=== PATIENT | female | born 1990 | race Caucasian/White ===

== ENCOUNTER 2024-09-16 15:07 | Outpatient (REF) | payer BC, SELFPAY | END 2024-09-16 15:08 | disposition home or self-care (01) | LOC: LAB 15:07 | PROVIDERS: PCP Obstetrics & Gynecology; Visit Provider Obstetrics & Gynecology | DX: Z01.419 Encounter for gynecological examination (general) (routine) without abnormal findings (principal) | CPT/HCPCS: 88175 ==

== ENCOUNTER 2024-11-08 09:55 | Outpatient (OUT) | payer BC, SELFPAY ==
--- OUTSIDE RECORDS SUMMARY | 2024-11-08 10:05 | XMS_ITS | CCD ---
Author Organization [facility] Care Team Providers Care Inpatient Pharmacist Name Role Phone Helene HAMILTON Primary Care Physician DO William Yoder Admitting Unavailable Raman Russell Attending Unavailabl e [place], DONA Nuñez Attending Unavailable SIDELL, DONA Nuñez Attending Unavailable FELIPE, Kuldeep Jordan Attending Unavailable SPETTEL, Helene Granados Attending Unavailable SPETTEL, Helene Granados Attending Unavailable SPETTEL, Helene Granados Attending Unavailable SPETTEL, Helene Granados Attending Unavailable SPETTEL, Helene Granados Admitting Unavailable SPETTEL, Helene Granados Consulting Unavailable SPETTEL, Helene Granados Attending Unavailable REFERRAL, SELF Referring Unavailable SPETTEL, LAND RECLAMATION SPECIALIST Helene Granados Consulting Unavaila ble SPETTEL, Helene Granados Consulting Unavailable SPETTEL, Helene Granados Consulting Unavailable SPETTEL, Helene Granados Consulting Unavailable SPETTEL, Helene Granados Consulting Unavailable SPETTEL, Helene Granados Consulting Unavailable SPETTEL, Helene Grnaados Consulting Unavailable SPETTEL, Helene Granados Consulting Unavailable Unavailable Primary Care Provider UnavailMIK Geller Attending Unavailable MIK BORREGO Attending Unavailable Allergies Allergy Classification Reported Allergen(s) Allergy Type Date of Onset Reaction(s) Facility (12 sources) metFORMIN; Translations: [metformin] Drug Allergy 05-06-20 24 Rhabdomyolysis (disorder) [facility] (11 sources) Phentermine; Translations: [phentermine] Drug Allergy 09-16-20 24 Dyspnea (finding), Weal (disorder), Shortness of breath [facility] (1 source) No Known Medication Allergies; Translations: [No Known Medication Allergies] Propensity to adverse reactions (disorder) [facility] Repository (5 sources) dulaglutide Drug Allergy 05-06-20 Hives [facility] (5 sources) Sulfites Propensity to adverse reactions 05-06-20 [facility] (4 sources) metFORMIN Drug Allergy 09-16-20 [facility] Medications Current Medications Medication Drug Class(es) Dates Sig (Normalized) Sig (Original) [id number] 200 actuat albuterol 0.09 mg/actuat metered dose inhaler (8 sources) beta2-Adrenergic Agonist Start: 04-04-2024 albuterol HFA 90 mcg/act inhaler 04/04/2024 Active Start: 10-19-2021 take 1 dose by inhal ation every four hours ProAir HFA 90 mcg/inh inhalation aerosol 2 puff(s), Inhalation, q4hr for wheezing, 1 EA, Refill(s) 11, [facility] #[id number], 170, cm, 07/13/21 9:30:00 EDT, Height/Length Dosing, 88.5, kg, 07/13/21 9:30:00 EDT, Weight Dosing Start Date: 10/19/21 Status: Ordered albuterol HFA 90 mcg/inh MDI (2 sources) Start: 10-03-2022 take 2 puff(s) by inhalation every six hours for wheezing albuterol HFA 90 mcg/inh MDI 2 puff(s), Inhalation, q6hr for wheezing, 18 gram, Refill(s) 0, [facility] #[id number], 170, cm, 05/17/22 11:42:00 EDT, Height/Length Dosing, 95.1, kg, 05/17/22 11:42:00 EDT, Weight Dosing Start Date: 10/03/22 Status: Ordered Susy 24 Hour (6 sources) Start: 03-16-2021 Susy 24 Jennifer r See Instructions, 1 tab daily, Refills(s) 0 Start Date: 03/16/21 Status: Ordered 24 hr buPROPion hydrochloride 150 mg extended release oral tablet (6 sources) Aminoketone Start: 06-20-2022 take 1 tablet by mouth every twenty-four hours Wellbutrin XL 150 mg/24 hours Tab-ER 150 mg = 1 tab(s), Oral, q24hr, # 90 tab(s), Refills(s) 1, Pharmacy: [facility] #[id number], 170, cm, 05/17/22 11:42:00 EDT, Height/Length Dosing, 95.1, kg, 05/17/22 11:42:00 EDT, Weight Dosing Start Date: 06/20/22 Status: Ordered Start: 03-08-2022 take 1 tablet by volodymyr th every twenty-four hours Wellbutrin XL 150 mg/24 hours Tab-ER 150 mg = 1 tab(s), Oral, q24hr, # 30 tab(s), Refills(s) 2, Pharmacy: [facility] #[id number], 170, cm, 03/08/22 10:25:00 EDT, Height/Length Dosing, 98.4, kg, 03/08/22 10:25:00 EDT, Weight Dosing Start Date: 03/08/22 Status: Ordered Start: 03-08-2022 take 1 tablet by volodymyr th every twenty-four hours Wellbutrin XL 150 mg/24 hours Tab-ER 150 mg = 1 tab(s), Oral, q24hr, # 30 tab(s), Refills(s) 2, Pharmacy: [facility] #[id number], 170, cm, 03/08/22 10:25:00 EDT, Height/Length Dosing, 98.4, kg, 03/08/22 10:25:00 EDT, Weight Dosing Start Date: 03/08/22 Status: Ordered cetirizine hydrochloride 10 mg oral tablet (5 sources) Histamine-1 Receptor Antagonist cetirizine (ZyrTEC) 10 MG tablet Take by mouth Active melatonin 1 mg oral tablet (9 sources) Start: 0 take 1 tablet by mouth once daily at bedtime as needed melatonin 1 mg oral tablet 1 mg = 1 tab(s), Oral, Once a day (at bedtime), PRN for insomnia, # 90 tab(s), Refills(s) 0 Start Date: 10/20/20 Status: Ordered End: 09-16-2024 melatonin 5 MG tablet Take b y mouth 09/16/2024 Discontinued (Other) montelukast 10 mg oral tablet (6 sources) Leukotriene Receptor Antagonist Start: 10-03-2022 take 1 tablet by mouth once daily in the evening Singulair 10 mg Tab 10 mg = 1 tab(s), Oral, qPM, # 90 tab(s), Refills(s) 3, Pharmacy: [facility] #[id number], 170, cm, 05/17/22 11:42:00 EDT, Height/Length Dosing, 95.1, kg, 05/17/22 11:42:00 EDT, Weight Dosing Start Date: 10/03/22 Status: Ordered Start: 06-22-2021 take 1 tablet by volodymyr th once daily in the evening Singulair 10 mg Tab 10 mg = 1 tab(s), Oral, qPM, # 90 tab(s), Refills(s) 3, Pharmacy: [facility], 170, cm, 04/06/21 9:19:00 EDT, Height/Length Dosing, 90, kg, 04/06/21 9:19:00 EDT, Weight Dosing Start Date: 06/22/21 Status: Ordered naltrexone hydrochloride 50 mg oral tablet (5 sources) Opioid Antagonist Start: 04-12-2022 take 1 tablet by mouth once daily naltrexone 50 mg oral tablet See Instructions, 1 tablet daily, # 90 tab(s), Refills(s) 0, [id number], 170, cm, 04/12/22 11:02:00 EDT, Height/Length Dosing, 96.7, kg, 04/12/22 11:02:00 EDT, Weight Dosing Start Date: 04/12/22 Status: Ordered Non-Formulary Medication (6 sources) Start: 10-20-2020 Non-Formulary Medication Vitamin D 800 IU daily Start Date: 10/20/20 Status: Ordered Ovasitol (6 sources) Start: 10-20-2020 Ovasitol = 1 packet(s), Oral, BID, Refills(s) 0 Start Date: 10/20/20 Status: Ordered oxyCODONE hydrochloride 5 mg oral tablet (5 sources) Opioid Agonist Start: 05-12-2022 take 1 tablet by mouth every six hours as needed for pain oxyCODONE 5 mg Tab 5 mg = 1 tab(s), Oral, q6hr, PRN for pain, # 10 tab(s), Refills(s) 0, Pharmacy: [facility] #[id number], 170, cm, 05/11/22 22:56:00 EDT, Height/Length Dosing, 89, kg, 05/11/22 22:56:00 EDT, Weight Dosing Start Date: 05/12/22 Status: Ordered phentermine hydrochloride 37.5 mg oral tablet (1 source) Sympathomimetic Amine Anorectic Start: 03-08-2022 take 1 tablet by mouth once daily Adipex-P 37.5 mg Tab 37.5 mg = 1 tab(s), Oral, Daily, Adipex #1; OARRS reviewed; 30 days supply; DX E66.9, # 30 tab(s), Refills(s) 0, Pharmacy: [facility] #[id number], 170, cm, 03/08/22 10:25:00 EDT, Height/Length Dosing, 98.4, kg, 03/08/22 10:25:00 EDT, Weight Dosing Start Date: 03/08/22 Status: Ordered propranolol hydrochloride 40 mg oral tablet (2 sources) beta-Adrenergic Berto Start: 10-03-2022 propranolol 40 mg Tab Refills(s) 0 Start Date: 10/03/22 Status: Ordered 0.25 mg, 0.5 mg dose 1.5 ml semaglutide 1.34 mg/ml pen injector (5 sources) Start: 05-12-2022 inject 0.5 mg by subcutaneous injection every week Ozempic 2 mg/1.5 mL (0.25 mg or 0.5 mg dose) subcutaneous solution 0.5 mg, SubCutaneous, qWeek, 1 EA, Refill(s) 5, [id number], 170, cm, 05/11/22 22:56:00 EDT, Height/Length Dosing, 89, kg, 05/11/22 22:56:00 EDT, Weight Dosing Start Date: 05/12/22 Status: Ordered spironolactone 25 mg oral tablet (6 sources) Aldosterone Antagonist Start: 06-22-2021 take 1 tablet by mouth twice daily spironolactone 25 mg Tab 25 mg = 1 tab(s), Oral, BID, # 180 tab(s), Refills(s) 3, Pharmacy: [facility], 170, cm, 04/06/21 9:19:00 EDT, Height/Length Dosing, 90, kg, 04/06/21 9:19:00 EDT, Weight Dosing Start Date: 06/22/21 Status: Ordered valACYclovir 1000 mg oral tablet (6 sources) Herpesvirus Nucleoside Analog DNA Polymerase Inhibitor, Herpes Simplex Virus Nucleoside Analog DNA Polymerase Inhibitor, Herpes Zoster Virus Nucleoside Analog DNA Polymerase Inhibitor Start: 11-03-2020 take 1 tablet by mouth twice daily, then take 1 tablet by mouth every twelve hours Valtrex 1 g Tab 1 gm = 1 tab(s), Oral, BID, Take one at the start of cold sore and repeat in 12 hours, # 4 tab(s), Refills(s) 1, Pharmacy: [facility], 170, cm, 11/03/20 13:01:00 EST, Height/Length Dosing, 94.7, kg, 11/03/20 13:01:00 EST, Brandon... Start Date: 11/03/20 Status: Ordered Start: 11-03-2020 take 1 tablet by volodymyr th twice daily, then take 1 tablet by mouth every twelve hours Valtrex 1 g Tab 1 gm = 1 tab(s), Oral, BID, Take one at the start of cold sore and repeat in 12 hours, # 4 tab(s), Refills(s) 1, Pharmacy: [facility], 170, cm, 11/03/20 13:01:00 EST, Height/Length Dosing, 94.7, kg, 11/03/20 13:01:00 EST, Brandon... Start Date: 11/03/20 Status: Ordered Ventolin HFA 90 mcg/inh Aerosol (4 sources) Start: 10-18-2021 take 1 puff(s) by inhalation once for wheezing Ventolin HFA 90 mcg/inh Aerosol 1 puff(s), Inhalation, Once for wheezing, 6.7 gm, Refill(s) 2, [facility] #[id number], 170, cm, 07/13/21 9:30:00 EDT, Height/Length Dosing, 88.5, kg, 07/13/21 9:30:00 EDT, Weight Dosing Start Date: 10/18/21 Status: Ordered Vitamin B Complex oral tablet (6 sources) Start: 10-20-2020 take 1 tablet by mouth once daily Vitamin B Complex oral tablet 1 tab(s), Oral, Daily, Refill(s) 0 Start Date: 10/20/20 Status: Ordered Zofran ODT 4 mg Tab-Dis (6 sources) Start: 05-12-2022 take 1 tablet by mouth every eight hours as needed for nausea Zofran ODT 4 mg Tab-Dis 4 mg = 1 tab(s), Oral, q8hr, PRN Nausea/Vomiting, # 30 tab(s), Refills(s) 1, Pharmacy: [facility] #[id number], 170, cm, 05/11/22 22:56:00 EDT, Height/Length Dosing, 89, kg, 05/11/22 22:56:00 EDT, Weight Dosing Start Date: 05/12/22 Status: Ordered Start: 12-22-2021 take 1 tablet by volodymyr th every eight hours as needed for nausea Zofran ODT 4 mg Tab-Dis 4 mg = 1 tab(s), Oral, q8hr, PRN Nausea/Vomiting, # 12 tab(s), Refills(s) 0, Pharmacy: [facility] #[id number], 170, cm, 12/22/21 7:22:00 EST, Height/Length Dosing, 93.3, kg, 12/22/21 7:22:00 EST, Weight Dosing Start Date: 12/22/21 Status: Ordered Completed/Discontinued Medications Medication Drug Class(es) Dates Sig (Normalized) Sig (Original) ALPRAZolam 0.5 mg oral tablet (3 sources) Benzodiazepine Start: 04-30-2024 End: 09-16-2024 ALPRAZolam (Xanax) 0.5 MG tablet every 12 (twelve) hours 04/30/2024 09/16/2024 Discontinued (Other) fluconazole 150 mg oral tablet (4 sources) Azole Antifungal Start: 07-03-2022 Diflucan 150 mg Tab 150 mg = 1 tab(s), Oral, Once, Take 1 tab PO x 1 dose, may repeat in 72 hours for persistent symptoms, # 2 tab(s), Refills(s) 0, Prophylaxis, Pharmacy: [facility] #[id number], 170, cm, 05/17/22 11:42:00 EDT, Height/Length Dosing, 95.1, kg, ... Start Date: 07/03/22 Status: Ordered Inositol-D Chiro-Inositol (OVASITOL PO) (3 sources) End: 09-16-2024 Inositol-D Chiro-Inositol (OVASITOL PO) Take by mouth 09/16/2024 Discontinued (Other) Inositol-D Chiro -Inositol (OVASITOL PO) Take by mouth Active lisdexamfetamine dimesylate 50 mg oral capsule (5 sources) Central Nervous System Stimulant Start: 04-22-2024 End: 09-16-2024 take 1 capsule by mouth once daily Vyvanse 50 MG capsule Take 50 mg by mouth 1 (one) time each day at the same time 04/22/2024 09/16/2024 Discontinued (Other) Start: 10-03-2022 take 1 capsule by mo ut once daily in the morning Vyvanse 50 mg oral capsule 50 mg, 1 cap(s), Oral, qAM, Refill(s) 0 Start Date: 10/03/22 Status: Ordered ProAir HFA 90 mcg/inh inhalation aerosol (1 source) Start: 10-19-2021 take 1 dose by inhalation every four hours ProAir HFA 90 mcg/inh inhalation aerosol 2 puff(s), Inhalation, q4hr for wheezing, 1 EA, Refill(s) [address] [place] [address] [facility] #[id number], 170, cm, 07/13/21 9:30:00 EDT, Height/Length Dosing, 88.5, kg, 07/13/21 9:30:00 EDT, Weight Dosing Start Date: 10/19/21 Status: Ordered Problems Active Problems Problem Classification Problem Date Documented Date Episodic/Chronic Abdominal pain (4 sources) Abdominal pain; Translations: [Unspecified abdominal pain] Onset: 05-12-2022 Episodic Administrative/social admission (1 source) Patient encounter status; Translations: [Persons encountering health services in other specified circumstances] Onset: 03-08-2022 Episodic Allergic reactions (20 sources) Allergic condition; Translations: [Hypersensitivity disposition] 04-06-2021 Episodic Anxiety disorders (6 sources) Anxiety 10-20-2020 Chronic Diabetes mellitus without complication (6 sources) Prediabetes 11-03-2020 Episodic Diseases of white blood cells (1 source) Leukocytosis; Translations: [Elevated white blood cell count, unspecified] Onset: 05-12-2022 Chronic Disorders of lipid metabolism (6 sources) Hyperlipidemia 11-03-2020 Chronic Menstrual disorders (4 sources) Secondary dysmenorrhea; 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] Onset: 10-03-2022 10-03-2022 Chronic Mood disorders (6 sources) Depressive disorder 10-20-2020 Chronic Nausea and vomiting (3 sources) Nausea and vomiting; Translations: [Nausea with vomiting, unspecified] Onset: 10-03-2022 10-03-2022 Episodic Nutritional deficiencies (6 sources) Vitamin D deficiency 01-28-2021 Chronic Other aftercare (1 source) Long-term current use of drug therapy; Translations: [Other mcfp (current) drug therapy] Onset: 03-08-2022 Episodic Other aftercare (4 sources) Postoperative visit 05-17-2022 Episodic Other endocrine disorders (8 sources) Polycystic ovary syndrome; Translations: [Polycystic ovarian syndrome] Onset: 03-08-2022 Chronic Other endocrine disorders (6 sources) Polycystic ovaries 06-19-2019 Chronic Other nutritional; endocrine; and metabolic disorders (1 source) Obese class I; Translations: [Body mass index (BMI) 34.0-34.9, adult] Onset: 03-08-2022 Chronic Other nutritional; endocrine; and metabolic disorders (20 sources) Obesity; Translations: [Obesity, unspecified] Onset: 03-08-2022 Chronic Other nutritional; endocrine; and metabolic disorders (20 sources) Body mass index 30+ - obesity 11-03-2020 Chronic Other and delivery including normal (2 sources) ; Translations: [Encounter for supervision of normal , unspecified, unspecified trimester] 10-24-2024 Episodic Residual codes; unclassified (1 source) Gestation period, 7 weeks; Translations: [Less than 8 weeks gestation of ] 10-24-2024 Episodic Unclassified (6 sources) Drug therapy finding 11-03-2020 Unclassified (6 sources) Patient encounter status 11-03-2020 Viral infection (6 sources) 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 Episodic Past or Other Problems Problem Classification Problem Date Documented Da te Episodic/Chronic Viral infection (1 source) Disease caused by 2019-nCoV; Translations: [COVID-19] Results Test Name Value Interpretation Reference Range Facility HCG ( test) Ql (U)o n 10-24-2024 Interpretation and review of laboratory results Abnormal [facility] Preg Test, Ur Positive Negative formerly [facility] OB TRANSVAGINALon 025 US OB TRANSVAGINAL TITLE OF EXAM: US OB TRANSVAGINAL REASON FOR EXAM: Dating TECHNIQUE: Grayscale, color, and M-mode spectral Doppler evaluation of the pelvis/fetus. COMPARISON: None. PATIENT : 1990 PREGNANCIES: : 1, Para: 0, Aborta: 0 LMP: 08/23/2024 VIJAYA by LMP: 05/30/2025 GA by LMP: 8 weeks, 6 days FINDINGS: AUA: 7 weeks, 0 days (+/-4 days) VIJAYA by US: 06/12/2025 Uterus: There is a gestational sac and 0.3 cm yolk sac within the uterine body/fundus. Live embryo within the gestational sac without evident abnormality. Gestational sac measures 2.4 x 1.7 x 2.5 cm (6 weeks, 5 days). Cuevitas rump length is 0.9 cm (7 weeks, 0 days). heart rate is 166 bpm. No appreciable subchorionic hemorrhage or other abnormality. Cervical length 4.7 cm. No evidence of cervical funneling. Right ovary: 3.3 x 2.2 x 3.1 cm (volume 12.2 mL). Present color flow. No appreciable nodule/mass. Left ovary: 4.3 x 3.6 x 4.3 cm (volume of 34.4 mL). Present color flow. Anechoic, avascular, thin-walled cyst measures 3.2 x 2.6 x 2.7 cm. IMPRESSION: 1. Single live intrauterine gestation sonographically measuring 7 weeks, 0 days. No appreciable abnormality. 2. Benign-appearing left ovarian cyst, 3.2 cm. DICTATED ON: 10/24/2024 2:36 PM This report has been electronically signed and approved by the interpreting radiologist. Normal Not Available Urinalysis macro (dipstick) panel (U)on 10-24-2024 Bilirubin, UA Negative Negative - 4(70) +++ mg/dL [facility] Blood, UA Negative Negative - 50 Albin/mcL [facility] Clarity, UA Clear [facility] Color, UA Yellow [facility] Glucose, UA Negative Negative - 1999(110) ++++ mg/dL [facility] Interpretation and review of laboratory results Normal [facility] Ketones, UA Negative Negative - 160(16) ++++ mg/dL [facility] Leukocytes, UA Negative Negative - 500+++ Jack/mcL [facility] Nitrite, UA Negative Negative - Positive [facility] pH, UA 6 5 - 9 [facility] Protein, UA Negative Negative - 1999(20) ++++ mg/dL [facility] Spec Grav, UA 1.015 1 - 1.03 [facility] Urobilinogen, UA 0.2 0.2 - 12 mg/dL [facility] IGP,APTIMA HPV,AGE GDLNon AGE GDLN ACOG TESTING Note . [facility] Comment on above: TESTS RESULT FLAG UN ITS REF RANGE LAB Clinician Provided Cytology Information Source.............Cervix No. of containers..01 ThinPrep Vial Age Algo ACOG Yumiko... 30-65 01 FLAG LEGEND: L-Low Normal,H-High Normal,LL-Alert Low,HH-Alert High <-Panic Low,>-Panic High,A-Abnormal,AA-Critical Abnormal Performed at: 01 =[address] [address] Nina Julien MD, HPV APTIMA Negative Negative [facility] Comment on above: This nucleic acid am plification test detects fourteen high- risk HPV types (16,18,31,33,35,39,45,51,52,56,58,59,66,68) without differentiation. Performed at: = - [facility] [id number] Automation Machine Builder: Nina Julien MD, Phone: [phone] Performed at: - [facility] [id number] Automation Machine Builder: Nina Julien MD, Phone: [phone] IGP, APTIMA HPV, RFX 16/18,45 Note . [facility] Comment on above: TESTS RESULT FLAG UN ITS REF RANGE LAB DIAGNOSIS: 02 NEGATIVE FOR INTRAEPITHELIAL LESION OR MALIGNANCY. THIS SPECIMEN WAS RESCREENED PART OF OUR SPIN INSTRUCTOR PROGRAM. Specimen adequacy: 02 Satisfactory for evaluation. Endocervical and/or squamous metaplastic cells (endocervical component) are present. Performed by: Fazal Collins, Waste Reduction Coordinator (ASCP) QC reviewed by: Fazal Coyne, Waste Reduction Coordinator (ASCP) . 02 Note: Note 02 The Pap smear is a screening test designed to aid in the detection of premalignant and malignant conditions of the uterine cervix. It is not a diagnostic procedure and should not be used as the sole means of detecting cervical cancer. Both false-positive and false-negative reports do occur. Test Methodology: Note 02 This liquid based ThinPrep(R) pap test was screened with the use of an image guided system. HPV Genotype Reflex Note 02 Criteria not met, HPV Genotype not performed. FLAG LEGEND: L-Low Normal,H-High Normal,LL-Alert Low,HH-Alert High <-Panic Low,>-Panic High,A-Abnormal,AA-Critical Abnormal Performed at: [address] [address] Nina Julien MD, SWAB-SPATULA CERVIX [facility] Pre-Certification Formon Pre-Certification Form [id number] #1.00CD:127 [facility] Pre-Certification Formon Pre-Certification Form [id number] #1.00CD:127 [facility] Pre-Certification Formon Pre-Certification Form [id number] #1.00CD:127 [facility] Pre-Certification Formon Pre-Certification Form [id number] #1.00CD:127 [facility] Medicine Video Visit - Telehealth 10-20-2022 Family Medicine Video Visit - Telehealth [facility] Staff Julissa is a 31 year old female who presents for History of Present Illness Julissa Weems presents today via telehealth video visit to discuss FMLA paperwork as patient does have chronic history of PCOS, has been having intermittent issues with severe dysmenorrhea and pelvic pain that occurs intermittently with her cycle. Patient has been to the ER on multiple occasions for symptoms and has been treated for her pain and is also had imaging that demonstrated ovarian cyst. She also does experience nausea and vomiting and at times abdominal pain with her symptoms. During these times of exacerbation with severe pain, patient has been required to miss multiple days of work which will require her to have FMLA paperwork filled out. Patient denies any symptoms or concerns today. Her last episode/flareup with pelvic pain/dysmenorrhea with PCOS was 09/27/2022 through 09/28/2022. Patient was able to return to work after using over the counter NSAIDs and resting for pain control on 09/29/2022. Patient denies any other symptoms or concerns during video visit today. I have reviewed and verified the staff HPI to be accurate for this encounter. Review of Systems Constitutional: No fever, no chills, no sweats, no weakness Skin: No rash, no lesions, no petechiae Respiratory: No chest discomfort, no shortness of breath, no cough, no orthopnea, no wheezing Cardiovascular: No chest pain no, no palpitations, no edema Gastrointestinal: Positive for dysmenorrhea/abdomin al pain/cramping, nausea and vomiting with flareups of exacerbations of PCOS . Genitourinary: No dysuria, no hematuria, no discharge, no urinary frequency, no urinary urgency Musculoskeletal: No back pain, no trauma Neurologic: No headache, no dizziness, no numbness/tingling, no weakness Physical Exam General: Well developed, well nourished, in no acute distress Lungs: No respiratory distress. No conversational dyspnea. Normal respiratory rate and effort with no accessory muscle usage. Mental Status: Alert and oriented x3. Normal mood and affect Assessment/Plan 1. PCOS Continue on all medications as prescribed. We will fill out patient's FMLA paperwork for acute flareups of PCOS with symptoms of secondary dysmenorrhea/pelvic pain and persistent nausea and vomiting during these times. Not currently having the symptoms. Return to work on 09/29/2022. We will continue to monitor and notify provider when and if symptoms return. Patient verbalized understanding of treatment plan. Denies any further questions or concerns. 2. Dysmenorrhea See treatment plan above. 3. Pelvic pain in female See treatment plan above. 4. Nausea and vomiting in adult See treatment plan above. ATTESTATION Documentation services were performed after patient or guardian consented to allow Keren Ángel Causey to record this visit. MEERA diagnostic sales specialist and provider reviewed before signing. MEERA: Rocío Garza Follow-up No qualifying data available Problem List/Past Medical History Ongoing Adult BMI 32.0-32.9 kg/sq m Allergies Anxiety Body mass index 32.0-32.9, adult Cold sore Depression Encounter for weight management High risk medication use History of appendectomy Hives Hyperlipidemia Hypersensitivity Nausea and vomiting in adult Obesity PCOS (polycystic ovarian syndrome) Pelvic pain in female Postoperative visit Prediabetes Secondary dysmenorrhea Urticaria multiforme Vitamin D deficiency Historical Adult BMI 30.0-30.9 kg/sq m Adult BMI 31.0-31.9 kg/sq m Adult BMI 33.0-33.9 kg/sq m Adult BMI 34.0-34.9 kg/sq m Body mass index 34.0-34.9, adult Class 1 obesity with body mass index (BMI) of 30.0 to 30.9 in adult Class 1 obesity with body mass index (BMI) of 31.0 to 31.9 in adult Class 1 obesity with body mass index (BMI) of 32.0 to 32.9 in adult Class 1 obesity with body mass index (BMI) of 33.0 to 33.9 in adult PCOS - Polycystic ovarian syndrome Procedure/Surgical History Laparoscopic appendectomy (05/12/2022), None. Medications albuterol HFA 90 mcg/inh MDI, 2 puff(s), Inhalation, q6hr, PRN Susy 24 Hour, See Instructions Diflucan 150 mg Tab, 150 mg= 1 tab(s), Oral, Once, Not taking melatonin 1 mg oral tablet, 1 mg= 1 tab(s), Oral, Once a day (at bedtime), PRN naltrexone 50 mg oral tablet, See Instructions, Not taking Non-Formulary Medication Ovasitol, 1 packet(s), Oral, BID, Not taking oxyCODONE 5 mg Tab, 5 mg= 1 tab(s), Oral, q6hr, PRN, Not taking Ozempic 2 mg/1.5 mL (0.25 mg or 0.5 mg dose) subcutaneous solution, 0.5 mg, SubCutaneous, qWeek, 5 refills, Not taking propranolol 40 mg Tab Singulair 10 mg Tab, 10 mg= 1 tab(s), Oral, qPM, 3 refills spironolactone 25 mg Tab, 25 mg= 1 tab(s), Oral, BID, 3 refills Valtrex 1 g Tab, 1 gm= 1 tab(s), Oral, BID, 1 refills Vitamin B Complex oral tablet, 1 tab(s), Oral, Daily Vyvanse 50 mg oral capsule, 50 mg= 1 cap(s), Oral, qAM Wellbutrin XL 150 mg/24 hours Tab-ER, 150 mg= 1 t (more content not included)... Normal [facility] Comment on above: Result Comment: Elec tronically Signed By: WASHINGTON CONNER, DONA Nuñez\.br\Date and Time Signed: 10/19/22 22:08 EST [employer] 10-10-2022 Forms [id number] #[id number] Normal [facility] Ambulatory Visit Summaryon 1 12-04-2021 Ambulatory Visit Summary JULISSA WEEMS :1990 Visit Date:10/03/2022 Ambulatory Visit Instructions Your Diagnosis PCOS (polycystic ovarian syndrome) Your Care Team Attending Physician - DONA DELAROSA CNP Primary Care Physician - Helene HAMILTON CNP This Is Your Medications List albuterol (albuterol HFA 90 mcg/inh MDI) Contact prescribing physician if questions or concerns Non-Formulary Medication buPROPion (Wellbutrin XL 150 mg/24 hours Tab-ER) fexofenadine (Susy 24 Hour) fluconazole (Diflucan 150 mg Tab) inositol (Ovasitol) lisdexamfetamine (Vyvanse 50 mg oral capsule) melatonin (melatonin 1 mg oral tablet) montelukast (Singulair 10 mg Tab) multivitamin (Vitamin B Complex oral tablet) naltrexone (naltrexone 50 mg oral tablet) ondansetron (Zofran ODT 4 mg Tab-Dis) oxycodone (oxyCODONE 5 mg Tab) propranolol (propranolol 40 mg Tab) semaglutide (Ozempic 2 mg/1.5 mL (0.25 mg or 0.5 mg dose) subcutaneous solution) spironolactone (spironolactone 25 mg Tab) valacyclovir (Valtrex 1 g Tab) Procedures Performed Laparoscopic appendectomy (05/12/2022), None. Medications What How Much When Instructions Changed albuterol (albuterol HFA 90 mcg/ inh MDI) 2 Puffs Inhalation Every 6 hours as needed for for wheezing Pickup at [id number] Unchanged buPROPion (Wellbutrin XL 150 mg/ 24 hours Tab-ER) 1 Tablets By Mouth Every 24 hours Contact prescribing physician if questions or concerns Unchanged fexofenadine (Susy 24 Hour) See instructions 1 tab daily Contact prescribing physician if questions or concerns Unchanged fluconazole (Diflucan 150 mg Tab) 1 Tablets By Mouth Once Take 1 tab PO x 1 dose, may repeat in 72 hours for persistent symptoms Contact prescribing physician if questions or concerns Unchanged inositol (Ovasitol) 1 Packets By Mouth 2 times a day Contact prescribing physician if questions or concerns Unchanged lisdexamfetamine (Vyvanse 50 mg oral capsule) 1 Capsules By Mouth Once a day (in the morning) Contact prescribing physician if questions or concerns Unchanged melatonin (melatonin 1 mg oral tablet) 1 Tablets By Mouth Once a day (at bedtime) as needed for for insomnia Contact prescribing physician if questions or concerns Unchanged montelukast (Singulair 10 mg Tab) 1 Tablets By Mouth Once a day (in the evening) Contact prescribing physician if questions or concerns Unchanged multivitamin (Vitamin B Complex oral tablet) 1 Tablets By Mouth Every day Contact prescribing physician if questions or concerns Unchanged naltrexone (naltrexone 50 mg oral tablet) See instructions 1 tablet daily Contact prescribing physician if questions or concerns Unchanged Non-Formulary Medication Vitamin D 800 IU daily Contact prescribing physician if questions or concerns Unchanged ondansetron (Zofran ODT 4 mg Tab-Dis) 1 Tablets By Mouth Every 8 hours as needed for Nausea/Vomiting Contact prescribing physician if questions or concerns Unchanged oxycodone (oxyCODONE 5 mg Tab) 1 Tablets By Mouth Every 6 hours as needed for for pain Contact prescribing physician if questions or concerns Unchanged propranolol (propranolol 40 mg Tab) Contact prescribing physician if questions or concerns Unchanged semaglutide (Ozempic 2 mg/ 1.5 mL (0.25 mg or 0.5 mg dose) subcutaneous solution) 0.5 Milligram Subcutaneous Every week Contact prescribing physician if questions or concerns Unchanged spironolactone (spironolactone 25 mg Tab) 1 Tablets By Mouth 2 times a day Contact prescribing physician if questions or concerns Unchanged valacyclovir (Valtrex 1 g Tab) 1 Tablets By Mouth 2 times a day Take one at the start of cold sore and repeat in 12 hours Contact prescribing physician if questions or concerns Pharmacy Information [facility] #[id number]: [address] [place], [place] [id number] [phone] Allergies metFORMIN (Rhabdomyolysis) Adipex-P (Shortness of breath, Hives) Problems Ongoing - Any problem that you are currently receiving treatment for. Adult BMI 32.0-32.9 kg/sq m Allergies Anxiety Body mass index 32.0-32.9, adult Cold sore Depression Encounter for weight management High risk medication use History of appendectomy Hives Hyperlipidemia Hypersensitivity Obesity PCOS (polycystic ovarian syndrome) Postoperative visit Prediabetes Urticaria multiforme Vitamin D deficiency Historical - Any problem that you are no longer receiving treatment for. Adult BMI 30.0-30.9 kg/sq m Adult BMI 31.0-31.9 kg/sq m Adult BMI 33.0-33.9 kg/sq m Adult BMI 34.0-34.9 kg/sq m Body mass index 34.0-34.9, adult Class 1 obesity with body mass index (BMI) of 30.0 to 30.9 in adult Class 1 obesity with body mass index (BMI) of 31.0 to 31.9 in adult Class 1 obesity with body mass index (BMI) of 32.0 to 32.9 in adult Class 1 obesity with body mass index (BMI) of 33.0 to 33.9 in adult PCOS - Polycystic ovarian syndrome [facility] Patient Educationon 10-03-20 Patient Education Gastroenterology Nausea and Vomiting, Adult Nausea is the feeling that you have an upset stomach or that you are about to vomit. Vomiting is when stomach contents are thrown up and out of the mouth as a result of nausea. Vomiting can make you feel weak and cause you to become dehydrated. Dehydration can make you feel tired and thirsty, cause you to have a dry mouth, and decrease how often you urinate. Older adults and people with other diseases or a weak disease-fighting system (immune system) are at higher risk for dehydration. It is important to treat your nausea and vomiting as told by your health care provider. Follow these instructions at home: Watch your symptoms for any changes. Tell your health care provider about them. Follow these instructions to care for yourself at home. Eating and drinking ? Take an oral rehydration solution (ORS). This is a drink that is sold at pharmacies and retail stores. ? Drink clear fluids slowly and in small amounts as you are able. Clear fluids include water, ice chips, low-calorie sports drinks, and fruit juice that has water added (diluted fruit juice). ? Eat bland, jklg-ce-laccqd foods in small amounts as you are able. These foods include bananas, applesauce, rice, lean meats, toast, and crackers. ? Avoid fluids that contain a lot of sugar or caffeine, such as energy drinks, sports drinks, and soda. ? Avoid alcohol. ? Avoid spicy or fatty foods. General instructions ? Take iinb-vdf-gpwkhob and prescription medicines only as told by your health care provider. ? Drink enough fluid to keep your urine pale yellow. ? Wash your hands often using soap and water. If soap and water are not available, use hand gericare aide teacher. ? Make sure that all people in your household wash their hands well and often. ? Rest at home while you recover. ? Watch your condition for any changes. ? Breathe slowly and deeply when you feel nauseated. ? Keep all follow-up visits as told by your health care provider. This is important. Contact a health care provider if: ? Your symptoms get worse. ? You have new symptoms. ? You have a fever. ? You cannot drink fluids without vomiting. ? Your nausea does not go away after 2 days. ? You feel light-headed or dizzy. ? You have a headache. ? You have muscle cramps. ? You have a rash. ? You have pain while urinating. Get help right away if: ? You have pain in your chest, neck, arm, or jaw. ? You feel extremely weak or you faint. ? You have persistent vomiting. ? You have vomit that is bright red or looks like black coffee grounds. ? You have bloody or black stools or stools that look like tar. ? You have a severe headache, a stiff neck, or both. ? You have severe pain, cramping, or bloating in your abdomen. ? You have difficulty breathing, or you are breathing very quickly. ? Your heart is beating very quickly. ? Your skin feels cold and clammy. ? You feel confused. ? You have signs of dehydration, such as: ? Dark urine, very little urine, or no urine. ? Cracked lips. ? Dry mouth. ? Sunken eyes. ? Sleepiness. ? Weakness. These symptoms may represent a serious problem that is an emergency. Do not wait to see if the symptoms will go away. Get medical help right away. Call your local emergency services (911 in the [place] Do not drive yourself to the hospital. Summary ? Nausea is the feeling that you have an upset stomach or that you are about to vomit. As nausea gets worse, it can lead to vomiting. Vomiting can make you feel weak and cause you to become dehydrated. ? Follow instructions from your health care provider about eating and drinking to prevent dehydration. ? Take qkhb-lpa-hetzzvi and prescription medicines only as told by your health care provider. ? Contact your health care provider if your symptoms get worse, or you have new symptoms. ? Keep all follow-up visits as told by your health care provider. This is important. This information is not intended to replace advice given to you by your health care provider. Make sure you discuss any questions you have with your health care provider. Document Released: 10/09/2006 Document Revised: 01/31/2020 Document Reviewed: 03/19/2019 [employer] Patient Education ? 2019 [employer]. Obstetrics and Gynecology Dysmenorrhea Dysmenorrhea refers to cramps caused by the muscles of the uterus tightening (giuliana) during a menstrual period. Dysmenorrhea may be mild, or it may be severe enough to interfere with everyday activities for a few days each month. Primary dysmenorrhea is menstrual cramps that last a couple of days when you start having menstrual periods or soon after. This often begins after a teenager starts having her period. As a woman gets older or has a baby, the cramps will usually lessen or disappear. Secondary dysmenorrhea begins later in life and is caused by a dis (more content not included)... Normal [facility] Progress Note-Physicianon Progress Note-Physician Patient: JULISSA WEEMS Age: 31 years Sex: Female : 1990 Associated Diagnoses: None Author: Wiliam Diaz Jr., DO Postoperative Information Post Operative Note: Post Anesthesia Care Unit. Anesthetic utilized: General. Health Status Allergies: Allergic Reactions (Selected) Severity Not Documented Adipex-P- Hives and shortness of breath. Nonallergic Reactions (Selected) Severe MetFORMIN- Rhabdomyolysis. Problem list: All Problems Adult BMI 32.0-32.9 kg/sq m / SNOMED CT 994299672 / Confirmed Allergies / SNOMED CT 6110273950 / Confirmed Anxiety / SNOMED CT 62938724 / Confirmed Body mass index 32.0-32.9, adult / SNOMED CT 541861337 / Confirmed Cold sore / SNOMED CT 2873032 / Confirmed Depression / SNOMED CT 49459742 / Confirmed Encounter for weight management / SNOMED CT 922157489 / Confirmed High risk medication use / SNOMED CT 196309501 / Confirmed History of appendectomy / SNOMED CT 6402916934 / Confirmed Hives / SNOMED CT 42966470 / Confirmed Hyperlipidemia / SNOMED CT 25708070 / Confirmed Hypersensitivity / SNOMED CT 0049020354 / Confirmed Obesity / SNOMED CT 5729875432 / Confirmed PCOS (polycystic ovarian syndrome) / SNOMED CT 341844973 / Confirmed Postoperative visit / SNOMED CT 084150512 / Confirmed Prediabetes / SNOMED CT 1559552823 / Confirmed Urticaria multiforme / SNOMED CT 67646176 / Confirmed Vitamin D deficiency / SNOMED CT 73706612 / Confirmed Resolved: Adult BMI 30.0-30.9 kg/sq m / SNOMED CT 747176540 Resolved: Adult BMI 31.0-31.9 kg/sq m / SNOMED CT 172652059 Resolved: Adult BMI 33.0-33.9 kg/sq m / SNOMED CT 518214145 Resolved: Adult BMI 34.0-34.9 kg/sq m / SNOMED CT 798981657 Resolved: Body mass index 34.0-34.9, adult / SNOMED CT 866536206 Resolved: Class 1 obesity with body mass index (BMI) of 30.0 to 30.9 in adult / SNOMED CT 8361681745 Resolved: Class 1 obesity with body mass index (BMI) of 31.0 to 31.9 in adult / SNOMED CT 5046055035 Resolved: Class 1 obesity with body mass index (BMI) of 32.0 to 32.9 in adult / SNOMED CT 5640880341 Resolved: Class 1 obesity with body mass index (BMI) of 33.0 to 33.9 in adult / SNOMED CT 7319917534 Resolved: PCOS - Polycystic ovarian syndrome / SNOMED CT 250481619 Canceled: Adult BMI 37.0-37.9 kg/sq m / SNOMED CT 874306741 Physical Examination Vital Signs 05/12/2022 12:45 EDT Heart Rate Monitored 86 bpm Respiratory Rate Monitored 17 br/min Systolic Blood Pressure 123 mmHg Diastolic Blood Pressure 81 mmHg Mean Arterial Pressure, Cuff 95 mmHg SpO2 96 % 05/12/2022 12:30 EDT Heart Rate Monitored 104 bpm HI Respiratory Rate Monitored 16 br/min Systolic Blood Pressure 135 mmHg Diastolic Blood Pressure 82 mmHg Mean Arterial Pressure, Cuff 100 mmHg SpO2 99 % 05/12/2022 12:20 EDT Heart Rate Monitored 93 bpm Respiratory Rate Monitored 14 br/min Systolic Blood Pressure 134 mmHg Diastolic Blood Pressure 82 mmHg Mean Arterial Pressure, Cuff 99 mmHg SpO2 93 % 05/12/2022 12:10 EDT Heart Rate Monitored 101 bpm HI Respiratory Rate Monitored 27 br/min Systolic Blood Pressure 132 mmHg Diastolic Blood Pressure 75 mmHg Mean Arterial Pressure, Cuff 94 mmHg SpO2 87 % LOW 05/12/2022 12:05 EDT Heart Rate Monitored 116 bpm HI Respiratory Rate Monitored 19 br/min Systolic Blood Pressure 134 mmHg Diastolic Blood Pressure 72 mmHg Mean Arterial Pressure, Cuff 93 mmHg SpO2 94 % 05/12/2022 12:00 EDT Heart Rate Monitored 111 bpm HI Respiratory Rate Monitored 15 br/min Systolic Blood Pressure 129 mmHg Diastolic Blood Pressure 86 mmHg Mean Arterial Pressure, Cuff 100 mmHg SpO2 99 % 05/12/2022 11:56 EDT Temperature Axillary 36.7 DegC Heart Rate Monitored 113 bpm HI Respiratory Rate Monitored 29 br/min Systolic Blood Pressure 129 mmHg Diastolic Blood Pressure 86 mmHg Mean Arterial Pressure, Cuff 100 mmHg SpO2 98 % Pain assessment: Pain Assessment 05/12/2022 12:45 EDT Primary Pain Location Abdomen Patient Preferred Pain Tool Numeric rating Numeric Pain Scale 3 Numeric Pain Score 3 05/12/2022 12:44 EDT Primary Pain Location Abdomen Patient Preferred Pain Tool Numeric rating Numeric Pain Scale 3 Numeric Pain Score 3 05/12/2022 12:40 EDT Primary Pain Location Abdomen Patient Preferred Pain Tool Numeric rating Numeric Pain Scale 4 Numeric Pain Score 4 05/12/2022 12:36 EDT Primary Pain Location Abdomen Patient Preferred Pain Tool Numeric rating Numeric Pain Scale 7 Numeric Pain Score 7 05/12/2022 11:56 EDT Primary Pain Location Abdomen Patient Preferred Pain Tool Numeric rating Numeric Pain Scale 7 Numeric Pain Score 7 . General: Alert and oriented, No acute distress, No nausea. Adequate hydration.. Respiratory: Adequate air exchange.. Cardiovascular: stable. Neurologic: Normal sensory. Review / Management Condition: Stable. Assessment Anesthetic outcome No anesthetic complications noted. Plan Transfer/ Discharge: Cond (more content not included)... Normal [facility] Comment on above: Result Comment: Elec tronically Signed By: Wiliam Diaz Jr., DO\.aditya\Date and Time Signed: 06/06/22 16:49 EDT COVID-19 ([facility])on 06-02-2022 SARS-CoV-2 (COVID-19) RNA DANA+probe Ql (Resp) Detected Abnormal Not Detected [facility] Comment on above: Result Comment: This test result should be correlated with clinical presentations and medical history by a healthcare provider to determine its clinical significance. This assay was performed by a reverse transcriptase real-time polymerase chain reaction (rt PCR) method on the [employer] system. This test has been authorized only for the detection of nucleic acid from SARS-CoV-2, not for any other viruses or pathogens. This test has not been FDA cleared or approved. This test has been authorized by FDA under an Emergency Use Authorization (EUA). This test is only authorized for the duration of time the declaration on that circumstances exist justifying the authorization emergency use of in vitro diagnostic tests for detection and/or diagnosis of COVID-19 infection under section 564 (b) (1) of the Act, 21 U.S.C. 360 bbb-3 (b) (1), unless authorization is terminated or revoked sooner. Performed By: #### 2 [id number] ####[facility] [id number] [place] [address] SARS-CoV-2 (COVID-19) RNA DANA+probe Ql (Unsp spec) Pass Normal Pass [facility] Comment on above: Performed By: #### 2 [id number] ####[facility] [address] [place] [address] Specimen source Nom (Unsp spec) Nasal Normal [facility] Comment on above: Performed By: #### 2 [id number] ####[facility] [address] [place] [address] Coding Summary.on 06-02-2022 Coding Summary. [id number] Gh0bWw+PGhlYWQ+PE1FV OOqK80znUKyfU3KO2gPK A2IGPQKWZAJFV8GPU4my IV7XMdrO2TplfAx VifyzEJbJF81KHn9YYB0 kZyvJDdvmG8ktZNmT1e5 NfWiJX91iX84LUkqZSLb MqL7DhEuildrgBSx H4gbBoMjzZIgOby+PHRh YmxlIHdpZHRoPScxMDAl SiUmwVaiSG4kWr4yEGYj LWNvbGxhcHNlOiBj i8xfBANeMSgwZX4vtSmo W9KcsPP1CGHsa1b7Jb06 dHI+OQBwZLQ1hEjuRUek c610PdHjf5dmPFB7 aDDgULjeNKT6Y89cc3E4 PTChEAMtNEE4bQG4wI4n jBlzacuiT7UkvHMmBtL2 AOG2vQShbH7kzGvz rdbzrF2aEed+A56QJH1M ISUDCB9AFzv5E9RaKsmk dHI+HR18SFNmUM97mSEg xWExc1nsnXd6ZbNn OOXoCJD7lJjuXTrdw9Ql ZKLeY63lkGExg8M8GKGh uBsqlJHsKoLxxFT9qE7c USyjkkhah2xepnxy Wodxc7kjsg42yG35S73g PPnyCXTfCXL1RWQtVGUe bIrzuw4qxV2oOg7+IDxj m1lma4rflGn7ScTs PLNqsmBidVgrKQO9b5Mn Js17W5XorWalx9GuGti3 me72eWOca0L9oME2YYkg ZKCfcS3hHRllPlZ5 APHeAnWqmV75uAUtBOqk Zf4mbLeghLeuGA1xAZGi twjqXRShxJ0qAHTsxOOa pIfmYF6lZNIlhqer l367LmGsSDA8XXTuaLTl J3AajB4eXpEyDUWhGNEy E8WakAAoEMfpI587LQpv WvX6WDYjgtMhH2Nb IRBndEdgWsT7v2R3Ly9D k7AxtvzaONH4QNmxFPH5 QqUsTrFlYmM6R8TaWxh8 FIHmuHshKU2iK8Lp KBZmayxgyjveiGG6VYRn JCFhtC15iQVlWDnqXf1f q8M1x159NXRtZFPhhF36 Cr8vfZzkOGNatOHX cH0hrtmhf1upxkrgXtSc YLWnUNt5SLq2SVLpgNsr WiUnQWA8FdA7NZF7vCHj cJ0gjMkfdrmexV5m Oyc+F73vcU3vUJP7WJO8 osuaYMTcvbSvSS43HG43 W1WzUkhrjYFdqSL+PGRp vdKtbCqdYM2xArOo i4kto3ObYAtxC3AnTJSz CXwnFsv7DMVzPJP8oFF0 xB3oKOPjVEblf6D5dSC2 R0GnfrQgza0de2pi JNWmMFebU18cnXHzm2T3 GHCsjYP6LZAamEwzSxVv hB07Evd+YEZzcCnyk2Yw Vcyxq0hws2spmAi1 IjMwJSIgdmFsaWduPSJ0 n6ZdEn88Z58eLCwzQPOd FIMxZHNgXAGouNnhoz6x qZ2xQx5+PGNvbCB3 dYS1qS8xQQNsMmO3UOch Q432JyUpuDUoVjymr0ux l3uohBd2SvEzSGTqblZf rArpTNM6b0CbCc77 Y35fENjzHIDxQDLbDJPn BWWhuGdoja3jaM5hHc9+ BF4cc9iqmi61mT17pJQ+ YTAdHWB0oDmxPAum LUJtyG2tTYyjEmH1RAGg OoNjxO65nYBxMAhaLx6k cUbneVjpLT0eVUEoqooo v555XyZlx0gvXDGe uYFuYBkiROC2V10rp2O3 MICvAWFdTHQ7xJI7gS8w bGlnbjogbGVmdDsgdmVy fUwfUVkrNFokC690 IHRvcDsnPlBhdGllbnQg CrNcGOo1N1AyQbx3JYDt qLbcVZ0jvHGrGRueYi0m aTtzpYjdNC5vPCPm bplqv100NoJws3fpAZVk qQLeRWggQLY0R52bo6U3 VGVeROXuORH1pJA0bF7o bGlnbjogbGVmdDsg siYuhPihGLdaAYpcW966 IHRvcDsnPkJpcnRoIERh vZM5MQ20CQ70mREno8W3 cVE2M5IpXVSdifgn agldhCR7NXDmPZNidD51 Ey9jnSmvBd1pEFNsFVX0 KDDkfFKaS4VmfT4eMvQy RCHnDSUyB8HzfTXt RRglS859RXnlIoL4BZVr ejVcT6AgGLBdkPaaAeU0 n2A5Kp5TH1M9PA50PN23 hRGuf2K1yAP1R3Mp VLSiqjpjmihnwJH0HVAf QATtgA69Aa4tiBlyOv1u UFVvOKQ5SSSsbPBkH8Zt qQ4nDpUdDWUrQZIt O5JkiZBsYAftB150XVkq KaX3NMDsqcZwZ0WdULNl nTguEkJ2c6G9Lt8MTFn5 TW66VS13kCGsl7X2 dZF9Z7IcFNFrfgbhuvss vTT2NWKvCHKuhD25Oo4g jQysEy9zUBTwHLK3GJLd jWVwL4MajT8jFpZc DTVpNDPzP3WluEYcKQtl Z930PKnqSxU9ORPvbyCi H1LgYBHvuOaeNhX2i1I5 Tl6QWJPeNQ59MYM5 bTL8YB04VW43M7CbFzed dGFibGU+PHRhYmxlIHdp ZHRoPScxMDAlJyBzdHls NJ2iIs7dEORuHTWw mRednQRdOgMas1mhUFGq WNalAN6axLvlE6JxxSC4 HSZcp1e7Zx83W25uP7Ws dXA+DAYqmZX9fWP0 jA3mXkCiOtB2ADtiF890 UsRhtLEfIkfyh9vhv6yc eRr0EmU8HVEvydJopPyi PVI9x0FvQn82P96n IHdpZHRoPSIxNSUiIHZh lAjdny9yrK2eMg9+PGNv vOD9uJO2xY6cHlKjZuD5 KQwqL301UnMimNFn Fcwmv5uap8khyZq6CzNh ETGnvsQwlAysHNK9m9Qp Ra03B0VzvNiyl9ZzMzm1 ol42bUWcl2T5xSW9 D8YoOXQxxgculRUppAmu KB1pBTJxqbjcCYPgnZ3n DCPgV0d3JuSzIvL7CQhy U7QrhcE9SMCygTZj GHpfPWF5R29qs7O7RKSa FBCoJXX7xDP9hO0zsKmx bjogbGVmdDsgdmVydGlj SVduOKxeT056GECi wPduHPAlcG0xBSMmqMMr lAbhRE4jBXNjjkggZdzU P49BLRARW5mQXJtnFncb dGQ+DUFpEPC8rNbp BIdfVUPlnW6vXVTdF0u4 OfAiUnL1LNbrE9WzLOQw ywuuEd47jD1yViRcVrA0 WSyuA4ZyuyR7WVMt oWAeYTdmSUK0C22du3V4 VCFcTSOjGMI2dUF0wE0m bGlnbjogbGVmdDsgdmVy qPycURhwMGpyV392 IHRvcDsnPjAxLzIzLzE5 JXp1J9IgKhl8PRVofPjs KV4qiARbSLopOp2avOzv gCudNK7hSYFxfkny EEGedQ4iOWJxhMCaxPio FG4fIJKpplyiy886LwRv UQL8BODchAAhU1JhbT5b LkGdTZSrSJXrW7Fg mBSdUOuhX106LBkqYaK2 QBFumtGjV1CpPOIqgUgj KrN5l5B1Wf6fPqBPBWWb czwvdGQ+PHRkIHN0 zGxiWPodGPRjbV4yCKVs V7i0XoFkRwD6VPesZ6Yp CKGmqmdzYw46jT3bQjYt JiR8SEekS8ZwiuF2 LJQllOSaSMweGUL4O18h j7D7AVXuFNKhAIP3rEZ2 yN4wpNlafsijqVDizRor dmVydGljYWwtYWxp P705SOTeyPnjYtPjuJPd ZTwvdGQ+JFRfGQN9dTek XEkjONDznN5iTRZaR3d3 LgVfJxR3VEguS3Hl WRKakohxWf85bH7dDyDu JaU8TTlhT6DjvrL7ASVd hECpGNxlLJA2H98zo2S6 XYZeJAUpXTF8cVJ5 dU3wrNyibhpmaGTodQdq jnJidHbbSZckPJhcO519 IPTnkSesKnRyE7Jkprss ZzwvdGQ+HF89wb72 X3YxRmboHxx2TGOxREX4 qOU3lJ8sMACaJAedf6V7 jEG6N9RzbgIukj9vj6gz GFIiMDymS02kkGVn j9J6GZObpZD7CFKowYkz OxFzpK47Yls+PGNvbGdy i3UrXrwyt5fuh6mizJj4 IjMwJSIgdmFsaWdu ZEH2q3WvWw75M49hZLtg ZHRoPSIzMCUiIHZhbGln mw5ivE0fBt1+PGNvbCB3 rJN5fV9bBqXxBfQ1 MOyrU761ZnHpkFCaOxlx l5mes7ewpAb6CoSvLOHs wlNfuNwtGLF6n7XrLk51 U8TyuXyxw0LtQxj4 qz00kXGke2W8nVR6T1Hq YAIskyigrPHapMhbWZ3m KYLplfrtGCVwuU5fQXFv Y9a0ZyRfSmP6HEin I9VzviV1VBBtgLMuJFHy bYFZhS5ycnagg9zizfpv RdBeGWVkLZt1OBj3PXAi jObzQfUxXOK9SbR2 VYW7iXMfdR2sdEokzhig aS8uFbk+BYo2a5cpaNJt IP0qsTR4JB69JT72hFMx v5N3pMH2H9SaZDRy ellbmatzxXB7LKIvQMVq rW47Nz7pzHdmZr2iNSXx XAX6OOTjdOGkF6AcdH5e AyYtHDGyHUAqK7Nr dYOfWMahR891WBmhYoS2 TFFwzxCsY5DkTQNdbZop FiE9e1R2Pp0CTA06BW82 NF91yIDqv0K5hSI2 V1FrGBQfsdokwixftQA0 NFIrQPExbG22Eo2duCqe Pn8pRZAgJNZ0OCRogZXo P8PinF6hOfQaFGFy GMDjE3OvbQHdLGllX058 GAprNlY3OJIrfxVpO7Xf VHEifThpRoK5s8D7Hh9V Oy23RG52EI52gSHt r1F3pTE0S5BzCRGpedbz rwiusVG1IULeHHSgiY72 Hk4opDonZp1xXTPfVWR6 VVKunGZfX4CrfX5a ZhWgOTNlEDIwD5XivIYy NPudG098DNfgPsE8HOCf kgZiB0VkYHJorVxxSqV0 i4Z2Lv0VRTfyjyg7 N2LkOssqaMN+BD52SHVx KN59jYWkoEVae3kkoMv6 NtIcLLXxBLD8xVjqKFoi g0QnFGOsD04saHFm c2U6 (more content not included)... Normal [facility] COVID-19 ([facility])on 06-01-2022 ADMITTED TO INTENSIVE CARE UNIT FOR CONDITION OF INTEREST:FIND:PT: Unknown Normal [facility] Comment on above: Performed By: #### 2 [id number] ####[place] [address] EMPLOYED IN A HEALTHCARE SETTING:FIND:PT: Unknown Normal [facility] Comment on above: Performed By: #### 2 [id number] ####[place] [address] FIRST TEST FOR CONDITION OF INTEREST:FIND:PT: Unknown Normal [facility] Comment on above: Performed By: #### 2 [id number] ####[place] [address] HAS SYMPTOMS RELATED TO CONDITION OF INTEREST:FIND:PT: Unknown Normal [facility] Comment on above: Performed By: #### 2 [id number] ####[place] [address] HOSPITALIZED FOR CONDITION OF INTEREST:FIND:PT: Unknown Normal [facility] Comment on above: Performed By: #### 2 [id number] ####[place] [address] STATUS:FIND:PT: Unknown Normal [facility] Comment on above: Performed By: #### 2 [id number] ####[id number] [address] [address] RESIDES IN A CONGREGATE CARE SETTING:FIND:PT: Unknown [facility] Comment on above: Performed By: #### 2 [id number] ####[facility] [address] [place] [id number] Consent for Treatmenton 05-23 Consent for Treatment [id number]# 1.00CD:127 Normal [facility] Formson 06-01-2022 Forms [id number] #1.00CD:127 Normal [facility] IntraOperative Documentson 0 05-19-2022 IntraOperative Documents [id number] 1#1.00CD:127 Normal [facility] Family Medicine Office/Clini c Noteon 05-17-2022 Family Medicine Office/Clinic Note Chief Complaint Patient presents for [facility] paperwork for emergency Appendectomy, last . History of Present Illness Presents today for follow up of emergency appendectomy. Was taking ozempic and states that is what caused the appendicitis Surgery 05-12-22 Leave started 05-12-22 Needs to renew her [facility] paperwork Doing well - still a bit fatigued, incisions are healing well, taking pain medication and constipation meds as needed Review of Systems Constitutional: no fever, no chills Skin: two of the three incisions are healing nicely, incision below the umbilicus is red and there is some yellow tissue as well, but no drainage Respiratory: no shortness of breath at this time - did have some restricted breathing after she was extubated initially Cardiovascular: no chest pain Psychiatric: see depression screen. Physical Exam Vitals & Measurements T: 36.9 ?C(Oral) HR: 89(Peripheral) BP: 118/76 SpO2: 99% HT: 170.0 cm HT: 170 cm WT: 95.1 kg WT: 95.1 kg BMI: 32.91 General: Well developed, well nourished, in no acute distress Eyes: Conjunctivae and sclera are clear Ears: Hearing grossly normal to conversational speech Lungs: Normal respiratory effort and clear to auscultation Cardio: HRR, no murmur Musculoskeletal: Ambulates unassisted; gait steady Neurologic: Grossly normal Skin: incision below the umbilicus is a bit redder than the other two incisions which are healing well. Will send a script for prophylactic ATB she can take as needed Mental Status: Alert and oriented x3. Normal mood and affect Assessment/Plan 1. History of appendectomy (Z90.49: Acquired absence of other specified parts of digestive tract) healing nicely will obtain [facility] paperwork and get it to our office for completion She is not sure when she will RTW and will let me know what date she wants for that when she sends over the paperwork 2. Postoperative visit (Z48.89: Encounter for other specified surgical aftercare) advance diet as able enc. deep breathing 3. Adult BMI 32.0-32.9 kg/sq m (Z68.32: Body mass index [BMI] 32.0-32.9, adult) The standard range for ages 18 and older is >=18.5 and < 25 kg/m2. Your BMI today was above this range, this falls in the overweight to obese category and there are medical benefits to weight loss. We can offer counselling, referral, and/or medical support in addressing this problem. Your BMI and weight management will be followed at subsequent visits. 4. Obesity (E66.9: Obesity, unspecified) Orders: cephalexin, 500 mg = 1 cap(s), Oral, q12hr, # 20 cap(s), Refills(s) 0, Pharmacy: [id number], 170, cm, 05/17/22 11:42:00 EDT, Height/Length Dosing, 95.1, kg, 05/17/22 11:42:00 EDT, Weight Dosing Follow-up With When Contact Information Helene HAMILTON CNP Only if needed [email or web address] [address]- Additional Instructions: Patient Education BMI for Adults Incision Care, Adult Problem List/Past Medical History Ongoing Adult BMI 32.0-32.9 kg/sq m Allergies Anxiety Body mass index 32.0-32.9, adult Cold sore Depression Encounter for weight management High risk medication use History of appendectomy Hives Hyperlipidemia Hypersensitivity Obesity PCOS (polycystic ovarian syndrome) Postoperative visit Prediabetes Urticaria multiforme Vitamin D deficiency Historical Adult BMI 30.0-30.9 kg/sq m Adult BMI 31.0-31.9 kg/sq m Adult BMI 33.0-33.9 kg/sq m Adult BMI 34.0-34.9 kg/sq m Body mass index 34.0-34.9, adult Class 1 obesity with body mass index (BMI) of 30.0 to 30.9 in adult Class 1 obesity with body mass index (BMI) of 31.0 to 31.9 in adult Class 1 obesity with body mass index (BMI) of 32.0 to 32.9 in adult Class 1 obesity with body mass index (BMI) of 33.0 to 33.9 in adult PCOS - Polycystic ovarian syndrome Procedure/Surgical History Laparoscopic appendectomy (05/12/2022), None. Medications Susy 24 Hour, See Instructions Keflex 500 mg Cap, 500 mg= 1 cap(s), Oral, q12hr melatonin 1 mg oral tablet, 1 mg= 1 tab(s), Oral, Once a day (at bedtime), PRN naltrexone 50 mg oral tablet, See Instructions Non-Formulary Medication Ovasitol, 1 packet(s), Oral, BID oxyCODONE 5 mg Tab, 5 mg= 1 tab(s), Oral, q6hr, PRN Ozempic 2 mg/1.5 mL (0.25 mg or 0.5 mg dose) subcutaneous solution, 0.5 mg, SubCutaneous, qWeek, 5 refills ProAir HFA 90 mcg/inh inhalation aerosol, 2 puff(s), Inhalation, q4hr, PRN, 11 refills Singulair 10 mg Tab, 10 mg= 1 tab(s), Oral, qPM, 3 refills spironolactone 25 mg Tab, 25 mg= 1 tab(s), Oral, BID, 3 refills Valtrex 1 g Tab, 1 gm= 1 tab(s), Oral, BID, 1 refills Ventolin HFA 90 mcg/inh Aerosol, 1 puff(s), Inhalation, Once, PRN, 2 refills Vitamin B Complex oral tablet, 1 tab(s), Oral, Daily Wellbutrin XL 150 mg/24 hours Tab-ER, 150 mg= 1 tab(s), Oral, q24hr, 2 refills Zofran ODT 4 mg Tab-Dis, 4 mg= 1 tab(s), Oral, q8hr, PRN, 1 refills Allergies metFORMIN (Rhabdomyolysi (more content not included)... Normal [facility] Comment on above: Result Comment: Elec tronically Signed By: Helene HAMILTON CNP.br\Date and Time Signed: 05/17/22 12:10 EDT Main OR Intraoperative Recor don 05-17-2022 Main OR Intraoperative Record IntraOp Document Type FT Summary Primary Physician: Raman Russell DO Finalized Date/Time: 05/17/22 13:18:41 Pt. Name: JULISSA WEEMS D.O.B./Sex: 1990 Female Med Rec #: [id number] Physician: William Yoder DO Financial #: [id number] Pt. Type: E Room/Bed: [place] [address] Admit/Disch: 05/11/22 22:40:20 - 05/12/22 15:40:00 Institution: Case Times FT Entry 1 Patient Times In Room 05/12/22 10:31:00 Out Room 05/12/22 11:56:00 Procedure Times Start 05/12/22 10:51:00 Stop 05/12/22 11:52:00 Anesthesia Times Start 05/12/22 10:31:00 Stop 05/12/22 11:56:00 Last Modified By: Caitlin Harris RN 05/12/22 11:56:46 General Comments: 05/17/22 Chart opened to review and send charges LRoth CSFA Case Attendance FT Entry 1 Entry 2 Entry 3 Case Attendee Wiliam Diaz Jr., DO, DO, William Taylor Willson CST, Benjamin T Role Performed Anesthesiologist of Surgeon - Primary YOUTH SERVICES SPECIALIST/SA Record Time In 05/12/22 10:31:00 05/12/22 10:31:00 05/12/22 10:31:00 Time Out 05/12/22 11:56:00 05/12/22 11:44:00 05/12/22 11:56:00 Procedure APPENDECTOMY APPENDECTOMY APPENDECTOMY LAPAROSCOPIC(.) LAPAROSCOPIC(.) LAPAROSCOPIC(.) Comments Last Modified By: Caitlin Harris RNnd RN, Caitlin Em CST, Suha Latesha 05/12/22 11:56:57 05/12/22 11:56:57 05/17/22 13:15:43 Entry 4 Entry 5 Case Attendee Kimberly LOPEZ, Cecilia Barr Role Performed Water Inspector - Primary Scrub - Primary Time In 05/12/22 10:31:00 05/12/22 10:31:00 Time Out 05/12/22 11:56:00 05/12/22 11:56:00 Procedure APPENDECTOMY APPENDECTOMY LAPAROSCOPIC(.) LAPAROSCOPIC(.) Comments Last Modified By: Kimberly LOPEZ, Caitlin Ordonez RN 05/12/22 11:56:57 05/12/22 11:56:57 Perioperative Protocols FT Pre-Care Text: Implements protective measures prior to operative or invasive procedure, confirms identity before the operative or invasive procedure, verifies operative procedure, surgical site, and laterality Entry 1 Procedure(s) APPENDECTOMY Patient Identity Birthday, ID Band LAPAROSCOPIC(.) Verified (select at Check, Patient least 2): Participation Consents / H and P Anesthesia Consent, Operative Site N/A Verified HandP, Surgery/Procedure Marking Verified Consent, Transfusion Consent Surgical Site Yes Laterality Verified Yes Verified Procedure Verified Yes Correct Patient Yes Position Verified Availability Equipment, Medication Prep Dry Yes Verified (If Applicable) PreOp Antibiotic Yes Time Out Wiliam Diaz Jr., DO Given Participants G, Raman Russell DO, Willson CST, Juan Antonio Mario, Kimberly LOPEZ, Natalie Saucedo Heather M Time Out Complete 05/12/22 10:50:00 Outcomes Met? Yes Last Modified By: Caitlin Harris RN 05/12/22 11:04:57 Post-Care Text: The patient is free from signs and symptoms of injury caused by extraneous objects Allergy Information FT Pre-Care Text: Verifies allergies Entry 1 Allergies Reviewed? Yes Allergies Reviewed Self/Patient With Outcomes Met? Yes Last Modified By: Caitlin Harris RN 05/12/22 09:23:08 Post-Care Text: The patient received appropriate medication(s) safely administered during the perioperative period Surgical Procedures FT Entry 1 Procedure Description Procedure APPENDECTOMY Modifiers . LAPAROSCOPIC Surgeon Description LAPAROSCOPIC APPENDECTOMY Primary Procedure Yes Primary Surgeon Raman Russell DO Start 05/12/22 10:51:00 Stop 05/12/22 11:52:00 Anesthesia Type General Surgical Service General Wound Class 3 - Contaminated Last Modified By: Caitlin Harris RN 05/12/22 11:57:00 General Case Data FT Pre-Care Text: Classifies surgical wound, implements aseptic technique, initiates traffic control Entry 1 Case Information OR OR 4 FT Case Level Level 3 Wound Class 3 - Contaminated Specialty General ASA Class 2E Preop Diagnosis ACUTE APPENDICITIS Postop Same As Preop Yes Postop Diagnosis ACUTE APPENDICITIS Outcomes Met? Yes Last Modified By: Caitlin Harris RN 05/12/22 11:57:09 Post-Care Text: The patient is free from signs and symptoms of infection Skin Assessment (Pre Procedure) FT Pre-Care Text: Implements protective measures to prevent skin/ tissue injury due to thermal or mechanical sources Evaluates for signs and symptoms of physical injury to skin and tissue Entry 1 Skin Integrity Intact, [place], Warm, and Skin Abnormality No Dry Outcomes Met? Yes Last Modified By: Caitlin Harris RN 05/12/22 09:23:55 Post-Care Text: The patient is free from signs and symptoms of injury caused by extraneous objects Patient Positioning FT Pre-Care Text: Identifies physical alterations that require additional precautions for procedure-specific positioning, verifies presence of prosthetics or corrective devices, positions the patient, evaluates the patient for signs and symptoms of injury as a result of positioning Entry 1 Procedure APPENDECTOMY Body (more content not included)... Normal [facility] Patient Educationon 05-17-20 Patient Education Dermatology Incision Care, Adult An incision is a surgical cut that is made through your skin. Most incisions are closed after surgery. Your incision may be closed with stitches (sutures), alison, skin glue, or adhesive strips. You may need to return to your health care provider to have sutures or alison removed. This may occur several days to several weeks after your surgery. The incision needs to be cared for properly to prevent infection. How to care for your incision Incision care ? Follow instructions from your health care provider about how to take care of your incision. Make sure you: ? Wash your hands with soap and water before you change the bandage (dressing). If soap and water are not available, use hand gericare aide teacher. ? Change your dressing as told by your health care provider. ? Leave sutures, skin glue, or adhesive strips in place. These skin closures may need to stay in place for 2 weeks or longer. If adhesive strip edges start to loosen and curl up, you may trim the loose edges. Do not remove adhesive strips completely unless your health care provider tells you to do that. ? Check your incision area every day for signs of infection. Check for: ? More redness, swelling, or pain. ? More fluid or blood. ? Warmth. ? Pus or a bad smell. ? Ask your health care provider how to clean the incision. This may include: ? Using mild soap and water. ? Using a clean towel to pat the incision dry after cleaning it. ? Applying a cream or ointment. Do this only as told by your health care provider. ? Covering the incision with a clean dressing. ? Ask your health care provider when you can leave the incision uncovered. ? Do not take baths, swim, or use a hot tub until your health care provider approves. Ask your health care provider if you can take showers. You may only be allowed to take sponge baths for bathing. Medicines ? If you were prescribed an antibiotic medicine, cream, or ointment, take or apply the antibiotic as told by your health care provider. Do not stop taking or applying the antibiotic even if your condition improves. ? Take npsj-eka-acoxuzv and prescription medicines only as told by your health care provider. General instructions ? Limit movement around your incision to improve healing. ? Avoid straining, lifting, or exercise for the first month, or for as long as told by your health care provider. ? Follow instructions from your health care provider about returning to your normal activities. ? Ask your health care provider what activities are safe. ? Protect your incision from the sun when you are outside for the first 6 months, or for as long as told by your health care provider. Apply sunscreen around the scar or cover it up. ? Keep all follow-up visits as told by your health care provider. This is important. Contact a health care provider if: ? Your have more redness, swelling, or pain around the incision. ? You have more fluid or blood coming from the incision. ? Your incision feels warm to the touch. ? You have pus or a bad smell coming from the incision. ? You have a fever or shaking chills. ? You are nauseous or you vomit. ? You are dizzy. ? Your sutures or alison come undone. Get help right away if: ? You have a red streak coming from your incision. ? Your incision bleeds through the dressing and the bleeding does not stop with gentle pressure. ? The edges of your incision open up and separate. ? You have severe pain. ? You have a rash. ? You are confused. ? You faint. ? You have trouble breathing and a fast heartbeat. This information is not intended to replace advice given to you by your health care provider. Make sure you discuss any questions you have with your health care provider. Document Released: 04/28/2006 Document Revised: 10/11/2019 Document Reviewed: 04/26/2017 [employer] Patient Education ? 2020 Badge. Nutrition BMI for Adults Body mass index (BMI) is a number that is calculated from a person's weight and height. BMI may help to estimate how much of a person's weight is composed of fat. BMI can help identify those who may be at higher risk for certain medical problems. How is BMI used with adults? BMI is used as a screening tool to identify possible weight problems. It is used to check whether a person is obese, overweight, healthy weight, or underweight. How is BMI calculated? BMI measures your weight and compares it to your height. This can be done either in [place] or metric measurements. Note that charts are available to help you find your BMI quickly and easily without having to do these calculations yourself. To calculate your BMI in [place] measurements, your health care provider will: 1. Measure your weight in pounds (lb). 2. Multiply the number of pounds by 703. ? For example, for a person who weighs 180 lb, multiply that number by 703, which equals (more content not included)... Normal [facility] Coding Summary.on 05-14-2022 Coding Summary. CD:[id number] Gh0bWw+PGhlYWQ+PE1FV ZEiF63gzPJqsZ2IT5gAH C0OLYXXYRXQRB6LPG7dg OZ0NDuoL8KtkaFm MlgxdHNsAJ08XVc9HUH8 yQpvELeohO8epCUlN6j6 GsLmZG77fW77EFnqCOKe XbG6JwQxgkhbnMBz S6lcFwNztNRaCrf+PHRh YmxlIHdpZHRoPScxMDAl GgRtiIdzEB9bXz4vOXGg LWNvbGxhcHNlOiBj j6utHFYuUHdsOG3fbXyl C6DloXY6KHIxy3w4Ae06 dHI+VVEoEOK8kQtwPLmk y777WwMah1khABV9 zMPpODmoCCD1U81pf7N3 CQMpSOPtTIQ3sZK9kF8l hJaopkltT8LuwJRaUlL6 UFS6kSUvpP1ntYpe kqfcaV7dNtb+H46TRU9B DYJCEI8KBzs5W2HcDbqk dHI+NL40QTJsGW04hARf kMTnt8obsKb4ZeMw CCUcIMO2nNgaFJofo5Ex ZVMyA25cuSKkb6S7HIXh yRtcvJHiZtCqoNC1hO2g MXuenllix0ffiuoi Hemkb8zynq53bQ16N42x MRnzMJHnPBP6SFQiGEZm lJfeec3gcI6dIe2+IDxj h6tcg4fefXo8RmHk IOPmqmQabXkjAQL6t0Qw Wf07E2CrhTgch6HaSsl3 ry98uTWqs0L2lXQ5ITyp WMXgoD6gDUujCtW4 DUIaObWxjX03oGHwFDvz Qv2efOmegYtwHX5bGPKu vgktJWWwdP1tPNYarEAr aFkpET0aSCIrbuzl u845IuYvNTB4PPTruRBb H4EciY3eClJvWUHxRTAa V8VwmGFbSOrrB992NRhk BeN0PFSgtpCgL2Wb ZEXrrCunCyW3u4E5Fz7R m3VqyodeAHD7JXmwUZA3 YjFnUjAzIiR6O8XnFsj4 OZCsmUeuBS3eH0Pl YGDxerjkappgwCH3UBUn NBHpeB44pQYbRYtwRp5j u4A6s149HQRaZIIgaG59 Pp1htLokOBBvcOLY jI0oxsepx7dkyhkeXmIo JXEvWMq2YPt8XKWebWrr ZjNdLYG8BqH7BIJ0uPHw sX5qjOfpjndavL9z Oyc+X33uiR5bYWG4QVS9 ccxzZMDidrCrYV09YV57 K8TlOsaepELfbDN+PGRp reUuaNhdMD5sDaFg f8bgw9JsBYyrH6AkFLOp JUcsVrg3ZPRaUQC8fVE8 rY6mNQQmEZtfn7O1uHT6 S6MxksPmmu0iu0hd KZOrDKccD57aaVWsl6L6 MULozIQ2RDVhvLbnOiXa lK18Drz+ISCwsIdsk7Ln Lonyw4kes1mcqKl4 IjMwJSIgdmFsaWduPSJ0 w4GfSi16G62fXWupENKl JJGzENElOEUlnHitcz2h yS8hIc0+PGNvbCB3 dSD9bA9eKYQlBwI3MQpd N391UzWgiFPtJflub3ht n3jbaTm7WwJuFLJafnOj hJdlXDM0z7RbMn38 O37gXUjgZCUyTCUeVWUp UERfvOvkvs8moZ8uVq2+ NB1zk9hucc80qB80uYL+ EUEvFCY5lVniEHyg YKPeiB4fMVbqXtL2XKGu JpGvpE66hEYgGJykWt5t nIhntUslWE7oBEZjdmbe c245YgNfv9izJHXp gVEmDNlkIVW9W36up7K7 EFWvZNObFQP3oVW0mK3i bGlnbjogbGVmdDsgdmVy uIjwADazMTupD811 IHRvcDsnPlBhdGllbnQg IaPhVSm4W4AbTsr1NIMz mQbuNQ8eaMRvPUvgMu9e vIskrXyoSH2iYZSh zpqrc140AqJts6yiYJTk vCNdXHzlYOB3D34ym8Q7 CUOyKUJtICK3rTL2mC5s bGlnbjogbGVmdDsg vgUuwKzoXJzaHNslC107 IHRvcDsnPkJpcnRoIERh gYD8VB30QT07mZGbe2M1 iMV0I3PaYDQqemif isfodCL6CXNaZSDsmM73 Oc8wsKcxVi5vZIHnQGM4 YSOgzWFmC2QuoD7cCzCh NTNsQJCfO0HtkHGt SLcmA317IDdoPzW2SVTh xrVsD3KpSAUrgJlwZbG9 u4W7Kq2KA8J1OP42FV25 aQSjj3J6hPP9H8Ds SWMskplsmkxcaZP2FRQf GOYluR24Cr2maPvnRb9h WNVjRUD7WZZuoWVjL6Ch vG3mWgHfDIDjZQTq V8TddZVnNOifU819VYpg PzT3BNJesjYkU0ArPFQv uRdeXbK0l6E5Hn8GCQk4 IH15TA13iUZhj5K3 kNB7J1XlVAMpbixyonhf cZE6CCWcWTVcdF36Pw7h xYsyNm1zVAOhPSC9CFFc xFPzF2TefT2yYhBt PXDoPDKyD1MxqCTfWXcn O362XItoQmP1SJMaaxBl Q3JeDMCnuIkuOuW1z8N2 Qu1RENQdLY63CDS6 ePI9XJ08QT22N1ZfWakg dGFibGU+PHRhYmxlIHdp ZHRoPScxMDAlJyBzdHls TY1mZm8mHLZeBZIx lOzuyOUeYvUok0ggQBDk JYosZA7djTgkO6FilTN3 TRYip5b3Pp46H02zF5Ul dXA+ARSaoMC2nHB6 wC4yNrWdEcE0ZModO867 QzPlkIYpFhoui9ipg8uc sBi7OyT1RMIyvsNfnEid UVG6t5ZlTn68O94f IHdpZHRoPSIxNSUiIHZh tJswvg1uaH2dFg0+PGNv pJJ7zSV3fQ2yErQsDlF4 IRklC575NiNgiSDw Zhrui7jns6ejoPt3ZuYf AKZceiDzwUwrMXH0d4Lz Mn59Y2OiuRwsv6RzOxk4 cf60xOEft8Z1mMO8 U5ZiTPDplndkhXGonFfu WP9yAKHhntfbZFYsbB3x EQSpC7r2GfJiYbW2BAfm M4UinjV0UJHjdCGc XJtgBHG3Q57hx6S2LQTk KXHoRMX7qGU7pK6hcPvh bjogbGVmdDsgdmVydGlj USchANbqS408IPSy sZtnSGJtbL2mVLArsZZc sRlqBV6tZWSdppniYweX S91VDPZDN0qMLCrqFynn dGQ+NPKnMFS8hQcj KCrqZZWecA5nGHAuW4b5 NuKxNuX9HNwqO6BpBHLs tzruTa15sD0qYoErFkH1 SRujW1GoboM3PGRl jDZeYCojCXL6K21pw7I6 SFNeOBVkLHQ0mUG7kW1k bGlnbjogbGVmdDsgdmVy xXlvANznPKylP673 IHRvcDsnPjAxLzIzLzE5 KYt0R6NxBnf1BMXnwThs IB7pbKHzNZooQe3paChu fAllAX0eCPYwggkx LFCfoX6vRAQmgICznFoa FR6xEEQrhhkks987SxGo MAZ2YTJhsAFjI3RlrG3v UyTpXTYxMKZeK3Xu cKMsTNmwT316CYklRvH7 HCKjgdGmE2BsOFZwcMfs RnL7k6J1Pg4hUoPDHYJq czwvdGQ+PHRkIHN0 kVbkRXlfEKHlnE2hJNZx U4q3YaJrQbJ3LIkkI5Mc TZSwrvotLs90mW8yBsFb MsB2CXndH0OcpwO9 PGKojRAuUXquJWO0O20r e6J5TIAeZFIrDFO5yTC8 sZ6poRahbmdoxMVdwDgu dmVydGljYWwtYWxp T504APOlpDsnMsZzoRSi ZTwvdGQ+JLXqPNJ2tAka CKiiVERqiV4gOQRoZ5l5 HxXlFqE2RAjmK0Ps AROrshpbKt50qB8jWrXs AkA2VYroL3XljkJ0UKHk iDCiOLlzXWX8C16pe6W9 KDCnJFKiSWE6bDG6 dC8tcMobnxaddRQajJir bdBoqYbzBGqdDElxV392 GFEyxWwhFhLjQDFiUC6o eTwvdGQ+XH67pm08 N7FcIttgKnq9ZZHmRQQ7 kXP0iB7iRJOwEJdee6Z6 cGL7U0TnqdFpbq6jj6jh WLDwQMhbD69zcRKp c3V6WBPcnVY4HRNzsYjm VyKpuV32Ygp+PGNvbGdy x5MpTrrfo9nba4imhGz5 IjMwJSIgdmFsaWdu IKC1w2PtYt01H00vMVmu ZHRoPSIzMCUiIHZhbGln sn6csV5xJu6+PGNvbCB3 oXV7wP1aYpDrLrR1 SPrnM718AgMksSGqQahy i7fef8fyjVx1HwVjAUZu whJboPcqLGC4j6JfVs11 W8GwgMqvp4DwVce9 ph59sDVfj5P2iBE3I6Ww IJIousklpCYecToxIX7d DKIkndpbULBlbK7qOGBf S3w8ZkRvOvY7WJmp W7ZgdoX4GTFtzMVwZDId mNOEjQ3lmqhxj0fsljzm UtFzQORwDWk1UXu6BLLt oEwpLcVhEQC6UjW0 QYU2vWFevZ5taFfshuyy cP2kOra+QTq1x7zxrGEs XT2zvRR2QS38PM31wPEj f0R6sDT1A7JhVCIx aooqfkdceGO1REQsICNm aT68Cn9klUmcPt4fRKZc FFE4INEgqVNdC5FeeL1y HlZtKMNeVGZrB8Pa fBUnQMqlI322MFenNhC4 DISclrZiC9KjJRByfHfo IbV2y3S8Wc7VUG68NJ92 JV49yKQxd5D4uOQ4 B4FrQMHmuhvoaulxkMS5 FRQxRRNtvE83Ja4jgRdw Ju3dETVyMJJ9IUSdfCMd S1BoeZ8xSjYzOAVq OYBdR2NvaDLnRWbtX752 MJnzFvO8GBHchaBrK6Jh KJYdmKcdXvL8m3I1Op1V Mj92MG61TC22vRKb t7X7uSY4A1AbPZFipphe wpfhzFG5SJRiFQWirV90 Lk3yxDhvFr6jHIQrWAM8 YRJwiZYnF2KsaD0k RfAkFZMfPKItA9BuzQHm PVjbI379PZzjYnW2SXSh tyLpS7EiFVYcwBlvZzC2 o4D3Bh2JFYfemll5 O9VdYpglyKD+JJ45OFEd KH98gLKkjQWqy8llyIg1 YqFpBLUtJLP5zUwsFYcj w7GiUVQiM34kxTUg c2U6 (more content not included)... Normal [facility] Consent for Anesthesiaon Consent for Anesthesia [id number] 2#1.00CD:127 Normal [facility] Discharge Instructionson Discharge Instructions [id number] 6#1.00CD:127 Normal [facility] IntraOperative Documentson 0 05-13-2022 IntraOperative Documents [id number] 5#1.00CD:127 Normal [facility] ABO/Rhon 05-12-2022 ABO/Rh Positive Invalid Interpretation Code [facility] Comment on above: Performed By: #### 2 [id number], [id number], [id number], [id number] ####[facility] [address] [place] [address] ABO/Rh History Checkon 05-12 ABO/Rh History Check Type verified by second s Normal [facility] Comment on above: Performed By: #### 2 [id number], [id number] ####[facility] [address] [place] [address] ABO/Rh Retypeon 05-12-2022 ABO/Rh Retype Interp Positive Invalid Interpretation Code [facility] Comment on above: Performed By: #### 2 [id number], [id number], [id number], [id number] ####[facility] [address] [place] [address] ABSCon 05-12-2022 ABSC Gel Interp Negative Normal [facility] Comment on above: Performed By: #### 2 [id number], [id number], [id number] ####[facility] [address] [place] [address] Auto Diffon 05-12-2022 Basophils/100 WBC (Bld) 0.4 % Normal 0.0-2.0 [facility] Comment on above: Order Comment: Order Added by Discern Expert. Performed By: #### 2 [id number], [id number], 2157917, 83769446, 2446845, 5654581, 9463411 ####[address] [address] Basophils/Leukocytes Auto (Bld) [Pure # fraction] 0.1 E9/L Normal 0.0-0.2 [facility] Comment on above: Order Comment: Order Added by Discern Expert. Performed By: #### 2 770831, [id number], 5609118, 18442850, 3551428, 9917492, 3416156 ####[address] [address] Eosinophils/100 WBC (Bld) 1.2 % Normal 0.0-8.0 [facility] Comment on above: Order Comment: Order Added by Discern Expert. Performed By: #### 2 352439, [id number], 4701201, 81911137, 5699887, 3788133, 8212445 ####[address] [address] Eosinophils/Leukocyte s Auto (Bld) [Pure # fraction] 0.2 E9/L Normal 0.0-0.5 [facility] Comment on above: Order Comment: Order Added by Discern Expert. Performed By: #### 2 470803, 30538249, 0328945, 32500151, 6354711, 3825523, 2163274 ####[address] [address] Lymphocytes/100 WBC (Bld) 16.5 % Normal 14.0-50.0 [facility] Comment on above: Order Comment: Order Added by Discern Expert. Performed By: #### 2 230499, [id number], 7011381, 86084496, 2215051, 4017009, 7382869 ####[address] [address] Lymphocytes/Leukocyte s Auto (Bld) [Pure # fraction] 3.2 E9/L Normal 1.0-4.0 [facility] Comment on above: Order Comment: Order Added by Discern Expert. Performed By: #### 2 651785, 39483162, 9212913, 44406677, 3068654, 7312533, 7936815 ####[address] [place] [address] Monocytes/100 WBC (Bld) 4.7 % Normal 4.0-14.0 [facility] Comment on above: Order Comment: Order Added by Discern Expert. Performed By: #### 2 300591, [id number], 6164422, 00764733, 2978168, 4864548, 9000527 ####[address] [address] Monocytes/Leukocytes Auto (Bld) [Pure # fraction] 0.9 E9/L Normal 0.2-1.0 [facility] [facility] Comment on above: Order Comment: Order Added by Discern Expert. Performed By: #### 2 [id number], 42087119, 1304369, 21979996, 1012830, 7495317, 2857286 ####[address] [address] Neutrophils/100 WBC (Bld) 77.2 % High 36.0-75.0 [facility] Comment on above: Order Comment: Order Added by Discern Expert. Performed By: #### 2 186225, 41525295, 0635444, 23883934, 7256303, 0550866, 9445073 ####[address] [place] [address] Neutrophils/Leukocyte s Auto (Bld) [Pure # fraction] 14.9 E9/L High 2.0-7.5 [facility] Comment on above: Order Comment: Order Added by Discern Expert. Performed By: #### 2 966667, 44181551, 6113410, 59418944, 4587938, 8188609, 6485686 ####[address] [place] [address] BLOOD BANKOrdered By: Jacob guzman on 05-12-2022 ABO/Rh Interp Positive Invalid Interpretation Code [facility] BB Subsection ABSC Gel Interp Negative (05/12/22 5:12 AM) Normal [facility] BB Subsection BMPon 05-12-2022 Creatinine [Mass/Vol] 1.0 mg/dL Normal 0.5-1.3 [facility] Comment on above: Performed By: #### 2 418741, 41974699, 3158364, 94520626, 6849784, 9545084, 7989576 ####[facility] [address] [place] [address] Urea nitrogen [Mass/Vol] 15 mg/dL Normal 5-21 [facility] Comment on above: Performed By: #### 2 105815, 87219129, 0157899, 73988556, 2012649, 9183932, 9357945 ####[facility] [address] [place] [address]157 Urea nitrogen/Creatinine [Mass ratio] 15 No Units Normal 10-20 [facility] Comment on above: Performed By: #### 2 541428, 10124712, 1267660, 99035899, 4084869, 3863120, 6875088 ####[facility] [address] [place] [address] Anion gap [Moles/Vol] 16 mmol/L Normal 6-16 [facility] Comment on above: Performed By: #### 2 591325, 93312138, 7705744, 87922582, 7892702, 2557656, 5037930 ####[facility] [address] [place] [address] Calcium [Mass/Vol] 9.5 mg/dL Normal 8.9-11.1 [facility] Comment on above: Performed By: #### 2 359610, 82354585, 5509028, 10833014, 0608122, 5151206, 9955638 ####[facility] [address] [place] [address] Chloride [Moles/Vol] 102 mmol/L Normal 101-111 [facility] Comment on above: Performed By: #### 2 027155, 32753791, 7545213, 80707269, 8463811, 0055053, 1943984 ####[facility] [address] [place] [address] CO2 [Moles/Vol] 23 mmol/L Normal 21-31 [facility] Comment on above: Performed By: #### 2 091212, 14965431, 9599239, 63248080, 7827077, 6300255, 9830189 ####[facility] [address] [place] [address] Glucose [Mass/Vol] 125 mg/dL Normal 55-199 [facility] Comment on above: Result Comment: If t his glucose result represents a fasting glucose, interpretation should refer to the following reference range: 55-99 mg/dL Performed By: #### 2 965397, 92846394, 6223037, 79691415, 0650366, 7348762, 6164527 ####[facility] [address] [place] [address] Potassium [Moles/Vol] 3.8 mmol/L Normal 3.5-5.3 [facility] Comment on above: Performed By: #### 2 661317, 97604967, 4995918, 68018584, 4899047, 3147579, 7845561 ####[facility] [address] [place] [address] Sodium [Moles/Vol] 137 mmol/L Normal 135-145 [facility] Comment on above: Performed By: #### 2 332400, 16383928, 7975507, 36704198, 1271662, 6880615, 2520667 ####[facility] [address] [place] [address] Blood Bank ID#on 05-12-2022 BBID# [id number] Invalid Interpretation Code [facility] Comment on above: Performed By: #### 2 181192, 73452460, 94460706, 34787743 ####[address] [place] [address] CBC w/ Auto Diffon 2 Erythrocyte distribution width (RBC) [Ratio] 13.2 % Normal 10.9-14.2 [facility] Comment on above: Performed By: #### 2 022348, 15029790, 0428527, 93158969, 5572809, 4587220, 0074751 ####[address] [place] [address] Hematocrit (Bld) [Volume fraction] 45.3 % Normal 34.0-46.0 [facility] Comment on above: Performed By: #### 2 054349, 12814734, 8310682, 37819790, 5641858, 2317476, 8187168 ####[address] [place] [address] Hemoglobin (Bld) [Mass/Vol] 15.6 g/dL Normal 12.0-16.0 [facility] Comment on above: Performed By: #### 2 081705, 68360617, 4939811, 35963825, 9961667, 0392277, 0430653 ####[address] [address] MCH (RBC) [Entitic mass] 30.0 pg Normal 27.0-34.0 [facility] Comment on above: Performed By: #### 2 736256, 17188063, 0924594, 28095918, 2650245, 9643200, 9848098 ####[address] [place] [address] MCHC (RBC) [Mass/Vol] 34.4 g/dL Normal 31.4-36.0 [facility] Comment on above: Performed By: #### 2 330561, 28585906, 7084858, 33708503, 5632035, 3260161, 3114375 ####[address] [address] MCV (RBC) [Entitic vol] 87.2 fL Normal 80.0-100.0 [facility] Comment on above: Performed By: #### 2 770437, 32769219, 3321958, 92049695, 8731120, 4959361, 7939368 ####[facility] [address] [place] [address] Platelet mean volume (Bld) [Entitic vol] 8.9 fL Normal 6.4-10.8 [facility] Comment on above: Performed By: #### 2 128072, 44896176, 8429759, 95089297, 1628590, 0279990, 0238791 ####[address] [place] [address]157 Platelets (Bld) [#/Vol] 325.0 E9/L Normal 150.0-500.0 [facility] Comment on above: Performed By: #### 2 576805, 41518569, 0059089, 97663321, 2331051, 8447264, 8836073 ####[address] [address] RBC (Bld) [#/Vol] 5.2 E12/L Normal 4.3-5.9 [facility] Comment on above: Performed By: #### 2 082894, 17526650, 4681233, 74201467, 1007744, 1168989, 1417909 ####[address] [place] [address] WBC corrected for nucl RBC Auto (Bld) [#/Vol] 19.3 E9/L High 4.0-11.0 [facility] Comment on above: Result Comment: Slid e reviewed by MM. Performed By: #### 2 368010, 62130521, 2931629, 45969128, 0562536, 3010446, 6525012 ####[address] [place] [address] CT Abdomen/Pelvis w/ Contras ton 05-12-2022 CT Abdomen/Pelvis w/ Contrast Exam Date/Time: 05/12/2022 01:02 EDT Reason for Exam: Abdominal pain, acute, nonlocalized;Other (please specify) Report IMPRESSION: Findings concerning for early appendicitis, with small volume free fluid, without loculated collection or evidence for perforation. Case discussed with trauma surgeon on 05/12/2022 at 0830 EXAMINATION: CT Abdomen/Pelvis w/ Contrast HISTORY: Abdominal pain, acute, nonlocalized. Right upper quadrant abdominal pain. Nausea and vomiting. Elevated white count. TECHNIQUE: CT of the abdomen and pelvis was performed using standard technique with intravenous contrast, scanning from just above the dome of the diaphragm to the symphysis pubis. Including delayed images through the kidneys. Including sagittal and coronal reconstructions on both phases. All CT scans at this facility use dose modulation, iterative reconstruction, and/or weight based dosing when appropriate to reduce radiation dose to as low as reasonably achievable. COMPARISON: CT 12/22/2021 RESULT: Liver: No mass or lesion. Biliary: Gallbladder unremarkable. No biliary ductal dilation. Pancreas: No mass or duct dilation. Spleen: No mass or splenomegaly. Adrenals: No mass. Kidneys: No mass, calculus or hydronephrosis. Delayed phase imaging with normal excreted contrast in the renal collecting system, ureters, and bladder. GI tract/mesentery/jacqueline toneum/retroperitone um: Appendix appears fluid-filled and dilated measuring around 11 mm, with apparent mucosal hyperenhancement. Small volume periappendiceal free fluid within the right lower quadrant. Findings are concerning for early appendicitis. No associated loculated abscess or evidence for perforation. Normal caliber loops of fluid-filled small bowel. Diverticulosis without evidence for acute diverticulitis. Report Lymph nodes: No abdominal or pelvic lymphadenopathy. Vasculature: The celiac axis and SMA are patent. The portal vein and branches, splenic vein, SMV, and hepatic veins are patent. No abdominal aortic or iliac artery aneurysm. Pelvis: No significant free pelvic fluid. Uterus grossly unremarkable. Low-attenuation adnexal cysts/follicles. Bones: No acute osseous findings. Soft tissues: Unremarkable. Lower thorax: Unremarkable. FINAL REPORT Dictated: 05/12/2022 8:34 am Bronson Parry MD Signed (Electronic Signature): 05/12/2022 8:34 am Signed by: Bronson Parry MD Transcribed by: RACIEL Technologist: CAT Technical Comments GFR (mL/min/1/73m2) n/a Contrast: Isovue 300 Contrast amount in ml's: 100 Rectal Contrast Given? No Normal [facility] Consent for Procedure/Surger yon 05-12-2022 Consent for Procedure/Surgery [id number]#1.00CD:127 Normal [facility] Consent for Procedure/Surgery [id number] #1.00CD:127 Normal [facility] Consent for Treatmenton 04-23 Consent for Treatment [id number] #1.00CD:127 Normal [facility] ED Clinical Summaryon 2021 ED Clinical Summary [id number] ED Clinical Summary Person Information Name: JULISSA WEEMS [facility] Age: 31 Years : 1990 Sex: Female Language: [place] PCP: Helene HAMILTON CNP Marital Status: Visit Id: Visit Reason: Vomiting; Nausea; Abdominal pain; ABDOMINAL PAIN AND VOMITING Speciality: Acuity: 3 Enc Type: Emergency Med Service: Emergency Arrival: 05/11/2022 22:40:20 Discharge: LOS: 000 10:43 Checkin: 05/11/2022 22:40:20 Checkout: Dispo Type: EVENTS: Event Name Event Status Request Date/Time Start Date/Time Complete Date/Time Arrive Complete 05/11/2022 22:40:20 05/11/2022 22:40:20 05/11/2022 22:40:20 Document Home Meds Request 05/11/2022 22:40:20 Triage Complete 05/11/2022 22:40:20 05/11/2022 22:56:07 05/11/2022 22:56:07 Patient Care Request 05/11/2022 22:56:08 Patient Isolation Request 05/11/2022 22:56:08 Pending Labs Request 05/11/2022 22:57:17 Lab Request 05/11/2022 22:57:17 Urine Collect Request 05/11/2022 22:57:18 US Complete 05/11/2022 23:08:04 05/11/2022 23:10:14 05/11/2022 23:24:22 Pending Labs Complete 05/11/2022 23:21:44 05/11/2022 23:21:44 05/11/2022 23:44:18 Lab Complete 05/11/2022 23:21:44 05/11/2022 23:21:44 05/11/2022 23:44:18 Bed Assign Complete 05/11/2022 23:27:49 05/11/2022 23:27:49 05/11/2022 23:27:49 Dr Exam Complete 05/11/2022 23:27:49 05/11/2022 23:39:11 05/11/2022 23:39:11 RN Exam Complete 05/11/2022 23:27:49 05/12/2022 00:56:33 05/12/2022 00:56:33 Registration Complete 05/11/2022 23:39:11 05/12/2022 03:06:02 05/12/2022 03:06:02 CT Complete 05/12/2022 00:25:29 05/12/2022 00:58:06 05/12/2022 01:02:48 Meds Admin Request 05/12/2022 00:25:29 Pending Labs Complete 05/12/2022 00:48:20 05/12/2022 00:48:20 05/12/2022 00:48:28 Lab Complete 05/12/2022 00:48:20 05/12/2022 00:48:20 05/12/2022 00:48:28 Bed Request Request 05/12/2022 02:52:19 Reg Bed Request Complete 05/12/2022 02:52:19 05/12/2022 03:06:02 05/12/2022 03:06:02 Admit Request 05/12/2022 02:52:19 NPO Request 05/12/2022 02:52:51 Meds Admin Request 05/12/2022 02:52:51 Pending Labs Request 05/12/2022 02:52:51 Lab Request 05/12/2022 02:52:51 Patient Care Request 05/12/2022 02:52:51 Bed Request Request 05/12/2022 02:52:51 Reg Bed Request Complete 05/12/2022 02:52:51 05/12/2022 03:06:02 05/12/2022 03:06:02 Admit Request 05/12/2022 02:52:51 Blood Collect Request 05/12/2022 02:52:51 Meds Admin Request 05/12/2022 02:59:10 Reg Complete Request 05/12/2022 03:06:02 Meds Admin Request 05/12/2022 08:53:33 Patient Care Request 05/12/2022 08:53:33 Transfer Request 05/12/2022 08:53:33 RT Request 05/12/2022 08:53:33 Meds Admin Request 05/12/2022 08:58:03 Pending Labs Request 05/12/2022 08:58:03 Lab Request 05/12/2022 08:58:03 Urine Collect Request 05/12/2022 08:58:03 Patient Care Request 05/12/2022 08:58:03 Patient Care Request 05/12/2022 09:11:33 ADDRESS: [address] [place] [phone] PHYS DOC NOTES: MEDICAL INFORMATION: Prescriptions Given: Medications to Continue with No Changes Other Medications albuterol (ProAir HFA 90 mcg/inh inhalation aerosol) 2 Puffs Inhalation every 4 hours as needed for wheezing. Refills: 11. albuterol (Ventolin HFA 90 mcg/inh Aerosol) 1 Puffs Inhalation Once as needed for wheezing. Refills: 2. buPROPion (Wellbutrin XL 150 mg/24 hours Tab-ER) 1 Tablets By Mouth every 24 hours. Refills: 2. fexofenadine (Susy 24 Hour) 1 tab daily. inositol (Ovasitol) 1 Packets By Mouth 2 times a day. melatonin (melatonin 1 mg oral tablet) 1 Tablets By Mouth once a day (at bedtime) as needed for insomnia. montelukast (Singulair 10 mg Tab) 1 Tablets By Mouth once a day (in the evening). Refills: 3. multivitamin (Vitamin B Complex oral tablet) 1 Tablets By Mouth every day. naltrexone (naltrexone 50 mg oral tablet) 1 tablet daily. Refills: 0. Non-Formulary Medication Vitamin D 800 IU daily. ondansetron (Zofran ODT 4 mg Tab-Dis) 1 Tablets By Mouth every 8 hours as needed Nausea/Vomiting. Refills: 1. semaglutide (Ozempic 2 mg/1.5 mL (0.25 mg or 0.5 mg dose) subcutaneous solution) 0.5 Milligram Subcutaneous every week. Refills: 5. spironolactone (spironolactone 25 mg Tab) 1 Tablets By Mouth 2 times a day. Refills: 3. valacyclovir (Valtrex 1 g Tab) 1 Tablets By Mouth 2 times a day. Take one at the start of cold sore and repeat in 12 hours. Refills: 1. PATIENT EDUCATION INFORMATION: Instructions: Follow up: DIAGNOSIS: Abdominal pain, acute; Leukocytosis Normal [facility] ED Note-Nursingon 05-12-2022 ED Note-Nursing pt arrived to ed from home via private car with her c/o epigastric and RUQ pain that is sharp and intermittent for 2 weeks. pt states she has been nauseated and vomiting with diarrhea as well. on assessment pt is having 8/10 pain. iv access obtained. labs sent in waiting room. pt medicated as ordered Normal [facility] ED Note-Physicianon 05-12-20 ED Note-Physician Basic Information Time Seen: William Yoder DO 05/11/2022 23:39 Chief Complaint pt. presents to the ed with c/o right upper quadrant pain that started this morning. Pt. also complaining of nausea and vomiting. pt still has her appendix and gall bladder. History of Present Illness Patient is a 31-year-old female with past medical history of insulin resistance presenting to the ED for evaluation of abdominal pain, vomiting. Patient was recently started on Ozempic for her insulin resistance. Today started having epigastric and right upper quadrant pain. Patient took a Pepcid at home with no improvement of her symptoms. She states she got home started having vomiting. Took Zofran. Patient states she is had progressively worsening pain described as intermittent, crampy, stabbing. Denies any fevers, chills, chest pain or shortness of breath. Review of Systems General: Denied fever, chills, weight loss HEENT: Denied Congestion, rhinorrhea, sore throat Cardiac: Denied Chest pain, palpitations, dizziness/lightheade dness Respiratory: Denied Dyspnea, cough Abdominal: + abdominal pain, nausea, vomiting, diarrhea : Denied dysuria, hematuria Extremities: Denied leg swelling, leg pain, calf tenderness Neuro: Denied Focal neurologic deficits, vision changes, difficulty with speech Integumentary: Denied rashes or lesions Physical Exam Vitals & Measurements T: 36.4 ?C(Oral) HR: 112(Peripheral) RR: 18 BP: 133/92 SpO2: 98% HT: 170.0 cm HT: 170 cm WT: 89.0 kg WT: 89 kg BMI: 30.8 General: Well developed, non toxic appearing, no acute distress HEENT: Head atraumatic, Mucosa moist, hearing grossly normal Neck: No JVD, tracheal deviation Cardiac: Regular rate, rhythm, no murmurs, or gallops, 2+ radial pulses Respiratory: Lungs clear to auscultation B/L, normal respiratory effort Abdomen: Soft, tenderness palpation in the epigastrium, right upper quadrant, no rebound or guarding, no peritoneal signs Extremities: No edema noted in the LE B/L, no tenderness to palpation Neurologic: Alert and oriented, speech clear Skin: No rashes or lesions Psych: Appropriate mood and behavior Medical Decision Making Patient is a 31-year-old female presenting to the ED for evaluation of abdominal pain, vomiting. Patient is tachycardic on arrival otherwise in no acute distress. Laboratory evaluation is obtained, right upper quadrant ultrasound is ordered from triage and is negative per report from the appliance service technician. Patient's laboratory evaluation reveals a leukocytosis of 19.3 but is otherwise unremarkable. CT abdomen pelvis is ordered. Patient is given morphine, Zofran, IV fluids. CT imaging reveals mildly distended and fluid-filled appendix at 8 mm but no surrounding inflammatory changes, dilated prominently fluid-filled loops of small bowel consistent with likely enteritis. On reevaluation patient does have mild lower quadrant pain. I spoke with Dr. Choudhary she reviewed the imaging does appear to be consistent with possibly an early appendicitis. Patient started on Zosyn and admitted to his service for further evaluation and management. Assessment/Plan Abdominal pain, acute (R10.9: Unspecified abdominal pain) Leukocytosis (D72.829: Elevated white blood cell count, unspecified) Orders: morphine, 4 mg = 2 mL, Injection, IV Push, Once, Stop date 05/12/22 0:25:00 EDT, STAT, Start date 05/12/22 0:25:00 EDT, 05/12/22 0:25:00 EDT ondansetron, 4 mg = 2 mL, Injection, IV Push, Once, Stop date 05/12/22 0:25:00 EDT, STAT, Start date 05/12/22 0:25:00 EDT, 05/12/22 0:25:00 EDT piperacillin-tazobac gonzales + Sodium Chloride 0.9% intravenous solution 50 mL, 3.375 gm = 1 EA, IV Piggyback, q6hrFT, STAT, Start date 05/12/22 2:58:00 EDT, 100 mL/hr, Infuse over 30 minute(s), 05/12/22 2:58:00 EDT Sodium Chloride 0.9% intravenous solution 1,000 mL, 1,000 mL, IV, 983.61 mL/hr, for 30 day(s), Stop date 06/11/22 0:24:00 EDT, STAT, Start date 05/12/22 0:25:00 EDT, 61 minute(s), Total volume (mL): 1,000, 89 kg, 2.05, m2 Automated Diff Basic Metabolic Panel CBC w/ Auto Diff CT Abdomen/Pelvis w/ Contrast eGFR Hepatic Function Panel Lipase Level Place in Status UA With Cult Reflex Medications Administered Given Sodium Chloride 0.9% IV Stephani 1000 mL 1,000 mL, 1000 mL, IV morphine 2 mg/mL Inj, 4 mg, IV Push Zofran 4 mg/2 mL Injection, 4 mg, IV Push Disposition Plan Patient Discharge Condition Fair Discharge Disposition Admitted Discharge Prescription List Prescriptions No active prescription medications Follow-up No qualifying data available Problem List/Past Medical History Ongoing Allergies Anxiety Cold sore Depression Encounter for weight management High risk medication use Hives Hyperlipidemia Hypersensitivity Obesity PCOS (polycystic ovarian syndrome) Prediabetes Urticaria multiforme Vitamin D deficiency Historical Adult BMI 30.0-30.9 kg/sq m Adult BMI 31.0-31.9 kg/sq m Adult BMI 32.0-32.9 kg/sq m Adult BMI 33. (more content not included)... Normal [facility] Comment on above: Result Comment: Elec tronically Signed By: William Yoder DO\.br\Date and Time Signed: 05/12/22 03:03 EDT ED Patient Education Noteon 05-12-2022 ED Patient Education Note Normal [facility] ED Patient Summaryon 022 ED Patient Summary [place] [id number] Patient Discharge Instructions Person Information Name: JULISSA WEEMS Age: 31 Years Arrival Date: 05/11/2022 22:40:20 Discharge Diagnosis: Abdominal pain, acute; Leukocytosis Primary Care Physician: Helene HAMILTON CNP Provider Information Primary Provider: William Yoder DO Advanced Garage Laborer:None The exam and treatment you received in the Emergency Department were for an urgent problem and are not intended as complete care. It is important that you follow up with a doctor, nurse practitioner, or physician?s assistant boys track coach for ongoing care. If your symptoms become worse or you do not improve as expected and you are unable to reach your usual health care provider, you should return to the Emergency Department. We are available 24 hours a day. JULISSA WEEMS has been given the following list of patient education materials, prescriptions and follow-up instructions: Follow-up Instructions: In the event that this physician does not participate in your insurance network, please consult with your insurance company to find a nearby participating provider. Patient Education Materials: A MESSAGE TO ALL PATIENTS REGARDING OPIOIDS PRESCRIPTION OPIOIDS: WHAT YOU NEED TO KNOW Prescription opioids can be used to help relieve uqkkhbml-ko-rxmgbc pain and are often prescribed following a surgery or injury, or for certain health conditions. These medications can be an important part of the treatment but also come with serious risks. It is important to work with your healthcare provider to make sure you are getting the safest, most effective care. WHAT ARE THE RISKS AND SIDE EFFECTS OF OPIOID USE? Prescription opioids carry serious risks of addiction and overdose, especially with prolonged use. An opioid overdose, often marked by slowed breathing, can cause sudden . The use of prescription opioids can have a number of side effects as well, even when taken as directed: ? Tolerance?meaning you might need to take more of the medication for the same pain relief ? Physical dependence?meaning you have symptoms of withdrawal when a medication is stopped ? Increased sensitivity to pain ? Constipation ? Nausea, vomiting, and dry mouth ? Sleepiness and dizziness ? Confusion ? Depression ? Low levels of testosterone that can result in lower sex drive, energy, and strength ? Itching and sweating RISKS ARE GREATER WITH: ? History of drug misuse, substance use disorder, or overdose ? Mental health conditions (such as depression or anxiety) ? Sleep apnea ? Older age (65 years and older) ? Avoid alcohol while taking prescription opioids. Also, unless specifically advised by your health care provider, medications to avoid include: ? Benzodiazepines (such as Xanax or Valium) ? Muscle relaxants (such as Soma or Flexeril) ? Hypnotics (such as Ambien or Lunesta) ? Other prescription opioids KNOW YOUR OPTIONS Talk to your health care provider about ways to manage your pain that don?t involve prescription opioids. Some of these options may actually work better and have fewer risks and side effects. Options may include: ? Pain relievers such as acetaminophen, ibuprofen, and naproxen ? Some medication that are also used for depression or seizures ? Physical therapy and exercise ? Cognitive behavioral therapy, a psychological, goal-directed approach, in which patients learn how to modify physical, behavioral, and emotional triggers of pain and stress. IF YOU ARE PRESCRIBED OPIOIDS FOR PAIN: ? Never take opioids in greater amounts or more often than prescribed. ? Follow up with your primary health care provider. o Work together to create a plan on how to manage your pain. o Talk about ways to help manage your pain that don?t involve prescription opioids. o Talk about any and all concerns and side effects. ? Help prevent misuse and abuse o Never sell or share prescription opioids. o Never use another person?s prescription opioids. ? Store prescription opioids in a secure place and out of reach of others (this may include visitors, children, friends, and family). ? Safely dispose of unused prescription opioids: Find your community drug take-back program or your pharmacy mail-back program, or flush them down the toilet, following guidance from the Food and Drug Administration (www.fda.gov/Drugs/R esourcesForYou). ? Visit www.cdc.gov/drugover dose to learn about the risks of opioids abuse and overdose. ? If you believe you may be struggling with addiction, tell your health grounds caretaker and ask for guidance or call [facility]?S National Helpline at 5-771-557-DLOF. w Source: [place] Department of Health and Human Services/Center for Disease Control & Prevention [facility] Medications Given: Medication Dose (more content not included)... Normal [facility] [facility] 05-12-2022 Albumin [Mass/Vol] 4.6 g/dL Normal 3.3-5.0 [facility] Comment on above: Performed By: #### 2 [id number], [id number], [id number], [id number], 3435318, 0129542, 6016924 ####[facility] [address] [place] [address] Albumin/Globulin (S) [Mass conc ratio] 1.6 Normal 1.1-2.2 [facility] Comment on above: Performed By: #### 2 689549, [id number], 8226685, 09272757, 7149810, 6303396, 2202918 ####[facility] [address] [place] [address] ALP [Catalytic activity/Vol] 44 Int._Unit/L Normal 21-98 [facility] Comment on above: Performed By: #### 2 656926, 26011199, 3984664, 17871267, 7817316, 8716424, 0921749 ####[facility] [address] [facility] [place] [address] ALT No additional P-5'-P [Catalytic activity/Vol] 34 Int._Unit/L Normal 6-46 [facility] Comment on above: Performed By: #### 2 419880, 34046375, 5579207, 56673199, 9636591, 1247062, 5351191 ####[facility] [address] [place] [address] AST [Catalytic activity/Vol] 29 Int._Unit/L Normal 5-43 [facility] Comment on above: Performed By: #### 2 779870, 56222845, 7435313, 49403202, 0382907, 0000485, 4330224 ####[facility] [address] [place] [address] Bilirubin [Mass/Vol] 0.9 mg/dL Normal 0.0-1.1 [facility] Comment on above: Performed By: #### 2 464981, 98550540, 5001944, 23706109, 9750757, 1906273, 0356104 ####[facility] [address] [place] [address] Bilirubin.direct [Mass/Vol] 0.1 mg/dL Normal 0.1-0.4 [facility] Comment on above: Performed By: #### 2 779225, 16805868, 4640010, 96913647, 7125182, 3393449, 9756207 ####[facility] [address] [place] [address] Bilirubin.indirect [Mass or moles/Vol] 0.8 mg/dL Normal 0.1-0.9 [facility] Comment on above: Performed By: #### 2 493986, 59522663, 4101307, 28835539, 7576467, 6572386, 6762889 ####[facility] [address] [place] [address] Globulin (S) [Mass/Vol] 2.8 g/dL Normal 1.4-4.0 [facility] Comment on above: Performed By: #### 2 286908, 63566181, 9967232, 66288156, 5965247, 1766338, 7627438 ####[facility] [address] [place] [address] Protein [Mass/Vol] 7.4 g/dL Normal 6.0-7.8 [facility] Comment on above: Performed By: #### 2 560904, 74914151, 8363404, 36044788, 7520060, 7057793, 6464227 ####[place] [address] [place] [address] Inpatient Patient Summaryon 05-12-2022 Inpatient Patient Summary [address] [address] [facility] Clinical Discharge Instructions PERSON INFORMATION Name: JULISSA WEEMS PHYSICIANS Admitting Physician: William Yoder DO Attending Physician: William Yoder DO PCP: Helene HAMILTON CNP Discharge Diagnosis: Abdominal pain, acute; Leukocytosis Comment: PATIENT EDUCATION INFORMATION Instructions: Post Op Patient Instructions - FT (Custom); Laparoscopic Appendectomy, Adult, Care After; Laparoscopic Appendectomy, Adult; Appendicitis, Adult Medication Leaflets: Follow up: With: Address: When: Raman Russell DO [address] [place] [phone] Comments: Call for followup appointment Type Location Start [facility] 06/14/2022 10:40 AM 06/14/2022 11:00 AM Confirmed MEDICATION LIST Medications to Continue with No Changes Other Medications albuterol (ProAir HFA 90 mcg/inh inhalation aerosol) 2 Puffs Inhalation every 4 hours as needed for wheezing. Refills: 11. albuterol (Ventolin HFA 90 mcg/inh Aerosol) 1 Puffs Inhalation Once as needed for wheezing. Refills: 2. buPROPion (Wellbutrin XL 150 mg/24 hours Tab-ER) 1 Tablets By Mouth every 24 hours. Refills: 2. fexofenadine (Susy 24 Hour) 1 tab daily. inositol (Ovasitol) 1 Packets By Mouth 2 times a day. melatonin (melatonin 1 mg oral tablet) 1 Tablets By Mouth once a day (at bedtime) as needed for insomnia. montelukast (Singulair 10 mg Tab) 1 Tablets By Mouth once a day (in the evening). Refills: 3. multivitamin (Vitamin B Complex oral tablet) 1 Tablets By Mouth every day. naltrexone (naltrexone 50 mg oral tablet) 1 tablet daily. Refills: 0. Non-Formulary Medication Vitamin D 800 IU daily. ondansetron (Zofran ODT 4 mg Tab-Dis) 1 Tablets By Mouth every 8 hours as needed Nausea/Vomiting. Refills: 1. semaglutide (Ozempic 2 mg/1.5 mL (0.25 mg or 0.5 mg dose) subcutaneous solution) 0.5 Milligram Subcutaneous every week. Refills: 5. spironolactone (spironolactone 25 mg Tab) 1 Tablets By Mouth 2 times a day. Refills: 3. valacyclovir (Valtrex 1 g Tab) 1 Tablets By Mouth 2 times a day. Take one at the start of cold sore and repeat in 12 hours. Refills: 1. Comment: Normal [facility] Lipase Levelon 05-12-2022 Lipase [Catalytic activity/Vol] 39 U/L Normal 13-58 [facility] Comment on above: Performed By: #### 2 423172, 03604051, 0836143, [id number], 4018212, 7987847, 8572292 #### [facility] [address] [place] [address] Main OR PACU I Recordon 04-23 Main OR PACU I Record PACU Phase I Document Type FT Summary Primary Physician: Raman Russell DO Finalized Date/Time: 05/12/22 14:05:54 Pt. Name: JULISSA WEEMS/Sex: 1990 Female Med Rec #: [id number] Physician: William Yoder DO Financial #: [id number] Pt. Type: E Room/Bed: [facility]03/23 Admit/Disch: 05/11/22 22:40:20 - Institution: Case Times PACU I FT Pre-Care Text: Identifies barriers to communication and implements measures to provide psychological support Develops individualized plan of care, and ensures continuity of care Maintains patient's dignity and privacy, and maintains patient confidentiality Identifies and reports philosophical, cultural, and spiritual beliefs and values Identifies individual values and wishes concerning care Implements aseptic technique, and administers prescribed antibiotic therapy and immunizing agents as ordered Evaluates postoperative tissue perfusion Implements thermoregulation measures, and monitors body temperature Evaluates postoperative respiratory status Evaluates postoperative cardiac status Evaluates postoperative neurological status Assesses pain control, collaborated in initiating patient-controlled analgesia and implements alternative methods of pain control Verifies allergies, administers prescribed medications and solutions, evaluates response to medications Entry 1 In PACU I 05/12/22 11:56:00 Discharge from PACU 05/12/22 13:10:00 I Outcomes Met? Yes Last Modified By: TERRY CROUCH RN 05/12/22 14:05:40 Post-Care Text: The patient demonstrates knowledge of the expected response to the operative or invasive procedure The patient's care is consistent with the individualized perioperative plan of care The patient's right to privacy is maintained The patient's value system, lifestyle, ethnicity, and culture are considered, respected, and incorporated into the perioperative plan of care The patient participates in decisions affecting his or her perioperative plan of care The patient is free from signs and symptoms of infection The patient has wound/tissue perfusion consistent with or improved from baseline levels established preoperatively The patient is at or returning to normothermia at the conclusion of the immediate postoperative period The patient's respiratory function is consistent with or improved from baseline levels established preoperatively The patient's cardiovascular status is consistent with or improved from baseline levels established preoperatively The patient's cardiovascular status is consistent with or improved from baseline levels established preoperatively The patient demonstrates and/or reports adequate pain control throughout the perioperative period The patient received appropriate medication(s), safely administered during the perioperative period Acuity Level PACU I FT Entry 1 Start Time 05/12/22 11:56:00 Stop Time 05/12/22 13:10:00 Acuity Level Acuity Level I Last Modified By: TERRY CROUCH RN 05/12/22 14:05:50 Finalized By: TERRY CROUCH RN Document Signatures Signed By: TERRY CROUCH RN 05/12/22 14:05 Normal [facility] Main OR PACU II Recordon Main OR PACU II Record PACU Phase II Document Type FT Summary Primary Physician: Raman Russell DO Finalized Date/Time: 05/12/22 15:37:18 Pt. Name: JULISSA WEEMS/Sex: 1990 Female Med Rec #: [id number] Physician: William Yoder DO Financial #: [id number] Pt. Type: E Room/Bed: [place] [address] Admit/Disch: 05/11/22 22:40:20 - Institution: Case Times PACU II FT Pre-Care Text: Identifies barriers to communication and implements measures to provide psychological support and determines knowledge level Develops individualized plan of care, and ensures continuity of care Maintains patient's dignity and privacy, and maintains patient confidentiality Identifies and reports philosophical, cultural, and spiritual beliefs and values Identifies individual values and wishes concerning care administers prescribed antibiotic therapy and immunizing agents as ordered, Evaluates postoperative tissue perfusion Implements thermoregulation measures, and monitors body temperature Evaluates postoperative respiratory status Evaluates postoperative cardiac status Evaluates postoperative neurological status Assesses pain control, collaborated in initiating patient-controlled analgesia and implements alternative methods of pain control Verifies allergies, administers prescribed medications and solutions, evaluates response to medications Entry 1 In PACU II 05/12/22 13:10:00 Discharge from PACU 05/12/22 15:40:00 II Outcomes Met? Yes Last Modified By: Jose G Coppola RN 05/12/22 15:37:16 Post-Care Text: The patient demonstrates knowledge of the expected response to the operative or invasive procedure The patient's care is consistent with the individualized perioperative plan of care The patient's right to privacy is maintained The patient's value system, lifestyle, ethnicity, and culture are considered, respected, and incorporated into the perioperative plan of care The patient participates in decisions affecting his or her perioperative plan of care. The patient is free from signs and symptoms of infection The patient has wound/tissue perfusion consistent with or improved from baseline levels established preoperatively The patient is at or returning to normothermia at the conclusion of the immediate postoperative period The patient's respiratory function is consistent with or improved from baseline levels established preoperatively The patient's cardiovascular status is consistent with or improved from baseline levels established preoperatively The patient's neurological status is consistent with or improved from baseline levels established preoperatively The patient demonstrates and/or reports adequate pain control throughout the perioperative period The patient received appropriate medication(s), safely administered during the perioperative period Finalized By: Jose G Coppola RN Document Signatures Signed By: Jose G Coppola RN 05/12/22 15:37 [facility] Main OR Preoperative Recordo n 07-21-2022 Main OR Preoperative Record PreOp Document Type FT Summary Primary Physician: Raman Russell DO Finalized Date/Time: 05/12/22 11:07:55 Pt. Name: JULISSA WEEMS Spike Lawton./Sex: 1990 Female Med Rec #: [id number] Physician: Financial #: [id number] Pt. Type: E Room/Bed: / Admit/Disch: 05/11/22 22:40:20 - Institution: Case Times PreOp FT Pre-Care Text: Verifies consent for planned procedure, identifies individual values and wishes concerning care, includes family members in perioperative teaching Entry 1 Patient Times. In Pre Surgery 05/12/22 09:20:00 Out Pre Surgery 05/12/22 10:29:00 Outcomes Met? Yes Last Modified By: Caitlin Harris RN 05/12/22 11:07:53 Post-Care Text: The patient participates in decisions affecting his or her perioperative plan of care Finalized By: Caitlin Harris RN Document Signatures Signed By: Caitlin Harris RN 05/12/22 11:07 Normal [facility] Monitor Recordon 05-12-2022 Monitor Record [id number] 5#[id number]:127 Normal [facility] Monitor Record [id number]#[id number]:127 Normal [facility] Operative Reporton 2 Operative Report Indication for Surgery Is a 31-year-old female that presents with abdominal pain. CT findings as well as physical exam findings and labs were consistent with potentially early appendicitis. Risk benefits and potential complications related surgical intervention were explained to the patient she wished to proceed Preoperative Diagnosis ACUTE APPENDICITIS Postoperative Diagnosis ACUTE APPENDICITIS Operation APPENDECTOMY LAPAROSCOPIC, LAPAROSCOPIC APPENDECTOMY, . Surgeon(s) Raman Russell DO (Surgeon - Primary) Pool Table Mechanic None Anesthesia General Wiliam Diaz Jr., DO (Body Masker) Estimated Blood Loss 10 cc Urine Output See anesthesia Findings Early appearing appendicitis with dilated appendix. Free fluid Specimen(s) Pathology Tissue Exam (Appendix,AP Specimen) Complications None Technique Patient was brought to the operating placed in supine position. After induction of general anesthesia the abdomen prepped and draped in usual sterile fashion. An infraumbilical incision was made and dissection was taken down to the intra-abdominal fascia. Fascia was incised and the abdomen entered under direct visualization. 2-0 Vicryl stay sutures were placed and Ansari trocar entered into the abdomen. The abdomen was insufflated and tolerated well by the patient. 2 additional 5 mm trochars were then placed within the abdomen 1 in the suprapubic region as well as the left lower quadrant. Attention was then taken to the right lower quadrant. There is a moderate mount of free fluid which is aspirated. There is no signs of any infection in this fluid. The appendix was identified noted be significantly long in length. There was mild dilation of it with inflammation of the mesoappendix. There were mild attachments to the retroperitoneum which were taken down with a combination of blunt and sharp dissection. Once freely identify the base was skeletonized using a [place]. The base of the appendix was divided from the cecum using a laparoscopic IVÁN purple load stapler. Next the mesoappendix was transected using a laparoscopic IVÁN felix load stapler. The appendix was placed in Endo Catch bag and removed from the abdomen. The abdomen is further inspected both was reviewed. Healthy but enlarged. There is no signs of any pelvic masses. The gallbladder appeared healthy and without inflammation. 2 5 mm trochars were then removed under direct visualization. Ansari trocar was removed. The umbilical fascial defect was then closed using interrupted 0 Vicryl zyidys-mw-uvjkv suture as well as the additional 2-0 Vicryl stay sutures. Skin incision was closed with subcuticular 4-0 Monocryl suture. Patient was extubated taken to PACU in stable condition. Normal [facility] Comment on above: Result Comment: Elec tronically Signed By: Raman Russell DO\.aditya\Date and Time Signed: 05/12/22 18:56 EDT Outpatient Surgery Discharge Instructionon 05-12-2022 Outpatient Surgery Discharge Instruction [place] [id number] Patient Discharge Instructions PERSON INFORMATION Name: JULISSA WEEMS Date of : 1990 Current Date: 05/12/2022 14:17:55 PHYSICIANS Admitting Physician: William Yoder DO Discharge Diagnosis: Abdominal pain, acute; Leukocytosis JULISSA WEEMS has been given the following list of follow-up instructions, prescriptions, and patient education materials: IF UNABLE TO CONTACT YOUR PHYSICIAN AND YOU FEEL IT IS AN EMERGENCY, GO TO THE NEAREST EMERGENCY ROOM OR CALL 911 SEDA Young ASHLEY R, have received the attached patient education materials/instructio ns and have verbalized understanding: May we do a follow up call? Yes No I was present when discharge instructions were given Patient Signature Date Clinican/Nurse Signature Date Follow up: With: Address: When: Drew IRVIN, Raman [place] [address]ie [address] [phone] Comments: Call for followup appointment Type Location Start [facility] 06/14/2022 10:40 AM 06/14/2022 11:00 AM Confirmed Pharmacy Information: You may receive a survey from [employer] asking you to rate your care experience. Your feedback is important and will help us understand what we do well and how we can improve the quality of care we provide to you, your loved ones and our community. It?s an honor to serve you. Thank you for choosing [facility] HERE ARE THE MEDICATION CHANGES THAT OCCURRED DURING YOUR HOSPITAL STAY Medications to Continue with No Changes Other Medications albuterol (ProAir HFA 90 mcg/inh inhalation aerosol) 2 Puffs Inhalation every 4 hours as needed for wheezing. Refills: 11. albuterol (Ventolin HFA 90 mcg/inh Aerosol) 1 Puffs Inhalation Once as needed for wheezing. Refills: 2. buPROPion (Wellbutrin XL 150 mg/24 hours Tab-ER) 1 Tablets By Mouth every 24 hours. Refills: 2. fexofenadine (Susy 24 Hour) 1 tab daily. inositol (Ovasitol) 1 Packets By Mouth 2 times a day. melatonin (melatonin 1 mg oral tablet) 1 Tablets By Mouth once a day (at bedtime) as needed for insomnia. montelukast (Singulair 10 mg Tab) 1 Tablets By Mouth once a day (in the evening). Refills: 3. multivitamin (Vitamin B Complex oral tablet) 1 Tablets By Mouth every day. naltrexone (naltrexone 50 mg oral tablet) 1 tablet daily. Refills: 0. Non-Formulary Medication Vitamin D 800 IU daily. ondansetron (Zofran ODT 4 mg Tab-Dis) 1 Tablets By Mouth every 8 hours as needed Nausea/Vomiting. Refills: 1. semaglutide (Ozempic 2 mg/1.5 mL (0.25 mg or 0.5 mg dose) subcutaneous solution) 0.5 Milligram Subcutaneous every week. Refills: 5. spironolactone (spironolactone 25 mg Tab) 1 Tablets By Mouth 2 times a day. Refills: 3. valacyclovir (Valtrex 1 g Tab) 1 Tablets By Mouth 2 times a day. Take one at the start of cold sore and repeat in 12 hours. Refills: 1. PATIENT EDUCATION INFORMATION Instructions: Laparoscopic Appendectomy, Adult, Care After This sheet gives you information about how to care for yourself after your procedure. Your health care provider may also give you more specific instructions. If you have problems or questions, contact your health care provider. What can I expect after the procedure? After the procedure, it is common to have: ? Little energy for normal activities. ? Mild pain in the area where the incisions were made. ? Difficulty passing stool (constipation). This can be caused by: ? Pain medicine. ? A decrease in your activity. Follow these instructions at home: Medicines ? Take jtdd-akr-gatjiew and prescription medicines only as told by your health care provider. ? If you were prescribed an antibiotic medicine, take it as told by your health care provider. Do not stop taking the antibiotic even if you start to feel better. ? Do not drive or use heavy machinery while taking prescription pain medicine. ? Ask your health care provider if the medicine prescribed to you can cause constipation. You may need to take steps to prevent or treat constipation, such as: ? Drink enough fluid to keep your urine pale yellow. ? Take szhc-ptq-ivgpfrr or prescription medicines. ? Eat foods that are high in fiber, such as beans, whole grains, and fresh fruits and vegetables. ? Limit foods that are high in fat and processed sugars, such as fried or sweet foods. Incision care ? Follow instructions from your health care provider about how to take care of your incisio (more content not included)... Normal [facility] Patient Education - Texton 0 05-12-2022 Patient Education - Text Gastroenterology Laparoscopic Appendectomy, Adult, Care After This sheet gives you information about how to care for yourself after your procedure. Your health care provider may also give you more specific instructions. If you have problems or questions, contact your health care provider. What can I expect after the procedure? After the procedure, it is common to have: ? Little energy for normal activities. ? Mild pain in the area where the incisions were made. ? Difficulty passing stool (constipation). This can be caused by: ? Pain medicine. ? A decrease in your activity. Follow these instructions at home: Medicines ? Take kweq-dle-kfqjmow and prescription medicines only as told by your health care provider. ? If you were prescribed an antibiotic medicine, take it as told by your health care provider. Do not stop taking the antibiotic even if you start to feel better. ? Do not drive or use heavy machinery while taking prescription pain medicine. ? Ask your health care provider if the medicine prescribed to you can cause constipation. You may need to take steps to prevent or treat constipation, such as: ? Drink enough fluid to keep your urine pale yellow. ? Take wtga-nau-nzxnkgc or prescription medicines. ? Eat foods that are high in fiber, such as beans, whole grains, and fresh fruits and vegetables. ? Limit foods that are high in fat and processed sugars, such as fried or sweet foods. Incision care ? Follow instructions from your health care provider about how to take care of your incisions. Make sure you: ? Wash your hands with soap and water before and after you change your bandage (dressing). If soap and water are not available, use hand gericare aide teacher. ? Change your dressing as told by your health care provider. ? Leave stitches (sutures), skin glue, or adhesive strips in place. These skin closures may need to stay in place for 2 weeks or longer. If adhesive strip edges start to loosen and curl up, you may trim the loose edges. Do not remove adhesive strips completely unless your health care provider tells you to do that. ? Check your incision areas every day for signs of infection. Check for: ? Redness, swelling, or pain. ? Fluid or blood. ? Warmth. ? Pus or a bad smell. Bathing ? Keep your incisions clean and dry. Clean them as often as told by your health care provider. To do this: 1. Gently wash the incisions with soap and water. 2. Rinse the incisions with water to remove all soap. 3. Pat the incisions dry with a clean towel. Do not rub the incisions. ? Do not take baths, swim, or use a hot tub for 2 weeks, or until your health care provider approves. You may take showers after 48 hours. Activity ? Do not drive for 24 hours if you were given a sedative during your procedure. ? Rest after the procedure. Return to your normal activities as told by your health care provider. Ask your health care provider what activities are safe for you. ? For 3 weeks, or for as long as told by your health care provider: ? Do not lift anything that is heavier than 10 lb (4.5 kg), or the limit that you are told. ? Do not play contact sports. General instructions ? If you were sent home with a drain, follow instructions from your health care provider about how to care for it. ? Take deep breaths. This helps to prevent your lungs from developing an infection (pneumonia). ? Keep all follow-up visits as told by your health care provider. This is important. Contact a health care provider if: ? You have redness, swelling, or pain around an incision. ? You have fluid or blood coming from an incision. ? Your incision feels warm to the touch. ? You have pus or a bad smell coming from an incision or dressing. ? Your incision edges break open after your sutures have been removed. ? You have increasing pain in your shoulders. ? You feel dizzy or you faint. ? You develop shortness of breath. ? You keep feeling nauseous or you are vomiting. ? You have diarrhea or you cannot control your bowel functions. ? You lose your appetite. ? You develop swelling or pain in your legs. ? You develop a rash. Get help right away if you have: ? A fever. ? Difficulty breathing. ? Sharp pains in your chest. Summary ? After a laparoscopic appendectomy, it is common to have little energy for normal activities, mild pain in the area of the incisions, and constipation. ? Infection is the most common complication after this procedure. Follow your health care provider's instructions about caring for yourself after the procedure. ? Rest after the procedure. Return to your normal activities as told by your health care provider. ? Contact your health care provider if you notice signs of infection around your incisions or you develop shortness of breath. Get help right away if you (more content not included)... Normal [facility] Progress Note-Physicianon Progress Note-Physician Patient: JULISSA WEEMS Age: 31 years Sex: Female : 1990 Associated Diagnoses: None Author: Wiliam Diaz Jr., DO Preoperative Information Time patient last ate or drank:=== (NPO since midnight) Anesthesia history: Patient History: No prior problems with anesthesia.. Re-eval prior to induction: Inital eval reviewed: No significant interval change, Surgical H&P documented and on chart. Surgical consent signed and on chart.. Anesthesia results Review of Systems Cardiovascular: Negative except as documented in history of present illness. Respiratory: Negative. Neurologic: Negative. Health Status Allergies: Allergic Reactions (Selected) Severity Not Documented Adipex-P- Hives and shortness of breath. Nonallergic Reactions (Selected) Severe MetFORMIN- Rhabdomyolysis., Allergies (2) Active Reaction metFORMIN Rhabdomyolysis Adipex-P Hives Current medications: (Selected) Inpatient Medications Ordered HYDROmorphone 1 mg/mL injectable solution: 0.4 mg = 0.4 mL, Injection, IV Push, q4min PRN Pain for 5 dose(s), Stop date Limited # of times, Routine, Start date 05/12/22 8:53:00 EDT, 05/12/22 8:53:00 EDT Lactated Ringers IV Stephani 1000 mL 1,000 mL: 1,000 mL, IV, 100 mL/hr, Routine, Start date 05/12/22 8:53:00 EDT, 10 hour(s), Total volume (mL): 1,000, 89 kg, 2.05, m2 Lactated Ringers IV Stephani 1000 mL 1,000 mL: 1,000 mL, IV, 150 mL/hr, Routine, Start date 05/12/22 2:51:00 EDT, 6.7 hour(s), Total volume (mL): 1,000, 89 kg, 2.05, m2 Phenergan 25 mg/mL Injection: 12.5 mg = 0.5 mL, Injection, IV Push, q2min PRN Other (see comment) for 2 dose(s), Stop date Limited # of times, Routine, Start date 05/12/22 8:53:00 EDT, 05/12/22 8:53:00 EDT Sodium Chloride 0.9% IV Stephani 1000 mL 1,000 mL: 1,000 mL, IV, 983.61 mL/hr, for 30 day(s), Stop date 06/11/22 0:24:00 EDT, STAT, Start date 05/12/22 0:25:00 EDT, 61 minute(s), Total volume (mL): 1,000, 89 kg, 2.05, m2 heparin 5000 units/mL Inj: 5,000 unit(s) = 1 mL, Injection, SubCutaneous, q8hrFT, Routine, Start date 05/12/22 0:00:00 EDT, 05/12/22 2:51:00 EDT morphine 2 mg/mL Inj: 2 mg = 1 mL, Injection, IV Push, q4hr PRN Pain 1-3 for 2 day(s), Stop date 05/14/22 2:50:00 EDT, Routine, Start date 05/12/22 2:51:00 EDT, Pain score 1-3., 05/12/22 2:51:00 EDT morphine 2 mg/mL Inj: 4 mg = 2 mL, Injection, IV Push, q4hr PRN Pain 4-7 for 2 day(s), Stop date 05/14/22 2:50:00 EDT, Routine, Start date 05/12/22 2:51:00 EDT, Pain score 4-7., 05/12/22 2:51:00 EDT piperacillin-tazobac gonzales additive + Sodium Chloride 0.9% intravenous solution 50 mL: 3.375 gm = 1 EA, IV Piggyback, q6hrFT, STAT, Start date 05/12/22 2:58:00 EDT, 100 mL/hr, Infuse over 30 minute(s), 05/12/22 2:58:00 EDT Prescriptions Prescribed Ozempic 2 mg/1.5 mL (0.25 mg or 0.5 mg dose) subcutaneous solution: 0.5 mg, SubCutaneous, qWeek, 1 EA, Refill(s) 5, [facility] #[id number], 170, cm, 04/12/22 11:02:00 EDT, Height/Length Dosing, 96.7, kg, 04/12/22 11:02:00 EDT, Weight Dosing ProAir HFA 90 mcg/inh inhalation aerosol: 2 puff(s), Inhalation, q4hr for wheezing, 1 EA, Refill(s) 11, [facility] #[id number], 170, cm, 07/13/21 9:30:00 EDT, Height/Length Dosing, 88.5, kg, 07/13/21 9:30:00 EDT, Weight Dosing Singulair 10 mg Tab: 10 mg = 1 tab(s), Oral, qPM, # 90 tab(s), Refills(s) 3, Pharmacy: [facility], 170, cm, 04/06/21 9:19:00 EDT, Height/Length Dosing, 90, kg, 04/06/21 9:19:00 EDT, Weight Dosing Valtrex 1 g Tab: 1 gm = 1 tab(s), Oral, BID, Take one at the start of cold sore and repeat in 12 hours, # 4 tab(s), Refills(s) 1, Pharmacy: [facility], 170, cm, 11/03/20 13:01:00 EST, Height/Length Dosing, 94.7, kg, 11/03/20 13:01:00 EST, Brandon... Ventolin HFA 90 mcg/inh Aerosol: 1 puff(s), Inhalation, Once for wheezing, 6.7 gm, Refill(s) 2, [id number], 170, cm, 07/13/21 9:30:00 EDT, Height/Length Dosing, 88.5, kg, 07/13/21 9:30:00 EDT, Weight Dosing Wellbutrin XL 150 mg/24 hours Tab-ER: 150 mg = 1 tab(s), Oral, q24hr, # 30 tab(s), Refills(s) 2, Pharmacy: [facility] #[id number], 170, cm, 03/08/22 10:25:00 EDT, Height/Length Dosing, 98.4, kg, 03/08/22 10:25:00 EDT, Weight Dosing Zofran ODT 4 mg Tab-Dis: 4 mg = 1 tab(s), Oral, q8hr, PRN Nausea/Vomiting, # 30 tab(s), Refills(s) 1, Pharmacy: [facility] #[id number], 170, cm, 04/12/22 11:02:00 EDT, Height/Length Dosing, 96.7, kg, 04/12/22 11:02:00 EDT, Weight Dosing naltrexone 50 mg oral tablet: See Instructions, 1 tablet daily, # 90 tab(s), Refills(s) 0, Pharmacy: [facility] #[id number], 170, cm, 04/12/22 11:02:00 EDT, Height/Length Dosing, 96.7, kg, 04/12/22 11:02:00 EDT, Weight Dosing spironolactone 25 mg Tab: 25 mg = 1 tab(s), Oral, BID, # 180 tab(s), Refills(s) 3, Pharmacy: [facility], 170, cm, 04/06/21 9:19:00 EDT, Height/Length Dosing, 90, kg, 04/06/21 9:19:00 EDT, Weight Dosing Documented Medications Documented Susy 24 Hour: See Instructions, 1 tab cynthia (more content not included)... Normal [facility] Comment on above: Result Comment: Elec tronically Signed By: Joe Parr DO, Wiliam Jimenez\.br\Date and Time Signed: 05/12/22 08:55 EDT RAD - Preliminary Cat Scan R eporton 05-12-2022 RAD - Preliminary Cat Scan Report [id number] [id number]:[id number] Normal [facility] SEROLOGYOrdered By: Riya kenney on 05-12-2022 HCG.beta subunit (U) [Moles/Vol] Negative Normal [facility] Man Sero U BetaHcg Qualon 05-12-2022 HCG.beta subunit (U) [Moles/Vol] Negative Normal [facility] Comment on above: Performed By: #### 2 [id number] #### [facility] [address] [place] [address] UA With Cult Reflexon 2021 Epithelial cells.squamous LM.HPF (Urine sed) [#/Area] 0-2 Normal 0-2 [facility] Comment on above: Performed By: #### 1 [id number] #### [facility] [address] [place] [address] Mantee.plasma/Lithiu m.RBC (Bld) [Mass ratio] 0-3 Normal 0-3 [facility] Comment on above: Performed By: #### 1 [id number] #### [facility] [address] [place] [address] WBC LM.HPF (Urine sed) [#/Area] 0-5 Normal 0-5 [facility] Comment on above: Performed By: #### 1 [id number] #### [facility] [address] [place] [address] Bilirubin Ql (U) Negative Normal Negative [facility] Comment on above: Performed By: #### 1 [id number] #### [facility] [address] [place] [address] Clarity (U) CLEAR Normal Clear [facility] Comment on above: Performed By: #### 1 [id number] #### [facility] [address] [place] [address] Color (U) YELLOW Normal Yellow [facility] Comment on above: Performed By: #### 1 [id number] #### [facility] [address] [place] [address] Glucose Test strip (U) [Mass/Vol] Negative Normal Negative [facility] Comment on above: Performed By: #### 1 [id number] #### [facility] [address] [place] [address] Hemoglobin Ql (U) Negative Normal Negative [facility] Comment on above: Performed By: #### 1 [id number] #### [facility] [address] [place] [address] Ketones (U) [Mass/Vol] Negative Normal Negative [facility] Comment on above: Performed By: #### 1 [id number] #### [facility] [address] [place] [address] Nitrite Ql (U) Negative Normal Negative [facility] Comment on above: Performed By: #### 1 [id number] #### [facility] [address] [place] [address] pH (U) 6.0 [pH] Invalid Interpretation Code 5.0-9.0 [facility] Comment on above: Performed By: #### 1 [id number] #### [facility] [address] [place] [address] Protein (U) [Mass/Vol] Negative Normal Negative [facility] Comment on above: Performed By: #### 1 [id number] #### [facility] [address] [place] [address] Specific gravity (U) [Rel density] 1.015 Invalid Interpretation Code 1.005-1.030 [facility] Comment on above: Performed By: #### 1 [id number] #### [facility] [address] [place] [address] Type of Urine collection method Diaz Normal [facility] Comment on above: Performed By: #### 1 [id number] #### [facility] [address] [place] [address] Urobilinogen Qn (U) 0.2 {Lazaro'U}/dL Normal 0.0-1.0 [facility] Comment on above: Performed By: #### 1 [id number] #### [facility] [address] [place] [address] WBC Auto Ql (U) Negative Normal Negative [facility] Comment on above: Performed By: #### 1 [id number] #### [facility] [address] [place] [address] Bacteria LM Ql (Urine sed) TRACE Normal Trace [facility] Comment on above: Performed By: #### 1 [id number] #### [facility] [address] [place] [address] Bilirubin Ql (U) Negative Normal Negative [facility] Comment on above: Performed By: #### 1 [id number] #### [facility] [address] [place] [address] Clarity (U) CLEAR Normal Clear [facility] Comment on above: Performed By: #### 1 [id number] #### [facility] [address] [place] [address] Color (U) YELLOW Normal Yellow [facility] Comment on above: Performed By: #### 1 [id number] #### [facility] [address] [place] [address] Epithelial cells.squamous LM.HPF (Urine sed) [#/Area] 0-2 Normal 0-2 [facility] Comment on above: Performed By: #### 1 [id number] #### [facility] [address] [place] [address] Glucose Test strip (U) [Mass/Vol] Negative Normal Negative [facility] Comment on above: Performed By: #### 1 [id number] #### [facility] [address] [place] [address] Hemoglobin Ql (U) Negative Normal Negative [facility] Comment on above: Performed By: #### 1 [id number] #### [facility] [address] [place] [address] Ketones (U) [Mass/Vol] Negative Normal Negative [facility] Comment on above: Performed By: #### 1 [id number] #### [facility] [address] [place] [address] Mantee.plasma/Lithiu m.RBC (Bld) [Mass ratio] 0-3 Normal 0-3 [facility] Comment on above: Performed By: #### 1 [id number] #### [facility] [address] [place] [address] Nitrite Ql (U) Negative Normal Negative [facility] Comment on above: Performed By: #### 1 [id number] #### [facility] [address] [place] [address] pH (U) 6.0 [pH] Invalid Interpretation Code 5.0-9.0 [facility] Comment on above: Performed By: #### 1 [id number] #### [facility] [address] [place] [address] Protein (U) [Mass/Vol] Negative Normal Negative [facility] Comment on above: Performed By: #### 1 [id number] #### [facility] [address] [place] [address] Specific gravity (U) [Rel density] 1.020 Invalid Interpretation Code 1.005-1.030 [facility] Comment on above: Performed By: #### 1 [id number] #### [facility] [address] [place] [address] Type of Urine collection method Clean Catch Normal [facility] Comment on above: Performed By: #### 1 [id number] #### [facility] [address] [place] [address] Urobilinogen Qn (U) 0.2 {Lazaro'U}/dL Normal 0.0-1.0 [facility] Comment on above: Performed By: #### 1 [id number] #### [facility] [address] [place] [address] WBC Auto Ql (U) Negative Normal Negative [facility] Comment on above: Performed By: #### 1 [id number] #### [facility] [address] [place] [address] WBC LM.HPF (Urine sed) [#/Area] 0-5 Normal 0-5 [facility] Comment on above: Performed By: #### 1 [id number] #### [facility] [address] [place] [address] URINALYSISOrdered By: Riya Quarles on 05-12-2022 Bilirubin Ql (U) Negative (05/12/22 10:38 AM) Normal Negative [facility] UA Auto SS Clarity (U) Clear (05/12/22 10:38 AM) Normal Clear [facility] UA Auto SS Color (U) Yellow (05/12/22 10:38 AM) Normal Yellow [facility] UA Auto SS Epithelial cells.squamous LM.HPF (Urine sed) [#/Area] 0-2 /HPF Normal 0-2/HPF [facility] UA Aut o SS Glucose Test strip (U) [Mass/Vol] Negative (05/12/22 10:38 AM) Normal Negative [facility] UA Auto SS Hemoglobin Ql (U) Negative (05/12/22 10:38 AM) Normal Negative [facility] UA Auto SS Ketones (U) [Mass/Vol] Negative (05/12/22 10:38 AM) Normal Negative [facility] UA Auto SS Mantee.plasma/Lithiu m.RBC (Bld) [Mass ratio] 0-3 /HPF Normal 0-3/HPF [facility] UA Auto SS Nitrite Ql (U) Negative (05/12/22 10:38 AM) Normal Negative [facility] UA Auto SS pH (U) 6.0 *NA* (05/12/22 10:38 AM) Invalid Interpretation Code 5.0 - 9.0 [facility] UA Auto SS Protein (U) [Mass/Vol] Negative (05/12/22 10:38 AM) Normal Negative [facility] UA Auto SS Specific gravity (U) [Rel density] 1.015 *NA* (05/12/22 10:38 AM) Invalid Interpretation Code 1.005 - 1.030 [facility] UA Auto SS UA Spec Desc Diaz (05/12/22 10:38 AM) Normal [facility] UA Auto SS Urobilinogen Qn (U) 0.9361379 {Lazaro'U}/dL Normal 0.0 - 1.0 EU/dL [facility] UA Auto SS WBC Auto Ql (U) Negative (05/12/22 10:38 AM) Normal Negative [facility] UA Auto SS WBC LM.HPF (Urine sed) [#/Area] 0-5 /HPF Normal 0-5/HPF [facility] UA Auto SS Bacteria LM Ql (Urine sed) Trace /HPF Normal Trace/HPF [facility] UA Auto SS Bilirubin Ql (U) Negative (05/12/22 9:58 AM) Normal Negative [facility] UA Auto SS Clarity (U) Clear (05/12/22 9:58 AM) Normal Clear [facility] UA Auto SS Color (U) Yellow (05/12/22 9:58 AM) Normal Yellow [facility] UA Auto SS Epithelial cells.squamous LM.HPF (Urine sed) [#/Area] 0-2 /HPF Normal 0-2/HPF [facility] UA Aut o SS Glucose Test strip (U) [Mass/Vol] Negative (05/12/22 9:58 AM) Normal Negative [facility] UA Auto SS Hemoglobin Ql (U) Negative (05/12/22 9:58 AM) Normal Negative [facility] UA Auto SS Ketones (U) [Mass/Vol] Negative (05/12/22 9:58 AM) Normal Negative [facility] UA Auto SS Mantee.plasma/Lithiu m.RBC (Bld) [Mass ratio] 0-3 /HPF Normal 0-3/HPF [facility] UA Auto SS Nitrite Ql (U) Negative (05/12/22 9:58 AM) Normal Negative [facility] UA Auto SS pH (U) 6.0 *NA* (05/12/22 9:58 AM) Invalid Interpretation Code 5.0 - 9.0 [facility] UA Auto SS Protein (U) [Mass/Vol] Negative (05/12/22 9:58 AM) Normal Negative [facility] UA Auto SS Specific gravity (U) [Rel density] 1.020 *NA* (05/12/22 9:58 AM) Invalid Interpretation Code 1.005 - 1.030 [facility] UA Auto SS UA Spec Desc Clean Catch (05/12/22 9:58 AM) Normal [facility] UA Auto SS Urobilinogen Qn (U) 0.2696912 {Lazaro'U}/dL Normal 0.0 - 1.0 EU/dL [facility] UA Auto SS WBC Auto Ql (U) Negative (05/12/22 9:58 AM) Normal Negative [facility] UA Auto SS WBC LM.HPF (Urine sed) [#/Area] 0-5 /HPF Normal 0-5/HPF [facility] UA Auto SS US Gallbladderon 05-12-2022 US Gallbladder Exam Date/Time: 05/11/2022 23:24 EDT Reason for Exam: Abdominal pain Report IMPRESSION: Normal sonographic appearance of the right upper quadrant. EXAMINATION: US Gallbladder HISTORY: Abdominal pain. TECHNIQUE: Sonography of the right upper quadrant was performed. Images were obtained and stored in a permanent archive.\[id number]\ COMPARISON: None. RESULT: Pancreas: Normal sonographic appearance of the visualized portions. Liver: Normal echotexture, echogenicity, surface contour. No focal lesion. Gallbladder: Normal caliber without cholelithiasis, sludge, wall thickening, pericholecystic fluid. Biliary Ducts: No intrahepatic or extrahepatic bile duct dilation. CBD measures 0.3 cm. Right Kidney: Imaged portions unremarkable. Ascites: None. FINAL REPORT Dictated: 05/12/2022 8:54 am Bronson Parry MD Signed (Electronic Signature): 05/12/2022 8:54 am Signed by: Bronson Parry MD Transcribed by: RACIEL Technologist: ASHISH Normal [facility] eGFRon 05-12-2022 GFR/1.73 sq M.predicted among blacks MDRD (S/P/Bld) [Vol rate/Area] mL/min/{1.73_m2} Normal >=59 [facility] Comment on above: Order Comment: Order added by Discern Expert. Result Comment: eGFR is race adjusted. AA=. Performed By: #### 2 [id number], [id number], [id number], [id number], [id number] ####[facility] [id number] [place] [address] GFR/1.73 sq M.predicted among non-blacks MDRD (S/P/Bld) [Vol rate/Area] mL/min/{1.73_m2} Normal >=59 [facility] Comment on above: Order Comment: Order added by Discern Expert. Result Comment: Exhibit Display Representative carl kidney disease could be indicated at eGFR's of less than 60 mL/min/1.73m2. Kidney failure is indicated at less than 15 mL/min/1.73m2. Performed By: #### 2 [id number], [id number], [id number], [id number], [id number], [id number] ####[facility] [id number] [place] [address] BLOOD BANKOrdered By: Hillary Coppola on 05-11-2022 ABO/Rh Retype Interp Positive Invalid Interpretation Code [facility] BB Subsection CHEMISTRYOrdered By: SYSTEM SYSTEM on 05-11-2022 Albumin [Mass/Vol] 4.6 g/dL Normal 3.3 - 5.0 gm/dL [facility] Albumin/Globulin [Mass ratio] 1.6 {ratio} Normal 1.1 - 2.2 [facility] ALP [Catalytic activity/Vol] 44 [iU]/d Normal 21 - 98 Int._Unit/L [facility] Remisol ALT No additional P-5'-P [Catalytic activity/Vol] 34 [iU]/d Normal 6 - 46 Int._Unit/L [facility] Remisol Anion gap [Moles/Vol] 16 mmol/L Normal 6 - 16 mEq/L [facility] Rem[facility] AST [Catalytic activity/Vol] 29 [iU]/d Normal 5 - 43 Int._Unit/L [facility] Bilirubin [Mass/Vol] 0.9 mg/dL Normal 0.0 - 1 .1 mg/dL [facility]isol Bilirubin.direct [Mass/Vol] 0.1 mg/dL Normal 0.1 - 0.4 mg/dL [facility] Remisol Bilirubin.indirect [Mass or moles/Vol] 0.8 mg/dL Normal 0.1 - 0.9 mg/dL [facility] Calcium [Mass/Vol] 9.5 mg/dL Normal 8.9 - 11. 1 mg/dL [facility] Chloride [Moles/Vol] 102 mmol/L Normal 101 - 1 11 mmol/L [facility] CO2 [Moles/Vol] 23 mmol/L Normal 21 - 31 mmol/L [facility] Creatinine [Mass/Vol] 1.0 mg/dL Normal 0.5 - 1.3 mg/dL [facility] GFR/1.73 sq M.predicted among blacks MDRD (S/P/Bld) [Vol rate/Area] mL/min/1.73 m2 Normal >=59mL/min/1. 73 m2 [facility] Chem S GFR/1.73 sq M.predicted among non-blacks MDRD (S/P/Bld) [Vol rate/Area] mL/min/1.73 m2 Normal >=59mL/min/1. 73 m2 [facility] Chem S Globulin (S) [Mass/Vol] 2.8 g/dL Normal 1.4 - 4.0 gm/dL [facility] Glucose [Mass/Vol] 125 mg/dL Normal 55 - 199 mg/dL [facility] Lipase [Catalytic activity/Vol] 39 U/L Normal 13 - 58 unit/L [facility] Potassium [Moles/Vol] 3.8 mmol/L Normal 3.5 - 5.3 mmol/L [facility] Protein [Mass/Vol] 7.4 g/dL Normal 6.0 - 7.8 gm/dL [facility] Sodium [Moles/Vol] 137 mmol/L Normal 135 - 145 mmol/L [facility] Urea nitrogen [Mass/Vol] 15 mg/dL Normal 5 - 21 mg/dL [facility] Urea nitrogen/Creatinine [Mass ratio] 15 mg/mg Normal 10 - 20 [facility] HEMATOLOGYOrdered By: SYSTEM SYSTEM on 05-11-2022 Basophils/100 WBC (Bld) 0.4 % Normal 0.0 - 2.0 % [facility] HemeAutoSS Basophils/Leukocytes Auto (Bld) [Pure # fraction] 0.1 E9/L Normal 0.0 - 0.2 E9/L [facility] HemeAutoSS Eosinophils/100 WBC (Bld) 1.2 % Normal 0.0 - 8.0 % [facility] HemeAutoSS Eosinophils/Leukocyte s Auto (Bld) [Pure # fraction] 0.2 E9/L Normal 0.0 - 0.5 E9/L [facility] HemeAutoSS Lymphocytes/100 WBC (Bld) 16.5 % Normal 14.0 - 50.0 % [facility] HemeAutoSS Lymphocytes/Leukocyte s Auto (Bld) [Pure # fraction] 3.2 E9/L Normal 1.0 - 4.0 E9/L [facility] HemeAutoSS Monocytes/100 WBC (Bld) 4.7 % Normal 4.0 - 14.0 % [facility] HemeAutoSS Monocytes/Leukocytes Auto (Bld) [Pure # fraction] 0.9 E9/L Normal 0.2 - 1.0 E9/L [facility] HemeAutoSS Neutrophils/100 WBC (Bld) 77.2 % High 36.0 - 75.0 % [facility] HemeAutoSS Neutrophils/Leukocyte s Auto (Bld) [Pure # fraction] 14.9 E9/L High 2.0 - 7.5 E9/L [facility] HemeAutoSS HEMATOLOGYOrdered By: Stefani Saleh on 05-11-2022 Erythrocyte distribution width (RBC) [Ratio] 13.2 % Normal 10.9 - 14.2 % [facility] HemeAutoSS Hematocrit (Bld) [Volume fraction] 45.3 % Normal 34.0 - 46.0 % [facility] HemeAutoSS Hemoglobin (Bld) [Mass/Vol] 15.6 g/dL Normal 12.0 - 16.0 gm/dL [facility] HemeAutoSS MCH (RBC) [Entitic mass] 30.0 pg Normal 27.0 - 34.0 pg [facility] HemeAutoSS MCHC (RBC) [Mass/Vol] 34.4 g/dL Normal 31.4 - 36.0 gm/dL [facility] HemeAutoSS MCV (RBC) [Entitic vol] 87.2 fL Normal 80.0 - 100.0 fL [facility] HemeAutoSS Platelet mean volume (Bld) [Entitic vol] 8.9 fL Normal 6.4 - 10.8 fL [facility] HemeAutoSS Platelets (Bld) [#/Vol] 325.0 E9/L Normal 150.0 - 500.0 E9/L [facility] HemeAutoSS RBC (Bld) [#/Vol] 5.2 E12/L Normal 4.3 - 5.9 E12/L [facility] HemeAutoSS WBC corrected for nucl RBC Auto (Bld) [#/Vol] 19.3 E9/L High 4.0 - 11.0 E9/L [facility]eAuto[facility] Comment on above: Result Comment: Slid e reviewed by MM. Provider Letteron 05-09-2022 Provider Letter May 09, 2022 JULISSA WEEMS [address] [place] [phone] JULISAS WEEMS 1990 Dear Julissa , We have been trying to reach you with no success. It is important that you return our call upon receiving this letter. Also, at the time of your call, please provide us with your current information. Thank you for your prompt attention to this matter. Sincerely, [facility] [address] [place] [address], [address] [place] [id number] [facility] Ambulatory Visit Summaryon 0 04-12-2022 Ambulatory Visit Summary JULISSA WEEMS :1990 Visit Date:04/12/2022 Ambulatory Visit Instructions Your Diagnosis Adult BMI 37.0-37.9 kg/sq m, Body mass index 37.0-37.9, adult Encounter for weight management PCOS (polycystic ovarian syndrome) Your Care Team Attending Physician - Helene HAMILTON CNP Primary Care Physician - Helene HAMILTON CNP This Is Your Medications List naltrexone (naltrexone 50 mg oral tablet) semaglutide (Ozempic 2 mg/1.5 mL (0.25 mg or 0.5 mg dose) subcutaneous solution) Contact prescribing physician if questions or concerns Non-Formulary Medication albuterol (ProAir HFA 90 mcg/inh inhalation aerosol) albuterol (Ventolin HFA 90 mcg/inh Aerosol) buPROPion (Wellbutrin XL 150 mg/24 hours Tab-ER) fexofenadine (Susy 24 Hour) inositol (Ovasitol) melatonin (melatonin 1 mg oral tablet) montelukast (Singulair 10 mg Tab) multivitamin (Vitamin B Complex oral tablet) ondansetron (Zofran ODT 4 mg Tab-Dis) spironolactone (spironolactone 25 mg Tab) valacyclovir (Valtrex 1 g Tab) Procedures Performed None. Discharge Vitals Temperature (Oral) 37.1 ?C Heart Rate (Peripheral) 83 Blood Pressure 118/80 Height 170.0 cm Height 170 cm Weight 96.7 kg Weight 96.7 kg BMI 33.46 What to do next Scheduled Follow-Up Appointments Monday 10:40 AM EDT With: Helene HAMILTON CNP Where: [facility] Primary Care Normal [facility] Family Medicine Office/Clini c Noteon 04-12-2022 Family Medicine Office/Clinic Note Chief Complaint Patient presents for 1 month f/u for weight loss. Patient is down 3 lbs since last visit. History of Present Illness Pt presents today for weight management visit She was tried on Adipex last month but again was not able to take that, so we did send in a script for naltrexone, she is currently taking wellbutrin for depression. We are attempting to dose as per ky. She has lost 3 pounds in the past month. States she will be starting her period soon however and she usually bounces up with the weight a little before that Diet - no longer drinking alcohol at all. Exercise - riding her exercise bike she is also taking ozempic due to her insulin resistance States her appetite has been decreased but states it's subtle Review of Systems Constitutional: no fever, no chills Skin: no rashes after not taking the Adipex after the first dose. Raymond hives on the backs of her legs right after taking but stopped after that first dose Respiratory: no shortness of breath Cardiovascular: no chest pain Gastrointestinal: admits some nausea after starting the naltrexone but that is better, no vomiting, she did have a little diarrhea after starting the natrexone, but that is better Psychiatric: see depression screen. Physical Exam Vitals & Measurements T: 37.1 ?C(Oral) HR: 83(Peripheral) BP: 118/80 SpO2: 98% HT: 170.0 cm HT: 170 cm WT: 96.7 kg WT: 96.7 kg BMI: 33.46 General: Well developed, well nourished, in no acute distress Eyes: Conjunctivae and sclera are clear Ears: Hearing grossly normal to conversational speech Lungs: Normal respiratory effort and clear to auscultation Cardio: HRR, no murmur Pulses: Posterior tibial pulses X 2 Abdomen: Soft, non-distended, non-tender Musculoskeletal: Ambulates unassisted; gait steady Extremity: No edema of bilateral lower extremities Neurologic: Grossly normal Skin: No rashes, ulcerations, or suspicious lesions, no excessive bruising visible with clothes on Mental Status: Alert and oriented x3. Normal mood and affect Assessment/Plan 1. Adult BMI 37.0-37.9 kg/sq m, (Z68.37: Body mass index [BMI] 37.0-37.9, adult)Body mass index 37.0-37.9, adult The standard range for ages 18 and older is >=18.5 and < 25 kg/m2. Your BMI today was above this range, this falls in the overweight to obese category and there are medical benefits to weight loss. We can offer counselling, referral, and/or medical support in addressing this problem. Your BMI and weight management will be followed at subsequent visits. Ordered: Body Mass Index (BMI) documented 3008F Current tobacco non-user 1036F Depression Screening Negative 3352F Influenza immunization status assessed 1030F 3. Encounter for weight management (Z76.89: Persons encountering health services in other specified circumstances) continue naltrexone - can increase dose if desired 4. PCOS (polycystic ovarian syndrome) (E28.2: Polycystic ovarian syndrome) continue ozempic, can increase dose to 0.5. May need to go up past that as well 5. Obesity (E66.9: Obesity, unspecified) Orders: naltrexone, See Instructions, 1 tablet daily, # 90 tab(s), Refills(s) 0, Pharmacy: [id number], 170, cm, 04/12/22 11:02:00 EDT, Height/Length Dosing, 96.7, kg, 04/12/22 11:02:00 EDT, Weight Dosing semaglutide, 0.5 mg, SubCutaneous, qWeek, 1 EA, Refill(s) 5, [facility] #[id number], 170, cm, 04/12/22 11:02:00 EDT, Height/Length Dosing, 96.7, kg, 04/12/22 11:02:00 EDT, Weight Dosing Follow-up With When Contact Information Helene HAMILTON CNP In [address] [facility] [place] [id number]- Additional Instructions: Patient Education BMI for Adults Diet for Polycystic Ovary Syndrome Problem List/Past Medical History Ongoing Allergies Anxiety Cold sore Depression Encounter for weight management High risk medication use Hives Hyperlipidemia Hypersensitivity Obesity PCOS (polycystic ovarian syndrome) Prediabetes Urticaria multiforme Vitamin D deficiency Historical Adult BMI 30.0-30.9 kg/sq m Adult BMI 31.0-31.9 kg/sq m Adult BMI 32.0-32.9 kg/sq m Adult BMI 33.0-33.9 kg/sq m Adult BMI 34.0-34.9 kg/sq m Body mass index 32.0-32.9, adult Body mass index 34.0-34.9, adult Class 1 obesity with body mass index (BMI) of 30.0 to 30.9 in adult Class 1 obesity with body mass index (BMI) of 31.0 to 31.9 in adult Class 1 obesity with body mass index (BMI) of 32.0 to 32.9 in adult Class 1 obesity with body mass index (BMI) of 33.0 to 33.9 in adult PCOS - Polycystic ovarian syndrome Procedure/Surgical History None. Medications Susy 24 Hour, See Instructions melatonin 1 mg oral tablet, 1 mg= 1 tab(s), Oral, Once a day (at bedtime), PRN naltrexone 50 mg oral tablet, See Instructions Non-Formulary Medication Ovasitol, 1 packet(s), Oral, BID Ozempic 2 mg/1.5 mL (0.25 mg or 0.5 mg dose) subcutaneous solution, 0.5 mg, SubCutaneous, qWeek, 5 r (more content not included)... Normal [facility] Comment on above: Result Comment: Elec tronically Signed By: Helene HAMILTON CNP\.br\Date and Time Signed: 04/12/22 11:21 EDT Patient Educationon 04-12-20 22 Patient Education Nutrition BMI for Adults Body mass index (BMI) is a number that is calculated from a person's weight and height. BMI may help to estimate how much of a person's weight is composed of fat. BMI can help identify those who may be at higher risk for certain medical problems. How is BMI used with adults? BMI is used as a screening tool to identify possible weight problems. It is used to check whether a person is obese, overweight, healthy weight, or underweight. How is BMI calculated? BMI measures your weight and compares it to your height. This can be done either in [place] or metric measurements. Note that charts are available to help you find your BMI quickly and easily without having to do these calculations yourself. To calculate your BMI in [place] measurements, your health care provider will: 1. Measure your weight in pounds (lb). 2. Multiply the number of pounds by 703. ? For example, for a person who weighs 180 lb, multiply that number by 703, which equals 126,540. 3. Measure your height in inches (in). Then multiply that number by itself to get a measurement called inches squared. ? For example, for a person who is 70 in tall, the inches squared measurement is 70 in x 70 in, which equals 4900 inches squared. 4. Divide the total from Step 2 (number of lb x 703) by the total from Step 3 (inches squared): 126,540 ? 4900 = 25.8. This is your BMI. To calculate your BMI in metric measurements, your health care provider will: 1. Measure your weight in kilograms (kg). 2. Measure your height in meters (m). Then multiply that number by itself to get a measurement called meters squared. ? For example, for a person who is 1.75 m tall, the meters squared measurement is 1.75 m x 1.75 m, which is equal to 3.1 meters squared. 3. Divide the number of kilograms (your weight) by the meters squared number. In this example: 70 ? 3.1 = 22.6. This is your BMI. How is BMI interpreted? To interpret your results, your health care provider will use BMI charts to identify whether you are underweight, normal weight, overweight, or obese. The following guidelines will be used: ? Underweight: BMI less than 18.5. ? Normal weight: BMI between 18.5 and 24.9. ? Overweight: BMI between 25 and 29.9. ? Obese: BMI of 30 and above. Please note: ? Weight includes both fat and muscle, so someone with a muscular build, such as an athlete, may have a BMI that is higher than 24.9. In cases like these, BMI is not an accurate measure of body fat. ? To determine if excess body fat is the cause of a BMI of 25 or higher, further assessments may need to be done by a health care provider. ? BMI is usually interpreted in the same way for men and women. Why is BMI a useful tool? BMI is useful in two ways: ? Identifying a weight problem that may be related to a medical condition, or that may increase the risk for medical problems. ? Promoting lifestyle and diet changes in order to reach a healthy weight. Summary ? Body mass index (BMI) is a number that is calculated from a person's weight and height. ? BMI may help to estimate how much of a person's weight is composed of fat. BMI can help identify those who may be at higher risk for certain medical problems. ? BMI can be measured using [place] measurements or metric measurements. ? To interpret your results, your health care provider will use BMI charts to identify whether you are underweight, normal weight, overweight, or obese. This information is not intended to replace advice given to you by your health care provider. Make sure you discuss any questions you have with your health care provider. Document Released: 06/20/2005 Document Revised: 09/21/2018 Document Reviewed: 08/22/2018 [employer] Patient Education ? 2020 Badge. Obstetrics and Gynecology Diet for Polycystic Ovary Syndrome Polycystic ovary syndrome (PCOS) is a disorder of the chemicals (hormones) that regulate a woman's reproductive system, including monthly periods (menstruation). The condition causes important hormones to be out of balance. PCOS can: ? Stop your periods or make them irregular. ? Cause cysts to develop on your ovaries. ? Make it difficult to get . ? Stop your body from responding to the effects of insulin (insulin resistance). Insulin resistance can lead to obesity and diabetes. Changing what you eat can help you manage PCOS and improve your health. Following a balanced diet can help you lose weight and improve the way that your body uses insulin. What are tips for following this plan? ? Follow a balanced diet for meals and snacks. Eat breakfast, lunch, dinner, and one or two snacks every day. ? Include protein in each meal and snack. ? Choose whole grains instead of products that are made with refined flour. ? Eat a variety of foods. ? Exercise regularly as told by your health care provider. Aim to do 30 or more minutes of exercise on most days of (more content not included)... [facility] Ambulatory Visit Summaryon 0 03-08-2022 Ambulatory Visit Summary JULISSA WEEMS :1990 Visit Date:03/08/2022 Ambulatory Visit Instructions Your Care Team Attending Physician - Helene HAMILTON CNP Primary Care Physician - Helene HAMILTON CNP This Is Your Medications List buPROPion (Wellbutrin XL 150 mg/24 hours Tab-ER) phentermine (Adipex-P 37.5 mg Tab) Contact prescribing physician if questions or concerns Non-Formulary Medication albuterol (ProAir HFA 90 mcg/inh inhalation aerosol) albuterol (Ventolin HFA 90 mcg/inh Aerosol) fexofenadine (Susy 24 Hour) inositol (Ovasitol) melatonin (melatonin 1 mg oral tablet) montelukast (Singulair 10 mg Tab) multivitamin (Vitamin B Complex oral tablet) ondansetron (Zofran ODT 4 mg Tab-Dis) spironolactone (spironolactone 25 mg Tab) valacyclovir (Valtrex 1 g Tab) Procedures Performed None. Discharge Vitals Temperature (Oral) 37.5 ?C Heart Rate (Peripheral) 84 Blood Pressure 118/84 Height 170 cm Height 170.0 cm Weight 98.4 kg Weight 98.4 kg BMI 34.05 What to do next Scheduled Follow-Up Appointments Monday 11:20 AM EDT With: Helene HAMILTON CNP Where: [facility] Primary Care [facility] Family Medicine Office/Clini c Noteon 03-08-2022 Family Medicine Office/Clinic Note Chief Complaint Patient presents to discuss weight loss. History of Present Illness Presents today to discuss weight loss. Would like to try Adipex again. did have some issues with hives but she was taking ozempic at the same time Has an exercise bike and will be using that for exercise generally tries to follow a low carb diet She does have PCOS and this does make it more difficult for her to lose weight Review of Systems Constitutional: no fever, no chills Ears: no ear pain, pressure or drainage Eyes: no eye pain, changes in vision, spots before the eyes Nose: no bloody noses Mouth/Throat: no sore throat, no difficulty chewing and swallowing. Respiratory: no shortness of breath Cardiovascular: no chest pain, no palpitations, no edema. Gastrointestinal: no nausea, no vomiting, no diarrhea Neurologic: no headache, no dizziness Psychiatric: see depression screen. Physical Exam Vitals & Measurements T: 37.5 ?C(Oral) HR: 84(Peripheral) BP: 118/84 SpO2: 97% HT: 170 cm HT: 170.0 cm WT: 98.4 kg WT: 98.4 kg BMI: 34.05 General: Well developed, well nourished, in no acute distress Eyes: PERRL, conjunctivae and sclera are clear Ears: No deformity or lesion of external ear. Canals and TM appear normal bilaterally. TM?s intact, not inflamed, with normal light reflex. Hearing grossly normal to conversational speech Mouth: Mucous membranes moist. Normal oropharynx, and posterior pharynx without lesions or exudates. Tongue normal Lungs: Normal respiratory effort and clear to auscultation Cardio: HRR, no murmur Pulses: Posterior tibial pulses X 2 Abdomen: Soft, non-distended, non-tender Musculoskeletal: Ambulates unassisted; gait steady Extremity: No edema of bilateral lower extremities Neurologic: Grossly normal Skin: No rashes, ulcerations, or suspicious lesions, no excessive bruising visible with clothes on Mental Status: Alert and oriented x3. Normal mood and affect Assessment/Plan 1. Adult BMI 34.0-34.9 kg/sq m (Z68.34: Body mass index [BMI] 34.0-34.9, adult) The standard range for ages 18 and older is >=18.5 and < 25 kg/m2. Your BMI today was above this range, this falls in the overweight to obese category and there are medical benefits to weight loss. We can offer counselling, referral, and/or medical support in addressing this problem. Your BMI and weight management will be followed at subsequent visits. 2. Encounter for weight management (Z76.89: Persons encountering health services in other specified circumstances) Adipex #1 Discussed importance of diet and exercise to be used in conjunction with medication management. Keep food and exercise log and bring to all appointments OARRS reviewed and no suspicious activity is noted. Discussed potential side effects of Adipex: Must STOP adipex for chest pain, shortness of breath, palpitations Other side effects which may occur include dry mouth and constipation (increase water/liquids) and insomnia (take in AM) RTC 1 month - call for problems sooner 3. High risk medication use (Z79.899: Other terminal supervisor (current) drug therapy) OARRS reviewed and no suspicious activity is noted 4. PCOS (polycystic ovarian syndrome) (E28.2: Polycystic ovarian syndrome) 5. Obesity (E66.9: Obesity, unspecified) Orders: benzonatate, 100 mg = 1 cap(s), Oral, TID, # 45 cap(s), Refills(s) 0, Pharmacy: [facility] #[id number], 170, cm, 11/17/21 13:11:00 EST, Height/Length Dosing, 93.3, kg, 11/17/21 13:11:00 EST, Weight Dosing brompheniramine/dext romethorphan/PSE, 5 mL, Oral, QID for cold symptoms, 200 mL, Refill(s) 0, [facility] #[id number], 170, cm, 11/17/21 13:11:00 EST, Height/Length Dosing, 93.3, kg, 11/17/21 13:11:00 EST, Weight Dosing buPROPion, 150 mg = 1 tab(s), Oral, q24hr, # 30 tab(s), Refills(s) 2, Pharmacy: [facility] #[id number], 170, cm, 03/08/22 10:25:00 EDT, Height/Length Dosing, 98.4, kg, 03/08/22 10:25:00 EDT, Weight Dosing phentermine, 37.5 mg = 1 tab(s), Oral, Daily, Adipex #1; OARRS reviewed; 30 days supply; DX E66.9, # 30 tab(s), Refills(s) 0, Pharmacy: [facility] #[id number], 170, cm, 03/08/22 10:25:00 EDT, Height/Length Dosing, 98.4, kg, 03/08/22 10:25:00 EDT, Weight Dosing Follow-up With When Contact Information [facility]ILTON CNP [facility] [address] [facility] [employer] [place] [phone]- Additional Instructions: Patient Education BMI for Adults Health Maintenance, Female Problem List/Past Medical History Ongoing Adult BMI 34.0-34.9 kg/sq m Allergies Anxiety Body mass index 34.0-34.9, adult Cold sore Depression Encounter for weight management High risk medication use Hives Hyperlipidemia Hypersensitivity Obesity PCOS (polycystic ovarian syndrome) Prediabetes Urticaria multiforme Vitamin D deficiency Historical Adult BMI 30.0-30.9 kg/sq m Adult BMI 31.0-31.9 kg/sq m Adult BMI 32.0-32.9 kg/sq m Adult BMI 33.0-33.9 kg/sq m Body mass index 32.0-32.9, adult Class (more content not included)... Normal [facility] Comment on above: Result Comment: Elec tronically Signed By: Helene HAMILTON CNP\.br\Date and Time Signed: 03/08/22 12:47 EDT Patient Educationon 03-08-20 Patient Education Nutrition BMI for Adults Body mass index (BMI) is a number that is calculated from a person's weight and height. BMI may help to estimate how much of a person's weight is composed of fat. BMI can help identify those who may be at higher risk for certain medical problems. How is BMI used with adults? BMI is used as a screening tool to identify possible weight problems. It is used to check whether a person is obese, overweight, healthy weight, or underweight. How is BMI calculated? BMI measures your weight and compares it to your height. This can be done either in [place] or metric measurements. Note that charts are available to help you find your BMI quickly and easily without having to do these calculations yourself. To calculate your BMI in [place] measurements, your health care provider will: 1. Measure your weight in pounds (lb). 2. Multiply the number of pounds by 703. ? For example, for a person who weighs 180 lb, multiply that number by 703, which equals 126,540. 3. Measure your height in inches (in). Then multiply that number by itself to get a measurement called inches squared. ? For example, for a person who is 70 in tall, the inches squared measurement is 70 in x 70 in, which equals 4900 inches squared. 4. Divide the total from Step 2 (number of lb x 703) by the total from Step 3 (inches squared): 126,540 ? 4900 = 25.8. This is your BMI. To calculate your BMI in metric measurements, your health care provider will: 1. Measure your weight in kilograms (kg). 2. Measure your height in meters (m). Then multiply that number by itself to get a measurement called meters squared. ? For example, for a person who is 1.75 m tall, the meters squared measurement is 1.75 m x 1.75 m, which is equal to 3.1 meters squared. 3. Divide the number of kilograms (your weight) by the meters squared number. In this example: 70 ? 3.1 = 22.6. This is your BMI. How is BMI interpreted? To interpret your results, your health care provider will use BMI charts to identify whether you are underweight, normal weight, overweight, or obese. The following guidelines will be used: ? Underweight: BMI less than 18.5. ? Normal weight: BMI between 18.5 and 24.9. ? Overweight: BMI between 25 and 29.9. ? Obese: BMI of 30 and above. Please note: ? Weight includes both fat and muscle, so someone with a muscular build, such as an athlete, may have a BMI that is higher than 24.9. In cases like these, BMI is not an accurate measure of body fat. ? To determine if excess body fat is the cause of a BMI of 25 or higher, further assessments may need to be done by a health care provider. ? BMI is usually interpreted in the same way for men and women. Why is BMI a useful tool? BMI is useful in two ways: ? Identifying a weight problem that may be related to a medical condition, or that may increase the risk for medical problems. ? Promoting lifestyle and diet changes in order to reach a healthy weight. Summary ? Body mass index (BMI) is a number that is calculated from a person's weight and height. ? BMI may help to estimate how much of a person's weight is composed of fat. BMI can help identify those who may be at higher risk for certain medical problems. ? BMI can be measured using [place] measurements or metric measurements. ? To interpret your results, your health care provider will use BMI charts to identify whether you are underweight, normal weight, overweight, or obese. This information is not intended to replace advice given to you by your health care provider. Make sure you discuss any questions you have with your health care provider. Document Released: 06/20/2005 Document Revised: 09/21/2018 Document Reviewed: 08/22/2018 [employer] Patient Education ? 2019 Badge. Obstetrics and Gynecology Health Maintenance, Female Adopting a healthy lifestyle and getting preventive care are important in promoting health and wellness. Ask your health care provider about: ? The right schedule for you to have regular tests and exams. ? Things you can do on your own to prevent diseases and keep yourself healthy. What should I know about diet, weight, and exercise? Eat a healthy diet ? Eat a diet that includes plenty of vegetables, fruits, low-fat dairy products, and lean protein. ? Do not eat a lot of foods that are high in solid fats, added sugars, or sodium. Maintain a healthy weight Body mass index (BMI) is used to identify weight problems. It estimates body fat based on height and weight. Your health care provider can help determine your BMI and help you achieve or maintain a healthy weight. Get regular exercise Get regular exercise. This is one of the most important things you can do for your health. Most adults should: ? Exercise for at least 150 minutes each week. The exercise should increase your heart rate and make you sweat (moderate-intensity exe (more content not included)... Normal [facility] Coding Summaryon 05-26-2020 Coding Summary CODING DATE: 05/26/2020 [facility] STATUS: Home PAYOR: Commercial Insurance ADMIT DX: REASON FOR VISIT DX: R05 Cough R09.81 Nasal congestion R52 Pain, unspecified FINAL DX: PRINCIPAL: J06.9 Acute upper respiratory infection, unspecified SECONDARY: Z20.828 Contact with and (suspected) exposure to other viral communicable diseases R05 Cough B34.8 Other viral infections of unspecified site PYMT PROC APC STAT DESCRIPTION DOCTOR NAME DATE NOTE: The code number assigned matches the documented diagnosis and / or procedure in the patient's chart. However, the narrative phrase printed from the coding software may appear abbreviated, or result in slightly different terminology. Coded By: Essie Beyer Date Saved: 05/26/2020 10:[address] [facility] ED Note-Nursingon 05-26-2020 ED Note-Nursing Pt calls and gives verbal permission to copy lab result and mail to her home. [address] [facility] Consent Formson 05-25-2020 Consent Forms [id number] [facility] .QC Respiratory Panel 2.1 (B ioFire)on 05-23-2020 Internal Control-Resp Panel 2.1(BioFire) Pass [facility] Comment on above: Order Comment: Order ed by [employer]cern. [[id number]] Performed By: #### [id number] #### [facility] (DEFAULT) [address] [place] [address] ED Clinical Summaryon 2019 ED Clinical Summary [facility] ? Urgent Care [address] [place], [place] [id number] Clinical Summary PERSON INFORMATION Name: JULISSA WEEMS Age: 29 Years Sex: FEMALE : 1990 MRN: Acct#: Visit Reason: FEVER, SOB, COUGH Arrival: 05/23/2020 13:31:24 Discharge: 05/23/2020 14:23:00 LOS: 000 00:52 Check In: 05/23/2020 13:31:24 Checkout: 05/23/2020 14:23:00 Address: [address] [place] [id number] PCP: Provider, None PROVIDER INFORMATION Provider Role Assigned Unassigned Heath Argueta PA-C ED PA 05/23/2020 13:46:58 Jorge LOPEZ, Janis ED Nurse 05/23/2020 13:48:03 VITALS INFORMATION Vital Sign Triage Latest Temperature Tympanic Temperature Temporal Artery Pulse Rate O2 Sat 98 % 98 % Respiratory Rate Blood Pressure /86 mmHg /86 mmHg MEDICAL INFORMATION Medications Given: Allergy Information: No Known Medication Allergies PHYSICIAN DOCUMENTATION DISCHARGE INFORMATION: Discharge Disposition: Home Discharge Location: Home PATIENT EDUCATION INFORMATION Instructions: Upper Respiratory Infection, Adult, [id number] Follow-Up: With: Address: When: [facility], [address] [place] [address] [phone] Business (1) Comments: Please follow-up with your primary care doctor or Dr. Esquivel medical doctor heating and ventilation engineer, their office schedule an appointment to be seen in 3 to 5 days for continued care, take only Tylenol for headaches or fevers, drink plenty of water for hydration, notified with your COVID-19 results, and return back to the urgent care center for any worsening symptoms, concerns, or complications. DIAGNOSIS: 1:Upper respiratory tract infection; 2:Suspected COVID-19 virus infection; 3:Cough Patient Understands: Yes - Patient/family/careg iver verbalizes understanding of instructions given Comment: Normal [facility] ED Patient Summaryon 020 ED Patient Summary [facility] ? Urgent Care [address] [place], [place] [id number] PATIENT DISCHARGE INSTRUCTIONS Patient Information Name: JULISSA WEEMS Age: 29 Years Date of : 1990 Reason For Visit: FEVER, SOB, COUGH Arrival Time: 05/23/2020 13:31:24 Primary Care Physician: Provider, None Attending Physician: Heath Argueta PA-C Comment: Patient Education With: Address: When: [facility], [address] [place] [id number] Business (1) Comments: Please follow-up with your primary care doctor or Dr. Esquivel medical doctor heating and ventilation engineer, their office schedule an appointment to be seen in 3 to 5 days for continued care, take only Tylenol for headaches or fevers, drink plenty of water for hydration, notified with your COVID-19 results, and return back to the urgent care center for any worsening symptoms, concerns, or complications. Upper Respiratory Infection, Adult An upper respiratory infection (URI) affects the nose, throat, and upper air passages. URIs are caused by germs (viruses). The most common type of URI is often called the common cold. Medicines cannot cure URIs, but you can do things at home to relieve your symptoms. URIs usually get better within 7?10 days. Follow these instructions at home: Activity ? Rest as needed. ? If you have a fever, stay home from work or school until your fever is gone, or until your doctor says you may return to work or school. ? You should stay home until you cannot spread the infection anymore (you are not contagious). ? Your doctor may have you wear a face mask so you have less risk of spreading the infection. Relieving symptoms ? Gargle with a salt-water mixture 3?4 times a day or as needed. To make a salt-water mixture, completely dissolve ??1 tsp of salt in 1 cup of warm water. ? Use a cool-mist humidifier to add moisture to the air. This can help you breathe more easily. Eating and drinking ? Drink enough fluid to keep your pee (urine) pale yellow. ? Eat soups and other clear broths. General instructions ? Take blxo-chf-jxflyls and prescription medicines only as told by your doctor. These include cold medicines, fever reducers, and cough suppressants. ? Do not use any products that contain nicotine or tobacco. These include cigarettes and e-cigarettes. If you need help quitting, ask your doctor. ? Avoid being where people are smoking (avoid secondhand smoke). ? Make sure you get regular shots and get the flu shot every year. ? Keep all follow-up visits as told by your doctor. This is important. How to avoid spreading infection to others ? Wash your hands often with soap and water. If you do not have soap and water, use hand gericare aide teacher. ? Avoid touching your mouth, face, eyes, or nose. ? Cough or sneeze into a tissue or your sleeve or elbow. Do not cough or sneeze into your hand or into the air. Contact a doctor if: ? You are getting worse, not better. ? You have any of these: ? A fever. ? Chills. ? Brown or red mucus in your nose. ? Yellow or brown fluid (discharge)coming from your nose. ? Pain in your face, especially when you bend forward. ? Swollen neck glands. ? Pain with swallowing. ? White areas in the back of your throat. Get help right away if: ? You have shortness of breath that gets worse. ? You have very bad or constant: ? Headache. ? Ear pain. ? Pain in your forehead, behind your eyes, and over your cheekbones (sinus pain). ? Chest pain. ? You have long-lasting (chronic) lung disease along with any of these: ? Wheezing. ? Long-lasting cough. ? Coughing up blood. ? A change in your usual mucus. ? You have a stiff neck. ? You have changes in your: ? Vision. ? Hearing. ? Thinking. ? Mood. Summary ? An upper respiratory infection (URI) is caused by a germ called a virus. The most common type of URI is often called the common cold. ? URIs usually get better within 7?10 days. ? Take hzdv-tfe-syqfipf and prescription medicines only as told by your doctor. This information is not intended to replace advice given to you by your health care provider. Make sure you discuss any questions you have with your health care provider. Document Released: 03/27/2009 Document Revised: 06/01/2018 Document Reviewed: 06/01/2018 [employer] Interactive Patient Education ? 2019 [employer] Medication Information: The exam and treatment you received today in the [facility] Emergency Department were for an urgent problem and are not intended as complete care. It is important for you to follow up with a doctor, nurse practitioner, or physician?s assistant boys track coach for ongoing care. If your symptoms become worse or you do not improve as expected and you are unable to reach your usual health care provider, you should return to the Emergency Department, we are available 24 hours a day. For those patients who have received Radiology results, the interpretation of your X-ray as given to you by our Emergency Department physician is only a preliminary report. The Radiologist will review your films and if there is a change in the diagnosis you will be notified by phone. Please make sure you have provided a working phone number so we can reach you if necessary. In the event that you had a lab culture while you were a patient in the Emergency Department, you will be notified by phone if there is a need to change your antibiotic. Please make sure you have provided a working phone number so we can reach you if necessary. [facility] Emergency Department has provided you with a complete list of medications post discharge. Please inform your piecer/provider of your visit and for further instruction on these medications. Any specific questions regarding your chronic medications and dosages should be discussed with your primary care physician(s) and/or pharmacist. New Medications [id number], [address] [place], [place] [id number], [phone] homatropine-HYDROcod one (homatropine-hydroco done 1.5 mg-5 mg/5 mL oral syrup) 5 Milliliter Oral Every 4 hours as needed for cough for 7 Days. Refills: 0. Medications to Continue That Have Not Changed Other Medications acetaminophen (Tylenol) 500 Milligram Oral. cholecalciferol (Vitamin D3) every day. dextromethorphan-gua ifenesin (Robitussin DM) Oral every 4 hours. multivitamin (Multivitamin, generic) every day. pseudoephedrine (Sudafed) Oral every 6 hours. zinc sulfate (Zinc) 140 Milligram Oral every day. Visit Information Visit Diagnosis: Diagnoses This Visit Cough (R05) Suspected COVID-19 virus infection (Z20.828) Upper respiratory tract infection (J06.9) If you received any narcotics, sedation, or any other medication that causes drowsiness for the next 24 hours, unless otherwise directed: ? Do not drive a car. ? Do not operate machinery such as power tools, lawn mowers, drills, sewing machines, or stoves ? Avoid alcoholic beverages and drugs for allergies, nerves, or sleep ? Do not make important personal or business decisions or sign any legal documents Reason for Visit: starting night, dry cough, sore throat, congestion, shortness of breath with walking up stairs, loss of taste and smell, chills, achiness, fatigue, diarrhea Allergies: Substance Reaction Symptoms Type Comments No Known Medication Allergies Drug Vital Signs: Vitals and Measurements this Visit (last charted value for your 05/23/2020 visit) Vital Signs This Visit Temperature Oral: 37 DegC Peripheral Pulse Rate: 98 bpm Respiratory Rate: 18 br/min Systolic Blood Pressure: 131 mmHg Diastolic Blood Pressure: 86 mmHg SpO2: 98 % Oxygen Therapy: Room air Measurements This Visit Height: 171.45 cm Weight: 87.09 kg Body Mass Index: 29.63 kg/m2 Problems List: Problem Onset Comments PCOS (polycystic ovarian syndrome) Major Tests and Procedures: The following procedures and tests were performed during your ED visit. Laboratory .QC Respiratory Panel 2.1 (BioFire) Nasopharyngeal Swab, Collected, 05/23/20 14:00:00 EDT, Stat collect, Stop date 05/23/20 14:00:00 EDT, Nurse collect Respiratory Panel 2.1 w COVID-19 (BioFire) Nasopharyngeal Swab, 05/23/20 13:51:00 EDT, Stat collect, Stop date 05/23/20 13:51:00 EDT, Nurse collect Radiology Cardiology Viruses or Bacteria What?s got you sick? Antibiotics only treat bacterial infections. Viral illnesses cannot be treated with antibiotics. When an antibiotic is not prescribed, ask your healthcare professional for tips on how to relieve symptoms and feel better. Usual Cause Illness Viruses Bacteria Antibiotic Needed Cold/Runny Nose NO Bronchitis/Chest Cold (in otherwise healthy children and adults) NO Whooping Cough Yes Flu NO Strep Throat Yes Sore Throat (except strep) NO Fluid in the middle ear (otitis media with effusion) NO Urinary Tract Infection Yes Antibiotics Aren?t Always the Answer www.cdc.gov/getsmart GET SMART Know When Antibiotics Work [place] Department of Health and Human Services Centers for Disease Control and Prevention June [address] [facility] Patient Handouton 05-23-2020 Patient Handout Patient Education Materials Follows:Disease Upper Respiratory Infection, Adult An upper respiratory infection (URI) affects the nose, throat, and upper air passages. URIs are caused by germs (viruses). The most common type of URI is often called the common cold. Medicines cannot cure URIs, but you can do things at home to relieve your symptoms. URIs usually get better within 7?10 days. Follow these instructions at home: Activity ? Rest as needed. ? If you have a fever, stay home from work or school until your fever is gone, or until your doctor says you may return to work or school. ? You should stay home until you cannot spread the infection anymore (you are not contagious). ? Your doctor may have you wear a face mask so you have less risk of spreading the infection. Relieving symptoms ? Gargle with a salt-water mixture 3?4 times a day or as needed. To make a salt-water mixture, completely dissolve ??1 tsp of salt in 1 cup of warm water. ? Use a cool-mist humidifier to add moisture to the air. This can help you breathe more easily. Eating and drinking ? Drink enough fluid to keep your pee (urine) pale yellow. ? Eat soups and other clear broths. General instructions ? Take bkai-ywm-bkrifxh and prescription medicines only as told by your doctor. These include cold medicines, fever reducers, and cough suppressants. ? Do not use any products that contain nicotine or tobacco. These include cigarettes and e-cigarettes. If you need help quitting, ask your doctor. ? Avoid being where people are smoking (avoid secondhand smoke). ? Make sure you get regular shots and get the flu shot every year. ? Keep all follow-up visits as told by your doctor. This is important. How to avoid spreading infection to others ? Wash your hands often with soap and water. If you do not have soap and water, use hand gericare aide teacher. ? Avoid touching your mouth, face, eyes, or nose. ? Cough or sneeze into a tissue or your sleeve or elbow. Do not cough or sneeze into your hand or into the air. Contact a doctor if: ? You are getting worse, not better. ? You have any of these: ? A fever. ? Chills. ? Brown or red mucus in your nose. ? Yellow or brown fluid (discharge)coming from your nose. ? Pain in your face, especially when you bend forward. ? Swollen neck glands. ? Pain with swallowing. ? White areas in the back of your throat. Get help right away if: ? You have shortness of breath that gets worse. ? You have very bad or constant: ? Headache. ? Ear pain. ? Pain in your forehead, behind your eyes, and over your cheekbones (sinus pain). ? Chest pain. ? You have long-lasting (chronic) lung disease along with any of these: ? Wheezing. ? Long-lasting cough. ? Coughing up blood. ? A change in your usual mucus. ? You have a stiff neck. ? You have changes in your: ? Vision. ? Hearing. ? Thinking. ? Mood. Summary ? An upper respiratory infection (URI) is caused by a germ called a virus. The most common type of URI is often called the common cold. ? URIs usually get better within 7?10 days. ? Take uhai-qbo-kmxixuu and prescription medicines only as told by your doctor. This information is not intended to replace advice given to you by your health care provider. Make sure you discuss any questions you have with your health care provider. Document Released: 03/27/2009 Document Revised: 06/01/2018 Document Reviewed: 06/01/2018 [employer] Interactive Patient Education ? 2019 [employer] Normal [facility] Respiratory Panel 2.1 (BioFi re)on 05-23-2020 Adenovirus -BioFire Not Detected Normal Not Detected [facility] Comment on above: Performed By: #### 6 [id number], [id number] #### [facility] (DEFAULT) [address] [place] [address] Bordetella parapertussis -BioFire Not Detected Normal Not Detected [facility] Comment on above: Performed By: #### 6 [id number], [id number] #### [facility] (DEFAULT) [address] [place] [address] Bordetella pertussis -BioFire Not Detected Normal Not Detected [facility] Comment on above: Performed By: #### 6 [id number], [id number] #### [facility] (DEFAULT) [address] [place] [address] Chlamydia pneumoniae -BioFire Not Detected Normal Not Detected [facility] Comment on above: Performed By: #### 6 [id number], [id number] #### [facility] (DEFAULT) [address] [place] [address] Coronavirus 229E (Not COVID-19) -BioFire Not Detected Normal Not Detected [facility] Comment on above: Performed By: #### 6 [id number], [id number] #### [facility] (DEFAULT) [address] [place] [address]176 Coronavirus HKU1 (Not COVID-19) -BioFire Not Detected Normal Not Detected [facility] Comment on above: Performed By: #### 6 [id number], [id number] #### [facility] (DEFAULT) [address] [place] [address]69 Coronavirus NL63 (Not COVID-19) -BioFire Not Detected Normal Not Detected [facility] Comment on above: Performed By: #### 6 [id number], [id number] #### [facility] (DEFAULT) [address] [place] [address] Coronavirus OC43 (Not COVID-19) -BioFire Not Detected Normal Not Detected [facility] Comment on above: Performed By: #### 6 [id number], [id number] #### [facility] (DEFAULT) [address] [place] [address] Human Metapneumovirus -BioFire Not Detected Normal Not Detected [facility] Comment on above: Performed By: #### 6 [id number], [id number] #### [facility] (DEFAULT) [address] [place] [address] Human Rhinovirus/Enteroviru s -BioFire Detected Abnormal Not Detected [facility] Comment on above: Performed By: #### 6 [id number], [id number] #### [facility] (DEFAULT) [address] [place] [address] 08784 Influenza A (no subtype) -BioFire Not Detected Normal Not Detected [facility] Comment on above: Performed By: #### 6 [id number], [id number] #### [facility] (DEFAULT) [address] [place] [address]990 Influenza A -BioFire Not Detected Normal Not Detected [facility] Comment on above: Performed By: #### 6 [id number], [id number] #### [facility] (DEFAULT) [address] [place] [address]92 Influenza A H1 -BioFire Not Detected Normal Not Detected [facility] Comment on above: Performed By: #### 6 [id number], [id number] #### [facility] (DEFAULT) [address] [place] [address]218 Influenza A H1-2009 -BioFire Not Detected Normal Not Detected [facility] Comment on above: Performed By: #### 6 [id number], [id number] #### [facility] (DEFAULT) [address] [place] [address] Influenza A H3 -BioFire Not Detected Normal Not Detected [facility] Comment on above: Performed By: #### 6 [id number], [id number] #### [facility] (DEFAULT) [address] [place] [address] Influenza B -BioFire Not Detected Normal Not Detected [facility] Comment on above: Performed By: #### 6 [id number], [id number] #### [facility] (DEFAULT) [address] [place] [address] Mycoplasma pneumoniae -BioFire Not Detected Normal Not Detected [facility] Comment on above: Performed By: #### 6 [id number], [id number] #### [facility] (DEFAULT) [address] [place] [address] Parainfluenza Virus 1 -BioFire Not Detected Normal Not Detected [facility] Comment on above: Performed By: #### 6 [id number], [id number] #### [facility] (DEFAULT) [address] [place] [address] Parainfluenza Virus 2 -BioFire Not Detected Normal Not Detected [facility] Comment on above: Performed By: #### 6 [id number], [id number] #### [facility] (DEFAULT) [address] [place] [address] Parainfluenza Virus 3 -BioFire Not Detected Normal Not Detected [facility] Comment on above: Performed By: #### 6 [id number], [id number] #### [facility] (DEFAULT) [address] [place] [address] Parainfluenza Virus 4 -BioFire Not Detected Normal Not Detected [facility] Comment on above: Performed By: #### 6 [id number], [id number] #### [facility] (DEFAULT) [address] [place] [address] Respiratory Syncytial Virus -BioFire Not Detected Normal Not Detected [facility] Comment on above: Performed By: #### 6 [id number], [id number] #### [facility] (DEFAULT) [address] [place] [address] SARS-CoV-2 (COVID-19) -BioFire Not Detected Normal Not Detected [facility] Comment on above: Performed By: #### 6 [id number], [id number] #### [facility] (DEFAULT) [address] [place] [address] Urgent Care [facility]20 Urgent Care Record [facility] ? Urgent Care [address] [place] [address] PATIENT DISCHARGE INSTRUCTIONS Patient Information Name: JULISSA WEEMS Age: 29 Years Date of : 1990 Reason For Visit: FEVER, SOB, COUGH Arrival Time: 05/23/2020 13:31:24 Primary Care Physician: Provider, None Attending Physician: Heath Argueta PA-C Comment: Visit Diagnosis: Diagnoses This Visit Cough (R05) Suspected COVID-19 virus infection (Z20.828) Upper respiratory tract infection (J06.9) If you received any narcotics, sedation, or any other medication that causes drowsiness for the next 24 hours, unless otherwise directed: ? Do not drive a car. ? Do not operate machinery such as power tools, lawn mowers, drills, sewing machines, or stoves ? Avoid alcoholic beverages and drugs for allergies, nerves, or sleep ? Do not make important personal or business decisions or sign any legal documents With: Address: When: [facility], [address] [place], [place] [id number] Business (1) Comments: Please follow-up with your primary care doctor or Dr. Esquivel, medical doctor heating and ventilation engineer, their office schedule an appointment to be seen in 3 to 5 days for continued care, take only Tylenol for headaches or fevers, drink plenty of water for hydration, notified with your COVID-19 results, and return back to the urgent care center for any worsening symptoms, concerns, or complications. Medication Information: The exam and treatment you received today in the [facility] were for an urgent problem and are not intended as complete care. It is important for you to follow up with a doctor, nurse practitioner, or physician?s assistant boys track coach for ongoing care. If your symptoms become worse or you do not improve as expected and you are unable to reach your usual health care provider, you should return to the Emergency Department, we are available 24 hours a day. For those patients who have received Radiology results, the interpretation of your X-ray as given to you by our Urgent Care physician is only a preliminary report. The Radiologist will review your films and if there is a change in the diagnosis you will be notified by phone. Please make sure you have provided a working phone number so we can reach you if necessary. In the event that you had a lab culture while you were a patient in the Urgent Care, you will be notified by phone if there is a need to change your antibiotic. Please make sure you have provided a working phone number so we can reach you if necessary. [facility] has provided you with a complete list of medications post discharge. Please inform your piecer/provider of your visit and for further instruction on these medications. Any specific questions regarding your chronic medications and dosages should be discussed with your primary care physician(s) and/or pharmacist. New Medications [id number], [address] [place], [place] [id number], [phone] homatropine-HYDROcod one (homatropine-hydroco done 1.5 mg-5 mg/5 mL oral syrup) 5 Milliliter Oral Every 4 hours as needed for cough for 7 Days. Refills: 0. Visit Information Allergies: Substance Reaction Symptoms Type Comments No Allergies found Vital Signs: Vitals and Measurements this Visit (last charted value for your 05/23/2020 visit) No vitals and measurements documented Problems List: Problem Onset Comments No Problems found Patient Education Upper Respiratory Infection, Adult An upper respiratory infection (URI) affects the nose, throat, and upper air passages. URIs are caused by germs (viruses). The most common type of URI is often called the common cold. Medicines cannot cure URIs, but you can do things at home to relieve your symptoms. URIs usually get better within 7?10 days. Follow these instructions at home: Activity ? Rest as needed. ? If you have a fever, stay home from work or school until your fever is gone, or until your doctor says you may return to work or school. ? You should stay home until you cannot spread the infection anymore (you are not contagious). ? Your doctor may have you wear a face mask so you have less risk of spreading the infection. Relieving symptoms ? Gargle with a salt-water mixture 3?4 times a day or as needed. To make a salt-water mixture, completely dissolve ??1 tsp of salt in 1 cup of warm water. ? Use a cool-mist humidifier to add moisture to the air. This can help you breathe more easily. Eating and drinking ? Drink enough fluid to keep your pee (urine) pale yellow. ? Eat soups and other clear broths. General instructions ? Take jqvu-hfh-bededcf and prescription medicines only as told by your doctor. These include cold medicines, fever reducers, and cough suppressants. ? Do not use any products that contain nicotine or tobacco. These include cigarettes and e-cigarettes. If you need help quitting, ask your doctor. ? Avoid being where people are smoking (avoid secondhand smoke). ? Make sure you get regular shots and get the flu shot every year. ? Keep all follow-up visits as told by your doctor. This is important. How to avoid spreading infection to others ? Wash your hands often with soap and water. If you do not have soap and water, use hand gericare aide teacher. ? Avoid touching your mouth, face, eyes, or nose. ? Cough or sneeze into a tissue or your sleeve or elbow. Do not cough or sneeze into your hand or into the air. Contact a doctor if: ? You are getting worse, not better. ? You have any of these: ? A fever. ? Chills. ? Brown or red mucus in your nose. ? Yellow or brown fluid (discharge)coming from your nose. ? Pain in your face, especially when you bend forward. ? Swollen neck glands. ? Pain with swallowing. ? White areas in the back of your throat. Get help right away if: ? You have shortness of breath that gets worse. ? You have very bad or constant: ? Headache. ? Ear pain. ? Pain in your forehead, behind your eyes, and over your cheekbones (sinus pain). ? Chest pain. ? You have long-lasting (chronic) lung disease along with any of these: ? Wheezing. ? Long-lasting cough. ? Coughing up blood. ? A change in your usual mucus. ? You have a stiff neck. ? You have changes in your: ? Vision. ? Hearing. ? Thinking. ? Mood. Summary ? An upper respiratory infection (URI) is caused by a germ called a virus. The most common type of URI is often called the common cold. ? URIs usually get better within 7?10 days. ? Take ljvy-eqo-mvqebaq and prescription medicines only as told by your doctor. This information is not intended to replace advice given to you by your health care provider. Make sure you discuss any questions you have with your health care provider. Document Released: 03/27/2009 Document Revised: 06/01/2018 Document Reviewed: 06/01/2018 [employer] Patient Education ? 2019 [employer] Viruses or Bacteria What?s got you sick? Antibiotics only treat bacterial infections. Viral illnesses cannot be treated with antibiotics. When an antibiotic is not prescribed, ask your healthcare professional for tips on how to relieve symptoms and feel better. Usual Cause Illness Viruses Bacteria Antibiotic Needed Cold/Runny Nose NO Bronchitis/Chest Cold (in otherwise healthy children and adults) NO Whooping Cough Yes Flu NO Strep Throat Yes Sore Throat (except strep) NO Fluid in the middle ear (otitis media with effusion) NO Urinary Tract Infection Yes Antibiotics Aren?t Always the Answer www.cdc.gov/getsmart GET SMART Know When Antibiotics Work [place] Department of Health and Human Services Centers for Disease Control and Prevention June 2014 Normal [facility] Vital Signs Date Time Vital Sign Value Performing Clinician Facility 10-24-2024 14:22-0500 Body mass index (BMI) [Ratio] 31.64 kg/m2 [facility] Nurse [facility] 10-24-2024 14:22-0500 Body weight 91.63 kg [facility] Nurse [facility] 10-24-2024 14:22-0500 Diastolic blood pressure 74 mm[Hg] [facility] Nurse [facility] 10-24-2024 14:22-0500 Systolic blood pressure 120 mm[Hg] [facility] Nurse [facility] 09-16-2024 15:18-0500 Body mass index (BMI) [Ratio] 32.08 kg/m2 Mik Elmo DO Work Phone: [facility] 09-16-2024 15:18-0500 Body weight 92.9 kg Mik Elmo DO Work Phone: [facility] 09-16-2024 15:18-0500 Diastolic blood pressure 68 mm[Hg] Mik Elmo DO Work Phone: [facility] 09-16-2024 15:18-0500 Systolic blood pressure 114 mm[Hg] Mik Elmo DO Work Phone: [facility] 05-12-2022 15:32-0400 Blood Pressure Location Kaylinn Dokken [facility] 05-12-2022 15:32-0400 Diastolic blood pressure 70 mm[Hg] Kaylinn Dokken [facility] 05-12-2022 15:32-0400 Heart rate 101 /min Kaylinn Dokken [facility] 05-12-2022 15:32-0400 Mean blood pressure 84 mm[Hg] Kaylinn Dokken [facility] 05-12-2022 15:32-0400 Respiratory rate 24 /min Kaylinn Dokken [facility] 05-12-2022 15:32-0400 SaO2% (BldA) [Mass fraction] 96 % Kaylinn Dokken [facility] 05-12-2022 15:32-0400 Systolic blood pressure 114 mm[Hg] Kaylinn Dokken [facility] 05-12-2022 14:20-0400 Body temperature 98.06 [degF] Kaylinn Dokken [facility] 05-12-2022 14:20-0400 Diastolic blood pressure 69 mm[Hg] Kaylinn Dokken [facility] 05-12-2022 14:20-0400 Heart rate 73 /min Kaylinn Dokken [facility] 05-12-2022 14:20-0400 Respiratory rate 16 /min Kaylinn Dokken [facility] 05-12-2022 14:20-0400 SaO2% (BldA) [Mass fraction] 97 % Kaylinn Dokken [facility] 05-12-2022 14:20-0400 Systolic blood pressure 108 mm[Hg] Kaylinn Dokken [facility] 05-12-2022 13:14-0400 Body temperature 98.24 [degF] Kaylinn Dokken [facility] 05-12-2022 13:14-0400 Diastolic blood pressure 82 mm[Hg] Kaylinn Dokken [facility] 05-12-2022 13:14-0400 Heart rate 87 /min Kaylinn Dokken [facility] 05-12-2022 13:14-0400 Mean blood pressure 98 mm[Hg] Kaylinn Dokken [facility] 05-12-2022 13:14-0400 SaO2% (BldA) [Mass fraction] 95 % Kaylinn Dokken [facility] 05-12-2022 13:14-0400 Systolic blood pressure 129 mm[Hg] Kaylinn Dokken [facility] 05-12-2022 13:05-0400 Body temperature 97.88 [degF] Kaylinn Dokken [facility] 05-12-2022 13:05-0400 Mean blood pressure 96 mm[Hg] Kaylinn Dokken [facility] 05-12-2022 13:05-0400 Respiratory rate 14 /min Kaylinn Dokken [facility] 05-12-2022 13:00-0400 Respiratory rate 13 /min Kaylinn Dokken [facility] 05-12-2022 12:45-0400 Mean blood pressure 95 mm[Hg] Kaylinn Dokken [facility] 05-12-2022 11:56-0400 Body temperature 98.06 [degF] Kaylinn Dokken [facility] 05-12-2022 11:50-0400 Respiratory rate 16 /min Kaylinn Dokken [facility] 05-12-2022 11:45-0400 Respiratory rate 16 /min Kaylinn Dokken [facility] 05-12-2022 09:30-0400 Blood Pressure Location Kaylinn Dokken [facility] 05-12-2022 09:30-0400 Mean blood pressure 93 mm[Hg] Kaylinn Dokken [facility] 05-12-2022 09:28-0400 Blood Pressure Location Kaylinn Dokken [facility] 05-12-2022 09:28-0400 Body temperature 97.7 [degF] Kaylinn Dokken [facility] 05-12-2022 09:00-0400 Hourly Rounding Kaylinn Dokken [facility] 05-12-2022 09:00-0400 Promise to Return Kaylinn Dokken [facility] 05-12-2022 08:00-0400 Hourly Rounding Kaylinn Dokken [facility] 05-12-2022 08:00-0400 Promise to Return Kaylinn Dokken [facility] 05-11-2022 22:41-0400 Heart rate 112 /min Arunylinn Dokken [facility] 03-08-2022 10:17-0400 Blood Pressure Location Helene HAMILTON [facility] 03-08-2022 10:17-0400 Body temperature 99.5 [degF] Helene YOUNGBLOODTTEL [facility] 03-08-2022 10:17-0400 Diastolic blood pressure 84 mm[Hg] Helene SPETTEL [facility] 03-08-2022 10:17-0400 Heart rate 84 /min Helene SPETTEL [facility] 03-08-2022 10:17-0400 SaO2% (BldA) [Mass fraction] 97 % Helene SPETTEL [facility] 03-08-2022 10:0400 Systolic blood pressure 118 mm[Hg] Helene HAMILTON [facility] Encounters Encounter Date Encounter Type Care Provider Facility Start: 10-24-2024 End: 10-24-2024 [facility]ulatory [facility] Nurse [facility] Comment on above: GA: 7w0d Start: 09-16-2024 End: 09-16-2024 Patient encounter procedure Mik Elmo DO Work Phone: [facility] Work Phone: Start: 09-16-2024 End: 09-16-2024 Periodic preventive med est patient 18-39 yrs Mik Elmo DO Work Phone: [facility] Comment on above: Well woman exam with routine gynecological exam Start: 09-16-2024 End: 09-16-2024 ambulatory MIK ELMO Not Available Start: 09-16-2024 End: 09-16-2024 Bamboo flowsheet Mik Elmo DO Work Phone: [facility] Start: 09-16-2024 End: 09-27-2024 Bamboo flowsheet Mik Elmo DO Work Phone: [facility] Start: 09-16-2024 End: 09-27-2024 Clinisync Result Encounter Mik Elmo DO Work Phone: [facility] Unsolicited Start: 05-06-2024 End: 05-06-2024 ambulatory MIK ELMO Not Available Start: 10-03-2022 End: 10-04-2022 ambulatory DONA DELAROSA Facility:[facility] Start: 10-03-2022 End: 10-03-2022 Patient encounter procedure DONA DELAROSA [facility] [place] Start: 10-03-2022 End: 10-03-2022 Manual pelvic examination DONA DELAROSA [facility] [place] Start: 09-12-2022 ambulatory Kuldeep Julian FELIPE Facilit y:[facility] [place] Start: 07-12-2022 End: 07-13-2022 ambulatory Helene A SPETTEL Facility:[facility] Start: 07-12-2022 End: 07-12-2022 Patient encounter procedure Helene A SPETTEL [facility] Start: 06-01-2022 End: 08-31-2022 ambulatory Helene A SPETTEL Facility:[facility] Start: 06-01-2022 End: 08-30-2022 Patient encounter procedure Helene A SPETTEL [facility] Start: 05-17-2022 End: 05-18-2022 ambulatory Helene A SPETTEL Facility:[facility] Start: 05-13-2022 ambulatory DO Kaylinn Dokken Facil ity:[facility] [place] Start: 05-12-2022 End: 05-12-2022 Emergency department patient visit DO Kaylinn A Dokken Facility:[facility] Start: 05-11-2022 End: 05-12-2022 Emergency department patient visit Kaylinn A Dokken [facility] Start: 04-12-2022 End: 04-13-2022 ambulatory Helene A SPETTEL Facility:[facility] Start: 04-08-2022 ambulatory DO Kaylinn Dokken Facil ity:[facility] [place] Start: 04-04-2022 ambulatory DO Kaylinn Dokken Facil ity:[facility] [place] Start: 03-08-2022 End: 03-09-2022 ambulatory Helene A SPETTEL Facility:[facility] Start: 03-08-2022 End: 03-08-2022 Patient encounter procedure Helene A SPETTEL [facility] Procedures Date Procedure Procedure Detail Performing Clinician Start: 10-24-2024 End: 10-24-2024 Urnls dip stick/tablet rgnt non-auto w/o micrscp Mik Elmo DO Work Phone: Start: 09-16-2024 IGP,APTIMA HPV,AGE GDLN Mik Elmo DO Work Phone: Start: 09-16-2024 Microscopic observat ion [Identifier] in Cervix by Cyto stain [facility] Nurse Start: 05-12-2022 Laparoscopic appendectomy William Yoder History of appendectomy History of appendectomy( Confirmed ) Helene HAMILTON None (qualifier value) Rachna HAMILTON Plan of Treatment Date Care Activity Detail Author Start: 09-16-2029 Screening for malign ant neoplasm of cervix [facility] Start: 08-05-2025 Screening for malign ant neoplasm of cervix [facility] Start: 11-25-2024 End: 11-25-2024 Patient encounter procedure 11/25/2024 9:50 AM EST Routine [facility] [address] [place] [address] Mik Borrego, DO [address] [place] [address] [facility] Start: 10-24-2024 End: 10-24-2025 ABO/Rh ABO/Rh Lab Routine Missed menses , unspecified gestational age Expected: 10/24/2024 (Approximate), Expires: 10/24/2025 [facility] Comment on above: Expected: 10/24/2024 (Approximate), Expires: 10/24/2025 Start: 10-24-2024 End: 10-24-2025 Blood type and Indirect antibody screen panel - Blood Type and screen Lab Routine Missed menses , unspecified gestational age Expected: 10/24/2024 (Approximate), Expires: 10/24/2025 [facility] Comment on above: Expected: 10/24/2024 (Approximate), Expires: 10/24/2025 Start: 10-24-2024 End: 10-24-2025 Drugs of abuse panel - Urine by Screen method Rapid drug screen, urine Lab Routine , unspecified gestational age Encounter for supervision of normal first in first trimester Expected: 10/24/2024 (Approximate), Expires: 10/24/2025 [facility] Comment on above: Expected: 10/24/2024 (Approximate), Expires: 10/24/2025 Start: 10-24-2024 End: 10-24-2025 US Pelvis transvaginal [facility] Work Phone: Comment on above: Expected: 10/24/2024 , Expires: 10/24/2025 Start: 09-16-2024 End: 09-16-2024 Patient encounter procedure 09/16/2024 3:00 PM EST Office Visit [facility] [address] [place] [address] Mik Borrego, DO [address] [place] [address] Arrived [facility] Comment on above: Arrived Start: 06-23-2024 Influenza vaccination Influenza Vacc ine (#1) [facility] Start: 2009 Screening for malign ant neoplasm of cervix Pap Smear [facility] Bacteria identified in Urine by Culture Urine culture Microbiology Routine Missed menses Ordered: 10/24/2024 [facility] Comment on above: Ordered: 10/24/2024 CBC W Auto Different ial panel - Blood CBC and differential Lab Routine Missed menses , unspecified gestational age Ordered: 10/24/2024 [facility] Comment on above: Ordered: 10/24/2024 Cytology Cervical or vaginal smear or scraping study Pap Smear Pathology and Cytology Routine Well woman exam with routine gynecological exam Ordered: 09/16/2024 [facility] Work Phone: Comment on above: Ordered: 09/16/2024 Hemoglobin A1c/Hemoglobin.total in Blood Hemoglobin A1c Lab Routine Missed menses , unspecified gestational age Ordered: 10/24/2024 [facility] Comment on above: Ordered: 10/24/2024 Hepatitis B virus surface Ag [Presence] in Serum or Plasma by Immunoassay Hepatitis B surface antigen Lab Routine Missed menses , unspecified gestational age Ordered: 10/24/2024 [facility] Comment on above: Ordered: 10/24/2024 Hepatitis C virus Ab [Presence] in Serum or Plasma by Immunoassay Hepatitis C antibody Lab Routine Missed menses , unspecified gestational age Ordered: 10/24/2024 [facility] Comment on above: Ordered: 10/24/2024 HIV-1/HIV-2 antigen/antibody combination immunoassay HIV-1 and HIV-2 antibodies Lab Routine Missed menses , unspecified gestational age Ordered: 10/24/2024 [facility] Comment on above: Ordered: 10/24/2024 Human papilloma viru s DNA [Presence] in Unspecified specimen by Probe with amplification HPV DNA probe, amplified Microbiology Routine Well woman exam with routine gynecological exam Ordered: 09/16/2024 [facility] Comment on above: Ordered: 09/16/2024 Reagin Ab [Presence] in Serum by RPR RPR Lab Routine Missed menses , unspecified gestational age Ordered: 10/24/2024 [facility] Comment on above: Ordered: 10/24/2024 Rubella antibody, IgG Rubella an tibody, IgG Lab Routine Missed menses , unspecified gestational age Ordered: 10/24/2024 [facility] Comment on above: Ordered: 10/24/2024 Immunizations Immunization Date Immunization Notes Care Provider Rad[facility] 08-05-2021 COVID-19, mRNA, LNP- S, PF, 30 mcg/0.3 mL dose Helene HAMILTON [facility] 06-25-2021 COVID-19, mRNA, LNP- S, PF, 30 mcg/0.3 mL dose Helene HAMILTON [facility] 02-08-2019 meningococcal ACWY vaccine, unspecified formulation Helene HAMILTON [facility] 12-14-2009 hepatitis B vaccine, adult dosage Helene HAMILTON [facility] 07-03-2009 hepatitis B vaccine, adult dosage Helene HAMILTON [facility] 06-01-2009 hepatitis B vaccine, adult dosage Helene HAMILTON [facility] 06-01-2009 tetanus toxoid, redu [place] diphtheria toxoid, and acellular pertussis vaccine, adsorbed Helene HAMILTON [facility] 05-16-2001 measles, mumps and rubella virus vaccine Helene HAMILTON [facility] NEGATED: Highlighted row has not occurred!03-08-2022 influenza virus vaccine, unspecified formulation Helene HAMILTON [facility] NEGATED: Highlighted row has not occurred!03-16-2021 SARS-CoV-2 (COVID-19) mRNA-7653 vaccine Helene HAMILTON [facility] NEGATED: Highlighted row has not occurred!10-20-2020 influenza virus vaccine, unspecified formulation Helene HAMILTON [facility] Payers Date Payer Category [facility] [id number] 2022 Unknown [id number] 2021 Unknown [id number] 1988 Unknown [id number] [id number]. 1988 Unknown [id number] 2.16.840.1.892743.3.579.2. 1988 Unknown [id number] 2.16.840.1.413629.3.579.2. 1988 Unknown [id number] 2.16.840.1.812603.3.579.2. 1988 Unknown [id number] 2.16.840.1.567525.3.579.2. 1988 Unknown [id number] 2.16.840.1.086844.3.579.2. 7 1988 Unknown [id number] 2.16.840.1.190439.3.579.2. 1988 Unknown [id number] 2.16.840.1.719735.3.579.2. 1988 Unknown [id number] 2.16.840.1.718673.3.579.2. 1988 Unknown [id number] 2.16.840.1.745250.3.579.2. 1988 Unknown [id number] 2.16.840.1.789465.3.579.2. 1988 Unknown [id number] 2.16.840.1.551228.3.579.2. 727 1988 Unknown [id number] 2.16.840.1.953820.3.579.2. 1259 1988 Unknown [id number] 2.16.840.1.387275.3.579.2. 1259 1988 Unknown [id number] 2.16.840.1.842198.3.579.2. 1259 1988 Unknown [id number] 2.16.840.1.292979.3.579.2. 1259 Social History Date Type Detail Facility Start: 03-08-2022 End: 05-17-2022 Tobacco smoking status Never smoked tobacco (finding) [facility] Sex Assigned At Female [facility] Tobacco smoking status NHIS Tobacco smoking consumption unknown [facility] Start: 1990 Sex assigned at Not on file [facility] Start: 09-19-2024 [facility] Functional Status Date Assessment Result Facility 05-11-2022 Functional Status N/A [facility] Clinical Notes 03-08-2022 to 10-24-2024 Larisa Chowdary MA - 10/24/2024 2:00 PM Simona Buckner LPN - 09/16/2024 3:00 PM EST Note Date & Type Note Facility 10-24-2024 History of Present illness Narrative Reason for Appointment: Patient ID: Julissa Weems is a 33 y.o. female who presents for Amenorrhea Patient presents today for a Nurse OB Intake appointment. Patient is 7w0d with a Estimated Date of Delivery: 06/12/25 OB History Para Term AB Living 1 SAB IAB Ectopic Multiple Live Births # Outcome Date GA Lbr Junior/2nd Weight Sex Type Anes PTL Lv 1 Current Current Medications: has a current medication list which includes the following prescription(s): albuterol hfa and cetirizine. Medical History: Active Ambulatory Problems Diagnosis Date Noted No Active Ambulatory Problems Resolved Ambulatory Problems Diagnosis Date Noted No Resolved Ambulatory Problems Past Medical History: Diagnosis Date ADHD (attention deficit hyperactivity disorder) ([facility]) Anxiety Insulin resistance PCOS (polycystic ovarian syndrome) Family History Problem Relation Name Age of Onset Other (renal cell carcinoma) Father Breast cancer Father's Sister Colon cancer Father's Brother Diabetes Paternal Grandfather Polycystic ovary syndrome Other Hypothyroidism Other Social History Tobacco Use Smoking status: Not on file Smokeless tobacco: Not on file Substance Use Topics Alcohol use: Not on file Drug use: Not on file Past Surgical History: Procedure Laterality Date APPENDECTOMY 2022 Allergies Allergen Reactions Metformin Other Reaction(s): Rhabdomyolysis Phentermine Shortness of breath Other Reaction(s): Hives Metformin Hcl Er Other Reaction(s): Rhabdomyolsis Sulfites Trulicity [Dulaglutide] Hives Vitals: Estimated body mass index is 31.64 kg/m as calculated from the following: Height as of 05/06/24: 5' 7 . Weight as of this encounter: 202 lb. BP: 120/74 Patient's last menstrual period was 08/23/2024. Assessment/Plan Diagnoses and all orders for this visit: Missed menses - US OB transvaginal; Future - Type and screen; Future - ABO/Rh; Future - CBC and differential - Hemoglobin A1c - RPR - Rubella antibody, IgG - Hepatitis B surface antigen - Hepatitis C antibody - HIV-1 and HIV-2 antibodies - Urine culture - POCT , urine manually resulted - POCT urinalysis dipstick manually resulted 7 weeks gestation of , unspecified gestational age - Type and screen; Future - ABO/Rh; Future - CBC and differential - Hemoglobin A1c - RPR - Rubella antibody, IgG - Hepatitis B surface antigen - Hepatitis C antibody - HIV-1 and HIV-2 antibodies - Rapid drug screen, urine; Future Encounter for supervision of normal first in first trimester - Rapid drug screen, urine; Future Nurse Note: OB Intake: Patient presents today for first OB visit. Patients history has been reviewed in great detail including any potential risks. Patient signed consent forms and patient desires testing in both trimesters. Patient currently has no complaints and has been advised to drink 6-8 glasses of water a day, eat no raw or undercooked meat, and stay away from [facility]. Patient has also been advised to not change litter boxes and eat 6 small meals a day. Patient has been consulted regarding the do's and don'ts of . Patient was given labs and all questions and concerns were answered. Follow Up: Patient is to return in 4 weeks for routine OB appointment. Follow Up: Patient is to have labs drawn at directed and return to office for initial OB appointment with provider. Patient may call office as needed with any concerns or questions. Nurse Visit Completed by: Larisa Chowdary MA documented in this encounter [facility] 09-16-2024 History of Present illness Narrative Reason for Appointment: Patient ID: Julissa Weems is a 33 y.o. female who presents for Well Women Visit Patient presents today for Annual Exam. MEDICATIONS Current Outpatient Medications Medication Instructions albuterol HFA 90 mcg/act inhaler cetirizine (ZyrTEC) 10 MG tablet Oral ALLERGIES Allergies Allergen Reactions Metformin Other Reaction(s): Rhabdomyolysis Phentermine Shortness of breath Other Reaction(s): Hives Metformin Hcl Er Other Reaction(s): Rhabdomyolsis Sulfites Trulicity [Dulaglutide] Hives PROBLEMS Active Ambulatory Problems Diagnosis Date Noted No Active Ambulatory Problems Resolved Ambulatory Problems Diagnosis Date Noted No Resolved Ambulatory Problems Past Medical History: Diagnosis Date ADHD (attention deficit hyperactivity disorder) (CMS/HCC) Anxiety Insulin resistance PCOS (polycystic ovarian syndrome) HISTORY PAST MEDICAL HISTORY SOCIAL HISTORY Past Medical History: Diagnosis Date ADHD (attention deficit hyperactivity disorder) (CMS/HCC) Anxiety Insulin resistance PCOS (polycystic ovarian syndrome) Social History Tobacco Use Smoking status: Not on file Smokeless tobacco: Not on file Substance Use Topics Alcohol use: Not on file Drug use: Not on file FAMILY HISTORY Family History Problem Relation Name Age of Onset Other (renal cell carcinoma) Father Breast cancer Father's Sister Colon cancer Father's Brother Diabetes Paternal Grandfather Polycystic ovary syndrome Other Hypothyroidism Other SURGICAL HISTORY Past Surgical History: Procedure Laterality Date APPENDECTOMY 2022 REVIEW OF SYSTEMS Review of Systems: Review of Systems Constitutional: Negative. HENT: Negative. Eyes: Negative. Respiratory: Negative. Cardiovascular: Negative. Gastrointestinal: Negative. Genitourinary: Negative. Musculoskeletal: Negative. Skin: Negative. Neurological: Negative. All other systems reviewed and are negative. Hematological: Negative. Endocrine: Negative. Allergic/Immunologic: Negative. OBJECTIVE Objective: Physical Exam Constitutional: Appearance: Normal appearance. She is well-developed. Genitourinary: Vulva normal. Breasts: Breasts are soft. Right: Normal. Left: Normal. Cardiovascular: Rate and Rhythm: Normal rate and regular rhythm. Pulmonary: Effort: Pulmonary effort is normal. Breath sounds: Normal breath sounds. Abdominal: General: Bowel sounds are normal. There is no distension. Palpations: Abdomen is soft. Tenderness: There is no abdominal tenderness. There is no guarding or rebound. Musculoskeletal: General: No swelling. Normal range of motion. Right lower leg: No edema. Left lower leg: No edema. Neurological: Mental Status: She is alert and oriented to person, place, and time. Skin: General: Skin is warm and dry. Psychiatric: Mood and Affect: Mood normal. Behavior: Behavior normal. Vitals and nursing note reviewed. Exam conducted with a final inspector movement assembly present. Vitals: Estimated body mass index is 32.08 kg/m as calculated from the following: Height as of 05/06/24: 5' 7 . Weight as of this encounter: 204 lb 12.8 oz. BP: 114/68 No LMP recorded. ASSESSMENT & PLAN ICD-10-CM 1. Well woman exam with routine gynecological exam Z01.419 Pap Smear HPV DNA probe, amplified Annual Exam: Patient presents today for an annual exam. Patient states she is doing well and has no complaints. Pap was obtained without difficulty. Orders Placed This Encounter Procedures HPV DNA probe, amplified Follow Up: Patient is to return in one year for annual unless needed otherwise. Documented by Kimi Buckner LPN on behalf of: Mik Borrego DO documented in this encounter [facility] 10-03-2022 Hospital Discharge instructions Patient Education 10/03/2022 13:10:38 Nausea and Vomiting, Adult Nausea and Vomiting, Adult Nausea is the feeling that you have an upset stomach or that you are about to vomit. Vomiting is when stomach contents are thrown up and out of the mouth as a result of nausea. Vomiting can make you feel weak and cause you to become dehydrated. Dehydration can make you feel tired and thirsty, cause you to have a dry mouth, and decrease how often you urinate. Older adults and people with other diseases or a weak disease-fighting system (immune system) are at higher risk for dehydration. It is important to treat your nausea and vomiting as told by your health care provider. Follow these instructions at home: Watch your symptoms for any changes. Tell your health care provider about them. Follow these instructions to care for yourself at home. Eating and drinking Take an oral rehydration solution (ORS). This is a drink that is sold at pharmacies and retail stores. Drink clear fluids slowly and in small amounts as you are able. Clear fluids include water, ice chips, low-calorie sports drinks, and fruit juice that has water added (diluted fruit juice). Eat bland, gftm-qh-xatztr foods in small amounts as you are able. These foods include bananas, applesauce, rice, lean meats, toast, and crackers. Avoid fluids that contain a lot of sugar or caffeine, such as energy drinks, sports drinks, and soda. Avoid alcohol. Avoid spicy or fatty foods. General instructions Take lidq-ehh-ueijixc and prescription medicines only as told by your health care provider. Drink enough fluid to keep your urine pale yellow. Wash your hands often using soap and water. If soap and water are not available, use hand gericare aide teacher. Make sure that all people in your household wash their hands well and often. Rest at home while you recover. Watch your condition for any changes. Breathe slowly and deeply when you feel nauseated. Keep all follow-up visits as told by your health care provider. This is important. Contact a health care provider if: Your symptoms get worse. You have new symptoms. You have a fever. You cannot drink fluids without vomiting. Your nausea does not go away after 2 days. You feel light-headed or dizzy. You have a headache. You have muscle cramps. You have a rash. You have pain while urinating. Get help right away if: You have pain in your chest, neck, arm, or jaw. You feel extremely weak or you faint. You have persistent vomiting. You have vomit that is bright red or looks like black coffee grounds. You have bloody or black stools or stools that look like tar. You have a severe headache, a stiff neck, or both. You have severe pain, cramping, or bloating in your abdomen. You have difficulty breathing, or you are breathing very quickly. Your heart is beating very quickly. Your skin feels cold and clammy. You feel confused. You have signs of dehydration, such as: ?Dark urine, very little urine, or no urine. ?Cracked lips. ?Dry mouth. ?Sunken eyes. ?Sleepiness. ?Weakness. These symptoms may represent a serious problem that is an emergency. Do not wait to see if the symptoms will go away. Get medical help right away. Call your local emergency services (911 in the [place] Do not drive yourself to the hospital. Summary Nausea is the feeling that you have an upset stomach or that you are about to vomit. As nausea gets worse, it can lead to vomiting. Vomiting can make you feel weak and cause you to become dehydrated. Follow instructions from your health care provider about eating and drinking to prevent dehydration. Take jryk-vwd-ywljyoy and prescription medicines only as told by your health care provider. Contact your health care provider if your symptoms get worse, or you have new symptoms. Keep all follow-up visits as told by your health care provider. This is important. This information is not intended to replace advice given to you by your health care provider. Make sure you discuss any questions you have with your health care provider. Document Released: 10/09/2006 Document Revised: 01/31/2020 Document Reviewed: 03/19/2019 [employer] Patient Education 2020 [employer]. 10/03/2022 13:10:32 Acute Pain, Adult Acute Pain, Adult Acute pain is a type of sudden pain that may last for just a few days or for as long as six months. It is often related to an illness, injury, or medical procedure. Acute pain may be mild, moderate, or severe. Pain can make it hard for you to do your normal, daily activities. It can cause anxiety and lead to other problems if it is left untreated. Treatment depends on the cause and severity of your pain. Acute pain usually goes away once your injury has healed or you are no longer ill. Follow these instructions at home: Medicines Take iygz-kkd-mzhcxhk and prescription medicines only as told by your health care provider. Take the lowest dose of medicine for the shortest amount of time needed to relieve the pain. If you are taking prescription pain medicine: ?Do not stop taking the medicine suddenly. Talk to your health care provider about how and when to discontinue prescription medicine. ?Do not take more pills than told by your health care provider even if your pain is severe. ?Do not take other xwaz-emt-vljwbwp pain medicines in addition to prescription pain medicine unless told by your health care provider. ?Ask your health care provider if the medicine requires you to avoid driving or using heavy machinery. ?Ask your health care provider if the medicine can cause constipation. You may need to take these actions to prevent or treat constipation: ?Drink enough fluid to keep your urine pale yellow. ?Eat foods that are high in fiber, such as beans, whole grains, and fresh fruits and vegetables. ?Take vtoi-atk-lctdsxg or prescription medicines. ?Limit foods that are high in fat and processed sugars, such as fried or sweet foods. Managing pain, stiffness, and swelling If directed, put ice on the affected area. To do this: Put ice in a plastic bag. Place a towel between your skin and the bag. Leave the ice on for 20 minutes, 2 3 times a day. If directed, apply heat to the affected area as often as told by your health care provider. Use the heat source that your health care provider recommends, such as a moist heat pack or a heating pad. Place a towel between your skin and the heat source. Leave the heat on for 20 30 minutes. Remove the heat if your skin turns bright red. This is especially important if you are unable to feel pain, heat, or cold. You may have a greater risk of getting burned. Activity Rest as told by your health care provider. Return to your normal activities as told by your health care provider. Ask your health care provider what activities are safe for you. General instructions Check your pain level as told by your health care provider. Ask your health care provider if other strategies such as distraction, relaxation, or physical therapies can help your pain. Keep all follow-up visits as told by your health care provider. This is important. Contact a health care provider if: Your pain is not controlled by medicine. Your pain does not improve or gets worse. You have side effects from pain medicines, such as vomiting or confusion. Get help right away if you: Have severe pain. Have trouble breathing. Lose consciousness. Have chest pain or pressure that lasts for more than a few minutes, or if you have other symptoms along with chest pain, including if you: ?Have pain or discomfort in one or both arms, your back, neck, jaw, or stomach. ?Have shortness of breath. ?Break out in a cold sweat. ?Feel nauseous. ?Become light-headed. These symptoms may represent a serious problem that is an emergency. Do not wait to see if the symptoms will go away. Get medical help right away. Call your local emergency services (911 in the [place] Do not drive yourself to the hospital. Summary Acute pain may be mild, moderate, or severe. It usually goes away once your injury has healed or you are no longer ill. Take bawc-ojv-pfpuzba and prescription medicines only as told by your health care provider. Ask your health care provider if the medicine prescribed to you can cause constipation. Contact a health care provider if your pain is not controlled by medicine. This information is not intended to replace advice given to you by your health care provider. Make sure you discuss any questions you have with your health care provider. Document Released: 10/23/2016 Document Revised: 02/24/2020 Document Reviewed: 02/24/2020 [employer] Patient Education 2019 [employer]. 10/03/2022 13:10:29 Dysmenorrhea Dysmenorrhea Dysmenorrhea refers to cramps caused by the muscles of the uterus tightening (giuliana) during a menstrual period. Dysmenorrhea may be mild, or it may be severe enough to interfere with everyday activities for a few days each month. Primary dysmenorrhea is menstrual cramps that last a couple of days when you start having menstrual periods or soon after. This often begins after a teenager starts having her period. As a woman gets older or has a baby, the cramps will usually lessen or disappear. Secondary dysmenorrhea begins later in life and is caused by a disorder in the reproductive system. It lasts longer, and it may cause more pain than primary dysmenorrhea. The pain may start before the period and last a few days after the period. What are the causes? Dysmenorrhea is usually caused by an underlying problem, such as: The tissue that lines the uterus (endometrium) growing outside of the uterus in other areas of the body (endometriosis). Endometrial tissue growing into the muscular martinez of the uterus (adenomyosis). Blood vessels in the pelvis becoming filled with blood just before the menstrual period (pelvic congestive syndrome). Overgrowth of cells (polyps) in the endometrium or the lower part of the uterus (cervix). The uterus dropping down into the vagina (prolapse) due to stretched or weak muscles. Bladder problems, such as infection or inflammation. Intestinal problems, such as a tumor or irritable bowel syndrome. Cancer of the reproductive organs or bladder. A severely tipped uterus. A cervix that is closed or has a very small opening. Noncancerous (benign) tumors of the uterus (fibroids). Pelvic inflammatory disease (PID). Pelvic scarring (adhesions) from a previous surgery. An ovarian cyst. An IUD (intrauterine device). What increases the risk? You are more likely to develop this condition if: You are younger than age 30. You started puberty early. You have irregular or heavy bleeding. You have never given . You have a family history of dysmenorrhea. You smoke. What are the signs or symptoms? Symptoms of this condition include: Cramping, throbbing pain, or a feeling of fullness in the lower abdomen. Lower back pain. Periods lasting for longer than 7 days. Headaches. Bloating. Fatigue. Nausea or vomiting. Diarrhea. Sweating or dizziness. Loose stools. How is this diagnosed? This condition may be diagnosed based on: Your symptoms. Your medical history. A physical exam. Blood tests. A Pap test. This is a test in which cells from the cervix are tested for signs of cancer or infection. A test. Imaging tests, such as: ?Ultrasound. ?A procedure to remove and examine a sample of endometrial tissue (dilation and curettage, D&C). ?A procedure to visually examine the inside of: ?The uterus (hysteroscopy). ?The abdomen or pelvis (laparoscopy). ?The bladder (cystoscopy). ?The intestine (colonoscopy). ?The stomach (gastroscopy). ?X-rays. ?CT scan. ?MRI. How is this treated? Treatment depends on the cause of the dysmenorrhea. Treatment may include: Pain medicine prescribed by your health care provider. control pills that contain the hormone progesterone. An IUD that contains the hormone progesterone. Medicines to control bleeding. Hormone replacement therapy. NSAIDs. These may help to stop the production of hormones that cause cramps. Antidepressant medicines. Surgery to remove adhesions, endometriosis, ovarian cysts, fibroids, or the entire uterus (hysterectomy). Injections of progesterone to stop the menstrual period. A procedure to destroy the endometrium (endometrial ablation). A procedure to cut the nerves in the bottom of the spine (sacrum) that go to the reproductive organs (presacral neurectomy). A procedure to apply an electric current to nerves in the sacrum (sacral nerve stimulation). Exercise and physical therapy. Meditation and yoga therapy. Acupuncture. Work with your health care provider to determine what treatment or combination of treatments is best for you. Follow these instructions at home: Relieving pain and cramping Apply heat to your lower back or abdomen when you experience pain or cramps. Use the heat source that your health care provider recommends, such as a moist heat pack or a heating pad. ?Place a towel between your skin and the heat source. ?Leave the heat on for 20 30 minutes. ?Remove the heat if your skin turns bright red. This is especially important if you are unable to feel pain, heat, or cold. You may have a greater risk of getting burned. ?Do not sleep with a heating pad on. Do aerobic exercises, such as walking, swimming, or biking. This can help to relieve cramps. Massage your lower back or abdomen to help relieve pain. General instructions Take hqfe-cjh-qgsgsmi and prescription medicines only as told by your health care provider. Do not drive or use heavy machinery while taking prescription pain medicine. Avoid alcohol and caffeine during and right before your menstrual period. These can make cramps worse. Do not use any products that contain nicotine or tobacco, such as cigarettes and e-cigarettes. If you need help quitting, ask your health care provider. Keep all follow-up visits as told by your health care provider. This is important. Contact a health care provider if: You have pain that gets worse or does not get better with medicine. You have pain with sex. You develop nausea or vomiting with your period that is not controlled with medicine. Get help right away if: You faint. Summary Dysmenorrhea refers to cramps caused by the muscles of the uterus tightening (giuliana) during a menstrual period. Dysmenorrhea may be mild, or it may be severe enough to interfere with everyday activities for a few days each month. Treatment depends on the cause of the dysmenorrhea. Work with your health care provider to determine what treatment or combination of treatments is best for you. This information is not intended to replace advice given to you by your health care provider. Make sure you discuss any questions you have with your health care provider. Document Released: 10/09/2006 Document Revised: 09/21/2018 Document Reviewed: 11/11/2017 [employer] Patient Education 2020 [employer]. 10/03/2022 13:10:26 Polycystic Ovarian Syndrome Polycystic Ovarian Syndrome Polycystic ovarian syndrome (PCOS) is a common hormonal disorder among women of reproductive age. In most women with PCOS, many small fluid-filled sacs (cysts) grow on the ovaries, and the cysts are not part of a normal menstrual cycle. PCOS can cause problems with your menstrual periods and make it difficult to get . It can also cause an increased risk of miscarriage with . If it is not treated, PCOS can lead to serious health problems, such as diabetes and heart disease. What are the causes? The cause of PCOS is not known, but it may be the result of a combination of certain factors, such as: Irregular menstrual cycle. High levels of certain hormones (androgens). Problems with the hormone that helps to control blood sugar (insulin resistance). Certain genes. What increases the risk? This condition is more likely to develop in women who have a family history of PCOS. What are the signs or symptoms? Symptoms of PCOS may include: Multiple ovarian cysts. Infrequent periods or no periods. Periods that are too frequent or too heavy. Unpredictable periods. Inability to get (infertility) because of not ovulating. Increased growth of hair on the face, chest, stomach, back, thumbs, thighs, or toes. Acne or oily skin. Acne may develop during adulthood, and it may not respond to treatment. Pelvic pain. Weight gain or obesity. Patches of thickened and dark brown or black skin on the neck, arms, breasts, or thighs (acanthosis nigricans). Excess hair growth on the face, chest, abdomen, or upper thighs (hirsutism). How is this diagnosed? This condition is diagnosed based on: Your medical history. A physical exam, including a pelvic exam. Your health care provider may look for areas of increased hair growth on your skin. Tests, such as: ?Ultrasound. This may be used to examine the ovaries and the lining of the uterus (endometrium) for cysts. ?Blood tests. These may be used to check levels of sugar (glucose), male hormone (testosterone), and female hormones (estrogen and progesterone) in your blood. How is this treated? There is no cure for PCOS, but treatment can help to manage symptoms and prevent more health problems from developing. Treatment varies depending on: Your symptoms. Whether you want to have a baby or whether you need control (contraception). Treatment may include nutrition and lifestyle changes along with: Progesterone hormone to start a menstrual period. control pills to help you have regular menstrual periods. Medicines to make you ovulate, if you want to get . Medicine to reduce excessive hair growth. Surgery, in severe cases. This may involve making small holes in one or both of your ovaries. This decreases the amount of testosterone that your body produces. Follow these instructions at home: Take pljz-loi-afschbc and prescription medicines only as told by your health care provider. Follow a healthy meal plan. This can help you reduce the effects of PCOS. ?Eat a healthy diet that includes lean proteins, complex carbohydrates, fresh fruits and vegetables, low-fat dairy products, and healthy fats. Make sure to eat enough fiber. If you are overweight, lose weight as told by your health care provider. ?Losing 10% of your body weight may improve symptoms. ?Your health care provider can determine how much weight loss is best for you and can help you lose weight safely. Keep all follow-up visits as told by your health care provider. This is important. Contact a health care provider if: Your symptoms do not get better with medicine. You develop new symptoms. This information is not intended to replace advice given to you by your health care provider. Make sure you discuss any questions you have with your health care provider. Document Released: 02/02/2006 Document Revised: 09/21/2018 Document Reviewed: 03/26/2017 [employer] Patient Education 2020 [employer] 10/03/2022 13:10:25 Ovarian Cyst Ovarian Cyst An ovarian cyst is a fluid-filled sac that forms on an ovary. The ovaries are small organs that produce eggs in women. Various types of cysts can form on the ovaries. Some may cause symptoms and require treatment. Most ovarian cysts go away on their own, are not cancerous (are benign), and do not cause problems. Common types of ovarian cysts include: Functional (follicle) cysts. ?Occur during the menstrual cycle, and usually go away with the next menstrual cycle if you do not get . ?Usually cause no symptoms. Endometriomas. ?Are cysts that form from the tissue that lines the uterus (endometrium). ?Are sometimes called chocolate cysts because they become filled with blood that turns brown. ?Can cause pain in the lower abdomen during intercourse and during your period. Cystadenoma cysts. ?Develop from cells on the outside surface of the ovary. ?Can get very large and cause lower abdomen pain and pain with intercourse. ?Can cause severe pain if they twist or break open (rupture). Dermoid cysts. ?Are sometimes found in both ovaries. ?May contain different kinds of body tissue, such as skin, teeth, hair, or cartilage. ?Usually do not cause symptoms unless they get very big. Theca lutein cysts. ?Occur when too much of a certain hormone (human chorionic gonadotropin) is produced and overstimulates the ovaries to produce an egg. ?Are most common after having procedures used to assist with the conception of a baby (in vitro fertilization). What are the causes? Ovarian cysts may be caused by: Ovarian hyperstimulation syndrome. This is a condition that can develop from taking fertility medicines. It causes multiple large ovarian cysts to form. Polycystic ovarian syndrome (PCOS). This is a common hormonal disorder that can cause ovarian cysts, as well as problems with your period or fertility. What increases the risk? The following factors may make you more likely to develop ovarian cysts: Being overweight or obese. Taking fertility medicines. Taking certain forms of hormonal control. Smoking. What are the signs or symptoms? Many ovarian cysts do not cause symptoms. If symptoms are present, they may include: Pelvic pain or pressure. Pain in the lower abdomen. Pain during sex. Abdominal swelling. Abnormal menstrual periods. Increasing pain with menstrual periods. How is this diagnosed? These cysts are commonly found during a routine pelvic exam. You may have tests to find out more about the cyst, such as: Ultrasound. X-ray of the pelvis. CT scan. MRI. Blood tests. How is this treated? Many ovarian cysts go away on their own without treatment. Your health care provider may want to check your cyst regularly for 2 3 months to see if it changes. If you are in menopause, it is especially important to have your cyst monitored closely because menopausal women have a higher rate of ovarian cancer. When treatment is needed, it may include: Medicines to help relieve pain. A procedure to drain the cyst (aspiration). Surgery to remove the whole cyst. Hormone treatment or control pills. These methods are sometimes used to help dissolve a cyst. Follow these instructions at home: Take brnq-pam-zqkfnsw and prescription medicines only as told by your health care provider. Do not drive or use heavy machinery while taking prescription pain medicine. Get regular pelvic exams and Pap tests as often as told by your health care provider. Return to your normal activities as told by your health care provider. Ask your health care provider what activities are safe for you. Do not use any products that contain nicotine or tobacco, such as cigarettes and e-cigarettes. If you need help quitting, ask your health care provider. Keep all follow-up visits as told by your health care provider. This is important. Contact a health care provider if: Your periods are late, irregular, or painful, or they stop. You have pelvic pain that does not go away. You have pressure on your bladder or trouble emptying your bladder completely. You have pain during sex. You have any of the following in your abdomen: ?A feeling of fullness. ?Pressure. ?Discomfort. ?Pain that does not go away. ?Swelling. You feel generally ill. You become constipated. You lose your appetite. You develop severe acne. You start to have more body hair and facial hair. You are gaining weight or losing weight without changing your exercise and eating habits. You think you may be . Get help right away if: You have abdominal pain that is severe or gets worse. You cannot eat or drink without vomiting. You suddenly develop a fever. Your menstrual period is much heavier than usual. This information is not intended to replace advice given to you by your health care provider. Make sure you discuss any questions you have with your health care provider. Document Released: 10/09/2006 Document Revised: 01/07/2019 Document Reviewed: 03/12/2017 [employer] Patient Education 2020 Badge. Follow Up Care 10/03/2022 08:07:39 With:DONA DELAROSA CNP Address: [address] [place] [address] When: Unknown [facility] [place] 05-12-2022 Hospital Discharge instructions Patient Education 05/12/2022 14:17:53 Post Op Patient Instructions - FT (Custom) 05/12/2022 14:04:01 Laparoscopic Appendectomy, Adult, Care After Laparoscopic Appendectomy, Adult, Care After This sheet gives you information about how to care for yourself after your procedure. Your health care provider may also give you more specific instructions. If you have problems or questions, contact your health care provider. What can I expect after the procedure? After the procedure, it is common to have: Little energy for normal activities. Mild pain in the area where the incisions were made. Difficulty passing stool (constipation). This can be caused by: ?Pain medicine. ?A decrease in your activity. Follow these instructions at home: Medicines Take mvtz-xgv-qahhiwz and prescription medicines only as told by your health care provider. If you were prescribed an antibiotic medicine, take it as told by your health care provider. Do not stop taking the antibiotic even if you start to feel better. Do not drive or use heavy machinery while taking prescription pain medicine. Ask your health care provider if the medicine prescribed to you can cause constipation. You may need to take steps to prevent or treat constipation, such as: ?Drink enough fluid to keep your urine pale yellow. ?Take bjjd-yel-wgkrbrs or prescription medicines. ?Eat foods that are high in fiber, such as beans, whole grains, and fresh fruits and vegetables. ?Limit foods that are high in fat and processed sugars, such as fried or sweet foods. Incision care Follow instructions from your health care provider about how to take care of your incisions. Make sure you: ?Wash your hands with soap and water before and after you change your bandage (dressing). If soap and water are not available, use hand gericare aide teacher. ?Change your dressing as told by your health care provider. ?Leave stitches (sutures), skin glue, or adhesive strips in place. These skin closures may need to stay in place for 2 weeks or longer. If adhesive strip edges start to loosen and curl up, you may trim the loose edges. Do not remove adhesive strips completely unless your health care provider tells you to do that. Check your incision areas every day for signs of infection. Check for: ?Redness, swelling, or pain. ?Fluid or blood. ?Warmth. ?Pus or a bad smell. Bathing Keep your incisions clean and dry. Clean them as often as told by your health care provider. To do this: 1.Gently wash the incisions with soap and water. 2.Rinse the incisions with water to remove all soap. 3.Pat the incisions dry with a clean towel. Do not rub the incisions. Do not take baths, swim, or use a hot tub for 2 weeks, or until your health care provider approves. You may take showers after [address] not drive for 24 hours if you were given a sedative during your procedure. Rest after the procedure. Return to your normal activities as told by your health care provider. Ask your health care provider what activities are safe for you. For 3 weeks, or for as long as told by your health care provider: ?Do not lift anything that is heavier than 10 lb (4.5 kg), or the limit that you are told. ?Do not play contact sports. General instructions If you were sent home with a drain, follow instructions from your health care provider about how to care for it. Take deep breaths. This helps to prevent your lungs from developing an infection (pneumonia). Keep all follow-up visits as told by your health care provider. This is important. Contact a health care provider if: You have redness, swelling, or pain around an incision. You have fluid or blood coming from an incision. Your incision feels warm to the touch. You have pus or a bad smell coming from an incision or dressing. Your incision edges break open after your sutures have been removed. You have increasing pain in your shoulders. You feel dizzy or you faint. You develop shortness of breath. You keep feeling nauseous or you are vomiting. You have diarrhea or you cannot control your bowel functions. You lose your appetite. You develop swelling or pain in your legs. You develop a rash. Get help right away if you have: A fever. Difficulty breathing. Sharp pains in your chest. Summary After a laparoscopic appendectomy, it is common to have little energy for normal activities, mild pain in the area of the incisions, and constipation. Infection is the most common complication after this procedure. Follow your health care provider's instructions about caring for yourself after the procedure. Rest after the procedure. Return to your normal activities as told by your health care provider. Contact your health care provider if you notice signs of infection around your incisions or you develop shortness of breath. Get help right away if you have a fever, chest pain, or difficulty breathing. This information is not intended to replace advice given to you by your health care provider. Make sure you discuss any questions you have with your health care provider. Document Released: 10/09/2006 Document Revised: 04/11/2019 Document Reviewed: 04/11/2019 [employer] Patient Education 2020 Badge. 05/12/2022 14:04:00 Laparoscopic Appendectomy, Adult Laparoscopic Appendectomy, Adult A laparoscopic appendectomy is a surgery to take out the appendix. The appendix is a finger-like structure that is attached to the large intestine. In this surgery, the appendix is removed through three small incisions with the help of a thin, lighted tube that has a camera (laparoscope). This procedure may be done to prevent an inflamed appendix from bursting (rupturing). It may also be done to treat the infection from an appendix that has already ruptured. It is usually done right after inflammation of the appendix (appendicitis) is diagnosed. This is a minimally invasive surgery. It usually results in less pain, fewer problems, and a quicker recovery than surgery done through a large incision. Tell a health care provider about: Any allergies you have. All medicines you are taking, including vitamins, herbs, eye drops, creams, and qouh-rhi-vtsiaje medicines. Use of steroids (by mouth or creams). Any problems you or family members have had with anesthetic medicines. Any blood disorders you have. Any surgeries you have had. Any medical conditions you have. Whether you are or may be . What are the risks? Generally, this is a safe procedure. However, problems may occur, including: Infection. Bleeding. Allergic reactions to medicines. Damage to other structures or organs. The formation of pus (abscesses). Long-lasting pain or scarring at the incision sites or inside the abdomen. Blood clots in the legs. What happens before the procedure? Eating and drinking restrictions Follow instructions from your health care provider about eating and drinking restrictions. You may be asked not to eat or drink as soon as the diagnosis of appendicitis is made. Medicines Ask your health care provider about: Changing or stopping your regular medicines. This is especially important if you are taking diabetes medicines or blood thinners. Taking medicines such as aspirin and ibuprofen. These medicines can thin your blood. Do not take these medicines unless your health care provider tells you to take them. Taking ltjd-xnv-voxaenm medicines, vitamins, herbs, and supplements. General instructions Plan to have someone take you home from the hospital. If you will be going home right after the procedure, plan to have someone with you for 24 hours. You may be given antibiotic medicine to help prevent infection or to treat existing inflammation or infection. Ask your health care provider how your surgical site will be marked or identified. Ask your health care provider what steps will be taken to help prevent infection. These may include: ?Removing hair at the surgery site. ?Washing skin with a germ-killing soap. ?Taking antibiotic medicine. What happens during the procedure? An IV will be inserted into one of your veins. You will be given one or more of the following: ?A medicine to help you relax (sedative). ?A medicine to numb the area (local anesthetic). ?A medicine to make you fall asleep (general anesthetic). A thin, flexible tube (catheter) may be put into your bladder to drain urine. A tube may be passed through your nose and into your stomach (NG tube, or nasogastric tube) to drain any stomach contents. Your surgeon will make three small incisions near your belly button (navel). Air-like gas will be used to fill your abdomen. The gas will make your abdomen expand. This helps the surgeon see clearly and gives him or her more room to work. A laparoscope will be passed through one of the incisions. Other long, thin surgical instruments will be passed through the other incisions. The appendix will be located and removed through one of the incisions. The abdomen may be washed out to remove bacteria. The incisions will be closed with stitches (sutures), alison, or adhesive strips. A bandage (dressing) may be used to cover the incisions. If a tube was inserted into your bladder or stomach, it will be removed. The procedure may vary among health care providers and hospitals. What happens after the procedure? Your blood pressure, heart rate, breathing rate, and blood oxygen level will be monitored until you leave the hospital. You will be given medicines as needed to control pain. Do not drive for 24 hours if you were given a sedative during your procedure. If your appendix did not rupture, you may be able to go home the same day after your surgery. If your appendix ruptured: ?You will get antibiotic medicine through an IV line. ?You may be sent home with a temporary drain. Summary A laparoscopic appendectomy is a surgery to take out the appendix. The appendix is removed through three small incisions with the help of a thin, lighted tube that has a camera. This is a safe procedure, but there are some risks, including bleeding, infection, allergic reaction to medicines, or damage to other organs. You may be asked not to eat or drink as soon as a diagnosis of appendicitis is made. After the procedure, your blood pressure, heart rate, breathing rate, and blood oxygen level will be monitored until you leave the hospital. This information is not intended to replace advice given to you by your health care provider. Make sure you discuss any questions you have with your health care provider. Document Released: 05/23/2005 Document Revised: 04/11/2019 Document Reviewed: 04/11/2019 [employer] Patient Education 2020 Badge. 05/12/2022 14:03:59 Appendicitis, Adult Appendicitis, Adult Appendicitis is inflammation of the appendix. The appendix is a finger-shaped tube that is attached to the large intestine. If appendicitis is not treated, it can cause the appendix to tear (rupture). A ruptured appendix can lead to a life-threatening infection. It can also cause a painful collection of pus (abscess) to form in the appendix. What are the causes? This condition may be caused by a blockage in the appendix that leads to infection. The blockage can be caused by: A ball of stool (feces). Enlarged lymph glands. In some cases, the cause may not be known. What increases the risk? Age is a risk factor. You are more likely to develop this condition if you are between 10 and 30 years of age. What are the signs or symptoms? Symptoms of this condition include: Pain that starts around the belly button and moves toward the lower right part of the abdomen. The pain can become more severe as time passes. It gets worse with coughing or sudden movements. Tenderness in the lower right abdomen. Nausea. Vomiting. Loss of appetite. Fever. Difficulty passing stool (constipation). Passing very loose stools (diarrhea). Generally feeling unwell. How is this diagnosed? This condition may be diagnosed with: A physical exam. Blood tests. Urine test. To confirm the diagnosis, an ultrasound, MRI, or CT scan may be done. How is this treated? This condition is usually treated with surgery to remove the appendix (appendectomy). There are two methods for doing an appendectomy: Open appendectomy. In this surgery, the appendix is removed through a large incision that is made in the lower right abdomen. This procedure may be recommended if: ?You have major scarring from a previous surgery. ?You have a bleeding disorder. ?You are and are about to give . ?You have a condition that makes it hard to do surgery through small incisions (laparoscopic procedure). This includes severe infection or a ruptured appendix. Laparoscopic appendectomy. In this surgery, the appendix is removed through small incisions. This procedure usually causes less pain and fewer problems than an open appendectomy. It also has a shorter recovery time. If the appendix has ruptured and an abscess has formed: A drain may be placed into the abscess to remove fluid. Antibiotic medicines may be given through an IV. The appendix may or may not need to be removed. Follow these instructions at home: If you had surgery, follow instructions from your health care provider about how to care for yourself at home and how to care for your incision. Medicines Take dghm-hkz-jfbdkoq and prescription medicines only as told by your health care provider. If you were prescribed an antibiotic medicine, take it as told by your health care provider. Do not stop taking the antibiotic even if you start to feel better. Eating and drinking Follow instructions from your health care provider about eating restrictions. You may slowly resume a regular diet once your nausea or vomiting stops. General instructions Do not use any products that contain nicotine or tobacco, such as cigarettes, e-cigarettes, and chewing tobacco. If you need help quitting, ask your health care provider. Do not drive or use heavy machinery while taking prescription pain medicine. Ask your health care provider if the medicine prescribed to you can cause constipation. You may need to take steps to prevent or treat constipation, such as: ?Drink enough fluid to keep your urine pale yellow. ?Take jxdo-uoh-suuozhb or prescription medicines. ?Eat foods that are high in fiber, such as beans, whole grains, and fresh fruits and vegetables. ?Limit foods that are high in fat and processed sugars, such as fried or sweet foods. Keep all follow-up visits as told by your health care provider. This is important. Contact a health care provider if: There is pus, blood, or excessive drainage coming from your incision. You have nausea or vomiting. Get help right away if you have: Worsening abdominal pain. A fever. Chills. Fatigue. Muscle aches. Shortness of breath. Summary Appendicitis is inflammation of the appendix. This condition may be caused by a blockage in the appendix that leads to infection. This condition is usually treated with surgery to remove the appendix. This information is not intended to replace advice given to you by your health care provider. Make sure you discuss any questions you have with your health care provider. Document Released: 10/09/2006 Document Revised: 03/27/2019 Document Reviewed: 03/27/2019 [employer] Patient Education [employer] Follow Up Care 05/11/2022 22:41:15 With:Raman Russell DO Address: [address] [place] [id number] [phone] When: Unknown Comments:Call for followup appointment [facility] 05-12-2022 Evaluation + Plan note Extrac aria from: Title:Admission H & P Author:Raman Russell DO Date:05/12/22 Acute appendicitis On further review of both the right upper quadrant ultrasound and CT scan there is little concern for any gallbladder disease. Based upon her leukocytosis as well as right lower quadrant exam pain with CT findings concerning for early appendicitis I think the patient should be treated with a laparoscopic appendectomy. Risk benefits and potential complications related to surgical intervention were explained to the patient. Explained that the findings on CAT were nonspecific but considering her physical exam findings and lab values correlating to her CT findings I feel as if appendicitis is the most likely diagnosis. Patient is agreeable to the treatment plan. We will start IV fluids at 150 cc an hour. Heparin 5000 every 8 hours. Zosyn 3.375 every 6hours. Extracted from: Title:Pre-anesthesia - Adult Author:Wiliam Diaz Jr., DO Date:05/12/22 Plan [place] [employer]est[employer] (ASA) physical status classification: Class III. Anesthetic Preoperative Plan Anesthesia: General. . Anesthetic plan, risks, benefits, and alternatives discussed with the patient and/or family. Patient verbalized understanding. Adverse reactions, complications, and alternatives discujssed. Consent signed and on chart.. Extracted from: Title:ED Note Author:William Yoder DO Date :05/12/22 Abdominal pain, acute (R10.9 : Unspecified abdominal pain) Leukocytosis (D72.829: Elevated white blood cell count, unspecified) Orders: morphine, 4 mg = 2 mL, Injection, IV Push, Once, Stop date 05/12/22 0:25:00 EDT, STAT, Start date 05/12/22 0:25:00 EDT, 05/12/22 0:25:00 EDT ondansetron, 4 mg = 2 mL, Injection, IV Push, Once, Stop date 05/12/22 0:25:00 EDT, STAT, Start date 05/12/22 0:25:00 EDT, 05/12/22 0:25:00 EDT piperacillin-tazobactam + Sodium Chloride 0.9% intravenous solution 50 mL, 3.375 gm = 1 EA, IV Piggyback, q6hrFT, STAT, Start date 05/12/22 2:58:00 EDT, 100 mL/hr, Infuse over 30 minute(s), 05/12/22 2:58:00 EDT Sodium Chloride 0.9% intravenous solution 1,000 mL, 1,000 mL, IV, 983.61 mL/hr, for 30 day(s), Stop date 06/11/22 0:24:00 EDT, STAT, Start date 05/12/22 0:25:00 EDT, 61 minute(s), Total volume (mL): 1,000, 89 kg, 2.05, m2 Automated Diff Basic Metabolic Panel CBC w/ Auto Diff CT Abdomen/Pelvis w/ Contrast eGFR Hepatic Function Panel Lipase Level Place in Status UA With Cult Reflex Future Appointments Appointment Date:06/14/2022 10:40:00 AM Scheduled Provider:Helene HAMILTON CNP Location:[facility] Appointment Type: Open Diagnostic Tests Pending * Basic Metabolic Panel 05/13/22 * CBC w/ Auto Diff 05/13/22 * PT & PTT 05/13/22 [facility]07-21-2022 NoteChief Complaint pt. presents to the ed with c/o right upper quadrant pain that started this morning. Pt. also complaining of nausea and vomiting. pt still has her appendix and gall bladder. History of Present Illness that has been negative for work-up.This is a 31-year-old female that presents with abdominal pain. She states the pain started just above her umbilicus and may be the right upper quadrant and now is located in the lower abdomen. Is associated with nausea and vomiting. She had chills at home but no fevers recorded. She is never anything like this before. She does note some intermittent abdominal pain in the past. Pain does not radiate. Nothing seems to make the pain better other than medicationswhich were given to her in the emergency department Review of Systems Constitutional: no fever, no chills, no sweats, no weakness Skin: no Jaundice, no rash, no lesions, nopetechiae ENMT: no ear pain, no sore throat, no congestion, no hoarseness Respiratory: no shortness of breath, no cough, no orthopnea, no wheezing Cardiovascular: no chest pain, no palpitations, no edema Gastrointestinal: no nausea, no vomiting, no diarrhea, no GI bleeding Genitourinary: no dysuria, no hematuria, no discharge, no pain Musculoskeletal: no back pain, no trauma Neurologic: no headache, no dizziness, no numbness, no weakness Psychiatric: no sleeping problems, no irritability, no mood swings/depression. Heme/Lymph: no bleeding tendency, no bruising tendency, no petechiae, no swollen nodes Allergy/Immunologic: no seasonal allergies, no food allergies, no recurrent infections, no impairedimmunity Additional ROS info: Except as noted in the above Review of Systems and in the History of Present Illness all other systems have been reviewed and are negative or noncontributory. Physical Exam Vitals & Measurements T: 36.9 ?C(Oral) TMIN: 36.4 ?C(Oral) TMAX: 37 ?C(Oral) HR: 77(Monitored) RR: 16 BP: 138/92 SpO2: 97% WT: 89 kg General: alert, no acute distress, laying in bed comfortably Skin: warm, dry Head: no trauma, normocephalic Neck: Trachea midline, no adenopathy, no tenderness Eye: normal conjunctiva, sclera clear ENMT: TM's clear, oral mucosa moist, no pharyngeal erythema or exudate Cardiovascular: Regular rate and rhythm on the monitor Respiratory: Lungs CTA, respirations non no audible wheezes or rhonchi. No respiratory distress Chest wall: no deformity. Gastrointestinal: Soft, nondistended, tender to palpation in the mid abdominal region as well as the right lower quadrant. No diffuse peritonitis noted Back: No tenderness, Normal ROM, Normal alignment. Extremities: no deformity, no trauma Neurological: oriented x 4, LOC appropriate for age, CN II-XII intact, motor strength equal & normal bilaterally, sensation equal & normal bilaterally, speech normal Psychiatric: cooperative, affect appropriate for age, normal judgement, normal psychiatric thoughts. Lab Results WBC: 19.3 E9/L High (05/11/22:09:) RBC: 5.2 E12/L (05/11/22::) HGB: 15.6 gm/dL (05/11/22::) Hct: 45.3 % (05/11/22::) MCV: 87.2 fL (05/11/22::) MCH: 30 pg (05/11/22:) MCHC: 34.4 gm/dL (05/11/22::) RDW: 13.2 % (05/11/22) Platelet: 325 E9/L (05/11/22) MPV: 8.9 fL (05/11/22::) Neutro Auto: 77.2 % High (05/11/22::) Lymph Auto: 16.5 % (05/11/22::) [place] Auto: 4.7 % (05/11/22::) Eos Auto: 1.2 % (05/11/22::) Basophil Auto: 0.4 % (05/11/22::) Neutro Absolute: 14.9 E9/L High (05/11/22::) Lymph Absolute: 3.2 E9/L (05/11/22::) [place] Absolute: 0.9 E9/L (05/11/22::) Eos Absolute: 0.2 E9/L (05/11/22::) Basophil Absolute: 0.1 E9/L (05/11/22::) Glucose Lvl: 125 mg/dL (05/11/22::) BUN: 15 mg/dL (05/11/22::) Creatinine: 1 mg/dL (05/11/22::) eGFR: >60 (05/11/22::) eGFR AA: >60 (05/11/22:09:00) BUN/Creat Ratio: 15 (05/11/22:09:00) Sodium Lvl: 137 mmol/L (05/11/22:09:00) Potassium Lvl: 3.8 mmol/L (05/11/22:09:00) Chloride: 102 mmol/L (05/11/22:09:00) CO2: 23 mmol/L (05/11/22:09:00) AGAP: 16 mEq/L (05/11/22:09:00) Calcium Lvl: 9.5 mg/dL (05/11/22:09:00) Alk Phos: 44 Int._Unit/L (05/11/22::) ALT: 34 Int._Unit/L (05/11/22::) AST: 29 Int._Unit/L (05/11/22::) Total Protein: 7.4 gm/dL (05/11/22::) Albumin Lvl: 4.6 gm/dL (05/11/22::00) Globulin: 2.8 gm/dL (05/11/22:09:00) A/G Ratio: 1.6 (05/11/22::) Bili Total: 0.9 mg/dL (05/11/22:09:00) Bili Direct: 0.1 mg/dL (05/11/22:09:00) Bili Indirect: 0.8 mg/dL (05/11/22:09:00) Lipase Lvl: 39 unit/L (05/11/22:09:00) ABO/Rh: B POS (05/12/22 05:12:00) ABSC Gel Interp: Negative (05/12/22 05:12:00) Images CT abdomen and pelvis reviewed with radiology. She does have some free fluid along the right side near her appendix. Her appendix is hyperenhancing wit (more content not included)...[facility]:Result Comment: Electronically Signed By: Raman Russell DO\.br\Date and Time Signed: 05/12/22 09:31 [id number] Hospital Discharge instructions Patient Education 03/08/2022 12:47:01 BMI for Adults BMI for Adults Body mass index (BMI) is a number that is calculated from a person's weight and height. BMI may help to estimate how much of a person's weight is composed of fat. BMI can help identify those who may be at higher risk for certain medical problems. How is BMI used with adults? BMI is used as a screening tool to identify possible weight problems. It is used to check whether aperson is obese, overweight, healthy weight, or underweight. How is BMI calculated? BMI measures your weight and compares it to your height. This can be done either in [place] or metric measurements. Note that charts are available to help you find your BMI quickly and easily without having to do these calculations yourself. To calculate your BMI in [place] measurements, your health care provider will: 1.Measure your weight in pounds (lb). 2.Multiply the number of pounds by 703. For example, for a person who weighs 180 lb, multiply that number by 703, which equals 126,540. 3.Measure your height in inches (in). Then multiply that number by itself to get a measurement called inches squared. For example, for a person who is 70 in tall, the inches squared measurement is 70 in x 70 in, which equals 4900 inches squared. 4.Divide the total from Step 2 (number of lb x 703) by the total from Step 3 (inches squared): 126,540 4900 = 25.8. This is your BMI. To calculate your BMI in metric measurements, your health care provider will: 1.Measure your weight in kilograms (kg). 2.Measure your height in meters (m). Then multiply that number by itself to get a measurement called meters squared. For example, for a person who is 1.75 m tall, the meters squared measurement is 1.75 m x 1.75 m, which is equal to 3.1 meters squared. 3.Divide the number of kilograms (your weight) by the meters squared number. In this example: 70 3.1 = 22.6. This is your BMI. How is BMI interpreted? To interpret your results, your health care provider will use BMI charts to identify whether you are underweight, normal weight, overweight, or obese. The following guidelines will be used: Underweight: BMI less than 18.5. Normal weight: BMI between 18.5 and 24.9. Overweight: BMI between 25 and 29.9. Obese: BMI of 30 and above. Please note: Weight includes both fat and muscle, so someone with a muscular build, such as an athlete, may havea BMI that is higher than 24.9. In cases like these, BMI is not an accurate measure of body fat. To determine if excess body fat is the cause of a BMI of 25 or higher, further assessments may needto be done by a health care provider. BMI is usually interpreted in the same way for men and women. Why is BMI a useful tool? BMI is useful in two ways: Identifying a weight problem that may be related to a medical condition, or that may increase the risk for medical problems. Promoting lifestyle and diet changes in order to reach a healthy weight. Summary Body mass index (BMI) is a number that is calculated from a person's weight and height. BMI may help to estimate how much of a person's weight is composed of fat. BMI can help identify those who may be at higher risk for certain medical problems. BMI can be measured using [place] measurements or metric measurements. To interpret your results, your health care provider will use BMI charts to identify whether you are underweight, normal weight, overweight, or obese. This information is not intended to replace advice given to you by your health care provider. Make sure you discuss any questions you have with your health care provider. Document Released: 06/20/2005 Document Revised: 09/21/2018 Document Reviewed: 08/22/2018 [employer] Patient Education 2020 Badge. 03/08/2022 12:46:57 Health Maintenance, Female Health Maintenance, Female Adopting a healthy lifestyle and getting preventive care are important in promoting health and wellness. Ask your health care provider about: The right schedule for you to have regular tests and exams. Things you can do on your own to prevent diseases and keep yourself healthy. What should I know about diet, weight, and exercise? Eat a healthy diet Eat a diet that includes plenty of vegetables, fruits, low-fat dairy products, and lean protein. Do not eat a lot of foods that are high in solid fats, added sugars, or sodium. Maintain a healthy weight Body mass index (BMI) is used to identify weight problems. It estimates body fat based on height and weight. Your health care provider can help determine your BMI and help you achieve or maintain a healthy weight. Get regular exercise Get regular exercise. This is one of the most important things you can do for your health. Most adults should: Exercise for at least 150 minutes each week. The exercise should increase your heart rate and make you sweat (moderate-intensity exercise). Do strengthening exercises at least twice a week. This is in addition to the moderate-intensity exercise. Spend less time sitting. Even light physical activity can be beneficial. Watch cholesterol and blood lipids Have your blood tested for lipids and cholesterol at 20 years of age, then have this test every 5 years. Have your cholesterol levels checked more often if: Your lipid or cholesterol levels are high. You are older than 40 years of age. You are at high risk for heart disease. What should I know about cancer screening? Depending on your health history and family history, you may need to have cancer screening at various ages. This may include screening for: Breast cancer. Cervical cancer. Colorectal cancer. Skin cancer. Lung cancer. What should I know about heart disease, diabetes, and high blood pressure? Blood pressure and heart disease High blood pressure causes heart disease and increases the risk of stroke. This is more likely to develop in people who have high blood pressure readings, are of descent, or are overweight. Have your blood pressure checked: ?Every 3 5 years if you are 18 39 years of age. ?Every year if you are 40 years old or older. Diabetes Have regular diabetes screenings. This checks your fasting blood sugar level. Have the screening done: Once every three years after age 40 if you are at a normal weight and have a low risk for diabetes. More often and at a younger age if you are overweight or have a high risk for diabetes. What should I know about preventing infection? Hepatitis B If you have a higher risk for hepatitis B, you should be screened for this virus. Talk with your health care provider to find out if you are at risk for hepatitis B infection. Hepatitis C Testing is recommended for: Everyone born from 1945 through 1965. Anyone with known risk factors for hepatitis C. Sexually transmitted infections (STIs) Get screened for STIs, including gonorrhea and chlamydia, if: ?You are sexually active and are younger than 24 years of age. ?You are older than 24 years of age and your health care provider tells you that you are at risk for this type of infection. ?Your sexual activity has changed since you were last screened, and you are at increased risk for chlamydia or gonorrhea. Ask your health care provider if you are at risk. Ask your health care provider about whether you are at high risk for HIV. Your health care providermay recommend a prescription medicine to help prevent HIV infection. If you choose to take medicineto prevent HIV, you should first get tested for HIV. You should then be tested every 3 months for as long as you are taking the medicine. If you are about to stop having your period (premenopausal) and you may become , seek counseling before you get . Take 400 to 800 micrograms (mcg) of folic acid every day if you become . Ask for control (contraception) if you want to prevent . Osteoporosis and menopause Osteoporosis is a disease in which the bones lose minerals and strength with aging. This can resultin bone fractures. If you are 65 years old or older, or if you are at risk for osteoporosis and fractures, ask your health care provider if you should: Be screened for bone loss. Take a calcium or vitamin D supplement to lower your risk of fractures. Be given hormone replacement therapy (HRT) to treat symptoms of menopause. Follow these instructions at home: Lifestyle Do not use any products that contain nicotine or tobacco, such as cigarettes, e- cigarettes, and chewing tobacco. If you need help quitting, ask your health care provider. Do not use street drugs. Do not share needles. Ask your health care provider for help if you need support or information about quitting drugs. Alcohol use Do not drink alcohol if: ?Your health care provider tells you not to drink. ?You are , may be , or are planning to become . If you drink alcohol: ?Limit how much you use to 0 1 drink a day. ?Limit intake if you are . Be aware of how much alcohol is in your drink. In the [place] one drink equals one 12 oz bottle of beer (355 mL), one 5 oz glass of wine (148 mL), or one 1 oz glass of hard liquor (44 mL). General instructions Schedule regular health, dental, and eye exams. Stay current with your vaccines. Tell your health care provider if: ?You often feel depressed. ?You have ever been abused or do not feel safe at home. Summary Adopting a healthy lifestyle and getting preventive care are important in promoting health and wellness. Follow your health care provider's instructions about healthy diet, exercising, and getting tested or screened for diseases. Follow your health care provider's instructions on monitoring your cholesterol and blood pressure. This information is not intended to replace advice given to you by your health care provider. Make sure you discuss any questions you have with your health care provider. Document Released: 04/23/2012 Document Revised: 10/02/2019 Document Reviewed: 10/02/2019 [employer] Patient Education 2020 Badge. Follow Up Care 02/21/2022 15:20:41 With:Helene HAMILTON CNP Address: [address] [place], [place] [id number] When:Within 1 Month(s) [facility] Primary Care Evaluation + Plan note Future Appointments Appointment Date:04/05/2022 11:20:00 AM Scheduled Provider:Helene HAMILTON CNP Location:[facility] Appointment Type: Open [facility] Primary Care Evaluation note* Diagnosis Well woman exam with routine gynecological exam Routine gynecological examination documented [facility]* Diagnosis Missed menses 7 weeks gestation of , unspecified gestational age Encounter for supervision of normal first in first trimester documented [facility] Narrative No data available for this section [facility] Primary Care Hospital Discharge instructions No data available for this section [facility] Primary Care Progress note No data available for this section [facility] Summary Purpose Family History No Family History Records FoundNo Family History Records FoundNo Family History Records Found Advance Directives No Advanced Directives Records FoundNo Advanced Directives Records FoundNo Advanced Directives Records Found Additional Source Comments INFORMATION SOURCE (unrecogn ized section and content) DATE CREATED AUTHOR 05/26/2020 [facility] DATE CREATED AUTHOR AUTHOR'S ORGANIZ ATION 03/02/2023 [facility] DATE CREATED AUTHOR AUTHOR'S ORGANIZ ATION 10/31/[address] [facility] EPIC Care Team (unrecognized sect ion and content) Personnel Name: Helene HAMILTON CNP Address: [address] Personnel Name: Helene HAMILTON CNP Address: [address] Personnel Name: Rachna HAMILTON CNPine Darwin Address: Address: [facility] [address] Taylor [address] Personnel Name: Rachna HAMILTON CNPdhara Granados Address: Address: [facility] [address] Taylor [address] Personnel Name: Helene HAMILTON CNP Address: Address: [facility] [address]ta [address] Reason for Visit (unrecogniz ed section and content) Reason Comments Well Women Visit Reason Comments Amenorrhea FOR RECORDS PERTAINING TO PATIENTS WHO ARE OR HAVE BEEN ENROLLED IN A CHEMICAL DEPENDENCY/SUBSTANCEABUSE PROGRAM, SOME INFORMATION MAY BE OMITTED. This clinical summary was aggregated from multiple sources. Caution should be exercised in using it in the provision of clinical care. This summary normalizes information from multiple sources, and as a consequence, information in this document may materially change the coding, format and clinical context of patient data. In addition, data may be omitted in some cases. CLINICAL DECISIONS SHOULD BE BASED ON THE PRIMARY CLINICAL RECORDS. [facility]. provides no warranty or guarantee of the accuracy or completeness of information in this document.
--- NOTE | 2024-11-08 10:17 | US_ITS ---
The [address] [address] Patient Name: LE STACK MRN: [id number] date: 1990 Sex: F Assigned Patient Location: [place] Current Patient Location: [place] Accession/Order Number: [id number] Exam Date: 11/08/2024 10:18 Report Date: 11/08/2024 11:32 At the request of: NEHA CAMPBELL Procedure: US OB transvaginal EXAMINATION: US OB transvaginal HISTORY: Vaginal Bleeding In Early COMPARISON: No relevant comparison available. FINDINGS: GESTATIONAL SAC: Present and normal appearing. YOLK SAC: Present and normal appearing. POLE: Present and normal appearing. CARDIAC: Present. UTERUS: Normal size and appearance. OVARIES: Right: Not seen. Left: Cyst; possible corpus lutein cyst. CERVIX: 4.4 cm in length and closed. CUL-DE-SAC: Normal. OTHER: None. AGE BY LMP: 9 weeks 1 day VIJAYA BY LMP: 06/12/2025 AGE BY US CRL: 10 weeks 0 days VIJAYA BY US CRL: 06/06/2025 US/US OB transvaginal IMPRESSION: 1. Single live intrauterine . Electronically authenticated by: EKATERINA SHERIDAN Date: 11/08/2024 11:32
[2024-11-08 10:22] LABS: Basophils Absolute Auto 0.1 10^3/uL (0.0-0.1); Basophils Percent Auto 0.5 % (0.2-2.0); Eosinophils Absolute Auto 0.1 10^3/uL (0.0-0.7); Hematocrit 41.8 % (36.0-48.0); Immature Granulocytes Abs Auto 0.06 10^3/uL (0.00-0.03); Immature Granulocytes Pct Auto 0.5 % (0.0-0.5); Lymphocytes Percent Auto 24.2 % (20.5-60.0); Mean Corpuscular HGB Conc 33.5 g/dL (29.9-35.2); Mean Corpuscular Hemoglobin 29.2 pg (26.7-34.0); Mean Corpuscular Volume 87.1 fL (81.0-99.0); Mean Platelet Volume 10.1 fL (9.5-13.5); Monocytes Absolute Auto 0.8 10^3/uL (0.3-0.8); Monocytes Percent Auto 6.4 % (1.7-12.0); Neutrophils Absolute Auto 8.5 10^3/uL (1.4-6.5); Neutrophils Percent Auto 67.4 % (43.0-75.0); Platelet Count 357 10^3/uL (150-450); Red Cell Distribution Width 12.4 % (11.0-15.0); White Blood Count 12.6 10^3/uL (4.0-11.0)
[2024-11-08 10:44] LABS: Estimated Average Glucose 120 mg/dL; Glycohemoglobin A1C 5.8 % (4.5-6.2)
[2024-11-08 10:49] LABS: Amphetamine Screen Urine NEGATIVE (NEGATIVE); Barbiturates Screen Urine NEGATIVE (NEGATIVE); Benzodiazepines Screen Urine NEGATIVE (NEGATIVE); Buprenorphine Screen Urine NEGATIVE (NEGATIVE); Cannabinoid Screen Urine NEGATIVE (NEGATIVE); Cocaine Screen Urine NEGATIVE (NEGATIVE); Methadone Screen Urine NEGATIVE (NEGATIVE); Methamphetamines Screen Urine NEGATIVE (NEGATIVE); Opiate Screen Urine NEGATIVE (NEGATIVE); Oxycodone Screen Urine NEGATIVE (NEGATIVE); Phencyclidine Screen Urine NEGATIVE (NEGATIVE); Tricyclic Antidepressant Urine NEGATIVE (NEGATIVE)
[2024-11-09 05:07] LABS: HCV Ab Non Reactive (Non Reactive); HIV Ab/p24 Ag Screen Non Reactive (Non Reactive); Rubella Antibodies, IgG 1.78 index (Immune >0.99)
[2024-11-09 06:08] LABS: HBsAg Screen Negative (Negative)
[2024-11-09 12:09] LABS: Rapid Plasma Reagin, Quant Non Reactive titer (NonRea<1:1)
== END 2024-11-08 09:56 | disposition home or self-care (01) ==
LOC: US 09:58
PROVIDERS: Visit Provider Obstetrics & Gynecology
DX: O20.9 Hemorrhage in early pregnancy, unspecified (principal); Z3A.10 10 weeks gestation of pregnancy; N92.6 Irregular menstruation, unspecified
CPT/HCPCS: 36415; 76817; 80307; 83036; 85025; 86592; 86762; 86803; 86850; 86900; 86901; 87086; 87340; 87389

== ENCOUNTER 2024-12-30 09:50 | Outpatient (OUT) | payer BC, SELFPAY ==
--- OUTSIDE RECORDS SUMMARY | 2024-12-30 10:13 | XMS_ITS | CCD ---
Author Organization [facility] Care Team Providers Care Tonguer Name Role Phone Helene HAMILTON Primary Care Physician DO William Yoder Admitting Unavailable Raman Russell Attending Unavailabl e WASHINGTON, DONA Nuñez Attending Unavailable SIDEDONA MILLS Attending Unavailable FELIPE, Kuldeep Jordan Attending Unavailable SPETTEL, Helene Granados Attending Unavailable SPETTEL, Helene Granados Attending Unavailable SPETTEL, Helene Granados Attending Unavailable SPETTEL, Helene Granados Attending Unavailable SPETTEL, Helene Granados Admitting Unavailable SPETTEL, Helene Granados Consulting Unavailable SPETTEL, Helene Granados Attending Unavailable REFERRAL, SELF Referring Unavailable SPETTEL, SUPERVISOR [employer] Helene Granados Consulting Unavaila ble SPETTEL, Helene Granados Consulting Unavailable SPETTEL, Helene Granados Consulting Unavailable SPETTEL, Helene Granados Consulting Unavailable SPETTEL, Helene Granados Consulting Unavailable SPETTEL, Helene Granados Consulting Unavailable SPETTEL, Helene Granados Consulting Unavailable SPETTEL, Helene Granados Consulting Unavailable Unavailable Primary Care Provider Unavailabl e Unavailable Primary Care Provider UnavailMIK Geller Attending Unavailable LINDSEY COBB Attending Unavailable MIK BORREGO Attending Unavailable ELMO, MIK Attending Unavailable Allergies Allergy Classification Reported Allergen(s) Allergy Type Date of Onset Reaction(s) Facility (20 sources) metFORMIN; Translations: [metformin] Drug Allergy 05-06-20 Rhabdomyolysis (disorder), Other (See Comments) [facility] (20 sources) Phentermine; Translations: [phentermine] Drug Allergy 09-16-20 Dyspnea (finding), Weal (disorder), Shortness of breath [facility] (1 source) No Known Medication Allergies; Translations: [No Known Medication Allergies] Propensity to adverse reactions (disorder) [facility] (13 sources) dulaglutide Drug Allergy 05-06-20 [facility] (13 sources) Sulfites Propensity to adverse reactions 05-06-20 [facility] (12 sources) metFORMIN Drug Allergy 09-16-20 [facility] (6 sources) Other Propensity to adverse reactions 11-25-19 [facility] (1 source) dulaglutide Drug Allergy 12-06-19 [facility] (1 source) Gelatin Drug Allergy 12-06-19 [facility] Medications Current Medications Medication Drug Class(es) Dates Sig (Normalized) Sig (Original) [id number] 200 actuat albuterol 0.09 mg/actuat metered dose inhaler (17 sources) beta2-Adrenergic Agonist Start: 04-04-2024 albuterol HFA 90 mcg/act inhaler 04/04/2024 Active Start: 10-19-2021 take 1 dose by inhal ation every four hours ProAir HFA 90 mcg/inh inhalation aerosol 2 puff(s), Inhalation, q4hr for wheezing, 1 EA, Refill(s) 11, [facility] #[id number], 170, cm, 07/13/21 9:30:00 EDT, Height/Length Dosing, 88.5, kg, 07/13/21 9:30:00 EDT, Weight Dosing Start Date: 10/19/21 Status: Ordered take 2 puff(s) by in halation every six hours as needed for wheezing albuterol (PROVENTIL HFA;VENTOLIN HFA) 90 mcg/actuation inhaler Inhale 2 puffs every 6 (six) hours as needed for wheezing. Active albuterol HFA 90 mcg/inh MDI (2 sources) Start: 10-03-2022 take 2 puff(s) by inhalation every six hours for wheezing albuterol HFA 90 mcg/inh MDI 2 puff(s), Inhalation, q6hr for wheezing, 18 gram, Refill(s) 0, [facility] #[id number], 170, cm, 05/17/22 11:42:00 EDT, Height/Length Dosing, [...] q24hr, # 90 tab(s), Refills(s) 1, Pharmacy: [facility] #[id number], 170, cm, 05/17/22 11:42:00 EDT, Height/Length Dosing, 95.1, kg, 05/17/22 11:42:00 EDT, Weight Dosing Start Date: 06/20/22 Status: Ordered Start: 03-08-2022 take 1 tablet by volodymyr th every twenty-four hours Wellbutrin XL 150 mg/24 hours Tab-ER 150 mg = 1 tab(s), Oral, q24hr, # 30 tab(s), Refills(s) 2, Pharmacy: [facility] #[id number], 170, cm, 03/08/22 10:25:00 EDT, Height/Length Dosing, 98.4, kg, 03/08/22 10:25:00 EDT, Weight Dosing Start Date: 03/08/22 Status: Ordered Start: 03-08-2022 take 1 tablet by volodymyr th every twenty-four hours Wellbutrin XL 150 mg/24 hours Tab-ER 150 mg = 1 tab(s), Oral, q24hr, # 30 tab(s), Refills(s) 2, Pharmacy: [facility] #[id number], 170, cm, 03/08/22 10:25:00 EDT, Height/Length Dosing, 98.4, kg, 03/08/22 10:25:00 EDT, Weight Dosing Start Date: 03/08/22 Status: Ordered cetirizine hydrochloride 10 mg oral tablet (14 sources) Histamine-1 Receptor Antagonist cetirizine (ZyrTEC) 10 [...] qPM, # 90 tab(s), Refills(s) 3, [id number], 170, cm, 05/17/22 11:42:00 EDT, Height/Length Dosing, 95.1, kg, 05/17/22 11:42:00 EDT, Weight Dosing Start Date: 10/03/22 Status: Ordered Start: 06-22-2021 take 1 tablet by volodymyr th once daily in the evening Singulair 10 mg Tab 10 mg = 1 tab(s), Oral, qPM, # 90 tab(s), Refills(s) 3, Pharmacy: [facility], 170, cm, 04/06/21 9:19:00 EDT, Height/Length Dosing, 90, kg, 04/06/21 9:19:00 EDT, Weight Dosing Start Date: 06/22/21 Status: Ordered naltrexone hydrochloride 50 mg oral tablet (5 sources) Opioid Antagonist Start: 04-12-2022 take 1 tablet by mouth once daily naltrexone 50 mg oral tablet See Instructions, 1 tablet daily, # 90 tab(s), Refills(s) 0, Pharmacy: [facility] #[id number], 170, cm, 04/12/22 11:02:00 EDT, Height/Length Dosing, [...] pain, # 10 tab(s), Refills(s) 0, Pharmacy: [facility] #[id number], 170, cm, 05/11/22 22:56:00 EDT, Height/Length Dosing, [...] E66.9, # 30 tab(s), Refills(s) 0, Pharmacy: [facility] #[id number], 170, cm, 03/08/22 10:25:00 EDT, Height/Length Dosing, [...] mg, SubCutaneous, qWeek, 1 EA, Refill(s) 5, [facility] #[id number], 170, cm, 05/11/22 22:56:00 EDT, Height/Length Dosing, 89, kg, 05/11/22 22:56:00 EDT, Weight Dosing Start Date: 05/12/22 Status: Ordered spironolactone 25 mg oral tablet (6 sources) Aldosterone Antagonist Start: 06-22-2021 take 1 tablet by mouth twice daily spironolactone 25 mg Tab 25 mg = 1 tab(s), Oral, BID, # 180 tab(s), Refills(s) 3, Pharmacy: [facility], 170, cm, 04/06/21 9:19:00 EDT, [...] hours, # 4 tab(s), Refills(s) 1, Pharmacy: [facility], 170, cm, 11/03/20 13:01:00 EST, [...] hours, # 4 tab(s), Refills(s) 1, Pharmacy: [facility], 170, cm, 11/03/20 13:01:00 EST, Height/Length Dosing, 94.7, kg, 11/03/20 13:01:00 EST, Brandon... Start Date: 11/03/20 Status: Ordered Ventolin HFA 90 mcg/inh Aerosol (4 sources) Start: 10-18-2021 take 1 puff(s) by inhalation once for wheezing Ventolin HFA 90 mcg/inh Aerosol 1 puff(s), Inhalation, Once for wheezing, 6.7 gm, Refill(s) 2, [facility] #[id number], 170, cm, 07/13/21 9:30:00 EDT, Height/Length Dosing, [...] Nausea/Vomiting, # 30 tab(s), Refills(s) 1, Pharmacy: [facility] #[id number], 170, cm, 05/11/22 22:56:00 EDT, Height/Length Dosing, 89, kg, 05/11/22 22:56:00 EDT, Weight Dosing Start Date: 05/12/22 Status: Ordered Start: 12-22-2021 take 1 tablet by volodymyr th every eight hours as needed for nausea Zofran ODT 4 mg Tab-Dis 4 mg = 1 tab(s), Oral, q8hr, PRN Nausea/Vomiting, # 12 tab(s), Refills(s) 0, Pharmacy: [facility] #[id number], 170, cm, 12/22/21 7:22:00 EST, Height/Length Dosing, [...] # 2 tab(s), Refills(s) 0, Prophylaxis, Pharmacy: [facility] #[id number], 170, cm, 05/17/22 11:42:00 EDT, Height/Length Dosing, [...] (Other) Start: 10-03-2022 take 1 capsule by [facility] once daily in the morning Vyvanse 50 mg oral capsule 50 mg, 1 cap(s), Oral, qAM, Refill(s) 0 Start Date: 10/03/22 Status: Ordered ProAir HFA 90 mcg/inh inhalation aerosol (1 source) Start: 10-19-2021 take 1 dose by inhalation every four hours ProAir HFA 90 mcg/inh inhalation aerosol 2 puff(s), Inhalation, q4hr for wheezing, 1 EA, Refill(s) 11, [facility] #[id number], 170, cm, 07/13/21 9:30:00 EDT, Height/Length Dosing, 88.5, kg, 07/13/21 9:30:00 EDT, Weight Dosing Start Date: 10/19/21 Status: Ordered Problems Active Problems Problem Classification Problem Date Documented Date Episodic/Chronic Abdominal pain (4 sources) Abdominal pain; Translations: [Unspecified abdominal pain] Onset: 05-12-2022 Episodic Administrative/social admission (3 sources) Patient encounter status; Translations: [Persons encountering health [...] lipid metabolism (6 sources) Hyperlipidemia 11-03-2020 Chronic Hemorrhage during ; abruptio placenta; placenta previa (8 sources) Vaginal bleeding complicating early ; Translations: [Hemorrhage in early , unspecified] Onset: 11-06-2024 11-06-2024 Episodic Immunizations and screening for infectious disease (2 sources) Exposure to sexually transmissible disorder; Translations: [Contact with and (suspected) exposure to infections with a predominantly sexual mode of transmission] 12-23-2024 Episodic Menstrual disorders (4 sources) Secondary dysmenorrhea; 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] Onset: 10-03-2022 10-03-2022 Chronic Mood disorders (6 sources) Depressive disorder 10-20-2020 Chronic Nausea and vomiting (3 sources) Nausea and vomiting; Translations: [Nausea with vomiting, unspecified] Onset: 10-03-2022 10-03-2022 Episodic Nutritional deficiencies (6 sources) Vitamin D deficiency 01-28-2021 Chronic Other aftercare (1 source) Long-term current use of drug therapy; Translations: [Other intermediate (current) drug therapy] Onset: 03-08-2022 Episodic Other aftercare (4 sources) Postoperative visit 05-17-2022 Episodic Other complications of (1 source) Headache; Translations: [Other specified related conditions, unspecified trimester] Onset: 12-25-2024 12-25-2024 Episodic Other endocrine disorders (8 sources) Polycystic ovary syndrome; Translations: [Polycystic ovarian syndrome] Onset: 03-08-2022 Chronic Other endocrine disorders (6 sources) Polycystic ovaries 06-19-2019 Chronic Other female genital disorders (2 sources) Vaginal discharge; Translations: [Other specified noninflammatory disorders of vagina] 12-23-2024 Episodic Other nutritional; endocrine; and metabolic disorders (1 source) Obese class I; Translations: [Body mass index (BMI) 34.0-34.9, adult] Onset: 03-08-2022 Chronic Other nutritional; endocrine; and metabolic disorders (20 sources) Obesity; Translations: [Obesity, unspecified] Onset: 03-08-2022 Chronic Other nutritional; endocrine; and metabolic disorders (20 sources) Body mass index 30+ - obesity 11-03-2020 Chronic Other and delivery including normal (6 sources) ; Translations: [Encounter for supervision of normal , unspecified, unspecified trimester] 10-24-2024 Episodic Residual codes; unclassified (1 source) Gestation period, 7 weeks; Translations: [Less than 8 weeks gestation of ] 10-24-2024 Episodic Residual codes; unclassified (2 sources) Gestation period, 11 weeks; Translations: [11 weeks gestation of ] 11-25-2024 Episodic Residual codes; unclassified (2 sources) Gestation period, 15 weeks; Translations: [15 weeks gestation of ] 12-23-2024 Episodic Unclassified (6 sources) Drug therapy finding 11-03-2020 Unclassified (6 sources) Patient encounter status 11-03-2020 Viral infection (6 sources) 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 Episodic Past or Other Problems Problem Classification Problem Date Documented Da te Episodic/Chronic Viral infection (1 source) Disease caused by 2019-nCoV; Translations: [COVID-19] Results Test Name Value Interpretation Reference Range Facility RECURRENT VAGINITIS (HTRX)on 12-25-2024 ATOPOBIUM VAGINAE 0 [facility] ATOPOBIUM VAGINAE Not detected [facility] BVAB 2,3 (BACTERIAL VAGINOSIS ASSOCIATED BACTERIA 2, 3); MOBILUNCUS SPP 0 [facility] BVAB 2,3 (BACTERIAL VAGINOSIS ASSOCIATED BACTERIA 2, 3); MOBILUNCUS SPP Not detected [facility] KACEY ALBICANS, PARAPSILOSIS, TROPICALIS 0 [facility] KACEY ALBICANS, PARAPSILOSIS, TROPICALIS Not detected [facility] KACEY GLABRATA 0 [facility] KACEY GLABRATA [facility] KRUSEI 0 [facility] KACEY KRUSEI Not [facility] CHLAMYDIA TRACHOMATIS 0 [facility] CHLAMYDIA TRACHOMATIS Not detected N [facility] GARDNERELLA VAGINALIS 0 [facility] GARDNERELLA VAGINALIS Not detected N [facility] MEGASPHAERA (TYPES 1, 2) 0 [facility] MEGASPHAERA (TYPES 1, 2) Not detected [facility] MYCOPLASMA GENITALIUM 0 NOM [facility] MYCOPLASMA GENITALIUM Not detected N [facility] NEISSERIA GONORRHOEAE 0 [facility] NEISSERIA GONORRHOEAE Not detected N [facility] TRICHOMONAS VAGINALIS 0 [facility] TRICHOMONAS VAGINALIS Not detected N [facility] Urinalysis macro (dipstick) panel (U)on 12-23-2024 Bilirubin, UA Negative Negative - 4(70) +++ mg/dL [facility] Blood, UA Negative Negative - 50 Albin/mcL [facility] Clarity, UA Clear [facility] Color, UA Yellow [facility] Glucose, UA Negative Negative - 1999(110) ++++ mg/dL [facility] Interpretation and review of laboratory results Abnormal [facility] Ketones, UA Positive Negative - 160(16) ++++ mg/dL [facility] Comment on above: 40mg/dL Leukocytes, UA Negative Negative - 500+++ Jack/mcL [facility] Nitrite, UA Negative Negative - Positive [facility] pH, UA 5.5 5 - 9 [facility] Protein, UA Negative Negative - 1999(20) ++++ mg/dL [facility] Spec Grav, UA 1.025 1 - 1.03 [facility] Urobilinogen, UA 0.2 0.2 - 12 mg/dL [facility] Urinalysis macro (dipstick) panel (U)on 11-25-2024 Bilirubin, UA Positive Negative - 4(70) +++ mg/dL [facility] Blood, UA Negative Negative - 50 Albin/mcL [facility] Clarity, UA Clear [facility] Color, UA Yellow [facility] Glucose, UA Negative Negative - 2000(110) ++++ mg/dL [facility] Interpretation and review of laboratory results Abnormal [facility] Ketones, UA Positive Negative - 160(16) ++++ mg/dL [facility] Leukocytes, UA Negative Negative - 500+++ Jack/mcL [facility] Nitrite, UA Negative Negative - Positive [facility] pH, UA 6 5 - 9 [facility] Protein, UA Positive Negative - 2000(20) ++++ mg/dL [facility] Spec Grav, UA 1.025 1 - 1.03 [facility] Urobilinogen, UA 0.2 0.2 - 12 mg/dL [facility] ALL CBC WITH AUTO DIFFon BASOPHILS ABSOLUTE AUTO 0.1 [facility] Basophils/100 WBC (Bld) 0.5 % 0.2 - 2.0 % [facility] Eosinophils/100 WBC (Bld) 1 % 0.9 - 7.0 % [facility] Erythrocyte distribution width (RBC) [Ratio] 12.4 % 11.0 - 15.0 % [facility] Hematocrit (Bld) [Volume fraction] 41.8 % 36.0 - 48.0 % [facility] Hemoglobin (Bld) [Mass/Vol] 14 g/dL 12.0 - 16.0 g/dL [facility] IMMATURE GRANULOCYTES ABS AUTO 0.06 High [facility] Immature granulocytes/100 WBC (Bld) 0.5 % 0.0 - 0.5 % [facility] Interpretation and review of laboratory results Abnormal [facility] LYMPHOCYTES ABSOLUTE AUTO 3 [facility] Lymphocytes/100 WBC (Bld) 24.2 % 20.5 - 60.0 % [facility] MCH (RBC) [Entitic mass] 29.2 pg 26.7 - 34.0 pg [facility] MCHC (RBC) [Mass/Vol] 33.5 g/dL 29.9 - 35.2 g/dL [facility] MCV (RBC) [Entitic vol] 87.1 fL 81.0 - 99.0 fL [facility] MONOCYTES ABSOLUTE AUTO 0.8 [facility] Monocytes/100 WBC (Bld) 6.4 % 1.7 - 12.0 % [facility] NEUTROPHILS ABSOLUTE AUTO 8.5 High [facility] Neutrophils/100 WBC (Bld) 67.4 % 43.0 - 75.0 % [facility] Platelet mean volume (Bld) [Entitic vol] 10.1 fL 9.5 - 13.5 fL [facility] TBH EO # 0.1 [facility] PLT 357 [facility] RBC 4.8 [facility] WBC 12.6 High [facility] HCG ( test) Ql (U)o n 10-24-2024 Interpretation and review of laboratory results Abnormal [facility] Preg Test, Ur Positive Negative [facility] US OB TRANSVAGINALon 025 US OB TRANSVAGINAL TITLE [...] x 2.5 cm (6 weeks, 5 days). Omao rump length is 0.9 cm (7 weeks, [...] UA Negative Negative - 4(70) +++ mg/dL [facility] Blood, UA Negative Negative - 50 Albin/mcL [facility] Clarity, UA Clear [facility] Color, UA Yellow [facility] Glucose, UA Negative Negative - 1999(110) ++++ mg/dL [facility] Interpretation and review of laboratory results Normal [facility] Ketones, UA Negative Negative - 160(16) ++++ mg/dL [facility] Leukocytes, UA Negative Negative - 500+++ Jack/mcL [facility] Nitrite, UA Negative Negative - Positive [facility] pH, UA 6 5 - 9 [facility] Protein, UA Negative Negative - 1999(20) ++++ mg/dL [facility] Spec Grav, UA 1.015 1 - 1.03 [facility] Urobilinogen, UA 0.2 0.2 - 12 mg/dL [facility] IGP,APTIMA HPV,AGE GDLNon AGE GDLN ACOG TESTING Note . [facility] Comment on above: TESTS RESULT FLAG UN ITS REF RANGE LAB Clinician Provided Cytology Information Source.............Cervix No. of containers..01 ThinPrep Vial Age Algo ACOG Yumiko... 30-65 01 FLAG LEGEND: L-Low Normal,H-High Normal,LL-Alert Low,HH-Alert High <-Panic Low,>-Panic High,A-Abnormal,AA-Critical Abnormal Performed at: 01 =G [facility] [address] Nina Julien MD, HPV APTIMA Negative Negative [facility] Comment on above: This nucleic acid am plification test detects fourteen high- risk HPV types (16,18,31,33,35,39,45,51,52,56,58,59,66,68) without differentiation. Performed at: =G - [facility] [id number] Pen Tester: Nina Julien MD, Phone: [phone] Performed at: - [facility], [place] [id number] Pen Tester: Nina Julien MD, Phone: [phone] IGP, APTIMA HPV, RFX 16/18,45 Note . [facility] Comment on above: TESTS RESULT FLAG UN ITS REF RANGE LAB DIAGNOSIS: 02 NEGATIVE FOR INTRAEPITHELIAL LESION OR MALIGNANCY. THIS SPECIMEN WAS RESCREENED PART OF OUR PERSONAL LINES ADVISOR PROGRAM. Specimen adequacy: 02 Satisfactory for evaluation. Endocervical and/or squamous metaplastic cells (endocervical component) are present. Performed by: Fazal Collins, Wrap Yarn Sorter (ASC) QC reviewed by: Fazal Coyne, Wrap Yarn Sorter (ASC) . 02 Note: Note 02 The Pap [...] <-Panic Low,>-Panic High,A-Abnormal,AA-Critical Abnormal Performed at: [address] [id number] Nina Julien MD, SWAB-SPATULA CERVIX [facility] Pre-Certification Formon Pre-Certification Form [id number] #1.00CD:127 [facility] Pre-Certification Formon Pre-Certification Form [id number] #1.00CD:127 [facility] Pre-Certification Formon Pre-Certification Form [id number] #1.00CD:127 [facility] Pre-Certification Formon Pre-Certification Form [id number] #1.00CD:127 [facility] Medicine Video Visit - Telehealthon 10-20-2022 Family Medicine Video Visit - Telehealth HPI Staff Julissa is a 31 year old [...] Ángel Causey to record this visit. MEERA presidential support specialist and provider reviewed before signing. MEERA: [...] 1 t (more content not included)... Normal [facility] Comment on above: Result Comment: Elec tronically Signed By: WASHINGTON CONNER, DONA Nuñez\.br\Date and Time Signed: 10/19/22 22:08 EST [facility] 10-10-2022 Forms [id number] #1.00CD:127 Normal [facility] Ambulatory Visit Summaryon 1 12-04-2021 Ambulatory [...] as needed for for wheezing Pickup at [facility][id number] Unchanged buPROPion (Wellbutrin XL 150 mg/ 24 [...] physician if questions or concerns [id number] [address] [place], [place] [phone] Allergies metFORMIN (Rhabdomyolysis) Adipex-P (Shortness of breath, [...] in adult PCOS - Polycystic ovarian syndrome [facility] Patient Educationon 10-03-20 Patient Education Gastroenterology Nausea [...] added (diluted fruit juice). ? Eat bland, jdhd-rb-euulic foods in small amounts as you are able. These foods include bananas, applesauce, rice, lean meats, toast, and crackers. ? Avoid fluids that contain a lot of sugar or caffeine, such as energy drinks, sports drinks, and soda. ? Avoid alcohol. ? Avoid spicy or fatty foods. General instructions ? Take nxoo-knk-ramqwbg and prescription medicines only as told by your health care provider. ? Drink enough fluid to keep your urine pale yellow. ? Wash your hands often using soap and water. If soap and water are not available, use hand hardener helper. ? Make sure that all people in [...] and drinking to prevent dehydration. ? Take zbms-ves-pfmwcqp and prescription medicines only as told by [...] 10/09/2006 Document Revised: 01/31/2020 Document Reviewed: 03/19/2019 [employer] Patient Education ? 2020 [employer]. Obstetrics and Gynecology Dysmenorrhea Dysmenorrhea refers to [...] a dis (more content not included)... Normal [facility] Progress Note-Physicianon Progress Note-Physician Patient: JULISSA [...] BMI 32.0-32.9 kg/sq m / SNOMED CT 988748575 / Confirmed Allergies / SNOMED CT 4022361966 / Confirmed Anxiety / SNOMED CT 05713184 / Confirmed Body mass index 32.0-32.9, adult / SNOMED CT 816854620 / Confirmed Cold sore / SNOMED CT 2700787 / Confirmed Depression / SNOMED CT 12515395 / Confirmed Encounter for weight management / SNOMED CT 179901218 / Confirmed High risk medication use / SNOMED CT 933178287 / Confirmed History of appendectomy / SNOMED CT 0245051670 / Confirmed Hives / SNOMED CT 16907804 / Confirmed Hyperlipidemia / SNOMED CT 29683141 / Confirmed Hypersensitivity / SNOMED CT 3928894594 / Confirmed Obesity / SNOMED CT 6741110365 / Confirmed PCOS (polycystic ovarian syndrome) / SNOMED CT 592037048 / Confirmed Postoperative visit / SNOMED CT 361406993 / Confirmed Prediabetes / SNOMED CT 7371582309 / Confirmed 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 Vitamin D deficiency / SNOMED CT 91249168 / Confirmed Resolved: Adult BMI 30.0-30.9 kg/sq m / SNOMED CT 912097059 Resolved: Adult BMI 31.0-31.9 kg/sq m / SNOMED CT 149248490 Resolved: Adult BMI 33.0-33.9 kg/sq m / SNOMED CT 473178052 Resolved: Adult BMI 34.0-34.9 kg/sq m / SNOMED CT 949513194 Resolved: Body mass index 34.0-34.9, adult / SNOMED CT 230220060 Resolved: Class 1 obesity with body mass index (BMI) of 30.0 to 30.9 in adult / SNOMED CT 6384425965 Resolved: Class 1 obesity with body mass index (BMI) of 31.0 to 31.9 in adult / SNOMED CT 4268238540 Resolved: Class 1 obesity with body mass index (BMI) of 32.0 to 32.9 in adult / SNOMED CT 3788029410 Resolved: Class 1 obesity with body mass index (BMI) of 33.0 to 33.9 in adult / SNOMED CT 2863399780 Resolved: PCOS - Polycystic ovarian syndrome / SNOMED CT 775926772 Canceled: Adult BMI 37.0-37.9 kg/sq m / SNOMED CT 751871496 Physical Examination Vital Signs 05/12/2022 12:45 EDT [...] Discharge: Cond (more content not included)... Normal [facility] Comment on above: Result Comment: Elec tronically Signed By: Wiliam Diaz Jr., DO\.aditya\Date and Time Signed: 06/06/22 16:49 EDT COVID-19 ([facility]on 06-02-2022 SARS-CoV-2 (COVID-19) RNA DANA+probe Ql (Resp) Detected Abnormal Not Detected [facility] Comment on above: Result Comment: This test result should be correlated with clinical presentations and medical history by a healthcare provider to determine its clinical significance. This assay was performed by a reverse transcriptase real-time polymerase chain reaction (rt PCR) method on the [employer] system. This test has been authorized only [...] or revoked sooner. Performed By: #### 2 [id number] ####[facility] [address] [place] [address] SARS-CoV-2 (COVID-19) RNA DANA+probe Ql (Unsp spec) Pass Normal Pass [facility] Comment on above: Performed By: #### 2 [id number] ####[facility] [address] [place] [address] Specimen source Nom (Unsp spec) Nasal Normal [facility] Comment on above: Performed By: #### 2 [id number] ####[facility] [address] [place] [address] Coding Summary.on 06-02-2022 Coding Summary. CD:[id number] Gh0bWw+PGhlYWQ+PE1FV LFiI55vtOFnwZ2PY2bTD J2XWBCJXQSCSC6LIC4ma YV0NEwsJ4HipzXe IjfqiIGgKN39SFw8HGK0 uVtrXMlgeM8piANnB9c0 KiWwSN18jW35KNdzGQSx PlZ2YoVvqdwzcAEl M1rcYlTmtHJkSrj+PHRh YmxlIHdpZHRoPScxMDAl LkDreRvtVH9qQh6gAQSq LWNvbGxhcHNlOiBj j8gvPFBhWImhBY5bsNvh Z9PocSA9AUMxh8z5Ox54 dHI+ENNkYOO4nZyuOQfz t343TvUmf8czRTQ7 kZDvGGrtPDP4Y59gh8I0 LXQfOJOkVNJ4oXT4cC2y gYqenowbI0XxlAIeWnD2 NBN4oOCywV4gmTlv ocvjhD6nYjk+A85FAF4V RQVIYV5FWgl6Y7MhJnpw dHI+QD40IVViXZ57mVRt mWCiq3pvfMy3HkOc KEMhSRE0hAnmTLdpb7Aq TTBaC45fsAVrp9T2GALd rFnsbLFhHrHjnHD4oL0e XPvkamumr5rtpqox Liwcc9hvpg93uJ21R40y NLclCTHmKIT5EGZyVLEx uDfwyy2hhJ8kFf3+IDxj p7ber0edfPz5SbJx BKWhofPsnKsaQRO4u2Wl Fs29C0UzyIlsu2DdYuq2 jq06tJTpf4K1xZT4JIog LLWsxA0bWFboJhS9 PMNvKzHypR06aSCcSWds Dp0lrZpufVwaWH3vKEKf ihonEGBshY6kHLYwyPYh jCcbVU7yFIEqokfn g501PqWiZWP3MHBiuZZc R3PqpS9vJrYmSBPvYXYa E0NpnOScUTvkE299CGev MuZ7ZXQmrvYjE1Nv CKLwvXalVpB5h1U1Gm9P w4XrnmxdXCA8RFvnWVE6 RaWyXlSjZfL0S7TsKyi9 DPPvuJdvNF7mC4Ae LTDlmzqrhuohfJK6KQDe MDNkqU60sWUdCJmvWx4e o6O1g247KDPnYWNzkC47 Ll5mhAbeGVWpgNEU cU3oybnbh2sgkfdeRcIq DSQqBWs0NBz4SHUpwUrk EwUlEQP8FyT6BRK5mFHh fZ9ziTzeecvmiS3l Oyc+S18gqK9tMEB8CIE2 ouzuNDXdsqXqIK98CK15 P2NgLenavITtpVT+PGRp uiHlwWujWV5mFgQi s9tvc5KrFFbqA5GyFTDk BGonBcc7GDApTHA1kZS2 dR5iATYmOSitz4V1zFH9 A9FayoTsgs8ad4xv CEPnTJyeF24ewPEqw1H0 VLFmhHJ4FCLbvGfuVoAk fW26Fmu+BHLknKjie1Ts Udcrt5khu6whyOo4 IjMwJSIgdmFsaWduPSJ0 x0ZuOw24U23rDHpoVVXf ICGoGQWlXOZlhDihqp8n hY2cZm0+PGNvbCB3 qHW3gR2tZQSpYyV4JEfv J045BjCmvVDuCuegv7jt j3ydkYq8FsNsAWKmuhUe jAwyWCP8r5RqGz45 I54xENtnEYQfNSRgNFPd PYUppVfofq0bwJ5wXp1+ DL5dc4ejcw93oR97yRP+ RDMcVIF4fHokQUsj LXLbmA5zBYycCvT2VJHb KdScrN32fHUcFMfdYz4l dAqarGsjTB7rZTFjusyr g921DeHbp5gaRRIe zIYjGEghUHA2K30vu5O1 XOLmWUNbFVL7cIE9cV8c bGlnbjogbGVmdDsgdmVy xIxlZNnsOZlmA872 IHRvcDsnPlBhdGllbnQg DuOgMGy6P2DcMyv7FVWb sKxgWP0ncFYkRKlpLt6j pAqzbItyXN0qHWYz vhtyc803LvVtl9ewTMFf dHCyHNixSRC3G35rk1M2 ZZTkUVTgRVZ0gJC2nS9e bGlnbjogbGVmdDsg leHopHdyOHzkDLakD163 IHRvcDsnPkJpcnRoIERh hIV8AB45ZN97rZPvb8N9 uMH0L0WqQUIsiwck dooujJS2ONBnNJXhxQ83 Ms1lzRstVw1iROBvYMO5 SOLraEOuD4EtkV2vGmCb EJTvCPKmC5RvgNWo IXteZ014XXatBuF0GNLy edArC3QnOZWgyThqCcP7 e5R3Sq3CI9M9CE68MG49 pNEwg5M8tGL7E6Ep IXYoiaqngdbahWM6MXLs AYDntZ96Wk8mnEinTc4k HROoEZC3PJBlyRZcS0Zc cF7pDqBsWJLxOUYb J2MmoKUqQElhD914YUvu EaW0QDNtykNiR2XvYTCi jFmvJpN3v2Q0Nr9POXt3 AE55DL22cSCny8W1 rBU5Z8IaNTCjiatmnhnf bOA1RFNxAGVtwV24Zz0v jJyhOe2eHBPtSID8SUXy aELwJ0IeoR4tZaFp IJFoYBPhZ9XtiTOiMFph F496JDlzQtQ4MFRkzgPm L1SxOEHlyRmdSzJ2s3M0 Ro0WVTGxUO80RTM6 cUL7LS30XN17N6IiGawa dGFibGU+PHRhYmxlIHdp ZHRoPScxMDAlJyBzdHls SN3sJw3zSZTlIPNv xPpvsCJeQeAnf1ppWBNb MWjiSP5fxAjjW7GpsET5 THXmi7p2Sm63T12qC6Qv dXA+RQPvcLM8gJN2 zK3vDhZiZqL4OTvbM104 WoDnuYPiKhcjn8scu5rc nPa7CcO0CPVwocOtrIbh QKO1t2RxKp20U09e IHdpZHRoPSIxNSUiIHZh eYynue2aiT1oYr2+PGNv mZV9tRZ5yG3yGsWyXyJ4 QFpgV389UbJnwJRj Odvkh0pwr0igaNm2VeHc PHIozmKknInpWZB0e2Os Rq59O9NdnFbyn0LfIfk3 fw29wFDmr6P5qEJ2 W1CqBIKoirxjgSUbaJwp KA0iRLZyepwvUKSctC8q RQTdG0r9ArSaMwE0NWnh T6CyfcD1VQNkeLAc AHzuOWH9J84hp5E1CWCn XTLwECW7sXP9dL0xcBhq bjogbGVmdDsgdmVydGlj NOprMHymA170WINs bTrcTACkqB6kQIPcbIJi zVlaYF1aDCRiwxnqScjC A13DYDKWD8oWTEjdEkjd dGQ+TVThXEK6yBqz JTgkWKJmxC8bDIVrL8c5 IsCsNoI6YBavD0HnQPGd crcpFh76xX5yUjQaWrL7 JAwaD7KcvtP0MSJm nVLjLCtmLIT3I25yx6K6 LLWwOZKxCTF4aWQ1oX8o bGlnbjogbGVmdDsgdmVy oCquDSasCYxeR396 IHRvcDsnPjAxLzIzLzE5 OOy2H4IdHcc8NXImkDmp TZ6hqXZwAQzeIa0fjFku rUzmLD2fMRCjuoql HYAtaL4rKKTbiNSstRyf QU4lJXPiqxtdp571BbMo UEP9VHZwuRPfN9RgjR3x SuKyTYLpOHObG7Xt yYSfJRsvL217LTbgUzM8 GBWjcdUgO3CyXAKxnQef YwU1a4D9Yf3pBjEEKEQg czwvdGQ+PHRkIHN0 gCqlBLvoYRGbyR9sRAEw W5k4WqObBxW1MChnA1Dt EFGaceqmCh96iF8tXrUt ZgK5PDshE2GozqQ4 VMMjeHGaHDzgTLS8T68t k5Q8BNRiQWUjGKV4xIO9 wD4yhXhyzoifcSDviSgj dmVydGljYWwtYWxp H442CSMjsZmuExCiaJCb ZTwvdGQ+YXWxOEZ5vAsg OIpvEBTolM3aVABvH9m4 PvKmAtQ8CFobL5Ys ADSympltMs57eS5bBpGo HqX1JSyzH8UtkcN6SLMh iYCzRIntYIO6M81eu7K6 SZFlDYYbQIJ5sBQ0 nH1gwPwxqntplENpvCyp hpNznMqkMAatNPnrK220 BLInnYsrDcXxE4Kdbszk ZzwvdGQ+OF87qc76 G3YiArdySdx4FYNpXEU2 cYF9kN4tHSInBJrnf0Z1 dAF1P3QwqxXyyh1vr8ug XPNyZHltK07uvFFz i4R6JXRbjKP1MVFrxZrc FxYkuG40Xsm+PGNvbGdy t5NuOqdzd6xxc0vbpTt6 IjMwJSIgdmFsaWdu XBO8z6AxXt23G95mKVbv ZHRoPSIzMCUiIHZhbGln nj2vzY0pBo6+PGNvbCB3 sFH7xE8vHxNmXgK9 EEbdO060PhGgjRXjJnzn w3fxh2llxGo1NgTtFJAc vuEsfJshELH4k4CkZp25 S6PfkDfwf6YsEtn5 qz74mJBem8R8sDJ1X6Ug KZEnsxxrdNLsuRpbYC5z PJWkrrhwRLOymD1vBBDl U1g4OzSqZoI5BLgc E2OmsnY0HXOmnTHfCZNh bNFQbE6xfmivn8ijznhb JrFkYFKbGRo4RTw1LRQv vVmxLiIrCIE5AuG2 ZZW9fCUhpR7iePogvsif sN6jMti+ISn4p4uoaKGq EW6juQN5BO99LB31lIZv k7X8lIE8C4FmWUBk gywvlrdquGR9VRQoQMUk uN78Yn9tcRqbHb3jJPNe XJA5BZLeyKKuS0OvsC7f ZjNuGHGoSXWdA3Ox dKWcLRafL674UWtiMhY6 DECykuGpL5EcIGSgfXgd MjX2o2V6Ym6XAO34ZR20 EP01mTDvt9P6mMS2 J9DoEHHbgwtgwglglOO4 YMHdMNUpmH76Ac6jqOwh Vd7jMMNwGJX2VSYwyEEr M7ZqjB0lYbIjAQUf ZNAeS7VpbYKxBRucB057 COayCwU5ICTfaoFiX0Qh ZIBbbVgeIhZ9b2P9Jh9I Ef26DV59SV79mVOo h9X8mPT9B4LsRMRibqdq ftybaDZ5QNXbWQMecJ80 Iw9joPlcQy0tKWJzFLT4 EMNxaUJfX9MdjJ8u WdXiMGMnFCMjE5YzhCBe AFmxB751HXacZbN3GPEl nsXsK1VkIQKjgTpxGwD5 e4W3Qm8WKFjnoal6 R3JfJuvetYP+UI54NZYc WJ99nGHipFQby5vmyAd1 BeZpWTKoZVG7qTvaFMxi x1HxPMHgJ80tpYPk c2U6 (more content not included)... Normal [facility] COVID-19 [place] 06-01-2022 ADMITTED TO INTENSIVE CARE UNIT FOR CONDITION OF INTEREST:FIND:PT: Unknown Normal [facility] Comment on above: Performed By: #### 2 [id number] ####[place] [address] EMPLOYED IN A HEALTHCARE SETTING:FIND:PT: Unknown Normal [facility] Comment on above: Performed By: #### 2 [id number] ####[place] [address] FIRST TEST FOR CONDITION OF INTEREST:FIND:PT: Unknown Normal [facility] Comment on above: Performed By: #### 2 [id number] ####[place] [address] HAS SYMPTOMS RELATED TO CONDITION OF INTEREST:FIND:PT: Unknown Normal [facility] Comment on above: Performed By: #### 2 [id number] ####[place] [address] HOSPITALIZED FOR CONDITION OF INTEREST:FIND:PT: Unknown Normal [facility] Comment on above: Performed By: #### 2 [id number] ####[place] [address] STATUS:FIND:PT: Unknown Normal [facility] Comment on above: Performed By: #### 2 [id number] ####[place] [address] RESIDES IN A CONGREGATE CARE SETTING:FIND:PT: Unknown Normal [facility] Comment on above: Performed By: #### 2 [id number] ####[facility] [address] [facility] Consent for Treatmenton 05-23 Consent for Treatment [id number]# 1.00CD:127 Normal [facility] Formson 06-01-2022 Forms [id number] #1.00CD:127 Normal [facility] IntraOperative Documentson 0 05-19-2022 IntraOperative Documents [id number] 1#1.00CD:127 Normal [facility] Family Medicine Office/Clini c Noteon 05-17-2022 Family Medicine Office/Clinic Note Chief Complaint Patient presents for [facility] paperwork for emergency Appendectomy, last . History of Present Illness Presents today for follow up of emergency appendectomy. Was taking ozempic and states that is what caused the appendicitis Surgery 05-12-22 Leave started 05-12-22 Needs to renew her [facility] paperwork Doing well - still a [...] of digestive tract) healing nicely will obtain [facility] paperwork and get it to our [...] q12hr, # 20 cap(s), Refills(s) 0, Pharmacy: [id number], 170, cm, 05/17/22 11:42:00 EDT, Height/Length Dosing, 95.1, kg, 05/17/22 11:42:00 EDT, Weight Dosing Follow-up With When Contact Information Helene HAMILTON CNP Only if needed [address] [address]- Additional Instructions: Patient Education BMI [...] metFORMIN (Rhabdomyolysi (more content not included)... Normal [facility] Comment on above: Result Comment: Elec tronically Signed By: Helene HAMILTON CNP\Date and Time Signed: 05/17/22 12:10 EDT Main OR Intraoperative Recor don 05-17-2022 Main OR Intraoperative Record IntraOp Document Type FT Summary Primary Physician: Raman Russell DO Finalized Date/Time: 05/17/22 13:18:41 Pt. Name: SEDAJULISSAO.B./Sex: 1990 Female Med Rec #: [id number] Physician: William Yoder DO Financial #: [id number] Pt. Type: E Room/Bed: [place] [address] Admit/Disch: 05/11/22 22:40:20 - 05/12/22 15:40:00 Institution: [...] Role Performed Anesthesiologist of Surgeon - Primary MOLDING MANAGER/SA Record Time In 05/12/22 10:31:00 05/12/22 10:31:00 05/12/22 10:31:00 Time Out 05/12/22 11:56:00 05/12/22 11:44:00 05/12/22 11:56:00 Procedure APPENDECTOMY APPENDECTOMY APPENDECTOMY LAPAROSCOPIC(.) LAPAROSCOPIC(.) LAPAROSCOPIC(.) Comments Last Modified By: Caitlin Harris RN, RN, Caitlin Em CST, Suha Charlton 05/12/22 11:56:57 05/12/22 11:56:57 05/17/22 13:15:43 Entry 4 Entry 5 Case Attendee Kimberly LOPEZ, Cecilia Barr Role Performed Protection Consultant - Primary Scrub - Primary Time In [...] Out Wiliam Diaz Jr., DO Given Participants GDrew DO, William Taylor, Willson CST, Juan Antonio Mario, Kimberly LOPEZ, [...] and tissue Entry 1 Skin Integrity Intact, [place], Warm, and Skin Abnormality No Dry Outcomes [...] APPENDECTOMY Body (more content not included)... Normal [facility] Patient Educationon 05-17-20 Patient Education Dermatology [...] and water are not available, use hand hardener helper. ? Change your dressing as told by [...] even if your condition improves. ? Take mzjx-civ-sfwispo and prescription medicines only as told by [...] 04/28/2006 Document Revised: 10/11/2019 Document Reviewed: 04/26/2017 [employer] Patient Education ? 2020 [employer]. Nutrition BMI for Adults Body mass index [...] height. This can be done either in [place] ([place] or metric measurements. Note that charts are available to help you find your BMI quickly and easily without having to do these calculations yourself. To calculate your BMI in [place] ([place] measurements, your health care provider will: 1. Measure your weight in pounds (lb). 2. Multiply the number of pounds by 703. ? For example, for a person who weighs 180 lb, multiply that number by 703, which equals (more content not included)... Normal [facility] Coding Summary.on 05-14-2022 Coding Summary. CD:[id number] Gh0bWw+PGhlYWQ+PE1FV VUpD00iqOXxeR7HV4kQU S3MMIGUEGRWQY0ERZ2uw XF2VIvuZ5DghcJm IcdwxSGhLO08FPo2KJO3 xZudOAzlhG5hvCShI4v2 YuFwPI00oH38DDxdOCTt QeR0KrGuwlwoyYYx X0boYfUvbRIaHyp+PHRh YmxlIHdpZHRoPScxMDAl UeGviVjzYO5dAz7tNJPt LWNvbGxhcHNlOiBj n5ukWTAoRYojTR5mnOit L2IayGT5ISNel5i2Ht01 dHI+TZKcVIX2nAouVJnq f772TwDuc2dbWKD9 dPFhTZgfHAJ5G95lq9F4 DBKsEYWhWLV8xGS4uW0k xXmbptnlW9WvzEQlXrY7 SOH9dDKkzH8ksFch pzchyS8gZxk+Z17DFT8J ASEPNL1XKzu8U0XzUtux dHI+WO89UNTrRV06mRVe nCEkf7fckPd1TzPl NSQbGGC5pXlePWkti3Nc EZHlP32nsPDdw7E8IGVi lJcxuSEbFiKhzRG5yJ7y WCnjcugzp9vgnrgv Euwym0byby28yP46T96v KUgmQNAgGYA8YWTtKAKs xCyvjo6xdS6jNd9+IDxj f9wrv6hczYp9EdWk MGHxypMgcFnxPHC6f5Aa Ed18G6ZqpUwss8IgMbd7 qq87iWVhv7G3rVN7IDow BEFjmV0yCYfkVaT1 UMTwVwUirY57nXJeOTur Pt5yvAcklKmaFZ1dMKQh ivtkTBVawD9wKLWlaTXu cBhfTX0yBIMitfdm w706WrOsTLU2OTOnrRQe P3XrxR7jUqSfIMNxHUAn O2GvvXYvBLscP949VApa HwZ2JINashIzW7Ly HXEicXqyQjR2g7K0Qz2A e2PcaxwfGEP0FOhxDVY4 UbGqBhIfJsC4P5FbHlx1 ROZxtZsfXC8gO7Nx FEXfjdfcdamuxPS6EAAt GKGclE96pLZcFWziXj2d a7X8u614UHKtSTUmqA98 Th4cmDlbKGYhsEOS oC9pzcliz2jpkmweAuLa QTTcPWf1BZs0ZCCehHcy LiDoQQS7OdP9AKB8iVWk xP1cwZepndwlbE9y Oyc+N70ekX0xVTR1YGD2 aeqsSITgcqHiZI54WI38 F9SxOftgwCIgrHK+PGRp njNxkFlwZN5yDsBy d7dxp1JmTOusF7KrNNBr BNeuIwj5NQYyMMZ1hJY9 mW9eUOJbLJsee1J2qXM6 P4BudnJzyd2gu4ab NZFsODltE15gtFGje2P2 XWXlvFZ2VQUjkAttKdDs tT69Njk+ISWgvChzr0Rx Aylfs9cpw4tfeEf5 IjMwJSIgdmFsaWduPSJ0 s8KoWm05L98zDXddQIGc LWLzDFIhXBLalVmwjy0b wS1tXe5+PGNvbCB3 qXS5rJ3gOZBkPtE2EDjd T343EfYggYUmTmyqw7xp q0fimFp5TwTgRWYuhqGv eSzgJAI2k3AjGa04 X00xGCopJVJlLSQvCMOc VGPopMlbsq5yfL8kYz9+ PY4we3iufq11eC53bBI+ BXRqRBC7sOvwXTth LJBclG8aIQluZrC6VNEg VtGioC67zRLuWZiaCy7y qHbahLjpZT6sINCtxubf z004ApFfl6tdWZGn zTRpQIevWKA2E88hk9Q2 DRWyLKLqZVI7cSD3yR1a bGlnbjogbGVmdDsgdmVy kMgcXHeoFZtyT449 IHRvcDsnPlBhdGllbnQg KrZzSGd1L8LcIes8SZBg eXjnRN6ksGRcYGlxKy6v uDmcsPhjXB9aYSNj swexv178ElSlv3vwJJFn bEQeDEzcFAV0L74sm0F7 YRGeYWLyPRB5dVG1hK1t bGlnbjogbGVmdDsg wsSzlWrsQOgiUTqgZ864 IHRvcDsnPkJpcnRoIERh tUB1TA09RQ13yMJpg5B2 jYA0W5AgJWGwoixi eczzmCC9ALHcYSBymV58 Kp9vdCezWo5nXFJySKS7 MPQnwHIvZ5LsxS0xHpQe QKRyGPTmG5EarAKu RWqcK728IMaxTuH0RVRm ufVsA2GqOEBjqFljUyN4 n1H5Ik3RC2O6LQ22TQ79 mTYuh2P6fRL3Q8Uv EDIhfjlednmckII9TAPw JGXslY36Pp6yiFtvQk3h UTBsPDP8OGXvlIPmU5Ud xR1aSlJiDEOaXYBt C7QldXOsNJtwN001KEhx ObI2RWKvdyVfD5ZhTZPd xRfaAvU7q8P5Yw2XNIb3 VG95UU75tHLbn0V7 mOQ5O4WgLGLkjsemehtl dBH2VPCjLCQyyO53Xa1j eGanJo6tCTHvVBC0NIRx jHUfS8YwqD6fViZu MGKzUMAeA7GojXHwLZtn J329UVyzUkB4DNBugaSt Y4RtVCCseEoaQuS8v0V3 Zp2CJUUwQQ11YLG9 zRL3WG54ER09W7IsEkdd dGFibGU+PHRhYmxlIHdp ZHRoPScxMDAlJyBzdHls RO2cDu3wNZGoHFTq wJezwKPfGtGym9sbKMAf QDspDW8agLmgH1SjjSW1 ZSVlk2v2Wp10C63fD2Gq dXA+DOXisMB1jQY0 aO5vLyOzIjY5JImbQ636 HpKdjPDqCsffw9uam1is mYp4VvP4CGVcstEltOaq FAO1b6TgAz52Y14s IHdpZHRoPSIxNSUiIHZh aOvfnr6vfD1vKo8+PGNv pGU9mUO9bC8qWjKiYuY4 YWpiH495NtZkrMRs Ndxqo2bfa8iepDt5YfSg MWAjccBliEphVVU5c7Ea Du96S4GwnSmls7EfWxi7 up37qLVpd2E4jVX3 J4XrTCYywhfhrUJgcWld EA4kSVNkzybaMBGeiC3r UWCkD6z6XrHpDgD4RCjy M4VkonC7QGUeaKKy GJexTFQ0M74dw2Z1MQCa XJBdLFH6lBM8oK6cgWmv bjogbGVmdDsgdmVydGlj ZQslCVmgY231MINx cVvwLRGosS6kBUYnwPIv zWfvDP7gCBSlmbhhSuwK M10QACXQP4sLBPapMzqb dGQ+LUTcAYT3uShe BNnfGHXqyI4cJAQzW4g7 RyObYjQ3TRfeM0DgNIEu mhemQt12zP2fPsKpTbR6 XPnsV2KrjfP3USRh rUCbODtwTZM7W81hu6C3 LYBkQWByGIH3dSM1jM4k bGlnbjogbGVmdDsgdmVy yLgdKXmfMUiaB965 IHRvcDsnPjAxLzIzLzE5 PIo5D2JeFcj5JQHztNbt AD8joLHnKCpsFq1qvRnz zDvxXW1jURAlqlac FIPfkK8dXJPrpOMjyKfh XM9bPQOooxaep846KcSz IMC2MKMviJRnD4HejT7l PrKfEMCpTQGgT5Sv qFNmFJjqQ413EBisBrF4 ODYlppKnJ2HdWHRvrDbu CpE7b0R8Rn3mNqCCZHWt czwvdGQ+PHRkIHN0 oPowGFmmVMEguO2aQPVy W4e7WoUkJrB3CCqdS6Zu HSWxoumhFq04pM5gCuMw SnY4ITkoP1HpjiJ7 LBHmyDGjDRrlXKW3U59v i1C9XCYbWSCgBEA1qDF3 vK5sqDouoswmaBRmcNrd dmVydGljYWwtYWxp Q150GIYprStvYgZloSMm ZTwvdGQ+FMPcNTX4pYgb XUhcMYDwxN8aQJMkE5s7 UhYhVhX7SOtuG0Ke MIVgostdNk69oR8gSfYb DdR3UYobW4NxqwM1WLXw iIVnBFliZLU2N98da6V9 VRIgWUJnLLC5yWZ2 hL3abLhdfxggdQNknDub yqBmwButPJgcZPceV593 LSEofVokVmRtGVCyTT0o eTwvdGQ+AN62ss19 K9WkDarmBtj8KHHsOXZ6 mVJ6aY4cEWWnZNfas8B1 eFD7S9XufxTcds9up9bk PSKrDNkpV03pcNCu m6G6YOVhfQF2YJKjuIjo KdRskZ91Thm+PGNvbGdy o6JfZjxym0utg1mguRa7 IjMwJSIgdmFsaWdu WBL5l8UwBl94N13tCSna ZHRoPSIzMCUiIHZhbGln nx4unG3qIx2+PGNvbCB3 zJR8mZ6mYdAaZwO7 PDjmV311LjQqvUFeBrrz z8ikj3iyyGe6SnRrKMPg xrMboJwiVEL0m4UzLf04 M3IozFcnh5KrUnd4 gp42cIWjh5O5wKA6W6Ic NJZcureqpAZbhIezWC2k KRIudqewFHXtwH6sLRUv L2r2ViJpMjC9WXez A4TvtmA5AQXstGLsCXUi zZSIpR6iyhjmx9bjruai AqHsFUSrTTt6FLg7OXFc mSkuVtHwKMB1LjS4 YSP1aEZucU1mfWladpla tU0tJpy+ZMk4x3ctrDCg PU7skWA5SC10SZ82uYBz t0N1jDG6Z0AlHXGb gfgphzhpiTX1LCTiRZLm kB29Dt9lvRdoYa2lMFOn YPY0DDMkaLJiX3LhyS8p JsPoNLIxFAGzD9If sSMfJCrbN576DZmsOiQ8 APEbaqHoN8XjLYJexUqx VjR1v3F8Be2TGP07CF51 MG95uDNet6Q6jIZ7 P3BnGFDtwhsbfvamcJK4 ADQyWSIeiT87Fu8ziUyc Dc8eILHcQMM8ANZpbSNe H7HspY6jIeDuVLIj AHIgA9AckOXoNSotS134 BXmrIpH6BFMydoVjL1Ui ENSgdKqsRiO0n5T2Pc8O Bf29AR10LZ03iACl r8T5pTZ4Q5QqQAOmadio ruzzsLC5SKKqWUZybL29 Ml5enMbcMo2eFQLwJVD6 BQRigZPpU7IipX5d UnWhSTTqUMVhT1JumSOs AXllV319DDwkNiI5AXFt bdKbA2PsPNCirGiaQsO6 n0J9Fk5EDNbrhhf3 P6MvAbqhuHC+OG05ALQj IX17aBRqfOYjm5zsqIq9 SoNpMLCsPVP2rHhgLTxc o0LhOTMvT16ooQYv c2U6 (more content not included)... Normal [facility] Consent for Anesthesiaon Consent for Anesthesia [id number] 2#1.00CD:127 Normal [facility] Discharge Instructionson Discharge Instructions [id number] 6#1.00CD:127 Normal [facility] IntraOperative Documentson 0 05-13-2022 IntraOperative Documents [id number] 5#1.00CD:127 Normal [facility] ABO/Rhon 05-12-2022 ABO/Rh Positive Invalid Interpretation Code [facility] Comment on above: Performed By: #### 2 516757, [id number], 27003206, 55394138 ####[facility] [address] [place] [address] ABO/Rh History Checkon 05-12 ABO/Rh History Check Type verified by second s Normal [facility] Comment on above: Performed By: #### 2 705513, 01433433, 24742141, 97411311 ####[facility] [address] [place] [address] ABO/Rh Retypeon 05-12-2022 ABO/Rh Retype Interp Positive Invalid Interpretation Code [facility] Comment on above: Performed By: #### 2 124544, 55581710, 0514311, 08279448, 5764976, 4029698, 5113115 ####[facility] [address] [place] [address] ABSCon 05-12-2022 ABSC Gel Interp Negative Normal [facility] Comment on above: Performed By: #### 2 430977, 90407915, 97256084, 26853474 ####[facility] [address] [place] [address] Auto Diffon 05-12-2022 Basophils/100 WBC (Bld) 0.4 % Normal 0.0-2.0 [facility] Comment on above: Order Comment: Order Added by Discern Expert. Performed By: #### 2 787767, 55319447, 2139696, 52763112, 6764642, 6733075, 7809221 ####[address] [place] [address] Basophils/Leukocytes Auto (Bld) [Pure # fraction] 0.1 E9/L Normal 0.0-0.2 [facility] Comment on above: Order Comment: Order Added by Discern Expert. Performed By: #### 2 421608, 20097084, 6650949, 01294381, 8248621, 6011470, 1145390 ####[address] [place] [address] Eosinophils/100 WBC (Bld) 1.2 % Normal 0.0-8.0 [facility] Comment on above: Order Comment: Order Added by Discern Expert. Performed By: #### 2 750696, 20309118, 1753171, 25323830, 2502740, 8084424, 8936414 ####[address] [address] Eosinophils/Leukocyte s Auto (Bld) [Pure # fraction] 0.2 E9/L Normal 0.0-0.5 [facility] Comment on above: Order Comment: Order Added by Discern Expert. Performed By: #### 2 866115, 65742212, 7110382, 55650814, 1079326, 1110950, 6797383 ####[address] [place] [address] Lymphocytes/100 WBC (Bld) 16.5 % Normal 14.0-50.0 [facility] Comment on above: Order Comment: Order Added by Discern Expert. Performed By: #### 2 331927, 42865467, 3133510, 17626108, 4415719, 1634220, 6213221 ####[address] [place] [address] Lymphocytes/Leukocyte s Auto (Bld) [Pure # fraction] 3.2 E9/L Normal 1.0-4.0 [facility] Comment on above: Order Comment: Order Added by Discern Expert. Performed By: #### 2 317617, 58521972, 6164534, 16527602, 0691027, 3988720, 9588712 ####[address] [place] [address] Monocytes/100 WBC (Bld) 4.7 % Normal 4.0-14.0 [facility] Comment on above: Order Comment: Order Added by Discern Expert. Performed By: #### 2 430841, 15615853, 1367812, 73019999, 4747479, 6763631, 0202233 ####[address] [address] Monocytes/Leukocytes Auto (Bld) [Pure # fraction] 0.9 E9/L Normal 0.2-1.0 [facility] Comment on above: Order Comment: Order Added by Timoteo Expert. Performed By: #### 2 505910, 09711164, 2150894, 13012813, 3529402, 4169827, 6296069 ####[address] [address] Neutrophils/100 WBC (Bld) 77.2 % High 36.0-75.0 [facility] Comment on above: Order Comment: Order Added by Timoteo Expert. Performed By: #### 2 790361, 70451373, 7059629, 72217770, 9743148, 9471649, 7490398 ####[address] [place] [address] Neutrophils/Leukocyte s Auto (Bld) [Pure # fraction] 14.9 E9/L High 2.0-7.5 [facility] Comment on above: Order Comment: Order Added by Timoteo Expert. Performed By: #### 2 197428, 96055179, 2749166, 82213708, 8562015, 4277941, 6171933 ####[address] [place] [address] BLOOD BANKOrdered By: Jacob guzman on 05-12-2022 ABO/Rh Interp Positive Invalid Interpretation Code [facility] Subsection ABSC Gel Interp Negative (05/12/22 5:12 AM) Normal [facility] BB Subsection BMPon 05-12-2022 Creatinine [Mass/Vol] 1.0 mg/dL Normal 0.5-1.3 [facility] Comment on above: Performed By: #### 2 784442, 42236026, 7181297, 54918536, 0649667, 8359874, 4996346 ####[facility] [address] [place] [address] Urea nitrogen [Mass/Vol] 15 mg/dL Normal 5-21 [facility] Comment on above: Performed By: #### 2 716825, 66109627, 4199695, 01995520, 5725322, 6226677, 4371498 ####[facility] [address] [place] [address] Urea nitrogen/Creatinine [Mass ratio] 15 No Units Normal 10-20 [facility] Comment on above: Performed By: #### 2 458503, 39580921, 9186703, 72032667, 2030213, 8990465, 7721965 ####[facility] [address] [place] [address] Anion gap [Moles/Vol] 16 mmol/L Normal 6-16 [facility] Comment on above: Performed By: #### 2 247834, 10685725, 4391104, 29336289, 2781215, 8714101, 5420609 ####[facility] [address] [place] [address] Calcium [Mass/Vol] 9.5 mg/dL Normal 8.9-11.1 [facility] Comment on above: Performed By: #### 2 773683, 64715922, 0223541, 83724202, 6811304, 3542311, 4448508 ####[facility] [address] [place] [address] Chloride [Moles/Vol] 102 mmol/L Normal 101-111 [facility] Comment on above: Performed By: #### 2 752890, 01049283, 6658827, 21368607, 3987959, 5277449, 0882770 ####[facility] [address] [place] [address] CO2 [Moles/Vol] 23 mmol/L Normal 21-31 [facility] Comment on above: Performed By: #### 2 751830, 25609664, 3610065, 87567777, 1056888, 6363979, 0654312 ####[facility] [address] [place] [address] Glucose [Mass/Vol] 125 mg/dL Normal 55-199 [facility] Comment on above: Result Comment: If t his glucose result represents a fasting glucose, interpretation should refer to the following reference range: 55-99 mg/dL Performed By: #### 2 212933, 24626184, 8343822, 42770383, 0366954, 9408964, 0910154 ####[facility] [address] [place] [address] Potassium [Moles/Vol] 3.8 mmol/L Normal 3.5-5.3 [facility] Comment on above: Performed By: #### 2 305652, 18293564, 8961168, 55589560, 8411242, 7359012, 2491968 ####[facility] [address] [place] [address] Sodium [Moles/Vol] 137 mmol/L Normal 135-145 [facility] Comment on above: Performed By: #### 2 996226, 75515117, 6455304, 13638835, 6960559, 3005529, 0444328 ####[facility] [address] [place] [address] Blood Bank ID#on 05-12-2022 BBID# [id number] Invalid Interpretation Code [facility] Comment on above: Performed By: #### 2 051577, 42407140, 08178523, 35561074 ####[facility] [address] [place] [address] CBC w/ Auto Diffon Erythrocyte distribution width (RBC) [Ratio] 13.2 % Normal 10.9-14.2 [facility] Comment on above: Performed By: #### 2 783506, 53868257, 0980002, 90199933, 4386295, 0587705, 7432925 ####[address] [place] [address] Hematocrit (Bld) [Volume fraction] 45.3 % Normal 34.0-46.0 [facility] Comment on above: Performed By: #### 2 061020, 47241099, 4747375, 67065599, 2315051, 0358424, 3487091 ####[address] [place] [address] Hemoglobin (Bld) [Mass/Vol] 15.6 g/dL Normal 12.0-16.0 [facility] Comment on above: Performed By: #### 2 805419, 49526183, 5626376, 83594154, 3112762, 1170007, [id number] ####[address] [address] MCH (RBC) [Entitic mass] 30.0 pg Normal 27.0-34.0 [facility] Comment on above: Performed By: #### 2 797794, 17236679, 9668507, 55501390, 0616184, 7386216, 5910199 ####[address] [place] [address] MCHC (RBC) [Mass/Vol] 34.4 g/dL Normal 31.4-36.0 [facility] Comment on above: Performed By: #### 2 561573, 36743257, 7235304, 45075197, 4697539, 5466980, 7675854 ####[address] [address] MCV (RBC) [Entitic vol] 87.2 fL Normal 80.0-100.0 [facility] Comment on above: Performed By: #### 2 231258, 85448047, 6000706, 50389262, 8430239, 3693822, 3027070 ####[facility] [address] [place] [address] Platelet mean volume (Bld) [Entitic vol] 8.9 fL Normal 6.4-10.8 [facility] Comment on above: Performed By: #### 2 572040, 17869445, 8906255, 01599614, 7963634, 1998356, 0246672 ####[address] [place] [address] Platelets (Bld) [#/Vol] 325.0 E9/L Normal 150.0-500.0 [facility] Comment on above: Performed By: #### 2 340208, 38810902, 1853556, 90061525, 6298573, 9576085, 2737865 ####[address] [place] [address] RBC (Bld) [#/Vol] 5.2 E12/L Normal 4.3-5.9 [facility] Comment on above: Performed By: #### 2 116940, 67295195, 3810079, 11791991, 0959764, 3693652, 8034170 ####[address] [place] [address] WBC corrected for nucl RBC Auto (Bld) [#/Vol] 19.3 E9/L High 4.0-11.0 [facility] Comment on above: Result Comment: Slid e reviewed by MM. Performed By: #### 2 478135, 65936242, 1492831, 53867998, 7806108, 7680597, 2584103 ####[address] [place] [address] CT Abdomen/Pelvis w/ Contras ton 05-12-2022 CT [...] ml's: 100 Rectal Contrast Given? No Normal [facility] Consent for Procedure/Surger yon 05-12-2022 Consent for Procedure/Surgery [id number] 40#1.00CD:127 Normal [facility] Consent for Procedure/Surgery [id number] #1.00CD:127 Normal [facility] Consent for Treatmenton 04-23 Consent for Treatment [id number] #1.00CD:127 Normal [facility] ED Clinical Summaryon 2021 ED Clinical Summary [place] [id number] ED Clinical Summary Person Information Name: JULISSA WEEMS [facility] Age: 31 Years : 1990 Sex: Female Language: Malian PCP: Helene HAMILTON CNP Marital Status: Visit [...] 08:58:03 Patient Care Request 05/12/2022 09:11:33 ADDRESS: [address] [place] [phone] PHYS DOC NOTES: MEDICAL INFORMATION: Prescriptions Given: [...] up: DIAGNOSIS: Abdominal pain, acute; Leukocytosis Normal [facility] ED Note-Nursingon 05-12-2022 ED Note-Nursing pt arrived to ed from home via private car with her c/o epigastric and RUQ pain that is sharp and intermittent for 2 weeks. pt states she has been nauseated and vomiting with diarrhea as well. on assessment pt is having 8/10 pain. iv access obtained. labs sent in waiting room. pt medicated as ordered Normal [facility] ED Note-Physicianon 05-12-20 ED Note-Physician Basic [...] and is negative per report from the tree and shrub technician. Patient's laboratory evaluation reveals a leukocytosis [...] BMI 33. (more content not included)... Normal [facility] Comment on above: Result Comment: Elec tronically Signed By: William Yoder DO\.br\Date and Time Signed: 05/12/22 03:03 EDT ED Patient Education Noteon 05-12-2022 ED Patient Education Note Normal [facility] ED Patient Summaryon 022 ED Patient Summary [place] [id number] Patient Discharge Instructions Person Information Name: JULISSA WEEMS Age: 31 Years Arrival Date: 05/11/2022 22:40:20 Discharge Diagnosis: Abdominal pain, acute; Leukocytosis Primary Care Physician: Helene HAMILTON CNP Provider Information Primary Provider: William Yoder DO Advanced Tag Marker:None The exam and treatment you received in the Emergency Department were for an urgent problem and are not intended as complete care. It is important that you follow up with a doctor, nurse practitioner, or physician?s assistant signal maintainer for ongoing care. If your symptoms become [...] opioids can be used to help relieve yxjeqlai-lw-fqjsdj pain and are often prescribed following a [...] be struggling with addiction, tell your health care partner and ask for guidance or call [facility]?S National Helpline at 6-781-984-RTAF. v Source: [place] Department of Health and Human Services/Center for Disease Control & Prevention [facility] Medications Given: Medication Dose (more content not included)... Normal [facility] Hep Func Panelon 05-12-2022 Albumin [Mass/Vol] 4.6 g/dL Normal 3.3-5.0 [facility] Comment on above: Performed By: #### 2 835372, 24376325, 1820850, 50438059, 1722256, 6974808, 3117543 ####[facility] [address] [place] [address] Albumin/Globulin (S) [Mass conc ratio] 1.6 Normal 1.1-2.2 [facility] Comment on above: Performed By: #### 2 398296, 97168492, 6886717, 39332611, 0998668, 2871758, 8228472 ####[facility] [address] [place] [address] ALP [Catalytic activity/Vol] 44 Int._Unit/L Normal 21-98 [facility] Comment on above: Performed By: #### 2 387181, 22169475, 7774206, 41472477, 6213322, 5252457, 4988460 ####[facility] [address] [place] [address] ALT No additional P-5'-P [Catalytic activity/Vol] 34 Int._Unit/L Normal 6-46 [facility] Comment on above: Performed By: #### 2 659945, 64205136, 5462225, 20792476, 5932230, 3508466, 6837441 ####[facility] [address] [place] [address] AST [Catalytic activity/Vol] 29 Int._Unit/L Normal 5-43 [facility] Comment on above: Performed By: #### 2 361645, 86100195, 9764568, 51587601, 1904801, 1954225, 6882079 ####[facility] [address] [place] [address] Bilirubin [Mass/Vol] 0.9 mg/dL Normal 0.0-1.1 [facility] Comment on above: Performed By: #### 2 495650, 47354294, 2085282, 07503792, 9907064, 2005251, 5342007 ####[facility] [address] [place] [address] Bilirubin.direct [Mass/Vol] 0.1 mg/dL Normal 0.1-0.4 [facility] Comment on above: Performed By: #### 2 126512, 80571861, 0248710, 90043750, 3635118, 7969868, 8254383 ####[address] [place] [address] Bilirubin.indirect [Mass or moles/Vol] 0.8 mg/dL Normal 0.1-0.9 [facility] Comment on above: Performed By: #### 2 596113, 08266792, 0176057, 43855409, 0116337, 7426555, 6817825 ####[address] [place] [address] Globulin (S) [Mass/Vol] 2.8 g/dL Normal 1.4-4.0 [facility] Comment on above: Performed By: #### 2 253382, 76926839, 8564704, 80201056, 4429834, 3168949, 4382675 ####[address] [place] [address] Protein [Mass/Vol] 7.4 g/dL Normal 6.0-7.8 [facility] Comment on above: Performed By: #### 2 684058, 08226765, 0646762, 61368917, 2316838, 7238847, 4633582 ####[facility] [address] [place] [address] Inpatient Patient Summaryon 05-12-2022 Inpatient Patient Summary [address] [address] [facility] Clinical Discharge Instructions PERSON INFORMATION Name: JULISSA WEEMS [facility]#:[id number] PHYSICIANS Admitting Physician: William Yoder DO Attending Physician: William Yoder DO PCP: Helene HAMILTON CNP Discharge Diagnosis: Abdominal pain, acute; Leukocytosis Comment: PATIENT EDUCATION INFORMATION Instructions: Post Op Patient Instructions - FT (Custom); Laparoscopic Appendectomy, Adult, Care After; Laparoscopic Appendectomy, Adult; Appendicitis, Adult Medication Leaflets: Follow up: With: Address: When: Raman Russell DO [address] [place] [phone] Comments: Call for followup appointment Type Location [...] in 12 hours. Refills: 1. Comment: Normal [facility] Lipase Levelon 05-12-2022 Lipase [Catalytic activity/Vol] 39 U/L Normal 13-58 [facility] Comment on above: Performed By: #### 2 569879, 75170275, 6335627, 79596858, 1761540, 4357533, 0296594 #### [facility] [address] [place] [address] Main OR PACU I Recordon 04-23 Main OR PACU I Record PACU Phase I Document Type FT Summary Primary Physician: Raman Russell DO Finalized Date/Time: 05/12/22 14:05:54 Pt. Name: JULISSA WEEMS/Sex: 1990 Female Med Rec #: [id number] Physician: William Yoder DO Financial #: [id number] Pt. Type: E Room/Bed: [facility]03/23 Admit/Disch: 05/11/22 22:40:20 - Institution: Case Times [...] By: TERRY CROUCH RN 05/12/22 14:05 Normal [facility] Main OR PACU II Recordon Main OR PACU II Record PACU Phase II Document Type FT Summary Primary Physician: Raman Russell DO Finalized Date/Time: 05/12/22 15:37:18 Pt. Name: JULISSA WEEMS/Sex: 1990 Female Med Rec #: [id number] Physician: William Yoder DO Financial #: [id number] Pt. Type: E Room/Bed: [place] [address] Admit/Disch: 05/11/22 22:40:20 - Institution: Case Times [...] Met? Yes Last Modified By: Jose G Cpopola RN 05/12/22 15:37:16 Post-Care Text: The patient [...] By: Jose G Coppola RN 05/12/22 15:37 [facility] Main OR Preoperative Recordo n 05-12-2022 Main OR Preoperative Record PreOp Document Type FT Summary Primary Physician: Raman Russell DO Finalized Date/Time: 05/12/22 11:07:55 Pt. Name: JULISSA WEEMS Spike Vera/Sex: 1990 Female Med Rec #: [id number] Physician: Financial #: [id number] Pt. Type: E Room/Bed: [facility] Admit/Disch: 05/11/22 22:40:20 - Institution: Case Times [...] By: Caitlin Harris RN 05/12/22 11:07 Normal [facility] Monitor Recordon 05-12-2022 Monitor Record [id number] 5#1.00CD:127 Normal [facility] Monitor Record [id number] 3#1.00CD:127 Normal [facility] Operative Reporton 2 Operative Report Indication [...] Surgeon(s) Raman Russell DO (Surgeon - Primary) Wafer Polisher None Anesthesia General Wiliam Diaz Jr., DO (Director Of Development) Estimated Blood Loss 10 cc Urine Output [...] was then closed using interrupted 0 Vicryl nyvhvu-qt-aptst suture as well as the additional 2-0 Vicryl stay sutures. Skin incision was closed with subcuticular 4-0 Monocryl suture. Patient was extubated taken to PACU in stable condition. Normal [facility] Comment on above: Result Comment: Elec tronically Signed By: Raman Russell DO\.aditya\Date and Time Signed: 05/12/22 18:56 EDT Outpatient Surgery Discharge Instructionon 05-12-2022 Outpatient Surgery Discharge Instruction [place] [id number] Patient Discharge Instructions PERSON INFORMATION Name: JULISSA [...] With: Address: When: Drew IRVIN, Raman [facility] Audie [address] [phone] Comments: Call for followup appointment Type Location Start [facility] 06/14/2022 10:40 AM 06/14/2022 11:00 AM Confirmed Pharmacy Information: You may receive a survey from Sid Caldwell asking you to rate your care experience. Your feedback is important and will help us understand what we do well and how we can improve the quality of care we provide to you, your loved ones and our community. It?s an honor to serve you. Thank you for choosing [facility] HERE ARE THE MEDICATION CHANGES THAT OCCURRED [...] these instructions at home: Medicines ? Take opkg-uru-tyuwbou and prescription medicines only as told by [...] keep your urine pale yellow. ? Take whgi-xgw-ycfahjc or prescription medicines. ? Eat foods that are high in fiber, such as beans, whole grains, and fresh fruits and vegetables. ? Limit foods that are high in fat and processed sugars, such as fried or sweet foods. Incision care ? Follow instructions from your health care provider about how to take care of your incisio (more content not included)... Normal [facility] Patient Education - Texton 0 05-12-2022 [...] these instructions at home: Medicines ? Take kpqt-pqf-jbkkrik and prescription medicines only as told by [...] keep your urine pale yellow. ? Take zfjm-fnt-lgbfayx or prescription medicines. ? Eat foods that [...] and water are not available, use hand hardener helper. ? Change your dressing as told by [...] if you (more content not included)... Normal [facility] Progress Note-Physicianon Progress Note-Physician Patient: JULISSA [...] mg, SubCutaneous, qWeek, 1 EA, Refill(s) 5, [facility] #[id number], 170, cm, 04/12/22 11:02:00 EDT, Height/Length Dosing, 96.7, kg, 04/12/22 11:02:00 EDT, Weight Dosing ProAir HFA 90 mcg/inh inhalation aerosol: 2 puff(s), Inhalation, q4hr for wheezing, 1 EA, Refill(s) 11, [facility] #[id number], 170, cm, 07/13/21 9:30:00 EDT, Height/Length Dosing, 88.5, kg, 07/13/21 9:30:00 EDT, Weight Dosing Singulair 10 mg Tab: 10 mg = 1 tab(s), Oral, qPM, # 90 tab(s), Refills(s) 3, Pharmacy: [facility], 170, cm, 04/06/21 9:19:00 EDT, Height/Length Dosing, 90, kg, 04/06/21 9:19:00 EDT, Weight Dosing Valtrex 1 g Tab: 1 gm = 1 tab(s), Oral, BID, Take one at the start of cold sore and repeat in 12 hours, # 4 tab(s), Refills(s) 1, Pharmacy: [facility], 170, cm, 11/03/20 13:01:00 EST, Height/Length Dosing, 94.7, kg, 11/03/20 13:01:00 EST, Brandon... Ventolin HFA 90 mcg/inh Aerosol: 1 puff(s), Inhalation, Once for wheezing, 6.7 gm, Refill(s) 2, [facility] #[id number], 170, cm, 07/13/21 9:30:00 EDT, Height/Length Dosing, 88.5, kg, 07/13/21 9:30:00 EDT, Weight Dosing Wellbutrin XL 150 mg/24 hours Tab-ER: 150 mg = 1 tab(s), Oral, q24hr, # 30 tab(s), Refills(s) 2, Pharmacy: [facility] #[id number], 170, cm, 03/08/22 10:25:00 EDT, Height/Length Dosing, 98.4, kg, 03/08/22 10:25:00 EDT, Weight Dosing Zofran ODT 4 mg Tab-Dis: 4 mg = 1 tab(s), Oral, q8hr, PRN Nausea/Vomiting, # 30 tab(s), Refills(s) 1, Pharmacy: [facility] #[id number], 170, cm, 04/12/22 11:02:00 EDT, Height/Length Dosing, 96.7, kg, 04/12/22 11:02:00 EDT, Weight Dosing naltrexone 50 mg oral tablet: See Instructions, 1 tablet daily, # 90 tab(s), Refills(s) 0, Pharmacy: [facility] #[id number], 170, cm, 04/12/22 11:02:00 EDT, Height/Length Dosing, 96.7, kg, 04/12/22 11:02:00 EDT, Weight Dosing spironolactone 25 mg Tab: 25 mg = 1 tab(s), Oral, BID, # 180 tab(s), Refills(s) 3, Pharmacy: [facility], 170, cm, 04/06/21 9:19:00 EDT, Height/Length Dosing, 90, kg, 04/06/21 9:19:00 EDT, Weight Dosing Documented Medications Documented Susy 24 Hour: See Instructions, 1 tab cynthia (more content not included)... Normal [facility] Comment on above: Result Comment: Elec tronically Signed By: Wiliam Diaz Jr., DO\.br\Date and Time Signed: 05/12/22 08:55 EDT RAD - Preliminary Cat Scan R eporton 05-12-2022 RAD - Preliminary Cat Scan Report [id number] 5#1.00CD:127 Normal [facility] SEROLOGYOrdered By: Riya kenney on 05-12-2022 HCG.beta subunit (U) [Moles/Vol] Negative Normal [facility] Man Sero U BetaHcg Qualon 05-12-2022 HCG.beta subunit (U) [Moles/Vol] Negative Normal [facility] Comment on above: Performed By: #### 2 3593448 #### [facility] [address] [place] [address] UA With Cult Reflexon 2021 Epithelial cells.squamous LM.HPF (Urine sed) [#/Area] 0-2 Normal 0-2 [facility] Comment on above: Performed By: #### 1 6419564 #### [facility] [address] [place] [address] [place].plasma/Lithiu m.RBC (Bld) [Mass ratio] 0-3 Normal 0-3 [facility] Comment on above: Performed By: #### 1 4300615 #### [facility] [address] [place] [address] WBC LM.HPF (Urine sed) [#/Area] 0-5 Normal 0-5 [facility] Comment on above: Performed By: #### 1 6845191 #### [facility] [address] [place] [address] Bilirubin Ql (U) Negative Normal Negative [facility] Comment on above: Performed By: #### 1 9989888 #### [facility] [address] [place] [address] Clarity (U) CLEAR Normal Clear [facility] Comment on above: Performed By: #### 1 0494826 #### [facility] [address] [place] [address] Color (U) YELLOW Normal Yellow [facility] Comment on above: Performed By: #### 1 2399568 #### [facility] [address] [place] [address] Glucose Test strip (U) [Mass/Vol] Negative Normal Negative [facility] Comment on above: Performed By: #### 1 7533379 #### [facility] [address] [place] [address] Hemoglobin Ql (U) Negative Normal Negative [facility] Comment on above: Performed By: #### 1 6060691 #### [facility] [address] [place] [address] Ketones (U) [Mass/Vol] Negative Normal Negative [facility] Comment on above: Performed By: #### 1 6761672 #### [facility] [address] [place] [address] Nitrite Ql (U) Negative Normal Negative [facility] Comment on above: Performed By: #### 1 1496809 #### [facility] [address] [place] [address] pH (U) 6.0 [pH] Invalid Interpretation Code 5.0-9.0 [facility] Comment on above: Performed By: #### 1 7064142 #### [facility] [address] [place] [address] Protein (U) [Mass/Vol] Negative Normal Negative [facility] Comment on above: Performed By: #### 1 5545926 #### [facility] [address] [place] [address] Specific gravity (U) [Rel density] 1.015 Invalid Interpretation Code 1.005-1.030 [facility] Comment on above: Performed By: #### 1 9514340 #### [facility] [address] [place] [address] Type of Urine collection method Diaz Normal [facility] Comment on above: Performed By: #### 1 1328427 #### [facility] [address] [place] [address] Urobilinogen Qn (U) 0.2 {Lazaro'U}/dL Normal 0.0-1.0 [facility] Comment on above: Performed By: #### 1 9026140 #### [facility] [address] [place] [address] WBC Auto Ql (U) Negative Normal Negative [facility] Comment on above: Performed By: #### 1 6040754 #### [facility] [address] [place] [address] Bacteria LM Ql (Urine sed) TRACE Normal Trace [facility] Comment on above: Performed By: #### 1 6651686 #### [facility] [address] [place] [address] Bilirubin Ql (U) Negative Normal Negative [facility] Comment on above: Performed By: #### 1 2487734 #### [facility] [address] [place] [address] Clarity (U) CLEAR Normal Clear [facility] Comment on above: Performed By: #### 1 8082402 #### [facility] [address] [place] [address] Color (U) YELLOW Normal Yellow [facility] Comment on above: Performed By: #### 1 3611891 #### [facility] [address] [place] [address] Epithelial cells.squamous LM.HPF (Urine sed) [#/Area] 0-2 Normal 0-2 [facility] Comment on above: Performed By: #### 1 9921794 #### [facility] [address] [place] [address] Glucose Test strip (U) [Mass/Vol] Negative Normal Negative [facility] Comment on above: Performed By: #### 1 4147551 #### [facility] [address] [place] [address] Hemoglobin Ql (U) Negative Normal Negative [facility] Comment on above: Performed By: #### 1 3539873 #### [facility] [address] [place] [address] Ketones (U) [Mass/Vol] Negative Normal Negative [facility] Comment on above: Performed By: #### 1 6987454 #### [facility] [address] [place] [address] [place].plasma/Lithiu m.RBC (Bld) [Mass ratio] 0-3 Normal 0-3 [facility] Comment on above: Performed By: #### 1 6850225 #### [facility] [address] [place] [address] Nitrite Ql (U) Negative Normal Negative [facility] Comment on above: Performed By: #### 1 1959172 #### [facility] [address] [place] [address] pH (U) 6.0 [pH] Invalid Interpretation Code 5.0-9.0 [facility] Comment on above: Performed By: #### 1 6699498 #### [facility] [address] [place] [address] Protein (U) [Mass/Vol] Negative Normal Negative [facility] Comment on above: Performed By: #### 1 9876690 #### [facility] [address] [place] [address] Specific gravity (U) [Rel density] 1.020 Invalid Interpretation Code 1.005-1.030 [facility] Comment on above: Performed By: #### 1 1854973 #### [facility] [address] [place] [address] Type of Urine collection method Clean Catch Normal [facility] Comment on above: Performed By: #### 1 4919992 #### [facility] [address] [place] [address] Urobilinogen Qn (U) 0.2 {Lazaro'U}/dL Normal 0.0-1.0 [facility] Comment on above: Performed By: #### 1 0243942 #### [facility] [address] [place] [address]50[address] WBC Auto Ql (U) Negative Normal Negative [facility] Comment on above: Performed By: #### 1 4726131 #### [facility] [address] [place] [address] WBC LM.HPF (Urine sed) [#/Area] 0-5 Normal 0-5 [facility] Comment on above: Performed By: #### 1 8643752 #### [facility] [address] [place] [address]5057 URINALYSISOrdered By: Riya Quarles on 05-12-2022 Bilirubin Ql (U) Negative (05/12/22 10:38 AM) Normal Negative [facility] UA Auto SS Clarity (U) Clear (05/12/22 10:38 AM) Normal Clear [facility] UA Auto SS Color (U) Yellow (05/12/22 10:38 AM) Normal Yellow [facility] UA Auto SS Epithelial cells.squamous LM.HPF (Urine sed) [#/Area] 0-2 /HPF Normal 0-2/HPF [facility] UA Aut o SS Glucose Test strip (U) [Mass/Vol] Negative (05/12/22 10:38 AM) Normal Negative [facility] UA Auto SS Hemoglobin Ql (U) Negative (05/12/22 10:38 AM) Normal Negative [facility] UA Auto SS Ketones (U) [Mass/Vol] Negative (05/12/22 10:38 AM) Normal Negative [facility] UA Auto SS [place].plasma/Lithiu m.RBC (Bld) [Mass ratio] 0-3 /HPF Normal [...] [facility] UA Auto SS Urobilinogen Qn (U) 0.8505141 {Lazaro'U}/dL Normal 0.0 - 1.0 EU/dL [facility] [...] AM) Normal Negative [facility] UA Auto SS [place].plasma/Lithiu m.RBC (Bld) [Mass ratio] 0-3 /HPF Normal 0-3/HPF [facility] UA Auto SS Nitrite Ql (U) Negative (05/12/22 9:58 AM) Normal Negative [facility] UA Auto SS pH (U) 6.0 *NA* (05/12/22 9:58 AM) Invalid Interpretation Code 5.0 - 9.0 [facility] UA Auto SS Protein (U) [Mass/Vol] Negative (05/12/22 9:58 AM) Normal Negative [facility] UA Auto SS Specific gravity (U) [Rel density] 1.020 *NA* (05/12/22 9:58 AM) Invalid Interpretation Code 1.005 - 1.030 [facility] UA Auto SS UA Spec Desc Clean Catch (05/12/22 9:58 AM) Normal [facility] UA Auto SS Urobilinogen Qn (U) 0.8425814 {Lazaro'U}/dL Normal 0.0 - 1.0 EU/dL [facility] UA Auto SS WBC Auto Ql (U) Negative (05/12/22 9:58 AM) Normal Negative [facility] UA Auto SS WBC LM.HPF (Urine sed) [#/Area] 0-5 /HPF Normal 0-5/HPF [facility] UA Auto SS US Gallbladderon 05-12-2022 US [...] Parry MD Transcribed by: RACIEL Technologist: ASHISH Phelan [facility] eGFRon 05-12-2022 GFR/1.73 sq M.predicted among blacks MDRD (S/P/Bld) [Vol rate/Area] mL/min/{1.73_m2} Normal >=59 [facility] Comment on above: Order Comment: Order added by Discern Expert. Result Comment: eGFR is race adjusted. AA=. Performed By: #### 2 260551, [id number], 7874118, 00875712, 2420363, 7467111, 7928941 ####[facility] [address] [place] [address] GFR/1.73 sq M.predicted among non-blacks MDRD (S/P/Bld) [Vol rate/Area] mL/min/{1.73_m2} Normal >=59 [facility] Comment on above: Order Comment: Order added by Discern Expert. Result Comment: Sorority Mother carl kidney disease could be indicated at eGFR's of less than 60 mL/min/1.73m2. Kidney failure is indicated at less than 15 mL/min/1.73m2. Performed By: #### 2 [id number] ####[facility] [address] [place] [address] BLOOD BANKOrdered By: Hillary Coppola on 05-11-2022 ABO/Rh Retype Interp Positive Invalid Interpretation Code [facility] BB Subsection CHEMISTRYOrdered By: SYSTEM SYSTEM on [...] 29 [iU]/d Normal 5 - 43 Int._Unit/L [facility] Bilirubin [Mass/Vol] 0.9 mg/dL Normal 0.0 - 1 .1 mg/dL [facility] Bilirubin.direct [Mass/Vol] 0.1 mg/dL Normal 0.1 - 0.4 mg/dL [facility] Bilirubin.indirect [Mass or moles/Vol] 0.8 mg/dL Normal 0.1 - 0.9 mg/dL [facility] Calcium [Mass/Vol] 9.5 mg/dL Normal 8.9 - 11. 1 mg/dL [facility] Chloride [Moles/Vol] 102 mmol/L Normal 101 - 1 11 mmol/L [facility] CO2 [Moles/Vol] 23 mmol/L Normal 21 - 31 mmol/L [facility] Creatinine [Mass/Vol] 1.0 mg/dL Normal 0.5 - 1.3 mg/dL [facility] GFR/1.73 sq M.predicted among blacks MDRD (S/P/Bld) [Vol rate/Area] mL/min/1.73 m2 Normal >=59mL/min/1. 73 m2 [facility] Chem S GFR/1.73 sq M.predicted among non-blacks MDRD (S/P/Bld) [Vol rate/Area] mL/min/1.73 m2 Normal >=59mL/min/1. 73 m2 [facility] Chem S Globulin (S) [Mass/Vol] 2.8 g/dL Normal 1.4 - 4.0 gm/dL [facility] Glucose [Mass/Vol] 125 mg/dL Normal 55 - 199 mg/dL [facility] Lipase [Catalytic activity/Vol] 39 U/L Normal 13 - 58 unit/L [facility] Potassium [Moles/Vol] 3.8 mmol/L Normal 3.5 - 5.3 mmol/L [facility] Protein [Mass/Vol] 7.4 g/dL Normal 6.0 - 7.8 gm/dL [facility] Sodium [Moles/Vol] 137 mmol/L Normal 135 - 145 mmol/L [facility] Urea nitrogen [Mass/Vol] 15 mg/dL Normal 5 - 21 mg/dL [facility] Urea nitrogen/Creatinine [Mass ratio] 15 mg/mg Normal 10 - 20 [facility] HEMATOLOGYOrdered By: SYSTEM SYSTEM on 05-11-2022 [...] 8.9 fL Normal 6.4 - 10.8 fL [facility] HemeAutoSS Platelets (Bld) [#/Vol] 325.0 E9/L Normal 150.0 - 500.0 E9/L [facility] HemeAutoSS RBC (Bld) [#/Vol] 5.2 E12/L Normal 4.3 - 5.9 E12/L [facility] HemeAutoSS WBC corrected for nucl RBC Auto (Bld) [#/Vol] 19.3 E9/L High 4.0 - 11.0 E9/L [facility] HemeAutoSS Comment on above: Result Comment: Slid e reviewed by MM. Provider Letteron 05-09-2022 Provider Letter May 09, 2022 [place] [address] JULISSA WEEMS 1990 Dear Julissa , We have been trying to reach you with no success. It is important that you return our call upon receiving this letter. Also, at the time of your call, please provide us with your current information. Thank you for your prompt attention to this matter. Sincerely, [facility] [address] [place] [address], [address] [place] [id number] [facility] Ambulatory Visit Summaryon 0 04-12-2022 Ambulatory Visit [...] (Wellbutrin XL 150 mg/24 hours Tab-ER) fexofenadine (Suys 24 Hour) inositol (Ovasitol) melatonin (melatonin 1 [...] AM EDT With: Helene HAMILTON CNP Where: [facility] Normal [facility] Family Medicine Office/Clini c Noteon 04-12-2022 [...] taking the Adipex after the first dose. Index hives on the backs of her legs [...] daily, # 90 tab(s), Refills(s) 0, Pharmacy: [facility] #[id number], 170, cm, 04/12/22 11:02:00 EDT, Height/Length Dosing, 96.7, kg, 04/12/22 11:02:00 EDT, Weight Dosing semaglutide, 0.5 mg, SubCutaneous, qWeek, 1 EA, Refill(s) 5, [facility] #[id number], 170, cm, 04/12/22 11:02:00 EDT, Height/Length Dosing, 96.7, kg, 04/12/22 11:02:00 EDT, Weight Dosing Follow-up With When Contact Information Helene HAMILTON CNP In 2 months [address] [place] [id number]- Additional Instructions: Patient Education BMI for Adults [...] 5 r (more content not included)... Normal [facility] Comment on above: Result Comment: Elec tronically Signed By: Helene HAMILTON CNP\.br\Date and Time Signed: 04/12/22 11:21 EDT Patient Educationon 04-12-20 Patient Education Nutrition BMI for Adults Body [...] height. This can be done either in Malian (U.S.) or metric measurements. Note that charts are available to help you find your BMI quickly and easily without having to do these calculations yourself. To calculate your BMI in Malian (U.S.) measurements, your health care provider will: [...] problems. ? BMI can be measured using Malian measurements or metric measurements. ? To interpret [...] 06/20/2005 Document Revised: 09/21/2018 Document Reviewed: 08/22/2018 [employer] Patient Education ? 2020 Spry. Obstetrics and Gynecology Diet for Polycystic Ovary [...] most days of (more content not included)... [facility] Ambulatory Visit Summaryon 0 03-08-2022 Ambulatory Visit [...] AM EDT With: Helene HAMILTON CNP Where: [facility] Family Medicine Office/Clini c Noteon 03-08-2022 Family [...] 3. High risk medication use (Z79.899: Other intermediate (current) drug therapy) OARRS reviewed and no suspicious activity is noted 4. PCOS (polycystic ovarian syndrome) (E28.2: Polycystic ovarian syndrome) 5. Obesity (E66.9: Obesity, unspecified) Orders: benzonatate, 100 mg = 1 cap(s), Oral, TID, # 45 cap(s), Refills(s) 0, Pharmacy: [facility] #[id number], 170, cm, 11/17/21 13:11:00 EST, Height/Length Dosing, 93.3, kg, 11/17/21 13:11:00 EST, Weight Dosing brompheniramine/dext romethorphan/PSE, 5 mL, Oral, QID for cold symptoms, 200 mL, Refill(s) 0, [facility] #[id number], 170, cm, 11/17/21 13:11:00 EST, Height/Length Dosing, 93.3, kg, 11/17/21 13:11:00 EST, Weight Dosing buPROPion, 150 mg = 1 tab(s), Oral, q24hr, # 30 tab(s), Refills(s) 2, Pharmacy: [facility] #[id number], 170, cm, 03/08/22 10:25:00 EDT, Height/Length Dosing, 98.4, kg, 03/08/22 10:25:00 EDT, Weight Dosing phentermine, 37.5 mg = 1 tab(s), Oral, Daily, Adipex #1; OARRS reviewed; 30 days supply; DX E66.9, # 30 tab(s), Refills(s) 0, Pharmacy: [facility] #[id number], 170, cm, 03/08/22 10:25:00 EDT, Height/Length Dosing, 98.4, kg, 03/08/22 10:25:00 EDT, Weight Dosing Follow-up With When Contact Information Helene HAMILTON CNP In 1 [facility] [address] [facility] [facility] [place] [phone]- Additional Instructions: Patient Education BMI for Adults [...] adult Class (more content not included)... Normal [facility] Comment on above: Result Comment: Elec [...] height. This can be done either in Malian (U.S.) or metric measurements. Note that charts are available to help you find your BMI quickly and easily without having to do these calculations yourself. To calculate your BMI in Malian (U.S.) measurements, your health care provider will: [...] problems. ? BMI can be measured using Malian measurements or metric measurements. ? To interpret [...] 06/20/2005 Document Revised: 09/21/2018 Document Reviewed: 08/22/2018 [employer] Patient Education ? 2019 Spry. Obstetrics and Gynecology Health Maintenance, Female Adopting [...] (moderate-intensity exe (more content not included)... Normal [facility] Coding Summaryon 05-26-2020 Coding Summary CODING DATE: 05/26/2020 [facility] STATUS: Home PAYOR: Commercial Insurance ADMIT DX: [...] Essie Beyer Date Saved: 05/26/2020 10:38 am [facility] ED Note-Nursingon 05-26-2020 ED Note-Nursing Pt calls and gives verbal permission to copy lab result and mail to her home. 2 identifiers given. [facility] Consent Formson 05-25-2020 Consent Forms [id number] [facility] .QC Respiratory Panel 2.1 (B ioFire)on 05-23-2020 Internal Control-Resp Panel 2.1(BioFire) Pass [facility] Comment on above: Order Comment: Order ed by Discern. [[id number]] Performed By: #### 6 [id number], [id number] #### [facility] (DEFAULT) [address] [place] [address] ED Clinical Summaryon 2019 ED Clinical Summary [facility] ? Urgent Care [address] [place] [address] Clinical Summary PERSON INFORMATION Name: JULISSA WEEMS Age: 29 Years Sex: FEMALE : 1990 MRN: Acct#: Visit Reason: FEVER, SOB, COUGH Arrival: 05/23/2020 13:31:24 Discharge: 05/23/2020 14:23:00 LOS: 000 00:52 Check In: 05/23/2020 13:31:24 Checkout: 05/23/2020 14:23:00 Address: [address] [place] [id number] PCP: Provider, None PROVIDER INFORMATION Provider Role [...] EDUCATION INFORMATION Instructions: Upper Respiratory Infection, Adult, Ajvu-br-Isxj Follow-Up: With: Address: When: [facility], [address] [place] [address] [phone] Business (1) Comments: Please follow-up with your primary care doctor or Dr. 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 Urgent Care [address] [place] [id number] PATIENT DISCHARGE INSTRUCTIONS Patient Information Name: JULISSA WEEMS Age: 29 Years Date of : 1990 Reason For Visit: FEVER, SOB, COUGH Arrival Time: 05/23/2020 13:31:24 Primary Care Physician: Provider, None Attending Physician: Heath Argueta PA-C Comment: Patient Education With: Address: When: [facility], [address] [place] [phone] Business (1) Comments: Please follow-up with your primary care doctor or Dr. Esquivel medical doctor fleet operations manager, their office schedule an appointment to be [...] other clear broths. General instructions ? Take dhlk-afb-lmvwwzb and prescription medicines only as told by [...] not have soap and water, use hand hardener helper. ? Avoid touching your mouth, face, eyes, [...] get better within 7?10 days. ? Take bopc-xag-oinhmwq and prescription medicines only as told by your doctor. This information is not intended to replace advice given to you by your health care provider. Make sure you discuss any questions you have with your health care provider. Document Released: 03/27/2009 Document Revised: 06/01/2018 Document Reviewed: 06/01/2018 [employer] Interactive Patient Education ? 2019 [employer] Medication Information: The exam and treatment you received today in the [facility] Emergency Department were for an urgent problem and are not intended as complete care. It is important for you to follow up with a doctor, nurse practitioner, or physician?s assistant signal maintainer for ongoing care. If your symptoms become [...] so we can reach you if necessary. [facility] Emergency Department has provided you with a complete list of medications post discharge. Please inform your engineer third assistant/provider of your visit and for further instruction on these medications. Any specific questions regarding your chronic medications and dosages should be discussed with your primary care physician(s) and/or pharmacist. New Medications [facility] #[id number], [address], [place] [id number], [phone] homatropine-HYDROcod one (homatropine-hydroco done 1.5 mg-5 mg/5 [...] for Disease Control and Prevention June 2014 [facility] Patient Handouton 05-23-2020 Patient Handout Patient Education [...] other clear broths. General instructions ? Take xbse-svz-gxbhory and prescription medicines only as told by [...] not have soap and water, use hand hardener helper. ? Avoid touching your mouth, face, eyes, [...] get better within 7?10 days. ? Take nldc-yge-iplnheo and prescription medicines only as told by your doctor. This information is not intended to replace advice given to you by your health care provider. Make sure you discuss any questions you have with your health care provider. Document Released: 03/27/2009 Document Revised: 06/01/2018 Document Reviewed: 06/01/2018 [employer] Interactive Patient Education ? 2019 [employer] Normal [facility] Respiratory Panel 2.1 (BioFi re)on 05-23-2020 Adenovirus -BioFire Not Detected Normal Not Detected [facility] Comment on above: Performed By: #### 6 [id number], [id number] #### [facility] (DEFAULT) [address] [place] [address] Bordetella parapertussis -BioFire Not Detected Normal Not Detected [facility] Comment on above: Performed By: #### 6 [id number], [id number] #### [facility] (DEFAULT) [address] [place] [address] Bordetella pertussis -BioFire Not Detected Normal Not Detected [facility] Comment on above: Performed By: #### 6 [id number], [id number] #### [facility] (DEFAULT) [address] [place] [address] Chlamydia pneumoniae -BioFire Not Detected Normal Not Detected [facility] Comment on above: Performed By: #### 6 [id number], [id number] #### [facility] (DEFAULT) [address] [place] [address] 19555 Coronavirus 229E (Not COVID-19) -BioFire Not Detected Normal Not Detected [facility] Comment on above: Performed By: #### 6 [id number], [id number] #### [facility] (DEFAULT) [address] [place] [address]252 Coronavirus HKU1 (Not COVID-19) -BioFire Not Detected Normal Not Detected [facility] Comment on above: Performed By: #### 6 [id number], [id number] #### [facility] (DEFAULT) [address] [place] [address] 08724 Coronavirus NL63 (Not COVID-19) -BioFire Not Detected Normal Not Detected [facility] Comment on above: Performed By: #### 6 [id number], [id number] #### [facility] (DEFAULT) [address] [place] [address] 52890 Coronavirus OC43 (Not COVID-19) -BioFire Not Detected Normal Not Detected [facility] Comment on above: Performed By: #### 6 [id number], [id number] #### [facility] (DEFAULT) [address] [place] [address]6053 Human Metapneumovirus -BioFire Not Detected Normal Not Detected [facility] Comment on above: Performed By: #### 6 [id number], [id number] #### [facility] (DEFAULT) [address] [place] [address] 35438 Human Rhinovirus/Enteroviru s -BioFire Detected Abnormal Not Detected [facility] Comment on above: Performed By: #### 6 [id number], [id number] #### [facility] (DEFAULT) [address] [place] [address] 38367 Influenza A (no subtype) -BioFire Not Detected Normal Not Detected [facility] Comment on above: Performed By: #### 6 [id number], [id number] #### [facility] (DEFAULT) [address] [place] [address] 54703 Influenza A -BioFire Not Detected Normal Not Detected [facility] Comment on above: Performed By: #### 6 [id number], [id number] #### [facility] (DEFAULT) [address] [place] [address] 52675 Influenza A H1 -BioFire Not Detected Normal Not Detected [facility] Comment on above: Performed By: #### 6 [id number], [id number] #### [facility] (DEFAULT) [address] [place] [address] 24736 Influenza A H1-2009 -BioFire Not Detected Normal Not Detected [facility] Comment on above: Performed By: #### 6 [id number], [id number] #### [facility] (DEFAULT) [address] [place] [address] 53752 Influenza A H3 -BioFire Not Detected Normal Not Detected [facility] Comment on above: Performed By: #### 6 [id number], [id number] #### [facility] (DEFAULT) [address] [place] [address]8559 Influenza B -BioFire Not Detected Normal Not Detected [facility] Comment on above: Performed By: #### 6 [id number], [id number] #### [facility] (DEFAULT) [address] [place] [address] 43100 Mycoplasma pneumoniae -BioFire Not Detected Normal Not Detected [facility] Comment on above: Performed By: #### 6 [id number], [id number] #### [facility] (DEFAULT) [address] [place] [address] 22823 Parainfluenza Virus 1 -BioFire Not Detected Normal Not Detected [facility] Comment on above: Performed By: #### 6 [id number], [id number] #### [facility] (DEFAULT) [address] [place] [address]676 Parainfluenza Virus 2 -BioFire Not Detected Normal Not Detected [facility] Comment on above: Performed By: #### 6 [id number], [id number] #### [facility] (DEFAULT) [address] [place] [address]3826 Parainfluenza Virus 3 -BioFire Not Detected Normal Not Detected [facility] Comment on above: Performed By: #### 6 [id number], [id number] #### [facility] (DEFAULT) [address] [place] [address] Parainfluenza Virus 4 -BioFire Not Detected Normal Not Detected [facility] Comment on above: Performed By: #### 6 [id number], [id number] #### [facility] (DEFAULT) [address] [place] [address] Respiratory Syncytial Virus -BioFire Not Detected Normal Not Detected [facility] Comment on above: Performed By: #### 6 [id number], [id number] #### [facility] (DEFAULT) [address] [place] [address] SARS-CoV-2 (COVID-19) -BioFire Not Detected Normal Not Detected [facility] Comment on above: Performed By: #### 6 [id number], [id number] #### [facility] (DEFAULT) [address] [place] [address] Urgent Care [place] 020 Urgent Care Record [facility] ? Urgent Care [address] [place] [address] PATIENT DISCHARGE INSTRUCTIONS Patient Information Name: JULISSA [...] documents With: Address: When: Jaime [facility], [address], [place] [phone] Business (1) Comments: Please follow-up with your primary care doctor or Dr. Esquivel, medical doctor fleet operations manager, their office schedule an appointment to be seen in 3 to 5 days for continued care, take only Tylenol for headaches or fevers, drink plenty of water for hydration, notified with your COVID-19 results, and return back to the urgent care center for any worsening symptoms, concerns, or complications. Medication Information: The exam and treatment you received today in the [facility] Urgent [facility] were for an urgent problem and are not intended as complete care. It is important for you to follow up with a doctor, nurse practitioner, or physician?s assistant signal maintainer for ongoing care. If your symptoms become [...] so we can reach you if necessary. [facility] has provided you with a complete list of medications post discharge. Please inform your engineer third assistant/provider of your visit and for further instruction on these medications. Any specific questions regarding your chronic medications and dosages should be discussed with your primary care physician(s) and/or pharmacist. New Medications [id number], [address], [place] [id number], [phone] homatropine-HYDROcod one (homatropine-hydroco done 1.5 mg-5 mg/5 [...] other clear broths. General instructions ? Take vwxn-dts-uuoexgb and prescription medicines only as told by [...] not have soap and water, use hand hardener helper. ? Avoid touching your mouth, face, eyes, [...] get better within 7?10 days. ? Take nwgq-frw-twkmhjx and prescription medicines only as told by your doctor. This information is not intended to replace advice given to you by your health care provider. Make sure you discuss any questions you have with your health care provider. Document Released: 03/27/2009 Document Revised: 06/01/2018 Document Reviewed: 06/01/2018 [employer] Interactive Patient Education ? 2019 Spry. Viruses or Bacteria What?s got you sick? [...] Disease Control and Prevention June 2014 Normal [facility] Vital Signs Date Time Vital Sign Value Performing Clinician Facility 12-23-2024 10:42-0500 Body mass index (BMI) [Ratio] 33.17 kg/m2 Lindsey GONZALEZ Work Phone: [facility] 12-23-2024 10:42-0500 Body weight 96.07 kg Lindsey GONZALEZ Work Phone: [facility] 12-23-2024 10:42-0500 Diastolic blood pressure 84 mm[Hg] Lindsey GONZALEZ Work Phone: [facility] 12-23-2024 10:42-0500 Systolic blood pressure 142 mm[Hg] Lindsey GONZALEZ Work Phone: [facility] 11-25-2024 09:59-0500 Body mass index (BMI) [Ratio] 32.28 kg/m2 Mik Elmo DO Work Phone: [facility] 11-25-2024 09:59-0500 Body weight 93.5 kg Mik Elmo DO Work Phone: [facility] 11-25-2024 09:59-0500 Diastolic blood pressure 84 mm[Hg] Mik Elmo DO Work Phone: [facility] 11-25-2024 09:59-0500 Systolic blood pressure 120 mm[Hg] Mik Elmo DO Work Phone: [facility] 10-24-2024 14:22-0500 Body mass index (BMI) [Ratio] 31.64 kg/m2 Nom Nurse [facility] 10-24-2024 14:22-0500 Body weight 91.63 kg [facility] Nurse [facility] 10-24-2024 14:22-0500 Diastolic blood pressure 74 mm[Hg] [facility] Nurse [facility] 10-24-2024 14:22-0500 Systolic blood pressure 120 mm[Hg] [facility] Nurse [facility] 09-16-2024 15:18-0500 Body mass index (BMI) [Ratio] 32.08 kg/m2 Mik Elmo DO Work Phone: [facility] 09-16-2024 15:18-0500 Body weight 92.9 kg Mik Elmo DO Work Phone: [facility] 09-16-2024 15:18-0500 Diastolic blood pressure 68 mm[Hg] Mik Elmo DO Work Phone: [facility] 09-16-2024 15:18-0500 Systolic blood pressure 114 mm[Hg] Mik Elmo DO Work Phone: [facility] 05-12-2022 15:32-0400 Blood Pressure Location Kaylinn Dokken [facility] 05-12-2022 15:32-0400 Diastolic blood pressure 70 mm[Hg] Kaylinn Dokken [facility] 05-12-2022 15:32-0400 Heart rate 101 /min Kayl[facility] Dok[facility] 05-12-2022 15:32-0400 Mean blood pressure 84 mm[Hg] Kaylinn Dokken [facility] 05-12-2022 15:32-0400 Respiratory rate 24 /min Kaylinn Dokken [facility] 05-12-2022 15:32-0400 SaO2% (BldA) [Mass fraction] 96 % Kaylinn Dokken [facility] 05-12-2022 15:32-0400 Systolic blood pressure 114 mm[Hg] Kaylinn Dokken [facility] 05-12-2022 14:20-0400 Body temperature 98.06 [degF] Kaylinn Dokken [facility] 05-12-2022 14:20-0400 Diastolic blood pressure 69 mm[Hg] Kaylinn Dokken [facility] 05-12-2022 14:20-0400 Heart rate 73 /min Kaylinn Dokken [facility] 05-12-2022 14:20-0400 Respiratory rate 16 /min Kaylinn Dokken [facility] 05-12-2022 14:20-0400 SaO2% (BldA) [Mass fraction] 97 % Kaylinn Dokken [facility] 05-12-2022 14:20-0400 Systolic blood pressure 108 mm[Hg] Kaylinn Dok[facility] 05-12-2022 13:14-0400 Body temperature 98.24 [degF] [facility] Dok[facility] 05-12-2022 13:14-0400 Diastolic blood pressure 82 mm[Hg] [facility] Dok[facility] 05-12-2022 13:14-0400 Heart rate 87 /min Kayl[facility] Dok[facility] 05-12-2022 13:14-0400 Mean blood pressure 98 mm[Hg] [facility] Dok[facility] 05-12-2022 13:14-0400 SaO2% (BldA) [Mass fraction] 95 % Kaylinn Dokken [facility] 05-12-2022 13:14-0400 Systolic blood pressure 129 mm[Hg] Kaylinn Dokken [facility] 05-12-2022 13:05-0400 Body temperature 97.88 [degF] [facility] Dok[facility] 05-12-2022 13:05-0400 Mean blood pressure 96 mm[Hg] [facility] Dok[facility] 05-12-2022 13:05-0400 Respiratory rate 14 /min Kayl[facility] Dok[facility] 05-12-2022 13:00-0400 Respiratory rate 13 /min [facility] [facility] 05-12-[facility]22 12:45-0400 Mean blood pressure 95 mm[Hg] Kaylinn Dokken [facility] 05-12-2022 11:56-0400 Body temperature 98.06 [degF] Kaylinn Dokken [facility] 05-12-2022 11:50-0400 Respiratory rate 16 /min Kaylinn Dokken [facility] 05-12-2022 11:45-0400 Respiratory rate 16 /min Kaylinn Dokken [facility] 05-12-2022 09:30-0400 Blood Pressure Location Kaylinn Dokken [facility] 05-12-2022 09:30-0400 Mean blood pressure 93 mm[Hg] Kaylinn Dokken [facility] 05-12-2022 09:28-0400 Blood Pressure Location Kaylinn Dokken [facility] 05-12-2022 09:28-0400 Body temperature 97.7 [degF] Kaylinn Dokken [facility] 05-12-2022 09:00-0400 Hourly Rounding Kaylinn Dokken [facility] 05-12-2022 09:00-0400 Promise to Return Kaylinn Dokken [facility] 05-12-2022 08:00-0400 Hourly Rounding Kaylinn Dokken [facility] 05-12-2022 08:00-0400 Promise to Return Kaylinn Dokken [facility] 05-11-2022 22:41-0400 Heart rate 112 /min William Yoder [facility] 03-08-2022 10:17-0400 Blood Pressure Location Helene HAMILTON [facility] 03-08-2022 10:17-0400 Body temperature 99.5 [degF] Helene HAMILTON [facility] 03-08-2022 10:17-0400 Diastolic blood pressure 84 mm[Hg] Helene HAMILTON [facility] 03-08-2022 10:17-0400 Heart rate 84 /min Helene HAMILTON [facility] 03-08-2022 10:17-0400 SaO2% (BldA) [Mass fraction] 97 % Helene HAMILTON [facility] 03-08-2022 10:17-0400 Systolic blood pressure 118 mm[Hg] Helene HAMILTON [facility] Encounters Encounter Date Encounter Type Care Provider Facility Start: 12-23-2024 End: 12-23-2024 Bamboo flowsheet Lindsey GONZALEZ Work Phone: [facility] Start: 12-23-2024 End: 12-25-2024 Bamboo flowsheet Lindsey GONZALEZ Work Phone: [facility] Start: 12-23-2024 End: 12-25-2024 External Result Encounter Lindsey GONZALEZ Work Phone: [facility] Unsolicited Start: 12-23-2024 End: 12-23-2024 flow sheet Lindsey GONZALEZ Work Phone: [facility] Comment on above: Screening, , for anatomic survey; Second trimester ; 15 weeks gestation of ; STD exposure; Vaginal discharge Start: 12-23-2024 End: 12-23-2024 ambulatory LINDSEY COBB Not Available Start: 12-06-2024 End: 12-06-2024 Chart abstracting Love Perez MD Work Phone: [facility] Start: 11-25-2024 End: 11-25-2024 Bamboo flowsheet Mik Elmo DO Work Phone: [facility] Start: 11-25-2024 End: 11-25-2024 Bamboo flowsheet Mik Elmo DO Work Phone: [facility] Start: 11-25-2024 End: 11-25-2024 flow sheet Mik Elmo DO Work Phone: [facility] Comment on above: First trimester preg lillian; 11 weeks gestation of Start: 11-25-2024 End: 11-25-2024 ambulatory MIK ELMO Not Available Start: 11-08-2024 End: 11-08-2024 Clinisync Result Encounter Mik Elmo DO Work Phone: [facility] Unsolicited Start: 11-08-2024 End: 11-08-2024 Clinisync Result Encounter Mik Elmo DO Work Phone: [facility] Unsolicited Start: 10-24-2024 End: 10-24-2024 ambulatory [facility] [...] Available Start: 10-03-2022 End: 10-04-2022 ambulatory DONA W ESEQUIELLL Facility:[facility] Start: 10-03-2022 End: 10-03-2022 Patient encounter procedure DONA W SIDELL [facility] Start: 10-03-2022 End: 10-03-2022 Manual pelvic examination DONA W SIDEGENE [facility] Start: 09-12-2022 ambulatory Kuldeep Johns y:[facility] Start: 07-12-2022 End: 07-13-2022 ambulatory Helene HAMILTON Facility:[facility] Start: 07-12-2022 End: 07-12-2022 Patient encounter procedure Helene HAMILTON [facility] Start: 06-01-2022 End: 08-31-2022 ambulatory Helene HAMILTON [facility] Start: 06-01-2022 End: 08-30-2022 Patient encounter procedure Helene HAMILTON [facility] Start: 05-17-2022 End: 05-18-2022 ambulatory Helene HAMILTON Facility:[facility] Start: 05-13-2022 ambulatory DO Kaylinn Dokken Facil ity:[facility] Start: 05-12-2022 End: 05-12-2022 Emergency department patient visit DO Kaylinn A Dokken Facility:[facility] Start: 05-11-2022 End: 05-12-2022 Emergency department patient visit Kaylinn A Dokken [facility] Start: 04-12-2022 End: 04-13-2022 ambulatory Helene HAMILTON Facility:[facility] Start: 04-08-2022 ambulatory DO Kaylinn Dokken Facil ity:[facility] Start: 04-04-2022 ambulatory DO Kaylinn Dokken Facil ity:[facility] Start: 03-08-2022 End: 03-09-2022 ambulatory Helene A RYLIETTBERNARDINO Facility:[facility] Start: 03-08-2022 End: 03-08-2022 Patient encounter procedure Helene HAMILTON [facility] Procedures Date Procedure Procedure Detail Performing Clinician Start: 12-23-2024 RECURRENT VAGINITIS (HTRX) Lindsey GONZALEZ Work Phone: Start: 12-23-2024 Urnls dip stick/tabl et rgnt non-auto w/o micrscp Lindsey GONZALEZ Work Phone: Start: 11-25-2024 Urnls dip stick/tabl et rgnt non-auto w/o micrscp Mik Elmo DO Work Phone: Start: 11-08-2024 ALL CBC WITH AUTO DIFF Mik Elmo DO Work Phone: Start: 10-24-2024 End: 10-24-2024 Urnls dip stick/tablet rgnt non-auto w/o micrscp Mik Elmo DO Work Phone: Start: 09-16-2024 IGP,APTIMA HPV,AGE GDLN Mik Jaino DO Work Phone: Start: 09-16-2024 Microscopic observat ion [Identifier] in Cervix by Cyto stain [facility] Nurse Start: 05-12-2022 Laparoscopic appendectomy William Yoder History of appendectomy History of appendectomy( Confirmed ) Helene HAMILTON None (qualifier value) Rachna HAMILTON Plan of Treatment Date Care Activity Detail Author Start: 09-16-2029 Screening for malign ant neoplasm of cervix [facility] Start: 09-16-2027 Screening for malign ant neoplasm of cervix Pap Smear [facility] Start: 08-05-2025 Screening for malign ant neoplasm of cervix [facility] Start: 01-21-2025 End: 01-21-2025 Patient encounter procedure 01/21/2025 10:30 AM EDT Office Visit [facility] [address] [place] [phone] Love Perez MD [address] [place] [address] [facility] Start: 01-21-2025 End: 01-21-2025 Patient encounter procedure 01/21/2025 9:15 AM EDT Appointment [facility] [address] [place] [phone] [facility] Start: 01-20-2025 End: 01-20-2025 Patient encounter procedure 01/20/2025 9:20 AM EDT Routine [facility] [address] [place] [address] Mik Borrego, DO [address] [place] [address] [facility] Start: 12-30-2024 End: 12-30-2024 Clinical Support 12/30/2024 9:10 AM EDT Clinical Support [facility] [address] [place] [address] [facility] Start: 12-23-2024 End: 02-22-2025 Alpha fetoprotein, maternal Alpha fetoprotein, maternal Lab Routine Screening, , for anatomic survey Expected: 12/23/2024 (Approximate), Expires: 02/22/2025 [facility] Comment on above: Expected: 12/23/2024 (Approximate), Expires: 02/22/2025 Start: 12-23-2024 End: 12-23-2024 Patient encounter procedure [facility] Comment on above: Arrived Start: 11-25-2024 End: 11-25-2024 Patient encounter procedure [facility] Comment on above: Arrived Start: 10-24-2024 End: 10-24-2025 ABO/Rh ABO/Rh Lab Routine Missed menses , unspecified gestational age Expected: 10/24/2024 (Approximate), Expires: 10/24/2025 [facility] Comment on above: Expected: 10/24/2024 (Approximate), Expires: 10/24/2025 Start: 10-24-2024 End: 10-24-2025 Blood type and Indirect antibody screen panel - Blood Type and screen Lab Routine Missed menses , unspecified gestational age Expected: 10/24/2024 (Approximate), Expires: 10/24/2025 [facility] Comment on above: Expected: 10/24/2024 (Approximate), Expires: 10/24/2025 Start: 10-24-2024 End: 10-24-2025 Drugs of abuse panel - Urine by Screen method Rapid drug screen, urine Lab Routine , unspecified gestational age Encounter for supervision of normal first in first trimester Expected: 10/24/2024 (Approximate), Expires: 10/24/2025 [facility] Comment on above: Expected: 10/24/2024 (Approximate), Expires: 10/24/2025 Start: 10-24-2024 End: 10-24-2025 US Pelvis transvaginal [facility] Work Phone: Comment on above: Expected: 10/24/2024 , Expires: 10/24/2025 Start: 09-16-2024 End: 09-16-2024 Patient encounter procedure 09/16/2024 3:00 PM EST Office Visit [facility] [address] [place] [phone] Mik Borrego, DO [address] [place], [place] [id number] Arrived [facility] Comment on above: Arrived Start: 06-23-2024 Influenza vaccination [facility] Start: 2009 Screening for malign ant neoplasm of cervix Pap Smear [facility] Start: 2007 DTaP,Tdap and Td Vaccines (1 - Tdap) DTaP,Tdap and Td Vaccines (1 - Tdap) [facility] Start: 2006 Adult BMI Screening Adult BMI Screen ing [facility] Start: 2000 Depression Screening Depression Scre ening [facility] Start: 2000 Tobacco Screening Tobacco Screening [facility] Bacteria identified in Urine by Culture Urine culture Microbiology Routine Missed menses Ordered: 10/24/2024 [facility] Comment on above: Ordered: 10/24/2024 CBC W Auto Different ial panel - Blood CBC and differential Lab Routine Missed menses , unspecified gestational age Ordered: 10/24/2024 [facility] Comment on above: Ordered: 10/24/2024 CHLAMYDIA TRACHOMATI S (GENITO/STI) CHLAMYDIA TRACHOMATIS (GENITO/STI) Lab Routine STD exposure Vaginal discharge Ordered: 12/23/2024 [facility] Comment on above: Ordered: 12/23/2024 Cytology Cervical or vaginal smear or scraping study Pap Smear Pathology and Cytology Routine Well woman exam with routine gynecological exam Ordered: 09/16/2024 [facility] Work Phone: Comment on above: Ordered: 09/16/2024 Hemoglobin A1c/Hemoglobin.total in Blood Hemoglobin A1c Lab Routine Missed menses , unspecified gestational age Ordered: 10/24/2024 [facility] Comment on above: Ordered: 10/24/2024 Hepatitis B virus surface Ag [Presence] in Serum or Plasma by Immunoassay Hepatitis B surface antigen Lab Routine Missed menses , unspecified gestational age Ordered: 10/24/2024 [facility] Comment on above: Ordered: 10/24/2024 Hepatitis C virus Ab [Presence] in Serum or Plasma by Immunoassay Hepatitis C antibody Lab Routine Missed menses , unspecified gestational age Ordered: 10/24/2024 [facility] Comment on above: Ordered: 10/24/2024 HIV-1/HIV-2 antigen/antibody combination immunoassay HIV-1 and HIV-2 antibodies Lab Routine Missed menses , unspecified gestational age Ordered: 10/24/2024 [facility] Comment on above: Ordered: 10/24/2024 Human papilloma viru s DNA [Presence] in Unspecified specimen by Probe with amplification HPV DNA probe, amplified Microbiology Routine Well woman exam with routine gynecological exam Ordered: 09/16/2024 [facility] Comment on above: Ordered: 09/16/2024 Neisseria gonorrhoea e DNA [Presence] in Unspecified specimen by DANA with probe detection Neisseria gonorrhea DNA probe, direct Lab Routine STD exposure Vaginal discharge Ordered: 12/23/2024 [facility] Comment on above: Ordered: 12/23/2024 Reagin Ab [Presence] in Serum by RPR RPR Lab Routine Missed menses , unspecified gestational age Ordered: 10/24/2024 [facility] Comment on above: Ordered: 10/24/2024 Rubella antibody, IgG Rubella an tibody, IgG Lab Routine Missed menses , unspecified gestational age Ordered: 10/24/2024 [facility] Comment on above: Ordered: 10/24/2024 SURESWAB(R) ADVANCED VAGINITIS PLUS, TMA SURESWAB(R) ADVANCED VAGINITIS PLUS, TMA Pathology and Cytology Routine STD exposure Vaginal discharge Ordered: 12/23/2024 [facility] Work Phone: Comment on above: Ordered: 12/23/2024 Immunizations Immunization Date Immunization Notes Care Provider Fa cility 08-05-2021 COVID-19, mRNA, LNP- S, PF, 30 mcg/0.3 mL dose Helene SPETTEL [facility] 06-25-2021 COVID-19, mRNA, LNP- S, PF, 30 mcg/0.3 mL dose Helene SPETTEL [facility] 02-08-2019 meningococcal ACWY vaccine, unspecified formulation Helene SPETTEL [facility] 12-14-2009 hepatitis B vaccine, adult dosage Helene SPETTEL [facility] 07-03-2009 hepatitis B vaccine, adult dosage Helene SPETTEL [facility] 06-01-2009 hepatitis B vaccine, adult dosage Helene SPETTEL [facility] 06-01-2009 tetanus toxoid, redu [place] diphtheria toxoid, and acellular pertussis vaccine, adsorbed Helenedhara HAMILTON [facility] 05-16-2001 measles, mumps and rubella virus vaccine Helene SPETTEL [facility] NEGATED: Highlighted row has not occurred!03-08-2022 influenza virus vaccine, unspecified formulation Helene SPETTEL [facility] NEGATED: Highlighted row has not occurred!03-16-2021 SARS-CoV-2 (COVID-19) mRNA-1273 vaccine Helene SPETTEL [facility] NEGATED: Highlighted row has not occurred!10-20-2020 influenza virus vaccine, unspecified formulation Helene HAMILTON [facility] Payers Date Payer Category Payer [place] [employer] [facility] BCBS [id number] 2022 Unknown [id number] 2021 Unknown [id number] 1988 Unknown [id number] 2.16.840.1.183368.3.579.2. 7 1988 Unknown [id number] 2.16.840.1.198001.3.579.2. 1988 Unknown [id number] 2.16.840.1.515692.3.579.2. 7 1988 Unknown [id number] 2.16.840.1.738629.3.579.2. 1988 Unknown [id number] 2.16.840.1.022025.3.579.2. 7 1988 Unknown [id number] 2.16.840.1.222004.3.579.2. 1988 Unknown [id number] 2.16.840.1.420418.3.579.2. 727 1988 Unknown [id number] 2.16.840.1.785524.3.579.2. 727 1988 Unknown [id number] 2.16.840.1.153148.3.579.2. 727 1988 Unknown [id number] 2.16.840.1.852328.3.579.2. 727 1988 Unknown [id number] 2.16.840.1.792994.3.579.2. 727 1988 Unknown [id number] 2.16.840.1.889074.3.579.2. 727 1988 Unknown [id number] 2.16.840.1.119175.3.579.2. 1259 1988 Unknown [id number] 2.16.840.1.318208.3.579.2. 9 1988 Unknown [id number] 2.16.840.1.482303.3.579.2. 1259 1988 Unknown [id number] 2.16.840.1.238064.3.579.2. 9 1988 Unknown [id number] 2.16.840.1.993820.3.579.2. 1259 1988 Unknown [id number] 2.16.840.1.606139.3.579.2. 1259 Social History Date Type Detail Facility Start: 03-08-2022 End: 05-17-2022 Tobacco smoking status Never smoked tobacco (finding) [facility] Sex Assigned At Female [facility] Start: 12-06-2024 Tobacco smoking status NHIS Tobacco smoking consumption unknown [facility] Start: 1990 Sex assigned at Not on file [facility] Start: 09-19-2024 [facility] Start: 12-05-2024 Sex Female (finding) [facility] Functional Status Date Assessment Result Facility 05-11-2022 Functional Status N/A [facility] Clinical Notes 03-08-2022 to 12-23-2024 LISA Lomeli - 12/23/2024 10:30 AM Sara Esparza, ALYSHA - 11/25/2024 9:50 AM Vince Chowdary MA - 10/24/2024 2:00 PM BROOKLYNNpegmark RosaSUSAN aquino - 09/16/2024 3:00 PM EST Note Date & Type Note Facility 12-23-2024 History of Present illness Narrative Reason for Appointment: Patient ID: Julissa Weems is a 34 y.o. female who presents for Routine Visit Patient presents today for Return OB appointment. MEDICATIONS Current Outpatient Medications Medication Instructions albuterol HFA 90 mcg/act inhaler cetirizine (ZyrTEC) 10 MG tablet Oral ALLERGIES Allergies Allergen Reactions Metformin Other Reaction(s): Rhabdomyolysis Phentermine Shortness of breath Other Reaction(s): Hives Metformin Hcl Er Other Reaction(s): Rhabdomyolsis Other Gelatin Sulfites Trulicity [Dulaglutide] Hives PROBLEMS Active Ambulatory Problems Diagnosis Date Noted Vaginal bleeding affecting early 11/06/2024 Resolved Ambulatory Problems Diagnosis Date Noted No Resolved Ambulatory Problems Past Medical History: Diagnosis Date ADHD (attention deficit hyperactivity disorder) ([facility]) Anxiety Insulin resistance PCOS (polycystic ovarian syndrome) HISTORY PAST MEDICAL HISTORY SOCIAL HISTORY Past Medical History: Diagnosis Date ADHD (attention deficit hyperactivity disorder) ([facility]/HCC) Anxiety Insulin resistance PCOS (polycystic ovarian syndrome) [...] Exam Constitutional: Appearance: Normal appearance. She is normal weight. HENT: Head: Normocephalic. Cardiovascular: Rate and Rhythm: Normal rate. Pulses: Normal pulses. Pulmonary: Effort: Pulmonary effort is normal. Breath sounds: Normal breath sounds. Abdominal: Palpations: Abdomen is soft. Musculoskeletal: General: Normal range of motion. Neurological: General: No focal deficit present. Mental Status: She is alert and oriented to person, place, and time. Psychiatric: Mood and Affect: Mood normal. Behavior: Behavior normal. Thought Content: Thought content normal. Judgment: Judgment normal. Vitals and nursing note reviewed. Vitals: Estimated body mass index is 33.17 kg/m as calculated from the following: Height as of 05/06/24: 5' 7 . Weight as of this encounter: 211 lb 12.8 oz. BP: 142/84 Patient's last menstrual period was 08/23/2024. ASSESSMENT & PLAN ICD-10-CM 1. Screening, , for anatomic survey Z36.89 Alpha fetoprotein, maternal Alpha fetoprotein, maternal CANCELED: US OB 14+ weeks anatomy scan 2. Second trimester Z34.92 POCT urinalysis dipstick manually resulted 3. 15 weeks gestation of Z3A.15 4. STD exposure Z20.2 SURESWAB(R) ADVANCED VAGINITIS PLUS, TMA CHLAMYDIA TRACHOMATIS (GENITO/STI) Neisseria gonorrhea DNA probe, direct 5. Vaginal discharge N89.8 SURESWAB(R) ADVANCED VAGINITIS PLUS, TMA CHLAMYDIA TRACHOMATIS (GENITO/STI) Neisseria gonorrhea DNA probe, direct Return OB: Patient presents today for a routine obstetrics appointment. Patient is currently 15w4d . Patient states she is doing well but has complaints of being tired due to current . Patient has verbalizes frequent movement. Orders Placed This Encounter Procedures CHLAMYDIA TRACHOMATIS (GENITO/STI) Neisseria gonorrhea DNA probe, direct Alpha fetoprotein, maternal POCT urinalysis dipstick manually resulted Follow Up: Patient is to return to office in 4 week for routine OB appointment. Documented by LISA Lomeli on behalf of: LISA Lomeli documented in this encounter [facility] 11-25-2024 History of Present illness Narrative Reason for Appointment: Patient ID: Julissa Weems is a 34 y.o. female who presents for Routine Visit Patient presents today for Return OB appointment. MEDICATIONS Current Outpatient Medications Medication Instructions albuterol HFA 90 mcg/act inhaler cetirizine (ZyrTEC) 10 MG tablet Oral ALLERGIES Allergies Allergen Reactions Metformin Other Reaction(s): Rhabdomyolysis Phentermine Shortness of breath Other Reaction(s): Hives Metformin Hcl Er Other Reaction(s): Rhabdomyolsis Sulfites Trulicity [Dulaglutide] Hives PROBLEMS Active Ambulatory Problems Diagnosis Date Noted Vaginal bleeding affecting early 11/06/2024 Resolved Ambulatory Problems Diagnosis Date Noted No [...] Exam Constitutional: Appearance: Normal appearance. She is normal weight. HENT: Head: Normocephalic. Cardiovascular: Rate and Rhythm: Normal rate. Pulses: Normal pulses. Pulmonary: Effort: Pulmonary effort is normal. Breath sounds: Normal breath sounds. Abdominal: Palpations: Abdomen is soft. Musculoskeletal: General: Normal range of motion. Neurological: General: No focal deficit present. Mental Status: She is alert and oriented to person, place, and time. Psychiatric: Mood and Affect: Mood normal. Behavior: Behavior normal. Thought Content: Thought content normal. Judgment: Judgment normal. Vitals and nursing note reviewed. Vitals: Estimated body mass index is 31.64 kg/m as calculated from the following: Height as of 05/06/24: 5' 7 . Weight as of 10/24/24: 202 lb. BP: Patient's last menstrual period was 08/23/2024. ASSESSMENT & PLAN ICD-10-CM 1. First trimester Z34.91 2. 11 weeks gestation of Z3A.11 New OB: Patient presents today for 1st time obstetrics appointment with provider. Patient is currently 11w4d . Patients history has been reviewed in great detail including any potential risks. Patient stated she currently has no complaints. Expectations throughout regarding labs, ultrasounds, and appointments have been discussed with the patient in detail. It was reiterated that the patient is to drink 6-8 glasses of water a day, eat 6 small meals a day, do not consume raw or undercooked meat, and stay away from [facility]. Patient has been consulted regarding any further do's and don'ts of . Patient voiced understanding and all questions and concerns were answered. Patient will be sent to [facility] for advanced maternal age and has decided to have US with [facility] rather than [facility] No orders of the defined types were placed in this encounter. Follow Up: Patient is to return in 4 weeks for routine OB appointment. Documented by Juanis Esparza MA on behalf of: Mik Borrego DO documented in this encounter [facility] 10-24-2024 History of Present illness Narrative Reason [...] or undercooked meat, and stay away from [facility]. Patient has also been advised to [...] Larisa Chowdary MA documented in this encounter [facility] 09-16-2024 History of Present illness Narrative Reason [...] Diagnosis Date ADHD (attention deficit hyperactivity disorder) ([facility]/HCC) Anxiety Insulin resistance PCOS (polycystic ovarian syndrome) HISTORY PAST MEDICAL HISTORY SOCIAL HISTORY Past Medical History: Diagnosis Date ADHD (attention deficit hyperactivity disorder) ([facility]) Anxiety Insulin resistance PCOS (polycystic ovarian syndrome) [...] nursing note reviewed. Exam conducted with a forge press operator present. Vitals: Estimated body mass index is [...] Mik Borrego DO documented in this encounter [facility] 10-03-2022 Hospital Discharge instructions Patient Education 10/03/2022 [...] water added (diluted fruit juice). Eat bland, eqxb-oc-snulmw foods in small amounts as you are able. These foods include bananas, applesauce, rice, lean meats, toast, and crackers. Avoid fluids that contain a lot of sugar or caffeine, such as energy drinks, sports drinks, and soda. Avoid alcohol. Avoid spicy or fatty foods. General instructions Take sydz-vyh-dovrwet and prescription medicines only as told by your health care provider. Drink enough fluid to keep your urine pale yellow. Wash your hands often using soap and water. If soap and water are not available, use hand hardener helper. Make sure that all people in your [...] eating and drinking to prevent dehydration. Take yydc-yqf-ykvkdqi and prescription medicines only as told by [...] 10/09/2006 Document Revised: 01/31/2020 Document Reviewed: 03/19/2019 [employer] Patient Education 2020 [employer]. 10/03/2022 13:10:32 Acute Pain, Adult Acute Pain, [...] Follow these instructions at home: Medicines Take lnie-ehg-yrlmdro and prescription medicines only as told by [...] pain is severe. ?Do not take other tcwv-xyl-kkginui pain medicines in addition to prescription pain [...] grains, and fresh fruits and vegetables. ?Take arjl-axo-efrcnlj or prescription medicines. ?Limit foods that are [...] or you are no longer ill. Take lwli-bvg-fzavcwu and prescription medicines only as told by [...] 10/23/2016 Document Revised: 02/24/2020 Document Reviewed: 02/24/2020 [employer] Patient Education 2020 [employer]. 10/03/2022 13:10:29 Dysmenorrhea Dysmenorrhea Dysmenorrhea refers to [...] to help relieve pain. General instructions Take pjen-gco-jsgtmmw and prescription medicines only as told by [...] 10/09/2006 Document Revised: 09/21/2018 Document Reviewed: 11/11/2017 [employer] Patient Education 2020 [employer]. 10/03/2022 13:10:26 Polycystic Ovarian Syndrome Polycystic Ovarian [...] produces. Follow these instructions at home: Take jscm-oeh-vhmzemk and prescription medicines only as told by [...] 02/02/2006 Document Revised: 09/21/2018 Document Reviewed: 03/26/2017 [employer] Patient Education 2020 [employer] 10/03/2022 13:10:25 Ovarian Cyst Ovarian Cyst [...] cyst. Follow these instructions at home: Take ciuf-dgo-hdocfxl and prescription medicines only as told by [...] 10/09/2006 Document Revised: 01/07/2019 Document Reviewed: 03/12/2017 [employer] Patient Education 2019 [employer]. Follow Up Care 10/03/2022 08:07:39 With:DONA DELAROSA CNP Address: [address] [place] [address] When: Unknown [facility] 05-12-2022 Hospital Discharge instructions Patient Education 05/12/2022 [...] Follow these instructions at home: Medicines Take fpbs-hyp-bvadseo and prescription medicines only as told by [...] to keep your urine pale yellow. ?Take nnfv-qld-bdsaazs or prescription medicines. ?Eat foods that are [...] and water are not available, use hand hardener helper. ?Change your dressing as told by your [...] 10/09/2006 Document Revised: 04/11/2019 Document Reviewed: 04/11/2019 [employer] Patient Education 2020 [employer]. 05/12/2022 14:04:00 Laparoscopic Appendectomy, Adult Laparoscopic Appendectomy, [...] including vitamins, herbs, eye drops, creams, and iodf-gth-zryoajj medicines. Use of steroids (by mouth or [...] provider tells you to take them. Taking wjfi-cxt-embftwo medicines, vitamins, herbs, and supplements. General instructions [...] 05/23/2005 Document Revised: 04/11/2019 Document Reviewed: 04/11/2019 [employer] Patient Education 2020 [employer]. 05/12/2022 14:03:59 Appendicitis, Adult Appendicitis, Adult Appendicitis [...] to care for your incision. Medicines Take fbfc-qqr-fbbxavv and prescription medicines only as told by [...] to keep your urine pale yellow. ?Take zcda-rsa-vscetsq or prescription medicines. ?Eat foods that are [...] 10/09/2006 Document Revised: 03/27/2019 Document Reviewed: 03/27/2019 [employer] Patient Education 2020 [employer]ry. Follow Up Care 05/11/2022 22:41:15 With:Raman Russell DO Address: [address] [place] [phone] When: Unknown Comments:Call for followup appointment [facility] 05-12-2022 Evaluation + Plan note Extrac [...] Adult Author:Wiliam Diaz Jr., DO Date:05/12/22 Plan [place] [employer]esthesiologists (ASA) physical status classification: [...] Date:06/14/2022 10:40:00 AM Scheduled Provider:Helene HAMILTON CNP Location:[facility] Appointment Type: Open Diagnostic Tests Pending * Basic Metabolic Panel 05/13/22 * CBC w/ Auto Diff 05/13/22 * PT & PTT 05/13/22 [facility]07-21-2022 NoteChief Complaint pt. presents to the [...] thoughts. Lab Results WBC: 19.3 E9/L High (05/11/22:09:00) RBC: 5.2 E12/L (05/11/22:09:00) HGB: 15.6 gm/dL (05/11/22::) Hct: 45.3 % (05/11/22::) MCV: 87.2 fL (05/11/22::) MCH: 30 pg (05/11/22::) MCHC: 34.4 gm/dL (05/11/22::) RDW: 13.2 % (05/11/22::) Platelet: 325 E9/L (05/11/22::) MPV: 8.9 fL (05/11/22::) Neutro Auto: 77.2 % High (05/11/22::) Lymph Auto: 16.5 % (05/11/22::00) [place] Auto: 4.7 % (05/11/22::) Eos Auto: 1.2 % (05/11/22::) Basophil Auto: 0.4 % (05/11/22::) Neutro Absolute: 14.9 E9/L High (05/11/22::) Lymph Absolute: 3.2 E9/L (05/11/22::) [place] Absolute: 0.9 E9/L (05/11/22::) Eos Absolute: 0.2 E9/L (05/11/22::) Basophil Absolute: 0.1 E9/L (05/11/22::) Glucose Lvl: 125 mg/dL (05/11/22:09:00) BUN: 15 mg/dL (05/11/22:09:00) Creatinine: 1 mg/dL (05/11/22:09:00) eGFR: >60 (05/11/22:09:00) eGFR AA: >60 (05/11/22:09:00) BUN/Creat Ratio: 15 (05/11/22:09:) Sodium Lvl: 137 mmol/L (05/11/22:09:00) Potassium Lvl: 3.8 mmol/L (05/11/22:09:00) Chloride: 102 mmol/L (05/11/22:09:00) CO2: 23 mmol/L (05/11/22:09:00) AGAP: 16 mEq/L (05/11/22:09:) Calcium Lvl: 9.5 mg/dL (05/11/22:09:) Alk Phos: 44 Int._Unit/L (05/11/22:09:) ALT: 34 Int._Unit/L (05/11/22:09:) AST: 29 Int._Unit/L (05/11/22::) Total Protein: 7.4 gm/dL (05/11/22:09:00) Albumin Lvl: 4.6 gm/dL (05/11/22:09:00) Globulin: 2.8 gm/dL (05/11/22:09:00) A/G Ratio: 1.6 (05/11/22:09:) Bili Total: 0.9 mg/dL (05/11/22:09:00) Bili Direct: 0.1 mg/dL (05/11/22:09:00) Bili Indirect: 0.8 mg/dL (05/11/22:09:00) Lipase Lvl: 39 unit/L (05/11/22:09:00) ABO/Rh: B POS (05/12/22 05:12:00) ABSC Gel Interp: Negative (05/12/22 05:12:00) Images CT abdomen and pelvis reviewed with radiology. She does have some free fluid along the right side near her appendix. Her appendix is hyperenhancing wit (more content not included)...[facility]Result Comment: Electronically Signed By: Raman Russell DO\.br\Date and Time Signed: 05/12/22 09:31 [id number] Hospital Discharge instructions Patient Education 03/08/2022 12:47:01 [...] height. This can be done either in [place] ([place] or metric measurements. Note that charts are available to help you find your BMI quickly and easily without having to do these calculations yourself. To calculate your BMI in [place] ([place] measurements, your health care provider will: [...] medical problems. BMI can be measured using Malian measurements or metric measurements. To interpret your [...] 06/20/2005 Document Revised: 09/21/2018 Document Reviewed: 08/22/2018 [employer] Patient Education 2020 Spry. 03/08/2022 12:46:57 Health Maintenance, Female Health Maintenance, [...] 04/23/2012 Document Revised: 10/02/2019 Document Reviewed: 10/02/2019 [employer] Patient Education 2020 [employer]. Follow Up Care 02/21/2022 15:20:41 With:Helene HAMILTON CNP Address: [address] [place] [phone] When:Within 1 Month(s) [facility] Evaluation + Plan note Future Appointments Appointment Date:04/05/2022 11:20:00 AM Scheduled Provider:Helene HAMILTON CNP Location:[facility] Appointment Type: Open [facility] Evaluation note* Diagnosis Well woman exam with routine gynecological exam Routine gynecological examination [facility] Diagnosis Missed menses 7 weeks gestation of , unspecified gestational age Encounter for supervision of normal first in first trimester documented [facility]* Diagnosis First trimester state, incidental 11 weeks gestation of documented [facility]* Diagnosis Screening, , for anatomic survey Encounter for anatomic survey Second trimester state, incidental 15 weeks gestation of STD exposure Vaginal discharge Leukorrhea, not specified as infective [facility] Narrative No data available for this section [facility] Hospital Discharge instructions No data available for this section [facility] InstructionsNot on filedocumented in this encounter [facility] [employer] SystemProgress note No data available for this section [facility] Summary Purpose Family History No Family History Records FoundNo Family History Records FoundNo Family History Records Found Advance Directives No Advanced Directives Records FoundNo Advanced Directives Records FoundNo Advanced Directives Records Found Additional Source Comments INFORMATION SOURCE (unrecogn ized section and content) DATE CREATED AUTHOR 05/26/2020 [facility] DATE CREATED AUTHOR AUTHOR'S ORGANIZ ATION 03/02/2023 [facility] DATE CREATED AUTHOR AUTHOR'S ORGANIZ ATION 12/24/2024 [facility] EPIC Care Team (unrecognized sect ion and content) Personnel Name: Helene HAMILTON CNP Address: [facility] [place] [address] Personnel Name: Helene HAMILTON CNP Address: [facility] [place] [address] Personnel Name: Helene HAMILTON CNP Address: Address: [facility] [place] [address] Personnel Name: Helene HAMILTON CNP Address: Address: [facility] Audie Taylor [address] Personnel Name: Helene HAMILTON CNP Address: Address: [address] [place] [address] Reason for Visit (unrecogniz ed section and content) Reason Comments Well Women Visit Reason Comments Amenorrhea Reason Comments Routine Visit FOR RECORDS PERTAINING TO PATIENTS WHO ARE [...] BE BASED ON THE PRIMARY CLINICAL RECORDS. [employer] provides no warranty or guarantee of the accuracy or completeness of information in this document.
[2024-12-30 11:32] LABS: Glucose 1 Hour 163 mg/dL (<130)
== END 2024-12-30 09:51 | disposition home or self-care (01) ==
LOC: LAB 09:52
PROVIDERS: Visit Provider Obstetrics & Gynecology
DX: Z13.1 Encounter for screening for diabetes mellitus (principal)
CPT/HCPCS: 36415; 82950

== ENCOUNTER 2025-01-20 09:42 | Outpatient (OUT) | payer BC, SELFPAY ==
[2025-01-20 10:23] LABS: Glucose Fasting 92 mg/dL (<95)
[2025-01-20 11:24] LABS: Glucose 1 Hour 205 mg/dL (<180)
[2025-01-20 12:13] LABS: Glucose 2 Hour 220 mg/dL (<155)
[2025-01-20 13:16] LABS: Glucose 3 Hour 107 mg/dL (<140)
== END 2025-01-20 09:43 | disposition home or self-care (01) ==
LOC: LAB 09:42
PROVIDERS: Visit Provider Obstetrics & Gynecology
DX: R73.09 Other abnormal glucose (principal)
CPT/HCPCS: 36415; 82951; 82952

== ENCOUNTER 2025-01-28 13:55 | Outpatient (OUT) | payer BC, SELFPAY | END 2025-01-28 13:56 | disposition home or self-care (01) | LOC: MN 13:55 | DX: O24.419 Gestational diabetes mellitus in pregnancy, unspecified control (principal); Z3A.00 Weeks of gestation of pregnancy not specified ==

== ENCOUNTER 2025-04-22 20:06 | Outpatient (OUT) | payer BC, SELFPAY ==
--- OUTSIDE RECORDS SUMMARY | 2025-04-22 20:12 | XMS_ITS | CCD ---
Author Organization [facility] Care Team Providers Care Emergency Room Clinician Name Role Phone Helene HAMILTON Darwin Primary Care Physician Unavailable Primary Care Provider Unavailabl e Unavailable Primary Care Provider Unavailabl e Unavailable Primary Care Provider Unavailabl e NONE, XXXX Primary Care Physician Unavailab le ELMO, Mik R Attending Unavailable ELMO, Mik R Admitting Unavailable ELMO, Mik R Attending Unavailable ELMO, Mik R Admitting Unavailable ELMO, Mik R Admitting Unavailable ELMO, Mik R Attending Unavailable ELMO, Mik R Admitting Unavailable ELMO, Mik R Attending Unavailable ELMO, Mik R Referring Unavailable Shahram Tao Consulting Unavailable Kirnus, Shahram Hopper Consulting Unavailable Kirnus, Shahram Hopper Consulting Unavailable ELMO, Mik R Admitting Unavailable ELMO, Mik R Attending Unavailable ELMO, MIK R Referring Unavailable BRUCE PEREZ Attending Unavailable ELMO, MIK R Referring Unavailable ELMO, MIK R Referring Unavailable ELMO, MIK R Referring Unavailable ELMO, MIK Attending Unavailable LINDSEY COBB Attending Unavailable ELMO, MIK Attending Unavailable ELMO, MIK Attending Unavailable ELMO, MIK Attending Unavailable ELMO, MIK Attending Unavailable ELMO, MIK Attending Unavailable ELMO, MIK Attending Unavailable ELMO, MIK Attending Unavailable Allergies Allergy Classification Reported Allergen(s) Allergy Type Date of Onset Reaction(s) Facility (20 sources) metFORMIN; Translations: [metformin] Drug Allergy 05-06-20 Rhabdomyolysis (disorder), Other (See Comments) [facility] (20 sources) Phentermine; Translations: [phentermine] Drug Allergy 11-25-20 24 Dyspnea (finding), Weal (disorder), Shortness of breath [facility] (20 sources) dulaglutide; Translations: [DULAGLUTIDE] Drug Allergy 05-06-20 [facility] (20 sources) Sulfites; Translations: [SULFITES] Propensity to adverse reactions 05-06-20 [facility] (20 sources) metFORMIN Drug Allergy 09-16-20 [facility] (20 sources) Other Propensity to adverse reactions 11-25-19 [facility] (9 sources) dulaglutide Drug Allergy 12-06-19 [facility] (20 sources) Gelatin; Translations: [GELATIN] Drug Allergy 12-06-19 [facility] (19 sources) metFORMIN Drug Allergy 12-31-19 [facility] (19 sources) Pollen Propensity to adverse reactions 12-31-19 Unknown [facility] (19 sources) Prednisone Allergy to substance 12-31-19 Rash [facility] (19 sources) Propranolol Drug Allergy 12-31-19 [facility] (3 sources) No Known Medication Allergies; Translations: [No Known Medication Allergies] Propensity to adverse reactions (disorder) [facility] Repository Medications Current Medications Medication Drug Class(es) Dates Sig (Normalized) Sig (Original) [id number] 200 actuat albuterol 0.09 mg/actuat metered dose inhaler (20 sources) beta2-Adrenergic Agonist Start: 04-04-2024 albuterol HFA 90 mcg/act inhaler 04/04/2024 Active Start: 10-19-2021 take 1 dose by inhal ation every four hours ProAir HFA 90 mcg/inh inhalation aerosol 2 puff(s), Inhalation, q4hr for wheezing, 1 EA, Refill(s) 11, [id number], 170, cm, 07/13/21 9:30:00 EDT, Height/Length Dosing, [...] q6hr for wheezing, 18 gram, Refill(s) 0, [facility] #[id number], 170, cm, 05/17/22 11:42:00 EDT, Height/Length Dosing, 95.1, kg, 05/17/22 11:42:00 EDT, Weight Dosing Start Date: 10/03/22 Status: Ordered Susy 24 Hour (9 sources) Start: 03-16-2021 Susy 24 Jennifer r See Instructions, 1 tab daily, Refills(s) 0 Start Date: 03/16/21 Status: Ordered Repeat number: 1 Start: 03-16-2021 Susy 24 Jennifer r See Instructions, 1 tab daily, Refills(s) 0 Start Date: 03/16/21 Status: Ordered aspirin 81 mg chewable tablet (6 sources) Platelet Aggregation Inhibitor, Nonsteroidal Anti-inflammatory Drug Start: 01-21-2025 aspirin 81 mg chewable tablet Chew 1 tablet (81 mg total) and swallow in the morning. 30 tablet 6 01/21/2025 Active Blood Glucose Monitoring Suppl (D-Care Glucometer) w/Device kit (17 sources) Start: 01-27-2025 End: 01-27-2026 Blood Glucose Monitoring Suppl (D-Care Glucometer) w/Device kit Indications: Gestational diabetes mellitus (GDM), antepartum, gestational diabetes method of control unspecified ([facility]) , Elevated glucose tolerance test 1 kit Daily Use four times daily to check FSBS. In the morning prior to breakfast & 1 hour after each meal for a total of 4times daily. 1 kit 01/27/2025 01/27/2026 Active Start: 01-27-2025 End: 01-27-[address] (D-Care Glucometer) w/Device kit Indications: Gestational diabetes mellitus (GDM), antepartum, gestational diabetes method of control unspecified , Elevated glucose tolerance test 1 kit Daily Use four times daily to check FSBS. In the morning prior to breakfast & 1 hour after each meal for a total of 4times daily. 1 kit 01/27/2025 01/27/2026 Active Blood Glucose Monitoring Sup pl (ReliOn True Met Air Gluc Meter) w/Device kit (15 sources) Start: 01-29-2025 End: 04-29-2025 Blood Glucose Monitoring Sup pl (ReliOn True Met Air Gluc Meter) w/Device kit Indications: Gestational diabetes mellitus (GDM), antepartum, gestational diabetes method of control unspecified ([facility]) , Elevated glucose tolerance test 1 kit in the morning and 1 kit at noon and 1 kit in the evening and 1 kit before bedtime. 1 kit 01/29/2025 04/29/2025 Active Start: 01-29-2025 End: 04-29-20[address] (ReliOn True Met Air Gluc Meter) w/Device kit Indications: Gestational diabetes mellitus (GDM), antepartum, gestational diabetes method of control unspecified , Elevated glucose tolerance test 1 kit in the morning and 1 kit at noon and 1 kit in the evening and 1 kit before bedtime. 1 kit 01/29/2025 04/29/2025 Active 24 hr buPROPion hydrochloride 150 mg extended release oral tablet (9 sources) Aminoketone Start: 06-20-2022 take 1 tablet by mouth every twenty-four hours Wellbutrin XL 150 mg/24 hours Tab-ER 150 mg = 1 tab(s), Oral, q24hr, # 90 tab(s), Refills(s) 1, Pharmacy: [facility] #[id number], 170, cm, 05/17/22 11:42:00 EDT, Height/Length Dosing, 95.1, kg, 05/17/22 11:42:00 EDT, Weight Dosing Start Date: 06/20/22 Status: Ordered Quantity: 90.0 Unit: tab(s) Repeat number: 2 Start: 03-08-2022 take 1 tablet by volodymyr th every twenty-four hours Wellbutrin XL 150 mg/24 hours Tab-ER 150 mg = 1 tab(s), Oral, q24hr, # 30 tab(s), Refills(s) 2, Pharmacy: [facility] #[id number], 170, cm, 03/08/22 10:25:00 EDT, Height/Length Dosing, 98.4, kg, 03/08/22 10:25:00 EDT, Weight Dosing Start Date: 03/08/22 Status: Ordered Start: 03-08-2022 take 1 tablet by volodymyr th every twenty-four hours Wellbutrin XL 150 mg/24 hours Tab-ER 150 mg = 1 tab(s), Oral, q24hr, # 30 tab(s), Refills(s) 2, Pharmacy: [facility] #[id number], 170, cm, 03/08/22 10:25:00 EDT, Height/Length Dosing, 98.4, kg, 03/08/22 10:25:00 EDT, Weight Dosing Start Date: 03/08/22 Status: Ordered cetirizine hydrochloride 10 mg oral tablet (20 sources) Histamine-1 Receptor Antagonist cetirizine (ZyrTEC) 10 MG tablet Take by mouth Active insulin isophane, human 100 unt/ml injectable suspension (8 sources) Start: End: inject 5 [IU] by subcutaneous injection in the morning insulin NPH, Isophane, (HumuLIN N,NovoLIN N) 100 UNIT/ML injection Indications: Gestational Diabetes Inject 5 Units under the skin in the morning and 5 Units in the evening. Inject before meals. 3 mL 04/08/2025 05/08/2025 Active insulin, regular, human 100 unt/ml injectable solution (8 sources) Insulin Start: End: inject 5 [IU] by subcutaneous injection once in the morning, then inject 5 [IU] by subcutaneous injection once in the evening insulin regular (HumuLIN R,NovoLIN R) 100 UNIT/ML injection Indications: Gestational diabetes mellitus (GDM), antepartum, gestational diabetes method of control unspecified ([facility]) 5 units sub q in the am and 5 units sub q in the evening 3 mL 3 04/08/2025 04/08/2026 Active isopropyl alcohol 0.7 ml/ml medicated pad (20 sources) Start: Alcohol Swabs (Alcohol Prep Pad) 70 % pads Indications: Gestational diabetes mellitus (GDM), antepartum, gestational diabetes method of control unspecified ([facility]) , Elevated glucose tolerance test Apply 1 Pad topically Daily Use four times daily to check FSBS. 150 each 3 01/29/2025 Active lisdexamfetamine dimesylate 50 mg oral capsule (12 sources) Central Nervous System Stimulant Start: 022 End: 025 take 1 capsule by mouth once daily in the morning Vyvanse 50 mg oral capsule 50 mg, 1 cap(s), Oral, qAM, Refill(s) 0 Start Date: 10/03/22 Status: Ordered Repeat number: 1 magnesium oxide 400 mg oral tablet (19 sources) Start: 025 take 1 tablet by mouth once daily MAGnesium-Oxide 400 (240 Mg) MG tablet Indications: headache, antepartum ([facility]) Take 1 tablet by mouth once daily 30 tablet 03/21/2025 Active Start: 12-25-2024 End: 01-24-2025 take 1 tablet by mouth once daily magnesium oxide (Mag-Ox) 400 MG tablet Indications: headache, antepartum Take 1 tablet (400 mg) by mouth Daily 30 tablet 3 12/25/2024 01/24/2025 Active melatonin 1 mg oral tablet (12 sources) Start: 10-20-2020 take 1 tablet by mouth once daily at bedtime as needed melatonin 1 mg oral tablet 1 mg = 1 tab(s), Oral, Once a day (at bedtime), PRN for insomnia, # 90 tab(s), Refills(s) 0 Start Date: 10/20/20 Status: Ordered Quantity: 90.0 Unit: tab(s) Repeat number: 1 End: 09-16-2024 melatonin 5 MG tablet Take b y mouth 09/16/2024 Discontinued (Other) montelukast 10 mg oral tablet (13 sources) Leukotriene Receptor Antagonist Start: 06-22-2021 End: 01-27-2025 take 1 tablet by mouth once daily in the evening Singulair 10 mg Tab 10 mg = 1 tab(s), Oral, qPM, # 90 tab(s), Refills(s) 3, Pharmacy: [facility] #[id number], 170, cm, 05/17/22 11:42:00 EDT, Height/Length Dosing, 95.1, kg, 05/17/22 11:42:00 EDT, Weight Dosing Start Date: 10/03/22 Status: Ordered Quantity: 90.0 Unit: tab(s) Repeat number: 4 naltrexone hydrochloride 50 mg oral tablet (8 sources) Opioid Antagonist Start: 04-12-2022 take 1 tablet by mouth once daily naltrexone 50 mg oral tablet See Instructions, 1 tablet daily, # 90 tab(s), Refills(s) 0, Pharmacy: [facility] #[id number], 170, cm, 04/12/22 11:02:00 EDT, Height/Length Dosing, 96.7, kg, 04/12/22 11:02:00 EDT, Weight Dosing Start Date: 04/12/22 Status: Ordered Quantity: 90.0 Unit: tab(s) Repeat number: 1 NIFEdipine 60 mg osmotic 24 hr extended release oral tablet (20 sources) Dihydropyridine Calcium Channel Berto Start: 02-03-2025 End: 06-03-2025 take 1 tablet by mouth once daily NIFEdipine XL (Procardia XL) 60 MG 24 hr tablet Indications: Blood pressure check Take 1 tablet (60 mg) by mouth Daily Do not crush, chew, or split. 30 tablet 3 02/03/2025 06/03/2025 Active Start: 01-17-2025 End: 01-17-2026 take 1 tablet by mouth once daily NIFEdipine XL (Procardia XL) 30 MG 24 hr tablet Indications: Elevated blood pressure affecting , antepartum Take 1 tablet (30 mg) by mouth Daily Do not crush, chew, or split. 30 tablet 11 01/17/2025 01/27/2025 Discontinued take 1 tablet by volodymyr th every twenty-four hours at bedtime NIFEdipine XL (PROCARDIA XL) 30 mg 24 hr tablet Take 1 tablet (30 mg total) by mouth in the morning and at bedtime. Active Non-Formulary Medication (9 sources) Start: 10-20-2020 Non-Formulary Medication Vitamin D 800 IU daily Start Date: 10/20/20 Status: Ordered Repeat number: 1 Start: 10-20-2020 Non-Formulary Medication Vitamin D 800 IU daily Start Date: 10/20/20 Status: Ordered Ovasitol (9 sources) Start: 10-20-2020 Ovasitol = 1 p acket(s), Oral, BID, Refills(s) 0 Start Date: 10/20/20 Status: Ordered Repeat number: 1 Start: 10-20-2020 Ovasitol = 1 p acket(s), Oral, BID, Refills(s) 0 Start Date: 10/20/20 Status: Ordered oxyCODONE hydrochloride 5 mg oral tablet (8 sources) Opioid Agonist Start: 05-12-2022 take 1 tablet by mouth every six hours as needed for pain oxyCODONE 5 mg Tab 5 mg = 1 tab(s), Oral, q6hr, PRN for pain, # 10 tab(s), Refills(s) 0, Pharmacy: [facility] #[id number], 170, cm, 05/11/22 22:56:00 EDT, Height/Length Dosing, 89, kg, 05/11/22 22:56:00 EDT, Weight Dosing Start Date: 05/12/22 Status: Ordered Quantity: 10.0 Unit: tab(s) Repeat number: 1 phentermine hydrochloride 37.5 mg oral tablet (1 source) Sympathomimetic Amine Anorectic Start: 03-08-2022 take 1 tablet by mouth once daily Adipex-P 37.5 mg Tab 37.5 mg = 1 tab(s), Oral, Daily, Adipex #1; OARRS reviewed; 30 days supply; DX E66.9, # 30 tab(s), Refills(s) 0, Pharmacy: [facility] #[id number], 170, cm, 03/08/22 10:25:00 EDT, Height/Length Dosing, 98.4, kg, 03/08/22 10:25:00 EDT, Weight Dosing Start Date: 03/08/22 Status: Ordered no115/iron/folic acid ( 19 ORAL) (6 sources) take 1 tablet by mouth once daily no115/iron/folic acid ( 19 ORAL) Take 1 tablet by mouth once daily. Active propranolol hydrochloride 40 mg oral tablet (5 sources) beta-Adrenergic Berto Start: 10-03-2022 propranolol 40 mg Tab Refills(s) 0 Start Date: 10/03/22 Status: Ordered Repeat number: 1 0.25 mg, 0.5 mg dose 1.5 ml semaglutide 1.34 mg/ml pen injector (8 sources) Start: 05-12-2022 inject 0.5 mg by subcutaneous injection every week Ozempic 2 mg/1.5 mL (0.25 mg or 0.5 mg dose) subcutaneous solution 0.5 mg, SubCutaneous, qWeek, 1 EA, Refill(s) 5, [facility] #[id number], 170, cm, 05/11/22 22:56:00 EDT, Height/Length Dosing, 89, kg, 05/11/22 22:56:00 EDT, Weight Dosing Start Date: 05/12/22 Status: Ordered Quantity: 1.0 Unit: EA Repeat number: 6 spironolactone 25 mg oral tablet (9 sources) Aldosterone Antagonist Start: 06-22-2021 take 1 tablet by mouth twice daily spironolactone 25 mg Tab 25 mg = 1 tab(s), Oral, BID, # 180 tab(s), Refills(s) 3, Pharmacy: [facility], 170, cm, 04/06/21 9:19:00 EDT, Height/Length Dosing, 90, kg, 04/06/21 9:19:00 EDT, Weight Dosing Start Date: 06/22/21 Status: Ordered Quantity: 180.0 Unit: tab(s) Repeat number: 4 tretinoin 0.0004 mg/mg topical gel (6 sources) Retinoid Start: 02-17-2023 apply 1 [IU] topically once daily at bedtime tretinoin Top 0.04% Gel 1 sonya, Topical, Once a day (at bedtime), 45 gram, Refill(s) 0, [facility] #[id number], 170, cm, 05/17/22 11:42:00 EDT, Height/Length Dosing, 95.1, kg, 05/17/22 11:42:00 EDT, Weight Dosing Start Date: 02/17/23 Status: Ordered Quantity: 45.0 Unit: g Repeat number: 1 Start: 12-02-2022 apply 1 [IU] topical ly once daily at bedtime tretinoin Top 0.1% Crm 1 sonya, Topical, Once a day (at bedtime), 20 gram, Refill(s) 6, [facility] #[id number], 170, cm, 05/17/22 11:42:00 EDT, Height/Length Dosing, 95.1, kg, 05/17/22 11:42:00 EDT, Weight Dosing Start Date: 12/02/22 Status: Ordered Quantity: 20.0 Unit: g Repeat number: 7 valACYclovir 1000 mg oral tablet (9 sources) Herpesvirus Nucleoside Analog DNA Polymerase Inhibitor, [...] hours, # 4 tab(s), Refills(s) 1, Pharmacy: [facility], 170, cm, 11/03/20 13:01:00 EST, Height/Length Dosing, 94.7, kg, 11/03/20 13:01:00 EST, Weight Dosing Start Date: 11/03/20 Status: Ordered Quantity: 4.0 Unit: tab(s) Repeat number: 2 Start: 11-03-2020 take 1 tablet by volodymyr th twice daily, then take 1 tablet by mouth every twelve hours Valtrex 1 g Tab 1 gm = 1 tab(s), Oral, BID, Take one at the start of cold sore and repeat in 12 hours, # 4 tab(s), Refills(s) 1, Pharmacy: [facility], 170, cm, 11/03/20 13:01:00 EST, Height/Length Dosing, 94.7, kg, 11/03/20 13:01:00 EST, Brandon... Start Date: 11/03/20 Status: Ordered Ventolin HFA 90 mcg/inh Aerosol (4 sources) Start: 10-18-2021 take 1 puff(s) by inhalation once for wheezing Ventolin HFA 90 mcg/inh Aerosol 1 puff(s), Inhalation, Once for wheezing, 6.7 gm, Refill(s) 2, [facility] #[id number], 170, cm, 07/13/21 9:30:00 EDT, Height/Length Dosing, 88.5, kg, 07/13/21 9:30:00 EDT, Weight Dosing Start Date: 10/18/21 Status: Ordered Ventolin HFA 90 mcg/inh Aerosol-Adpt (3 sources) Start: 10-28-2022 take 2 puff(s) by inhalation every six hours for wheezing Ventolin HFA 90 mcg/inh Aerosol-Adpt 2 puff(s), Inhalation, q6hr for wheezing, 18 gram, Refill(s) 5, [facility] #[id number], 170, cm, 05/17/22 11:42:00 EDT, Height/Length Dosing, 95.1, kg, 05/17/22 11:42:00 EDT, Weight Dosing Start Date: 10/28/22 Status: Ordered Quantity: 18.0 Unit: g Repeat number: 6 Vitamin B Complex oral tablet (9 sources) Start: 10-20-2020 take 1 tablet by mouth once daily Vitamin B Complex oral tablet 1 tab(s), Oral, Daily, Refill(s) 0 Start Date: 10/20/20 Status: Ordered Repeat number: 1 Start: 10-20-2020 take 1 tablet by volodymyr th once daily Vitamin B Complex oral tablet 1 tab(s), Oral, Daily, Refill(s) 0 Start Date: 10/20/20 Status: Ordered Zofran ODT 4 mg Tab-Dis (12 sources) Start: 10-12-2022 take 1 tablet by mouth every eight hours as needed for nausea Zofran ODT 4 mg Tab-Dis 4 mg = 1 tab(s), Oral, q8hr, PRN Nausea/Vomiting, # 12 tab(s), Refills(s) 0, Pharmacy: [facility] #[id number], 170, cm, 05/17/22 11:42:00 EDT, Height/Length Dosing, 95.1, kg, 05/17/22 11:42:00 EDT, Weight Dosing Start Date: 10/12/22 Status: Ordered Quantity: 12.0 Unit: tab(s) Repeat number: 1 Indication: Noninfective gastroenteritis and colitis, unspecified Start: 05-12-2022 take 1 tablet by volodymyr th every eight hours as needed for nausea Zofran ODT 4 mg Tab-Dis 4 mg = 1 tab(s), Oral, q8hr, PRN Nausea/Vomiting, # 30 tab(s), Refills(s) 1, Pharmacy: [facility] #[id number], 170, cm, 05/11/22 22:56:00 EDT, Height/Length Dosing, 89, kg, 05/11/22 22:56:00 EDT, Weight Dosing Start Date: 05/12/22 Status: Ordered Quantity: 30.0 Unit: tab(s) Repeat number: 2 Start: 05-12-2022 take 1 tablet by volodymyr th every eight hours as needed for nausea Zofran ODT 4 mg Tab-Dis 4 mg = 1 tab(s), Oral, q8hr, PRN Nausea/Vomiting, # 30 tab(s), Refills(s) 1, Pharmacy: [facility] #[id number], 170, cm, 05/11/22 22:56:00 EDT, Height/Length Dosing, 89, kg, 05/11/22 22:56:00 EDT, Weight Dosing Start Date: 05/12/22 Status: Ordered Start: 12-22-2021 take 1 tablet by volodymyr th every eight hours as needed for nausea Zofran ODT 4 mg Tab-Dis 4 mg = 1 tab(s), Oral, q8hr, PRN Nausea/Vomiting, # 12 tab(s), Refills(s) 0, Pharmacy: [facility] #[id number], 170, cm, 12/22/21 7:22:00 EST, Height/Length Dosing, 93.3, kg, 12/22/21 7:22:00 EST, Weight Dosing Start Date: 12/22/21 Status: Ordered Completed/Discontinued Medications Medication Drug Class(es) Dates Sig (Normalized) Sig (Original) ALPRAZolam 0.5 mg oral tablet (3 sources) Benzodiazepine Start: 04-30-2024 End: 09-16-2024 ALPRAZolam (Xanax) 0.5 MG tablet every 12 (twelve) hours 04/30/2024 09/16/2024 Discontinued (Other) fluconazole 150 mg oral tablet (7 sources) Azole Antifungal Start: 07-03-2022 Diflucan 150 mg Tab 150 mg = 1 tab(s), Oral, Once, Take 1 tab PO x 1 dose, may repeat in 72 hours for persistent symptoms, # 2 tab(s), Refills(s) 0, Prophylaxis, Pharmacy: [facility] #[id number], 170, cm, 05/17/22 11:42:00 EDT, Height/Length Dosing, 95.1, kg, 05/17/22 11:42:00 EDT, Weight Dosing Start Date: 07/03/22 Status: Ordered Quantity: 2.0 Unit: tab(s) Repeat number: 1 Inositol-D Chiro-Inositol (OVASITOL PO) (3 sources) End: 09-16-2024 Inositol-D Chiro-Inositol (OVASITOL PO) Take by mouth 09/16/2024 Discontinued (Other) Inositol-D Chiro -Inositol (OVASITOL PO) Take by mouth Active ProAir HFA 90 mcg/inh inhalation aerosol (1 source) Start: 10-19-2021 take 1 dose by inhalation every four hours ProAir HFA 90 mcg/inh inhalation aerosol 2 puff(s), Inhalation, q4hr for wheezing, 1 EA, Refill(s) [facility] #[id number], 170, cm, 07/13/21 9:30:00 EDT, Height/Length Dosing, 88.5, kg, 07/13/21 9:30:00 EDT, Weight Dosing Start Date: 10/19/21 Status: Ordered Problems Active Problems Problem Classification Problem Date Documented Date Episodic/Chronic Abdominal pain (7 sources) Abdominal pain; Translations: [Unspecified abdominal pain] Onset: 05-12-2022 Episodic Administrative/social admission (5 sources) Patient encounter status; Translations: [Persons encountering health services in other specified circumstances] Onset: 03-08-2022 Episodic Allergic reactions (20 sources) Allergic condition; Translations: [Hypersensitivity disposition] 04-06-2021 Episodic Anxiety disorders (9 sources) Anxiety 10-20-2020 Chronic Diabetes mellitus without complication (15 sources) Prediabetes; Translations: [Abnormal glucose tolerance test] 11-03-2020 Episodic Diabetes or abnormal glucose tolerance complicating ; childbirth; or the puerperium (20 sources) Abnormal glucose complicating ; Translations: [Abnormal glucose tolerance of mother, unspecified as to episode of care or not applicable] Onset: 01-21-2025 01-21-2025 Episodic Diseases of white blood cells (1 source) Leukocytosis; Translations: [Elevated white blood cell count, unspecified] Onset: 05-12-2022 Chronic Disorders of lipid metabolism (9 sources) Hyperlipidemia 11-03-2020 Chronic Essential hypertension (4 sources) Hypertensive disorder; Translations: [Essential (primary) hypertension] Onset: 04-21-2025 04-21-2025 Chronic Hypertension complicating ; childbirth and the puerperium (20 sources) Hypertension complicating ; Translations: [Unspecified maternal hypertension, unspecified trimester] Onset: 01-16-2025 01-16-2025 Chronic Hypertension complicating ; childbirth and the puerperium (4 sources) -induced hypertension; Translations: [Gestational [-induced] hypertension without significant proteinuria, unspecified trimester] 01-27-2025 Episodic Immunizations and screening for infectious disease (2 sources) Exposure to sexually transmissible disorder; Translations: [Contact with and (suspected) exposure to infections with a predominantly sexual mode of transmission] 12-23-2024 Episodic Menstrual disorders (7 sources) Secondary dysmenorrhea; 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] Onset: 10-03-2022 10-03-2022 Chronic Mood disorders (9 sources) Depressive disorder 10-20-2020 Chronic Nausea and vomiting (6 sources) Nausea and vomiting; Translations: [Nausea with vomiting, unspecified] Onset: 10-03-2022 10-03-2022 Episodic Nutritional deficiencies (9 sources) Vitamin D deficiency 01-28-2021 Chronic Other aftercare (1 source) Long-term current use of drug therapy; Translations: [Other [place] [facility] (current[facility] drug therapy] Onset: 03-08-2022 Episodic Other aftercare (7 sources) Postoperative visit 05-17-2022 Episodic Other complications of (16 sources) Multigravida of advanced maternal age; Translations: [Supervision of elderly multigravida, second trimester] Onset: 04-21-2025 01-21-2025 Episodic Other complications of (1 source) Supervision of elderly multigravida, second trimester; Translations: [Supervision of elderly multigravida, second trimester] Onset: 01-21-2025 Episodic Other endocrine disorders (11 sources) Polycystic ovary syndrome; Translations: [Polycystic ovarian syndrome] Onset: 03-08-2022 Chronic Other endocrine disorders (9 sources) Polycystic ovaries 06-19-2019 Chronic Other female [...] 11-03-2020 Chronic Other and delivery including normal (20 sources) ; Translations: [Encounter for supervision of normal , unspecified, unspecified trimester] Onset: 04-21-2025 10-24-2024 Episodic Other screening for suspected conditions (not mental disorders or infectious disease) (1 source) Encounter for other specified screening; Translations: [Encounter for other specified screening] Onset: 01-21-2025 Episodic Residual codes; unclassified (1 source) Gestation period, 7 weeks; Translations: [Less than 8 weeks gestation of ] 10-24-2024 Episodic Residual codes; unclassified (2 sources) Gestation period, 11 weeks; Translations: [11 weeks gestation of ] 11-25-2024 Episodic Residual codes; unclassified (2 sources) Gestation period, 15 weeks; Translations: [15 weeks gestation of ] 12-23-2024 Episodic Residual codes; unclassified (1 source) Gestation period, 19 weeks; Translations: [19 weeks gestation of ] 01-21-2025 Episodic Residual codes; unclassified (2 sources) Gestation period, 20 weeks; Translations: [20 weeks gestation of ] 01-27-2025 Episodic Residual codes; unclassified (2 sources) Gestation period, 24 weeks; Translations: [24 weeks gestation of ] 02-24-2025 Episodic Residual codes; unclassified (2 sources) Gestation period, 28 weeks; Translations: [28 weeks gestation of ] 03-24-2025 Episodic Residual codes; unclassified (1 source) 19 weeks gestation of ; Translations: [19 weeks gestation of ] Onset: 01-21-2025 Episodic Residual codes; unclassified (2 sources) Gestation period, 30 weeks; Translations: [30 weeks gestation of ] 04-08-2025 Episodic Residual codes; unclassified (2 sources) Gestation period, 31 weeks; Translations: [31 weeks gestation of ] 04-14-2025 Episodic Residual codes; unclassified (2 sources) Gestation period, 32 weeks; Translations: [32 weeks gestation of ] 04-21-2025 Episodic Unclassified (9 sources) Drug therapy finding 11-03-2020 Unclassified (9 sources) Patient encounter status 11-03-2020 Unclassified (1 source) AMA Onset: 01-21-2025 Viral infection (9 sources) 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 Episodic Past or Other Problems Problem Classification Problem Date Documented Da te Episodic/Chronic Hemorrhage during ; abruptio placenta; placenta previa (20 sources) Vaginal bleeding complicating early ; Translations: [Hemorrhage in early , unspecified] Onset: 11-06-2024 11-06-2024 Episodic Other complications of (20 sources) Headache; Translations: [Other specified related conditions, unspecified trimester] Onset: 12-25-2024 12-25-2024 Episodic Unclassified (2 sources) Prediabetes in mother during 01-21-2025 Viral infection (1 source) Disease caused by 2019-nCoV; Translations: [COVID-19] Results Test Name Value Interpretation Reference Range Facility Urinalysis macro (dipstick) panel (U)on 04-21-2025 Bilirubin, UA Negative Negative - 4(70) +++ mg/dL [facility] Blood, UA Negative Negative - 50 Albin/mcL [facility] Clarity, UA Clear [facility] Color, UA Yellow [facility] Glucose, UA Negative Negative - 1999(110) ++++ mg/dL [facility] Interpretation and review of laboratory results Normal [facility] Ketones, UA Positive Negative - 160(16) ++++ mg/dL [facility] Leukocytes, UA Negative Negative - 500+++ Jack/mcL [facility] Nitrite, UA Negative Negative - Positive [facility] pH, UA 7 5 - 9 [facility] Protein, UA Negative Negative - 2000(20) ++++ mg/dL [facility] Spec Grav, UA 1.015 1 - 1.03 [facility] Urobilinogen, UA 0.2 0.2 - 12 mg/dL [facility] Urinalysis macro (dipstick) panel (U)on 04-14-2025 Bilirubin, UA Negative Negative - 4(70) +++ mg/dL [facility] Blood, UA Negative Negative - 50 Albin/mcL [facility] Clarity, UA Clear [facility] Color, UA Yellow [facility] Glucose, UA Negative Negative - 1999(110) ++++ mg/dL [facility] Interpretation and review of laboratory results Abnormal [facility] Ketones, UA Negative Negative - 160(16) ++++ mg/dL [facility] Leukocytes, UA Negative Negative - 500+++ Jack/mcL [facility] Nitrite, UA Negative Negative - Positive [facility] pH, UA 6.5 5 - 9 [facility] Protein, UA Negative Negative - 1999(20) ++++ mg/dL [facility] Spec Grav, UA 1.005 1 - 1.03 [facility] Urobilinogen, UA 1.0 0.2 - 12 mg/dL [facility] Urinalysis macro (dipstick) panel (U)on 04-08-2025 Bilirubin, UA Negative Negative - 4(70) +++ mg/dL [facility] Blood, UA Negative Negative - 50 Albin/mcL [facility] Clarity, UA Clear [facility] Color, UA Yellow [facility] Glucose, UA Negative Negative - 1999(110) ++++ mg/dL [facility] Interpretation and review of laboratory results Abnormal [facility] Ketones, UA Positive Negative - 160(16) ++++ mg/dL [facility] Comment on above: 40 Leukocytes, UA Trace Negative - 500+++ Jack/mcL [facility] Nitrite, UA Negative Negative - Positive [facility] pH, UA 7 5 - 9 [facility] Protein, UA Positive Negative - 1999(20) ++++ mg/dL [facility] Comment on above: 30 Spec Grav, UA 1.015 1 - 1.03 [facility] Urobilinogen, UA 0.2 0.2 - 12 mg/dL [facility] Urinalysis macro (dipstick) panel (U)on 03-24-2025 Bilirubin, UA Negative Negative - 4(70) +++ mg/dL [facility] Blood, UA Negative Negative - 50 Albin/mcL [facility] Clarity, UA Clear [facility] Color, UA Yellow [facility] Glucose, UA Negative Negative - 1999(110) ++++ mg/dL [facility] Interpretation and review of laboratory results Normal [facility] Ketones, UA Negative Negative - 160(16) ++++ mg/dL [facility] Leukocytes, UA Negative Negative - 500+++ Jack/mcL [facility] Nitrite, UA Negative Negative - Positive [facility] pH, UA 7 5 - 9 [facility] Protein, UA Negative Negative - 1999(20) ++++ mg/dL [facility] Spec Grav, UA 1.01 1 - 1.03 [facility] Urobilinogen, UA 0.2 0.2 - 12 mg/dL [facility] Urinalysis macro (dipstick) panel (U)on 02-24-2025 Bilirubin, UA Negative Negative - 4(70) +++ mg/dL [facility] Blood, UA Negative Negative - 50 Albin/mcL [facility] Clarity, UA Clear [facility] Color, UA Yellow [facility] Glucose, UA Negative Negative - 1999(110) ++++ mg/dL [facility] Interpretation and review of laboratory results Normal [facility] Ketones, UA Negative Negative - 160(16) ++++ mg/dL [facility] Leukocytes, UA Negative Negative - 500+++ Jack/mcL [facility] Nitrite, UA Negative Negative - Positive [facility] pH, UA 6.5 5 - 9 [facility] Protein, UA Negative Negative - 1999(20) ++++ mg/dL [facility] Spec Grav, UA 1.025 1 - 1.03 [facility] Urobilinogen, UA 1.0 0.2 - 12 mg/dL [facility] CHEMISTRYOrdered By: Hien Khan on 02-04-2025 Hrs Francisco 24 1 Invalid Interpretation Code [facility] Chem S U24 ProteinOrdered By: VerastemE [employer] SYSTEM on 02-04-2025 U24 Total Protein 224 mg/24hr High 28-141 [facility] Comment on above: Performed By: #### 1 [id number] #### [facility]rez [facility] [address] [place] [address] Ur Total Protein 8.8 mg/dL Invalid Interpretation Code [facility] Comment on above: Performed By: #### 1 [id number] #### [facility]rell [facility] [address] [place] [address] U24 Total Volon 02-04-2025 Hrs Francisco 24 Invalid Interpretation Code [facility] Comment on above: Order Comment: Order added by Discern Expert Performed By: #### 2 [id number] #### [facility] [address] [place] [address] U24 Total VolOrdered By: Col loyda Khan on 02-04-2025 Total Volume 2550 mL Invalid Interpretation Code [facility] Chem S Comment on above: Order Comment: Order added by Discern Expert Performed By: #### 2 [id number] #### [facility] [address] [place] [address] BNPon 01-27-2025 Int Ctr BNP Pass Normal [facility] Comment on above: Performed By: #### 1 [id number] #### [facility] [address] [place] [address] Natriuretic peptide B (Bld) [Mass/Vol] pg/mL Low 5-80 [facility] Comment on above: Performed By: #### 1 [id number] #### [facility] [address] [place] [address] CBC w/ Auto Diffon 5 Basophils/100 WBC (Bld) 0.3 % Normal 0.0-2.0 [facility] Comment on above: Performed By: #### 2 [id number] #### [facility] [address] [place] [address] Basophils/Leukocytes Auto (Bld) [Pure # fraction] 0.0 E9/L Normal 0.0-0.2 [facility] Comment on above: Performed By: #### 2 [id number] #### [facility] [address] [place] [address] Eosinophils (Bld) [#/Vol] 0.1 E9/L Normal 0.0-0.5 [facility] Comment on above: Performed By: #### 2 [id number] #### [facility] [address] [place] [address] Eosinophils/100 WBC (Bld) 0.9 % Normal 0.0-8.0 [facility] Comment on above: Performed By: #### 2 [id number] #### [facility] [address] [place] [address] Erythrocyte distribution width (RBC) [Ratio] 13.5 % Normal 10.9-14.2 [facility] Comment on above: Performed By: #### 2 [id number] #### [facility] [address] [place] [address] Hematocrit (Bld) [Volume fraction] 39.2 % Normal 34.0-46.0 [facility] Comment on above: Performed By: #### 2 [id number] #### [facility] [address] [place] [address] Hemoglobin (Bld) [Mass/Vol] 13.2 g/dL Normal 12.0-16.0 [facility] Comment on above: Performed By: #### 2 [id number] #### [facility] [address] [place] [address] Lymphocytes (Bld) [#/Vol] 2.1 E9/L Normal 1.0-4.0 [facility] Comment on above: Performed By: #### 2 [id number] #### [facility] [address] [place] [address] Lymphocytes/100 WBC (Bld) 14.3 % Normal 14.0-50.0 [facility] Comment on above: Performed By: #### 2 [id number] #### [facility] [address] [place] [address] MCH (RBC) [Entitic mass] 29.0 pg Normal 27.0-34.0 [facility] Comment on above: Performed By: #### 2 [id number] #### [facility] [address] [place] [address] MCHC (RBC) [Mass/Vol] 33.7 g/dL Normal 31.4-36.0 [facility] Comment on above: Performed By: #### 2 [id number] #### [facility] [address] [place] [address] MCV (RBC) [Entitic vol] 86.2 fL Normal 80.0-100.0 [facility] Comment on above: Performed By: #### 2 [id number] #### [facility] [address] [place] [address] Monocytes (Bld) [#/Vol] 0.6 E9/L Normal 0.2-1.0 [facility] Comment on above: Performed By: #### 2 [id number] #### [facility] [address] [place] [address] Neutrophils (Bld) [#/Vol] 11.8 E9/L High 2.0-7.5 [facility] Comment on above: Performed By: #### 2 [id number] #### [facility] [address] [place] [address] Neutrophils/100 WBC (Bld) 80.6 % High 36.0-75.0 [facility] Comment on above: Performed By: #### 2 [id number] #### [facility] [address] [place] [address] Platelet 302.0 E9/L Normal 150.0-500.0 [facility] Comment on above: Performed By: #### 2 [id number] #### [facility] [address] [place] [address] Platelet mean volume (Bld) [Entitic vol] 9.4 fL Normal 6.4-10.8 [facility] Comment on above: Performed By: #### 2 [id number] #### [facility] [address] [place] [address] RBC (Bld) [#/Vol] 4.6 E12/L Normal 4.3-5.9 [facility] Comment on above: Performed By: #### 2 [id number] #### [facility] [address] [place] [address] WBC corrected for nucl RBC Auto (Bld) [#/Vol] 14.6 E9/L High 4.0-11.0 [facility] Comment on above: Performed By: #### 2 [id number] #### [facility] [address] [place] [address] CHEMISTRYOrdered By: SYSTEM SYSTEM on 01-27-2025 Albumin [Mass/Vol] 3.9 g/dL Normal 3.3 - 5.0 gm/dL [facility] Albumin/Globulin [Mass ratio] 1.2 {ratio} Normal 1.1 - 2.2 [facility] ALP [Catalytic activity/Vol] 46 [iU]/d Normal 21 - 98 Int._Unit/L [facility] ALT No additional P-5'-P [Catalytic activity/Vol] 18 [iU]/d Normal 6 - 46 Int._Unit/L [facility] Anion gap [Moles/Vol] 12 mmol/L Normal 6 - 16 mEq/L R [facility] AST [Catalytic activity/Vol] 19 [iU]/d Normal 5 - 43 Int._Unit/L [facility] Bilirubin [Mass/Vol] 0.4 mg/dL Normal 0.0 - 1 .1 mg/dL [facility] Calcium [Mass/Vol] 9.5 mg/dL Normal 8.9 - 11. 1 mg/dL [facility] Chloride [Moles/Vol] 104 mmol/L Normal 101 - 1 11 mmol/L [facility] CO2 [Moles/Vol] 22 mmol/L Normal 21 - 31 mmol/L [facility] Creatinine [Mass/Vol] 0.5 mg/dL Normal 0.5 - 1.3 mg/dL [facility] eGFR 124 mL/min/1.73 m2 Normal >=59mL/mi n/1. 73 m2 [facility] Globulin (S) [Mass/Vol] 3.2 g/dL Normal 1.4 - 4.0 gm/dL [facility] Glucose [Mass/Vol] 131 mg/dL Normal 55 - 199 mg/dL [facility] LDH 158 [iU]/d Normal 93 - 218 Int._Unit/L [facility] Potassium [Moles/Vol] 3.4 mmol/L Low 3.5 - 5.3 mmol/L [facility] Protein [Mass/Vol] 7.1 g/dL Normal 6.0 - 7.8 gm/dL [facility] Sodium [Moles/Vol] 135 mmol/L Normal 135 - 145 mmol/L [facility] Urate [Mass/Vol] 4.6 mg/dL Normal 2.2 - 7.4 mg/dL [facility] Urea nitrogen [Mass/Vol] 9 mg/dL Normal 5 - 21 mg/dL [facility] Urea nitrogen/Creatinine [Mass ratio] 18 mg/mg Normal 10 - 20 [facility] CHEMISTRYOrdered By: Aldair Bhandari on 01-27-2025 Natriuretic peptide B (Bld) [Mass/Vol] pg/mL Low 5 - 80 pg/mL [facility] HemeManSS CMPon 01-27-2025 Albumin [Mass/Vol] 3.9 g/dL Normal 3.3-5.0 [facility] Comment on above: Performed By: #### 2 [id number] #### [facility] [address] [place] [address] Albumin/Globulin (S) [Mass conc ratio] 1.2 Normal 1.1-2.2 [facility] Comment on above: Performed By: #### 2 [id number] #### [facility] [address] [place] [address] ALP [Catalytic activity/Vol] 46 Int._Unit/L Normal 21-98 [facility] Comment on above: Performed By: #### 2 [id number] #### [facility] [address] [place] [address] ALT No additional P-5'-P [Catalytic activity/Vol] 18 Int._Unit/L Normal 6-46 [facility] Comment on above: Performed By: #### 2 [id number] #### [facility] [address] [place] [address] Anion gap [Moles/Vol] 12 mmol/L Normal 6-16 [facility] Comment on above: Performed By: #### 2 [id number] #### [facility] [address] [place] [address] AST [Catalytic activity/Vol] 19 Int._Unit/L Normal 5-43 [facility] Comment on above: Performed By: #### 2 [id number] #### [facility] [address] [place] [address] Bilirubin [Mass/Vol] 0.4 mg/dL Normal 0.0-1.1 [facility] Comment on above: Performed By: #### 2 [id number] #### [facility] [address] [place] [address] Calcium [Mass/Vol] 9.5 mg/dL Normal 8.9-11.1 [facility] Comment on above: Performed By: #### 2 [id number] #### [facility] [address] [place] [address] Chloride [Moles/Vol] 104 mmol/L Normal 101-111 [facility] Comment on above: Performed By: #### 2 [id number] #### [facility] [address] [place] [address] CO2 [Moles/Vol] 22 mmol/L Normal 21-31 [facility] Comment on above: Performed By: #### 2 [id number] #### [facility] [address] [place] [address] Creatinine [Mass/Vol] 0.5 mg/dL Normal 0.5-1.3 [facility] Comment on above: Performed By: #### 2 [id number] #### [facility] [address] [place] [address] Globulin (S) [Mass/Vol] 3.2 g/dL Normal 1.4-4.0 [facility] Comment on above: Performed By: #### 2 [id number] #### [facility] [address] [place] [address] Glucose [Mass/Vol] 131 mg/dL Normal 55-199 [facility] Comment on above: Performed By: #### 2 [id number] #### [facility] [address] [place] [address] Potassium [Moles/Vol] 3.4 mmol/L Low 3.5-5.3 [facility] Comment on above: Performed By: #### 2 [id number] #### [facility] [address] [place] [address] Protein [Mass/Vol] 7.1 g/dL Normal 6.0-7.8 [facility] Comment on above: Performed By: #### 2 [id number] #### [facility] [address] [place] [address] Sodium [Moles/Vol] 135 mmol/L Normal 135-145 [facility] Comment on above: Performed By: #### 2 [id number] #### [facility] [address] [place] [address] Urea nitrogen [Mass/Vol] 9 mg/dL Normal 5-21 [facility] Comment on above: Performed By: #### 2 [id number] #### [facility] [address] [place] [address] Urea nitrogen/Creatinine [Mass ratio] 18 No Units Normal 10-20 [facility] Comment on above: Performed By: #### 2 [id number] #### [facility] [address] [place] [address] HEMATOLOGYOrdered By: SYSTEM SYSTEM on 01-27-2025 Basophils/100 WBC (Bld) 0.3 % Normal 0.0 - 2.0 % [facility] Basophils/Leukocytes Auto (Bld) [Pure # fraction] 0.0 E9/L Normal 0.0 - 0.2 E9/L [facility] Eosinophils (Bld) [#/Vol] 0.1 E9/L Normal 0.0 - 0.5 E9/L [facility] Eosinophils/100 WBC (Bld) 0.9 % Normal 0.0 - 8.0 % [facility] Erythrocyte distribution width (RBC) [Ratio] 13.5 % Normal 10.9 - 14.2 % [facility] Hematocrit (Bld) [Volume fraction] 39.2 % Normal 34.0 - 46.0 % [facility] Hemoglobin (Bld) [Mass/Vol] 13.2 g/dL Normal 12.0 - 16.0 gm/dL [facility] Lymphocytes (Bld) [#/Vol] 2.1 E9/L Normal 1.0 - 4.0 E9/L [facility] Lymphocytes/100 WBC (Bld) 14.3 % Normal 14.0 - 50.0 % [facility] MCH (RBC) [Entitic mass] 29.0 pg Normal 27.0 - 34.0 pg [facility] MCHC (RBC) [Mass/Vol] 33.7 g/dL Normal 31.4 - 36.0 gm/dL [facility] MCV (RBC) [Entitic vol] 86.2 fL Normal 80.0 - 100.0 fL [facility] Monocytes (Bld) [#/Vol] 0.6 E9/L Normal 0.2 - 1.0 E9/L [facility] Monocytes/100 WBC (Bld) 3.9 % Low 4.0 - 14.0 % [facility] Neutrophils (Bld) [#/Vol] 11.8 E9/L High 2.0 - 7.5 E9/L [facility] Neutrophils/100 WBC (Bld) 80.6 % High 36.0 - 75.0 % [facility] Platelet 302.0 E9/L Normal 150.0 - 500.0 E9/L [facility] Platelet mean volume (Bld) [Entitic vol] 9.4 fL Normal 6.4 - 10.8 fL [facility] RBC (Bld) [#/Vol] 4.6 E12/L Normal 4.3 - 5.9 E12/L [facility] WBC corrected for nucl RBC Auto (Bld) [#/Vol] 14.6 E9/L High 4.0 - 11.0 E9/L [facility] LDHon 01-27-2025 LDH 158 Int._Unit/L Normal 93-218 [facility] Comment on above: Performed By: #### 2 [id number] #### [facility] [address] [place] [address] Uric Acidon 01-27-2025 Urate [Mass/Vol] 4.6 mg/dL Normal 2.2-7.4 [facility] Comment on above: Performed By: #### 2 [id number] #### [facility] [address] [place] [address] Urinalysis macro (dipstick) panel (U)on 01-27-2025 Bilirubin, UA Negative Negative - 4(70) +++ mg/dL [facility] Blood, UA Negative Negative - 50 Albin/mcL [facility] Clarity, UA Clear [facility] Color, UA Yellow [facility] Glucose, UA Negative Negative - 1999(110) ++++ mg/dL [facility] Interpretation and review of laboratory results Normal [facility] Ketones, UA Negative Negative - 160(16) ++++ mg/dL [facility] Leukocytes, UA Negative Negative - 500+++ Jack/mcL [facility] Nitrite, UA Negative Negative - Positive [facility] pH, UA 6 5 - 9 [facility] Protein, UA Negative Negative - 2000(20) ++++ mg/dL [facility] Spec Grav, UA 1.005 1 - 1.03 [facility] Urobilinogen, UA 0.2 0.2 - 12 mg/dL [facility] eGFRon 01-27-2025 eGFR 124 mL/min/1.73 m2 Normal >=59 [facility] Comment on above: Performed By: #### 1 [id number] #### [facility] [address] [place] [address] GLUCOSE TOLERANCE 3 HOURon 0 01-20-2025 GLUCOSE TOLERANCE 3 HOUR High mg/dL [facility] Comment on above: GLU FAST 92 (<95) Co l: 01/20/25 0948 GLU 1HR 205H (<180) Col: 01/20/25 1050 GLU 2HR 220H (<155) Col: 01/20/25 1150 GLU 3HR 107 (<140) Col: 01/20/25 1250 Interpretation and review of laboratory results Abnormal [facility] Glucose 1h post 50g loadon 0 12-30-2024 Glucose, 1Hr PP 163 [facility] RECURRENT VAGINITIS (HTRX)on 12-25-2024 ATOPOBIUM VAGINAE 0 [facility] ATOPOBIUM VAGINAE Not detected [facility] BVAB 2,3 (BACTERIAL VAGINOSIS ASSOCIATED BACTERIA 2, 3); MOBILUNCUS SPP 0 [facility] BVAB 2,3 (BACTERIAL VAGINOSIS ASSOCIATED BACTERIA 2, 3); MOBILUNCUS SPP Not detected [facility] KACEY ALBICANS, PARAPSILOSIS, TROPICALIS 0 [facility] KACEY ALBICANS, PARAPSILOSIS, TROPICALIS Not detected [facility] KACEY GLABRATA 0 [facility] KACEY GLABRATA Not detected [facility] KACEY KRUSEI 0 [facility] KACEY KRUSEI Not detected [facility] CHLAMYDIA TRACHOMATIS [facility] CHLAMY[facility]IA TRACHOMATIS Not detected N [facility] GARDNERELLA VAGINALIS 0 NOM [facility] GARDNERELLA VAGINALIS Not detected N [facility] MEGASPHAERA (TYPES 1, 2) 0 [facility] MEGASPHAERA (TYPES 1, 2) Not [facility] MYCOPLASMA GENITALIUM 0 [facility] MYCOPLASMA GENITALIUM Not detected N [facility] NEISSERIA GONORRHOEAE 0 [facility] NEISSERIA GONORRHOEAE Not detected N [facility] TRICHOMONAS VAGINALIS 0 NOM [facility] TRICHOMONAS VAGINALIS Not detected N [facility] Urinalysis macro (dipstick) panel (U)on 12-23-2024 Bilirubin, UA Negative Negative - 4(70) +++ mg/dL [facility] Blood, UA Negative Negative - 50 Albin/mcL [facility] Clarity, UA Clear [facility] Color, UA Yellow [facility] Glucose, UA Negative Negative - 1999(110) ++++ mg/dL [facility] Interpretation and review of laboratory results Abnormal [facility] Ketones, UA Positive Negative - 160(16) ++++ mg/dL [facility] Comment on above: 40mg/dL Leukocytes, UA Negative Negative - 500+++ Jack/mcL [facility] Nitrite, UA Negative Negative - Positive [facility] pH, UA 5.5 5 - 9 [facility] Protein, UA Negative Negative - 1999(20) ++++ mg/dL [facility] Spec Grav, UA 1.025 1 - 1.03 [facility] Urobilinogen, UA 0.2 0.2 - 12 mg/dL [facility] Urinalysis macro (dipstick) panel (U)on 11-25-2024 Bilirubin, UA Positive Negative - 4(70) +++ mg/dL [facility] Blood, UA Negative Negative - 50 Albin/mcL [facility] Clarity, UA Clear [facility] Color, UA Yellow [facility] Glucose, UA Negative Negative - 1999(110) ++++ mg/dL [facility] Interpretation and review of laboratory results Abnormal [facility] Ketones, UA Positive Negative - 160(16) ++++ mg/dL [facility] Leukocytes, UA Negative Negative - 500+++ Jack/mcL [facility] Nitrite, UA Negative Negative - Positive [facility] pH, UA 6 5 - 9 [facility] Protein, UA Positive Negative - 1999(20) ++++ mg/dL [facility] Spec Grav, UA 1.025 1 - 1.03 [facility] Urobilinogen, UA 0.2 0.2 - 12 mg/dL [facility] HIV 1&2 AB/AG Screen (P24 AG )on 11-11-2024 HIV 1&2 AB/AG Non-Reactive [facility] Hepatitis C(HCV) Ab w/ Refle x to PCRon 11-11-2024 HCV Ab Ql (S) Non-Reactive [facility] No Panel Informationon 11-11 [facility] Rubella IGG immune statuson 11-11-2024 Rubella immune IgG 1.78 [facility] ALL CBC WITH AUTO DIFFon BASOPHILS ABSOLUTE AUTO 0.1 [facility] Basophils/100 WBC (Bld) 0.5 % 0.2 - 2.0 % [facility] Eosinophils/100 WBC (Bld) 1 % 0.9 - 7.0 % [facility] Erythrocyte distribution width (RBC) [Ratio] 12.4 % 11.0 - 15.0 % [facility] IMMATURE GRANULOCYTES ABS AUTO 0.06 High [facility] Immature granulocytes/100 WBC (Bld) 0.5 % 0.0 - 0.5 % [facility] Interpretation and review of laboratory results Abnormal [facility] LYMPHOCYTES ABSOLUTE AUTO 3 [facility] Lymphocytes/100 WBC (Bld) 24.2 % 20.5 - 60.0 % [facility] MCH (RBC) [Entitic mass] 29.2 pg 26.7 - 34.0 pg [facility] MCHC (RBC) [Mass/Vol] 33.5 g/dL 29.9 - 35.2 g/dL [facility] MCV (RBC) [Entitic vol] 87.1 fL 81.0 - 99.0 fL [facility] MONOCYTES ABSOLUTE AUTO 0.8 [facility] Monocytes/100 WBC (Bld) 6.4 % 1.7 - 12.0 % [facility] NEUTROPHILS ABSOLUTE AUTO 8.5 High [facility] Neutrophils/100 WBC (Bld) 67.4 % 43.0 - 75.0 % [facility] Platelet mean volume (Bld) [Entitic vol] 10.1 fL 9.5 - 13.5 fL [facility] TB EO # 0.1 [facility] TB PLT 357 [facility] RBC 4.8 [facility] WBC 12.6 High [facility] CBC without diffOrdered By: Lindsey Dorseyup on 11-08-2024 Platelets (Bld) [#/Vol] 357 10*3/uL [facility] Rbc Mcv (Fl) By Automated Count 87.1 [facility] Drug Screen, Urineon 025 Amphetamine/Methamphe tamine Negative [facility] Barbiturates Negative [facility] Benzodiazepines Negative [facility] Cocaine Metabolite Negative [facility] Opiates Negative [facility] Oxycodone Negative [facility] Phencyclidine Negative [facility] Thc Marijuana, Urine Negative [facility] Hemoglobin A1con 11-08-2024 HbA1c (Bld) [Mass fraction] 5.8 % 4.0 - 6.0 % [facility] Hepatitis B surface antigeno n 11-08-2024 Hepatitis B Surface Antigen Negative [facility] Laboratory - Hematology and Cell countson 11-08-2024 Hematocrit (Bld) [Volume fraction] 41.8 % [facility] Hemoglobin (Bld) [Mass/Vol] 14 g/dL [facility] No Panel Informationon 11-08 [facility] Type and screenon 11-08-2024 Abo/Rh(D) Positive [facility] Rh_Intep Negative [facility] HCG ( test) Ql (U)o n 10-24-2024 Interpretation and review of laboratory results Abnormal [facility] Preg Test, Ur Positive Negative [facility] US OB TRANSVAGINALon 025 OB TRANSVAGINAL TITLE OF EXAM: US OB [...] x 2.5 cm (6 weeks, 5 days). [place] rump length is 0.9 cm (7 weeks, [...] UA Negative Negative - 4(70) +++ mg/dL [facility] Blood, UA Negative Negative - 50 Albin/mcL [facility] Clarity, UA Clear [facility] Color, UA Yellow [facility] Glucose, UA Negative Negative - 1999(110) ++++ mg/dL [facility] Interpretation and review of laboratory results Normal [facility] Ketones, UA Negative Negative - 160(16) ++++ mg/dL [facility] Leukocytes, UA Negative Negative - 500+++ Jack/mcL [facility] Nitrite, UA Negative Negative - Positive [facility] pH, UA 6 5 - 9 [facility] Protein, UA Negative Negative - 1999(20) ++++ mg/dL [facility] Spec Grav, UA 1.015 1 - 1.03 [facility] Urobilinogen, UA 0.2 0.2 - 12 mg/dL [facility] IGP,APTIMA HPV,AGE GDLNon AGE GDLN ACOG TESTING Note . [facility] Comment on above: TESTS RESULT FLAG UN ITS REF RANGE LAB Clinician Provided Cytology Information Source.............Cervix No. of containers..01 ThinPrep Vial Age Algo ACOG Yumiko... FLAG LEGEND: L-Low Normal,H-High Normal,LL-Alert Low,HH-Alert High <-Panic Low,>-Panic High,A-Abnormal,AA-Critical Abnormal Performed at: 01 =G [address] [place] [address] Nina Julien MD, HPV APTIMA Negative Negative [facility] Comment on above: This nucleic acid am plification test detects fourteen high- risk HPV types (16,18,31,33,35,39,45,51,52,56,58,59,66,68) without differentiation. Performed at: =[address] [id number] Truck Supervisor: Nina Julien MD, Phone: [phone] Performed at: [address] [id number] Truck Supervisor: Nina Julien MD, Phone: [phone] IGP, APTIMA HPV, RFX 16/18,45 Note . [facility] Comment on above: TESTS RESULT FLAG UN ITS REF RANGE LAB DIAGNOSIS: 02 NEGATIVE FOR INTRAEPITHELIAL LESION OR MALIGNANCY. THIS SPECIMEN WAS RESCREENED PART OF OUR DIAM[employer] PICKER PROGRAM. Specimen adequacy: 02 Satisfactory for evaluation. Endocervical and/or squamous metaplastic cells (endocervical component) are present. Performed by: 02 Jasmine Collins, Manager Construction ([facility]) QC reviewed by: 02 Binta Coyne, Manager Construction ([facility]) . 02 Note: Note 02 The Pap [...] <-Panic Low,>-Panic High,A-Abnormal,AA-Critical Abnormal Performed at: [address] [phone] Nina Julien MD, SWAB-SPATULA CERVIX [facility] BLOOD BANKOrdered By: Jacob guzman on 05-12-2022 ABO/Rh Interp Positive Invalid Interpretation Code [facility] Subsection ABSC Gel Interp Negative (05/12/22 5:12 AM) Normal [facility] Subsection SEROLOGYOrdered By: Riya kenney on 05-12-2022 HCG.beta subunit (U) [Moles/Vol] Negative Normal [facility] Man Sero URINALYSISOrdered By: Riya Quarles on 05-12-2022 Bilirubin [...] AM) Normal Negative [facility] UA Auto SS [place].plasma/Lithiu m.RBC (Bld) [Mass ratio] 0-3 /HPF Normal [...] [facility] UA Auto SS Urobilinogen Qn (U) 0.5294719 {Lazaro'U}/dL Normal 0.0 - 1.0 EU/dL [facility] [...] AM) Normal Negative [facility] UA Auto SS [place].plasma/Lithiu m.RBC (Bld) [Mass ratio] 0-3 /HPF Normal [...] [facility] UA Auto SS UA Spec Desc Clean Catch (05/12/22 9:58 AM) Normal [facility] UA Auto SS Urobilinogen Qn (U) 0.3750349 {Lazaro'U}/dL Normal 0.0 - 1.0 EU/dL [facility] UA Auto SS WBC Auto Ql (U) Negative (05/12/22 9:58 AM) Normal Negative [facility] UA Auto SS WBC LM.HPF (Urine sed) [#/Area] 0-5 /HPF Normal 0-5/HPF [facility] UA Auto SS BLOOD BANKOrdered By: Hillary Coppola on 05-11-2022 ABO/Rh Retype Interp Positive Invalid Interpretation Code [facility] BB Subsection CHEMISTRYOrdered By: SYSTEM SYSTEM on [...] rate/Area] mL/min/1.73 m2 Normal >=59mL/min/1. 73 m2 [facility] S GFR/1.73 sq M.predicted among non-blacks MDRD (S/P/Bld) [Vol rate/Area] mL/min/1.73 m2 Normal >=59mL/min/1. 73 m2 [facility] Chem S Globulin (S) [Mass/Vol] 2.8 g/dL [...] 8.9 fL Normal 6.4 - 10.8 fL [facility] HemeAutoSS Platelets (Bld) [#/Vol] 325.0 E9/L Normal 150.0 - 500.0 E9/L [facility] HemeAutoSS RBC (Bld) [#/Vol] 5.2 E12/L Normal 4.3 - 5.9 E12/L [facility] HemeAutoSS WBC corrected for nucl RBC Auto (Bld) [#/Vol] 19.3 E9/L High 4.0 - 11.0 E9/L [facility] HemeAutoSS Comment on above: Result Comment: Celeste e reviewed by MM. Coding Summaryon 05-26-2020 Coding Summary CODING DATE: 05/26/2020 [facility] STATUS: Home PAYOR: Commercial Insurance ADMIT [...] Essie Beyer Date Saved: 05/26/2020 10:[address] [facility] ED Note-Nursingon 05-26-2020 ED Note-Nursing Pt calls and gives verbal permission to copy lab result and mail to her home. [address] [facility] Consent Formson 05-25-2020 Consent Forms [id number] #[id number] [facility] .QC Respiratory Panel 2.1 (B ioFire)on 05-23-2020 Internal Control-Resp Panel 2.1(BioFire) Pass [facility] Comment on above: Order Comment: Order ed by Timoteo. [[id number]] Performed By: #### 6 [id number] #### [facility] (DEFAULT) [address] [place] [address] ED Clinical Summaryon 2019 ED Clinical Summary [facility] ? Urgent Care [address] [place] [address] Clinical Summary PERSON INFORMATION Name: JULISSA WEEMS Age: 29 Years Sex: FEMALE : 1990 MRN: Acct#: Visit Reason: FEVER, SOB, COUGH Arrival: 05/23/2020 13:31:24 Discharge: 05/23/2020 14:23:00 LOS: 000 00:52 Check In: 05/23/2020 13:31:24 Checkout: 05/23/2020 14:23:00 Address: [address] [place] [address] PCP: Provider, None PROVIDER INFORMATION Provider Role Assigned Unassigned Heath Argueta PA-C ED PA 05/23/2020 13:46:58 Jorge RN, Janis ED Nurse 05/23/2020 13:48:03 VITALS INFORMATION Vital Sign Triage Latest Temperature Tympanic Temperature Temporal Artery Pulse Rate O2 Sat 98 % 98 % Respiratory Rate Blood Pressure /86 mmHg /86 mmHg MEDICAL INFORMATION Medications Given: Allergy Information: No Known Medication Allergies PHYSICIAN DOCUMENTATION DISCHARGE INFORMATION: Discharge Disposition: Home Discharge Location: Home PATIENT EDUCATION INFORMATION Instructions: Upper Respiratory Infection, Adult, Wjkz-bd-Zwnc Follow-Up: With: Address: When: [facility], [address] [place] [phone] Business (1) Comments: Please follow-up with your primary care doctor or 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 General instructions ? Take reuq-sqs-hbosghj and prescription medicines only as told by [...] not have soap and water, use hand audit specialist. ? Avoid touching your mouth, face, eyes, [...] get better within 7?10 days. ? Take pvcv-ice-lkzwkmv and prescription medicines only as told by your doctor. This information is not intended to replace advice given to you by your health care provider. Make sure you discuss any questions you have with your health care provider. Document Released: 03/27/2009 Document Revised: 06/01/2018 Document Reviewed: 06/01/2018 [employer] Patient Education ? 2019 [employer] Medication Information: The exam and treatment you received today in the [facility] Emergency Department were for an urgent problem and are not intended as complete care. It is important for you to follow up with a doctor, nurse practitioner, or physician?s laboratory assistant for ongoing care. If your symptoms become [...] so we can reach you if necessary. [facility] Emergency Department has provided you with a complete list of medications post discharge. Please inform your data librarian/provider of your visit and for further instruction on these medications. Any specific questions regarding your chronic medications and dosages should be discussed with your primary care physician(s) and/or pharmacist. [id number], [address], [place] [id number], [phone] homatropine-HYDROcod one (homatropine-hydroco done 1.5 mg-5 mg/5 [...] for Disease Control and Prevention June 2014 [facility] Patient Handouton 05-23-2020 Patient Handout Patient [...] other clear broths. General instructions ? Take tizh-wqs-ecdnlej and prescription medicines only as told by [...] not have soap and water, use hand audit specialist. ? Avoid touching your mouth, face, eyes, [...] get better within 7?10 days. ? Take jdey-urc-tpxlzow and prescription medicines only as told by your doctor. This information is not intended to replace advice given to you by your health care provider. Make sure you discuss any questions you have with your health care provider. Document Released: 03/27/2009 Document Revised: 06/01/2018 Document Reviewed: 06/01/2018 [employer] Patient Education ? 2019 [employer] Normal [facility] Respiratory Panel 2.1 (BioFi re)on 05-23-2020 Adenovirus -BioFire Not Detected Normal Not Detected [facility] Comment on above: Performed By: #### 6 [id number], [id number] #### [facility] (DEFAULT) [address] [place] [address] Bordetella parapertussis -BioFire Not Detected Normal Not Detected [facility] Comment on above: Performed By: #### 6 [id number], [id number] #### [facility] (DEFAULT) [address] [place] [address] Bordetella pertussis -BioFire Not Detected Normal Not Detected [facility] Comment on above: Performed By: #### 6 [id number], [id number] #### [facility] (DEFAULT) [address] [place] [address] Chlamydia pneumoniae -BioFire Not Detected Normal Not Detected [facility] Comment on above: Performed By: #### 6 [id number], [id number] #### [facility] (DEFAULT) [address] [place] [address] Coronavirus 229E (Not COVID-19) -BioFire Not Detected Normal Not Detected [facility] Comment on above: Performed By: #### 6 [id number], [id number] #### [facility] (DEFAULT) [address] [place] [address] Coronavirus HKU1 (Not COVID-19) -BioFire Not Detected Normal Not Detected [facility] Comment on above: Performed By: #### 6 [id number], [id number] #### [facility] (DEFAULT) [address] [place] [address] Coronavirus NL63 (Not COVID-19) -BioFire Not Detected Normal Not Detected [facility] Comment on above: Performed By: #### 6 [id number], [id number] #### [facility] (DEFAULT) [address] [place] [address] Coronavirus OC43 (Not COVID-19) -BioFire Not Detected Normal Not Detected [facility] Comment on above: Performed By: #### 6 [id number], [id number] #### [facility] (DEFAULT) [address] [place] [address] Human Metapneumovirus -BioFire Not Detected Normal Not Detected [facility] Comment on above: Performed By: #### 6 [id number], [id number] #### [facility] (DEFAULT) [address] [place] [address] Human Rhinovirus/Enteroviru s -BioFire Detected Abnormal Not Detected [facility] Comment on above: Performed By: #### 6 [id number], [id number] #### [facility] (DEFAULT) [address] [place] [address] Influenza A (no subtype) -BioFire Not Detected Normal Not Detected [facility] Comment on above: Performed By: #### 6 [id number], [id number] #### [facility] (DEFAULT) [address] [place] [address] Influenza A -BioFire Not Detected Normal Not Detected [facility] Comment on above: Performed By: #### 6 [id number], [id number] #### [facility] (DEFAULT) [address] [place] [address] Influenza A H1 -BioFire Not Detected Normal Not Detected [facility] Comment on above: Performed By: #### 6 [id number], [id number] #### [facility] (DEFAULT) [address] [place] [address] Influenza A H1-2009 -BioFire Not Detected Normal Not Detected [facility] Comment on above: Performed By: #### 6 [id number], [id number] #### [facility] (DEFAULT) [address] [place] [address] Influenza A H3 -BioFire Not Detected Normal Not Detected [facility] Comment on above: Performed By: #### 6 [id number], [id number] #### [facility] (DEFAULT) [address] [place] [address] Influenza B -BioFire Not Detected Normal Not Detected [facility] Comment on above: Performed By: #### 6 [id number], [id number] #### [facility] (DEFAULT) [address] [place] [address] Mycoplasma pneumoniae -BioFire Not Detected Normal Not Detected [facility] Comment on above: Performed By: #### 6 [id number], [id number] #### [facility] (DEFAULT) [address] [place] [address] Parainfluenza Virus 1 -BioFire Not Detected Normal Not Detected [facility] Comment on above: Performed By: #### 6 [id number], [id number] #### [facility] (DEFAULT) [address] [place] [address] Parainfluenza Virus 2 -BioFire Not Detected Normal Not Detected [facility] Comment on above: Performed By: #### 6 [id number], [id number] #### [facility] (DEFAULT) [address] [place] [address] Parainfluenza Virus 3 -BioFire Not Detected Normal Not Detected [facility] Comment on above: Performed By: #### 6 [id number], [id number] #### [facility] (DEFAULT) [address] [place] [address] Parainfluenza Virus 4 -BioFire Not Detected Normal Not Detected [facility] Comment on above: Performed By: #### 6 [id number], [id number] #### [facility] (DEFAULT) [address] [place] [address] Respiratory Syncytial Virus -BioFire Not Detected Normal Not Detected [facility] Comment on above: Performed By: #### 6 [id number], [id number] #### [facility] (DEFAULT) [address] [place] [address] SARS-CoV-2 (COVID-19) -BioFire Not Detected Normal Not Detected [facility] Comment on above: Performed By: #### 6 [id number], [id number] #### [facility] (DEFAULT) [address] [place] [address] Urgent Care [place] 020 Urgent Care Record [facility] ? 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 Medication Information: The exam and treatment you received today in the [facility] Urgent Care were for an urgent problem and are not intended as complete care. It is important for you to follow up with a doctor, nurse practitioner, or physician?s laboratory assistant for ongoing care. If your symptoms become [...] so we can reach you if necessary. [facility] has provided you with a complete list of medications post discharge. Please inform your data librarian/provider of your visit and for further instruction on these medications. Any specific questions regarding your chronic medications and dosages should be discussed with your primary care physician(s) and/or pharmacist. [id number], [address], [place] [id number], [phone] homatropine-HYDROcod one (homatropine-hydroco done 1.5 mg-5 mg/5 [...] other clear broths. General instructions ? Take ring-ygt-lgnwvtg and prescription medicines only as told by [...] not have soap and water, use hand audit specialist. ? Avoid touching your mouth, face, eyes, [...] get better within 7?10 days. ? Take vctc-cpt-rnqygbp and prescription medicines only as told by your doctor. This information is not intended to replace advice given to you by your health care provider. Make sure you discuss any questions you have with your health care provider. Document Released: 03/27/2009 Document Revised: 06/01/2018 Document Reviewed: 06/01/2018 [employer] Patient Education ? 2019 [employer] Viruses or Bacteria What?s got you sick? [...] for Disease Control and Prevention June 2014 [facility] Vital Signs Date Time Vital Sign Value Performing Clinician Facility 04-21-2025 15:39-0400 Body mass index (BMI) [Ratio] 33.83 kg/m2 Mik Borrego DO Work Phone: [facility] 04-21-2025 15:39-0400 Body weight 97.98 kg Mik Borrego DO Work Phone: [facility] 04-21-2025 15:39-0400 Diastolic blood pressure 80 mm[Hg] Mik Elmo DO Work Phone: [facility] 04-21-2025 15:39-0400 Systolic blood pressure 124 mm[Hg] Mik Elmo DO Work Phone: [facility] 04-14-2025 09:03-0400 Body mass index (BMI) [Ratio] 33.8 kg/m2 Mik Elmo DO Work Phone: [facility] 04-14-2025 09:03-0400 Body weight 97.89 kg Mik Elmo DO Work Phone: [facility] 04-14-2025 09:03-0400 Diastolic blood pressure 82 mm[Hg] Mik Elmo DO Work Phone: [facility] 04-14-2025 09:03-0400 Systolic blood pressure 126 mm[Hg] Mik Elmo DO Work Phone: [facility] 04-08-2025 11:38-0400 Body mass index (BMI) [Ratio] 33.36 kg/m2 Mik Elmo DO Work Phone: [facility] 04-08-2025 11:38-0400 Body weight 96.62 kg Mik Elmo DO Work Phone: [facility] 04-08-2025 11:38-0400 Diastolic blood pressure 78 mm[Hg] Mik Elmo DO Work Phone: [facility] 04-08-2025 11:38-0400 Systolic blood pressure 122 mm[Hg] Mik Elmo DO Work Phone: [facility] 03-24-2025 11:35-0400 Body mass index (BMI) [Ratio] 33.52 kg/m2 Mik Elmo DO Work Phone: [facility] 03-24-2025 11:35-0400 Body weight 97.07 kg Mik Elmo DO Work Phone: [facility] 03-24-2025 11:35-0400 Diastolic blood pressure 80 mm[Hg] Mik Elmo DO Work Phone: [facility] 03-24-2025 11:35-0400 Systolic blood pressure 130 mm[Hg] Mik Elmo DO Work Phone: [facility] 02-24-2025 10:50-0400 Body mass index (BMI) [Ratio] 33.05 kg/m2 Mik Elmo DO Work Phone: [facility] 02-24-2025 10:50-0400 Body weight 95.71 kg Mik Elmo DO Work Phone: [facility] 02-24-2025 10:50-0400 Diastolic blood pressure 74 mm[Hg] Mik Elmo DO Work Phone: [facility] 02-24-2025 10:50-0400 Systolic blood pressure 122 mm[Hg] Mik Elmo DO Work Phone: [facility] 01-27-2025 08:51-0400 Body mass index (BMI) [Ratio] 33.11 kg/m2 Mik Elmo DO Work Phone: [facility] 01-27-2025 08:51-0400 Body weight 95.89 kg Mik Elmo DO Work Phone: [facility] 01-27-2025 08:51-0400 Diastolic blood pressure 80 mm[Hg] Mik Elmo DO Work Phone: [facility] 01-27-2025 08:51-0400 Systolic blood pressure 136 mm[Hg] Mik Elmo DO Work Phone: [facility] 01-21-2025 09:05-0400 Body height 171.5 cm Bruce Perez MD Work Phone: [facility] 01-21-2025 09:05-0400 Body mass index (BMI) [Ratio] 33.08 kg/m2 Bruce Perez MD Work Phone: [facility] 01-21-2025 09:05-0400 Body weight 97.25 kg Bruce Perez MD Work Phone: [facility] 01-21-2025 09:05-0400 Diastolic blood pressure 74 mm[Hg] Bruce Perez MD Work Phone: [facility] 01-21-2025 09:05-0400 Heart rate 94 /min Bruce Perez MD Work Phone: [facility] 01-21-2025 09:05-0400 Systolic blood pressure 151 mm[Hg] Bruce Perez MD Work Phone: [facility] 12-23-2024 10:42-0500 Body mass index (BMI) [Ratio] 33.17 kg/m2 Lindsey Cobb PA Work Phone: [facility] 12-23-2024 10:42-0500 Body weight 96.07 kg Lindsey Bennett PA Work Phone: [facility] 12-23-2024 10:42-0500 Diastolic blood pressure 84 mm[Hg] Lindsey Cobb PA Work Phone: [facility] 12-23-2024 10:42-0500 Systolic blood pressure 142 mm[Hg] Lindsey Bennett PA Work Phone: [facility] 11-25-2024 09:59-0500 Body mass index (BMI) [Ratio] 32.28 kg/m2 Mik Elmo DO Work Phone: [facility] 11-25-2024 09:59-0500 Body weight 93.5 kg Mik Elmo DO Work Phone: [facility] 11-25-2024 09:59-0500 Diastolic blood pressure 84 mm[Hg] Mik Elmo DO Work Phone: [facility] 11-25-2024 09:59-0500 Systolic blood pressure 120 mm[Hg] Mik Elmo DO Work Phone: [facility] 10-24-2024 14:22-0500 Body mass index (BMI) [Ratio] 31.64 kg/m2 [facility] 10-24-2024 14:22-0500 [facility] 10-24-2024 14:22-0500 Diastolic blood pressure 74 mm[Hg] [facility] 10-24-2024 14:22-0500 Systolic blood pressure 120 mm[Hg] [facility] 09-16-2024 15:18-0500 Body mass index (BMI) [Ratio] 32.08 kg/m2 Mik Elmo DO Work Phone: [facility] 09-16-2024 15:18-0500 Body weight 92.9 kg Mik Elmo DO Work Phone: [facility] 09-16-2024 15:18-0500 Diastolic blood pressure 68 mm[Hg] Mik Elmo DO Work Phone: [facility] 09-16-2024 15:18-0500 Systolic blood pressure 114 mm[Hg] Mik Elmo DO Work Phone: [facility] 05-12-2022 15:32-0400 Blood Pressure Location Kaylinn Dokken [facility] 05-12-2022 15:32-0400 Diastolic blood pressure 70 mm[Hg] Kaylinn Dokken [facility] 05-12-2022 15:32-0400 Heart rate 101 /min Kaylinn Dokken [facility] 05-12-2022 15:32-0400 Mean blood pressure 84 mm[Hg] Kaylinn Dokken [facility] 05-12-2022 15:32-0400 Respiratory rate 24 /min Kaylinn Dokken [facility] 05-12-2022 15:32-0400 SaO2% (BldA) [Mass fraction] 96 % Kaylinn Dokken [facility] 05-12-2022 15:32-0400 Systolic blood pressure 114 mm[Hg] Kaylinn Dokken [facility] 05-12-2022 14:20-0400 Body temperature 98.06 [degF] Kaylinn Dokken [facility] 05-12-2022 14:20-0400 Diastolic blood pressure 69 mm[Hg] Kaylinn Dokken [facility] 05-12-2022 14:20-0400 Heart rate 73 /min Kaylinn Dokken [facility] 05-12-2022 14:20-0400 Respiratory rate 16 /min Kaylinn Dokken [facility] 05-12-2022 14:20-0400 SaO2% (BldA) [Mass fraction] 97 % Kaylinn Dokken [facility] 05-12-2022 14:20-0400 Systolic blood pressure 108 mm[Hg] Kaylinn Dokken [facility] 05-12-2022 13:14-0400 Body temperature 98.24 [degF] Kaylinn Dokken [facility] 05-12-2022 13:14-0400 Diastolic blood pressure 82 mm[Hg] Kaylinn Dokken [facility] 05-12-2022 13:14-0400 Heart rate 87 /min Arunylinn Dokken [facility] 05-12-2022 13:14-0400 Mean blood pressure 98 mm[Hg] Kaylinn Dokken [facility] 05-12-2022 13:14-0400 SaO2% (BldA) [Mass fraction] 95 % Arunylinn Dokken [facility] 05-12-2022 13:14-0400 Systolic blood pressure 129 mm[Hg] Kaylinn Dokken [facility] 05-12-2022 13:05-0400 Body temperature 97.88 [degF] Kaylinn Dokken [facility] 05-12-2022 13:05-0400 Mean blood pressure 96 mm[Hg] Kaylinn Dokken [facility] 05-12-2022 13:05-0400 Respiratory rate 14 /min Kaylinn Dokken [facility] 05-12-2022 13:00-0400 Respiratory rate 13 /min Kaylinn Dokken [facility] 05-12-2022 12:45-0400 Mean blood pressure 95 mm[Hg] Kaylinn Dokken [facility] 05-12-2022 11:56-0400 Body temperature 98.06 [degF] Kaylinn Dokken [facility] 05-12-2022 11:50-0400 Respiratory rate 16 /min Kaylinn Dokken [facility] 05-12-2022 11:45-0400 Respiratory rate 16 /min Kaylinn Dokken [facility] 05-12-2022 09:30-0400 Blood Pressure Location Kaylinn Dokken [facility] 05-12-2022 09:30-0400 Mean blood pressure 93 mm[Hg] Kaylinn Dokken [facility] 05-12-2022 09:28-0400 Blood Pressure Location Kaylinn Dokken [facility] 05-12-2022 09:28-0400 Body temperature 97.7 [degF] Kaylinn Dokken [facility] 05-12-2022 09:00-0400 Hourly Rounding Kaylinn Dokken [facility] 05-12-2022 09:00-0400 Promise to Return Kaylinn Dokken [facility] 05-12-2022 08:00-0400 Hourly Rounding Kaylinn Dokken [facility] 05-12-2022 08:00-0400 Promise to Return Kaylinn Dokken [facility] 05-11-2022 22:41-0400 Heart rate 112 /min Arunylinn Dokken [facility] 03-08-2022 10:17-0400 Blood Pressure Location Helene SPEGERAEL [facility] 03-08-2022 10:17-0400 Body temperature 99.5 [degF] Helene SPETTEL [facility] 03-08-2022 10:17-0400 Diastolic blood pressure 84 mm[Hg] Helene SPETTEL [facility] 03-08-2022 10:17-0400 Heart rate 84 /min Helene SPETTEL [facility] 03-08-2022 10:17-0400 SaO2% (BldA) [Mass fraction] 97 % Helene SPETTEL [facility] 03-08-2022 10:-0400 Systolic blood pressure 118 mm[Hg] Helene HAMILTON [facility] Encounters Encounter Date Encounter Type Care Provider Facility Start: 04-21-2025 End: 04-21-2025 flow sheet Mik Elmo DO Work Phone: [facility] Comment on above: Third trimester preg lillian ([facility]); 32 weeks gestation of ([facility]); Insulin controlled gestational diabetes mellitus (GDM) in third trimester ([facility]); Multigravida of advanced maternal age in third trimester ([facility]); Hypertension, unspecified type Start: 04-21-2025 End: 04-21-2025 Bamboo flowsheet Mik Emlo DO Work Phone: [facility] Start: 04-21-2025 End: 04-21-2025 Bamboo flowsheet Mik Elmo DO Work Phone: [facility] Start: 04-14-2025 End: 04-14-2025 Bamboo flowsheet Mik Elmo DO Work Phone: [facility] Start: 04-14-2025 End: 04-14-2025 Bamboo flowsheet Mik Elmo DO Work Phone: [facility] Start: 04-14-2025 End: 04-14-2025 flow sheet Mik Elmo DO Work Phone: [facility] Comment on above: Third trimester preg lillian ([facility]); 31 weeks gestation of ([facility]) Start: 04-14-2025 End: 04-14-2025 ambulatory MIK ELMO Not Available Start: 04-08-2025 End: 04-08-2025 Bamboo flowsheet Mik Elmo DO Work Phone: [facility] Start: 04-08-2025 End: 04-08-2025 Bamboo flowsheet Mik Elmo DO Work Phone: [facility] Start: 04-08-2025 End: 04-08-2025 flow sheet Mik Elmo DO Work Phone: [facility] Comment on above: Third trimester preg lillian ([facility]); 30 weeks gestation of ([facility]); Gestational diabetes mellitus (GDM), antepartum, gestational diabetes method of control unspecified ([facility]) Start: 04-08-2025 End: 04-08-2025 ambulatory MIK ELMO Not Available Start: 04-01-2025 End: 04-01-2025 Orders Only Michelle Ashraf RN [facility] at [facility] Comment on above: Chronic hypertension affecting (Primary Dx); Gestational diabetes mellitus (GDM), antepartum, gestational diabetes method of control unspecified Start: 03-31-2025 End: 03-31[facility]2025 [facility] Start: 03-24-2025 End: 03-24-2025 Bamboo flowsheet Mik Elmo DO Work Phone: [facility] Start: 03-24-2025 End: 03-24-2025 Bamboo flowsheet Mik Elmo DO Work Phone: [facility] Start: 03-24-2025 End: 03-24-2025 flow sheet Mik Elmo DO Work Phone: [facility] Comment on above: Gestational diabetes mellitus (GDM), antepartum, gestational diabetes method of control unspecified; Multigravida of advanced maternal age in third trimester; Third trimester ; 28 weeks gestation of Start: 03-24-2025 End: 03-24-2025 ambulatory MIK ELMO Not Available Start: 03-04-2025 End: 03-04-2025 Orders Only Oralia Elliott CMA [facility]- Medicine at [facility] Comment on above: Chronic hypertension affecting (Primary Dx); Advanced maternal age in multigravida, second trimester; Gestational diabetes mellitus (GDM), antepartum, gestational diabetes method of control unspecified Start: 03-03-2025 End: 03-03-2025 ambulatory MIK R ELMO [facility] Start: 02-24-2025 End: 02-24-2025 Bamboo flowsheet Mik Elmo DO Work Phone: [facility] Start: 02-24-2025 End: 02-24-2025 Bamboo flowsheet Mik Elmo DO Work Phone: [facility] Start: 02-24-2025 End: 02-24-2025 flow sheet Mik Elmo DO Work Phone: [facility] Comment on above: Second trimester pre gnancy; 24 weeks gestation of Start: 02-24-2025 End: 02-24-2025 ambulatory MIK ELMO Not Available Start: 02-17-2025 End: 02-17-2025 ambulatory Mik R ELMO Facility:[facility] Start: 02-17-2025 End: 02-17-2025 Patient encounter procedure Mik R ELMO [facility] Start: 02-04-2025 End: 02-04-2025 Telephone encounter Yamila Rayo LPN [facility] at [facility] Start: 02-04-2025 End: 02-04-2025 ambulatory Mik R ELMO Facility:[facility] Start: 02-04-2025 End: 02-04-2025 Lab Drop off Mik R ELMO [facility] Start: 01-27-2025 End: 01-27-2025 Bamboo flowsheet Mik Elmo DO Work Phone: [facility] Start: 01-27-2025 End: 01-27-2025 Bamboo flowsheet Mik Elmo DO Work Phone: [facility] Start: 01-27-2025 End: 01-27-2025 ambulatory Mik R ELMO Facility:[facility] Start: 01-27-2025 End: 01-27-2025 Patient encounter procedure Mik BORREGO [facility] Start: 01-27-2025 End: 01-27-2025 flow sheet Mik Borrego DO Work Phone: [facility] Comment on above: 20 weeks gestation o f ; Second trimester ; Diabetes mellitus screening; Elevated blood pressure affecting , antepartum; Gestational diabetes mellitus (GDM), antepartum, gestational diabetes method of control unspecified; Elevated glucose tolerance test; induced hypertension, antepartum; Antepartum multigravida of advanced maternal age Start: 01-27-2025 End: 01-27-2025 ambulatory MIK BORREGO Not Available Start: 01-21-2025 End: 01-21-2025 Telephone encounter Jessy Neil [facility] at [facility] Comment on above: Chronic hypertension affecting (Primary Dx); Advanced maternal age in multigravida, second trimester; Prediabetes in mother during ; Gestational diabetes mellitus (GDM), antepartum, gestational diabetes method of control unspecified Start: 01-21-2025 End: 01-21-2025 Office consultation new/estab patient 80 min Bruce Perez MD Work Phone: [facility] at [facility] Comment on above: Advanced maternal ag e in multigravida, second trimester (Primary Dx); Chronic hypertension affecting ; Prediabetes in mother during ; Gestational diabetes mellitus (GDM), antepartum, gestational diabetes method of control unspecified; 19 weeks gestation of Start: 01-21-2025 End: 01-21-2025 ambulatory MIK VELEZO [facility] Start: 01-20-2025 End: 01-20-2025 Clinisync Result Encounter Mik Velezo DO Work Phone: [facility] Unsolicited Start: 01-20-2025 End: 01-20-2025 Clinisync Result Encounter Mik Velezo DO Work Phone: [facility] Unsolicited Start: 01-17-2025 End: 01-17-2025 Chart abstracting Bruce Perez MD Work Phone: [facility] Start: 01-17-2025 End: 01-17-2025 Telephone encounter Lindsey Rachel DAVIS [facility] Start: 12-30-2024 End: 12-30-2024 ambulatory MIK ELMO Not Available Start: 12-23-2024 End: 12-23-2024 Bamboo flowsheet Lindsey [...] Available Start: 12-06-2024 End: 12-06-2024 Chart abstracting Bruce Perez MD Work Phone: [facility] Start: 11-25-2024 End: 11-25-2024 Bamboo flowsheet Mik [...] MIK ELMO Not Available Start: 10-03-2022 End: 10-03-2022 Patient encounter procedure DONA DELAROSA [facility] Start: 10-03-2022 End: 10-03-2022 Manual pelvic examination DONA DELAROSA [facility] Start: 07-12-2022 End: 07-12-2022 Patient encounter procedure Helene Darwin JOY [facility] Start: 06-01-2022 End: 08-30-2022 Patient encounter procedure Helene HAMILTON [facility] Start: 05-11-2022 End: 05-12-2022 Emergency department patient visit William Darwin Paresh [facility] Start: 03-08-2022 End: 03-08-2022 Patient encounter procedure Helene HAMILTON [facility] Procedures Date Procedure Procedure Detail Performing Clinician Start: 04-21-2025 Urnls dip stick/tabl et rgnt non-auto w/o micrscp Mik Elmo DO Work Phone: Start: 04-14-2025 Urnls dip stick/tabl et rgnt non-auto w/o micrscp Mik Elmo DO Work Phone: Start: 04-08-2025 Urnls dip stick/tabl et rgnt non-auto w/o micrscp Mik Elmo DO Work Phone: Start: 03-24-2025 Urnls dip stick/tabl et rgnt non-auto w/o micrscp Mik Elmo DO Work Phone: Start: 02-24-2025 Urnls dip stick/tabl et rgnt non-auto w/o micrscp Mik Elmo DO Work Phone: Start: 01-27-2025 Urnls dip stick/tabl et rgnt non-auto w/o micrscp Mik Elmo DO Work Phone: Start: 01-20-2025 GLUCOSE TOLERANCE 3 HOUR Mik Elmo DO Work Phone: Start: 12-30-2024 GLU 1H POST 50G LOAD No t In System Ref Prov Start: 12-23-2024 RECURRENT VAGINITIS (HTRX) Lindsey GONZALEZ Work Phone: Start: 12-23-2024 Urnls dip stick/tabl et rgnt non-auto w/o micrscp Lindsey GONZALEZ Work Phone: Start: 11-25-2024 Urnls dip stick/tabl et rgnt non-auto w/o micrscp Mik Elmo DO Work Phone: Start: 11-11-2024 Hepatitis c antibody No t In System Ref Prov Start: 11-11-2024 HIV 1&2 AB/AG SCREEN (P24 AG) Not In System Ref Prov Start: 11-08-2024 Antibody screen Bruce smith MD Work Phone: Start: 11-08-2024 Drug scrn 1+ class nonchromo Not In System Ref Prov Start: 11-08-2024 Hemoglobin glycosyla aria a1c Bruce Perez MD Work Phone: Start: 11-08-2024 Iaad ia hepatitis b surface antigen Not In System Ref Prov Start: 11-08-2024 TYPE AND SCREEN Not In System Ref Prov Start: 11-08-2024 ALL CBC WITH AUTO DIFF Mik Elmo DO Work Phone: Start: 10-24-2024 End: 10-24-2024 Urnls dip stick/tablet rgnt non-auto w/o micrscp Mik Elmo DO Work Phone: Start: 09-16-2024 IGP,APTIMA HPV,AGE GDLN Mik Elmo DO Work Phone: Start: 09-16-2024 Microscopic observat ion [Identifier] in Cervix by Cyto stain [facility] Start: 05-12-2022 Laparoscopic appendectomy William Yoder History of appendectomy History of appendectomy( Confirmed ) Helene HAMILTON None (qualifier value) Rachna HAMILTON Plan of Treatment Date Care Activity Detail Author Start: 09-16-2029 Screening for malign ant neoplasm of cervix [facility] Start: 09-16-2027 Screening for malign ant neoplasm of cervix Pap Smear [facility] Start: 04-01-2026 End: 04-01-2026 US MFM with or without consult US MFM with or without consult Imaging Routine Chronic hypertension affecting Gestational diabetes mellitus (GDM), antepartum, gestational diabetes method of control unspecified Expected: 04/01/2026 (Approximate), Expires: 04/01/2026 [employer] Work Phone: Comment on above: Expected: 04/01/2026 (Approximate), Expires: 04/01/2026 Start: 03-04-2026 End: 03-04-2026 US MFM with or without consult US MFM with or without consult Imaging Routine Chronic hypertension affecting Advanced maternal age in multigravida, second trimester Gestational diabetes mellitus (GDM), antepartum, gestational diabetes method of control unspecified Expected: 03/04/2026 (Approximate), Expires: 03/04/2026 [employer] Phone: Comment on above: Expected: 03/04/2026 (Approximate), Expires: 03/04/2026 Start: 01-21-2026 Adult BMI Screening Adult BMI Screen ing [facility] Start: 01-21-2026 Tobacco Screening Tobacco Screening [facility] Start: 08-05-2025 Screening for malign ant neoplasm of cervix [facility] Start: 06-23-2025 Influenza vaccination [facility] Start: 05-19-2025 End: 05-19-2025 Patient encounter procedure 05/19/2025 9:40 AM EDT Routine [facility] [address] [place] [address] [place] [address] Mik Borrego, DO [address] [place] [address] [facility] Start: 05-12-2025 End: 05-12-2025 Patient encounter procedure 05/12/2025 9:10 AM EDT Routine [facility] [address] [place] [id number] Mik Borrego, DO [address] [place] [address] [facility] Start: 05-05-2025 End: 05-05-2025 Patient encounter procedure 05/05/2025 9:10 AM EDT Routine [facility] [address] [place] [phone] Mik Borrego, DO [address] [place] [address] [facility] Start: 04-29-2025 End: 04-29-2025 Patient encounter procedure 04/29/2025 3:15 PM EDT Appointment [facility] [address] [place] [address] [facility] Start: 04-28-2025 End: 04-28-2025 Patient encounter procedure 04/28/2025 2:50 PM EDT Routine [facility] [address] [place] [id number] Mki Borrego, DO [address] [place] [address] [facility] Start: 04-21-2025 End: 04-21-2025 Patient encounter procedure 04/21/2025 3:20 PM EDT Routine [facility] [address] [place] [address] Mik Borrego, [address] [place] [address] [facility] Start: 04-21-2025 End: 08-21-2025 US for US OB follow up transabdominal approach Imaging Routine Insulin controlled gestational diabetes mellitus (GDM) in third trimester ([facility]) Expected: 04/21/2025, Expires: 08/21/2025 [facility] Work Phone: Comment on above: Expected: 04/21/2025 , Expires: 08/21/2025 Start: 04-14-2025 End: 04-14-2025 Patient encounter procedure [facility] Comment on above: Arrived Start: 04-08-2025 End: 04-08-2025 Patient encounter procedure [facility] Comment on above: Arrived Start: 03-31-2025 End: 03-31-2025 Patient encounter procedure 03/31/2025 11:00 AM EDT Appointment [facility] [address] [place] [phone] [facility] Start: 03-24-2025 End: 09-23-2025 US biophysical profile w non stress test US biophysical profile w non stress test Imaging Routine Gestational diabetes mellitus (GDM), antepartum, gestational diabetes method of control unspecified Multigravida of advanced maternal age in third trimester Expected: 03/24/2025 (Approximate), Expires: 09/23/2025 [facility] Comment on above: Expected: 03/24/2025 (Approximate), Expires: 09/23/2025 Start: 03-24-2025 End: 07-24-2025 US for US OB follow up transabdominal approach Imaging Routine Gestational diabetes mellitus (GDM), antepartum, gestational diabetes method of control unspecified Multigravida of advanced maternal age in third trimester Expected: 03/24/2025, Expires: 07/24/2025 [facility] Work Phone: Comment on above: Expected: 03/24/2025 , Expires: 07/24/2025 Start: 03-24-2025 End: 03-24-2025 Patient encounter procedure [facility] Comment on above: Arrived Start: 03-03-2025 End: 03-03-2025 Patient encounter procedure 03/03/2025 11:00 AM EDT Appointment [facility] [address] [place] [address] [facility] Start: 02-24-2025 End: 02-24-2025 Patient encounter procedure [facility] Comment on above: Arrived Start: 02-10-2025 End: 02-10-2025 ambulatory 02/10/2025 1:30 PM EDT Support Visit Maternal- Medicine at [facility] [address] [place] [address] Elham Garcia RN [address], [address] [place] [address], [place] [address] Mansi Boyer, BRYANT [address], [address] [place] [address] [facility] at [facility] Start: 02-10-2025 End: 02-10-2025 Telemedicine consultation with patient 02/10/2025 10:30 AM EDT Telemedicine [facility]- Medicine at [facility] [address] [place] [address] Hien Ribera PA-C [address] [place] [address], [place] [address] [facility] at [facility] Start: 01-27-2025 End: 01-27-2026 CBC panel - Blood by Automated count CBC Lab Routine Diabetes mellitus screening Expected: 01/27/2025 (Approximate), Expires: 01/27/2026 [facility] Work Phone: Comment on above: Expected: 01/27/2025 (Approximate), Expires: 01/27/2026 Start: 01-27-2025 End: 01-27-2026 Comprehensive metabolic 2000 panel - Serum or Plasma Comprehensive metabolic panel Lab Routine Second trimester Elevated blood pressure affecting , antepartum induced hypertension, antepartum Antepartum multigravida of advanced maternal age Expected: 01/27/2025 (Approximate), Expires: 01/27/2026 [facility] Comment on above: Expected: 01/27/2025 (Approximate), Expires: 01/27/2026 Start: 01-27-2025 End: 01-27-2026 ECG 12 lead ECG 12 lead ECG Routine Second trimester Elevated blood pressure affecting , antepartum induced hypertension, antepartum Antepartum multigravida of advanced maternal age Expected: 01/27/2025 (Approximate), Expires: 01/27/2026 [facility] Comment on above: Expected: 01/27/2025 (Approximate), Expires: 01/27/2026 Start: 01-27-2025 End: 01-27-2027 Echocardiogram 2D complete Echocardiogram 2D complete Echocardiography Routine Second trimester Elevated blood pressure affecting , antepartum induced hypertension, antepartum Antepartum multigravida of advanced maternal age Expected: 01/27/2025 (Approximate), Expires: 01/27/2027 [facility] Comment on above: Expected: 01/27/2025 (Approximate), Expires: 01/27/2027 Start: 01-27-2025 End: 01-27-2026 Lactate dehydrogenase [Enzymatic activity/volume] in Serum or Plasma by Lactate to pyruvate reaction Lactate dehydrogenase Lab Routine Second trimester Elevated blood pressure affecting , antepartum induced hypertension, antepartum Antepartum multigravida of advanced maternal age Expected: 01/27/2025, Expires: 01/27/2026 [facility] Comment on above: Expected: 01/27/2025 , Expires: 01/27/2026 Start: 01-27-2025 End: 01-27-2026 Measurement of glucose 1 hour after glucose challenge for glucose tolerance test Glucose tolerance, 1 hour Lab Routine Diabetes mellitus screening Expected: 01/27/2025 (Approximate), Expires: 01/27/2026 [facility] Comment on above: Expected: 01/27/2025 (Approximate), Expires: 01/27/2026 Start: 01-27-2025 End: 01-27-2026 Natriuretic peptide B [Mass/volume] in Blood B-type natriuretic peptide Lab Routine Second trimester Elevated blood pressure affecting , antepartum induced hypertension, antepartum Antepartum multigravida of advanced maternal age Expected: 01/27/2025 (Approximate), Expires: 01/27/2026 [facility] Comment on above: Expected: 01/27/2025 (Approximate), Expires: 01/27/2026 Start: 01-27-2025 End: 01-27-2026 Urate [Mass/volume] in Serum or Plasma Uric acid Lab Routine Second trimester Elevated blood pressure affecting , antepartum induced hypertension, antepartum Antepartum multigravida of advanced maternal age Expected: 01/27/2025 (Approximate), Expires: 01/27/2026 [facility] Comment on above: Expected: 01/27/2025 (Approximate), Expires: 01/27/2026 Start: 01-27-2025 End: 01-27-2025 Patient encounter procedure [facility] Comment on above: Arrived Start: 01-21-2025 End: 01-21-2026 US MFM with or without consult US MFM with or without consult Imaging Routine Chronic hypertension affecting Advanced maternal age in multigravida, second trimester Prediabetes in mother during Gestational diabetes mellitus (GDM), antepartum, gestational diabetes method of control unspecified Expected: 01/21/2025, Expires: 01/21/2026 [facility] Work Phone: Comment on above: Expected: 01/21/2025 , Expires: 01/21/2026 Start: 01-21-2025 End: 01-21-2025 Patient encounter procedure 01/21/2025 10:30 AM EDT Office Visit Maternal- Medicine at [facility] [address] [place] [phone] Bruce Perez MD [address] [address] Maternal- Medicine at [facility] Start: 01-21-2025 End: 01-21-2025 Patient encounter procedure 01/21/2025 9:15 AM EDT Appointment [facility] [address] [place] [address] [facility] Start: 01-20-2025 End: 01-20-2025 Patient encounter procedure 01/20/2025 9:20 AM EDT Routine [facility] [address] [place] [phone] Mik Borrego, DO [address] [place] [address] [facility] Start: 12-30-2024 End: 12-30-2024 Clinical Support 12/30/2024 9:10 AM EDT Clinical Support [facility] [address] [place] [phone] [facility] Start: 12-23-2024 End: 02-22-2025 Alpha [...] gestational age Expected: 10/24/2024 (Approximate), Expires: 10/24/2025 [facility] Comment on above: Expected: 10/24/2024 (Approximate), Expires: 10/24/2025 Start: 10-24-2024 End: 10-24-2025 Drugs of abuse panel - Urine by Screen method Rapid drug screen, urine Lab Routine , unspecified gestational age Encounter for supervision of normal first in first trimester Expected: 10/24/2024 (Approximate), Expires: 10/24/2025 [facility] Comment on above: Expected: 10/24/2024 (Approximate), Expires: 10/24/2025 Start: 10-24-2024 End: 10-24-2025 US Pelvis transvaginal [facility] Work Phone: Comment on above: Expected: 10/24/2024 , Expires: 10/24/2025 Start: 09-16-2024 End: 09-16-2024 Patient encounter procedure 09/16/2024 3:00 PM EST Office Visit [facility] [address] [place] [phone] Mik Borrego DO [address] [facility] [place] [address] Arrived [facility] Comment on above: Arrived Start: 06-23-2024 COVID-19 Vaccine ( season) COVID-19 Vaccine ( season) [facility] Start: 06-23-2024 Influenza vaccination N [facility] Start: 06-01-2019 DTaP,Tdap and Td Vaccines (2 - Td or Tdap) DTaP,Tdap and Td Vaccines (2 - Td or Tdap) [facility] Start: 2009 Screening for malign ant neoplasm of cervix Pap Smear [facility] Start: 2007 DTaP,Tdap and Td Vaccines (1 - Tdap) DTaP,Tdap and Td Vaccines (1 - Tdap) [facility] Start: 2006 Adult BMI Follow Up Plan Adult BMI F ollow Up Plan [facility] Start: 2006 Adult BMI Screening Adult BMI Screen ing [facility] Start: 2000 Depression Screening Depression Scre ening [facility] Start: 2000 Tobacco Screening Tobacco Screening [facility] Bacteria identified in Urine by Culture Urine culture Microbiology Routine Missed menses Ordered: 10/24/2024 [facility] Comment on above: Ordered: 10/24/2024 End: 01-21-2026 CBC panel - Blood by Automated count CBC without diff Lab Routine Chronic hypertension affecting 1 Occurrences starting 01/21/2025 until 01/21/2026 [facility] Comment on above: 1 Occurrences starti ng 01/21/2025 until 01/21/2026 CBC W Auto Different ial panel - Blood CBC and differential Lab Routine Missed menses , unspecified gestational age Ordered: 10/24/2024 [facility] Comment on above: Ordered: 10/24/2024 CBC W Auto Different ial panel - Blood CBC and differential Lab Routine Second trimester Elevated blood pressure affecting , antepartum induced hypertension, antepartum Antepartum multigravida of advanced maternal age Ordered: 01/27/2025 [facility] Comment on above: Ordered: 01/27/2025 CHLAMYDIA TRACHOMATI S (GENITO/STI) CHLAMYDIA TRACHOMATIS (GENITO/STI) Lab Routine STD exposure Vaginal discharge Ordered: 12/23/2024 [facility] Comment on above: Ordered: 12/23/2024 End: 01-21-2026 Comprehensive metabolic 2000 panel - Serum or Plasma Comprehensive metabolic panel Lab Routine Chronic hypertension affecting 1 Occurrences starting 01/21/2025 until 01/21/2026 [facility] Comment on above: 1 Occurrences starti ng 01/21/2025 until 01/21/2026 Cytology Cervical or vaginal smear or scraping study Pap Smear Pathology and Cytology Routine Well woman exam with routine gynecological exam Ordered: 09/16/2024 [facility] Work Phone: Comment on above: Ordered: 09/16/2024 End: 01-21-2026 ECG 12 lead ECG 12 lead ECG Routine Chronic hypertension affecting 1 Occurrences starting 01/21/2025 until 01/21/2026 [facility] Comment on above: 1 Occurrences starti ng 01/21/2025 until 01/21/2026 Hemoglobin A1c/Hemoglobin.total in Blood Hemoglobin A1c Lab Routine Missed menses , unspecified gestational age Ordered: 10/24/2024 [facility] Comment on above: Ordered: 10/24/2024 Hepatitis B virus surface Ag [Presence] in Serum or Plasma by Immunoassay Hepatitis B surface antigen Lab Routine Missed menses , unspecified gestational age Ordered: 10/24/2024 [facility] Comment on above: Ordered: 10/24/2024 Hepatitis C virus Ab [Presence] in Serum or Plasma by Immunoassay Hepatitis C antibody Lab Routine Missed menses , unspecified gestational age Ordered: 10/24/2024 [facility] Comment on above: Ordered: 10/24/2024 HIV-1/HIV-2 antigen/antibody combination immunoassay HIV-1 and HIV-2 antibodies Lab Routine Missed menses , unspecified gestational age Ordered: 10/24/2024 [facility] Comment on above: Ordered: 10/24/2024 Human papilloma viru s DNA [Presence] in Unspecified specimen by Probe with amplification HPV DNA probe, amplified Microbiology Routine Well woman exam with routine gynecological exam Ordered: 09/16/2024 [facility] Comment on above: Ordered: 09/16/2024 End: 01-21-2026 Natriuretic peptide B [Mass/volume] in Blood B-type natriuretic peptide Lab Routine Chronic hypertension affecting 1 Occurrences starting 01/21/2025 until 01/21/2026 [employer] Work Phone: Comment on above: 1 Occurrences starti ng 01/21/2025 until 01/21/2026 Neisseria gonorrhoea e DNA [Presence] in Unspecified specimen by DANA with probe detection Neisseria gonorrhea DNA probe, direct Lab Routine STD exposure Vaginal discharge Ordered: 12/23/2024 [facility] Comment on above: Ordered: 12/23/2024 End: 01-21-2026 Protein creat ratio Protein creat ratio Lab Routine Chronic hypertension affecting 1 Occurrences starting 01/21/2025 until 01/21/2026 [facility] Comment on above: 1 Occurrences starti ng 01/21/2025 until 01/21/2026 Protein, urine, 24 hour Protein, urine, 24 hour Lab Routine Second trimester Elevated blood pressure affecting , antepartum induced hypertension, antepartum Antepartum multigravida of advanced maternal age Ordered: 01/27/2025 [facility] Comment on above: Ordered: 01/27/2025 Reagin Ab [Presence] in Serum by RPR RPR Lab Routine Missed menses , unspecified gestational age Ordered: 10/24/2024 [facility] Comment on above: Ordered: 10/24/2024 Rubella antibody, IgG Rubella an tibody, IgG Lab Routine Missed menses , unspecified gestational age Ordered: 10/24/2024 [facility] Comment on above: Ordered: 10/24/2024 SURESWAB(R) ADVANCED VAGINITIS PLUS, TMA SURESWAB(R) ADVANCED VAGINITIS PLUS, TMA Pathology and Cytology Routine STD exposure Vaginal discharge Ordered: 12/23/2024 [facility] Work Phone: Comment on above: Ordered: 12/23/2024 Immunizations Immunization Date Immunization Notes Care Provider Radha maxwell 08-05-2021 COVID-19, mRNA, LNP- S, PF, 30 mcg/0.3 mL dose Helene SPETTEL [facility] 06-25-2021 COVID-19, mRNA, LNP- S, PF, 30 mcg/0.3 mL dose Helene SPETTEL [facility] 02-08-2019 meningococcal ACWY vaccine, unspecified formulation Heleen HAMILTON [facility] 12-14-2009 hepatitis B vaccine, adult dosage Helene SPETTEL [facility] 07-03-2009 hepatitis B vaccine, adult dosage Helene SPETTEL [facility] 06-01-2009 hepatitis B vaccine, adult dosage Helene SPETTEL [facility] 06-01-2009 tetanus toxoid, redu [place] diphtheria toxoid, and acellular pertussis vaccine, adsorbed Helene HAMILTON [facility] 05-16-2001 measles, mumps and rubella virus vaccine Helene HAMILTON [facility] NEGATED: Highlighted row has not occurred!03-08-2022 influenza virus vaccine, unspecified formulation Helene HAMILTON [facility] NEGATED: Highlighted row has not occurred!03-16-2021 SARS-CoV-2 (COVID-19) mRNA-9603 vaccine Helene HAMILTON [facility] NEGATED: Highlighted row has not occurred!10-20-2020 influenza virus vaccine, unspecified formulation Helene HAMILTON [facility] Payers Date Payer Category Payer Unknown [id number] 2022 [facility] [id number] 2022 [employer] - PPO ANTHEM [id number] 2022 Unknown [id number] 1988 Unknown [id number] 2.16840.1.864815.3.579. 2.727 1988 Unknown [id number] 2.16840.1.924465.3.579. 2.727 1988 Unknown [id number] 2.16840.1.477911.3.579. 2.727 1988 Unknown [id number] 2.16840.1.137882.3.579. 2.1286 1988 Unknown [id number] 2.16840.1.059521.3.579. 2.1286 1988 Unknown [id number] 2.16840.1.584761.3.579. 2.1286 1988 Unknown [id number] 2.16840.1.745527.3.579. 2.1286 1988 Unknown [id number] 2.16840.1.828838.3.579. 2.1259 1988 Unknown [id number] 2.16.840.1.659699.3.579. 2.9 1988 Unknown [id number] 2.16.840.1.302131.3.579. 2.9 1988 Unknown [id number] 2.16.840.1.726033.3.579. 2.1258 1988 Unknown [id number] 2.16.840.1.017477.3.579. 2.1258 1988 Unknown [id number] 2.16.840.1.766419.3.579. 2.1258 1988 Unknown [id number] 2.16.840.1.995550.3.579. 2.9 1988 Unknown [id number] 2.16.840.1.431175.3.579. 2.9 1988 Unknown [id number] 2.16.840.1.777736.3.579. 2.1258 1988 Unknown [id number] 2.16.840.1.442516.3.579. 2.9 1988 Unknown [id number] 2.16.840.1.168786.3.579. 2.9 1988 Unknown [id number] 2.16.840.1.940825.3.579. 2.1259 Social History Date Type Detail Facility Start: 03-08-2022 End: 02-16-2025 Tobacco smoking status Never smoked tobacco (finding) [facility] Start: 01-21-2025 Sex Assigned At Female F [facility] Start: 12-06-2024 [facility] consumption unknown [facility] Start: 1990 Sex assigned at Not on file [facility] Start: 09-19-2024 [facility] Start: 01-10-2019 End: 12-05-2024 Sex Female (finding) [facility] Start: 01-21-2025 Tobacco smoking stat us SDIS Ex-smoker [facility] History of tobacco use Current smoker [facility] History of tobacco use Cigarette Smoker P [facility] Start: 01-21-2025 Tobacco use and exposure Smokeless tobacco non-user [facility] Start: 01-21-2025 Alcoholic beverage intake Ex-drinker (finding) [facility] Start: 01-21-2025 History of Social function [facility] Within the past 12 months we worried whether our food would run out before we got money to buy more. Never True [facility] Sexual Orientation [facility] Medical Equipment Procedure Code Equipment Code Equipment Origin al Text Equipment Identifier Dates 1 strip by other route in the morning and 1 strip at noon and 1 strip in the evening and 1 strip before bedtime. [id number] Start: 01-21-2025 Fasting and 1hr postprandial [id number] Start: 01-21-2025 1 strip by In Vi tro route Daily Use in the morning prior to breakfast, 1 hour after each meal for a total of 4times daily. [id number] Start: 01-27-2025 End: 02-26-2025 1 each by In Vit ro route Daily Use to check FSBS four times daily [id number] Start: 01-27-2025 End: 02-26-2025 Use four times d aily to check FSBS as directed. [id number] Start: 01-29-2025 End: 01-29-2026 1 each by In Vit ro route Daily Use to check FSBS four times daily [id number] Start: 01-29-2025 End: 02-28-2025 Use as instructed [id number] Start: 04-08-2025 Functional Status Date Assessment Result Facility 05-11-2022 Functional Status N/A [facility] Clinical Notes 03-08-2022 to 04-21-2025 Larisa Chowdary MA - 04/21/2025 3:20 PM Tatiana Cortes NP - 04/14/2025 9:00 AM Mamta Arizmendi LPN - 04/08/2025 11:10 AM Kobe Chowdary MA - 03/24/2025 11:10 AM EDT Note Date & Type Note Facility 04-21-2025 History of Presen t illness Narrative Reason for Appointment: Patient ID: [...] Meter) w/Device kit 1 kit, Does not apply, 4 times daily cetirizine (ZyrTEC) 10 MG tablet Take by mouth glucose blood (RELION GLUCOSE TEST STRIPS) test strip Use four times daily to check FSBS as directed. insulin NPH (Isophane) (HUMULIN N,NOVOLIN N) 5 Units, Subcutaneous, 2 times daily before meals insulin regular (HumuLIN R,NovoLIN R) 100 UNIT/ML injection 5 units sub q in the am and 5 units sub q in the evening insulin syringe 29G X [...] Diagnosis Date Noted Vaginal bleeding affecting early ([facility]) 11/06/2024 headache, antepartum ([facility]) 12/25/2024 Elevated blood pressure affecting , antepartum ([facility]) 01/16/2025 Resolved Ambulatory Problems Diagnosis Date Noted No Resolved Ambulatory Problems Past Medical History: Diagnosis Date ADHD (attention deficit hyperactivity disorder) Anxiety Gestational diabetes ([facility]) Hypertension Insulin resistance PCOS (polycystic ovarian syndrome) HISTORY PAST MEDICAL HISTORY SOCIAL HISTORY Past Medical History: Diagnosis Date ADHD (attention deficit hyperactivity disorder) Anxiety Gestational diabetes ([facility]) Hypertension Insulin resistance PCOS (polycystic [...] Vitals: Estimated body mass index is 33.8 kg/m as calculated from the following: Height as of 05/06/24: 5' 7 . Weight as of 04/14/25: 215 lb 12.8 oz. BP: Patient's last menstrual period was 08/23/2024. ASSESSMENT & PLAN ICD-10-CM 1. Third trimester ([facility]) Z34.93 2. 32 weeks gestation of ([facility]) Z3A.32 Return OB: Patient presents today for a routine obstetrics appointment. Patient is currently 32w4d . Patient states she is doing well but has complaints of being tired due to current . Patient has verbalizes frequent movement. labor precautions was discussed/given and patient was instructed to perform kick counts three times a day. Increase NPH 5 units at night and am to a total of 10 units in am and pm; increase regular by 4 units for a total of 9 units. No orders of the defined types were placed in this encounter. Follow Up: Patient is to return to office in 1 week for routine OB appointment. Documented by Larisa Chowdary MA on behalf of: Mik Borrego DO documented in this encounter [facility] 04-14-2025 History of Presen t illness Narrative Reason for Appointment: Patient ID: [...] Meter) w/Device kit 1 kit, Does not apply, 4 times daily cetirizine (ZyrTEC) 10 MG tablet Take by mouth glucose blood (RELION GLUCOSE TEST STRIPS) test strip Use four times daily to check FSBS as directed. insulin NPH (Isophane) (HUMULIN N,NOVOLIN N) 5 Units, Subcutaneous, 2 times daily before meals insulin regular (HumuLIN R,NovoLIN R) 100 UNIT/ML injection 5 units sub q in the am and 5 units sub q in the evening insulin syringe 29G X [...] Diagnosis Date Noted Vaginal bleeding affecting early ([facility]) 11/06/2024 headache, antepartum ([facility]) 12/25/2024 Elevated blood pressure affecting , antepartum ([facility]) 01/16/2025 Resolved Ambulatory Problems Diagnosis Date Noted No Resolved Ambulatory Problems Past Medical History: Diagnosis Date ADHD (attention deficit hyperactivity disorder) Anxiety Gestational diabetes ([facility]) Hypertension Insulin resistance PCOS (polycystic ovarian syndrome) HISTORY PAST MEDICAL HISTORY SOCIAL HISTORY Past Medical History: Diagnosis Date ADHD (attention deficit hyperactivity disorder) Anxiety Gestational diabetes ([facility]) Hypertension Insulin resistance PCOS (polycystic ovarian syndrome) [...] Constitutional: Appearance: Normal appearance. She is well-developed. Cardiovascular: Rate and Rhythm: Normal rate and [...] nursing note reviewed. Exam conducted with a receiving clerk present. Vitals: Estimated body mass index is 33.8 kg/m as calculated from the following: Height as of 05/06/24: 5' 7 . Weight as of this encounter: 215 lb 12.8 oz. BP: 126/82 Patient's last menstrual period was 08/23/2024. ASSESSMENT & PLAN ICD-10-CM 1. Third trimester ([facility]) Z34.93 POCT urinalysis dipstick manually resulted 2. 31 weeks gestation of ([facility]) Z3A.31 POCT urinalysis dipstick manually resulted Return OB: Patient presents today for a routine obstetrics appointment. Patient is currently 31w4d . Patient states she is doing well but has complaints of being tired due to current . Patient has verbalizes frequent movement. labor precautions was discussed/given and patient was instructed to perform kick counts three times a day. Orders Placed This Encounter Procedures POCT urinalysis dipstick manually resulted Follow Up: Patient is to return to office in 1 week for routine OB appointment. Will increase NPH and Novolin by 5 units. Documented by Pricilla Cortes NP on behalf of: Mik Borrego DO documented in this encounter [facility] 04-08-2025 History of Presen t illness Narrative Reason for Appointment: Patient ID: [...] Meter) w/Device kit 1 kit, Does not apply, 4 times daily cetirizine (ZyrTEC) 10 MG tablet Take by mouth glucose blood (RELION GLUCOSE TEST STRIPS) test strip Use four times daily to check FSBS as directed. insulin NPH (Isophane) (HUMULIN N,NOVOLIN N) 5 Units, Subcutaneous, 2 times daily before meals insulin regular (HumuLIN R,NovoLIN R) 100 UNIT/ML injection 5 units sub q in the am and 5 units sub q in the evening insulin syringe 29G X [...] Diagnosis Date Noted Vaginal bleeding affecting early ([facility]) 11/06/2024 headache, antepartum ([facility]) 12/25/2024 Elevated blood pressure affecting , antepartum ([facility]) 01/16/2025 Resolved Ambulatory Problems Diagnosis Date Noted No Resolved Ambulatory Problems Past Medical History: Diagnosis Date ADHD (attention deficit hyperactivity disorder) Anxiety Gestational diabetes ([facility]) Hypertension Insulin resistance PCOS (polycystic ovarian syndrome) HISTORY PAST MEDICAL HISTORY SOCIAL HISTORY Past Medical History: Diagnosis Date ADHD (attention deficit hyperactivity disorder) Anxiety Gestational diabetes ([facility]) Hypertension Insulin resistance PCOS (polycystic ovarian syndrome) [...] Constitutional: Appearance: Normal appearance. She is well-developed. Cardiovascular: Rate and Rhythm: Normal rate and [...] nursing note reviewed. Exam conducted with a receiving clerk present. Vitals: Estimated body mass index is 33.36 kg/m as calculated from the following: Height as of 05/06/24: 5' 7 . Weight as of this encounter: 213 lb. BP: 122/78 Patient's last menstrual period was 08/23/2024. ASSESSMENT & PLAN ICD-10-CM 1. Third trimester ([facility]) Z34.93 POCT urinalysis dipstick manually resulted 2. 30 weeks gestation of ([facility]) Z3A.30 3. Gestational diabetes mellitus (GDM), antepartum, gestational diabetes method of control unspecified ([facility]) O24.419 insulin NPH, Isophane, (HumuLIN N,NovoLIN N) 100 UNIT/ML injection insulin syringe 29G X 1/2 0.5 mL misc insulin regular (HumuLIN R,NovoLIN R) 100 UNIT/ML injection Return OB: Patient presents today for a routine obstetrics appointment. Patient is currently 30w5d . Patient states she is doing well but has complaints of being tired due to current . Patient has verbalizes frequent movement. labor precautions was discussed/given and patient was instructed to perform kick counts three times a day. Pt to start 5units of regular and nph in the morning and in the evening. Pt voiced understanding- pt to email sugars to Kimi weekly. Orders Placed This Encounter Procedures POCT urinalysis dipstick manually resulted Follow Up: Patient is to return to office in 1 week for routine OB appointment. Documented by Mariam Arizmendi LPN on behalf of: Mik Borrego DO documented in this encounter [facility] 03-24-2025 History of Presen t illness Narrative Reason for Appointment: Patient ID: [...] Meter) w/Device kit 1 kit, Does not apply, 4 times daily cetirizine (ZyrTEC) 10 MG tablet Take by mouth glucose blood (RELION GLUCOSE TEST STRIPS) test strip Use four times daily to check FSBS as directed. MAGnesium-Oxide 400 mg, Oral, Daily NIFEdipine XL [...] Date Noted Vaginal bleeding affecting early 11/06/2024 headache, antepartum 12/25/2024 Elevated blood pressure affecting , antepartum 01/16/2025 Resolved Ambulatory Problems Diagnosis Date Noted No Resolved Ambulatory Problems Past Medical History: Diagnosis Date ADHD (attention deficit hyperactivity disorder) (CMS/HCC) Anxiety Gestational diabetes Hypertension (CMS/HCC) Insulin resistance PCOS (polycystic ovarian syndrome) HISTORY PAST MEDICAL HISTORY SOCIAL HISTORY Past Medical History: Diagnosis Date ADHD (attention deficit hyperactivity disorder) (CMS/HCC) Anxiety Gestational diabetes Hypertension (CMS/HCC) Insulin resistance PCOS (polycystic ovarian syndrome) Social [...] SYSTEMS Review of Systems: Review of Systems OBJECTIVE Objective: OBGyn Exam Vitals: Estimated body mass index is 33.05 kg/m as calculated from the following: Height as of 05/06/24: 5' 7 . Weight as of 02/24/25: 211 lb. BP: Patient's last menstrual period was 08/23/2024. ASSESSMENT & PLAN ICD-10-CM 1. Gestational diabetes mellitus (GDM), antepartum, gestational diabetes method of control unspecified O24.419 US OB follow up transabdominal approach US biophysical profile w non stress test 2. Multigravida of advanced maternal age in third trimester O09.523 US OB follow up transabdominal approach US biophysical profile w non stress test 3. Third trimester Z34.93 4. 28 weeks gestation of Z3A.28 Return OB: Patient presents today for a routine obstetrics appointment. Patient is currently 28w4d . Patient states she is doing well but has complaints of being tired due to current . Patient has verbalizes frequent movement. labor precautions was discussed/given and patient was instructed to perform kick counts three times a day. Orders Placed This Encounter Procedures US OB follow up transabdominal approach US biophysical profile w non stress test Follow Up: Patient is to return to office in 2 week for routine OB appointment. Documented by Larisa Chowdary MA on behalf of: Mik Borrego DO documented in this encounter [facility] 02-24-2025 History of Presen t illness Narrative Reason for Appointment: Patient ID: [...] Meter) w/Device kit 1 kit, Does not apply, 4 times daily cetirizine (ZyrTEC) 10 MG tablet Take by mouth Glucose Blood (Blood Glucose Test) strip 1 strip, In Vitro, Daily, Use in the morning prior to breakfast, 1 hour after each meal for a total of 4times daily. glucose blood (RELION GLUCOSE TEST STRIPS) test strip Use four times daily to check FSBS as directed. Lancets Ultra Thin misc 1 each, In Vitro, Daily, Use to check FSBS four times daily Lancets Ultra Thin misc 1 each, In Vitro, Daily, Use to check FSBS four times daily NIFEdipine XL (PROCARDIA XL) 60 mg, Oral, Daily, Do not crush, chew, or split. ALLERGIES Allergies Allergen Reactions Metformin Other Reaction(s): Rhabdomyolysis Other Reaction(s): Other (See Comments) Intolerance, rhabdomylosis Phentermine Shortness of breath Other Reaction(s): Hives Gelatin Metformin Hcl Other Reaction(s): diarrhea Metformin Hcl Er Other Reaction(s): Rhabdomyolsis Other Gelatin Pollen Extract Other Reaction(s): Unknown Propranolol Other Reaction(s): asthma flare up Sulfites Trulicity [Dulaglutide] Hives Prednisone Rash PROBLEMS Active Ambulatory Problems Diagnosis Date Noted Vaginal bleeding affecting early 11/06/2024 headache, antepartum 12/25/2024 Elevated blood pressure affecting , antepartum 01/16/2025 Resolved Ambulatory Problems Diagnosis Date Noted No Resolved Ambulatory Problems Past Medical History: Diagnosis Date ADHD (attention deficit hyperactivity disorder) (CMS/HCC) Anxiety Gestational diabetes Hypertension (CMS/HCC) Insulin resistance PCOS (polycystic ovarian syndrome) HISTORY PAST MEDICAL HISTORY SOCIAL HISTORY Past Medical History: Diagnosis Date ADHD (attention deficit hyperactivity disorder) (CMS/HCC) Anxiety Gestational diabetes Hypertension (CMS/HCC) Insulin resistance PCOS (polycystic ovarian syndrome) Social [...] reviewed. Vitals: Estimated body mass index is 33.05 kg/m as calculated from the following: Height as of 05/06/24: 5' 7 . Weight as of this encounter: 211 lb. BP: 122/74 Patient's last menstrual period was 08/23/2024. ASSESSMENT & PLAN ICD-10-CM 1. Second trimester Z34.92 POCT urinalysis dipstick manually resulted 2. 24 weeks gestation of Z3A.24 POCT urinalysis dipstick manually resulted Return OB: Patient presents today for a routine obstetrics appointment. Patient is currently 24w4d . Patient states she is doing well but has complaints of being tired due to current . Patient has verbalizes frequent movement. Orders Placed This Encounter Procedures POCT urinalysis dipstick manually resulted Follow Up: Patient is to return to office in 4 week for routine OB appointment. Documented by LISA Lomeli documented in this encounter [facility] 02-17-2025 Note Echocardiology Procedure Exam Date/Time Accession # Ordering Echo Transthoracic 02/17/2025 13:32 EDT [id number] Mik BORREGO DO Complete CPT code 69519 [id number] Reason for Exam (Echo Transthoracic Complete) Z34.92, O16.9, O13.9, O09.[address] [address] Adult Echocardiogram Report Name: JULISSA WEEMS Study Date: 02/17/2025 12:56 PM BP: 131/88 mmHg Patient Location: [facility] Ambulatory(s) [facility] [place] HR: 84 : 1990 Gender: Female Height: 67 in Age: 34 yrs Ethnicity: [facility] Weight: 211 lb Reason For Study: Z34.92, O16.9, O13.9, O09.529 BSA: 2.1 m2 History: No cardiac history per patient Ordering Physician: ELMO^Mik^R Referring Physician: Mik BORREGO Performed By: Christina Dubois, NEEMA Interpretation Summary Left ventricular systolic function is normal. Ejection Fraction = 60-65%. No significant valvular disease. Normal TTE. Procedure A complete two-dimensional transthoracic echocardiogram was performed (2D, M-mode, spectral and color flow Doppler). Left Ventricle [...] Doppler Measurements & Calculations MV E max martha: 80.6 cm/sec MV dec time: 0.18 sec Ao V2 max: 177.0 cm/sec LV V1 max P.5 mmHg MV A max martha: 71.6 cm/sec Ao max P.5 mmHg LV V1 max: 117.4 cm/sec MV E/A: 1.1 Lat Peak E' Martha: 12.4 cm/sec AMARJIT(V,D): 1.7 cm2 E/E' Lat: 6.5 Med Peak E' Martha: 12.3 cm/sec E/E' Med: 6.6 Echocardiology Report RAP systole: 3.0 mmHg AV VR: 0.66 Measurements from [facility] ED Mass (HM): 135.0 grams LAEF (HM): 79.0 % BSA (HM): 2.1 m2 FANY (HM): 23.0 ml/m2 LAVmax (HM): 47.0 ml LAVmin (HM): 10.0 ml Pat Height (HM): 170.0 cm Pat Weight (HM): 95.7 kg FINAL REPORT Dictated: 02/17/2025 12:56 pm Shahram Tao MD Signed (Electronic Signature): 02/17/2025 2:11 pm Signed by: Shahram Tao MD Transcribed by: MEGAN Technologist: [facility] 02-04-2025 Miscellaneous Notes Spoke with patient to reschedule DBE, she took @ [facility] so we will not follow her blood sugars. documented in this encounter [facility] 02-04-2025 Telephone encounter Note Spoke with patient to reschedule DBE, she took @ [facility] so we will not follow her blood sugars. [facility] 01-27-2025 History of Presen t illness Narrative Reason for Appointment: Patient ID: Julissa Weems is a 34 y.o. female who presents for Routine Visit Patient presents today for Return OB appointment. MEDICATIONS Current Outpatient Medications Medication Instructions albuterol HFA 90 mcg/act inhaler Alcohol Swabs (Alcohol Prep Pad) 70 % pads 1 Pad, Topical, Daily, Use four times daily to check FSBS. Blood Glucose Monitoring Suppl ([employer]-Stored[employer] Glucometer) w/Device kit 1 kit, Does not apply, Daily, Use four times daily to check FSBS. In the morning prior to breakfast & 1 hour after each meal for a total of 4times daily. cetirizine (ZyrTEC) 10 MG tablet Take by mouth Glucose Blood (Blood Glucose Test) strip 1 strip, In Vitro, Daily, Use in the morning prior to breakfast, 1 hour after each meal for a total of 4times daily. Lancets Ultra Thin misc 1 each, In Vitro, Daily, Use to check FSBS four times daily NIFEdipine XL (PROCARDIA XL) 30 mg, Twice a day (mid-day and evening) ALLERGIES Allergies Allergen Reactions Metformin Other Reaction(s): Rhabdomyolysis Other Reaction(s): Other (See Comments) Intolerance, rhabdomylosis Phentermine Shortness of breath Other Reaction(s): Hives Gelatin Metformin Hcl Other Reaction(s): diarrhea Metformin Hcl Er Other Reaction(s): Rhabdomyolsis Other Gelatin Pollen Extract Other Reaction(s): Unknown Propranolol Other Reaction(s): asthma flare up Sulfites Trulicity [Dulaglutide] Hives Prednisone Rash PROBLEMS Active Ambulatory Problems Diagnosis Date Noted Vaginal bleeding affecting early 11/06/2024 headache, antepartum 12/25/2024 Elevated blood pressure affecting , antepartum 01/16/2025 Resolved Ambulatory Problems Diagnosis Date Noted No Resolved Ambulatory Problems Past Medical History: Diagnosis Date ADHD (attention deficit hyperactivity disorder) ([facility]) Anxiety Gestational diabetes Hypertension ([facility]) Insulin resistance PCOS (polycystic ovarian syndrome) HISTORY PAST MEDICAL HISTORY SOCIAL HISTORY Past Medical History: Diagnosis Date ADHD (attention deficit hyperactivity disorder) (CMS/HCC) Anxiety Gestational diabetes Hypertension (CMS/HCC) Insulin resistance PCOS (polycystic ovarian syndrome) Social [...] Constitutional: Appearance: Normal appearance. She is well-developed. Cardiovascular: Rate and Rhythm: Normal rate and [...] nursing note reviewed. Exam conducted with a receiving clerk present. Vitals: Estimated body mass index is 33.11 kg/m as calculated from the following: Height as of 05/06/24: 5' 7 . Weight as of this encounter: 211 lb 6.4 oz. BP: 136/80 Patient's last menstrual period was 08/23/2024. ASSESSMENT & PLAN ICD-10-CM 1. 20 weeks gestation of Z3A.20 POCT urinalysis dipstick manually resulted 2. Second trimester Z34.92 POCT urinalysis dipstick manually resulted 3. Diabetes mellitus screening Z13.1 CBC Glucose tolerance, 1 hour CBC Glucose tolerance, 1 hour 4. Elevated blood pressure affecting , antepartum O16.9 5. Gestational diabetes mellitus (GDM), antepartum, gestational diabetes method of control unspecified O24.419 Lancets Ultra Thin misc Alcohol Swabs (Alcohol Prep Pad) 70 % pads Glucose Blood (Blood Glucose Test) strip Blood Glucose Monitoring Suppl ([employer] Glucometer) w/Device kit 6. Elevated glucose tolerance test R73.09 Lancets Ultra Thin misc Alcohol Swabs (Alcohol Prep Pad) 70 % pads Glucose Blood (Blood Glucose Test) strip Blood Glucose Monitoring Suppl (D-Care Glucometer) w/Device kit Return OB: Patient presents today for a routine obstetrics appointment. Patient is currently 20w4d . Patient states she is doing well but has complaints of being tired due to current . Patient has verbalizes frequent movement. labor precautions was discussed/given and patient was instructed to perform kick counts three times a day. Orders Placed This Encounter Procedures CBC Glucose tolerance, 1 hour POCT urinalysis dipstick manually resulted Follow Up: Patient is to return to office in 4 week for routine OB appointment. Patient continues to monitor blood pressure at home and prescribed procardia 60 mg XL last week with increase from 30 mg per MFM. She reports elevation in B/P at home and feeling of tachycardia. B/P here today 136/80. She will continue to monitor B/P at home and send to us. She reports not measuring her glucose at home and a glucose monitor and test strips are sent in to the pharmacy today. No lower extremity edema today and no protien in urine today. M recommend baseline EKG and BNP, CBC, CMP, uric acid and lactate. 24 hour urine protein and cardiac echo orders will be given today. Documented by Pricilla Cortes NP on behalf of: Mik Borrego DO documented in this encounter [facility] 01-21-2025 Miscellaneous Notes I tried to schedule pt sooner for DE,but pt refused all the days till 02-10, documented in this encounter [facility] 01-21-2025 Telephone encounter Note I tried to schedule pt sooner for DE,but pt refused all the days till 02-10, [facility] 01-21-2025 History of Presen t illness Narrative REASON FOR CONSULTATION: AMA HISTORY OF PRESENT ILLNESS: Julissa Weems is a pleasant 34 y.o. at 18w6d due on Estimated Date of Delivery: 06/12/25. complicated by: Advanced maternal age, 34 years old Obesity affecting . GDMA vs prepregnancy pregestational diabetes. Elevated early GDM at 163 at 16wk GA, follow up 3hr GTTT (92/ 205 / 220/ 107). A1c 5.8% at 9wk GA. ?CHTN. Initial elevated BP 142/84 at 15wk GA and then sBP 140s-160s at 16wks. Initiated on procardia 30mg daily at 18wk GA. Family h/o HTN in maternal GM and GF, and maternal half sister. Today, the patient is doing well. She denies headaches, vision changes, nausea, vomiting, right upper quadrant or epigastric pain, SOB or chest pain. She denies contractions, vaginal bleeding, leaking of fluid. She reports good movement. 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 I have reviewed the pertinent available patient records including but not limited to notes, labs and images. PAST OBSTETRICAL HISTORY: OB History Para Term AB Living 1 SAB IAB Ectopic Multiple Live Births # Outcome Date GA Lbr Junior/2nd Weight Sex Type Anes PTL Lv 1 Current MEDICAL HISTORY: Past Medical History: Diagnosis Date ADHD Anxiety Asthma allergic asthma Insulin resistance PCOS (polycystic ovarian syndrome) SURGICAL HISTORY: Past Surgical History: Procedure Laterality Date APPENDECTOMY 2022 FAMILY/GENETIC HISTORY: Family History Problem Relation Age of Onset Diabetes Paternal Grandfather Hypertension Maternal Grandmother Hypertension Maternal Grandfather Other Problem (renal cell carcinoma) Father Hypertension Father Breast cancer Paternal Aunt Colon cancer Paternal Uncle Autism Neg Hx Developmental delay Neg Hx Blood Clots Neg Hx Clotting disorder Neg Hx Down syndrome Neg Hx Heart defect Neg Hx SOCIAL HISTORY: Social History Tobacco Use Smoking status: Former Types: Cigarettes Smokeless tobacco: Never Vaping Use Vaping status: Never Used Substance Use Topics Alcohol use: Not Currently Drug use: Never ALLERGIES: Allergies Allergen Reactions Phentermine Shortness Of Breath Gelatin Metformin Other (See Comments) Intolerance, rhabdomylosis Sulfites Trulicity [Dulaglutide] Hives CURRENT MEDICATIONS: Current Outpatient Medications: albuterol (PROVENTIL HFA;VENTOLIN HFA) 90 mcg/actuation inhaler, Inhale 2 puffs every 6 (six) hours as needed for wheezing., Disp: , Rfl: cetirizine (ZyrTEC) 10 mg tablet, Take 1 tablet (10 mg total) by mouth in the morning., Disp: , Rfl: magnesium oxide (MAGOX) 400 mg tablet, Take 1 tablet (400 mg total) by mouth in the morning., Disp: , Rfl: NIFEdipine XL (PROCARDIA XL) 30 mg 24 hr tablet, Take 1 tablet (30 mg total) by mouth in the morning and at bedtime., Disp: , Rfl: no115/iron/folic acid ( 19 ORAL), Take 1 tablet by mouth once daily., Disp: , Rfl: aspirin 81 mg chewable tablet, Chew 1 tablet (81 mg total) and swallow in the morning., Disp: 30 tablet, Rfl: 6 blood sugar diagnostic strip, 1 strip by other route in the morning and 1 strip at noon and 1 strip in the evening and 1 strip before bedtime., Disp: 120 strip, Rfl: 6 lancets 30 gauge misc, Fasting and 1hr postprandial, Disp: 100 each, Rfl: 1 RECENT HOSPITALIZATION: none HABITS: Patient activity no restrictions, diet no restrictions REVIEW OF SYSTEMS: Head and Neck: Negative for any dizziness and headaches. Cardiovascular and Respiratory System: Denies any chest pain, shortness of breath, and coughing. Abdominal and System: Denies any abdominal pain, nausea, vomiting, vaginal bleeding, and vaginal discharge REVIEW OF TESTS AND ULTRASOUND REPORTS: Referral records and epic chart were reviewed Pertinent Ultrasound findings are see formal ultrasound report. PHYSICAL EXAMINATION: BP 151/74 (BP Site: Right Arm, BP Postition: Sitting) Pulse 94 Ht 171.5 cm (5' 7.5 ) Wt 97.3 kg (214 lb 6.4 oz) LMP 08/23/2024 BMI 33.08 kg/m Well-appearing in no distress. Respirations not labored, speaking comfortably in full sentences Gravid abdomen IMAGING No image results found. OVERALL ASSESSMENT -Julissa Weems is a pleasant 34 y.o. at 18w6d -advanced maternal age -chronic hypertension -early GDMA versus pre gestational prediabetes COUNSELING Advanced maternal age I discussed with the patient the risks of advanced maternal age as it relates to chromosomal abnormalities. Specifically, maternal age of 34 (at time of delivery) is associated with 1 in 236 risk of trisomy 21, and 1 in 104 risk of any chromosomal abnormalities. She had sonographic evaluation today and her ultrasound showed no anomalies or soft markers for aneuploidy. I explained that ultrasound is not diagnostic of chromosomal abnormalities and that 50% of babies with Trisomy 21 will have normal ultrasounds. Options for further testing were discussed in detail during today's visit. The patient was offered cell free DNA screening. Although cell-free DNA is not a diagnostic test , it has high sensitivity and specificity for the most common aneuploidies. A negative cell free DNA does not ensure an unaffected . A patient with a positive screen should be referred for genetic counseling and offered invasive diagnosis for confirmation of screen results. Limitations of cell free DNA screening were reviewed with the patient. Cell free DNA does not replace the accuracy and diagnostic precision of amniocentesis which remains an option for all women. We discussed the option of amniocentesis for definitive genetic testing. I discussed complications of invasive testing, including a 1 in 900 risk for labor, rupture of membranes, infection or bleeding that may lead to pre-viable or delivery. The patient declined cell free DNA and amniocentesis. In addition to an increased risk for chromosomal abnormalities, women with advanced maternal age are also at higher risk for spontaneous abortions, gestational diabetes, hypertensive disorders in including preeclampsia, indicated delivery, as well as growth abnormalities, and stillbirth. Chronic Hypertension We discussed the risks of chronic hypertension including growth restriction, increased risk of preeclampsia, delivery, and/ or placental abruption. With mild hypertension, no underlying cardiac disease, and normal renal function, most women do well in . We recommend baseline preeclampsia labs, urine protein evaluation, EKG and BNP. I explained that acceptable blood pressures in pregnancies with chronic hypertension < 140 systolic and <90 diastolic. Antihypertensive medication treatment with aim to maintain BPs <140/90 have demonstrated improvements in outcomes including development of severe preeclampsia, indicated delivery < 35 weeks, abruption, or , without increased risk of growth restriction or other serious maternal or adverse outcomes. Based on this data, ACOG recommends utilizing 140/90 as the threshold for initiation or titration of medical therapy for chronic hypertension in , rather than the previously recommended threshold of 160/110. Reference: PMID: [id number], 2021. Blood pressures do increase as progresses and it is possible that she may require an increase in her medication dosing. However, any significant exacerbation in baseline BPs in after 20 weeks in a patient with CHTN should be worked up closely for possible superimposed preeclampsia. Given persistently elevated blood pressures despite patient compliance with Procardia 30 mg daily, Procardia was increased to 30 mg twice daily today. We discussed the safety profile of nifedipine and betal blockers when used to treat chronic hypertension in . I recommended serial growth ultrasounds every 4 weeks after 20 weeks to ensure appropriate growth. In addition, testing recommended should be initiated at 32 weeks with once weekly NST and weekly SARA assesent, increase to twice weekly NSTs with weekly SARA at 36 weeks gestational age. With uncomplicated hypertension, reassuring testing, and no evidence of preeclampsia it is reasonable to deliver at 39 weeks. If complications arise, it may be necessary to deliver earlier. I also recommend baby aspirin once daily to reduce the risk of preeclampsia. There have been several dosing strategies for low dose aspirin for preeclampsia prevention, 81 mg (endorsed by ACOG) and 150 mg daily. Our practice continues to endorse the 81 mg dosing regimen for preeclampsia prevention as is recommended by the [employer] Committee Opinion No. 743. Higher doses (150mg) have been studied, but utilized a screening strategy that is not widely performed in the [place] (serum analytes and uterine artery Doppler), limiting the generalizability of the findings. GDMA Gestational diabetes is a is a state of carbohydrate intolerance with subsequently insulin resistance and hyperglycemia. This is a malfunction or dysfunction of glucose sensors in the liver with inappropriate release of glucose followed by hyperinsulinemia followed by normal insulin secretion and then relatively deficiency in insulin secretion resulting in both hyperglycemia and associated hypertriglyceridemia. This along with placental hormones such as human placental lactogen and TNF alpha cause hyperglycemia. The patient eventually develops insulin resistance and hyperglycemia, thus the patient's insulin is not sufficient to achieve a normal glycemic state. I informed the patient that maternal hyperglycemia results in hyperglycemia leading to adverse outcomes in the growth and development. We reviewed the implications and risks of diabetes in . Diabetes in is associated with poorer outcomes if blood glucose levels are not well controlled. Potential effects of uncontrolled diabetes , or hyperglycemia, include: maternal risks (abnormal labors, prolonged labors, delivery, hemorrhage), risks (LGA profile, shoulder dystocia, stillbirth, delayed lung maturation) and subsequent risks. In addition, women with diabetes in are at increased risk of developing hypertension diseases in ,such as gestational hypertension, or preeclampsia. Patient was explained that the high risk of shoulder dystocia in fetuses with EFW 4500 gm or higher. Long-term risk to offspring from poor maternal glycemic control include: obesity, cardiovascular disease, impaired glucose tolerance and Type 2 diabetes. Treatment for diabetes in : Lifestyle modification with a healthy diet and increasing physical activity can help manage hyperglycemia, and is therefore always encouraged. We briefly discussed diet modifications and physical activity. Glucose goals in : Fasting 60 - 95: Mean fasting glucose values are important in managing diabetes in women because they provide overall glycemic estimate, and are predictive of increased fat mass in the women s offspring. Increased fat mass has been shown to be associated with the development of childhood obesity, and diabetes. One hour postprandial 90 - 140: Postprandial measurements are important in management of diabetes in because they are associated with incidence of large for gestational age infants, and lower rates of delivery for cephalopelvic disproportion when well controlled. SUMMARY/RECOMMENDATION: Declined aneuploidy screening and diagnostic genetic testing Recommend patient monitor fingersticks 4 times daily, fasting and 1 hour postprandials [facility] and diabetes counseling recommend obtaining baseline EKG and BNP in the setting of chronic hypertension and maternal age recommend baseline 24 hour urine protein in addition to CBC CMP uric acid and lactate dehydrogenase Re-initiate daily aspirin for attempted prevention of preeclampsia Increased Procardia to 30 mg twice daily monitor BP daily at home, BP cuff prescribed, BP logs to be reviewed with primary OB uptitrate antihypertensives, either with labetalol or nifedipine, to maintain blood pressure goal of less than 140/90 if she develops severe range BPs in this , I recommend she be admitted to the hospital for evaluation of suspected superimposed preeclampsia. Incomplete level 2 anatomy ultrasound echocardiogram, attempt completion in 4-6 weeks through [facility] serial growth ultrasounds every 4 weeks following completion of level 2 anatomy US, through [facility] Recommend twice weekly testing starting at 32 weeks gestational, through primary OB Delivery from 38 0/7 weeks to 39 6/7 weeks of gestation for women with chronic hypertension who are not prescribed medication or from 37 0/7 weeks to 39 6/7 weeks of gestation for women whose chronic hypertension is well-controlled with medication. Timing of delivery can change pending clinical course Obtain a 2-hour GTT 6-8 weeks . Also recommend yearly evaluation of blood glucose as patient is at an increased risk of developing diabetes later on. Follow up in [facility] in 2 weeks DISPOSITION: At this point the patient is in complete care of her meat clerk. Patient does have ultrasound and office visit scheduled with us. Thank you for allowing me to participate in the care of Julissa Weems. If there any questions please do not hesitate to contact us. Total time spent was 65 minutes: Preparing to see the patient (e.g., review of tests) Obtaining and/or reviewing separately obtained history Performing a medically appropriate examination and/or evaluation Counseling and educating the patient/family/caregiver Ordering medications, tests, or procedures Referring and communicating with other health home care associate (not separately reported) Documenting clinical information in the electronic or other health record Independently interpreting results (not separately reported) and communicating results to the patient/family/caregiver Bruce Perez MD [place] [address] [facility], the CDC, and other organizations representing maternal and public health professionals recommend that , , and lactating people and those considering receive the COVID-19 vaccination. Vaccination is the best method to reduce maternal and complications of SARS-CoV-2 infection. This document was created with [employer] technology. Though I make every effort to review the dictation as it is transcribed, on occasion the spoken word can be misinterpreted by the technology leading to inappropriate words, phrases, or sentences. This note is addressed to the requesting provider as a consultation for clinical guidance. Specific medical abbreviations are occasionally used and those are generally approved by the [place]?Board of?Obstetrics and?Gynecology?as well as?[place] luis abbreviations. The above plan of care was based solely on the diagnoses for which a consultation was requested. ?More frequent testing may be indicated based on her other medical/obstetrical conditions. The management of other or medical conditions is beyond the scope of requested consultation and will continue to be followed by the primary meat clerk or primary care provider. Note to patient: The Century Cures Act makes medical notes like these available to patients in the interest of transparency. However, be advised this is a medical document. It is intended as peer to peer communication. It is written in medical language and may contain abbreviations or verbiage that are unfamiliar. It may appear blunt or direct. Medical documents are intended to carry relevant information, facts as evident, and the clinical opinion of the practitioner. Headache/epigastric pain/blurry vision/swelling? Headaches that have gotten better with blood pressure medication, slight swelling in hands, swelling in general Cramping/contractions? No Abnormal vaginal discharge? No Spotting/vaginal bleeding? No Loss or gush of fluid like your water may have broken? No Do you have cats at home? No Do you change the litter box (reason: risk of toxoplasmosis)? N/A Genetic testing done this here or other office? No Have you been seen here at [facility] in a previous ? No Recent ER visits or hospitalizations? No Bring blood sugar log or meter with you today? (Please bring them with you for every visit at [facility]) N/A Flu vaccine (Aug-December)? Any concerns that you would like me to mention to the provider today? No documented in this encounter [facility] 01-17-2025 Miscellaneous Notes Voicemail left on nurse line requesting labs and any genetic testing results be faxed to our office. documented in this encounter [facility] 01-17-2025 Telephone encounter Note Voicemail left on nurse line requesting labs and any genetic testing results be faxed to our office. [facility] 12-23-2024 History of Presen t illness Narrative Reason for Appointment: Patient ID: [...] of: LISA Lomeli documented in this encounter [facility] 11-25-2024 History of Presen t illness Narrative Reason for Appointment: Patient ID: [...] were answered. Patient will be sent to [facility] for advanced maternal age and has decided to have US with [facility] rather than [facility] No orders of the defined types were placed in this encounter. Follow Up: Patient is to return in 4 weeks for routine OB appointment. Documented by Juanis Esparza MA on behalf of: Mik Borrego DO documented in this encounter [facility] 10-24-2024 History of Presen t illness Narrative Reason for Appointment: Patient ID: [...] Larisa Chowdary MA documented in this encounter [facility] 09-16-2024 History of Presen t illness Narrative Reason for Appointment: Patient ID: [...] nursing note reviewed. Exam conducted with a receiving clerk present. Vitals: Estimated body mass index is [...] Mik Borrego DO documented in this encounter [facility] 10-03-2022 Hospital Discharg e instructions Patient Education 10/03/2022 13:10:38 Nausea and [...] water added (diluted fruit juice). Eat bland, evbx-az-cenwxi foods in small amounts as you are able. These foods include bananas, applesauce, rice, lean meats, toast, and crackers. Avoid fluids that contain a lot of sugar or caffeine, such as energy drinks, sports drinks, and soda. Avoid alcohol. Avoid spicy or fatty foods. General instructions Take sooj-jyn-sqjpjcs and prescription medicines only as told by your health care provider. Drink enough fluid to keep your urine pale yellow. Wash your hands often using soap and water. If soap and water are not available, use hand audit specialist. Make sure that all people in your [...] eating and drinking to prevent dehydration. Take vmpl-ouu-uxlubrf and prescription medicines only as told by [...] 10/09/2006 Document Revised: 01/31/2020 Document Reviewed: 03/19/2019 [employer] Patient Education 2020 [employer]. 10/03/2022 13:10:32 Acute Pain, Adult Acute Pain, [...] Follow these instructions at home: Medicines Take lofd-wsx-olhmxkm and prescription medicines only as told by [...] pain is severe. ?Do not take other qiet-vrt-sbxdmqh pain medicines in addition to prescription pain [...] grains, and fresh fruits and vegetables. ?Take jsdp-toa-tgipvks or prescription medicines. ?Limit foods that are [...] or you are no longer ill. Take bdii-aec-kpbtntb and prescription medicines only as told by [...] 10/23/2016 Document Revised: 02/24/2020 Document Reviewed: 02/24/2020 [employer] Patient Education 2019 [employer]. 10/03/2022 13:10:29 Dysmenorrhea Dysmenorrhea Dysmenorrhea refers to [...] to help relieve pain. General instructions Take aomb-ely-mobfwnl and prescription medicines only as told by [...] 10/09/2006 Document Revised: 09/21/2018 Document Reviewed: 11/11/2017 [employer] Patient Education 2020 [employer]. 10/03/2022 13:10:26 Polycystic Ovarian Syndrome Polycystic Ovarian [...] produces. Follow these instructions at home: Take imra-fuy-dhsdyrg and prescription medicines only as told by [...] 02/02/2006 Document Revised: 09/21/2018 Document Reviewed: 03/26/2017 [employer] Patient Education 2020 [employer]. 10/03/2022 13:10:25 Ovarian Cyst Ovarian Cyst An [...] cyst. Follow these instructions at home: Take qmwo-jse-prmeitu and prescription medicines only as told by [...] 10/09/2006 Document Revised: 01/07/2019 Document Reviewed: 03/12/2017 [employer] Patient Education 2020 [employer]. Follow Up Care 10/03/2022 08:07:39 With:DONA DELAROSA CNP Address: [address] [place] [address] [place] [phone] When: Unknown [facility] 05-12-2022 Hospital Discharg e instructions Patient Education 05/12/2022 14:17:53 Post Op [...] Follow these instructions at home: Medicines Take jsue-nyl-syqbocs and prescription medicines only as told by [...] to keep your urine pale yellow. ?Take mzer-fww-ypqlcse or prescription medicines. ?Eat foods that are [...] and water are not available, use hand audit specialist. ?Change your dressing as told by your [...] 10/09/2006 Document Revised: 04/11/2019 Document Reviewed: 04/11/2019 [employer] Patient Education 2020 [employer]. 05/12/2022 14:04:00 Laparoscopic Appendectomy, Adult Laparoscopic Appendectomy, [...] including vitamins, herbs, eye drops, creams, and atsy-ecs-rnguqmn medicines. Use of steroids (by mouth or [...] provider tells you to take them. Taking amiz-lpa-ooxotrp medicines, vitamins, herbs, and supplements. General instructions [...] 05/23/2005 Document Revised: 04/11/2019 Document Reviewed: 04/11/2019 [employer] Patient Education 2020 [employer]. 05/12/2022 14:03:59 Appendicitis, Adult Appendicitis, Adult Appendicitis [...] to care for your incision. Medicines Take gsha-eqj-tknxslz and prescription medicines only as told by [...] to keep your urine pale yellow. ?Take xgmq-tqz-hesxtck or prescription medicines. ?Eat foods that are [...] 10/09/2006 Document Revised: 03/27/2019 Document Reviewed: 03/27/2019 [employer] Patient Education 2020 [employer]. Follow Up Care 05/11/2022 22:41:15 With:Raman Russell DO Address: [facility] [address], [address] [phone] When: Unknown Comments:Call for followup appointment [facility] 05-12-2022 Evaluation + Plan note Extrac [...] Adult Author:Wiliam Diaz Jr., DO Date:05/12/22 Plan [place] [employer] of Anesthesiologists (ASA) physical status classification: [...] Date:06/14/2022 10:40:00 AM Scheduled Provider:Helene HAMILTON CNP Location:[facility] Appointment Type:FM Open Diagnostic Tests Pending * Basic Metabolic Panel 05/13/22 * CBC w/ Auto Diff 05/13/22 * PT & PTT 05/13/[address] [facility]05-17-2022 Hospital Discharge instructions Patient Education 03/08/2022 12:47:01 [...] height. This can be done either in [place] ([place] or metric measurements. Note that charts are available to help you find your BMI quickly and easily without having to do these calculations yourself. To calculate your BMI in [place] measurements, your health care provider will: [...] medical problems. BMI can be measured using Mauritian measurements or metric measurements. To interpret your [...] 06/20/2005 Document Revised: 09/21/2018 Document Reviewed: 08/22/2018 [employer] Patient Education 2020 [employer]. 03/08/2022 12:46:57 Health Maintenance, Female Health Maintenance, [...] 04/23/2012 Document Revised: 10/02/2019 Document Reviewed: 10/02/2019 [employer] Patient Education 2020 [employer]. Follow Up Care 02/21/2022 15:20:41 With:Helene HAMILTON CNP Address: [address] [address]- When:Within 1 Month(s) [facility] Primary Care Evaluation + Plan note Future Appointments Appointment Date:04/05/2022 11:20:00 AM Scheduled Provider:Helene HAMILTON CNP Location:[facility] [employer] Appointment Type:FM Open [facility] Primary Care Evaluation + Plan note Future Appointments Appointment Date:02/17/2025 01:00:00 PM Scheduled Provider: Location:.[facility] Appointment Type:CV Echo () Future Scheduled Tests Radiology* Echo Transthoracic Complete 02/17/[address] [facility] Evaluation note* Diagnosis Well woman exam with [...] as infective [facility] Diagnosis Advanced maternal age in multigravida, second trimester- Primary Chronic hypertension affecting Prediabetes in mother during Gestational diabetes mellitus (GDM), antepartum, gestational diabetes method of control unspecified 19 weeks gestation of [facility] Chronic hypertension affecting - Primary Advanced maternal age in multigravida, second trimester Prediabetes in mother during Gestational diabetes mellitus (GDM), antepartum, gestational diabetes method of control unspecified [facility] Diagnosis 20 weeks gestation of Second trimester state, incidental Diabetes mellitus screening Screening for diabetes mellitus Elevated blood pressure affecting , antepartum Gestational diabetes mellitus (GDM), antepartum, gestational diabetes method of control unspecified Elevated glucose tolerance test Impaired glucose tolerance test induced hypertension, antepartum Transient hypertension of , antepartum Antepartum multigravida of advanced maternal age [facility] Diagnosis Second trimester state, incidental 24 weeks gestation of [facility] Diagnosis Chronic hypertension affecting - Primary Advanced maternal age in multigravida, second trimester Gestational diabetes mellitus (GDM), antepartum, gestational diabetes method of control unspecified [facility] Diagnosis Gestational diabetes mellitus (GDM), antepartum, gestational diabetes method of control unspecified Multigravida of advanced maternal age in third trimester Third trimester state, incidental 28 weeks gestation of [facility] Diagnosis Chronic hypertension affecting - Primary Gestational diabetes mellitus (GDM), antepartum, gestational diabetes method of control unspecified [facility] Diagnosis Third trimester (HHS-HCC) state, incidental 30 weeks gestation of (HHS-HCC) Gestational diabetes mellitus (GDM), antepartum, gestational diabetes method of control unspecified (HHS-HCC) [facility] Diagnosis Third trimester (HHS-HCC) state, incidental 31 weeks gestation of (HHS-HCC) [facility] Diagnosis Third trimester (HHS-HCC) state, incidental 32 weeks gestation of (HHS-HCC) Insulin controlled gestational diabetes mellitus (GDM) in third trimester (HHS-HCC) Multigravida of advanced maternal age in third trimester (HHS-HCC) Hypertension, unspecified type [facility] Narrative No data available for this section [facility] Primary [facility] Hospital Discharge instructions No data available for this section [facility] Primary Care InstructionsNot on filedocumented in this encounter [facility] filedocumented in this encounter [facility] on filedocumented in this encounter [facility] filedocumented in this [facility] filedocumented in this [facility] filedocumented in this [facility] No data available for this section [facility] Summary Purpose Family History No Family History Records Found No data available for this section No Family History Records FoundNo Family History Records FoundNo Family History Records FoundNo Family History Records FoundNo Family History Records FoundNo Family History Records Found No data available for this section No Family History Records FoundNo Family History Records Found No data available for this section No Family History Records FoundNo Family History [...] section and content) DATE CREATED AUTHOR 05/26/2020 [facility] DATE CREATED AUTHOR AUTHOR'S ORGANIZ ATION 01/28/2025 [facility] DATE CREATED AUTHOR AUTHOR'S ORGANIZ ATION 02/06/2025 [facility] DATE CREATED AUTHOR AUTHOR'S ORGANIZ ATION 02/26/2025 [facility] DATE CREATED AUTHOR AUTHOR'S ORGANIZ ATION 04/01/2025 [facility] DATE CREATED AUTHOR AUTHOR'S ORGANIZ ATION 04/15/2025 [facility] EPIC Care Team (unrecognized sect ion and content) Personnel Name: Helene HAMILTON CNP Address: [address] [place] [address] Personnel Name: Helene HAMILTON CNP Address: [address] [place] [address] Personnel Name: Helene HAMILTON CNP Address: Address: [address] [place] [address] Personnel Name: Helene HAMILTON CNP Address: Address: [address] [place] [address] Personnel Name: Helene HAMILTON CNP Address: Address: [address] [place] [address] Personnel Name: NONE, XXXX Address: [place] Personnel Name: NONE, XXXX Address: [place] Personnel Name: NONE, XXXX Address: [facility] Reason for Visit (unrecogniz ed section and content) Reason Comments Well Women Visit Reason Comments Amenorrhea Reason Comments Routine Visit Reason Comments AMA Reason Comments Routine Visit FOR RECORDS PERTAINING [...] BE BASED ON THE PRIMARY CLINICAL RECORDS. [facility] [employer] [facility]. provides no warranty or guarantee of the accuracy or completeness of information in this document.
--- NOTE | 2025-04-22 20:13 | US_ITS ---
The [address] [address] Patient Name: LE STACK MRN: [id number] date: 1990 Sex: F Assigned Patient Location: Current Patient Location: Accession/Order Number: [id number] Exam Date: 04/23/2025 08:01 Report Date: 04/23/2025 08:03 At the request of: NEHA CAMPBELL DO Procedure: US OB BPP w non-stress BIOPHYSICAL PROFILE: CLINICAL INFORMATION: GESTATIONAL DIABETES MELLITUS O24.419 COMPARISON: 11/08/2024 There is a single live intrauterine gestation in cephalic presentation. The reported gestational age is 32 weeks 5 days. The heart rate measures 129 beats per minute. A nuchal cord is suggested. FINDINGS: TONE: 1 or more episodes of activity extension and flexion of extremity or opening and closing of the hand [Y] 2/2 GROSS BODY MOVEMENTS: 3 or more discrete body or limb movements [Y] 2/2 BREATHING MOVEMENTS: 1 or more episodes of breathing lasting at least 30 seconds [Y] 2/2 SARA: A single deepest vertical pocket of amniotic fluid greater than 2 cm [Y] 2/2 SARA: 13.5 cm. This is in normal range. Total score: 8/8 US/US OB BPP w non-stress IMPRESSION: NORMAL BIOPHYSICAL PROFILE POTENTIAL NUCHAL CORD. Impression dictated by: Mariam Olivares M.D. 04/23/2025 8:03 AM Dictation Location: [place] [address] Electronically authenticated by: [id number] Y Date: 04/23/2025 08:03
[2025-04-22 20:39] VITALS: BP 133/85; PULSE 78
== END 2025-04-22 21:10 | disposition home or self-care (01) ==
LOC: US 20:07 → FBC 20:38
PROVIDERS: Visit Provider Obstetrics & Gynecology
DX: O24.419 Gestational diabetes mellitus in pregnancy, unspecified control (principal); O09.523 Supervision of elderly multigravida, third trimester
CPT/HCPCS: 76818

== ENCOUNTER 2025-04-25 14:01 | Outpatient (OUT) | payer BC, SELFPAY ==
--- OUTSIDE RECORDS SUMMARY | 2025-04-25 14:03 | XMS_ITS | CCD ---
Author Organization [facility] Care Team Providers Care District Or District Office Director Name Role Phone Helene HAMILTON Darwin Primary [...] Allergy 05-06-20 Rhabdomyolysis (disorder), Other (See Comments) [facility] (20 sources) Phentermine; Translations: [phentermine] Drug Allergy 09-16-20 Dyspnea (finding), Weal (disorder), Shortness of breath [facility] (20 sources) dulaglutide; Translations: [DULAGLUTIDE] Drug Allergy 05-06-20 [facility] (20 sources) Sulfites; Translations: [SULFITES] Propensity to adverse reactions 05-06-20 [facility] (20 sources) metFORMIN Drug Allergy 09-16-20 [facility] (20 sources) Other Propensity to adverse reactions 11-25-19 [facility] (9 sources) dulaglutide Drug Allergy 12-06-19 [facility] (20 sources) Gelatin; Translations: [GELATIN] Drug Allergy 12-06-19 [facility] (20 sources) metFORMIN Drug Allergy 12-31-19 [facility] (20 sources) Pollen Propensity to adverse reactions 12-31-19 Unknown [facility] (20 sources) Prednisone Allergy to substance 12-31-19 Rash [facility] (20 sources) Propranolol Drug Allergy 12-31-19 [facility] (3 sources) No Known Medication Allergies; Translations: [No Known Medication Allergies] Propensity to adverse reactions (disorder) [facility] Repository Medications Current Medications Medication Drug Class(es) Dates Sig (Normalized) Sig (Original) [id number] 200 actuat albuterol 0.09 mg/actuat metered dose inhaler (20 sources) beta2-Adrenergic Agonist Start: 04-04-2024 albuterol HFA 90 mcg/act inhaler 04/04/2024 Active Start: 10-19-2021 take 1 dose by inhal ation every four hours ProAir HFA 90 mcg/inh inhalation aerosol 2 puff(s), Inhalation, q4hr for wheezing, 1 EA, Refill(s) 11, [facility] #[id number], 170, cm, 07/13/21 9:30:00 EDT, Height/Length Dosing, [...] q6hr for wheezing, 18 gram, Refill(s) 0, [facility] #[id number], 170, cm, 05/17/22 11:42:00 EDT, Height/Length Dosing, [...] Glucose Monitoring Suppl (D-Care Glucometer) w/Device kit (18 sources) Start: 01-27-2025 End: 01-27-2026 Blood Glucose Monitoring Suppl (D-Care Glucometer) w/Device kit Indications: Gestational diabetes mellitus (GDM), antepartum, gestational diabetes method of control unspecified ([facility]) , Elevated glucose tolerance test [...] True Met Air Gluc Meter) w/Device kit (16 sources) Start: 01-29-2025 End: 04-29-2025 Blood Glucose Monitoring Sup pl (ReliOn True Met Air Gluc Meter) w/Device kit Indications: Gestational diabetes mellitus (GDM), antepartum, gestational diabetes method of control unspecified ([facility]) , Elevated glucose tolerance test 1 [...] q24hr, # 90 tab(s), Refills(s) 1, Pharmacy: [facility] #[id number], 170, cm, 05/17/22 11:42:00 EDT, Height/Length Dosing, 95.1, kg, 05/17/22 11:42:00 EDT, Weight Dosing Start Date: 06/20/22 Status: Ordered Quantity: 90.0 Unit: tab(s) Repeat number: 2 Start: 03-08-2022 take 1 tablet by volodymyr th every twenty-four hours Wellbutrin XL 150 mg/24 hours Tab-ER 150 mg = 1 tab(s), Oral, q24hr, # 30 tab(s), Refills(s) 2, Pharmacy: [facility] #[id number], 170, cm, 03/08/22 10:25:00 EDT, Height/Length Dosing, 98.4, kg, 03/08/22 10:25:00 EDT, Weight Dosing Start Date: 03/08/22 Status: Ordered Start: 03-08-2022 take 1 tablet by volodymyr th every twenty-four hours Wellbutrin XL 150 mg/24 hours Tab-ER 150 mg = 1 tab(s), Oral, q24hr, # 30 tab(s), Refills(s) 2, Pharmacy: [facility] #[id number], 170, cm, 03/08/22 10:25:00 EDT, Height/Length Dosing, 98.4, kg, 03/08/22 10:25:00 EDT, Weight Dosing Start Date: 03/08/22 Status: Ordered cetirizine hydrochloride 10 mg oral tablet (20 sources) Histamine-1 Receptor Antagonist cetirizine (ZyrTEC) 10 MG tablet Take by mouth Active insulin isophane, human 100 unt/ml injectable suspension (9 sources) Start: End: inject 5 [IU] by subcutaneous injection in the morning insulin NPH, Isophane, (HumuLIN N,NovoLIN N) 100 UNIT/ML injection Indications: Gestational Diabetes Inject 5 Units under the skin in the morning and 5 Units in the evening. Inject before meals. 3 mL 04/08/2025 05/08/2025 Active insulin, regular, human 100 unt/ml injectable solution (9 sources) Insulin Start: End: inject 5 [IU] by subcutaneous injection once in the morning, then inject 5 [IU] by subcutaneous injection once in the evening insulin regular (HumuLIN R,NovoLIN R) 100 UNIT/ML injection Indications: Gestational diabetes mellitus (GDM), antepartum, gestational diabetes method of control unspecified ([facility]) 5 units sub q in the am and 5 units sub q in the evening 3 mL 3 04/08/2025 04/08/2026 Active isopropyl alcohol 0.7 ml/ml medicated pad (20 sources) Start: Alcohol Swabs (Alcohol Prep Pad) 70 % pads Indications: Gestational diabetes mellitus (GDM), antepartum, gestational diabetes method of control unspecified ([facility]) , Elevated glucose tolerance test Apply 1 [...] 1 magnesium oxide 400 mg oral tablet (20 sources) Start: 025 take 1 tablet by mouth once daily MAGnesium-Oxide 400 (240 Mg) MG tablet Indications: headache, antepartum ([facility]) Take 1 tablet by mouth once daily [...] qPM, # 90 tab(s), Refills(s) 3, Pharmacy: [facility] #[id number], 170, cm, 05/17/22 11:42:00 EDT, Height/Length Dosing, 95.1, kg, 05/17/22 11:42:00 EDT, Weight Dosing Start Date: 10/03/22 Status: Ordered Quantity: 90.0 Unit: tab(s) Repeat number: 4 naltrexone hydrochloride 50 mg oral tablet (8 sources) Opioid Antagonist Start: 04-12-2022 take 1 tablet by mouth once daily naltrexone 50 mg oral tablet See Instructions, 1 tablet daily, # 90 tab(s), Refills(s) 0, Pharmacy: [facility] #[id number], 170, cm, 04/12/22 11:02:00 EDT, Height/Length Dosing, [...] pain, # 10 tab(s), Refills(s) 0, Pharmacy: [facility] #[id number], 170, cm, 05/11/22 22:56:00 EDT, Height/Length Dosing, [...] E66.9, # 30 tab(s), Refills(s) 0, Pharmacy: [facility] #[id number], 170, cm, 03/08/22 10:25:00 EDT, Height/Length Dosing, [...] mg, SubCutaneous, qWeek, 1 EA, Refill(s) 5, [facility] #[id number], 170, cm, 05/11/22 22:56:00 EDT, Height/Length Dosing, 89, kg, 05/11/22 22:56:00 EDT, Weight Dosing Start Date: 05/12/22 Status: Ordered Quantity: 1.0 Unit: EA Repeat number: 6 spironolactone 25 mg oral tablet (9 sources) Aldosterone Antagonist Start: 06-22-2021 take 1 tablet by mouth twice daily spironolactone 25 mg Tab 25 mg = 1 tab(s), Oral, BID, # 180 tab(s), Refills(s) 3, Pharmacy: [facility], 170, cm, 04/06/21 9:19:00 EDT, Height/Length Dosing, 90, kg, 04/06/21 9:19:00 EDT, Weight Dosing Start Date: 06/22/21 Status: Ordered Quantity: 180.0 Unit: tab(s) Repeat number: 4 tretinoin 0.0004 mg/mg topical gel (6 sources) Retinoid Start: 02-17-2023 apply 1 [IU] topically once daily at bedtime tretinoin Top 0.04% Gel 1 sonya, Topical, Once a day (at bedtime), 45 gram, Refill(s) 0, [facility] #[id number], 170, cm, 05/17/22 11:42:00 EDT, Height/Length Dosing, 95.1, kg, 05/17/22 11:42:00 EDT, Weight Dosing Start Date: 02/17/23 Status: Ordered Quantity: 45.0 Unit: g Repeat number: 1 Start: 12-02-2022 apply 1 [IU] topical ly once daily at bedtime tretinoin Top 0.1% Crm 1 sonya, Topical, Once a day (at bedtime), 20 gram, Refill(s) 6, [facility] #[id number], 170, cm, 05/17/22 11:42:00 EDT, Height/Length Dosing, [...] hours, # 4 tab(s), Refills(s) 1, Pharmacy: [facility], 170, cm, 11/03/20 13:01:00 EST, Height/Length [...] hours, # 4 tab(s), Refills(s) 1, Pharmacy: [facility], 170, cm, 11/03/20 13:01:00 EST, Height/Length Dosing, 94.7, kg, 11/03/20 13:01:00 EST, Brandon... Start Date: 11/03/20 Status: Ordered Ventolin HFA 90 mcg/inh Aerosol (4 sources) Start: 10-18-2021 take 1 puff(s) by inhalation once for wheezing Ventolin HFA 90 mcg/inh Aerosol 1 puff(s), Inhalation, Once for wheezing, 6.7 gm, Refill(s) 2, [facility] #[id number], 170, cm, 07/13/21 9:30:00 EDT, Height/Length Dosing, 88.5, kg, 07/13/21 9:30:00 EDT, Weight Dosing Start Date: 10/18/21 Status: Ordered Ventolin HFA 90 mcg/inh Aerosol-Adpt (3 sources) Start: 10-28-2022 take 2 puff(s) by inhalation every six hours for wheezing Ventolin HFA 90 mcg/inh Aerosol-Adpt 2 puff(s), Inhalation, q6hr for wheezing, 18 gram, Refill(s) 5, [facility] #[id number], 170, cm, 05/17/22 11:42:00 EDT, Height/Length Dosing, [...] Nausea/Vomiting, # 12 tab(s), Refills(s) 0, Pharmacy: [facility] #[id number], 170, cm, 05/17/22 11:42:00 EDT, Height/Length Dosing, [...] Nausea/Vomiting, # 30 tab(s), Refills(s) 1, Pharmacy: [facility] #[id number], 170, cm, 05/11/22 22:56:00 EDT, Height/Length Dosing, 89, kg, 05/11/22 22:56:00 EDT, Weight Dosing Start Date: 05/12/22 Status: Ordered Quantity: 30.0 Unit: tab(s) Repeat number: 2 Start: 05-12-2022 take 1 tablet by volodymyr th every eight hours as needed for nausea Zofran ODT 4 mg Tab-Dis 4 mg = 1 tab(s), Oral, q8hr, PRN Nausea/Vomiting, # 30 tab(s), Refills(s) 1, Pharmacy: [facility] #[id number], 170, cm, 05/11/22 22:56:00 EDT, Height/Length Dosing, 89, kg, 05/11/22 22:56:00 EDT, Weight Dosing Start Date: 05/12/22 Status: Ordered Start: 12-22-2021 take 1 tablet by volodymyr th every eight hours as needed for nausea Zofran ODT 4 mg Tab-Dis 4 mg = 1 tab(s), Oral, q8hr, PRN Nausea/Vomiting, # 12 tab(s), Refills(s) 0, [id number], 170, cm, 12/22/21 7:22:00 EST, Height/Length Dosing, [...] # 2 tab(s), Refills(s) 0, Prophylaxis, Pharmacy: [facility] #[id number], 170, cm, 05/17/22 11:42:00 EDT, Height/Length Dosing, [...] q4hr for wheezing, 1 EA, Refill(s) 11, [facility] #[id number], 170, cm, 07/13/21 9:30:00 EDT, Height/Length Dosing, [...] (9 sources) Hyperlipidemia 11-03-2020 Chronic Essential hypertension (5 sources) Hypertensive disorder; Translations: [Essential (primary) hypertension] [...] Postoperative visit 05-17-2022 Episodic Other complications of (17 sources) Multigravida of advanced maternal age; Translations: [...] Test Name Value Interpretation Reference Range Facility OB BPP W NON-STRESS on 04-23-2025 [place] [address] Ultrasound Report Signed Patient: JULISSA WEEMS MR#: [id number] : 1990 Acct:[id number] Age/Sex: 34 / F ADM Date: 04/22/25 Loc: US Attending Dr: Mik Borrego D.O. Ordering Physician: Mik Borrego D.O. Date of Service: 04/22/25 Procedure(s): US OB BPP w non-stress Accession Number(s): [id number] cc: Mik Borrego D.O.; Physician,Non-Staff M.DNikos The [address] [address] Patient Name: JULISSA WEEMS MRN: [facility]:[id number] date: 1990 Sex: F Assigned Patient Location: Current Patient Location: Accession/Order Number: [id number] Exam Date: 04/23/2025 08:01 Report Date: 04/23/2025 08:03 At the request of: MIK BORREGO DO Procedure: US OB BPP w non-stress BIOPHYSICAL PROFILE: CLINICAL INFORMATION: GESTATIONAL DIABETES MELLITUS O24.419 COMPARISON: 11/08/2024 There is a single live intrauterine gestation in cephalic presentation. The reported gestational age is 32 weeks 5 days. The heart rate measures 129 beats per minute. A nuchal cord is suggested. FINDINGS: TONE: 1 or more episodes of activity extension and flexion of extremity or opening and closing of the hand [Y] 2/2 GROSS BODY MOVEMENTS: 3 or more discrete body or limb movements [Y] 2/2 BREATHING MOVEMENTS: 1 or more episodes of breathing lasting at least 30 seconds [Y] 2/2 SARA: A single deepest vertical pocket of amniotic fluid greater than 2 cm [Y] 2/2 SARA: 13.5 cm. This is in normal range. Total score: 8/8 US/US OB BPP w non-stress IMPRESSION: NORMAL BIOPHYSICAL PROFILE POTENTIAL NUCHAL CORD. Impression dictated by: Mariam Olivares M.D. 04/23/2025 8:03 AM Dictation Location: [place] [address] Electronically authenticated by: [id number] Y Date: 04/23/2025 08:03 Dictated By: Mariam Olivares M.D. Signed By: 04/23/25 0946 DD/ 0803 TD/TT: Finishing Range Supervisor: [facility] Radiology, Radiologist, - 04/23/2025 [place] [address] Ultrasound Report Signed Patient: JULISSA WEEMS MR#: [id number] : 1990 Acct:[id number] Age/Sex: 34 / F ADM Date: 04/22/25 Loc: US Attending Dr: Mik Borrego D.O. Ordering Physician: Mik Borrego D.O. Date of Service: 04/22/25 Procedure(s): US OB BPP w non-stress Accession Number(s): [id number] cc: Mik Borrego D.O.; Physician,Non-Staff [facility] [address] [address] Patient Name: JULISSA WEEMS MRN: [facility]:[id number] date: 1990 Sex: F Assigned Patient Location: US Current Patient Location: Accession/Order Number: [id number] Exam Date: 04/23/2025 08:01 Report Date: 04/23/2025 08:03 At the request of: MIK BORREGO DO Procedure: US OB BPP w non-stress BIOPHYSICAL PROFILE: CLINICAL INFORMATION: GESTATIONAL DIABETES MELLITUS O24.419 COMPARISON: 11/08/2024 There is a single live intrauterine gestation in cephalic presentation. The reported gestational age is 32 weeks 5 days. The heart rate measures 129 beats per minute. A nuchal cord is suggested. FINDINGS: TONE: 1 or more episodes of activity extension and flexion of extremity or opening and closing of the hand [Y] 2/2 GROSS BODY MOVEMENTS: 3 or more discrete body or limb movements [Y] 2/2 BREATHING MOVEMENTS: 1 or more episodes of breathing lasting at least 30 seconds [Y] 2/2 SARA: A single deepest vertical pocket of amniotic fluid greater than 2 cm [Y] 2/2 SARA: 13.5 cm. This is in normal range. Total score: 8/8 US/US OB BPP w non-stress IMPRESSION: NORMAL BIOPHYSICAL PROFILE POTENTIAL NUCHAL CORD. Impression dictated by: Mariam Olivares M.D. 04/23/2025 8:03 AM Dictation Location: [place] [address] Electronically authenticated by: [id number] Y Date: 04/23/2025 08:03 Dictated By: Maraim Olivares M.D. Signed By: 04/23/25 0946 DD/ 2 TD/TT: Finishing Range Supervisor: [facility] Radiology Study observation (narrative) [facility] OB BPP W NON-STRESS Ordered By: Radiologist Radiology on 04-23-2025 [facility] Work Phone: Urinalysis macro (dipstick) panel (U)on 04-21-2025 Bilirubin, UA Negative Negative - 4(70) +++ mg/dL [facility] Blood, UA Negative Negative - 50 Albin/mcL [facility] Clarity, UA Clear [facility] Color, UA Yellow [facility] Glucose, UA Negative Negative - 1999(110) ++++ mg/dL [facility] Interpretation and review of laboratory results Normal [facility] Ketones, UA Positive Negative - 160(16) ++++ mg/dL [facility] Leukocytes, UA Negative Negative - 500+++ Jack/mcL [facility] Nitrite, UA Negative Negative - Positive [facility] pH, UA 7 5 - 9 [facility] Protein, UA Negative Negative - 1999(20) ++++ mg/dL [facility] Spec Grav, UA 1.015 1 - 1.03 [facility] Urobilinogen, UA 0.2 0.2 - 12 mg/dL [facility] Urinalysis macro (dipstick) panel (U)on 04-14-2025 Bilirubin, UA Negative Negative - 4(70) +++ mg/dL [facility] Blood, UA Negative Negative - 50 Albin/mcL [facility] Clarity, UA Clear [facility] Color, UA Yellow [facility] Glucose, UA Negative Negative - 1999(110) ++++ mg/dL [facility] Interpretation and review of laboratory results Abnormal [facility] Ketones, UA Negative Negative - 160(16) ++++ mg/dL [facility] Leukocytes, UA Negative Negative - 500+++ Jack/mcL [facility] Nitrite, UA Negative Negative - Positive [facility] pH, UA 6.5 5 - 9 [facility] Protein, UA Negative Negative - 1999(20) ++++ mg/dL [facility] Spec Grav, UA 1.005 1 - 1.03 [facility] Urobilinogen, UA 1.0 0.2 - 12 mg/dL [facility] Urinalysis macro (dipstick) panel (U)on 04-08-2025 Bilirubin, UA Negative Negative - 4(70) +++ mg/dL [facility] Blood, UA Negative Negative - 50 Albin/mcL [facility] Clarity, UA Clear [facility] Color, UA Yellow [facility] Glucose, UA Negative Negative - 1999(110) ++++ mg/dL [facility] Interpretation and review of laboratory results Abnormal [facility] Ketones, UA Positive Negative - 160(16) ++++ mg/dL [facility] Comment on above: 40 Leukocytes, UA Trace Negative - 500+++ Jack/mcL [facility] Nitrite, UA Negative Negative - Positive [facility] pH, UA 7 5 - 9 [facility] Protein, UA Positive Negative - 1999(20) ++++ mg/dL [facility] Comment on above: 30 Spec Grav, UA 1.015 1 - 1.03 [facility] Urobilinogen, UA 0.2 0.2 - 12 mg/dL [facility] Urinalysis macro (dipstick) panel (U)on 03-24-2025 Bilirubin, UA Negative Negative - 4(70) +++ mg/dL [facility] Blood, UA Negative Negative - 50 Albin/mcL [facility] Clarity, UA Clear [facility] Color, UA Yellow [facility] Glucose, UA Negative Negative - 1999(110) ++++ mg/dL [facility] Interpretation and review of laboratory results Normal [facility] Ketones, UA Negative Negative - 160(16) ++++ mg/dL [facility] Leukocytes, UA Negative Negative - 500+++ Jack/mcL [facility] Nitrite, UA Negative Negative - Positive [facility] pH, UA 7 5 - 9 [facility] Protein, UA Negative Negative - 1999(20) ++++ mg/dL [facility] Spec Grav, UA 1.01 1 - 1.03 [facility] Urobilinogen, UA 0.2 0.2 - 12 mg/dL [facility] Urinalysis macro (dipstick) panel (U)on 02-24-2025 Bilirubin, UA Negative Negative - 4(70) +++ mg/dL [facility] Blood, UA Negative Negative - 50 Albin/mcL [facility] Clarity, UA Clear [facility] Color, UA Yellow [facility] Glucose, UA Negative Negative - 1999(110) ++++ mg/dL [facility] Interpretation and review of laboratory results Normal [facility] Ketones, UA Negative Negative - 160(16) ++++ mg/dL [facility] Leukocytes, UA Negative Negative - 500+++ Jack/mcL [facility] Nitrite, UA Negative Negative - Positive [facility] pH, UA 6.5 5 - 9 [facility] Protein, UA Negative Negative - 2000(20) ++++ mg/dL [facility] Spec Grav, UA 1.025 1 - 1.03 [facility] Urobilinogen, UA 1.0 0.2 - 12 mg/dL [facility] CHEMISTRYOrdered By: Hien Khan on 02-04-2025 Hrs Francisco 24 1 Invalid Interpretation Code [facility] Chem S U24 ProteinOrdered By: [employer] on 02-04-2025 U24 Total Protein 224 mg/24hr High 28-141 Remiso l Chem Comment on above: Performed By: #### 1 [id number] #### [facility] [address] [place] [address] Ur Total Protein 8.8 mg/dL Invalid Interpretation Code Remisol Chem Comment on above: Performed By: #### 1 [id number] #### [facility] [address] [place] [address] U24 Total Volon 02-04-2025 Hrs Francisco 24 Invalid Interpretation Code [facility] Comment on above: Order Comment: Order added by Discern Expert Performed By: #### 2 [id number] #### [facility] [address] [place] [address] U24 Total VolOrdered By: Col loyda Khan on 02-04-2025 Total Volume 2550 mL Invalid Interpretation Code [facility] Chem S Comment on above: Order Comment: Order added by Discern Expert Performed By: #### 2 [id number] #### [facility] [address] [place] [address] BNPon 01-27-2025 Int Ctr BNP Pass Normal [facility] Comment on above: Performed By: #### 1 [id number] #### [facility] [address] [place] [address] Natriuretic peptide B (Bld) [Mass/Vol] pg/mL Low 5-80 [facility] Comment on above: Performed By: #### 1 [id number] #### [facility] [address] [place] [address] CBC w/ Auto Diffon 5 Basophils/100 WBC (Bld) 0.3 % Normal 0.0-2.0 [facility] Comment on above: Performed By: #### 2 [id number] #### [facility] [address] [place] [address] Basophils/Leukocytes Auto (Bld) [Pure # fraction] 0.0 E9/L Normal 0.0-0.2 [facility] Comment on above: Performed By: #### 2 [id number] #### [facility] [address] [place] [address] Eosinophils (Bld) [#/Vol] 0.1 E9/L Normal 0.0-0.5 [facility] Comment on above: Performed By: #### 2 [id number] #### [facility] [address] [place] [address] Eosinophils/100 WBC (Bld) 0.9 % Normal 0.0-8.0 [facility] Comment on above: Performed By: #### 2 [id number] #### [facility] [address] [place] [address] Erythrocyte distribution width (RBC) [Ratio] 13.5 % Normal 10.9-14.2 [facility] Comment on above: Performed By: #### 2 [id number] #### [facility] [address] [place] [address] Hematocrit (Bld) [Volume fraction] 39.2 % Normal 34.0-46.0 [facility] Comment on above: Performed By: #### 2 [id number] #### [facility] [address] [place] [address] Hemoglobin (Bld) [Mass/Vol] 13.2 g/dL Normal 12.0-16.0 [facility] Comment on above: Performed By: #### 2 [id number] #### [facility] [address] [place] [address] Lymphocytes (Bld) [#/Vol] 2.1 E9/L Normal 1.0-4.0 [facility] Comment on above: Performed By: #### 2 [id number] #### [facility] [address] [place] [address] Lymphocytes/100 WBC (Bld) 14.3 % Normal 14.0-50.0 [facility] Comment on above: Performed By: #### 2 [id number] #### [facility] [address] [place] [address] MCH (RBC) [Entitic mass] 29.0 pg Normal 27.0-34.0 [facility] Comment on above: Performed By: #### 2 [id number] #### [facility] [address] [place] [address] MCHC (RBC) [Mass/Vol] 33.7 g/dL Normal 31.4-36.0 [facility] Comment on above: Performed By: #### 2 [id number] #### [facility] [address] [place] [address] MCV (RBC) [Entitic vol] 86.2 fL Normal 80.0-100.0 [facility] Comment on above: Performed By: #### 2 [id number] #### [facility] [address] [place] [address] Monocytes (Bld) [#/Vol] 0.6 E9/L Normal 0.2-1.0 [facility] Comment on above: Performed By: #### 2 [id number] #### [facility] [address] [place] [address] Neutrophils (Bld) [#/Vol] 11.8 E9/L High 2.0-7.5 [facility] Comment on above: Performed By: #### 2 [id number] #### [facility] [address] [place] [address] Neutrophils/100 WBC (Bld) 80.6 % High 36.0-75.0 [facility] Comment on above: Performed By: #### 2 [id number] #### [facility] [address] [place] [address] Platelet 302.0 E9/L Normal 150.0-500.0 [facility] Comment on above: Performed By: #### 2 [id number] #### [facility] [address] [place] [address] Platelet mean volume (Bld) [Entitic vol] 9.4 fL Normal 6.4-10.8 [facility] Comment on above: Performed By: #### 2 [id number] #### [facility] [address] [place] [address] RBC (Bld) [#/Vol] 4.6 E12/L Normal 4.3-5.9 [facility] Comment on above: Performed By: #### 2 [id number] #### [facility] [address] [place] [address] WBC corrected for nucl RBC Auto (Bld) [#/Vol] 14.6 E9/L High 4.0-11.0 [facility] Comment on above: Performed By: #### 2 [id number] #### [facility] [address] [place] [address] CHEMISTRYOrdered By: SYSTEM SYSTEM on 01-27-2025 Albumin [...] [Mass/Vol] pg/mL Low 5 - 80 pg/[facility] Albumin [Mass/Vol] 3.9 g/dL Normal 3.3-5.0 [facility] Comment on above: Performed By: #### 2 [id number] #### [facility] [address] [place] [address] Albumin/Globulin (S) [Mass conc ratio] 1.2 Normal 1.1-2.2 [facility] Comment on above: Performed By: #### 2 [id number] #### [facility] [address] [place] [address] ALP [Catalytic activity/Vol] 46 Int._Unit/L Normal 21-98 [facility] Comment on above: Performed By: #### 2 [id number] #### [facility] [address] [place] [address] ALT No additional P-5'-P [Catalytic activity/Vol] 18 Int._Unit/L Normal 6-46 [facility] Comment on above: Performed By: #### 2 [id number] #### [facility] [address] [place] [address] Anion gap [Moles/Vol] 12 mmol/L Normal 6-16 [facility] Comment on above: Performed By: #### 2 [id number] #### [facility] [address] [place] [address] AST [Catalytic activity/Vol] 19 Int._Unit/L Normal 5-43 [facility] Comment on above: Performed By: #### 2 [id number] #### [facility] [address] [place] [address] Bilirubin [Mass/Vol] 0.4 mg/dL Normal 0.0-1.1 [facility] Comment on above: Performed By: #### 2 [id number] #### [facility] [address] [place] [address] Calcium [Mass/Vol] 9.5 mg/dL Normal 8.9-11.1 [facility] Comment on above: Performed By: #### 2 [id number] #### [facility] [address] [place] [address] Chloride [Moles/Vol] 104 mmol/L Normal 101-111 [facility] Comment on above: Performed By: #### 2 [id number] #### [facility] [address] [place] [address] CO2 [Moles/Vol] 22 mmol/L Normal 21-31 [facility] Comment on above: Performed By: #### 2 [id number] #### [facility] [address] [place] [address] Creatinine [Mass/Vol] 0.5 mg/dL Normal 0.5-1.3 [facility] Comment on above: Performed By: #### 2 [id number] #### [facility] [address] [place] [address] Globulin (S) [Mass/Vol] 3.2 g/dL Normal 1.4-4.0 [facility] Comment on above: Performed By: #### 2 [id number] #### [facility] [address] [place] [address] Glucose [Mass/Vol] 131 mg/dL Normal 55-199 [facility] Comment on above: Performed By: #### 2 [id number] #### [facility] [address] [place] [address] Potassium [Moles/Vol] 3.4 mmol/L Low 3.5-5.3 [facility] Comment on above: Performed By: #### 2 [id number] #### [facility] [address] [place] [address] Protein [Mass/Vol] 7.1 g/dL Normal 6.0-7.8 [facility] Comment on above: Performed By: #### 2 [id number] #### [facility] [address] [place] [address] Sodium [Moles/Vol] 135 mmol/L Normal 135-145 [facility] Comment on above: Performed By: #### 2 [id number] #### [facility] [address] [place] [address] Urea nitrogen [Mass/Vol] 9 mg/dL Normal 5-21 [facility] Comment on above: Performed By: #### 2 [id number] #### [facility] [address] [place] [address] Urea nitrogen/Creatinine [Mass ratio] 18 No Units Normal 10-20 [facility] Comment on above: Performed By: #### 2 [id number] #### [facility] [address] [place] [address] HEMATOLOGYOrdered By: SYSTEM SYSTEM on 01-27-2025 Basophils/100 [...] LDHon 01-27-2025 LDH 158 Int._Unit/L Normal 93-218 [facility] Comment on above: Performed By: #### 2 [id number] #### [facility] [address] [place] [address] Uric Acidon 01-27-2025 Urate [Mass/Vol] 4.6 mg/dL Normal 2.2-7.4 [facility] Comment on above: Performed By: #### 2 [id number] #### [facility] [address] [place] [address] Urinalysis macro (dipstick) panel (U)on 01-27-2025 Bilirubin, UA Negative Negative - 4(70) +++ mg/dL [facility] Blood, UA Negative Negative - 50 Alibn/mcL [facility] Clarity, UA Clear [facility] Color, UA Yellow [facility] Glucose, UA Negative Negative - 2000(110) ++++ mg/dL [facility] Interpretation and review of laboratory results Normal [facility] Ketones, UA Negative Negative - 160(16) ++++ mg/dL [facility] Leukocytes, UA Negative Negative - 500+++ Jack/mcL [facility] Nitrite, UA Negative Negative - Positive [facility] pH, UA 6 5 - 9 [facility] Protein, UA Negative Negative - 2000(20) ++++ mg/dL [facility] Spec Grav, UA 1.005 1 - 1.03 [facility] Urobilinogen, UA 0.2 0.2 - 12 mg/dL [facility] eGFRon 01-27-2025 eGFR 124 mL/min/1.73 m2 Normal >=59 [facility] Comment on above: Performed By: #### 1 [id number] #### [facility] [address] [place] [address] GLUCOSE TOLERANCE 3 HOURon 0 01-20-2025 GLUCOSE TOLERANCE 3 HOUR High mg/dL [facility] Comment on above: GLU FAST 92 (<95) Co l: 01/20/25 0948 GLU 1HR 205H (<180) Col: 01/20/25 1050 GLU 2HR 220H (<155) Col: 01/20/25 1150 GLU 3HR 107 (<140) Col: 01/20/25 1250 Interpretation and review of laboratory results Abnormal [facility] Glucose 1h post 50g loadon 0 12-30-2024 Glucose, 1Hr PP 163 [facility] RECURRENT VAGINITIS (HTRX)on 12-25-2024 ATOPOBIUM VAGINAE 0 [facility] ATOPOBIUM VAGINAE Not detected [facility] BVAB 2,3 (BACTERIAL VAGINOSIS ASSOCIATED BACTERIA 2, 3); MOBILUNCUS SPP 0 [facility] BVAB 2,3 (BACTERIAL VAGINOSIS ASSOCIATED BACTERIA 2, 3); MOBILUNCUS SPP Not detected [facility] KACEY ALBICANS, PARAPSILOSIS, TROPICALIS 0 [facility] KACEY ALBICANS, PARAPSILOSIS, TROPICALIS Not detected [facility] KACEY GLABRATA 0 [facility] KACEY GLABRATA Not detected [facility] KACEY KRUSEI 0 [facility] KACEY KRUSEI Not detected [facility] CHLAMYDIA TRACHOMATIS 0 [facility] CHLAMYDIA TRACHOMATIS Not detected N [facility] GARDNERELLA VAGINALIS 0 [facility] GARDNERELLA VAGINALIS Not detected [facility] MEGASPHAERA (TYPES 1, 2) 0 [facility] MEGASPHAERA (TYPES 1, 2) Not detected [facility] MYCOPLASMA GENITALIUM 0 [facility] MYCOPLASMA GENITALIUM Not detected N [facility] NEISSERIA GONORRHOEAE 0 [facility] NEISSERIA GONORRHOEAE Not detected N [facility] TRICHOMONAS VAGINALIS 0 [facility] TRICHOMONAS VAGINALIS Not detected N [facility] Urinalysis macro (dipstick) panel (U)on 12-23-2024 Bilirubin, UA Negative Negative - 4(70) +++ mg/dL [facility] Blood, UA Negative Negative - 50 Albin/mcL [facility] Clarity, UA Clear [facility] Color, UA Yellow [facility] Glucose, UA Negative Negative - 2000(110) ++++ mg/dL [facility] Interpretation and review of laboratory results Abnormal [facility] Ketones, UA Positive Negative - 160(16) ++++ mg/dL [facility] Comment on above: 40mg/dL Leukocytes, UA Negative Negative - 500+++ Jack/mcL [facility] Nitrite, UA Negative Negative - Positive [facility] pH, UA 5.5 5 - 9 [facility] Protein, UA Negative Negative - 1999(20) ++++ mg/dL [facility] Spec Grav, UA 1.025 1 - 1.03 [facility] Urobilinogen, UA 0.2 0.2 - 12 mg/dL [facility] Urinalysis macro (dipstick) panel (U)on 11-25-2024 Bilirubin, UA Positive Negative - 4(70) +++ mg/dL [facility] Blood, UA Negative Negative - 50 Albin/mcL [facility] Clarity, UA Clear [facility] Color, UA Yellow [facility] Glucose, UA Negative Negative - 1999(110) ++++ mg/dL [facility] Interpretation and review of laboratory results Abnormal [facility] Ketones, UA Positive Negative - 160(16) ++++ mg/dL [facility] Leukocytes, UA Negative Negative - 500+++ Jack/mcL [facility] Nitrite, UA Negative Negative - Positive [facility] pH, UA 6 5 - 9 [facility] Protein, UA Positive Negative - 1999(20) ++++ mg/dL [facility] Spec Grav, UA 1.025 1 - 1.03 [facility] Urobilinogen, UA 0.2 0.2 - 12 mg/dL [facility] HIV 1&2 AB/AG Screen (P24 AG )on 11-11-2024 HIV 1&2 AB/AG Non-Reactive [facility] Hepatitis C(HCV) Ab w/ Refle x to PCRon 11-11-2024 HCV Ab Ql (S) Non-Reactive [facility] No Panel Informationon 11-11 [facility] Rubella IGG immune statuson 11-11-2024 Rubella immune IgG 1.78 [facility] ALL CBC WITH AUTO DIFFon BASOPHILS ABSOLUTE AUTO 0.1 [facility] Basophils/100 WBC (Bld) 0.5 % 0.2 - 2.0 % [facility] Eosinophils/100 WBC (Bld) 1 % 0.9 - 7.0 % [facility] Erythrocyte distribution width (RBC) [Ratio] 12.4 % 11.0 - 15.0 % [facility] IMMATURE GRANULOCYTES ABS AUTO 0.06 High [facility] Immature granulocytes/100 WBC (Bld) 0.5 % 0.0 - 0.5 % [facility] Interpretation and review of laboratory results Abnormal [facility] LYMPHOCYTES ABSOLUTE AUTO 3 [facility] Lymphocytes/100 WBC (Bld) 24.2 % 20.5 - 60.0 % [facility] MCH (RBC) [Entitic mass] 29.2 pg 26.7 - 34.0 pg [facility] MCHC (RBC) [Mass/Vol] 33.5 g/dL 29.9 - 35.2 g/dL [facility] MCV (RBC) [Entitic vol] 87.1 fL 81.0 - 99.0 fL [facility] MONOCYTES ABSOLUTE AUTO 0.8 [facility] Monocytes/100 WBC (Bld) 6.4 % 1.7 - 12.0 % [facility] NEUTROPHILS ABSOLUTE AUTO 8.5 High [facility] Neutrophils/100 WBC (Bld) 67.4 % 43.0 - 75.0 % [facility] Platelet mean volume (Bld) [Entitic vol] 10.1 fL 9.5 - 13.5 fL [facility] TBH EO # 0.1 [facility] TBH PLT 357 [facility] RBC 4.8 [facility] WBC 12.6 High [facility] CBC without diffOrdered By: Lindsey Ramos on 11-08-2024 Platelets (Bld) [#/Vol] 357 10*3/uL [facility] Rbc Mcv (Fl) By Automated Count 87.1 [facility] Drug Screen, Urineon 025 Amphetamine/Methamphe tamine Negative [facility] Barbiturates Negative [facility] Benzodiazepines Negative [facility] Cocaine Metabolite Negative [facility] Opiates Negative [facility] Oxycodone Negative [facility] Phencyclidine Negative [facility] Thc Marijuana, Urine Negative [facility] Hemoglobin A1con 11-08-2024 HbA1c (Bld) [Mass fraction] 5.8 % 4.0 - 6.0 % [facility] Hepatitis B surface antigeno n 11-08-2024 Hepatitis B Surface Antigen Negative [facility] Laboratory - Hematology and Cell countson 11-08-2024 Hematocrit (Bld) [Volume fraction] 41.8 % [facility] Hemoglobin (Bld) [Mass/Vol] 14 g/dL [facility] No Panel Informationon 11-08 [facility] Type and screenon 11-08-2024 Abo/Rh(D) Positive [facility] Rh_Intep Negative [facility] HCG ( test) Ql (U)o n 10-24-2024 Interpretation and review of laboratory results Abnormal [facility] Preg Test, Ur Positive Negative [facility] US OB TRANSVAGINALon 025 US OB TRANSVAGINAL [...] x 2.5 cm (6 weeks, 5 days). [place] rump length is 0.9 cm (7 weeks, [...] Negative Negative - 4(70) +++ mg/dL [facility] Blood, UA Negative Negative - 50 Albin/mcL [facility] Clarity, UA Clear [facility] Color, UA Yellow [facility] Glucose, UA Negative Negative - 1999(110) ++++ mg/dL [facility] Interpretation and review of laboratory results Normal [facility] Ketones, UA Negative Negative - 160(16) ++++ mg/dL [facility] Leukocytes, UA Negative Negative - 500+++ Jack/mcL [facility] Nitrite, UA Negative Negative - Positive [facility] pH, UA 6 5 - 9 [facility] Protein, UA Negative Negative - 1999(20) ++++ mg/dL [facility] Spec Grav, UA 1.015 1 - 1.03 [facility] Urobilinogen, UA 0.2 0.2 - 12 mg/dL [facility] IGP,APTIMA HPV,AGE GDLNon AGE GDLN ACOG TESTING Note . [facility] Comment on above: TESTS RESULT FLAG UN ITS REF RANGE LAB Clinician Provided Cytology Information Source.............Cervix No. of containers..01 ThinPrep Vial Age Algo ACOG Yumiko... FLAG LEGEND: L-Low Normal,H-High Normal,LL-Alert Low,HH-Alert High <-Panic Low,>-Panic High,A-Abnormal,AA-Critical Abnormal Performed at: 01 =[address] [id number] Nina Julien MD, HPV APTIMA Negative Negative [facility] Comment on above: This nucleic acid am plification test detects fourteen high- risk HPV types (16,18,31,33,35,39,45,51,52,56,58,59,66,68) without differentiation. Performed at: =[address] [id number] Bid Writer: Nina Julien MD, Phone: [phone] Performed at: [address] [id number] Bid Writer: Nina Julien MD, Phone: [phone] IGP, APTIMA HPV, RFX 16/18,45 Note . [facility] Comment on above: TESTS RESULT FLAG UN ITS REF RANGE LAB DIAGNOSIS: 02 NEGATIVE FOR INTRAEPITHELIAL LESION OR MALIGNANCY. THIS SPECIMEN WAS RESCREENED PART OF OUR TERRA COTTA SETTER PROGRAM. Specimen adequacy: 02 Satisfactory for evaluation. Endocervical and/or squamous metaplastic cells (endocervical component) are present. Performed by: 02 Jasmine Collins Statue Carver (ASCP) QC reviewed by: 02 Binta Coyne Statue [employer]ver (ASCP) . 02 Note: Note 02 The [...] Low,>-Panic High,A-Abnormal,AA-Critical Abnormal Performed at: 02 [address] [facility] [address] [address] Nina Julien MD, SWAB-SPATULA CERVIX [facility] BLOOD BANKOrdered By: Jacob guzman on 05-12-2022 ABO/Rh Interp Positive Invalid Interpretation Code [facility] BB Subsection ABSC Gel Interp Negative (05/12/22 5:12 AM) Normal [facility] BB Subsection SEROLOGYOrdered By: Riya kenney on 05-12-2022 HCG.beta subunit (U) [Moles/Vol] Negative Normal [facility] Man Sero URINALYSISOrdered By: Riya Quarles on 05-12-2022 Bilirubin Ql (U) Negative (05/12/22 10:38 AM) Normal Negative [facility] UA Auto SS Clarity (U) Clear (05/12/22 [...] AM) Normal Negative [facility] UA Auto SS Statham.plasma/Lithiu m.RBC (Bld) [Mass ratio] 0-3 /HPF Normal [...] [facility] UA Auto SS Urobilinogen Qn (U) 0.7540480 {Lazaro'U}/dL Normal 0.0 - 1.0 EU/dL [facility] [...] AM) Normal Negative [facility] UA Auto SS Statham.plasma/Lithiu m.RBC (Bld) [Mass ratio] 0-3 /HPF Normal 0-3/HPF [facility] UA Auto SS Nitrite Ql (U) Negative (05/12/22 9:58 AM) Normal Negative [facility] UA Auto SS pH (U) 6.0 *NA* (05/12/22 9:58 AM) Invalid Interpretation Code 5.0 - 9.0 [facility] UA Auto SS Protein (U) [Mass/Vol] Negative (05/12/22 9:58 AM) Normal Negative [facility] UA Auto SS Specific gravity (U) [Rel density] 1.020 *NA* (05/12/22 9:58 AM) Invalid Interpretation Code 1.005 - 1.030 [facility] UA Auto SS UA Spec Desc Clean Catch (05/12/22 9:58 AM) Normal [facility] UA Auto SS Urobilinogen Qn (U) 0.9137529 {Lazaro'U}/dL Normal 0.0 - 1.0 EU/dL [facility] UA Auto SS WBC Auto Ql (U) Negative (05/12/22 9:58 AM) Normal Negative [facility] UA Auto SS WBC LM.HPF (Urine sed) [#/Area] 0-5 /HPF Normal 0-5/HPF [facility] UA Auto SS BLOOD BANKOrdered By: Hillary Coppola on 05-11-2022 ABO/Rh Retype Interp Positive Invalid Interpretation Code [facility] BB Subsection CHEMISTRYOrdered By: SYSTEM SYSTEM on 05-11-2022 Albumin [Mass/Vol] 4.6 g/dL Normal 3.3 - 5.0 gm/dL [facility] Remisol Albumin/Globulin [Mass ratio] 1.6 {ratio} Normal 1.1 - 2.2 [facility] Remisol ALP [Catalytic activity/Vol] 44 [iU]/d Normal [...] rate/Area] mL/min/1.73 m2 Normal >=59mL/min/1. 73 m2 [facility] Chem S GFR/1.73 sq M.predicted among non-blacks MDRD (S/P/Bld) [Vol rate/Area] mL/min/1.73 m2 Normal >=59mL/min/1. 73 m2 [facility] Chem S Globulin (S) [Mass/Vol] 2.8 g/dL [...] 8.9 fL Normal 6.4 - 10.8 fL [facility] HemeAutoSS Platelets (Bld) [#/Vol] 325.0 E9/L Normal 150.0 - 500.0 E9/L [facility] HemeAutoSS RBC (Bld) [#/Vol] 5.2 E12/L Normal 4.3 - 5.9 E12/L [facility] HemeAutoSS WBC corrected for nucl RBC Auto (Bld) [#/Vol] 19.3 E9/L High 4.0 - 11.0 E9/L [facility] HemeAutoSS Comment on above: Result Comment: Celeste gupta reviewed by MM. Coding Summaryon 05-26-2020 Coding Summary CODING DATE: 05/26/2020 [facility] STATUS: Home PAYOR: Commercial Insurance ADMIT DX: [...] Essie Beyer Date Saved: 05/26/2020 10:38 am [place] ED Note-Nursingon 05-26-2020 ED Note-Nursing Pt calls and gives verbal permission to copy lab result and mail to her home. 2 identifiers given. [place] Consent Formson 05-25-2020 Consent Forms [id number] #[id number] [place] .QC Respiratory Panel 2.1 (B ioFire)on 05-23-2020 Internal Control-Resp Panel 2.1(BioFire) Pass [place] Comment on above: Order Comment: Order ed by Timoteo. [[id number]] Performed By: #### 6 [id number], [id number] #### [facility] (DEFAULT) [address] [id number] ED Clinical Summaryon 2019 ED Clinical Summary [facility] ? Urgent Care [address] [place] [id number] Clinical Summary PERSON INFORMATION Name: JULISSA WEEMS Age: 29 Years Sex: FEMALE : 1990 MRN: Acct#: Visit Reason: FEVER, SOB, COUGH Arrival: 05/23/2020 13:31:24 Discharge: 05/23/2020 14:23:00 LOS: 000 00:52 Check In: 05/23/2020 13:31:24 Checkout: 05/23/2020 14:23:00 Address: [address] [place] [id number] PCP: Provider, None PROVIDER INFORMATION Provider Role [...] EDUCATION INFORMATION Instructions: Upper Respiratory Infection, Adult, [id number] Follow-Up: With: Address: When: Jaime Esquivel [facility], [address] [place], [place] [id number] Business (1) Comments: Please follow-up with your primary care doctor or Dr. Esquivel, medical doctor cash reconciliation specialist, their office schedule an appointment to be [...] verbalizes understanding of instructions given Comment: Normal [facility] ED Patient Summaryon 020 ED Patient Summary [facility] ? Urgent Care [address] [place] [id number] PATIENT DISCHARGE INSTRUCTIONS Patient Information Name: JULISSA WEEMS Age: 29 Years Date of : 1990 [facility]: [id number] Reason For Visit: FEVER, SOB, COUGH Arrival Time: 05/23/2020 13:31:24 Primary Care Physician: Provider, None Attending Physician: Heath Argueta PA-C Comment: Patient Education With: Address: When: Jaime [facility], [address] [place] [address] Business (1) Comments: Please follow-up with your primary care doctor or Dr. Esquivel, medical doctor cash reconciliation specialist, their office schedule an appointment to be [...] other clear broths. General instructions ? Take utps-akr-ebbdoco and prescription medicines only as told by [...] not have soap and water, use hand fitness management director. ? Avoid touching your mouth, face, eyes, [...] get better within 7?10 days. ? Take qnez-tef-aoxyvey and prescription medicines only as told by your doctor. This information is not intended to replace advice given to you by your health care provider. Make sure you discuss any questions you have with your health care provider. Document Released: 03/27/2009 Document Revised: 06/01/2018 Document Reviewed: 06/01/2018 [employer] Interactive Patient Education ? 2019 [employer]. Medication Information: The exam and treatment you received today in the [facility] Emergency Department were for an urgent problem and are not intended as complete care. It is important for you to follow up with a doctor, nurse practitioner, or physician?s promotions assistant sales marketing for ongoing care. If your symptoms become [...] so we can reach you if necessary. [facility] Emergency Department has provided you with a complete list of medications post discharge. Please inform your plate cleaner/provider of your visit and for further instruction on these medications. Any specific questions regarding your chronic medications and dosages should be discussed with your primary care physician(s) and/or pharmacist. New Medications [id number], [address], [place] [id number], [phone] homatropine-HYDROcod one (homatropine-hydroco done 1.5 mg-5 mg/5 [...] for Disease Control and Prevention June 2014 [place] Patient Handouton 05-23-2020 Patient Handout Patient Education [...] other clear broths. General instructions ? Take pwtx-bcf-kaaymms and prescription medicines only as told by [...] not have soap and water, use hand fitness management director. ? Avoid touching your mouth, face, eyes, [...] get better within 7?10 days. ? Take qmvn-cbt-uxdhsjq and prescription medicines only as told by your doctor. This information is not intended to replace advice given to you by your health care provider. Make sure you discuss any questions you have with your health care provider. Document Released: 03/27/2009 Document Revised: 06/01/2018 Document Reviewed: 06/01/2018 [employer] Interactive Patient Education ? 2019 [employer] Normal [facility] Respiratory Panel 2.1 (BioFi re)on 05-23-2020 Adenovirus -BioFire Not Detected Normal Not Detected [facility] Comment on above: Performed By: #### 6 [id number], [id number] #### [facility] (DEFAULT) [address] [place] [address] Bordetella parapertussis -BioFire Not Detected Normal Not Detected [facility] Comment on above: Performed By: #### 6 [id number], [id number] #### [facility] (DEFAULT) [address] [place] [address] [id number] Bordetella pertussis -BioFire Not Detected Normal Not Detected [facility] Comment on above: Performed By: #### 6 [id number], [id number] #### [facility] (DEFAULT) [address] [place] [address] 93211 Chlamydia pneumoniae -BioFire Not Detected Normal Not Detected [facility] Comment on above: Performed By: #### 6 [id number], [id number] #### [facility] (DEFAULT) [address] [place] [address] 89724 Coronavirus 229E (Not COVID-19) -BioFire Not Detected Normal Not Detected [facility] Comment on above: Performed By: #### 6 [id number], [id number] #### [facility] (DEFAULT) [address] [place] [address] 07984 Coronavirus HKU1 (Not COVID-19) -BioFire Not Detected Normal Not Detected [facility] Comment on above: Performed By: #### 6 [id number], [id number] #### [facility] (DEFAULT) [address] [place] [address] 55424 Coronavirus NL63 (Not COVID-19) -BioFire Not Detected Normal Not Detected [facility] Comment on above: Performed By: #### 6 [id number], [id number] #### [facility] (DEFAULT) [address] [place] [address] 26516 Coronavirus OC43 (Not COVID-19) -BioFire Not Detected Normal Not Detected [facility] Comment on above: Performed By: #### 6 [id number], [id number] #### [facility] (DEFAULT) [address] [place] [address] 15240 Human Metapneumovirus -BioFire Not Detected Normal Not Detected [facility] Comment on above: Performed By: #### 6 [id number], [id number] #### [facility] (DEFAULT) [address] [place] [address] 13862 Human Rhinovirus/Enteroviru s -BioFire Detected Abnormal Not Detected [facility] Comment on above: Performed By: #### 6 [id number], [id number] #### [facility] (DEFAULT) [address] [place] [address] 14901 Influenza A (no subtype) -BioFire Not Detected Normal Not Detected [facility] Comment on above: Performed By: #### 6 [id number], [id number] #### [facility] (DEFAULT) [address] [place] [address] 74017 Influenza A -BioFire Not Detected Normal Not Detected [facility] Comment on above: Performed By: #### 6 [id number], [id number] #### [facility] (DEFAULT) [address] [place] [address] 74486 Influenza A H1 -BioFire Not Detected Normal Not Detected [facility] Comment on above: Performed By: #### 6 [id number], [id number] #### [facility] (DEFAULT) [address] [place] [address] 72631 Influenza A H1-2009 -BioFire Not Detected Normal Not Detected [facility] Comment on above: Performed By: #### 6 [id number], [id number] #### [facility] (DEFAULT) [address] [place] [address] 12350 Influenza A H3 -BioFire Not Detected Normal Not Detected [facility] Comment on above: Performed By: #### 6 [id number], [id number] #### [facility] (DEFAULT) [address] [place] [address] 80459 Influenza B -BioFire Not Detected Normal Not Detected [facility] Comment on above: Performed By: #### 6 [id number], [id number] #### [facility] (DEFAULT) [address] [place] [address] 40845 Mycoplasma pneumoniae -BioFire Not Detected Normal Not Detected [facility] Comment on above: Performed By: #### 6 [id number], [id number] #### [facility] (DEFAULT) [address] [place] [address] 87327 Parainfluenza Virus 1 -BioFire Not Detected Normal Not Detected [facility] Comment on above: Performed By: #### 6 [id number], [id number] #### [facility] (DEFAULT) [address] [place] [address] 41325 Parainfluenza Virus 2 -BioFire Not Detected Normal Not Detected [facility] Comment on above: Performed By: #### 6 [id number], [id number] #### [facility] (DEFAULT) [address] [place] [address] 35801 Parainfluenza Virus 3 -BioFire Not Detected Normal Not Detected [facility] Comment on above: Performed By: #### 6 [id number], [id number] #### [facility] (DEFAULT) [address] [place] [address] 60768 Parainfluenza Virus 4 -BioFire Not Detected Normal Not Detected [facility] Comment on above: Performed By: #### 6 [id number], [id number] #### [facility] (DEFAULT) [address] [place] [address] 27932 Respiratory Syncytial Virus -BioFire Not Detected Normal Not Detected [facility] Comment on above: Performed By: #### 6 [id number], [id number] #### [facility] (DEFAULT) [address] [place] [address] 44019 SARS-CoV-2 (COVID-19) -BioFire Not Detected Normal Not Detected [facility] Comment on above: Performed By: #### 6 [id number], [id number] #### [facility] (DEFAULT) [address] [place] [address] 41944 Urgent Care [facility] 020 Urgent Care Record [facility] ? Urgent Care [address] [place] [address] PATIENT DISCHARGE INSTRUCTIONS Patient Information Name: JULISSA [...] legal documents With: Address: When: Jaime Esquivel [facility], [address] [place], [place] [id number] Business (1) Comments: Please follow-up with your primary care doctor or Dr. Esquivel, medical doctor cash reconciliation specialist, their office schedule an appointment to be seen in 3 to 5 days for continued care, take only Tylenol for headaches or fevers, drink plenty of water for hydration, notified with your COVID-19 results, and return back to the urgent care center for any worsening symptoms, concerns, or complications. Medication Information: The exam and treatment you received today in the [facility] were for an urgent problem and are not intended as complete care. It is important for you to follow up with a doctor, nurse practitioner, or physician?s promotions assistant sales marketing for ongoing care. If your symptoms become [...] so we can reach you if necessary. [facility] has provided you with a complete list of medications post discharge. Please inform your plate cleaner/provider of your visit and for further instruction on these medications. Any specific questions regarding your chronic medications and dosages should be discussed with your primary care physician(s) and/or pharmacist. New Medications [id number], [address], [place] [id number], [phone] homatropine-HYDROcod one (homatropine-hydroco done 1.5 mg-5 mg/5 [...] other clear broths. General instructions ? Take fvzn-pun-vjpxqux and prescription medicines only as told by [...] not have soap and water, use hand fitness management director. ? Avoid touching your mouth, face, eyes, [...] get better within 7?10 days. ? Take jmgh-ryr-zpgutoe and prescription medicines only as told by your doctor. This information is not intended to replace advice given to you by your health care provider. Make sure you discuss any questions you have with your health care provider. Document Released: 03/27/2009 Document Revised: 06/01/2018 Document Reviewed: 06/01/2018 [employer] Patient Education ? 2019 [employer] Viruses or Bacteria What?s got you [...] for Disease Control and Prevention June 2014 [place] Vital Signs Date Time Vital Sign Value Performing Clinician Facility 04-21-2025 15:39-0400 Body mass index (BMI) [Ratio] 33.83 kg/m2 Mik Elmo DO Work Phone: [facility] 04-21-2025 15:39-0400 Body weight 97.98 kg Mik Elmo DO Work Phone: [facility] 04-21-2025 15:39-0400 Diastolic blood pressure 80 mm[Hg] Mik Elmo DO Work Phone: [facility] 04-21-2025 15:39-0400 Systolic blood pressure 124 mm[Hg] Mik Elmo DO Work Phone: [facility] 04-14-2025 09:03-0400 Body mass index (BMI) [Ratio] 33.8 kg/m2 Mik Elmo DO Work Phone: [facility] 04-14-2025 09:03-0400 Body weight 97.89 kg Mik Elmo DO Work Phone: [facility] 04-14-2025 09:03-0400 Diastolic blood pressure 82 mm[Hg] Mik Elmo DO Work Phone: [facility] 04-14-2025 09:03-0400 Systolic blood pressure 126 mm[Hg] Mik Elmo DO Work Phone: [facility] 04-08-2025 11:38-0400 Body mass index (BMI) [Ratio] 33.36 kg/m2 Mik Elmo DO Work Phone: [facility] 04-08-2025 11:38-0400 Body weight 96.62 kg Mik Elmo DO Work Phone: [facility] 04-08-2025 11:38-0400 Diastolic blood pressure 78 mm[Hg] Mik Elmo DO Work Phone: [facility] 04-08-2025 11:38-0400 Systolic blood pressure 122 mm[Hg] Mik Elmo DO Work Phone: [facility] 03-24-2025 11:35-0400 Body mass index (BMI) [Ratio] 33.52 kg/m2 Mik Elmo DO Work Phone: [facility] 03-24-2025 11:35-0400 Body weight 97.07 kg Mik Elmo DO Work Phone: [facility] 03-24-2025 11:35-0400 Diastolic blood pressure 80 mm[Hg] Mik Elmo DO Work Phone: [facility] 03-24-2025 11:35-0400 Systolic blood pressure 130 mm[Hg] Mik Elmo DO Work Phone: [facility] 02-24-2025 10:50-0400 Body mass index (BMI) [Ratio] 33.05 kg/m2 Mik Elmo DO Work Phone: [facility] 02-24-2025 10:50-0400 Body weight 95.71 kg Mik Elmo DO Work Phone: [facility] 02-24-2025 10:50-0400 Diastolic blood pressure 74 mm[Hg] Mik Elmo DO Work Phone: [facility] 02-24-2025 10:50-0400 Systolic blood pressure 122 mm[Hg] Mik Elmo DO Work Phone: [facility] 01-27-2025 08:51-0400 Body mass index (BMI) [Ratio] 33.11 kg/m2 Mik Elmo DO Work Phone: [facility] 01-27-2025 08:51-0400 Body weight 95.89 kg Mik Elmo DO Work Phone: [facility] 01-27-2025 08:51-0400 Diastolic blood pressure 80 mm[Hg] Mik Elmo DO Work Phone: [facility] 01-27-2025 08:51-0400 Systolic blood pressure 136 mm[Hg] Mik Elmo DO Work Phone: [facility] 01-21-2025 09:05-0400 Body height 171.5 cm Bruce Perez MD Work Phone: [facility] 01-21-2025 09:05-0400 Body mass index (BMI) [Ratio] 33.08 kg/m2 Bruce Perez MD Work Phone: [facility] 01-21-2025 09:05-0400 Body weight 97.25 kg Bruce Perez MD Work Phone: [facility] 01-21-2025 09:05-0400 Diastolic blood pressure 74 mm[Hg] Bruce Perez MD Work Phone: [facility] 01-21-2025 09:05-0400 Heart rate 94 /min Bruce Perez MD Work Phone: [facility] 01-21-2025 09:05-0400 Systolic blood pressure 151 mm[Hg] Bruce Perez MD Work Phone: [facility] 12-23-2024 10:42-0500 Body mass index (BMI) [Ratio] 33.17 kg/m2 Lindsey GONZALEZ Work Phone: [facility] 12-23-2024 10:42-0500 Body weight 96.07 kg Lindsey GONZALEZ Work Phone: [facility] 12-23-2024 10:42-0500 Diastolic blood pressure 84 mm[Hg] Lindsey GONZALEZ Work Phone: [facility] 12-23-2024 10:42-0500 Systolic blood pressure 142 mm[Hg] Lindsey GONZALEZ Work Phone: [facility] 11-25-2024 09:59-0500 Body mass index (BMI) [Ratio] 32.28 kg/m2 Mik Elmo DO Work Phone: [facility] 11-25-2024 09:59-0500 Body weight 93.5 kg Mik Elmo DO Work Phone: [facility] 11-25-2024 09:59-0500 Diastolic blood pressure 84 mm[Hg] Mik Elmo DO Work Phone: [facility] 11-25-2024 09:59-0500 Systolic blood pressure 120 mm[Hg] Mik Elmo DO Work Phone: [facility] 10-24-2024 14:22-0500 Body mass index (BMI) [Ratio] 31.64 kg/m2 Nom Nurse [facility] 10-24-2024 14:22-0500 Body weight 91.63 kg Nom Nurse [facility] 10-24-2024 14:22-0500 Diastolic blood pressure 74 mm[Hg] [facility] Nurse [facility] 10-24-2024 14:22-0500 Systolic blood pressure 120 mm[Hg] [facility] Nurse [facility] 09-16-2024 15:18-0500 Body mass index (BMI) [Ratio] 32.08 kg/m2 Mik Elmo DO Work Phone: [facility] 09-16-2024 15:18-0500 Body weight 92.9 kg Mik Elmo DO Work Phone: [facility] 09-16-2024 15:18-0500 Diastolic blood pressure 68 mm[Hg] Mik Elmo DO Work Phone: [facility] 09-16-2024 15:18-0500 Systolic blood pressure 114 mm[Hg] Mik Elmo DO Work Phone: [facility] 05-12-2022 15:32-0400 [facility] 05-12-2022 15:32-0400 Diastolic blood pressure 70 mm[Hg] Kaylinn Dokken [facility] 05-12-2022 15:32-0400 Heart rate 101 /min Kaylinn Dokken [facility] 05-12-2022 15:32-0400 Mean blood pressure 84 mm[Hg] Kaylinn Dokken [facility] 05-12-2022 15:32-0400 Respiratory rate 24 /min Kaylinn Dokken [facility] 05-12-2022 15:32-0400 SaO2% (BldA) [Mass fraction] 96 % Kaylinn Dokken [facility] 05-12-2022 15:32-0400 Systolic blood pressure 114 mm[Hg] Kaylinn Dokken [facility] 05-12-2022 14:20-0400 Body temperature 98.06 [degF] Kaylinn Dokken [facility] 05-12-2022 14:20-0400 Diastolic blood pressure 69 mm[Hg] Kaylinn Dokken [facility] 05-12-2022 14:20-0400 Heart rate 73 /min Kaylinn Dokken [facility] 05-12-2022 14:20-0400 Respiratory rate 16 /min Kaylinn Dokken [facility] 05-12-2022 14:20-0400 SaO2% (BldA) [Mass fraction] 97 % Kaylinn Dokken [facility] 05-12-2022 14:20-0400 Systolic blood pressure 108 mm[Hg] Kaylinn Dokken [facility] 05-12-2022 13:14-0400 Body temperature 98.24 [degF] Kaylinn Dokken [facility] 05-12-2022 13:14-0400 Diastolic blood pressure 82 mm[Hg] Kaylinn Dokken [facility] 05-12-2022 13:14-0400 Heart rate 87 /min Kaylinn Dokken [facility] 05-12-2022 13:14-0400 Mean blood pressure 98 mm[Hg] Kaylinn Dokken [facility] 05-12-2022 13:14-0400 SaO2% (BldA) [Mass fraction] 95 % Kaylinn Dokken [facility] 05-12-2022 13:14-0400 Systolic blood pressure 129 mm[Hg] Kaylinn Dokken [facility] 05-12-2022 13:05-0400 Body temperature 97.88 [degF] Kaylinn Dokken [facility] 05-12-2022 13:05-0400 Mean blood pressure 96 mm[Hg] Kaylinn Dokken [facility] 05-12-2022 13:05-0400 Respiratory rate 14 /min Kaylinn Dokken [facility] 05-12-2022 13:00-0400 Respiratory rate 13 /min Kaylinn Dokken [facility] 05-12-2022 12:45-0400 Mean blood pressure 95 mm[Hg] Kaylinn Dokken [facility] 05-12-2022 11:56-0400 Body temperature 98.06 [degF] Kaylinn Dokken [facility] 05-12-2022 11:50-0400 Respiratory rate 16 /min Kaylinn Dokken [facility] 05-12-2022 11:45-0400 Respiratory rate 16 /min Kaylinn Dokken [facility] 05-12-2022 09:30-0400 Blood Pressure Location Kaylinn Dokken [facility] 05-12-2022 09:30-0400 Mean blood pressure 93 mm[Hg] Kaylinn Dokken [facility] 05-12-2022 09:28-0400 Blood Pressure Location Kaylinn Dokken [facility] 05-12-2022 09:28-0400 Body temperature 97.7 [degF] Kaylinn Dokken [facility] 05-12-2022 09:00-0400 Hourly Rounding Kaylinn Dokken [facility] 05-12-2022 09:00-0400 Promise to Return Kaylinn Dokken [facility] 05-12-2022 08:00-0400 Hourly Rounding Kaylinn Dokken [facility] 05-12-2022 08:00-0400 Promise to Return Kaylinn Dokken [facility] 05-11-2022 22:41-0400 Heart rate 112 /min Kaylinn Dokken [facility] 03-08-2022 10:17-0400 Blood Pressure Location Helene HAMILTON [facility] 03-08-2022 10:17-0400 Body temperature 99.5 [degF] Helene HAMILTON [facility] 03-08-2022 10:17-0400 Diastolic blood pressure 84 mm[Hg] Helene HAMILTON [facility] 03-08-2022 10:17-0400 Heart rate 84 /min Helene HAMILTON [facility] 03-08-2022 10:17-0400 SaO2% (BldA) [Mass fraction] 97 % Helene HAMILTON [facility] 03-08-2022 10:17-0400 Systolic blood pressure 118 mm[Hg] Helene HAMILTON [facility] Encounters Encounter Date Encounter Type Care Provider Facility Start: 04-23-2025 End: 04-23-2025 Clinisync Result Encounter Mik Elmo DO Work Phone: [facility] Unsolicited Start: 04-23-2025 End: 04-23-2025 Clinisync Result Encounter Mik Elmo DO Work Phone: [facility] Unsolicited Start: 04-21-2025 End: 04-21-2025 ambulatory MIK ELMO Not Available Start: 04-21-2025 End: 04-21-2025 flow sheet Mik Elmo DO Work Phone: [facility] Comment on above: Third trimester preg lillian ([facility]); 32 weeks gestation of ([facility]); Insulin controlled gestational diabetes mellitus (GDM) in third trimester ([facility]); Multigravida of advanced maternal age in third trimester ([facility]); Hypertension, unspecified type Start: 04-21-2025 End: 04-21-2025 [...] Comment on above: Third trimester preg lillian ([facility]); 31 weeks gestation of ([facility]) Start: 04-14-2025 End: 04-14-2025 ambulatory MIK ELMO Not Available Start: 04-08-2025 End: 04-08-2025 Bamboo flowsheet Mik Elmo DO Work Phone: [facility] Start: 04-08-2025 End: 04-08-2025 Bamboo flowsheet Mik Elmo DO Work Phone: [facility] Start: 04-08-2025 End: 04-08-2025 flow sheet Mik Elmo DO Work Phone: [facility] Comment on above: Third trimester preg lillian ([facility]); 30 weeks gestation of ([facility]); Gestational diabetes mellitus (GDM), antepartum, gestational diabetes method of control unspecified ([facility]) Start: 04-08-2025 End: 04-08-2025 ambulatory MIK ELMO Not Available Start: 04-01-2025 End: 04-01-2025 Orders Only Michelle Ashraf RN [facility] Comment on above: Chronic hypertension affecting (Primary Dx); Gestational diabetes mellitus (GDM), antepartum, gestational diabetes method of control unspecified Start: 03-31-2025 End: [facility] Start: 03-24-2025 End: 03-24-2025 Bamboo flowsheet Mik Elmo DO Work Phone: [facility] Start: 03-24-2025 End: 03-24-2025 Bamboo flowsheet Mik Elmo DO Work Phone: [facility] Start: 03-24-2025 End: 03-24-2025 flow sheet Mik Elmo DO Work Phone: [facility] Comment on above: Gestational diabetes mellitus (GDM), antepartum, gestational diabetes method of control unspecified; Multigravida of advanced maternal age in third trimester; Third trimester ; 28 weeks gestation of Start: 03-24-2025 End: 03-24-2025 ambulatory MIK ELMO Not Available Start: 03-04-2025 End: 03-04-2025 Orders Only Oralia Elliott CMA [facility] Comment on above: Chronic hypertension affecting (Primary Dx); Advanced maternal age in multigravida, second trimester; Gestational diabetes mellitus (GDM), antepartum, gestational diabetes method of control unspecified Start: 03-03-2025 End: 03-03-20[facility] Start: 02-24-2025 End: 02-24-2025 Bamboo flowsheet Mik [...] 02-17-2025 End: 02-17-2025 ambulatory Mik R ELMO Facility:[facility] Start: 02-17-2025 End: 02-17-2025 Patient encounter procedure Mik R ELMO [facility] Start: 02-04-2025 End: 02-04-2025 Telephone encounter Yamila Rayo LPN [facility] Start: 02-04-2025 End: 02-04-2025 ambulatory Mik R ELMO Facility:[facility] Start: 02-04-2025 End: 02-04-2025 Lab Drop off Mik R ELMO [facility] Start: 01-27-2025 End: 01-27-2025 Bamboo flowsheet Mik Elmo DO Work Phone: [facility] Start: 01-27-2025 End: 01-27-2025 Bamboo flowsheet Mik Elmo DO Work Phone: [facility] Start: 01-27-2025 End: 01-27-2025 ambulatory Mik R ELMO Facility:[facility] Start: 01-27-2025 End: 01-27-2025 Patient encounter procedure Mik R ELMO [facility] Start: 01-27-2025 End: 01-27-2025 flow sheet Mik Elmo DO Work Phone: [facility] Comment on above: 20 weeks gestation o f ; Second trimester ; Diabetes mellitus screening; Elevated blood pressure affecting , antepartum; Gestational diabetes mellitus (GDM), antepartum, gestational diabetes method of control unspecified; Elevated glucose tolerance test; induced hypertension, antepartum; Antepartum multigravida of advanced maternal age Start: 01-27-2025 End: 01-27-2025 ambulatory MIK ELMO Not Available Start: 01-21-2025 End: 01-21-2025 Telephone encounter Jessy Neil [facility] Comment on above: Chronic hypertension affecting (Primary Dx); Advanced maternal age in multigravida, second trimester; Prediabetes in mother during ; Gestational diabetes mellitus (GDM), antepartum, gestational diabetes method of control unspecified Start: 01-21-2025 End: 01-21-2025 Office consultation new/estab patient 80 min Bruce Perez MD Work Phone: [facility] Comment on above: Advanced maternal ag e in multigravida, second trimester (Primary Dx); Chronic hypertension affecting ; Prediabetes in mother during ; Gestational diabetes mellitus (GDM), antepartum, gestational diabetes method of control unspecified; 19 weeks gestation of Start: 01-21-2025 End: 01-21[facility] Start: 01-20-2025 End: 01-20-2025 Clinisync Result Encounter Mik Elmo DO Work Phone: [facility] External [facility] Unsolicited Start: 01-20-2025 End: 01-20-2025 Clinisync Result Encounter Mik Elmo DO Work Phone: [facility] Unsolicited Start: 01-17-2025 End: 01-17-2025 Chart abstracting Bruce Perez MD Work Phone: [facility] Start: 01-17-2025 End: 01-17-2025 Telephone encounter Lindsey Ramos LPN [facility] Start: 12-30-2024 End: 12-30-2024 ambulatory MIK ELMO [...] Perez MD Work Phone: [facility] Start: 11-25-2024 End: 11-25-2024 Bamboo flowsheet Mik [...] 10-03-2022 End: 10-03-2022 Patient encounter procedure DONA Nuñez [place] [facility] Start: 10-03-2022 End: 10-03-2022 Manual pelvic examination DONA Nuñez ESEQUIELGENE [facility] Start: 07-12-2022 End: 07-12-2022 Patient encounter procedure Helene HAMILTON [facility] Start: 06-01-2022 End: 08-30-2022 Patient encounter procedure Helene HAMILTON [facility] Start: 05-11-2022 End: 05-12-2022 Emergency department patient visit William Yoder [facility] Start: 03-08-2022 End: 03-08-2022 Patient encounter procedure Helene Granados LEONELABERNARDINO [facility] Procedures Date Procedure Procedure Detail Performing Clinician Start: 04-23-2025 US OB BPP W NON-STRESS Mik Elmo DO Work Phone: Start: 04-21-2025 Urnls dip stick/tabl et rgnt [...] ion [Identifier] in Cervix by Cyto stain [facility] Nurse Start: 05-12-2022 Laparoscopic appendectomy William Yoder History of appendectomy History of appendectomy( Confirmed ) Helene HAMILTON None (qualifier value) Rachna HAMILTON Plan of Treatment Date Care Activity Detail Author Start: 09-16-2029 Screening for malign ant neoplasm of cervix [facility] Start: 09-16-2027 Screening for malign ant neoplasm of cervix Pap Smear [facility] Start: 04-01-2026 End: 04-01-2026 US MFM with or without consult US MFM with or without consult Imaging Routine Chronic hypertension affecting Gestational diabetes mellitus (GDM), antepartum, gestational diabetes method of control unspecified Expected: 04/01/2026 (Approximate), Expires: 04/01/2026 [employer] Work Phone: Comment on above: Expected: 04/01/2026 (Approximate), Expires: 04/01/2026 Start: 03-04-2026 End: 03-04-2026 US MFM with or without consult US MFM with or without consult Imaging Routine Chronic hypertension affecting Advanced maternal age in multigravida, second trimester Gestational diabetes mellitus (GDM), antepartum, gestational diabetes method of control unspecified Expected: 03/04/2026 (Approximate), Expires: 03/04/2026 [employer] Work Phone: Comment on above: Expected: 03/04/2026 (Approximate), Expires: 03/04/2026 Start: 01-21-2026 Adult BMI Screening Adult BMI Screen ing [facility] Start: 01-21-2026 Tobacco Screening Tobacco Screening [facility] Start: 08-05-2025 Screening for malign ant neoplasm of cervix [facility] Start: 06-23-[address] [facility] Start: 05-19-2025 End: 05-19-2025 Patient encounter procedure 05/19/2025 9:40 AM EDT Routine [facility] [address] [place] [phone] Mik Borrego, DO [address], [place] [address] [facility] Start: 05-12-2025 End: 05-12-2025 Patient encounter procedure 05/12/2025 9:10 AM EDT Routine [facility] [address] [place] [address] Mik Borrego, DO [address] [place] [address] [facility] Start: 05-05-2025 End: 05-05-2025 Patient encounter procedure 05/05/2025 9:10 AM EDT Routine [facility] [address] [place] [phone] Mik Borrego, DO [address] [place] [address] [facility] Start: 04-29-2025 End: 04-29-2025 Patient encounter procedure 04/29/2025 3:15 PM EDT Appointment [facility] - Ultrasound [address] [place] [address] [facility] - Ultrasound Start: 04-28-2025 End: 04-28-2025 Patient encounter procedure 04/28/2025 2:50 PM EDT Routine [facility] [address] [place] [phone] Mik Borrego, DO [address] [place] [address] [facility] Start: 04-21-2025 End: 04-21-2025 Patient encounter procedure 04/21/2025 3:20 PM EDT Routine [facility] [address] [place] [phone] Mik Borrego, DO [address] [place] [address] [facility] Start: 04-21-2025 End: 08-21-2025 US for US OB follow up transabdominal approach Imaging Routine Insulin controlled gestational diabetes mellitus (GDM) in third trimester ([facility]) Expected: 04/21/2025, Expires: 08/21/2025 [facility] Work Phone: Comment on above: Expected: 04/21/2025 , Expires: 08/21/2025 Start: 04-14-2025 End: 04-14-2025 Patient encounter procedure [facility] Comment on above: Arrived Start: 04-08-2025 End: 04-08-2025 Patient encounter procedure [facility] Comment on above: Arrived Start: 03-31-2025 End: 03-31-2025 Patient encounter procedure 03/31/2025 11:00 AM EDT Appointment [facility] US Imaging [address] [place] [phone] [facility] Start: 03-24-2025 End: 09-23-2025 US biophysical profile w non stress test US biophysical profile w non stress test Imaging Routine Gestational diabetes mellitus (GDM), antepartum, gestational diabetes method of control unspecified Multigravida of advanced maternal age in third trimester Expected: 03/24/2025 (Approximate), Expires: 09/23/2025 [facility] Comment on above: Expected: 03/24/2025 (Approximate), [...] encounter procedure 03/03/2025 11:00 AM EDT Appointment [facility] US Imaging [address] [place] [phone] [facility] Start: 02-24-2025 End: 02-24-2025 Patient encounter procedure [facility] Comment on above: Arrived Start: 02-10-2025 End: 02-10-2025 ambulatory 02/10/2025 1:30 PM EDT Support Visit Maternal- Medicine at [facility] [address] [place] [address] Elham Garcia RN [address] [facility] [address], [address] [place] [address] Mansi Boyer, RD [address], [address] [place] [address] [facility] Start: 02-10-2025 End: 02-10-2025 Telemedicine consultation with patient 02/10/2025 10:30 AM EDT Telemedicine [facility] at [facility] [address] [place] [phone] Hien Ribera PA-C [address] [place] [address] [facility] Start: 01-27-2025 End: 01-27-2026 CBC panel - Blood by Automated count CBC Lab Routine Diabetes mellitus screening Expected: 01/27/2025 (Approximate), Expires: 01/27/2026 [facility] Work Phone: Comment on above: Expected: 01/27/2025 (Approximate), Expires: 01/27/2026 Start: 01-27-2025 End: 01-27-2026 Comprehensive metabolic 2000 panel - Serum or Plasma Comprehensive metabolic panel Lab Routine Second trimester Elevated blood pressure affecting , antepartum induced hypertension, antepartum Antepartum multigravida of advanced maternal age Expected: 01/27/2025 (Approximate), Expires: 01/27/2026 [facility] Healthcare Comment on above: Expected: 01/27/2025 (Approximate), Expires: 01/27/2026 Start: 01-27-2025 End: 01-27-2026 ECG 12 lead ECG 12 lead ECG Routine Second trimester Elevated blood pressure affecting , antepartum induced hypertension, antepartum Antepartum multigravida of advanced maternal age Expected: 01/27/2025 (Approximate), Expires: 01/27/2026 [facility] Comment on above: Expected: 01/27/2025 (Approximate), Expires: 01/27/2026 Start: 01-27-2025 End: 01-27-2027 Echocardiogram 2D complete Echocardiogram 2D complete Echocardiography Routine Second trimester Elevated blood pressure affecting , antepartum induced hypertension, antepartum Antepartum multigravida of advanced maternal age Expected: 01/27/2025 (Approximate), Expires: 01/27/2027 [facility] Comment on above: Expected: 01/27/2025 (Approximate), Expires: 01/27/2027 Start: 01-27-2025 End: 01-27-2026 Lactate dehydrogenase [Enzymatic activity/volume] in Serum or Plasma by Lactate to pyruvate reaction Lactate dehydrogenase Lab Routine Second trimester Elevated blood pressure affecting , antepartum induced hypertension, antepartum Antepartum multigravida of advanced maternal age Expected: 01/27/2025, Expires: 01/27/2026 [facility] Comment on above: Expected: 01/27/2025 , Expires: 01/27/2026 Start: 01-27-2025 End: 01-27-2026 Measurement of glucose 1 hour after glucose challenge for glucose tolerance test Glucose tolerance, 1 hour Lab Routine Diabetes mellitus screening Expected: 01/27/2025 (Approximate), Expires: 01/27/2026 [facility] Comment on above: Expected: 01/27/2025 (Approximate), Expires: 01/27/2026 Start: 01-27-2025 End: 01-27-2026 Natriuretic peptide B [Mass/volume] in Blood B-type natriuretic peptide Lab Routine Second trimester Elevated blood pressure affecting , antepartum induced hypertension, antepartum Antepartum multigravida of advanced maternal age Expected: 01/27/2025 (Approximate), Expires: 01/27/2026 [facility] Comment on above: Expected: 01/27/2025 (Approximate), Expires: 01/27/2026 Start: 01-27-2025 End: 01-27-2026 Urate [Mass/volume] in Serum or Plasma Uric acid Lab Routine Second trimester Elevated blood pressure affecting , antepartum induced hypertension, antepartum Antepartum multigravida of advanced maternal age Expected: 01/27/2025 (Approximate), Expires: 01/27/2026 [facility] Comment on above: Expected: 01/27/2025 (Approximate), [...] of control unspecified Expected: 01/21/2025, Expires: 01/21/2026 [facility] Work Phone: Comment on above: Expected: 01/21/2025 , Expires: 01/21/2026 Start: 01-21-2025 End: 01-21-2025 Patient encounter procedure 01/21/2025 10:30 AM EDT Office Visit Maternal- Medicine at [facility] [address] [place] [phone] Bruce Perez MD [address] [address] [facility] Start: 01-21-2025 End: 01-21-2025 Patient encounter procedure 01/21/2025 9:15 AM EDT Appointment [facility] US Imaging [address] [facility] [place] [phone] [facility] US Imaging Start: 01-20-2025 End: 01-20-2025 Patient encounter procedure 01/20/2025 9:20 AM EDT Routine [facility] [address] [facility] [place] [phone] Mik Borrego, DO [address] [place] [address] [facility] Start: 12-30-2024 End: 12-30-2024 Clinical Support 12/30/2024 9:10 AM EDT Clinical Support [facility] [address] [facility] [address] [place] [address] [facility] Start: 12-23-2024 End: 02-22-2025 [...] Start: 10-24-2024 End: 10-24-2025 US Pelvis transvaginal [facility] Work Phone: Comment on above: Expected: 10/24/2024 , Expires: 10/24/2025 Start: 09-16-2024 End: 09-16-2024 Patient encounter procedure 09/16/2024 3:00 PM EST Office Visit [facility] [address] [place] [address] Mik Borrego DO [address] [place] [address] Arrived [facility] Comment on above: Arrived Start: 06-23-2024 COVID-19 Vaccine ( season) COVID-19 Vaccine ( season) [facility] Start: 06-23-2024 Influenza vaccination [facility] Start: 06-01-2019 DTaP,Tdap and Td Vaccines (2 - Td or Tdap) DTaP,Tdap and Td Vaccines (2 - Td or Tdap) [facility] Start: 2009 Screening for malign ant neoplasm of cervix Pap Smear [facility] Start: 2007 DTaP,Tdap and Td Vaccines (1 - Tdap) DTaP,Tdap and Td Vaccines (1 - Tdap) [facility] Start: 2006 Adult BMI Follow Up Plan Adult BMI F ollow Up Plan [facility] Start: 2006 Adult BMI Screening Adult BMI Screen ing [facility] Start: 2000 Depression Screening Depression Scre ening [facility] Start: 2000 Tobacco Screening Tobacco Screening [facility] Bacteria identified in Urine by Culture Urine culture Microbiology Routine Missed menses Ordered: 10/24/2024 [facility] Comment on above: Ordered: 10/24/2024 End: 01-21-2026 CBC panel - Blood by Automated count CBC without diff Lab Routine Chronic hypertension affecting 1 Occurrences starting 01/21/2025 until 01/21/2026 [facility] Comment on above: 1 Occurrences starti ng 01/21/2025 until 01/21/2026 CBC W Auto Different ial panel - Blood CBC and differential Lab Routine Missed menses , unspecified gestational age Ordered: 10/24/2024 [facility] Comment on above: Ordered: 10/24/2024 CBC W Auto Different ial panel - Blood CBC and differential Lab Routine Second trimester Elevated blood pressure affecting , antepartum induced hypertension, antepartum Antepartum multigravida of advanced maternal age Ordered: 01/27/2025 [facility] Comment on above: Ordered: 01/27/2025 CHLAMYDIA TRACHOMATI S (GENITO/STI) CHLAMYDIA TRACHOMATIS (GENITO/STI) Lab Routine STD exposure Vaginal discharge Ordered: 12/23/2024 [facility] Comment on above: Ordered: 12/23/2024 End: 01-21-2026 Comprehensive metabolic 2000 panel - Serum or Plasma Comprehensive metabolic panel Lab Routine Chronic hypertension affecting 1 Occurrences starting 01/21/2025 until 01/21/2026 [facility] Comment on above: 1 Occurrences starti ng 01/21/2025 until 01/21/2026 Cytology Cervical or vaginal smear or scraping study Pap Smear Pathology and Cytology Routine Well woman exam with routine gynecological exam Ordered: 09/16/2024 [facility] Work Phone: Comment on above: Ordered: 09/16/2024 End: 01-21-2026 ECG 12 lead ECG 12 lead ECG Routine Chronic hypertension affecting 1 Occurrences starting 01/21/2025 until 01/21/2026 [facility] Comment on above: 1 Occurrences starti ng 01/21/2025 until 01/21/2026 Hemoglobin A1c/Hemoglobin.total in Blood Hemoglobin A1c Lab Routine Missed menses , unspecified gestational age Ordered: 10/24/2024 [facility] Comment on above: Ordered: 10/24/2024 Hepatitis B virus surface Ag [Presence] in Serum or Plasma by Immunoassay Hepatitis B surface antigen Lab Routine Missed menses , unspecified gestational age Ordered: 10/24/2024 [facility] Comment on above: Ordered: 10/24/2024 Hepatitis C virus Ab [Presence] in Serum or Plasma by Immunoassay Hepatitis C antibody Lab Routine Missed menses , unspecified gestational age Ordered: 10/24/2024 [facility] Comment on above: Ordered: 10/24/2024 HIV-1/HIV-2 antigen/antibody combination immunoassay HIV-1 and HIV-2 antibodies Lab Routine Missed menses , unspecified gestational age Ordered: 10/24/2024 [facility] Comment on above: Ordered: 10/24/2024 Human papilloma viru s DNA [Presence] in Unspecified specimen by Probe with amplification HPV DNA probe, amplified Microbiology Routine Well woman exam with routine gynecological exam Ordered: 09/16/2024 [facility] Comment on above: Ordered: 09/16/2024 End: 01-21-2026 Natriuretic peptide B [Mass/volume] in Blood B-type natriuretic peptide Lab Routine Chronic hypertension affecting 1 Occurrences starting 01/21/2025 until 01/21/2026 [employer] Phone: Comment on above: 1 Occurrences starti ng 01/21/2025 until 01/21/2026 Neisseria gonorrhoea e DNA [Presence] in Unspecified specimen by DANA with probe detection Neisseria gonorrhea DNA probe, direct Lab Routine STD exposure Vaginal discharge Ordered: 12/23/2024 [facility] Comment on above: Ordered: 12/23/2024 End: 01-21-2026 Protein creat ratio Protein creat ratio Lab Routine Chronic hypertension affecting 1 Occurrences starting 01/21/2025 until 01/21/2026 [facility] Comment on above: 1 Occurrences starti ng 01/21/2025 until 01/21/2026 Protein, urine, 24 hour Protein, urine, 24 hour Lab Routine Second trimester Elevated blood pressure affecting , antepartum induced hypertension, antepartum Antepartum multigravida of advanced maternal age Ordered: 01/27/2025 [facility] Comment on above: Ordered: 01/27/2025 Reagin Ab [Presence] in Serum by RPR RPR Lab Routine Missed menses , unspecified gestational age Ordered: 10/24/2024 [facility] Comment on above: Ordered: 10/24/2024 Rubella antibody, IgG Rubella an tibody, IgG Lab Routine Missed menses , unspecified gestational age Ordered: 10/24/2024 [facility] Comment on above: Ordered: 10/24/2024 SURESWAB(R) ADVANCED VAGINITIS PLUS, TMA SURESWAB(R) ADVANCED VAGINITIS PLUS, TMA Pathology and Cytology Routine STD exposure Vaginal discharge Ordered: 12/23/2024 [facility] Work Phone: Comment on above: Ordered: 12/23/2024 Immunizations Immunization Date Immunization Notes Care Provider Radha neves 08-05-2021 COVID-19, mRNA, LNP- S, PF, 30 mcg/0.3 mL dose Helene SPETTEL [facility] 06-25-2021 COVID-19, mRNA, LNP- S, PF, 30 mcg/0.3 mL dose Helene SPETTEL [facility] 02-08-2019 meningococcal ACWY vaccine, unspecified formulation Helene HAMILTON [facility] 12-14-2009 hepatitis B vaccine, adult dosage Helene GIPSONEL [facility] 07-03-2009 hepatitis B vaccine, adult dosage Helene YOUNGBLOODTTEL [facility] 06-01-2009 hepatitis B vaccine, adult dosage Helene YOUNGBLOODTTEL [facility] 06-01-2009 tetanus toxoid, redu carolina diphtheria toxoid, and acellular pertussis vaccine, adsorbed Helene YOUNGBLOODGERABERNARDINO [facility] 05-16-2001 measles, mumps and rubella virus vaccine Helene SPEGIANNI [facility] NEGATED: Highlighted row has not occurred!03-08-2022 influenza virus vaccine, unspecified formulation Helene HAMILTON [facility] NEGATED: Highlighted row has not occurred!03-16-2021 SARS-CoV-2 (COVID-19) mRNA-1273 vaccine Helene HAMILTON [facility] NEGATED: Highlighted row has not occurred!10-20-2020 influenza virus vaccine, unspecified formulation Helene HAMILTON [facility] Payers Date Payer Category Payer Unknown [id number] 2022 [facility] [id number] 2022 [facility] Managed Care - O ANTHEM [id number] 2022 Unknown [id number] 1988 Unknown [id number] 2.16.840.1.335301.3.579. 2.727 1988 Unknown [id number] 2.16.840.1.628019.3.579. 2.727 1988 Unknown [id number] 2.16.840.1.669293.3.579. 2.727 1988 Unknown [id number] 2.16.840.1.798453.3.579. 2.1286 1988 Unknown [id number] 2.16.840.1.239983.3.579. 2.1286 1988 Unknown [id number] 2.16.840.1.605729.3.579. 2.1286 1988 Unknown [id number] 2.16.840.1.947493.3.579. 2.1286 1988 Unknown [id number] 2.16.840.1.169067.3.579. 2.9 1988 Unknown [id number] 2.16.840.1.507228.3.579. 2.1259 1988 Unknown [id number] 2.16.840.1.812212.3.579. 2.9 1988 Unknown [id number] 2.16.840.1.789878.3.579. 2.1259 1988 Unknown [id number] 2.16.840.1.623004.3.579. 2.1259 1988 Unknown [id number] 2.16.840.1.345605.3.579. 2.9 1988 Unknown [id number] 2.16.840.1.184833.3.579. 2.9 1988 Unknown [id number] 2.16.840.1.941681.3.579. 2.9 1988 Unknown [id number] 2.16.840.1.003994.3.579. 2.9 1988 Unknown [id number] 2.16.840.1.767785.3.579. 2.9 1988 Unknown [id number] 2.16.840.1.384496.3.579. 2.9 1988 Unknown [id number] 2.16.840.1.525651.3.579. 2.9 1988 Unknown [id number] 2.16.840.1.082826.3.579. 2.1259 Social History Date Type Detail Facility Start: 03-08-2022 End: 02-16-2025 Tobacco smoking status Never smoked tobacco (finding) [facility] Start: 01-21-2025 Sex Assigned At Female F [facility] Start: 12-06-2024 Tobacco smoking stat [facility] Tobacco smoking consumption unknown [facility] Start: 1990 Sex assigned at Not on file [facility] Start: 09-19-2024 [facility] Start: 01-10-2019 End: 12-05-2024 Sex Female (finding) [facility] Start: 01-21-2025 Tobacco smoking stat [facility] Ex-smoker [facility] History of tobacco use Current smoker [facility] History of tobacco use Cigarette Smoker [facility] Start: 01-21-2025 Tobacco use and exposure Smokeless tobacco non-user [facility] Start: 01-21-2025 Alcoholic beverage intake Ex-drinker (finding) [facility] Start: 01-21-2025 History of Social function [facility] Within the past 12 months we worried whether our food would run out before we got money to buy more. Never True [facility] Sexual Orientation [facility] Medical Equipment Procedure Code Equipment Code Equipment Origin al Text Equipment Identifier Dates 1 strip by other route in the morning and 1 strip at noon and 1 strip in the evening and 1 strip before bedtime. [id number] Start: 01-21-2025 Fasting and 1hr postprandial [id number] Start: 01-21-2025 1 strip by In Vi tro route Daily Use in the morning prior to breakfast, 1 hour after each meal for a total of 4times daily. [id number] Start: 01-27-2025 End: 02-26-2025 1 each by In Vit ro route Daily Use to check FSBS four times daily [id number] Start: 01-27-2025 End: 02-26-2025 Use four times d aily to check FSBS as directed. [id number] Start: 01-29-2025 End: 01-29-2026 1 each by In Vit ro route Daily Use to check FSBS four times daily [id number] Start: 01-29-2025 End: 02-28-2025 Use as instructed [id number] Start: 04-08-2025 Functional Status Date Assessment Result Facility 05-11-2022 Functional Status N/A [facility] Clinical Notes 03-08-2022 to 04-21-2025 Larisa Chowdary [...] Diagnosis Date Noted Vaginal bleeding affecting early ([facility]) 11/06/2024 headache, antepartum ([facility]) 12/25/2024 Elevated blood pressure affecting , antepartum ([facility]) 01/16/2025 Resolved Ambulatory Problems Diagnosis Date Noted No Resolved Ambulatory Problems Past Medical History: Diagnosis Date ADHD (attention deficit hyperactivity disorder) Anxiety Gestational diabetes ([facility]) Hypertension Insulin resistance PCOS (polycystic ovarian syndrome) HISTORY PAST MEDICAL HISTORY SOCIAL HISTORY Past Medical History: Diagnosis Date ADHD (attention deficit hyperactivity disorder) Anxiety Gestational diabetes ([facility]) Hypertension Insulin resistance PCOS (polycystic [...] ASSESSMENT & PLAN ICD-10-CM 1. Third trimester ([facility]) Z34.93 2. 32 weeks gestation of ([facility]) Z3A.32 Return OB: Patient presents [...] Borrego DO documented in this encounter [facility] 04-14-2025 History of Presen t illness Narrative [...] Diagnosis Date Noted Vaginal bleeding affecting early ([facility]) 11/06/2024 headache, antepartum ([facility]) 12/25/2024 Elevated blood pressure affecting , antepartum ([facility]) 01/16/2025 Resolved Ambulatory Problems Diagnosis Date Noted No Resolved Ambulatory Problems Past Medical History: Diagnosis Date ADHD (attention deficit hyperactivity disorder) Anxiety Gestational diabetes ([facility]) Hypertension Insulin resistance PCOS (polycystic ovarian syndrome) HISTORY PAST MEDICAL HISTORY SOCIAL HISTORY Past Medical History: Diagnosis Date ADHD (attention deficit hyperactivity disorder) Anxiety Gestational diabetes ([facility]) Hypertension Insulin resistance PCOS (polycystic [...] nursing note reviewed. Exam conducted with a automotive refinish technician present. Vitals: Estimated body mass index is 33.8 kg/m as calculated from the following: Height as of 05/06/24: 5' 7 . Weight as of this encounter: 215 lb 12.8 oz. BP: 126/82 Patient's last menstrual period was 08/23/2024. ASSESSMENT & PLAN ICD-10-CM 1. Third trimester ([facility]) Z34.93 POCT urinalysis dipstick manually resulted 2. 31 weeks gestation of ([facility]) Z3A.31 POCT urinalysis dipstick manually resulted Return [...] Borrego DO documented in this encounter [facility] 04-08-2025 History of Presen t illness Narrative [...] Diagnosis Date Noted Vaginal bleeding affecting early ([facility]) 11/06/2024 headache, antepartum ([facility]) 12/25/2024 Elevated blood pressure affecting , antepartum ([facility]) 01/16/2025 Resolved Ambulatory Problems Diagnosis Date Noted No Resolved Ambulatory Problems Past Medical History: Diagnosis Date ADHD (attention deficit hyperactivity disorder) Anxiety Gestational diabetes ([facility]) Hypertension Insulin resistance PCOS (polycystic ovarian syndrome) HISTORY PAST MEDICAL HISTORY SOCIAL HISTORY Past Medical History: Diagnosis Date ADHD (attention deficit hyperactivity disorder) Anxiety Gestational diabetes ([facility]) Hypertension Insulin resistance PCOS (polycystic [...] nursing note reviewed. Exam conducted with a automotive refinish technician present. Vitals: Estimated body mass index is 33.36 kg/m as calculated from the following: Height as of 24: 5' 7 . Weight as of this encounter: 213 lb. BP: 122/78 Patient's last menstrual period was 08/23/2024. ASSESSMENT & PLAN ICD-10-CM 1. Third trimester ([facility]) Z34.93 POCT urinalysis dipstick manually resulted 2. 30 weeks gestation of ([facility]) Z3A.30 3. Gestational diabetes mellitus (GDM), antepartum, gestational diabetes method of control unspecified ([facility]) O24.419 insulin NPH, Isophane, (HumuLIN N,NovoLIN N) [...] Borrego DO documented in this encounter [facility] 03-24-2025 History of Presen t illness Narrative [...] Borrego DO documented in this encounter [facility] 02-24-2025 History of Presen t illness Narrative [...] by LISA Lomeli documented in this encounter [facility] 02-17-2025 Note Echocardiology Procedure Exam Date/Time Accession # Ordering Echo Transthoracic 02/17/2025 13:32 EDT [id number] Mik BORREGO DO Complete CPT code 57012 65597 Reason for Exam (Echo Transthoracic Complete) Z34.92, O16.9, O13.9, O09.[address] [address] Adult Echocardiogram Report Name: JULISSA WEEMS Study Date: 02/17/2025 12:56 PM BP: 131/88 mmHg Patient Location: [facility] Ambulatory(s) [facility] HR: 84 : 1990 Gender: Female Height: 67 in Age: 34 yrs Ethnicity: [facility] Weight: 211 lb Reason For Study: Z34.92, O16.9, O13.9, O09.529 BSA: 2.1 m2 History: No cardiac history per patient Ordering Physician: ELMO^Mik^R Referring Physician: Mik BORREGO Performed By: Christina Dubois MANINDER Interpretation Summary Left ventricular systolic function is [...] QLAB ED Mass (HM): 135.0 grams LAEF (): 79.0 % BSA (HM): 2.1 m2 FANY (): 23.0 ml/m2 LAVmax (HM): 47.0 ml LAVmin (HM): 10.0 ml Pat Height (HM): 170.0 cm Pat Weight (HM): 95.7 kg FINAL REPORT Dictated: 02/17/2025 12:56 pm Shahram Tao MD Signed (Electronic Signature): 02/17/2025 2:11 pm Signed by: Shahram Tao MD Transcribed by: MEGAN Technologist: [facility] 02-04-2025 Miscellaneous Notes Spoke with patient to reschedule DBE, she took @ [place] so we will not follow her blood sugars. documented in this encounter [facility] 02-04-2025 Telephone encounter Note Spoke with patient to reschedule DBE, she took @ [place] so we will not follow her blood sugars. [facility] 01-27-2025 History of Presen t illness Narrative [...] nursing note reviewed. Exam conducted with a automotive refinish technician present. Vitals: Estimated body mass index is [...] Glucose Test) strip Blood Glucose Monitoring Suppl (D-Monitor My Meds Glucometer) w/Device kit 6. Elevated glucose tolerance test R73.09 Lancets Ultra Thin misc Alcohol Swabs (Alcohol Prep Pad) 70 % pads Glucose Blood (Blood Glucose Test) strip Blood Glucose Monitoring Suppl (D-Monitor My Meds Glucometer) w/Device kit Return OB: Patient presents [...] week with increase from 30 mg per [facility]. She reports elevation in B/P at home and feeling of tachycardia. B/P here today 136/80. She will continue to monitor B/P at home and send to us. She reports not measuring her glucose at home and a glucose monitor and test strips are sent in to the pharmacy today. No lower extremity edema today and no protien in urine today. [facility] recommend baseline EKG and BNP, CBC, CMP, uric acid and lactate. 24 hour urine protein and cardiac echo orders will be given today. 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 I have reviewed the pertinent available patient [...] previously recommended threshold of 160/110. Reference: PMID: [id number]. Blood pressures do increase as progresses and [...] preeclampsia prevention as is recommended by the [place] [employer]ne[employer] Committee Opinion No. 743. [...] times daily, fasting and 1 hour postprandials [facility] nutrition and diabetes counseling recommend obtaining baseline [...] echocardiogram, attempt completion in 4-6 weeks through [facility] serial growth ultrasounds every 4 weeks following completion of level 2 anatomy US, through [facility] Recommend twice weekly testing starting at 32 [...] developing diabetes later on. Follow up in [facility] in 2 weeks DISPOSITION: At this point the patient is in complete care of her parts identifier. Patient does have ultrasound and office visit [...] procedures Referring and communicating with other health care management associate (not separately reported) Documenting clinical information in the electronic or other health record Independently interpreting results (not separately reported) and communicating results to the patient/family/caregiver Bruce Perez MD Maternal- Medicine [facility] [address] 1st [place] [address] [facility], the CDC, and other organizations representing maternal and public health professionals recommend that , , and lactating people and those considering receive the COVID-19 vaccination. Vaccination is the best method to reduce maternal and complications of SARS-CoV-2 infection. This document was created with [employer] technology. Though I make every effort to review the dictation as it is transcribed, on occasion the spoken word can be misinterpreted by the technology leading to inappropriate words, phrases, or sentences. This note is addressed to the requesting provider as a consultation for clinical guidance. Specific medical abbreviations are occasionally used and those are generally approved by the [place]?Board of?Obstetrics and?Gynecology?as well as?[place] s abbreviations. The above plan of care was based solely on the diagnoses for which a consultation was requested. ?More frequent testing may be indicated based on her other medical/obstetrical conditions. The management of other or medical conditions is beyond the scope of requested consultation and will continue to be followed by the primary parts identifier or primary care provider. Note to patient: The 21st Century Cures Act makes medical notes like [...] No Have you been seen here at [facility] in a previous ? No Recent ER visits or hospitalizations? No Bring blood sugar log or meter with you today? (Please bring them with you for every visit at [facility]) N/A Flu vaccine (Aug-December)? Any concerns that you would like me to mention to the provider today? No documented in this encounter [facility] 01-17-2025 Miscellaneous Notes Voicemail left on nurse line requesting labs and any genetic testing results be faxed to our office. documented in this encounter [facility] 01-17-2025 Telephone encounter Note Voicemail left on nurse line requesting labs and any genetic testing results be faxed to our office. [facility] 12-23-2024 History of Presen t illness [...] of: LISA Lomeli documented in this encounter [facility] 11-25-2024 History of Presen t illness Narrative [...] or undercooked meat, and stay away [facility]. Patient has been consulted regarding any further do's and don'ts of . Patient voiced understanding and all questions and concerns were answered. Patient will be sent to [facility] for advanced maternal age and has decided to have US with mfm rather than unity testing No orders of the defined types were placed in this encounter. Follow Up: Patient is to return in 4 weeks for routine OB appointment. Documented by Juanis Esparza MA on behalf of: Mik Borrego DO documented in this encounter [facility] 10-24-2024 History of Presen t illness Narrative [...] Diagnosis Date ADHD (attention deficit hyperactivity disorder) ([facility]) Anxiety Insulin resistance PCOS (polycystic ovarian [...] calculated from the following: Height as of 24: 5' 7 . Weight as of this [...] or undercooked meat, and stay away from [facility]. Patient has also been advised to not [...] Chowdary MA documented in this encounter [facility] 09-16-2024 History of Presen t illness Narrative [...] nursing note reviewed. Exam conducted with a automotive refinish technician present. Vitals: Estimated body mass index is [...] Borrego DO documented in this encounter [facility] 10-03-2022 Hospital Discharg e instructions Patient Education [...] water added (diluted fruit juice). Eat bland, jdjn-zj-daboxi foods in small amounts as you are able. These foods include bananas, applesauce, rice, lean meats, toast, and crackers. Avoid fluids that contain a lot of sugar or caffeine, such as energy drinks, sports drinks, and soda. Avoid alcohol. Avoid spicy or fatty foods. General instructions Take srrg-eib-gpmwjrp and prescription medicines only as told by your health care provider. Drink enough fluid to keep your urine pale yellow. Wash your hands often using soap and water. If soap and water are not available, use hand fitness management director. Make sure that all people in your [...] eating and drinking to prevent dehydration. Take zygr-lya-jddekek and prescription medicines only as told by [...] 10/09/2006 Document Revised: 01/31/2020 Document Reviewed: 03/19/2019 [employer] Patient Education 2020 [employer]. 10/03/2022 13:10:32 Acute Pain, Adult Acute Pain, [...] Follow these instructions at home: Medicines Take sykl-ise-htfxtkp and prescription medicines only as told by [...] pain is severe. ?Do not take other zpfa-wao-xudgpxu pain medicines in addition to prescription pain [...] grains, and fresh fruits and vegetables. ?Take nujp-rps-ihykjru or prescription medicines. ?Limit foods that are [...] or you are no longer ill. Take gfhz-dfa-qmgjjrw and prescription medicines only as told by [...] 10/23/2016 Document Revised: 02/24/2020 Document Reviewed: 02/24/2020 [employer] Patient Education 2019 [employer]. 10/03/2022 13:10:29 Dysmenorrhea Dysmenorrhea Dysmenorrhea refers to [...] to help relieve pain. General instructions Take jqtt-xzt-eihuofs and prescription medicines only as told by [...] 10/09/2006 Document Revised: 09/21/2018 Document Reviewed: 11/11/2017 [employer] Patient Education 2020 [employer]. 10/03/2022 13:10:26 Polycystic Ovarian Syndrome Polycystic Ovarian [...] produces. Follow these instructions at home: Take ifxz-rtj-advubga and prescription medicines only as told by [...] 02/02/2006 Document Revised: 09/21/2018 Document Reviewed: 03/26/2017 [employer] Patient Education 2020 [employer]. 10/03/2022 13:10:25 Ovarian Cyst Ovarian Cyst An [...] cyst. Follow these instructions at home: Take iqgc-hll-xxommfp and prescription medicines only as told by [...] 10/09/2006 Document Revised: 01/07/2019 Document Reviewed: 03/12/2017 [employer] Patient Education 2020 [employer]. Follow Up Care 10/03/2022 08:07:39 With:DONA DELAROSA CNP Address: [facility] [address] [place] [address] When: Unknown [facility] 05-12-2022 Hospital Discharg e instructions Patient Education [...] Follow these instructions at home: Medicines Take giar-zce-tmnovcz and prescription medicines only as told by [...] to keep your urine pale yellow. ?Take fsfb-eoy-ydflarc or prescription medicines. ?Eat foods that are [...] and water are not available, use hand fitness management director. ?Change your dressing as told by your [...] 10/09/2006 Document Revised: 04/11/2019 Document Reviewed: 04/11/2019 [employer] Patient Education 2020 [employer]. 05/12/2022 14:04:00 Laparoscopic Appendectomy, Adult Laparoscopic Appendectomy, [...] including vitamins, herbs, eye drops, creams, and xjtq-scc-eeqtvwf medicines. Use of steroids (by mouth or [...] provider tells you to take them. Taking yidx-ijh-gvuyztw medicines, vitamins, herbs, and supplements. General instructions [...] 05/23/2005 Document Revised: 04/11/2019 Document Reviewed: 04/11/2019 [employer] Patient Education 2020 [employer]. 05/12/2022 14:03:59 Appendicitis, Adult Appendicitis, Adult Appendicitis [...] to care for your incision. Medicines Take vnrq-lfi-cridutu and prescription medicines only as told by [...] to keep your urine pale yellow. ?Take ymqy-wgo-fyeqlcq or prescription medicines. ?Eat foods that are [...] 10/09/2006 Document Revised: 03/27/2019 Document Reviewed: 03/27/2019 [employer] Patient Education 2020 [employer]. Follow Up Care 05/11/2022 22:41:15 With:Raman Russell DO Address: [address] [place] [phone] When: Unknown Comments:Call for followup appointment [facility] 05-12-2022 Evaluation + Plan note Extrac [...] Adult Author:Wiliam Diaz Jr., DO Date:05/12/22 Plan [place] [employer] Anesthesiologists (ASA) physical status classification: [...] Date:06/14/2022 10:40:00 AM Scheduled Provider:Helene HAMILTON CNP Location:[facility] [place] Appointment Type:FM Open Diagnostic Tests Pending * Basic Metabolic Panel 05/13/22 * CBC w/ Auto Diff 05/13/22 * PT & PTT 05/13/22 [facility]05-17-2022 Hospital Discharge instructions Patient Education 03/08/2022 [...] height. This can be done either in [place] ([place] or metric measurements. Note that charts are available to help you find your BMI quickly and easily without having to do these calculations yourself. To calculate your BMI in [place] ([place] measurements, your health care provider will: [...] medical problems. BMI can be measured using [place] measurements or metric measurements. To interpret your [...] 06/20/2005 Document Revised: 09/21/2018 Document Reviewed: 08/22/2018 [employer] Patient Education 2020 [employer]. 03/08/2022 12:46:57 Health Maintenance, Female Health Maintenance, [...] 04/23/2012 Document Revised: 10/02/2019 Document Reviewed: 10/02/2019 [employer] Patient Education 2020 [employer]. Follow Up Care 02/21/2022 15:20:41 With:Helene HAMILTON CNP Address: [address] [place], [place] [id number] When:Within 1 Month(s) [facility] Evaluation + Plan note Future Appointments Appointment Date:04/05/2022 11:20:00 AM Scheduled Provider:Helene HAMILTON CNP Location:[facility] Appointment Type: Open [facility] Evaluation + Plan note Future Appointments Appointment Date:02/17/2025 01:00:00 PM Scheduled Provider: Location:[facility] Appointment Type:CV Echo (FT) Future Scheduled Tests Radiology* Echo Transthoracic Complete 02/17/25 [facility] Evaluation note* Diagnosis Well woman exam [...] weeks gestation of [facility] Chronic hypertension affecting - Primary Advanced maternal age in multigravida, second trimester Prediabetes in mother during Gestational diabetes mellitus (GDM), antepartum, gestational diabetes method of control unspecified [facility] Diagnosis 20 weeks gestation [...] Narrative No data available for this section [facility] Hospital Discharge instructions No data available for this section [facility] InstructionsNot on filedocumented in [...] note No data available for this section [facility] Summary Purpose Family History No Family [...] section and content) DATE CREATED AUTHOR 05/26/2020 [facility] DATE CREATED AUTHOR AUTHOR'S ORGANIZ ATION 01/28/2025 [facility] DATE CREATED AUTHOR AUTHOR'S ORGANIZ ATION 02/06/2025 [facility] DATE CREATED AUTHOR AUTHOR'S ORGANIZ ATION 02/26/2025 [facility] DATE CREATED AUTHOR AUTHOR'S ORGANIZ ATION 04/01/2025 [facility] DATE CREATED AUTHOR AUTHOR'S ORGANIZ ATION 04/22/2025 [facility] Care Team (unrecognized sect ion and content) Personnel Name: Helene HAMILTON CNP Address: [address] [place] [address] Personnel Name: Helene HAMILTON CNP Address: [facility] [place] [address] Personnel Name: Helene HAMILTON CNP Address: Address: [address] [place] [address] [address] Personnel Name: Helene HAMILTON CNP Address: Address: [address] [place] [address] Personnel Name: Helene HAMILTON CNP Address: Address: [address] [place] [address] Personnel Name: NONE, XXXX Address: [facility] Personnel Name: NONE, XXXX Address: [facility] Personnel Name: NONE, XXXX Address: [facility] Reason for Visit (unrecogniz ed section and [...] BE BASED ON THE PRIMARY CLINICAL RECORDS. [employer] [facility]. provides no warranty or guarantee of the accuracy or completeness of information in this document.
[2025-04-25 14:06] VITALS: BP 142/78; PULSE 94
[2025-04-25 14:26] VITALS: BP 135/82; PULSE 86
== END 2025-04-25 14:28 | disposition home or self-care (01) ==
LOC: FBCO 14:01 → FBC 14:02
PROVIDERS: Visit Provider Obstetrics & Gynecology
DX: O24.419 Gestational diabetes mellitus in pregnancy, unspecified control (principal)
CPT/HCPCS: 59025

== ENCOUNTER 2025-04-29 14:52 | Outpatient (OUT) | payer BC, SELFPAY ==
--- OUTSIDE RECORDS SUMMARY | 2013-09-18 06:00 | XMS_ITS | Continuity of Care Document ---
Author Organization [facility] Address [address] [place] [address], [address] [place] [address] Phone Care Team Providers Care Cleaning Team Member Name Role Phone Eva Arias MD Unavailable Unavailable Allergies, Adverse Reactions, Alerts Substance Reaction Status Criticality No Known allergies Medications Medication Instructions Dosage Effective Dates (start - stop) Status Comments NuvaRing 0.12 mg -0.015 mg/24 hr vaginal insert 1 vaginal ring by vaginal route every month leave in place for 3 weeks, remove for 1 week 1.00 vaginal ring - Active Procedures Procedure Date Office Visit - MOBILE WEB APPLICATION DEVELOPER Extended Advance Directives Directive Yes / No Effective Date File Name No Information Encounters Encounter Description Practice Location Reason(s) For Visit Diagnoses Date Provider Providers Copied on Encounter Office Visit - MOBILE WEB APPLICATION DEVELOPER Extended [facility], [address] [place] [address], [address], [place], [place], [id number], tel:[phone] [facility] head of loss prevention consult (chief complaint) Family planningAcne 3 Hugo Velasquez. [address] [place] [address], [address], [place], [id number]. tel:[phone] Referring Provider: Eva Arias MD, [address] [place] [address] [address], [place], [address]. tel:[phone] Family History Family Member Type Diagnosis Age At Onset No Information Payers Payer name Insurance type Covered libertarian ID Authoriza tidon(s) Prime / Durga CI [id number] Social History Type Description Quantity Date Captured Comments Alcohol Use Details Unknown Caffeine Use Details Unknown Tobacco Use Status No Information Smoking Status No Information Sex Female Vital Signs Date / Time: Height Weight BMI Pulse Rate Blood Pressure Temperature Respiratory Rate Body Surface Area Head Circumference Head Circ. Percentile Wt./Junior. Percentile BMI percentile Pulse Ox Inhaled Ox 10:56 AM 67.00 in 73.028 kg (161.00 lbs) 25.2 2 kg/m eter (2) 60 /min 130/88 mm[Hg] 12 /min 1.86 meter(2) Chief Complaint And Reason For Visit From encounter dated '09/18/2013 10:00'. head of loss prevention consult (chief complaint). Description: The symptoms are reported as being mild. The symptoms occur constantly. Here for consultation on nuvaring. Has taken OCPs in the past without any problems but has trouble remembering to take it daily. Denies smoking or hx of clots. Denies possibility of . Reason For Referral Reason For Referral No Information History Of Present Illness Encounter Date Complaint History Of Prese nt Illness head of loss prevention consult The symptoms are reported as being mild. The symptoms occur constantly. Here for consultation on nuvaring. Has taken OCPs in the past without any problems but has trouble remembering to take it daily. Denies smoking or hx of clots. Denies possibility of . Functional Status Date Functional Assessmen t No Information Instructions Date Instruction Additional Infor mation No Information Assessments Type Assessment Date No Information Mental Status Date Cognitive Assessment Orientation - [place] ed to time, place, person, situation. Patient Care Teams Name Effective Dates (start - stop) Status Members No Information
--- OUTSIDE RECORDS SUMMARY | 2024-05-20 04:15 | XMS_ITS ---
Author Organization [facility] Address [address] [facility] [place] [address] Care Team Providers Care Mold Presser Name Role Phone Olimpia Renee Primary Care Provider Steven Shane Unavailable [phone] REASON FOR VISIT MED RECHECK-AC Encounters Encounter Location Date Provider Diagnosis [facility] [address] [place] [address] 2023 Steven Shane Plan Of Treatment No Information Progress Notes * SEDALEDOB:1990 (34 yo F)Acc No.[id number]:05/20/2024 Behavioral Health Patient: LE ALCALA Provider: LARRY Sanders :1990 A ge:33 Y S ex:Female Date:05/20/2024 Address:[address] [place], [place] [phone] Pcp:Olimpia Renee Subjective: * Chief Complaints: * 1 . MED RECHECK-AC. * Medical History: Objective: * Vitals: Assessment: Plan: * Treatment: * Images: * Electronic signature of LARRY Linder on 04/29/2025 at 02:53 PM EDT Sign off status: Pending * Provider: LARRY Sanders Date: 0 05/20/2024 Generated for Printi ng/Faxing/eTransmitting on: 04/29/2025 02:53 PM EDT
--- OUTSIDE RECORDS SUMMARY | 2024-06-04 10:45 | XMS_ITS ---
Author Organization [facility] es Address [address] [place] [address] Care Team Providers Care Aemt Name Role Phone Olimpia Renee Primary Care Provider Diane Perdomo [phone] REASON FOR VISIT DISCUSS ASTHMA FLARE-AC Encounters Encounter Location Date Provider Diagnosis [address] [place] [address] 06/04/2024 Diane Perdomo Plan Of Treatment No Information Progress Notes * LE STACKDOB:1990 (34 yo F)Acc No.[id number]:06/04/2024 Progress Notes Patient: LE ALCALA Appointment Provider: Jose Perdomo NP :1990 A ge:33 Y S ex:Female Date:06/04/2024 Address:[address] [place], [place] [phone] Pcp:Olimpia Renee Subjective: * Chief Complaints: * 1 . DISCUSS ASTHMA FLARE-AC. * Medical History: Objective: * Vitals: Assessment: Plan: * Treatment: * Images: * Electronic signature of Ryan Perdomo CNP on 04/29/2025 at 09:27 AM EDT Sign off status: Pending * Appointment Provider: Jose Perdomo NP Date: 06/04/2024 Generated for Printi ng/Fachristinag/eTransmitting on: 04/29/2025 09:27 AM EDT
--- OUTSIDE RECORDS SUMMARY | 2025-04-21 15:20 | XMS_ITS | Encounter Summary ---
Author Organization [facility] Address [address] [place] [address] Care Team Providers Care Leasing Manager Name Role Phone Unavailable Primary Care Provider Unavailabl e Reason for Visit * Reason Comments Routine Visit Encounter Details Date Type Department Care Team ([facility] Contact Info) Description 04/21/2025 3:20 PM EDT [facility]ine [facility] [address] [place] [phone] Mik Borrego [address] [place] [address] Third trimester ([facility]); 32 weeks gestation of ([facility]); Insulin controlled gestational diabetes mellitus (GDM) in third trimester ([facility]); Multigravida of advanced maternal age in third trimester ([facility]); Hypertension, unspecified type Social History Tobacco Use Types Packs/Day Years Used Date Smoking Tobacco: Never Assessed Estimated Date of Delivery Comme nts Yes 06/12/2025 Based on Ultraso und Sex and Gender Information Value Date Recorded Sex Assigned at Not on file Legal Sex Female 6:40 PM EDT Gender Identity Not on file Sexual Orientation Not on file documented as of this encounter Last Filed Vital Signs Vital Sign Reading Time Taken Comments Blood Pressure 124/80 04/21/2025 3:39 PM EDT Pulse - - Temperature - - Respiratory Rate - - Oxygen Saturation - - Inhaled Oxygen Concentration - - Weight 98 kg (216 lb) 04/21/2025 3:39 PM EDT Height - - Body Mass Index 33.83 05/06/2024 3:23 PM EDT documented in this encounter Progress Notes * Larisa Chowdary MA - 04/21/2025 3:20 PM EDT Reason for Appointment: Patient ID: Julissa Weems is a 34 y.o. female who presents for Routine Visit Patient presents today for Return OB appointment. MEDICATIONS Current Outpatient Medications Medication Instructions albuterol HFA 90 mcg/act inhaler Alcohol Swabs (Alcohol Prep Pad) 70 % pads 1 Pad, Topical, Daily, Use four times daily to check FSBS. Alcohol Swabs (Alcohol Prep Pad) 70 % pads 1 Pad, Topical, Daily, Use four times daily to check FSBS. Blood Glucose Monitoring Suppl (D-Care Glucometer) w/Device kit 1 kit, Does not apply, Daily, Use four times daily to check FSBS. In the morning prior to breakfast & 1 hour after each meal for a total of 4times daily. Blood Glucose Monitoring Suppl (ReliOn True Met Air Gluc Meter) w/Device kit 1 kit, Does not apply,4 times daily cetirizine (ZyrTEC) 10 MG tablet Take by mouth glucose blood (RELION GLUCOSE TEST STRIPS) test strip Use four times daily to check FSBS as directed. insulin NPH (Isophane) (HUMULIN N,NOVOLIN N) 5 Units, Subcutaneous, 2 times daily before meals insulin regular (HumuLIN R,NovoLIN R) 100 UNIT/ML injection 5 units sub q in the am and 5 units subq in the evening insulin syringe 29G X 1/2 0.5 mL misc Use as instructed MAGnesium-Oxide 400 mg, Oral, Daily NIFEdipine XL (PROCARDIA XL) 60 mg, Oral, Daily, Do not crush, chew, or split. ALLERGIES Allergies Allergen Reactions Metformin Other Reaction(s): Rhabdomyolysis Other Reaction(s): Other (See Comments) Intolerance, rhabdomylosis Phentermine Shortness of breath Other Reaction(s): Hives Gelatin Metformin Hcl Other Reaction(s): diarrhea Metformin Hcl Er Other Reaction(s): Rhabdomyolsis Other Gelatin Pollen Extract Unknown Other Reaction(s): Unknown Propranolol Other Reaction(s): asthma flare up Sulfites Trulicity [Dulaglutide] Hives Prednisone Rash PROBLEMS Active Ambulatory Problems Diagnosis Date Noted Vaginal bleeding affecting early ([facility]) 11/06/2024 headache, antepartum ([facility]) 12/25/2024 Elevated blood pressure affecting , antepartum ([facility]) 01/16/2025 Resolved Ambulatory Problems Diagnosis Date Noted No Resolved Ambulatory Problems Past Medical History: Diagnosis Date ADHD (attention deficit hyperactivity disorder) Anxiety Gestational diabetes ([facility]) Hypertension Insulin resistance PCOS (polycystic ovarian syndrome) HISTORY PAST MEDICAL HISTORY SOCIAL HISTORY Past Medical History: Diagnosis Date ADHD (attention deficit hyperactivity disorder) Anxiety Gestational diabetes ([facility]) Hypertension Insulin resistance PCOS (polycystic ovarian syndrome) Social [...] reviewed. Vitals: Estimated body mass index is 33.8 kg/m?? as calculated from the following: Height as of 05/06/24: 5' 7 . Weight as of 04/14/25: 215 lb 12.8 oz. BP: Patient's last menstrual period was 08/23/2024. ASSESSMENT & PLAN ICD-10-CM 1. Third trimester ([facility]) Z34.93 2. 32 weeks gestation of ([facility]) Z3A.32 Return OB: Patient presents today for a routine obstetrics appointment. Patient is currently 32w4d . Patient states she is doing well but has complaints of being tired due to current . Patient has verbalizes frequent movement. labor precautions was discussed/given and patient was instructed to perform kick counts three times a day. Increase NPH 5 units at night and am toa total of 10 units in am and pm; increase regular by 4 units for a total of 9 units. No orders of the defined types were placed in this encounter. Follow Up: Patient is to return to office in 1 week for routine OB appointment. Documented by Larisa Chowdary MA on behalf of: Mik Borrego DO documented in this encounter Plan of Treatment Upcoming Encounters Date Type Department Care Team (Late st Contact Info) Description 05/05/2025 9:10 AM EDT Routine [facility] [address] [place] [phone] Mik Borrego DO [facility] [place] [address] 05/12/2025 9:10 AM EDT [place] [address] Mik Borrego DO [facility] [place] [address] 05/19/2025 9:40 AM EDT [place] [address] Mik Borrego DO [address] [place] [address] Scheduled Orders Name Type Priority Associated Diagnoses Orde r Schedule US OB follow up transabdominal approach Imaging Routine Insulin controlled gestational diabetes mellitus (GDM) in third trimester ([facility]) Expected: 04/21/2025, Expires: 08/21/2025 documented as of this encounter Procedures Procedure Name Priority Date/Time Associated Diagnosis Comments POCT URINALYSIS DIPSTICK Routine 04/21/2025 3:40 PM EDT Third trimester ([facility]) documented in this encounter Results * POCT urinalysis dipstick manually resulted (04/21/2025 3:40 PM EDT) Color, UA Yellow Clarity, UA Clear Glucose, UA Negative Negative - 2000(110) ++++ mg/dL Bilirubin, UA Negative Negative - 4(70) +++ mg/dL Ketones, UA Positive Negative - 160(16) ++++ mg/dL Spec Grav, UA 1.015 1 - 1.03 Blood, UA Negative Negative - 50 Albin/mcL pH, UA 7.0 5 - 9 Protein, UA Negative Negative - 2000(20) ++++ mg/dL Urobilinogen, UA 0.2 0.2 - 12 mg/dL Leukocytes, UA Negative Negative - 500+++ Jack/mcL Nitrite, UA Negative Negative - Positive Urine 04/21/2025 3:40 PM EDT Mik Borrego DO POINT OF CARE TEST ENTER/EDIT OR DERABLES Final Result documented in this encounter Visit Diagnoses Diagnosis Third trimester ([facility]) state, incidental 32 weeks gestation of ([facility]) Insulin controlled gestational diabetes mellitus (GDM) in third trimester ([facility]) Multigravida of advanced maternal age in third trimester ([facility]) Hypertension, unspecified type documented in this encounter
--- OUTSIDE RECORDS SUMMARY | 2025-04-21 15:21 | XMS_ITS ---
Author Name Auto Generated Organization OHIP Care Team Providers Care Extension Service Specialist In Charge Name Role Phone NEHA CAMPBELL Attending Unavailable BUFFY COBB Attending Unavailable ADRIAN, NEHA Attending Unavailable ADRIAN, NEHA Attending Unavailable ADRIAN, NEHA Attending Unavailable ADRIAN, NEHA Attending Unavailable ADRIAN, NEHA Attending Unavailable ADRIAN, NEHA Attending Unavailable ADRIAN, NEHA Attending Unavailable ADRIAN, NEHA Attending Unavailable ADRIAN, Neha R Admitting Unavailable ADRIAN, Neha R Attending Unavailable ADRIAN, Neha R Attending Unavailable ADRIAN, Neha R Admitting Unavailable ADRIAN, Neha R Admitting Unavailable ADRIAN, Neha R Attending Unavailable ADRIAN, Neha R Referring Unavailable ADRIAN, Neha R Admitting Unavailable Kirnus, Shahram D Consulting Unavailable ADRIAN, Neha R Attending Unavailable Kirnus, Shahram D Consulting Unavailable Kirnus, Shahram D Consulting Unavailable ADRIAN, Neha R Attending Unavailable ADRIAN, Neha R Admitting Unavailable ADRIAN, NEHA R Referring Unavailable [facility] Attending Unavailable ADRIAN, NEHA R Referring Unavailable ADRIAN, NEHA R Referring Unavailable ADRIAN, NEHA R Referring Unavailable PROBLEMS DATE TYPE CONDITION / CODE ATTENDING STATUS [facility] 01/21/2025 Unknown Unspecified pre- existing hypertension complicating , unspecified trimester / O10.919(ICD-10) [facility] 01/21/2025 Unknown Abnormal glucose complicating / O99.810(ICD-10) [facility] 01/21/2025 Unknown Gestational diab etes mellitus in , unspecified control / O24.419(ICD-10) [facility] 01/21/2025 Unknown 19 weeks gestati on of / Z3A.19(ICD-10) [facility] 01/21/2025 Unknown AMA / UNK(Unknown) [facility] 01/21/2025 Unknown Supervision of e barbaraerly multigravida, second trimester / O09.522(ICD-10) [facility] 01/21/2025 Unknown Encounter for ot her specified screening / Z36.89(ICD-10) [facility] PROCEDURES No Procedure Records Found RESULTS ECHO TRANSTHORACIC COMPLETE Observed: 12:49 PM Status: F Source: [facility] Echocardiology Procedure Exam Date/Time Accession # Ordering Echo Transthoracic 02/17/2025 13:32 EDT [id number] ADRIAN DO, Neha R Complete CPT code 96624 03681 Reason for Exam (Echo Transthoracic Complete) Z34.92, O16.9, O13.9, O09.529 Report [facility] [address] [place] [address] Adult Echocardiogram Report Name: LE STACK Study Date: 02/17/2025 12:56 PM BP: 131/88 mmHg Patient Location: [facility] Ambulatory(s) [facility] [place] HR: 84 : 1990 Gender: Female Height: 67 in Age: 34 yrs Ethnicity: [employer] Weight: 211 lb Reason For Study: Z34.92, O16.9, O13.9, O09.529 BSA: 2.1 m2 History: No cardiac history per patient Ordering Physician: ADRIAN^Neha^R Referring Physician: Neha CAMPBELL Performed By: Christina Dubois RDCS Interpretation Summary Left ventricular systolic function is normal. Ejection Fraction = 60-65%. No significant valvular disease. Normal TTE. Procedure A complete two-dimensional transthoracic echocardiogram was performed (2D, M- mode, spectral and color flow Doppler). Left Ventricle The left ventricle is normal in size. There is normal left ventricular wall thickness. Left ventricular systolic function is normal. Ejection Fraction = 60-65%. The left ventricular wall motion is normal. Normal diastolic function. Left Atrium The left atrial size is normal. There is no atrial septal defect. Echocardiology Report Right Atrium Right atrial size is normal. Right Ventricle The right ventricular systolic function is normal. The right ventricle is normal size. Aortic Valve The trileaflet aortic valve opening is normal. No aortic regurgitation. There is no aortic stenosis. Tricuspid Valve The tricuspid valve is grossly normal. No evidence of tricuspid regurgitation. There was insufficient TR detected to calculate RV systolic pressure. No evidence of tricuspid stenosis. Pulmonic Valve The pulmonic valve is normal. There is no pulmonic valve regurgitation. No evidence of stenosis. Arteries The aortic root is normal in size. Normal ascending aorta. Venous The inferior vena cava is normal in size, and collapses normally with respiration. Effusion There is no pericardial effusion. MMode/2D Measurements & Calculations RVDd: 2.8 cm LVIDd: 5.3 cm FS: 34.7 % Ao root diam: 2.9 cm IVSd: 0.79 cm LVIDs: 3.5 cm EDV(Teich): 135.9 ml Ao root area: 6.6 cm2 LVPWd: 0.86 cm ESV(Teich): 49.7 ml LA dimension: 3.8 cm EF(Teich): 63.4 % asc Aorta Diam: 3.2 cm LVOT diam: 1.8 cm LVLd ap4: 8.7 cm EDV(MOD-sp2): 97.0 ml LVOT area: 2.5 cm2 EDV(MOD-sp4): 84.0 ml ESV(MOD-sp2): 40.1 ml LVLs ap4: 7.1 cm EF(MOD-sp2): 58.7 % ESV(MOD-sp4): 29.1 ml EF(MOD-sp4): 65.4 % SV(MOD-sp4): 54.9 ml TAPSE: 2.9 cm IVC Diam: 0.98 cm RVIDd/LVIDd: 0.53 EF (MOD-bp): 60.6 % LA Vol Index: 16.1 ml/m2 Doppler Measurements & Calculations MV E max ramu: 80.6 cm/sec MV dec time: 0.18 sec Ao V2 max: 177.0 cm/sec LV V1 max P.5 mmHg MV A max ramu: 71.6 cm/sec Ao max P.5 mmHg LV V1 max: 117.4 cm/sec MV E/A: 1.1 Lat Peak E' Ramu: 12.4 cm/sec AMARJIT(V,D): 1.7 cm2 E/E' Lat: 6.5 Med Peak E' Ramu: 12.3 cm/sec E/E' Med: 6.6 Echocardiology Report RAP systole: 3.0 mmHg AV VR: 0.66 Measurements from QLAB ED Mass (): 135.0 grams LAEF (): 79.0 % BSA (): 2.1 m2 FANY (): 23.0 ml/m2 LAVmax (): 47.0 ml LAVmin (): 10.0 ml Pat Height (): 170.0 cm Pat Weight (): 95.7 kg FINAL REPORT Dictated: 02/17/2025 12:56 pm Shahram Tao MD Signed (Electronic Signature): 02/17/2025 2:11 pm Signed by: Shahram Tao MD Transcribed by: MEGAN Technologist: GENE U2Tresa PROTEIN Collected: 8:00 AM Status: F Source: [facility] TYPE CODE TESTS RESULT OUT OF RANGE REFERENCE UNITS LAB 64096527(INC) Ur Total Protein 8.8 Unknown mg/dL LAB 87922622(INC) U24 Total Protein 224 High 28-141 mg/24hr Performed By: #### [id number] #### [facility] [address] [place] [address] U24 TOTAL VOL Collected: 02/04/2025 8:00 AM Status: F Source: [facility] Order Comment: Order added b y Discern Expert TYPE CODE TESTS RESULT OUT OF RANGE REFERENCE UNITS LAB 73510544(INC) Total Volume 2550 Unknown mL LAB 77035259(INC) Hrs Francisco 24 Unknown Performed By: #### [id number] # ### [facility] [address] [place] [address] CMP Collected: 10:43 AM Status: F Source: [facility] TYPE CODE TESTS RESULT OUT OF RANGE REFERENCE UNITS LAB 2345-7(INC) GLUCOSE:MCNC:P T:SER/PLAS:QN: 131 Normal 55-199 mg/dL LAB 3094-0(LOINC) UREA NITROGEN:MCNC: PT:SER/PLAS:QN : 9 Normal 5-21 mg/dL LAB 2160-0(LOINC) CREATININE:MCN C:PT:SER/PLAS: QN: 0.5 Normal 0.5-1.3 mg/dL LAB 64659-8(LOINC) CALCIUM:MCNC:P T:SER/PLAS:QN: 9.5 Normal 8.9-11.1 mg/dL LAB 2951-2(LOINC) SODIUM:SCNC:PT :SER/PLAS:QN: 135 Normal 135-145 mmol/L LAB 2823-3([facility]) POTASSIUM:SCNC :PT:SER/PLAS:Q N: 3.4 Low 3.5-5.3 mmol/L LAB 2075-0([facility]) CHLORIDE:SCNC: PT:SER/PLAS:QN : 104 Normal 101-111 mmol/L LAB 2028-9([facility]) CARBON DIOXIDE:SCNC:P T:SER/PLAS:QN: 22 Normal 21-31 mmol/L LAB 6768-6([facility]) ALKALINE PHOSPHATASE:CC NC:PT:SER/PLAS :QN: 46 Normal 21-98 Int._Unit /L LAB 1975-2([facility]) BILIRUBIN:MCNC :PT:SER/PLAS:Q N: 0.4 Normal 0.0-1.1 mg/dL LAB 1751-7([facility]) ALBUMIN:MCNC:P T:SER/PLAS:QN: 3.9 Normal 3.3-5.0 gm/dL LAB 2885-2([facility]) PROTEIN:MCNC:P T:SER/PLAS:QN: 7.1 Normal 6.0-7.8 gm/dL LAB 1744-2([facility]) ALANINE AMINOTRANSFERA SE:CCNC:PT:SER /PLAS:QN:NO ADDITION OF P-5'-P 18 Normal 6-46 Int._Unit /L LAB 1920-8([facility]) ASPARTATE AMINOTRANSFERA SE:CCNC:PT:SER /PLAS:QN: 19 Normal 5-43 Int._Unit /L LAB 3097-3([facility]) UREA NITROGEN/CREAT ININE:MRTO:PT: SER/PLAS:QN: 18 Normal 10-20 No Units LAB 65531-6([facility]) ANION GAP:SCNC:PT:SE R/PLAS:QN:CALC ULATED 12 Normal 6-16 mEq/L LAB 27806-7([facility]) GLOBULIN:MCNC: PT:SER:QN:CALC ULATED 3.2 Normal 1.4-4.0 gm/dL LAB 79141-5([facility]) ALBUMIN/GLOBUL IN:MCRTO:PT:SE R:QN: 1.2 Normal 1.1-2.2 Performed By: #### [id number] # ### [facility] [address] [place] [address] CBC W/ AUTO DIFF Collected: 5 10:43 AM Status: F Source: [facility] TYPE CODE TESTS RESULT OUT OF RANGE REFERENCE UNITS LAB 76749-8([facility]) LEUKOCYTES^^CO RRECTED FOR NUCLEATED ERYTHROCYTES:N CNC:PT:BLD:QN: AUTOMATED COUNT 14.6 High 4.0-11.0 E9/L LAB 789-8([facility]) ERYTHROCYTES:N CNC:PT:BLD:QN: AUTOMATED COUNT 4.6 Normal 4.3-5.9 E12/L LAB 718-7([facility]) HEMOGLOBIN:MCN C:PT:BLD:QN: 13.2 Normal 12.0-16.0 gm/dL LAB 4544-3([facility]) ERYTHROCYTE/BL OOD:VFR:PT:BLD :QN:AUTOMATED COUNT 39.2 Normal 34.0-46.0 % LAB 788-0([facility]) OBSERVATION:DI STWIDTH:PT:RBC :QN:AUTOMATED COUNT 13.5 Normal 10.9-14.2 % LAB 785-6([facility]) HEMOGLOBIN:ENT MASS:PT:RBC:QN :AUTOMATED COUNT 29.0 Normal 27.0-34.0 pg LAB 786-4([facility]) HEMOGLOBIN:ENT MCNC:PT:RBC:QN :AUTOMATED COUNT 33.7 Normal 31.4-36.0 gm/dL LAB 787-2([facility]) OBSERVATION:EN TMEANVOL:PT:RB C:QN:AUTOMATED COUNT 86.2 Normal 80.0-100.0 fL LAB 00236-1([facility]) PLATELET:ENTME ANVOL:PT:BLD:Q N:AUTOMATED COUNT 9.4 Normal 6.4-10.8 fL LAB 92822031([facility]) Platelet 302.0 Normal 150.0-500.0 E9/ L LAB 79754-4([facility]) NEUTROPHILS/LE UKOCYTES:NFR:P T:BLD:QN: 80.6 High 36.0-75.0 % LAB 731-0([facility]) LYMPHOCYTES:NC NC:PT:BLD:QN:A UTOMATED COUNT 14.3 Normal 14.0-50.0 % LAB 742-7([facility]) MONOCYTES:NCNC :PT:BLD:QN:AUT OMATED COUNT 0.6 Normal 0.2-1.0 E9/L LAB 713-8([facility]) EOSINOPHILS/LE UKOCYTES:NFR:P T:BLD:QN:AUTOM ATED COUNT 0.9 Normal 0.0-8.0 % LAB 704-7([facility]) BASOPHILS:NCNC :PT:BLD:QN:AUT OMATED COUNT 0.3 Normal 0.0-2.0 % LAB 751-8([facility]) NEUTROPHILS:NC NC:PT:BLD:QN:A UTOMATED COUNT 11.8 High 2.0-7.5 E9/L LAB 21217-2([facility]) LYMPHOCYTES:NC NC:PT:BLD:QN: 2.1 Normal 1.0-4.0 E9/L LAB 22705-7([facility]) EOSINOPHILS:NC NC:PT:BLD:QN: 0.1 Normal 0.0-0.5 E9/L LAB 73684-6([facility]) BASOPHILS/LEUK OCYTES:NFR.DF: PT:BLD:QN:AUTO MATED COUNT 0.0 Normal 0.0-0.2 E9/L Performed By: #### [id number] # ### [facility] [address] [place] [address] EGFR Collected: 5 10:43 AM Status: F Source: [facility] TYPE CODE TESTS RESULT OUT OF RANGE REFERENCE UNITS LAB 66285502([facility]) eGFR 124 Normal >=59 mL/min/1 .7 3 m2 Performed By: #### [id number] #### [facility] [address] [place] [address] URIC ACID Collected: 5 10:43 AM Status: F Source: [facility] TYPE CODE TESTS RESULT OUT OF RANGE REFERENCE UNITS LAB 3084-1([facility]) URATE:MCNC:PT :SER/PLAS:QN: 4.6 Normal 2.2-7.4 mg/dL Performed By: #### [id number] # ### [facility] [address] [place] [address] BNP Collected: 01/27/2025 10:43 AM Status: F Source: [facility] TYPE CODE TESTS RESULT OUT OF RANGE REFERENCE UNITS LAB 18135-0(LOINC) NATRIURETIC PEPTIDE.B:MCNC:P T:SER/PLAS:QN: <5 Low 5-80 pg/mL LAB CD:56861410(KIM NC) Int Ctr BNP Pass Normal Performed By: #### [id number] #### [facility] [address] [place] [address] LDH Collected: 10:43 AM Status: F Source: [facility] TYPE CODE TESTS RESULT OUT OF RANGE REFERENCE UNITS LAB 13985590(LOINC) LDH 158 Normal 93-218 Int._Uni t/ L Performed By: #### [id number] # ### [facility] [address] [place] [address] US OB TRANSVAGINAL Observed: 10/24/2024 1:21 PM Status: F Source: [facility] TITLE OF EXAM: US OB TRANSVA GINAL REASON FOR EXAM: Dating TECHNIQUE: Grayscale, color, [...] x 2.5 cm (6 weeks, 5 days). Magna rump length is 0.9 cm (7 weeks, [...] signed and approved by the interpreting radiologist. ALLERGIES DATE TYPE / CODE NAME / CODE REACTION SEVERITY SOURCE 01/21/2025 Drug Class/65224 1003(SNOMED CT) SULFITES [facility] 12/06/2024 DRUG INGREDI/419 210823(SNOM ED CT) PHENTERMINE Shortness Of Breath High [facility] 12/06/2024 DRUG INGREDI/419 444657(SNOM ED CT) GELATIN [facility] 12/06/2024 DRUG INGREDI/419 014164(SNOM ED CT) METFORMIN Other ( See Comments) [facility] 12/06/2024 DRUG INGREDI/419 936098(SNOM ED CT) DULAGLUTIDE Hives [facility] /14553320 6(SNOMED CT) No Known Allergies [facility] /65840262 6(SNOMED CT) Adipex-P 537074647~469517 011 [facility] FILIPE 6(SNOMED CT) metFORMIN 682325450 Severe (Severity Modifier) (Qualifier Value) [facility] YOBANY37338196 6(SNOMED CT) No Known Medication Allergies [facility] ENCOUNTERS ADMIT/DISCHARGE ACCOUNT NUMBER ADMITTING ENCOUNTER CLASS LOCATION SOURCE 04/21/2025/04/21/20 [id number] Ambulatory Building:NO MS BCP OB [facility] EPIC 04/14/2025/04/14/20 [id number] Ambulatory Building:NO MS BCP OB [facility] EPIC 04/08/2025/04/08/20 [id number] Ambulatory Building:NO MS BCP OB [facility] EPIC 03/31/2025/03/31/20 [id number] Ambulatory Building:PT [facility] 03/24/2025/03/24/20 25 [id number] Ambulatory Building:NO MS BCP OB [facility] 03/03/2025/03/03/20 25 [id number] Ambulatory Building:PT [facility] 02/24/2025/02/25/20 25 [id number] Ambulatory Building:NO MS BCP OB [facility] EPIC 02/17/2025/02/18/20 25 [id number] Neha CAMPBELL R Ambulatory [facility] g:FT CAR [facility] 02/04/2025 [id number] Neha CAMPBELL Ambulatory [facility] g:FT LAB [facility] 02/04/2025/02/05/20 [id number] Neha CAMPBELL Ambulatory [facility] g:FT LAB [facility] 01/27/2025/01/28/20 25 [id number] Neha CAMPBELL Ambulatory [facility]:FT LAB [facility] 01/27/2025 [id number] Neha CAMPBELL Ambulatory [facility] g:FT LAB [facility] 01/27/2025/01/28/20 [id number] Ambulatory Building:NO MS BCP OB [facility] 01/21/2025/01/22/20 25 [id number] Ambulatory Buildin 94 [facility] 01/21/2025/01/22/20 25 [id number] Ambulatory Building:PT [facility] 12/30/2024/12/31/19 25 [id number] Ambulatory Building:NO MS BCP OB [facility] EPIC 12/23/2024/12/24/19 25 [id number] Ambulatory Building:NO MS BCP OB [facility] EPIC 11/25/2024/11/25/19 25 [id number] Ambulatory Building:NO MS BCP OB [facility] EPIC 10/24/2024/10/24/19 25 [id number] Ambulatory Building:NO MS BCP OB [facility] EPIC 10/24/2024/10/24/19 [id number] Ambulatory Building:NO MS BCP OB [facility] EPIC 09/16/2024/09/16/20 [id number] Ambulatory Building:NO MS BCP OB [facility] EPIC 05/06/2024/05/06/20 [id number] Ambulatory Building:NO MS BCP OB [facility] EPIC PAYERS ENCOUNTER GUARANTOR PAYER SUBSCRIBER SOURCE 04/21/2025 LE HERNANDEZOB: [address] [place] [address]Jcs: (HP) Primary Insurance:PearlChain.netPol icy Number: [id number] tive Date:2022-05-25 LINDA FUERB: [id number] [place] [facility] [address] [facility] EPIC 04/14/2025 EL HERNANDEZOB: [place] [address]Syv: (HP) Primary Insurance:BCSmartSky NetworksPol icy Number: [id number] tive Date:2022-05-25 LINDA MÉNDEZB: [id number] [address] [facility] [place] [address] [facility] EPIC 04/08/2025 LE HERNANDEZOB: [address] [facility] [address]Hst: (HP) Primary Insurance:Pear[employer]Chain[employer] icy Number: [id number] tive Date:2022-05-25 LINDA FUERB: [id number] [facility] [facility] [place] [address] [facility] EPIC 03/31/2025 LE HERNANDEZOB: [address] [facility] [place] [address]Qix: (HP) Primary Insurance:BLUE ACCESS (PPO)Policy Number: [id number] tive Date:2022-05-25 LINDA Garcia OBERMEYERB: [id number] [place], [place] [address]Jtc: (HP) [facility] 03/24/2025 LE HERNANDEZOB: [place] [address]Sts: (HP) Primary Insurance:BCSmartSky NetworksPol icy Number: [id number] tive Date:2022-05-25 LINDA Garcia OBERMJARETHERB: [id number] [place] [address] [facility] EPIC 03/03/2025 LE HERNANDEZOB: [address] [place], [place] [address]Pil: (HP) Primary Insurance:BLUE ACCESS (PPO)Policy Number: tive Date:2022-05-25 LINDA Garcia TANKERB: [id number] [place], [place] [address]Zfx: (HP) [facility] 02/24/2025 LE HERNANDEZOB: [place] [address]Fua: (HP) Primary Insurance:BCSmartSky NetworksPol icy Number: [id number] tive Date:2022-05-25 LINDA Jose FUERB: [id number] [place] [address] [facility] EPIC 02/17/2025 LE HERNANDEZOB: [address] STTel: ~~(41 (HP) Primary Insurance:AnthemP kenya Number: Effective Date:6036-00-21GI [id number] [address]YO: LINDA CHERY [facility] 02/04/2025 LE KWOKKDOB: [address] STTel: ~~(41 (HP) Primary Insurance:Perlita hernadezy Number: Effective Date:8181-90-79[id number] [place] [address]GJ: LINDA Garcia TATEJARETHHUSSEIN [facility] 01/27/2025 LE KWOKKDOB: [address] STTel: ~~(41 (HP) Primary Insurance:KarisemP kenya Number: Effective Date:2223-51-81[id number] [place] [address]YY: LINDA Jose YBARRAJARETHHUSSEIN [facility] 01/27/2025 LETAB HERNANDEZOB: [place] [address]Cma: (HP) Primary Insurance:BCBSPol icy Number: [id number] tive Date:2022-05-25 LINDA Jose OBERMEYERDOB: [id number] [place] [address] [facility] 01/21/2025 LE KLIRAMJEWELLOB: E [address] [facility] [place] [address]Esl: (HP) Primary Insurance:BLUE ACCESS (PPO)Policy Number: [id number] tive Date:2022-05-25 LINDA Jose OBERMEYERDOB: [id number] [facility] [place] [address]Zyj: (HP) [facility] 01/21/2025 LE KWOKKDOB: [address] [facility] [place] [address]Woe: (HP) Primary Insurance:BLUE ACCESS (PPO)Policy Number: [id number] tive Date:2022-05-25 LINDA Garcia OBERMEYERDOB: [id number] [address] [place] [place], [place] [address]Vqc: () [facility] 12/30/2024 LE KWOKKDOB: [place] [address]Lcj: (HP) Primary Insurance:BCBSPol icy Number: [id number] tive Date:2022-05-25 LINDA Jose OBERMEYERDOB: [id number] [place] [address] [facility] EPIC 12/23/2024 LE KWOKKDOB: [place] [address]Bed: () Primary Insurance:BCBSPol icy Number: [id number] tive Date:2022-05-25 LINDA Jose OBERMEYERDOB: [id number] [place] [address] [facility] EPIC 11/25/2024 LE HERNANDEZOB: [place] [address]Umu: () Primary Insurance:BCBSPol icy Number: [id number] tive Date:2022-05-25 LINDA Jose OBERMEYERDOB: [id number] [place] [address] [facility] EPIC 10/24/2024 LE KWOKKDOB: [place] [address]Csr: () Primary Insurance:BCBSPol icy Number: [id number] tive Date:2022-05-25 LINDA Garcia OBERMEYERDOB: [id number] [place] [address] [facility] EPIC 10/24/2024 LE HERNANDEZOB: [facility] [place] [address]Kle: () Primary Insurance:BCBSPol icy Number: [id number] tive Date:2022-05-25 LINDA MÉNDEZB: [id number] [address] [place] [address] [facility] EPIC 09/16/2024 LE KWOKKDOB: [address] [place] [address]Fyl: () Primary Insurance:BCBSPol icy Number: [id number] tive Date:2022-05-25 LINDA MÉNDEZB: [id number] [place] [address] [facility] EPIC 05/06/2024 LE KWOKKDOB: [place] [address]Vcf: () Primary Insurance:BCBSPol icy Number: [id number] tive Date:2022-05-25 LINDA MÉNDEZB: [id number] [address] [place] [address] [facility] EPIC
--- OUTSIDE RECORDS SUMMARY | 2025-04-29 14:54 | XMS_ITS | Encounter Summary ---
Author Organization [facility] Address [address] [place] [address] Care Team Providers Care Crm Coordinator Name Role Phone Unavailable Primary Care Provider Unavailabl e Encounter Details Date Type Department Care Team (Late st Contact Info) Description 04/21/2025 Bamboo flowsheet [facility] [address] [place] [address] Mik Borrego, DO [address] [place], [place] [address] Social History Tobacco Use Types Packs/Day Years Used Date Smoking Tobacco: Never Assessed Estimated Date of Delivery Comme nts Yes 06/12/2025 Based on Ultraso und Sex and Gender Information Value Date Recorded Sex Assigned at Not on file Legal Sex Female 6:40 PM EDT Gender Identity Not on file Sexual Orientation Not on file documented as of this encounter Plan of Treatment Upcoming Encounters Date Type Department Care Team (Late st Contact Info) Description 05/05/2025 9:10 AM EDT Routine [facility] [address] [place] [address] Mik Borrego, DO [address], [place] [address] 05/12/2025 9:10 AM EDT Routine [facility] [address] [place] [address] Mik Borrego, DO [address], [facility] 05/19/2025 9:40 AM EDT Routine [facility] [address] [facility] [address] Mik Borrego, [address] [place], [place] [id number] documented as of this encounter Visit Diagnoses Not on filedocumented in this encounter
--- OUTSIDE RECORDS SUMMARY | 2025-04-29 14:54 | XMS_ITS | Encounter Summary ---
Author Organization [facility] Address [address] [place] [address] Care Team Providers Care Private Branch Exchange Installer Name Role Phone Unavailable Primary Care Provider Unavailabl e Encounter Details Date Type Department Care Team (Late st Contact Info) Description 01/22/2025 Abstract [facility] [address] [place] [address] Mik Borrego DO [facility] [address] [place], [facility] Social History Tobacco Use Types Packs/Day Years [...] Routine [facility] [address] [place] [address] Mik Borrego, DO [address] [place], [place] [id number] 05/12/2025 9:10 AM EDT Routine [facility] [address] [place] [address] Mik Borrego, DO [facility] [place], [facility] 05/19/2025 9:40 AM EDT Routine [facility] [address] [place] [place] [address] Mik Borrego, [address] [place] [address] documented as of this encounter Visit Diagnoses Not on filedocumented in this encounter
--- OUTSIDE RECORDS SUMMARY | 2025-04-29 14:54 | XMS_ITS | Encounter Summary ---
Author Organization [facility] Address [address] [place] [address] Care Team Providers Care Auto Former Machine Operator Name Role Phone Unavailable Primary Care Provider Unavailabl e Encounter Details Date Type Department Care Team (Late st Contact Info) Description 04/23/2025 Clinisync Result Encounter NOMS External Department Unsolicited Neha Borrego, DO [address] [place], [facility]11 Social History Tobacco Use Types Packs/Day Years [...] Routine NOMS BCP OB [address] [place] [phone] Neha Borrego, DO [address] [place], [facility]11 05/12/2025 9:10 AM EDT Routine N[facility]S BCP OB [address] [place] [address] Neha Borrego, DO [address] [place], [place] [address] 05/19/2025 9:40 AM EDT Routine [facility] BCP OB [address] [facility] [place] [address] Neha Borrego DO [address] [facility] [place] [address] documented as of this encounter Procedures Procedure Name Priority Date/Time Associated Diagnosis Comments US OB BPP W NON-STRESS 04/23/2025 8:03 AM EDT documented in this encounter Results * US OB BPP W NON-STRESS (04/23/2025 8:03 AM EDT) Anatomical Region Laterality Modality Other 04/23/2025 8:03 AM EDT Narrative 04/23/2025 9:46 AM EDT The [address] [address] Ultrasound Report Signed Patient: LE WEEMS MR#: [id number] : 1990 Acct:[id number] Age/Sex: 34 / F ADM Date: 04/22/25 Loc: US Attending Dr: Neha Borrego D.O. Ordering Physician: Neha Borrego D.O. Date of Service: 04/22/25 Procedure(s): US OB BPP w non-stress Accession Number(s): [id number] cc: Neha Borrego D.O.; Physician,Non-Staff M.D. The [address] [address] Patient Name: LE WEEMS MRN: [id number] date: 1990 Sex: F Assigned Patient Location: US Current Patient Location: Accession/Order Number: [id number] Exam Date: 04/23/2025 08:01 Report Date: 04/23/2025 08:03 At the request of: NEHA BORREGO DO Procedure: US OB BPP w [...] This is in normal range. Total score: 05/30 US/US OB BPP w non-stress IMPRESSION: NORMAL BIOPHYSICAL PROFILE POTENTIAL NUCHAL CORD. Impression dictated by: Mariam Olivares M.D. 04/23/2025 8:03 AM Dictation Location: [place] [address] Electronically authenticated by: [id number] Y Date: 04/23/2025 08:03 Dictated By: Mariam Olivares M.D. Signed By: 04/23/25 0946 DD/ 0803 TD/TT: Building Supervisor: Procedure Note Radiology, Radiologist, - 04/23/2025 [place] [address] Ultrasound Report Signed Patient: LE WEEMSMR#: [id number] : 1990Acct:[id number] Age/Sex: 34 / FADM Date: 04/22/25 Loc: US Attending Dr: Neha Borrego D.O. Ordering Physician: Neha Borrego D.O. Date of Service: 04/22/25 Procedure(s): US OB BPP w non-stress Accession Number(s): [id number] cc: Neha Borrego D.O.; Physician,Non-Staff Dileep The [place] [id number] Patient Name: LE WEEMS MRN: [facility]:[id number] date: 1990 Sex: F Assigned Patient Location: Current Patient Location: Accession/Order Number: [id number] Exam Date: 04/23/2025 08:01 Report Date: 04/23/2025 08:03 At the request of: NEHA BORREGO DO Procedure: US OB BPP w non-stress BIOPHYSICAL PROFILE: CLINICAL INFORMATION: GESTATIONAL DIABETES MELLITUS O24.419 COMPARISON: 11/08/2024 There is a single live intrauterine gestation in cephalic presentation.The reported gestational age is 32 weeks 5 days. The heart ratemeasures 129 beats per minute. A nuchal cord is suggested. FINDINGS: TONE: 1 or more episodes of activity extension and flexion of extremity or opening and closing of the hand [Y] 2/2 GROSS BODY MOVEMENTS: 3 or more discrete body or limb movements [Y] 2/2 BREATHING MOVEMENTS: 1 or more episodes of breathing lastingat least 30 seconds [Y] 2/2 SARA: A single deepest vertical pocket of amniotic fluid greater than 2 cm [Y] 2/2 SARA: 13.5 cm. This is in normal range. Total score: 8/8 US/US OB BPP w non-stress IMPRESSION: NORMAL BIOPHYSICAL PROFILE POTENTIAL NUCHAL CORD. Impression dictated by: Mariam Olivares M.D. 04/23/2025 8:03 AM Dictation Location: [place] [address] Electronically authenticated by: [id number] Y Date: 508:03 Dictated By: Mariam Olivares M.D. Signed By:04/23/25 0946 DD/ 0803 TD/TT: Building Supervisor: Neha Borrego DO [facility] Final Result documented in this encounter Visit Diagnoses Not on filedocumented in this encounter
--- OUTSIDE RECORDS SUMMARY | 2025-04-29 14:54 | XMS_ITS | Encounter Summary ---
Author Organization [facility] Address [address] [place] [address] Care Team Providers Care Artillery Or Naval Gunfire Observer Name Role Phone Unavailable Primary Care Provider Unavailabl e Encounter Details Date Type Department Care Team (Late st Contact Info) Description 04/22/2025 Abstract [facility] BCP OB [address] [place] [address] Mik Borrego DO [facility] [place], [facility]11 Social History Tobacco Use Types Packs/Day Years [...] Routine NOMS BCP OB [address] [place] [address] Mik Borrego, DO [address] [place], [place] [id number] 05/12/2025 9:10 AM EDT Routine [facility] BCP OB [address] [place] [address] Mik Borrego DO [facility] [place], [facility] 05/19/2025 9:40 AM EDT Routine [facility] BCP OB [address] [facility] [place] [address] Mik Borrego, [address] [place] [address] documented as of this encounter Visit Diagnoses Not on filedocumented in this encounter
--- OUTSIDE RECORDS SUMMARY | 2025-04-29 14:54 | XMS_ITS | Encounter Summary ---
Author Organization [facility] Address [address] [place] [address] Care Team Providers Care Gas Main And Line Fitter Name Role Phone Unavailable Primary Care Provider Unavailabl e Encounter Details Date Type Department Care Team (Late st Contact Info) Description 11/11/2024 Abstract [facility] BCP OB [address] [place] [address] Mik Borrego DO [facility] [place], [facility]11 Social History Tobacco Use Types Packs/Day [...] Routine NOMS BCP OB [address] [place] [address] Mik Borrego, DO [address] [place], [place] [address] 05/12/2025 9:10 AM EDT Routine [facility]S BCP OB [address] [place] [address] Mik Borrego, DO [facility] [place], [facility]11 05/19/2025 9:40 AM EDT Routine [facility]OMS BCP OB [address] [place] [address] Mik Borrego, [address] [place] [address] documented as of this encounter Visit Diagnoses Not on filedocumented in this encounter
--- OUTSIDE RECORDS SUMMARY | 2025-04-29 14:54 | XMS_ITS | Encounter Summary ---
Author Organization [facility] Address [address] [place] [address] Care Team Providers Care Flour Worker Name Role Phone Unavailable Primary Care Provider Unavailabl e Encounter Details Date Type Department Care Team (Late st Contact Info) Description 02/04/2025 Abstract [facility] BCP OB [address] [place] [address] Mik Borrego DO [facility] [place], [facility]11 Social History Tobacco Use Types Packs/Day Years [...] Routine NOMS BCP OB [address] [place] [address] Mik Borrego, DO [address] [place], [place] [id number] 05/12/2025 9:10 AM EDT Routine [facility]S BCP OB [address] [place] [address] Mik Borrego, DO [facility] [place], [facility]11 05/19/2025 9:40 AM EDT Routine [facility] BCP OB [address] [place] [address] Mik Borrego, [address] [place] [address] documented as of this encounter Visit Diagnoses Not on filedocumented in this encounter
--- OUTSIDE RECORDS SUMMARY | 2025-04-29 14:54 | XMS_ITS | Encounter Summary ---
Author Organization [facility] Address [address] [place] [address] Care Team Providers Care Manager Sourcing Name Role Phone Unavailable Primary Care Provider Unavailabl e Encounter Details Date Type Department Care Team (Late st Contact Info) Description 10/08/2024 Orders Only [facility] BCP OB [address] [place] [phone] Larisa Chowdary MA [address] [place] [address] [place] [address] Social History Tobacco Use Types Packs/Day Years Used Date Smoking Tobacco: Never Assessed Comments No Sex and Gender Information Value Date Recorded Sex Assigned at Not on file Legal Sex Female 6:40 PM EDT Gender Identity Not on file Sexual Orientation Not on file documented as of this encounter Plan of Treatment Upcoming Encounters Date Type Department Care Team (Late st Contact Info) Description 05/05/2025 9:10 AM EDT Routine NOMS BCP OB [facility] [place] [phone] Mik Borrego [address] [place] [address] 05/12/2025 9:10 AM EDT Routine NOMS BCP OB [facility] [place] [address] Mik Borrego DO [facility] [place] [address] 05/19/2025 9:40 AM EDT Routine NOMS BCP OB [facility] [place] [address] Mik Borrego, DO [address] [facility] [place] [address] documented as of this encounter Procedures Procedure Name Priority Date/Time Associated Diagnosis Comments PAP SMEAR Routine 09/16/2024 12:00 AM EST documented in this encounter Results * Pap Smear (09/16/2024 12:00 AM EST) Swab Cervical swab / Unknown us Mik Borrego DO LAB CYTOLOGY ORDERABLES Final Re sult EXTERNAL LAB documented in this encounter Visit Diagnoses Not on filedocumented in this encounter
--- OUTSIDE RECORDS SUMMARY | 2025-04-29 14:54 | XMS_ITS | Encounter Summary ---
Author Organization [facility] Address [address] [place] [address] Care Team Providers Care Business Services Analyst Name Role Phone Unavailable Primary Care Provider Unavailabl e Encounter Details Date Type Department Care Team (Late st Contact Info) Description 04/01/2025 Abstract [facility] BCP OB [address] [place] [address] Juanis Esparza MA Social History Tobacco Use Types Packs/Day Years [...] AM EDT Routine [facility]OMS BCP OB [address] [place] [address] Mik Borrego [address] [place] [address] 05/12/2025 9:10 AM EDT [place] [address] Mik Borrego DO [address] [place] [address] [place] [address] 05/19/2025 9:40 AM EDT Routine NOMS BCP OB [address] [place] [address] Mik Borrego, DO [address] [facility] [address] [place], [place] [address] documented as of this encounter Visit Diagnoses Not on filedocumented in this encounter
--- OUTSIDE RECORDS SUMMARY | 2025-04-29 14:54 | XMS_ITS | Encounter Summary ---
Author Organization [facility] Address [address] [place] [address] Care Team Providers Care Asphalt Paving Machine Operator Name Role Phone Unavailable Primary Care Provider Unavailabl e Encounter Details Date Type Department Care Team (Late st Contact Info) Description 11/08/2024 Clinisync Result Encounter NOMS External Department Unsolicited Neha Borrego, DO [address] [place], [facility]11 Social History Tobacco Use Types Packs/Day Years [...] Routine [facility]OMS BCP OB [address] [place] [address] Neha Borrego, DO [address] [place], [place] [address] 05/12/2025 9:10 AM EDT Routine [facility]OMS BCP OB [address] [place] [address] Neha Borrego, DO [address] [place], [place] [address] 05/19/2025 9:40 AM EDT Routine [facility] BCP OB [address] [facility] [place] [address] Neha Borrego, [address] [facility] [place] [address] documented as of this encounter Procedures Procedure Name Priority Date/Time Associated Diagnosis Comments US OB TRANSVAGINAL 11/08/2024 11 :32 AM EST HBSAG SCREEN Routine 11/08/2024 10:14 AM EST RAPID PLASMA REAGIN, QUANT Routine 11/08/2024 10:14 AM EST HIV AB/P24 AG WITH REFLEX Routine 11/08/2024 10:14 AM EST HCV ANTIBODY RFX TO QUANT PCR Routine 11/08/2024 10:14 AM EST ALL TYPE AND SCREEN Routine 11/08/2024 1 0:14 AM EST ALL RUBELLA IGG AB Routine 11/08/2024 10 :14 AM EST documented in this encounter Results * US OB TRANSVAGINAL (11/08/2024 11:32 AM EST) Anatomical Region Laterality Modality Other 11/08/2024 11:3 2 AM EST Narrative 11/08/2024 11:35 AM EST [address] [address] Ultrasound Report Signed Patient: LE WEEMS MR#: [id number] : 1990 Acct:[id number] Age/Sex: 33 / F ADM Date: 11/08/24 Loc: US Attending Dr: Neha Borrego D.O. Ordering Physician: Neha Borrego D.O. Date of Service: 11/08/24 Procedure(s): US OB transvaginal Accession Number(s): [id number] cc: Neha Borrego D.O.; Physician,Non-Staff Dileep The [place] [id number] Patient Name: LE WEEMS MRN: [id number] date: 1990 Sex: F Assigned Patient Location: US Current Patient Location: US Accession/Order Number: [id number] Exam Date: 11/08/2024 10:18 Report Date: 11/08/2024 11:32 At the request of: NEHA BORREGO Procedure: US OB transvaginal EXAMINATION: US OB transvaginal HISTORY: Vaginal Bleeding In Early COMPARISON: No relevant comparison available. FINDINGS: GESTATIONAL SAC: Present and normal appearing. YOLK SAC: Present and normal appearing. POLE: Present and normal appearing. CARDIAC: Present. UTERUS: Normal size and appearance. OVARIES: Right: Not seen. Left: Cyst; possible corpus lutein cyst. CERVIX: 4.4 cm in length and closed. CUL-DE-SAC: Normal. OTHER: None. AGE BY LMP: 9 weeks 1 day VIJAYA BY LMP: 06/12/2025 AGE BY US CRL: 10 weeks 0 days VIJAYA BY US CRL: 06/06/2025 US/US OB transvaginal IMPRESSION: 1. Single live intrauterine . Electronically authenticated by: JAIME ARDON Date: 11/08/2024 11:32 Dictated By: Jaime Ardon M.D. Signed By: 11/08/24 1135 DD/ 1132 TD/TT: Rivet Machine Operator: Procedure Note Radiology, Radiologist, MD - 11/08/2024 [place] [address] Ultrasound Report Signed Patient: LE WEEMSMR#: [id number] : 1990Acct:[id number] Age/Sex: 33 / FADM Date: 11/08/24 Loc: US Attending Dr: Neha Borrego D.O. Ordering Physician: Neha Borrego D.O. Date of Service: 11/08/24 Procedure(s): US OB transvaginal Accession Number(s): [id number] cc: Neha Borrego D.O.; Physician,Non-Staff Dileep The [place] [address] Patient Name: LE WEEMS MRN: [id number] date: 1990 Sex: F Assigned Patient Location: US Current Patient Location: US Accession/Order Number: [id number] Exam Date: 11/08/2024 10:18 Report Date: 11/08/2024 11:32 At the request of: NEHA BORREGO Procedure: US OB transvaginal EXAMINATION: US OB transvaginal HISTORY: Vaginal Bleeding In Early COMPARISON: No relevant comparison available. FINDINGS: GESTATIONAL SAC: Present and normal appearing. YOLK SAC: Present and normal appearing. POLE: Present and normal appearing. CARDIAC: Present. UTERUS: Normal size and appearance. OVARIES: Right: Not seen. Left: Cyst; possible corpus lutein cyst. CERVIX: 4.4 cm in length and closed. CUL-DE-SAC: Normal. OTHER: None. AGE BY LMP: 9 weeks 1 day VIJAYA BY LMP: 06/12/2025 AGE BY US CRL: 10 weeks 0 days VIJAYA BY US CRL: 06/06/2025 US/US OB transvaginal IMPRESSION: 1. Single live intrauterine . Electronically authenticated by: JAIME ARDON Date: 11/08/2024 11:32 Dictated By: Jaime Ardon M.D. Signed By:11/08/24 1135 DD/ 1132 TD/TT: Rivet Machine Operator: us Neha Borrego DO [facility] Final Result * HBSAG SCREEN (11/08/2024 10:14 AM EST) HBSAG SCREEN Negative Negative [facility] Comment: Performed at: - Lab[address] [id number] Banking And Finance Instructor: Toni Espinal PhD, Phone: [phone] 11/08/2024 10:1 4 AM EST 11/08/2024 10:16 AM EST Narrative [facility] - 11/09/2024 12:09 PM EST [facility] BLOOD ORDERABLES Final Resul t Performing Organization Address [facility] de Phone Number [facility] * RAPID PLASMA REAGIN, QUANT (11/08/2024 10:14 AM EST) RAPID PLASMA REAGIN, QUANT Non Reactive NonRea<1: 1 titer [facility] Comment: Please Note: This test does not meet current guidelines for screening and diagnosis of syphilis. This test is intended for following treatment response in patients being treated for syphilis infection. To screen for syphilis infection, a reflex cascade that includes both RPR and a treponema-specific assay should be utilized, such as Treponema pallidum (Syphilis) Screening Reynolds (060565) or Rapid Plasma Reagin (RPR) Test With Reflex to Quantitative RPR and Confirmatory Treponema pallidum Antibodies (188526). Performed at: [address] [id number] Banking And Finance Instructor: Toni Espinal PhD, Phone: [phone] 11/08/2024 10:1 4 AM EST 11/08/2024 10:16 AM EST Narrative [facility] - 11/09/2024 12:09 PM EST [employer] LAB BLOOD ORDERABLES Final Resul t Performing Organization Address [facility] de Phone Number [facility] * HCV ANTIBODY RFX TO QUANT PCR (11/08/2024 10:14 AM EST) HCV AB Non Reactive Non Reactive [facility] INTERPRETATION: Comment . [facility] Comment: Not infected with HCV unless early or acute infection is suspected (which may be delayed in an immunocompromised individual), or other evidence exists to indicate HCV infection. 11/08/2024 10:1 4 AM EST 11/08/2024 10:16 AM EST Narrative [facility] - 11/09/2024 5:07 AM EST Neha Elmo DO LAB BLOOD ORDERABLES Final Resul t Performing Organization Address City/[facility]/ZIP Co de Phone Number [facility] * HIV AB/P24 AG WITH REFLEX (11/08/2024 10:14 AM EST) HIV AB/P24 AG SCREEN Non Reactive Non Reactive [facility] Comment: HIV-1/HIV-2 antibodies and HIV-1 p24 antigen were NOT detected. There is no laboratory evidence of HIV infection. HIV Negative Performed at: [facility] Lab[address] [id number] Banking And Finance Instructor: Toni Espinal PhD, Phone: [phone] 11/08/2024 10:1 4 AM EST 11/08/2024 10:16 AM EST Narrative [facility]IN[facility] - 11/09/2024 5:07 AM EST Neha Elmo DO LAB BLOOD ORDERABLES Final Resul t Performing Organization Address [facility] Co de Phone Number [facility] * ALL RUBELLA IGG AB (11/08/2024 10:14 AM EST) RUBELLA ANTIBODIES, IGG 1.78 Immune >0.99 index [facility] Comment: Non-immune <0.90 Equivocal 0.90 - 0.99 Immune >0.99 11/08/2024 10:1 4 AM EST 11/08/2024 10:16 AM EST Narrative [facility] - 11/09/2024 5:07 AM EST Neha Elmo DO CLIN[facility] Final Result Performing Organization Address City/[facility]/ZIP Co de Phone Number [facility] * ALL TYPE AND SCREEN (11/08/2024 10:14 AM EST) BLOOD TYPE B Positive [facility] ANTIBODY SCREEN NEGATIVE [facility] 11/08/2024 10:1 4 AM EST 11/08/2024 10:16 AM EST Narrative [facility] - 11/08/2024 12:24 PM EST [facility] [place] , [place] Neha Jaino DO CLINIS[facility] Final Result [facility] documented in this encounter Visit Diagnoses Not on filedocumented in this encounter
--- OUTSIDE RECORDS SUMMARY | 2025-04-29 14:54 | XMS_ITS | Encounter Summary ---
Author Organization [facility] Address [address] [place] [address] Care Team Providers Care Engineer Specialist Name Role Phone Unavailable Primary Care Provider Unavailabl e Encounter Details Date Type Department Care Team (Late st Contact Info) Description 02/04/2025 Abstract [facility] BCP OB [address] [place] [address] Mik Borrego DO [facility] [place], [facility]11 Social History Tobacco Use Types Packs/Day [...] NOMS BCP OB [address] [place] [address] Mik Borrego, DO [address] [place], [place] [id number] 05/12/2025 9:10 AM EDT Routine NOMS BCP OB [address] [place] [address] Mik Borrego, DO [facility] [place], [facility]11 05/19/2025 9:40 AM EDT Routine NOMS BCP OB [address] [place] [address] Mik Borrego, [address] [place] [address] documented as of this encounter Visit Diagnoses Not on filedocumented in this encounter
--- OUTSIDE RECORDS SUMMARY | 2025-04-29 14:54 | XMS_ITS | Encounter Summary ---
Author Organization [facility] Address [address] [place] [address] Care Team Providers Care Milk Processing Worker Name Role Phone Unavailable Primary Care Provider Unavailabl e Encounter Details Date Type Department Care Team (Late st Contact Info) Description 02/05/2025 Abstract [facility]OM[facility] BCP OB [address] [place] [address] Mik Borrego DO [facility] [place], [facility]11 Social History Tobacco Use Types Packs/Day [...] AM EDT Routine NOMS BCP OB [address] [place] [address] Mik Borrego, DO [address] [place], [place] [id number] 05/12/2025 9:10 AM EDT Routine NOMS BCP OB [address] [place] [address] Mik Borrego, DO [facility] [place], [facility]11 05/19/2025 9:40 AM EDT Routine NOMS BCP OB [address] [facility] [place] [address] Mik Borrego, [address] [place] [address] documented as of this encounter Visit Diagnoses Not on filedocumented in this encounter
--- OUTSIDE RECORDS SUMMARY | 2025-04-29 14:54 | XMS_ITS | Encounter Summary ---
Author Organization [facility] Address [address] [place] [address] Care Team Providers Care Cnmt Name Role Phone Unavailable Primary Care Provider Unavailabl e Encounter Details Date Type Department Care Team (Late st Contact Info) Description 02/03/2025 Abstract NOMS BCP OB [address] [place] [address] Mik Borrego DO [facility] [place], [facility]11 Social History Tobacco Use Types Packs/Day [...] Routine NOMS BCP OB [address] [place] [address] Mik Borrego, DO [address] [place], [facility]11 05/12/2025 9:10 AM EDT Routine NOMS BCP OB [address] [place] [address] Mik Borrego DO [facility] [place], [facility]11 05/19/2025 9:40 AM EDT Routine NOMS BCP OB [address] [facility] [place] [address] Mik Borrego, [address] [place] [address] documented as of this encounter Visit Diagnoses Not on filedocumented in this encounter
--- OUTSIDE RECORDS SUMMARY | 2025-04-29 14:54 | XMS_ITS | Encounter Summary ---
Author Organization [facility] Address [address] [place] [address] Care Team Providers Care Biomedical Engineering Supervisor Name Role Phone Unavailable Primary Care Provider Unavailabl e Encounter Details Date Type Department Care Team (Late st Contact Info) Description 01/22/2025 Abstract NOMS BCP OB [address] [place] [address] Mik Borrego DO [facility] [place], [facility]11 Social History Tobacco Use Types Packs/Day Years [...] Routine NOMS BCP OB [address] [place] [address] Mik Borrego, DO [address] [place], [place] [id number] 05/12/2025 9:10 AM EDT Routine NOMS BCP OB [address] [place] [address] Mik Borrego, DO [facility] [place], [facility]11 05/19/2025 9:40 AM EDT Routine NOMS BCP OB [address] [facility] [address] Mik Borrego, [address] [place] [address] documented as of this encounter Visit Diagnoses Not on filedocumented in this encounter
--- OUTSIDE RECORDS SUMMARY | 2025-04-29 14:54 | XMS_ITS | Encounter Summary ---
Author Organization [facility] Address [address] [place] [address] Care Team Providers Care Data Warehousing Specialist Name Role Phone Unavailable Primary Care Provider Unavailabl e Encounter Details Date Type Department Care Team (Late st Contact Info) Description 03/04/2025 Abstract [facility] [address] [facility] [place] [address] Juanis Esparza MA Social History Tobacco [...] Routine [facility] [address] [place] [address] Mik Borrego [address] [place] [address] 05/12/2025 9:10 AM EDT [place] [address] Mik Borrego DO [address] [place] [address] [place] [address] 05/19/2025 9:40 AM EDT Routine [facility] [address] [place] [phone] Mik Borrego, DO [address] [facility] [address] Maria [place]ores [place], [place] [id number] documented as of this encounter Visit Diagnoses Not on filedocumented in this encounter
--- OUTSIDE RECORDS SUMMARY | 2025-04-29 14:54 | XMS_ITS | Encounter Summary ---
Author Organization [facility] Address [address] [place] [address] Care Team Providers Care Import/Export Specialist Name Role Phone Unavailable Primary Care Provider Unavailabl e Encounter Details Date Type Department Care Team (Late st Contact Info) Description 01/21/2025 Abstract [facility] OB [address] [place] [address] Mik Borrego DO [facility] [place], [facility]11 Social History Tobacco Use Types Packs/Day [...] Mik Borrego, DO [address] [place], [place] [id number] 05/12/2025 9:10 AM EDT Routine [facility] OB [address] [place] [address] Mik Borrego, DO [facility] [place], [facility]11 05/19/2025 9:40 AM EDT Routine [facility] OB [address] [facility] [place] [address] Mik Borrego, [address] [place] [address] documented as of this encounter Visit Diagnoses Not on filedocumented in this encounter
--- OUTSIDE RECORDS SUMMARY | 2025-04-29 14:54 | XMS_ITS | Clinical Summary ---
Author Organization [facility] Healthcare Address [address] [place] [address] Care Team Providers Care Whittling Room Operator Name Role Phone Unavailable Primary Care Provider Unavailabl e Allergies Active Allergy Reactions Criticality Noted Date Comments Gelatin 12/06/2024 Metformin High 05/06/2024 Other Reaction(s): Rhabdomyolysis Other Reaction(s): Other (See Comments) Intolerance, rhabdomylosis Metformin Hcl 12/30/2024 Other Reaction(s): diarrhea Metformin Hcl Er 09/16/2024 Other Reaction(s): Rhabdomyolsis Other 11/25/2024 Gelatin Phentermine Shortness of breath High 09/16/2024 Other Reaction(s): Hives Pollen Extract Unknown 12/30/2024 Other Reaction(s): Unknown Prednisone Rash Low 12/30/2024 Propranolol 12/30/2024 Other Reaction(s): asthma flare up Sulfites 05/06/2024 Dulaglutide Hives 05/06/2024 Medications albuterol HFA 90 mcg/act inhaler 4 Active cetirizine (ZyrTEC) 10 MG tablet Take by mouth Active Alcohol Swabs (Alcohol Prep Pad) 70 % padsIndications: Gestational diabetes mellitus (GDM), antepartum, gestational diabetes method of control unspecified (HHS-HCC),Elevat ed glucose tolerance test Apply 1 Pad topically Daily Use four times daily to check FSBS. 150 each 3 5 Active Blood Glucose Monitoring Suppl (D-Care Glucometer) w/Device kitIndications:G estational diabetes mellitus (GDM), antepartum, gestational diabetes method of control unspecified (HHS-HCC),Elevat ed glucose tolerance test 1 kit Daily Use four times daily to check FSBS. In the morning prior to breakfast & 1 hour after each meal for a total of 4times daily. 1 kit 5 01/28/20 26 Active Alcohol Swabs (Alcohol Prep Pad) 70 % padsIndications: Gestational diabetes mellitus (GDM), antepartum, gestational diabetes method of control unspecified (HHS-HCC),Elevat ed glucose tolerance test Apply 1 Pad topically Daily Use four times daily to check FSBS. 150 each 3 5 Active Blood Glucose Monitoring Suppl (ReliOn True Met Air Gluc Meter) w/Device kitIndications:G estational diabetes mellitus (GDM), antepartum, gestational diabetes method of control unspecified (HHS-HCC),Elevat ed glucose tolerance test 1 kit in the morning and 1 kit at noon and 1 kit in the evening and 1 kit before bedtime. 1 kit 5 04/29/20 25 Active glucose blood (RELION GLUCOSE TEST STRIPS) test stripIndications :Gestational diabetes mellitus (GDM), antepartum, gestational diabetes method of control unspecified (HHS-HCC),Elevat ed glucose tolerance test Use four times daily to check FSBS as directed. 150 each 12 5 01/30/20 26 Active NIFEdipine XL (Procardia XL) 60 MG 24 hr tabletIndication s:Blood pressure check Take 1 tablet (60 mg) by mouth Daily Do not crush, chew, or split. 30 tablet 3 5 06/03/20 25 Active MAGnesium-Oxide 400 (240 Mg) MG tabletIndication s: headache, antepartum (HHS-HCC) Take 1 tablet by mouth once daily 30 tablet 5 Active insulin NPH, Isophane, (HumuLIN N,NovoLIN N) 100 UNIT/ML injectionIndicat ions:Gestational Diabetes Inject 5 Units under the skin in the morning and 5 Units in the evening. Inject before meals. 3 mL 5 05/08/20 25 Active insulin syringe 29G X 1/2 0.5 mL miscIndications: Gestational diabetes mellitus (GDM), antepartum, gestational diabetes method of control unspecified (HHS-HCC) Use as instructed 100 each 4 5 Active insulin regular (HumuLIN R,NovoLIN R) 100 UNIT/ML injectionIndicat ions:Gestational diabetes mellitus (GDM), antepartum, gestational diabetes method of control unspecified ([facility]) 5 units sub q in the am and 5 units sub q in the evening 3 mL 3 5 04/08/20 26 Active Active Problems Problem Noted Date Diagnosed Date Insulin controlled gestation al diabetes mellitus (GDM) in third trimester ([facility]) 04/21/2025 Multigravida of advanced mat ernal age in third trimester ([facility]) 04/21/2025 Hypertension 04/21/2025 Third trimester ([facility]) 04/21/2025 Elevated blood pressure affe cting , antepartum ([facility]) 01/16/2025 headache, antepartum ([facility]) 025 Vaginal bleeding affecting early ([facility]) 11/06/2024 Estimated Date of Delivery Comme nts Yes 06/12/2025 Based on Ultraso und Encounters Date Type Department Care Team Description 04/23/2025 Clinisync Result Encounter [facility] External Department Unsolicited Neha Borrego DO 04/22/2025 Abstract [facility]OM[facility] [address] [place] [address] Neha Borrego DO 04/21/2025 3:20 PM EDT Routine [facility] [place] [address] [place] [address] Neha Borrego, Third trimester ([facility]); 32 weeks gestation of ([facility]); Insulin controlled gestational diabetes mellitus (GDM) in third trimester ([facility]); Multigravida of advanced maternal age in third trimester ([facility]); Hypertension, unspecified type 04/21/2025 Bamboo flowsheet [facility] [place] [address] [place] [address] Neha Borrego DO 04/14/2025 9:00 AM EDT Routine [facility] [place] [address] [place] [address] Neha Borrego, Third trimester ([facility]); 31 weeks gestation of ([facility]) 04/14/2025 Bamboo flowsheet [facility] OB [address] [place] [address] Neha Borrego, 04/09/2025 Telephone [facility] OB [address] [place] [address] Mima Owusu ADDICTION COUNSELOR 04/08/2025 11:10 AM EDT Routine [facility] OB [address] [place] [address] [place] [address] Neha Borrego, Third trimester ([facility]); 30 weeks gestation of ([facility]); Gestational diabetes mellitus (GDM), antepartum, gestational diabetes method of control unspecified ([facility]) 04/08/2025 Bamboo flowsheet [facility] OB [address] [place] [address] Neha Borrego, 04/01/20[address] [address] [place] [address] [place] 03/24/2025 11:10 AM EDT Routine [facility] OB [address] [place] [address] [place] [address] Neha Borrego, Gestational diabetes mellitus (GDM), antepartum, gestational diabetes method of control unspecified ([facility]); Multigravida of advanced maternal age in third trimester ([facility]); Third trimester ([facility]); 28 weeks gestation of ([facility]) 03/24/2025 Bamboo flowsheet [facility] OB [address] [place] [address] [place] [address] Neha Borrego, 03/21/2025 Refill [facility] OB [address] [place] [address] Neha Borrego DO headache, antepartum ([facility]) 03/04/2025 Abstract [facility] OB [address] [place] [address] [place] [address] Juanis Esparza MA 02/24/2025 10:20 AM EDT Routine [facility] OB [address] [place] [address] Neha Borrego, DO Second trimester ([facility]); 24 weeks gestation of ([facility]) 02/24/2025 Bamboo flowsheet [facility] [address] [place] [address] Neha Borrego, DO 02/18/2025 Telephone [facility] OB [address] [place] [address] Larisa Chowdary, ALYSHA 02/05/2025 Abstract [facility] OB [address] [place] [address] Neha Borrego, DO 02/04/2025 Abstract [facility] OB [address] [place] [address] Neha Borrego, DO 02/04/2025 Abstract [facility] OB [address] [place] [address] Neha Borrego, DO 02/04/2025 Telephone [facility] OB [address] [place] [address] Neha Borrego, DO 02/03/2025 Abstract [facility] OB [address] [place] [address] Neha Borrego, DO 02/03/2025 Telephone [facility] OB [address] [place] [address] Neha Borrego, DO 01/29/2025 Telephone [facility] OB [address] [place] [address] Larisa Chowdary MA 01/29/2025 Refill [facility] OB [address] [place] [address] Larisa Chowdary MA from Last 3 Months Family History Medical History Relation Name Comments renal cell carcinoma Father Colon cancer Father's Brother Breast cancer Father's Sister Hypothyroidism Other Polycystic ovary syndrome Other Diabetes Paternal Grandfather Relation Name Status Comments Father Father's Brother Father's Sister Other Paternal Grandfather Social History Tobacco Use Types Packs/Day Years Used Date Smoking Tobacco: Never Assessed Estimated Date of Delivery Comme nts Yes 06/12/2025 Based on Ultraso und Sex and Gender Information Value Date Recorded Sex Assigned at Not on file Legal Sex Female 6:40 PM EDT Gender Identity Not on file Sexual Orientation Not on file Last Filed Vital Signs Vital Sign Reading Time Taken Comments Blood Pressure 124/80 04/21/2025 3:39 PM EDT Pulse - - Temperature - - Respiratory Rate - - Oxygen Saturation - - Inhaled Oxygen Concentration - - Weight 98 kg (216 lb) 04/21/2025 3:39 PM EDT Height 170.2 cm (5' 7 ) 05/06/2024 3:23 PM EDT Body Mass Index 33.83 05/06/2024 3:23 PM EDT Plan of Treatment Upcoming Encounters Date Type Department Care Team (Late st Contact Info) Description 05/05/2025 9:10 AM EDT Routine [facility] OB [address] [place] [address] Neha Borrego, DO [address] [place] [address] Dr Maria Dolores [place], [facility]11 05/12/2025 9:10 AM EDT Routine [facility] OB [address] [place] [address] Neha Borrego, DO [address] [place] [address] 05/19/2025 9:40 AM EDT Routine [facility] OB [address] [facility] [place] [address] Neha Borrego, DO [address] [place] [address] [place] [address] Health Maintenance Due Date Last Done Comments Influenza Vaccine (#1) 2025 Cervical Cancer Screening 09/16/2029 HPV/Cotest 09/16/2029 08/05/2020 Pap Smear 09/16/2029 09/16/2024 Procedures Procedure Name Priority Date/Time Associated Diagnosis Comments US OB BPP W NON-STRESS 04/23/2025 8:03 AM EDT POCT URINALYSIS DIPSTICK Routine 04/21/2025 3:40 PM EDT Third trimester ([facility]) POCT URINALYSIS DIPSTICK Routine 04/14/2025 9:09 AM EDT Third trimester ([facility]) 31 weeks gestation of ([facility]) POCT URINALYSIS DIPSTICK Routine 04/08/2025 11:35 AM EDT Third trimester ([facility]) POCT URINALYSIS DIPSTICK Routine 03/24/2025 11:50 AM EDT Gestational diabetes mellitus (GDM), antepartum, gestational diabetes method of control unspecified ([facility]) POCT URINALYSIS DIPSTICK Routine 02/24/2025 10:57 AM EDT Second trimester ([facility]) 24 weeks gestation of ([facility]) PAP SMEAR Routine 09/16/2024 12:00 AM EST THINPREP TIS PAP REFLEX HPV MRNA E6/E7 (29636) Routine 08/05/2020 from Last 3 Months or Most Recently Relevant to Health Maintenance Results * US OB BPP W NON-STRESS (04/23/2025 8:03 AM EDT) Anatomical Region Laterality Modality Other 04/23/2025 8:03 AM EDT Narrative 04/23/2025 9:46 AM EDT [address] [address] Ultrasound Report Signed Patient: LE WEEMS MR#: [id number] : 1990 Acct:[id number] Age/Sex: 34 / F ADM Date: 04/22/25 Loc: US Attending Dr: Neha Borrego D.O. Ordering Physician: Neha Borrego D.O. Date of Service: 04/22/25 Procedure(s): US OB BPP w non-stress Accession Number(s): [id number] cc: Neha Borrego D.O.; Physician,Non-Staff [place] [id number] Patient Name: LE EWEMS MRN: [id number] date: 1990 Sex: F Assigned Patient Location: US Current Patient Location: Accession/Order Number: [id number] Exam Date: 04/23/2025 08:01 Report Date: 04/23/2025 [...] Olivares M.D. 04/23/2025 8:03 AM Dictation Location: [place] [address] Electronically authenticated by: [id number] Y Date: 04/23/2025 08:03 Dictated By: Mariam Olivares M.D. Signed By: 04/23/25 0946 DD/ 2 TD/TT: Helpdesk Administrator: Procedure Note Radiology, Radiologist, - 04/23/2025 [place] [address] Ultrasound Report Signed Patient: LE WEEMSMR#: [id number] : 1990Acct:[id number] Age/Sex: 34 / FADM Date: 04/22/25 Loc: US Attending Dr: Neha Borrego D.O. Ordering Physician: Neha Borrego D.O. Date of Service: 04/22/25 Procedure(s): US OB BPP w non-stress Accession Number(s): [id number] cc: Neha Borrego D.O.; Physician,Non-Staff [place] [address] Patient Name: LE WEEMS MRN: [facility]:[id number] date: 1990 Sex: F Assigned Patient Location: US Current Patient Location: Accession/Order Number: [id number] Exam Date: 04/23/2025 08:01 Report Date: 04/23/2025 [...] amniotic fluid greater than 2 cm [Y] 2/ SARA: 13.5 cm. This is in normal range. Total score: 05/30 US/US OB BPP w non-stress IMPRESSION: NORMAL BIOPHYSICAL PROFILE POTENTIAL NUCHAL CORD. Impression dictated by: Mariam Olivares M.D. 04/23/2025 8:03 AM Dictation Location: [place] [address] Electronically authenticated by: [id number] Y Date: 508:03 Dictated By: Mariam Olivares M.D. Signed By:04/23/25 0946 DD/ 0803 TD/TT: Helpdesk Administrator: Neha Elmo DO [facility] Final Result * POCT urinalysis dipstick manually resulted (04/21/2025 3:40 PM EDT) Only the most recent of5 resultswithin the time period is included. Color, UA Yellow Clarity, UA Clear Glucose, [...] - Positive Urine 04/21/2025 3:40 PM EDT us Neha Elmo DO POINT OF CARE TEST ENTER/EDIT OR DERABLES Final Result * Pap Smear (09/16/2024 12:00 AM EST) Swab Cervical swab / Unknown Neha Elmo DO LAB CYTOLOGY ORDERABLES Final Re sult EXTERNAL LAB * THINPREP TIS PAP REFLEX HPV MRNA E6/E7 (37585) (08/05/2020) CLINICAL INFORMATION: None given [facility] LMP: None given [facility] PREV. PAP: None given [facility] PREV. BX: None given [facility] SOURCE: None given [facility] STATEMENT OF ADEQUACY: SEE COMMENT [facility] Comment: Satisfactory for evaluation. Endocervical/transformation zone component present. INTERPRETATION /RESULT: Negative for intraepithelial lesion or malignancy. [facility] COMMENT: This Pap test has been evaluated with computer assisted technology. [facility] CYTOTECHNOLOGI ST: SEE COMMENT [facility] Comment: [facility], CT(ASCP) CT screening location: [place] [address]. COMMENT SEE COMMENT [facility] Comment: EXPLANATORY NOTE: The Pap is a screening test for cervical cancer. It is not a diagnostic test and is subject to false negative and false positive results. It is most reliable when a satisfactory sample, regularly obtained, is submitted with relevant clinical findings and history, and when the Pap result is evaluated along with historic and current clinical information. 08/05/2020 Ty Pulido MD [facility] Final Result [facility] from Last 3 Months or Most Recently Relevant to Health Maintenance Insurance [facility]
--- OUTSIDE RECORDS SUMMARY | 2025-04-29 14:54 | XMS_ITS | Encounter Summary ---
Author Organization [facility] Address [address] [place] [address] Care Team Providers Care Party Plan Sales Unit Advisor Name Role Phone Unavailable Primary Care Provider Unavailabl e Encounter Details Date Type Department Care Team (Late st Contact Info) Description 01/17/2025 Abstract [facility] BCP OB [address] [place] [address] Mik Borrego DO [facility] [place], [facility]11 Social History Tobacco Use Types Packs/Day Years [...] Routine [facility] B[facility] OB [address] [place] [address] Mik Borrego, DO [address] [place], [place] [id number] 05/12/2025 9:10 AM EDT Routine [facility] OB [address] [place] [address] Mik Borrego, DO [facility] [place], [facility]11 05/19/2025 9:40 AM EDT Routine [facility] OB [address] [facility] [place] [address] Mik Borrego, [address] [place] [address] documented as of this encounter Visit Diagnoses Not on filedocumented in this encounter
--- OUTSIDE RECORDS SUMMARY | 2025-04-29 14:56 | XMS_ITS | Encounter Summary ---
Author Organization [facility] Address [address] [place] [address] Care Team Providers Care Dermatopathologist Name Role Phone Unavailable Primary Care Provider Unavailabl e Encounter Details Date Type Department Care Team (Late st Contact Info) Description 09/16/2024 Abstract [facility] OB [address] [place] [address] Mik Borrego DO [facility] [place], [facility]11 Social History Tobacco Use Types Packs/Day [...] 9:10 AM EDT Routine [facility] BCP OB [facility] [place] [address] Mik Borrego DO [facility] [place], [place] [id number] 05/12/2025 9:10 AM EDT [place] [address] Mik Borrego [facility] [place], [place] [id number] 05/19/2025 9:40 AM EDT Routine [facility] OB [address] [facility] [place] [address] Mik Borrego DO [address] [place] [address] [place] [address] documented as of this encounter Visit Diagnoses Not on filedocumented in this encounter
--- NOTE | 2025-04-29 15:06 | US_ITS ---
The [address] [address] Patient Name: LE STACK MRN: [facility]:[id number] date: 1990 Sex: F Assigned Patient Location: [facility] Current Patient Location: Accession/Order Number: [id number] Exam Date: 04/30/2025 07:02 Report Date: 04/30/2025 07:10 At the request of: NEHA CAMPBELL DO Procedure: US OB BPP w non-stress CLINICAL INFORMATION: GDM ULTRASOUND OB GROWTH COMPARISON: 11/08/2024 There is a single live intrauterine gestation in cephalic presentation. cardiac and somatic activity are noted. The heart rate measures 139 bpm. The amniotic fluid volume measures 14.2 cm which is normal. A nuchal cord is possible. The following measurements were obtained: Biparietal diameter 8.8 cm 35 weeks 2 days 88% Head circumference 33.0 cm 37 weeks 4 days 95% Abdominal circumference 34.3 cm 38 weeks 1 day >97% Femur length 6.9 cm 35 weeks 2 days 80% The composite ultrasound age based these measurements is 36 weeks 0 days +/- 1 week 0 days. The estimated date of delivery is 05/27/2025. The date of delivery based on the comparison ultrasound is 06/06/2025 and by menstrual period, 06/12/2025. Today's estimated weight is 6 lbs. 14 oz. +/- 1 lb. 0 oz. (>97%). US/US OB BPP w non-stress IMPRESSION: SINGLE LIVE INTRAUTERINE GESTATION WITH TODAY'S ULTRASOUND AGE OF 36 WEEKS 0 DAYS. GREATER THAN EXPECTED INTERVAL GROWTH. : COMPARISON: 04/22/2025 FINDINGS: TONE: 1 or more episodes of activity extension and flexion of extremity or opening and closing of the hand [Y] 2/2 GROSS BODY MOVEMENTS: 3 or more discrete body or limb movements [Y] 2/2 BREATHING MOVEMENTS: 1 or more episodes of breathing lasting at least 30 seconds [Y] 2/2 SARA: A single deepest vertical pocket of amniotic fluid greater than 2 cm [Y] 2/2 SARA: 14.2 cm Total score: 05/30 IMPRESSION: NORMAL BIOPHYSICAL PROFILE Impression dictated by: Mariam Olivares M.D. 04/30/2025 7:10 AM Dictation Location: [place] [address] Electronically authenticated by: [id number] Y Date: 04/30/2025 07:10
--- NOTE | 2025-04-29 15:10 | US_ITS ---
The [address] [address] Patient Name: LE STACK MRN: [facility]:[id number] date: 1990 Sex: F Assigned Patient Location: Current Patient Location: Accession/Order Number: [id number] Exam Date: 04/30/2025 07:02 Report Date: 04/30/2025 07:10 At the request of: NEHA CAMPBELL DO Procedure: US OB BPP w non-stress CLINICAL INFORMATION: GDM ULTRASOUND OB GROWTH COMPARISON: 11/08/2024 There is a single live intrauterine gestation in cephalic presentation. cardiac and somatic activity are noted. The heart rate measures 139 bpm. The amniotic fluid volume measures 14.2 cm which is normal. A nuchal cord is possible. The following measurements were obtained: Biparietal diameter 8.8 cm 35 weeks 2 days 88% Head circumference 33.0 cm 37 weeks 4 days 95% Abdominal circumference 34.3 cm 38 weeks 1 day >97% Femur length 6.9 cm 35 weeks 2 days 80% The composite ultrasound age based these measurements is 36 weeks 0 days +/- 1 week 0 days. The estimated date of delivery is 05/27/2025. The date of delivery based on the comparison ultrasound is 06/06/2025 and by menstrual period, 06/12/2025. Today's estimated weight is 6 lbs. 14 oz. +/- 1 lb. 0 oz. (>97%). US/US OB growth IMPRESSION: SINGLE LIVE INTRAUTERINE GESTATION WITH TODAY'S ULTRASOUND AGE OF 36 WEEKS 0 DAYS. GREATER THAN EXPECTED INTERVAL GROWTH. : COMPARISON: 04/22/2025 FINDINGS: TONE: 1 or more episodes of activity extension and flexion of extremity or opening and closing of the hand [Y] 2/2 GROSS BODY MOVEMENTS: 3 or more discrete body or limb movements [Y] 2/2 BREATHING MOVEMENTS: 1 or more episodes of breathing lasting at least 30 seconds [Y] 2/2 SARA: A single deepest vertical pocket of amniotic fluid greater than 2 cm [Y] 2/2 SARA: 14.2 cm Total score: 8 IMPRESSION: NORMAL BIOPHYSICAL PROFILE Impression dictated by: Mariam Olivares M.D. 04/30/2025 7:10 AM Dictation Location: [place] [address] Electronically authenticated by: [id number] Y Date: 04/30/2025 07:10
[2025-04-29 15:51] VITALS: BP 158/97; PULSE 93
[2025-04-29 16:03] VITALS: BP 142/88; PULSE 96
== END 2025-04-29 16:16 | disposition home or self-care (01) ==
LOC: US 14:52 → FBC 15:01
PROVIDERS: Visit Provider Obstetrics & Gynecology
DX: O24.414 Gestational diabetes mellitus in pregnancy, insulin controlled (principal); Z3A.36 36 weeks gestation of pregnancy
CPT/HCPCS: 76816; 76818

== ENCOUNTER 2025-04-30 14:43 | Observation (INO) | payer BC, SELFPAY ==
--- OUTSIDE RECORDS SUMMARY | 2024-05-20 04:15 | XMS_ITS ---
Author Organization [facility] Address [address] [facility] [place] [address] Care Team Providers Care Shoe Cleaner Name Role Phone Olimpia Renee Primary Care Provider Steven Shane Unavailable [phone] REASON FOR VISIT MED RECHECK-AC Encounters Encounter Location Date Provider Diagnosis [facility] [address] [place] [address] 2023 Steven Shane Plan Of Treatment No Information Progress Notes * SEDALEDOB:1990 (34 yo F)Acc No.[id number]:05/20/2024 Behavioral Health Patient: LE ALCALA Provider: LARRY Sanders :1990 A ge:33 Y S ex:Female Date:05/20/2024 Address:[address] [place], [place] [id number] Pcp:Olimpia Renee Subjective: * Chief Complaints: * 1 . MED RECHECK-AC. * Medical History: Objective: * Vitals: Assessment: Plan: * Treatment: * Images: * Electronic signature of LARRY Linder on 04/30/2025 at 10:43 AM EDT Sign off status: Pending * Provider: LARRY Sanders Date: 0 05/20/2024 Generated for Printi ng/Fachristinag/eTransmitting on: 0 04/30/2025 10:43 AM EDT
--- OUTSIDE RECORDS SUMMARY | 2025-04-21 15:20 | XMS_ITS | Encounter Summary ---
Author Organization [facility] Address [address] [place] [address] Care Team Providers Care Corner Block Cutter Name Role Phone Unavailable Primary Care Provider Unavailabl e Reason for Visit * Reason Comments Routine Visit Encounter Details Date Type Department Care Team ([facility] Contact Info) Description 04/21/2025 3:20 PM EDT Routine [facility] [address] [place] [phone] Mik Borrego [address] [place] [address] Third trimester ([facility]); 32 weeks gestation of ([facility]); Insulin controlled gestational diabetes mellitus (GDM) in third trimester ([facility]); Multigravida of advanced maternal age in third trimester ([facility]); Hypertension, unspecified type Social History Tobacco Use [...] Diagnosis Date Noted Vaginal bleeding affecting early ([facility]) 11/06/2024 headache, antepartum ([facility]) 12/25/2024 Elevated blood pressure affecting , antepartum ([facility]) 01/16/2025 Resolved Ambulatory Problems Diagnosis Date Noted No Resolved Ambulatory Problems Past Medical History: Diagnosis Date ADHD (attention deficit hyperactivity disorder) Anxiety Gestational diabetes ([facility]) Hypertension Insulin resistance PCOS (polycystic ovarian syndrome) HISTORY PAST MEDICAL HISTORY SOCIAL HISTORY Past Medical History: Diagnosis Date ADHD (attention deficit hyperactivity disorder) Anxiety Gestational diabetes ([facility]) Hypertension Insulin resistance PCOS (polycystic ovarian syndrome) [...] ASSESSMENT & PLAN ICD-10-CM 1. Third trimester ([facility]) Z34.93 2. 32 weeks gestation of ([facility]) Z3A.32 Return OB: Patient presents today [...] AM EDT Routine [facility] [address] [phone] Mik Borrego DO [facility] [place] [address] 05/12/2025 9:10 AM EDT [place] [address] Mik Borrego DO [facility] [place] [address] 05/19/2025 9:40 AM EDT [place] [address] Mik Borrego DO [address] [place] [address] Scheduled Orders Name Type Priority Associated Diagnoses Orde r Schedule US OB follow up transabdominal approach Imaging Routine Insulin controlled gestational diabetes mellitus (GDM) in third trimester ([facility]) Expected: 04/21/2025, Expires: 08/21/2025 documented as of this encounter Procedures Procedure Name Priority Date/Time Associated Diagnosis Comments POCT URINALYSIS DIPSTICK Routine 04/21/2025 3:40 PM EDT Third trimester ([facility]) documented in this encounter Results * POCT [...] this encounter Visit Diagnoses Diagnosis Third trimester ([facility]) state, incidental 32 weeks gestation of ([facility]) Insulin controlled gestational diabetes mellitus (GDM) in third trimester ([facility]) Multigravida of advanced maternal age in third trimester ([facility]) Hypertension, unspecified type documented in this encounter
[2025-04-30] VITALS (7 sets, daily range): BP systolic 118–131; BP diastolic 70–87; PULSE 83–92; TEMP 36.6
--- OUTSIDE RECORDS SUMMARY | 2025-04-30 14:00 | XMS_ITS | Encounter Summary ---
Author Organization [facility] Address [address] [place] [address] Care Team Providers Care Senior Staff Accountant Name Role Phone Unavailable Primary Care Provider Unavailabl e Reason for Visit * Reason Comments Routine Visit Blood Pressure Check Encounter Details Date Type Department Care Team (Late st Contact Info) Description 04/30/2025 2:00 PM EDT Routine [facility] BCP OB [address] [facility] [place] [phone] Lindsey Guajardo PA [address] [facility] [place] [address] 33 weeks gestation of (HHS-HCC); Third trimester [...] to check FSBS. Blood Glucose Monitoring Suppl ([employer] Glucometer) w/Device kit 1 kit, Does not [...] bleeding affecting early ([facility]) 11/06/2024 headache, antepartum ([facility]) 12/25/2024 Elevated blood pressure affecting , antepartum ([facility]) 01/16/2025 Insulin controlled gestational diabetes mellitus (GDM) in third trimester ([facility]) 04/21/2025 Multigravida of advanced maternal age in third trimester ([facility]) 04/21/2025 Hypertension 04/21/2025 Third trimester ([facility]) 04/21/2025 Resolved Ambulatory Problems Diagnosis Date Noted No Resolved Ambulatory Problems Past Medical History: Diagnosis Date ADHD (attention deficit hyperactivity disorder) Anxiety Gestational diabetes ([facility]) Insulin resistance PCOS (polycystic ovarian syndrome) HISTORY PAST MEDICAL HISTORY SOCIAL HISTORY Past Medical History: Diagnosis Date ADHD (attention deficit hyperactivity disorder) Anxiety Gestational diabetes ([facility]) Hypertension Insulin resistance PCOS (polycystic ovarian syndrome) [...] weeks gestation of ([facility]) Z3A.33 POCT urinalysis dipstick manually resulted 2. Third trimester ([facility]) Z34.93 POCT urinalysis dipstick manually resulted 3. High blood pressure affecting in third trimester, antepartum ([facility]) O16.3 Patient presents today for headaches, [...] [address] [facility] [place] [phone] Mik Borrego, [address] [place] [address] 05/12/2025 9:10 AM EDT Routine [facility] BCP OB [address] [place], [place] [address] [phone] Mik Borrego, [address] [place] [address] 05/19/2025 9:40 AM EDT Routine [facility] BCP OB [address] [place] [address] [place] [phone] Mik Borrego, [address] [place], [place] [phone] Scheduled Orders Name Type Priority Associated Diagnoses Orde r Schedule Creatinine Lab Routine induced hypertension, antepartum ([facility]) Expected: 04/30/2025 (Approximate), Expires: 04/30/2026 Protein, urine, 24 hour Lab Routine induced hypertension, antepartum ([facility]) Expected: 04/30/2025 (Approximate), Expires: 04/30/2026 Pt and ptt Lab Routine induced hypertension, antepartum ([facility]) Expected: 04/30/2025, Expires: 04/30/2026 CBC and differential Lab Routine induced hypertension, antepartum ([facility]) Expected: 04/30/2025 (Approximate), Expires: 04/30/2026 Uric acid Lab Routine induced hypertension, antepartum ([facility]) Expected: 04/30/2025 (Approximate), Expires: 04/30/2026 Lactate dehydrogenase Lab Routine induced hypertension, antepartum ([facility]) Expected: 04/30/2025, Expires: 04/30/2026 ALT Lab Routine induced hypertension, antepartum ([facility]) Expected: 04/30/2025 (Approximate), Expires: 04/30/2026 AST Lab Routine induced hypertension, antepartum ([facility]) Expected: 04/30/2025 (Approximate), Expires: 04/30/2026 BUN Lab Routine induced hypertension, antepartum ([facility]) Expected: 04/30/2025, Expires: 04/30/2026 documented as of this encounter Procedures Procedure Name Priority Date/Time Associated Diagnosis Comments POCT URINALYSIS DIPSTICK Routine 04/30/2025 2:19 PM EDT 33 weeks gestation of ([facility]) Third trimester ([facility]) documented in this encounter Results * (ABNORMAL) [...]
--- OUTSIDE RECORDS SUMMARY | 2025-04-30 14:48 | XMS_ITS | Encounter Summary ---
Author Organization [facility] Address [address] [place] [address] Care Team Providers Care Livestock Exhibitor Name Role Phone Unavailable Primary Care Provider Unavailabl e Encounter Details Date Type Department Care Team (Late st Contact Info) Description 04/30/2025 Clinisync Result Encounter NOM[facility] External Department Unsolicited Neha Borrego, DO [address] [place], [facility]11 Social History Tobacco Use Types Packs/Day [...] Routine [facility] BCP OB [address] [place] [phone] Neha Borrego, DO [address] [place], [facility] 05/12/2025 9:10 AM EDT Routine [facility] BCP OB [address] [place] [phone] Neha Borrego, DO [address] [place], [facility] 05/19/2025 9:40 AM EDT Routine [facility] BCP OB [address] [facility] [address] Neha Borrego DO [address] [facility] [place] [address] documented as of this encounter Procedures Procedure Name Priority Date/Time Associated Diagnosis Comments US OB GROWTH 04/30/2025 7:10 AM EDT documented in this encounter Results * US OB GROWTH (04/30/2025 7:10 AM EDT) Anatomical Region Laterality Modality Other 04/30/2025 7:10 AM EDT Narrative 04/30/2025 7:13 AM EDT [address] [address] Ultrasound Report Signed Patient: LE WEEMS MR#: [id number] : 1990 Acct:[id number] Age/Sex: 34 / F ADM Date: 04/29/25 Loc: US Attending Dr: Neha Borrego D.O. Ordering Physician: Neha Borrego D.O. Date of Service: 04/29/25 Procedure(s): US OB growth Accession Number(s): [id number] cc: Neha Borrego D.O.; Physician,Non-Staff M.DNikos The [address] [address] Patient Name: LE WEEMS MRN: [id number] date: 1990 Sex: F Assigned Patient Location: Current Patient Location: Accession/Order Number: [id number] Exam Date: 04/30/2025 07:02 Report Date: 04/30/2025 07:10 At the request of: NEHA BORREGO DO Procedure: US OB BPP w non-stress CLINICAL INFORMATION: GDM ULTRASOUND OB GROWTH COMPARISON: 11/08/2024 There is a single live intrauterine gestation in cephalic presentation. cardiac and somatic activity are noted. The heart rate measures 139 bpm. The amniotic fluid volume measures 14.2 cm which is normal. A nuchal cord is possible. The following measurements were obtained: Biparietal diameter 8.8 cm 35 weeks 2 days 88% Head circumference 33.0 cm 37 weeks 4 days 95% Abdominal circumference 34.3 cm 38 weeks 1 day >97% Femur length 6.9 cm 35 weeks 2 days 80% The composite ultrasound age based these measurements is 36 weeks 0 days +/- 1 week 0 days. The estimated date of delivery is 05/27/2025. The date of delivery based on the comparison ultrasound is 06/06/2025 and by menstrual period, 06/12/2025. Today's estimated weight is 6 lbs. 14 oz. +/- 1 lb. 0 oz. (>97%). US/US OB growth IMPRESSION: SINGLE LIVE INTRAUTERINE GESTATION WITH TODAY'S ULTRASOUND AGE OF 36 WEEKS 0 DAYS. GREATER THAN EXPECTED INTERVAL GROWTH. : COMPARISON: 04/22/2025 FINDINGS: TONE: 1 or more episodes of [...] greater than 2 cm [Y] 2/2 SARA: 14.2 cm Total score: 05/30 IMPRESSION: NORMAL BIOPHYSICAL PROFILE Impression dictated by: Mariam Olivares M.D. 04/30/2025 7:10 AM Dictation Location: [place] [address] Electronically authenticated by: [id number] Y Date: 04/30/2025 07:10 Dictated By: Mariam Olivares M.D. Signed By: 04/30/25 0713 DD/ 0710 TD/TT: Plant Pathologist: Procedure Note Radiology, Radiologist, - 04/30/[address] [address] Ultrasound Report Signed Patient: LE WEEMSMR#: [id number] : 1990Acct:[id number] Age/Sex: 34 / FADM Date: 04/29/25 Loc: US Attending Dr: Neha Borrego D.O. Ordering Physician: Neha Borrego D.O. Date of Service: 04/29/25 Procedure(s): US OB growth Accession Number(s): [id number] cc: Neha Borrego D.O.; Physician,Non-Staff M.David [place] [address] Patient Name: LE WEEMS MRN: [facility]:[id number] date: 1990 Sex: F Assigned Patient Location: US Current Patient Location: Accession/Order Number: [id number] Exam Date: 04/30/2025 07:02 Report Date: 04/30/2025 07:10 At the request of: NEHA BORREGO DO Procedure: US OB BPP w non-stress CLINICAL INFORMATION: GDM ULTRASOUND OB GROWTH COMPARISON: 11/08/2024 There is a single live intrauterine gestation in cephalic presentation. cardiac and somatic activity are noted. The heart rate measures 139 bpm.The amniotic fluid volume measures 14.2 cm which is normal. A nuchal cord is possible. The following measurements were obtained: Biparietal diameter 8.8 cm 35 weeks 2 days 88% Head circumference 33.0 cm 37 weeks 4 days 95% Abdominal circumference 34.3 cm 38 weeks 1 day >97% Femur length 6.9 cm 35 weeks 2 days80% The composite ultrasound age based these measurements is 36 weeks 0 days+/- 1 week 0 days. The estimated date of delivery is 05/27/2025. The date of delivery based on the comparison ultrasound is 06/06/2025 and by menstrual period, 06/12/2025. Today's estimated weight is 6 lbs. 14 oz. +/- 1lb. 0 oz. (>97%). US/US OB growth IMPRESSION: SINGLE LIVE INTRAUTERINE GESTATION WITH TODAY'S ULTRASOUND AGE OF 36 WEEKS0 DAYS. GREATER THAN EXPECTED INTERVAL GROWTH. : COMPARISON: 04/22/2025 FINDINGS: TONE: 1 or more episodes of [...] greater than 2 cm [Y] 2/2 SARA: 14.2 cm Total score: 05/30 IMPRESSION: NORMAL BIOPHYSICAL PROFILE Impression dictated by: Mariam Olivares M.D. 04/30/2025 7:10 AM Dictation Location: [place] [address] Electronically authenticated by: [id number] Y Date: 7:10 Dictated By: Mariam Olivares M.D. Signed By:04/30/25 0713 DD/ 0710 TD/TT: Plant Pathologist: Neha Borrego DO [facility] Final Result documented in this encounter Visit Diagnoses Not on filedocumented in this encounter
--- OUTSIDE RECORDS SUMMARY | 2025-04-30 14:48 | XMS_ITS | Encounter Summary ---
Author Organization [facility] Address [address] [place] [address] Care Team Providers Care Factory Engineer Name Role Phone Unavailable Primary Care Provider Unavailabl e Encounter Details Date Type Department Care Team (Late st Contact Info) Description 04/30/2025 Clinisync Result Encounter NOMS External Department Unsolicited Neha Borrego, DO [address] [place], [facility]11 Social History Tobacco Use Types Packs/Day [...] Routine [facility] BCP OB [address] [place] [phone] Neha Borrego, DO [address] [place], [facility] 05/12/2025 9:10 AM EDT Routine [facility] BCP OB [address] [place] [phone] Neha Borrego, DO [address] [place], [facility] 05/19/2025 9:40 AM EDT Routine [facility] BCP OB [address] [facility] [place] [phone] Neha Borrego DO [address] [facility] [place] [address] documented as of this encounter Procedures Procedure Name Priority Date/Time Associated Diagnosis Comments US OB BPP W NON-STRESS 04/30/2025 7:10 AM EDT documented in this encounter Results * US OB BPP W NON-STRESS (04/30/2025 7:10 AM EDT) Anatomical Region Laterality Modality Other 04/30/2025 7:10 AM EDT Narrative 04/30/2025 7:13 AM EDT [address] [address] Ultrasound Report Signed Patient: LE WEEMS MR#: [id number] : 1990 Acct:[id number] Age/Sex: 34 / F ADM Date: 04/29/25 Loc: US Attending Dr: Neha Borrego D.O. Ordering Physician: Neha Borrego D.O. Date of Service: 04/29/25 Procedure(s): US OB BPP w non-stress Accession Number(s): [id number] cc: Neha Borrego D.O.; Physician,Non-Staff M.D. The [address] [address] Patient Name: LE WEEMS MRN: [id number] date: 1990 Sex: F Assigned Patient Location: [facility] Current Patient Location: Accession/Order Number: [id number] Exam Date: 04/30/2025 07:02 Report Date: 04/30/2025 [...] 1 lb. 0 oz. (>97%). US/US OB BPP w non-stress IMPRESSION: SINGLE LIVE INTRAUTERINE GESTATION WITH TODAY'S [...] Olivares M.D. 04/30/2025 7:10 AM Dictation Location: [place] [address] Electronically authenticated by: [id number] Y Date: 04/30/2025 07:10 Dictated By: Mariam Olivares M.D. Signed By: 04/30/25 0713 DD/ 9 TD/TT: Hospital Cleaner: Procedure Note Radiology, Radiologist, - 04/30/2025 [place] [address] Ultrasound Report Signed Patient: LE WEEMSMR#: [id number] : 1990Acct:[id number] Age/Sex: 34 / FADM Date: 04/29/25 Loc: US Attending Dr: Neha Borrego D.O. Ordering Physician: Neha Borrego D.O. Date of Service: 04/29/25 Procedure(s): US OB BPP w non-stress Accession Number(s): [id number] cc: Neha Borrego D.O.; Physician,Non-Staff MHermelindo [place] [address] Patient Name: LE WEEMS MRN: [facility]:[id number] date: 1990 Sex: F Assigned Patient Location: [facility] Current Patient Location: Accession/Order Number: [id number] Exam Date: 04/30/2025 07:02 Report Date: 04/30/2025 [...] +/- 1lb. 0 oz. (>97%). US/US OB BPP w non-stress IMPRESSION: SINGLE LIVE INTRAUTERINE GESTATION WITH TODAY'S [...] [Y] 2/2 SARA: 14.2 cm Total score: 8/8 IMPRESSION: NORMAL BIOPHYSICAL PROFILE Impression dictated by: Mariam Olivares M.D. 04/30/2025 7:10 AM Dictation Location: [place] [address] Electronically authenticated by: [id number] Y Date: 7:10 Dictated By: Mariam Olivares M.D. Signed By:04/30/25 0713 DD/ 0710 TD/TT: Hospital Cleaner: Neha Borrego DO [facility] Final Result documented in this encounter Visit Diagnoses Not on filedocumented in this encounter
--- OUTSIDE RECORDS SUMMARY | 2025-04-30 14:48 | XMS_ITS | Encounter Summary ---
Author Organization [facility] Address [address] [place] [address] Care Team Providers Care Chamber Walker Name Role Phone Unavailable Primary Care Provider Unavailabl e Encounter Details Date Type Department Care Team (Late st Contact Info) Description 01/22/2025 Abstract [facility] BCP OB [address] [place] [address] Mik Borrego DO [facility] [place], [facility]11 Social History Tobacco Use Types Packs/Day [...] Routine NOMS BCP OB [address] [place] [address] Mik Borrego, DO [address] [place], [place] [phone] 05/12/2025 9:10 AM EDT Routine [facility] BCP OB [address] [place] [address] Mik Borrego, DO [facility] [place], [facility]11 05/19/2025 9:40 AM EDT Routine [facility] BCP OB [address] [facility] [place] [address] Mik Borrego, [address] [place] [address] documented as of this encounter Visit Diagnoses Not on filedocumented in this encounter
--- OUTSIDE RECORDS SUMMARY | 2025-04-30 14:48 | XMS_ITS | Encounter Summary ---
Author Organization [facility] Address [address] [place] [address] Care Team Providers Care Pediatric Medical Assistant Name Role Phone Unavailable Primary Care Provider Unavailabl e Encounter Details Date Type Department Care Team (Late st Contact Info) Description 02/04/2025 Abstract [facility] BCP OB [address] [place] [address] Mik Borrego DO [facility] [place], [facility]11 Social History Tobacco Use Types Packs/Day [...] Routine NOMS BCP OB [address] [place] [address] Mik Borrego, DO [address] [place], [place] [phone] 05/12/2025 9:10 AM EDT Routine [facility] BCP OB [address] [place] [address] Mik Borrego, DO [facility] [place], [facility] 05/19/2025 9:40 AM EDT Routine [facility] BCP OB [address] [place] [address] Mik Borrego, [address] [place] [address] documented as of this encounter Visit Diagnoses Not on filedocumented in this encounter
--- OUTSIDE RECORDS SUMMARY | 2025-04-30 14:48 | XMS_ITS | Encounter Summary ---
Author Organization [facility] Address [address] [place] [address] Care Team Providers Care Typing Office Worker Name Role Phone Unavailable Primary Care Provider Unavailabl e Encounter Details Date Type Department Care Team (Late st Contact Info) Description 02/03/2025 Abstract [facility] BCP OB [address] [place] [address] Mik Borrego DO [facility] [place], [facility] Social History Tobacco Use Types Packs/Day Years [...] [address] Mik Borrego, DO [address] [place], [facility] 05/12/2025 9:10 AM EDT Routine NOMS BCP OB [address] [place] [address] Mik Borrego DO [facility] [place], [facility] 05/19/2025 9:40 AM EDT Routine NOMS BCP OB [address] [facility] [place] [address] Mik Borrego, [address] [place] [address] documented as of this encounter Visit Diagnoses Not on filedocumented in this encounter
--- OUTSIDE RECORDS SUMMARY | 2025-04-30 14:48 | XMS_ITS | Encounter Summary ---
Author Organization [facility] Address [address] [place] [address] Care Team Providers Care Compound Finisher Name Role Phone Unavailable Primary Care Provider Unavailabl e Encounter Details Date Type Department Care Team (Late st Contact Info) Description 01/21/2025 Abstract [facility] BCP OB [address] [place] [address] Mik Borrego DO [facility] [place], [facility]11 Social History [...] Routine NOMS BCP OB [address] [place] [address] Mik Borrego, DO [address] [place], [place] [id number] 05/12/2025 9:10 AM EDT Routine NOMS BCP OB [address] [place] [address] Mik Borrego, DO [facility] [place], [facility] 05/19/2025 9:40 AM EDT Routine NOMS BCP OB [address] [facility] [place] [address] Mik Borrego, [address] [place] [address] documented as of this encounter Visit Diagnoses Not on filedocumented in this encounter
--- OUTSIDE RECORDS SUMMARY | 2025-04-30 14:48 | XMS_ITS | Clinical Summary ---
Author Organization [facility] Address [id number] [address] [place] [address] Care Team Providers Care Answering Service Telephone Operator Name Role Phone Unavailable Primary Care Provider Unavailabl e Allergies Active Allergy Reactions Criticality Noted Date Comments Gelatin 12/06/2024 Metformin Other (See Comments) 12/06/2024 Intolerance, rhabdomylosis Phentermine Shortness Of Breath High 12/06/2024 Sulfites 01/21/2025 Dulaglutide Hives 12/06/2024 Medications albuterol (PROVENTIL HFA;VENTOLIN HFA) 90 mcg/actuation inhaler Inhale 2 puffs every 6 (six) hours as needed for wheezing. Active cetirizine (ZyrTEC) 10 mg tablet Take 1 tablet (10 mg total) by mouth in the morning. Active NIFEdipine XL (PROCARDIA XL) 30 mg 24 hr tablet Take 1 tablet (30 mg total) by mouth in the morning and at bedtime. Active no115/iron/foli c acid ( 19 ORAL) Take 1 tablet by mouth once daily. Active magnesium oxide (MAGOX) 400 mg tablet Take 1 tablet (400 mg total) by mouth in the morning. Active aspirin 81 mg chewable tablet Chew 1 tablet (81 mg total) and swallow in the morning. 30 tablet 6 5 Active blood sugar diagnostic stripIndication s:Prediabetes in mother during ,Gesta tional diabetes mellitus (GDM), antepartum, gestational diabetes method of control unspecified,19 weeks gestation of 1 strip by other route in the morning and 1 strip at noon and 1 strip in the evening and 1 strip before bedtime. 120 strip 6 5 Active lancets 30 gauge miscIndications :Prediabetes in mother during ,Gesta tional diabetes mellitus (GDM), antepartum, gestational diabetes method of control unspecified,19 weeks gestation of Fasting and 1hr postprandial 100 each 1 Active Encounters Date Type Department Care Team Description 04/01/2025 Orders Only Maternal- Medicine at [facility] [address] [place] [address] Michelle Ashraf RN Chronic hypertension affecting (Primary Dx); Gestational diabetes mellitus (GDM), antepartum, gestational diabetes method of control unspecified 03/31/2025 10:39 AM EDT - 03/31/2025 11:59 PM EDT Hospital Encounter [facility] Imaging [address] [place] [address] Chronic hypertension affecting ; Advanced maternal age in multigravida, second trimester; Gestational diabetes mellitus (GDM), antepartum, gestational diabetes method of control unspecified Discharge Disposition: Home 03/31/2025 Travel 03/04/2025 Orders Only Maternal- Medicine at [facility] [address] [place] [address] Oralia Elliott CMA Chronic hypertension affecting (Primary Dx); Advanced maternal age in multigravida, second trimester; Gestational diabetes mellitus (GDM), antepartum, gestational diabetes method of control unspecified 03/03/2025 10:32 AM EDT - 03/03/2025 11:59 PM EDT Hospital Encounter [facility] US Imaging [address] [place] [address] Chronic hypertension affecting ; Advanced maternal age in multigravida, second trimester; Prediabetes in mother during ; Gestational diabetes mellitus (GDM), antepartum, gestational diabetes method of control unspecified Discharge Disposition: Home 03/03/2025 Travel 02/04/2025 Telephone Maternal- Medicine at [facility] [address] [place] [address] Yamila Rayo LPN from Last 3 Months Family History Medical History Relation Name Comments Hypertension Father renal cell carcinoma Father Hypertension Maternal Grandfather Hypertension Maternal Grandmother Breast cancer Paternal Aunt Diabetes Paternal Grandfather Colon cancer Paternal Uncle Autism Neg Hx Blood Clots Neg Hx Clotting disorder Neg Hx Developmental delay Neg Hx Down syndrome Neg Hx Heart defect Neg Hx Relation Name Status Comments Father Maternal Grandfather Maternal Grandmother Paternal Aunt Paternal Grandfather Paternal Uncle Social History Tobacco Use Types Packs/Day Years Used Date Smoking Tobacco: Former Cigarettes Smokeless Tobacco: Never Tobacco Cessation:Counseling Given: Not Answered Alcohol Use Standard Drinks/Week Comments Not Currently 0 (1 standard drink = 0.6 oz pur e alcohol) Hunger Screening Answer Date Recorded Within the past 12 months we worried whether our food would run out before we got money to buy more. Never True 01/21/2025 Within the past 12 months th e food we bought just didn't last and we didn't have money to get more. Never True 01/21/2025 Estimated Date of Delivery Comme nts Yes 06/12/2025 Based on Ultraso und Sex and Gender Information Value Date Recorded Sex Assigned at Not on file Legal Sex Female 12:30 PM EST Gender Identity Not on file Sexual Orientation Not on file Last Filed Vital Signs Vital Sign Reading Time Taken Comments Blood Pressure 151/74 01/21/2025 9:05 AM EDT Pulse 94 01/21/2025 9:05 AM EDT Temperature - - Respiratory Rate - - Oxygen Saturation - - Inhaled Oxygen Concentration - - Weight 97.3 kg (214 lb 6.4 oz) 01/21/2025 9:05 A M EDT Height 171.5 cm (5' 7.5 ) 01/21/2025 9:05 AM EDT Body Mass Index 33.08 01/21/2025 9:05 AM EDT Plan of Treatment Health Maintenance Due Date Last Done Comments Depression Screening 2000 Adult BMI Follow Up Plan 2006 DTaP,Tdap and Td Vaccines (2 - Td or Tdap) 06/01/2019 06/01/2009 COVID-19 Vaccine (3 - season) 2024, 06/25/2021 Influenza Vaccine 06/23/2025 Adult BMI Screening 01/21/2026 01/21/2025 Tobacco Screening 01/21/2026 01/21/2025 Pap Smear 09/16/2027 09/16/2024 Medical Devices Not on file Procedures Procedure Name Priority Date/Time Associated Diagnosis Comments US MFM OB FOLLOW-UP, 1 FETUS Routine 03/31/2025 11:47 AM EDT Chronic hypertension affecting Advanced maternal age in multigravida, second trimester Gestational diabetes mellitus (GDM), antepartum, gestational diabetes method of control unspecified US MFM OB FOLLOW-UP, 1 FETUS Routine 03/03/2025 12:05 PM EDT Chronic hypertension affecting Advanced maternal age in multigravida, second trimester Prediabetes in mother during Gestational diabetes mellitus (GDM), antepartum, gestational diabetes method of control unspecified from Last 3 Months Results * US MFM OB FOLLOW-UP, 1 FETUS (03/31/2025 11:47 AM EDT) Only the most recent of2 resultswithin the time period is included. 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 Para 0 [id number] Maternal Assessment ----- --------- Physical Exam Height 170 cm, 5 ft 7 in. Initial weight 97 kg, 214 lb. Initial BMI 33.52 kg/m Method ----- --------- Transabdominal ultrasound examination ----- --------- Horne . Number of fetuses: 1 Dating ----- --------- LMP on: 08/23/2024 GA by LMP 31 w + 3 d VIJAYA by LMP: 05/30/2025 Previous Ultrasound on: 10/24/2024 Type of prior assessment: GA GA at prior assessment date 7 w + 0 d GA by previous U/S 29 w + 4 d VIJAYA by previous Ultrasound: 06/12/2025 Ultrasound examination on: 03/31/2025 GA by U/S based upon: AC, BPD, Femur, HC GA by U/S 31 w + 4 d VIJAYA by U/S: 05/29/2025 Assigned: based on ultrasound (GA), selected on 01/21/2025 Assigned GA 29 w + 4 d Assigned VIJAYA: 06/12/2025 General Evaluation ----- --------- Cardiac activity Present. FHR 145 bpm. Presentation: cephalic Placenta: Placental site: posterior, away from cervical os Umbilical cord: Cord vessels: 3 vessel cord. Insertion site: documented previously Amniotic fluid: Amount of AF: normal amount. MVP 6.7 cm Biometry ----- --------- Standard BPD 81.2 mm 32w 4d 99% Hadlock OFD 104.4 mm 34w 1d >99% Santhosh HC 291.9 mm 32w 1d 87% Hadlock Cerebellum tr 38.7 mm 31w 3d 93% Hill AC 273.7 mm 31w 3d 91% Hadlock Femur 57.2 mm 30w 0d 47% Hadlock Humerus 51.6 mm 30w 1d 64% Santhosh HC / AC 1.07 EFW 1,712 g 88% Hadlock EFW (lb) 3 lb EFW (oz) 12 oz EFW by: Hadlock ([id number]) Extended Tibia 50.8 mm 30w 2d 75% Santhosh Central Office Maintainer 4.3 mm CM 4.6 mm 3% Nicolaides Head / Face / Neck Cephalic index 0.78 35% Nicolaides Extremities / Bony Struc FL / BPD 0.70 FL / HC 0.20 FL / AC 0.21 Other Structures FHR 145 bpm Anatomy ----- --------- The following structures appear normal: Head/Neck: Cranium. Lateral ventricles. Cavum septi pellucidi. Cerebellum. Cisterna magna. Heart/Thorax: 4-chamber view. Diaphragm. Abdomen: Stomach. Kidneys. Bladder. Maternal Structures ----- --------- Uterus Visualized Cervix Visualized Right Ovary Visualized Size 52 mm x 33 mm x 28 mm. Vol 24.9 cm Left Ovary Visualized Size 48 mm x 26 mm x 32 mm. Vol 21.0 cm Cul de Sac Suboptimal Impression ----- --------- Single viable intrauterine with appropriate interval growth. EFW measures at the 88%, AC measures at the 91%. Amniotic fluid MVP measures 6.7 cm. Recommendations ----- --------- The patient is scheduled in four weeks for follow up growth ultrasound. Subsequent follow up or other follow up as clinically determined by primary OB provider unless otherwise specified by M. Results forwarded to ordering provider so they can follow up with the patient as necessary. Procedure Note Ravindra Dowling MD - 03/31/2025 NAME: SEDA LUJAN : 1990 SEX: F Accession Number: [id number] ORDERING PHYSICIAN: LORENZA IRVIN REFERRING PHYSICIAN: NEHA CAMPBELL Coding ----- --------- Procedures 40567: Follow-up Ultrasound, per fetus Indication ----- --------- Gestational diabetes, Chronic hypertension affecting , Obesityin , AMA- Supervision of elderly History ----- --------- OB History 1. Para 0 [id number] Maternal Assessment ----- --------- Physical Exam Height 170 cm, 5 ft 7 in. Initial weight 97 kg, 214 lb.Initial BMI 33.52 kg/m Method ----- --------- Transabdominal ultrasound examination ----- --------- Horne . Number of fetuses: 1 Dating ----- --------- LMP on: 08/23/2024 GA by LMP 31 w + 3 d VIJAYA by LMP: 05/30/2025 Previous Ultrasound on: 10/24/2024 Type of prior assessment: GA GA at prior assessment date 7 w + 0 d GA by previous U/S 29 w + 4 d VIJAYA by previous Ultrasound: 06/12/2025 Ultrasound examination on: 03/31/2025 GA by U/S based upon: AC, BPD, Femur, HC GA by U/S 31 w + 4 d VIJAYA by U/S: 05/29/2025 Assigned: based on ultrasound (GA), selected on 01/21/2025 Assigned GA 29 w + 4 d Assigned VIJAYA: 06/12/2025 General Evaluation ----- --------- Cardiac activity Present. FHR 145 bpm. Presentation: cephalic Placenta: Placental site: posterior, away from cervical os Umbilical cord: Cord vessels: 3 vessel cord. Insertion site: documentedpreviously Amniotic fluid: Amount of AF: normal amount. MVP 6.7 cm Biometry ----- --------- Standard BPD 81.2 mm 32w 4d 99% Hadlock OFD 104.4 mm 34w 1d >99% Santhosh HC 291.9 mm 32w 1d 87% Hadlock Cerebellum tr 38.7 mm 31w 3d 93% Hill AC 273.7 mm 31w 3d 91% Hadlock Femur 57.2 mm 30w 0d 47% Hadlock Humerus 51.6 mm 30w 1d 64% Santhosh HC / AC 1.07 EFW 1,712 g 88% Hadlock EFW (lb) 3 lb EFW (oz) 12 oz EFW by: Hadlock ([id number]) Extended Tibia 50.8 mm 30w 2d 75% Santhosh Central Office Maintainer 4.3 mm CM 4.6 mm 3% Nicolaides Head / Face / Neck Cephalic index 0.78 35% Nicolaides Extremities / Bony Struc FL / BPD 0.70 FL / HC 0.20 FL / AC 0.21 Other Structures FHR 145 bpm Anatomy ----- --------- The following structures appear normal: Head/Neck: Cranium. Lateral ventricles. Cavum septi pellucidi. Cerebellum.Cisterna magna. Heart/Thorax: 4-chamber view. Diaphragm. Abdomen: Stomach. Kidneys. Bladder. Maternal Structures ----- --------- Uterus Visualized Cervix Visualized Right Ovary Visualized Size 52 mm x 33 mm x 28 mm. Vol 24.9 cm Left Ovary Visualized Size 48 mm x 26 mm x 32 mm. Vol 21.0 cm Cul de Sac Suboptimal Impression ----- --------- Single viable intrauterine with appropriate interval growth. EFWmeasures at the 88%, AC measures at the 91%. Amniotic fluid MVP measures 6.7 cm. Recommendations ----- --------- The patient is scheduled in four weeks for follow up growth ultrasound. Subsequent follow up or other follow up as clinically determined byprimary OB provider unless otherwise specified by [facility]. Results forwarded to ordering provider so they can follow up with thepatient as necessary. us Lorenza Irvin MD [facility] ORDERABLES Final Re sult from Last 3 Months Insurance ANTHEM
--- OUTSIDE RECORDS SUMMARY | 2025-04-30 14:48 | XMS_ITS | Encounter Summary ---
Author Organization [facility] Address [address] [place] [address] Care Team Providers Care Unit Technician Name Role Phone Unavailable Primary Care Provider Unavailabl e Encounter Details Date Type Department Care Team (Late st Contact Info) Description 01/22/2025 Abstract [facility] [address] [place] [address] Mik Borrego DO [facility] [place], [id number] Social History Tobacco Use Types Packs/Day Years [...] Routine [facility] [address] [place] [address] Mik Borrego, DO [address] [place], [place] [id number] 05/12/2025 9:10 AM EDT Routine [facility] [address] [place] [address] Mik Borrego, DO [facility] [place], [id number] 05/19/2025 9:40 AM EDT Routine [facility] [address] [facility] [place] [address] Mik Borrego, [address] [place] [address] documented as of this encounter Visit Diagnoses Not on filedocumented in this encounter
--- OUTSIDE RECORDS SUMMARY | 2025-04-30 14:48 | XMS_ITS | Encounter Summary ---
Author Organization [facility] Address [address] [address] Care Team Providers Care Pest Control Supervisor Name Role Phone Unavailable Primary Care Provider Unavailabl e Encounter Details Date Type Department Care Team (Late st Contact Info) Description 02/04/2025 Abstract [facility] [address] [place] [address] Mik Borrego DO [facility] [place], [id number] Social History Tobacco Use Types Packs/Day [...] Routine [facility] OB [address] [place] [address] Mik Borrego, DO [address] [place], [place] [id number] 05/12/2025 9:10 AM EDT Routine [facility] OB [address] [place] [address] Mik Borrego, DO [facility] [place], [facility]11 05/19/2025 9:40 AM EDT Routine [facility] [address] [facility] [place] [address] Mik Borrego, [address] [place] [address] documented as of this encounter Visit Diagnoses Not on filedocumented in this encounter
--- OUTSIDE RECORDS SUMMARY | 2025-04-30 14:49 | XMS_ITS | Encounter Summary ---
Author Organization [facility] Address [address] [place] [address] Care Team Providers Care Insulation Extruder Operator Name Role Phone Unavailable Primary Care Provider Unavailabl e Encounter Details Date Type Department Care Team (Late st Contact Info) Description 10/08/2024 Orders Only [facility] [address] [place] [id number] Larisa Chowdary MA [address] [place] [address] [place] [address] Social History Tobacco Use Types Packs/Day Years [...] 9:10 AM EDT Routine [facility] OB [facility] [place] [id number] Mik Borrego [address] [place] [address] 05/12/2025 9:10 AM EDT Routine [facility] OB [facility] [place] [phone] Mik Borrego DO [facility] [place] [address] 05/19/2025 9:40 AM EDT Routine [facility] OB [facility] [place] [address] Mik Borrego, DO [address] [facility] [place] [address] documented as of this encounter Procedures Procedure [...]
--- OUTSIDE RECORDS SUMMARY | 2025-04-30 14:49 | XMS_ITS | Clinical Summary ---
Author Organization [facility] Healthcare Address [address] [place] [address] Care Team Providers Care Engine Head Repairer Name Role Phone Unavailable Primary Care Provider [...] check FSBS. 150 each 3 5 Active glucose blood (RELION GLUCOSE TEST STRIPS) [...] 3 mL 3 5 04/08/20 26 Active Blood Glucose Monitoring Suppl (ReliOn True Met Air Gluc Meter) w/Device kitIndications:G estational diabetes mellitus (GDM), antepartum, gestational diabetes method of control unspecified ([facility]),Elevat ed glucose tolerance test 1 kit in the morning and 1 kit at noon and 1 kit in the evening and 1 kit before bedtime. 1 kit 04/29/20 Active Problems Problem Noted Date Diagnosed Date Insulin controlled gestation al diabetes mellitus (GDM) in third trimester ([facility]) 04/21/2025 Multigravida of advanced mat ernal age in third trimester ([facility]) 04/21/2025 Hypertension 04/21/2025 Third trimester ([facility]) 04/21/2025 Elevated blood pressure affe cting , antepartum ([facility]) 01/16/2025 headache, antepartum ([facility]) 025 Vaginal bleeding affecting early ([facility]) 11/06/2024 Estimated Date of Delivery Comme nts Yes 06/12/2025 Based on Ultraso und Encounters Date Type Department Care Team Description 04/30/2025 2:00 PM EDT Routine [facility] [address] [place] [address] Lindsey Guajardo PA 33 weeks gestation of ([facility]); Third trimester ([facility]); High blood pressure affecting in third trimester, antepartum ([facility]); induced hypertension, antepartum ([facility]) 04/30/2025 Telephone [facility] [place] [address] [place] [address] Juanis Esparza MA 04/30/2025 Clinisync Result Encounter NOM[facility] External Department Unsolicited Neha Borrego, 04/30/2025 Clinisync Result Encounter NOMS External Department Unsolicited Neha Borrego, DO 04/23/2025 Clinisync Result Encounter NOMS External Department Unsolicited Neha Borrego, DO 04/22/2025 Abstract [facility] [place] [address] [place] [address] Neha Borrego, DO 04/21/2025 3:20 PM EDT Routine [facility] [place] [address] [place] [address] Neha Borrego, Third trimester ([facility]); 32 weeks gestation of ([facility]); Insulin controlled gestational diabetes mellitus (GDM) in third trimester ([facility]); Multigravida of advanced maternal age in third trimester ([facility]); Hypertension, unspecified type 04/21/2025 Bamboo flowsheet [facility] [address] [facility] [place] [address] Neha Borrego, 04/14/2025 9:00 AM EDT Routine [facility] [address] [facility] [place] [address] Neha Borrego, Third trimester ([facility]); 31 weeks gestation of ([facility]) 04/14/2025 Bamboo flowsheet [facility] [address] [facility] [place] [address] Neha Borrego, 04/09/2025 Telephone [facility] [address] [facility] [place] [address] Mima Owusu LPN 04/08/2025 11:10 AM EDT Routine [facility] OB [address] [facility] [place] [address] Neha Borrego, Third trimester ([facility]); 30 weeks gestation of ([facility]); Gestational diabetes mellitus (GDM), antepartum, gestational diabetes method of control unspecified ([facility]) 04/08/2025 Bamboo flowsheet [facility] [address] [facility] [place] [address] Neha Borrego, 04/01/2025 Abstract [facility] [address] [facility] [place] [address] Juanis Esparza MA 03/24/2025 11:10 AM EDT Routine [facility] OB [address] [facility] [place] [address] Neha Borrego, Gestational diabetes mellitus (GDM), antepartum, gestational diabetes method of control unspecified ([facility]); Multigravida of advanced maternal age in third trimester ([facility]); Third trimester ([facility]); 28 weeks gestation of ([facility]) 03/24/2025 Bamboo flowsheet [facility] [address] [facility] [place] [address] Neha Borrego, 03/21/2025 Refill [facility] [address] [facility] [place] [address] Neha Borrego, headache, antepartum ([facility]) 03/04/2025 Abstract [facility] [address] [facility] [place] [address] Juanis Esparza MA 02/24/2025 10:20 AM EDT Routine [facility] [address] [facility] [place] [address] Neha Borrego, Second trimester ([facility]); 24 weeks gestation of ([facility]) 02/24/2025 Bamboo flowsheet [facility] OB [address] [facility] [place] [address] Neha Borrego, 02/18/2025 Telephone [facility] [address] [facility] [place] [address] Larisa Chowdary MA 02/05/2025 Abstract [facility] [address] [facility] [place] [address] Neha Borrego, 02/04/2025 Abstract [facility] [address] [place] [address] Neha Borrego, 02/04/2025 Abstract [facility] [address] [facility] [place] [address] Neha Borrego, 02/04/2025 Telephone [facility] [address] [place] [address] [place] [address] Neha Borrego, DO 02/03/2025 Abstract [facility] [address] [place] [address] [place] [address] Neha Borrego, DO 02/03/2025 Telephone [facility] [address] [place] [address] [place] [address] Neha Borrego, DO 01/29/2025 Telephone [facility] [address] [place] [address] [place] [address] Larisa Chowdary MA 01/29/2025 Refill [facility] [address] [place] [address] Larisa Chowdary MA from Last 3 [...] 12.8 oz) 04/30/2025 2:13 PM EDT Height 170.2 cm (5' 7 ) 05/06/2024 3:23 PM EDT Body Mass Index 34.27 05/06/2024 3:23 PM EDT Plan of Treatment Upcoming Encounters Date Type Department Care Team (Late st Contact Info) Description 05/05/2025 9:10 AM EDT Routine [facility] [address] [place] [address] Neha Borrego, DO [address] [facility] [place] [address] 05/12/2025 9:10 AM EDT Routine [facility] OB [address] [place] [address] [place] [address] Neha Borrego, DO [address] [facility] [place] [address] 05/19/2025 9:40 AM EDT Routine [facility] [address] [place] [address] [place] [address] Neha Borrego, DO [address] [facility] [place] [address] Health Maintenance Due Date Last Done Comments Influenza Vaccine (#1) 2025 Cervical Cancer Screening 09/16/2029 HPV/Cotest 09/16/2029 08/05/2020 Pap Smear 09/16/2029 09/16/2024 Procedures Procedure Name Priority Date/Time Associated Diagnosis Comments POCT URINALYSIS DIPSTICK Routine 04/30/2025 2:19 PM EDT 33 weeks gestation of ([facility]) Third trimester ([facility]) US OB BPP W NON-STRESS 04/30/2025 7:10 AM EDT US OB GROWTH 04/30/2025 7:10 AM EDT US OB BPP W NON-STRESS 04/23/2025 8:03 AM EDT POCT URINALYSIS DIPSTICK Routine 04/21/2025 3:40 PM EDT Third trimester ([facility]) POCT URINALYSIS DIPSTICK Routine 04/14/2025 9:09 AM EDT Third trimester ([facility]) 31 weeks gestation of ([facility]) POCT URINALYSIS DIPSTICK Routine 04/08/2025 11:35 AM EDT Third trimester ([facility]) POCT URINALYSIS DIPSTICK Routine 03/24/2025 11:50 AM EDT Gestational diabetes mellitus (GDM), antepartum, gestational diabetes method of control unspecified ([facility]) POCT URINALYSIS DIPSTICK Routine 02/24/2025 10:57 AM EDT Second trimester ([facility]) 24 weeks gestation of ([facility]) PAP SMEAR Routine 09/16/2024 12:00 AM EST THINPREP TIS PAP REFLEX HPV MRNA E6/E7 (96795) Routine 08/05/2020 from Last 3 Months or Most Recently Relevant to Health Maintenance Results * (ABNORMAL) POCT urinalysis dipstick manually resulted (04/30/2025 2:19 PM EDT) Only the most recent of6 resultswithin the time period is included. Color, [...] TEST ENTER/EDIT OR DERABLES Final Result * US OB GROWTH (04/30/2025 7:10 AM EDT) Anatomical Region Laterality Modality Other 04/30/2025 7:10 AM EDT Narrative 04/30/2025 7:13 AM EDT [address] [address] Ultrasound Report Signed Patient: LE WEEMS MR#: [id number] : 1990 Acct:[id number] Age/Sex: 34 / F ADM Date: 04/29/25 Loc: US Attending Dr: Neha Borrego D.O. Ordering Physician: Neha Borrego D.O. Date of Service: 04/29/25 Procedure(s): US OB growth Accession Number(s): [id number] cc: Neha Borrego D.O.; Physician,Non-Staff Dileep The [address] [address] Patient Name: LE WEEMS MRN: [id number] date: 1990 Sex: F Assigned Patient Location: Current Patient Location: Accession/Order Number: [id number] Exam Date: 04/30/2025 07:02 Report Date: 04/30/2025 [...] Olivares M.D. 04/30/2025 7:10 AM Dictation Location: [place] [address] Electronically authenticated by: [id number] Y Date: 04/30/2025 07:10 Dictated By: Mariam Olivares M.D. Signed By: 04/30/2513 DD/ 0710 TD/TT: Cotton Stripper: Procedure Note Radiology, Radiologist, MD - 04/30/2025 [place] [address] Ultrasound Report Signed Patient: LE WEEMSMR#: [id number] : 1990Acct:[id number] Age/Sex: 34 / FADM Date: 04/29/25 Loc: US Attending Dr: Neha Borrego D.O. Ordering Physician: Neha Borrego D.O. Date of Service: 04/29/25 Procedure(s): US OB growth Accession Number(s): [id number] cc: Neha Borrego D.O.; Physician,Non-Staff Dileep The [place] [id number] Patient Name: LE WEEMS MRN: [facility]:[id number] date: 1990 Sex: F Assigned Patient Location: Current Patient Location: Accession/Order Number: [id number] Exam Date: 04/30/2025 07:02 Report Date: 04/30/2025 [...] Olivares M.D. 04/30/2025 7:10 AM Dictation Location: [place] [address] Electronically authenticated by: [id number] Y Date: 507:10 Dictated By: Mariam Olivares M.D. Signed By:04/30/25 0713 DD/ TD/TT: Cotton Stripper: us Neha Borrego DO [facility] Final Result * US OB BPP W NON-STRESS (04/30/2025 7:10 AM EDT) Only the most recent of2 resultswithin the time period is included. Anatomical Region Laterality Modality Other 04/30/2025 7:10 AM EDT Narrative 04/30/2025 7:13 [place] [address] Ultrasound Report Signed Patient: LE WEEMS MR#: [id number] : 1990 Acct:[id number] Age/Sex: 34 / F ADM Date: 04/29/25 Loc: US Attending Dr: Neha Borrego D.O. Ordering Physician: Neha Borrego D.O. Date of Service: 04/29/25 Procedure(s): US OB BPP w non-stress Accession Number(s): [id number] cc: Neha Borrego D.O.; Physician,Non-Staff Dileep [address] [address] Patient Name: LE WEEMS MRN: [facility]:[id number] date: 1990 Sex: F Assigned Patient Location: [facility] Current Patient Location: Accession/Order Number: [id number] Exam Date: 04/30/2025 07:02 Report Date: 04/30/2025 [...] Olivares M.D. 04/30/2025 7:10 AM Dictation Location: [place] [address] Electronically authenticated by: [id number] Y Date: 04/30/2025 07:10 Dictated By: Mariam Olivares M.D. Signed By: 04/30/25 0713 DD/ 0710 TD/TT: Cotton Stripper: Procedure Note Radiology, Radiologist, MD - 04/30/2025 [place] [address] Ultrasound Report Signed Patient: LE WEEMS#: [id number] : 1990Acct:[id number] Age/Sex: 34 / FADM Date: 04/29/25 Loc: US Attending Dr: Neha Borrego D.O. Ordering Physician: Elmo,Neha D.O. Date of Service: 04/29/25 Procedure(s): US OB BPP w non-stress Accession Number(s): [id number] cc: Neha Borrego D.O.; Physician,Non-Staff Dileep [place] [address] Patient Name: LE WEEMS MRN: [facility]:[id number] date: 1990 Sex: F Assigned Patient Location: [facility] Current Patient Location: Accession/Order Number: [id number] Exam Date: 04/30/2025 07:02 Report Date: 04/30/2025 [...] Olivares M.D. 04/30/2025 7:10 AM Dictation Location: [place] [address] Electronically authenticated by: [id number] Y Date: 7:10 Dictated By: Mariam Olivares M.D. Signed By:04/30/2513 DD/ 9 TD/TT: Cotton Stripper: us Neha Elmo DO [facility] Final Result * Pap Smear (09/16/2024 12:00 AM EST) Swab Cervical swab / Unknown us Neha Elmo DO LAB CYTOLOGY ORDERABLES Final Re sult EXTERNAL LAB * THINPREP TIS PAP REFLEX HPV MRNA E6/E7 (96709) (08/05/2020) CLINICAL INFORMATION: None given [facility] [...] SEE COMMENT [facility] Comment: [facility], CT(ASCP) CT screening location: [facility], [address] [place] [address]. COMMENT SEE COMMENT [facility] EXTERNAL [...] with historic and current clinical information. 08/05/2020 us Ty Pulido MD [facility] Final Result [facility] from Last 3 Months or Most Recently Relevant to Health Maintenance Insurance [facility]
--- OUTSIDE RECORDS SUMMARY | 2025-04-30 14:49 | XMS_ITS | Encounter Summary ---
Author Organization [facility] Address [address] [place] [address] Care Team Providers Care Sports Clerk Name Role Phone Unavailable Primary Care Provider [...] Routine [facility] OB [address] [place] [address] Neha Borrego, DO [address] [place], [facility]11 05/12/2025 9:10 AM EDT Routine [facility] OB [address] [place] [address] Neha Borreog, DO [address] [place], [place] [address] 05/19/2025 9:40 AM EDT Routine [facility] OB [address] [facility] [address] Neha Borrego DO [address] [facility] [place] [address] documented as of this encounter Procedures Procedure Name Priority Date/Time Associated Diagnosis Comments US OB BPP W NON-STRESS 04/23/2025 8:03 AM EDT documented in this encounter Results * US OB BPP W NON-STRESS (04/23/2025 8:03 AM EDT) Anatomical Region Laterality Modality Other 04/23/2025 8:03 AM EDT Narrative 04/23/2025 9:46 AM EDT The [address] [address] Ultrasound Report Signed Patient: LE WEEMS MR#: [id number] : 1990 Acct:[id number] Age/Sex: 34 / F ADM Date: 04/22/25 Loc: US Attending Dr: Neha Borrego D.O. Ordering Physician: Neha Borrego D.O. Date of Service: 04/22/25 Procedure(s): US OB BPP w non-stress Accession Number(s): [id number] cc: Neha Borrego D.O.; Physician,Non-Staff M.D. The [address] [address] Patient Name: LE WEEMS MRN: [id number] date: 1990 Sex: F Assigned Patient Location: US Current Patient Location: Accession/Order Number: [id number] Exam Date: 04/23/2025 08:01 Report Date: 04/23/2025 [...] Olivares M.D. 04/23/2025 8:03 AM Dictation Location: [place] [address] Electronically authenticated by: [id number] Y Date: 04/23/2025 08:03 Dictated By: Mariam Olivares M.D. Signed By: 04/23/25 0946 DD/ 0803 TD/TT: Senior Clinical Data Coordinator: Procedure Note Radiology, Radiologist, - 04/23/2025 [place] [address] Ultrasound Report Signed Patient: LE WEEMSMR#: [id number] : 1990Acct:[id number] Age/Sex: 34 / FADM Date: 04/22/25 Loc: US Attending Dr: Neha Borrego D.O. Ordering Physician: Neha Borrego D.O. Date of Service: 04/22/25 Procedure(s): US OB BPP w non-stress Accession Number(s): [id number] cc: Neha Borrego D.O.; Physician,Non-Staff Dileep The [place] [address] Patient Name: LE WEEMS MRN: [facility]:[id number] date: 1990 Sex: F Assigned Patient Location: Current Patient Location: Accession/Order Number: [id number] Exam Date: 04/23/2025 08:01 Report Date: 04/23/2025 [...] Olivares M.D. 04/23/2025 8:03 AM Dictation Location: [place] [address] Electronically authenticated by: [id number] Y Date: 508:03 Dictated By: Mariam Olivares M.D. Signed By:04/23/25 0946 DD/ 0803 TD/TT: Senior Clinical Data Coordinator: Neha Borrego DO [facility] Final Result documented in this encounter Visit Diagnoses Not on filedocumented in this encounter
--- OUTSIDE RECORDS SUMMARY | 2025-04-30 14:49 | XMS_ITS | Encounter Summary ---
Author Organization [facility] Address [address] [place] [address] Care Team Providers Care Car Repossessor Name Role Phone Unavailable Primary Care Provider Unavailabl e Encounter Details Date Type Department Care Team (Late st Contact Info) Description 04/30/2025 Telephone [facility] [address] [facility] [place] [address] Juanis Esparza MA Social History Tobacco Use Types Packs/Day Years Used Date Smoking Tobacco: Never Assessed Estimated Date of Delivery Comme nts Yes 06/12/2025 Based on Ultraso und Sex and Gender Information Value Date Recorded Sex Assigned at Not on file Legal Sex Female 6:40 PM EDT Gender Identity Not on file Sexual Orientation Not on file documented as of this encounter Miscellaneous Notes * Telephone Encounter - Juanis Esparza MA - 04/30/2025 10:06 AM EDT Hi, this is Julissa Weems. So my sugars have been fine. But last night during my NST and my BPP, I noticed my blood pressure was running high, even on my meds. It was 158 over 88 or 90 last night, andthen today I have had like a tiny little bit of coffee, but I have had my meds earlier, like 3 h ago. 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 I am like 162 over 80 s with a headache. Just was wondering what he wanted me to do. I am going to have her recheck me after I sit here for a minute. But if you can call me back Per ailyn, Have pt come in for appt today to discuss, PVU documented in this encounter Plan of Treatment Upcoming Encounters Date Type Department Care Team (Late st Contact Info) Description 05/05/2025 9:10 AM EDT Routine [facility] [address] [facility] [place] [address] Mik Borrego, DO [address] [place] [address] 05/12/2025 9:10 AM EDT Routine [facility] OB [address] [place] [address] Mik Borrego, DO [address] [facility] [place] [address] 05/19/2025 9:40 AM EDT Routine [facility] OB [address] [place] [address] Mik Borrego, DO [address] [place], [place] [address] [place] [address] documented as of this encounter Visit Diagnoses Not on filedocumented in this encounter
--- OUTSIDE RECORDS SUMMARY | 2025-04-30 14:49 | XMS_ITS | Encounter Summary ---
Author Organization [facility] Address [address] [place] [address] Care Team Providers Care Sales Associate Fishing Name Role Phone Unavailable Primary Care Provider Unavailabl e Encounter Details Date Type Department Care Team (Late st Contact Info) Description 11/11/2024 Abstract [facility] OB [address] [place] [address] Mik Borrego DO [facility] [place], [facility]11 Social History Tobacco Use Types Packs/Day Years [...] [address] Mik Borrego, DO [address] [place], [place] [address] 05/12/2025 9:10 AM EDT Routine [facility] OB [address] [place] [address] Mik Borrego, DO [facility] [place], [facility] 05/19/2025 9:40 AM EDT Routine [facility] OB [address] [facility] [place] [address] Mik Borrego, [address] [place] [address] documented as of this encounter Visit Diagnoses Not on filedocumented in this encounter
--- OUTSIDE RECORDS SUMMARY | 2025-04-30 14:49 | XMS_ITS | Encounter Summary ---
Author Organization [facility] Address [address] [place] [address] Care Team Providers Care District Home Economics Agent Name Role Phone Unavailable Primary Care Provider Unavailabl e Encounter Details Date Type Department Care Team (Late st Contact Info) Description 04/01/2025 Abstract [facility] OB [address] [facility] [place] [address] Juanis Esparza MA Social History Tobacco [...] Routine [facility] OB [address] [place] [address] Mik Borrego [address] [place] [address] 05/12/2025 9:10 AM EDT [place] [address] Mik Borrego DO [address] [place] [address] [place] [address] 05/19/2025 9:40 AM EDT Routine [facility] OB [address] [place] [address] Mik Borrego, DO [address] [facility] [address] [place], [place] [address] documented as of this encounter Visit Diagnoses Not on filedocumented in this encounter
--- OUTSIDE RECORDS SUMMARY | 2025-04-30 14:49 | XMS_ITS | Encounter Summary ---
Author Organization [facility] Address [address] [place] [address] Care Team Providers Care Electrical Engineering Technologist Name Role Phone Unavailable Primary Care Provider Unavailabl e Encounter Details Date Type Department Care Team (Late st Contact Info) Description 04/22/2025 Abstract [facility] OB [address] [place] [address] Mik Borrego DO [facility] [place], [facility]11 Social History Tobacco Use Types [...] Mik Borrego, DO [address] [place], [place] [address] 05/12/2025 9:10 AM EDT Routine [facility] OB [address] [place] [address] Mik Borrego DO [facility] [place], [facility]11 05/19/2025 9:40 AM EDT Routine [facility] OB [address] [facility] [place] [address] Mik Borrego, [address] [place] [address] documented as of this encounter Visit Diagnoses Not on filedocumented in this encounter
--- OUTSIDE RECORDS SUMMARY | 2025-04-30 14:49 | XMS_ITS | Encounter Summary ---
Author Organization [facility] Address [address] [place] [address] Care Team Providers Care Hotel Administrative Assistant Name Role Phone Unavailable Primary Care Provider Unavailabl e Encounter Details Date Type Department Care Team (Late st Contact Info) Description 04/21/2025 Bamboo flowsheet [facility] B[facility] OB [address] [place] [address] Mik Borrego, DO [address] [place], [place] [address] Social History Tobacco Use Types Packs/Day Years [...] Routine [facility] OB [address] [place] [address] Mik Borrego, DO [address] [place], [place] [address] 05/12/2025 9:10 AM EDT Routine [facility] OB [address] [place] [address] Mik Borrego, DO [address] [place], [facility]11 05/19/2025 9:40 AM EDT Routine [facility] OB [address] [facility] [place] [address] Mik Borrego, [address] [place], [place] [address] documented as of this encounter Visit Diagnoses Not on filedocumented in this encounter
--- OUTSIDE RECORDS SUMMARY | 2025-04-30 14:49 | XMS_ITS | Encounter Summary ---
Author Organization [facility] [facility] Address [facility]-[id number] [address] [place] [address] Care Team Providers Care Route Salesman And Driver Name Role Phone Unavailable Primary Care Provider Unavailabl e Encounter Details Date Type Department Care Team (Late st Contact Info) Description 12/06/2024 Orders Only Maternal- Medicine at [facility] [address] [place] [address] Ref Prov, [place] [address] Social History Tobacco Use Types Packs/Day Years Used Date Smoking Tobacco: Unknown Estimated Date of Delivery Comme nts Yes 06/12/2025 Based on Ultraso und Sex and Gender Information Value Date Recorded Sex Assigned at Not on file Legal Sex Female 12:30 PM EST Gender Identity Not on file Sexual Orientation Not on file documented as of this encounter Plan of Treatment Not on file documented as of this encounter Procedures Procedure Name Priority Date/Time Associated Diagnosis Comments ULTRASOUND OFFICE Routine 11/08/2024 12:05 PM EST ULTRASOUND OFFICE Routine 10/24/2024 12:04 PM EST documented in this encounter Results * Ultrasound - Office (11/08/2024 12:05 PM EST) Anatomical Region Laterality Modality AMB Ultrasound us Not In System Ref Prov IMG US ORDERABLES Final R esult * Ultrasound - Office (10/24/2024 12:04 PM EST) Anatomical Region Laterality Modality AMB Ultrasound us Not In System Ref Prov IMG US ORDERABLES Final R esult documented in this encounter Visit Diagnoses Not on filedocumented in this encounter
--- OUTSIDE RECORDS SUMMARY | 2025-04-30 14:49 | XMS_ITS | Encounter Summary ---
Author Organization [facility] Address [address] [place] [address] Care Team Providers Care Highway Patrol Officer Name Role Phone Unavailable Primary Care Provider Unavailabl e Encounter Details Date Type Department Care Team (Late st Contact Info) Description 11/08/2024 Clinisync Result Encounter NOMS External Department Unsolicited Nhea Borrego, DO [address] [place], [facility]11 Social History Tobacco Use Types Packs/Day [...] Routine [facility]OMS BCP OB [address] [place] [phone] Neha Borrego, DO [address] [place], [place] [id number] 05/12/2025 9:10 AM EDT Routine [facility] BCP OB [address] [place] [phone] Neha Borrego, DO [address] [place], [place] [id number] 05/19/2025 9:40 AM EDT Routine [facility] BCP OB [address] [facility] [place] [address] Neha Borrego, [address] [facility] [place] [address] documented as of this encounter Procedures Procedure [...] AM EST Narrative 11/08/2024 11:35 AM EST [address] [address] Ultrasound Report Signed Patient: LE WEEMS MR#: [id number] : 1990 Acct:[id number] Age/Sex: 33 / F ADM Date: 11/08/24 Loc: US Attending Dr: Neha Borrego D.O. Ordering Physician: Neha Borrego D.O. Date of Service: 11/08/24 Procedure(s): US OB transvaginal Accession Number(s): [id number] cc: Neha Borrego D.O.; Physician,Non-Staff [place] [id number] Patient Name: LE WEEMS MRN: [id number] date: 1990 Sex: F Assigned Patient Location: US Current Patient Location: US Accession/Order Number: [id number] Exam Date: 11/08/2024 10:18 Report Date: 11/08/2024 [...] Signed By: 11/08/24 1135 DD/ 1132 TD/TT: Behavioral Sciences Instructor: Procedure Note Radiology, Radiologist, MD - 11/08/2024 [place] [address] Ultrasound Report Signed Patient: LE WEEMSMR#: [id number] : 1990Acct:[id number] Age/Sex: 33 / FADM Date: 11/08/24 Loc: US Attending Dr: Neha Borrego D.O. Ordering Physician: Neha Borrego D.O. Date of Service: 11/08/24 Procedure(s): US OB transvaginal Accession Number(s): [id number] cc: Neha Borrego D.O.; Physician,Non-Staff [place] [address] Patient Name: LE WEEMS MRN: [id number] date: 1990 Sex: F Assigned Patient Location: US Current Patient Location: US Accession/Order Number: [id number] Exam Date: 11/08/2024 10:18 Report Date: 11/08/2024 [...] M.D. Signed By:11/08/24 1135 DD/ 1132 TD/TT: Behavioral Sciences Instructor: us Neha Borrego DO [facility] IMAGING Final Result * HBSAG SCREEN (11/08/2024 10:14 AM EST) HBSAG SCREEN Negative Negative [facility] Comment: Performed at: - [address] [id number] Contract Agent: Toni Espinal PhD, Phone: [phone] 11/08/2024 10:1 4 AM EST 11/08/2024 10:16 AM EST Narrative CLIN[facility] - 11/09/2024 12:[address] [facility] LAB BLOOD ORDERABLES Final Resul t Performing Organization Address [facility] de Phone Number [facility] * RAPID PLASMA REAGIN, QUANT (11/08/2024 10:14 AM EST) RAPID PLASMA REAGIN, QUANT Non Reactive NonRea<1: 1 titer [facility] Comment: Please Note: This test does not meet current guidelines for screening and diagnosis of syphilis. This test is intended for following treatment response in patients being treated for syphilis infection. To screen for syphilis infection, a reflex cascade that includes both RPR and a treponema-specific assay should be utilized, such as Treponema pallidum (Syphilis) Screening [place] (380763) or Rapid Plasma Reagin (RPR) Test With Reflex to Quantitative RPR and Confirmatory Treponema pallidum Antibodies (577909). Performed at: [address] [id number] Contract Agent: Toni Espinal PhD, Phone: [phone] 11/08/2024 10:1 4 AM EST 11/08/2024 10:16 AM EST Narrative CLIN[facility] - 11/09/2024 12:09 PM EST [employer] LAB BLOOD ORDERABLES Final Resul t Performing Organization Address [facility] de Phone Number [facility] * HCV ANTIBODY RFX TO QUANT PCR (11/08/2024 10:14 AM EST) HCV AB Non Reactive Non Reactive [facility] INTERPRETATION: Comment . [facility] Comment: Not infected with HCV unless early or acute infection is suspected (which may be delayed in an immunocompromised individual), or other evidence exists to indicate HCV infection. 11/08/2024 10:1 4 AM EST 11/08/2024 10:16 AM EST Narrative CL[facility] - 11/09/2024 5:07 AM EST Neha Elmo DO LAB BLOOD ORDERABLES Final Resul t Performing Organization Address City/[facility]/ZIP Co de Phone Number [facility] * HIV AB/P24 AG WITH REFLEX (11/08/2024 10:14 AM EST) HIV AB/P24 AG SCREEN Non Reactive Non Reactive [facility] Comment: HIV-1/HIV-2 antibodies and HIV-1 p24 antigen were NOT detected. There is no laboratory evidence of HIV infection. HIV Negative Performed at: [facility] [address] [id number] Contract Agent: Toni Espinal PhD, Phone: [phone] 11/08/2024 10:1 4 AM EST 11/08/2024 10:16 AM EST Narrative CLINISYNC - 11/09/2024 5:07 AM EST Neha Elmo DO LAB BLOOD ORDERABLES Final Resul t Performing Organization Address [facility] Co de Phone Number [facility] * ALL RUBELLA IGG AB (11/08/2024 10:14 AM EST) RUBELLA ANTIBODIES, IGG 1.78 Immune >0.99 index [facility] Comment: Non-immune <0.90 Equivocal 0.90 - 0.99 Immune >0.99 11/08/2024 10:1 4 AM EST 11/08/2024 10:16 AM EST Narrative CL[facility] - 11/09/2024 5:07 AM EST Neha Elmo DO CL[facility] Final Result Performing Organization Address City/[facility]/ZIP Co de Phone Number [facility] * ALL TYPE AND SCREEN (11/08/2024 10:14 AM EST) BLOOD TYPE B Positive [facility] ANTIBODY SCREEN NEGATIVE [facility] 11/08/2024 10:1 4 AM EST 11/08/2024 10:16 AM EST Narrative [facility] - 11/08/2024 12:24 PM EST [place] , [place] Neha Jaino DO [facility] Final Result [facility] documented in this encounter Visit Diagnoses Not on filedocumented in this encounter
--- OUTSIDE RECORDS SUMMARY | 2025-04-30 14:49 | XMS_ITS | Encounter Summary ---
Author Organization [facility] Address [address] [place] [address] Care Team Providers Care Drafting Layout Man Name Role Phone Unavailable Primary Care Provider Unavailabl e Encounter Details Date Type Department Care Team (Late st Contact Info) Description 03/04/2025 Abstract [facility] BCP OB [address] [place] [address] Juanis Esparza MA Social History Tobacco [...] Routine [facility] BCP OB [address] [place] [address] Mik Borrego [address] [place] [address] 05/12/2025 9:10 AM EDT [place] [address] Mik Borrego DO [address] [place] [address] [place] [address] 05/19/2025 9:40 AM EDT Routine [facility] BCP OB [address] [place] [phone] Mik Borrego, DO [address] [facility] [address] [place], [place] [id number] documented as of this encounter Visit Diagnoses Not on filedocumented in this encounter
--- OUTSIDE RECORDS SUMMARY | 2025-04-30 14:49 | XMS_ITS | Encounter Summary ---
Author Organization [facility] Address [address] [place] [address] Care Team Providers Care Elevator Builder Name Role Phone Unavailable Primary Care Provider Unavailabl e Encounter Details Date Type Department Care Team (Late st Contact Info) Description 02/05/2025 Abstract [facility] BCP OB [address] [place] [address] Mik Borrego, DO [facility] [place], [facility]11 Social History Tobacco Use Types Packs/Day Years [...] [facility] BCP OB [address] [place] [address] Mik Borrego, DO [address] [place], [place] [phone] 05/12/2025 9:10 AM EDT Routine [facility] BCP OB [address] [place] [address] Mik Borrego, DO [facility] [place], [facility]11 05/19/2025 9:40 AM EDT Routine NOMS BCP OB [address] [facility] [place] [address] Mik oBrrego, [address] [place] [address] documented as of this encounter Visit Diagnoses Not on filedocumented in this encounter
--- OUTSIDE RECORDS SUMMARY | 2025-04-30 14:49 | XMS_ITS | Encounter Summary ---
Author Organization [facility] Address [address] [place] [address] Care Team Providers Care Accounting Software Specialist Name Role Phone Unavailable Primary Care Provider Unavailabl e Encounter Details Date Type Department Care Team (Late st Contact Info) Description 01/17/2025 Abstract [facility] BCP OB [address] [place] [address] Mik Borrego DO [facility] [place], [facility]11 Social History Tobacco Use Types [...] Mik Borrego, DO [address] [place], [place] [id number] 05/12/2025 9:10 AM EDT Routine [facility] BCP OB [address] [place] [address] Mik Borrego, DO [facility] [place], [facility]11 05/19/2025 9:40 AM EDT Routine [facility] BCP OB [address] [facility] [place] [address] Mik Borrego, [address] [place] [address] documented as of this encounter Visit Diagnoses Not on filedocumented in this encounter
--- OUTSIDE RECORDS SUMMARY | 2025-04-30 14:49 | XMS_ITS | Encounter Summary ---
Author Organization [facility] Address [address] [place] [address] Care Team Providers Care Building Cleaning Supervisor Name Role Phone Unavailable Primary Care Provider Unavailabl e Encounter Details Date Type Department Care Team (Late st Contact Info) Description 09/16/2024 Abstract N[facility]S [facility] OB [address] [place] [address] Mik Borrego DO [facility] [place], [facility]11 Social History Tobacco Use Types Packs/Day Years [...] 9:10 AM EDT Routine NOMS BCP OB [facility] [place] [address] Mik Borrego DO [facility] [place], [place] [phone] 05/12/2025 9:10 AM EDT [place] [address] Mik Borrego [facility] [place], [place] [address] 05/19/2025 9:40 AM EDT Routine NOM[facility] BCP OB [address] [facility] [place] [address] Mik Borrego DO [address] [place] [address] [place] [address] documented as of this encounter Visit Diagnoses Not on filedocumented in this encounter
[2025-04-30 15:15] LABS: Hematocrit 37.8 % (36.0-48.0); Hemoglobin 12.5 g/dL (12.0-16.0); Immature Granulocytes Abs Auto 0.10 10^3/uL (0.00-0.03); Immature Granulocytes Pct Auto 0.9 % (0.0-0.5); Lymphocytes Absolute Auto 2.1 10^3/uL (1.2-3.8); Mean Corpuscular HGB Conc 33.1 g/dL (29.9-35.2); Mean Corpuscular Hemoglobin 28.6 pg (26.7-34.0); Mean Corpuscular Volume 86.5 fL (81.0-99.0); Platelet Count 231 10^3/uL (150-450); Red Blood Count 4.37 10^6/uL (4.20-5.40); White Blood Count 11.6 10^3/uL (4.0-11.0)
[2025-04-30 15:33] LABS: Alanine Aminotransferase 20 U/L (14-59); Albumin Globulin Ratio 0.6; Albumin Level 2.5 g/dL (3.4-5.0); Alkaline Phosphatase 136 U/L (46-116); Anion Gap 17.8; Aspartate Amino Transferase 19 U/L (15-37); Blood Urea Nitrogen 9.0 mg/dL (7.0-18.0); Calcium 9.3 mg/dL (8.5-10.1); Carbon Dioxide 22.6 mmol/L (21.0-32.0); Chloride 106 mmol/L (98-107); Estimated GFR (African America >60 (>=60 mL/min/1.73m^2); Estimated GFR (Non-African Ame >60 (>=60 mL/min/1.73m^2); Globulin 4.2 g/dL; Glucose 108 mg/dL (74-106); Potassium 3.4 mmol/L (3.5-5.1); Sodium 143 mmol/L (136-145); Total Protein 6.7 g/dL (6.4-8.2)
[2025-04-30 15:45] LABS: Uric Acid 5.7 mg/dL (2.6-6.0)
[2025-04-30 16:58] LABS: Protein Creatinine Ratio Urine 0.28; Total Protein Urine Random 17.5 mg/dL (<=11.9)
== END 2025-04-30 16:50 | disposition home or self-care (01) ==
PROVIDERS: Admitting Provider Obstetrics & Gynecology; Visit Provider Obstetrics & Gynecology
DX: O16.9 Unspecified maternal hypertension, unspecified trimester (principal); Z3A.00 Weeks of gestation of pregnancy not specified
CPT/HCPCS: 36415; 59025; 80053; 82570; 83615; 84156; 84550; 85025; G0378; G0379

== ENCOUNTER 2025-05-02 14:56 | Outpatient (OUT) | payer BC, SELFPAY ==
--- OUTSIDE RECORDS SUMMARY | 2013-09-18 06:00 | XMS_ITS | Continuity of Care Document ---
Author Organization [facility] Address [address] [place] [address], [address] [place] [address] Phone Care Team Providers Care Breakfast Host Name Role Phone Eva Arias MD Unavailable [...] Active Procedures Procedure Date Office Visit - SENIOR ORACLE SOA DEVELOPER Extended Advance Directives Directive Yes / No Effective Date File Name No Information Encounters Encounter Description Practice Location Reason(s) For Visit Diagnoses Date Provider Providers Copied on Encounter Office Visit - SENIOR ORACLE SOA DEVELOPER Extended [facility], [address] [place] [address], [address], [place], [place], [id number], tel:[phone] [facility] tooth grinder consult (chief complaint) Family planningAcne 3 Hugo Velasquez. [address] [place] [address], [address], [place], [id number]. tel:[phone] Referring Provider: Eva Arias MD, [address] [place] [address] [address], [place], [address]. tel:[phone] Family History Family Member Type Diagnosis Age At Onset No Information Payers Payer name Insurance type Covered alliance party ID Authoriza tidon(s) Prime / Durga CI [id number] Social History Type Description Quantity Date Captured [...] For Visit From encounter dated '09/18/2013 10:00'. tooth grinder consult (chief complaint). Description: The symptoms are [...] Date Complaint History Of Prese nt Illness tooth grinder consult The symptoms are reported as being [...] Mental Status Date Cognitive Assessment Orientation - [place] ed to time, place, person, situation. Patient Care Teams Name Effective Dates (start - stop) Status Members No Information
--- OUTSIDE RECORDS SUMMARY | 2024-05-20 04:15 | XMS_ITS ---
Author Organization [facility] Address [address] [facility] [place] [address] Care Team Providers Care Tour Production Supervisor Name Role Phone Olimpia Renee Primary Care Provider [phone] Steven Shane Unavailable [phone] REASON FOR VISIT MED RECHECK-AC Encounters Encounter Location Date Provider Diagnosis [facility] [address] [place] [address] 2023 Steven Shane Plan Of Treatment No Information Progress Notes * SEDAMARGIETABDOB:1990 (34 yo F)Acc No.[id number]:05/20/2024 Behavioral Health Patient: LE ALCALA Provider: LARRY aSnders :1990 A ge:33 Y S ex:Female Date:05/20/2024 Address:[address] [place], [place] [id number] Pcp:Olimpia Renee Subjective: * Chief Complaints: * 1 . MED RECHECK-AC. * Medical History: Objective: * Vitals: Assessment: Plan: * Treatment: * Images: * Electronic signature of LARRY Linder on 05/02/2025 at 02:58 PM EDT Sign off status: Pending * Provider: LARRY Sanders Date: 0 05/20/2024 Generated for Printi ng/Faxing/eTransmitting on: 05/02/2025 02:58 PM EDT
--- OUTSIDE RECORDS SUMMARY | 2024-06-04 10:45 | XMS_ITS ---
Author Organization [facility] es Address [address] [place] [address] Care Team Providers Care Solar Photovoltaic Systems Engineer Name Role Phone Olimpia Renee Primary Care Provider [phone] Diane Perdomo [phone] REASON FOR VISIT DISCUSS ASTHMA FLARE-AC Encounters Encounter Location Date Provider Diagnosis [address] [place] [address] 06/04/2024 Diane Perdomo Plan Of Treatment No Information Progress Notes * LE STACKDOB:1990 (34 yo F)Acc No.[id number]:06/04/2024 Progress Notes Patient: LE ALCALA Appointment Provider: Jose Perdomo NP :1990 A ge:33 Y S ex:Female Date:06/04/2024 Address:[address] [place], [place] [phone] Pcp:Olimpia Renee Subjective: * Chief Complaints: * 1 . DISCUSS ASTHMA FLARE-AC. * Medical History: Objective: * Vitals: Assessment: Plan: * Treatment: * Images: * Electronic signature of Ryan Perdomo CNP on 05/02/2025 at 02:58 PM EDT Sign off status: Pending * Appointment Provider: Jose Perdomo NP Date: 06/04/2024 Generated for Printi ng/Fachristinag/eTransmitting on: 05/02/2025 02:58 PM EDT
--- OUTSIDE RECORDS SUMMARY | 2025-04-21 15:20 | XMS_ITS | Encounter Summary ---
Author Organization [facility] Address [address] [place] [address] Care Team Providers Care Child Nutrition Director Name Role Phone Unavailable Primary Care Provider Unavailabl e Reason for Visit * Reason Comments Routine Visit Encounter Details Date Type Department Care Team ([facility] Contact Info) Description 04/21/2025 3:20 PM EDT Routine [facility] [address] [place] [id number] Mik Borrego [address] [place] [address] Third trimester ([facility]); 32 weeks gestation of ([facility]); Insulin controlled gestational diabetes mellitus (GDM) in third trimester ([facility]); Multigravida of advanced maternal age in third trimester ([facility]); Hypertension, unspecified type Social History Tobacco [...] Diagnosis Date Noted Vaginal bleeding affecting early ([facility]) 11/06/2024 headache, antepartum ([facility]) 12/25/2024 Elevated blood pressure affecting , antepartum ([facility]) 01/16/2025 Resolved Ambulatory Problems Diagnosis Date Noted No Resolved Ambulatory Problems Past Medical History: Diagnosis Date ADHD (attention deficit hyperactivity disorder) Anxiety Gestational diabetes ([facility]) Hypertension Insulin resistance PCOS (polycystic ovarian syndrome) HISTORY PAST MEDICAL HISTORY SOCIAL HISTORY Past Medical History: Diagnosis Date ADHD (attention deficit hyperactivity disorder) Anxiety Gestational diabetes ([facility]) Hypertension Insulin resistance PCOS (polycystic ovarian [...] ASSESSMENT & PLAN ICD-10-CM 1. Third trimester ([facility]) Z34.93 2. 32 weeks gestation of ([facility]) Z3A.32 Return OB: Patient presents today for [...] AM EDT Routine [facility] [address] [place] [id number] Mik Borrego DO [facility] [place] [address] 05/12/2025 9:10 AM EDT [place] [address] Mik Borrego DO [facility] [place] [address] 05/19/2025 9:40 AM EDT [place] [address] Mik Borrego DO [address] [place] [address] Scheduled Orders Name Type Priority Associated Diagnoses Orde r Schedule US OB follow up transabdominal approach Imaging Routine Insulin controlled gestational diabetes mellitus (GDM) in third trimester ([facility]) Expected: 04/21/2025, Expires: 08/21/2025 documented as of this encounter Procedures Procedure Name Priority Date/Time Associated Diagnosis Comments POCT URINALYSIS DIPSTICK Routine 04/21/2025 3:40 PM EDT Third trimester ([facility]) documented in this encounter Results * [...] this encounter Visit Diagnoses Diagnosis Third trimester ([facility]) state, incidental 32 weeks gestation of ([facility]) Insulin controlled gestational diabetes mellitus (GDM) in third trimester ([facility]) Multigravida of advanced maternal age in third trimester ([facility]) Hypertension, unspecified type documented in this encounter
--- OUTSIDE RECORDS SUMMARY | 2025-04-30 14:00 | XMS_ITS | Encounter Summary ---
Author Organization [facility] Address [address] [place] [address] Care Team Providers Care Apparatus Operator Name Role Phone Unavailable Primary Care Provider Unavailabl e Reason for Visit * Reason Comments Routine Visit Blood Pressure Check Encounter Details Date Type Department Care Team (Late st Contact Info) Description 04/30/2025 2:00 PM EDT Routine [facility] [address] [facility] [place] [phone] Lindsey Guajardo PA [address] [facility] [place] [address] 33 weeks gestation of ([facility]HS-HCC); Third trimester (HHS-HCC); High blood pressure affecting in third trimester, antepartum (HHS-HCC); induced hypertension, antepartum (HHS-HCC) Social History Tobacco Use Types Packs/Day Years [...] Sign Reading Time Taken Comments Blood Pressure 146/90 04/30/2025 2:13 PM EDT Pulse - - Temperature - - Respiratory Rate - - Oxygen Saturation - - Inhaled Oxygen Concentration - - Weight 99.2 kg (218 lb 12.8 oz) 04/30/2025 2:13 PM EDT Height - - Body Mass Index 34.27 05/06/2024 3:23 PM EDT documented in this encounter Progress Notes * LISA Lomeli - 04/30/2025 2:00 PM EDT Reason for Appointment: Patient ID: Julissa Weems is a 34 y.o. female who presents for Routine Visit and Blood Pressure Check Patient presents today for Return OB appointment. MEDICATIONS Current Outpatient Medications Medication Instructions albuterol HFA 90 mcg/act inhaler Alcohol Swabs (Alcohol Prep Pad) 70 % pads 1 Pad, Topical, Daily, Use four times daily to check FSBS. Alcohol Swabs (Alcohol Prep Pad) 70 % pads 1 Pad, Topical, Daily, Use four times daily to check FSBS. Blood Glucose Monitoring Suppl ([employer] Glucometer) w/Device kit 1 kit, Does not [...] Diagnosis Date Noted Vaginal bleeding affecting early ([facility]) 11/06/2024 headache, antepartum ([facility]) 12/25/2024 Elevated blood pressure affecting , antepartum ([facility]) 01/16/2025 Insulin controlled gestational diabetes mellitus (GDM) in third trimester ([facility]) 04/21/2025 Multigravida of advanced maternal age in third trimester ([facility]) 04/21/2025 Hypertension 04/21/2025 Third trimester ([facility]) 04/21/2025 Resolved Ambulatory Problems Diagnosis Date Noted No Resolved Ambulatory Problems Past Medical History: Diagnosis Date ADHD (attention deficit hyperactivity disorder) Anxiety Gestational diabetes ([facility]) Insulin resistance PCOS (polycystic ovarian syndrome) HISTORY PAST MEDICAL HISTORY SOCIAL HISTORY Past Medical History: Diagnosis Date ADHD (attention deficit hyperactivity disorder) Anxiety Gestational diabetes ([facility]) Hypertension Insulin resistance PCOS (polycystic ovarian syndrome) [...] Review of Systems: Review of Systems Constitutional: Positive for fatigue. HENT: Negative. Eyes: Positive for visual disturbance. Respiratory: Negative. Cardiovascular: Negative. Gastrointestinal: Negative. Genitourinary: Negative. Musculoskeletal: Negative. Bilateral lower extremity edema Skin: Negative. Neurological: Positive for headaches. All other systems reviewed and are negative. Hematological: Negative. Endocrine: Negative. Allergic/Immunologic: Negative. OBJECTIVE Objective: Physical Exam Constitutional: Appearance: Normal appearance. She is normal weight. HENT: Head: Normocephalic. Cardiovascular: Rate and Rhythm: Normal rate. Pulses: Normal pulses. Pulmonary: Effort: Pulmonary effort is normal. Breath sounds: Normal breath sounds. Abdominal: Palpations: Abdomen is soft. Musculoskeletal: General: Swelling present. Normal range of motion. Right lower leg: Edema present. Left lower leg: Edema present. Neurological: General: No focal deficit present. Mental Status: She is alert and oriented to person, place, and time. Skin: General: Skin is warm and dry. Psychiatric: Mood and Affect: Mood normal. Behavior: Behavior normal. Thought Content: Thought content normal. Judgment: Judgment normal. Vitals and nursing note reviewed. Vitals: Estimated body mass index is 34.27 kg/m?? as calculated from the following: Height as of 7/15/24: 5' 7 . Weight as of this encounter: 218 lb 12.8 oz. BP: 146/90 Patient's last menstrual period was 08/23/2024. ASSESSMENT & PLAN ICD-10-CM 1. 33 weeks gestation of ([facility]) Z3A.33 POCT urinalysis dipstick manually resulted 2. Third trimester ([facility]) Z34.93 POCT urinalysis dipstick manually resulted 3. High blood pressure affecting in third trimester, antepartum ([facility]) O16.3 Patient presents today for headaches, elevated BP and increased urinary symptoms with decreased output. Patient taking procardia XL at 60mg. Took BP at work today 160/90 with headaches and floaters, called office and came in. BP 146/90. Patient will be sent to OB unit and evaluated for preeclampsiaand possible transfer. Patient and agree with plan of care Documented by LISA Lomeli on behalf of: LISA Lomeli documented in this encounter Plan of Treatment Upcoming Encounters Date Type Department Care Team (Late st Contact Info) Description 05/05/2025 9:10 AM EDT Routine [facility] [address] [facility] [place] [phone] Mik Borrego, [address] [place] [address] 05/12/2025 9:10 AM EDT Routine [facility] OB [address] [place], [place] [address] [phone] Mik Borrego, [address] [place] [address] 05/19/2025 9:40 AM EDT Routine [facility] OB [address] [place] [address] [place] [phone] Mik Borrego, [address] [place], [place] [id number] Scheduled Orders Name Type Priority Associated Diagnoses Orde r Schedule Creatinine Lab Routine induced hypertension, antepartum ([facility]) Expected: 04/30/2025 (Approximate), Expires: 04/30/2026 Protein, urine, 24 hour Lab Routine induced hypertension, antepartum ([facility]) Expected: 04/30/2025 (Approximate), Expires: 04/30/2026 Pt and ptt Lab Routine induced hypertension, antepartum ([facility]) Expected: 04/30/2025, Expires: 04/30/2026 CBC and differential Lab Routine induced hypertension, antepartum ([facility]) Expected: 04/30/2025 (Approximate), Expires: 04/30/2026 Uric acid Lab Routine induced hypertension, antepartum ([facility]) Expected: 04/30/2025 (Approximate), Expires: 04/30/2026 Lactate dehydrogenase Lab Routine induced hypertension, antepartum ([facility]) Expected: 04/30/2025, Expires: 04/30/2026 ALT Lab Routine induced hypertension, antepartum ([facility]) Expected: 04/30/2025 (Approximate), Expires: 04/30/2026 AST Lab Routine induced hypertension, antepartum ([facility]) Expected: 04/30/2025 (Approximate), Expires: 04/30/2026 BUN Lab Routine induced hypertension, antepartum ([facility]) Expected: 04/30/2025, Expires: 04/30/2026 documented as of this encounter Procedures Procedure Name Priority Date/Time Associated Diagnosis Comments POCT URINALYSIS DIPSTICK Routine 04/30/2025 2:19 PM EDT 33 weeks gestation of ([facility]) Third trimester ([facility]) documented in this encounter Results * (ABNORMAL) POCT urinalysis dipstick manually resulted (04/30/2025 2:19 PM EDT) Color, UA Yellow Clarity, UA Clear Glucose, UA Negative Negative - 2000(110) ++++ mg/dL Bilirubin, UA Negative Negative - 4(70) +++ mg/dL Ketones, UA Negative Negative - 160(16) ++++ mg/dL Spec Grav, UA 1.010 1 - 1.03 Blood, UA Negative Negative - 50 Albin/mcL pH, UA 6.0 5 - 9 Protein, UA Trace Negative - 2000(20) ++++ mg/dL Urobilinogen, UA 1.0 0.2 - 12 mg/dL Leukocytes, UA Negative Negative - 500+++ Jack/mcL Nitrite, UA Negative Negative - Positive Urine 04/30/2025 2:19 PM EDT Lindsey GONZALEZ POINT OF CARE TEST ENTER/EDIT OR DERABLES Final Result documented in this encounter Visit Diagnoses Diagnosis 33 weeks gestation of (HHS-HCC) Third trimester (HHS-HCC) state, incidental High blood pressure affecting in third trimester, antepartum ([facility]HS-HCC) induced hypertension, antepartum ([facility]HS-HCC) Transient hypertension of , antepartum documented in this encounter
--- OUTSIDE RECORDS SUMMARY | 2025-05-02 14:58 | XMS_ITS | Encounter Summary ---
Author Organization [facility] Address [address] [place] [address] Care Team Providers Care Agricultural Extension Educator Name Role Phone Unavailable Primary Care Provider Unavailabl e Encounter Details Date Type Department Care Team (Late st Contact Info) Description 02/04/2025 Abstract [facility] BCP OB [address] [place] [address] Mik Borrego DO [facility] [place], [id number] Social History Tobacco Use Types Packs/Day [...] Routine [facility]OMS BCP OB [address] [place] [address] Mik Borrego, DO [address] [place], [id number] 05/12/2025 9:10 AM EDT Routine [facility] BCP OB [address] [place] [address] Mik Borrego, DO [facility] [place], [id number] 05/19/2025 9:40 AM EDT Routine [facility] BCP OB [address] [facility] [place] [address] Mik Borrego, [address] [place] [address] documented as of this encounter Visit Diagnoses Not on filedocumented in this encounter
--- OUTSIDE RECORDS SUMMARY | 2025-05-02 14:58 | XMS_ITS | Encounter Summary ---
Author Organization [facility] Address [address] [place] [address] Care Team Providers Care Horse Race Timer Name Role Phone Unavailable Primary Care Provider Unavailabl e Encounter Details Date Type Department Care Team (Late st Contact Info) Description 02/03/2025 Abstract [facility] BCP OB [address] [place] [address] Mik Borrego DO [facility] [place], [facility]11 Social History Tobacco Use [...] Mik Borrego, DO [address] [place], [facility] 05/12/2025 9:10 AM EDT Routine [facility] BCP OB [address] [place] [address] Mik Borrego DO [facility] [place], [facility] 05/19/2025 9:40 AM EDT Routine [facility] BCP OB [address] [facility] [place] [address] Mik Borrego, [address] [place] [address] documented as of this encounter Visit Diagnoses Not on filedocumented in this encounter
--- OUTSIDE RECORDS SUMMARY | 2025-05-02 14:58 | XMS_ITS | Encounter Summary ---
Author Organization [facility] Address [address] [place] [address] Care Team Providers Care Renal Dialysis Technician Name Role Phone Unavailable Primary Care Provider Unavailabl e Encounter Details Date Type Department Care Team (Late st Contact Info) Description 01/22/2025 Abstract [facility] BCP OB [address] [place] [address] Mik Borrego DO [facility] [place], [facility] [...] Routine [facility]S BCP OB [address] [place] [address] Mik Borrego, DO [address] [place], [place] [id number] 05/12/2025 9:10 AM EDT Routine [facility] BCP OB [address] [place] [address] Mik Borrego, DO [facility] [place], [facility]11 05/19/2025 9:40 AM EDT Routine [facility] BCP OB [address] [facility] [place] [address] Mik Borrego, [address] [place] [address] documented as of this encounter Visit Diagnoses Not on filedocumented in this encounter
--- OUTSIDE RECORDS SUMMARY | 2025-05-02 14:58 | XMS_ITS | Encounter Summary ---
Author Organization [facility] Address [address] [place] [address] Care Team Providers Care Regional Planner Name Role Phone Unavailable Primary Care Provider Unavailabl e Encounter Details Date Type Department Care Team (Late st Contact Info) Description 02/04/2025 Abstract [facility] BCP OB [address] [place] [address] Mik Borrego DO [facility] [place], [facility]11 Social History Tobacco Use [...] Routine [facility] BCP OB [address] [place] [address] Mik Borrego, DO [address] [place], [facility]11 05/12/2025 9:10 AM EDT Routine [facility] BCP OB [address] [place] [address] Mik Borrego, DO [facility] [place], [facility]11 05/19/2025 9:40 AM EDT Routine [facility] BCP OB [address] [facility] [place] [address] Mik Borrego, [address] [place] [address] documented as of this encounter Visit Diagnoses Not on filedocumented in this encounter
--- OUTSIDE RECORDS SUMMARY | 2025-05-02 14:58 | XMS_ITS | Clinical Summary ---
Author Organization [facility] Address [id number] [address] [place] [address] Care Team Providers Care Operations Supervisor 2Nd Shift Name Role Phone Unavailable Primary Care Provider [...] Description 04/01/2025 Orders Only Maternal- Medicine at [facility] [address] [place] [address] Michelle Ashraf RN Chronic hypertension affecting (Primary Dx); Gestational diabetes mellitus (GDM), antepartum, gestational diabetes method of control unspecified 03/31/2025 10:39 AM EDT - 03/31/2025 11:59 PM EDT Hospital Encounter [facility] Imaging [address] [place] [address] Chronic hypertension affecting ; Advanced maternal age in multigravida, second trimester; Gestational diabetes mellitus (GDM), antepartum, gestational diabetes method of control unspecified Discharge Disposition: Home 03/31/2025 Travel 03/04/2025 Orders Only Maternal- Medicine at [facility] [address] [facility] [place] [address] Oralia Elliott CMA Chronic hypertension affecting (Primary Dx); Advanced maternal age in multigravida, second trimester; Gestational diabetes mellitus (GDM), antepartum, gestational diabetes method of control unspecified 03/03/2025 10:32 AM EDT - 03/03/2025 11:59 PM EDT Hospital Encounter [facility] [address] [place] [address] Chronic hypertension affecting ; Advanced maternal age in multigravida, second trimester; Prediabetes in mother during ; Gestational diabetes mellitus (GDM), antepartum, gestational diabetes method of control unspecified Discharge Disposition: Home 03/03/2025 Travel 02/04/2025 Telephone Maternal- Medicine at [facility] [address] [place] [address] Yamila Rayo LPN from Last 3 Months [...] period is included. Anatomical Region Laterality Modality OB-PILE DRIVING SUPERINTENDENT Ultrasound 03/31/2025 11:2 5 AM EDT Narrative 03/31/2025 1:02 PM EDT NAME: SEDA LUJAN : 1990 SEX: F Accession Number: [id number] ORDERING PHYSICIAN: LORENZA IRVIN REFERRING PHYSICIAN: NEHA CAMPBELL Coding ----- --------- Procedures 47094: Follow-up Ultrasound, per fetus Indication ----- --------- Gestational diabetes, Chronic hypertension affecting , Obesity in , AMA- Supervision of elderly History ----- --------- OB History 1. Para 0 [id number] Maternal Assessment ----- --------- Physical Exam Height [...] EFW (oz) 12 oz EFW by: Hadlock (NWO-[id number]-FL) Extended Tibia 50.8 mm 30w 2d 75% Santhosh [employer] Construction Equipment Mechanic 4.3 mm CM 4.6 mm 3% Nicolaides [...] LUJAN : 1990 SEX: F Accession Number: [id number] ORDERING PHYSICIAN: LORENZA IRVIN REFERRING PHYSICIAN: NEHA CAMPBELL Coding ----- --------- Procedures 56974: Follow-up Ultrasound, per fetus Indication ----- --------- Gestational diabetes, Chronic hypertension affecting , Obesityin , AMA- Supervision of elderly History ----- --------- OB History 1. Para 0 [id number] Maternal Assessment ----- --------- Physical Exam Height [...] EFW (oz) 12 oz EFW by: Hadlock (MDW-XS-FX-FL) Extended Tibia 50.8 mm 30w 2d 75% Santhosh [employer] Equipment Mechanic 4.3 mm CM 4.6 mm 3% Nicolaides [...] byprimary OB provider unless otherwise specified by [facility]. Results forwarded to ordering provider so they can follow up with thepatient as necessary. us Lorenza Irvin MD [facility] ORDERABLES Final Re sult from Last 3 Months Insurance ANTHEM
--- OUTSIDE RECORDS SUMMARY | 2025-05-02 14:58 | XMS_ITS | Encounter Summary ---
Author Organization [facility] Address [address] [place] [address] Care Team Providers Care Federal Java Developer Name Role Phone Unavailable Primary Care Provider Unavailabl e Encounter Details Date Type Department Care Team (Late st Contact Info) Description 01/22/2025 Abstract [facility] BCP OB [address] [place] [address] Mik Borrego DO [facility] [place], [facility]11 Social History Tobacco Use Types Packs/Day [...] Routine [facility] BCP OB [address] [place] [address] Mik Borrego, DO [address] [place], [place] [id number] 05/12/2025 9:10 AM EDT Routine [facility] BCP OB [address] [place] [address] Mik Borrego, DO [facility] [place], [facility]11 05/19/2025 9:40 AM EDT Routine [facility] BCP OB [address] [facility] [place] [address] Mik Borrego, [address] [place] [address] documented as of this encounter Visit Diagnoses Not on filedocumented in this encounter
--- OUTSIDE RECORDS SUMMARY | 2025-05-02 14:59 | XMS_ITS | Encounter Summary ---
Author Organization [facility] Address [address] [place] [address] Care Team Providers Care Coroner Forensic Technician Name Role Phone Unavailable Primary Care Provider Unavailabl e Encounter Details Date Type Department Care Team (Late st Contact Info) Description 04/23/2025 Clinisync Result Encounter [facility] External Department Unsolicited Neha Borrego, DO [address] [place], [facility]11 Social History [...] [facility] BCP [place] [address] [place] [phone] Neha Borrego, DO [address] [place], [facility]11 05/12/2025 9:10 AM EDT Routine [facility] BCP OB [address] [place] [phone] Neha Borrego, DO [address] [place], [place] [phone] 05/19/2025 9:40 AM EDT Routine [facility] BCP OB [address] [facility] [place] [phone] Neha Borrego DO [address] [facility] [place] [address] documented as of this encounter Procedures Procedure Name Priority Date/Time Associated Diagnosis Comments US OB BPP W NON-STRESS 04/23/2025 8:03 AM EDT documented in this encounter Results * US OB BPP W NON-STRESS (04/23/2025 8:03 AM EDT) Anatomical Region Laterality Modality Other 04/23/2025 8:03 AM EDT Narrative 04/23/2025 9:46 AM EDT The [address] [address] Ultrasound Report Signed Patient: LE WEEMS MR#: [id number] : 1990 Acct:[id number] Age/Sex: 34 / F ADM Date: 04/22/25 Loc: US Attending Dr: Neha Borrego D.O. Ordering Physician: Neha Borrego D.O. Date of Service: 04/22/25 Procedure(s): US OB BPP w non-stress Accession Number(s): [id number] cc: Neha Borrego D.O.; Physician,Non-Staff M.D. The [address] [address] Patient Name: LE WEEMS MRN: [id number] date: 1990 Sex: F Assigned Patient Location: US Current Patient Location: Accession/Order Number: [id number] Exam Date: 04/23/2025 08:01 Report Date: 04/23/2025 [...] Olivares M.D. 04/23/2025 8:03 AM Dictation Location: [place] [address] Electronically authenticated by: [id number] Y Date: 04/23/2025 08:03 Dictated By: Mariam Olivares M.D. Signed By: 04/23/25 0946 DD/ 0803 TD/TT: Fuse Cup Expander: Procedure Note Radiology, Radiologist, - 04/23/2025 [place] [address] Ultrasound Report Signed Patient: LE WEEMSMR#: [id number] : 1990Acct:[id number] Age/Sex: 34 / FADM Date: 04/22/25 Loc: US Attending Dr: Neha Borrego D.O. Ordering Physician: Neha Borrego D.O. Date of Service: 04/22/25 Procedure(s): US OB BPP w non-stress Accession Number(s): [id number] cc: Neha Borrego D.O.; Physician,Non-Staff Dileep The [place] [id number] Patient Name: LE WEEMS MRN: [facility]:[id number] date: 1990 Sex: F Assigned Patient Location: Current Patient Location: Accession/Order Number: [id number] Exam Date: 04/23/2025 08:01 Report Date: 04/23/2025 [...] Olivares M.D. 04/23/2025 8:03 AM Dictation Location: [place] [address] Electronically authenticated by: [id number] Y Date: 508:03 Dictated By: Mariam Olivares M.D. Signed By:04/23/25 0946 DD/ 0803 TD/TT: Fuse Cup Expander: Neha Borrego DO [facility] Final Result documented in this encounter Visit Diagnoses Not on filedocumented in this encounter
--- OUTSIDE RECORDS SUMMARY | 2025-05-02 14:59 | XMS_ITS | Encounter Summary ---
Author Organization [facility] Address [address] [place] [address] Care Team Providers Care Burring Machine Operator Name Role Phone Unavailable Primary Care Provider Unavailabl e Encounter Details Date Type Department Care Team (Late st Contact Info) Description 10/08/2024 Orders Only [facility] BCP OB [address] [place] [phone] Larisa Chowdary MA [address] [place] [address] [place] [address] Social History Tobacco Use Types Packs/Day Years [...] 9:10 AM EDT Routine NOM[facility] BCP OB [facility] [place] [phone] Mik Borrego [address] [place] [address] 05/12/2025 9:10 AM EDT Routine [facility]OM[facility] BCP OB [facility] [place] [place] [phone] Mik Borrego DO [facility] [place] [address] 05/19/2025 9:40 AM EDT Routine [facility]OM[facility] BCP OB [facility] [place] [address] Mik Borrego, DO [address] [facility] [place] [address] documented as of this encounter Procedures Procedure [...]
--- OUTSIDE RECORDS SUMMARY | 2025-05-02 14:59 | XMS_ITS | Encounter Summary ---
Author Organization [facility] Address [address] [place] [address] Care Team Providers Care Plush Cutter Name Role Phone Unavailable Primary Care Provider Unavailabl e Encounter Details Date Type Department Care Team (Late st Contact Info) Description 04/21/2025 Bamboo flowsheet [facility] BCP OB [address] [place] [address] Mik Borrego, DO [address] [place], [place] [address] Social History Tobacco Use Types Packs/Day Years [...] [address] Mik Borrego, DO [address] [place], [place] [address] 05/12/2025 9:10 AM EDT Routine [facility] BCP OB [address] [place] [address] Mik Borrego, DO [address] [place], [facility]11 05/19/2025 9:40 AM EDT Routine [facility] BCP OB [address] [facility] [place] [address] Mik Borrego, [address] [place], [place] [phone] documented as of this encounter Visit Diagnoses Not on filedocumented in this encounter
--- OUTSIDE RECORDS SUMMARY | 2025-05-02 14:59 | XMS_ITS | Encounter Summary ---
Author Organization [facility] Address [address] [place] [address] Care Team Providers Care Wholesale Manager Name Role Phone Unavailable Primary Care Provider Unavailabl e Encounter Details Date Type Department Care Team (Late st Contact Info) Description 11/08/2024 Clinisync Result Encounter NOMS External Department Unsolicited Neha Borrego, DO [address] [place], [facility]11 Social History Tobacco Use Types Packs/Day [...] [facility] BCP OB [address] [place] [phone] Neha Borrego, DO [address] [place], [facility]11 05/12/2025 9:10 AM EDT Routine [facility] BCP OB [address] [place] [phone] Neha Borrego, DO [address] [place], [place] [phone] 05/19/2025 9:40 AM EDT Routine [facility]OM[facility] BCP OB [address] [place] [place] [phone] Neha Borrego, [address] [facility] [place] [address] documented as of this encounter Procedures Procedure [...] AM EST Narrative 11/08/2024 11:35 AM EST [address] [address] Ultrasound Report Signed Patient: LE WEEMS MR#: [id number] : 1990 Acct:[id number] Age/Sex: 33 / F ADM Date: 11/08/24 Loc: US Attending Dr: Neha Borrego D.O. Ordering Physician: Neha Borrego D.O. Date of Service: 11/08/24 Procedure(s): US OB transvaginal Accession Number(s): [id number] cc: Neha Borrego D.O.; Physician,Non-Staff Dileep The [place] [id number] Patient Name: LE WEEMS MRN: [id number] date: 1990 Sex: F Assigned Patient Location: US Current Patient Location: US Accession/Order Number: [id number] Exam Date: 11/08/2024 10:18 Report Date: 11/08/2024 [...] Signed By: 11/08/24 1135 DD/ 1132 TD/TT: Regulatory Affairs Director: Procedure Note Radiology, Radiologist, MD - 11/08/2024 [place] [address] Ultrasound Report Signed Patient: LE WEEMSMR#: [id number] : 1990Acct:[id number] Age/Sex: 33 / FADM Date: 11/08/24 Loc: US Attending Dr: Neha Borrego D.O. Ordering Physician: Neha Borrego D.O. Date of Service: 11/08/24 Procedure(s): US OB transvaginal Accession Number(s): [id number] cc: Neha Borrego D.O.; Physician,Non-Staff Dileep The [place] [address] Patient Name: LE WEEMS MRN: [id number] date: 1990 Sex: F Assigned Patient Location: US Current Patient Location: US Accession/Order Number: [id number] Exam Date: 11/08/2024 10:18 Report Date: 11/08/2024 [...] M.D. Signed By:11/08/24 1135 DD/ 1132 TD/TT: Regulatory Affairs Director: us Neha Borrego DO [facility] Final Result * HBSAG SCREEN (11/08/2024 10:14 AM EST) HBSAG SCREEN Negative Negative [facility] Comment: Performed at: - Lab[address] [id number] Community Health Advocate: Toni Espinal PhD, Phone: [phone] 11/08/2024 10:1 4 AM EST 11/08/2024 10:16 AM EST Narrative [facility] - 11/09/2024 12:09 PM EST [facility] [place] BLOOD ORDERABLES Final Resul t Performing Organization Address [facility] de Phone Number [facility] * RAPID PLASMA REAGIN, QUANT (11/08/2024 10:14 AM EST) RAPID PLASMA REAGIN, QUANT Non Reactive NonRea<1: 1 titer [facility] Comment: Please Note: This test does not meet current guidelines for screening and diagnosis of syphilis. This test is intended for following treatment response in patients being treated for syphilis infection. To screen for syphilis infection, a reflex cascade that includes both RPR and a treponema-specific assay should be utilized, such as Treponema pallidum (Syphilis) Screening [place] (959840) or Rapid Plasma Reagin (RPR) Test With Reflex to Quantitative RPR and Confirmatory Treponema pallidum Antibodies (975183). Performed at: [address] [id number] Community Health Advocate: Toni Espinal PhD, Phone: [phone] 11/08/2024 10:1 4 AM EST 11/08/2024 10:16 AM EST Narrative [facility] - 11/09/2024 12:09 PM EST [facility] LAB BLOOD ORDERABLES Final Resul t Performing Organization Address [facility] de Phone Number [facility] * HCV ANTIBODY RFX TO QUANT PCR (11/08/2024 10:14 AM EST) HCV AB Non Reactive Non Reactive [facility] INTERPRETATION: Comment . [facility] Comment: Not infected with HCV unless early or acute infection is suspected (which may be delayed in an immunocompromised individual), or other evidence exists to indicate HCV infection. 11/08/2024 10:1 4 AM EST 11/08/2024 10:16 AM EST Narrative [facility] - 11/09/2024 5:07 AM EST Neha Elmo DO LAB BLOOD ORDERABLES Final Resul t Performing Organization Address City/[facility]/ZIP Co de Phone Number [facility] * HIV AB/P24 AG WITH REFLEX (11/08/2024 10:14 AM EST) HIV AB/P24 AG SCREEN Non Reactive Non Reactive [facility] Comment: HIV-1/HIV-2 antibodies and HIV-1 p24 antigen were NOT detected. There is no laboratory evidence of HIV infection. HIV Negative Performed at: [facility] Lab[address] [id number] Community Health Advocate: Toni Espinal PhD, Phone: [phone] 11/08/2024 10:1 4 AM EST 11/08/2024 10:16 AM EST Narrative [facility] - 11/09/2024 5:07 AM EST Neha Elmo DO LAB BLOOD ORDERABLES Final Resul t Performing Organization Address [facility] Co de Phone Number [facility] * ALL RUBELLA IGG AB (11/08/2024 10:14 AM EST) RUBELLA ANTIBODIES, IGG 1.78 Immune >0.99 index [facility] Comment: Non-immune <0.90 Equivocal 0.90 - 0.99 Immune >0.99 11/08/2024 10:1 4 AM EST 11/08/2024 10:16 AM EST Narrative [facility] - 11/09/2024 5:07 AM EST Neha Elmo DO [facility] Final Result Performing Organization Address City/[facility]/ZIP Co de Phone Number [facility] * ALL TYPE AND SCREEN (11/08/2024 10:14 AM EST) BLOOD TYPE B Positive [facility] ANTIBODY SCREEN NEGATIVE [facility] 11/08/2024 10:1 4 AM EST 11/08/2024 10:16 AM EST Narrative [facility] - 11/08/2024 12:24 PM EST [facility] , [place] Neha Jaino DO [facility] Final Result [facility] documented in this encounter Visit Diagnoses Not on filedocumented in this encounter
--- OUTSIDE RECORDS SUMMARY | 2025-05-02 14:59 | XMS_ITS | Encounter Summary ---
Author Organization [facility] Address [address] [place] [address] Care Team Providers Care Cab Worker Name Role Phone Unavailable Primary Care Provider Unavailabl e Encounter Details Date Type Department Care Team (Late st Contact Info) Description 03/04/2025 Abstract [facility] BCP OB [address] [facility] [place] [address] Juanis Esparza MA Social History Tobacco [...] Routine [facility] BCP OB [address] [place] [address] Mik Borrego [address] [place] [address] 05/12/2025 9:10 AM EDT [place] [address] Mik Borrego DO [address] [place] [address] [place] [address] 05/19/2025 9:40 AM EDT Routine [facility]OM[facility] BCP OB [address] [place] [phone] Mik Borrego, DO [address] [facility] [address] [place] [place], [place] [address] documented as of this encounter Visit Diagnoses Not on filedocumented in this encounter
--- OUTSIDE RECORDS SUMMARY | 2025-05-02 14:59 | XMS_ITS | Encounter Summary ---
Author Organization [facility] Address [address] [place] [address] Care Team Providers Care President + Publisher Name Role Phone Unavailable Primary Care Provider Unavailabl e Encounter Details Date Type Department Care Team (Late st Contact Info) Description 02/05/2025 Abstract [facility] BCP OB [address] [place] [address] Mik Borrego DO [facility] [place], [facility]11 Social History Tobacco Use Types Packs/Day [...] Routine NOMS BCP OB [address] [place] [address] Mik Borrego, DO [address] [place], [place] [phone] 05/12/2025 9:10 AM EDT Routine [facility] BCP OB [address] [place] [address] Mik Borrego, DO [facility] [place], [facility]11 05/19/2025 9:40 AM EDT Routine NOMS BCP OB [address] [facility] [address] Mik Borrego, [address] [place] [address] documented as of this encounter Visit Diagnoses Not on filedocumented in this encounter
--- OUTSIDE RECORDS SUMMARY | 2025-05-02 14:59 | XMS_ITS | Encounter Summary ---
Author Organization [facility] Address [address] [place] [address] Care Team Providers Care Director Of Global Talent Name Role Phone Unavailable Primary Care Provider Unavailabl e Encounter Details Date Type Department Care Team (Late st Contact Info) Description 04/30/2025 Clinisync Result Encounter NOMS External Department Unsolicited Neha Borrego, DO [address] [place], [facility]11 Social History Tobacco Use Types Packs/Day [...] Routine NOMS BCP OB [address] [place] [phone] Neha Borrego, DO [address] [place], [facility]11 05/12/2025 9:10 AM EDT Routine NOMS BCP OB [address] [place] [phone] Neha Borrego, DO [address] [place], [facility]11 05/19/2025 9:40 AM EDT Routine [facility] BCP OB [address] [facility] [place] [address] Neha Borrego DO [address] [facility] [place] [address] documented as of this encounter Procedures Procedure Name Priority Date/Time Associated Diagnosis Comments US OB GROWTH 04/30/2025 7:10 AM EDT documented in this encounter Results * US OB GROWTH (04/30/2025 7:10 AM EDT) Anatomical Region Laterality Modality Other 04/30/2025 7:10 AM EDT Narrative 04/30/2025 7:13 AM EDT [address] [address] Ultrasound Report Signed Patient: LE WEEMS MR#: [id number] : 1990 Acct:[id number] Age/Sex: 34 / F ADM Date: 04/29/25 Loc: US Attending Dr: Neha Borrego D.O. Ordering Physician: Neha Borrego D.O. Date of Service: 04/29/25 Procedure(s): US OB growth Accession Number(s): [id number] cc: Neha Borrego D.O.; Physician,Non-Staff M.DNikos The [address] [address] Patient Name: LE WEEMS MRN: [facility]:[id number] date: 1990 Sex: F Assigned Patient Location: Current Patient Location: Accession/Order Number: [id number] Exam Date: 04/30/2025 07:02 Report Date: 04/30/2025 [...] Olivares M.D. 04/30/2025 7:10 AM Dictation Location: [place] [address] Electronically authenticated by: [id number] Y Date: 04/30/2025 07:10 Dictated By: Mariam Olivares M.D. Signed By: 04/30/25 0713 DD/ 0710 TD/TT: Rail Car Welder: Procedure Note Radiology, Radiologist, - 04/30/[address] [address] Ultrasound Report Signed Patient: LE WEEMSMR#: [id number] : 1990Acct:[id number] Age/Sex: 34 / FADM Date: 04/29/25 Loc: US Attending Dr: Neha Borrego D.O. Ordering Physician: Neha Borrego D.O. Date of Service: 04/29/25 Procedure(s): US OB growth Accession Number(s): [id number] cc: Neha Borrego D.O.; Physician,Non-Staff M.David [place] [address] Patient Name: LE WEEMS MRN: [facility]:[id number] date: 1990 Sex: F Assigned Patient Location: US Current Patient Location: Accession/Order Number: [id number] Exam Date: 04/30/2025 07:02 Report Date: 04/30/2025 [...] Olivares M.D. 04/30/2025 7:10 AM Dictation Location: [place] [address] Electronically authenticated by: [id number] Y Date: 7:10 Dictated By: Mariam Olivares M.D. Signed By:04/30/25 0713 DD/ 0710 TD/TT: Rail Car Welder: Neha Borrego DO [facility] Final Result documented in this encounter Visit Diagnoses Not on filedocumented in this encounter
--- OUTSIDE RECORDS SUMMARY | 2025-05-02 14:59 | XMS_ITS | Clinical Summary ---
Author Organization [facility] Address [address] [place] [address] Care Team Providers Care Flatwork Supervisor Name Role Phone Unavailable Primary Care [...] antepartum, gestational diabetes method of control unspecified ([facility]),Elevat ed glucose tolerance test 1 kit in the morning and 1 kit at noon and 1 kit in the evening and 1 kit before bedtime. 1 kit 04/29/20 Active Problems Problem Noted Date Diagnosed Date Insulin controlled gestation al diabetes mellitus (GDM) in third trimester ([facility]) 04/21/2025 Multigravida of advanced mat ernal age in third trimester ([facility]) 04/21/2025 Hypertension 04/21/2025 Third trimester ([facility]) 04/21/2025 Elevated blood pressure affe cting , antepartum ([facility]) 01/16/2025 headache, antepartum ([facility]) 025 Vaginal bleeding affecting early ([facility]) 11/06/2024 Estimated Date of Delivery Comme nts Yes 06/12/2025 Based on Ultraso und Encounters Date Type Department Care Team Description 04/30/2025 2:00 PM EDT Routine [facility] [address] [place] [address] Lindsey Guajardo PA 33 weeks gestation of ([facility]); Third trimester ([facility]); High blood pressure affecting in third trimester, antepartum ([facility]); induced hypertension, antepartum ([facility]) 04/30/2025 Telephone [facility] [place] [address] [place] [address] Juanis Esparza MA 04/30/2025 Clinisync Result Encounter NOMS External Department Unsolicited Neha Borrego, 04/30/2025 Clinisync Result Encounter [facility]OM[facility] External Department Unsolicited Neha Borrego, DO 04/23/2025 Clinisync Result Encounter [facility] External Department Unsolicited Neha Borrego, DO 04/22/2025 Abstract [facility] [place] [address] [place] [address] Neha Borrego, DO 04/21/2025 3:20 PM EDT Routine [facility] [place] [address] [place] [address] Neha Borrego, Third trimester ([facility]); 32 weeks gestation of ([facility]); Insulin controlled gestational diabetes mellitus (GDM) in third trimester ([facility]); Multigravida of advanced maternal age in third trimester ([facility]); Hypertension, unspecified type 04/21/2025 Bamboo flowsheet [facility] OB [address] [place] [address] Neha Borrego, 04/14/2025 9:00 AM EDT Routine [facility] B[facility] OB [address] [place] [address] Neha Borrego, Third trimester ([facility]); 31 weeks gestation of ([facility]) 04/14/2025 Bamboo flowsheet [facility] OB [address] [place] [address] Neha Borrego, 04/09/2025 Telephone [facility] OB [address] [place] [address] Mima Owusu LPN 04/08/2025 11:10 AM EDT Routine [facility] BCP OB [address] [place] [address] Neha Borrego, Third trimester ([facility]); 30 weeks gestation of ([facility]); Gestational diabetes mellitus (GDM), antepartum, gestational diabetes method of control unspecified ([facility]) 04/08/2025 Bamboo flowsheet [facility] OB [address] [place] [address] Neha Borrego, 04/01/2025 Abstract [facility] OB [address] [place] [address] Juanis Esparza MA 03/24/2025 11:10 AM EDT Routine [facility] B[facility] OB [address] [place] [address] Neha Borrego, Gestational diabetes mellitus (GDM), antepartum, gestational diabetes method of control unspecified ([facility]); Multigravida of advanced maternal age in third trimester ([facility]); Third trimester ([facility]); 28 weeks gestation of ([facility]) 03/24/2025 Bamboo flowsheet [facility] OB [address] [place] [address] Neha Borrego, 03/21/2025 Refill [facility] BCP OB [address] [place] [address] Neha Borrego, headache, antepartum ([facility]) 03/04/2025 Abstract [facility] OB [address] [place] [address] Juanis Esparza MA 02/24/2025 10:20 AM EDT Routine [facility] BCP OB [address] [place] [address] Neha Borrego, Second trimester ([facility]); 24 weeks gestation of ([facility]) 02/24/2025 Bamboo flowsheet [facility] BCP OB [address] [place] [address] Neha Borrego, 02/18/2025 Telephone [facility] OB [address] [place] [address] Larisa Chowdary MA 02/05/2025 Abstract [facility] BCP OB [address] [place] [address] Neha Borrego, 02/04/2025 Abstract [facility] BCP OB [address] [place] [address] Neha Borrego, 02/04/2025 Abstract [facility] BCP OB [address] [place] [address] Neha Borrego, 02/04/2025 Telephone [facility] BCP OB [facility] [place] [address] Neha Borrego DO 02/03/2025 Abstract [facility] [place] [address] [place] [address] Neha Borrego DO 02/03/20[address] Telephone [facility] [address] [place] [address] Neha Borrego, from Last 3 Months Family History Medical [...] Description 05/05/2025 9:10 AM EDT Routine [facility] [place] [address] [place] [address] Neha Borrego DO [address] [place] [address] [place] [address] 05/12/2025 9:10 AM EDT Routine [facility] [place] [address] [place] [address] Neha Borrego, DO [address] [place] [address] 05/19/2025 9:40 AM EDT Routine [facility] BCP OB [address] [place] [address] Neha Borrego, DO [address] [place] [address] Health Maintenance Due Date Last Done Comments Influenza Vaccine (#1) 2025 Cervical Cancer Screening 09/16/2029 HPV/Cotest 09/16/2029 08/05/2020 Pap Smear 09/16/2029 09/16/2024 Procedures Procedure Name Priority Date/Time Associated Diagnosis Comments TBH URINE T PROTEIN CREAT RATIO Routine 04/30/2025 4:30 PM EDT ALL URIC ACID Routine 04/30/2025 3:08 PM EDT ALL LDH Routine 04/30/2025 3:08 PM EDT CCF CMP (CMP) (FOR REMOTE [facility] USE) Routine 04/30/2025 3:08 PM EDT ALL CBC WITH AUTO DIFF Routine 04/30/2025 3:08 PM EDT POCT URINALYSIS DIPSTICK Routine 04/30/2025 2:19 PM EDT 33 weeks gestation of ([facility]) Third trimester ([facility]) US OB BPP W NON-STRESS 04/30/2025 7:10 AM EDT US OB GROWTH 04/30/2025 7:10 AM EDT US OB BPP W NON-STRESS 04/23/2025 8:03 AM EDT POCT URINALYSIS DIPSTICK Routine 04/21/2025 3:40 PM EDT Third trimester ([facility]) POCT URINALYSIS DIPSTICK Routine 04/14/2025 9:09 AM EDT Third trimester ([facility]) 31 weeks gestation of ([facility]) POCT URINALYSIS DIPSTICK Routine 04/08/2025 11:35 AM EDT Third trimester ([facility]) POCT URINALYSIS DIPSTICK Routine 03/24/2025 11:50 AM EDT Gestational diabetes mellitus (GDM), antepartum, gestational diabetes method of control unspecified ([facility]) POCT URINALYSIS DIPSTICK Routine 02/24/2025 10:57 AM EDT Second trimester ([facility]) 24 weeks gestation of ([facility]) PAP SMEAR Routine 09/16/2024 12:00 AM EST THINPREP TIS PAP REFLEX HPV MRNA E6/E7 (60184) Routine 08/05/2020 from Last 3 Months or Most Recently Relevant to Health Maintenance Results * (ABNORMAL) TBH URINE T PROTEIN CREAT RATIO (04/30/2025 4:30 PM EDT) TOTAL PROTEIN URINE RANDOM 17.5(H) <=11.9 mg/dL TBH CREATININE URINE RANDOM 62.30 20.00 - 300.00 mg/dL TBH PROTEIN CREATININE RATIO URINE 0.28 TBH 04/30/2025 4:30 PM EDT 04/30/2025 4:51 PM EDT Narrative CLINISYNC - 04/30/2025 5:00 PM EDT us Neha Borrego DO [facility] Final Result [facility] * (ABNORMAL) CCF CMP (CMP) (FOR REMOTE [facility] USE) (04/30/2025 3:08 PM EDT) SODIUM 143 136 - 145 mmol/L TBH POTASSIUM 3.4(L) 3.5 - 5.1 mmol/L TBH CHLORIDE 106 98 - 107 mmol/L TBH CARBON DIOXIDE 22.6 21.0 - 32.0 mmol/L TBH ANION GAP 17.8 TBH GLUCOSE 108(H) 74 - 106 mg/dL TBH BLOOD UREA NITROGEN 9.0 7.0 - 18.0 mg/dL TBH CREATININE 0.60 0.55 - 1.02 mg/dL TBH TBH EGFR-AF [place] >60 >=60 mL/min/1. 73m 2 TBH TBH EGFR-NON AF [place] >60 >=60 mL/min/1. 73m 2 TBH BUN CREATININE RATIO 15.0 TBH CALCIUM 9.3 8.5 - 10.1 mg/dL TBH BILIRUBIN TOTAL 0.5 0.2 - 1.0 mg/dL TBH ASPARTATE AMINO TRANSFERASE 19 15 - 37 U/L TBH ALANINE AMINOTRANSFERASE 20 14 - 59 U/L TBH ALKALINE PHOSPHATASE 136(H) 46 - 116 U/L TBH TOTAL PROTEIN 6.7 6.4 - 8.2 g/dL TBH ALBUMIN LEVEL 2.5(L) 3.4 - 5.0 g/dL TBH GLOBULIN 4.2 g/dL TBH ALBUMIN GLOBULIN RATIO 0.6 TBH 04/30/2025 3:08 PM EDT 04/30/2025 3:12 PM EDT Narrative CLINISYNC - 04/30/2025 3:43 PM EDT Neha Elmo DO CLINISYNC Final Result CLINISYNC TB * ALL URIC ACID (04/30/2025 3:08 PM EDT) URIC ACID 5.7 2.6 - 6.0 mg/dL TBH 04/30/2025 3:08 PM EDT 04/30/2025 3:12 PM EDT Narrative CLINISYNC - 04/30/2025 3:45 PM EDT Neha Elmo DO CLINISYNC Final Result CLINISYNC TB * ALL LDH (04/30/2025 3:08 PM EDT) LACTATE DEHYDROGENASE 147 81 - 234 U/L TB 04/30/2025 3:08 PM EDT 04/30/2025 3:12 PM EDT Narrative CLINISYNC - 04/30/2025 3:44 PM EDT Neha Elmo DO CLINISYNC Final Result [facility]NC [facility] * (ABNORMAL) ALL CBC WITH AUTO DIFF (04/30/2025 3:08 PM EDT) Pathologist [facility] TB WBC 11.6(H) 4.0 - 11.0 10 3/uL TBH TB RBC 4.37 4.20 - 5.40 10 6/uL TBH TBH HGB 12.5 12.0 - 16.0 g/dL TB TB HCT 37.8 36.0 - 48.0 % TBH TB MCV 86.5 81.0 - 99.0 fL TB TB MCH 28.6 26.7 - 34.0 pg TBH TB MCHC 33.1 29.9 - 35.2 g/dL TB TB RDW 14.1 11.0 - 15.0 % TBH TBH PLT 231 150 - 450 10 3/uL TBH TB MPV 12.5 9.5 - 13.5 fL TBH NEUTROPHILS PERCENT AUTO 73.5 43.0 - 75.0 % TBH LYMPHOCYTES PERCENT AUTO 17.6(L) 20.5 - 60.0 % TBH MONOCYTES PERCENT AUTO 7.1 1.7 - 12.0 % TBH TBH EO % 0.6(L) 0.9 - 7.0 % TBH BASOPHILS PERCENT AUTO 0.3 0.2 - 2.0 % TBH IMMATURE GRANULOCYTES PCT AUTO 0.9(H) 0.0 - 0.5 % TBH NEUTROPHILS ABSOLUTE AUTO 8.5(H) 1.4 - 6.5 10 3/uL TBH LYMPHOCYTES ABSOLUTE AUTO 2.1 1.2 - 3.8 10 3/uL TBH MONOCYTES ABSOLUTE AUTO 0.8 0.3 - 0.8 10 3/uL TBH TBH EO # 0.1 0.0 - 0.7 10 3/uL TBH BASOPHILS ABSOLUTE AUTO 0.0 0.0 - 0.1 10 3/uL TBH IMMATURE GRANULOCYTES ABS AUTO 0.10(H) 0.00 - 0.03 10 3/uL TBH 04/30/2025 3:08 PM EDT 04/30/2025 3:12 PM EDT Narrative CLINISYNC - 04/30/2025 3:17 PM EDT Neha Borrego DO CLINISYNC Final Result [facility] * (ABNORMAL) POCT urinalysis dipstick manually resulted [...] AM EDT Narrative 04/30/2025 7:13 [place] [address] Ultrasound Report Signed Patient: LE WEEMS MR#: [id number] : 1990 Acct:[id number] Age/Sex: 34 / F ADM Date: 04/29/25 Loc: US Attending Dr: Neha Borrego D.O. Ordering Physician: Neha Borrego D.O. Date of Service: 04/29/25 Procedure(s): US OB growth Accession Number(s): [id number] cc: Neha Borrego D.O.; Physician,Non-Staff D[facility] [place] [id number] Patient Name: LE WEEMS MRN: [id number] date: 1990 Sex: F Assigned Patient Location: US Current Patient Location: Accession/Order Number: [id number] Exam Date: 04/30/2025 07:02 Report Date: 04/30/2025 [...] Olivares M.D. 04/30/2025 7:10 AM Dictation Location: [place] [address] Electronically authenticated by: [id number] Y Date: 04/30/2025 07:10 Dictated By: Mariam Olivares M.D. Signed By: 04/30/2513 DD/ TD/TT: Bending Roll Hand: Procedure Note Radiology, Radiologist, MD - 04/30/2025 [place] [address] Ultrasound Report Signed Patient: LE WEEMSMR#: [id number] : 1990Acct:[id number] Age/Sex: 34 / FADM Date: 04/29/25 Loc: US Attending Dr: Neha Borrego D.O. Ordering Physician: Neha Borrego D.O. Date of Service: 04/29/25 Procedure(s): US OB growth Accession Number(s): [id number] cc: Neha Borrego D.O.; Physician,Non-Staff Dileep The [address] [address] Patient Name: LE WEEMS MRN: [id number] date: 1990 Sex: F Assigned Patient Location: US Current Patient Location: Accession/Order Number: [id number] Exam Date: 04/30/2025 07:02 Report Date: 04/30/2025 [...] Olivares M.D. 04/30/2025 7:10 AM Dictation Location: [place] [address] Electronically authenticated by: [id number] Y Date: 507:10 Dictated By: Mariam Olivares M.D. Signed By:04/30/25 0713 DD/ 0710 TD/TT: Bending Roll Hand: us Neha Borrego DO CLINISYNC IMAGING Final Result * US OB BPP W NON-STRESS (04/30/2025 7:10 AM EDT) Only the most recent of2 resultswithin the time period is included. Anatomical Region Laterality Modality Other 04/30/2025 7:10 AM EDT Narrative 04/30/2025 7:13 [place] [address] Ultrasound Report Signed Patient: LE WEEMS MR#: [id number] : 1990 Acct:[id number] Age/Sex: 34 / F ADM Date: 04/29/25 Loc: US Attending Dr: Neha Borrego D.O. Ordering Physician: Neha Borrego D.O. Date of Service: 04/29/25 Procedure(s): US OB BPP w non-stress Accession Number(s): [id number] cc: Neha Borrego D.O.; Physician,Non-Staff MHermelindo [address] [address] Patient Name: LE WEEMS MRN: [id number] date: 1990 Sex: F Assigned Patient Location: [facility] Current Patient Location: Accession/Order Number: [id number] Exam Date: 04/30/2025 07:02 Report Date: 04/30/2025 [...] Olivares M.D. 04/30/2025 7:10 AM Dictation Location: [place] [address] Electronically authenticated by: [id number] Y Date: 04/30/2025 07:10 Dictated By: Mariam Olivares M.D. Signed By: 04/30/25 0713 DD/ 0710 TD/TT: Bending Roll Hand: Procedure Note Radiology, Radiologist, MD - 04/30/2025 [place] [address] Ultrasound Report Signed Patient: LE WEEMSMR#: [id number] : 1990Acct:[id number] Age/Sex: 34 / FADM Date: 04/29/25 Loc: US Attending Dr: Neha Borrego D.O. Ordering Physician: Neha Borrego D.O. Date of Service: 04/29/25 Procedure(s): US OB BPP w non-stress Accession Number(s): [id number] cc: Neha Borrego D.O.; Physician,Non-Staff Dileep The [place] [id number] Patient Name: LE WEEMS MRN: [id number] date: 1990 Sex: F Assigned Patient Location: [facility] Current Patient Location: Accession/Order Number: [id number] Exam Date: 04/30/2025 07:02 Report Date: 04/30/2025 [...] Olivares M.D. 04/30/2025 7:10 AM Dictation Location: [place] [address] Electronically authenticated by: [id number] Y Date: 7:10 Dictated By: Mariam Olivares M.D. Signed By:04/30/25 0713 DD/ 9 TD/TT: Bending Roll Hand: us Neha Elmo DO CLINISYNC IMAGING Final Result * Pap Smear (09/16/2024 12:00 AM EST) Swab Cervical swab / Unknown us Neha Elmo DO LAB CYTOLOGY ORDERABLES Final Re sult EXTERNAL LAB * THINPREP TIS PAP REFLEX HPV MRNA E6/E7 (12707) (08/05/2020) CLINICAL INFORMATION: None given [facility] LE[facility]Y [...] SEE COMMENT [facility] EXTERNAL LAB Comment: ML, CT(ASCP) CT screening location: [employer] [facility], [address] [place] [address], [place] [address]. COMMENT SEE COMMENT [facility] LEG ACY EXTERNAL [...] Most Recently Relevant to Health Maintenance Insurance [facility]
--- OUTSIDE RECORDS SUMMARY | 2025-05-02 14:59 | XMS_ITS | Encounter Summary ---
Author Organization [facility] Jarvam [facility] Address [facility][id number] [address] [place] [address] Care Team Providers Care Operating Room Technician Name Role Phone Unavailable Primary Care Provider Unavailabl e Encounter Details Date Type Department Care Team (Late st Contact Info) Description 12/06/2024 Orders Only Maternal- Medicine at [facility] [address] [place] [address] Ref Prov, [place] [address] Social History Tobacco Use Types Packs/Day Years [...]
--- OUTSIDE RECORDS SUMMARY | 2025-05-02 14:59 | XMS_ITS | Encounter Summary ---
Author Organization [facility] Address [address] [place] [address] Care Team Providers Care Shank Sorter Name Role Phone Unavailable Primary Care Provider Unavailabl e Encounter Details Date Type Department Care Team (Late st Contact Info) Description 01/17/2025 Abstract [facility] BCP OB [address] [place] [address] Mik Borrego DO [facility] [place], [facility]11 Social History Tobacco Use Types Packs/Day [...] Routine [facility] BCP OB [address] [place] [address] Mik Borrego, DO [address] [place], [place] [id number] 05/12/2025 9:10 AM EDT Routine [facility] BCP OB [address] [place] [address] Mik Borrego, DO [facility] [place], [facility]11 05/19/2025 9:40 AM EDT Routine [facility] BCP OB [address] [facility] [place] [address] Mik Borrego, [address] [place] [address] documented as of this encounter Visit Diagnoses Not on filedocumented in this encounter
--- OUTSIDE RECORDS SUMMARY | 2025-05-02 14:59 | XMS_ITS | Encounter Summary ---
Author Organization [facility] Address [address] [place] [address] Care Team Providers Care Vice President Education Name Role Phone Unavailable Primary Care Provider Unavailabl e Encounter Details Date Type Department Care Team (Late st Contact Info) Description 04/30/2025 Clinisync Result Encounter [facility] External Department Unsolicited Neha Borrego, DO [address] [place], [facility]11 Social History [...] [facility] BCP OB [address] [place] [address] Neha Borrego, DO [address] [place], [facility]11 05/12/2025 9:10 AM EDT Routine [facility] BCP OB [address] [place] [address] Neha Borrego, DO [address] [place], [facility] 05/19/2025 9:40 AM EDT Routine [facility] BCP OB [address] [place] [address] Neha Borrego, DO [address] [place] [address] [place] [address] documented as of this encounter Procedures Procedure Name Priority Date/Time Associated Diagnosis Comments TBH URINE T PROTEIN CREAT RATIO Routine 04/30/2025 4:30 PM EDT [facility] CMP (CMP) ([facility]) Routine 04/30/2025 3:08 PM EDT ALL URIC ACID Routine 04/30/2025 3:08 PM EDT ALL LDH Routine 04/30/2025 3:08 PM EDT ALL CBC WITH AUTO DIFF Routine 04/30/2025 3:08 PM EDT US OB BPP W NON-STRESS 04/30/2025 7:10 AM EDT documented in this encounter Results * (ABNORMAL) TBH URINE T PROTEIN CREAT RATIO (04/30/2025 4:30 PM EDT) TOTAL PROTEIN URINE RANDOM 17.5(H) <=11.9 mg/dL TBH CREATININE URINE RANDOM 62.30 20.00 - 300.00 mg/dL TBH PROTEIN CREATININE RATIO URINE 0.28 TBH 04/30/2025 4:30 PM EDT 04/30/2025 4:51 PM EDT Narrative CLINISYNC - 04/30/2025 5:00 PM EDT us Neha Borrego DO CLINISYNC Final Result [facility] * ALL URIC ACID (04/30/2025 3:08 PM EDT) URIC ACID 5.7 2.6 - 6.0 mg/dL TB 04/30/2025 3:08 PM EDT 04/30/2025 3:12 PM EDT Narrative CLINISYNC - 04/30/2025 3:45 PM EDT Neha Elmo DO CLINISYNC Final Result CLINISYNC TB * ALL LDH (04/30/2025 3:08 PM EDT) LACTATE DEHYDROGENASE 147 81 - 234 U/L TB 04/30/2025 3:08 PM EDT 04/30/2025 3:12 PM EDT Narrative CLINISYNC - 04/30/2025 3:44 PM EDT Neha Elmo DO CLINISYNC Final Result Performing Organization Address City/[facility]/ZIP Co de Phone Number CLINISYNC TB * (ABNORMAL) [facility]CF CMP (CMP) (FOR [facility] USE) (04/30/2025 3:08 PM EDT) SODIUM 143 136 - 145 mmol/L TBH POTASSIUM 3.4(L) 3.5 - 5.1 mmol/L TBH CHLORIDE 106 98 - 107 mmol/L TBH CARBON DIOXIDE 22.6 21.0 - 32.0 mmol/L TBH ANION GAP 17.8 TBH GLUCOSE 108(H) 74 - 106 mg/dL TB BLOOD UREA NITROGEN 9.0 7.0 - 18.0 mg/dL TBH CREATININE 0.60 0.55 - 1.02 mg/dL TBH TBH EGFR-AF [place] >60 >=60 mL/min/1. 73m 2 TBH TBH EGFR-NON AF [place] >60 >=60 mL/min/1. 73m 2 TB BUN CREATININE RATIO 15.0 TBH CALCIUM 9.3 [...] Narrative CLINISYNC - 04/30/2025 3:43 PM EDT us Neha Elmo DO CLINIS[facility]NC Final Result [facility] * (ABNORMAL) ALL CBC WITH AUTO DIFF (04/30/2025 3:08 PM EDT) TB WBC 11.6(H) 4.0 - 11.0 10 3/uL TBH TBH RBC 4.37 4.20 - 5.40 10 6/uL TBH TBH HGB 12.5 12.0 - 16.0 g/dL TBH TBH HCT 37.8 36.0 - 48.0 % TBH TBH MCV 86.5 81.0 - 99.0 fL TBH TBH MCH 28.6 26.7 - 34.0 pg TBH TBH MCHC 33.1 29.9 - 35.2 g/dL TBH TBH RDW 14.1 11.0 - 15.0 % TBH TBH PLT 231 150 - 450 10 3/uL TBH TBH MPV 12.5 9.5 - 13.5 fL TBH [...] EDT Neha Borrego DO CLINISYNC Final Result Performing Organization Address City/State/[facility] Co de Phone Number [facility] * US OB BPP W NON-STRESS (04/30/2025 7:10 AM EDT) Anatomical Region Laterality Modality Other 04/30/2025 7:10 AM EDT Narrative 04/30/2025 7:13 AM EDT [address] [address] Ultrasound Report Signed Patient: LE WEEMS MR#: [id number] : 1990 Acct:[id number] Age/Sex: 34 / F ADM Date: 04/29/25 Loc: US Attending Dr: Neha Borrego D.O. Ordering Physician: Neha Borrego D.O. Date of Service: 04/29/25 Procedure(s): US OB BPP w non-stress Accession Number(s): [id number] cc: Neha Borrego D.O.; Physician,Non-Staff MHermelindo The [address] [address] Patient Name: LE WEEMS MRN: [id number] date: 1990 Sex: F Assigned Patient Location: [facility] Current Patient Location: Accession/Order Number: [id number] Exam Date: 04/30/2025 07:02 Report Date: 04/30/2025 [...] Olivares M.D. 04/30/2025 7:10 AM Dictation Location: [place] [address] Electronically authenticated by: [id number] Y Date: 04/30/2025 07:10 Dictated By: Mariam Olivares M.D. Signed By: 04/30/25 0713 DD/ 07 TD/TT: Cook Dessert: Procedure Note Radiology, Radiologist, - 04/30/2025 [place] [address] Ultrasound Report Signed Patient: LE WEEMSMR#: [id number] : 1990Acct:[id number] Age/Sex: 34 / FADM Date: 04/29/25 Loc: US Attending Dr: Neha Borrego D.O. Ordering Physician: Neha Borrego D.O. Date of Service: 04/29/25 Procedure(s): US OB BPP w non-stress Accession Number(s): [id number] cc: Neha Borrego D.O.; Physician,Non-Staff [facility] The [address] [address] Patient Name: LE WEEMS MRN: [facility]:[id number] date: 1990 Sex: F Assigned Patient Location: [facility] Current Patient Location: Accession/Order Number: [id number] Exam Date: 04/30/2025 07:02 Report Date: 04/30/2025 [...] Olivares M.D. 04/30/2025 7:10 AM Dictation Location: [place] [address] Electronically authenticated by: [id number] Y Date: 7:10 Dictated By: Mariam Olivares M.D. Signed By:04/30/25 0713 DD/ 0710 TD/TT: Cook Dessert: us Neha Jaino DO [facility] Final Result documented in this encounter Visit Diagnoses Not on filedocumented in this encounter
--- OUTSIDE RECORDS SUMMARY | 2025-05-02 14:59 | XMS_ITS | Encounter Summary ---
Author Organization [facility] Address [address] [place] [address] Care Team Providers Care Applied Biology Professor Name Role Phone Unavailable Primary Care Provider Unavailabl e Encounter Details Date Type Department Care Team (Late st Contact Info) Description 09/16/2024 Abstract [facility] OB [address] [place] [phone] Mik Borrego DO [facility] [place], [id number] Social History Tobacco Use Types Packs/Day [...] 9:10 AM EDT Routine [facility] OB [facility] [place] [phone] Mik Borrego DO [facility] [place], [place] [id number] 05/12/2025 9:10 AM EDT [place] [phone] Mik Borrego [facility] [place], [place] [id number] 05/19/2025 9:40 AM EDT Routine [facility] OB [address] [facility] [place] [address] Mik Borrego DO [address] [place] [address] [place] [address] documented as of this encounter Visit Diagnoses Not on filedocumented in this encounter
--- OUTSIDE RECORDS SUMMARY | 2025-05-02 14:59 | XMS_ITS | Encounter Summary ---
Author Organization [facility] Address [address] [place] [address] Care Team Providers Care Tilt Tray Driver Name Role Phone Unavailable Primary Care Provider Unavailabl e Encounter Details Date Type Department Care Team (Late st Contact Info) Description 01/21/2025 Abstract [facility] OB [address] [place] [address] Mik Borrego DO [facility] [place], [id number] Social History Tobacco Use Types Packs/Day Years [...] Mik Borrego, DO [address] [place], [place] [id number] 05/12/2025 9:10 AM EDT Routine [facility] OB [address] [place] [address] Mik Borrego, DO [facility] [place], [id number] 05/19/2025 9:40 AM EDT Routine [facility] OB [address] [facility] [place] [address] Mik Borrego, [address] [place] [address] documented as of this encounter Visit Diagnoses Not on filedocumented in this encounter
--- OUTSIDE RECORDS SUMMARY | 2025-05-02 14:59 | XMS_ITS | Encounter Summary ---
Author Organization [facility] Address [address] [place] [address] Care Team Providers Care Computer Publisher Name Role Phone Unavailable Primary Care Provider Unavailabl e Encounter Details Date Type Department Care Team (Late st Contact Info) Description 11/11/2024 Abstract [facility] OB [address] [place] [address] Mik Borrego DO [facility] [place], [id number] Social History Tobacco Use Types Packs/Day Years [...] Routine [facility] OB [address] [place] [address] Mik Borrego, DO [address] [place], [place] [id number] 05/12/2025 9:10 AM EDT Routine [facility] OB [address] [place] [address] Mik Borrego, DO [facility] [place], [id number] 05/19/2025 9:40 AM EDT Routine [facility] OB [address] [facility] [place] [address] Mik Borrego, [address] [place] [address] documented as of this encounter Visit Diagnoses Not on filedocumented in this encounter
--- OUTSIDE RECORDS SUMMARY | 2025-05-02 14:59 | XMS_ITS | Encounter Summary ---
Author Organization [facility] Address [address] [place] [address] Care Team Providers Care Cilnical Scientist Name Role Phone Unavailable Primary Care Provider Unavailabl e Encounter Details Date Type Department Care Team (Late st Contact Info) Description 04/22/2025 Abstract [facility] OB [address] [place] [address] Mik Borrego DO [facility] [place], [id number] Social History Tobacco Use Types Packs/Day Years [...] Mik Borrego, DO [address] [place], [place] [id number] 05/12/2025 9:10 AM EDT Routine [facility] OB [address] [place] [address] Mik Borrego DO [facility] [place], [id number] 05/19/2025 9:40 AM EDT Routine [facility] OB [address] [facility] [place] [address] Mik Borrego, [address] [place] [address] documented as of this encounter Visit Diagnoses Not on filedocumented in this encounter
--- OUTSIDE RECORDS SUMMARY | 2025-05-02 14:59 | XMS_ITS | Encounter Summary ---
Author Organization [facility] Address [address] [place] [address] Care Team Providers Care Ice Crusher Name Role Phone Unavailable Primary Care Provider Unavailabl e Encounter Details Date Type Department Care Team (Late st Contact Info) Description 04/01/2025 Abstract [facility] OB [address] [facility] [place] [address] Juanis Esparza [place] Social History Tobacco [...] Routine [facility] OB [address] [place] [address] Mik Borrego [address] [place] [address] 05/12/2025 9:10 AM EDT [place] [address] Mik Borrego DO [address] [place] [address] [place] [address] 05/19/2025 9:40 AM EDT Routine [facility] OB [address] [place] [phone] Mik Borrego, DO [address] [facility] [address] [place] [place], [place] [id number] documented as of this encounter Visit Diagnoses Not on filedocumented in this encounter
--- OUTSIDE RECORDS SUMMARY | 2025-05-02 14:59 | XMS_ITS | Encounter Summary ---
Author Organization [facility] Address [address] [place] [address] Care Team Providers Care Revenue Cycle Specialist Name Role Phone Unavailable Primary Care Provider Unavailabl e Encounter Details Date Type Department Care Team (Late st Contact Info) Description 04/30/2025 Telephone [facility] OB [address] [facility] [place] [phone] Juanis Esparza MA Social History Tobacco Use [...] AM EDT Routine [facility] OB [address] [facility] [place] [phone] Mik Borrego, DO [address] [place] [address] 05/12/2025 9:10 AM EDT Routine [facility] OB [address] [place] [address] Mik Borrego, DO [address] [facility] [place] [address] 05/19/2025 9:40 AM EDT Routine [facility] OB [address] [place] [address] Mik Borrego, DO [address] [place], [place] [address] [place] [address] documented as of this encounter Visit Diagnoses Not on filedocumented in this encounter
[2025-05-02 15:07] VITALS: BP 143/90; PULSE 95
[2025-05-02 15:25] VITALS: BP 134/87; PULSE 83
== END 2025-05-02 15:23 | disposition home or self-care (01) ==
LOC: FBCO 14:57 → FBC 15:03
PROVIDERS: Visit Provider Obstetrics & Gynecology
DX: O16.3 Unspecified maternal hypertension, third trimester (principal); Z3A.34 34 weeks gestation of pregnancy
CPT/HCPCS: 59025

== ENCOUNTER 2025-05-06 07:57 | Outpatient (OUT) | payer BC, SELFPAY ==
--- OUTSIDE RECORDS SUMMARY | 2013-09-18 06:00 | XMS_ITS | Continuity of Care Document ---
Author Organization [facility] Address [address] [place] [address], [address] [place] [address] Phone Care Team Providers Care Newspaper Editor Managing Name Role Phone Eva Arias MD Unavailable [...] Active Procedures Procedure Date Office Visit - SUPERINTENDENT CEMETERY Extended Advance Directives Directive Yes / No Effective Date File Name No Information Encounters Encounter Description Practice Location Reason(s) For Visit Diagnoses Date Provider Providers Copied on Encounter Office Visit - SUPERINTENDENT CEMETERY Extended [facility], [address] [place] [address], [address], [place], [place], [id number], tel:[phone] [facility] chemistry intern consult (chief complaint) Family planningAcne 3 Hugo Velasquez. [address] [place] [address], [address], [place], [id number]. tel:[phone] Referring Provider: Eva Arias MD, [address] [place] [address] [address], [place], [address]. tel:[phone] Family History Family Member Type Diagnosis Age At Onset No Information Payers Payer name Insurance type Covered alliance party ID Authoriza tidon(s) Prime / Durga CI [id number] Social History Type Description Quantity Date Captured [...] For Visit From encounter dated '09/18/2013 10:00'. chemistry intern consult (chief complaint). Description: The symptoms are [...] Date Complaint History Of Prese nt Illness chemistry intern consult The symptoms are reported as being [...] Mental Status Date Cognitive Assessment Orientation - [place] ed to time, place, person, situation. Patient Care Teams Name Effective Dates (start - stop) Status Members No Information
--- OUTSIDE RECORDS SUMMARY | 2024-05-20 04:15 | XMS_ITS ---
Author Organization [facility] Address [address] [facility] [place] [address] Care Team Providers Care Museum Tour Guide Name Role Phone Olimpia Renee Primary Care Provider [phone] Steven Shane Unavailable [phone] REASON FOR VISIT MED RECHECK-AC Encounters Encounter Location Date Provider Diagnosis [facility] [address] [place] [address] 2023 Steven Shane Plan Of Treatment No Information Progress Notes * SEDALEDOB:1990 (34 yo F)Acc No.[id number]:05/20/2024 Behavioral Health Patient: LE ALCALA Provider: LARRY Sanders :1990 A ge:33 Y S ex:Female Date:05/20/2024 Address:[address] [place], [place] [id number] Pcp:Olimpia Renee Subjective: * Chief Complaints: * 1 . MED RECHECK-AC. * Medical History: Objective: * Vitals: Assessment: Plan: * Treatment: * Images: * Electronic signature of LARRY Linder on 05/06/2025 at 07:59 AM EDT Sign off status: Pending * Provider: LARRY Sanders Date: 0 05/20/2024 Generated for Printi ng/Faxing/eTransmitting on: 05/06/2025 07:59 AM EDT
--- OUTSIDE RECORDS SUMMARY | 2024-06-04 10:45 | XMS_ITS ---
Author Organization [facility] es Address [address] [place] [address] Care Team Providers Care Clinical Operations Leader Name Role Phone Olimpia Renee Primary Care Provider Diane Perdomo [phone] REASON FOR VISIT DISCUSS ASTHMA FLARE-AC Encounters Encounter Location Date Provider Diagnosis [address] [place] [address] 06/04/2024 Diane Perdomo Plan Of Treatment No Information Progress Notes * LE STACKDOB:1990 (34 yo F)Acc No.[id number]:06/04/2024 Progress Notes Patient: LE ALCALA Appointment Provider: Jose Perdomo NP :1990 A ge:33 Y S ex:Female Date:06/04/2024 Address:[address] [place], [place] [id number] Pcp:Olimpia Renee Subjective: * Chief Complaints: * 1 . DISCUSS ASTHMA FLARE-AC. * Medical History: Objective: * Vitals: Assessment: Plan: * Treatment: * Images: * Electronic signature of Ryan Perdomo CNP on 05/06/2025 at 07:58 AM EDT Sign off status: Pending * Appointment Provider: Jose Perdomo NP Date: 06/04/2024 Generated for Printi ng/Faxing/eTransmitting on: 05/06/2025 07:58 AM EDT
--- OUTSIDE RECORDS SUMMARY | 2025-04-30 14:00 | XMS_ITS | Encounter Summary ---
Author Organization [facility] Address [address] [place] [address] Care Team Providers Care Estate Planning Director Name Role Phone Unavailable Primary Care Provider Unavailabl e Reason for Visit * Reason Comments Routine Visit Blood Pressure Check Encounter Details Date Type Department Care Team (Late st Contact Info) Description 04/30/2025 2:00 PM EDT Routine [facility] OB [address] [facility] [phone] Lindsey Guajardo PA [address] [place] [address] 33 weeks gestation of (HHS-HCC); Third trimester [...] to check FSBS. Blood Glucose Monitoring Suppl (D-[employer] Glucometer) w/Device kit 1 kit, Does not [...] Diagnosis Date Noted Vaginal bleeding affecting early ([facility]) 11/06/2024 headache, antepartum ([facility]) 12/25/2024 Elevated blood pressure affecting , antepartum ([facility]) 01/16/2025 Insulin controlled gestational diabetes mellitus (GDM) in third trimester ([facility]) 04/21/2025 Multigravida of advanced maternal age in third trimester ([facility]) 04/21/2025 Hypertension 04/21/2025 Third trimester ([facility]) 04/21/2025 Resolved Ambulatory Problems Diagnosis Date Noted No Resolved Ambulatory Problems Past Medical History: Diagnosis Date ADHD (attention deficit hyperactivity disorder) Anxiety Gestational diabetes ([facility]) Insulin resistance PCOS (polycystic ovarian syndrome) HISTORY PAST MEDICAL HISTORY SOCIAL HISTORY Past Medical History: Diagnosis Date ADHD (attention deficit hyperactivity disorder) Anxiety Gestational diabetes ([facility]) Hypertension Insulin resistance PCOS (polycystic ovarian [...] PLAN ICD-10-CM 1. 33 weeks gestation of ([facility]) Z3A.33 POCT urinalysis dipstick manually resulted 2. Third trimester ([facility]) Z34.93 POCT urinalysis dipstick manually resulted 3. High blood pressure affecting in third trimester, antepartum ([facility]) O16.3 Patient presents today for headaches, elevated [...] Care Team (Late st Contact Info) Description 05/12/2025 9:10 AM EDT Routine [facility] OB [address] [place] [address] [place] [address] Mik Borrego [address] [place] [address] 05/19/2025 9:40 AM EDT Routine [facility] OB [address] [place] [address] [place] [address] Mik Borrego [facility] [place] [address] Scheduled Orders Name Type Priority Associated Diagnoses Orde r Schedule Creatinine Lab Routine induced hypertension, antepartum ([facility]) Expected: 04/30/2025 (Approximate), Expires: 04/30/2026 Protein, urine, 24 hour Lab Routine induced hypertension, antepartum ([facility]) Expected: 04/30/2025 (Approximate), Expires: 04/30/2026 Pt and ptt Lab Routine induced hypertension, antepartum ([facility]) Expected: 04/30/2025, Expires: 04/30/2026 CBC and differential Lab Routine induced hypertension, antepartum ([facility]) Expected: 04/30/2025 (Approximate), Expires: 04/30/2026 Uric acid Lab Routine induced hypertension, antepartum ([facility]) Expected: 04/30/2025 (Approximate), Expires: 04/30/2026 Lactate dehydrogenase Lab Routine induced hypertension, antepartum ([facility]) Expected: 04/30/2025, Expires: 04/30/2026 ALT Lab Routine induced hypertension, antepartum ([facility]) Expected: 04/30/2025 (Approximate), Expires: 04/30/2026 AST Lab Routine induced hypertension, antepartum ([facility]) Expected: 04/30/2025 (Approximate), Expires: 04/30/2026 BUN Lab Routine induced hypertension, antepartum ([facility]) Expected: 04/30/2025, Expires: 04/30/2026 documented as of this encounter Procedures Procedure Name Priority Date/Time Associated Diagnosis Comments POCT URINALYSIS DIPSTICK Routine 04/30/2025 2:19 PM EDT 33 weeks gestation of ([facility]) Third trimester ([facility]) documented in this encounter Results * [...] - 9 Protein, UA Trace Negative - 1999(20) ++++ mg/dL Urobilinogen, UA 1.0 0.2 - [...]
--- OUTSIDE RECORDS SUMMARY | 2025-05-05 09:10 | XMS_ITS | Encounter Summary ---
Author Organization [facility] Address [address] [place] [address] Care Team Providers Care Pharm Spec Name Role Phone Unavailable Primary Care Provider Unavailabl e Reason for Visit * Reason Comments Routine Visit Encounter Details Date Type Department Care Team ([facility] Contact Info) Description 05/05/2025 9:10 AM EDT Routine [facility] OB [address] [facility] [place] [phone] Mik Borrego, DO [address] [facility] [place] [address] 34 weeks gestation of ([facility]); Third trimester ([facility]); High blood pressure affecting in third trimester, antepartum ([facility]); induced hypertension, antepartum ([facility]); Insulin controlled gestational diabetes mellitus (GDM) in third trimester ([facility]); Multigravida of advanced maternal age in third trimester ([facility]); Gestational diabetes mellitus (GDM), antepartum, gestational diabetes method of control unspecified ([facility]) Social History Tobacco Use Types Packs/Day Years [...] 3:23 PM EDT documented in this encounter Plan of Treatment Upcoming Encounters Date Type Department Care Team (Late st Contact Info) Description 05/12/2025 9:10 AM EDT Routine [facility] [address] [facility] [address] Mik Borrego, DO [address] [place] [address] 05/19/2025 9:40 AM EDT Routine [facility] OB [address] [place] [address] Mik Borrego, DO [address] [place] [address] documented as of this encounter Procedures Procedure Name Priority Date/Time Associated Diagnosis Comments POCT URINALYSIS DIPSTICK Routine 05/05/2025 10:56 AM EDT 34 weeks gestation of ([facility]) Third trimester ([facility]) documented in this encounter Results * (ABNORMAL) POCT urinalysis dipstick manually resulted (05/05/2025 10:56 AM EDT) Color, UA Yellow Clarity, UA Clear Glucose, UA Negative Negative - 1999(110) ++++ mg/dL Bilirubin, UA Negative Negative - 4(70) +++ mg/dL Ketones, UA Positive Negative - 160(16) ++++ mg/dL Comment:15 Spec Grav, UA 1.010 1 - 1.03 Blood, UA Negative Negative - 50 Albin/mcL pH, UA 7.0 5 - 9 Protein, UA Negative Negative - 1999(20) ++++ mg/dL Urobilinogen, UA 0.2 0.2 - 12 mg/dL Leukocytes, UA Negative Negative - 500+++ Jack/mcL Nitrite, UA Negative Negative - Positive Urine 05/05/2025 10:5 6 AM EDT Mik Borrego DO POINT OF CARE TEST ENTER/EDIT OR DERABLES Final Result documented in this encounter Visit Diagnoses Diagnosis 34 weeks gestation of ([facility]) Third trimester ([facility]) state, incidental High blood pressure affecting in third trimester, antepartum ([facility]) induced hypertension, antepartum ([facility]) Transient hypertension of , antepartum Gestational diabetes mellitus (GDM), antepartum, gestational diabetes method of control unspecified ([facility]) Multigravida of advanced maternal age in third trimester ([facility]) documented in this encounter
--- NOTE | 2025-05-06 | US_ITS ---
The [address] [address] Patient Name: LE STACK MRN: [id number] date: 1990 Sex: F Assigned Patient Location: [facility] Current Patient Location: [facility] Accession/Order Number: [id number] Exam Date: 05/06/2025 09:07 Report Date: 05/06/2025 09:29 At the request of: NEHA CAMPBELL DO Procedure: US OB BPP w non-stress BIOPHYSICAL PROFILE: CLINICAL INFORMATION: Gestational diabetes mellitus O 24.419 COMPARISON: 04/29/2025 There is a single live intrauterine gestation in cephalic presentation. The reported gestational age is 34 weeks 5 days. The heart rate measures 161 beats per minute. FINDINGS: TONE: 1 or more episodes of activity extension and flexion of extremity or opening and closing of the hand [Y] 2/2 GROSS BODY MOVEMENTS: 3 or more discrete body or limb movements [Y] 2/2 BREATHING MOVEMENTS: 1 or more episodes of breathing lasting at least 30 seconds [Y] 0/2 SARA: A single deepest vertical pocket of amniotic fluid greater than 2 cm [Y] 2/2 SARA: 14.3 cm Total score: 6/8 US/US OB BPP w non-stress IMPRESSION: FAILED BIOPHYSICAL PROFILE WITH NO BREATHING OBSERVED Impression dictated by: Mariam Olivares M.D. 05/06/2025 9:29 AM Dictation Location: [place] [address] Electronically authenticated by: [id number] Y Date: 05/06/2025 09:29
--- OUTSIDE RECORDS SUMMARY | 2025-05-06 07:59 | XMS_ITS | Encounter Summary ---
Author Organization [facility] Address [address] [place] [address] Care Team Providers Care Transmission Superintendent Name Role Phone Unavailable Primary Care Provider Unavailabl e Encounter Details Date Type Department Care Team (Late st Contact Info) Description 02/04/2025 Abstract [facility] OB [address] [place] [address] Mik Borrego DO [facility] [place], [facility] Social History Tobacco Use Types Packs/Day [...] [facility] OB [address] [place] [address] Mik Borrego, DO [address] [place], [facility] 05/19/2025 9:40 AM EDT Routine [facility] OB [address] [place] [address] Mik Borrego DO [facility] [place], [facility]11 documented as of this encounter Visit Diagnoses Not on filedocumented in this encounter
--- OUTSIDE RECORDS SUMMARY | 2025-05-06 07:59 | XMS_ITS | Encounter Summary ---
Author Organization [facility] Address [address] [place] [address] Care Team Providers Care Rig Site Engineer Name Role Phone Unavailable Primary Care Provider Unavailabl e Encounter Details Date Type Department Care Team (Late st Contact Info) Description 03/04/2025 Abstract [facility] OB [address] [facility] [address] Juanis Esparza MA Social History Tobacco [...] Routine [facility] OB [address] [place] [address] Mik Borrego DO [address] [place] [address] [place] [address] 05/19/2025 9:40 AM EDT Routine [facility] OB [address] [place] [address] Mik Borrego DO [address] [place] [address] [place] [address] documented as of this encounter Visit Diagnoses Not on filedocumented in this encounter
--- OUTSIDE RECORDS SUMMARY | 2025-05-06 07:59 | XMS_ITS | Encounter Summary ---
Author Organization [facility] Address [address] [place] [address] Care Team Providers Care Brush Head Maker Name Role Phone Unavailable Primary Care Provider Unavailabl e Encounter Details Date Type Department Care Team (Late st Contact Info) Description 02/04/2025 Abstract [facility] OB [address] [place] [address] Mik Borrego DO [facility] [place], [facility]11 Social History [...] Routine [facility] OB [address] [place] [address] Mik Borrego, DO [address] [place], [facility]11 05/19/2025 9:40 AM EDT Routine [facility] OB [address] [place] [address] Mik Borrego DO [facility] [place], [facility]11 documented as of this encounter Visit Diagnoses Not on filedocumented in this encounter
--- OUTSIDE RECORDS SUMMARY | 2025-05-06 07:59 | XMS_ITS | Encounter Summary ---
Author Organization [facility] Address [address] [place] [address] Care Team Providers Care Customer Counter Associate Name Role Phone Unavailable Primary Care Provider Unavailabl e Encounter Details Date Type Department Care Team (Late st Contact Info) Description 04/22/2025 Abstract [facility] OB [address] [place] [address] Mik Borrego DO [facility] [place], [facility]11 Social History Tobacco Use Types Packs/Day [...] Routine [facility] OB [address] [place] [address] Mik Borrego, DO [address] [place], [facility] 05/19/2025 9:40 AM EDT Routine [facility] OB [address] [place] [address] Mik Borrego DO [facility] [place], [facility]11 documented as of this encounter Visit Diagnoses Not on filedocumented in this encounter
--- OUTSIDE RECORDS SUMMARY | 2025-05-06 07:59 | XMS_ITS | Encounter Summary ---
Author Organization [facility] Address [address] [place] [address] Care Team Providers Care Editorial Cartoonist Name Role Phone Unavailable Primary Care Provider Unavailabl e Encounter Details Date Type Department Care Team (Late st Contact Info) Description 10/08/2024 Orders Only [facility] [address] [place] [phone] Larisa Chowdary MA [facility] [place] [address] Social History Tobacco Use Types Packs/Day Years [...] 9:10 AM EDT Routine [facility] [place] [phone] Mik Borrego [facility] [place] [address] 05/19/2025 9:40 AM EDT Routine [facility] [place] [phone] Mik Borrego DO [facility] [place] [address] documented as of this encounter Procedures Procedure Name Priority Date/Time Associated Diagnosis Comments PAP SMEAR Routine 09/16/2024 12:00 AM EST documented in this encounter Results * Pap Smear (09/16/2024 12:00 AM EST) Swab Cervical swab / Unknown us Mik Borergo DO LAB CYTOLOGY ORDERABLES Final Re sult EXTERNAL LAB documented in this encounter Visit Diagnoses Not on filedocumented in this encounter
--- OUTSIDE RECORDS SUMMARY | 2025-05-06 07:59 | XMS_ITS | Encounter Summary ---
Author Organization [facility] Address [address] [place] [address] Care Team Providers Care Medical Laboratory Technician Name Role Phone Unavailable Primary Care Provider Unavailabl e Encounter Details Date Type Department Care Team (Late st Contact Info) Description 09/16/2024 Abstract [facility] OB [address] [place] [phone] Mik Borrego DO [facility] [place], [place] [address] Social History Tobacco Use Types Packs/Day Years [...] 9:10 AM EDT Routine [facility] OB [facility] [place] [phone] Mik Borrego DO [facility] [place], [place] [id number] 05/19/2025 9:40 AM EDT Routine [facility] OB [facility] [place] [phone] Mik Borrego DO [facility] [place], [facility] documented as of this encounter Visit Diagnoses Not on filedocumented in this encounter
--- OUTSIDE RECORDS SUMMARY | 2025-05-06 07:59 | XMS_ITS | Clinical Summary ---
Author Organization [facility] Healthcare Address [address] [place] [address] Care Team Providers Care Cultural Historian Name Role Phone Unavailable Primary Care Provider [...] and 1 kit before bedtime. 1 kit 05/05/20 25 Active Problems Problem Noted Date Diagnosed Date Insulin controlled gestation al diabetes mellitus (GDM) in third trimester ([facility]) 04/21/2025 Multigravida of advanced mat ernal age in third trimester ([facility]) 04/21/2025 Hypertension 04/21/2025 Third trimester ([facility]) 04/21/2025 Elevated blood pressure affe cting , antepartum ([facility]) 01/16/2025 headache, antepartum ([facility]) 025 Vaginal bleeding affecting early ([facility]) 11/06/2024 Estimated Date of Delivery Comme nts Yes 06/12/2025 Based on Ultraso und Encounters Date Type Department Care Team Description 05/05/2025 9:10 AM EDT Routine [facility] [address] [place] [address] Neha Borrego, DO 34 weeks gestation of ([facility]); Third trimester ([facility]); High blood pressure affecting in third trimester, antepartum ([facility]); induced hypertension, antepartum ([facility]); Insulin controlled gestational diabetes mellitus (GDM) in third trimester ([facility]); Multigravida of advanced maternal age in third trimester ([facility]); Gestational diabetes mellitus (GDM), antepartum, gestational diabetes method of control unspecified ([facility]) 05/05/2025 Abstract [facility] [address] [place] [address] Neha Borrego, 05/05/2025 Bamboo flowsheet [facility] [address] [place] [address] Neha Borrego, 04/30/2025 2:00 PM EDT [address]ine [facility] [address] [place] [address] Lindsey Guajardo PA 33 weeks gestation of ([facility]); Third trimester ([facility]); High blood pressure affecting in third trimester, antepartum ([facility]); induced hypertension, antepartum ([facility]) 04/30/2025 Telephone [facility] [address] [place] [address] Juanis Esparza MA 04/30/2025 Clinisync Result Encounter NOMS External Department Unsolicited Neha Borrego, 04/30/2025 Clinisync Result Encounter NOMS External Department Unsolicited ElmoNeha parikh, DO 04/23/2025 Clinisync Result Encounter NOMS External Department Unsolicited Neha Borrego, DO 04/22/2025 Abstract [facility] [address] [place] [address] Neha Borrego, DO 04/21/2025 3:20 PM EDT Routine [facility] OB [address] [place] [address] Neha Borrego, DO Third trimester ([facility]); 32 weeks gestation of ([facility]); Insulin controlled gestational diabetes mellitus (GDM) in third trimester ([facility]); Multigravida of advanced maternal age in third trimester ([facility]); Hypertension, unspecified type 04/21/2025 Bamboo flowsheet [facility] [address] [place] [address] Neha Borrego, 04/14/2025 9:00 AM EDT Routine [facility] OB [address] [place] [address] Neha Borrego, DO Third trimester ([facility]); 31 weeks gestation of ([facility]) 04/14/2025 Bamboo flowsheet [facility] OB [address] [place] [address] Neha Borrego, DO 04/09/2025 Telephone [facility] OB [address] [place] [address] [place] [address] Mima Owusu DIVISION CONTROLLER 04/08/2025 11:10 AM EDT Routine [facility] OB [address] [place] [address] Neha Borrego, Third trimester ([facility]); 30 weeks gestation of ([facility]); Gestational diabetes mellitus (GDM), antepartum, gestational diabetes method of control unspecified ([facility]) 04/08/2025 Bamboo flowsheet [facility] [address] [place] [address] Neha Borrego, 04/01/2025 Abstract [facility] [address] [place] [address] Juanis EsparzaLEBANON, MA 03/24/2025 11:10 AM EDT Routine [facility] [address] [place] [address] Neha Borrego, Gestational diabetes mellitus (GDM), antepartum, gestational diabetes method of control unspecified ([facility]); Multigravida of advanced maternal age in third trimester ([facility]); Third trimester ([facility]); 28 weeks gestation of ([facility]) 03/24/2025 Bamboo flowsheet [facility] [address] [place] [address] Neha Borrego DO 03/21/2025 Refill [facility] [address] [place] [address] Neha Borrego, headache, antepartum ([facility]) 03/04/2025 Abstract [facility] [address] [place] [address] Juanis Esparza MA 02/24/2025 10:20 AM EDT Routine [facility] OB [address] [place] [address] Neha Borrego, Second trimester ([facility]); 24 weeks gestation of ([facility]) 02/24/2025 Bamboo flowsheet [facility] [address] [place] [address] Neha Borrego, 02/18/[address] [facility] [address] [place] [address] Larisa Chowdary MA 02/05/2025 Abstract [facility] [address] [place] [address] Neha Borrego, DO 02/04/2025 Abstract [facility] [address] [place] [address] Neha Borrego, 02/04/2025 Abstract [facility] [address] [place] [address] Neha Borrego, DO 02/04/[address] [facility] [address] [place] [address] Neha Borrego, from Last 3 Months [...] 1.9 oz) 05/05/2025 9:20 AM EDT Height 170.2 cm (5' 7 ) 05/06/2024 3:23 PM EDT Body Mass Index 33.85 05/06/2024 3:23 PM EDT Plan of Treatment Upcoming Encounters Date Type Department Care Team (Late st Contact Info) Description 05/12/2025 9:10 AM EDT Routine [facility] OB [address] [facility] [address] Neha Borrego, DO [address] [place] [address] 05/19/2025 9:40 AM EDT Routine [facility] [address] [facility] [place] [address] Neha Borrego, DO [address] [place] [address] Health Maintenance Due Date Last Done Comments Influenza Vaccine (#1) 2025 Cervical Cancer Screening 09/16/2029 HPV/Cotest 09/16/2029 08/05/2020 Pap Smear 09/16/2029 09/16/2024 Procedures Procedure Name Priority Date/Time Associated Diagnosis Comments POCT URINALYSIS DIPSTICK Routine 05/05/2025 10:56 AM EDT 34 weeks gestation of ([facility]) Third trimester ([facility]) TBH URINE T PROTEIN CREAT RATIO Routine 04/30/2025 4:30 PM EDT ALL URIC ACID Routine 04/30/2025 3:08 PM EDT ALL LDH Routine 04/30/2025 3:08 PM EDT CCF CMP (CMP) (FOR REMOTE [facility] USE) Routine 04/30/2025 3:08 PM EDT ALL CBC WITH AUTO DIFF Routine 04/30/2025 3:08 PM EDT POCT URINALYSIS DIPSTICK Routine 04/30/2025 2:19 PM EDT 33 weeks gestation of ([facility]) Third trimester ([facility]) US OB BPP W NON-STRESS 04/30/2025 7:10 AM EDT US OB GROWTH 04/30/2025 7:10 AM EDT US OB BPP W NON-STRESS 04/23/2025 8:03 AM EDT POCT URINALYSIS DIPSTICK Routine 04/21/2025 3:40 PM EDT Third trimester ([facility]) POCT URINALYSIS DIPSTICK Routine 04/14/2025 9:09 AM EDT Third trimester ([facility]) 31 weeks gestation of ([facility]) POCT URINALYSIS DIPSTICK Routine 04/08/2025 11:35 AM EDT Third trimester ([facility]) POCT URINALYSIS DIPSTICK Routine 03/24/2025 11:50 AM EDT Gestational diabetes mellitus (GDM), antepartum, gestational diabetes method of control unspecified ([facility]) POCT URINALYSIS DIPSTICK Routine 02/24/2025 10:57 AM EDT Second trimester ([facility]) 24 weeks gestation of ([facility]) PAP SMEAR Routine 09/16/2024 12:00 AM EST THINPREP TIS PAP REFLEX HPV MRNA E6/E7 (21933) Routine 08/05/2020 from Last 3 Months or Most Recently Relevant to Health Maintenance Results * (ABNORMAL) POCT urinalysis dipstick manually resulted (05/05/2025 10:56 AM EDT) Only the most recent of7 resultswithin the time period is included. Color, [...] Positive Urine 05/05/2025 10:5 6 AM EDT Neha Borrego DO POINT OF CARE TEST ENTER/EDIT OR DERABLES Final Result * (ABNORMAL) TBH URINE T PROTEIN CREAT RATIO (04/30/2025 4:30 PM EDT) TOTAL PROTEIN URINE RANDOM 17.5(H) <=11.9 mg/dL TBH CREATININE URINE RANDOM 62.30 20.00 - 300.00 mg/dL TBH PROTEIN CREATININE RATIO URINE 0.28 TBH 04/30/2025 4:30 PM EDT 04/30/2025 4:51 PM EDT Narrative CLINISYNC - 04/30/2025 5:00 PM EDT Neha Borrego DO CLINISYNC Final Result CLINISYNC TB * (ABNORMAL) CCF CMP (CMP) (FOR REMOTE [facility] USE) (04/30/2025 3:08 PM EDT) SODIUM 143 136 - 145 mmol/L TBH POTASSIUM 3.4(L) 3.5 - 5.1 mmol/L TBH CHLORIDE 106 98 - 107 mmol/L TBH CARBON DIOXIDE 22.6 21.0 - 32.0 mmol/L TBH ANION GAP 17.8 TBH GLUCOSE 108(H) 74 - 106 mg/dL TBH BLOOD UREA NITROGEN 9.0 7.0 - 18.0 mg/dL TBH CREATININE 0.60 0.55 - 1.02 mg/dL TBH TBH EGFR-AF [place]IZ[place] >60 >=60 mL/min/1. 73m 2 TBH TBH EGFR-NON AF [place] >60 >=60 mL/min/1. 73m 2 TBH BUN [...] Elmo DO CLINISYNC Final Result [facility] * ALL URIC ACID (04/30/2025 3:08 PM EDT) URIC ACID 5.7 2.6 - 6.0 mg/dL TB 04/30/2025 3:0 8 PM EDT 04/30/2025 3:12 PM EDT Narrative CLINISYNC - 04/30/2025 3:45 PM EDT us Neha Elmo DO CLINISYNC Final Result CLINISYKY TB * ALL LDH (04/30/2025 3:08 PM EDT) LACTATE DEHYDROGENASE 147 81 - 234 U/L TBH 04/30/2025 3:08 PM EDT 04/30/2025 3:12 PM EDT Narrative CLINISYNC - 04/30/2025 3:44 PM EDT Neha Borrego DO CLINISYNC Final Result CLINKIM TB * (ABNORMAL) ALL CBC WITH AUTO DIFF [...] 04/30/2025 3:17 PM EDT Neha Borrego DO CLINISYTOMASA Final Result [facility] * US OB GROWTH (04/30/2025 7:10 AM EDT) Anatomical Region Laterality Modality Other 04/30/2025 7:10 AM EDT Narrative 04/30/2025 7:13 [place] [address] Ultrasound Report Signed Patient: LE WEEMS MR#: [id number] : 1990 Acct:[id number] Age/Sex: 34 / F ADM Date: 04/29/25 Loc: US Attending Dr: Neha Borrego D.O. Ordering Physician: Neha Borrego D.O. Date of Service: 04/29/25 Procedure(s): US OB growth Accession Number(s): [id number] cc: Neha Borrego D.O.; Physician,Non-Staff MHermelindo [place] [id number] Patient Name: EL WEEMS MRN: [facility]:[id number] date: 1990 Sex: F Assigned Patient Location: Current Patient Location: Accession/Order Number: [id number] Exam Date: 04/30/2025 07:02 Report Date: 04/30/2025 [...] Olivares M.D. 04/30/2025 7:10 AM Dictation Location: [place] [address] Electronically authenticated by: [id number] Y Date: 04/30/2025 07:10 Dictated By: Mraiam Olivares M.D. Signed By: 04/30/25 0713 DD/ 0710 TD/TT: Customer Business Manager: Procedure Note Radiology, Radiologist, MD - 04/30/2025 The [place] [id number] Ultrasound Report Signed Patient: LE WEEMSMR#: [id number] : 1990Acct:[id number] Age/Sex: 34 / FADM Date: 04/29/25 Loc: US Attending Dr: Neha Borrego D.O. Ordering Physician: Neha Borrego D.O. Date of Service: 04/29/25 Procedure(s): US OB growth Accession Number(s): [id number] cc: Neha Borrego D.O.; Physician,Non-Staff Dileep [address] [address] Patient Name: LE WEEMS MRN: [facility]:[id number] date: 1990 Sex: F Assigned Patient Location: Current Patient Location: Accession/Order Number: [id number] Exam Date: 04/30/2025 07:02 Report Date: 04/30/2025 [...] Olivares M.D. 04/30/2025 7:10 AM Dictation Location: [place] [address] Electronically authenticated by: [id number] Y Date: 7:10 Dictated By: Mariam Olivares M.D. Signed By:04/30/25712 DD/ 9 TD/TT: Customer Business Manager: us Neha Borrego DO CLINISYNC IMAGING Final Result * US OB BPP W NON-STRESS (04/30/2025 7:10 AM EDT) Only the most recent of2 resultswithin the time period is included. Anatomical Region Laterality Modality Other 04/30/2025 7:10 AM EDT Narrative 04/30/2025 7:13 [place] [address] Ultrasound Report Signed Patient: LE WEEMS MR#: [id number] : 1990 Acct:[id number] Age/Sex: 34 / F ADM Date: 04/29/25 Loc: US Attending Dr: Neha Borrego D.O. Ordering Physician: Neha Borrego D.O. Date of Service: 04/29/25 Procedure(s): US OB BPP w non-stress Accession Number(s): [id number] cc: Neha Borrego D.O.; Physician,Non-Staff Dileep The [address] [address] Patient Name: LE WEEMS MRN: [facility]:[id number] date: 1990 Sex: F Assigned Patient Location: [facility] Current Patient Location: Accession/Order Number: [id number] Exam Date: 04/30/2025 07:02 Report Date: 04/30/2025 [...] Olivares M.D. 04/30/2025 7:10 AM Dictation Location: [place] [address] Electronically authenticated by: [id number] Y Date: 04/30/2025 07:10 Dictated By: Mariam Olivares M.D. Signed By: 04/30/25 0713 DD/ 0710 TD/TT: Customer Business Manager: Procedure Note Radiology, Radiologist, - 04/30/[address] [address] Ultrasound Report Signed Patient: LE WEEMSMR#: [id number] : 1990Acct:[id number] Age/Sex: 34 / FADM Date: 04/29/25 Loc: US Attending Dr: Neha Borrego D.O. Ordering Physician: Neha Borrego D.O. Date of Service: 04/29/25 Procedure(s): US OB BPP w non-stress Accession Number(s): [id number] cc: Neha Borrego D.O.; Physician,Non-Staff Dileep The [address] [address] Patient Name: LE WEEMS MRN: [facility]:[id number] date: 1990 Sex: F Assigned Patient Location: [facility] Current Patient Location: Accession/Order Number: [id number] Exam Date: 04/30/2025 07:02 Report Date: 04/30/2025 [...] Olivares M.D. 04/30/2025 7:10 AM Dictation Location: [place] [address] Electronically authenticated by: [id number] Y Date: 507:10 Dictated By: Mariam Olivares M.D. Signed By:04/30/25 0713 DD/ 0710 TD/TT: Customer Business Manager: us Neha Elmo DO CLINISYNC IMAGING Final Result * Pap Smear (09/16/2024 12:00 AM EST) Swab Cervical swab / Unknown us Neha Elmo DO LAB CYTOLOGY ORDERABLES Final Re sult EXTERNAL LAB * THINPREP TIS PAP REFLEX HPV MRNA E6/E7 (65264) (08/05/2020) CLINICAL INFORMATION: None given [facility]Y [...] LAB Comment: [facility], CT(ASCP) CT screening location: [facility], [address] [place] [address], [place] [address]. COMMENT SEE COMMENT NOMJulian PARRA Krystal EXTERNAL LAB Comment: EXPLANATORY NOTE: The Pap [...] Pulido MD [facility] Final Result [facility] from Last 3 Months or Most Recently Relevant to Health Maintenance Insurance [facility]
--- OUTSIDE RECORDS SUMMARY | 2025-05-06 07:59 | XMS_ITS | Encounter Summary ---
Author Organization [facility] Address [address] [place] [address] Care Team Providers Care Mix House Tender Name Role Phone Unavailable Primary Care Provider Unavailabl e Encounter Details Date Type Department Care Team (Late st Contact Info) Description 11/08/2024 Clinisync Result Encounter [facility] External Department Unsolicited Neha Borrego, DO [address] [place], [facility]11 Social History Tobacco Use Types Packs/Day [...] [facility] BCP OB [address] [place] [address] Neha Borrego, DO [address], [facility]11 05/19/2025 9:40 AM EDT Routine [facility] BCP OB [address] [place] [address] Neha Borrego, DO [address], [facility]11 documented as of this encounter Procedures Procedure [...] AM EST Narrative 11/08/2024 11:35 AM EST [address] [address] Ultrasound Report Signed Patient: LE WEEMS MR#: [id number] : 1990 Acct:[id number] Age/Sex: 33 / F ADM Date: 11/08/24 Loc: US Attending Dr: Neha Borrego D.O. Ordering Physician: Neha Borrego D.O. Date of Service: 11/08/24 Procedure(s): US OB transvaginal Accession Number(s): [id number] cc: Neha Borrego D.O.; Physician,Non-Staff M.DNikos The [address] [address] Patient Name: LE WEEMS MRN: [facility]:[id number] date: 1990 Sex: F Assigned Patient Location: US Current Patient Location: US Accession/Order Number: [id number] Exam Date: 11/08/2024 10:18 Report Date: 11/08/2024 [...] Signed By: 11/08/24 1135 DD/ 1132 TD/TT: Recreation Assistant: Procedure Note Radiology, Radiologist, MD - 11/08/2024 [place] [address] Ultrasound Report Signed Patient: LE WEEMSMR#: [id number] : 1990Acct:[id number] Age/Sex: 33 / FADM Date: 11/08/24 Loc: US Attending Dr: Neha Borrego D.O. Ordering Physician: Neha Borrego D.O. Date of Service: 11/08/24 Procedure(s): US OB transvaginal Accession Number(s): [id number] cc: Neha Brorego D.O.; Physician,Non-Staff Dileep The [place] [id number] Patient Name: LE WEEMS MRN: [facility]:[id number] date: 1990 Sex: F Assigned Patient Location: US Current Patient Location: US Accession/Order Number: [id number] Exam Date: 11/08/2024 10:18 Report Date: 11/08/2024 [...] M.D. Signed By:11/08/24 1135 DD/ 1132 TD/TT: Recreation Assistant: Neha Borrego DO CLINISYNC IMAGING Final Result * HBSAG SCREEN (11/08/2024 10:14 AM EST) HBSAG SCREEN Negative Negative [facility] Comment: Performed at: [address] [id number] [employer] Screen Watcher: Toni Espinal PhD, Phone: [phone] 11/08/2024 10:1 4 AM EST 11/08/2024 10:16 AM EST Narrative CLINISYNC - 11/09/2024 12:09 PM EST Neha Elmo DO LAB BLOOD ORDERABLES Final Resul t [facility] * RAPID PLASMA REAGIN, QUANT (11/08/2024 10:14 AM EST) RAPID PLASMA REAGIN, QUANT Non Reactive NonRea<1: 1 titer [facility] Comment: Please Note: This test does not meet current guidelines for screening and diagnosis of syphilis. This test is intended for following treatment response in patients being treated for syphilis infection. To screen for syphilis infection, a reflex cascade that includes both RPR and a treponema-specific assay should be utilized, such as Treponema pallidum (Syphilis) Screening Colo (898843) or Rapid Plasma Reagin (RPR) Test With Reflex to Quantitative RPR and Confirmatory Treponema pallidum Antibodies (698330). Performed at: [address] [id number] [employer] Screen Watcher: Toni Espinal PhD, Phone: [phone] 11/08/2024 10:1 4 AM EST 11/08/2024 10:16 AM EST Narrative CLINISYND - 11/09/2024 12:09 PM EST [facility] LAB BLOOD ORDERABLES Final Resul t Performing Organization Address [facility] de Phone Number [facility] * HCV ANTIBODY RFX TO QUANT PCR (11/08/2024 10:14 AM EST) Pathologist [facility] HCV AB Non Reactive Non Reactive [facility] INTERPRETATION: Comment . [facility] Comment: Not infected with HCV unless early or acute infection is suspected (which may be delayed in an immunocompromised individual), or other evidence exists to indicate HCV infection. 11/08/2024 10:1 4 AM EST 11/08/2024 10:16 AM EST Narrative CLINISYNC - 11/09/2024 5:07 AM EST [employer] LAB BLOOD ORDERABLES Final Resul t Performing Organization Address [facility] Co de Phone Number [facility] * HIV AB/P24 AG WITH REFLEX (11/08/2024 10:14 AM EST) Pathologist [facility] HIV AB/P24 AG SCREEN Non Reactive Non Reactive [facility] Comment: HIV-1/HIV-2 antibodies and HIV-1 p24 antigen were NOT detected. There is no laboratory evidence of HIV infection. HIV Negative Performed at: [facility] Lab[address] [id number] [employer] Screen Watcher: Toni Espinal PhD, Phone: [phone] 11/08/2024 10:1 4 AM EST 11/08/2024 10:16 AM EST Narrative CLINISYNC - 11/09/2024 5:07 AM EST us Neha Elmo DO LAB BLOOD ORDERABLES Final Resul t CLINISYNC TB * ALL RUBELLA IGG AB (11/08/2024 10:14 AM EST) RUBELLA ANTIBODIES, IGG 1.78 Immune >0.99 index [facility] Comment: Non-immune <0.90 Equivocal 0.90 - 0.99 Immune >0.99 11/08/2024 10:1 4 AM EST 11/08/2024 10:16 AM EST Narrative CLINISYNC - 11/09/2024 5:07 AM EST us Neha Elmo DO CLINISYNC Final Result Performing Organization Address City/[facility]/ZIP Co de Phone Number CLINISYNC TB * ALL TYPE AND SCREEN (11/08/2024 10:14 AM EST) BLOOD TYPE B Positive [facility] ANTIBODY SCREEN NEGATIVE [facility] 11/08/2024 10:1 4 AM EST 11/08/2024 10:16 AM EST Narrative CLINISYNC - 11/08/2024 12:[address] [facility] , [place] Neha Elmo DO CLINISYNC Final Result CLINISYNC TB documented in this encounter Visit Diagnoses Not on filedocumented in this encounter
--- OUTSIDE RECORDS SUMMARY | 2025-05-06 07:59 | XMS_ITS | Encounter Summary ---
Author Organization [facility] Address [address] [place] [address] Care Team Providers Care Access Registrar Name Role Phone Unavailable Primary Care Provider Unavailabl e Encounter Details Date Type Department Care Team (Late st Contact Info) Description 05/05/2025 Bamboo flowsheet [facility] BCP OB [address] [place] [address] Mik Borrego, DO [address], [place] [id number] Social History Tobacco Use Types Packs/Day Years [...] [facility] [address] [place] [address] Mik Borrego, DO [address], [place] [address] 05/19/2025 9:40 AM EDT Routine [facility] [address] [place] [address] Mik Borrego, DO [address], [id number] documented as of this encounter Visit Diagnoses Not on filedocumented in this encounter
--- OUTSIDE RECORDS SUMMARY | 2025-05-06 07:59 | XMS_ITS | Encounter Summary ---
Author Organization [facility] Healthcare Address [address] [place] [address] Care Team Providers Care Skylights Assembler Name Role Phone Unavailable Primary Care Provider Unavailabl e Encounter Details Date Type Department Care Team (Late st Contact Info) Description 04/01/2025 Abstract [facility] [address] [facility] [place] [address] Juanis Esparza MA Social History Tobacco [...] Routine [facility] BCP OB [address] [place] [address] Mik Borrego DO [address] [place] [address] [place] [address] 05/19/2025 9:40 AM EDT Routine [facility] BCP OB [address] [place] [address] Mik Borrego DO [address] [place] [address] [place] [address] documented as of this encounter Visit Diagnoses Not on filedocumented in this encounter
--- OUTSIDE RECORDS SUMMARY | 2025-05-06 07:59 | XMS_ITS | Encounter Summary ---
Author Organization [facility] Address [address] [place] [address] Care Team Providers Care Health Information Systems Technician Name Role Phone Unavailable Primary Care Provider Unavailabl e Encounter Details Date Type Department Care Team (Late st Contact Info) Description 01/22/2025 Abstract [facility] BCP OB [address] [place] [address] Mik Borrego DO [facility] [place], [facility]11 Social History Tobacco Use Types Packs/Day [...] [place], [facility] 05/19/2025 9:40 AM EDT Routine [facility] BCP OB [address] [place] [address] Mik Borrego, DO [facility] [place], [facility] documented as of this encounter Visit Diagnoses Not on filedocumented in this encounter
--- OUTSIDE RECORDS SUMMARY | 2025-05-06 07:59 | XMS_ITS | Encounter Summary ---
Author Organization [facility] Address [address] [place] [address] Care Team Providers Care Hand Launderer Name Role Phone Unavailable Primary Care Provider Unavailabl e Encounter Details Date Type Department Care Team (Late st Contact Info) Description 04/23/2025 Clinisync Result Encounter NOMS External Department Unsolicited Neha Borrego, DO [address] [place], [facility]11 Social History Tobacco Use Types Packs/Day Years [...] [facility]S BCP OB [address] [place] [phone] Neha Borrego, DO [address] [place], [facility]11 05/19/2025 9:40 AM EDT Routine [facility] BCP OB [address] [place] [address] Neha Borrego, DO [address] [place], [facility]11 documented as of this encounter Procedures Procedure Name Priority Date/Time Associated Diagnosis Comments US OB BPP W NON-STRESS 04/23/2025 8:03 AM EDT documented in this encounter Results * US OB BPP W NON-STRESS (04/23/2025 8:03 AM EDT) Anatomical Region Laterality Modality Other 04/23/2025 8:03 AM EDT Narrative 04/23/2025 9:46 [place] [address] Ultrasound Report Signed Patient: LE WEEMS MR#: [id number] : 1990 Acct:[id number] Age/Sex: 34 / F ADM Date: 04/22/25 Loc: US Attending Dr: Neha Borrego D.O. Ordering Physician: Neha Borrego D.O. Date of Service: 04/22/25 Procedure(s): US OB BPP w non-stress Accession Number(s): [id number] cc: Neha Borrego D.O.; Physician,Non-Staff M.David The [address] [address] Patient Name: LE WEEMS MRN: [id number] date: 1990 Sex: F Assigned Patient Location: US Current Patient Location: Accession/Order Number: [id number] Exam Date: 04/23/2025 08:01 Report Date: 04/23/2025 [...] Olivares M.D. 04/23/2025 8:03 AM Dictation Location: [place] [address] Electronically authenticated by: [id number] Y Date: 04/23/2025 08:03 Dictated By: Mariam Olivares M.D. Signed By: 04/23/25 0946 DD/ 08 TD/TT: Forensic Pathologist: Procedure Note Radiology, Radiologist, - 04/23/2025 [place] [address] Ultrasound Report Signed Patient: LE WEEMSMR#: [id number] : 1990Acct:[id number] Age/Sex: 34 / FADM Date: 04/22/25 Loc: US Attending Dr: Neha Borrego D.O. Ordering Physician: Neha Borrego D.O. Date of Service: 04/22/25 Procedure(s): US OB BPP w non-stress Accession Number(s): [id number] cc: Neha Borrego D.O.; Physician,Non-Staff Dileep The [place] [id number] Patient Name: LE WEEMS MRN: TBH:[id number] date: 1990 Sex: F Assigned Patient Location: US Current Patient Location: Accession/Order Number: [id number] Exam Date: 04/23/2025 08:01 Report Date: 04/23/2025 [...] This is in normal range. Total score: 8/ US/US OB BPP w non-stress IMPRESSION: NORMAL BIOPHYSICAL PROFILE POTENTIAL NUCHAL CORD. Impression dictated by: Mariam Olivares M.D. 04/23/2025 8:03 AM Dictation Location: [place] [address] Electronically authenticated by: [id number] Y Date: 508:03 Dictated By: Mariam Olivares M.D. Signed By:04/23/25 0946 DD/ 0803 TD/TT: Forensic Pathologist: us Neha Borrego DO [facility] Final Result documented in this encounter Visit Diagnoses Not on filedocumented in this encounter"
--- OUTSIDE RECORDS SUMMARY | 2025-05-06 07:59 | XMS_ITS | Encounter Summary ---
Author Organization [facility] Address [address] [place] [address] Care Team Providers Care Cap Maker Name Role Phone Unavailable Primary Care Provider Unavailabl e Encounter Details Date Type Department Care Team (Late st Contact Info) Description 05/05/2025 Abstract [facility] BCP OB [address] [place] [address] Mik Borrego DO [facility] [place], [facility]11 Social History Tobacco Use Types Packs/Day [...] [address] Mik Borrego, DO [address] [place], [facility]11 05/19/2025 9:40 AM EDT Routine [facility] BCP OB [address] [place] [address] Mik Borrego DO [facility] [place], [facility]11 documented as of this encounter Visit Diagnoses Not on filedocumented in this encounter
--- OUTSIDE RECORDS SUMMARY | 2025-05-06 07:59 | XMS_ITS | Encounter Summary ---
Author Organization [facility] Address [address] [place] [address] Care Team Providers Care Teacher Aide Name Role Phone Unavailable Primary Care Provider Unavailabl e Encounter Details Date Type Department Care Team (Late st Contact Info) Description 04/30/2025 Telephone [facility] BCP OB [address] [facility] [place] [phone] Juanis Esparza MA Social History Tobacco Use [...] AM EDT Rout[facility] [address] [facility] [place] [phone] Mik Borrego, DO [facility] [place] [address] 05/19/2025 9:40 AM EDT Routine [facility] BCP OB [address] [place] [address] Mik Borrego, DO [facility] [place] [address] documented as of this encounter Visit Diagnoses Not on filedocumented in this encounter
--- OUTSIDE RECORDS SUMMARY | 2025-05-06 07:59 | XMS_ITS | Encounter Summary ---
Author Organization [facility] Address [address] [place] [address] Care Team Providers Care District Agent Name Role Phone Unavailable Primary Care Provider Unavailabl e Encounter Details Date Type Department Care Team (Late st Contact Info) Description 02/03/2025 Abstract [facility] BCP OB [address] [place] [address] Mik Borrego DO [facility] [place], [facility]11 Social History [...] Routine NOMS BCP OB [address] [place] [address] Mik Borrego, DO [address] [place], [facility]11 05/19/2025 9:40 AM EDT Routine NOM[facility] BCP OB [address] [place] [address] Mik Borrego, DO [facility] [place], [facility]11 documented as of this encounter Visit Diagnoses Not on filedocumented in this encounter
--- OUTSIDE RECORDS SUMMARY | 2025-05-06 07:59 | XMS_ITS | Encounter Summary ---
Author Organization [facility] Address [address] [place] [address] Care Team Providers Care Temperer Name Role Phone Unavailable Primary Care Provider Unavailabl e Encounter Details Date Type Department Care Team (Late st Contact Info) Description 04/30/2025 Clinisync Result Encounter NOMS External Department Unsolicited Neha Borrego, DO [address] [place], [facility]11 Social History Tobacco Use Types Packs/Day [...] [facility] BCP OB [address] [place] [phone] Neha Borrego, DO [address] [place], [facility] 05/19/2025 9:40 AM EDT Routine [facility] BCP OB [address] [place] [address] Neha Borrego, DO [address] [place], [facility] documented as of this encounter Procedures Procedure Name Priority Date/Time Associated Diagnosis Comments US OB GROWTH 04/30/2025 7:10 AM EDT documented in this encounter Results * US OB GROWTH (04/30/2025 7:10 AM EDT) Anatomical Region Laterality Modality Other 04/30/2025 7:10 AM EDT Narrative 04/30/2025 7:13 [place] [address] Ultrasound Report Signed Patient: LE WEEMS MR#: [id number] : 1990 Acct:[id number] Age/Sex: 34 / F ADM Date: 04/29/25 Loc: US Attending Dr: Neha Borrego D.O. Ordering Physician: Neha Borrego D.O. Date of Service: 04/29/25 Procedure(s): US OB growth Accession Number(s): [id number] cc: Neha Borrego D.O.; Physician,Non-Staff M.DNikos The [place] [address] Patient Name: LE WEEMS MRN: [id number] date: 1990 Sex: F Assigned Patient Location: Current Patient Location: Accession/Order Number: [id number] Exam Date: 04/30/2025 07:02 Report Date: 04/30/2025 [...] Olivares M.D. 04/30/2025 7:10 AM Dictation Location: [place] [address] Electronically authenticated by: [id number] Y Date: 04/30/2025 07:10 Dictated By: Mariam Olivares M.D. Signed By: 04/30/25 0713 DD/ 07 TD/TT: Airport Traffic Controller: Procedure Note Radiology, Radiologist, MD - 04/30/2025 [place] [address] Ultrasound Report Signed Patient: LE WEEMSMR#: [id number] : 1990Acct:[id number] Age/Sex: 34 / FADM Date: 04/29/25 Loc: US Attending Dr: Neha Borrego D.O. Ordering Physician: Neha Borrego D.O. Date of Service: 04/29/25 Procedure(s): US OB growth Accession Number(s): [id number] cc: Elmo,Neha D.O.; Physician,Non-Staff Dileep The [place] [id number] Patient Name: LE WEEMS MRN: [facility]:[id number] date: 1990 Sex: F Assigned Patient Location: Current Patient Location: Accession/Order Number: [id number] Exam Date: 04/30/2025 07:02 Report Date: 04/30/2025 [...] NORMAL BIOPHYSICAL PROFILE Impression dictated by: Mariam Oilvares M.D. 04/30/2025 7:10 AM Dictation Location: [place] [address] Electronically authenticated by: [id number] Y Date: 7:10 Dictated By: Mariam Olivares M.D. Signed By:04/30/25 0713 DD/ TD/TT: Airport Traffic Controller: us Neha Borrego DO [facility] Final Result documented in this encounter Visit Diagnoses Not on filedocumented in this encounter
--- OUTSIDE RECORDS SUMMARY | 2025-05-06 07:59 | XMS_ITS | Encounter Summary ---
Author Organization [facility] Address [address] [place] [address] Care Team Providers Care Arboriculture Teacher Name Role Phone Unavailable Primary Care Provider Unavailabl e Encounter Details Date Type Department Care Team (Late st Contact Info) Description 01/22/2025 Abstract [facility] BCP OB [address] [place] [address] Mik Borrego DO [facility] [place], [facility]11 Social History Tobacco Use Types Packs/Day Years [...] [address] Mik Borrego, DO [address] [place], [facility] 05/19/2025 9:40 AM EDT Routine NOMS BCP OB [address] [place] [address] Mik Borrego, DO [facility] [place], [facility] documented as of this encounter Visit Diagnoses Not on filedocumented in this encounter
--- OUTSIDE RECORDS SUMMARY | 2025-05-06 07:59 | XMS_ITS | Encounter Summary ---
Author Organization [facility] Address [address] [place] [address] Care Team Providers Care Machine Tool Mechanic Name Role Phone Unavailable Primary Care Provider Unavailabl e Encounter Details Date Type Department Care Team (Late st Contact Info) Description 04/30/2025 Clinisync Result Encounter NOMS External Department Unsolicited Neha Borrego, DO [address] [place], [facility]11 Social History Tobacco Use Types [...] Routine NOMS BCP OB [address] [place] [phone] Neha Borrego, DO [address] [place], [facility]11 05/19/2025 9:40 AM EDT Routine NOMS BCP OB [address] [place] [address] Neha Borrego, DO [address] [place], [facility]11 documented as of this encounter Procedures Procedure Name Priority Date/Time Associated Diagnosis Comments TBH URINE T PROTEIN CREAT RATIO Routine 04/30/2025 4:30 PM EDT [facility] CMP (CMP) (FOR REMOTE [facility] USE) Routine 04/30/2025 3:08 PM EDT ALL [...] - 04/30/2025 5:00 PM EDT us Neha Elmo DO [facility] Final Result [facility] TB * ALL URIC ACID (04/30/2025 3:08 PM EDT) URIC ACID 5.7 2.6 - 6.0 mg/dL [facility] 04/30/2025 3:08 PM EDT 04/30/2025 3:12 PM EDT Narrative [facility] - 04/30/2025 3:45 PM EDT us Neha Elmo DO [facility] Final Result [facility] TB[facility] * ALL LDH (04/30/2025 3:08 PM EDT) LACTATE DEHYDROGENASE 147 81 - 234 U/L [facility] 04/30/2025 3:08 PM EDT 04/30/2025 3:12 PM EDT Narrative [facility] - 04/30/2025 3:44 PM EDT us Neha Elmo DO [facility] Final Result [facility] * (ABNORMAL) [facility] CMP (CMP) (FOR REMOTE [facility] USE) (04/30/2025 3:08 PM EDT) SODIUM 143 136 - 145 mmol/L TBH POTASSIUM 3.4(L) 3.5 - 5.1 mmol/L TBH CHLORIDE 106 98 - 107 mmol/L TBH CARBON DIOXIDE 22.6 21.0 - 32.0 mmol/L TBH ANION GAP 17.8 TBH GLUCOSE 108(H) 74 - 106 mg/dL TBH BLOOD UREA NITROGEN 9.0 7.0 - 18.0 mg/dL [facility] CREATININE 0.60 0.55 - 1.02 mg/dL TBH TBH EGFR-AF ERITREAN >60 >=60 mL/min/1. 73m 2 TBH TBH EGFR-NON AF ERITREAN >60 >=60 mL/min/1. 73m 2 TBH BUN [...] [facility] - 04/30/2025 3:43 PM EDT Neha Borrego DO [facility] Final Result [facility] TB * (ABNORMAL) ALL CBC WITH AUTO DIFF (04/30/2025 3:08 PM EDT) Pathologist [facility] TB WBC 11.6(H) 4.0 - 11.0 10 [...] DO [facility] Final Result Performing Organization Address City/State/[facility] Co de Phone Number [facility] * US OB BPP W NON-STRESS (04/30/2025 7:10 AM EDT) Anatomical Region Laterality Modality Other 04/30/2025 7:10 AM EDT Narrative 04/30/2025 7:13 [place] [address] Ultrasound Report Signed Patient: LE WEEMS MR#: [id number] : 1990 Acct:[id number] Age/Sex: 34 / F ADM Date: 04/29/25 Loc: US Attending Dr: Neha Borrego D.O. Ordering Physician: Neha Borrego D.O. Date of Service: 04/29/25 Procedure(s): US OB BPP w non-stress Accession Number(s): [id number] cc: Neha Borrego D.O.; Physician,Non-Staff M.David The [address] [id number] Patient Name: LE WEEMS MRN: [facility] [employer] [facility] [employer]:[id number] date: 1990 Sex: F Assigned Patient Location: [facility] Current Patient Location: Accession/Order Number: [id number] Exam Date: 04/30/2025 07:02 Report Date: 04/30/2025 [...] Olivares M.D. 04/30/2025 7:10 AM Dictation Location: [place] [address] Electronically authenticated by: [id number] Y Date: 04/30/2025 07:10 Dictated By: Mariam Olivares M.D. Signed By: 04/30/25 0713 DD/ 0710 TD/TT: Lacquer Sprayer: Procedure Note Radiology, Radiologist, - 04/30/2025 [place] [address] Ultrasound Report Signed Patient: LE WEEMSMR#: [id number] : 1990Acct:[id number] Age/Sex: 34 / FADM Date: 04/29/25 Loc: US Attending Dr: Neha Borrego D.O. Ordering Physician: Neha Borrego D.O. Date of Service: 04/29/25 Procedure(s): US OB BPP w non-stress Accession Number(s): [id number] cc: Neha Borrego D.O.; Physician,Non-Staff M.DNikos [place] [id number] Patient Name: LE WEEMS MRN: [id number] date: 1990 Sex: F Assigned Patient Location: [facility] Current Patient Location: Accession/Order Number: [id number] Exam Date: 04/30/2025 07:02 Report Date: 04/30/2025 [...] Olivares M.D. 04/30/2025 7:10 AM Dictation Location: [place] [address] Electronically authenticated by: [id number] Y Date: 7:10 Dictated By: Mariam Olivares M.D. Signed By:04/30/25 0713 DD/ 0710 TD/TT: Lacquer Sprayer: us Neha Elmo DO [facility] Final Result documented in this encounter Visit Diagnoses Not on filedocumented in this encounter
--- OUTSIDE RECORDS SUMMARY | 2025-05-06 07:59 | XMS_ITS | Encounter Summary ---
Author Organization [facility] Address [address] [place] [address] Care Team Providers Care Air Analysis Technician Name Role Phone Unavailable Primary Care Provider Unavailabl e Encounter Details Date Type Department Care Team (Late st Contact Info) Description 01/17/2025 Abstract [facility]OM[facility] BCP OB [address] [place] [address] Mik Borrego DO [facility] [place], [facility]11 Social History [...] [address] Mik Borrego, DO [address] [place], [facility]11 05/19/2025 9:40 AM EDT Routine NOMS BCP OB [address] [place] [address] Mik Borrego DO [facility] [place], [facility]11 documented as of this encounter Visit Diagnoses Not on filedocumented in this encounter
--- OUTSIDE RECORDS SUMMARY | 2025-05-06 07:59 | XMS_ITS | Encounter Summary ---
Author Organization [facility] Address [address] [place] [address] Care Team Providers Care Medical Education Manager Name Role Phone Unavailable Primary Care Provider Unavailabl e Encounter Details Date Type Department Care Team (Late st Contact Info) Description 01/21/2025 Abstract [facility] BCP OB [address] [place] [address] Mik Borrego DO [facility] [place], [facility]11 Social History Tobacco [...] [address] Mik Borrego, DO [address] [place], [facility]11 05/19/2025 9:40 AM EDT Routine NOMS BCP OB [address] [place] [address] Mik Borrego DO [facility] [place], [facility]11 documented as of this encounter Visit Diagnoses Not on filedocumented in this encounter
--- OUTSIDE RECORDS SUMMARY | 2025-05-06 07:59 | XMS_ITS | Encounter Summary ---
Author Organization [facility] Address [address] [place] [address] Care Team Providers Care Editorial Director Name Role Phone Unavailable Primary Care Provider Unavailabl e Encounter Details Date Type Department Care Team (Late st Contact Info) Description 02/05/2025 Abstract NOMS BCP OB [address] [place] [address] Mik Borrego DO [facility] [place], [facility]11 [...] [place] [address] Mik Borrego, DO [facility] [place], [facility]11 documented as of this encounter Visit Diagnoses Not on filedocumented in this encounter
--- OUTSIDE RECORDS SUMMARY | 2025-05-06 07:59 | XMS_ITS | Encounter Summary ---
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 Name Role Phone Unavailable Primary Care Provider Unavailabl e Encounter Details Date Type Department Care Team (Late st Contact Info) Description 11/11/2024 Abstract [facility] BCP OB [address] [place] [address] Mik Borrego DO [facility] [place], [facility]11 Social History Tobacco Use Types [...] Routine NOMS BCP OB [address] [place] [address] Mik Borrego, DO [address] [place], [facility]11 05/19/2025 9:40 AM EDT Routine [facility] BCP OB [address] [place] [address] Mik Borrego DO [facility] [place], [facility]11 documented as of this encounter Visit Diagnoses Not on filedocumented in this encounter
--- OUTSIDE RECORDS SUMMARY | 2025-05-06 08:20 | XMS_ITS | CCD ---
Author Organization [facility] Care Team Providers Care Access Manager Name Role Phone Helene HAMILTON Darwin Primary [...] Attending Unavailable ELMO, Mik R Referring Unavailable KwadwonusShahram Consulting Unavailable Kirnus, Shahram D Consulting Unavailable Kirnus, Shahram D Consulting Unavailable ELMO, Mik R Admitting Unavailable ELMO, Mik R Attending Unavailable ELMO, MIK R Referring Unavailable BRUCE PEREZ Attending Unavailable ELMO, MIK R Referring Unavailable ELMO, MIK R Referring Unavailable ELMO, MIK R Referring Unavailable ELMO, MIK Attending Unavailable LINDSEY COBB Attending Unavailable EMLO, MIK Attending Unavailable ELMO, MIK Attending Unavailable ELMO, MIK Attending Unavailable ELMO, MIK Attending Unavailable ELMO, MIK Attending Unavailable ELMO, MIK Attending Unavailable ELMO, MIK Attending Unavailable ELMO, MIK Attending Unavailable LINDSEY COBB Attending Unavailable Allergies Allergy Classification Reported Allergen(s) Allergy Type Date of Onset Reaction(s) Facility (20 sources) metFORMIN; Translations: [metformin] Drug Allergy 05-06-20 Rhabdomyolysis (disorder), Other (See Comments) [facility] (20 sources) Phentermine; Translations: [phentermine] Drug Allergy 09-16-20 Dyspnea (finding), Weal (disorder), Shortness of breath [facility] Primary Care (20 sources) dulaglutide; Translations: [DULAGLUTIDE] Drug Allergy 05-06-20 [facility] (20 sources) Sulfites; Translations: [SULFITES] Propensity to adverse reactions 05-06-20 [facility] (20 sources) metFORMIN Drug Allergy 09-16-20 [facility] (20 sources) Other Propensity to adverse reactions 11-25-19 [facility] (9 sources) dulaglutide Drug Allergy 12-06-19 [facility] (20 sources) Gelatin; Translations: [GELATIN] Drug Allergy 12-06-19 [facility] (20 sources) metFORMIN Drug Allergy 12-31-19 [facility] (20 sources) Pollen Propensity to adverse reactions 12-31-19 Unknown [facility] (20 sources) Prednisone Allergy to substance 12-31-19 Rash [facility] (20 sources) Propranolol Drug Allergy 12-31-19 [facility] (3 sources) No Known Medication Allergies; Translations: [No Known Medication Allergies] Propensity to adverse reactions (disorder) [facility] Repository Medications Current Medications Medication Drug Class(es) Dates Sig (Normalized) Sig (Original) [id number] 200 actuat albuterol 0.09 mg/actuat metered dose inhaler (20 sources) beta2-Adrenergic Agonist Start: 04-04-2024 albuterol HFA 90 mcg/act inhaler 04/04/2024 Active Start: 10-19-2021 take 1 dose by inhal ation every four hours ProAir HFA 90 mcg/inh inhalation aerosol 2 puff(s), Inhalation, q4hr for wheezing, 1 EA, Refill(s) 11, [id number], 170, cm, 07/13/21 9:30:00 EDT, Height/Length Dosing, [...] q6hr for wheezing, 18 gram, Refill(s) 0, [facility] #[id number], 170, cm, 05/17/22 11:42:00 EDT, Height/Length Dosing, [...] Glucose Monitoring Suppl (D-Care Glucometer) w/Device kit (20 sources) Start: 01-27-2025 End: 01-27-2026 Blood Glucose Monitoring Suppl (D-Care Glucometer) w/Device kit Indications: Gestational diabetes mellitus (GDM), antepartum, gestational diabetes method of control unspecified ([facility]) , Elevated glucose tolerance test 1 kit [...] antepartum, gestational diabetes method of control unspecified ([facility]) , Elevated glucose tolerance test 1 kit [...] q24hr, # 90 tab(s), Refills(s) 1, Pharmacy: [facility] #[id number], 170, cm, 05/17/22 11:42:00 EDT, Height/Length Dosing, 95.1, kg, 05/17/22 11:42:00 EDT, Weight Dosing Start Date: 06/20/22 Status: Ordered Quantity: 90.0 Unit: tab(s) Repeat number: 2 Start: 03-08-2022 take 1 tablet by volodymyr th every twenty-four hours Wellbutrin XL 150 mg/24 hours Tab-ER 150 mg = 1 tab(s), Oral, q24hr, # 30 tab(s), Refills(s) 2, Pharmacy: [facility] #[id number], 170, cm, 03/08/22 10:25:00 EDT, Height/Length Dosing, 98.4, kg, 03/08/22 10:25:00 EDT, Weight Dosing Start Date: 03/08/22 Status: Ordered Start: 03-08-2022 take 1 tablet by volodymyr th every twenty-four hours Wellbutrin XL 150 mg/24 hours Tab-ER 150 mg = 1 tab(s), Oral, q24hr, # 30 tab(s), Refills(s) 2, Pharmacy: [facility] #[id number], 170, cm, 03/08/22 10:25:00 EDT, Height/Length Dosing, 98.4, kg, 03/08/22 10:25:00 EDT, Weight Dosing Start Date: 03/08/22 Status: Ordered cetirizine hydrochloride 10 mg oral tablet (20 sources) Histamine-1 Receptor Antagonist cetirizine (ZyrTEC) 10 MG tablet Take by mouth Active insulin isophane, human 100 unt/ml injectable suspension (14 sources) Start: End: inject 5 [IU] by subcutaneous injection in the morning insulin NPH, Isophane, (HumuLIN N,NovoLIN N) 100 UNIT/ML injection Indications: Gestational Diabetes Inject 5 Units under the skin in the morning and 5 Units in the evening. Inject before meals. 3 mL 04/08/2025 05/08/2025 Active insulin, regular, human 100 unt/ml injectable solution (14 sources) Insulin Start: End: inject 5 [IU] by subcutaneous injection once in the morning, then inject 5 [IU] by subcutaneous injection once in the evening insulin regular (HumuLIN R,NovoLIN R) 100 UNIT/ML injection Indications: Gestational diabetes mellitus (GDM), antepartum, gestational diabetes method of control unspecified ([facility]) 5 units sub q in the am and 5 units sub q in the evening 3 mL 3 04/08/2025 04/08/2026 Active isopropyl alcohol 0.7 ml/ml medicated pad (20 sources) Start: Alcohol Swabs (Alcohol Prep Pad) 70 % pads Indications: Gestational diabetes mellitus (GDM), antepartum, gestational diabetes method of control unspecified ([facility]) , Elevated glucose tolerance test Apply 1 [...] (240 Mg) MG tablet Indications: headache, antepartum ([facility]) Take 1 tablet by mouth once daily [...] qPM, # 90 tab(s), Refills(s) 3, Pharmacy: [facility] #[id number], 170, cm, 05/17/22 11:42:00 EDT, Height/Length Dosing, 95.1, kg, 05/17/22 11:42:00 EDT, Weight Dosing Start Date: 10/03/22 Status: Ordered Quantity: 90.0 Unit: tab(s) Repeat number: 4 naltrexone hydrochloride 50 mg oral tablet (8 sources) Opioid Antagonist Start: 04-12-2022 take 1 tablet by mouth once daily naltrexone 50 mg oral tablet See Instructions, 1 tablet daily, # 90 tab(s), Refills(s) 0, Pharmacy: [facility] #[id number], 170, cm, 04/12/22 11:02:00 EDT, Height/Length Dosing, [...] pain, # 10 tab(s), Refills(s) 0, Pharmacy: [facility] #[id number], 170, cm, 05/11/22 22:56:00 EDT, Height/Length Dosing, [...] E66.9, # 30 tab(s), Refills(s) 0, Pharmacy: [facility] #[id number], 170, cm, 03/08/22 10:25:00 EDT, Height/Length Dosing, [...] mg, SubCutaneous, qWeek, 1 EA, Refill(s) 5, [facility] #[id number], 170, cm, 05/11/22 22:56:00 EDT, Height/Length Dosing, 89, kg, 05/11/22 22:56:00 EDT, Weight Dosing Start Date: 05/12/22 Status: Ordered Quantity: 1.0 Unit: EA Repeat number: 6 spironolactone 25 mg oral tablet (9 sources) Aldosterone Antagonist Start: 06-22-2021 take 1 tablet by mouth twice daily spironolactone 25 mg Tab 25 mg = 1 tab(s), Oral, BID, # 180 tab(s), Refills(s) 3, Pharmacy: [facility], 170, cm, 04/06/21 9:19:00 EDT, Height/Length Dosing, 90, kg, 04/06/21 9:19:00 EDT, Weight Dosing Start Date: 06/22/21 Status: Ordered Quantity: 180.0 Unit: tab(s) Repeat number: 4 tretinoin 0.0004 mg/mg topical gel (6 sources) Retinoid Start: 02-17-2023 apply 1 [IU] topically once daily at bedtime tretinoin Top 0.04% Gel 1 sonya, Topical, Once a day (at bedtime), 45 gram, Refill(s) 0, [facility] #[id number], 170, cm, 05/17/22 11:42:00 EDT, Height/Length Dosing, 95.1, kg, 05/17/22 11:42:00 EDT, Weight Dosing Start Date: 02/17/23 Status: Ordered Quantity: 45.0 Unit: g Repeat number: 1 Start: 12-02-2022 apply 1 [IU] topical ly once daily at bedtime tretinoin Top 0.1% Crm 1 sonya, Topical, Once a day (at bedtime), 20 gram, Refill(s) 6, [facility] #67152, 170, cm, 05/17/22 11:42:00 EDT, Height/Length Dosing, [...] hours, # 4 tab(s), Refills(s) 1, Pharmacy: [facility], 170, cm, 11/03/20 13:01:00 EST, [...] hours, # 4 tab(s), Refills(s) 1, Pharmacy: [facility], 170, cm, 11/03/20 13:01:00 EST, Height/Length Dosing, 94.7, kg, 11/03/20 13:01:00 EST, Brandon... Start Date: 11/03/20 Status: Ordered Ventolin HFA 90 mcg/inh Aerosol (4 sources) Start: 10-18-2021 take 1 puff(s) by inhalation once for wheezing Ventolin HFA 90 mcg/inh Aerosol 1 puff(s), Inhalation, Once for wheezing, 6.7 gm, Refill(s) 2, [facility] #[id number], 170, cm, 07/13/21 9:30:00 EDT, Height/Length Dosing, 88.5, kg, 07/13/21 9:30:00 EDT, Weight Dosing Start Date: 10/18/21 Status: Ordered Ventolin HFA 90 mcg/inh Aerosol-Adpt (3 sources) Start: 10-28-2022 take 2 puff(s) by inhalation every six hours for wheezing Ventolin HFA 90 mcg/inh Aerosol-Adpt 2 puff(s), Inhalation, q6hr for wheezing, 18 gram, Refill(s) 5, [facility] #[id number], 170, cm, 05/17/22 11:42:00 EDT, Height/Length Dosing, [...] Nausea/Vomiting, # 12 tab(s), Refills(s) 0, Pharmacy: [facility] #[id number], 170, cm, 05/17/22 11:42:00 EDT, Height/Length Dosing, [...] Nausea/Vomiting, # 30 tab(s), Refills(s) 1, Pharmacy: [facility][id number], 170, cm, 05/11/22 22:56:00 EDT, Height/Length Dosing, 89, kg, 05/11/22 22:56:00 EDT, Weight Dosing Start Date: 05/12/22 Status: Ordered Quantity: 30.0 Unit: tab(s) Repeat number: 2 Start: 05-12-2022 take 1 tablet by volodymyr th every eight hours as needed for nausea Zofran ODT 4 mg Tab-Dis 4 mg = 1 tab(s), Oral, q8hr, PRN Nausea/Vomiting, # 30 tab(s), Refills(s) 1, Pharmacy: [facility] #[id number], 170, cm, 05/11/22 22:56:00 EDT, Height/Length Dosing, 89, kg, 05/11/22 22:56:00 EDT, Weight Dosing Start Date: 05/12/22 Status: Ordered Start: 12-22-2021 take 1 tablet by volodymyr every eight hours as needed for nausea Zofran ODT 4 mg Tab-Dis 4 mg = 1 tab(s), Oral, q8hr, PRN Nausea/Vomiting, # 12 tab(s), Refills(s) 0, Pharmacy: [facility] #[id number], 170, cm, 12/22/21 7:22:00 EST, Height/Length Dosing, [...] # 2 tab(s), Refills(s) 0, Prophylaxis, Pharmacy: [facility] #[id number], 170, cm, 05/17/22 11:42:00 EDT, Height/Length Dosing, [...] q4hr for wheezing, 1 EA, Refill(s) 11, [facility] #[id number], 170, cm, 07/13/21 9:30:00 EDT, Height/Length Dosing, [...] (9 sources) Hyperlipidemia 11-03-2020 Chronic Essential hypertension (10 sources) Hypertensive disorder; Translations: [Essential (primary) hypertension] Onset: 04-21-2025 04-21-2025 Chronic Hypertension complicating ; childbirth and the puerperium (20 sources) Hypertension complicating ; Translations: [Unspecified maternal hypertension, unspecified trimester] Onset: 01-16-2025 01-16-2025 Chronic Hypertension complicating ; childbirth and the puerperium (6 sources) -induced hypertension; Translations: [Gestational [-induced] hypertension [...] current use of drug therapy; Translations: [Other technician terminal and repeater (current) drug therapy] Onset: 03-08-2022 Episodic Other aftercare (7 sources) Postoperative visit 05-17-2022 Episodic Other complications of (20 sources) Multigravida of advanced maternal age; Translations: [...] [32 weeks gestation of ] 04-21-2025 Episodic Residual codes; unclassified (2 sources) Gestation period, 33 weeks; Translations: [33 weeks gestation of ] 04-30-2025 Episodic Unclassified (9 sources) Drug therapy finding [...] Test Name Value Interpretation Reference Range Facility No Panel InformationOrdered By: Radiologist Radiology on 04-30-2025 [facility] Work Phone: No Panel Informationon 04-30 Radiology Study observation (narrative) [facility] US OB BPP W NON-STRESS on 04-30-[address] [address] Ultrasound Report Signed Patient: JULISSA WEEMS MR#: [id number] : 1990 Acct:[id number] Age/Sex: 34 / F ADM Date: 04/29/25 Loc: US Attending Dr: Mik Borrego D.O. Ordering Physician: Mik Borrego D.O. Date of Service: 04/29/25 Procedure(s): US OB BPP w non-stress Accession Number(s): [id number] cc: Mik Borrego D.O.; Physician,Non-Staff Dileep [address] [address] Patient Name: JULISSA WEEMS MRN: [id number] date: 1990 Sex: F Assigned Patient Location: [facility] Current Patient Location: Accession/Order Number: [id number] Exam Date: 04/30/2025 07:02 Report Date: 04/30/2025 07:10 At the request of: MIK BORREGO DO [...] greater than 2 cm [Y] 2/ SARA: 14.2 cm Total score: 8/8 IMPRESSION: NORMAL BIOPHYSICAL PROFILE Impression dictated by: Mariam Olivares M.D. 04/30/2025 7:10 AM Dictation Location: [place] [address] Electronically authenticated by: [id number] Y Date: 04/30/2025 07:10 Dictated By: Mariam Olivares M.D. Signed By: 04/30/25712 DD/ 9 TD/TT: Lead Massage Therapist: [facility] Radiology, Radiologist, MD - 04/30/2025 [place] [address] Ultrasound Report Signed Patient: JULISSA WEEMS MR#: [id number] : 1990 Acct:[id number] Age/Sex: 34 / F ADM Date: 04/29/25 Loc: US Attending Dr: Mik Borrego D.O. Ordering Physician: Mik Borrego D.O. Date of Service: 04/29/25 Procedure(s): US OB BPP w non-stress Accession Number(s): [id number] cc: Mik Borrego D.O.; Physician,Non-Staff Dileep The [address] [address] Patient Name: JULISSA WEEMS MRN: [facility]:[id number] date: 1990 Sex: F Assigned Patient Location: [facility] Current Patient Location: Accession/Order Number: [id number] Exam Date: 04/30/2025 07:02 Report Date: 04/30/2025 07:10 At the request of: MIK BORREGO DO [...] 04/30/2025 7:10 AM Dictation Location: [place] [address] Electronically authenticated by: [id number] Y Date: 04/30/2025 07:10 Dictated By: Mariam Olivares M.D. Signed By: 04/30/25 0713 DD/ 0710 TD/TT: Lead Massage Therapist: [facility] OB GROWTHon 04-30-2025 [place] [address] Ultrasound Report Signed Patient: JULISSA WEEMS MR#: [id number] : 1990 Acct:[id number] Age/Sex: 34 / F ADM Date: 04/29/25 Loc: US Attending Dr: Mik Borrego D.O. Ordering Physician: Mik Borrego D.O. Date of Service: 04/29/25 Procedure(s): US OB growth Accession Number(s): [id number] cc: Mik Borrego D.O.; Physician,Non-Staff Dileep [address] [address] Patient Name: JULISSA WEEMS MRN: [facility]:[id number] date: 1990 Sex: F Assigned Patient Location: Current Patient Location: Accession/Order Number: [id number] Exam Date: 04/30/2025 07:02 Report Date: 04/30/2025 07:10 At the request of: MIK BORREGO DO [...] 04/30/2025 7:10 AM Dictation Location: [place] [address] Electronically authenticated by: [id number] Y Date: 04/30/2025 07:10 Dictated By: Mariam Olivares M.D. Signed By: 04/30/25712 DD/ 9 TD/TT: Lead Massage Therapist: [facility] Radiology, Radiologist, MD - 04/30/2025 [place] [address] Ultrasound Report Signed Patient: JULISSA WEEMS MR#: [id number] : 1990 Acct:[id number] Age/Sex: 34 / F ADM Date: 04/29/25 Loc: US Attending Dr: Mik Borrego D.O. Ordering Physician: Mik Borrego D.O. Date of Service: 04/29/25 Procedure(s): US OB growth Accession Number(s): [id number] cc: Mik Borrego D.O.; Physician,Non-Staff Dileep The [address] [address] Patient Name: JULISSA WEEMS MRN: [facility]:[id number] date: 1990 Sex: F Assigned Patient Location: Current Patient Location: Accession/Order Number: [id number] Exam Date: 04/30/2025 07:02 Report Date: 04/30/2025 07:10 At the request of: MIK BORREGO DO [...] 04/30/2025 7:10 AM Dictation Location: [place] [address] Electronically authenticated by: [id number] Y Date: 04/30/2025 07:10 Dictated By: Mariam Olivares M.D. Signed By: 04/30/25 0713 DD/ 0710 TD/TT: Lead Massage Therapist: [facility] Urinalysis macro (dipstick) panel (U)on 04-30-2025 Bilirubin, UA Negative Negative - 4(70) +++ mg/dL [facility] Blood, UA Negative Negative - 50 Albin/mcL [facility] Clarity, UA Clear [facility] Color, UA Yellow [facility] Glucose, UA Negative Negative - 2000(110) ++++ mg/dL [facility] Interpretation and review of laboratory results Abnormal [facility] Ketones, UA Negative Negative - 160(16) ++++ mg/dL [facility] Leukocytes, UA Negative Negative - 500+++ Jack/mcL [facility] Nitrite, UA Negative Negative - Positive [facility] pH, UA 6 5 - 9 [facility] Protein, UA Trace Negative - 2000(20) ++++ mg/dL [facility] Spec Grav, UA 1.01 1 - 1.03 [facility] Urobilinogen, UA 1.0 0.2 - 12 mg/dL [facility] US OB BPP W NON-STRESS on 04-23-2025 [place] [address] Ultrasound Report Signed Patient: JULISSA WEEMS MR#: [id number] : 1990 Acct:[id number] Age/Sex: 34 / F ADM Date: 04/22/25 Loc: US Attending Dr: Mik Borrego D.O. Ordering Physician: Mik Borrego D.O. Date of Service: 04/22/25 Procedure(s): US OB BPP w non-stress Accession Number(s): [id number] cc: Mik Borrego D.O.; Physician,Non-Staff M.DNikos The [address] [address] Patient Name: JULISSA WEEMS MRN: [id number] date: 1990 Sex: F Assigned Patient Location: US Current Patient Location: Accession/Order Number: [id number] Exam Date: 04/23/2025 08:01 Report Date: 04/23/2025 [...] Olivares M.D. 04/23/2025 8:03 AM Dictation Location: [place] [address] Electronically authenticated by: [id number] Y Date: 04/23/2025 08:03 Dictated By: Mariam Olivares M.D. Signed By: 04/23/2546 DD/ 2 TD/TT: Lead Massage Therapist: [facility] Radiology, Radiologist, MD - 04/23/2025 [place] [address] Ultrasound Report Signed Patient: JULISSA WEEMS MR#: [id number] : 1990 Acct:[id number] Age/Sex: 34 / F ADM Date: 04/22/25 Loc: US Attending Dr: Mik Borrego D.O. Ordering Physician: Mik Borrego D.O. Date of Service: 04/22/25 Procedure(s): US OB BPP w non-stress Accession Number(s): [id number] cc: Mik Borrego D.O.; Physician,Non-Staff Dileep The [address] [address] Patient Name: JULISSA WEEMS MRN: [facility]:[id number] date: 1990 Sex: F Assigned Patient Location: US Current Patient Location: Accession/Order Number: [id number] Exam Date: 04/23/2025 08:01 Report Date: 04/23/2025 [...] Olivares M.D. 04/23/2025 8:03 AM Dictation Location: [place] [address] Electronically authenticated by: [id number] Y Date: 04/23/2025 08:03 Dictated By: Mariam Olivares M.D. Signed By: 04/23/25 0946 DD/ 0803 TD/TT: Lead Massage Therapist: [facility] Radiology Study observation (narrative) [facility] OB BPP W NON-STRESS Ordered By: Radiologist Radiology on 04-23-2025 [facility] Work Phone: Urinalysis macro (dipstick) panel (U)on 04-21-2025 Bilirubin, UA Negative Negative - 4(70) +++ mg/dL [facility] Blood, UA Negative Negative - 50 Albin/mcL [facility] Clarity, UA Clear [facility] Color, UA Yellow [facility] Glucose, UA Negative Negative - 1999(110) ++++ mg/dL [facility] Interpretation and review of laboratory results Normal [facility] Ketones, UA Positive Negative - 160(16) ++++ mg/dL [facility] Leukocytes, UA Negative Negative - 500+++ Jack/mcL [facility] Nitrite, UA Negative Negative - Positive [facility] pH, UA 7 5 - 9 [facility] Protein, UA Negative Negative - 2000(20) ++++ mg/dL [facility] Spec Grav, UA 1.015 1 - 1.03 [facility] Urobilinogen, UA 0.2 0.2 - 12 mg/dL [facility] Urinalysis macro (dipstick) panel (U)on 04-14-2025 Bilirubin, UA Negative Negative - 4(70) +++ mg/dL [facility] Blood, UA Negative Negative - 50 Albin/mcL [facility] Clarity, UA Clear [facility] Color, UA Yellow [facility] Glucose, UA Negative Negative - 1999(110) ++++ mg/dL [facility] Interpretation and review of laboratory results Abnormal [facility] Ketones, UA Negative Negative - 160(16) ++++ mg/dL [facility] Leukocytes, UA Negative Negative - 500+++ Jack/mcL [facility] Nitrite, UA Negative Negative - Positive [facility] pH, UA 6.5 5 - 9 [facility] Protein, UA Negative Negative - 1999(20) ++++ mg/dL [facility] Spec Grav, UA 1.005 1 - 1.03 [facility] Urobilinogen, UA 1.0 0.2 - 12 mg/dL [facility] Urinalysis macro (dipstick) panel (U)on 04-08-2025 Bilirubin, UA Negative Negative - 4(70) +++ mg/dL [facility] Blood, UA Negative Negative - 50 Albin/mcL [facility] Clarity, UA Clear [facility] Color, UA Yellow [facility] Glucose, UA Negative Negative - 1999(110) ++++ mg/dL [facility] Interpretation and review of laboratory results Abnormal [facility] Ketones, UA Positive Negative - 160(16) ++++ mg/dL [facility] Comment on above: 40 Leukocytes, UA Trace Negative - 500+++ Jack/mcL [facility] Nitrite, UA Negative Negative - Positive [facility] pH, UA 7 5 - 9 [facility] Protein, UA Positive Negative - 1999(20) ++++ mg/dL [facility] Comment on above: 30 Spec Grav, UA 1.015 1 - 1.03 [facility] Urobilinogen, UA 0.2 0.2 - 12 mg/dL [facility] Urinalysis macro (dipstick) panel (U)on 03-24-2025 Bilirubin, UA Negative Negative - 4(70) +++ mg/dL [facility] Blood, UA Negative Negative - 50 Albin/mcL [facility] Clarity, UA Clear [facility] Color, UA Yellow [facility] Glucose, UA Negative Negative - 1999(110) ++++ mg/dL [facility] Interpretation and review of laboratory results Normal [facility] Ketones, UA Negative Negative - 160(16) ++++ mg/dL [facility] Leukocytes, UA Negative Negative - 500+++ Jack/mcL [facility] Nitrite, UA Negative Negative - Positive [facility] pH, UA 7 5 - 9 [facility] Protein, UA Negative Negative - 1999(20) ++++ mg/dL [facility] Spec Grav, UA 1.01 1 - 1.03 [facility] Urobilinogen, UA 0.2 0.2 - 12 mg/dL [facility] Urinalysis macro (dipstick) panel (U)on 02-24-2025 Bilirubin, UA Negative Negative - 4(70) +++ mg/dL [facility] Blood, UA Negative Negative - 50 Albin/mcL [facility] Clarity, UA Clear [facility] Color, UA Yellow [facility] Glucose, UA Negative Negative - 1999(110) ++++ mg/dL [facility] Interpretation and review of laboratory results Normal [facility] Ketones, UA Negative Negative - 160(16) ++++ mg/dL [facility] Leukocytes, UA Negative Negative - 500+++ Jack/mcL [facility] Nitrite, UA Negative Negative - Positive [facility] pH, UA 6.5 5 - 9 [facility] Protein, UA Negative Negative - 1999(20) ++++ mg/dL [facility] Spec Grav, UA 1.025 1 - 1.03 [facility] Urobilinogen, UA 1.0 0.2 - 12 mg/dL [facility] CHEMISTRYOrdered By: Hien Khan on 02-04-2025 Hrs Francisco 24 1 Invalid Interpretation Code [facility] [place] Chem S U24 ProteinOrdered By: RAFAEL MOORE on 02-04-2025 U24 Total Protein 224 mg/24hr High 28-141 Remiso l Chem Comment on above: Performed By: #### 1 [id number] #### [facility] [address] [place] [address] Ur Total Protein 8.8 mg/dL Invalid Interpretation Code Remisol Chem Comment on above: Performed By: #### 1 [id number] #### [facility] [address] [place] [address] U24 Total Volon 02-04-2025 Hrs Francisco 24 Invalid Interpretation Code [facility] Comment on above: Order Comment: Order added by Discern Expert Performed By: #### 2 [id number] #### [facility] [address] [place] [address] U24 Total VolOrdered By: Col loyda Khan on 02-04-2025 Total Volume 2550 mL Invalid Interpretation Code [facility] [place] [facility] Chem S Comment on above: Order Comment: Order added by Discern Expert Performed By: #### 2 [id number] #### [facility] [address] [place] [address] BNPon 01-27-2025 Int Ctr BNP Pass Normal [facility] Comment on above: Performed By: #### 1 [id number] #### [facility] [address] [place] [address] Natriuretic peptide B (Bld) [Mass/Vol] pg/mL Low 5-[address] [facility] Comment on above: Performed By: #### 1 [id number] #### [facility] [address] [place] [address] CBC w/ Auto Diffon 5 Basophils/100 WBC (Bld) 0.3 % Normal 0.0-2.[address] [facility] Comment on above: Performed By: #### 2 [id number] #### [facility] [address] [place] [address] Basophils/Leukocytes Auto (Bld) [Pure # fraction] 0.0 E9/L Normal 0.0-0.[address] [facility] Comment on above: Performed By: #### 2 [id number] #### [facility] [address] [place] [address] Eosinophils (Bld) [#/Vol] 0.1 E9/L Normal 0.0-0.[address] [facility] Comment on above: Performed By: #### 2 [id number] #### [facility] [address] [place] [address] Eosinophils/100 WBC (Bld) 0.9 % Normal 0.0-8.[address] [facility] Comment on above: Performed By: #### 2 [id number] #### [facility] [address] [place] [address] Erythrocyte distribution width (RBC) [Ratio] 13.5 % Normal 10.9-14.[address] [facility] Comment on above: Performed By: #### 2 [id number] #### [facility] [address] [place] [address] Hematocrit (Bld) [Volume fraction] 39.2 % Normal 34.0-46.[address] [facility] Comment on above: Performed By: #### 2 [id number] #### [facility] [address] [place] [address] Hemoglobin (Bld) [Mass/Vol] 13.2 g/dL Normal 12.0-16.[address] [facility] Comment on above: Performed By: #### 2 [id number] #### [facility] [address] [place] [address] Lymphocytes (Bld) [#/Vol] 2.1 E9/L Normal 1.0-4.[address] [facility] Comment on above: Performed By: #### 2 [id number] #### [facility] [address] [place] [address] Lymphocytes/100 WBC (Bld) 14.3 % Normal 14.0-50.[address] [facility] Comment on above: Performed By: #### 2 [id number] #### [facility] [address] [place] [address] MCH (RBC) [Entitic mass] 29.0 pg Normal 27.0-34.[address] [facility] Comment on above: Performed By: #### 2 [id number] #### [facility] [address] [place] [address] MCHC (RBC) [Mass/Vol] 33.7 g/dL Normal 31.4-36.0 [facility] Comment on above: Performed By: #### 2 [id number] #### [facility] [address] [place] [address] MCV (RBC) [Entitic vol] 86.2 fL Normal 80.0-100.[address] [facility] Comment on above: Performed By: #### 2 [id number] #### [facility] [address] [place] [address] Monocytes (Bld) [#/Vol] 0.6 E9/L Normal 0.2-1.[address] [facility] Comment on above: Performed By: #### 2 [id number] #### [facility] [address] [place] [address] Neutrophils (Bld) [#/Vol] 11.8 E9/L High 2.0-7.[address] [facility] Comment on above: Performed By: #### 2 [id number] #### [facility] [address] [place] [address] Neutrophils/100 WBC (Bld) 80.6 % High 36.0-75.[address] [facility] Comment on above: Performed By: #### 2 [id number] #### [facility] [address] [place] [address] Platelet 302.0 E9/L Normal 150.0-500.[address] [facility] Comment on above: Performed By: #### 2 [id number] #### [facility] [address] [place] [address] Platelet mean volume (Bld) [Entitic vol] 9.4 fL Normal 6.4-10.[address] [facility] Comment on above: Performed By: #### 2 [id number] #### [facility] [address] [place] [address] RBC (Bld) [#/Vol] 4.6 E12/L Normal 4.3-5.[address] [facility] Comment on above: Performed By: #### 2 [id number] #### [facility] [address] [place] [address] WBC corrected for nucl RBC Auto (Bld) [#/Vol] 14.6 E9/L High 4.0-11.[address] [facility] Comment on above: Performed By: #### 2 [id number] #### [facility] [address] [place] [address] CHEMISTRYOrdered By: SYSTEM SYSTEM on 01-27-2025 Albumin [...] Chem eGFR 124 mL/min/1.73 m2 Normal >=59mL/mi n/1 .73 m2 Remisol Chem Globulin (S) [Mass/Vol] 3.2 [...] [Mass/Vol] pg/mL Low 5 - 80 pg/mL [facility] hospitalJ[facility]on 01-27-2025 Albumin [Mass/Vol] 3.9 g/dL Normal 3.3-5.[address] [facility] Comment on above: Performed By: #### 2 [id number] #### [facility] [address] [place] [address] Albumin/Globulin (S) [Mass conc ratio] 1.2 Normal 1.1-2.[address] [facility] Comment on above: Performed By: #### 2 [id number] #### [facility] [address] [place] [address] ALP [Catalytic activity/Vol] 46 Int._Unit/L Normal 21-[address] [facility] Comment on above: Performed By: #### 2 [id number] #### [facility] [address] [place] [address] ALT No additional P-5'-P [Catalytic activity/Vol] 18 Int._Unit/L Normal 6-[address] [facility] Comment on above: Performed By: #### 2 [id number] #### [facility] [address] [place] [address] Anion gap [Moles/Vol] 12 mmol/L Normal 6-16 [facility] Comment on above: Performed By: #### 2 [id number] #### [facility] [address] [place] [address] AST [Catalytic activity/Vol] 19 Int._Unit/L Normal 5-[address] [facility] Comment on above: Performed By: #### 2 [id number] #### [facility] [address] [place] [address] Bilirubin [Mass/Vol] 0.4 mg/dL Normal 0.0-1.1 [facility] Comment on above: Performed By: #### 2 [id number] #### [facility] [address] [place] [address] Calcium [Mass/Vol] 9.5 mg/dL Normal 8.9-11.[address] [facility] Comment on above: Performed By: #### 2 [id number] #### [facility] [address] [place] [address] Chloride [Moles/Vol] 104 mmol/L Normal 101-111 [facility] Comment on above: Performed By: #### 2 [id number] #### [facility] [address] [place] [address] CO2 [Moles/Vol] 22 mmol/L Normal 21-[address] [facility] Comment on above: Performed By: #### 2 [id number] #### [facility] [address] [place] [address] Creatinine [Mass/Vol] 0.5 mg/dL Normal 0.5-1.3 [facility] Comment on above: Performed By: #### 2 [id number] #### [facility] [address] [place] [address] Globulin (S) [Mass/Vol] 3.2 g/dL Normal 1.4-4.[address] [facility] Comment on above: Performed By: #### 2 [id number] #### [facility] [address] [place] [address] Glucose [Mass/Vol] 131 mg/dL Normal 55-[address] [facility] Comment on above: Performed By: #### 2 [id number] #### [facility] [address] [place] [address] Potassium [Moles/Vol] 3.4 mmol/L Low 3.5-5.3 [facility] Comment on above: Performed By: #### 2 [id number] #### [facility] [address] [place] [address] Protein [Mass/Vol] 7.1 g/dL Normal 6.0-7.[address] [facility] Comment on above: Performed By: #### 2 [id number] #### [facility] [address] [place] [address] Sodium [Moles/Vol] 135 mmol/L Normal 135-[address] [facility] Comment on above: Performed By: #### 2 [id number] #### [facility] [address] [place] [address] Urea nitrogen [Mass/Vol] 9 mg/dL Normal 5-[address] [facility] Comment on above: Performed By: #### 2 [id number] #### [facility] [address] [place] [address] Urea nitrogen/Creatinine [Mass ratio] 18 No Units Normal 10-[address] [facility] Comment on above: Performed By: #### 2 [id number] #### [facility] [address] [place] [address] HEMATOLOGYOrdered By: SYSTEM SYSTEM on 01-27-2025 Basophils/100 [...] LDHon 01-27-2025 LDH 158 Int._Unit/L Normal 93-[address] [facility] Comment on above: Performed By: #### 2 [id number] #### [facility] [address] [place] [address] Uric Acidon 01-27-2025 Urate [Mass/Vol] 4.6 mg/dL Normal 2.2-7.4 [facility] Comment on above: Performed By: #### 2 [id number] #### [facility] [address] [place] [address] Urinalysis macro (dipstick) panel (U)on 01-27-2025 Bilirubin, UA Negative Negative - 4(70) +++ mg/dL [facility] Blood, UA Negative Negative - 50 Albin/mcL [facility] Clarity, UA Clear [facility] Color, UA Yellow [facility] Glucose, UA Negative Negative - 2000(110) ++++ mg/dL [facility] Interpretation and review of laboratory results Normal [facility] Ketones, UA Negative Negative - 160(16) ++++ mg/dL [facility] Leukocytes, UA Negative Negative - 500+++ Jack/mcL [facility] Nitrite, UA Negative Negative - Positive [facility] pH, UA 6 5 - 9 [facility] Protein, UA Negative Negative - 2000(20) ++++ mg/dL [facility] Spec Grav, UA 1.005 1 - 1.03 [facility] Urobilinogen, UA 0.2 0.2 - 12 mg/dL [facility] eGFRon 01-27-2025 eGFR 124 mL/min/1.73 m2 Normal >=[address] [facility] Comment on above: Performed By: #### 1 [id number] #### [facility] [address] [place] [address] GLUCOSE TOLERANCE 3 HOURon 0 01-20-2025 GLUCOSE TOLERANCE 3 HOUR High mg/dL [facility] Comment on above: GLU FAST 92 (<95) Co l: 01/20/25 0948 GLU 1HR 205H (<180) Col: 01/20/25 1050 GLU 2HR 220H (<155) Col: 01/20/25 1150 GLU 3HR 107 (<140) Col: 01/20/25 1250 Interpretation and review of laboratory results Abnormal [facility] Glucose 1h post 50g loadon 0 12-30-2024 Glucose, 1Hr PP 163 [facility] RECURRENT VAGINITIS (HTRX)on 12-25-2024 ATOPOBIUM VAGINAE 0 [facility] ATOPOBIUM VAGINAE Not detected [facility] BVAB 2,3 (BACTERIAL VAGINOSIS ASSOCIATED BACTERIA 2, 3); MOBILUNCUS SPP 0 [facility] BVAB 2,3 (BACTERIAL VAGINOSIS ASSOCIATED BACTERIA 2, 3); MOBILUNCUS SPP Not detected [facility] KACEY ALBICANS, PARAPSILOSIS, TROPICALIS 0 [facility] KACEY ALBICANS, PARAPSILOSIS, TROPICALIS Not detected [facility] KACEY GLABRATA 0 [facility] KACEY GLABRATA Not detected [facility] KACEY KRUSEI 0 [facility] KACEY KRUSEI Not detected [facility] CHLAMYDIA TRACHOMATIS 0 [facility] CHLAMYDIA TRACHOMATIS Not detected N [facility] GARDNERELLA VAGINALIS 0 [facility] GARDNERELLA VAGINALIS Not detected N [facility] MEGASPHAERA (TYPES 1, 2) 0 [facility] MEGASPHAERA (TYPES 1, 2) Not detected [facility] MYCOPLASMA GENITALIUM 0 [facility] MYCOPLASMA GENITALIUM Not detected N [facility] NEISSERIA GONORRHOEAE 0 [facility] NEISSERIA GONORRHOEAE Not detected N [facility] TRICHOMONAS VAGINALIS 0 [facility] TRICHOMONAS VAGINALIS Not detected N [facility] Urinalysis macro (dipstick) panel (U)on 12-23-2024 Bilirubin, UA Negative Negative - 4(70) +++ mg/dL [facility] Blood, UA Negative Negative - 50 Albin/mcL [facility] Clarity, UA Clear [facility] Color, UA Yellow [facility] Glucose, UA Negative Negative - 1999(110) ++++ mg/dL [facility] Interpretation and review of laboratory results Abnormal [facility] Ketones, UA Positive Negative - 160(16) ++++ mg/dL [facility] Comment on above: 40mg/dL Leukocytes, UA Negative Negative - 500+++ Jack/mcL [facility] Nitrite, UA Negative Negative - Positive [facility] pH, UA 5.5 5 - 9 [facility] Protein, UA Negative Negative - 1999(20) ++++ mg/dL [facility] Spec Grav, UA 1.025 1 - 1.03 [facility] Urobilinogen, UA 0.2 0.2 - 12 mg/dL [facility] Urinalysis macro (dipstick) panel (U)on 11-25-2024 Bilirubin, UA Positive Negative - 4(70) +++ mg/dL [facility] Blood, UA Negative Negative - 50 Albin/mcL [facility] Clarity, UA Clear [facility] Color, UA Yellow [facility] Glucose, UA Negative Negative - 1999(110) ++++ mg/dL [facility] Interpretation and review of laboratory results Abnormal [facility] Ketones, UA Positive Negative - 160(16) ++++ mg/dL [facility] Leukocytes, UA Negative Negative - 500+++ Jack/mcL [facility] Nitrite, UA Negative Negative - Positive [facility] pH, UA 6 5 - 9 [facility] Protein, UA Positive Negative - 1999(20) ++++ mg/dL [facility] Spec Grav, UA 1.025 1 - 1.03 [facility] Urobilinogen, UA 0.2 0.2 - 12 mg/dL [facility] HIV 1&2 AB/AG Screen (P24 AG )on 11-11-2024 HIV 1&2 AB/AG Non-Reactive [facility] Hepatitis C(HCV) Ab w/ Refle x to PCRon 11-11-2024 HCV Ab Ql (S) Non-Reactive [facility] No Panel Informationon 11-11 [facility] Rubella IGG immune statuson 11-11-2024 Rubella immune IgG 1.78 [facility] ALL CBC WITH AUTO DIFFon BASOPHILS ABSOLUTE AUTO 0.1 [facility] Basophils/100 WBC (Bld) 0.5 % 0.2 - 2.0 % [facility] Eosinophils/100 WBC (Bld) 1 % 0.9 - 7.0 % [facility] Erythrocyte distribution width (RBC) [Ratio] 12.4 % 11.0 - 15.0 % [facility] IMMATURE GRANULOCYTES ABS AUTO 0.06 High [facility] Immature granulocytes/100 WBC (Bld) 0.5 % 0.0 - 0.5 % [facility] Interpretation and review of laboratory results Abnormal [facility] LYMPHOCYTES ABSOLUTE AUTO 3 [facility] Lymphocytes/100 WBC (Bld) 24.2 % 20.5 - 60.0 % [facility] MCH (RBC) [Entitic mass] 29.2 pg 26.7 - 34.0 pg [facility] MCHC (RBC) [Mass/Vol] 33.5 g/dL 29.9 - 35.2 g/dL [facility] MCV (RBC) [Entitic vol] 87.1 fL 81.0 - 99.0 fL [facility] MONOCYTES ABSOLUTE AUTO 0.8 [facility] Monocytes/100 WBC (Bld) 6.4 % 1.7 - 12.0 % [facility] NEUTROPHILS ABSOLUTE AUTO 8.5 High [facility] Neutrophils/100 WBC (Bld) 67.4 % 43.0 - 75.0 % [facility] Platelet mean volume (Bld) [Entitic vol] 10.1 fL 9.5 - 13.5 fL [facility] TB EO # 0.1 [facility] TB PLT 357 [facility] RBC 4.8 [facility] WBC 12.6 High [facility] CBC without diffOrdered By: Lindsey Ramos on 11-08-2024 Platelets (Bld) [#/Vol] 357 10*3/uL [facility] Rbc Mcv (Fl) By Automated Count 87.1 [facility] Drug Screen, Urineon 025 Amphetamine/Methamphet amine Negative [facility] Barbiturates Negative [facility] Benzodiazepines Negative [facility] Cocaine Metabolite Negative [facility] Opiates Negative [facility] Oxycodone Negative [facility] Phencyclidine Negative [facility] Thc Marijuana, Urine Negative [facility] Hemoglobin A1con 11-08-2024 HbA1c (Bld) [Mass fraction] 5.8 % 4.0 - 6.0 % [facility] Hepatitis B surface antigeno n 11-08-2024 Hepatitis B Surface Antigen Negative [facility] Laboratory - Hematology and Cell countson 11-08-2024 Hematocrit (Bld) [Volume fraction] 41.8 % [facility] Hemoglobin (Bld) [Mass/Vol] 14 g/dL [facility] No Panel Informationon 11-08 [facility] Type and screenon 11-08-2024 Abo/Rh(D) Positive [facility] Rh_Intep Negative [facility] HCG ( test) Ql (U)o n 10-24-2024 Interpretation and review of laboratory results Abnormal [facility] Preg Test, Ur Positive Negative [facility] US OB TRANSVAGINALon 025 US OB TRANSVAGINAL [...] x 2.5 cm (6 weeks, 5 days). Cassandra rump length is 0.9 cm (7 weeks, [...] UA Negative Negative - 4(70) +++ mg/dL [facility] Blood, UA Negative Negative - 50 Albin/mcL [facility] Clarity, UA Clear [facility] Color, UA Yellow [facility] Glucose, UA Negative Negative - 1999(110) ++++ mg/dL [facility] Interpretation and review of laboratory results Normal [facility] Ketones, UA Negative Negative - 160(16) ++++ mg/dL [facility] Leukocytes, UA Negative Negative - 500+++ Jack/mcL [facility] Nitrite, UA Negative Negative - Positive [facility] pH, UA 6 5 - 9 [facility] Protein, UA Negative Negative - 2000(20) ++++ mg/dL [facility] Spec Grav, UA 1.015 1 - 1.03 [facility] Urobilinogen, UA 0.2 0.2 - 12 mg/dL [facility] IGP,APTIMA HPV,AGE GDLNon AGE GDLN ACOG TESTING Note . [facility] Comment on above: TESTS RESULT FLAG UN ITS REF RANGE LAB Clinician Provided Cytology Information Source.............Cervix No. of containers..01 ThinPrep Vial Age Algo ACOG Yumiko... FLAG LEGEND: L-Low Normal,H-High Normal,LL-Alert Low,HH-Alert High <-Panic Low,>-Panic High,A-Abnormal,AA-Critical Abnormal Performed at: 01 = [address] [place] [address] Nina Julien MD, HPV APTIMA Negative Negative [facility] Comment on above: This nucleic acid am plification test detects fourteen high- risk HPV types (16,18,31,33,35,39,45,51,52,56,58,59,66,68) without differentiation. Performed at: =[facility] [address] [id number] Commercial Sales Specialist: Nina Julien MD, Phone: [phone] Performed at: WB - [facility] [address], [place] [id number] Commercial Sales Specialist: Nina Julien MD, Phone: [phone] IGP, NATALIA HPV, RFX 16/18,45 Note . [facility] Comment on above: TESTS RESULT FLAG UN ITS REF RANGE LAB DIAGNOSIS: 02 NEGATIVE FOR INTRAEPITHELIAL LESION OR MALIGNANCY. THIS SPECIMEN WAS RESCREENED PART OF OUR WORK STATION SUPPORT SPECIALIST PROGRAM. Specimen adequacy: 02 Satisfactory for evaluation. Endocervical and/or squamous metaplastic cells (endocervical component) are present. Performed by: Fazal Collins, Metal Box Maker (ASCP) QC reviewed by: Fazal Coyne, Metal Box Maker (ASCP) . 02 Note: Note 02 The [...] <-Panic Low,>-Panic High,A-Abnormal,AA-Critical Abnormal Performed at: [address] [facility] [address], [place] [address] Nina Julien MD, SWAB-SPATULA [facility] BLOOD BANKOrdered By: Jacob guzman on 05-12-2022 ABO/Rh Interp Positive Invalid Interpretation Code FT [facility] Subsection ABSC Gel Interp Negative (05/12/22 5:12 AM) Normal [facility] Subsection SEROLOGYOrdered By: Riya kenney on 05-12-2022 HCG.beta subunit (U) [Moles/Vol] Negative Normal [facility] URINALYSISOrdered By: Riya Quarles on [...] AM) Normal Negative [facility] UA Auto SS [place].plasma/[place] .RBC (Bld) [Mass ratio] 0-3 /HPF Normal 0-3/HPF [...] [facility] UA Auto SS Urobilinogen Qn (U) 0.5062453 {Lazaro'U}/dL Normal 0.0 - 1.0 EU/dL [facility] [...] AM) Normal Negative [facility] UA Auto SS [place].plasma/[place] .RBC (Bld) [Mass ratio] 0-3 /HPF Normal 0-3/HPF [...] [facility] UA Auto SS Urobilinogen Qn (U) 0.1954427 {Lazaro'U}/dL Normal 0.0 - 1.0 EU/dL [facility] [facility] UA Auto SS WBC Auto Ql (U) Negative (05/12/22 9:58 AM) Normal Negative FT UA Auto SS WBC LM.HPF (Urine sed) [#/Area] 0-5 /HPF Normal 0-5/HPF [facility] [place] [facility] UA Auto SS BLOOD BANKOrdered By: Hillary Coppola on 05-11-2022 ABO/Rh Retype Interp Positive Invalid Interpretation Code [facility] BB Subsection CHEMISTRYOrdered By: [...] MDRD (S/P/Bld) [Vol rate/Area] mL/min/1.73 m2 Normal >=59mL/min/1 .73 m2 [facility] S GFR/1.73 sq M.predicted among non-blacks MDRD (S/P/Bld) [Vol rate/Area] mL/min/1.73 m2 Normal >=59mL/min/1 .73 m2 [facility] S Globulin (S) [Mass/Vol] 2.8 g/dL Normal 1.4 - 4.0 gm/dL [facility] Remisol Glucose [Mass/Vol] 125 mg/dL Normal 55 - 199 mg/dL [facility] Remisol Lipase [Catalytic activity/Vol] 39 U/L Normal [...] Normal 0.0 - 8.0 % [facility] HemeAutoSS Eosinophils/Leukocytes Auto (Bld) [Pure # fraction] 0.2 E9/L Normal 0.0 - 0.5 E9/L [facility] HemeAutoSS Lymphocytes/100 WBC (Bld) 16.5 % Normal 14.0 - 50.0 % [facility] HemeAutoSS Lymphocytes/Leukocytes Auto (Bld) [Pure # fraction] 3.2 E9/L Normal 1.0 - 4.0 E9/L [facility] HemeAutoSS Monocytes/100 WBC (Bld) 4.7 % Normal 4.0 - 14.0 % [facility] HemeAutoSS Monocytes/Leukocytes Auto (Bld) [Pure # fraction] 0.9 E9/L Normal 0.2 - 1.0 E9/L [facility] HemeAutoSS Neutrophils/100 WBC (Bld) 77.2 % High 36.0 - 75.0 % [facility] HemeAutoSS Neutrophils/Leukocytes Auto (Bld) [Pure # fraction] 14.9 E9/L [...] Summaryon 05-26-2020 Coding Summary CODING DATE: 05/26/2020 [facility] STATUS: Home PAYOR: Commercial Insurance ADMIT DX: [...] Essie Beyer Date Saved: 05/26/2020 10:38 am [facility] ED Note-Nursingon 05-26-2020 ED Note-Nursing Pt calls and gives verbal permission to copy lab result and mail to her home. 2 identifiers given. [facility] Consent Formson 05-25-2020 Consent Forms [id number] [id number] [facility] .QC Respiratory Panel 2.1 (B ioFire)on 05-23-2020 Internal Control-Resp Panel 2.1(BioFire) Pass [facility] Comment on above: Order Comment: Order ed by Discern. [[email or web address]] Performed By: #### 6 [id number] #### [facility] (DEFAULT) [address] [place] [address] ED Clinical Summaryon 2019 ED Clinical Summary [facility] ? Urgent Care [address] [place] [address] Clinical Summary PERSON INFORMATION Name: JULISSA WEEMS Age: 29 Years Sex: FEMALE : 1990 MRN: Acct#: Visit Reason: FEVER, SOB, COUGH Arrival: 05/23/2020 13:31:24 Discharge: 05/23/2020 14:23:00 LOS: 000 00:52 Check In: 05/23/2020 13:31:24 Checkout: 05/23/2020 14:23:00 Address: [address] [place] [address] PCP: Provider, None PROVIDER INFORMATION Provider Role Assigned Unassigned Heath Argeuta PA-C ED PA 05/23/2020 13:46:58 Jorge LOPEZ, [...] EDUCATION INFORMATION Instructions: Upper Respiratory Infection, Adult, Yblu-qi-Kfyh Follow-Up: With: Address: When: [facility], [address] [place] [address] [phone] Business (1) Comments: Please follow-up with your primary care doctor or Dr. Esquivel medical doctor inventory control manager, their office schedule an appointment to [...] of instructions given Comment: Normal [facility] ED Patient Summaryon 020 ED Patient Summary [facility] ? Urgent Care [address] [place], [place] [id number] PATIENT DISCHARGE INSTRUCTIONS Patient Information Name: JULISSA WEEMS Age: 29 Years Date of : 1990 Reason For Visit: FEVER, SOB, COUGH Arrival Time: 05/23/2020 13:31:24 Primary Care Physician: Provider, None Attending Physician: Heath Argueta PA-C Comment: Patient Education With: Address: When: [facility], [address] [place] [address] [phone] Business (1) Comments: Please follow-up with your primary care doctor or Dr. Esquivel medical doctor inventory control manager, their office schedule an appointment to [...] other clear broths. General instructions ? Take yyog-xly-nqrsjps and prescription medicines only as told by [...] not have soap and water, use hand manager investment banking. ? Avoid touching your mouth, face, eyes, [...] get better within 7?10 days. ? Take lpyx-zap-swaqtdp and prescription medicines only as told by your doctor. This information is not intended to replace advice given to you by your health care provider. Make sure you discuss any questions you have with your health care provider. Document Released: 03/27/2009 Document Revised: 06/01/2018 Document Reviewed: 06/01/2018 [employer] Interactive Patient Education ? 2019 [employer] Medication Information: The exam and treatment you received today in the [facility] Department were for an urgent problem and are not intended as complete care. It is important for you to follow up with a doctor, nurse practitioner, or physician?s wellness assistant for ongoing care. If your symptoms [...] can reach you if necessary. [facility] has provided you with a complete list of medications post discharge. Please inform your competitive shopper/provider of your visit and for further instruction on these medications. Any specific questions regarding your chronic medications and dosages should be discussed with your primary care physician(s) and/or pharmacist. New Medications [id number], [address] [place], [place] [id number], [phone] homatropine-HYDROcod one (homatropine-hydroco done 1.5 mg-5 mg/5 [...] for Disease Control and Prevention June 2014 [facility] Patient Handouton 05-23-2020 Patient Handout Patient [...] other clear broths. General instructions ? Take udda-hfy-mhfgywu and prescription medicines only as told by [...] not have soap and water, use hand manager investment banking. ? Avoid touching your mouth, face, eyes, [...] get better within 7?10 days. ? Take mhef-lqv-qkbcfbv and prescription medicines only as told by your doctor. This information is not intended to replace advice given to you by your health care provider. Make sure you discuss any questions you have with your health care provider. Document Released: 03/27/2009 Document Revised: 06/01/2018 Document Reviewed: 06/01/2018 [employer] Interactive Patient Education ? 2019 [employer] Normal [facility] Respiratory Panel 2.1 (BioFi re)on 05-23-2020 Adenovirus -BioFire Not Detected Normal Not Detected [facility] Comment on above: Performed By: #### 6 [id number], [id number] #### [facility] (DEFAULT) [address] [place] [address] 95198 Bordetella parapertussis -BioFire Not Detected Normal Not Detected [facility] Comment on above: Performed By: #### 6 [id number], [id number] #### [facility] (DEFAULT) [address] [place] [address] 83340 Bordetella pertussis -BioFire Not Detected Normal Not Detected [facility] Comment on above: Performed By: #### 6 [id number], [id number] #### [facility] (DEFAULT) [address] [place] [address] 64213 Chlamydia pneumoniae -BioFire Not Detected Normal Not Detected [facility] Comment on above: Performed By: #### 6 [id number], [id number] #### [facility] (DEFAULT) [address] [place] [address] 38495 Coronavirus 229E (Not COVID-19) -BioFire Not Detected Normal Not Detected [facility] Comment on above: Performed By: #### 6 [id number], [id number] #### [facility] (DEFAULT) [address] [place] [address] 80300 Coronavirus HKU1 (Not COVID-19) -BioFire Not Detected Normal Not Detected [facility] Comment on above: Performed By: #### 6 [id number], [id number] #### [facility] (DEFAULT) [address] [place] [address] 02331 Coronavirus NL63 (Not COVID-19) -BioFire Not Detected Normal Not Detected [facility] Comment on above: Performed By: #### 6 [id number], [id number] #### [facility] (DEFAULT) [address] [place] [address] 24783 Coronavirus OC43 (Not COVID-19) -BioFire Not Detected Normal Not Detected [facility] Comment on above: Performed By: #### 6 [id number], [id number] #### [facility] (DEFAULT) [address] [place] [address] 65493 Human Metapneumovirus -BioFire Not Detected Normal Not Detected [facility] Comment on above: Performed By: #### 6 [id number], [id number] #### [facility] (DEFAULT) [address] [place] [address] 08663 Human Rhinovirus/Enterovirus -BioFire Detected Abnormal Not Detected [facility] Comment on above: Performed By: #### 6 [id number], [id number] #### [facility] (DEFAULT) [address] [place] [address] 75659 Influenza A (no subtype) -BioFire Not Detected Normal Not Detected [facility] Comment on above: Performed By: #### 6 [id number], [id number] #### [facility] (DEFAULT) [address] [place] [address] 38065 Influenza A -BioFire Not Detected Normal Not Detected [facility] Comment on above: Performed By: #### 6 [id number], [id number] #### [facility] (DEFAULT) [address] [place] [address] 77686 Influenza A H1 -BioFire Not Detected Normal Not Detected [facility] Comment on above: Performed By: #### 6 [id number], [id number] #### [facility] (DEFAULT) [address] [place] [address] 59405 Influenza A H1-2009 -BioFire Not Detected Normal Not Detected [facility] Comment on above: Performed By: #### 6 [id number], [id number] #### [facility] (DEFAULT) [address] [place] [address] 61472 Influenza A H3 -BioFire Not Detected Normal Not Detected [facility] Comment on above: Performed By: #### 6 [id number], [id number] #### [facility] (DEFAULT) [address] [place] [address] 19715 Influenza B -BioFire Not Detected Normal Not Detected [facility] Comment on above: Performed By: #### 6 [id number], [id number] #### [facility] (DEFAULT) [address] [place] [address] 17840 Mycoplasma pneumoniae -BioFire Not Detected Normal Not Detected [facility] Comment on above: Performed By: #### 6 [id number], [id number] #### [facility] (DEFAULT) [address] [place] [address] 28856 Parainfluenza Virus 1 -BioFire Not Detected Normal Not Detected [facility] Comment on above: Performed By: #### 6 [id number], [id number] #### [facility] (DEFAULT) [address] [place] [address] 86465 Parainfluenza Virus 2 -BioFire Not Detected Normal Not Detected [facility] Comment on above: Performed By: #### 6 [id number], [id number] #### [facility] (DEFAULT) [address] [place] [address] 46553 Parainfluenza Virus 3 -BioFire Not Detected Normal Not Detected [facility] Comment on above: Performed By: #### 6 [id number], [id number] #### [facility] (DEFAULT) [address] [place] [address] 29019 Parainfluenza Virus 4 -BioFire Not Detected Normal Not Detected [facility] Comment on above: Performed By: #### 6 [id number], [id number] #### [facility] (DEFAULT) [address] [place] [address] Respiratory Syncytial Virus -BioFire Not Detected Normal Not Detected [facility] Comment on above: Performed By: #### 6 [id number], [id number] #### [facility] (DEFAULT) [address] [place] [address] 82937 SARS-CoV-2 (COVID-19) -BioFire Not Detected Normal Not Detected [facility] Comment on above: Performed By: #### 6 [id number], [id number] #### [facility] (DEFAULT) [address] [place] [address]163 Ur[facility] 020 Urgent Care Record [facility] ? Urgent Care [address] [place] [address] PATIENT DISCHARGE INSTRUCTIONS Patient Information Name: JULISSA [...] any legal documents With: Address: When: [facility], [address] [place], [place] [id number] Business (1) Comments: Please follow-up with your primary care doctor or Dr. Esquivel, medical doctor inventory control manager, their office schedule an appointment to be seen in 3 to 5 days for continued care, take only Tylenol for headaches or fevers, drink plenty of water for hydration, notified with your COVID-19 results, and return back to the urgent care center for any worsening symptoms, concerns, or complications. Medication Information: The exam and treatment you received today in the [facility] were for an urgent problem and are not intended as complete care. It is important for you to follow up with a doctor, nurse practitioner, or physician?s wellness assistant for ongoing care. If your symptoms [...] can reach you if necessary. [facility] has provided you with a complete list of medications post discharge. Please inform your competitive shopper/provider of your visit and for further instruction on these medications. Any specific questions regarding your chronic medications and dosages should be discussed with your primary care physician(s) and/or pharmacist. New Medications [id number], [address] [place], [place] [id number], [phone] homatropine-HYDROcod one (homatropine-hydroco done 1.5 mg-5 mg/5 [...] other clear broths. General instructions ? Take iuge-gkw-giqlfsz and prescription medicines only as told by [...] not have soap and water, use hand manager investment banking. ? Avoid touching your mouth, face, eyes, [...] get better within 7?10 days. ? Take bpuh-hwp-oqlcxkh and prescription medicines only as told by your doctor. This information is not intended to replace advice given to you by your health care provider. Make sure you discuss any questions you have with your health care provider. Document Released: 03/27/2009 Document Revised: 06/01/2018 Document Reviewed: 06/01/2018 [employer] Patient Education ? 2019 [employer] Viruses or Bacteria What?s got you [...] Disease Control and Prevention June 2014 Normal [facility] Vital Signs Date Time Vital Sign Value Performing Clinician Facility 04-30-2025 14:13-0400 Body mass index (BMI) [Ratio] 34.27 kg/m2 Lindsey GONZALEZ Work Phone: [facility] 04-30-2025 14:13040 Body weight 99.25 kg Lindsey GONZALEZ Work Phone: [facility] 04-30-2025 14:13-0400 Diastolic blood pressure 90 mm[Hg] Lindsey GONZALEZ Work Phone: [facility] 04-30-2025 14:13-0400 Systolic blood pressure 146 mm[Hg] Lindsey GONZALEZ Work Phone: [facility] 04-21-2025 15:39-0400 Body mass index (BMI) [Ratio] 33.83 kg/m2 Mik Elmo DO Work Phone: [facility] 04-21-2025 15:39-0400 Body weight 97.98 kg Mik Elmo DO Work Phone: [facility] 04-21-2025 15:39-0400 Diastolic blood pressure 80 mm[Hg] Mik Elmo DO Work Phone: [facility] 04-21-2025 15:39-0400 Systolic blood pressure 124 mm[Hg] Mik Elmo DO Work Phone: [facility] 04-14-2025 09:03-0400 Body mass index (BMI) [Ratio] 33.8 kg/m2 Mik Elmo DO Work Phone: [facility] 04-14-2025 09:03-0400 Body weight 97.89 kg Mik Elmo DO Work Phone: [facility] 04-14-2025 09:03-0400 Diastolic blood pressure 82 mm[Hg] Mik Elmo DO Work Phone: [facility] 04-14-2025 09:03-0400 Systolic blood pressure 126 mm[Hg] Mik Elom DO Work Phone: [facility] 04-08-2025 11:38-0400 Body mass index (BMI) [Ratio] 33.36 kg/m2 Mik Elmo DO Work Phone: [facility] 04-08-2025 11:38-0400 Body weight 96.62 kg Mik Elmo DO Work Phone: [facility] 04-08-2025 11:38-0400 Diastolic blood pressure 78 mm[Hg] Mik Elmo DO Work Phone: [facility] 04-08-2025 11:38-0400 Systolic blood pressure 122 mm[Hg] Mik Elmo DO Work Phone: [facility] 03-24-2025 11:35-0400 Body mass index (BMI) [Ratio] 33.52 kg/m2 Mik Elmo DO Work Phone: [facility] 03-24-2025 11:35-0400 Body weight 97.07 kg Mik Elmo DO Work Phone: [facility] 03-24-2025 11:35-0400 Diastolic blood pressure 80 mm[Hg] Mik Elmo DO Work Phone: [facility] 03-24-2025 11:35-0400 Systolic blood pressure 130 mm[Hg] Mik Elmo DO Work Phone: [facility] 02-24-2025 10:50-0400 Body mass index (BMI) [Ratio] 33.05 kg/m2 Mik Elmo DO Work Phone: [facility] 02-24-2025 10:50-0400 Body weight 95.71 kg Mik Elmo DO Work Phone: [facility] 02-24-2025 10:50-0400 Diastolic blood pressure 74 mm[Hg] Mik Elmo DO Work Phone: [facility] 02-24-2025 10:50-0400 Systolic blood pressure 122 mm[Hg] Mik Elmo DO Work Phone: [facility] 01-27-2025 08:51-0400 Body mass index (BMI) [Ratio] 33.11 kg/m2 Mik Elmo DO Work Phone: [facility] 01-27-2025 08:51-0400 Body weight 95.89 kg Mik Elmo DO Work Phone: [facility] 01-27-2025 08:51-0400 Diastolic blood pressure 80 mm[Hg] Mik Elmo DO Work Phone: [facility] 01-27-2025 08:51-0400 Systolic blood pressure 136 mm[Hg] Mik Elmo DO Work Phone: [facility] 01-21-2025 09:05-0400 Body height 171.5 cm Bruce Perez MD Work Phone: [facility] 01-21-2025 09:05-0400 Body mass index (BMI) [Ratio] 33.08 kg/m2 Bruce Perez MD Work Phone: [facility] 01-21-2025 09:05-0400 Body weight 97.25 kg Bruce Perez MD Work Phone: [facility] 01-21-2025 09:05-0400 Diastolic blood pressure 74 mm[Hg] Bruce Perez MD Work Phone: [facility] 01-21-2025 09:05-0400 Heart rate 94 /min Bruce Perez MD Work Phone: [facility] 01-21-2025 09:05-0400 Systolic blood pressure 151 mm[Hg] Bruce Perez MD Work Phone: [facility] 12-23-2024 10:42-0500 Body mass index (BMI) [Ratio] 33.17 kg/m2 Lindsey GONZALEZ Work Phone: [facility] 12-23-2024 10:42-0500 Body weight 96.07 kg Lindsey GONZALEZ Work Phone: [facility] 12-23-2024 10:42-0500 Diastolic blood pressure 84 mm[Hg] Lindsey GONZALEZ Work Phone: [facility] 12-23-2024 10:42-0500 Systolic blood pressure 142 mm[Hg] Lindsey GONZALEZ Work Phone: [facility] 11-25-2024 09:59-0500 Body mass index (BMI) [Ratio] 32.28 kg/m2 Mik Elmo DO Work Phone: [facility] 11-25-2024 09:59-0500 Body weight 93.5 kg Mik Elmo DO Work Phone: [facility] 11-25-2024 09:59-0500 Diastolic blood pressure 84 mm[Hg] Mik Elmo DO Work Phone: [facility] 11-25-2024 09:59-0500 Systolic blood pressure 120 mm[Hg] Mik Elmo DO Work Phone: [facility] 10-24-2024 14:22-0500 Body mass index (BMI) [Ratio] 31.64 kg/m2 [facility] Nurse [facility] 10-24-2024 14:22-0500 Body weight 91.63 kg [facility] Nurse [facility] 10-24-2024 14:22-0500 Diastolic blood pressure 74 mm[Hg] [facility] Nurse [facility] 10-24-2024 14:22-0500 Systolic blood pressure 120 mm[Hg] [facility] Nurse [facility] 09-16-2024 15:18-0500 Body mass index (BMI) [Ratio] 32.08 kg/m2 Mik Elmo DO Work Phone: [facility] 09-16-2024 15:18-0500 Body weight 92.9 kg Mik Elmo DO Work Phone: [facility] 09-16-2024 15:18-0500 Diastolic blood pressure 68 mm[Hg] Mik Elmo DO Work Phone: [facility] 09-16-2024 15:18-0500 Systolic blood pressure 114 mm[Hg] Mik Elmo DO Work Phone: [facility] 05-12-2022 15:32-0400 Blood Pressure Location [facility] 05-12-2022 15:32-0400 Diastolic blood pressure 70 mm[Hg] Steffanien [facility] 05-12-2022 15:32-0400 Heart rate 101 /min [facility] 05-12-2022 15:32-0400 Mean blood pressure 84 mm[Hg] [facility] 05-12-2022 15:32-0400 Respiratory rate 24 /min [facility] 05-12-2022 15:32-0400 SaO2% (BldA) [Mass fraction] 96 % [facility] 05-12-2022 15:32-0400 Systolic blood pressure 114 mm[Hg] [facility] 05-12-2022 14:20-0400 Body temperature 98.06 [degF] [facility] 05-12-2022 14:20-0400 Diastolic blood pressure 69 mm[Hg] [facility] 05-12-2022 14:20-0400 Heart rate 73 /min [facility] 05-12-2022 14:20-0400 Respiratory rate 16 /min [facility] 05-12-2022 14:20-0400 SaO2% (BldA) [Mass fraction] 97 % [facility] 05-12-2022 14:20-0400 Systolic blood pressure 108 mm[Hg] [facility] 05-12-2022 13:14-0400 Body temperature 98.24 [degF] [facility] 05-12-2022 13:14-0400 Diastolic blood pressure 82 mm[Hg] [facility] 05-12-2022 13:14-0400 Heart rate 87 /min [facility] 05-12-2022 13:14-0400 Mean blood pressure 98 mm[Hg] [facility] 05-12-2022 13:14-0400 SaO2% (BldA) [Mass fraction] 95 % [facility] 05-12-2022 13:14-0400 Systolic blood pressure 129 mm[Hg] [facility] 05-12-2022 13:05-0400 Body temperature 97.88 [degF] [facility] 05-12-2022 13:05-0400 Mean blood pressure 96 mm[Hg] [facility] 05-12-2022 13:05-0400 Respiratory rate 14 /min [facility] 05-12-2022 13:00-0400 Respiratory rate 13 /min [facility] 05-12-2022 12:45-0400 Mean blood pressure 95 mm[Hg] [facility] 05-12-2022 11:56-0400 Body temperature 98.06 [degF] [facility] 05-12-2022 11:50-0400 Respiratory rate 16 /min [facility] 05-12-2022 11:45-0400 Respiratory rate 16 /min [facility] 05-12-2022 09:30-0400 Blood Pressure Location [facility] 05-12-2022 09:30-0400 Mean blood pressure 93 mm[Hg] [facility] 05-12-2022 09:28-0400 Blood Pressure Location [facility] 05-12-2022 09:28-0400 Body temperature 97.7 [degF] [facility] 05-12-2022 09:00-0400 Hourly Rounding [facility] Dok[facility] 05-12-2022 09:00-0400 Promise to Return Kaylinn Dokken [facility] 05-12-2022 08:00-0400 Hourly Rounding [facility]inn Dok[facility] 05-12-2022 08:00-0400 Promise to Return [facility] Dok[facility] 05-11-2022 22:41-0400 Heart rate 112 /min [facility] 03-08-2022 10:17-0400 Blood Pressure Location Helene HAMILTON [facility] 03-08-2022 10:17-0400 Body temperature 99.5 [degF] Helene HAMILTON [facility] 03-08-2022 10:17-0400 Diastolic blood pressure 84 mm[Hg] Helene HAMILTON [facility] 03-08-2022 10:17-0400 Heart rate 84 /min Helene HAMILTON [facility] 03-08-2022 10:17-0400 SaO2% (BldA) [Mass fraction] 97 % Helene HAMILTON [facility] 03-08-2022 10:17-0400 Systolic blood pressure 118 mm[Hg] Helene HAMILTON [facility] Encounters Encounter Date Encounter Type Care Provider Facility Start: 05-05-2025 End: 05-05-2025 Bamboo flowsheet Mik Elmo DO Work Phone: [facility] Start: 05-05-2025 End: 05-05-2025 Bamboo flowsheet Mik Elmo DO Work Phone: [facility] Start: 04-30-2025 End: 04-30-2025 Clinisync Result Encounter Mik Elmo DO Work Phone: [facility] External Department Unsolicited Start: 04-30-2025 End: 04-30-2025 Clinisync Result Encounter Mik Elmo DO Work Phone: [facility] External [facility] Unsolicited Start: 04-30-2025 End: 04-30-2025 flow sheet Lindsey GONZALEZ Work Phone: [facility] Comment on above: 33 weeks gestation o f ([facility] Third trimester [facility] High blood pressure affecting in third trimester, antepartum ([facility]); induced hypertension, antepartum ([facility] Start: 04-30-2025 End: 04-30-2025 ambulatory LINDSEY COBB Not Available Start: 04-23-2025 End: 04-23-2025 Clinisync Result Encounter Mik Elmo DO Work Phone: [facility] External [facility] Unsolicited Start: 04-23-2025 End: 04-23-2025 Clinisync Result Encounter Mik Elmo DO Work Phone: [facility] Unsolicited Start: 04-21-2025 End: 04-21-2025 ambulatory MIK ELMO Not Available Start: 04-21-2025 End: 04-21-2025 flow sheet Mik Elmo DO Work Phone: [facility] Comment on above: Third trimester preg lillian ([facility]); 32 weeks gestation of ([facility]); Insulin controlled gestational diabetes mellitus (GDM) in third trimester ([facility]); Multigravida of advanced maternal age in third trimester ([facility]); Hypertension, unspecified type Start: 04-21-2025 End: 04-21-2025 [...] Comment on above: Third trimester preg lillian ([facility]); 31 weeks gestation of ([facility]) Start: 04-14-2025 End: 04-14-2025 ambulatory MIK ELMO Not Available Start: 04-08-2025 End: 04-08-2025 Bamboo flowsheet Mik Elmo DO Work Phone: [facility] Start: 04-08-2025 End: 04-08-2025 Bamboo flowsheet Mik Elmo DO Work Phone: [facility] Start: 04-08-2025 End: 04-08-2025 flow sheet Mik Elmo DO Work Phone: [facility] Comment on above: Third trimester preg lillian ([facility]); 30 weeks gestation of ([facility]); Gestational diabetes mellitus (GDM), antepartum, gestational diabetes method of control unspecified ([facility]) Start: 04-08-2025 End: 04-08-2025 ambulatory MIK ELMO Not Available Start: 04-01-2025 End: 04-01-2025 Orders Only Michelle Ashraf RN [facility] at [facility] Comment on above: Chronic hypertension affecting (Primary Dx); Gestational diabetes mellitus (GDM), antepartum, gestational diabetes method of control unspecified Start: 03-31-2025 End: 03-31-2025 ambulatory MIK R [facility] Start: 03-24-2025 End: 03-24-2025 Bamboo flowsheet Mik [...] Only Oralia Elliott CMA [facility] at [facility] Comment on above: Chronic hypertension affecting (Primary Dx); Advanced maternal age in multigravida, second trimester; Gestational diabetes mellitus (GDM), antepartum, gestational diabetes method of control unspecified Start: 03-03-2025 End: 03-03-2025 ambulatory MIK R ELMO [facility] Start: 02-24-2025 End: 02-24-2025 Bamboo flowsheet [...] 02-17-2025 End: 02-17-2025 ambulatory Mik R ELMO Facility:[facility] Start: 02-17-2025 End: 02-17-2025 Patient encounter procedure Mik R ELMO [facility] Start: 02-04-2025 End: 02-04-2025 Telephone encounter Yamila Rayo LPN [facility] at [facility] Start: 02-04-2025 End: 02-04-2025 ambulatory Mik R ELMO Facility:[facility] [place] [facility] Start: 02-04-2025 End: 02-04-2025 Lab Drop off Mik R ELMO [facility] Start: 01-27-2025 End: 01-27-2025 Bamboo flowsheet Mik Elmo DO Work Phone: [facility] Start: 01-27-2025 End: 01-27-2025 Bamboo flowsheet Mik Elmo DO Work Phone: [facility] Start: 01-27-2025 End: 01-27-2025 ambulatory Mik R ELMO Facility:[facility] [place] [facility] Start: 01-27-2025 End: 01-27-2025 Patient encounter procedure Mik R ELMO [facility] Start: 01-27-2025 End: 01-27-2025 flow sheet Mik Elmo DO Work Phone: [facility] Comment on above: 20 weeks [...] Telephone encounter Jessy Neil [facility] at [facility] Comment on above: Chronic hypertension affecting (Primary Dx); Advanced maternal age in multigravida, second trimester; Prediabetes in mother during ; Gestational diabetes mellitus (GDM), antepartum, gestational diabetes method of control unspecified Start: 01-21-2025 End: 01-21-2025 Office consultation new/estab patient 80 min Bruce Perez MD Work Phone: [facility] at [facility] Comment on above: Advanced maternal ag e in multigravida, second trimester (Primary Dx); Chronic hypertension affecting ; Prediabetes in mother during ; Gestational diabetes mellitus (GDM), antepartum, gestational diabetes method of control unspecified; 19 weeks gestation of Start: 01-21-2025 End: 01-21-2025 ambulatory MIK R ELMO [facility] Start: 01-20-2025 End: 01-20-2025 Clinisync Result Encounter Mik Elmo DO Work Phone: [facility] Unsolicited Start: 01-20-2025 End: 01-20-2025 Clinisync Result Encounter Mik Jaino DO Work Phone: [facility] Unsolicited Start: 01-17-2025 End: 01-17-2025 Chart abstracting Bruce Perez MD Work Phone: [facility] Start: 01-17-2025 End: 01-17-2025 Telephone encounter Lindesy Ramos LPN [facility] Start: 12-30-2024 End: 12-30-2024 ambulatory MIK [...] Perez MD Work Phone: [facility] Start: 11-25-2024 End: 11-25-2024 Bamboo flowsheet [...] End: 10-03-2022 Patient encounter procedure DONA DELAR[facility] Start: 10-03-2022 End: 10-03-2022 Manual pelvic examination DONA DELAROSA [facility] Start: 07-12-2022 End: 07-12-2022 Patient encounter procedure Helene HAMILTON [facility] Start: 06-01-2022 End: 08-30-2022 Patient encounter procedure Helene HAMILTON [facility] Start: 05-11-2022 End: 05-12-2022 Emergency department patient visit William Yoder [facility] Start: 03-08-2022 End: 03-08-2022 Patient encounter procedure Helene HAMILTON [facility] Procedures Date Procedure Procedure Detail Performing Clinician Start: 04-30-2025 Urnls dip stick/tabl et rgnt non-auto w/o micrscp Lindsey GONZALEZ Work Phone: Start: 04-30-2025 US OB BPP W NON-STRESS Mik Elmo DO Work Phone: Start: 04-30-2025 US OB GROWTH Mik Fazi o DO Work Phone: Start: 04-23-2025 US OB BPP W NON-STRESS [...] Ref Prov Start: 11-08-2024 Antibody screen Bruce Ham ilton MD Work Phone: Start: 11-08-2024 Drug scrn [...] Phone: Start: 09-16-2024 IGP,APTIMA HPV,AGE GDLN [employer] DO Work Phone: Start: 09-16-2024 Microscopic observat ion [Identifier] in Cervix by Cyto stain [facility] Nurse Start: 05-12-2022 Laparoscopic appendectomy William Yoder History of appendectomy History of appendectomy( Confirmed ) Helene HAMILTON None (qualifier value) Rachna HAMILTON Plan of Treatment Date Care Activity Detail Author Start: 09-16-2029 Screening for malignant neoplasm of cervix [facility] Start: 09-16-2027 Screening for malignant neoplasm of cervix Pap Smear [facility] Start: 04-01-2026 End: 04-01-2026 US MFM with or without consult US MFM with or without consult Imaging Routine Chronic hypertension affecting Gestational diabetes mellitus (GDM), antepartum, gestational diabetes method of control unspecified Expected: 04/01/2026 (Approximate), Expires: 04/01/2026 [employer] Work Phone: Comment on above: Expected: 04/01/2026 (Approximate), Expi res: 04/01/2026 Start: 03-04-2026 End: 03-04-2026 US MFM with or without consult US MFM with or without consult Imaging Routine Chronic hypertension affecting Advanced maternal age in multigravida, second trimester Gestational diabetes mellitus (GDM), antepartum, gestational diabetes method of control unspecified Expected: 03/04/2026 (Approximate), Expires: 03/04/2026 [facility] Work Phone: Comment on above: Expected: 03/04/2026 (Approximate), Expi res: 03/04/2026 Start: 01-21-2026 Adult BMI Screening Adult BMI Screening [facility] Start: 01-21-2026 Tobacco Screening Tobacco Screening [facility] Start: 08-05-2025 Screening for malignant neoplasm of cervix [facility] Start: 06-23-2025 Influenza vaccination [facility] Start: 05-19-2025 End: 05-19-2025 Patient encounter procedure 05/19/2025 9:40 AM EDT Routine [facility] [address] [place] [phone] Mik Borrego, DO [address] [place] [address] [facility] Start: 05-12-2025 End: 05-12-2025 Patient encounter procedure 05/12/2025 9:10 AM EDT Routine [facility] [address] [place] [phone] Mik Borrego, DO [address] [place] [address] [facility] Start: 05-05-2025 End: 05-05-2025 Patient encounter procedure 05/05/2025 9:10 AM EDT Routine [facility] [address] [place] [phone] Mik Borrego, DO [address] [place] [address] [facility] Start: 04-30-2025 End: 04-30-2026 Alanine aminotransferase [Enzymatic activity/volume] in Serum or Plasma ALT Lab Routine induced hypertension, antepartum ([facility]) Expected: 04/30/2025 (Approximate), Expires: 04/30/2026 [facility] Comment on above: Expected: 04/30/2025 (Approximate), Expi res: 04/30/2026 Start: 04-30-2025 End: 04-30-2026 Aspartate aminotransferase [Enzymatic activity/volume] in Serum or Plasma AST Lab Routine induced hypertension, antepartum ([facility]-HCC) Expected: 04/30/2025 (Approximate), Expires: 04/30/2026 [facility] Comment on above: Expected: 04/30/2025 (Approximate), Expi res: 04/30/2026 Start: 04-30-2025 End: 04-30-2026 CBC W Auto Differential panel - Blood CBC and differential Lab Routine induced hypertension, antepartum ([facility]) Expected: 04/30/2025 (Approximate), Expires: 04/30/2026 [facility] Comment on above: Expected: 04/30/2025 (Approximate), Expi res: 04/30/2026 Start: 04-30-2025 End: 04-30-2026 Creatinine [Mass/volume] in Serum or Plasma Creatinine Lab Routine induced hypertension, antepartum ([facility]HCC) Expected: 04/30/2025 (Approximate), Expires: 04/30/2026 [facility] Work Phone: Comment on above: Expected: 04/30/2025 (Approximate), Expi res: 04/30/2026 Start: 04-30-2025 End: 04-30-2026 Lactate dehydrogenase [Enzymatic activity/volume] in Serum or Plasma by Lactate to pyruvate reaction Lactate dehydrogenase Lab Routine induced hypertension, antepartum ([facility]) Expected: 04/30/2025, Expires: 04/30/2026 [facility] Comment on above: Expected: 04/30/2025, Expires: Start: 04-30-2025 End: 04-30-2026 Protein, urine, 24 hour Protein, urine, 24 hour Lab Routine induced hypertension, antepartum ([facility]) Expected: 04/30/2025 (Approximate), Expires: 04/30/2026 [facility] Comment on above: Expected: 04/30/2025 (Approximate), Expi res: 04/30/2026 Start: 04-30-2025 End: 04-30-2026 Pt and ptt Pt and ptt Lab Routine induced hypertension, antepartum ([facility]CC) Expected: 04/30/2025, Expires: 04/30/2026 [facility] Comment on above: Expected: 04/30/2025, Expires: Start: 04-30-2025 End: 04-30-2026 Urate [Mass/volume] in Serum or Plasma Uric acid Lab Routine induced hypertension, antepartum ([facility]) Expected: 04/30/2025 (Approximate), Expires: 04/30/2026 [facility] Comment on above: Expected: 04/30/2025 (Approximate), Expi res: 04/30/2026 Start: 04-30-2025 End: 04-30-2026 Urea nitrogen [Mass/volume] in Serum or Plasma BUN Lab Routine induced hypertension, antepartum ([facility]) Expected: 04/30/2025, Expires: 04/30/2026 [facility] Comment on above: Expected: 04/30/2025, Expires: Start: 04-29-2025 End: 04-29-2025 Patient encounter procedure 04/29/2025 3:15 PM EDT Appointment [facility] [address] [place] [phone] [facility] Start: 04-28-2025 End: 04-28-2025 Patient encounter procedure 04/28/2025 2:50 PM EDT Routine [facility] [address] [facility] [place] [address] [place] [phone] Mik Borrego DO [address] [place] [address] [facility] Start: 04-21-2025 End: 04-21-2025 Patient encounter procedure 04/21/2025 3:20 PM EDT Routine [facility] [address] [facility] [address] Mik Borrego DO [address] [place] [address] [facility] Start: 04-21-2025 End: 08-21-2025 US for US OB follow up transabdominal approach Imaging Routine Insulin controlled gestational diabetes mellitus (GDM) in third trimester ([facility]) Expected: 04/21/2025, Expires: 08/21/2025 [facility] Work Phone: Comment on above: Expected: 04/21/2025, Expires: Start: 04-14-2025 End: 04-14-2025 Patient encounter procedure [facility] Comment on above: Arrived Start: 04-08-2025 End: 04-08-2025 Patient encounter procedure [facility] Comment on above: Arrived Start: 03-31-2025 End: 03-31-2025 Patient encounter procedure 03/31/2025 11:00 AM EDT Appointment [facility] [address] [place] [address] [facility] Start: 03-24-2025 End: 09-23-2025 US biophysical profile w non stress test US biophysical profile w non stress test Imaging Routine Gestational diabetes mellitus (GDM), antepartum, gestational diabetes method of control unspecified Multigravida of advanced maternal age in third trimester Expected: 03/24/2025 (Approximate), Expires: 09/23/2025 [facility] Comment on above: Expected: 03/24/2025 (Approximate), Expi res: 09/23/2025 Start: 03-24-2025 End: 07-24-2025 US for US OB follow up transabdominal approach Imaging Routine Gestational diabetes mellitus (GDM), antepartum, gestational diabetes method of control unspecified Multigravida of advanced maternal age in third trimester Expected: 03/24/2025, Expires: 07/24/2025 [facility] Work Phone: Comment on above: Expected: 03/24/2025, Expires: Start: 03-24-2025 End: 03-24-2025 Patient encounter procedure [facility] Comment on above: Arrived Start: 03-03-2025 End: 03-03-2025 Patient encounter procedure 03/03/2025 11:00 AM EDT Appointment [facility] [address] [place] [address] [facility] Start: 02-24-2025 End: 02-24-2025 Patient encounter procedure [facility] Comment on above: Arrived Start: 02-10-2025 End: 02-10-2025 ambulatory 02/10/2025 1:30 PM EDT Support Visit Maternal- Medicine at [facility] [address] [place] [address] Elham Garcia, RN [address], [address] [place] [address], [place] [address] Mansi Boyer, RD [address], [address] [place] [address], [place] [address] [facility] Start: 02-10-2025 End: 02-10-2025 Telemedicine consultation with patient 02/10/2025 10:30 AM EDT Telemedicine [facility] at [facility] [address] [place] [address] Hien Ribera PA-C [address] [place] [address], [place] [address] [facility] Start: 01-27-2025 End: 01-27-2026 CBC panel - Blood by Automated count CBC Lab Routine Diabetes mellitus screening Expected: 01/27/2025 (Approximate), Expires: 01/27/2026 [facility] Work Phone: Comment on above: Expected: 01/27/2025 (Approximate), Expi res: 01/27/2026 Start: 01-27-2025 End: 01-27-2026 Comprehensive metabolic 2000 panel - Serum or Plasma Comprehensive metabolic panel Lab Routine Second trimester Elevated blood pressure affecting , antepartum induced hypertension, antepartum Antepartum multigravida of advanced maternal age Expected: 01/27/2025 (Approximate), Expires: 01/27/2026 [facility] Comment on above: Expected: 01/27/2025 (Approximate), Expi res: 01/27/2026 Start: 01-27-2025 End: 01-27-2026 ECG 12 lead ECG 12 lead ECG Routine Second trimester Elevated blood pressure affecting , antepartum induced hypertension, antepartum Antepartum multigravida of advanced maternal age Expected: 01/27/2025 (Approximate), Expires: 01/27/2026 [facility] Comment on above: Expected: 01/27/2025 (Approximate), Expi res: 01/27/2026 Start: 01-27-2025 End: 01-27-2027 Echocardiogram 2D complete Echocardiogram 2D complete Echocardiography Routine Second trimester Elevated blood pressure affecting , antepartum induced hypertension, antepartum Antepartum multigravida of advanced maternal age Expected: 01/27/2025 (Approximate), Expires: 01/27/2027 [facility] Comment on above: Expected: 01/27/2025 (Approximate), Expi res: 01/27/2027 Start: 01-27-2025 End: 01-27-2026 Lactate dehydrogenase [Enzymatic activity/volume] in Serum or Plasma by Lactate to pyruvate reaction Lactate dehydrogenase Lab Routine Second trimester Elevated blood pressure affecting , antepartum induced hypertension, antepartum Antepartum multigravida of advanced maternal age Expected: 01/27/2025, Expires: 01/27/2026 [facility] Comment on above: Expected: 01/27/2025, Expires: Start: 01-27-2025 End: 01-27-2026 Measurement of glucose 1 hour after glucose challenge for glucose tolerance test Glucose tolerance, 1 hour Lab Routine Diabetes mellitus screening Expected: 01/27/2025 (Approximate), Expires: 01/27/2026 [facility] Comment on above: Expected: 01/27/2025 (Approximate), Expi res: 01/27/2026 Start: 01-27-2025 End: 01-27-2026 Natriuretic peptide B [Mass/volume] in Blood B-type natriuretic peptide Lab Routine Second trimester Elevated blood pressure affecting , antepartum induced hypertension, antepartum Antepartum multigravida of advanced maternal age Expected: 01/27/2025 (Approximate), Expires: 01/27/2026 [facility] Comment on above: Expected: 01/27/2025 (Approximate), Expi res: 01/27/2026 Start: 01-27-2025 End: 01-27-2026 Urate [Mass/volume] in Serum or Plasma Uric acid Lab Routine Second trimester Elevated blood pressure affecting , antepartum induced hypertension, antepartum Antepartum multigravida of advanced maternal age Expected: 01/27/2025 (Approximate), Expires: 01/27/2026 [facility] Comment on above: Expected: 01/27/2025 (Approximate), Expi res: 01/27/2026 Start: 01-27-2025 End: 01-27-2025 Patient encounter procedure [facility] Comment on above: Arrived Start: 01-21-2025 End: 01-21-2026 US MFM with or without consult US MFM with or without consult Imaging Routine Chronic hypertension affecting Advanced maternal age in multigravida, second trimester Prediabetes in mother during Gestational diabetes mellitus (GDM), antepartum, gestational diabetes method of control unspecified Expected: 01/21/2025, Expires: 01/21/2026 [facility]: Comment on above: Expected: 01/21/2025, Expires: Start: 01-21-2025 End: 01-21-2025 Patient encounter procedure 01/21/2025 10:30 AM EDT Office Visit [facility]- Medicine at [facility] [address] [place] [address] Bruce Perez MD [address] [place] [address] [facility] at [facility] Start: 01-21-2025 End: 01-21-2025 Patient encounter procedure 01/21/2025 9:15 AM EDT Appointment [facility] [address] [place] [phone] [facility] Start: 01-20-2025 End: 01-20-2025 Patient encounter procedure 01/20/2025 9:20 AM EDT Routine [facility] [address] [facility] [place] [phone] Mik Borrego DO [address] [place] [address] [facility] Start: 12-30-2024 End: 12-30-2024 Clinical Support 12/30/2024 9:10 AM EDT Clinical Support [facility] [address] [place] [phone] [facility] Start: 12-23-2024 End: 02-22-2025 Alpha fetoprotein, maternal Alpha fetoprotein, maternal Lab Routine Screening, , for anatomic survey Expected: 12/23/2024 (Approximate), Expires: 02/22/2025 [facility] Comment on above: Expected: 12/23/2024 (Approximate), Expi res: 02/22/2025 Start: 12-23-2024 End: 12-23-2024 Patient encounter procedure [facility] Comment on above: Arrived Start: 11-25-2024 End: 11-25-2024 Patient encounter procedure [facility] Comment on above: Arrived Start: 10-24-2024 End: 10-24-2025 ABO/Rh ABO/Rh Lab Routine Missed menses , unspecified gestational age Expected: 10/24/2024 (Approximate), Expires: 10/24/2025 [facility] Comment on above: Expected: 10/24/2024 (Approximate), Expi res: 10/24/2025 Start: 10-24-2024 End: 10-24-2025 Blood type and Indirect antibody screen panel - Blood Type and screen Lab Routine Missed menses , unspecified gestational age Expected: 10/24/2024 (Approximate), Expires: 10/24/2025 [facility] Comment on above: Expected: 10/24/2024 (Approximate), Expi res: 10/24/2025 Start: 10-24-2024 End: 10-24-2025 Drugs of abuse panel - Urine by Screen method Rapid drug screen, urine Lab Routine , unspecified gestational age Encounter for supervision of normal first in first trimester Expected: 10/24/2024 (Approximate), Expires: 10/24/2025 [facility] Comment on above: Expected: 10/24/2024 (Approximate), Expi res: 10/24/2025 Start: 10-24-2024 End: 10-24-2025 US Pelvis transvaginal [facility] Work Phone: Comment on above: Expected: 10/24/2024, Expires: Start: 09-16-2024 End: 09-16-2024 Patient encounter procedure 09/16/2024 3:00 PM EST Office Visit [facility] [address] [place] [address] [place] [phone] Mik Borrego, [address] [place] [address] Arrived [facility] Comment on above: Arrived Start: 06-23-2024 COVID-19 Vaccine ( season) COVID-19 Vaccine ( season) [facility] Start: 06-23-2024 Influenza vaccination [facility] Start: 06-01-2019 DTaP,Tdap and Td Vaccines (2 - Td or Tdap) DTaP,Tdap and Td Vaccines (2 - Td or Tdap) [facility] Start: 2009 Screening for malignant neoplasm of cervix Pap Smear [facility] Start: 2007 DTaP,Tdap and Td Vaccines (1 - Tdap) DTaP,Tdap and Td Vaccines (1 - Tdap) [facility] Start: 2006 Adult BMI Follow Up Plan Adult BMI Follow Up Plan [facility] Start: 2006 Adult BMI Screening Adult BMI Screening [facility] Start: 2000 Depression Screening Depression Screening [facility] Start: 2000 Tobacco Screening Tobacco Screening [facility] Bacteria identified in Urine by Culture Urine culture Microbiology Routine Missed menses Ordered: 10/24/2024 [facility] Comment on above: Ordered: 10/24/2024 End: 01-21-2026 CBC panel - Blood by Automated count CBC without diff Lab Routine Chronic hypertension affecting 1 Occurrences starting 01/21/2025 until 01/21/2026 [facility] Comment on above: 1 Occurrences starting 01/21/2025 until 01/21/2026 CBC W Auto Different ial panel - Blood CBC and differential Lab Routine Missed menses , unspecified gestational age Ordered: 10/24/2024 [facility] Comment on above: Ordered: 10/24/2024 CBC W Auto Different ial panel - Blood CBC and differential Lab Routine Second trimester Elevated blood pressure affecting , antepartum induced hypertension, antepartum Antepartum multigravida of advanced maternal age Ordered: 01/27/2025 [facility] Comment on above: Ordered: 01/27/2025 CHLAMYDIA TRACHOMATI S (GENITO/STI) CHLAMYDIA TRACHOMATIS (GENITO/STI) Lab Routine STD exposure Vaginal discharge Ordered: 12/23/2024 [facility] Comment on above: Ordered: 12/23/2024 End: 01-21-2026 Comprehensive metabolic 2000 panel - Serum or Plasma Comprehensive metabolic panel Lab Routine Chronic hypertension affecting 1 Occurrences starting 01/21/2025 until 01/21/2026 [facility] Comment on above: 1 Occurrences starting 01/21/2025 until 01/21/2026 Cytology Cervical or vaginal smear or scraping study Pap Smear Pathology and Cytology Routine Well woman exam with routine gynecological exam Ordered: 09/16/2024 [facility] Work Phone: Comment on above: Ordered: 09/16/2024 End: 01-21-2026 ECG 12 lead ECG 12 lead ECG Routine Chronic hypertension affecting 1 Occurrences starting 01/21/2025 until 01/21/2026 [employer] Comment on above: 1 Occurrences starting 01/21/2025 until 01/21/2026 Hemoglobin A1c/Hemoglobin.total in Blood Hemoglobin A1c Lab Routine Missed menses , unspecified gestational age Ordered: 10/24/2024 [facility] Comment on above: Ordered: 10/24/2024 Hepatitis B virus avalos rface Ag [Presence] in Serum or Plasma by Immunoassay Hepatitis B surface antigen Lab Routine Missed menses , unspecified gestational age Ordered: 10/24/2024 [facility] Comment on above: Ordered: 10/24/2024 Hepatitis C virus Ab [Presence] in Serum or Plasma by Immunoassay Hepatitis C antibody Lab Routine Missed menses , unspecified gestational age Ordered: 10/24/2024 [facility] Comment on above: Ordered: 10/24/2024 HIV-1/HIV-2 antigen/antibody combination immunoassay HIV-1 and HIV-2 antibodies Lab Routine Missed menses , unspecified gestational age Ordered: 10/24/2024 [facility] Comment on above: Ordered: 10/24/2024 Human papilloma viru s DNA [Presence] in Unspecified specimen by Probe with amplification HPV DNA probe, amplified Microbiology Routine Well woman exam with routine gynecological exam Ordered: 09/16/2024 [facility] Comment on above: Ordered: 09/16/2024 End: 01-21-2026 Natriuretic peptide B [Mass/volume] in Blood B-type natriuretic peptide Lab Routine Chronic hypertension affecting 1 Occurrences starting 01/21/2025 until 01/21/2026 [employer] Work Phone: Comment on above: 1 Occurrences starting 01/21/2025 until 01/21/2026 Neisseria gonorrhoea e DNA [Presence] in Unspecified specimen by DANA with probe detection Neisseria gonorrhea DNA probe, direct Lab Routine STD exposure Vaginal discharge Ordered: 12/23/2024 [facility] Comment on above: Ordered: 12/23/2024 End: 01-21-2026 Protein creat ratio Protein creat ratio Lab Routine Chronic hypertension affecting 1 Occurrences starting 01/21/2025 until 01/21/2026 [employer] Comment on above: 1 Occurrences starting 01/21/2025 until 01/21/2026 Protein, urine, 24 hour Protein, urine, 24 hour Lab Routine Second trimester Elevated blood pressure affecting , antepartum induced hypertension, antepartum Antepartum multigravida of advanced maternal age Ordered: 01/27/2025 [facility] Comment on above: Ordered: 01/27/2025 Reagin Ab [Presence] in Serum by RPR RPR Lab Routine Missed menses , unspecified gestational age Ordered: 10/24/2024 [facility] Comment on above: Ordered: 10/24/2024 Rubella antibody, IgG Rubella an tibody, IgG Lab Routine Missed menses , unspecified gestational age Ordered: 10/24/2024 [facility] Comment on above: Ordered: 10/24/2024 SURESWAB(R) ADVANCED VAGINITIS PLUS, TMA SURESWAB(R) ADVANCED VAGINITIS PLUS, TMA Pathology and Cytology Routine STD exposure Vaginal discharge Ordered: 12/23/2024 [facility] Work Phone: Comment on above: Ordered: 12/23/2024 Immunizations Immunization Date Immunization Notes Care Provider Radha [facility] 08-05-2021 COVID-19, mRNA, LNP- S, PF, 30 mcg/0.3 mL dose Helene HAMILTON [facility] 06-25-2021 COVID-19, mRNA, LNP- S, PF, 30 mcg/0.3 mL dose Helene HAMILTON [facility] 02-08-2019 meningococcal ACWY vaccine, unspecified formulation Helene HAMILTON [facility] 12-14-2009 hepatitis B vaccine, adult dosage Helene HAMILTON [facility] 07-03-2009 hepatitis B vaccine, adult dosage Helene HAMILTON [facility] 06-01-2009 hepatitis B vaccine, adult dosage Helene HAMILTON [facility] 06-01-2009 tetanus toxoid, redu [place] diphtheria toxoid, and acellular pertussis vaccine, adsorbed Helene HAMILTON [facility] 05-16-2001 measles, mumps and rubella virus vaccine Helenedhara HAMILTON [facility] NEGATED: Highlighted row has not occurred!03-08-2022 influenza virus vaccine, unspecified formulation Helene HAMILTON [facility] NEGATED: Highlighted row has not occurred!03-16-2021 SARS-CoV-2 (COVID-19) mRNA-7773 vaccine Helenedhara HAMILTON [facility] NEGATED: Highlighted row has not occurred!10-20-2020 influenza virus vaccine, unspecified formulation Helene HAMILTON [facility] Payers Date Payer Category Payer Unknown [id number] 2022 Blue Cross Blue Shield [facility] Plan / Payer (Effective 2022-Present) Name: Julissa Weems Relation to Subscriber: Spouse Name: lC Gross Date of : 1990 Address: [address] [place] [address] Payer ID: Not on file Type: Not on file Address: [address] [place] [id number] 2022 Blue Cross Blue Shie ld Managed Care - PPO ANTHEM [id number] 2022 Unknown [id number] 1990 Unknown [id number] 2..840.1.418916.3.579. 2.727 1990 Unknown [id number] 2..840.1.812086.3.579. 2. 1990 Unknown [id number] 2..840.1.224495.3.579. 2.727 1990 Unknown [id number] 2..840.1.782399.3.579. 2.1286 1990 Unknown [id number] 2.16.840.1.800523.3.579. 2.1286 1988 Unknown [id number] 2.16.840.1.520724.3.579. 2.1286 1988 Unknown [id number] 2.16.840.1.201525.3.579. 2.1286 1990 Unknown [id number] 2.16.840.1.006282.3.579. 2.9 1988 Unknown [id number] 2.16.840.1.377398.3.579. 2.9 1988 Unknown [id number] 2.16.840.1.395792.3.579. 2.9 1990 Unknown [id number] 2.16.840.1.281748.3.579. 2.9 1988 Unknown [id number] 2.16.840.1.048607.3.579. 2.1258 1988 Unknown [id number] 2.16.840.1.370079.3.579. 2.9 1988 Unknown [id number] 2.16.840.1.091842.3.579. 2.1258 1988 Unknown [id number] 2.16.840.1.880098.3.579. 2.9 1988 Unknown [id number] 2.16.840.1.289781.3.579. 2.9 1988 Unknown [id number] 2.16.840.1.913532.3.579. 2.9 1988 Unknown [id number] 2.16.840.1.692651.3.579. 2.1258 1988 Unknown [id number] 2.16.840.1.070819.3.579. 2.9 1988 Unknown [id number] 2.16.840.1.019952.3.579. 2.1258 1990 Unknown [id number] 2.16.840.1.103836.3.579. 2.1259 Social History Date Type Detail Facility Start: 03-08-2022 End: 02-16-2025 Tobacco smoking status Never smoked tobacco (finding) [facility] Start: 01-21-2025 Sex Assigned At Female F [facility] Start: 12-06-2024 Tobacco smoking stat [facility] Tobacco smoking consumption unknown [facility] Start: 1990 Sex assigned at Not on file [facility] Start: 09-19-2024 [facility] Start: 01-10-2019 End: 12-05-2024 Sex Female (finding) [facility] Start: 01-21-2025 Tobacco smoking stat [facility] Ex-smoker [facility] History of tobacco use [facility] History of tobacco use Cigarette Smoker P [facility] Start: 01-21-2025 Tobacco use and exposure Smokeless tobacco non-user [facility] Start: 01-21-2025 Alcoholic beverage intake Ex-drinker (finding) [facility] Start: 01-21-2025 History of Social function [facility] Within the past 12 months we worried whether our food would run out before we got money to buy more. Never True [facility] Sexual Orientation [facility] Medical Equipment Procedure Code Equipment Code Equipment Origin al Text Equipment Identifier Dates 1 strip by other route in the morning and 1 strip at noon and 1 strip in the evening and 1 strip before bedtime. [id number] Start: 01-21-2025 Fasting and 1hr postprandial [id number] Start: 01-21-2025 1 strip by In Vi tro route Daily Use in the morning prior to breakfast, 1 hour after each meal for a total of 4times daily. [id number] Start: 01-27-2025 End: 02-26-2025 1 each by In Vit ro route Daily Use to check FSBS four times daily [id number] Start: 01-27-2025 End: 02-26-2025 Use four times d aily to check FSBS as directed. [id number] Start: 01-29-2025 End: 01-29-2026 1 each by In Vit ro route Daily Use to check FSBS four times daily [id number] Start: 01-29-2025 End: 02-28-2025 Use as instructed [id number] Start: 04-08-2025 Functional Status Date Assessment Result Facility 05-11-2022 Functional Status N/A [facility] Clinical Notes 03-08-2022 to 04-30-2025 LISA Lomeli - 04/30/2025 2:00 PM EDKaila Chowdary MA - 04/21/2025 3:20 PM Tatiana Cortes NP - 04/14/2025 9:00 AM EDLevi Arizmendi LPN - 04/08/2025 11:10 AM EDT Note Date & Type Note Facility 04-30-2025 History of Presen t illness Narrative Reason [...] Noted Vaginal bleeding affecting early ([facility]) 11/06/2024 headache, antepartum ([facility]) 12/25/2024 Elevated blood pressure affecting , antepartum ([facility]) 01/16/2025 Insulin controlled gestational diabetes mellitus (GDM) in third trimester ([facility]) 04/21/2025 Multigravida of advanced maternal age in third trimester ([facility]) 04/21/2025 Hypertension 04/21/2025 Third trimester ([facility]) 04/21/2025 Resolved Ambulatory Problems Diagnosis Date Noted No Resolved Ambulatory Problems Past Medical History: Diagnosis Date ADHD (attention deficit hyperactivity disorder) Anxiety Gestational diabetes ([facility]) Insulin resistance PCOS (polycystic ovarian syndrome) HISTORY PAST MEDICAL HISTORY SOCIAL HISTORY Past Medical History: Diagnosis Date ADHD (attention deficit hyperactivity disorder) Anxiety Gestational diabetes ([facility]) Hypertension Insulin resistance PCOS (polycystic ovarian syndrome) [...] Vitals: Estimated body mass index is 34.27 kg/m as calculated from the following: Height as of 05/06/24: 5' 7 . Weight as of this encounter: 218 lb 12.8 oz. BP: 146/90 Patient's last menstrual period was 08/23/2024. ASSESSMENT & PLAN ICD-10-CM 1. 33 weeks gestation of ([facility]) Z3A.33 POCT urinalysis dipstick manually resulted 2. Third trimester ([facility]) Z34.93 POCT urinalysis dipstick manually resulted 3. High blood pressure affecting in third trimester, antepartum ([facility]) O16.3 Patient presents today for headaches, elevated BP and increased urinary symptoms with decreased output. Patient taking procardia XL at 60mg. Took BP at work today 160/90 with headaches and floaters, called office and came in. BP 146/90. Patient will be sent to OB unit and evaluated for preeclampsia and possible transfer. Patient and agree with plan of care Documented by LISA Lomeli on behalf of: LISA Lomeli documented in this encounter [facility] 04-21-2025 History of Presen t illness Narrative [...] Noted Vaginal bleeding affecting early ([facility]) 11/06/2024 headache, antepartum ([facility]) 12/25/2024 Elevated blood pressure affecting , antepartum ([facility]) 01/16/2025 Resolved Ambulatory Problems Diagnosis Date Noted No Resolved Ambulatory Problems Past Medical History: Diagnosis Date ADHD (attention deficit hyperactivity disorder) Anxiety Gestational diabetes ([facility]) Hypertension Insulin resistance PCOS (polycystic ovarian syndrome) HISTORY PAST MEDICAL HISTORY SOCIAL HISTORY Past Medical History: Diagnosis Date ADHD (attention deficit hyperactivity disorder) Anxiety Gestational diabetes ([facility]) Hypertension Insulin resistance PCOS (polycystic ovarian syndrome) [...] ASSESSMENT & PLAN ICD-10-CM 1. Third trimester ([facility]) Z34.93 2. 32 weeks gestation of ([facility]) Z3A.32 Return OB: Patient presents today for [...] Mik Borrego DO documented in this encounter [facility] 04-14-2025 History of Presen t illness Narrative [...] Diagnosis Date Noted Vaginal bleeding affecting early ([facility] 11/06/2024 headache, antepartum ([facility]) 12/25/2024 Elevated blood pressure affecting , antepartum ([facility]) 01/16/2025 Resolved Ambulatory Problems Diagnosis Date Noted No Resolved Ambulatory Problems Past Medical History: Diagnosis Date ADHD (attention deficit hyperactivity disorder) Anxiety Gestational diabetes ([facility]) Hypertension Insulin resistance PCOS (polycystic ovarian syndrome) HISTORY PAST MEDICAL HISTORY SOCIAL HISTORY Past Medical History: Diagnosis Date ADHD (attention deficit hyperactivity disorder) Anxiety Gestational diabetes ([facility]) Hypertension Insulin resistance PCOS (polycystic ovarian syndrome) [...] nursing note reviewed. Exam conducted with a ham trimmer present. Vitals: Estimated body mass index is 33.8 kg/m as calculated from the following: Height as of 05/06/24: 5' 7 . Weight as of this encounter: 215 lb 12.8 oz. BP: 126/82 Patient's last menstrual period was 08/23/2024. ASSESSMENT & PLAN ICD-10-CM 1. Third trimester ([facility]) Z34.93 POCT urinalysis dipstick manually resulted 2. 31 weeks gestation of ([facility]) Z3A.31 POCT urinalysis dipstick manually resulted Return [...] Mik Borrego DO documented in this encounter [facility] 04-08-2025 History of Presen t illness Narrative [...] Noted Vaginal bleeding affecting early ([facility]) 11/06/2024 headache, antepartum ([facility]) 12/25/2024 Elevated blood pressure affecting , antepartum ([facility]) 01/16/2025 Resolved Ambulatory Problems Diagnosis Date Noted No Resolved Ambulatory Problems Past Medical History: Diagnosis Date ADHD (attention deficit hyperactivity disorder) Anxiety Gestational diabetes ([facility]) Hypertension Insulin resistance PCOS (polycystic ovarian syndrome) HISTORY PAST MEDICAL HISTORY SOCIAL HISTORY Past Medical History: Diagnosis Date ADHD (attention deficit hyperactivity disorder) Anxiety Gestational diabetes ([facility]) Hypertension Insulin resistance PCOS (polycystic ovarian syndrome) [...] nursing note reviewed. Exam conducted with a ham trimmer present. Vitals: Estimated body mass index is 33.36 kg/m as calculated from the following: Height as of 05/06/24: 5' 7 . Weight as of this encounter: 213 lb. BP: 122/78 Patient's last menstrual period was 08/23/2024. ASSESSMENT & PLAN ICD-10-CM 1. Third trimester ([facility]) Z34.93 POCT urinalysis dipstick manually resulted 2. 30 weeks gestation of ([facility]) Z3A.30 3. Gestational diabetes mellitus (GDM), antepartum, gestational diabetes method of control unspecified ([facility]) O24.419 insulin NPH, Isophane, (HumuLIN N,NovoLIN N) [...] evening. Pt voiced understanding- pt to email raphael to Kimi weekly. Orders Placed This Encounter Procedures POCT urinalysis dipstick manually resulted Follow Up: Patient is to return to office in 1 week for routine OB appointment. Documented by Mariam Arizmendi LPN on behalf of: Mik Borrego DO documented in this encounter [facility] 03-24-2025 History of Presen t illness Narrative [...] Mik Borrego DO documented in this encounter [facility] 02-24-2025 History of Presen t illness Narrative [...] Diagnosis Date ADHD (attention deficit hyperactivity disorder) ([facility]) Anxiety Gestational diabetes Hypertension [facility]) Insulin resistance PCOS (polycystic ovarian syndrome) HISTORY PAST MEDICAL HISTORY SOCIAL HISTORY Past Medical History: Diagnosis Date ADHD (attention deficit hyperactivity disorder) ([facility]) Anxiety Gestational diabetes Hypertension ([facility]) Insulin resistance PCOS (polycystic ovarian syndrome) Social [...] by LISA Lomeli documented in this encounter [facility] 02-17-2025 Note Echocardiology Procedure Exam Date/Time Accession # Ordering Echo Transthoracic 02/17/2025 13:32 EDT [id number] Mik BORREGO DO Complete CPT code 33765 92008 Reason for Exam (Echo Transthoracic Complete) Z34.92, O16.9, O13.9, O09.529 Report [facility] [address] [place] [address] Adult Echocardiogram Report Name: JULISSA WEEMS Study Date: 02/17/2025 12:56 PM BP: 131/88 mmHg Patient Location: [facility] Ambulatory(s) [facility] HR: 84 : 1990 Gender: Female Height: 67 in Age: 34 yrs Ethnicity: T Weight: 211 lb Reason For Study: Z34.92, O16.9, O13.9, O09.529 BSA: 2.1 m2 History: No cardiac history per patient Ordering Physician: ELMO^Mik^R Referring Physician: Mik BORREGO Performed By: Christina Dubois RDCS Interpretation Summary [...] Shahram Tao MD Transcribed by: MEGAN Technologist: [facility] 02-04-2025 Miscellaneous Notes Spoke with patient to reschedule DBE, she took @ [place] so we will not follow her blood sugars. documented in this encounter [facility] 02-04-2025 Telephone encounter Note Spoke with patient to reschedule DBE, she took @ [place] so we will not follow her blood sugars[facility] History of Presen t illness [...] Diagnosis Date ADHD (attention deficit hyperactivity disorder) ([facility]) Anxiety Gestational diabetes Hypertension (CMS/HCC) Insulin resistance PCOS (polycystic ovarian syndrome) HISTORY PAST MEDICAL HISTORY SOCIAL HISTORY Past Medical History: Diagnosis Date ADHD (attention deficit hyperactivity disorder) (CMS/HCC) Anxiety Gestational diabetes Hypertension ([facility]) Insulin resistance PCOS (polycystic ovarian syndrome) Social [...] nursing note reviewed. Exam conducted with a ham trimmer present. Vitals: Estimated body mass index is [...] week with increase from 30 mg per [facility]. She reports elevation in B/P at home and feeling of tachycardia. B/P here today 136/80. She will continue to monitor B/P at home and send to us. She reports not measuring her glucose at home and a glucose monitor and test strips are sent in to the pharmacy today. No lower extremity edema today and no protien in urine today. [facility] recommend baseline EKG and BNP, CBC, CMP, uric acid and lactate. 24 hour urine protein and cardiac echo orders will be given today. Documented by Pricilla Cortes NP on behalf of: Mik Borrego DO documented in this encounter [facility] 01-21-2025 Miscellaneous Notes I tried to schedule pt sooner for [place],but pt refused all the days till 02-10, documented in this encounter [facility] 01-21-2025 Telephone encounter Note I tried to schedule pt sooner for [place],but pt refused all the days till 02-10, [facility] 01-21-2025 History of Presen t illness [...] Baby Boy: Cornelio Patient is a family [employer]. I have reviewed the pertinent available patient [...] TESTS AND ULTRASOUND REPORTS: Referral records and [facility] chart were reviewed Pertinent Ultrasound findings are [...] previously recommended threshold of 160/110. Reference: PMID: [id number]. Blood pressures do increase as progresses and [...] preeclampsia prevention as is recommended by the [place] [employer] Committee Opinion No. 743. [...] times daily, fasting and 1 hour postprandials [facility] nutrition and diabetes counseling recommend obtaining baseline [...] echocardiogram, attempt completion in 4-6 weeks through [facility] serial growth ultrasounds every 4 weeks following completion of level 2 anatomy US, through [facility] Recommend twice weekly testing starting at 32 [...] developing diabetes later on. Follow up in [facility] in 2 weeks DISPOSITION: At this point the patient is in complete care of her parquetry layer. Patient does have ultrasound and office visit scheduled with us. Thank you for allowing me to participate in the care of Julissachen Weems. If there any questions please do not hesitate to contact us. Total time spent was 65 minutes: Preparing to see the patient (e.g., review of tests) Obtaining and/or reviewing separately obtained history Performing a medically appropriate examination and/or evaluation Counseling and educating the patient/family/caregiver Ordering medications, tests, or procedures Referring and communicating with other health direct care specialist (not separately reported) Documenting clinical information in the electronic or other health record Independently interpreting results (not separately reported) and communicating results to the patient/family/caregiver Bruce Perez MD Maternal- Medicine [facility] [address]st [place] [address] [facility], the CDC, and other organizations representing maternal and public health professionals recommend that , , and lactating people and those considering receive the COVID-19 vaccination. Vaccination is the best method to reduce maternal and complications of SARS-CoV-2 infection. This document was created with [employer] technology. Though I make every effort to review the dictation as it is transcribed, on occasion the spoken word can be misinterpreted by the technology leading to inappropriate words, phrases, or sentences. This note is addressed to the requesting provider as a consultation for clinical guidance. Specific medical abbreviations are occasionally used and those are generally approved by the [place]?Board of?Obstetrics and?Gynecology?as well as?[place] s abbreviations. The above plan of care was based solely on the diagnoses for which a consultation was requested. ?More frequent testing may be indicated based on her other medical/obstetrical conditions. The management of other or medical conditions is beyond the scope of requested consultation and will continue to be followed by the primary parquetry layer or primary care provider. Note to patient: [...] No Have you been seen here at [facility] in a previous ? No Recent ER visits or hospitalizations? No Bring blood sugar log or meter with you today? (Please bring them with you for every visit at [facility]) N/A Flu vaccine (Aug-December)? Any concerns that you would like me to mention to the provider today? No documented in this encounter [facility] 01-17-2025 Miscellaneous Notes Voicemail left on nurse line requesting labs and any genetic testing results be faxed to our office. documented in this encounter [facility] 01-17-2025 Telephone encounter Note Voicemail left on nurse line requesting labs and any genetic testing results be faxed to our office. [facility] 12-23-2024 History of Presen t illness Narrative [...] of: LISA Lomeli documented in this encounter [facility] 11-25-2024 History of Presen t illness Narrative [...] or undercooked meat, and stay away from [facility]. Patient has been consulted regarding any further do's and don'ts of . Patient voiced understanding and all questions and concerns were answered. Patient will be sent to [facility] for advanced maternal age and has decided to have US with mfm rather than unity testing No orders of the defined types were placed in this encounter. Follow Up: Patient is to return in 4 weeks for routine OB appointment. Documented by Juanis Esparza MA on behalf of: Mik Borrego DO documented in this encounter [facility] 10-24-2024 History of Presen t illness Narrative [...] Diagnosis Date ADHD (attention deficit hyperactivity disorder) ([facility]) Anxiety Insulin resistance PCOS (polycystic ovarian syndrome) [...] or undercooked meat, and stay away from [facility]. Patient has also been advised to not [...] Larisa Chowdary MA documented in this encounter [facility] 09-16-2024 History of Presen t illness Narrative [...] nursing note reviewed. Exam conducted with a ham trimmer present. Vitals: Estimated body mass index is [...] Mik Borrego DO documented in this encounter [facility] 10-03-2022 Hospital Discharg e instructions Patient Education [...] water added (diluted fruit juice). Eat bland, imjy-lp-mrqhdv foods in small amounts as you are able. These foods include bananas, applesauce, rice, lean meats, toast, and crackers. Avoid fluids that contain a lot of sugar or caffeine, such as energy drinks, sports drinks, and soda. Avoid alcohol. Avoid spicy or fatty foods. General instructions Take dioq-kmg-whygume and prescription medicines only as told by your health care provider. Drink enough fluid to keep your urine pale yellow. Wash your hands often using soap and water. If soap and water are not available, use hand manager investment banking. Make sure that all people in your [...] eating and drinking to prevent dehydration. Take xikw-rkx-gojpnei and prescription medicines only as told by [...] 10/09/2006 Document Revised: 01/31/2020 Document Reviewed: 03/19/2019 [employer] Patient Education 2020 [employer]. 10/03/2022 13:10:32 Acute Pain, Adult Acute Pain, [...] Follow these instructions at home: Medicines Take uxax-hxd-ofncibr and prescription medicines only as told by [...] pain is severe. ?Do not take other evuy-ati-tqhmisg pain medicines in addition to prescription pain [...] grains, and fresh fruits and vegetables. ?Take ojhr-fki-xhgsiyc or prescription medicines. ?Limit foods that are [...] or you are no longer ill. Take twhf-eez-ldzilsj and prescription medicines only as told by [...] 10/23/2016 Document Revised: 02/24/2020 Document Reviewed: 02/24/2020 [employer] Patient Education 2020 [employer]. 10/03/2022 13:10:29 Dysmenorrhea Dysmenorrhea Dysmenorrhea refers to [...] to help relieve pain. General instructions Take obif-ifs-zirptul and prescription medicines only as told by [...] 10/09/2006 Document Revised: 09/21/2018 Document Reviewed: 11/11/2017 [employer] Patient Education 2020 [employer] 10/03/2022 13:10:26 Polycystic Ovarian Syndrome Polycystic Ovarian [...] produces. Follow these instructions at home: Take ragr-yab-gyzjkqe and prescription medicines only as told by [...] 02/02/2006 Document Revised: 09/21/2018 Document Reviewed: 03/26/2017 [employer] Patient Education 2020 [employer]. 10/03/2022 13:10:25 Ovarian Cyst Ovarian Cyst An [...] cyst. Follow these instructions at home: Take aupw-xsv-ahqtvus and prescription medicines only as told by [...] 10/09/2006 Document Revised: 01/07/2019 Document Reviewed: 03/12/2017 [employer] Patient Education 2019 [employer] Follow Up Care 10/03/2022 08:07:39 With:DONA DELAROSA CNP Address: [facility] [place] [address] When: Unknown [facility] [place] 05-12-2022 Hospital Discharg e instructions Patient Education [...] Follow these instructions at home: Medicines Take qfdv-gdw-aqkoilh and prescription medicines only as told by [...] to keep your urine pale yellow. ?Take aoyq-tlm-kxgrjlt or prescription medicines. ?Eat foods that are [...] and water are not available, use hand manager investment banking. ?Change your dressing as told by your [...] 10/09/2006 Document Revised: 04/11/2019 Document Reviewed: 04/11/2019 [employer] Patient Education 2020 [employer]. 05/12/2022 14:04:00 Laparoscopic Appendectomy, Adult Laparoscopic Appendectomy, [...] including vitamins, herbs, eye drops, creams, and bmec-xkg-ncirsix medicines. Use of steroids (by mouth or [...] provider tells you to take them. Taking ofxb-ytv-vccsasl medicines, vitamins, herbs, and supplements. General instructions [...] 05/23/2005 Document Revised: 04/11/2019 Document Reviewed: 04/11/2019 [employer] Patient Education 2020 [employer]. 05/12/2022 14:03:59 Appendicitis, Adult Appendicitis, Adult Appendicitis [...] to care for your incision. Medicines Take gjlt-xmr-adonbwi and prescription medicines only as told by [...] to keep your urine pale yellow. ?Take kulp-vsx-mswsjcm or prescription medicines. ?Eat foods that are [...] 10/09/2006 Document Revised: 03/27/2019 Document Reviewed: 03/27/2019 [employer] Patient Education 2020 [employer]. Follow Up Care 05/11/2022 22:41:15 With:Raman Russell DO Address: [address] [place] [phone] When: Unknown Comments:Call for followup appointment [facility] 05-12-2022 Evaluation + Plan note Extrac [...] Adult Author:Wiliam Diaz Jr., DO Date:05/12/22 Plan [place] [employer]hesi[employer] (ASA) physical status classification: [...] Date:06/14/2022 10:40:00 AM Scheduled Provider:Helene HAMILTON CNP Location:[facility] Appointment Type:FM Open Diagnostic Tests Pending * Basic Metabolic Panel 05/13/22 * CBC w/ Auto Diff 05/13/22 * PT & PTT 05/13/22 [facility]05-17-2022 Hospital Discharge instructions Patient Education 03/08/2022 [...] height. This can be done either in [place] ([place] or metric measurements. Note that charts are available to help you find your BMI quickly and easily without having to do these calculations yourself. To calculate your BMI in [place] ([place] measurements, your health care provider will: [...] medical problems. BMI can be measured using Dominican measurements or metric measurements. To interpret your [...] 06/20/2005 Document Revised: 09/21/2018 Document Reviewed: 08/22/2018 [employer] Patient Education 2020 [employer]. 03/08/2022 12:46:57 Health Maintenance, Female Health Maintenance, [...] 04/23/2012 Document Revised: 10/02/2019 Document Reviewed: 10/02/2019 [employer] Patient Education [employer]. Follow Up Care 02/21/2022 15:20:41 With:Helene HAMILTON CNP Address: [address] [place], [place] [id number] When:Within 1 Month(s) [facility] Primary Care Evaluation + Plan note Future Appointments Appointment Date:04/05/2022 11:20:00 AM Scheduled Provider:Helene HAMILTON CNP Location:[facility] Appointment Type: Open [facility] Primary Care Evaluation + Plan note Future Appointments Appointment Date:02/17/2025 01:00:00 PM Scheduled [facility]: [facility] Type:CV Echo () Future Scheduled Tests Radiology* Echo Transthoracic Complete 02/17/25 [facility] Evaluation note* Diagnosis Well woman exam with routine gynecological exam Routine gynecological examination [facility] Diagnosis Missed menses 7 weeks gestation of , unspecified gestational age Encounter for supervision of normal first in first trimester [facility]* Diagnosis First trimester state, incidental 11 weeks gestation of documented in this encounter [facility]* Diagnosis Screening, , for anatomic [...] weeks gestation of [facility] Diagnosis Chronic hypertension affecting - Primary Advanced maternal age in multigravida, second trimester Prediabetes in mother during Gestational diabetes mellitus (GDM), antepartum, gestational diabetes method of control unspecified [facility] Diagnosis 20 weeks gestation of Second trimester state, incidental Diabetes mellitus screening Screening for diabetes mellitus Elevated blood pressure affecting , antepartum Gestational diabetes mellitus (GDM), antepartum, gestational diabetes method of control unspecified Elevated glucose tolerance test Impaired glucose tolerance test induced hypertension, antepartum Transient hypertension of , antepartum Antepartum multigravida of advanced maternal age documented in this encounter [facility]* Diagnosis Second trimester state, incidental 24 weeks gestation of [facility]* Diagnosis Chronic hypertension affecting - Primary Advanced maternal age in multigravida, second trimester Gestational diabetes mellitus (GDM), antepartum, gestational diabetes method of control unspecified [facility] Diagnosis Gestational diabetes mellitus (GDM), antepartum, gestational diabetes method of control unspecified Multigravida of advanced maternal age in third trimester Third trimester state, incidental 28 weeks gestation of documented in this encounter [facility]* Diagnosis Chronic hypertension affecting - Primary Gestational diabetes mellitus (GDM), antepartum, gestational diabetes method of control unspecified [facility] Diagnosis Third trimester (HHS-HCC) state, [...] unspecified type [facility] Diagnosis 33 weeks gestation of (HHS-HCC) Third trimester (HHS-HCC) state, incidental High blood pressure affecting in third trimester, antepartum (HHS-HCC) induced hypertension, antepartum (HHS-HCC) Transient hypertension of , antepartum [facility] Narrative No data available for this section [facility] Primary Care Hospital Discharge instructions No data available for this section [facility] Primary Care InstructionsNot on filedocumented in this [...] note No data available for this section [facility] Summary Purpose Family History No Family [...] section and content) DATE CREATED AUTHOR 05/26/2020 [facility] DATE CREATED AUTHOR AUTHOR'S ORGANIZ ATION 01/28/2025 [place] [facility] DATE CREATED AUTHOR AUTHOR'S ORGANIZ ATION 02/06/2025 Ram[facility]rez Donley [facility] ical Center DATE CREATED AUTHOR AUTHOR'S ORGANIZ ATION 02/26/2025 Ram[facility] Scar [facility] ical Center DATE CREATED AUTHOR AUTHOR'S ORGANIZ ATION 04/01/2025 [facility] DATE CREATED AUTHOR AUTHOR'S ORGANIZ ATION 05/04/2025 [facility] EPIC Care Team (unrecognized sect ion and content) Personnel Name: Helene HAMILTON CNP Address: [address] [place] [address] Personnel Name: Helene HAMILTON CNP Address: [address] [place] [address] Personnel Name: Helene HAMILTON CNP Address: Address: [address] [place] [address] Personnel Name: Helene HAMILTON CNP Address: Address: [address] [place] [address] Personnel Name: Helene HAMILTON CNP Address: Address: [address] [place] [address] Personnel Name: NONE, XXXX Address: [facility] Personnel Name: NONE, XXXX Address: [facility] Personnel Name: NONE, XXXX Address: [facility] Reason for Visit (unrecogniz ed section and content) Reason Comments Well Women Visit Reason Comments Amenorrhea Reason Comments Routine Visit Reason Comments AMA Reason Comments Routine Visit Reason Comments Routine Visit Blood Pressure Check FOR RECORDS PERTAINING TO PATIENTS WHO ARE [...] BE BASED ON THE PRIMARY CLINICAL RECORDS. [facility]. provides no warranty or guarantee of the accuracy or completeness of information in this document.
[2025-05-06 08:56] VITALS: BP 172/96; PULSE 75
[2025-05-06 09:33] VITALS: BP 140/84; PULSE 85
== END 2025-05-06 10:12 | disposition home or self-care (01) ==
LOC: US 07:58 → FBC 08:01
PROVIDERS: Visit Provider Obstetrics & Gynecology
DX: O24.419 Gestational diabetes mellitus in pregnancy, unspecified control (principal); O16.3 Unspecified maternal hypertension, third trimester; Z3A.34 34 weeks gestation of pregnancy
CPT/HCPCS: 76818

== ENCOUNTER 2025-05-07 09:59 | Outpatient (OUT) | payer BC, SELFPAY ==
--- OUTSIDE RECORDS SUMMARY | 2013-09-18 06:00 | XMS_ITS | Continuity of Care Document ---
Author Organization [facility] Address [address] [place] [address], [address] [place] [address] Phone Care Team Providers Care Striker Off Name Role Phone Eva Arias MD Unavailable [...] Active Procedures Procedure Date Office Visit - STEAM CLEANING MACHINE OPERATOR Extended Advance Directives Directive Yes / No Effective Date File Name No Information Encounters Encounter Description Practice Location Reason(s) For Visit Diagnoses Date Provider Providers Copied on Encounter Office Visit - STEAM CLEANING MACHINE OPERATOR Extended [facility], [address] [place] [address], [address], [place], [place], [id number], tel:[phone] [facility] gear machinist consult (chief complaint) Family planningAcne 3 Hugo Velasquez. [address] [place] [address], [address], [place], [id number]. tel:[phone] Referring Provider: Eva Arias MD, [address] [place] [address] [address], [place], [address]. tel:[phone] Family History Family Member Type Diagnosis Age At Onset No Information Payers Payer name Insurance type Covered democrat ID Authoriza tidon(s) Prime / Durga CI [id number] Social History Type Description Quantity Date Captured [...] For Visit From encounter dated '09/18/2013 10:00'. gear machinist consult (chief complaint). Description: The symptoms are [...] Date Complaint History Of Prese nt Illness gear machinist consult The symptoms are reported as being [...] Mental Status Date Cognitive Assessment Orientation - [place] ed to time, place, person, situation. Patient Care Teams Name Effective Dates (start - stop) Status Members No Information
--- OUTSIDE RECORDS SUMMARY | 2024-05-20 04:15 | XMS_ITS ---
Author Organization [facility] Address [address] [facility] [place] [place] [address] Care Team Providers Care Monorail Charger Operator Name Role Phone Olimpia Cruz Primary Care Provider [phone] Steven Shane Unavailable [phone] REASON FOR VISIT MED RECHECK-AC Encounters Encounter Location Date Provider Diagnosis [facility] [address] [place] [address] 2023 Steven Shane Plan Of Treatment No Information Progress Notes * SEDALEDOB:1990 (34 yo F)Acc No.[id number]:05/20/2024 Behavioral Health Patient: LE ALCALA Provider: LARRY Sanders :1990 A ge:33 Y S ex:Female Date:05/20/2024 Address:[address] [place], [place] [id number] Pcp:Olimpia Cruz Subjective: * Chief Complaints: * 1 . MED RECHECK-AC. * Medical History: Objective: * Vitals: Assessment: Plan: * Treatment: * Images: * Electronic signature of LARRY Linder on 05/07/2025 at 10:02 AM EDT Sign off status: Pending * Provider: LARRY Sanders Date: 05/20/2024 Generated for Printi ng/Faxing/eTransmitting on: 05/07/2025 10:02 AM EDT
--- OUTSIDE RECORDS SUMMARY | 2024-06-04 10:45 | XMS_ITS ---
Author Organization [facility] Address [address] [facility] [place] [address] Care Team Providers Care Utilities Service Investigator Name Role Phone Olimpia Cruz Primary Care Provider [phone] Diane Perdomo [phone] REASON FOR VISIT DISCUSS ASTHMA FLARE-AC Encounters Encounter Location Date Provider Diagnosis [address] [place] [address] 06/04/2024 Diane Perdomo Plan Of Treatment No Information Progress Notes * LE STACKDOB:1990 (34 yo F)Acc No.[id number]:06/04/2024 Progress Notes Patient: LE ALCALA Appointment Provider: Jose Perdomo NP :1990 A ge:33 Y S ex:Female Date:06/04/2024 Address:[address] [place], [place] [phone] Pcp:Olimpia Cruz Subjective: * Chief Complaints: * 1 . DISCUSS ASTHMA FLARE-AC. * Medical History: Objective: * Vitals: Assessment: Plan: * Treatment: * Images: * Electronic signature of Ryan Perdomo CNP on 05/07/2025 at 10:02 AM EDT Sign off status: Pending * Appointment Provider: Jose Perdomo NP Date: 06/04/2024 Generated for Printi ng/Faxing/eTransmitting on: 05/07/2025 10:02 AM EDT
--- OUTSIDE RECORDS SUMMARY | 2025-04-30 14:00 | XMS_ITS | Encounter Summary ---
Author Organization [facility] Address [address] [place] [address] Care Team Providers Care Rv Mechanic Name Role Phone Unavailable Primary Care Provider Unavailabl e Reason for Visit * Reason Comments Routine Visit Blood Pressure Check Encounter Details Date Type Department Care Team (Late st Contact Info) Description 04/30/2025 2:00 PM EDT Routine [facility] BCP OB [address] [facility] [place] [phone] Lindsey Guajardo PA [address] [place] [address] 33 weeks gestation of (HHS-HCC); Third trimester [...] to check FSBS. Blood Glucose Monitoring Suppl ([employer] Glucometer) w/Device kit 1 kit, Does not [...] gestational diabetes mellitus (GDM) in third trimester ([facility]) 04/21/2025 Multigravida of advanced maternal age in [...] weeks gestation of ([facility]) Z3A.33 POCT urinalysis dipstick manually resulted 2. Third trimester ([facility]) Z34.93 POCT urinalysis dipstick manually resulted 3. High blood pressure affecting in third trimester, antepartum ([facility]) O16.3 Patient presents today for headaches, [...] AM EDT Routine [facility] BCP OB [address] [facility] [place] [phone] Mik Borrego, [address] [place] [address] 05/19/2025 9:40 AM EDT Routine [facility] BCP OB [address] [place] [address] [place] [phone] Mik Borrego [facility] [place] [address] Scheduled Orders Name Type Priority Associated Diagnoses Orde r Schedule Creatinine Lab Routine induced hypertension, antepartum ([facility]) Expected: 04/30/2025 (Approximate), Expires: 04/30/2026 Protein, urine, 24 hour Lab Routine induced hypertension, antepartum (HHS-HCC) Expected: 04/30/2025 (Approximate), Expires: 04/30/2026 Pt and ptt Lab Routine induced hypertension, antepartum ([facility]) Expected: 04/30/2025, Expires: 04/30/2026 CBC and differential Lab Routine induced hypertension, antepartum ([facility]) Expected: 04/30/2025 (Approximate), Expires: 04/30/2026 Uric acid Lab Routine induced hypertension, antepartum ([facility]) Expected: 04/30/2025 (Approximate), Expires: 04/30/2026 Lactate dehydrogenase Lab Routine induced hypertension, antepartum ([facility]) Expected: 04/30/2025, Expires: 04/30/2026 ALT Lab Routine induced hypertension, antepartum ([facility]) Expected: 04/30/2025 (Approximate), Expires: 04/30/2026 AST Lab Routine induced hypertension, antepartum ([facility]) Expected: 04/30/2025 (Approximate), Expires: 04/30/2026 BUN Lab Routine induced hypertension, antepartum ([facility]) Expected: 04/30/2025, Expires: 04/30/2026 documented as [...]
--- OUTSIDE RECORDS SUMMARY | 2025-05-05 09:10 | XMS_ITS | Encounter Summary ---
Author Organization [facility] Address [address] [place] [address] Care Team Providers Care Clinical Support Associate Name Role Phone Unavailable Primary Care Provider Unavailabl e Reason for Visit * Reason Comments Routine Visit Encounter Details Date Type Department Care Team ([facility] Contact Info) Description 05/05/2025 9:10 AM EDT Routine [facility] OB [address] [facility] [place] [phone] Mik Borrego, DO [address] [facility] [place] [address] 34 weeks gestation of ([facility]); Third trimester ([facility]); High blood pressure affecting in third trimester, antepartum ([facility]); induced hypertension, antepartum ([facility]); Insulin controlled gestational diabetes mellitus (GDM) in third trimester ([facility]-H[facility]); Multigravida of advanced maternal age in third trimester ([facility]-HCC); Gestational diabetes mellitus (GDM), antepartum, gestational diabetes method of control unspecified ([facility]) Social History Tobacco Use Types Packs/Day Years [...] Sign Reading Time Taken Comments Blood Pressure 140/86 05/05/2025 9:20 AM EDT 130/86- recheck Pulse - - Temperature - - Respiratory Rate - - Oxygen Saturation - - Inhaled Oxygen Concentration - - Weight 98 kg (216 lb 1.9 oz) 05/05/2025 9:20 AM EDT Height - - Body Mass Index 33.85 05/06/2024 3:23 PM EDT documented in this encounter Progress Notes * Kimi Buckner, [employer] - 05/05/2025 9:10 AM EDT Reason for Appointment: Patient ID: Julissa [...] Diagnosis Date Noted Vaginal bleeding affecting early ([facility]) 11/06/2024 headache, antepartum ([facility]) 12/25/2024 Elevated blood pressure affecting , antepartum ([facility]) 01/16/2025 Insulin controlled gestational diabetes mellitus (GDM) in third trimester ([facility]) 04/21/2025 Multigravida of advanced maternal age in third trimester ([facility]) 04/21/2025 Hypertension 04/21/2025 Third trimester ([facility]) 04/21/2025 Resolved Ambulatory Problems Diagnosis Date Noted No Resolved Ambulatory Problems Past Medical History: Diagnosis Date ADHD (attention deficit hyperactivity disorder) Anxiety Gestational diabetes ([facility]) Insulin resistance PCOS (polycystic ovarian syndrome) HISTORY PAST MEDICAL HISTORY SOCIAL HISTORY Past Medical History: Diagnosis Date ADHD (attention deficit hyperactivity disorder) Anxiety Gestational diabetes ([facility]) Hypertension Insulin resistance PCOS (polycystic ovarian [...] nursing note reviewed. Exam conducted with a information delivery analyst present. Vitals: Estimated body mass index is 33.85 kg/m² as calculated from the following: Height as of 24: 5' 7 . Weight as of this encounter: 216 lb 1.9 oz. BP: 140/86 Patient's last menstrual period was 08/23/2024. ASSESSMENT & PLAN ICD-10-CM 1. 34 weeks gestation of ([facility]) Z3A.34 POCT urinalysis dipstick manually resulted 2. Third trimester ([facility]) Z34.93 POCT urinalysis dipstick manually resulted 3. High blood pressure affecting in third trimester, antepartum ([facility]) O16.3 4. induced hypertension, antepartum ([facility]) O13.9 5. Insulin controlled gestational diabetes mellitus (GDM) in third trimester ([facility]) O24.414 6. Multigravida of advanced maternal age in third trimester ([facility]) O09.523 7. Gestational diabetes mellitus (GDM), antepartum, gestational diabetes method of control unspecified ([facility]) O24.419 Patient presents today for a routine obstetrics appointment. Patient is currently 34w4d with a Estimated Date of Delivery: 06/12/25. Patient will increase HS dosage of NPH by 5 units , which would bring her to 15 units total at HS--per patient on what she is currently taking. Patient to return to clinic in 1 week for routine OB appointment. Patient to continue with current NST/BPP/growth scan plan. Documented by Kimi Buckner LPN on behalf of: Mik Borrego DO documented in this encounter Plan of Treatment Upcoming Encounters Date Type Department Care Team (Late st Contact Info) Description 05/12/2025 9:10 AM EDT Routine [facility] OB [address] [facility] [place] [address] Mik Borrego DO [address] [place] [address] 05/19/2025 9:40 AM EDT Routine [facility] OB [address] [facility] [place] [address] ElmoMik parikh, DO [address] [place] [address] Dr [place], [place] [id number] documented as of this encounter Procedures Procedure Name Priority Date/Time Associated Diagnosis Comments POCT URINALYSIS DIPSTICK Routine 05/05/2025 10:56 AM EDT 34 weeks gestation of ([facility]) Third trimester ([facility]) documented in this encounter Results * (ABNORMAL) POCT urinalysis dipstick manually resulted (05/05/2025 10:56 AM EDT) Color, UA Yellow Clarity, UA Clear Glucose, UA Negative Negative - 2000(110) ++++ mg/dL Bilirubin, UA Negative Negative - 4(70) +++ mg/dL Ketones, UA Positive Negative - 160(16) ++++ mg/dL Comment:15 Spec Grav, UA 1.010 1 - 1.03 Blood, UA Negative Negative - 50 Albin/mcL pH, UA 7.0 5 - 9 Protein, UA Negative Negative - 2000(20) ++++ mg/dL Urobilinogen, UA 0.2 0.2 - 12 mg/dL Leukocytes, UA Negative Negative - 500+++ Jack/mcL Nitrite, UA Negative Negative - Positive Urine 05/05/2025 10:5 6 AM EDT Mik Borrego DO POINT OF CARE TEST ENTER/EDIT OR DERABLES Final Result documented in this encounter Visit Diagnoses Diagnosis 34 weeks gestation of ([facility]) Third trimester ([facility]) state, incidental High blood pressure affecting in third trimester, antepartum ([facility]) induced hypertension, antepartum ([facility]) Transient hypertension of , antepartum Gestational diabetes mellitus (GDM), antepartum, gestational diabetes method of control unspecified ([facility]) Multigravida of advanced maternal age in third trimester ([facility]) documented in this encounter
--- NOTE | 2025-05-07 | US_ITS ---
The [address] [address] Patient Name: LE STACK MRN: [id number] date: 1990 Sex: F Assigned Patient Location: Current Patient Location: Accession/Order Number: [id number] Exam Date: 05/07/2025 12:16 Report Date: 05/07/2025 12:17 At the request of: NEHA CAMPBELL DO Procedure: US OB BPP w non-stress BIOPHYSICAL PROFILE: CLINICAL INFORMATION: GESTATIONAL DIABETES MELLITUS O24.419 COMPARISON: 05/06/2025 There is a single live intrauterine gestation in cephalic presentation. The reported gestational age is 34 weeks 6 days. The heart rate measures 159 beats per minute. FINDINGS: TONE: 1 or more episodes of activity extension and flexion of extremity or opening and closing of the hand [Y] 2/2 GROSS BODY MOVEMENTS: 3 or more discrete body or limb movements [Y] 2/2 BREATHING MOVEMENTS: 1 or more episodes of breathing lasting at least 30 seconds [Y] 2/2 SARA: A single deepest vertical pocket of amniotic fluid greater than 2 cm [Y] 2/2 SARA: 13.4 cm. Total score: 8/8 US/US OB BPP w non-stress IMPRESSION: NORMAL BIOPHYSICAL PROFILE Impression dictated by: Mariam Olivares M.D. 05/07/2025 12:17 PM Dictation Location: [place] [address] Electronically authenticated by: [id number] Y Date: 05/07/2025 12:17
--- OUTSIDE RECORDS SUMMARY | 2025-05-07 10:02 | XMS_ITS | Encounter Summary ---
Author Organization [facility] Address [address] [place] [address] Care Team Providers Care Stockroom Attendant Name Role Phone Unavailable Primary Care Provider Unavailabl e Encounter Details Date Type Department Care Team (Late st Contact Info) Description 04/23/2025 Clinisync Result Encounter [facility] External Department Unsolicited Neha Borrego, DO [address], [facility] Social History Tobacco Use Types Packs/Day [...] [facility] [place] [place] [address] [place] [id number] Neha Borrego, DO [address], [facility]11 05/19/2025 9:40 AM EDT Routine [facility] [address] [place] [address] Neha Borrego, DO [address], [facility]11 documented as of this encounter Procedures Procedure Name Priority Date/Time Associated Diagnosis Comments US OB BPP W NON-STRESS 04/23/2025 8:03 AM EDT documented in this encounter Results * US OB BPP W NON-STRESS (04/23/2025 8:03 AM EDT) Anatomical Region Laterality Modality Other 04/23/2025 8:03 AM EDT Narrative 04/23/2025 9:46 [place] [address] Ultrasound Report Signed Patient: LE WEEMS MR#: [id number] : 1990 Acct:[id number] Age/Sex: 34 / F ADM Date: 04/22/25 Loc: US Attending Dr: Neha Borrego D.O. Ordering Physician: Neha Borrego D.O. Date of Service: 04/22/25 Procedure(s): US OB BPP w non-stress Accession Number(s): [id number] cc: Neha Borrego D.O.; Physician,Non-Staff M.David The [address] [address] Patient Name: LE WEEMS MRN: [id number] date: 1990 Sex: F Assigned Patient Location: US Current Patient Location: Accession/Order Number: [id number] Exam Date: 04/23/2025 08:01 Report Date: 04/23/2025 [...] Olivares M.D. 04/23/2025 8:03 AM Dictation Location: [place] [address] Electronically authenticated by: [id number] Y Date: 04/23/2025 08:03 Dictated By: Mariam Olivares M.D. Signed By: 04/23/25 0946 DD/ 08 TD/TT: Training Program Assistant: Procedure Note Radiology, Radiologist, - 04/23/2025 [place] [address] Ultrasound Report Signed Patient: LE WEEMSMR#: [id number] : 1990Acct:[id number] Age/Sex: 34 / FADM Date: 04/22/25 Loc: US Attending Dr: Neha Borrego D.O. Ordering Physician: Neha Borrego D.O. Date of Service: 04/22/25 Procedure(s): US OB BPP w non-stress Accession Number(s): [id number] cc: Neha Borrego D.O.; Physician,Non-Staff Dileep The [place] [id number] Patient Name: LE WEEMS MRN: [id number] date: 1990 Sex: F Assigned Patient Location: US Current Patient Location: Accession/Order Number: [id number] Exam Date: 04/23/2025 08:01 Report Date: 04/23/2025 [...] Olivares M.D. 04/23/2025 8:03 AM Dictation Location: [place] [address] Electronically authenticated by: [id number] Y Date: 508:03 Dictated By: Mariam Olivares M.D. Signed By:04/23/25 0946 DD/ 0803 TD/TT: Training Program Assistant: us Neha Borrego DO [facility] Final Result documented in this encounter Visit Diagnoses Not on filedocumented in this encounter
--- OUTSIDE RECORDS SUMMARY | 2025-05-07 10:02 | XMS_ITS | Encounter Summary ---
Author Organization [facility] Address [address] [place] [address] Care Team Providers Care Frame Builder Name Role Phone Unavailable Primary Care Provider Unavailabl e Encounter Details Date Type Department Care Team (Late st Contact Info) Description 01/21/2025 Abstract [facility] OB [address] [place] [address] Mik Borrego DO [facility] [address], [facility]11 Social History Tobacco Use Types Packs/Day Years [...] Routine [facility] BCP OB [address] [place] [address] Mik Borrego, DO [address], [id number] 05/19/2025 9:40 AM EDT Routine [facility] OB [address] [place] [address] Mik Borrego DO [facility] [address], [facility]11 documented as of this encounter Visit Diagnoses Not on filedocumented in this encounter
--- OUTSIDE RECORDS SUMMARY | 2025-05-07 10:02 | XMS_ITS | Encounter Summary ---
Author Organization [facility] Address [address] [place] [address] Care Team Providers Care Vice President Mission Integration Name Role Phone Unavailable Primary Care Provider Unavailabl e Encounter Details Date Type Department Care Team (Late st Contact Info) Description 01/22/2025 Abstract [facility] B[facility] OB [address] [place] [address] Mik Borrego DO [facility] [address], [facility]11 Social History Tobacco Use Types Packs/Day Years [...] [address] Mik Borrego, DO [address], [facility] 05/19/2025 9:40 AM EDT Routine [facility] BCP OB [address] [place] [address] Mik Borrego DO [facility] [address], [facility]11 documented as of this encounter Visit Diagnoses Not on filedocumented in this encounter
--- OUTSIDE RECORDS SUMMARY | 2025-05-07 10:02 | XMS_ITS | Clinical Summary ---
Author Organization [facility] Address [address] [place] [address] Care Team Providers Care Tool Pusher Name Role Phone Unavailable Primary Care Provider [...] antepartum, gestational diabetes method of control unspecified ([facility]),Elevat ed glucose tolerance test 1 kit in the morning and 1 kit at noon and 1 kit in the evening and 1 kit before bedtime. 1 kit 05/05/20 25 Active Problems Problem Noted Date Diagnosed Date Insulin controlled gestation al diabetes mellitus (GDM) in third trimester ([facility]) 04/21/2025 Multigravida of advanced mat ernal age in third trimester ([facility]) 04/21/2025 Hypertension 04/21/2025 Third trimester ([facility]) 04/21/2025 Elevated blood pressure affe cting , antepartum ([facility]) 01/16/2025 headache, antepartum ([facility]) 025 Vaginal bleeding affecting early ([facility]) 11/06/2024 Estimated Date of Delivery Comme nts Yes 06/12/2025 Based on Ultraso und Encounters Date Type Department Care Team Description 05/06/2025 Clinisync Result Encounter NOMS External Department Unsolicited Neha Borrego DO 05/05/2025 9:10 AM EDT Routine NOMS [address] [place] [address] Neha Borrego, 34 weeks gestation of ([facility]); Third trimester ([facility]); High blood pressure affecting in third trimester, antepartum ([facility]); induced hypertension, antepartum ([facility]); Insulin controlled gestational diabetes mellitus (GDM) in third trimester ([facility]); Multigravida of advanced maternal age in third trimester ([facility]); Gestational diabetes mellitus (GDM), antepartum, gestational diabetes method of control unspecified ([facility]) 05/05/2025 Abstract [address] [address] [place] [address] Neha Borrego, 05/05/2025 Bamboo flowsheet NOMS [address] [place] [place] [address] Neha Borrego, 04/30/2025 2:00 PM EDT Routine [facility] BCP OB [address] [place] [phone] Lindsey Guajardo PA 33 weeks gestation of ([facility] Third trimester ([facility]); High blood pressure affecting in third trimester, antepartum ([facility]); induced hypertension, antepartum ([facility]) 04/30/[address] [place] [address] Juanis Esparza MA 04/30/2025 Clinisync Result Encounter NOMS External Department Unsolicited ElmoNeha parikh, DO 04/30/2025 Clinisync Result Encounter NOMS External Department Unsolicited ElmoNeha parikh, DO 04/23/2025 Clinisync Result Encounter NOMS External Department Unsolicited Neha Borrego, DO 04/22/2025 Abstract [facility] [address] [place] [address] Neha Borrego, 04/21/2025 3:20 PM EDT Routine NOMS [address] [place] [address] Neha Borrego, Third trimester ([facility]); 32 weeks gestation of ([facility]); Insulin controlled gestational diabetes mellitus (GDM) in third trimester ([facility]); Multigravida of advanced maternal age in third trimester ([facility]); Hypertension, unspecified type 04/21/2025 Bamboo flowsheet NOM[facility] [address] [place] [address] Neha Borrego, 04/14/2025 9:00 AM EDT Routine [facility]OMS [address] [place] [address] Neha Borrego, Third trimester ([facility]); 31 weeks gestation of ([facility]) 04/14/2025 Bamboo flowsheet [facility]OM[facility] [address] [place] [address] Neha Borrego, 04/09/2025 Telephone [facility] BCP OB [address] [facility] [place] [address] Mima OwusuSUSAN 04/08/2025 11:10 AM EDT Routine NOMS BCP OB [address] [facility] [place] [address] Neha Borrego, Third trimester ([facility]); 30 weeks gestation of ([facility]); Gestational diabetes mellitus (GDM), antepartum, gestational diabetes method of control unspecified ([facility]) 04/08/2025 Bamboo flowsheet NOMS BCP OB [address] [facility] [place] [address] Neha Borrego, 04/01/2025 Abstract [facility] BCP OB [address] [facility] [place] [address] Juanis EsparzaSAN DIEGO, MA 03/24/2025 11:10 AM EDT Routine [facility] BCP OB [address] [facility] [place] [address] Neha Borrego, Gestational diabetes mellitus (GDM), antepartum, gestational diabetes method of control unspecified ([facility]); Multigravida of advanced maternal age in third trimester ([facility]); Third trimester ([facility]); 28 weeks gestation of ([facility]) 03/24/2025 Bamboo flowsheet NOMS BCP OB [address] [facility] [place] [address] Neha Borrego DO 03/21/2025 Refill [facility] BCP OB [address] [facility] [place] [address] Neha Borrego, headache, antepartum ([facility]) 03/04/2025 Abstract [facility] BCP OB [address] [facility] [place] [address] Juanis Epsarza CA 02/24/2025 10:20 AM EDT Routine [facility] BCP OB [address] [facility] [place] [address] Neha Borrego DO Second trimester ([facility]); 24 weeks gestation of ([facility]) 02/24/2025 Bamboo flowsheet NOMS [address] [place] [address] Neha Borrego DO 02/18/[address] [address] [place] [address] Larisa Chowdary MA 02/05/2025 Abstract [facility] [address] [place] [address] Neha Borrego DO from Last 3 Months Family History Medical [...] Description 05/12/2025 9:10 AM EDT Routine [facility] [address] [place] [address] Neha Borrego DO [address] [place] [address] 05/19/2025 9:40 AM EDT Routine [facility]CP OB [address] [facility] [place] [place] [phone] Neha Borrego, DO [address] [place], [place] [phone] Health Maintenance Due Date Last Done Comments Influenza Vaccine (#1) 2025 Cervical Cancer Screening 09/16/2029 HPV/Cotest 09/16/2029 08/05/2020 Pap Smear 09/16/2029 09/16/2024 Procedures Procedure Name Priority Date/Time Associated Diagnosis Comments US OB BPP W NON-STRESS 05/06/2025 9:29 AM EDT POCT URINALYSIS DIPSTICK Routine 05/05/2025 10:56 AM EDT 34 weeks gestation of ([facility]) Third trimester ([facility]) TBH URINE T PROTEIN CREAT RATIO Routine 04/30/2025 4:30 PM EDT ALL URIC ACID Routine 04/30/2025 3:08 PM EDT ALL LDH Routine 04/30/2025 3:08 PM EDT [facility]CF CMP (CMP) (FOR REMOTE [facility] USE) Routine 04/30/2025 3:08 PM EDT ALL CBC WITH AUTO DIFF Routine 04/30/2025 3:08 PM EDT POCT URINALYSIS DIPSTICK Routine 04/30/2025 2:19 PM EDT 33 weeks gestation of ([facility]) Third trimester ([facility]) US OB BPP W NON-STRESS 04/30/2025 7:10 AM EDT US OB GROWTH 04/30/2025 7:10 AM EDT US OB BPP W NON-STRESS 04/23/2025 8:03 AM EDT POCT URINALYSIS DIPSTICK Routine 04/21/2025 3:40 PM EDT Third trimester ([facility]) POCT URINALYSIS DIPSTICK Routine 04/14/2025 9:09 AM EDT Third trimester ([facility]) 31 weeks gestation of ([facility]) POCT URINALYSIS DIPSTICK Routine 04/08/2025 11:35 AM EDT Third trimester ([facility]) POCT URINALYSIS DIPSTICK Routine 03/24/2025 11:50 AM EDT Gestational diabetes mellitus (GDM), antepartum, gestational diabetes method of control unspecified ([facility]) POCT URINALYSIS DIPSTICK Routine 02/24/2025 10:57 AM EDT Second trimester ([facility]) 24 weeks gestation of ([facility]) PAP SMEAR Routine 09/16/2024 12:00 AM EST THINPREP TIS PAP REFLEX HPV MRNA E6/E7 (07433) Routine 08/05/2020 from Last 3 Months or Most Recently Relevant to Health Maintenance Results * US OB BPP W NON-STRESS (05/06/2025 9:29 AM EDT) Only the most recent of3 resultswithin the time period is included. Anatomical Region Laterality Modality Other 05/06/2025 9:29 AM EDT Narrative 05/06/2025 9:32 AM EDT [address] [address] Ultrasound Report Signed Patient: LE WEEMS MR#: [id number] : 1990 Acct:[id number] Age/Sex: 34 / F ADM Date: 05/06/25 Loc: [facility] 250-[address]: Neha Borrego D.O. Ordering Physician: Neha Borrego D.O. Date of Service: 05/06/25 Procedure(s): US OB BPP w non-stress Accession Number(s): [id number] cc: Neha Borrego D.O.; Physician,Non-Staff Dileep [place] [id number] Patient Name: LE WEEMS MRN: [facility]:[id number] date: 1990 Sex: F Assigned Patient Location: [facility] Current Patient Location: [facility] Accession/Order Number: [id number] Exam Date: 05/06/2025 09:07 Report Date: 05/06/2025 09:29 At the request of: NEHA BORREGO DO Procedure: US OB BPP w non-stress BIOPHYSICAL PROFILE: CLINICAL INFORMATION: Gestational diabetes mellitus O 24.419 COMPARISON: 04/29/2025 There is a single live intrauterine gestation in cephalic presentation. The reported gestational age is 34 weeks 5 days. The heart rate measures 161 beats per minute. FINDINGS: TONE: 1 or more episodes of activity extension and flexion of extremity or opening and closing of the hand [Y] 2/2 GROSS BODY MOVEMENTS: 3 or more discrete body or limb movements [Y] 2/2 BREATHING MOVEMENTS: 1 or more episodes of breathing lasting at least 30 seconds [Y] 0/2 SARA: A single deepest vertical pocket of amniotic fluid greater than 2 cm [Y] 2/2 SARA: 14.3 cm Total score: 6/8 US/US OB BPP w non-stress IMPRESSION: FAILED BIOPHYSICAL PROFILE WITH NO BREATHING OBSERVED Impression dictated by: Mariam Olivares M.D. 05/06/2025 9:29 AM Dictation Location: [place] [address] Electronically authenticated by: [id number] Y Date: 05/06/2025 09:29 Dictated By: Mariam Olivares M.D. Signed By: 05/06/2532 DD/ 09 TD/TT: Palm And Back Forger: Procedure Note Radiology, Radiologist, - 05/06/2025 The [place] [id number] Ultrasound Report Signed Patient: LE WEEMS RMR#: [id number] : 1990Acct:[id number] Age/Sex: 34 / FADM Date: 05/06/25 Loc: [facility] 250-[address]: Neha Borrego D.O. Ordering Physician: Neha Borrego D.O. Date of Service: 05/06/25 Procedure(s): US OB BPP w non-stress Accession Number(s): [id number] cc: Neha Borrego D.O.; Physician,Non-Staff Dileep The [address] [address] Patient Name: LE WEEMS MRN: [facility]:[id number] date: 1990 Sex: F Assigned Patient Location: [facility] Current Patient Location: [facility] Accession/Order Number: [id number] Exam Date: 05/06/2025 09:07 Report Date: 05/06/2025 09:29 At the request of: NEHA BORREGO DO Procedure: US OB BPP w non-stress BIOPHYSICAL PROFILE: CLINICAL INFORMATION: Gestational diabetes mellitus O 24.419 COMPARISON: 04/29/2025 There is a single live intrauterine gestation in cephalic presentation.The reported gestational age is 34 weeks 5 days. The heart ratemeasures 161 beats per minute. FINDINGS: TONE: 1 or more episodes of activity extension and flexion of extremity or opening and closing of the hand [Y] 2/2 GROSS BODY MOVEMENTS: 3 or more discrete body or limb movements [Y] 2/2 BREATHING MOVEMENTS: 1 or more episodes of breathing lastingat least 30 seconds [Y] 0/2 SARA: A single deepest vertical pocket of amniotic fluid greater than 2 cm [Y] 2/2 SARA: 14.3 cm Total score: 68 US/US OB BPP w non-stress IMPRESSION: FAILED BIOPHYSICAL PROFILE WITH NO BREATHING OBSERVED Impression dictated by: Mariam Olivares M.D. 05/06/2025 9:29 AM Dictation Location: [place] [address] Electronically authenticated by: [id number] Y Date: 9:29 Dictated By: Mariam Olivares M.D. Signed By:05/06/2532 DD/ 8 TD/TT: Palm And Back Forger: [facility] DO CLIN[facility] IMAGING Final Result * (ABNORMAL) POCT urinalysis dipstick manually resulted [...] Positive Urine 05/05/2025 10:5 6 AM EDT [facility] Elmo DO POINT OF CARE TEST ENTER/EDIT [...] (ABNORMAL) [facility] CMP (CMP) (FOR REMOTE [facility] USE) (04/30/2025 3:08 PM EDT) SODIUM 143 136 - 145 mmol/L TBH POTASSIUM 3.4(L) 3.5 - 5.1 mmol/L TBH CHLORIDE 106 98 - 107 mmol/L TBH CARBON DIOXIDE 22.6 21.0 - 32.0 mmol/L TBH ANION GAP 17.8 TBH GLUCOSE 108(H) 74 - 106 mg/dL TBH BLOOD UREA NITROGEN 9.0 7.0 - 18.0 mg/dL TBH CREATININE 0.60 0.55 - 1.02 mg/dL TBH TBH EGFR-AF [place] >60 >=60 mL/min/1. 73m 2 TBH TBH EGFR-NON AF [place] >60 >=60 mL/min/1. 73m 2 TBH BUN [...] - 04/30/2025 3:43 PM EDT us Neha Jaino DO CLINISYNC Final Result CLINISYNC [facility] * ALL URIC ACID (04/30/2025 3:08 PM EDT) Pathologist [facility] URIC ACID 5.7 2.6 - 6.0 mg/dL TB 04/30/2025 3:08 PM EDT 04/30/2025 3:12 PM EDT Narrative CLINISYNC - 04/30/2025 3:45 PM EDT Neha Elmo DO CLINISYNC Final Result [facility] * ALL LDH (04/30/2025 3:08 PM EDT) Pathologist [facility] LACTATE DEHYDROGENASE 147 81 - 234 U/L TB 04/30/2025 3:08 PM EDT 04/30/2025 3:12 PM EDT Narrative CLINISYNC - 04/30/2025 3:44 PM EDT [facility] Final Result Performing Organization Address [place] Co de Phone Number [facility] * (ABNORMAL) ALL CBC WITH AUTO DIFF (04/30/2025 3:08 PM EDT) Pathologist [facility] TB WBC 11.6(H) 4.0 - 11.0 10 3/uL TBH TB RBC 4.37 4.20 - 5.40 10 6/uL TBH TBH HGB 12.5 12.0 - 16.0 g/dL TB TB HCT 37.8 36.0 - 48.0 % TB TBH MCV 86.5 81.0 - 99.0 fL TB TBH MCH 28.6 26.7 - 34.0 pg [...] Narrative CLINISYNC - 04/30/2025 3:17 PM EDT us Neha PADILLA Final Result [facility] * US OB GROWTH (04/30/2025 7:10 AM EDT) Anatomical Region Laterality Modality Other 04/30/2025 7:10 AM EDT Narrative 04/30/2025 7:13 [place] [address] Ultrasound Report Signed Patient: LE WEEMS MR#: [id number] : 1990 Acct:[id number] Age/Sex: 34 / F ADM Date: 04/29/25 Loc: US Attending Dr: Neha Borrego D.O. Ordering Physician: Neha Borrego D.O. Date of Service: 04/29/25 Procedure(s): US OB growth Accession Number(s): [id number] cc: Neha Borrego D.O.; Physician,Non-Staff M.DNikos [address] [address] Patient Name: LE WEEMS MRN: [facility]:[id number] date: 1990 Sex: F Assigned Patient Location: Current Patient Location: Accession/Order Number: [id number] Exam Date: 04/30/2025 07:02 Report Date: 04/30/2025 [...] fluid greater than 2 cm [Y] 2/2 SRAA: 14.2 cm Total score: 05/30 IMPRESSION: NORMAL BIOPHYSICAL PROFILE Impression dictated by: Mariam Olivares M.D. 04/30/2025 7:10 AM Dictation Location: [place] [address] Electronically authenticated by: [id number] Y Date: 04/30/2025 07:10 Dictated By: Mariam Olivares M.D. Signed By: 04/30/25712 DD/ 9 TD/TT: Palm And Back Forger: Procedure Note Radiology, Radiologist, MD - 04/30/2025 [place] [address] Ultrasound Report Signed Patient: LE WEEMSMR#: [id number] : 1990Acct:[id number] Age/Sex: 34 / FADM Date: 04/29/25 Loc: US Attending Dr: Neha Borrego D.O. Ordering Physician: Neha Borrego D.O. Date of Service: 04/29/25 Procedure(s): US OB growth Accession Number(s): [id number] cc: Neha Borrego D.O.; Physician,Non-Staff Dileep The [address] [address] Patient Name: LE WEEMS MRN: [facility]:[id number] date: 1990 Sex: F Assigned Patient Location: Current Patient Location: Accession/Order Number: [id number] Exam Date: 04/30/2025 07:02 Report Date: 04/30/2025 [...] 04/30/2025 7:10 AM Dictation Location: [place] [address] Electronically authenticated by: [id number] Y Date: 507:10 Dictated By: Mariam Olivares M.D. Signed By:04/30/25 0713 DD/ 0710 TD/TT: Palm And Back Forger: us Neha Elmo DO CLINISYNC IMAGING Final Result * Pap Smear (09/16/2024 12:00 AM EST) Swab Cervical swab / Unknown us Neha Elmo DO LAB CYTOLOGY ORDERABLES Final Re sult EXTERNAL LAB * THINPREP TIS PAP REFLEX HPV MRNA E6/E7 (95596) (08/05/2020) CLINICAL INFORMATION: None given [facility] LEGACY [...] LAB Comment: ML, CT(ASCP) CT screening location: [facility], [address] [place] [address]. COMMENT SEE COMMENT [facility] LEG ACY EXTERNAL [...] Most Recently Relevant to Health Maintenance Insurance [facility]
--- OUTSIDE RECORDS SUMMARY | 2025-05-07 10:02 | XMS_ITS | Encounter Summary ---
Author Organization [facility] Address [address] [place] [address] Care Team Providers Care Market Sales Manager Name Role Phone Unavailable Primary Care Provider Unavailabl e Encounter Details Date Type Department Care Team (Late st Contact Info) Description 05/05/2025 Bamboo flowsheet [facility] BCP OB [address] [place] [address] Mik Borrego, DO [address] [place], [place] [address] Social History Tobacco Use Types Packs/Day Years [...] [address] Mik Borrego, DO [address], [place] [address] 05/19/2025 9:40 AM EDT Routine [facility] BCP OB [address] [place] [address] Mik Borrego, DO [address] [place], [facility] documented as of this encounter Visit Diagnoses Not on filedocumented in this encounter
--- OUTSIDE RECORDS SUMMARY | 2025-05-07 10:02 | XMS_ITS | Encounter Summary ---
Author Organization [facility] Address [address] [place] [address] Care Team Providers Care Electric Motor Repairman Name Role Phone Unavailable Primary Care Provider [...] [facility]OMS BCP OB [address] [place] [id number] Neha Borrego, DO [address] [place], [place] [...] PM EDT [facility] CMP (CMP) (FOR REMOTE [facility] USE) Routine 04/30/2025 3:08 PM EDT [...] * (ABNORMAL) [facility] CMP (CMP) (FOR REMOTE [facility] USE) (04/30/2025 3:08 PM EDT) SODIUM [...] 0.55 - 1.02 mg/dL TBH TBH EGFR-AF [place] >60 >=60 mL/min/1. 73m 2 TBH TBH EGFR-NON AF [place] >60 >=60 mL/min/1. 73m 2 TBH BUN [...] AUTO DIFF (04/30/2025 3:08 PM EDT) Pathologist [facility] TB WBC 11.6(H) 4.0 - 11.0 10 [...] DO CLINISYNC Final Result Performing Organization Address City/State/[facility] Co de Phone Number [facility] * US OB BPP W NON-STRESS (04/30/2025 7:10 AM EDT) Anatomical Region Laterality Modality Other 04/30/2025 7:10 AM EDT Narrative 04/30/2025 7:13 [place] [address] Ultrasound Report Signed Patient: LE WEEMS MR#: [id number] : 1990 Acct:[id number] Age/Sex: 34 / F ADM Date: 04/29/25 Loc: US Attending Dr: Neha Borrego D.O. Ordering Physician: Neha Borrego D.O. Date of Service: 04/29/25 Procedure(s): US OB BPP w non-stress Accession Number(s): [id number] cc: Neha Borrego D.O.; Physician,Non-Staff M.David The [address] [id number] Patient Name: LE WEEMS MRN: [facility]:[id number] date: 1990 Sex: F Assigned Patient Location: [facility] Current Patient Location: Accession/Order Number: [id number] Exam Date: 04/30/2025 07:02 Report Date: 04/30/2025 [...] Olivares M.D. 04/30/2025 7:10 AM Dictation Location: [place] [address] Electronically authenticated by: [id number] Y Date: 04/30/2025 07:10 Dictated By: Mariam Olivares M.D. Signed By: 04/30/25 0713 DD/ 0710 TD/TT: Screen Tender: Procedure Note Radiology, Radiologist, - 04/30/2025 [place] [address] Ultrasound Report Signed Patient: LE WEEMSMR#: [id number] : 1990Acct:[id number] Age/Sex: 34 / FADM Date: 04/29/25 Loc: US Attending Dr: Neha Borrego D.O. Ordering Physician: Neha Borrego D.O. Date of Service: 04/29/25 Procedure(s): US OB BPP w non-stress Accession Number(s): [id number] cc: Neha Borrego D.O.; Physician,Non-Staff M.DNikos [place] [id number] Patient Name: LE WEEMS MRN: [facility]:[id number] date: 1990 Sex: F Assigned Patient Location: [facility] Current Patient Location: Accession/Order Number: [id number] Exam Date: 04/30/2025 07:02 Report Date: 04/30/2025 [...] Olivares M.D. 04/30/2025 7:10 AM Dictation Location: [place] [address] Electronically authenticated by: [id number] Y Date: 7:10 Dictated By: Mariam Olivares M.D. Signed By:04/30/25 0713 DD/ 0710 TD/TT: Screen Tender: us Neha Elmo DO CLIN[facility]YNC IMAGING Final Result documented in this encounter Visit Diagnoses Not on filedocumented in this encounter
--- OUTSIDE RECORDS SUMMARY | 2025-05-07 10:02 | XMS_ITS | Encounter Summary ---
Author Organization [facility] Address [address] [place] [address] Care Team Providers Care Automotive Service Director Name Role Phone Unavailable Primary Care Provider Unavailabl e Encounter Details Date Type Department Care Team (Late st Contact Info) Description 01/22/2025 Abstract [facility] BCP OB [address] [place] [address] Mik Borrego DO [facility] [place], [facility]11 Social History Tobacco Use Types Packs/Day Years [...] [address] Mik Borrego, DO [address], [facility] 05/19/2025 9:40 AM EDT Routine [facility] BCP OB [address] [place] [address] Mik Borrego DO [facility] [place], [facility]11 documented as of this encounter Visit Diagnoses Not on filedocumented in this encounter
--- OUTSIDE RECORDS SUMMARY | 2025-05-07 10:02 | XMS_ITS | Encounter Summary ---
Author Organization [facility] Address [address] [place] [address] Care Team Providers Care Photographic Colorist Name Role Phone Unavailable Primary Care Provider Unavailabl e Encounter Details Date Type Department Care Team (Late st Contact Info) Description 03/04/2025 Abstract [facility] BCP OB [address] [place] [address] Juanis Esparza MA Social History Tobacco [...] Routine [facility] BCP OB [address] [place] [address] Mik Borrego DO [address] [place] [address] [place] [address] 05/19/2025 9:40 AM EDT Routine [facility] BCP OB [address] [place] [address] Mik Borrego DO [address] [place] [address] [place] [address] documented as of this encounter Visit Diagnoses Not on filedocumented in this encounter
--- OUTSIDE RECORDS SUMMARY | 2025-05-07 10:02 | XMS_ITS | Patient Health Record ---
Author Organization [employer] [facility] es Address [address] [place] [address] Care Team Providers Care Privacy Analyst Name Role Phone Olimpia Cruz Primary Care Provider Diane Perdomo Unavailable [phone] Blossom Fletcher Unavailable [phone] Steven Shane Unavailable [phone] Allergies Allergen (clinical drug ingredient) Drug/Non Drug Allergy documented on EMR Reaction Allergy Type Onset Date Status metformin metFORMIN HCl diarrhea Drug Allergy Act christine Pollen Pollen Unknown Allergy Active prednisone Prednisone rash Drug Allergy Activ e propranolol Propranolol asthma flare up Drug Allergy Active Reason For Referral No Information Medications Medication SIG (Take, Route, Frequency, Duration) Notes Start Date End Date Status Singulair 10 MG 1 tablet Orally Once a day; Duration: 90 days Active Ipratropium-Albuterol 0.5-2.5 (3) MG/3ML 3 mL as needed Inhalation every 6 hrs; Duration: 30 days 12/12/2023 Active Ciprofloxacin-dexAMETHas one 0.3-0.1 % 4 drops into affected ear Otic Twice a day; Duration: 7 days 02/13/2024 Not-Taking Lisdexamfetamine Dimesylate 50 MG 1 capsule in the morning Orally Once a day; Duration: 30 days F90.0 12/16/2023 Not-Taking Acyclovir 800 MG 1 tablet Orally Twice a day; Duration: 10 days 10/17/2023 Active ALPRAZolam 0.5 MG 0.5-1 tab Orally Twice a day; Duration: 10 days F41.1 04/30/2024 Active Albuterol Sulfate HFA 108 (90 Base) MCG/ACT 2 puff as needed Inhalation every 4 hrs; Duration: 25 days Active Vyvanse 20 MG 1 capsule in the morning Orally Once a day; Duration: 30 days F90.0, DNF until 06/04/24 06/25/2024 Active Lisdexamfetamine Dimesylate 60 MG 1 capsule in the morning Orally Once a day; Duration: 30 days DNF until 03/11/2024 12/25/2023 Not-Taking Lisdexamfetamine Dimesylate 60 MG 1 capsule in the morning Orally Once a day; Duration: 30 days DNF until 02/16/2024 12/25/2023 Not-Taking Vyvanse 30 MG 1 capsule in the morning Orally Once a day; Duration: 30 days F90.0 08/23/2023 Not-Taking Vyvanse 10 MG 1 capsule in the morning Orally Once a day; Duration: 15 days DNF until 06/18/24 05/27/2024 Active Vyvanse 50 MG 1 capsule in the morning Orally Once a day; Duration: 30 days F90.0 DNF until 03/18/2024 02/19/2024 Not-Taking Lisdexamfetamine Dimesylate 60 MG 1 capsule in the morning Orally Once a day; Duration: 30 days DNF until 01/22/2024 12/25/2023 Not-Taking Vyvanse 30 MG 1 capsule in the morning Orally Once a day; Duration: 30 days F90.0 DNF until 07/22/2023 06/24/2023 Not-Taking Propranolol HCl 40 MG 1 tablet Orally twice a day (bid) as needed (prn); Duration: 90 days 08/30/2022 Not-Taking Social History Tobacco Use: Social History Observation Description Date Details (start date - stop date) Never Smoker NA - NA Tobacco Screen: Question Answer Notes Are you a: never smoker Sexual Hx: Question Answer Notes Had sex in the last 12 months (vaginal, oral, or anal)? Yes with Men only Alcohol Screening: Question Answer Notes Did you have a drink contain ing alcohol in the past year? Yes How often did you have a dri nk containing alcohol in the past year? Monthly or less (1 point) Points 1 Interpretation Negative Problems Problem Type SNOMED Code ICD Code Onset Dates Problem Status W/U Status Risk Notes Problem Obesity due to excess calories (729913505) Other obesity due to excess calories (E66.09) Active confirmed Problem Mixed hyperlipidemia (540755935) Mixed hyperlipidemia (E78.2) Active confirmed Problem Polycystic ovary syndrome (disorder) (235892496) PCOS (polycystic ovarian syndrome) (E28.2) Active confirmed Problem Exacerbation of moderate persistent asthma (disorder) (144015804) Moderate persistent asthma with acute exacerbation (J45.41) Active confirmed Problem Attention deficit hyperactivity disorder, predominantly inattentive type (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, predominantly inattentive type (F90.0) Active confirmed Problem Generalized anxiety disorder (28257240) Anxiety, generalized (F41.1) Active confirmed Problem Body mass index 30.00 to 34.99 (871180028198128) Body mass index [BMI] 31.0-31.9, adult (Z68.31) Active confirmed Vital Signs Heart Rate 80 /min 05/27/2024 Blood pressure diastolic 105 mm Hg 05/27/2024 Oximetry 97 % 05/27/2024 Height 67.25 in 05/27/2024 Blood pressure systolic 158 mm Hg 05/27/2024 Weight 195 lbs 05/27/2024 BMI 30.31 kg/m2 05/27/2024 Encounters Encounter Location Date Provider Diagnosis [place] [address] [place] [address] 05/21/2024 [facility] Me[facility] [facility] [address] [address] 06/11/[address] [facility] [address] [place] [address] 06/25/2024 [facility] Svitlana ADHD, predominantly inattentive type F90.0 [place] [address] [place] [place] [address] 05/27/2024 [facility] Soradha ADHD, predominantly inattentive type F90.0 Assessments Encounter Date Diagnosis (ICD Code) Assessment Notes Treatment Notes Treatment Clinical Notes Section Notes 05/27/2024 ADHD, predominantly inattentive type (ICD-10 - F90.0) Follow weaning program to discontinue Vyvanse. Follow-up as needed should patient pedro restart this medication in the future. OARRS reviewed . Informed consent obtained: YES, we discussed the diagnosis/diagnose s, the treatment options, treatment(s) recommended vs. no treatment. We discussed risks and benefits of treatment options, treatment recommendations vs. no treatment. . . Patient continues to meet criteria for attention deficit hyperactivity disorder. Pt does not meet criteria for bipolar disorder, major depressive disorder, or other persistent mood disorders. Will continue to monitor the patient for presentation of new symptoms or behaviors. . . FDA approved stimulant medication for this age group. Discussed/Denies adverse effects from medication including HTN, tachycardia, insomnia, irritability, headache, or decreased appetite. . . Discussed lifestyle/diet changes to help improve BMI. Recommend increasing activity, reducing portion sizes, limiting carbohydrates, increasing protein as appropriate. Discussed referral to ore crusher if problem persists. . . Continue current treatment plan, tolerating meds well, compliant; call for problems . GOALS: Maintain medication regimen Maintain mood stability Maintain anxiety stability Maintain social and interpersonal functioning Maintain attention and hyperactivity . . Currently at low risk for self harm. Denies ongoing feelings of hopelessness. Denies ongoing suicidal ideation, intent or plan in session. . 06/25/2024 ADHD, predominantly inattentive type (ICD-10 - F90.0) Plan Of Treatment No Information Insurance Providers Payer Name Payer Address Payer Phone Subscriber Number Group Number Insured Name Patient Relationship to Insured Coverage Start Date Coverage End Date ANTH Primary [address] [place] [address] [id number] LE STACK Self - patient is the insured 3 [facility] [address] [place] [phone] [id number] LE STACK Self - patient is the insured 0 2 Medical (General) History Medical History History ICD Code ADHD Anxiety seasonal allergies asthma PCOS
--- OUTSIDE RECORDS SUMMARY | 2025-05-07 10:02 | XMS_ITS | Encounter Summary ---
Author Organization [facility] Address [address] [place] [address] Care Team Providers Care Headhunter Name Role Phone Unavailable Primary Care Provider Unavailabl e Encounter Details Date Type Department Care Team (Late st Contact Info) Description 04/30/2025 Telephone [facility] [address] [place] [phone] Juanis Esparza MA Social History Tobacco Use [...] AM EDT Routine [facility] [address] [address] Mik Borrego, DO [facility] [place] [address] 05/19/2025 9:40 AM EDT Routine [facility] [address] [place] [address] Mik Borrego, DO [facility] [place] [address] documented as of this encounter Visit Diagnoses Not on filedocumented in this encounter
--- OUTSIDE RECORDS SUMMARY | 2025-05-07 10:02 | XMS_ITS | Encounter Summary ---
Author Organization [facility] Address [address] [place] [address] Care Team Providers Care Buttermaker Continuous Churn Name Role Phone Unavailable Primary Care Provider Unavailabl e Encounter Details Date Type Department Care Team (Late st Contact Info) Description 02/04/2025 Abstract [facility] OB [address] [place] [address] Mik Borrego DO [facility] [place], [facility]11 Social History Tobacco Use Types Packs/Day [...] [address] Mik Borrego, DO [address] [place], [facility] 05/19/2025 9:40 AM EDT Routine [facility] OB [address] [place] [address] Mik Borrego DO [facility] [place], [facility] documented as of this encounter Visit Diagnoses Not on filedocumented in this encounter
--- OUTSIDE RECORDS SUMMARY | 2025-05-07 10:02 | XMS_ITS | Encounter Summary ---
Author Organization [facility] Address [address] [place] [address] Care Team Providers Care Personal Lines Appraiser Name Role Phone Unavailable Primary Care Provider Unavailabl e Encounter Details Date Type Department Care Team (Late st Contact Info) Description 04/01/2025 Abstract [facility] [address] [facility] [place] [address] Juanis Esparza MA Social History Tobacco [...] Routine [facility] OB [address] [place] [address] Mik Borrego DO [address] [place] [address] [place] [address] 05/19/2025 9:40 AM EDT Routine [facility] OB [address] [place] [address] Mik Borrego DO [address] [place] [address] [place] [address] documented as of this encounter Visit Diagnoses Not on filedocumented in this encounter
--- OUTSIDE RECORDS SUMMARY | 2025-05-07 10:02 | XMS_ITS | Encounter Summary ---
Author Organization [facility] Address [address] [place] [address] Care Team Providers Care Sock Lining Examiner Name Role Phone Unavailable Primary Care Provider Unavailabl e Encounter Details Date Type Department Care Team (Late st Contact Info) Description 04/30/2025 Clinisync Result Encounter [facility] External Department Unsolicited Neha Borrego, DO [address] [place], [facility]11 Social History Tobacco Use Types Packs/Day Years [...] Routine [facility] OB [address] [place] [address] Neha Borrego, DO [address] [place], [facility]11 05/19/2025 9:40 AM EDT Routine [facility] OB [address] [place] [address] Neha Borrego, DO [address] [place], [facility]11 documented as of this encounter Procedures Procedure Name Priority Date/Time Associated Diagnosis Comments US OB GROWTH 04/30/2025 7:10 AM EDT documented in this encounter Results * US OB GROWTH (04/30/2025 7:10 AM EDT) Anatomical Region Laterality Modality Other 04/30/2025 7:10 AM EDT Narrative 04/30/2025 7:13 [place] [address] Ultrasound Report Signed Patient: LE WEEMS MR#: [id number] : 1990 Acct:[id number] Age/Sex: 34 / F ADM Date: 04/29/25 Loc: US Attending Dr: Neha Borrego D.O. Ordering Physician: Neha Borrego D.O. Date of Service: 04/29/25 Procedure(s): US OB growth Accession Number(s): [id number] cc: Neha Borrego D.O.; Physician,Non-Staff M.DNikos [address] [place] [address] Patient Name: LE WEEMS MRN: [id number] date: 1990 Sex: F Assigned Patient Location: Current Patient Location: Accession/Order Number: [id number] Exam Date: 04/30/2025 07:02 Report Date: 04/30/2025 [...] 04/30/2025 7:10 AM Dictation Location: [place] [address] Electronically authenticated by: [id number] Y Date: 04/30/2025 07:10 Dictated By: Mariam Olivares M.D. Signed By: 04/30/25 0713 DD/ 07 TD/TT: Tomato Grader: Procedure Note Radiology, Radiologist, MD - 04/30/2025 [place] [address] Ultrasound Report Signed Patient: LE WEEMSMR#: [id number] : 1990Acct:[id number] Age/Sex: 34 / FADM Date: 04/29/25 Loc: US Attending Dr: Neha Borrego D.O. Ordering Physician: Neha Borrego D.O. Date of Service: 04/29/25 Procedure(s): US OB growth Accession Number(s): [id number] cc: Elmo,Neah D.O.; Physician,Non-Staff [place] [address] [place] [id number] Patient Name: LE WEEMS MRN: [facility]:[id number] date: 1990 Sex: F Assigned Patient Location: Current Patient Location: Accession/Order Number: [id number] Exam Date: 04/30/2025 07:02 Report Date: 04/30/2025 [...] 04/30/2025 7:10 AM Dictation Location: [place] [address] Electronically authenticated by: [id number] Y Date: 7:10 Dictated By: Mariam Olivares M.D. Signed By:04/30/25 0713 DD/ TD/TT: Tomato Grader: us Neha Borrego DO [facility] Final Result documented in this encounter Visit Diagnoses Not on filedocumented in this encounter
--- OUTSIDE RECORDS SUMMARY | 2025-05-07 10:02 | XMS_ITS | Encounter Summary ---
Author Organization [facility] Address [address] [place] [address] Care Team Providers Care Commercial Baking Teacher Name Role Phone Unavailable Primary Care Provider Unavailabl e Encounter Details Date Type Department Care Team (Late st Contact Info) Description 01/17/2025 Abstract [facility] OB [address] [place] [address] Mik Borrego DO [facility] [place], [facility]11 Social History Tobacco Use Types Packs/Day [...] [address] Mik Borrego, DO [address] [place], [facility] 05/19/2025 9:40 AM EDT Routine [facility] B[facility] OB [address] [place] [address] Mik Borrego DO [facility] [place], [facility]11 documented as of this encounter Visit Diagnoses Not on filedocumented in this encounter
--- OUTSIDE RECORDS SUMMARY | 2025-05-07 10:02 | XMS_ITS | Encounter Summary ---
Author Organization [facility] Address [address] [address] Care Team Providers Care Yard Goods Salesperson Name Role Phone Unavailable Primary Care Provider Unavailabl e Encounter Details Date Type Department Care Team (Late st Contact Info) Description 02/04/2025 Abstract [facility] B[facility] OB [address] [place] [address] Mik Borrego DO [facility] [place], [facility]11 [...] [address] Mik Borrego, DO [address] [place], [facility]11 05/19/2025 9:40 AM EDT Routine [facility] BCP OB [address] [place] [address] Mik Borrego DO [facility] [place], [facility]11 documented as of this encounter Visit Diagnoses Not on filedocumented in this encounter
--- OUTSIDE RECORDS SUMMARY | 2025-05-07 10:02 | XMS_ITS | Encounter Summary ---
Author Organization [facility] [employer] [facility] Address [id number] [address] [place] [address] Care Team Providers Care Outdoor Adventure Guides Name Role Phone Unavailable Primary Care Provider Unavailabl e Encounter Details Date Type Department Care Team (Late st Contact Info) Description 12/06/2024 Orders Only Maternal- Medicine at [facility] [address] [place] [address] Ref Prov, [place] [address] Social History Tobacco Use Types Packs/Day Years [...]
--- OUTSIDE RECORDS SUMMARY | 2025-05-07 10:02 | XMS_ITS | Encounter Summary ---
Author Organization [facility] Address [address] [place] [address] Care Team Providers Care Goodyear Welter Name Role Phone Unavailable Primary Care Provider Unavailabl e Encounter Details Date Type Department Care Team (Late st Contact Info) Description 02/03/2025 Abstract [facility] BCP OB [address] [place] [address] Mik Borrego DO [facility] [place], [facility]11 Social History Tobacco Use Types [...] [address] Mik Borrego, DO [address] [place], [facility]11 05/19/2025 9:40 AM EDT Routine [facility] BCP OB [address] [place] [address] Mik Borrego DO [facility] [place], [facility]11 documented as of this encounter Visit Diagnoses Not on filedocumented in this encounter
--- OUTSIDE RECORDS SUMMARY | 2025-05-07 10:02 | XMS_ITS | Encounter Summary ---
Author Organization [facility] Address [address] [place] [address] Care Team Providers Care Varnish Maker Name Role Phone Unavailable Primary Care Provider Unavailabl e Encounter Details Date Type Department Care Team (Late st Contact Info) Description 04/22/2025 Abstract [facility] BCP OB [address] [place] [address] Mik Borrego DO [facility] [place], [facility]11 Social History Tobacco Use Types [...] [address] Mik Borrego, DO [address] [place], [facility]11 05/19/2025 9:40 AM EDT Routine [facility] BCP OB [address] [place] [address] Mik Borrego DO [facility] [place], [facility]11 documented as of this encounter Visit Diagnoses Not on filedocumented in this encounter
--- OUTSIDE RECORDS SUMMARY | 2025-05-07 10:02 | XMS_ITS | Clinical Summary ---
Author Organization [employer] [facility] [facility] Address [facility]-[id number] [address] [place] [address] Care Team Providers Care Assistant Football Coach Name Role Phone Unavailable Primary Care Provider [...] Fasting and 1hr postprandial 100 each 1 5 Active Encounters Date Type Department Care Team Description 04/01/2025 Orders Only Maternal- Medicine at [facility] [address] [place] [address] Michelle Ashraf RN Chronic hypertension affecting (Primary Dx); Gestational diabetes mellitus (GDM), antepartum, gestational diabetes method of control unspecified 03/31/2025 10:39 AM EDT - 03/31/2025 11:59 PM EDT Hospital Encounter [facility] - [facility] US Imaging [address] [place] [address] Chronic hypertension affecting ; Advanced maternal age in multigravida, second trimester; Gestational diabetes mellitus (GDM), antepartum, gestational diabetes method of control unspecified Discharge Disposition: Home 03/31/2025 Travel 03/04/2025 Orders Only Maternal- Medicine at [facility] [address] [place] [address] Oralia Elliott CMA Chronic hypertension affecting (Primary Dx); Advanced maternal age in multigravida, second trimester; Gestational diabetes mellitus (GDM), antepartum, gestational diabetes method of control unspecified 03/03/2025 10:32 AM EDT - 03/03/2025 11:59 PM EDT Hospital Encounter [facility] US Imaging [address] [place] [address] Chronic hypertension affecting ; Advanced maternal age in multigravida, second trimester; Prediabetes in mother during ; Gestational diabetes mellitus (GDM), antepartum, gestational diabetes method of control unspecified Discharge Disposition: Home 03/03/2025 Travel from Last 3 Months Family History Medical [...] Procedure Name Priority Date/Time Associated Diagnosis Comments [facility] OB FOLLOW-UP, 1 FETUS Routine 03/31/2025 11:47 [...] period is included. Anatomical Region Laterality Modality OB-PARK GUIDE Ultrasound 03/31/2025 11:2 5 AM EDT Narrative 03/31/2025 1:02 PM EDT NAME: SEDA LUJAN : 1990 SEX: F Accession Number: [id number] ORDERING PHYSICIAN: LORENZA RAGSDALE REFERRING PHYSICIAN: NEHA CAMPBELL Coding ----- --------- Procedures 92771: Follow-up Ultrasound, per fetus Indication ----- --------- Gestational diabetes, Chronic hypertension affecting , Obesity in , AMA- Supervision of elderly History ----- --------- OB History 1. Para 0 [id number] Maternal Assessment ----- --------- Physical Exam Height [...] EFW (oz) 12 oz EFW by: Hadlock ([id number]) Extended Tibia 50.8 mm 30w 2d 75% [facility] 4.3 mm CM 4.6 mm 3% Nicolaides [...] primary OB provider unless otherwise specified by MFM. Results forwarded to ordering provider so they can follow up with the patient as necessary. Procedure Note Ravindra Dowling MD - 03/31/2025 NAME: SEDA LUJAN : 1990 SEX: F Accession Number: [id number] ORDERING PHYSICIAN: LORENZA RAGSDALE REFERRING PHYSICIAN: NEHA CAMPBELL Coding ----- --------- Procedures [id number]: Follow-up Ultrasound, per fetus Indication ----- --------- Gestational diabetes, Chronic hypertension affecting , Obesityin , AMA- Supervision of elderly History ----- --------- OB History 1. Para 0 [id number] Maternal Assessment ----- --------- Physical Exam Height [...] EFW (oz) 12 oz EFW by: Hadlock ([id number]) Extended Tibia 50.8 mm 30w 2d 75% [facility] 4.3 mm CM 4.6 mm 3% Nicolaides [...] byprimary OB provider unless otherwise specified by [facility]. Results forwarded to ordering provider so they can follow up with thepatient as necessary. us Lorenza Ragsdale MD [facility] ORDERABLES Final Re sult from Last 3 Months Insurance [facility]
--- OUTSIDE RECORDS SUMMARY | 2025-05-07 10:02 | XMS_ITS | Encounter Summary ---
Author Organization [facility] Address [address] [place] [address] Care Team Providers Care Manager Front Office Name Role Phone Unavailable Primary Care Provider Unavailabl e Encounter Details Date Type Department Care Team (Late st Contact Info) Description 05/05/2025 Abstract [facility] BCP OB [address] [place] [address] Mik Borrego DO [facility] [place], [facility]11 Social History [...] [place] [address] Mik Borrego DO [facility] [place], [facility]11 documented as of this encounter Visit Diagnoses Not on filedocumented in this encounter
--- OUTSIDE RECORDS SUMMARY | 2025-05-07 10:03 | XMS_ITS | Encounter Summary ---
Author Organization [facility] Address [address] [place] [address] Care Team Providers Care Health Physicist Name Role Phone Unavailable Primary Care Provider Unavailabl e Encounter Details Date Type Department Care Team (Late st Contact Info) Description 09/16/2024 Abstract [facility] OB [address] [place] [address] Mik Borrego DO [facility] [place], [place] [address] Social History Tobacco Use Types Packs/Day Years [...] Description 05/12/2025 9:10 AM EDT Routine [facility] OB [facility] [place] [address] Mik Borrego DO [facility] [place], [place] [id number] 05/19/2025 9:40 AM EDT Routine [facility] BCP OB [facility] [place] [address] Mik Borrego DO [facility] [place], [facility] documented as of this encounter Visit Diagnoses Not on filedocumented in this encounter
--- OUTSIDE RECORDS SUMMARY | 2025-05-07 10:03 | XMS_ITS | Encounter Summary ---
Author Organization [facility] Address [address] [place] [address] Care Team Providers Care Thin Film Technician Name Role Phone Unavailable Primary Care Provider Unavailabl e Encounter Details Date Type Department Care Team (Late st Contact Info) Description 02/05/2025 Abstract [facility] BCP OB [address] [place] [address] Mik Borrego DO [facility] [place], [facility]11 Social History Tobacco Use Types [...] [address] Mik Borrego, DO [address] [place], [facility]11 05/19/2025 9:40 AM EDT Routine [facility] BCP OB [address] [place] [address] Mik Borrego DO [facility] [place], [facility]11 documented as of this encounter Visit Diagnoses Not on filedocumented in this encounter
--- OUTSIDE RECORDS SUMMARY | 2025-05-07 10:03 | XMS_ITS | Encounter Summary ---
Author Organization [facility] Address [address] [place] [address] Care Team Providers Care Panel Builder Name Role Phone Unavailable Primary Care Provider Unavailabl e Encounter Details Date Type Department Care Team (Late st Contact Info) Description 10/08/2024 Orders Only [facility] BCP OB [address] [place] [phone] Larisa Chowdary MA [facility] [place] [address] Social History Tobacco Use Types Packs/Day Years [...] 9:10 AM EDT Routine [facility] BCP [place] [facility] [place] [phone] Mik Borrego [facility] [place] [address] 05/19/2025 9:40 AM EDT Routine [facility] BCP [place] [facility] [place] [phone] Mik Borrego DO [facility] [place] [address] documented as of this encounter Procedures Procedure [...]
--- OUTSIDE RECORDS SUMMARY | 2025-05-07 10:03 | XMS_ITS | Encounter Summary ---
Author Organization [facility] Address [address] [place] [address] Care Team Providers Care Hotel Reservation Agent Name Role Phone Unavailable Primary Care Provider Unavailabl e Encounter Details Date Type Department Care Team (Late st Contact Info) Description 05/06/2025 Clinisync Result Encounter NOMS External Department Unsolicited Neha Borrego, DO [address] [place], [facility]11 Social History Tobacco Use Types Packs/Day Years [...] NOMS BCP OB [address] [place] [address] Neha Borrego, DO [address] [place], [facility]11 05/19/2025 9:40 AM EDT Routine [facility] BCP OB [address] [place] [address] Neha Borrego, DO [address] [place], [facility]11 documented as of this encounter Procedures Procedure Name Priority Date/Time Associated Diagnosis Comments US OB BPP W NON-STRESS 05/06/2025 9:29 AM EDT documented in this encounter Results * US OB BPP W NON-STRESS (05/06/2025 9:29 AM EDT) Anatomical Region Laterality Modality Other 05/06/2025 9:29 AM EDT Narrative 05/06/2025 9:32 [place] [address] Ultrasound Report Signed Patient: LE WEEMS MR#: [id number] : 1990 Acct:[id number] Age/Sex: 34 / F ADM Date: 05/06/25 Loc: [facility] 250-[address]: Neha Borrego D.O. Ordering Physician: Neha Borrego D.O. Date of Service: 05/06/25 Procedure(s): US OB BPP w non-stress Accession Number(s): [id number] cc: Neha Borrego D.O.; Physician,Non-Staff M.DNikos [address] [address] Patient Name: LE WEEMS MRN: [id number] date: 1990 Sex: F Assigned Patient Location: [facility] Current Patient Location: [facility] Accession/Order Number: [id number] Exam Date: 05/06/2025 09:07 Report Date: 05/06/2025 [...] Olivares M.D. 05/06/2025 9:29 AM Dictation Location: [place] [address] Electronically authenticated by: [id number] Y Date: 05/06/2025 09:29 Dictated By: Mariam Olivares M.D. Signed By: 05/06/25931 DD/ 8 TD/TT: Tube And Manifold Builder: Procedure Note Radiology, Radiologist, - 05/06/2025 [place] [address] Ultrasound Report Signed Patient: LE WEEMS RMR#: [id number] : 1990Acct:[id number] Age/Sex: 34 / FADM Date: 05/06/25 Loc: [place] [address]: Neha Borrego D.O. Ordering Physician: Neha Borrego D.O. Date of Service: 05/06/25 Procedure(s): US OB BPP w non-stress Accession Number(s): [id number] cc: Neha Borrego D.O.; Physician,Non-Staff Dileep The [place] [id number] Patient Name: LE EWEMS MRN: [id number] date: 1990 Sex: F Assigned Patient Location: [facility] Current Patient Location: [facility] Accession/Order Number: [id number] Exam Date: 05/06/2025 09:07 Report Date: 05/06/2025 [...] breathing lastingat least 30 seconds [Y] 0/2 SRAA: A single deepest vertical pocket of amniotic fluid greater than 2 cm [Y] 2/2 SARA: 14.3 cm Total score: 03/30 US/US OB BPP w non-stress IMPRESSION: FAILED BIOPHYSICAL PROFILE WITH NO BREATHING OBSERVED Impression dictated by: Mariam Olivares M.D. 05/06/2025 9:29 AM Dictation Location: [place] [address] Electronically authenticated by: [id number] Y Date: 9:29 Dictated By: Mariam Olivares M.D. Signed By:05/06/25 0932 DD/ TD/TT: Tube And Manifold Builder: Neha Borrego DO [facility] Final Result documented in this encounter Visit Diagnoses Not on filedocumented in this encounter
--- OUTSIDE RECORDS SUMMARY | 2025-05-07 10:03 | XMS_ITS | Encounter Summary ---
Author Organization [facility] Address [address] [place] [address] Care Team Providers Care Care Trainer Name Role Phone Unavailable Primary Care Provider Unavailabl e Encounter Details Date Type Department Care Team (Late st Contact Info) Description 11/11/2024 Abstract [facility] BCP OB [address] [place] [address] Mik Borrego DO [facility] [place], [facility]11 Social History Tobacco Use Types [...] Routine [facility] BCP OB [address] [place] [address] Mik Borrego, DO [address] [place], [facility]11 05/19/2025 9:40 AM EDT Routine [facility] BCP OB [address] [place] [address] Mik Borrego DO [facility] [place], [facility]11 documented as of this encounter Visit Diagnoses Not on filedocumented in this encounter
--- OUTSIDE RECORDS SUMMARY | 2025-05-07 10:03 | XMS_ITS | Encounter Summary ---
Author Organization [facility] Address [address] [place] [address] Care Team Providers Care Tie Layer Name Role Phone Unavailable Primary Care Provider Unavailabl e Encounter Details Date Type Department Care Team (Late st Contact Info) Description 11/08/2024 Clinisync Result Encounter NOMS External Department Unsolicited Neha Borrego, DO [address] [place], [facility]11 Social History Tobacco Use Types Packs/Day [...] [facility]OMS BCP OB [address] [place] [phone] Neha Borrego, DO [address] [place], [facility]11 05/19/2025 9:40 AM EDT Routine [facility] BCP OB [address] [place] [address] Neha Borrego, DO [address] [place], [facility]11 documented as of this encounter Procedures [...] AM EST Narrative 11/08/2024 11:35 AM EST [address] [address] Ultrasound Report Signed Patient: LE WEEMS MR#: [id number] : 1990 Acct:[id number] Age/Sex: 33 / F ADM Date: 11/08/24 Loc: US Attending Dr: Neha Borrego D.O. Ordering Physician: Neha Borrego D.O. Date of Service: 11/08/24 Procedure(s): US OB transvaginal Accession Number(s): [id number] cc: Neha Borrego D.O.; Physician,Non-Staff M.DNikos The [address] [address] Patient Name: LE WEEMS MRN: [id number] date: 1990 Sex: F Assigned Patient Location: US Current Patient Location: US Accession/Order Number: [id number] Exam Date: 11/08/2024 10:18 Report Date: 11/08/2024 [...] Signed By: 11/08/24 1135 DD/ 1132 TD/TT: Stacker And Sorter Operator: Procedure Note Radiology, Radiologist, MD - 11/08/2024 [place] [address] Ultrasound Report Signed Patient: LE WEEMSMR#: [id number] : 1990Acct:[id number] Age/Sex: 33 / FADM Date: 11/08/24 Loc: US Attending Dr: Neha Borrego D.O. Ordering Physician: Neha Borrego D.O. Date of Service: 11/08/24 Procedure(s): US OB transvaginal Accession Number(s): [id number] cc: Neha Borrego D.O.; Physician,Non-Staff Dileep The [place] [id number] Patient Name: LE WEEMS MRN: [facility]:[id number] date: 1990 Sex: F Assigned Patient Location: US Current Patient Location: US Accession/Order Number: [id number] Exam Date: 11/08/2024 10:18 Report Date: 11/08/2024 [...] M.D. Signed By:11/08/24 1135 DD/ 1132 TD/TT: Stacker And Sorter Operator: Neha Borrego DO [facility] Final Result * HBSAG SCREEN (11/08/2024 10:14 AM EST) HBSAG SCREEN Negative Negative [facility] Comment: Performed at: [address] [id number] River Driver: Toni Espinal PhD, Phone: [phone] 11/08/2024 10:1 4 AM EST 11/08/2024 10:16 AM EST Narrative [facility] - 11/09/2024 12:09 PM EST Neha Elmo DO LAB BLOOD ORDERABLES Final Resul t [facility] * RAPID PLASMA REAGIN, QUANT (11/08/2024 10:14 AM EST) RAPID PLASMA REAGIN, QUANT Non Reactive NonRea<1: 1 titer [facility] Comment: Please Note: This test does not meet current guidelines for screening and diagnosis of syphilis. This test is intended for following treatment response in patients being treated for syphilis infection. To screen for syphilis infection, a reflex cascade that includes both RPR and a treponema-specific assay should be utilized, such as Treponema pallidum (Syphilis) Screening Gould (667816) or Rapid Plasma Reagin (RPR) Test With Reflex to Quantitative RPR and Confirmatory Treponema pallidum Antibodies (908842). Performed at: [address] [id number] River Driver: Toni Espinal PhD, Phone: [phone] 11/08/2024 10:1 4 AM EST 11/08/2024 10:16 AM EST Narrative [facility] - 11/09/2024 12:09 PM EST [facility]LOOD ORDER[facility]LES Final Resul t Performing Organization Address [facility] de Phone Number [facility] * HCV ANTIBODY RFX TO QUANT PCR (11/08/2024 10:14 AM EST) Pathologist [facility] HCV AB Non Reactive Non Reactive [facility] INTERPRETATION: Comment . [facility] Comment: Not infected with HCV unless early or acute infection is suspected (which may be delayed in an immunocompromised individual), or other evidence exists to indicate HCV infection. 11/08/2024 10:1 4 AM EST 11/08/2024 10:16 AM EST Narrative [facility] - 11/09/2024 5:07 AM EST [facility] LAB BLOOD ORDERABLES Final Resul t Performing Organization Address [facility] Co de Phone Number [facility] * HIV AB/P24 AG WITH REFLEX (11/08/2024 10:14 AM EST) Pathologist [facility] HIV AB/P24 AG SCREEN Non Reactive Non Reactive [facility] Comment: HIV-1/HIV-2 antibodies and HIV-1 p24 antigen were NOT detected. There is no laboratory evidence of HIV infection. HIV Negative Performed at: [facility] Lab[address] [id number] River Driver: Toni Espinal PhD, Phone: [phone] 11/08/2024 10:1 4 AM EST 11/08/2024 10:16 [...] DO [facility] Final Result Performing Organization Address City/[facility]/ZIP Co de Phone Number [facility] TB * ALL TYPE AND SCREEN (11/08/2024 10:14 AM EST) BLOOD TYPE B Positive [facility] ANTIBODY SCREEN NEGATIVE [facility] 11/08/2024 10:1 4 AM EST 11/08/2024 10:16 AM EST Narrative [facility] - 11/08/2024 12:24 PM EST [facility] , [place] Neha Elmo DO [facility] Final Result [facility] TB documented in this encounter Visit Diagnoses Not on filedocumented in this encounter
[2025-05-07 10:53] VITALS: BP 130/93; PULSE 111
--- NOTE | 2025-05-07 11:33 | PC.NURSE ---
1130: Dr Borrego notified of BP and no orders received. Patient discharged.
== END 2025-05-07 11:34 | disposition home or self-care (01) ==
LOC: US 09:59 → FBC 10:23
PROVIDERS: Visit Provider Obstetrics & Gynecology
DX: O24.419 Gestational diabetes mellitus in pregnancy, unspecified control (principal); Z3A.34 34 weeks gestation of pregnancy
CPT/HCPCS: 76818

== ENCOUNTER 2025-05-09 13:56 | Outpatient (OUT) | payer BC, SELFPAY ==
--- OUTSIDE RECORDS SUMMARY | 2024-05-20 04:15 | XMS_ITS ---
Author Organization [facility] Address [address] [facility] [place] [address] Care Team Providers Care Rotary Cutter Name Role Phone Olimpia Cruz Primary Care Provider Steven Shane Unavailable [phone] REASON FOR VISIT MED RECHECK-AC Encounters Encounter Location Date Provider Diagnosis [facility] [address] [place] [address] 2023 Steven Shane Plan Of Treatment No Information Progress Notes * SEDALEDOB:1990 (34 yo F)Acc No.[id number]:05/20/2024 Behavioral Health Patient: LE ALCALA Provider: LARRY Sanders :1990 A ge:33 Y S ex:Female Date:05/20/2024 Address:[address] [place], [place] [phone] Pcp:Olimpia Cruz Subjective: * Chief Complaints: * 1 . MED RECHECK-AC. * Medical History: Objective: * Vitals: Assessment: Plan: * Treatment: * Images: * Electronic signature of LARRY Linder on 05/09/2025 at 01:59 PM EDT Sign off status: Pending * Provider: LARRY Sanders Date: 05/20/2024 Generated for Printi ng/Faxing/eTransmitting on: 05/09/2025 01:59 PM EDT
--- OUTSIDE RECORDS SUMMARY | 2024-06-04 10:45 | XMS_ITS ---
Author Organization [facility] es Address [address] [facility] [place] [address] Care Team Providers Care Personal Care Service Provider Name Role Phone Olimpia Cruz Primary Care Provider [phone] Diane Perdomo [phone] REASON FOR VISIT DISCUSS ASTHMA FLARE-AC Encounters Encounter Location Date Provider Diagnosis [address] [place] [address] 06/04/2024 Diane Perdomo Plan Of Treatment No Information Progress Notes * LE STACKDOB:1990 (34 yo F)Acc No.[id number]:06/04/2024 Progress Notes Patient: LE ALCALA Appointment Provider: Jose Perdomo NP :1990 A ge:33 Y S ex:Female Date:06/04/2024 Address:[address] [place], [place] [phone] Pcp:Olimpia Cruz Subjective: * Chief Complaints: * 1 . DISCUSS ASTHMA FLARE-AC. * Medical History: Objective: * Vitals: Assessment: Plan: * Treatment: * Images: * Electronic signature of Ryan Perdomo CNP on 05/09/2025 at 01:59 PM EDT Sign off status: Pending * Appointment Provider: Jose Perdomo NP Date: 06/04/2024 Generated for Printi ng/Faxing/eTransmitting on: 05/09/2025 01:59 PM EDT
--- OUTSIDE RECORDS SUMMARY | 2025-04-30 14:00 | XMS_ITS | Encounter Summary ---
Author Organization [facility] Address [address] [place] [address] Care Team Providers Care Woods Overseer Name Role Phone Unavailable Primary Care Provider Unavailabl e Reason for Visit * Reason Comments Routine Visit Blood Pressure Check Encounter Details Date Type Department Care Team (Late st Contact Info) Description 04/30/2025 2:00 PM EDT Routine [facility] OB [address] [facility] [place] [phone] Lindsey Guajardo PA [address] [place] [address] 33 weeks gestation of (HHS-HCC); Third trimester [...] to check FSBS. Blood Glucose Monitoring Suppl ([employer] Glucometer) w/Device kit 1 kit, Does not [...] Diagnosis Date Noted Vaginal bleeding affecting early ([facility]) 11/06/2024 headache, antepartum ([facility]) 12/25/2024 Elevated blood pressure affecting , antepartum ([facility]) 01/16/2025 Insulin controlled gestational diabetes mellitus (GDM) in third trimester ([facility]) 04/21/2025 Multigravida of advanced maternal age in third trimester ([facility]) 04/21/2025 Hypertension 04/21/2025 Third trimester ([facility]) 04/21/2025 Resolved Ambulatory Problems Diagnosis Date Noted No Resolved Ambulatory Problems Past Medical History: Diagnosis Date ADHD (attention deficit hyperactivity disorder) Anxiety Gestational diabetes ([facility]) Insulin resistance PCOS (polycystic ovarian syndrome) HISTORY PAST MEDICAL HISTORY SOCIAL HISTORY Past Medical History: Diagnosis Date ADHD (attention deficit hyperactivity disorder) Anxiety Gestational diabetes ([facility]) Hypertension Insulin resistance PCOS (polycystic ovarian [...] Vitals: Estimated body mass index is 34.27 kg/m² as calculated from the following: Height as of 05/06/24: 5' 7 . Weight as of this encounter: 218 lb 12.8 oz. BP: 146/90 Patient's last menstrual period was 08/23/2024. ASSESSMENT & PLAN ICD-10-CM 1. 33 weeks gestation of ([facility]) Z3A.33 POCT urinalysis dipstick manually resulted 2. Third trimester ([facility]) Z34.93 POCT urinalysis dipstick manually resulted 3. High blood pressure affecting in third trimester, antepartum ([facility]) O16.3 Patient presents today for headaches, elevated [...] AM EDT Routine [facility] OB [address] [facility] [place] [phone] Mik Borrego, [address] [place] [address] 05/19/2025 9:40 AM EDT Routine [facility] OB [address] [place] [address] [place] [phone] Mik Borrego [facility] [place] [address] Scheduled Orders Name Type Priority Associated Diagnoses Orde r Schedule Creatinine Lab Routine induced hypertension, antepartum ([facility]) Expected: 04/30/2025 (Approximate), Expires: 04/30/2026 Protein, urine, 24 hour Lab Routine induced hypertension, antepartum ([facility]) Expected: 04/30/2025 (Approximate), Expires: 04/30/2026 Pt and ptt Lab Routine induced hypertension, antepartum ([facility]) Expected: 04/30/2025, Expires: 04/30/2026 CBC and differential Lab Routine induced hypertension, antepartum ([facility]) Expected: 04/30/2025 (Approximate), Expires: 04/30/2026 Uric acid Lab Routine induced hypertension, antepartum ([facility]) Expected: 04/30/2025 (Approximate), Expires: 04/30/2026 Lactate dehydrogenase Lab Routine induced hypertension, antepartum ([facility]) Expected: 04/30/2025, Expires: 04/30/2026 ALT Lab Routine induced hypertension, antepartum ([facility]) Expected: 04/30/2025 (Approximate), Expires: 04/30/2026 AST Lab Routine induced hypertension, antepartum ([facility]) Expected: 04/30/2025 (Approximate), Expires: 04/30/2026 BUN Lab Routine induced hypertension, antepartum ([facility]) Expected: 04/30/2025, Expires: 04/30/2026 documented as of this encounter Procedures Procedure Name Priority Date/Time Associated Diagnosis Comments POCT URINALYSIS DIPSTICK Routine 04/30/2025 2:19 PM EDT 33 weeks gestation of ([facility]) Third trimester ([facility]) documented in this encounter Results * (ABNORMAL) [...]
--- OUTSIDE RECORDS SUMMARY | 2025-05-05 09:10 | XMS_ITS | Encounter Summary ---
Author Organization [facility] Address [address] [place] [address] Care Team Providers Care Construction And Maintenance Inspector Name Role Phone Unavailable Primary Care Provider Unavailabl e Reason for Visit * Reason Comments Routine Visit Encounter Details Date Type Department Care Team ([facility] Contact Info) Description 05/05/2025 9:10 AM EDT Routine [facility] OB [address] [place] [phone] Mik Borrego, DO [address] [place] [address] 34 weeks gestation of ([facility]HS-HCC); Third trimester ([facility]); High blood pressure affecting in third trimester, antepartum ([facility]); induced hypertension, antepartum ([facility]); Insulin controlled gestational diabetes mellitus (GDM) in third trimester ([facility]-HCC); Multigravida of advanced maternal age in third trimester ([facility]-HCC); Gestational diabetes mellitus (GDM), antepartum, gestational diabetes method of control unspecified ([facility]) Social History Tobacco Use Types Packs/Day [...] this encounter Progress Notes * Kimi Buckner, LABOR SERVICE REPRESENTATIVE - 05/05/2025 9:10 AM EDT Reason for [...] Date Noted Vaginal bleeding affecting early ([facility]) 11/06/2024 headache, antepartum ([facility]) 12/25/2024 Elevated blood pressure affecting , antepartum ([facility]) 01/16/2025 Insulin controlled gestational diabetes mellitus (GDM) in third trimester ([facility]) 04/21/2025 Multigravida of advanced maternal age in third trimester ([facility]) 04/21/2025 Hypertension 04/21/2025 Third trimester ([facility]) 04/21/2025 Resolved Ambulatory Problems Diagnosis Date Noted No Resolved Ambulatory Problems Past Medical History: Diagnosis Date ADHD (attention deficit hyperactivity disorder) Anxiety Gestational diabetes ([facility]) Insulin resistance PCOS (polycystic ovarian syndrome) HISTORY PAST MEDICAL HISTORY SOCIAL HISTORY Past Medical History: Diagnosis Date ADHD (attention deficit hyperactivity disorder) Anxiety Gestational diabetes ([facility]) Hypertension Insulin resistance PCOS (polycystic ovarian [...] nursing note reviewed. Exam conducted with a pump runner present. Vitals: Estimated body mass index is 33.85 kg/m² as calculated from the following: Height as of 24: 5' 7 . Weight as of this encounter: 216 lb 1.9 oz. BP: 140/86 Patient's last menstrual period was 08/23/2024. ASSESSMENT & PLAN ICD-10-CM 1. 34 weeks gestation of ([facility]) Z3A.34 POCT urinalysis dipstick manually resulted 2. Third trimester ([facility]) Z34.93 POCT urinalysis dipstick manually resulted 3. High blood pressure affecting in third trimester, antepartum ([facility]) O16.3 4. induced hypertension, antepartum ([facility]) O13.9 5. Insulin controlled gestational diabetes mellitus (GDM) in third trimester ([facility]) O24.414 6. Multigravida of advanced maternal age in third trimester ([facility]) O09.523 7. Gestational diabetes mellitus (GDM), antepartum, gestational diabetes method of control unspecified ([facility]) O24.419 Patient presents today for a [...] [address] [place] [phone] Mik Borrego DO [address] [place] [address] 05/19/2025 9:40 AM EDT Routine [facility] OB [address] [place] [phone] ElmoMik parikh, DO [address] [place] [address] [address] [place], [place] [phone] documented as of this encounter Procedures Procedure Name Priority Date/Time Associated Diagnosis Comments POCT URINALYSIS DIPSTICK Routine 05/05/2025 10:56 AM EDT 34 weeks gestation of ([facility]) Third trimester ([facility]) documented in this encounter Results * [...] Visit Diagnoses Diagnosis 34 weeks gestation of ([facility]) Third trimester ([facility]) state, incidental High blood pressure affecting in third trimester, antepartum ([facility]) induced hypertension, antepartum ([facility]) Transient hypertension of , antepartum Gestational diabetes mellitus (GDM), antepartum, gestational diabetes method of control unspecified ([facility]) Multigravida of advanced maternal age in third trimester ([facility]) documented in this encounter
--- OUTSIDE RECORDS SUMMARY | 2025-05-09 13:58 | XMS_ITS | Encounter Summary ---
Author Organization [facility] Address [address] [place] [address] Care Team Providers Care Dean Of Faculty Name Role Phone Unavailable Primary Care Provider Unavailabl e Encounter Details Date Type Department Care Team (Late st Contact Info) Description 01/22/2025 Abstract [facility] BCP OB [address] [place] [address] Mik Borrego DO [facility] [place], [facility]11 Social [...] [address] Mik Borrego, DO [address] [place], [facility]11 05/19/2025 9:40 AM EDT Routine [facility] BCP OB [address] [place] [address] Mik Borrego DO [facility] [place], [facility]11 documented as of this encounter Visit Diagnoses Not on filedocumented in this encounter
--- OUTSIDE RECORDS SUMMARY | 2025-05-09 13:58 | XMS_ITS | Encounter Summary ---
Author Organization [facility] Address [address] [place] [address] Care Team Providers Care Lapidarist Name Role Phone Unavailable Primary Care Provider Unavailabl e Encounter Details Date Type Department Care Team (Late st Contact Info) Description 02/03/2025 Abstract [facility] BCP OB [address] [place] [address] Mik Borrego DO [facility] [place], [facility]11 Social History Tobacco Use Types Packs/Day [...] [address] Mik Borrego, DO [address] [place], [facility] 05/19/2025 9:40 AM EDT Routine [facility] BCP OB [address] [place] [address] Mik Borrego DO [facility] [place], [facility]11 documented as of this encounter Visit Diagnoses Not on filedocumented in this encounter
--- OUTSIDE RECORDS SUMMARY | 2025-05-09 13:58 | XMS_ITS | Encounter Summary ---
Author Organization [facility] Address [address] [place] [address] Care Team Providers Care Simulation Software Engineer Name Role Phone Unavailable Primary Care Provider Unavailabl e Encounter Details Date Type Department Care Team (Late st Contact Info) Description 02/04/2025 Abstract [facility] BCP OB [address] [place] [address] Mik Borrego DO [facility] [place], [facility]11 Social History Tobacco Use Types Packs/Day [...] Routine NOMS BCP OB [address] [place] [address] Mik Borrego, DO [address] [place], [facility]11 05/19/2025 9:40 AM EDT Routine [facility] BCP OB [address] [place] [address] Mik Borrego DO [facility] [place], [facility]11 documented as of this encounter Visit Diagnoses Not on filedocumented in this encounter
--- OUTSIDE RECORDS SUMMARY | 2025-05-09 13:58 | XMS_ITS | Encounter Summary ---
Author Organization [facility] Address [address] [place] [address] Care Team Providers Care Health Care Administrator Name Role Phone Unavailable Primary Care Provider Unavailabl e Encounter Details Date Type Department Care Team (Late st Contact Info) Description 01/22/2025 Abstract [facility] BCP OB [address] [place] [address] Mik Borrego DO [facility] [place], [facility]11 Social History Tobacco Use [...] [address] Mik Borrego, DO [address] [place], [facility]11 05/19/2025 9:40 AM EDT Routine [facility]OM[facility] BCP OB [address] [place] [address] Mik Borrego DO [facility] [place], [facility]11 documented as of this encounter Visit Diagnoses Not on filedocumented in this encounter
--- OUTSIDE RECORDS SUMMARY | 2025-05-09 13:58 | XMS_ITS | Encounter Summary ---
Author Organization [facility] Address [address] [place] [address] Care Team Providers Care Cutter Brake Lining Name Role Phone Unavailable Primary Care Provider Unavailabl e Encounter Details Date Type Department Care Team (Late st Contact Info) Description 02/04/2025 Abstract [facility] BCP OB [address] [place] [address] Mik Borrego DO [facility] [place], [facility]11 Social History Tobacco Use Types Packs/Day [...] Routine NOMS BCP OB [address] [place] [address] Mik Borrego, DO [address] [place], [facility]11 05/19/2025 9:40 AM EDT Routine [facility] BCP OB [address] [place] [address] Mik Borrego DO [facility] [place], [facility]11 documented as of this encounter Visit Diagnoses Not on filedocumented in this encounter
--- OUTSIDE RECORDS SUMMARY | 2025-05-09 13:59 | XMS_ITS | Encounter Summary ---
Author Organization [facility] Address [address] [place] [address] Care Team Providers Care Poultry Scalder Name Role Phone Unavailable Primary Care Provider Unavailabl e Encounter Details Date Type Department Care Team (Late st Contact Info) Description 03/04/2025 Abstract [facility] BCP OB [address] [facility] [place] [address] Juanis [...] [place] [address] Mik Borrego DO [address] [place] [address] [place] [address] 05/19/2025 9:40 AM EDT Routine [facility] BCP OB [address] [place] [address] Mik Borrego DO [address] [place] [address] [place] [address] documented as of this encounter Visit Diagnoses Not on filedocumented in this encounter
--- OUTSIDE RECORDS SUMMARY | 2025-05-09 13:59 | XMS_ITS | Encounter Summary ---
Author Organization [facility] Address [address] [place] [address] Care Team Providers Care Skid Road Man Name Role Phone Unavailable Primary Care Provider Unavailabl e Encounter Details Date Type Department Care Team (Late st Contact Info) Description 01/17/2025 Abstract [facility] BCP OB [address] [place] [address] Mik Borrego DO [facility] [place], [facility]11 Social History Tobacco Use Types Packs/Day [...] Mik Borrego, DO [address] [place], [facility]11 05/19/2025 9:40 AM EDT Routine NOM[facility] BCP OB [address] [place] [address] Mik Borrego DO [facility] [place], [facility]11 documented as of this encounter Visit Diagnoses Not on filedocumented in this encounter
--- OUTSIDE RECORDS SUMMARY | 2025-05-09 13:59 | XMS_ITS | Encounter Summary ---
Author Organization [facility] Address [address] [place] [address] Care Team Providers Care Snack Steward Name Role Phone Unavailable Primary Care Provider Unavailabl e Encounter Details Date Type Department Care Team (Late st Contact Info) Description 04/01/2025 Abstract [facility] BCP OB [address] [facility] [place] [address] Juanis Esparza MA Social History Tobacco [...] Routine [facility]OMS BCP OB [address] [place] [address] Mik Borrego DO [address] [place] [address] [place] [address] 05/19/2025 9:40 AM EDT Routine [facility] BCP OB [address] [place] [address] Mik Borrego DO [address] [place] [address] [place] [address] documented as of this encounter Visit Diagnoses Not on filedocumented in this encounter
--- OUTSIDE RECORDS SUMMARY | 2025-05-09 13:59 | XMS_ITS | Encounter Summary ---
Author Organization [facility] Address [address] [place] [address] Care Team Providers Care Baker Paint Name Role Phone Unavailable Primary Care Provider Unavailabl e Encounter Details Date Type Department Care Team (Late st Contact Info) Description 05/07/2025 Clinisync Result Encounter NOMS External Department Unsolicited Neha Borrego, DO [address] [place], [facility]11 Social History Tobacco Use Types [...] NOMS BCP OB [address] [place] [address] Neha Borrego, DO [address] [place], [facility]11 05/19/2025 9:40 AM EDT Routine [facility] BCP OB [address] [place] [address] Neha Borrego, DO [address] [place], [facility]11 documented as of this encounter Procedures Procedure Name Priority Date/Time Associated Diagnosis Comments US OB BPP W NON-STRESS 05/07/2025 12:17 PM EDT documented in this encounter Results * US OB BPP W NON-STRESS (05/07/2025 12:17 PM EDT) Anatomical Region Laterality Modality Other 05/07/2025 12:1 7 PM EDT Narrative 05/07/2025 12:20 [place] [address] Ultrasound Report Signed Patient: LE WEEMS MR#: [id number] : 1990 Acct:[id number] Age/Sex: 34 / F ADM Date: 05/07/25 Loc: US Attending Dr: Neha Borrego D.O. Ordering Physician: Neha Borrego D.O. Date of Service: 05/07/25 Procedure(s): US OB BPP w non-stress Accession Number(s): [id number] cc: Neha Borrego D.O.; Physician,Non-Staff M.David [address] [address] Patient Name: EL WEEMS MRN: [id number] date: 1990 Sex: F Assigned Patient Location: US Current Patient Location: Accession/Order Number: [id number] Exam Date: 05/07/2025 12:16 Report Date: 05/07/2025 12:17 At the request of: NEHA BORREGO DO Procedure: US OB BPP w non-stress BIOPHYSICAL PROFILE: CLINICAL INFORMATION: GESTATIONAL DIABETES MELLITUS O24.419 COMPARISON: 05/06/2025 There is a single live intrauterine gestation in cephalic presentation. The reported gestational age is 34 weeks 6 days. The heart rate measures 159 beats per minute. FINDINGS: TONE: 1 or [...] greater than 2 cm [Y] 2/2 SARA: 13.4 cm. Total score: 8/8 US/US OB BPP w non-stress IMPRESSION: NORMAL BIOPHYSICAL PROFILE Impression dictated by: Mariam Olivares M.D. 05/07/2025 12:17 PM Dictation Location: [place] [address] Electronically authenticated by: [id number] Y Date: 05/07/2025 12:17 Dictated By: Mariam Olivares M.D. Signed By: 05/07/25 1220 DD/ 1217 TD/TT: Oceanic Sciences Professor: Procedure Note Radiology, Radiologist, MD - 05/07/2025 [place] [address] Ultrasound Report Signed Patient: LE WEEMS RMR#: [id number] : 1990Acct:[id number] Age/Sex: 34 / FADM Date: 05/07/25 Loc: US Attending Dr: Neha Borrego D.O. Ordering Physician: Neha Borrego D.O. Date of Service: 05/07/25 Procedure(s): US OB BPP w non-stress Accession Number(s): [id number] cc: Neha Borrego D.O.; Physician,Non-Staff Dileep The [address] [id number] Patient Name: LE WEEMS MRN: [id number] date: 1990 Sex: F Assigned Patient Location: Current Patient Location: Accession/Order Number: [id number] Exam Date: 05/07/2025 12:16 Report Date: 05/07/2025 12:17 At the request of: NEHA BORREGO DO Procedure: US OB BPP w non-stress BIOPHYSICAL PROFILE: CLINICAL INFORMATION: GESTATIONAL DIABETES MELLITUS O24.419 COMPARISON: 05/06/2025 There is a single live intrauterine gestation in cephalic presentation.The reported gestational age is 34 weeks 6 days. The heart ratemeasures 159 beats per minute. FINDINGS: TONE: 1 or [...] greater than 2 cm [Y] 2/2 SARA: 13.4 cm. Total score: 8/8 US/US OB BPP w non-stress IMPRESSION: NORMAL BIOPHYSICAL PROFILE Impression dictated by: Mariam Olivares M.D. 05/07/2025 12:17 PM Dictation Location: [place] [address] Electronically authenticated by: [id number] Y Date: 2:17 Dictated By: Mariam Olivares M.D. Signed By:05/07/25 1220 DD/ 1217 TD/TT: Oceanic Sciences Professor: us Neha Jaino DO [facility] Final Result documented in this encounter Visit Diagnoses Not on filedocumented in this encounter
--- OUTSIDE RECORDS SUMMARY | 2025-05-09 13:59 | XMS_ITS | Encounter Summary ---
Author Organization [facility] Address [address] [place] [address] Care Team Providers Care Harp Repairer Name Role Phone Unavailable Primary Care Provider Unavailabl e Encounter Details Date Type Department Care Team (Late st Contact Info) Description 05/05/2025 Bamboo flowsheet [facility] BCP OB [address] [place] [address] Mik Borrego, DO [address] [place], [place] [address] Social History Tobacco Use Types Packs/Day Years [...] Routine [facility] BCP OB [address] [place] [address] Mik Borrego, DO [address] [place], [place] [address] 05/19/2025 9:40 AM EDT Routine [facility] BCP OB [address] [place] [address] Mik Borrego, DO [address] [place], [facility]11 documented as of this encounter Visit Diagnoses Not on filedocumented in this encounter
--- OUTSIDE RECORDS SUMMARY | 2025-05-09 13:59 | XMS_ITS | Encounter Summary ---
Author Organization [facility] Address [address] [place] [address] Care Team Providers Care Breaker Up Machine Operator Name Role Phone Unavailable Primary Care Provider Unavailabl e Encounter Details Date Type Department Care Team (Late st Contact Info) Description 09/16/2024 Abstract [facility] OB [address] [place] [phone] Mik Borrego DO [facility] [place], [place] [address] Social History Tobacco Use Types Packs/Day Years [...] Description 05/12/2025 9:10 AM EDT Routine [facility] OB [facility] [place] [phone] Mik Borrego DO [facility] [place], [place] [phone] 05/19/2025 9:40 AM EDT Routine [facility] OB [facility] [place] [phone] Mik Borrego DO [facility] [place], [facility]11 documented as of this encounter Visit Diagnoses Not on filedocumented in this encounter
--- OUTSIDE RECORDS SUMMARY | 2025-05-09 13:59 | XMS_ITS | Clinical Summary ---
Author Organization [facility] Address [address] [place] [address] Care Team Providers Care Gun Welder Name Role Phone Unavailable Primary Care Provider [...] evening. Inject before meals. 3 mL 5 Active insulin syringe 29G X 1/2 0.5 [...] al diabetes mellitus (GDM) in third trimester ([facility]) 04/21/2025 Multigravida of advanced mat ernal age in third trimester ([facility]) 04/21/2025 Hypertension 04/21/2025 Third trimester ([facility]) 04/21/2025 Elevated blood pressure affe cting , antepartum ([facility]) 01/16/2025 headache, antepartum ([facility]) 025 Vaginal bleeding affecting early ([facility]) 11/06/2024 Estimated Date of Delivery Comme nts Yes 06/12/2025 Based on Ultraso und Encounters Date Type Department Care Team Description 05/07/2025 Clinisync Result Encounter [facility] External Department Unsolicited Neha Borrego, 05/06/2025 Clinisync Result Encounter NOMS External Department Unsolicited Neha Borrego, DO 05/05/2025 9:10 AM EDT Routine [place] [address] [place] [address] Neha Borrego, 34 weeks gestation of ([facility]); Third trimester ([facility]); High blood pressure affecting in third trimester, antepartum ([facility]); induced hypertension, antepartum ([facility]); Insulin controlled gestational diabetes mellitus (GDM) in third trimester ([facility]); Multigravida of advanced maternal age in third trimester ([facility]); Gestational diabetes mellitus (GDM), antepartum, gestational diabetes method of control unspecified ([facility]) 05/05/2025 Abstract [facility] [place] [address] [place] [address] Neha Borrego, DO 05/05/2025 Bamboo flowsheet [facility] [address] [place] [address] Neha Borrego, DO 04/30/2025 2:00 PM EDT Routine [facility] OB [address] [facility] [place] [address] Lindsey Guajardo PA 33 weeks gestation of ([facility]); Third trimester ([facility]); High blood pressure affecting in third trimester, antepartum ([facility]); induced hypertension, antepartum ([facility]) 04/30/2025 Telephone [facility] OB [address] [facility] [place] [address] Juanis Esparza MA 04/30/2025 Clinisync Result Encounter [facility] External Department Unsolicited Neha Borrego, 04/30/2025 Clinisync Result Encounter [facility] External Department Unsolicited Neha Borrego, DO 04/23/2025 Clinisync Result Encounter [facility] External Department Unsolicited Neha Borrego, DO 04/22/2025 Abstract [facility] OB [address] [facility] [place] [address] Neha Borrego, 04/21/2025 3:20 PM EDT Routine [facility] OB [address] [facility] [place] [address] Neha Borrego, Third trimester ([facility]); 32 weeks gestation of ([facility]); Insulin controlled gestational diabetes mellitus (GDM) in third trimester ([facility]); Multigravida of advanced maternal age in third trimester ([facility]); Hypertension, unspecified type 04/21/2025 Bamboo flowsheet [facility] OB [address] [facility] [place] [address] Neha Borrego, 04/14/2025 9:00 AM EDT Routine [facility] OB [address] [place] [address] Neha Borrego, Third trimester ([facility]); 31 weeks gestation of ([facility]) 04/14/2025 Bamboo flowsheet [facility] OB [address] [place] [address] [place] [address] Neha Borrego, 04/09/2025 Telephone [facility] OB [address] [place] [address] [place] [phone] Mima OwusuSUSAN 04/08/2025 11:10 AM EDT Routine [facility] [address] [place] [phone] Neha Borrego, Third trimester ([facility]); 30 weeks gestation of ([facility]); Gestational diabetes mellitus (GDM), antepartum, gestational diabetes method of control unspecified ([facility]) 04/08/2025 Bamboo flowsheet [facility]OM[facility] [address] [place] [address] Neha Borrego, 04/01/2025 Abstract [facility] [address] [place] [address] Juanis Espar[place], [place] 03/24/2025 11:10 AM EDT Routine [facility] [address] [place] [address] Neha Borrego, Gestational diabetes mellitus (GDM), antepartum, gestational diabetes method of control unspecified ([facility]); Multigravida of advanced maternal age in third trimester ([facility]); Third trimester ([facility]); 28 weeks gestation of ([facility]) 03/24/2025 Bamboo flowsheet [facility] OB [address] [place] [address] [place] [address] Neha Borrego, 03/21/2025 Refill [facility] OB [address] [facility] [place] [address] Neha Borrego, headache, antepartum ([facility]) 03/04/2025 Abstract [facility] OB [address] [place] [address] [place] [address] Juanis Esparza [place] 02/24/2025 10:20 AM EDT Routine [facility] [address] [place] [address] Neha Borrego DO Second trimester ([facility]); 24 weeks gestation of ([facility]) 02/24/2025 Bamboo flowsheet [facility] [address] [place] [address] Neha Borrego DO 02/18/[address] [address] [place] [address] Larisa Chowdary MA from Last 3 [...] Description 05/12/2025 9:10 AM EDT Routine [facility] [address] [place] [address] Neha Borrego, [facility] [place] [address] 05/19/2025 9:40 AM EDT Routine [facility] BCP OB [address] [facility] [place] [address] Neha Borrego, DO [address] [facility] [place] [address] Health Maintenance Due Date Last Done Comments Influenza Vaccine (#1) 2025 Cervical Cancer Screening 09/16/2029 HPV/Cotest 09/16/2029 08/05/2020 Pap Smear 09/16/2029 09/16/2024 Procedures Procedure Name Priority Date/Time Associated Diagnosis Comments US OB BPP W NON-STRESS 05/07/2025 12:17 PM EDT US OB BPP W NON-STRESS 05/06/2025 9:29 AM EDT POCT URINALYSIS DIPSTICK Routine 05/05/2025 10:56 AM EDT 34 weeks gestation of ([facility]) Third trimester ([facility]) TBH URINE T PROTEIN CREAT RATIO Routine 04/30/2025 4:30 PM EDT ALL URIC ACID Routine 04/30/2025 3:08 PM EDT ALL LDH Routine 04/30/2025 3:08 PM EDT [facility] CMP (CMP) (FOR REMOTE [facility] USE) Routine 04/30/2025 3:08 PM EDT ALL CBC WITH AUTO DIFF Routine 04/30/2025 3:08 PM EDT POCT URINALYSIS DIPSTICK Routine 04/30/2025 2:19 PM EDT 33 weeks gestation of ([facility]) Third trimester ([facility]) US OB BPP W NON-STRESS 04/30/2025 7:10 AM EDT US OB GROWTH 04/30/2025 7:10 AM EDT US OB BPP W NON-STRESS 04/23/2025 8:03 AM EDT POCT URINALYSIS DIPSTICK Routine 04/21/2025 3:40 PM EDT Third trimester ([facility]) POCT URINALYSIS DIPSTICK Routine 04/14/2025 9:09 AM EDT Third trimester ([facility]) 31 weeks gestation of ([facility]) POCT URINALYSIS DIPSTICK Routine 04/08/2025 11:35 AM EDT Third trimester ([facility]) POCT URINALYSIS DIPSTICK Routine 03/24/2025 11:50 AM EDT Gestational diabetes mellitus (GDM), antepartum, gestational diabetes method of control unspecified ([facility]) POCT URINALYSIS DIPSTICK Routine 02/24/2025 10:57 AM EDT Second trimester ([facility]) 24 weeks gestation of ([facility]) PAP SMEAR Routine 09/16/2024 12:00 AM EST THINPREP TIS PAP REFLEX HPV MRNA E6/E7 (72242) Routine 08/05/2020 from Last 3 Months or Most Recently Relevant to Health Maintenance Results * US OB BPP W NON-STRESS (05/07/2025 12:17 PM EDT) Only the most recent of4 resultswithin the time period is included. Anatomical Region Laterality Modality Other 05/07/2025 12:1 7 PM EDT Narrative 05/07/2025 12:20 PM EDT The [address] [address] Ultrasound Report Signed Patient: LE WEEMS MR#: [id number] : 1990 Acct:[id number] Age/Sex: 34 / F ADM Date: 05/07/25 Loc: US Attending Dr: Neha Borrego D.O. Ordering Physician: Neha Borrego D.O. Date of Service: 05/07/25 Procedure(s): US OB BPP w non-stress Accession Number(s): [id number] cc: Neha Borrego D.O.; Physician,Non-Staff Navdeep.David [place] [address] Patient Name: LE WEEMS MRN: [facility]:[id number] date: 1990 Sex: F Assigned Patient Location: US Current Patient Location: Accession/Order Number: [id number] Exam Date: 05/07/2025 12:16 Report Date: 05/07/2025 [...] Olivares M.D. 05/07/2025 12:17 PM Dictation Location: [place] [address] Electronically authenticated by: [id number] Y Date: 05/07/2025 12:17 Dictated By: Mariam Olivares M.D. Signed By: 05/07/25 1220 DD/ 1217 TD/TT: Monument Mason: Procedure Note Radiology, Radiologist, - 05/07/[address] [address] Ultrasound Report Signed Patient: LE WEEMS RMR#: [id number] : 1990Acct:[id number] Age/Sex: 34 / FADM Date: 05/07/25 Loc: US Attending Dr: Neha Borrego D.O. Ordering Physician: Neha Borrego D.O. Date of Service: 05/07/25 Procedure(s): US OB BPP w non-stress Accession Number(s): [id number] cc: Neha Borrego D.O.; Physician,Non-Staff Dileep The [address] [address] Patient Name: LE WEEMS MRN: [facility]:[id number] date: 1990 Sex: F Assigned Patient Location: US Current Patient Location: Accession/Order Number: [id number] Exam Date: 05/07/2025 12:16 Report Date: 05/07/2025 12:17 At the request of: NEHA BORREOG DO Procedure: US OB BPP w non-stress [...] Olivares M.D. 05/07/2025 12:17 PM Dictation Location: [place] [address] Electronically authenticated by: [id number] Y Date: 2:17 Dictated By: Mariam Olivares M.D. Signed By:05/07/25 1220 DD/ 1217 TD/TT: Monument Mason: Neha Elmo DO [facility] IMAG[facility] Final Result * (ABNORMAL) [...] Urine 05/05/2025 10:5 6 AM EDT Neha Elmo DO POINT OF CARE TEST [...] [facility] CMP (CMP) (FOR REMOTE [facility] USE) (04/30/2025 3:08 PM EDT) SODIUM 143 136 - 145 mmol/L TBH POTASSIUM 3.4(L) 3.5 - 5.1 mmol/L TBH CHLORIDE 106 98 - 107 mmol/L TBH CARBON DIOXIDE 22.6 21.0 - 32.0 mmol/L TBH ANION GAP 17.8 TBH GLUCOSE 108(H) 74 - 106 mg/dL TBH BLOOD UREA NITROGEN 9.0 7.0 - 18.0 mg/dL TBH CREATININE 0.60 0.55 - 1.02 mg/dL TBH TBH EGFR-AF KAZAKH >60 >=60 mL/min/1. 73m 2 TBH TBH EGFR-NON AF KAZAKH >60 >=60 mL/min/1. 73m 2 TBH BUN [...] DO CLINISYNC Final Result Performing Organization Address [facility]/ZIP Co de Phone Number [facility] * ALL LDH (04/30/2025 3:08 PM EDT) [facility] LACTATE DEHYDROGENASE 147 81 - 234 U/L TB 04/30/2025 3:08 PM EDT 04/30/2025 3:12 PM EDT Narrative CLINISYNC - 04/30/2025 3:44 PM EDT [facility] Elmo DO CLINISYNC Final Result Performing Organization Address [facility] de Phone Number [facility] * (ABNORMAL) ALL CBC WITH AUTO DIFF (04/30/2025 3:08 PM EDT) [facility] WBC 11.6(H) 4.0 - 11.0 10 3/uL TBH TB RBC 4.37 4.20 - 5.40 10 6/uL TBH TB HGB 12.5 12.0 - 16.0 g/dL TB TB HCT 37.8 36.0 - 48.0 % TB TB MCV 86.5 81.0 - 99.0 fL [...] - 04/30/2025 3:17 PM EDT us Neha Borrego DO CLINISYTOMASA Final Result [facility] * US OB GROWTH (04/30/2025 7:10 AM EDT) Anatomical Region Laterality Modality Other 04/30/2025 7:10 AM EDT Narrative 04/30/2025 7:13 [place] [address] Ultrasound Report Signed Patient: LE WEEMS MR#: [id number] : 1990 Acct:[id number] Age/Sex: 34 / F ADM Date: 04/29/25 Loc: US Attending Dr: Neha Borrego D.O. Ordering Physician: Neha Borrego D.O. Date of Service: 04/29/25 Procedure(s): US OB growth Accession Number(s): [id number] cc: Neha Borrego D.O.; Physician,Non-Staff M.DNikos [place] [id number] Patient Name: LE WEEMS MRN: [facility]:[id number] date: 1990 Sex: F Assigned Patient Location: Current Patient Location: Accession/Order Number: [id number] Exam Date: 04/30/2025 07:02 Report Date: 04/30/2025 [...] [Y] 2/2 SARA: 14.2 cm Total score: 8 IMPRESSION: NORMAL BIOPHYSICAL PROFILE Impression dictated by: Mariam Olivares M.D. 04/30/2025 7:10 AM Dictation Location: [place] [address] Electronically authenticated by: [id number] Y Date: 04/30/2025 07:10 Dictated By: Mariam Olivares M.D. Signed By: 04/30/25712 DD/ 9 TD/TT: Monument Mason: Procedure Note Radiology, Radiologist, - 04/30/2025 [place] [address] Ultrasound Report Signed Patient: LE WEEMSMR#: [id number] : 1990Acct:[id number] Age/Sex: 34 / FADM Date: 04/29/25 Loc: US Attending Dr: Neha Borrego D.O. Ordering Physician: Neha Borrego D.O. Date of Service: 04/29/25 Procedure(s): US OB growth Accession Number(s): [id number] cc: Neha Borrego D.O.; Physician,Non-Staff Dileep The [place] [id number] Patient Name: LE WEEMS MRN: H:[id number] date: 1990 Sex: F Assigned Patient Location: Current Patient Location: Accession/Order Number: [id number] Exam Date: 04/30/2025 07:02 Report Date: 04/30/2025 [...] Olivares M.D. 04/30/2025 7:10 AM Dictation Location: [place] [address] Electronically authenticated by: [id number] Y Date: 507:10 Dictated By: Mariam Olivares M.D. Signed By:04/30/25 0713 DD/ 0710 TD/TT: Monument Mason: us Neha Elmo DO [facility]AG[facility] Final Result * Pap Smear (09/16/2024 12:00 AM EST) Swab Cervical swab / Unknown us Neha Elmo DO LAB CYTOLOGY ORDERABLES Final Re sult EXTERNAL LAB * THINPREP TIS PAP REFLEX HPV MRNA E6/E7 (00681) (08/05/2020) CLINICAL INFORMATION: None given [facility] [...] LAB Comment: [facility], CT(ASCP) CT screening location: [facility], [address] [place] [address]. COMMENT SEE COMMENT [facility] EXTERNAL [...] Most Recently Relevant to Health Maintenance Insurance [facility]
--- OUTSIDE RECORDS SUMMARY | 2025-05-09 13:59 | XMS_ITS | Encounter Summary ---
Author Organization [facility] News[employer] [facility] Address [id number] [address] [place] [address] Care Team Providers Care Electrocardiograph Technician Name Role Phone Unavailable Primary Care Provider Unavailabl e Encounter Details Date Type Department Care Team (Late st Contact Info) Description 12/06/2024 Orders Only Maternal- Medicine at [facility] [address] [place] [address] Ref Prov, [place] [address] Social History Tobacco Use Types Packs/Day Years [...]
--- OUTSIDE RECORDS SUMMARY | 2025-05-09 13:59 | XMS_ITS | Encounter Summary ---
Author Organization [facility] Address [address] [place] [address] Care Team Providers Care Chef French Name Role Phone Unavailable Primary Care Provider Unavailabl e Encounter Details Date Type Department Care Team (Late st Contact Info) Description 11/11/2024 Abstract [facility] B[facility] OB [address] [place] [address] Mik Borrego DO [facility] [place], [facility]11 Social History Tobacco Use Types [...] Routine [facility] BCP OB [address] [place] [address] Mik Borergo, DO [address] [place], [facility]11 05/19/2025 9:40 AM EDT Routine [facility] BCP OB [address] [place] [address] Mik Borrego DO [facility] [place], [facility]11 documented as of this encounter Visit Diagnoses Not on filedocumented in this encounter
--- OUTSIDE RECORDS SUMMARY | 2025-05-09 13:59 | XMS_ITS | Encounter Summary ---
Author Organization [facility] Address [address] [place] [address] Care Team Providers Care Branch Store Manager Name Role Phone Unavailable Primary Care Provider Unavailabl e Encounter Details Date Type Department Care Team (Late st Contact Info) Description 04/30/2025 Clinisync Result Encounter [facility] External Department Unsolicited Neha Borrego, DO [address] [place], [facility]11 Social History Tobacco Use Types [...] Routine [facility] BCP OB [address] [place] [address] Neha Borrego, DO [address] [place], [facility]11 05/19/2025 9:40 AM EDT Routine [facility] BCP OB [address] [place] [address] Neha Borrego, DO [address] [place], [facility]11 documented as of this encounter Procedures Procedure Name Priority Date/Time Associated Diagnosis Comments TBH URINE T PROTEIN CREAT RATIO Routine 04/30/2025 4:30 PM EDT [facility] CMP (CMP) (FOR REMOTE [facility] USE) Routine 04/30/2025 3:08 PM EDT ALL [...] [facility] CMP (CMP) (FOR REMOTE [facility] USE) (04/30/2025 3:08 PM EDT) SODIUM 143 136 - 145 mmol/L TBH POTASSIUM 3.4(L) 3.5 - 5.1 mmol/L TBH CHLORIDE 106 98 - 107 mmol/L TBH CARBON DIOXIDE 22.6 21.0 - 32.0 mmol/L TBH ANION GAP 17.8 TBH GLUCOSE 108(H) 74 - 106 mg/dL TBH BLOOD UREA NITROGEN 9.0 7.0 - 18.0 mg/dL TBH CREATININE 0.60 0.55 - 1.02 mg/dL TBH TBH EGFR-AF MALTESE >60 >=60 mL/min/1. 73m 2 TBH TBH EGFR-NON AF MALTESE >60 >=60 mL/min/1. 73m 2 TBH BUN [...] AUTO DIFF (04/30/2025 3:08 PM EDT) Pathologist [facility] TB WBC 11.6(H) 4.0 - 11.0 10 [...] DO CLINISYNC Final Result Performing Organization Address City/State/[facility] Co de Phone Number [facility] * US OB BPP W NON-STRESS (04/30/2025 7:10 AM EDT) Anatomical Region Laterality Modality Other 04/30/2025 7:10 AM EDT Narrative 04/30/2025 7:13 [place] [address] Ultrasound Report Signed Patient: LE WEEMS MR#: [id number] : 1990 Acct:[id number] Age/Sex: 34 / F ADM Date: 04/29/25 Loc: US Attending Dr: Neha Borrego D.O. Ordering Physician: Neha Borrego D.O. Date of Service: 04/29/25 Procedure(s): US OB BPP w non-stress Accession Number(s): [id number] cc: Neha Borrego D.O.; Physician,Non-Staff M.David The [address] [id number] Patient Name: LE WEEMS MRN: [facility]:[id number] date: 1990 Sex: F Assigned Patient Location: [facility] Current Patient Location: Accession/Order Number: [id number] Exam Date: 04/30/2025 07:02 Report Date: 04/30/2025 [...] Olivares M.D. 04/30/2025 7:10 AM Dictation Location: [place] [address] Electronically authenticated by: [id number] Y Date: 04/30/2025 07:10 Dictated By: Mariam Olivares M.D. Signed By: 04/30/25 0713 DD/ 0710 TD/TT: Piano Technician: Procedure Note Radiology, Radiologist, - 04/30/2025 [place] [address] Ultrasound Report Signed Patient: LE WEEMSMR#: [id number] : 1990Acct:[id number] Age/Sex: 34 / FADM Date: 04/29/25 Loc: US Attending Dr: Neha Borrego D.O. Ordering Physician: Neha Borrego D.O. Date of Service: 04/29/25 Procedure(s): US OB BPP w non-stress Accession Number(s): [id number] cc: Neha Borrego D.O.; Physician,Non-Staff M.DNikos [place] [id number] Patient Name: LE WEEMS MRN: [facility]:[id number] date: 1990 Sex: F Assigned Patient Location: [facility] Current Patient Location: Accession/Order Number: [id number] Exam Date: 04/30/2025 07:02 Report Date: 04/30/2025 [...] Olivares M.D. 04/30/2025 7:10 AM Dictation Location: [place] [address] Electronically authenticated by: [id number] Y Date: 7:10 Dictated By: Mariam Olivares M.D. Signed By:04/30/25 0713 DD/ 0710 TD/TT: Piano Technician: us Neha Elmo DO [facility] IMAG[facility] Final Result documented in this encounter Visit Diagnoses Not on filedocumented in this encounter
--- OUTSIDE RECORDS SUMMARY | 2025-05-09 13:59 | XMS_ITS | Encounter Summary ---
Author Organization [facility] Address [address] [place] [address] Care Team Providers Care Sexual Assault Response Coordinator Name Role Phone Unavailable Primary Care Provider Unavailabl e Encounter Details Date Type Department Care Team (Late st Contact Info) Description 04/30/2025 Clinisync Result Encounter NOMS External Department Unsolicited Neha Borrego, DO [address] [place], [facility]11 Social History Tobacco Use Types [...] [facility]OMS BCP [place] [address] [place] [phone] Neha Borrego, DO [address] [place] [address], [facility]11 05/19/2025 9:40 AM EDT Routine [facility] BCP OB [address] [place] [address] Neha Borrego, DO [address] [place] [address], [facility]11 documented as of this encounter Procedures Procedure Name Priority Date/Time Associated Diagnosis Comments US OB GROWTH 04/30/2025 7:10 AM EDT documented in this encounter Results * US OB GROWTH (04/30/2025 7:10 AM EDT) Anatomical Region Laterality Modality Other 04/30/2025 7:10 AM EDT Narrative 04/30/2025 7:13 [place] [address] Ultrasound Report Signed Patient: LE WEEMS MR#: [id number] : 1990 Acct:[id number] Age/Sex: 34 / F ADM Date: 04/29/25 Loc: US Attending Dr: Neha Borrego D.O. Ordering Physician: Neha Borrego D.O. Date of Service: 04/29/25 Procedure(s): US OB growth Accession Number(s): [id number] cc: Neha Borrego D.O.; Physician,Non-Staff M.DNikos The [place] [address] Patient Name: LE WEEMS MRN: [id number] date: 1990 Sex: F Assigned Patient Location: Current Patient Location: Accession/Order Number: [id number] Exam Date: 04/30/2025 07:02 Report Date: 04/30/2025 [...] Olivares M.D. 04/30/2025 7:10 AM Dictation Location: [place] [address] Electronically authenticated by: [id number] Y Date: 04/30/2025 07:10 Dictated By: Mariam Olivares M.D. Signed By: 04/30/25 0713 DD/ 07 TD/TT: Stretching Machine Tender Frame: Procedure Note Radiology, Radiologist, MD - 04/30/2025 [place] [address] Ultrasound Report Signed Patient: LE WEEMSMR#: [id number] : 1990Acct:[id number] Age/Sex: 34 / FADM Date: 04/29/25 Loc: US Attending Dr: Neha Borrego D.O. Ordering Physician: Neha Borrego D.O. Date of Service: 04/29/25 Procedure(s): US OB growth Accession Number(s): [id number] cc: Elmo,Neha D.O.; Physician,Non-Staff Dileep The [place] [id number] Patient Name: LE WEEMS MRN: [facility]:[id number] date: 1990 Sex: F Assigned Patient Location: Current Patient Location: Accession/Order Number: [id number] Exam Date: 04/30/2025 07:02 Report Date: 04/30/2025 [...] Olivares M.D. 04/30/2025 7:10 AM Dictation Location: [place] [address] Electronically authenticated by: [id number] Y Date: 7:10 Dictated By: Mariam Olivares M.D. Signed By:04/30/25 0713 DD/ TD/TT: Stretching Machine Tender Frame: us Neha Borrego DO [facility] Final Result documented in this encounter Visit Diagnoses Not on filedocumented in this encounter
--- OUTSIDE RECORDS SUMMARY | 2025-05-09 13:59 | XMS_ITS | Encounter Summary ---
Author Organization [facility] Address [address] [place] [address] Care Team Providers Care Applications Programmer Analyst Name Role Phone Unavailable Primary Care Provider Unavailabl e Encounter Details Date Type Department Care Team (Late st Contact Info) Description 01/21/2025 Abstract [facility] BCP OB [address] [place] [address] Mik Borrego DO [facility] [place], [facility]11 Social History [...] Routine [facility] BCP OB [address] [place] [address] Mik Borrego, DO [address] [place] [address], [facility]11 05/19/2025 9:40 AM EDT Routine [facility] BCP OB [address] [place] [address] Mik Borrego DO [facility] [place], [facility]11 documented as of this encounter Visit Diagnoses Not on filedocumented in this encounter
--- OUTSIDE RECORDS SUMMARY | 2025-05-09 13:59 | XMS_ITS | Encounter Summary ---
Author Organization [facility] Address [address] [place] [address] Care Team Providers Care Enforcement Safety Officer Name Role Phone Unavailable Primary Care Provider Unavailabl e Encounter Details Date Type Department Care Team (Late st Contact Info) Description 02/05/2025 Abstract [facility] BCP OB [address] [place] [address] Mik Borrego DO [facility] [place], [facility]11 Social History Tobacco Use Types Packs/Day [...] BCP OB [address] [place] [address] Mik Borrego, DO [address] [place] [address], [facility]11 05/19/2025 9:40 AM EDT Routine [facility] BCP OB [address] [place] [address] Mik Borrego, DO [facility] [place], [facility]11 documented as of this encounter Visit Diagnoses Not on filedocumented in this encounter
--- OUTSIDE RECORDS SUMMARY | 2025-05-09 13:59 | XMS_ITS | Encounter Summary ---
Author Organization [facility] Address [address] [place] [address] Care Team Providers Care Fire Boat Engineer Name Role Phone Unavailable Primary Care Provider Unavailabl e Encounter Details Date Type Department Care Team (Late st Contact Info) Description 10/08/2024 Orders Only [facility] BCP OB [address] [place] [phone] Larisa Chowdary MA [facility] [place] [address] Social History Tobacco Use Types Packs/Day Years [...] 9:10 AM EDT Routine NOMS BCP OB [facility] [place] [phone] Mik Borrego [facility] [address] 05/19/2025 9:40 AM EDT Routine NOMS BCP OB [facility] [place] [phone] Mik Borrego DO [facility] [place] [address] documented as of this encounter Procedures Procedure [...]
--- OUTSIDE RECORDS SUMMARY | 2025-05-09 13:59 | XMS_ITS | Encounter Summary ---
Author Organization [facility] Address [address] [place] [address] Care Team Providers Care Metal Fabricator Helper Name Role Phone Unavailable Primary Care Provider Unavailabl e Encounter Details Date Type Department Care Team (Late st Contact Info) Description 04/22/2025 Abstract [facility] BCP OB [address] [place] [address] Mki Borrego DO [facility] [place], [facility]11 Social History Tobacco Use Types [...] [address] Mik Borrego, DO [address] [place] [address], [facility]11 05/19/2025 9:40 AM EDT Routine [facility]OMS BCP OB [address] [place] [address] Mik Borrego DO [facility] [place], [facility]11 documented as of this encounter Visit Diagnoses Not on filedocumented in this encounter
--- OUTSIDE RECORDS SUMMARY | 2025-05-09 13:59 | XMS_ITS | Encounter Summary ---
Author Organization [facility] Address [address] [place] [address] Care Team Providers Care Pricing Intern Name Role Phone Unavailable Primary Care Provider Unavailabl e Encounter Details Date Type Department Care Team (Late st Contact Info) Description 04/30/2025 Telephone [facility] BCP OB [address] [facility] [place] [phone] Juanis Esparza MA Social History Tobacco Use [...] AM EDT Routine [facility]CP OB [address] [place] [address] Mik Borrego, DO [facility] [place] [address] 05/19/2025 9:40 AM EDT Routine [facility]OMS BCP OB [address] [place] [phone] Mik Borrego, DO [facility] [place] [address] documented as of this encounter Visit Diagnoses Not on filedocumented in this encounter
--- OUTSIDE RECORDS SUMMARY | 2025-05-09 13:59 | XMS_ITS | Encounter Summary ---
Author Organization [facility] Address [address] [place] [address] Care Team Providers Care Mathematical Statistician Name Role Phone Unavailable Primary Care Provider Unavailabl e Encounter Details Date Type Department Care Team (Late st Contact Info) Description 05/05/2025 Abstract [facility] BCP OB [address] [place] [address] Mik Borrego DO [facility] [place], [facility]11 Social History Tobacco [...] Borrego, DO [address] [place], [facility] 05/19/2025 9:40 AM EDT Routine [facility]OMS BCP OB [address] [place] [address] Mik Borrego DO [facility] [place], [facility]11 documented as of this encounter Visit Diagnoses Not on filedocumented in this encounter
--- OUTSIDE RECORDS SUMMARY | 2025-05-09 13:59 | XMS_ITS | Clinical Summary ---
Author Organization [facility] Address [id number] [address] [place] [address] Care Team Providers Care Mapping Technician Name Role Phone Unavailable Primary Care [...] Description 04/01/2025 Orders Only Maternal- Medicine at [facility] [address] [place] [address] Michelle Ashraf RN Chronic hypertension affecting (Primary Dx); Gestational diabetes mellitus (GDM), antepartum, gestational diabetes method of control unspecified 03/31/2025 10:39 AM EDT - 03/31/2025 11:59 PM EDT Hospital Encounter [facility] US Imaging [address] [place] [address] Chronic hypertension affecting ; Advanced maternal age in multigravida, second trimester; Gestational diabetes mellitus (GDM), antepartum, gestational diabetes method of control unspecified Discharge Disposition: Home 03/31/2025 Travel 03/04/2025 Orders Only Maternal- Medicine at [facility] [address] [place] [address] Oralia Elliott CMA Chronic hypertension affecting (Primary Dx); Advanced maternal age in multigravida, second trimester; Gestational diabetes mellitus (GDM), antepartum, gestational diabetes method of control unspecified 03/03/2025 10:32 AM EDT - 03/03/2025 11:59 PM EDT Hospital Encounter [facility] US Imaging [address] [place] [address] Chronic hypertension affecting ; Advanced maternal age [...] Procedure Name Priority Date/Time Associated Diagnosis Comments [facility] OB FOLLOW-UP, 1 FETUS Routine 03/31/2025 [...] period is included. Anatomical Region Laterality Modality OB-FUEL DISTRIBUTION SYSTEM OPERATOR Ultrasound 03/31/2025 11:2 5 AM EDT Narrative 03/31/2025 1:02 PM EDT NAME: SEDA LUJAN : 1990 SEX: F Accession Number: [id number] ORDERING PHYSICIAN: LORENZA RAGSDALE REFERRING PHYSICIAN: NEHA CAMPBELL Coding ----- --------- Procedures 92156: Follow-up Ultrasound, per fetus Indication ----- --------- Gestational diabetes, Chronic hypertension affecting , Obesity in , AMA- Supervision of elderly History ----- --------- OB History 1. Para 0 [id number] Maternal Assessment ----- --------- Physical Exam Height [...] EFW (oz) 12 oz EFW by: Hadlock ([id number]) Extended Tibia 50.8 mm 30w 2d 75% Sanhtosh Foil Operator 4.3 mm CM 4.6 mm 3% Nicolaides [...] LUJAN : 1990 SEX: F Accession Number: [id number] ORDERING PHYSICIAN: LORENZA RAGSDALE REFERRING PHYSICIAN: NEHA CAMPBELL Coding ----- --------- Procedures 50264: Follow-up Ultrasound, per fetus Indication ----- --------- Gestational diabetes, Chronic hypertension affecting , Obesityin , AMA- Supervision of elderly History ----- --------- OB History 1. Para 0 [id number] Maternal Assessment ----- --------- Physical Exam Height [...] EFW (oz) 12 oz EFW by: Hadlock ([id number]) Extended Tibia 50.8 mm 30w 2d 75% Santhosh Foil Operator 4.3 mm CM 4.6 mm 3% Nicolaides [...] byprimary OB provider unless otherwise specified by [facility]. Results forwarded to ordering provider so they can follow up with thepatient as necessary. us Lorenza Ragsdale MD [facility] ORDERABLES Final Re sult from Last 3 Months Insurance [facility]
--- OUTSIDE RECORDS SUMMARY | 2025-05-09 13:59 | XMS_ITS | Encounter Summary ---
Author Organization [facility] Address [address] [place] [address] Care Team Providers Care Transitional Studies Instructor Name Role Phone Unavailable Primary Care Provider Unavailabl e Encounter Details Date Type Department Care Team (Late st Contact Info) Description 05/06/2025 Clinisync Result Encounter NOMS External Department Unsolicited Neha Borrego, DO [address] [place], [facility]11 Social History Tobacco Use Types Packs/Day Years [...] [facility]OMS BCP OB [address] [place] [address] Neha Borrego, DO [address] [place], [facility]11 05/19/2025 9:40 AM EDT Routine NOMS BCP OB [address] [place] [address] Neha Borrego, DO [address] [place], [facility]11 documented as of this encounter Procedures Procedure Name Priority Date/Time Associated Diagnosis Comments US OB BPP W NON-STRESS 05/06/2025 9:29 AM EDT documented in this encounter Results * US OB BPP W NON-STRESS (05/06/2025 9:29 AM EDT) Anatomical Region Laterality Modality Other 05/06/2025 9:29 AM EDT Narrative 05/06/2025 9:32 [place] [address] Ultrasound Report Signed Patient: LE WEEMS MR#: [id number] : 1990 Acct:[id number] Age/Sex: 34 / F ADM Date: 05/06/25 Loc: [facility] 250-[address]: Neha Borrego D.O. Ordering Physician: Neha Borrego D.O. Date of Service: 05/06/25 Procedure(s): US OB BPP w non-stress Accession Number(s): [id number] cc: Neha Borrego D.O.; Physician,Non-Staff M.DNikos [address] [address] Patient Name: LE WEEMS MRN: [id number] date: 1990 Sex: F Assigned Patient Location: [facility] Current Patient Location: [facility] Accession/Order Number: [id number] Exam Date: 05/06/2025 09:07 Report Date: 05/06/2025 [...] Olivares M.D. 05/06/2025 9:29 AM Dictation Location: [place] [address] Electronically authenticated by: [id number] Y Date: 05/06/2025 09:29 Dictated By: Mariam Olivares M.D. Signed By: 05/06/25931 DD/ 8 TD/TT: Docent Coordinator: Procedure Note Radiology, Radiologist, - 05/06/2025 [place] [address] Ultrasound Report Signed Patient: LE WEEMS RMR#: [id number] : 1990Acct:[id number] Age/Sex: 34 / FADM Date: 05/06/25 Loc: [place] [address]: Neha Borrego D.O. Ordering Physician: Neha Borrego D.O. Date of Service: 05/06/25 Procedure(s): US OB BPP w non-stress Accession Number(s): [id number] cc: Neha Borrego D.O.; Physician,Non-Staff Dileep The [place] [id number] Patient Name: LE WEEMS MRN: [id number] date: 1990 Sex: F Assigned Patient Location: [facility] Current Patient Location: [facility] Accession/Order Number: [id number] Exam Date: 05/06/2025 09:07 Report Date: 05/06/2025 [...] Olivares M.D. 05/06/2025 9:29 AM Dictation Location: [place] [address] Electronically authenticated by: [id number] Y Date: 9:29 Dictated By: Mariam Olivares M.D. Signed By:05/06/25 0932 DD/ TD/TT: Docent Coordinator: Neha Borrego DO [facility] Final Result documented in this encounter Visit Diagnoses Not on filedocumented in this encounter
--- OUTSIDE RECORDS SUMMARY | 2025-05-09 13:59 | XMS_ITS | Encounter Summary ---
Author Organization [facility] Address [address] [place] [address] Care Team Providers Care Casino Accountant Name Role Phone Unavailable Primary Care Provider Unavailabl e Encounter Details Date Type Department Care Team (Late st Contact Info) Description 11/08/2024 Clinisync Result Encounter NOMS External Department Unsolicited Neha Borrego, DO [address] [place], [facility]11 Social History Tobacco Use Types [...] [facility]OMS BCP OB [address] [place] [address] Neha Borrego, DO [address] [place], [facility]11 05/19/2025 9:40 AM EDT Routine [facility] BCP OB [address] [place] [address] Neha Borrego, DO [address] [place], [facility]11 documented as of this encounter [...] AM EST Narrative 11/08/2024 11:35 AM EST [address] [address] Ultrasound Report Signed Patient: LE WEEMS MR#: [id number] : 1990 Acct:[id number] Age/Sex: 33 / F ADM Date: 11/08/24 Loc: US Attending Dr: Neha Borrego D.O. Ordering Physician: Neha Borergo D.O. Date of Service: 11/08/24 Procedure(s): US OB transvaginal Accession Number(s): [id number] cc: Neha Borrego D.O.; Physician,Non-Staff M.DNikos The [address] [address] Patient Name: LE WEEMS MRN: [facility]:[id number] date: 1990 Sex: F Assigned Patient Location: US Current Patient Location: US Accession/Order Number: [id number] Exam Date: 11/08/2024 10:18 Report Date: 11/08/2024 [...] Signed By: 11/08/24 1135 DD/ 1132 TD/TT: Jet Pilot: Procedure Note Radiology, Radiologist, MD - 11/08/2024 [place] [address] Ultrasound Report Signed Patient: LE WEEMSMR#: [id number] : 1990Acct:[id number] Age/Sex: 33 / FADM Date: 11/08/24 Loc: US Attending Dr: Neha Borrego D.O. Ordering Physician: Neha Borrego D.O. Date of Service: 11/08/24 Procedure(s): US OB transvaginal Accession Number(s): [id number] cc: Neha Borrego D.O.; Physician,Non-Staff Dileep The [place] [id number] Patient Name: LE WEEMS MRN: [facility]:[id number] date: 1990 Sex: F Assigned Patient Location: US Current Patient Location: US Accession/Order Number: [id number] Exam Date: 11/08/2024 10:18 Report Date: 11/08/2024 [...] M.D. Signed By:11/08/24 1135 DD/ 1132 TD/TT: Jet Pilot: Neha Borrego DO [facility] Final Result * HBSAG SCREEN (11/08/2024 10:14 AM EST) HBSAG SCREEN Negative Negative [facility] Comment: Performed at: [address] [id number] Gas Pumper: Toni Espinal PhD, Phone: [phone] 11/08/2024 10:1 4 AM EST 11/08/2024 10:16 AM EST Narrative [facility] - 11/09/2024 12:09 PM EST Neha Elmo DO LAB BLOOD ORDERABLES Final Resul t [facility] * RAPID PLASMA REAGIN, QUANT (11/08/2024 10:14 AM EST) RAPID PLASMA REAGIN, QUANT Non Reactive NonRea<1: 1 titer [facility] Comment: Please Note: This test does not meet current guidelines for screening and diagnosis of syphilis. This test is intended for following treatment response in patients being treated for syphilis infection. To screen for syphilis infection, a reflex cascade that includes both RPR and a treponema-specific assay should be utilized, such as Treponema pallidum (Syphilis) Screening [place] (095741) or Rapid Plasma Reagin (RPR) Test With Reflex to Quantitative RPR and Confirmatory Treponema pallidum Antibodies (021884). Performed at: [address] [id number] Gas Pumper: Toni Espinal PhD, Phone: [phone] 11/08/2024 10:1 4 AM EST 11/08/2024 10:16 AM EST Narrative [facility] - 11/09/2024 12:09 PM EST [facility] LAB BLOOD ORDERABLES Final Resul t Performing Organization Address [facility] de Phone Number [facility] * HCV ANTIBODY RFX TO QUANT PCR (11/08/2024 10:14 AM EST) Pathologist [facility] HCV AB Non Reactive Non Reactive [facility] INTERPRETATION: Comment . [facility] Comment: Not infected with HCV unless early or acute infection is suspected (which may be delayed in an immunocompromised individual), or other evidence exists to indicate HCV infection. 11/08/2024 10:1 4 AM EST 11/08/2024 10:16 AM EST Narrative [facility] - 11/09/2024 5:07 AM EST [facility] LAB BLOOD ORDERABLES Final Resul t Performing Organization Address [facility] Co de Phone Number [facility] * HIV AB/P24 AG WITH REFLEX (11/08/2024 10:14 AM EST) Pathologist [facility] HIV AB/P24 AG SCREEN Non Reactive Non Reactive [facility] Comment: HIV-1/HIV-2 antibodies and HIV-1 p24 antigen were NOT detected. There is no laboratory evidence of HIV infection. HIV Negative Performed at: [facility] Lab[address] [id number] Gas Pumper: Toni Espinal PhD, Phone: [phone] 11/08/2024 10:1 4 AM EST 11/08/2024 10:16 [...] DO [facility] Final Result Performing Organization Address City/[facility]/ZIP Co de Phone Number [facility] TB * ALL TYPE AND SCREEN (11/08/2024 10:14 AM EST) BLOOD TYPE B Positive [facility] ANTIBODY SCREEN NEGATIVE [facility] 11/08/2024 10:1 4 AM EST 11/08/2024 10:16 AM EST Narrative [facility] - 11/08/2024 12:24 PM EST [facility] [place] Neha Elmo DO [facility] Final Result [facility] documented in this encounter Visit Diagnoses Not on filedocumented in this encounter
[2025-05-09 14:06] VITALS: BP 142/89; PULSE 90
[2025-05-09 14:23] VITALS: BP 141/89; PULSE 86
== END 2025-05-09 14:41 | disposition home or self-care (01) ==
LOC: FBCO 13:56 → FBC 13:59
PROVIDERS: Visit Provider Obstetrics & Gynecology
DX: O24.419 Gestational diabetes mellitus in pregnancy, unspecified control (principal); Z3A.35 35 weeks gestation of pregnancy
CPT/HCPCS: 59025

== ENCOUNTER 2025-05-13 07:57 | Outpatient (OUT) | payer BC, SELFPAY ==
--- OUTSIDE RECORDS SUMMARY | 2013-09-18 06:00 | XMS_ITS | Continuity of Care Document ---
Author Organization [facility] Address [address] [place] [address], [address] [place] [address] Phone Care Team Providers Care Career Manager Name Role Phone Eva Arias MD Unavailable [...] Active Procedures Procedure Date Office Visit - LUMBER MARKER Extended Advance Directives Directive Yes / No Effective Date File Name No Information Encounters Encounter Description Practice Location Reason(s) For Visit Diagnoses Date Provider Providers Copied on Encounter Office Visit - LUMBER MARKER Extended [facility], [address] [place] [address], [address], [place], [place], [id number], tel:[phone] [facility] client account manager consult (chief complaint) Family planningAcne 3 Hugo Velasquez. [address] [place] [address], [address], [place], [id number]. tel:[phone] Referring Provider: Eva Arias MD, [address] [place] [address] [address], [place], [address]. tel:[phone] Family History Family Member Type Diagnosis Age At Onset No Information Payers Payer name Insurance type Covered libertarian ID Authoriza tidon(s) Prime / Durga CI [id number] Social History Type Description Quantity Date Captured Comments Alcohol Use Details Unknown Caffeine Use Details Unknown Tobacco Use Status No Information Smoking Status No Information Sex Female Sexual Orientation Choose not to disclose Vital Signs Date / Time: Height Weight BMI Pulse Rate Blood Pressure Temperature Respiratory Rate Body Surface Area Head Circumference Head Circ. Percentile Wt./Junior. Percentile BMI percentile Pulse Ox Inhaled Ox 10:56 AM 67.00 in 73.028 kg (161.00 lbs) 25.2 2 kg/m eter (2) 60 /min 130/88 mm[Hg] 12 /min 1.86 meter(2) Chief Complaint And Reason For Visit From encounter dated '09/18/2013 10:00'. client account manager consult (chief complaint). Description: The symptoms are [...] Date Complaint History Of Prese nt Illness client account manager consult The symptoms are reported as being [...] Mental Status Date Cognitive Assessment Orientation - [place] ed to time, place, person, situation. Patient Care Teams Name Effective Dates (start - stop) Status Members No Information
--- OUTSIDE RECORDS SUMMARY | 2024-05-20 04:15 | XMS_ITS ---
Author Organization [facility] Address [address] [facility] [place] [place] [address] Care Team Providers Care Field Hand Name Role Phone Olimpia Cruz Primary Care Provider Steven Shane Unavailable [phone] REASON FOR VISIT MED RECHECK-AC Encounters Encounter Location Date Provider Diagnosis [facility] [address] [place] [address] 2023 Steven Shane Plan Of Treatment No Information Progress Notes * SEDALEDOB:1990 (34 yo F)Acc No.[id number]:05/20/2024 Behavioral Health Patient: LE ALCALA Provider: LARRY Sanders :1990 A ge:33 Y S ex:Female Date:05/20/2024 Address:[address] [place], [place] [phone] Pcp:Olimpia Cruz Subjective: * Chief Complaints: * 1 . MED RECHECK-AC. * Medical History: Objective: * Vitals: Assessment: Plan: * Treatment: * Images: * Electronic signature of LARRY Linder on 05/13/2025 at 07:59 AM EDT Sign off status: Pending * Provider: LARRY Sanders Date: 05/20/2024 Generated for Printi ng/Faxing/eTransmitting on: 05/13/2025 07:59 AM EDT
--- OUTSIDE RECORDS SUMMARY | 2024-06-04 10:45 | XMS_ITS ---
Author Organization [facility] es Address [address] [facility] [place] [place] [address] Care Team Providers Care Volunteer Firefighter Name Role Phone Olimpia Cruz Primary Care Provider Diane Perdomo [phone] REASON FOR VISIT DISCUSS ASTHMA FLARE-AC Encounters Encounter Location Date Provider Diagnosis [address] [place] [address] 06/04/2024 Diane Perdomo Plan Of Treatment No Information Progress Notes * LE STACKDOB:1990 (34 yo F)Acc No.[id number]:06/04/2024 Progress Notes Patient: LE ALCALA Appointment Provider: Jose Perdomo NP :1990 A ge:33 Y S ex:Female Date:06/04/2024 Address:[address] [place], [place] [phone] Pcp:Olimpia Cruz Subjective: * Chief Complaints: * 1 . DISCUSS ASTHMA FLARE-AC. * Medical History: Objective: * Vitals: Assessment: Plan: * Treatment: * Images: * Electronic signature of Ryan Perdomo CNP on 05/13/2025 at 07:59 AM EDT Sign off status: Pending * Appointment Provider: Jose Pedromo NP Date: 06/04/2024 Generated for Printi ng/Faxing/eTransmitting on: 05/13/2025 07:59 AM EDT
--- OUTSIDE RECORDS SUMMARY | 2025-04-30 14:00 | XMS_ITS | Encounter Summary ---
Author Organization [facility] Address [address] [place] [address] Care Team Providers Care Sql Etl Developer Name Role Phone Unavailable Primary Care Provider Unavailabl e Reason for Visit * Reason Comments Routine Visit Blood Pressure Check Encounter Details Date Type Department Care Team (Late st Contact Info) Description 04/30/2025 2:00 PM EDT Routine [facility] OB [address] [facility] [place] [phone] Lindsey Guajardo PA [address] [place] [address] 33 weeks gestation of (HHS-HCC); Third trimester [...] to check FSBS. Blood Glucose Monitoring Suppl (D-[employer] Glucometer) w/Device kit 1 kit, Does not [...] Date Noted Vaginal bleeding affecting early ([facility]) 11/06/2024 headache, antepartum ([facility]) 12/25/2024 Elevated blood pressure affecting , antepartum ([facility]) 01/16/2025 Insulin controlled gestational diabetes mellitus (GDM) in third trimester ([facility]) 04/21/2025 Multigravida of advanced maternal age in third trimester ([facility]) 04/21/2025 Hypertension 04/21/2025 Third trimester ([facility]) 04/21/2025 Resolved Ambulatory Problems Diagnosis Date Noted No Resolved Ambulatory Problems Past Medical History: Diagnosis Date ADHD (attention deficit hyperactivity disorder) Anxiety Gestational diabetes ([facility]) Insulin resistance PCOS (polycystic ovarian syndrome) HISTORY PAST MEDICAL HISTORY SOCIAL HISTORY Past Medical History: Diagnosis Date ADHD (attention deficit hyperactivity disorder) Anxiety Gestational diabetes ([facility]) Hypertension Insulin resistance PCOS (polycystic [...] PLAN ICD-10-CM 1. 33 weeks gestation of ([facility]) Z3A.33 POCT urinalysis dipstick manually resulted 2. Third trimester ([facility]) Z34.93 POCT urinalysis dipstick manually resulted 3. High blood pressure affecting in third trimester, antepartum ([facility]) O16.3 Patient presents today for headaches, elevated [...] Care Team (Late st Contact Info) Description 05/19/2025 9:40 AM EDT Routine [facility] OB [address] [facility] [place] [phone] ElmoMik parikh, DO [address] [facility] [place] [address] Scheduled Orders Name Type Priority Associated Diagnoses Orde r Schedule Creatinine Lab Routine induced hypertension, antepartum ([facility]) Expected: 04/30/2025 (Approximate), Expires: 04/30/2026 Protein, urine, 24 hour Lab Routine induced hypertension, antepartum ([facility]HCC) Expected: 04/30/2025 (Approximate), Expires: 04/30/2026 Pt and ptt Lab Routine induced hypertension, antepartum ([facility]) Expected: 04/30/2025, Expires: 04/30/2026 CBC and differential Lab Routine induced hypertension, antepartum ([facility]) Expected: 04/30/2025 (Approximate), Expires: 04/30/2026 Uric acid Lab Routine induced hypertension, antepartum ([facility]) Expected: 04/30/2025 (Approximate), Expires: 04/30/2026 Lactate dehydrogenase Lab Routine induced hypertension, antepartum ([facility]) Expected: 04/30/2025, Expires: 04/30/2026 ALT Lab Routine induced hypertension, antepartum ([facility]) Expected: 04/30/2025 (Approximate), Expires: 04/30/2026 AST Lab Routine induced hypertension, antepartum ([facility]) Expected: 04/30/2025 (Approximate), Expires: 04/30/2026 BUN Lab Routine induced hypertension, antepartum ([facility]) Expected: 04/30/2025, Expires: 04/30/2026 documented as of this encounter Procedures Procedure Name Priority Date/Time Associated Diagnosis Comments POCT URINALYSIS DIPSTICK Routine 04/30/2025 2:19 PM EDT 33 weeks gestation of ([facility]) Third trimester ([facility]) documented in this encounter Results * (ABNORMAL) [...] Visit Diagnoses Diagnosis 33 weeks gestation of ([facility]) Third trimester ([facility]) state, incidental High blood pressure affecting in third trimester, antepartum (HHS-HCC) induced hypertension, antepartum (HHS-HCC) Transient hypertension of , antepartum documented in this encounter
--- OUTSIDE RECORDS SUMMARY | 2025-05-05 09:10 | XMS_ITS | Encounter Summary ---
Author Organization [facility] Address [address] [place] [address] Care Team Providers Care Handle Turner Name Role Phone Unavailable Primary Care Provider Unavailabl e Reason for Visit * Reason Comments Routine Visit Encounter Details Date Type Department Care Team ([facility] [address] [facility] Contact Info) Description 05/05/2025 9:10 AM EDT Routine [facility] OB [address] [facility] [place] [phone] Mik Borrego, DO [address] [facility] [place] [address] 34 weeks gestation of ([facility]); Third trimester ([facility]); High blood pressure affecting in third trimester, antepartum ([facility]); induced hypertension, antepartum ([facility]); Insulin controlled gestational diabetes mellitus (GDM) in third trimester ([facility]); Multigravida of advanced maternal age in third trimester ([facility]); Gestational diabetes mellitus (GDM), antepartum, gestational diabetes method of control unspecified ([facility]) Social History Tobacco Use Types Packs/Day Years [...] this encounter Progress Notes * Kimi Buckner, RECREATIONAL LEADER - 05/05/2025 9:10 AM EDT Reason for [...] Diagnosis Date Noted Vaginal bleeding affecting early ([facility]) 11/06/2024 headache, antepartum ([facility]) 12/25/2024 Elevated blood pressure affecting , antepartum ([facility]) 01/16/2025 Insulin controlled gestational diabetes mellitus (GDM) in third trimester ([facility]) 04/21/2025 Multigravida of advanced maternal age in third trimester ([facility]) 04/21/2025 Hypertension 04/21/2025 Third trimester ([facility]) 04/21/2025 Resolved Ambulatory Problems Diagnosis Date Noted No Resolved Ambulatory Problems Past Medical History: Diagnosis Date ADHD (attention deficit hyperactivity disorder) Anxiety Gestational diabetes ([facility]) Insulin resistance PCOS (polycystic ovarian syndrome) HISTORY PAST MEDICAL HISTORY SOCIAL HISTORY Past Medical History: Diagnosis Date ADHD (attention deficit hyperactivity disorder) Anxiety Gestational diabetes ([facility]) Hypertension Insulin resistance PCOS (polycystic ovarian syndrome) [...] nursing note reviewed. Exam conducted with a bar tacker present. Vitals: Estimated body mass index is 33.85 kg/m?? as calculated from the following: Height as of 05/06/24: 5' 7 . Weight as of this encounter: 216 lb 1.9 oz. BP: 140/86 Patient's last menstrual period was 08/23/2024. ASSESSMENT & PLAN ICD-10-CM 1. 34 weeks gestation of ([facility]) Z3A.34 POCT urinalysis dipstick manually resulted 2. Third trimester ([facility]) Z34.93 POCT urinalysis dipstick manually resulted 3. High blood pressure affecting in third trimester, antepartum ([facility]) O16.3 4. induced hypertension, antepartum ([facility]) O13.9 5. Insulin controlled gestational diabetes mellitus (GDM) in third trimester ([facility]) O24.414 6. Multigravida of advanced maternal age in third trimester ([facility]) O09.523 7. Gestational diabetes mellitus (GDM), antepartum, gestational diabetes method of control unspecified ([facility]) O24.419 Patient presents today for a routine [...] AM EDT Routine [facility] OB [address] [place] [address] Mik Borrego DO [address] [place] [address] documented as of this encounter Procedures Procedure Name Priority Date/Time Associated Diagnosis Comments POCT URINALYSIS DIPSTICK Routine 05/05/2025 10:56 AM EDT 34 weeks gestation of ([facility]) Third trimester ([facility]) documented in this encounter Results * (ABNORMAL) [...] Visit Diagnoses Diagnosis 34 weeks gestation of ([facility]) Third trimester ([facility]) state, incidental High blood pressure affecting in third trimester, antepartum ([facility]) induced hypertension, antepartum ([facility]) Transient hypertension of , antepartum Gestational diabetes mellitus (GDM), antepartum, gestational diabetes method of control unspecified ([facility]) Multigravida of advanced maternal age in third trimester ([facility]) documented in this encounter
--- OUTSIDE RECORDS SUMMARY | 2025-05-12 09:10 | XMS_ITS | Encounter Summary ---
Author Organization [facility] Address [address] [place] [address] Care Team Providers Care Professor Of Religious Studies Name Role Phone Unavailable Primary Care Provider Unavailabl e Reason for Visit * Reason Comments Routine Visit Encounter Details Date Type Department Care Team ([facility] Contact Info) Description 05/12/2025 9:10 AM EDT Routine [facility] OB [address] [phone] Mik Borrego, DO [address] [place] [address] 35 weeks gestation of ([facility]-H[facility]); Third trimester ([facility]HS-HCC); High blood pressure affecting in third trimester, antepartum ([facility]-HCC); Insulin controlled gestational diabetes mellitus (GDM) in third trimester ([facility]HS-HCC); Multigravida of advanced maternal age in third trimester ([facility]HS-HCC); induced hypertension, antepartum ([facility]-HCC) Social History [...] Sign Reading Time Taken Comments Blood Pressure 138/80 05/12/2025 9:19 AM EDT Pulse - - Temperature - - Respiratory Rate - - Oxygen Saturation - - Inhaled Oxygen Concentration - - Weight 100 kg (220 lb 6.4 oz) 05/12/2025 9:19 AM EDT Height - - Body Mass Index 34.52 05/06/2024 3:23 PM EDT documented in this encounter Progress Notes * Pricilla Cortes NP - 05/12/2025 9:10 AM EDT Reason for Appointment: Patient [...] to check FSBS. Blood Glucose Monitoring Suppl ([employer] Glucometer) w/Device kit 1 kit, Does not [...] directed. insulin NPH (Isophane) (HUMULIN N,NOVOLIN N) 15 Units, 2 times daily before meals insulin regular (HUMULIN R,NOVOLIN R) 10 Units, 2 times daily insulin syringe 29G X 1/2 0.5 mL [...] Diagnosis Date Noted Vaginal bleeding affecting early ([facility]) 11/06/2024 headache, antepartum ([facility]) 12/25/2024 Elevated blood pressure affecting , antepartum ([facility]) 01/16/2025 Insulin controlled gestational diabetes mellitus (GDM) in third trimester ([facility]) 04/21/2025 Multigravida of advanced maternal age in third trimester ([facility]) 04/21/2025 Hypertension 04/21/2025 Third trimester ([facility]) 04/21/2025 Resolved Ambulatory Problems Diagnosis Date Noted No Resolved Ambulatory Problems Past Medical History: Diagnosis Date ADHD (attention deficit hyperactivity disorder) Anxiety Gestational diabetes ([facility]) Insulin resistance PCOS (polycystic ovarian syndrome) HISTORY PAST MEDICAL HISTORY SOCIAL HISTORY Past Medical History: Diagnosis Date ADHD (attention deficit hyperactivity disorder) Anxiety Gestational diabetes ([facility]) Hypertension Insulin resistance PCOS (polycystic ovarian [...] nursing note reviewed. Exam conducted with a insurance professional present. Vitals: Estimated body mass index is 34.52 kg/m?? as calculated from the following: Height as of 7/15/24: 5' 7 . Weight as of this encounter: 220 lb 6.4 oz. BP: 138/80 Patient's last menstrual period was 08/23/2024. ASSESSMENT & PLAN ICD-10-CM 1. 35 weeks gestation of ([facility]) Z3A.35 POCT urinalysis dipstick manually resulted 2. Third trimester ([facility]) Z34.93 POCT urinalysis dipstick manually resulted 3. High blood pressure affecting in third trimester, antepartum ([facility]) O16.3 4. Insulin controlled gestational diabetes mellitus (GDM) in third trimester ([facility]) O24.414 5. Multigravida of advanced maternal age in third trimester ([facility]) O09.523 6. induced hypertension, antepartum ([facility]) O13.9 Return OB: Patient presents today for a routine obstetrics appointment. Patient is currently 35w4d . Patient states she is doing well [...] 1 week for routine OB appointment. Patient continues glucose log.NPH and Regular Insulin as directed. Glucose in 90's in the am and 120-130's in the evening. Continues NST/BPP. Denies Headache, vision changes and no significant swelling. She has continued on bedrest and is doing well. Documented by Pricilla Cortes NP on behalf of: Pricilla Cortes NP documented in this encounter Plan of Treatment Upcoming Encounters Date Type Department Care Team (Late st Contact Info) Description 05/19/2025 9:40 AM EDT Routine [facility] [address] [place] [phone] Mik Borrego, DO [address] [place], [place] [phone] documented as of this encounter Procedures Procedure Name Priority Date/Time Associated Diagnosis Comments POCT URINALYSIS DIPSTICK Routine 05/12/2025 9:24 AM EDT 35 weeks gestation of ([facility]) Third trimester ([facility]) documented in this encounter Results * (ABNORMAL) POCT urinalysis dipstick manually resulted (05/12/2025 9:24 AM EDT) Color, UA Yellow Clarity, UA Cloudy Glucose, UA Negative Negative - 2000(110) ++++ mg/dL Bilirubin, UA Negative Negative - 4(70) +++ mg/dL Ketones, UA Negative Negative - 160(16) ++++ mg/dL Spec Grav, UA 1.020 1 - 1.03 Blood, UA Negative Negative - 50 Albin/mcL pH, UA 7.0 5 - 9 Protein, UA Trace Negative - 2000(20) ++++ mg/dL Comment:30 Urobilinogen, UA 1.0 0.2 - 12 mg/dL Leukocytes, UA Negative Negative - 500+++ Jack/mcL Nitrite, UA Negative Negative - Positive Urine 05/12/2025 9:24 AM EDT Mik Borrego DO POINT OF CARE TEST ENTER/EDIT OR DERABLES Final Result documented in this encounter Visit Diagnoses Diagnosis 35 weeks gestation of ([facility]) Third trimester ([facility]) state, incidental High blood pressure affecting in third trimester, antepartum ([facility]) Insulin controlled gestational diabetes mellitus (GDM) in third trimester ([facility]) Multigravida of advanced maternal age in third trimester ([facility]) induced hypertension, antepartum ([facility]) Transient hypertension of , antepartum documented in this encounter
--- NOTE | 2025-05-13 | US_ITS ---
[address] [address] Patient Name: LE STACK MRN: [id number] date: 1990 Sex: F Assigned Patient Location: [facility] Current Patient Location: Accession/Order Number: [id number] Exam Date: 05/13/2025 09:30 Report Date: 05/13/2025 09:31 At the request of: NEHA CAMPBELL DO Procedure: US OB BPP w non-stress Biophysical profile. Reason for exam: Gestational diabetes COMPARISON: 05/07/2025 TECHNIQUE: Transabdominal imaging of the gravid uterus was obtained. FINDINGS: The field foreman reports a BPP of 8 out of 8. SARA is normal at 12.7 cm. heart rate 147 bpm. US/US OB BPP w non-stress IMPRESSION: BPP 8 out of 8. Impression dictated by: Timbo Goldstein Jr., D.O. 05/13/2025 9:31 AM Dictation Location: [place] [address] Electronically authenticated by: [id number] Y Date: 05/13/2025 09:31
--- OUTSIDE RECORDS SUMMARY | 2025-05-13 07:59 | XMS_ITS | Encounter Summary ---
Author Organization [facility] Address [address] [place] [address] Care Team Providers Care Sales Executive Name Role Phone Unavailable Primary Care Provider Unavailabl e Encounter Details Date Type Department Care Team (Late st Contact Info) Description 02/05/2025 Abstract [facility] OB [address] [place] [address] Mik Borrego, DO [address] [place], [facility] Social History Tobacco Use Types Packs/Day Years [...] Description 05/19/2025 9:40 AM EDT Routine [facility] OB [address] [place] [phone] Mik Borrego, DO [address] [place], [facility] documented as of this encounter Visit Diagnoses Not on filedocumented in this encounter
--- OUTSIDE RECORDS SUMMARY | 2025-05-13 07:59 | XMS_ITS | Encounter Summary ---
Author Organization [facility] Address [address] [place] [address] Care Team Providers Care Operational Review Sergeant Name Role Phone Unavailable Primary Care Provider Unavailabl e Encounter Details Date Type Department Care Team (Late st Contact Info) Description 01/17/2025 Abstract [facility] OB [address] [place] [address] Mik Borrego, DO [address] [place], [facility] [...] Description 05/19/2025 9:40 AM EDT Routine [facility] OB [address] [place] [address] Mik Borrego, DO [address] [place], [facility] documented as of this encounter Visit Diagnoses Not on filedocumented in this encounter
--- OUTSIDE RECORDS SUMMARY | 2025-05-13 07:59 | XMS_ITS | Encounter Summary ---
Author Organization [facility] Address [address] [place] [address] Care Team Providers Care County Program Technician Name Role Phone Unavailable Primary Care Provider Unavailabl e Encounter Details Date Type Department Care Team (Late st Contact Info) Description 04/30/2025 Clinisync Result Encounter [facility] External Department Unsolicited Neha Borrego, DO [address] [place] [address] Social History Tobacco Use Types Packs/Day Years [...] AM EDT Routine [facility] [address] [facility] [place] [place] [phone] Neha Borrego, DO [address] [place] [address] documented as of this encounter Procedures Procedure Name Priority Date/Time Associated Diagnosis Comments TBH URINE T PROTEIN CREAT RATIO Routine 04/30/2025 4:30 PM EDT [facility] CMP (CMP) (FOR REMOTE [facility] USE) Routine 04/30/2025 3:08 PM EDT ALL [...] CLINISY[facility] - 04/30/2025 5:00 PM EDT Neha Elmo DO CLINIS[facility] Final Result Performing Organization Address City/[facility]/ZIP Co de Phone Number [facility] * ALL URIC ACID (04/30/2025 3:08 PM EDT) URIC ACID 5.7 2.6 - 6.0 mg/dL TB 04/30/2025 3:08 PM EDT 04/30/2025 3:12 PM EDT Narrative [facility] - 04/30/2025 3:45 PM EDT Neha Elmo DO [facility] Final Result [facility] * ALL LDH (04/30/2025 3:08 PM EDT) LACTATE DEHYDROGENASE 147 81 - 234 U/L TB 04/30/2025 3:08 PM EDT 04/30/2025 3:12 PM EDT Narrative [facility] - 04/30/2025 3:44 PM EDT us Neha Elmo DO [facility] Final Result [facility] * (ABNORMAL) [facility] CMP (CMP) (FOR REMOTE [facility] USE) (04/30/2025 3:08 PM EDT) SODIUM 143 136 - 145 mmol/L TBH POTASSIUM 3.4(L) 3.5 - 5.1 mmol/L TBH CHLORIDE 106 98 - 107 mmol/L TBH CARBON DIOXIDE 22.6 21.0 - 32.0 mmol/L TBH ANION GAP 17.8 TBH GLUCOSE 108(H) 74 - 106 mg/dL TBH BLOOD UREA NITROGEN 9.0 7.0 - 18.0 mg/dL TBH CREATININE 0.60 0.55 - 1.02 mg/dL TBH TBH EGFR-AF LITHUANIAN >60 >=60 mL/min/1. 73m 2 TBH TBH EGFR-NON AF LITHUANIAN >60 >=60 mL/min/1. 73m 2 TBH BUN [...] CLINISYNC Final Result [facility] TB[facility] * (ABNORMAL) ALL CBC WITH AUTO DIFF (04/30/2025 3:08 PM EDT) [facility] TBH WBC 11.6(H) 4.0 - 11.0 10 3/uL [...] Neha Borrego DO CLINIS[facility]NC Final Result [facility] * US OB BPP W NON-STRESS (04/30/2025 7:10 AM EDT) Anatomical Region Laterality Modality Other 04/30/2025 7:10 AM EDT Narrative 04/30/2025 7:13 [place] [address] Ultrasound Report Signed Patient: JULISSA WEEMS MR#: [id number] : 1990 Acct:[id number] Age/Sex: 34 / F ADM Date: 04/29/25 Loc: US Attending Dr: Neha Borrego D.O. Ordering Physician: Neha Borrego D.O. Date of Service: 04/29/25 Procedure(s): US OB BPP w non-stress Accession Number(s): [id number] cc: Neha Borrego D.O.; Physician,Non-Staff M.David The [place] [address] Patient Name: JULISSA WEEMS MRN: [facility]:[id number] date: 1990 Sex: F Assigned Patient Location: [facility] Current Patient Location: Accession/Order Number: [id number] Exam Date: 04/30/2025 07:02 Report Date: 04/30/2025 [...] Olivares M.D. 04/30/2025 7:10 AM Dictation Location: [place] [address] Electronically authenticated by: [id number] Y Date: 04/30/2025 07:10 Dictated By: Mariam Olivares M.D. Signed By: 04/30/25 0713 DD/ 0710 TD/TT: Orchid Superintendent: Procedure Note Radiology, Radiologist, MD - 04/30/2025 [place] [address] Ultrasound Report Signed Patient: JULISSA WEEMSMR#: [id number] : 1990Acct:[id number] Age/Sex: 34 / FADM Date: 04/29/25 Loc: US Attending Dr: Neha Borrego D.O. Ordering Physician: Neha Borrego D.O. Date of Service: 04/29/25 Procedure(s): US OB BPP w non-stress Accession Number(s): [id number] cc: Neha Borrego D.O.; Physician,Non-Staff Dileep The [place] [id number] Patient Name: JULISSA WEEMS MRN: [id number] date: 1990 Sex: F Assigned Patient Location: [facility] Current Patient Location: Accession/Order Number: [id number] Exam Date: 04/30/2025 07:02 Report Date: 04/30/2025 [...] Olivares M.D. 04/30/2025 7:10 AM Dictation Location: [place] [address] Electronically authenticated by: [id number] Y Date: 7:10 Dictated By: Mariam Olivares M.D. Signed By:04/30/25 0713 DD/ 0710 TD/TT: Orchid Superintendent: us Neha Jaino DO [facility] IMAGING Final Result documented in this encounter Visit Diagnoses Not on filedocumented in this encounter
--- OUTSIDE RECORDS SUMMARY | 2025-05-13 07:59 | XMS_ITS | Clinical Summary ---
Author Organization [facility] Healthcare Address [address] [place] [address] Care Team Providers Care Curbing Stonecutter Name Role Phone Unavailable Primary Care Provider [...] 05/06/2024 Medications albuterol HFA 90 mcg/act inhaler 04/04/20 24 Active cetirizine (ZyrTEC) 10 MG tablet Take by mouth Active Alcohol Swabs (Alcohol Prep Pad) 70 % padsIndications :Gestational diabetes mellitus (GDM), antepartum, gestational diabetes method of control unspecified (HHS-HCC),Wat[place] aria glucose tolerance test Apply 1 Pad topically Daily Use four times daily to check FSBS. 150 each 3 01/28/20 25 Active Blood Glucose Monitoring Suppl (D-Care Glucometer) w/Device kitIndications: Gestational diabetes mellitus (GDM), antepartum, gestational diabetes method of control unspecified (HHS-HCC),Wat[place] aria glucose tolerance test 1 kit Daily Use four times daily to check FSBS. In the morning prior to breakfast & 1 hour after each meal for a total of 4times daily. 1 kit 01/28/20 25 026 Active Alcohol Swabs (Alcohol Prep Pad) 70 % padsIndications :Gestational diabetes mellitus (GDM), antepartum, gestational diabetes method of control unspecified (HHS-HCC),Wat[place] aria glucose tolerance test Apply 1 Pad topically Daily Use four times daily to check FSBS. 150 each 3 01/30/20 25 Active glucose blood (RELION GLUCOSE TEST STRIPS) test stripIndication s:Gestational diabetes mellitus (GDM), antepartum, gestational diabetes method of control unspecified (HHS-HCC),Wat[place] aria glucose tolerance test Use four times daily to check FSBS as directed. 150 each 12 01/30/20 25 026 Active NIFEdipine XL (Procardia XL) 60 MG 24 hr tabletIndicatio ns:Blood pressure check Take 1 tablet (60 mg) by mouth Daily Do not crush, chew, or split. 30 tablet 3 02/04/20 25 025 Active MAGnesium-Oxide 400 (240 Mg) MG tabletIndicatio ns: headache, antepartum ([facility]) Take 1 tablet by mouth once daily 30 tablet 03/21/20 25 Active insulin syringe 29G X 1/2 0.5 mL miscIndications :Gestational diabetes mellitus (GDM), antepartum, gestational diabetes method of control unspecified ([facility]) Use as instructed 100 each 4 04/08/20 25 Active insulin NPH, Isophane, (HumuLIN N,NovoLIN N) 100 UNIT/ML injection Inject 15 Units under the skin in the morning and 15 Units in the evening. Inject before meals. Active insulin regular (HumuLIN R,NovoLIN R) 100 UNIT/ML patient supplied pump Inject 10 Units under the skin in the morning and 10 Units before bedtime. Active Blood Glucose Monitoring Suppl (ReliOn True Met Air Gluc Meter) w/Device kitIndications: Gestational diabetes mellitus (GDM), antepartum, gestational diabetes method of control unspecified ([facility]),Wat[place] aria glucose tolerance test 1 kit in the morning and 1 kit at noon and 1 kit in the evening and 1 kit before bedtime. 1 kit 01/30/20 25 025 insulin NPH, Isophane, (HumuLIN N,NovoLIN N) 100 UNIT/ML injectionIndica tions:Gestation al Diabetes Inject 5 Units under the skin in the morning and 5 Units in the evening. Inject before meals. 3 mL 04/08/20 25 025 Discontinued insulin regular (HumuLIN R,NovoLIN R) 100 UNIT/ML injectionIndica tions:Gestation al diabetes mellitus (GDM), antepartum, gestational diabetes method of control unspecified ([facility]) 5 units sub q in the am and 5 units sub q in the evening 3 mL 3 04/08/20 25 025 Discontinued Active Problems Problem Noted Date Diagnosed Date Insulin controlled gestation al diabetes mellitus (GDM) in third trimester ([facility]) 04/21/2025 Multigravida of advanced mat ernal age in third trimester ([facility]) 04/21/2025 Hypertension 04/21/2025 Third trimester ([facility]) 04/21/2025 Elevated blood pressure affe cting , antepartum ([facility]) 01/16/2025 headache, antepartum ([facility]) 025 Vaginal bleeding affecting early ([facility]) 11/06/2024 Estimated Date of Delivery Comme nts Yes 06/12/2025 Based on Ultraso und Encounters Date Type Department Care Team Description 05/12/2025 9:10 AM EDT Routine [facility] [address] [place] [address] Neha Borrego DO 35 weeks gestation of ([facility]); Third trimester ([facility]); High blood pressure affecting in third trimester, antepartum ([facility]); Insulin controlled gestational diabetes mellitus (GDM) in third trimester ([facility]); Multigravida of advanced maternal age in third trimester ([facility]); induced hypertension, antepartum ([facility]) 05/12/2025 Abstract [facility] [place] [address] [place] [phone] Neha Borrego DO 05/12/2025 Bamboo flowsheet [facility] [address] [place] [address] Neha Borrego, 05/07/2025 Clinisync Result Encounter [facility] External Department Unsolicited Neha Borrego, DO 05/06/2025 Clinisync Result Encounter [facility] External Department Unsolicited Neha Borrego, DO 05/05/2025 9:10 AM EDT Routine [facility] [place] [address] [place] [address] Neha Borrego, DO 34 weeks gestation of ([facility]); Third trimester ([facility]); High blood pressure affecting in third trimester, antepartum ([facility]); induced hypertension, antepartum ([facility]); Insulin controlled gestational diabetes mellitus (GDM) in third trimester ([facility]); Multigravida of advanced maternal age in third trimester ([facility]); Gestational diabetes mellitus (GDM), antepartum, gestational diabetes method of control unspecified ([facility]) 05/05/2025 Abstract [facility] [place] [address] [place] [address] Neha Borrego, DO 05/05/2025 Bamboo flowsheet [facility] [place] [address] [place] [address] Neha Borrego, DO 04/30/2025 2:00 PM EDT Routine [facility] [place] [address] [place] [address] Lindsey Guajardo PA 33 weeks gestation of ([facility]); Third trimester ([facility]); High blood pressure affecting in third trimester, antepartum ([facility]); induced hypertension, antepartum ([facility]) 04/30/2025 Telephone [facility] [place] [address] [place] [address] Juanis Esparza MA 04/30/2025 Clinisync Result Encounter [facility] External Department Unsolicited Neha Borrego, DO 04/30/2025 Clinisync Result Encounter [facility] External Department Unsolicited Neha Borrego, DO 04/23/2025 Clinisync Result Encounter [facility] External Department Unsolicited Neha Borrego, DO 04/22/2025 Abstract [facility] [address] [place] [address] Neha Borrego, DO 04/21/2025 3:20 PM EDT Routine [facility] [address] [place] [address] Neha Borrego, DO Third trimester ([facility]); 32 weeks gestation of ([facility]); Insulin controlled gestational diabetes mellitus (GDM) in third trimester ([facility]); Multigravida of advanced maternal age in third trimester ([facility]); Hypertension, unspecified type 04/21/2025 Bamboo flowsheet [facility] [address] [place] [address] Neha Borrego, 04/14/2025 9:00 AM EDT Routine [facility] [address] [place] [address] Neha Borrego, Third trimester ([facility]); 31 weeks gestation of ([facility]) 04/14/2025 Bamboo flowsheet [facility] [address] [place] [address] Neha Borrego DO 04/09/[address] [facility] [address] [place] [address] Mima Owusu LPN 04/08/2025 11:10 AM EDT Routine [facility] [address] [place] [address] Neha Borrego, Third trimester ([facility]); 30 weeks gestation of ([facility]); Gestational diabetes mellitus (GDM), antepartum, gestational diabetes method of control unspecified ([facility]) 04/08/2025 Bamboo flowsheet [facility] [address] [place] [address] Neha Borrego DO 04/01/2025 Abstract [facility] [address] [place] [address] Juanis Esparza MA 03/24/2025 11:10 AM EDT Routine [facility] [address] [place] [address] Neha Borrego DO Gestational diabetes mellitus (GDM), antepartum, gestational diabetes method of control unspecified ([facility]); Multigravida of advanced maternal age in third trimester ([facility]); Third trimester ([facility]); 28 weeks gestation of ([facility]) 03/24/2025 Bamboo flowsheet [facility] [address] [place] [address] Neha Borrego DO 03/21/2025 Refill [facility] [address] [facility] [address] Neha Borrego, headache, antepartum ([facility]) 03/04/2025 Abstract [facility] [address] [place] [address] Juanis Esparza MA 02/24/2025 10:20 AM EDT Routine [facility] [address] [place] [address] Neha Borrego DO Second trimester ([facility]); 24 weeks gestation of ([facility]) 02/24/2025 Bamboo flowsheet [facility] [address] [place] [address] Neha Borrego DO 02/18/2025 Telephone [facility] [address] [place] [address] Larisa Chowdary MA from [...] 6.4 oz) 05/12/2025 9:19 AM EDT Height 170.2 cm (5' 7 ) 05/06/2024 3:23 PM EDT Body Mass Index 34.52 05/06/2024 3:23 PM EDT Plan of Treatment Upcoming Encounters Date Type Department Care Team (Late st Contact Info) Description 05/19/2025 9:40 AM EDT Routine [facility] [address] [place] [address] Neha Borrego, DO [address] [facility] [place] [address] Health Maintenance Due Date Last Done Comments Influenza Vaccine (#1) 2025 Cervical Cancer Screening 09/16/2029 HPV/Cotest 09/16/2029 08/05/2020 Pap Smear 09/16/2029 09/16/2024 Procedures Procedure Name Priority Date/Time Associated Diagnosis Comments POCT URINALYSIS DIPSTICK Routine 05/12/2025 9:24 AM EDT 35 weeks gestation of ([facility]) Third trimester ([facility]) US OB BPP W NON-STRESS 05/07/2025 12:17 PM EDT US OB BPP W NON-STRESS 05/06/2025 9:29 AM EDT POCT URINALYSIS DIPSTICK Routine 05/05/2025 10:56 AM EDT 34 weeks gestation of ([facility]) Third trimester ([facility]) TBH URINE T PROTEIN CREAT RATIO Routine 04/30/2025 4:30 PM EDT ALL URIC ACID Routine 04/30/2025 3:08 PM EDT ALL LDH Routine 04/30/2025 3:08 PM EDT [facility] CMP (CMP) (FOR REMOTE [facility] USE) Routine 04/30/2025 3:08 PM EDT ALL CBC WITH AUTO DIFF Routine 04/30/2025 3:08 PM EDT POCT URINALYSIS DIPSTICK Routine 04/30/2025 2:19 PM EDT 33 weeks gestation of ([facility]) Third trimester ([facility]) US OB BPP W NON-STRESS 04/30/2025 7:10 AM EDT US OB GROWTH 04/30/2025 7:10 AM EDT US OB BPP W NON-STRESS 04/23/2025 8:03 AM EDT POCT URINALYSIS DIPSTICK Routine 04/21/2025 3:40 PM EDT Third trimester ([facility]) POCT URINALYSIS DIPSTICK Routine 04/14/2025 9:09 AM EDT Third trimester ([facility]) 31 weeks gestation of ([facility]) POCT URINALYSIS DIPSTICK Routine 04/08/2025 11:35 AM EDT Third trimester ([facility]) POCT URINALYSIS DIPSTICK Routine 03/24/2025 11:50 AM EDT Gestational diabetes mellitus (GDM), antepartum, gestational diabetes method of control unspecified ([facility]) POCT URINALYSIS DIPSTICK Routine 02/24/2025 10:57 AM EDT Second trimester ([facility]) 24 weeks gestation of ([facility]) PAP SMEAR Routine 09/16/2024 12:00 AM EST THINPREP TIS PAP REFLEX HPV MRNA E6/E7 (64330) Routine 08/05/2020 from Last 3 Months or Most Recently Relevant to Health Maintenance Results * (ABNORMAL) POCT urinalysis dipstick manually resulted (05/12/2025 9:24 AM EDT) Only the most recent of8 resultswithin the time period is included. Color, UA Yellow Clarity, UA Cloudy Glucose, [...] - Positive Urine 05/12/2025 9:24 AM EDT us Neha Elmo DO POINT OF CARE TEST ENTER/EDIT OR DERABLES Final Result * US OB BPP W NON-STRESS (05/07/2025 12:17 PM EDT) Only the most recent of4 resultswithin the time period is included. Anatomical Region Laterality Modality Other 05/07/2025 12:1 7 PM EDT Narrative 05/07/2025 12:20 PM EDT [address] [address] Ultrasound Report Signed Patient: LE WEEMS MR#: [id number] : 1990 Acct:[id number] Age/Sex: 34 / F ADM Date: 05/07/25 Loc: US Attending Dr: Neha Borrego D.O. Ordering Physician: Neha Borrego D.O. Date of Service: 05/07/25 Procedure(s): US OB BPP w non-stress Accession Number(s): [id number] cc: Neha Borrego D.O.; Physician,Non-Staff [place] [address] Patient Name: LE WEEMS MRN: [id number] date: 1990 Sex: F Assigned Patient Location: US Current Patient Location: Accession/Order Number: [id number] Exam Date: 05/07/2025 12:16 Report Date: 05/07/2025 [...] 05/07/2025 12:17 PM Dictation Location: [place] [address] Electronically authenticated by: [id number] Y Date: 05/07/2025 12:17 Dictated By: Mariam Olivares M.D. Signed By: 05/07/25 1220 DD/ 1217 TD/TT: Cancellation Clerk: Procedure Note Radiology, Radiologist, - 05/07/2025 [place] [address] Ultrasound Report Signed Patient: LE WEEMS RMR#: [id number] : 1990Acct:[id number] Age/Sex: 34 / FADM Date: 05/07/25 Loc: US Attending Dr: Neha Borrego D.O. Ordering Physician: Neha Borrego D.O. Date of Service: 05/07/25 Procedure(s): US OB BPP w non-stress Accession Number(s): [id number] cc: Neha Borrego D.O.; Physician,Non-Staff Dileep [address] [place] [id number] Patient Name: LE WEEMS MRN: [id number] date: 1990 Sex: F Assigned Patient Location: US Current Patient Location: Accession/Order Number: [id number] Exam Date: 05/07/2025 12:16 Report Date: 05/07/2025 [...] 05/07/2025 12:17 PM Dictation Location: [place] [address] Electronically authenticated by: [id number] Y Date: 2:17 Dictated By: Mariam Olivares M.D. Signed By:05/07/25 1220 DD/ 1217 TD/TT: Cancellation Clerk: Neha Elmo DO [facility] Final Result * (ABNORMAL) TBH URINE T [...] 0.55 - 1.02 mg/dL TBH TBH EGFR-AF MALDIVIAN >60 >=60 mL/min/1. 73m 2 TBH TBH EGFR-NON AF MALDIVIAN >60 >=60 mL/min/1. 73m 2 TBH BUN [...] DO CLINISYNC Final Result Performing Organization Address [facility] [address]/[facility] Co de Phone Number [facility] * ALL URIC ACID (04/30/2025 3:08 PM EDT) URIC ACID 5.7 2.6 - 6.0 mg/dL TB 04/30/2025 3:08 PM EDT 04/30/2025 3:12 PM EDT Narrative CLINIS[facility] - 04/30/2025 3:45 PM EDT Neha Elmo DO CLINISYNC Final Result Performing Organization Address City/State/[facility] Co de Phone Number [facility] * ALL LDH (04/30/2025 3:08 PM EDT) LACTATE DEHYDROGENASE 147 81 - 234 U/L TB 04/30/2025 3:08 PM EDT 04/30/2025 3:12 PM EDT Narrative CLINISY[facility] - 04/30/2025 3:44 PM EDT Neha Elmo DO [facility] Final Result [facility] * (ABNORMAL) ALL CBC WITH AUTO DIFF (04/30/2025 3:08 PM EDT) [facility] TBH WBC 11.6(H) 4.0 - 11.0 10 [...] EDT Neha Borrego DO CLINISYNC Final Result [facility] * US OB GROWTH (04/30/2025 7:10 AM EDT) Anatomical Region Laterality Modality Other 04/30/2025 7:10 AM EDT Narrative 04/30/2025 7:13 [place] [address] Ultrasound Report Signed Patient: LE WEEMS MR#: [id number] : 1990 Acct:[id number] Age/Sex: 34 / F ADM Date: 04/29/25 Loc: US Attending Dr: Neha Borrego D.O. Ordering Physician: Neha Borrego D.O. Date of Service: 04/29/25 Procedure(s): US OB growth Accession Number(s): [id number] cc: Neha Borrego D.O.; Physician,Non-Staff [place] [address] Patient Name: LE WEEMS MRN: [id number] date: 1990 Sex: F Assigned Patient Location: Current Patient Location: Accession/Order Number: [id number] Exam Date: 04/30/2025 07:02 Report Date: 04/30/2025 [...] 04/30/2025 7:10 AM Dictation Location: [place] [address] Electronically authenticated by: [id number] Y Date: 04/30/2025 07:10 Dictated By: Mariam Olivares M.D. Signed By: 04/30/25 0713 DD/ 0710 TD/TT: Cancellation Clerk: Procedure Note Radiology, Radiologist, MD - 04/30/2025 [place] [address] Ultrasound Report Signed Patient: LE WEEMSMR#: [id number] : 1990Acct:[id number] Age/Sex: 34 / FADM Date: 04/29/25 Loc: US Attending Dr: Neha Borrego D.O. Ordering Physician: Neha Borrego D.O. Date of Service: 04/29/25 Procedure(s): US OB growth Accession Number(s): [id number] cc: Neha Borrego D.O.; Physician,Non-Staff Dileep [place] [address] Patient Name: LE WEEMS MRN: [facility]:[id number] date: 1990 Sex: F Assigned Patient Location: Current Patient Location: Accession/Order Number: [id number] Exam Date: 04/30/2025 07:02 Report Date: 04/30/2025 [...] 04/30/2025 7:10 AM Dictation Location: [place] [address] Electronically authenticated by: [id number] Y Date: :10 Dictated By: Mariam Olivares M.D. Signed By:04/30/2513 DD/ 9 TD/TT: Cancellation Clerk: us Neha Elmo DO [facility] Final Result * Pap Smear (09/16/2024 12:00 AM EST) Swab Cervical swab / Unknown us Neha Elmo DO LAB CYTOLOGY ORDERABLES Final Re sult EXTERNAL LAB * THINPREP TIS PAP REFLEX HPV MRNA E6/E7 (76333) (08/05/2020) CLINICAL INFORMATION: None given [facility] [...] LAB Comment: ML, CT(ASCP) CT screening location: [place] [address]. COMMENT SEE COMMENT [facility] EXTERNAL [...] Most Recently Relevant to Health Maintenance Insurance BCBS
--- OUTSIDE RECORDS SUMMARY | 2025-05-13 07:59 | XMS_ITS | Encounter Summary ---
Author Organization [facility] Address [address] [place] [address] Care Team Providers Care Spice Fumigator Name Role Phone Unavailable Primary Care Provider Unavailabl e Encounter Details Date Type Department Care Team (Late st Contact Info) Description 04/22/2025 Abstract [facility] [address] [place] [address] Mik Borrego, DO [address] [place], [facility] Social History Tobacco Use Types Packs/Day [...] Description 05/19/2025 9:40 AM EDT Routine [facility] [address] [place] [address] Mik Borrego, DO [address] [place], [facility] documented as of this encounter Visit Diagnoses Not on filedocumented in this encounter
--- OUTSIDE RECORDS SUMMARY | 2025-05-13 07:59 | XMS_ITS | Encounter Summary ---
Author Organization [facility] Address [address] [place] [address] Care Team Providers Care Accounting Professor Name Role Phone Unavailable Primary Care Provider Unavailabl e Encounter Details Date Type Department Care Team (Late st Contact Info) Description 05/07/2025 Clinisync Result Encounter [facility] External Department Unsolicited Neha Borrego, DO [address] [place] [address] Social History Tobacco Use Types Packs/Day Years [...] AM EDT Routine [facility] [address] [facility] [place] [address] Neha Borrego, DO [address] [place] [address] documented as of this encounter Procedures Procedure Name Priority Date/Time Associated Diagnosis Comments US OB BPP W NON-STRESS 05/07/2025 12:17 PM EDT documented in this encounter Results * US OB BPP W NON-STRESS (05/07/2025 12:17 PM EDT) Anatomical Region Laterality Modality Other 05/07/2025 12:1 7 PM EDT Narrative 05/07/2025 12:20 PM EDT [address] [address] Ultrasound Report Signed Patient: JULISSA WEEMS MR#: [id number] : 1990 Acct:[id number] Age/Sex: 34 / F ADM Date: 05/07/25 Loc: US Attending Dr: Neha Borrego D.O. Ordering Physician: Neha Borrego D.O. Date of Service: 05/07/25 Procedure(s): US OB BPP w non-stress Accession Number(s): [id number] cc: Neha Borrego D.O.; Physician,Non-Staff Dileep [address] [address] Patient Name: JULISSA WEEMS MRN: [facility]:[id number] date: 1990 Sex: F Assigned Patient Location: US Current Patient Location: Accession/Order Number: [id number] Exam Date: 05/07/2025 12:16 Report Date: 05/07/2025 [...] PROFILE Impression dictated by: Mariam Oilvares M.D. 05/07/2025 12:17 PM Dictation Location: [place] [address] Electronically authenticated by: [id number] Y Date: 05/07/2025 12:17 Dictated By: Mariam Olivares M.D. Signed By: 05/07/25 1220 DD/ 1217 TD/TT: Casting Inspector: Procedure Note Radiology, Radiologist, MD - 05/07/2025 [place] [address] Ultrasound Report Signed Patient: JULISSA WEEMS RMR#: [id number] : 1990Acct:[id number] Age/Sex: 34 / FADM Date: 05/07/25 Loc: US Attending Dr: Neha Borrego D.O. Ordering Physician: Neha Borrego D.O. Date of Service: 05/07/25 Procedure(s): US OB BPP w non-stress Accession Number(s): [id number] cc: Neha Borrego D.O.; Physician,Non-Staff Dileep The [address] [id number] Patient Name: JULISSA WEEMS MRN: [id number] date: 1990 Sex: F Assigned Patient Location: Current Patient Location: Accession/Order Number: [id number] Exam Date: 05/07/2025 12:16 Report Date: 05/07/2025 [...] [Y] 2/2 SARA: 13.4 cm. Total score: 8/ US/US OB BPP w non-stress IMPRESSION: NORMAL BIOPHYSICAL PROFILE Impression dictated by: Mariam Olivares M.D. 05/07/2025 12:17 PM Dictation Location: [place] [address] Electronically authenticated by: [id number] Y Date: 2:17 Dictated By: Mariam Olivares M.D. Signed By:05/07/25 1220 DD/ 1217 TD/TT: Casting Inspector: us Neha Elmo DO [facility] Final Result documented in this encounter Visit Diagnoses Not on filedocumented in this encounter
--- OUTSIDE RECORDS SUMMARY | 2025-05-13 07:59 | XMS_ITS | Encounter Summary ---
Author Organization [facility] Address [id number] [address] [place] [address] Care Team Providers Care Sales Contract Administrator Name Role Phone Unavailable Primary Care Provider Unavailabl e Encounter Details Date Type Department Care Team (Late st Contact Info) Description 12/06/2024 Orders Only Maternal- Medicine at [facility] [place] [address] [place] [address] Ref Prov, [place] [address] Social History Tobacco Use Types Packs/Day Years [...]
--- OUTSIDE RECORDS SUMMARY | 2025-05-13 07:59 | XMS_ITS | Encounter Summary ---
Author Organization [facility] Address [address] [place] [address] Care Team Providers Care Order Entry Representative Name Role Phone Unavailable Primary Care Provider Unavailabl e Encounter Details Date Type Department Care Team (Late st Contact Info) Description 02/04/2025 Abstract [facility] OB [address] [place] [address] Mik Borrego, DO [address] [place], [facility]11 Social History Tobacco Use Types [...] Description 05/19/2025 9:40 AM EDT Routine [facility] [address] [place] [address] Mik Borrego, DO [address] [place], [facility]11 documented as of this encounter Visit Diagnoses Not on filedocumented in this encounter
--- OUTSIDE RECORDS SUMMARY | 2025-05-13 07:59 | XMS_ITS | Encounter Summary ---
Author Organization [facility] Address [address] [place] [address] Care Team Providers Care Auctioneer Automobile Name Role Phone Unavailable Primary Care Provider Unavailabl e Encounter Details Date Type Department Care Team (Late st Contact Info) Description 04/01/2025 Abstract [facility] [address] [facility] [place] [address] Juanis Esparza MA Social History Tobacco [...] Description 05/19/2025 9:40 AM EDT Routine [facility] [address] [place] [address] Mik Borrego [address] [place] [address] documented as of this encounter Visit Diagnoses Not on filedocumented in this encounter
--- OUTSIDE RECORDS SUMMARY | 2025-05-13 07:59 | XMS_ITS | Encounter Summary ---
Author Organization [facility] Address [address] [place] [address] Care Team Providers Care Patent Law Specialist Name Role Phone Unavailable Primary Care Provider Unavailabl e Encounter Details Date Type Department Care Team (Late st Contact Info) Description 11/08/2024 Clinisync Result Encounter [facility] External Department Unsolicited Neha Borrego, DO [address] [place] [address] Social History Tobacco Use Types Packs/Day Years [...] AM EDT Routine [facility] BCP OB [address] [place] [phone] Neha Borrego, DO [address] [place] [address] documented as of this encounter Procedures Procedure [...] AM EST Narrative 11/08/2024 11:35 [place] [address] Ultrasound Report Signed Patient: JULISSA WEEMS MR#: [id number] : 1990 Acct:[id number] Age/Sex: 33 / F ADM Date: 11/08/24 Loc: US Attending Dr: Neha Borrego D.O. Ordering Physician: Neha Borrego D.O. Date of Service: 11/08/24 Procedure(s): US OB transvaginal Accession Number(s): [id number] cc: Neha Borrego D.O.; Physician,Non-Staff M.D. [facility] [place] [id number] Patient Name: JULISSA WEEMS MRN: [id number] date: 1990 Sex: F Assigned Patient Location: US Current Patient Location: US Accession/Order Number: [id number] Exam Date: 11/08/2024 10:18 Report Date: 11/08/2024 [...] Signed By: 11/08/24 1135 DD/ 1132 TD/TT: Fish Bait Processing Supervisor: Procedure Note Radiology, Radiologist, MD - 11/08/2024 [place] [address] Ultrasound Report Signed Patient: JULISSA WEEMSMR#: [id number] : 1990Acct:[id number] Age/Sex: 33 / FADM Date: 11/08/24 Loc: US Attending Dr: Neha Borrego D.O. Ordering Physician: Neha Borrego D.O. Date of Service: 11/08/24 Procedure(s): US OB transvaginal Accession Number(s): [id number] cc: Neha Borrego D.O.; Physician,Non-Staff Dileep [facility] [place] [id number] Patient Name: JULISSA WEEMS MRN: [id number] date: 1990 Sex: F Assigned Patient Location: US Current Patient Location: US Accession/Order Number: [id number] Exam Date: 11/08/2024 10:18 Report Date: 11/08/2024 [...] live intrauterine . Electronically authenticated by: JAIME RADON Date: 11/08/2024 11:32 Dictated By: Jaime Ardon M.D. Signed By:11/08/24 1135 DD/ 1132 TD/TT: Fish Bait Processing Supervisor: Neha Elmo DO [facility] Final Result * HBSAG SCREEN (11/08/2024 10:14 AM EST) Pathologist [facility] HBSAG SCREEN Negative Negative [facility] Comment: Performed at: [address] [id number] Fusing Line Inspector: Toni Espinal PhD, Phone: [phone] 11/08/2024 10:1 4 AM EST 11/08/2024 10:16 AM EST Narrative CLINISYAR - 11/09/2024 12:09 PM EST Neha Elmo DO LAB BLOOD ORDERABLES Final Resul t [facility] * RAPID PLASMA REAGIN, QUANT (11/08/2024 10:14 AM EST) Pathologist [facility] RAPID PLASMA REAGIN, QUANT Non Reactive NonRea<1: 1 titer [facility] Comment: Please Note: This test does not meet current guidelines for screening and diagnosis of syphilis. This test is intended for following treatment response in patients being treated for syphilis infection. To screen for syphilis infection, a reflex cascade that includes both RPR and a treponema-specific assay should be utilized, such as Treponema pallidum (Syphilis) Screening Carter (630579) or Rapid Plasma Reagin (RPR) Test With Reflex to Quantitative RPR and Confirmatory Treponema pallidum Antibodies (031493). Performed at: [address] [id number] Fusing Line Inspector: Toni Espinal PhD, Phone: [phone] 11/08/2024 10:1 4 AM EST 11/08/2024 10:16 AM EST Narrative CLINISYNC - 11/09/2024 12:09 PM EST [facility] BLOOD ORDERABLES Final Resul t Performing Organization Address [facility] Co de Phone Number [facility] * HCV ANTIBODY RFX TO QUANT PCR (11/08/2024 10:14 AM EST) HCV AB Non Reactive Non Reactive TB INTERPRETATION: Comment . TB Comment: Not infected with HCV unless early or acute infection is suspected (which may be delayed in an immunocompromised individual), or other evidence exists to indicate HCV infection. 11/08/2024 10:1 4 AM EST 11/08/2024 10:16 AM EST Narrative CLIN[facility]NC - 11/09/2024 5:07 AM EST [facility] BLOOD ORDERABLES Final Resul t Performing Organization Address City/[facility] Co de Phone Number [facility] * HIV AB/P24 AG WITH REFLEX (11/08/2024 10:14 AM EST) HIV AB/P24 AG SCREEN Non Reactive Non Reactive TB Comment: HIV-1/HIV-2 antibodies and HIV-1 p24 antigen were NOT detected. There is no laboratory evidence of HIV infection. HIV Negative Performed at: [address] [id number] Fusing Line Inspector: Toni Espinal PhD, Phone: [phone] 11/08/2024 10:1 4 AM EST 11/08/2024 10:16 AM EST Narrative CLIN[facility]YNC - 11/09/2024 5:07 AM EST us Neha Jaino DO LAB BLOOD ORDERABLES Final Resul t Performing Organization Address City/[facility]/ZIP Co de Phone Number [facility] TB * ALL RUBELLA IGG AB (11/08/2024 10:14 AM EST) RUBELLA ANTIBODIES, IGG 1.78 Immune >0.99 index [facility] Comment: Non-immune <0.90 Equivocal 0.90 - 0.99 Immune >0.99 11/08/2024 10:1 4 AM EST 11/08/2024 10:16 AM EST Narrative CLIN[facility]YNC - 11/09/2024 5:07 AM EST us Neha Jaino DO [facility]IN[facility] Final Result Performing Organization Address [facility] Co de Phone Number [facility] * ALL TYPE AND SCREEN (11/08/2024 10:14 AM EST) BLOOD TYPE B Positive [facility] ANTIBODY SCREEN NEGATIVE [facility] 11/08/2024 10:1 4 AM EST 11/08/2024 10:16 AM EST Narrative CLINISYNC - 11/08/2024 12:24 PM EST [facility] , Neha Elmo DO CLINIS[facility]NC Final Result Performing Organization Address City/[facility] Co de Phone Number [facility] documented in this encounter Visit Diagnoses Not on filedocumented in this encounter
--- OUTSIDE RECORDS SUMMARY | 2025-05-13 07:59 | XMS_ITS | Encounter Summary ---
Author Organization [facility] Address [address] [place] [address] Care Team Providers Care Manager Application Development Name Role Phone Unavailable Primary Care Provider Unavailabl e Encounter Details Date Type Department Care Team (Late st Contact Info) Description 02/04/2025 Abstract [facility] OB [address] [place] [address] Mik Borrego, DO [address], [facility] Social History Tobacco Use Types Packs/Day [...] Description 05/19/2025 9:40 AM EDT Routine [facility] OB [address] [place] [address] Mik Borrego, DO [address], [facility] documented as of this encounter Visit Diagnoses Not on filedocumented in this encounter
--- OUTSIDE RECORDS SUMMARY | 2025-05-13 07:59 | XMS_ITS | Encounter Summary ---
Author Organization [facility] Address [address] [place] [address] Care Team Providers Care Public Health Microbiologist Name Role Phone Unavailable Primary Care Provider Unavailabl e Encounter Details Date Type Department Care Team (Late st Contact Info) Description 05/05/2025 Abstract [facility] OB [address] [place] [address] Mik Borrego, DO [address], [facility] Social [...] 9:40 AM EDT Routine [facility] OB [address] [place] [address] Mik Borrego, DO [address], [facility]11 documented as of this encounter Visit Diagnoses Not on filedocumented in this encounter
--- OUTSIDE RECORDS SUMMARY | 2025-05-13 07:59 | XMS_ITS | Encounter Summary ---
Author Organization [facility] Address [address] [place] [address] Care Team Providers Care Sap Analyst Name Role Phone Unavailable Primary Care Provider Unavailabl e Encounter Details Date Type Department Care Team (Late st Contact Info) Description 02/03/2025 Abstract [facility] OB [address] [place] [address] Mik Borrego, DO [address], [facility]11 Social History Tobacco Use Types [...] Description 05/19/2025 9:40 AM EDT Routine [facility] OB [address] [place] [address] Mik Borrego, DO [address], [facility]11 documented as of this encounter Visit Diagnoses Not on filedocumented in this encounter
--- OUTSIDE RECORDS SUMMARY | 2025-05-13 07:59 | XMS_ITS | Encounter Summary ---
Author Organization [facility] Address [address] [place] [address] Care Team Providers Care Housekeeping Manager Name Role Phone Unavailable Primary Care Provider Unavailabl e Encounter Details Date Type Department Care Team (Late st Contact Info) Description 04/30/2025 Clinisync Result Encounter [facility] External Department Unsolicited Neha Borrego, DO [address] [place] [address] Social History Tobacco Use Types Packs/Day Years [...] AM EDT Routine [facility] [address] [facility] [phone] Neha Borrego, DO [address] [place] [address] documented as of this encounter Procedures Procedure Name Priority Date/Time Associated Diagnosis Comments US OB GROWTH 04/30/2025 7:10 AM EDT documented in this encounter Results * US OB GROWTH (04/30/2025 7:10 AM EDT) Anatomical Region Laterality Modality Other 04/30/2025 7:10 AM EDT Narrative 04/30/2025 7:13 [place] [address] Ultrasound Report Signed Patient: JULISSA WEEMS MR#: [id number] : 1990 Acct:[id number] Age/Sex: 34 / F ADM Date: 04/29/25 Loc: US Attending Dr: Neha Borrego D.O. Ordering Physician: Neha Borrego D.O. Date of Service: 04/29/25 Procedure(s): US OB growth Accession Number(s): [id number] cc: Neha Borrego D.O.; Physician,Non-Staff M.David [place] [id number] Patient Name: JULISSA WEEMS MRN: [id number] date: 1990 Sex: F Assigned Patient Location: US Current Patient Location: Accession/Order Number: [id number] Exam Date: 04/30/2025 07:02 Report Date: 04/30/2025 [...] Olivares M.D. 04/30/2025 7:10 AM Dictation Location: [place] [address] Electronically authenticated by: [id number] Y Date: 04/30/2025 07:10 Dictated By: Mariam Olivares M.D. Signed By: 04/30/25712 DD/ 9 TD/TT: Show Operations Supervisor: Procedure Note Radiology, Radiologist, MD - 04/30/2025 [place] [address] Ultrasound Report Signed Patient: JULISSA WEEMSMR#: [id number] : 1990Acct:[id number] Age/Sex: 34 / FADM Date: 04/29/25 Loc: US Attending Dr: Neha Borrego D.O. Ordering Physician: Neha Borrego D.O. Date of Service: 04/29/25 Procedure(s): US OB growth Accession Number(s): [id number] cc: Neha Borrego D.O.; Physician,Non-Staff Dileep The [address] [address] Patient Name: JULISSA WEEMS MRN: [id number] date: 1990 Sex: F Assigned Patient Location: US Current Patient Location: Accession/Order Number: [id number] Exam Date: 04/30/2025 07:02 Report Date: 04/30/2025 07:10 At the request of: NEHA BROREGO DO Procedure: US OB BPP w non-stress [...] Olivares M.D. 04/30/2025 7:10 AM Dictation Location: [place] [address] Electronically authenticated by: [id number] Y Date: 7:10 Dictated By: Mariam Olivares M.D. Signed By:04/30/25 0713 DD/ 0710 TD/TT: Show Operations Supervisor: us Neha Borrego DO [facility] Final Result documented in this encounter Visit Diagnoses Not on filedocumented in this encounter
--- OUTSIDE RECORDS SUMMARY | 2025-05-13 07:59 | XMS_ITS | Encounter Summary ---
Author Organization [facility] Address [address] [place] [address] Care Team Providers Care Residential Real Estate Appraiser Name Role Phone Unavailable Primary Care Provider Unavailabl e Encounter Details Date Type Department Care Team (Late st Contact Info) Description 11/11/2024 Abstract [facility] OB [address] [place] [address] Mik Borrego, DO [address], [facility]11 Social History Tobacco Use Types [...] Description 05/19/2025 9:40 AM EDT Routine [facility] OB [address] [place] [address] Mik Borrego, DO [address], [facility]11 documented as of this encounter Visit Diagnoses Not on filedocumented in this encounter
--- OUTSIDE RECORDS SUMMARY | 2025-05-13 07:59 | XMS_ITS | Encounter Summary ---
Author Organization [facility] Address [address] [place] [address] Care Team Providers Care Dry Goods Inspector Name Role Phone Unavailable Primary Care Provider Unavailabl e Encounter Details Date Type Department Care Team (Late st Contact Info) Description 01/22/2025 Abstract [facility] OB [address] [place] [address] Mik Borrego, DO [address], [facility]11 Social History Tobacco Use [...] Description 05/19/2025 9:40 AM EDT Routine [facility] OB [address] [place] [phone] Mik Borrego, DO [address], [facility]11 documented as of this encounter Visit Diagnoses Not on filedocumented in this encounter
--- OUTSIDE RECORDS SUMMARY | 2025-05-13 07:59 | XMS_ITS | Encounter Summary ---
Author Organization [facility] Address [address] [place] [address] Care Team Providers Care Transportation Lead Name Role Phone Unavailable Primary Care Provider Unavailabl e Encounter Details Date Type Department Care Team (Late st Contact Info) Description 01/22/2025 Abstract [facility] OB [address] [place] [address] Mik Borrego, DO [address], [facility]11 Social History Tobacco Use Types Packs/Day [...] Description 05/19/2025 9:40 AM EDT Routine [facility] OB [address] [place] [address] Mik Borrego, DO [address], [facility]11 documented as of this encounter Visit Diagnoses Not on filedocumented in this encounter
--- OUTSIDE RECORDS SUMMARY | 2025-05-13 07:59 | XMS_ITS | Encounter Summary ---
Author Organization [facility] Address [address] [place] [address] Care Team Providers Care Boilermaker Pipe Fitter Name Role Phone Unavailable Primary Care Provider Unavailabl e Encounter Details Date Type Department Care Team (Late st Contact Info) Description 03/04/2025 Abstract [facility] [address] [place] [address] Juanis Esparza MA Social History Tobacco [...] Description 05/19/2025 9:40 AM EDT Routine NOMS [address] [place] [address] Mik Borrego [address] [place] [address] documented as of this encounter Visit Diagnoses Not on filedocumented in this encounter
--- OUTSIDE RECORDS SUMMARY | 2025-05-13 07:59 | XMS_ITS | Encounter Summary ---
Author Organization [facility] Address [address] [place] [address] Care Team Providers Care Night Auditor Name Role Phone Unavailable Primary Care Provider Unavailabl e Encounter Details Date Type Department Care Team (Late st Contact Info) Description 04/30/2025 Telephone [facility] BCP OB [address] [facility] [place] [phone] Juanis Esparza MA Social History Tobacco Use [...] [address] [facility] [place] [address] Mik Borrego, [address] [place], [place] [id number] documented as of this encounter Visit Diagnoses Not on filedocumented in this encounter
--- OUTSIDE RECORDS SUMMARY | 2025-05-13 07:59 | XMS_ITS | Encounter Summary ---
Author Organization [facility] Address [address] [place] [address] Care Team Providers Care Vp Customer Development Name Role Phone Unavailable Primary Care Provider Unavailabl e Encounter Details Date Type Department Care Team (Late st Contact Info) Description 10/08/2024 Orders Only [facility] OB [address] [place] [address] [place] [phone] Larisa Chowdary MA [address] [place] [address] [place] [address] Social History Tobacco Use Types Packs/Day Years [...] Description 05/19/2025 9:40 AM EDT Routine NOMS [address] [place] [address] Mik Borrego DO [address] [place] [address] [address] [place], [facility]11 documented as of this encounter Procedures [...]
--- OUTSIDE RECORDS SUMMARY | 2025-05-13 07:59 | XMS_ITS | Encounter Summary ---
Author Organization [facility] Address [address] [place] [address] Care Team Providers Care Seo Marketing Specialist Name Role Phone Unavailable Primary Care Provider Unavailabl e Encounter Details Date Type Department Care Team (Late st Contact Info) Description 01/21/2025 Abstract [facility] OB [address] [place] [address] Mik Borrego, DO [address], [facility]11 Social History Tobacco Use Types [...] Description 05/19/2025 9:40 AM EDT Routine [facility] OB [address] [place] [address] Mik Borrego, DO [address], [facility]11 documented as of this encounter Visit Diagnoses Not on filedocumented in this encounter
--- OUTSIDE RECORDS SUMMARY | 2025-05-13 07:59 | XMS_ITS | Encounter Summary ---
Author Organization [facility] Address [address] [place] [address] Care Team Providers Care Double Ending Machine Operator Name Role Phone Unavailable Primary Care Provider Unavailabl e Encounter Details Date Type Department Care Team (Late st Contact Info) Description 05/05/2025 Bamboo flowsheet [facility] OB [address] [place] [address] Mik Borrego, DO [address], [place] [address] Social History Tobacco Use Types Packs/Day Years [...] Description 05/19/2025 9:40 AM EDT Routine [facility] OB [address] [place] [address] Mik Borrego, DO [address], [facility]11 documented as of this encounter Visit Diagnoses Not on filedocumented in this encounter
--- OUTSIDE RECORDS SUMMARY | 2025-05-13 07:59 | XMS_ITS | Clinical Summary ---
Author Organization [employer] [facility] Address [id number] [address] [place] [address] Care Team Providers Care Retail Client Solutions Consultant Name Role Phone Unavailable Primary Care Provider [...] Description 04/01/2025 Orders Only Maternal- Medicine at [facility] [address] [place] [address] Michelle Ashraf RN Chronic hypertension affecting (Primary Dx); Gestational diabetes mellitus (GDM), antepartum, gestational diabetes method of control unspecified 03/31/2025 10:39 AM EDT - 03/31/2025 11:59 PM EDT Hospital Encounter [facility] US Imaging [address] [place] [address] Chronic hypertension affecting ; Advanced maternal age in multigravida, second trimester; Gestational diabetes mellitus (GDM), antepartum, gestational diabetes method of control unspecified Discharge Disposition: Home 03/31/2025 Travel 03/04/2025 Orders Only Maternal- Medicine at [facility] [address] [place] [address] Oralia Elliott CMA Chronic hypertension affecting (Primary Dx); Advanced maternal age in multigravida, second trimester; Gestational diabetes mellitus (GDM), antepartum, gestational diabetes method of control unspecified 03/03/2025 10:32 AM EDT - 03/03/2025 11:59 PM EDT Hospital Encounter [facility] US Imaging [address] [place] [address] Chronic hypertension affecting ; Advanced maternal age [...] Procedure Name Priority Date/Time Associated Diagnosis Comments RUST OB FOLLOW-UP, 1 FETUS Routine 03/31/2025 11:47 [...] period is included. Anatomical Region Laterality Modality OB-PROFESSOR OF CHEMISTRY Ultrasound 03/31/2025 11:2 5 AM EDT Narrative 03/31/2025 1:02 PM EDT NAME: SEDA LUJAN : 1990 SEX: F Accession Number: [id number] ORDERING PHYSICIAN: LORENZA RAGSDALE REFERRING PHYSICIAN: NEHA CAMPBELL Coding ----- --------- Procedures 12595: Follow-up Ultrasound, per fetus Indication ----- --------- Gestational diabetes, Chronic hypertension affecting , Obesity in , AMA- Supervision of elderly History ----- --------- OB History 1. Para 0 [id number] Maternal Assessment ----- --------- Physical Exam Height [...] EFW (oz) 12 oz EFW by: Hadlock ([id number]) Extended Tibia 50.8 mm 30w 2d 75% Santhosh Registered Medical Transcriptionist 4.3 mm CM 4.6 mm 3% Nicolaides [...] LUJAN : 1990 SEX: F Accession Number: [id number] ORDERING PHYSICIAN: LORENZA RAGSDALE REFERRING PHYSICIAN: NEHA CAMPBELL Coding ----- --------- Procedures 58311: Follow-up Ultrasound, per fetus Indication ----- --------- Gestational diabetes, Chronic hypertension affecting , Obesityin , AMA- Supervision of elderly History ----- --------- OB History 1. Para 0 [id number] Maternal Assessment ----- --------- Physical Exam Height [...] EFW (oz) 12 oz EFW by: Hadlock ([id number]) Extended Tibia 50.8 mm 30w 2d 75% Santhosh Registered Medical Transcriptionist 4.3 mm CM 4.6 mm 3% Nicolaides [...] byprimary OB provider unless otherwise specified by [facility]. Results forwarded to ordering provider so they can follow up with thepatient as necessary. us Lorenza Ragsdale MD [facility] ORDERABLES Final Re sult from Last 3 Months Insurance [facility]
--- OUTSIDE RECORDS SUMMARY | 2025-05-13 07:59 | XMS_ITS | Encounter Summary ---
Author Organization [facility] Address [address] [place] [address] Care Team Providers Care Academic Department Chair Name Role Phone Unavailable Primary Care Provider Unavailabl e Encounter Details Date Type Department Care Team (Late st Contact Info) Description 05/06/2025 Clinisync Result Encounter [facility] External Department Unsolicited Neha Borrego, DO [address] [place] [address] Social History Tobacco Use Types Packs/Day Years [...] AM EDT Routine [facility] [address] [facility] [place] [place] [id number] Neha Borrego, DO [address] [place] [address] documented as of this encounter Procedures Procedure Name Priority Date/Time Associated Diagnosis Comments US OB BPP W NON-STRESS 05/06/2025 9:29 AM EDT documented in this encounter Results * US OB BPP W NON-STRESS (05/06/2025 9:29 AM EDT) Anatomical Region Laterality Modality Other 05/06/2025 9:29 AM EDT Narrative 05/06/2025 9:32 AM EDT [address] [address] Ultrasound Report Signed Patient: JULISSA WEEMS MR#: [id number] : 1990 Acct:[id number] Age/Sex: 34 / F ADM Date: 05/06/25 Loc: [facility] 250-[address]: Neha Borrego D.O. Ordering Physician: Neha Borrego D.O. Date of Service: 05/06/25 Procedure(s): US OB BPP w non-stress Accession Number(s): [id number] cc: Neha Borrego D.O.; Physician,Non-Staff Dileep [address] [address] Patient Name: JULISSA WEEMS MRN: [facility]:[id number] date: 1990 Sex: F Assigned Patient Location: [facility] Current Patient Location: [facility] Accession/Order Number: [id number] Exam Date: 05/06/2025 09:07 Report Date: 05/06/2025 [...] Olivares M.D. 05/06/2025 9:29 AM Dictation Location: [place] [address] Electronically authenticated by: [id number] Y Date: 05/06/2025 09:29 Dictated By: Mariam Olivares M.D. Signed By: 05/06/25931 DD/ 8 TD/TT: Florist: Procedure Note Radiology, Radiologist, MD - 05/06/2025 [place] [address] Ultrasound Report Signed Patient: JULISSA WEEMS RMR#: [id number] : 1990Acct:[id number] Age/Sex: 34 / FADM Date: 05/06/25 Loc: [facility] 250-[address]: Neha Borrego D.O. Ordering Physician: Neha Borrego D.O. Date of Service: 05/06/25 Procedure(s): US OB BPP w non-stress Accession Number(s): [id number] cc: Neha Borrego D.O.; Physician,Non-Staff Dileep [address] [place] [id number] Patient Name: JULISSA WEEMS MRN: [id number] date: 1990 Sex: F Assigned Patient Location: [facility] Current Patient Location: [facility] Accession/Order Number: [id number] Exam Date: 05/06/2025 09:07 Report Date: 05/06/2025 [...] Olivares M.D. 05/06/2025 9:29 AM Dictation Location: [place] [address] Electronically authenticated by: [id number] Y Date: 9:29 Dictated By: Mariam Olivares M.D. Signed By:05/06/2532 DD/ 8 TD/TT: Florist: us Neha Elmo DO [facility] Final Result documented in this encounter Visit Diagnoses Not on filedocumented in this encounter
--- OUTSIDE RECORDS SUMMARY | 2025-05-13 08:00 | XMS_ITS | Encounter Summary ---
Author Organization [facility] Address [address] [place] [address] Care Team Providers Care Boiler Tenders Supervisor Name Role Phone Unavailable Primary Care Provider Unavailabl e Encounter Details Date Type Department Care Team (Late st Contact Info) Description 09/16/2024 Abstract [facility] OB [address] [place] [id number] Mik Borrego, DO [address], [place] [address] Social History Tobacco Use Types Packs/Day Years [...] Description 05/19/2025 9:40 AM EDT Routine [facility] OB [address] [place] [phone] Mik Borrego, DO [address], [place] [id number] documented as of this encounter Visit Diagnoses Not on filedocumented in this encounter
--- OUTSIDE RECORDS SUMMARY | 2025-05-13 08:00 | XMS_ITS | Encounter Summary ---
Author Organization [facility] Address [address] [place] [address] Care Team Providers Care Roller Helper Name Role Phone Unavailable Primary Care Provider Unavailabl e Encounter Details Date Type Department Care Team (Late st Contact Info) Description 05/12/2025 Bamboo flowsheet [facility] OB [address] [place] [address] Mik Borrego, DO [address], [place] [address] Social History Tobacco Use Types Packs/Day Years [...] Description 05/19/2025 9:40 AM EDT Routine [facility] [address] [place] [address] Mik Borrego, DO [address], [facility] documented as of this encounter Visit Diagnoses Not on filedocumented in this encounter
--- OUTSIDE RECORDS SUMMARY | 2025-05-13 08:00 | XMS_ITS | Encounter Summary ---
Author Organization [facility] Address [address] [place] [address] Care Team Providers Care Tumbler Dyeing Machine Operator Name Role Phone Unavailable Primary Care Provider Unavailabl e Encounter Details Date Type Department Care Team (Late st Contact Info) Description 05/12/2025 Abstract [facility] OB [address] [place] [address] [...] Description 05/19/2025 9:40 AM EDT Routine [facility] [address] [place] [address] Mik Borrego, DO [address], [facility] documented as of this encounter Visit Diagnoses Not on filedocumented in this encounter
--- OUTSIDE RECORDS SUMMARY | 2025-05-13 08:18 | XMS_ITS | CCD ---
Author Organization [facility] Care Team Providers Care Assembly Hand Name Role Phone Helene HAMILTON Darwin Primary [...] COBB Attending Unavailable ELMO, MIK Attending Unavailable Allergies Allergy Classification Reported Allergen(s) Allergy Type Date of Onset Reaction(s) Facility (20 sources) metFORMIN; Translations: [metformin] Drug Allergy 05-06-20 Rhabdomyolysis (disorder), Other (See Comments) [facility] (20 sources) Phentermine; Translations: [phentermine] Drug Allergy 09-16-20 Dyspnea (finding), Weal (disorder), Shortness of breath [facility] (20 sources) dulaglutide; Translations: [DULAGLUTIDE] Drug Allergy 05-06-20 [facility] (20 sources) Sulfites; Translations: [SULFITES] Propensity to adverse reactions 05-06-20 [facility] (20 sources) metFORMIN Drug Allergy 09-16-20 [facility] (20 sources) Other Propensity to adverse reactions 11-25-19 [facility] (9 sources) dulaglutide Drug Allergy 12-06-19 [facility] (20 sources) Gelatin; Translations: [GELATIN] Drug Allergy 12-06-19 [facility] (20 sources) metFORMIN Drug Allergy 12-31-19 [facility] (20 sources) Pollen Propensity to adverse reactions 12-31-19 Unknown [facility] (20 sources) Prednisone Allergy to substance 12-31-19 Rash [facility] (20 sources) Propranolol Drug Allergy 12-31-19 [facility] (3 sources) No Known Medication Allergies; Translations: [No Known Medication Allergies] Propensity to adverse reactions (disorder) [facility] Repository Medications Current Medications Medication Drug Class(es) Dates Sig (Normalized) Sig (Original) [id number] 200 actuat albuterol 0.09 mg/actuat metered dose inhaler (20 sources) beta2-Adrenergic Agonist Start: 04-04-2024 albuterol HFA 90 mcg/act inhaler 04/04/2024 Active Start: 10-19-2021 take 1 dose by inhal ation every four hours ProAir HFA 90 mcg/inh inhalation aerosol 2 puff(s), Inhalation, q4hr for wheezing, 1 EA, Refill(s) 11, [facility] #[id number], 170, cm, 07/13/21 9:30:00 EDT, Height/Length Dosing, [...] q6hr for wheezing, 18 gram, Refill(s) 0, [facility] #[id number], 170, cm, 05/17/22 11:42:00 EDT, Height/Length Dosing, [...] diabetes method of control unspecified ([facility]) , Elevated glucose tolerance test 1 kit [...] 4times daily. 1 kit 01/27/2025 01/27/2026 Active 24 hr buPROPion hydrochloride 150 mg extended release oral tablet (9 sources) Aminoketone Start: 06-20-2022 take 1 tablet by mouth every twenty-four hours Wellbutrin XL 150 mg/24 hours Tab-ER 150 mg = 1 tab(s), Oral, q24hr, # 90 tab(s), Refills(s) 1, Pharmacy: [facility] #[id number], 170, cm, 05/17/22 11:42:00 EDT, Height/Length Dosing, 95.1, kg, 05/17/22 11:42:00 EDT, Weight Dosing Start Date: 06/20/22 Status: Ordered Quantity: 90.0 Unit: tab(s) Repeat number: 2 Start: 03-08-2022 take 1 tablet by volodymyr th every twenty-four hours Wellbutrin XL 150 mg/24 hours Tab-ER 150 mg = 1 tab(s), Oral, q24hr, # 30 tab(s), Refills(s) 2, Pharmacy: [facility] #[id number], 170, cm, 03/08/22 10:25:00 EDT, Height/Length Dosing, 98.4, kg, 03/08/22 10:25:00 EDT, Weight Dosing Start Date: 03/08/22 Status: Ordered Start: 03-08-2022 take 1 tablet by volodymyr th every twenty-four hours Wellbutrin XL 150 mg/24 hours Tab-ER 150 mg = 1 tab(s), Oral, q24hr, # 30 tab(s), Refills(s) 2, Pharmacy: [facility] #[id number], 170, cm, 03/08/22 10:25:00 EDT, Height/Length Dosing, 98.4, kg, 03/08/22 10:25:00 EDT, Weight Dosing Start Date: 03/08/22 Status: Ordered cetirizine hydrochloride 10 mg oral tablet (20 sources) Histamine-1 Receptor Antagonist cetirizine (ZyrTEC) 10 MG tablet Take by mouth Active insulin isophane, human 100 unt/ml injectable suspension (20 sources) Start: 025 End: inject 5 [IU] by subcutaneous injection in the morning insulin NPH, Isophane, (HumuLIN N,NovoLIN N) 100 UNIT/ML injection Indications: Gestational Diabetes Inject 5 Units under the skin in the morning and 5 Units in the evening. Inject before meals. 3 mL 04/08/2025 05/12/2025 Discontinued inject 15 [IU] by avalos bcutaneous injection in the morning insulin NPH, Isophane, (HumuLIN N,NovoLIN N) 100 UNIT/ML injection Inject 15 Units under the skin in the morning and 15 Units in the evening. Inject before meals. Active insulin, regular, human 100 unt/ml injectable solution (20 sources) Insulin Start: 04-08-2025 End: 04-08-2026 inject 5 [IU] by subcutaneous injection once in the morning, then inject 5 [IU] by subcutaneous injection once in the evening insulin regular (HumuLIN R,NovoLIN R) 100 UNIT/ML injection Indications: Gestational diabetes mellitus (GDM), antepartum, gestational diabetes method of control unspecified (HHS-HCC) 5 units sub q in the am and 5 units sub q in the evening 3 mL 3 04/08/2025 05/12/2025 Discontinued inject 10 [IU] by avalos bcutaneous injection in the morning insulin regular (HumuLIN R,NovoLIN R) 100 UNIT/ML patient supplied pump Inject 10 Units under the skin in the morning and 10 Units before bedtime. Active isopropyl alcohol 0.7 ml/ml medicated pad (20 sources) Start: 01-27-2025 Alcohol Swabs (Alcohol Prep Pad) 70 % pads Indications: Gestational diabetes mellitus (GDM), antepartum, gestational diabetes method of control unspecified (HHS-HCC) , Elevated glucose tolerance test Apply 1 Pad topically Daily Use four times daily to check FSBS. 150 each 3 01/29/2025 Active lisdexamfetamine dimesylate 50 mg oral capsule (12 sources) Central Nervous System Stimulant Start: 10-03-2022 End: 01-27-2025 take 1 capsule by mouth once daily in the morning Vyvanse 50 mg oral capsule 50 mg, 1 cap(s), Oral, qAM, Refill(s) 0 Start Date: 10/03/22 Status: Ordered Repeat number: 1 magnesium oxide 400 mg oral tablet (20 sources) Start: 03-21-2025 take 1 tablet by mouth once daily MAGnesium-Oxide 400 (240 Mg) MG tablet Indications: headache, antepartum (HHS-HCC) Take 1 tablet by [...] qPM, # 90 tab(s), Refills(s) 3, Pharmacy: [facility] #[id number], 170, cm, 05/17/22 11:42:00 EDT, Height/Length Dosing, 95.1, kg, 05/17/22 11:42:00 EDT, Weight Dosing Start Date: 10/03/22 Status: Ordered Quantity: 90.0 Unit: tab(s) Repeat number: 4 naltrexone hydrochloride 50 mg oral tablet (8 sources) Opioid Antagonist Start: 04-12-2022 take 1 tablet by mouth once daily naltrexone 50 mg oral tablet See Instructions, 1 tablet daily, # 90 tab(s), Refills(s) 0, Pharmacy: [facility] #[id number], 170, cm, 04/12/22 11:02:00 EDT, Height/Length Dosing, [...] pain, # 10 tab(s), Refills(s) 0, Pharmacy: [facility] #[id number], 170, cm, 05/11/22 22:56:00 EDT, Height/Length Dosing, [...] E66.9, # 30 tab(s), Refills(s) 0, Pharmacy: [facility] #[id number], 170, cm, 03/08/22 10:25:00 EDT, Height/Length Dosing, [...] mg, SubCutaneous, qWeek, 1 EA, Refill(s) 5, [facility] #[id number], 170, cm, 05/11/22 22:56:00 EDT, Height/Length Dosing, 89, kg, 05/11/22 22:56:00 EDT, Weight Dosing Start Date: 05/12/22 Status: Ordered Quantity: 1.0 Unit: EA Repeat number: 6 spironolactone 25 mg oral tablet (9 sources) Aldosterone Antagonist Start: 06-22-2021 take 1 tablet by mouth twice daily spironolactone 25 mg Tab 25 mg = 1 tab(s), Oral, BID, # 180 tab(s), Refills(s) 3, Pharmacy: [facility], 170, cm, 04/06/21 9:19:00 EDT, Height/Length Dosing, 90, kg, 04/06/21 9:19:00 EDT, Weight Dosing Start Date: 06/22/21 Status: Ordered Quantity: 180.0 Unit: tab(s) Repeat number: 4 tretinoin 0.0004 mg/mg topical gel (6 sources) Retinoid Start: 02-17-2023 apply 1 [IU] topically once daily at bedtime tretinoin Top 0.04% Gel 1 sonya, Topical, Once a day (at bedtime), 45 gram, Refill(s) 0, [facility] #[id number], 170, cm, 05/17/22 11:42:00 EDT, Height/Length Dosing, 95.1, kg, 05/17/22 11:42:00 EDT, Weight Dosing Start Date: 02/17/23 Status: Ordered Quantity: 45.0 Unit: g Repeat number: 1 Start: 12-02-2022 apply 1 [IU] topical ly once daily at bedtime tretinoin Top 0.1% Crm 1 sonya, Topical, Once a day (at bedtime), 20 gram, Refill(s) 6, [facility] #[id number], 170, cm, 05/17/22 11:42:00 EDT, Height/Length Dosing, [...] hours, # 4 tab(s), Refills(s) 1, Pharmacy: [facility], 170, cm, 11/03/20 13:01:00 EST, [...] hours, # 4 tab(s), Refills(s) 1, Pharmacy: [facility], 170, cm, 11/03/20 13:01:00 EST, Height/Length Dosing, 94.7, kg, 11/03/20 13:01:00 EST, Brandon... Start Date: 11/03/20 Status: Ordered Ventolin HFA 90 mcg/inh Aerosol (4 sources) Start: 10-18-2021 take 1 puff(s) by inhalation once for wheezing Ventolin HFA 90 mcg/inh Aerosol 1 puff(s), Inhalation, Once for wheezing, 6.7 gm, Refill(s) 2, [facility] #[id number], 170, cm, 07/13/21 9:30:00 EDT, Height/Length Dosing, 88.5, kg, 07/13/21 9:30:00 EDT, Weight Dosing Start Date: 10/18/21 Status: Ordered Ventolin HFA 90 mcg/inh Aerosol-Adpt (3 sources) Start: 10-28-2022 take 2 puff(s) by inhalation every six hours for wheezing Ventolin HFA 90 mcg/inh Aerosol-Adpt 2 puff(s), Inhalation, q6hr for wheezing, 18 gram, Refill(s) 5, [facility] #[id number], 170, cm, 05/17/22 11:42:00 EDT, Height/Length Dosing, [...] Nausea/Vomiting, # 12 tab(s), Refills(s) 0, Pharmacy: [facility] #[id number], 170, cm, 05/17/22 11:42:00 EDT, Height/Length Dosing, [...] Nausea/Vomiting, # 30 tab(s), Refills(s) 1, Pharmacy: [facility] #[id number], 170, cm, 05/11/22 22:56:00 EDT, Height/Length Dosing, 89, kg, 05/11/22 22:56:00 EDT, Weight Dosing Start Date: 05/12/22 Status: Ordered Quantity: 30.0 Unit: tab(s) Repeat number: 2 Start: 05-12-2022 take 1 tablet by volodymyr th every eight hours as needed for nausea Zofran ODT 4 mg Tab-Dis 4 mg = 1 tab(s), Oral, q8hr, PRN Nausea/Vomiting, # 30 tab(s), Refills(s) 1, Pharmacy: [facility] #[id number], 170, cm, 05/11/22 22:56:00 EDT, Height/Length Dosing, 89, kg, 05/11/22 22:56:00 EDT, Weight Dosing Start Date: 05/12/22 Status: Ordered Start: 12-22-2021 take 1 tablet by volodymyr th every eight hours as needed for nausea Zofran ODT 4 mg Tab-Dis 4 mg = 1 tab(s), Oral, q8hr, PRN Nausea/Vomiting, # 12 tab(s), Refills(s) 0, Pharmacy: [facility] #[id number], 170, cm, 12/22/21 7:22:00 EST, Height/Length Dosing, 93.3, kg, 12/22/21 7:22:00 EST, Weight Dosing Start Date: 12/22/21 Status: Ordered Completed/Discontinued Medications Medication Drug Class(es) Dates Sig (Normalized) Sig (Original) ALPRAZolam 0.5 mg oral tablet (3 sources) Benzodiazepine Start: 04-30-2024 End: 09-16-2024 ALPRAZolam (Xanax) 0.5 MG tablet every 12 (twelve) hours 04/30/2024 09/16/2024 Discontinued (Other) Blood Glucose Monitoring Suppl (ReliOn True Met Air Gluc Meter) w/Device kit (18 sources) Start: 01-29-2025 End: 05-05-2025 Blood Glucose Monitoring Suppl (ReliOn True Met Air Gluc Meter) w/Device kit Indications: Gestational diabetes mellitus (GDM), antepartum, gestational diabetes method of control unspecified (HHS-HCC) , Elevated glucose tolerance test 1 kit in the morning and 1 kit at noon and 1 kit in the evening and 1 kit before bedtime. 1 kit 01/29/2025 05/05/2025 Start: 01-29-2025 End: 04-29-2025 Blood Glucose Monitoring Sup pl (ReliOn True Met Air Gluc Meter) w/Device kit Indications: Gestational diabetes mellitus (GDM), antepartum, gestational diabetes method of control unspecified (HHS-HCC) , Elevated glucose tolerance test 1 kit [...] before bedtime. 1 kit 01/29/2025 04/29/2025 Active fluconazole 150 mg oral tablet (7 sources) Azole Antifungal Start: 07-03-2022 Diflucan 150 mg Tab 150 mg = 1 tab(s), Oral, Once, Take 1 tab PO x 1 dose, may repeat in 72 hours for persistent symptoms, # 2 tab(s), Refills(s) 0, Prophylaxis, Pharmacy: [facility] #[id number], 170, cm, 05/17/22 11:42:00 EDT, Height/Length Dosing, [...] q4hr for wheezing, 1 EA, Refill(s) 11, [facility] #[id number], 170, cm, 07/13/21 9:30:00 EDT, Height/Length Dosing, [...] (9 sources) Hyperlipidemia 11-03-2020 Chronic Essential hypertension (17 sources) Hypertensive disorder; Translations: [Essential (primary) hypertension] Onset: 04-21-2025 04-21-2025 Chronic Hypertension complicating ; childbirth and the puerperium (20 sources) Hypertension complicating ; Translations: [Unspecified maternal hypertension, unspecified trimester] Onset: 01-16-2025 01-16-2025 Chronic Hypertension complicating ; childbirth and the puerperium (10 sources) -induced hypertension; Translations: [Gestational [-induced] hypertension [...] current use of drug therapy; Translations: [Other filler leaf cutter long (current) drug therapy] Onset: 03-08-2022 Episodic Other [...] [33 weeks gestation of ] 04-30-2025 Episodic Residual codes; unclassified (2 sources) Gestation period, 34 weeks; Translations: [34 weeks gestation of ] 05-05-2025 Episodic Residual codes; unclassified (2 sources) Gestation period, 35 weeks; Translations: [35 weeks gestation of ] 05-12-2025 Episodic Unclassified (9 sources) Drug therapy finding [...] Range Facility Urinalysis macro (dipstick) panel (U)on 05-12-2025 Bilirubin, UA Negative Negative - 4(70) +++ mg/dL [facility] Blood, UA Negative Negative - 50 Albin/mcL [facility] Clarity, UA Cloudy [facility] Color, UA Yellow [facility] Glucose, UA Negative Negative - 2000(110) ++++ mg/dL [facility] Interpretation and review of laboratory results Abnormal [facility] Ketones, UA Negative Negative - 160(16) ++++ mg/dL [facility] Leukocytes, UA Negative Negative - 500+++ Jack/mcL [facility] Nitrite, UA Negative Negative - Positive [facility] pH, UA 7 5 - 9 [facility] Protein, UA Trace Negative - 2000(20) ++++ mg/dL [facility] Comment on above: 30 Spec Grav, UA 1.02 1 - 1.03 [facility] Urobilinogen, UA 1.0 0.2 - 12 mg/dL [facility] US OB BPP W NON-STRESS on 05-07-2025 [place] [address] Ultrasound Report Signed Patient: JULISSA WEEMS MR#: [id number] : 1990 Acct:[id number] Age/Sex: 34 / F ADM Date: 05/07/25 Loc: US Attending Dr: Mik Borrego D.O. Ordering Physician: Mik Borrego D.O. Date of Service: 05/07/25 Procedure(s): US OB BPP w non-stress Accession Number(s): [id number] cc: Mik Borrego D.O.; Physician,Non-Staff M.D. [place] [id number] Patient Name: JULISSA WEEMS MRN: [facility]:[id number] date: 1990 Sex: F Assigned Patient Location: US Current Patient Location: Accession/Order Number: [id number] Exam Date: 05/07/2025 12:16 Report Date: 05/07/2025 12:17 At the request of: MIK BORREGO DO [...] Olivares M.D. 05/07/2025 12:17 PM Dictation Location: [place] [address] Electronically authenticated by: [id number] Y Date: 05/07/2025 12:17 Dictated By: Mariam Olivares M.D. Signed By: 05/07/25 1220 DD/ 1217 TD/TT: Counterintelligence Agent: [facility] Radiology, Radiologist, - 05/07/2025 [place] [address] Ultrasound Report Signed Patient: JULISSA WEEMS MR#: [id number] : 1990 Acct:[id number] Age/Sex: 34 / F ADM Date: 05/07/25 Loc: US Attending Dr: Mik Borrego D.O. Ordering Physician: Mik Borrego D.O. Date of Service: 05/07/25 Procedure(s): US OB BPP w non-stress Accession Number(s): [id number] cc: Mik Borrego D.O.; Physician,Non-Staff Dileep [address] [address] Patient Name: JULISSA WEEMS MRN: [facility]:[id number] date: 1990 Sex: F Assigned Patient Location: Current Patient Location: Accession/Order Number: [id number] Exam Date: 05/07/2025 12:16 Report Date: 05/07/2025 12:17 At the request of: MIK BORREGO DO [...] Olivares M.D. 05/07/2025 12:17 PM Dictation Location: [place] [address] Electronically authenticated by: [id number] Y Date: 05/07/2025 12:17 Dictated By: Mariam Olivares M.D. Signed By: 05/07/25 1220 DD/ 1217 TD/TT: Counterintelligence Agent: [facility] Radiology Study observation (narrative) [facility] OB BPP W NON-STRESS Ordered By: Radiologist Radiology on 05-07-2025 [facility] Work Phone: US OB BPP W NON-STRESS on 05-06-2025 [place] [address] Ultrasound Report Signed Patient: JULISSA WEEMS MR#: [id number] : 1990 Acct:[id number] Age/Sex: 34 / F ADM Date: 05/06/25 Loc: [facility] 250-[address]: Mik Borrego D.O. Ordering Physician: Mik Borrego D.O. Date of Service: 05/06/25 Procedure(s): US OB BPP w non-stress Accession Number(s): [id number] cc: Mik Borrego D.O.; Physician,Non-Staff Dileep [address] [address] Patient Name: JULISSA WEEMS MRN: [facility]:[id number] date: 1990 Sex: F Assigned Patient Location: [facility] Current Patient Location: [facility] Accession/Order Number: [id number] Exam Date: 05/06/2025 09:07 Report Date: 05/06/2025 09:29 At the request of: MIK BORREGO DO [...] Olivares M.D. 05/06/2025 9:29 AM Dictation Location: [place] [address] Electronically authenticated by: [id number] Y Date: 05/06/2025 09:29 Dictated By: Mariam Olivares M.D. Signed By: 05/06/2532 DD/ 8 TD/TT: Counterintelligence Agent: [facility] Radiology, Radiologist, MD - 05/06/2025 [place] [address] Ultrasound Report Signed Patient: JULISSA WEEMS MR#: [id number] : 1990 Acct:[id number] Age/Sex: 34 / F ADM Date: 05/06/25 Loc: [facility] 250-[address]: Mik Borrego D.O. Ordering Physician: Mik Borrego D.O. Date of Service: 05/06/25 Procedure(s): US OB BPP w non-stress Accession Number(s): [id number] cc: Mik Borrego D.O.; Physician,Non-Staff Dileep [facility] [place] [id number] Patient Name: JULISSA WEEMS MRN: [facility]:[id number] date: 1990 Sex: F Assigned Patient Location: [facility] Current Patient Location: [facility] Accession/Order Number: [id number] Exam Date: 05/06/2025 09:07 Report Date: 05/06/2025 09:29 At the request of: MIK BORREGO DO [...] Olivares M.D. 05/06/2025 9:29 AM Dictation Location: [place] [address] Electronically authenticated by: [id number] Y Date: 05/06/2025 09:29 Dictated By: Mariam Olivares M.D. Signed By: 05/06/25931 DD/ 8 TD/TT: Counterintelligence Agent: [facility] Radiology Study observation (narrative) [facility] US OB BPP W NON-STRESS Ordered By: Radiologist Radiology on 05-06-2025 [facility] Work Phone: Urinalysis macro (dipstick) panel (U)on 05-05-2025 Bilirubin, UA Negative Negative - 4(70) +++ mg/dL [facility] Blood, UA Negative Negative - 50 Albin/mcL [facility] Clarity, UA Clear [facility] Color, UA Yellow [facility] Glucose, UA Negative Negative - 2000(110) ++++ mg/dL [facility] Interpretation and review of laboratory results Abnormal [facility] Ketones, UA Positive Negative - 160(16) ++++ mg/dL [facility] Comment on above: 15 Leukocytes, UA Negative Negative - 500+++ Jack/mcL [facility] Nitrite, UA Negative Negative - Positive [facility] pH, UA 7 5 - 9 [facility] Protein, UA Negative Negative - 2000(20) ++++ mg/dL [facility] Spec Grav, UA 1.01 1 - 1.03 [facility] Urobilinogen, UA 0.2 0.2 - 12 mg/dL [facility] No Panel InformationOrdered By: Radiologist Radiology on 04-30-2025 [facility] Work Phone: No Panel Informationon 04-30 Radiology Study observation (narrative) [facility] US OB BPP W NON-STRESS on 04-30-[address] [address] Ultrasound Report Signed Patient: JULISSA WEEMS MR#: [id number] : 1990 Acct:[id number] Age/Sex: 34 / F ADM Date: 04/29/25 Loc: US Attending Dr: Mik Borrego D.O. Ordering Physician: Mik Borrego D.O. Date of Service: 04/29/25 Procedure(s): US OB BPP w non-stress Accession Number(s): [id number] cc: Mik Borrego D.O.; Physician,Non-Staff Dileep The [address] [address] Patient Name: JULISSA WEEMS MRN: [id number] date: 1990 Sex: F Assigned Patient Location: [facility] Current Patient Location: Accession/Order Number: [id number] Exam Date: 04/30/2025 07:02 Report Date: 04/30/2025 [...] Olivares M.D. 04/30/2025 7:10 AM Dictation Location: [place] [address] Electronically authenticated by: [id number] Y Date: 04/30/2025 07:10 Dictated By: Mariam Olivares M.D. Signed By: 04/30/2513 DD/ TD/TT: Counterintelligence Agent: [facility] Radiology, Radiologist, MD - 04/30/2025 [place] [address] Ultrasound Report Signed Patient: JULISSA WEEMS MR#: [id number] : 1990 Acct:[id number] Age/Sex: 34 / F ADM Date: 04/29/25 Loc: US Attending Dr: Mik Borrego D.O. Ordering Physician: Mik Borrego D.O. Date of Service: 04/29/25 Procedure(s): US OB BPP w non-stress Accession Number(s): [id number] cc: Mik Borrego D.O.; Physician,Non-Staff Dileep The [address] [address] Patient Name: JULISSA WEEMS MRN: [facility]:[id number] date: 1990 Sex: F Assigned Patient Location: [facility] Current Patient Location: Accession/Order Number: [id number] Exam Date: 04/30/2025 07:02 Report Date: 04/30/2025 [...] Olivares M.D. 04/30/2025 7:10 AM Dictation Location: [place] [address] Electronically authenticated by: [id number] Y Date: 04/30/2025 07:10 Dictated By: Mariam Olivares M.D. Signed By: 04/30/25 0713 DD/ 0710 TD/TT: Counterintelligence Agent: [facility] OB GROWTHon 04-30-2025 [place] [address] Ultrasound Report Signed Patient: JULISSA WEEMS MR#: [id number] : 1990 Acct:[id number] Age/Sex: 34 / F ADM Date: 04/29/25 Loc: US Attending Dr: Mik Borrego D.O. Ordering Physician: Mik Borrego D.O. Date of Service: 04/29/25 Procedure(s): US OB growth Accession Number(s): [id number] cc: Mik Borrego D.O.; Physician,Non-Staff MHermelindo [place] [id number] Patient Name: JULISSA WEEMS MRN: [id number] date: 1990 Sex: F Assigned Patient Location: Current Patient Location: Accession/Order Number: [id number] Exam Date: 04/30/2025 07:02 Report Date: 04/30/2025 [...] Olivares M.D. 04/30/2025 7:10 AM Dictation Location: [place] [address] Electronically authenticated by: [id number] Y Date: 04/30/2025 07:10 Dictated By: Mariam Olivares M.D. Signed By: 04/30/25712 DD/ TD/TT: Counterintelligence Agent: [facility] Radiology, Radiologist, MD - 04/30/2025 [place] [address] Ultrasound Report Signed Patient: JULISSA WEEMS MR#: [id number] : 1990 Acct:[id number] Age/Sex: 34 / F ADM Date: 04/29/25 Loc: US Attending Dr: Mik Borrego D.O. Ordering Physician: Mik Borrego D.O. Date of Service: 04/29/25 Procedure(s): US OB growth Accession Number(s): [id number] cc: Mik Borrego D.O.; Physician,Non-Staff Dileep The [address] [address] Patient Name: JULISSA WEEMS MRN: [facility]:[id number] date: 1990 Sex: F Assigned Patient Location: US Current Patient Location: Accession/Order Number: [id number] Exam Date: 04/30/2025 07:02 Report Date: 04/30/2025 [...] NORMAL BIOPHYSICAL PROFILE Impression dictated by: Mariam Olviares M.D. 04/30/2025 7:10 AM Dictation Location: [place] [address] Electronically authenticated by: [id number] Y Date: 04/30/2025 07:10 Dictated By: Mariam Olivares M.D. Signed By: 04/30/25 0713 DD/ 0710 TD/TT: Counterintelligence Agent: [facility] Urinalysis macro (dipstick) panel (U)on 04-30-2025 Bilirubin, UA Negative Negative - 4(70) +++ mg/dL [facility] Blood, UA Negative Negative - 50 Albin/mcL [facility] Clarity, UA Clear [facility] Color, UA Yellow [facility] Glucose, UA Negative Negative - 1999(110) ++++ mg/dL [facility] Interpretation and review of laboratory results Abnormal [facility] Ketones, UA Negative Negative - 160(16) ++++ mg/dL [facility] Leukocytes, UA Negative Negative - 500+++ Jack/mcL [facility] Nitrite, UA Negative Negative - Positive [facility] pH, UA 6 5 - 9 [facility] Protein, UA Trace Negative - 1999(20) ++++ mg/dL [facility] Spec Grav, UA 1.01 1 - 1.03 [facility] Urobilinogen, UA 1.0 0.2 - 12 mg/dL [facility] US OB BPP W NON-STRESS on 04-23-2025 [place] [address] Ultrasound Report Signed Patient: JULISSA WEEMS MR#: [id number] : 1990 Acct:[id number] Age/Sex: 34 / F ADM Date: 04/22/25 Loc: US Attending Dr: Mik Borrego D.O. Ordering Physician: Mik Borrego D.O. Date of Service: 04/22/25 Procedure(s): US OB BPP w non-stress Accession Number(s): [id number] cc: Mik Borrego D.O.; Physician,Non-Staff M.DNikos [address] [address] Patient Name: JULISSA WEEMS MRN: [id number] date: 1990 Sex: F Assigned Patient Location: Current Patient Location: Accession/Order Number: [id number] Exam Date: 04/23/2025 08:01 Report Date: 04/23/2025 [...] Olivares M.D. 04/23/2025 8:03 AM Dictation Location: [place] [address] Electronically authenticated by: [id number] Y Date: 04/23/2025 08:03 Dictated By: Mariam Olivares M.D. Signed By: 04/23/25 0946 DD/ 0803 TD/TT: Counterintelligence Agent: [facility] Radiology, Radiologist, - 04/23/2025 [place] [address] Ultrasound Report Signed Patient: JULISSA WEEMS MR#: [id number] : 1990 Acct:[id number] Age/Sex: 34 / F ADM Date: 04/22/25 Loc: US Attending Dr: Mik Borrego D.O. Ordering Physician: Mik Borrego D.O. Date of Service: 04/22/25 Procedure(s): US OB BPP w non-stress Accession Number(s): [id number] cc: Mik Borrego D.O.; Physician,Non-Staff [place] [address] Patient Name: JULISSA WEEMS MRN: [facility]:[id number] date: 1990 Sex: F Assigned Patient Location: Current Patient Location: Accession/Order Number: [id number] Exam Date: 04/23/2025 08:01 Report Date: 04/23/2025 [...] is in normal range. Total score: 8/8 US/ OB BPP w non-stress IMPRESSION: NORMAL BIOPHYSICAL PROFILE POTENTIAL NUCHAL CORD. Impression dictated by: Mariam Olivares M.D. 04/23/2025 8:03 AM Dictation Location: [place] [address] Electronically authenticated by: [id number] Y Date: 04/23/2025 08:03 Dictated By: Mariam Olivares M.D. Signed By: 04/23/25 0946 DD/ 0803 TD/TT: Counterintelligence Agent: [facility] Radiology Study observation (narrative) [facility] OB BPP W NON-STRESS Ordered By: Radiologist Radiology on 04-23-2025 [facility] Work Phone: Urinalysis macro (dipstick) panel (U)on 04-21-2025 Bilirubin, UA Negative Negative - 4(70) +++ mg/dL [facility] Blood, UA Negative Negative - 50 Albin/mcL [facility] Clarity, UA Clear [facility] Color, UA Yellow [facility] Glucose, UA Negative Negative - 1999(110) ++++ mg/dL [facility] Interpretation and review of laboratory results Normal [facility] Ketones, UA Positive Negative - 160(16) ++++ mg/dL [facility] Leukocytes, UA Negative Negative - 500+++ Jack/mcL [facility] Nitrite, UA Negative Negative - Positive [facility] pH, UA 7 5 - 9 [facility] Protein, UA Negative Negative - 1999(20) ++++ mg/dL [facility] Spec Grav, UA 1.015 1 - 1.03 [facility] Urobilinogen, UA 0.2 0.2 - 12 mg/dL [facility] Urinalysis macro (dipstick) panel (U)on 04-14-2025 Bilirubin, UA Negative Negative - 4(70) +++ mg/dL [facility] Blood, UA Negative Negative - 50 Albin/mcL [facility] Clarity, UA Clear [facility] Color, UA Yellow [facility] Glucose, UA Negative Negative - 1999(110) ++++ mg/dL [facility] Interpretation and review of laboratory results Abnormal [facility] Ketones, UA Negative Negative - 160(16) ++++ mg/dL [facility] Leukocytes, UA Negative Negative - 500+++ Jack/mcL [facility] Nitrite, UA Negative Negative - Positive [facility] pH, UA 6.5 5 - 9 [facility] Protein, UA Negative Negative - 1999(20) ++++ mg/dL [facility] Spec Grav, UA 1.005 1 - 1.03 [facility] Urobilinogen, UA 1.0 0.2 - 12 mg/dL [facility] Urinalysis macro (dipstick) panel (U)on 04-08-2025 Bilirubin, UA Negative Negative - 4(70) +++ mg/dL [facility] Blood, UA Negative Negative - 50 Albin/mcL [facility] Clarity, UA Clear [facility] Color, UA Yellow [facility] Glucose, UA Negative Negative - 1999(110) ++++ mg/dL [facility] Interpretation and review of laboratory results Abnormal [facility] Ketones, UA Positive Negative - 160(16) ++++ mg/dL [facility] Comment on above: 40 Leukocytes, UA Trace Negative - 500+++ Jack/mcL [facility] Nitrite, UA Negative Negative - Positive [facility] pH, UA 7 5 - 9 [facility] Protein, UA Positive Negative - 1999(20) ++++ mg/dL [facility] Comment on above: 30 Spec Grav, UA 1.015 1 - 1.03 [facility] Urobilinogen, UA 0.2 0.2 - 12 mg/dL [facility] Urinalysis macro (dipstick) panel (U)on 03-24-2025 Bilirubin, UA Negative Negative - 4(70) +++ mg/dL [facility] Blood, UA Negative Negative - 50 Albin/mcL [facility] Clarity, UA Clear [facility] Color, UA Yellow [facility] Glucose, UA Negative Negative - 1999(110) ++++ mg/dL [facility] Interpretation and review of laboratory results Normal [facility] Ketones, UA Negative Negative - 160(16) ++++ mg/dL [facility] Leukocytes, UA Negative Negative - 500+++ Jack/mcL [facility] Nitrite, UA Negative Negative - Positive [facility] pH, UA 7 5 - 9 [facility] Protein, UA Negative Negative - 1999(20) ++++ mg/dL [facility] Spec Grav, UA 1.01 1 - 1.03 [facility] Urobilinogen, UA 0.2 0.2 - 12 mg/dL [facility] Urinalysis macro (dipstick) panel (U)on 02-24-2025 Bilirubin, UA Negative Negative - 4(70) +++ mg/dL [facility] Blood, UA Negative Negative - 50 Albin/mcL [facility] Clarity, UA Clear [facility] Color, UA Yellow [facility] Glucose, UA Negative Negative - 1999(110) ++++ mg/dL [facility] Interpretation and review of laboratory results Normal [facility] Ketones, UA Negative Negative - 160(16) ++++ mg/dL [facility] Leukocytes, UA Negative Negative - 500+++ Jack/mcL [facility] Nitrite, UA Negative Negative - Positive [facility] pH, UA 6.5 5 - 9 [facility] Protein, UA Negative Negative - 1999(20) ++++ mg/dL [facility] Spec Grav, UA 1.025 1 - 1.03 [facility] Urobilinogen, UA 1.0 0.2 - 12 mg/dL [facility] CHEMISTRYOrdered By: Hien Khan on 02-04-2025 Hrs Francisco 24 1 Invalid Interpretation Code [facility] Chem S U24 ProteinOrdered By: RAFAEL MOORE on 02-04-2025 U24 Total Protein 224 mg/24hr High 28-141 [facility] Comment on above: Performed By: #### 1 [id number] #### [facility] [address] [place] [address] Ur Total Protein 8.8 mg/dL Invalid Interpretation Code [facility] Comment on above: Performed By: #### 1 [id number] #### [facility] [address] [place] [address] U24 Total Volon 02-04-2025 Hrs Francisco 24 Invalid Interpretation Code [facility] Comment on above: Order Comment: Order added by Discern Expert Performed By: #### 2 [id number] #### [facility] [address] [place] [address] U24 Total VolOrdered By: Col loyda Khan on 02-04-2025 Total Volume 2550 mL Invalid Interpretation Code [facility] Chem S Comment on above: Order Comment: Order added by Discern Expert Performed By: #### 2 [id number] #### [facility] [address] [place] [address] BNPon 01-27-2025 Int Ctr BNP Pass Normal [facility] Comment on above: Performed By: #### 1 [id number] #### [facility] [address] [place] [address] Natriuretic peptide B (Bld) [Mass/Vol] pg/mL Low 5-80 [facility] Comment on above: Performed By: #### 1 [id number] #### [facility] [address] [place] [address] CBC w/ Auto Diffon 5 Basophils/100 WBC (Bld) 0.3 % Normal 0.0-2.0 [facility] Comment on above: Performed By: #### 2 [id number] #### [facility] [address] [place] [address] Basophils/Leukocytes Auto (Bld) [Pure # fraction] 0.0 E9/L Normal 0.0-0.2 [facility] Comment on above: Performed By: #### 2 [id number] #### [facility] [address] [place] [address] Eosinophils (Bld) [#/Vol] 0.1 E9/L Normal 0.0-0.5 [facility] Comment on above: Performed By: #### 2 [id number] #### [facility] [address] [place] [address] Eosinophils/100 WBC (Bld) 0.9 % Normal 0.0-8.0 [facility] Comment on above: Performed By: #### 2 [id number] #### [facility] [address] [place] [address] Erythrocyte distribution width (RBC) [Ratio] 13.5 % Normal 10.9-14.2 [facility] Comment on above: Performed By: #### 2 [id number] #### [facility] [address] [place] [address] Hematocrit (Bld) [Volume fraction] 39.2 % Normal 34.0-46.0 [facility] Comment on above: Performed By: #### 2 [id number] #### [facility] [address] [place] [address] Hemoglobin (Bld) [Mass/Vol] 13.2 g/dL Normal 12.0-16.0 [facility] Comment on above: Performed By: #### 2 [id number] #### [facility] [address] [place] [address] Lymphocytes (Bld) [#/Vol] 2.1 E9/L Normal 1.0-4.0 [facility] Comment on above: Performed By: #### 2 [id number] #### [facility] [address] [place] [address] Lymphocytes/100 WBC (Bld) 14.3 % Normal 14.0-50.0 [facility] Comment on above: Performed By: #### 2 [id number] #### [facility] [address] [place] [address] MCH (RBC) [Entitic mass] 29.0 pg Normal 27.0-34.0 [facility] Comment on above: Performed By: #### 2 [id number] #### [facility] [address] [place] [address] MCHC (RBC) [Mass/Vol] 33.7 g/dL Normal 31.4-36.0 [facility] Comment on above: Performed By: #### 2 [id number] #### [facility] [address] [place] [address] MCV (RBC) [Entitic vol] 86.2 fL Normal 80.0-100.0 [facility] Comment on above: Performed By: #### 2 [id number] #### [facility] [address] [place] [address] Monocytes (Bld) [#/Vol] 0.6 E9/L Normal 0.2-1.0 [facility] Comment on above: Performed By: #### 2 [id number] #### [facility] [address] [place] [address] Neutrophils (Bld) [#/Vol] 11.8 E9/L High 2.0-7.5 [facility] Comment on above: Performed By: #### 2 [id number] #### [facility] [address] [place] [address] Neutrophils/100 WBC (Bld) 80.6 % High 36.0-75.0 [facility] Comment on above: Performed By: #### 2 [id number] #### [facility] [address] [place] [address] Platelet 302.0 E9/L Normal 150.0-500.0 [facility] Comment on above: Performed By: #### 2 [id number] #### [facility] [address] [place] [address] Platelet mean volume (Bld) [Entitic vol] 9.4 fL Normal 6.4-10.8 [facility] Comment on above: Performed By: #### 2 [id number] #### [facility] [address] [place] [address] RBC (Bld) [#/Vol] 4.6 E12/L Normal 4.3-5.9 [facility] Comment on above: Performed By: #### 2 [id number] #### [facility] [address] [place] [address] WBC corrected for nucl RBC Auto (Bld) [#/Vol] 14.6 E9/L High 4.0-11.0 [facility] Comment on above: Performed By: #### 2 [id number] #### [facility] [address] [place] [address] CHEMISTRYOrdered By: SYSTEM SYSTEM on 01-27-2025 Albumin [...] [Mass/Vol] pg/mL Low 5 - 80 pg/mL [facility] 01-27-2025 Albumin [Mass/Vol] 3.9 g/dL Normal 3.3-5.0 [facility] Comment on above: Performed By: #### 2 [id number] #### [facility] [address] [place] [address] Albumin/Globulin (S) [Mass conc ratio] 1.2 Normal 1.1-2.2 [facility] Comment on above: Performed By: #### 2 [id number] #### [facility] [address] [place] [address] ALP [Catalytic activity/Vol] 46 Int._Unit/L Normal 21-98 [facility] Comment on above: Performed By: #### 2 [id number] #### [facility] [address] [place] [address] ALT No additional P-5'-P [Catalytic activity/Vol] 18 Int._Unit/L Normal 6-46 [facility] Comment on above: Performed By: #### 2 [id number] #### [facility] [address] [place] [address] Anion gap [Moles/Vol] 12 mmol/L Normal 6-16 [facility] Comment on above: Performed By: #### 2 [id number] #### [facility] [address] [place] [address] AST [Catalytic activity/Vol] 19 Int._Unit/L Normal 5-43 [facility] Comment on above: Performed By: #### 2 [id number] #### [facility] [address] [place] [address] Bilirubin [Mass/Vol] 0.4 mg/dL Normal 0.0-1.1 [facility] Comment on above: Performed By: #### 2 [id number] #### [facility] [address] [place] [address] Calcium [Mass/Vol] 9.5 mg/dL Normal 8.9-11.1 [facility] Comment on above: Performed By: #### 2 [id number] #### [facility] [address] [place] [address] Chloride [Moles/Vol] 104 mmol/L Normal 101-111 [facility] Comment on above: Performed By: #### 2 778802 #### [facility] [address] [place] [address] CO2 [Moles/Vol] 22 mmol/L Normal 21-31 [facility] Comment on above: Performed By: #### 2 [id number] #### [facility] [address] [place] [address] Creatinine [Mass/Vol] 0.5 mg/dL Normal 0.5-1.3 [facility] Comment on above: Performed By: #### 2 [id number] #### [facility] [address] [place] [address] Globulin (S) [Mass/Vol] 3.2 g/dL Normal 1.4-4.0 [facility] Comment on above: Performed By: #### 2 [id number] #### [facility] [address] [place] [address] Glucose [Mass/Vol] 131 mg/dL Normal 55-199 [facility] Comment on above: Performed By: #### 2 [id number] #### [facility] [address] [place] [address] Potassium [Moles/Vol] 3.4 mmol/L Low 3.5-5.3 [facility] Comment on above: Performed By: #### 2 [id number] #### [facility] [address] [place] [address] Protein [Mass/Vol] 7.1 g/dL Normal 6.0-7.8 [facility] Comment on above: Performed By: #### 2 719179 #### [facility] [address] [place] [address] Sodium [Moles/Vol] 135 mmol/L Normal 135-145 [facility] Comment on above: Performed By: #### 2 [id number] #### [facility] [address] [place] [address] Urea nitrogen [Mass/Vol] 9 mg/dL Normal 5-21 [facility] Comment on above: Performed By: #### 2 [id number] #### [facility] [address] [place] [address] Urea nitrogen/Creatinine [Mass ratio] 18 No Units Normal 10-20 [facility] Comment on above: Performed By: #### 2 [id number] #### [facility] [address] [place] [address] HEMATOLOGYOrdered By: SYSTEM SYSTEM on 01-27-2025 Basophils/100 [...] 4.0 - 11.0 E9/L [facility] Heme LDHon 04-07-2025 LDH 158 Int._Unit/L Normal 93-218 [facility] Comment on above: Performed By: #### 2 [id number] #### [facility] [address] [place] [address] Uric Acidon 01-27-2025 Urate [Mass/Vol] 4.6 mg/dL Normal 2.2-7.4 [facility] Comment on above: Performed By: #### 2 [id number] #### [facility] [address] [place] [address] Urinalysis macro (dipstick) panel (U)on 01-27-2025 Bilirubin, UA Negative Negative - 4(70) +++ mg/dL [facility] Blood, UA Negative Negative - 50 Albin/mcL [facility] Clarity, UA Clear [facility] Color, UA Yellow [facility] Glucose, UA Negative Negative - 2000(110) ++++ mg/dL [facility] Interpretation and review of laboratory results Normal [facility] Ketones, UA Negative Negative - 160(16) ++++ mg/dL [facility] Leukocytes, UA Negative Negative - 500+++ Jack/mcL [facility] Nitrite, UA Negative Negative - Positive [facility] pH, UA 6 5 - 9 [facility] Protein, UA Negative Negative - 2000(20) ++++ mg/dL [facility] Spec Grav, UA 1.005 1 - 1.03 [facility] Urobilinogen, UA 0.2 0.2 - 12 mg/dL [facility] eGFRon 01-27-2025 eGFR 124 mL/min/1.73 m2 Normal >=59 [facility] Comment on above: Performed By: #### 1 [id number] #### [facility] [address] [place] [address] GLUCOSE TOLERANCE 3 HOURon 0 01-20-2025 GLUCOSE TOLERANCE 3 HOUR High mg/dL [facility] Comment on above: GLU FAST 92 (<95) Co l: 01/20/25 0948 GLU 1HR 205H (<180) Col: 01/20/25 1050 GLU 2HR 220H (<155) Col: 01/20/25 1150 GLU 3HR 107 (<140) Col: 01/20/25 1250 Interpretation and review of laboratory results Abnormal [facility] Glucose 1h post 50g loadon 0 12-30-2024 Glucose, 1Hr PP 163 [facility] RECURRENT VAGINITIS (HTRX)on 12-25-2024 ATOPOBIUM VAGINAE 0 [facility] ATOPOBIUM VAGINAE Not detected [facility] BVAB 2,3 (BACTERIAL VAGINOSIS ASSOCIATED BACTERIA 2, 3); MOBILUNCUS SPP 0 [facility] BVAB 2,3 (BACTERIAL VAGINOSIS ASSOCIATED BACTERIA 2, 3); MOBILUNCUS SPP Not detected [facility] KACEY ALBICANS, PARAPSILOSIS, TROPICALIS 0 [facility] KACEY ALBICANS, PARAPSILOSIS, TROPICALIS Not detected [facility] KACEY GLABRATA 0 [facility] KACEY GLABRATA Not detected [facility] KACEY KRUSEI 0 [facility] KACEY KRUSEI Not detected [facility] CHLAMYDIA TRACHOMATIS 0 [facility] CHLAMYDIA TRACHOMATIS Not detected N [facility] GARDNERELLA VAGINALIS 0 [facility] GARDNERELLA VAGINALIS Not detected N [facility] MEGASPHAERA (TYPES 1, 2) 0 [facility] MEGASPHAERA (TYPES 1, 2) Not detected [facility] MYCOPLASMA GENITALIUM 0 [facility] MYCOPLASMA GENITALIUM Not detected N [facility] NEISSERIA GONORRHOEAE 0 [facility] NEISSERIA GONORRHOEAE Not detected N [facility] TRICHOMONAS VAGINALIS 0 [facility] TRICHOMONAS VAGINALIS Not detected N [facility] Urinalysis macro (dipstick) panel (U)on 12-23-2024 Bilirubin, UA Negative Negative - 4(70) +++ mg/dL [facility] Blood, UA Negative Negative - 50 Albin/mcL [facility] Clarity, UA Clear [facility] Color, UA Yellow [facility] Glucose, UA Negative Negative - 1999(110) ++++ mg/dL [facility] Interpretation and review of laboratory results Abnormal [facility] Ketones, UA Positive Negative - 160(16) ++++ mg/dL [facility] Comment on above: 40mg/dL Leukocytes, UA Negative Negative - 500+++ Jack/mcL [facility] Nitrite, UA Negative Negative - Positive [facility] pH, UA 5.5 5 - 9 [facility] Protein, UA Negative Negative - 1999(20) ++++ mg/dL [facility] Spec Grav, UA 1.025 1 - 1.03 [facility] Urobilinogen, UA 0.2 0.2 - 12 mg/dL [facility] Urinalysis macro (dipstick) panel (U)on 11-25-2024 Bilirubin, UA Positive Negative - 4(70) +++ mg/dL [facility] Blood, UA Negative Negative - 50 Albin/mcL [facility] Clarity, UA Clear [facility] Color, UA Yellow [facility] Glucose, UA Negative Negative - 2000(110) ++++ mg/dL [facility] Interpretation and review of laboratory results Abnormal [facility] Ketones, UA Positive Negative - 160(16) ++++ mg/dL [facility] Leukocytes, UA Negative Negative - 500+++ Jack/mcL [facility] Nitrite, UA Negative Negative - Positive [facility] pH, UA 6 5 - 9 [facility] Protein, UA Positive Negative - 2000(20) ++++ mg/dL [facility] Spec Grav, UA 1.025 1 - 1.03 [facility] Urobilinogen, UA 0.2 0.2 - 12 mg/dL [facility] HIV 1&2 AB/AG Screen (P24 AG )on 11-11-2024 HIV 1&2 AB/AG Non-Reactive [facility] Hepatitis C(HCV) Ab w/ Refle x to PCRon 11-11-2024 HCV Ab Ql (S) Non-Reactive [facility] No Panel Informationon 11-11 [facility] Rubella IGG immune statuson 11-11-2024 Rubella immune IgG 1.78 [facility] ALL CBC WITH AUTO DIFFon BASOPHILS ABSOLUTE AUTO 0.1 [facility] Basophils/100 WBC (Bld) 0.5 % 0.2 - 2.0 % [facility] [facility] Eosinophils/100 WBC (Bld) 1 % 0.9 - 7.0 % [facility] Erythrocyte distribution width (RBC) [Ratio] 12.4 % 11.0 - 15.0 % [facility] IMMATURE GRANULOCYTES ABS AUTO 0.06 High [facility] Immature granulocytes/100 WBC (Bld) 0.5 % 0.0 - 0.5 % [facility] Interpretation and review of laboratory results Abnormal [facility] LYMPHOCYTES ABSOLUTE AUTO 3 [facility] Lymphocytes/100 WBC (Bld) 24.2 % 20.5 - 60.0 % [facility] MCH (RBC) [Entitic mass] 29.2 pg 26.7 - 34.0 pg [facility] MCHC (RBC) [Mass/Vol] 33.5 g/dL 29.9 - 35.2 g/dL [facility] MCV (RBC) [Entitic vol] 87.1 fL 81.0 - 99.0 fL [facility] MONOCYTES ABSOLUTE AUTO 0.8 [facility] Monocytes/100 WBC (Bld) 6.4 % 1.7 - 12.0 % [facility] NEUTROPHILS ABSOLUTE AUTO 8.5 High [facility] Neutrophils/100 WBC (Bld) 67.4 % 43.0 - 75.0 % [facility] Platelet mean volume (Bld) [Entitic vol] 10.1 fL 9.5 - 13.5 fL [facility] TBH EO # 0.1 [facility] TBH PLT 357 [facility] TB RBC 4.8 [facility] TB WBC 12.6 High [facility] CLINISYNC CBC without diffOrdered By: Lindsey Ramos on 11-08-2024 Platelets (Bld) [#/Vol] 357 10*3/uL [facility] Rbc Mcv (Fl) By Automated Count 87.1 [facility] Drug Screen, Urineon 025 Amphetamine/Methamphet amine Negative [facility] Barbiturates Negative [facility] Benzodiazepines Negative [facility] Cocaine Metabolite Negative [facility] Opiates Negative [facility] Oxycodone Negative [facility] Phencyclidine Negative [facility] Thc Marijuana, Urine Negative [facility] Hemoglobin A1con 11-08-2024 HbA1c (Bld) [Mass fraction] 5.8 % 4.0 - 6.0 % [facility] Hepatitis B surface antigeno n 11-08-2024 Hepatitis B Surface Antigen Negative [facility] Laboratory - Hematology and Cell countson 11-08-2024 Hematocrit (Bld) [Volume fraction] 41.8 % [facility] Hemoglobin (Bld) [Mass/Vol] 14 g/dL [facility] No Panel Informationon 11-08 [facility] Healthcare Type and screenon 11-08-2024 Abo/Rh(D) Positive [facility] Rh_Intep Negative [facility] HCG ( test) Ql (U)o n 10-24-2024 Interpretation and review of laboratory results Abnormal [facility] Preg Test, Ur Positive Negative [facility] OB TRANSVAGINALon 025 US OB TRANSVAGINAL TITLE [...] x 2.5 cm (6 weeks, 5 days). Inger rump length is 0.9 cm (7 weeks, [...] UA Negative Negative - 4(70) +++ mg/dL [facility] Blood, UA Negative Negative - 50 Albin/mcL [facility] Clarity, UA Clear [facility] Color, UA Yellow [facility] Glucose, UA Negative Negative - 1999(110) ++++ mg/dL [facility] Interpretation and review of laboratory results Normal [facility] Ketones, UA Negative Negative - 160(16) ++++ mg/dL [facility] Leukocytes, UA Negative Negative - 500+++ Jack/mcL [facility] Nitrite, UA Negative Negative - Positive [facility] pH, UA 6 5 - 9 [facility] Protein, UA Negative Negative - 1999(20) ++++ mg/dL [facility] Spec Grav, UA 1.015 1 - 1.03 [facility] Urobilinogen, UA 0.2 0.2 - 12 mg/dL [facility] IGP,APTIMA HPV,AGE GDLNon AGE GDLN ACOG TESTING Note . [facility] Comment on above: TESTS RESULT FLAG UN ITS REF RANGE LAB Clinician Provided Cytology Information Source.............Cervix No. of containers..01 ThinPrep Vial Age Algo ACOG Yumiko... 30-65 01 FLAG LEGEND: L-Low Normal,H-High Normal,LL-Alert Low,HH-Alert High <-Panic Low,>-Panic High,A-Abnormal,AA-Critical Abnormal Performed at: 01 =G [facility] [id number] Nina Julien MD, HPV APTIMA Negative Negative [facility] Comment on above: This nucleic acid am plification test detects fourteen high- risk HPV types (16,18,31,33,35,39,45,51,52,56,58,59,66,68) without differentiation. Performed at: =G - [facility] [id number] Structural Draftsman: Nina Julien MD, Phone: [phone] Performed at: - [facility] [id number] Structural Draftsman: Nina Julien MD, Phone: [phone] IGP, APTIMA HPV, RFX 16/18,45 Note . [facility] Comment on above: TESTS RESULT FLAG UN ITS REF RANGE LAB DIAGNOSIS: 02 NEGATIVE FOR INTRAEPITHELIAL LESION OR MALIGNANCY. THIS SPECIMEN WAS RESCREENED PART OF OUR INCINERATOR PLANT SUPERVISOR PROGRAM. Specimen adequacy: 02 Satisfactory for evaluation. Endocervical and/or squamous metaplastic cells (endocervical component) are present. Performed by: Fazal Collins, Benefits Officer (ASC) QC reviewed by: Fazal Coyne, Benefits Officer (ASCP) . 02 Note: Note 02 The [...] Low,>-Panic High,A-Abnormal,AA-Critical Abnormal Performed at: [address] [facility] [id number] Nina Julien MD, SWAB-SPATULA CERVIX [facility] BLOOD BANKOrdered By: Jacob guzman on 05-12-2022 ABO/Rh Interp Positive Invalid Interpretation Code [facility] BB Subsection ABSC Gel Interp Negative (05/12/22 5:12 AM) Normal [facility] BB Subsection SEROLOGYOrdered By: Riya kenney on 05-12-2022 HCG.beta subunit (U) [Moles/Vol] Negative Normal [facility] Man Sero URINALYSISOrdered By: Riya Quarles on [...] AM) Normal Negative [facility] UA Auto SS [place].plasma/[place] .RBC (Bld) [Mass ratio] 0-3 /HPF Normal [...] [facility] UA Auto SS Urobilinogen Qn (U) 0.4835216 {Lazaro'U}/dL Normal 0.0 - 1.0 EU/dL [facility] [...] AM) Normal Negative [facility] UA Auto SS [place].plasma/[place] .RBC (Bld) [Mass ratio] 0-3 /HPF Normal 0-3/HPF [facility] UA Auto SS Nitrite Ql (U) Negative (05/12/22 9:58 AM) Normal Negative [facility] UA Auto SS pH (U) 6.0 *NA* (05/12/22 9:58 AM) Invalid Interpretation Code 5.0 - 9.0 [facility] UA Auto SS Protein (U) [Mass/Vol] Negative (05/12/22 9:58 AM) Normal Negative [facility] UA Auto SS Specific gravity (U) [Rel density] 1.020 *NA* (05/12/22 9:58 AM) Invalid Interpretation Code 1.005 - 1.030 [facility] UA Auto SS UA Spec Desc Clean Catch (05/12/22 9:58 AM) Normal [facility] UA Auto SS Urobilinogen Qn (U) 0.1763285 {Lazaro'U}/dL Normal 0.0 - 1.0 EU/dL [facility] UA Auto SS WBC Auto Ql (U) Negative (05/12/22 9:58 AM) Normal Negative [facility] UA Auto SS WBC LM.HPF (Urine sed) [#/Area] 0-5 /HPF Normal 0-5/HPF [facility] UA Auto SS BLOOD BANKOrdered By: Hillary Coppola on 05-11-2022 ABO/Rh Retype Interp Positive Invalid Interpretation Code [facility] BB Subsection CHEMISTRYOrdered By: SYSTEM SYSTEM on 05-11-2022 Albumin [Mass/Vol] 4.6 g/dL Normal 3.3 - 5.0 gm/dL [facility] Remisol Albumin/Globulin [Mass ratio] 1.6 {ratio} Normal [...] 5.2 E12/L Normal 4.3 - 5.9 E12/L [facility] HemeAutoSS WBC corrected for nucl RBC Auto (Bld) [#/Vol] 19.3 E9/L High 4.0 - 11.0 E9/L [facility] HemeAutoSS Comment on above: Result Comment: Celeste gupta reviewed by MM. Coding Summaryon 05-26-2020 Coding Summary CODING DATE: 05/26/2020 [facility] STATUS: Home PAYOR: Commercial Insurance ADMIT DX: [...] Essie Beyer Date Saved: 05/26/2020 10:38 am [facility] ED Note-Nursingon 05-26-2020 ED Note-Nursing Pt calls and gives verbal permission to copy lab result and mail to her home. 2 identifiers given. [facility] Consent Formson 05-25-2020 Consent Forms [id number] [facility] .QC Respiratory Panel 2.1 (B ioFire)on 05-23-2020 Internal Control-Resp Panel 2.1(BioFire) Pass [facility] Comment on above: Order Comment: Order ed by Discern. [[id number]] Performed By: #### 6 [id number], [id number] #### [facility] (DEFAULT) [address] [place] [address] ED Clinical Summaryon 2019 ED Clinical Summary [facility] ? Urgent Care [address] [place], [place] [id number] Clinical Summary PERSON INFORMATION Name: JULISSA WEEMS Age: 29 Years Sex: FEMALE : 1990 MRN: Acct#: Visit Reason: FEVER, SOB, COUGH Arrival: 05/23/2020 13:31:24 Discharge: 05/23/2020 14:23:00 LOS: 000 00:52 Check In: 05/23/2020 13:31:24 Checkout: 05/23/2020 14:23:00 Address: [address] [place] [place] [id number] PCP: Provider, None PROVIDER INFORMATION Provider Role [...] EDUCATION INFORMATION Instructions: Upper Respiratory Infection, Adult, Sczl-zy-Tald Follow-Up: With: Address: When: Jaime Esquivel [facility], [address] [place] [id number] Business (1) Comments: Please follow-up with your primary care doctor or Dr. Esquivel, medical doctor hall monitor, their office schedule an appointment to be [...] verbalizes understanding of instructions given Comment: Normal [facility] ED Patient Summaryon 020 ED Patient Summary [facility] ? Urgent Care [address] [place], [place] [id number] PATIENT DISCHARGE INSTRUCTIONS Patient Information Name: JULISSA WEEMS Age: 29 Years Date of : 1990 Reason For Visit: FEVER, SOB, COUGH Arrival Time: 05/23/2020 13:31:24 Primary Care Physician: Provider, None Attending Physician: Heath Argueta PA-C Comment: Patient Education With: Address: When: Jaime Esquivel [facility], [address] [place] [address] Business (1) Comments: Please follow-up with your primary care doctor or Dr. Esquivel, medical doctor hall monitor, their office schedule an appointment to be [...] other clear broths. General instructions ? Take dsce-rrs-uzxsedi and prescription medicines only as told by [...] not have soap and water, use hand superintendent pressure. ? Avoid touching your mouth, face, eyes, [...] get better within 7?10 days. ? Take jlvb-jwl-ehdqnei and prescription medicines only as told by your doctor. This information is not intended to replace advice given to you by your health care provider. Make sure you discuss any questions you have with your health care provider. Document Released: 03/27/2009 Document Revised: 06/01/2018 Document Reviewed: 06/01/2018 [employer] Interactive Patient Education ? 2019 [employer] Medication Information: The exam and treatment you received today in the [facility] Emergency Department were for an urgent problem and are not intended as complete care. It is important for you to follow up with a doctor, nurse practitioner, or physician?s certified physician's assistant for ongoing care. If your symptoms [...] so we can reach you if necessary. [facility] Emergency Department has provided you with a complete list of medications post discharge. 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 Any specific questions regarding your chronic medications and dosages should be discussed with your primary care physician(s) and/or pharmacist. New Medications [id number], [address] [place], [place] [id number], [phone] homatropine-HYDROcod one (homatropine-hydroco done 1.5 mg-5 mg/5 [...] for Disease Control and Prevention June 2014 [facility] Patient Handouton 05-23-2020 Patient Handout Patient [...] other clear broths. General instructions ? Take bhft-iyp-cpnexny and prescription medicines only as told by [...] not have soap and water, use hand superintendent pressure. ? Avoid touching your mouth, face, eyes, [...] get better within 7?10 days. ? Take cijw-voh-zbqurxo and prescription medicines only as told by your doctor. This information is not intended to replace advice given to you by your health care provider. Make sure you discuss any questions you have with your health care provider. Document Released: 03/27/2009 Document Revised: 06/01/2018 Document Reviewed: 06/01/2018 [employer] Interactive Patient Education ? 2019 [employer] Normal [facility] Respiratory Panel 2.1 (BioFi re)on 05-23-2020 Adenovirus -BioFire Not Detected Normal Not Detected [facility] Comment on above: Performed By: #### 6 [id number], [id number] #### [facility] (DEFAULT) [address] [place] [address] Bordetella parapertussis -BioFire Not Detected Normal Not Detected [facility] Comment on above: Performed By: #### 6 [id number], [id number] #### [facility] (DEFAULT) [address] [place] [address] Bordetella pertussis -BioFire Not Detected Normal Not Detected [facility] Comment on above: Performed By: #### 6 [id number], [id number] #### [facility] (DEFAULT) [address] [place] [address] Chlamydia pneumoniae -BioFire Not Detected Normal Not Detected [facility] Comment on above: Performed By: #### 6 [id number], [id number] #### [facility] (DEFAULT) [address] [place] [address] Coronavirus 229E (Not COVID-19) -BioFire Not Detected Normal Not Detected [facility] Comment on above: Performed By: #### 6 [id number], [id number] #### [facility] (DEFAULT) [address] [place] [address] Coronavirus HKU1 (Not COVID-19) -BioFire Not Detected Normal Not Detected [facility] Comment on above: Performed By: #### 6 [id number], [id number] #### [facility] (DEFAULT) [address] [place] [address] Coronavirus NL63 (Not COVID-19) -BioFire Not Detected Normal Not Detected [facility] Comment on above: Performed By: #### 6 [id number], [id number] #### [facility] (DEFAULT) [address] [place] [address] Coronavirus OC43 (Not COVID-19) -BioFire Not Detected Normal Not Detected [facility] Comment on above: Performed By: #### 6 [id number], [id number] #### [facility] (DEFAULT) [address] [place] [address] Human Metapneumovirus -BioFire Not Detected Normal Not Detected [facility] Comment on above: Performed By: #### 6 [id number], [id number] #### [facility] (DEFAULT) [address] [place] [address] Human Rhinovirus/Enterovirus -BioFire Detected Abnormal Not Detected [facility] Comment on above: Performed By: #### 6 [id number], [id number] #### [facility] (DEFAULT) [address] [place] [address] Influenza A (no subtype) -BioFire Not Detected Normal Not Detected [facility] Comment on above: Performed By: #### 6 [id number], [id number] #### [facility] (DEFAULT) [address] [place] [address] Influenza A -BioFire Not Detected Normal Not Detected [facility] Comment on above: Performed By: #### 6 [id number], [id number] #### [facility] (DEFAULT) [address] [place] [address] Influenza A H1 -BioFire Not Detected Normal Not Detected [facility] Comment on above: Performed By: #### 6 [id number], [id number] #### [facility] (DEFAULT) [address] [place] [address] Influenza A H1-2009 -BioFire Not Detected Normal Not Detected [facility] Comment on above: Performed By: #### 6 [id number], [id number] #### [facility] (DEFAULT) [address] [place] [address] Influenza A H3 -BioFire Not Detected Normal Not Detected [facility] Comment on above: Performed By: #### 6 [id number], [id number] #### [facility] (DEFAULT) [address] [place] [address] Influenza B -BioFire Not Detected Normal Not Detected [facility] Comment on above: Performed By: #### 6 [id number], [id number] #### [facility] (DEFAULT) [address] [place] [address] Mycoplasma pneumoniae -BioFire Not Detected Normal Not Detected [facility] Comment on above: Performed By: #### 6 [id number], [id number] #### [facility] (DEFAULT) [address] [place] [address] Parainfluenza Virus 1 -BioFire Not Detected Normal Not Detected [facility] Comment on above: Performed By: #### 6 [id number], [id number] #### [facility] (DEFAULT) [address] [place] [address] Parainfluenza Virus 2 -BioFire Not Detected Normal Not Detected [facility] Comment on above: Performed By: #### 6 [id number], [id number] #### [facility] (DEFAULT) [address] [place] [address] Parainfluenza Virus 3 -BioFire Not Detected Normal Not Detected [facility] Comment on above: Performed By: #### 6 [id number], [id number] #### [facility] (DEFAULT) [address] [place] [address] Parainfluenza Virus 4 -BioFire Not Detected Normal Not Detected [facility] Comment on above: Performed By: #### 6 [id number], [id number] #### [facility] (DEFAULT) [address] [place] [address] Respiratory Syncytial Virus -BioFire Not Detected Normal Not Detected [facility] Comment on above: Performed By: #### 6 [id number], [id number] #### [facility] (DEFAULT) [address] [place] [address] SARS-CoV-2 (COVID-19) -BioFire Not Detected Normal Not Detected [facility] Comment on above: Performed By: #### 6 [id number], [id number] #### [facility] (DEFAULT) [address] [place] [address] Urgent Care [facility] 020 Urgent Care Record [facility] ? Urgent Care [address] [place] [address] PATIENT DISCHARGE INSTRUCTIONS Patient Information Name: JULISSA [...] legal documents With: Address: When: Jaime Esquivel [facility], [address] [place] [address] Business (1) Comments: Please follow-up with your primary care doctor or Dr. Esquivel, medical doctor hall monitor, their office schedule an appointment to be seen in 3 to 5 days for continued care, take only Tylenol for headaches or fevers, drink plenty of water for hydration, notified with your COVID-19 results, and return back to the urgent care center for any worsening symptoms, concerns, or complications. Medication Information: The exam and treatment you received today in the [facility] Urgent Care were for an urgent problem and are not intended as complete care. It is important for you to follow up with a doctor, nurse practitioner, or physician?s certified physician's assistant for ongoing care. If your symptoms [...] so we can reach you if necessary. [facility] Urgent [facility] has provided you with a complete list of medications post discharge. 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 Any specific questions regarding your chronic medications and dosages should be discussed with your primary care physician(s) and/or pharmacist. New Medications [id number], [address], [place] [id number], [phone] homatropine-HYDROcod one (homatropine-hydroco done 1.5 mg-5 mg/5 [...] other clear broths. General instructions ? Take yxqw-kes-shcuokx and prescription medicines only as told by [...] not have soap and water, use hand superintendent pressure. ? Avoid touching your mouth, face, eyes, [...] get better within 7?10 days. ? Take eqyi-ihd-vhiosmt and prescription medicines only as told by your doctor. This information is not intended to replace advice given to you by your health care provider. Make sure you discuss any questions you have with your health care provider. Document Released: 03/27/2009 Document Revised: 06/01/2018 Document Reviewed: 06/01/2018 [employer] Interactive Patient Education ? 2019 [employer] Viruses or Bacteria What?s got you [...] for Disease Control and Prevention June 2014 [facility] Vital Signs Date Time Vital Sign Value Performing Clinician Facility 05-12-2025 09:19-0400 Body mass index (BMI) [Ratio] 34.52 kg/m2 Mik Elmo DO Work Phone: [facility] 05-12-2025 09:19-0400 Body weight 99.97 kg Mik Elmo DO Work Phone: [facility] 05-12-2025 09:19-0400 Diastolic blood pressure 80 mm[Hg] Mik Elmo DO Work Phone: [facility] 05-12-2025 09:19-0400 Systolic blood pressure 138 mm[Hg] Mik Elmo DO Work Phone: [facility] 05-05-2025 09:20-0400 Body mass index (BMI) [Ratio] 33.85 kg/m2 Mik Elmo DO Work Phone: [facility] 05-05-2025 09:20-0400 Body weight 98.03 kg Mik Elmo DO Work Phone: [facility] 05-05-2025 09:20-0400 Diastolic blood pressure 86 mm[Hg] Mik Elmo DO Work Phone: [facility] Comment on above: 130/86- recheck 05-05-2025 09:20-0400 Systolic blood pressure 140 mm[Hg] Mik Elmo DO Work Phone: [facility] Comment on above: 130/86- recheck 04-30-2025 14:13-0400 Body mass index (BMI) [Ratio] 34.27 kg/m2 Lindsey GONZALEZ Work Phone: [facility] 04-30-2025 14:13-0400 Body weight 99.25 kg Lindsey GONZALEZ Work Phone: [facility] 04-30-2025 14:13-0400 Diastolic blood pressure 90 mm[Hg] Lindsey GONZALEZ Work Phone: [facility] 04-30-2025 14:13-0400 Systolic blood pressure 146 mm[Hg] Lindsey Bennett GONZALEZ Work Phone: [facility] 04-21-2025 15:39-0400 Body mass index (BMI) [Ratio] 33.83 kg/m2 Mik Elmo DO Work Phone: [facility] 04-21-2025 15:39-0400 Body weight 97.98 kg Mik Elmo DO Work Phone: [facility] 04-21-2025 15:39-0400 Diastolic blood pressure 80 mm[Hg] Mik Elmo DO Work Phone: [facility] 04-21-2025 15:39-0400 Systolic blood pressure 124 mm[Hg] Mik Elmo DO Work Phone: [facility] 04-14-2025 09:03-0400 Body mass index (BMI) [Ratio] 33.8 kg/m2 Mik Elmo DO Work Phone: [facility] 04-14-2025 09:03-0400 Body weight 97.89 kg Mik Elmo DO Work Phone: [facility] 04-14-2025 09:03-0400 Diastolic blood pressure 82 mm[Hg] Mik Elmo DO Work Phone: [facility] 04-14-2025 09:03-0400 Systolic blood pressure 126 mm[Hg] Mik Elmo DO Work Phone: [facility] 04-08-2025 11:38-0400 Body mass index (BMI) [Ratio] 33.36 kg/m2 Mik Elmo DO Work Phone: [facility] 04-08-2025 11:38-0400 Body weight 96.62 kg Mik Elmo DO Work Phone: [facility] 04-08-2025 11:38-0400 Diastolic blood pressure 78 mm[Hg] Mik Elmo DO Work Phone: [facility] 04-08-2025 11:38-0400 Systolic blood pressure 122 mm[Hg] Mik Elmo DO Work Phone: [facility] 03-24-2025 11:35-0400 Body mass index (BMI) [Ratio] 33.52 kg/m2 Mik Elmo DO Work Phone: [facility] 03-24-2025 11:35-0400 Body weight 97.07 kg Mik Elmo DO Work Phone: [facility] 03-24-2025 11:35-0400 Diastolic blood pressure 80 mm[Hg] Mik Elmo DO Work Phone: [facility] 03-24-2025 11:35-0400 Systolic blood pressure 130 mm[Hg] Mik Elmo DO Work Phone: [facility] 02-24-2025 10:50-0400 Body mass index (BMI) [Ratio] 33.05 kg/m2 Mik Elmo DO Work Phone: [facility] 02-24-2025 10:50-0400 Body weight 95.71 kg Mik Elmo DO Work Phone: [facility] 02-24-2025 10:50-0400 Diastolic blood pressure 74 mm[Hg] Mik Elmo DO Work Phone: [facility] 02-24-2025 10:50-0400 Systolic blood pressure 122 mm[Hg] Mik Elmo DO Work Phone: [facility] 01-27-2025 08:51-0400 Body mass index (BMI) [Ratio] 33.11 kg/m2 Mik Elmo DO Work Phone: [facility] 01-27-2025 08:51-0400 Body weight 95.89 kg Mik Elmo DO Work Phone: [facility] 01-27-2025 08:51-0400 Diastolic blood pressure 80 mm[Hg] Mik Elmo DO Work Phone: [facility] 01-27-2025 08:51-0400 Systolic blood pressure 136 mm[Hg] Mik Elmo DO Work Phone: [facility] 01-21-2025 09:05-0400 Body height 171.5 cm Bruce Perez MD Work Phone: [facility] 01-21-2025 09:05-0400 Body mass index (BMI) [Ratio] 33.08 kg/m2 Bruce Perez MD Work Phone: [facility] 01-21-2025 09:05-0400 Body weight 97.25 kg Bruce Perez MD Work Phone: [facility] 01-21-2025 09:05-0400 Diastolic blood pressure 74 mm[Hg] Bruce Perez MD Work Phone: [facility] 01-21-2025 09:05-0400 Heart rate 94 /min Bruce Perez MD Work Phone: [facility] 01-21-2025 09:05-0400 Systolic blood pressure 151 mm[Hg] Bruce Perez MD Work Phone: [facility] 12-23-2024 10:42-0500 Body mass index (BMI) [Ratio] 33.17 kg/m2 Lindsey GONZALEZ Work Phone: [facility] 12-23-2024 10:42-0500 Body weight 96.07 kg Lindsey GONZALEZ Work Phone: [facility] 12-23-2024 10:42-0500 Diastolic blood pressure 84 mm[Hg] Lindsey GONZALEZ Work Phone: [facility] 12-23-2024 10:42-0500 Systolic blood pressure 142 mm[Hg] Lindsey GONZALEZ Work Phone: [facility] 11-25-2024 09:59-0500 Body mass index (BMI) [Ratio] 32.28 kg/m2 Mik Elmo DO Work Phone: [facility] 11-25-2024 09:59-0500 Body weight 93.5 kg Mik Elmo DO Work Phone: [facility] 11-25-2024 09:59-0500 Diastolic blood pressure 84 mm[Hg] Mik Elmo DO Work Phone: [facility] 11-25-2024 09:59-0500 Systolic blood pressure 120 mm[Hg] Mik Elmo DO Work Phone: [facility] 10-24-2024 14:22-0500 Body mass index (BMI) [Ratio] 31.64 kg/m2 [employer] [facility] 10-24-2024 14:22-0500 Body weight 91.63 kg [employer] [facility] [facility] 10-24-2024 14:22-0500 Diastolic blood pressure 74 mm[Hg] [employer] [facility] [facility] 10-24-2024 14:22-0500 Systolic blood pressure 120 mm[Hg] [employer] [facility] [facility] 09-16-2024 15:18-0500 Body mass index (BMI) [Ratio] 32.08 kg/m2 Mik Elmo DO Work Phone: [facility] 09-16-2024 15:18-0500 Body weight 92.9 kg Mik Elmo DO Work Phone: [facility] 09-16-2024 15:18-0500 Diastolic blood pressure 68 mm[Hg] Mik Elmo DO Work Phone: [facility] 09-16-2024 15:18-0500 Systolic blood pressure 114 mm[Hg] Mik Elmo DO Work Phone: [facility] 05-12-2022 15:32-0400 Blood Pressure Location William Melendezen [facility] 05-12-2022 15:32-0400 Diastolic blood pressure 70 mm[Hg] Arunylinn Dokken [facility] 05-12-2022 15:32-0400 Heart rate 101 /min Arunyljose cn Dokken [facility] 05-12-2022 15:32-0400 Mean blood pressure 84 mm[Hg] Kaylinn Dokken [facility] 05-12-2022 15:32-0400 Respiratory rate 24 /min Kaylinn Dokken [facility] 05-12-2022 15:32-0400 SaO2% (BldA) [Mass fraction] 96 % Kaylinn Dokken [facility] 05-12-2022 15:32-0400 Systolic blood pressure 114 mm[Hg] Kaylinn Dokken [facility] 05-12-2022 14:20-0400 Body temperature 98.06 [degF] Kaylinn Dokken [facility] 05-12-2022 14:20-0400 Diastolic blood pressure 69 mm[Hg] Kaylinn Dokken [facility] 05-12-2022 14:20-0400 Heart rate 73 /min Kaylinn Dokken [facility] 05-12-2022 14:20-0400 Respiratory rate 16 /min Kaylinn Dokken [facility] 05-12-2022 14:20-0400 SaO2% (BldA) [Mass fraction] 97 % Kaylinn Dokken [facility] 05-12-2022 14:20-0400 Systolic blood pressure 108 mm[Hg] Kaylinn Dokken [facility] 05-12-2022 13:14-0400 Body temperature 98.24 [degF] Kaylinn Dokken [facility] 05-12-2022 13:14-0400 Diastolic blood pressure 82 mm[Hg] Kaylinn Dokken [facility] 05-12-2022 13:14-0400 Heart rate 87 /min Kaylinn Dokken [facility] 05-12-2022 13:14-0400 Mean blood pressure 98 mm[Hg] Kaylinn Dokken [facility] 05-12-2022 13:14-0400 SaO2% (BldA) [Mass fraction] 95 % Kaylinn Dokken [facility] 05-12-2022 13:14-0400 Systolic blood pressure 129 mm[Hg] Kaylinn Dokken [facility] 05-12-2022 13:05-0400 Body temperature 97.88 [degF] Kaylinn Dokken [facility] 05-12-2022 13:05-0400 Mean blood pressure 96 mm[Hg] Kaylinn Dokken [facility] 05-12-2022 13:05-0400 Respiratory rate 14 /min Kaylinn Dokken [facility] 05-12-2022 13:00-0400 Respiratory rate 13 /min Kaylinn Dokken [facility] 05-12-2022 12:45-0400 Mean blood pressure 95 mm[Hg] Kaylinn Dokken [facility] 05-12-2022 11:56-0400 Body temperature 98.06 [degF] Kaylinn Dokken [facility] 05-12-2022 11:50-0400 Respiratory rate 16 /min Kaylinn Dokken [facility] 05-12-2022 11:45-0400 Respiratory rate 16 /min Kaylinn Dokken [facility] 05-12-2022 09:30-0400 Blood Pressure Location Kaylinn Dokken [facility] 05-12-2022 09:30-0400 Mean blood pressure 93 mm[Hg] Kaylinn Dokken [facility] 05-12-2022 09:28-0400 Blood Pressure Location Kaylinn Dokken [facility] 05-12-2022 09:28-0400 Body temperature 97.7 [degF] Kaylinn Dokken [facility] 05-12-2022 09:00-0400 Hourly Rounding Kaylinn Dokken [facility] 05-12-2022 09:00-0400 Promise to Return Kaylinn Dokken [facility] 05-12-2022 08:00-0400 Hourly Rounding Kaylinn Dokken [facility] 05-12-2022 08:00-0400 Promise to Return Kaylinn Dokken [facility] 05-11-2022 22:41-0400 Heart rate 112 /min Kaylinn Dokken [facility] 03-08-2022 10:17-0400 Blood Pressure Location Helene HAMILTON [facility] 03-08-2022 10:17-0400 Body temperature 99.5 [degF] Helene HAMILTON [facility] 03-08-2022 10:17-0400 Diastolic blood pressure 84 mm[Hg] Helene HAMILTON [facility] 03-08-2022 10:17-0400 Heart rate 84 /min Helene HAMILTON [facility] 03-08-2022 10:17-0400 SaO2% (BldA) [Mass fraction] 97 % Helene HAMILTON [facility] 03-08-2022 10:17-0400 Systolic blood pressure 118 mm[Hg] Helene HAMILTON [facility] Encounters Encounter Date Encounter Type Care Provider Facility Start: 05-12-2025 End: 05-12-2025 Bamboo flowsheet Mik Elmo DO Work Phone: [facility] Start: 05-12-2025 End: 05-12-2025 Bamboo flowsheet Mik Elmo DO Work Phone: [facility] Start: 05-12-2025 End: 05-12-2025 flow sheet Mik Elmo DO Work Phone: [facility] Comment on above: 35 weeks gestation o f ([facility]); Third trimester ([facility]); High blood pressure affecting in third trimester, antepartum ([facility]); Insulin controlled gestational diabetes mellitus (GDM) in third trimester ([facility]); Multigravida of advanced maternal age in third trimester ([facility]); induced hypertension, antepartum ([facility]) Start: 05-07-2025 End: 05-07-2025 Clinisync Result Encounter Mik Elmo DO Work Phone: [facility] Unsolicited Start: 05-07-2025 End: 05-07-2025 Clinisync Result Encounter Mik Elmo DO Work Phone: [facility] Unsolicited Start: 05-06-2025 End: 05-06-2025 Clinisync Result Encounter Mik Elmo DO Work Phone: [facility] Unsolicited Start: 05-06-2025 End: 05-06-2025 Clinisync Result Encounter Mik Elmo DO Work Phone: [facility] Unsolicited Start: 05-05-2025 End: 05-05-2025 Bamboo flowsheet Mik Elmo DO Work Phone: [facility] Start: 05-05-2025 End: 05-05-2025 Bamboo flowsheet Mik Elmo DO Work Phone: [facility] Start: 05-05-2025 End: 05-05-2025 ambulatory MIK ELMO Not Available Start: 05-05-2025 End: 05-05-2025 flow sheet Mik Elmo DO Work Phone: [facility] Comment on above: 34 weeks gestation o f ([facility]); Third trimester ([facility]); High blood pressure affecting in third trimester, antepartum ([facility]); induced hypertension, antepartum ([facility]); Insulin controlled gestational diabetes mellitus (GDM) in third trimester ([facility] Multigravida of advanced maternal age in third trimester ([facility]); Gestational diabetes mellitus (GDM), antepartum, gestational diabetes method of control unspecified ([facility]) Start: 04-30-2025 End: 04-30-2025 Clinisync Result Encounter Mik Elmo DO Work Phone: [facility] Unsolicited Start: 04-30-2025 End: 04-30-2025 Clinisync Result Encounter Mik Elmo DO Work Phone: [facility] Unsolicited Start: 04-30-2025 End: 04-30-2025 flow sheet Lindsey Cobb PA Work Phone: [facility] Comment on above: 33 weeks gestation o f ([facility]); Third trimester ([facility]); High blood pressure affecting in third trimester, antepartum ([facility]); induced hypertension, antepartum ([facility]) Start: 04-30-2025 End: 04-30-2025 ambulatory LINDSEY BENNETT Not Available Start: 04-23-2025 End: 04-23-2025 Clinisync Result Encounter Mik Elmo DO Work Phone: [facility] External Department Unsolicited Start: 04-23-2025 End: 04-23-2025 Clinisync Result Encounter Mik Elmo DO Work Phone: [facility] Unsolicited Start: 04-21-2025 End: 04-21-2025 ambulatory MIK ELMO Not Available Start: 04-21-2025 End: 04-21-2025 flow sheet Mik Elmo DO Work Phone: [facility] Comment on above: Third trimester preg lillian ([facility]); 32 weeks gestation of ([facility]); Insulin controlled gestational diabetes mellitus (GDM) in third trimester ([facility]); Multigravida of advanced maternal age in third trimester ([facility]); Hypertension, unspecified type Start: 04-21-2025 End: 04-21-2025 [...] Comment on above: Third trimester preg lillian ([facility]); 31 weeks gestation of ([facility]) Start: 04-14-2025 End: 04-14-2025 ambulatory MIK ELMO Not Available Start: 04-08-2025 End: 04-08-2025 Bamboo flowsheet Mik Elmo DO Work Phone: [facility] Start: 04-08-2025 End: 04-08-2025 Bamboo flowsheet Mik Elmo DO Work Phone: [facility] Start: 04-08-2025 End: 04-08-2025 flow sheet Mik Elmo DO Work Phone: [facility] Comment on above: Third trimester preg lillian ([facility]); 30 weeks gestation of ([facility]); Gestational diabetes mellitus (GDM), antepartum, gestational diabetes method of control unspecified ([facility]) Start: 04-08-2025 End: 04-08-2025 ambulatory MIK ELMO Not Available Start: 04-01-2025 End: 04-01-2025 Orders Only Michelle Ashraf RN [facility] Comment on above: Chronic hypertension affecting (Primary Dx); Gestational diabetes mellitus (GDM), antepartum, gestational diabetes method of control unspecified Start: 03-31-2025 End: 03-31[facility] Start[facility] 03-24-2025 End: 03-24-2025 Bamboo flowsheet [...] 03-04-2025 End: 03-04-2025 Orders Only Oralia Elliott [facility] at [facility] Comment on above: Chronic hypertension affecting (Primary Dx); Advanced maternal age in multigravida, second trimester; Gestational diabetes mellitus (GDM), antepartum, gestational diabetes method of control unspecified Start: 03-03-2025 End: 03-03-20[facility] Start: 02-24-2025 End: 02-24-2025 Bamboo flowsheet [...] 02-17-2025 End: 02-17-2025 ambulatory Mik R ELMO Facility:[facility] Start: 02-17-2025 End: 02-17-2025 Patient encounter procedure Mik R ELMO [facility] Start: 02-04-2025 End: 02-04-2025 Telephone encounter Yamila Rayo LPN [facility] Start: 02-04-2025 End: 02-04-2025 ambulatory Mik R ELMO Facility:[facility] Start: 02-04-2025 End: 02-04-2025 Lab Drop off Mik R ELMO [facility] Start: 01-27-2025 End: 01-27-2025 Bamboo flowsheet Mik Elmo DO Work Phone: [facility] Start: 01-27-2025 End: 01-27-2025 Bamboo flowsheet Mik Elmo DO Work Phone: [facility] Start: 01-27-2025 End: 01-27-2025 ambulatory Mik R ELMO Facility:[facility] Start: 01-27-2025 End: 01-27-2025 Patient encounter procedure Mik R ELMO [facility] Start: 01-27-2025 End: 01-27-2025 flow sheet Mik Elmo DO Work Phone: [facility] Comment on above: 20 weeks [...] of Start: 01-21-2025 End: 01-21-2025 ambulatory MIK BORREGO [facility] Start: 01-20-2025 End: 01-20-2025 Clinisync Result [...] Hospital Start: 12-30-2024 End: 12-30-2024 ambulatory MIK VELEZO Not Available Start: 12-23-2024 End: 12-23-2024 Bamboo [...] Work Phone: [facility] Unsolicited Start: 10-03-2022 End: 10-03-2022 Patient encounter procedure DONA DELAROSA [facility] Start: 10-03-2022 End: 10-03-2022 Manual pelvic examination DONA DELAROSA [facility] Start: 07-12-2022 End: 07-12-2022 Patient encounter procedure Helene HAMILTON [facility] Start: 06-01-2022 End: 08-30-2022 Patient encounter procedure Helene HAMILTON [facility] Start: 05-11-2022 End: 05-12-2022 Emergency department patient visit William Yoder [facility] Start: 03-08-2022 End: 03-08-2022 Patient encounter procedure Helene HAMILTON [facility] Procedures Date Procedure Procedure Detail Performing Clinician Start: 05-12-2025 Urnls dip stick/tabl et rgnt non-auto w/o micrscp Mik Elmo DO Work Phone: Start: 05-07-2025 US OB BPP W NON-STRESS Mik Elmo DO Work Phone: Start: 05-06-2025 US OB BPP W NON-STRESS Mik Elmo DO Work Phone: Start: 05-05-2025 Urnls dip stick/tabl et rgnt non-auto w/o micrscp Mik Elmo DO Work Phone: Start: 04-30-2025 Urnls dip stick/tabl et rgnt non-auto w/o micrscp Lindsey Cobb PA Work Phone: Start: 04-30-2025 US OB BPP W NON-STRESS Mki Elmo DO Work Phone: Start: 04-30-2025 US [...] ion [Identifier] in Cervix by Cyto stain [facility] Start: 05-12-2022 Laparoscopic appendectomy William Yoder History of appendectomy History of appendectomy( Confirmed ) Helene HAMILTON None (qualifier value) Rachna HAMILTON Plan of Treatment Date Care Activity Detail Author Start: 09-16-2029 Screening for malignant neoplasm of cervix [facility] Start: 09-16-2027 Screening for malignant neoplasm of cervix Pap Smear [facility] Start: 04-01-2026 End: 04-01-2026 US MFM with or without consult US MFM with or without consult Imaging Routine Chronic hypertension affecting Gestational diabetes mellitus (GDM), antepartum, gestational diabetes method of control unspecified Expected: 04/01/2026 (Approximate), Expires: 04/01/2026 [employer] Work Phone: Comment on above: Expected: 04/01/2026 (Approximate), Expi res: 04/01/2026 Start: 03-04-2026 End: 03-04-2026 US MFM with or without consult US MFM with or without consult Imaging Routine Chronic hypertension affecting Advanced maternal age in multigravida, second trimester Gestational diabetes mellitus (GDM), antepartum, gestational diabetes method of control unspecified Expected: 03/04/2026 (Approximate), Expires: 03/04/2026 [employer] Work Phone: Comment on above: Expected: 03/04/2026 (Approximate), Expi res: 03/04/2026 Start: 01-21-2026 Adult BMI Screening Adult BMI Screening [facility] Start: 01-21-2026 Tobacco Screening Tobacco Screening [facility] Start: 08-05-2025 Screening for malignant neoplasm of cervix [facility] Start: 06-23-2025 Influenza vaccination [facility] Start: 05-19-2025 End: 05-19-2025 Patient encounter procedure 05/19/2025 9:40 AM EDT Routine [facility] [address] [place] [address] Mik Borrego, [address] [place] [address] [facility] Start: 05-12-2025 End: 05-12-2025 Patient encounter procedure 05/12/2025 9:10 AM EDT Routine [facility] [address] [place] [address] Mik Borrego, DO [address] [facility] [place] [address] [place] [address] [facility] Start: 05-05-2025 End: 05-05-2025 Patient encounter procedure 05/05/2025 9:10 AM EDT Routine [facility] [address] [place] [id number] Mik Borrego, DO [address] [facility] [place] [address] [address] [facility] Start: 04-30-2025 End: 04-30-2026 Alanine aminotransferase [Enzymatic activity/volume] in Serum or Plasma ALT Lab Routine induced hypertension, antepartum ([facility]) Expected: 04/30/2025 (Approximate), Expires: 04/30/2026 [facility] Comment on above: Expected: 04/30/2025 (Approximate), Expi res: 04/30/2026 Start: 04-30-2025 End: 04-30-2026 Aspartate aminotransferase [Enzymatic activity/volume] in Serum or Plasma AST Lab Routine induced hypertension, antepartum ([facility]) Expected: 04/30/2025 (Approximate), Expires: 04/30/2026 [facility] Comment on above: Expected: 04/30/2025 (Approximate), Expi res: 04/30/2026 Start: 04-30-2025 End: 04-30-2026 CBC W Auto Differential panel - Blood CBC and differential Lab Routine induced hypertension, antepartum ([facility]) Expected: 04/30/2025 (Approximate), Expires: 04/30/2026 [facility] Comment on above: Expected: 04/30/2025 (Approximate), Expi res: 04/30/2026 Start: 04-30-2025 End: 04-30-2026 Creatinine [Mass/volume] in Serum or Plasma Creatinine Lab Routine induced hypertension, antepartum ([facility]) Expected: 04/30/2025 (Approximate), Expires: 04/30/2026 [facility] Work Phone: Comment on above: Expected: 04/30/2025 (Approximate), Expi res: 04/30/2026 Start: 04-30-2025 End: 04-30-2026 Lactate dehydrogenase [Enzymatic activity/volume] in Serum or Plasma by Lactate to pyruvate reaction Lactate dehydrogenase Lab Routine induced hypertension, antepartum ([facility]) Expected: 04/30/2025, Expires: 04/30/2026 [facility] Comment on above: Expected: 04/30/2025, Expires: Start: 04-30-2025 End: 04-30-2026 Protein, urine, 24 hour Protein, urine, 24 hour Lab Routine induced hypertension, antepartum ([facility]) Expected: 04/30/2025 (Approximate), Expires: 04/30/2026 [facility] Comment on above: Expected: 04/30/2025 (Approximate), Expi res: 04/30/2026 Start: 04-30-2025 End: 04-30-2026 Pt and ptt Pt and ptt Lab Routine induced hypertension, antepartum ([facility]) Expected: 04/30/2025, Expires: 04/30/2026 [facility] Comment on above: Expected: 04/30/2025, Expires: Start: 04-30-2025 End: 04-30-2026 Urate [Mass/volume] in Serum or Plasma Uric acid Lab Routine induced hypertension, antepartum ([facility]) Expected: 04/30/2025 (Approximate), Expires: 04/30/2026 [facility] Comment on above: Expected: 04/30/2025 (Approximate), Expi res: 04/30/2026 Start: 04-30-2025 End: 04-30-2026 Urea nitrogen [Mass/volume] in Serum or Plasma BUN Lab Routine induced hypertension, antepartum ([facility]) Expected: 04/30/2025, Expires: 04/30/2026 [facility] Comment on above: Expected: 04/30/2025, Expires: Start: 04-29-2025 End: 04-29-2025 Patient encounter procedure 04/29/2025 3:15 PM EDT Appointment [facility] [address] [facility] [place] [id number] [facility] Start: 04-28-2025 End: 04-28-2025 Patient encounter procedure 04/28/2025 2:50 PM EDT Routine [facility] [address] [place] [address] Mik Borrego, DO [address] [place] [address] [facility] Start: 04-21-2025 End: 04-21-2025 Patient encounter procedure 04/21/2025 3:20 PM EDT Routine [facility] [address] [place] [id number] Mik Borrego, DO [address] [place] [address] [facility] Start: 04-21-2025 End: 08-21-2025 US for US OB follow up transabdominal approach Imaging Routine Insulin controlled gestational diabetes mellitus (GDM) in third trimester ([facility]) Expected: 04/21/2025, Expires: 08/21/2025 [facility] Work Phone: Comment on above: Expected: 04/21/2025, Expires: Start: 04-14-2025 End: 04-14-2025 Patient encounter procedure [facility] Comment on above: Arrived Start: 04-08-2025 End: 04-08-2025 Patient encounter procedure [facility] Comment on above: Arrived Start: 03-31-2025 End: 03-31-2025 Patient encounter procedure 03/31/2025 11:00 AM EDT Appointment [facility] [address] [place] [address] [facility] Start: 03-24-2025 End: 09-23-2025 US biophysical profile w non stress test US biophysical profile w non stress test Imaging Routine Gestational diabetes mellitus (GDM), antepartum, gestational diabetes method of control unspecified Multigravida of advanced maternal age in third trimester Expected: 03/24/2025 (Approximate), Expires: 09/23/2025 [facility] Comment on above: Expected: 03/24/2025 (Approximate), Expi res: 09/23/2025 Start: 03-24-2025 End: 07-24-2025 US for US OB follow up transabdominal approach Imaging Routine Gestational diabetes mellitus (GDM), antepartum, gestational diabetes method of control unspecified Multigravida of advanced maternal age in third trimester Expected: 03/24/2025, Expires: 07/24/2025 [facility] Work Phone: Comment on above: Expected: 03/24/2025, Expires: Start: 03-24-2025 End: 03-24-2025 Patient encounter procedure [facility] Comment on above: Arrived Start: 03-03-2025 End: 03-03-2025 Patient encounter procedure 03/03/2025 11:00 AM EDT Appointment [facility] [address] [place] [phone] [facility] Start: 02-24-2025 End: 02-24-2025 Patient encounter procedure [facility] Comment on above: Arrived Start: 02-10-2025 End: 02-10-2025 ambulatory 02/10/2025 1:30 PM EDT Support Visit Maternal- Medicine at [facility] [address] [place] [address] Elham Garcia RN [address], [facility] [place] [address] Mansi Boyer, BRYANT [address], [address] [place] [address] M[facility]- Medicine at [facility] Start: 02-10-2025 End: 02-10-2025 Telemedicine consultation with patient 02/10/2025 10:30 AM EDT Telemedicine Maternal- Medicine at [facility] [address] [facility] [place] [phone] Hien Ribera PA-C [address] [facility] [address] [address] M[facility]- Medicine at [facility] Start: 01-27-2025 End: 01-27-2026 CBC panel - Blood by Automated count CBC Lab Routine Diabetes mellitus screening Expected: 01/27/2025 (Approximate), Expires: 01/27/2026 [facility] Work Phone: Comment on above: Expected: 01/27/2025 (Approximate), Expi res: 01/27/2026 Start: 01-27-2025 End: 01-27-2026 Comprehensive metabolic 2000 panel - Serum or Plasma Comprehensive metabolic panel Lab Routine Second trimester Elevated blood pressure affecting , antepartum induced hypertension, antepartum Antepartum multigravida of advanced maternal age Expected: 01/27/2025 (Approximate), Expires: 01/27/2026 [facility] Comment on above: Expected: 01/27/2025 (Approximate), Expi res: 01/27/2026 Start: 01-27-2025 End: 01-27-2026 ECG 12 lead ECG 12 lead ECG Routine Second trimester Elevated blood pressure affecting , antepartum induced hypertension, antepartum Antepartum multigravida of advanced maternal age Expected: 01/27/2025 (Approximate), Expires: 01/27/2026 [facility] Comment on above: Expected: 01/27/2025 (Approximate), Expi res: 01/27/2026 Start: 01-27-2025 End: 01-27-2027 Echocardiogram 2D complete Echocardiogram 2D complete Echocardiography Routine Second trimester Elevated blood pressure affecting , antepartum induced hypertension, antepartum Antepartum multigravida of advanced maternal age Expected: 01/27/2025 (Approximate), Expires: 01/27/2027 [facility] Comment on above: Expected: 01/27/2025 (Approximate), Expi res: 01/27/2027 Start: 01-27-2025 End: 01-27-2026 Lactate dehydrogenase [Enzymatic activity/volume] in Serum or Plasma by Lactate to pyruvate reaction Lactate dehydrogenase Lab Routine Second trimester Elevated blood pressure affecting , antepartum induced hypertension, antepartum Antepartum multigravida of advanced maternal age Expected: 01/27/2025, Expires: 01/27/2026 [facility] Comment on above: Expected: 01/27/2025, Expires: Start: 01-27-2025 End: 01-27-2026 Measurement of glucose 1 hour after glucose challenge for glucose tolerance test Glucose tolerance, 1 hour Lab Routine Diabetes mellitus screening Expected: 01/27/2025 (Approximate), Expires: 01/27/2026 [facility] Comment on above: Expected: 01/27/2025 (Approximate), Expi res: 01/27/2026 Start: 01-27-2025 End: 01-27-2026 Natriuretic peptide B [Mass/volume] in Blood B-type natriuretic peptide Lab Routine Second trimester Elevated blood pressure affecting , antepartum induced hypertension, antepartum Antepartum multigravida of advanced maternal age Expected: 01/27/2025 (Approximate), Expires: 01/27/2026 [facility] Comment on above: Expected: 01/27/2025 (Approximate), Expi res: 01/27/2026 Start: 01-27-2025 End: 01-27-2026 Urate [Mass/volume] in Serum or Plasma Uric acid Lab Routine Second trimester Elevated blood pressure affecting , antepartum induced hypertension, antepartum Antepartum multigravida of advanced maternal age Expected: 01/27/2025 (Approximate), Expires: 01/27/2026 [facility] Comment on above: Expected: 01/27/2025 (Approximate), Expi res: 01/27/2026 Start: 01-27-2025 End: 01-27-2025 Patient encounter procedure [facility] Comment on above: Arrived Start: 01-21-2025 End: 01-21-2026 US MFM with or without consult US MFM with or without consult Imaging Routine Chronic hypertension affecting Advanced maternal age in multigravida, second trimester Prediabetes in mother during Gestational diabetes mellitus (GDM), antepartum, gestational diabetes method of control unspecified Expected: 01/21/2025, Expires: 01/21/2026 [facility] Work Phone: Comment on above: Expected: 01/21/2025, Expires: Start: 01-21-2025 End: 01-21-2025 Patient encounter procedure 01/21/2025 10:30 AM EDT Office Visit Maternal- Medicine at [facility] [address] [place] [phone] Bruce Perez MD [address] [address] M[facility]- Medicine at [facility] Start: 01-21-2025 End: 01-21-2025 Patient encounter procedure 01/21/2025 9:15 AM EDT Appointment [facility] [address] [place] [phone] [facility] Start: 01-20-2025 End: 01-20-2025 Patient encounter procedure 01/20/2025 9:20 AM EDT Routine [facility] [address] [place] [phone] Mik Borrego DO [facility] [place] [address] [facility] Start: 12-30-2024 End: 12-30-2024 Clinical Support 12/30/2024 9:10 AM EDT Clinical Support [facility] [address] [place] [phone] [facility] Start: 12-23-2024 End: 02-22-2025 [...] gestational age Expected: 10/24/2024 (Approximate), Expires: 10/24/2025 [facility] Comment on above: Expected: 10/24/2024 [...] Start: 10-24-2024 End: 10-24-2025 US Pelvis transvaginal [facility] Work Phone: Comment on above: Expected: 10/24/2024, Expires: Start: 09-16-2024 End: 09-16-2024 Patient encounter procedure 09/16/2024 3:00 PM EST Office Visit [facility] [address] [place] [address] Mik Borrego, DO [address] [place] [address] [place] [address] Arrived [facility] Comment on above: Arrived Start: 06-23-2024 COVID-19 Vaccine ( season) COVID-19 Vaccine () [facility] Start: 06-23-2024 Influenza vaccination [facility] Start: 06-01-2019 DTaP,Tdap and Td Vaccines (2 - Td or Tdap) DTaP,Tdap and Td Vaccines (2 - Td or Tdap) [facility] Start: 2009 Screening for malignant neoplasm of cervix Pap Smear [facility] Start: 2007 DTaP,Tdap and Td Vaccines (1 - Tdap) DTaP,Tdap and Td Vaccines (1 - Tdap) [facility] Start: 2006 Adult BMI Follow Up Plan Adult BMI Follow Up Plan [facility] Start: 2006 Adult BMI Screening Adult BMI Screening [facility] Start: 2000 Depression Screening Depression Screening [facility] Start: 2000 Tobacco Screening Tobacco Screening [facility] Bacteria identified in Urine by Culture Urine culture Microbiology Routine Missed menses Ordered: 10/24/2024 [facility] Comment on above: Ordered: 10/24/2024 End: 01-21-2026 CBC panel - Blood by Automated count CBC without diff Lab Routine Chronic hypertension affecting 1 Occurrences starting 01/21/2025 until 01/21/2026 [facility] Comment on above: 1 Occurrences starting 01/21/2025 until 01/21/2026 CBC W Auto Different ial panel - Blood CBC and differential Lab Routine Missed menses , unspecified gestational age Ordered: 10/24/2024 [facility] Comment on above: Ordered: 10/24/2024 CBC W Auto Different ial panel - Blood CBC and differential Lab Routine Second trimester Elevated blood pressure affecting , antepartum induced hypertension, antepartum Antepartum multigravida of advanced maternal age Ordered: 01/27/2025 [facility] Comment on above: Ordered: 01/27/2025 CHLAMYDIA TRACHOMATI S (GENITO/STI) CHLAMYDIA TRACHOMATIS (GENITO/STI) Lab Routine STD exposure Vaginal discharge Ordered: 12/23/2024 [facility] Comment on above: Ordered: 12/23/2024 End: 01-21-2026 Comprehensive metabolic 2000 panel - Serum or Plasma Comprehensive metabolic panel Lab Routine Chronic hypertension affecting 1 Occurrences starting 01/21/2025 until 01/21/2026 [facility] Comment on above: 1 Occurrences starting 01/21/2025 until 01/21/2026 Cytology Cervical or vaginal smear or scraping study Pap Smear Pathology and Cytology Routine Well woman exam with routine gynecological exam Ordered: 09/16/2024 [facility] Work Phone: Comment on above: Ordered: 09/16/2024 End: 01-21-2026 ECG 12 lead ECG 12 lead ECG Routine Chronic hypertension affecting 1 Occurrences starting 01/21/2025 until 01/21/2026 [facility] Comment on above: 1 Occurrences starting 01/21/2025 until 01/21/2026 Hemoglobin A1c/Hemoglobin.total in Blood Hemoglobin A1c Lab Routine Missed menses , unspecified gestational age Ordered: 10/24/2024 [facility] Comment on above: Ordered: 10/24/2024 Hepatitis B virus avalos rface Ag [Presence] in Serum or Plasma by Immunoassay Hepatitis B surface antigen Lab Routine Missed menses , unspecified gestational age Ordered: 10/24/2024 [facility] Comment on above: Ordered: 10/24/2024 Hepatitis C virus Ab [Presence] in Serum or Plasma by Immunoassay Hepatitis C antibody Lab Routine Missed menses , unspecified gestational age Ordered: 10/24/2024 [facility] Comment on above: Ordered: 10/24/2024 HIV-1/HIV-2 antigen/antibody combination immunoassay HIV-1 and HIV-2 antibodies Lab Routine Missed menses , unspecified gestational age Ordered: 10/24/2024 [facility] Comment on above: Ordered: 10/24/2024 Human papilloma viru s DNA [Presence] in Unspecified specimen by Probe with amplification HPV DNA probe, amplified Microbiology Routine Well woman exam with routine gynecological exam Ordered: 09/16/2024 [facility] Comment on above: Ordered: 09/16/2024 End: 01-21-2026 Natriuretic peptide B [Mass/volume] in Blood B-type natriuretic peptide Lab Routine Chronic hypertension affecting 1 Occurrences starting 01/21/2025 until 01/21/2026 [email or web address] Work Phone: Comment on above: 1 Occurrences starting 01/21/2025 until 01/21/2026 Neisseria gonorrhoea e DNA [Presence] in Unspecified specimen by DANA with probe detection Neisseria gonorrhea DNA probe, direct Lab Routine STD exposure Vaginal discharge Ordered: 12/23/2024 [facility] Comment on above: Ordered: 12/23/2024 End: 01-21-2026 Protein creat ratio Protein creat ratio Lab Routine Chronic hypertension affecting 1 Occurrences starting 01/21/2025 until 01/21/2026 [facility] Comment on above: 1 Occurrences starting 01/21/2025 until 01/21/2026 Protein, urine, 24 hour Protein, urine, 24 hour Lab Routine Second trimester Elevated blood pressure affecting , antepartum induced hypertension, antepartum Antepartum multigravida of advanced maternal age Ordered: 01/27/2025 [facility] Comment on above: Ordered: 01/27/2025 Reagin Ab [Presence] in Serum by RPR RPR Lab Routine Missed menses , unspecified gestational age Ordered: 10/24/2024 [facility] Comment on above: Ordered: 10/24/2024 Rubella antibody, IgG Rubella an tibody, IgG Lab Routine Missed menses , unspecified gestational age Ordered: 10/24/2024 [facility] Comment on above: Ordered: 10/24/2024 SURESWAB(R) ADVANCED VAGINITIS PLUS, TMA SURESWAB(R) ADVANCED VAGINITIS PLUS, TMA Pathology and Cytology Routine STD exposure Vaginal discharge Ordered: 12/23/2024 [facility] Work Phone: Comment on above: Ordered: 12/23/2024 Immunizations Immunization Date Immunization Notes Care Provider Radha neves 08-05-2021 COVID-19, mRNA, LNP- S, PF, 30 mcg/0.3 mL dose Helene HAMILTON [facility] 06-25-2021 COVID-19, mRNA, LNP- S, PF, 30 mcg/0.3 mL dose Helene HAMILTON [facility] 02-08-2019 meningococcal ACWY vaccine, unspecified formulation Helene HAMILTON [facility] 12-14-2009 hepatitis B vaccine, adult dosage Helene HAMILTON [facility] 07-03-2009 hepatitis B vaccine, adult dosage Helene HAMILTON [facility] 06-01-2009 hepatitis B vaccine, adult dosage Helene HAMILTON [facility] 06-01-2009 tetanus toxoid, redu carolina diphtheria toxoid, and acellular pertussis vaccine, adsorbed Helenedhara HAMILTON [facility] 05-16-2001 measles, mumps and rubella virus vaccine Helene HAMILTON [facility] NEGATED: Highlighted row has not occurred!03-08-2022 influenza virus vaccine, unspecified formulation Helene HAMILTON [facility] NEGATED: Highlighted row has not occurred!03-16-2021 SARS-CoV-2 (COVID-19) mRNA-5923 vaccine Helene HAMILTON [facility] NEGATED: Highlighted row has not occurred!10-20-2020 influenza virus vaccine, unspecified formulation Helene HAMILTON [facility] Payers Date Payer Category Payer Unknown [id number] 2022 [facility] BCBS [id number] 2022 [facility] [[email or web address] Managed Care - PPO ANTHEM [id number] 2022 Unknown [id number] 1988 Unknown [id number] 2.16.840.1.970015.3.579. 2.727 1988 Unknown [id number] 2..840.1.705707.3.579. 2.727 1988 Unknown [id number] 2.16.840.1.259040.3.579. 2.727 1988 Unknown [id number] 2.16.840.1.066137.3.579. 2.1286 1988 Unknown [id number] 2.16.840.1.727915.3.579. 2.1286 1988 Unknown [id number] 2.16.840.1.723469.3.579. 2.1286 1988 Unknown [id number] 2.16.840.1.467754.3.579. 2.1286 1988 Unknown [id number] 2.16.840.1.976331.3.579. 2.9 1988 Unknown [id number] 2.16840.1.270743.3.579. 2.1258 1988 Unknown [id number] 2.16.840.1.102198.3.579. 2.1259 1988 Unknown [id number] 2.16.840.1.914958.3.579. 2.1258 1988 Unknown [id number] 2.16.840.1.098310.3.579. 2.9 1988 Unknown [id number] 2.16840.1.960789.3.579. 2.1259 1988 Unknown [id number] 2.16.840.1.232903.3.579. 2.1259 1988 Unknown [id number] 2.16.840.1.265651.3.579. 2.1258 1988 Unknown [id number] 2.16.840.1.211289.3.579. 2.1259 1988 Unknown [id number] 2.16.840.1.468922.3.579. 2.9 1988 Unknown [id number] 2.16.840.1.615286.3.579. 2.1259 1988 Unknown [id number] 2.16.840.1.473819.3.579. 2.1259 1988 Unknown [id number] 2.16.840.1.834080.3.579. 2.1259 1988 Unknown [id number] 2.16.840.1.415534.3.579. 2.1259 Social History Date Type Detail Facility Start: 03-08-2022 End: 02-16-2025 Tobacco smoking status Never smoked tobacco (finding) [facility] Start: 01-21-2025 Sex Assigned At Female F [facility] Start: 12-06-2024 Tobacco smoking stat [facility] Tobacco smoking consumption unknown [facility] Start: 1990 Sex assigned at Not on file [facility] Start: 09-19-2024 [facility] Start: 01-10-2019 End: 12-05-2024 Sex Female (finding) [facility] Start: 01-21-2025 Tobacco smoking stat [facility] History of tobacco use Current smoker [facility] History of tobacco use Cigarette Smoker [facility] Start: 01-21-2025 Tobacco use and exposure Smokeless tobacco non-user [facility] Start: 01-21-2025 Alcoholic beverage intake Ex-drinker (finding) [facility] Start: 01-21-2025 History of Social function [facility] Within the past 12 months we worried whether our food would run out before we got money to buy more. Never True [facility] Sexual Orientation [facility] Medical Equipment Procedure Code Equipment Code Equipment Origin al Text Equipment Identifier Dates 1 strip by other route in the morning and 1 strip at noon and 1 strip in the evening and 1 strip before bedtime. [id number] Start: 01-21-2025 Fasting and 1hr postprandial [id number] Start: 01-21-2025 1 strip by In Vi tro route Daily Use in the morning prior to breakfast, 1 hour after each meal for a total of 4times daily. [id number] Start: 01-27-2025 End: 02-26-2025 1 each by In Vit ro route Daily Use to check FSBS four times daily [id number] Start: 01-27-2025 End: 02-26-2025 Use four times d aily to check FSBS as directed. [id number] Start: 01-29-2025 End: 01-29-2026 1 each by In Vit ro route Daily Use to check FSBS four times daily [id number] Start: 01-29-2025 End: 02-28-2025 Use as instructed [id number] Start: 04-08-2025 Functional Status Date Assessment Result Facility 05-11-2022 Functional Status N/A [facility] Clinical Notes 03-08-2022 to 05-12-2025 Pricilla Cortes NP - 05/12/2025 9:10 AM Levi Buckner LPN - 05/05/2025 9:10 AM LISA Kirby - 04/30/2025 2:00 PM EDTMaubrey Chowdary MA - 04/21/2025 3:20 PM EDT Note Date & Type Note Facility 05-12-2025 History of Presen t illness Narrative Reason [...] Diagnosis Date Noted Vaginal bleeding affecting early ([facility]) 11/06/2024 headache, antepartum ([facility]) 12/25/2024 Elevated blood pressure affecting , antepartum ([facility]) 01/16/2025 Insulin controlled gestational diabetes mellitus (GDM) in third trimester ([facility]) 04/21/2025 Multigravida of advanced maternal age in third trimester ([facility]) 04/21/2025 Hypertension 04/21/2025 Third trimester ([facility]) 04/21/2025 Resolved Ambulatory Problems Diagnosis Date Noted No Resolved Ambulatory Problems Past Medical History: Diagnosis Date ADHD (attention deficit hyperactivity disorder) Anxiety Gestational diabetes ([facility]) Insulin resistance PCOS (polycystic ovarian syndrome) HISTORY PAST MEDICAL HISTORY SOCIAL HISTORY Past Medical History: Diagnosis Date ADHD (attention deficit hyperactivity disorder) Anxiety Gestational diabetes ([facility]) Hypertension Insulin resistance PCOS (polycystic ovarian [...] nursing note reviewed. Exam conducted with a analytics director present. Vitals: Estimated body mass index is 34.52 kg/m as calculated from the following: Height as of 05/06/24: 5' 7 . Weight as of this encounter: 220 lb 6.4 oz. BP: 138/80 Patient's last menstrual period was 08/23/2024. ASSESSMENT & PLAN ICD-10-CM 1. 35 weeks gestation of ([facility]) Z3A.35 POCT urinalysis dipstick manually resulted 2. Third trimester ([facility]) Z34.93 POCT urinalysis dipstick manually resulted 3. High blood pressure affecting in third trimester, antepartum ([facility]) O16.3 4. Insulin controlled gestational diabetes mellitus (GDM) in third trimester ([facility]) O24.414 5. Multigravida of advanced maternal age in third trimester ([facility]) O09.523 6. induced hypertension, antepartum ([facility]) O13.9 Return OB: Patient presents today [...] for routine OB appointment. Patient continues glucose log. NPH and Regular Insulin as directed. Glucose in 90's in the am and 120-130's in the evening. Continues NST/BPP. Denies Headache, vision changes and no significant swelling. She has continued on bedrest and is doing well. Documented by Pricilla Cortes NP on behalf of: Pricilla Cortes NP documented in this encounter [facility] 05-05-2025 History of Presen t illness Narrative Reason [...] Diagnosis Date Noted Vaginal bleeding affecting early ([facility]) 11/06/2024 headache, antepartum ([facility]) 12/25/2024 Elevated blood pressure affecting , antepartum ([facility]) 01/16/2025 Insulin controlled gestational diabetes mellitus (GDM) in third trimester ([facility]) 04/21/2025 Multigravida of advanced maternal age in third trimester ([facility]) 04/21/2025 Hypertension 04/21/2025 Third trimester ([facility]) 04/21/2025 Resolved Ambulatory Problems Diagnosis Date Noted No Resolved Ambulatory Problems Past Medical History: Diagnosis Date ADHD (attention deficit hyperactivity disorder) Anxiety Gestational diabetes ([facility]) Insulin resistance PCOS (polycystic ovarian syndrome) HISTORY PAST MEDICAL HISTORY SOCIAL HISTORY Past Medical History: Diagnosis Date ADHD (attention deficit hyperactivity disorder) Anxiety Gestational diabetes ([facility]) Hypertension Insulin resistance PCOS (polycystic ovarian [...] nursing note reviewed. Exam conducted with a analytics director present. Vitals: Estimated body mass index is 33.85 kg/m as calculated from the following: Height as of 05/06/24: 5' 7 . Weight as of this encounter: 216 lb 1.9 oz. BP: 140/86 Patient's last menstrual period was 08/23/2024. ASSESSMENT & PLAN ICD-10-CM 1. 34 weeks gestation of ([facility]) Z3A.34 POCT urinalysis dipstick manually resulted 2. Third trimester ([facility]) Z34.93 POCT urinalysis dipstick manually resulted 3. High blood pressure affecting in third trimester, antepartum ([facility]) O16.3 4. induced hypertension, antepartum ([facility]) O13.9 5. Insulin controlled gestational diabetes mellitus (GDM) in third trimester ([facility]) O24.414 6. Multigravida of advanced maternal age in third trimester ([facility]) O09.523 7. Gestational diabetes mellitus (GDM), antepartum, gestational diabetes method of control unspecified ([facility]) O24.419 Patient presents today for a [...] Mik Borrego DO documented in this encounter [facility] 04-30-2025 History of Presen t illness Narrative [...] to check FSBS. Blood Glucose Monitoring Suppl ([facility] Glucometer) w/Device kit 1 kit, Does not [...] Diagnosis Date Noted Vaginal bleeding affecting early ([facility]) 11/06/2024 headache, antepartum ([facility]) 12/25/2024 Elevated blood pressure affecting , antepartum ([facility]) 01/16/2025 Insulin controlled gestational diabetes mellitus (GDM) in third trimester ([facility]) 04/21/2025 Multigravida of advanced maternal age in third trimester ([facility]) 04/21/2025 Hypertension 04/21/2025 Third trimester ([facility]) 04/21/2025 Resolved Ambulatory Problems Diagnosis Date Noted No Resolved Ambulatory Problems Past Medical History: Diagnosis Date ADHD (attention deficit hyperactivity disorder) Anxiety Gestational diabetes ([facility]) Insulin resistance PCOS (polycystic ovarian syndrome) HISTORY PAST MEDICAL HISTORY SOCIAL HISTORY Past Medical History: Diagnosis Date ADHD (attention deficit hyperactivity disorder) Anxiety Gestational diabetes ([facility]) Hypertension Insulin resistance PCOS (polycystic ovarian [...] PLAN ICD-10-CM 1. 33 weeks gestation of ([facility]) Z3A.33 POCT urinalysis dipstick manually resulted 2. Third trimester ([facility]) Z34.93 POCT urinalysis dipstick manually resulted 3. High blood pressure affecting in third trimester, antepartum ([facility]) O16.3 Patient presents today for headaches, [...] of: LISA Lomeli documented in this encounter [facility] 04-21-2025 History of Presen t illness Narrative [...] Diagnosis Date Noted Vaginal bleeding affecting early ([facility]) 11/06/2024 headache, antepartum ([facility]) 12/25/2024 Elevated blood pressure affecting , antepartum ([facility]) 01/16/2025 Resolved Ambulatory Problems Diagnosis Date Noted No Resolved Ambulatory Problems Past Medical History: Diagnosis Date ADHD (attention deficit hyperactivity disorder) Anxiety Gestational diabetes ([facility]) Hypertension Insulin resistance PCOS (polycystic ovarian syndrome) HISTORY PAST MEDICAL HISTORY SOCIAL HISTORY Past Medical History: Diagnosis Date ADHD (attention deficit hyperactivity disorder) Anxiety Gestational diabetes ([facility]) Hypertension Insulin resistance PCOS (polycystic ovarian [...] ASSESSMENT & PLAN ICD-10-CM 1. Third trimester ([facility]) Z34.93 2. 32 weeks gestation of ([facility]) Z3A.32 Return OB: Patient presents today [...] Mik Borrego DO documented in this encounter [facility] 04-14-2025 History of Presen t illness [...] Diagnosis Date Noted Vaginal bleeding affecting early ([facility]) 11/06/2024 headache, antepartum ([facility]) 12/25/2024 Elevated blood pressure affecting , antepartum ([facility]) 01/16/2025 Resolved Ambulatory Problems Diagnosis Date Noted No Resolved Ambulatory Problems Past Medical History: Diagnosis Date ADHD (attention deficit hyperactivity disorder) Anxiety Gestational diabetes ([facility]) Hypertension Insulin resistance PCOS (polycystic ovarian syndrome) HISTORY PAST MEDICAL HISTORY SOCIAL HISTORY Past Medical History: Diagnosis Date ADHD (attention deficit hyperactivity disorder) Anxiety Gestational diabetes ([facility]) Hypertension Insulin resistance PCOS (polycystic ovarian [...] nursing note reviewed. Exam conducted with a analytics director present. Vitals: Estimated body mass index is 33.8 kg/m as calculated from the following: Height as of 05/06/24: 5' 7 . Weight as of this encounter: 215 lb 12.8 oz. BP: 126/82 Patient's last menstrual period was 08/23/2024. ASSESSMENT & PLAN ICD-10-CM 1. Third trimester ([facility]) Z34.93 POCT urinalysis dipstick manually resulted 2. 31 weeks gestation of ([facility]) Z3A.31 POCT urinalysis dipstick manually resulted Return [...] Mik Borrego DO documented in this encounter [facility] 04-08-2025 History of Presen t illness [...] Diagnosis Date Noted Vaginal bleeding affecting early ([facility]) 11/06/2024 headache, antepartum ([facility]) 12/25/2024 Elevated blood pressure affecting , antepartum ([facility]) 01/16/2025 Resolved Ambulatory Problems Diagnosis Date Noted No Resolved Ambulatory Problems Past Medical History: Diagnosis Date ADHD (attention deficit hyperactivity disorder) Anxiety Gestational diabetes ([facility]) Hypertension Insulin resistance PCOS (polycystic ovarian syndrome) HISTORY PAST MEDICAL HISTORY SOCIAL HISTORY Past Medical History: Diagnosis Date ADHD (attention deficit hyperactivity disorder) Anxiety Gestational diabetes ([facility]) Hypertension Insulin resistance PCOS (polycystic ovarian [...] nursing note reviewed. Exam conducted with a analytics director present. Vitals: Estimated body mass index is 33.36 kg/m as calculated from the following: Height as of 05/06/24: 5' 7 . Weight as of this encounter: 213 lb. BP: 122/78 Patient's last menstrual period was 08/23/2024. ASSESSMENT & PLAN ICD-10-CM 1. Third trimester ([facility]) Z34.93 POCT urinalysis dipstick manually resulted 2. 30 weeks gestation of ([facility]) Z3A.30 3. Gestational diabetes mellitus (GDM), antepartum, gestational diabetes method of control unspecified ([facility]) O24.419 insulin NPH, Isophane, (HumuLIN N,NovoLIN N) [...] Mik Borrego DO documented in this encounter [facility] 03-24-2025 History of Presen t illness [...] Mik Borrego DO documented in this encounter [facility] 02-24-2025 History of Presen t illness [...] by LISA Lomeli documented in this encounter [facility] 02-17-2025 Note Echocardiology Procedure Exam Date/Time Accession # Ordering Dr. Benitez Transthoracic 02/17/2025 13:32 EDT [id number] Mik BORREGO DO Complete CPT code 36513 12246 Reason for Exam (Echo Transthoracic Complete) Z34.92, O16.9, O13.9, O09.529 Report [facility] [address] [place] [address] Adult Echocardiogram Report Name: JULISSA WEEMS Study Date: 02/17/2025 12:56 PM BP: 131/88 mmHg Patient Location: [facility] Ambulatory(s) [facility] [place] HR: 84 : 1990 Gender: Female Height: 67 in Age: 34 yrs Ethnicity: [facility] Weight: 211 lb Reason For Study: Z34.92, [...] Tao MD Transcribed by: MEGAN Technologist: GENE [facility] 02-04-2025 Miscellaneous Notes Spoke with patient to reschedule DBE, she took @ [place] so we will not follow her blood sugars. [facility]25 Telephone encounter Note Spoke with patient to reschedule DBE, she took @ [facility] so we will not follow her blood sugars. [facility] History of Presen t illness [...] nursing note reviewed. Exam conducted with a analytics director present. Vitals: Estimated body mass index is [...] today and no protien in urine today. MFM recommend baseline EKG and BNP, CBC, CMP, uric acid and lactate. 24 hour urine protein and cardiac echo orders will be given today. Documented by Pricilla Cortes NP on behalf of: Mik Borrego DO documented in this encounter [facility] 01-21-2025 Miscellaneous Notes I tried to schedule pt sooner for DE,but pt refused all the days till 02-10, documented in this encounter [facility] 01-21-2025 Telephone encounter Note I tried to schedule pt sooner for DE,but pt refused all the days till 02-10, [facility] 01-21-2025 History of Presen t [...] Baby Boy: Cornelio Patient is a family [employer]. I have reviewed the pertinent available patient records including but not limited to notes, labs and images. PAST OBSTETRICAL HISTORY: OB History Para Term AB Living 1 SAB IAB Ectopic Multiple Live Births # Outcome Date GA Lbr Juniro/2nd Weight Sex Type Anes PTL Lv 1 [...] TESTS AND ULTRASOUND REPORTS: Referral records and [facility] chart were reviewed Pertinent Ultrasound findings are [...] previously recommended threshold of 160/110. Reference: PMID: [id number], 2021. Blood pressures do increase as progresses [...] preeclampsia prevention as is recommended by the [place] [employer]ne[employer] Committee Opinion No. 743. [...] times daily, fasting and 1 hour postprandials [facility] nutrition and diabetes counseling recommend obtaining baseline [...] echocardiogram, attempt completion in 4-6 weeks through [facility] serial growth ultrasounds every 4 weeks following completion of level 2 anatomy US, through [facility] Recommend twice weekly testing starting at [...] developing diabetes later on. Follow up in [facility] in 2 weeks DISPOSITION: At this point the patient is in complete care of her membership secretary. Patient does have ultrasound and office visit [...] procedures Referring and communicating with other health respiratory care practitioner (not separately reported) Documenting clinical information in the electronic or other health record Independently interpreting results (not separately reported) and communicating results to the patient/family/caregiver Bruce Perez MD Maternal- Medicine [facility] [address] [place] [address] [facility], the CDC, and other organizations representing maternal and public health professionals recommend that , , and lactating people and those considering receive the COVID-19 vaccination. Vaccination is the best method to reduce maternal and complications of SARS-CoV-2 infection. This document was created with [employer] technology. Though I make every effort to review the dictation as it is transcribed, on occasion the spoken word can be misinterpreted by the technology leading to inappropriate words, phrases, or sentences. This note is addressed to the requesting provider as a consultation for clinical guidance. Specific medical abbreviations are occasionally used and those are generally approved by the [place]?Board of?Obstetrics and?Gynecology?as well as?Sahara luis abbreviations. The above plan of care was based solely on the diagnoses for which a consultation was requested. ?More frequent testing may be indicated based on her other medical/obstetrical conditions. The management of other or medical conditions is beyond the scope of requested consultation and will continue to be followed by the primary membership secretary or primary care provider. Note to patient: [...] No Have you been seen here at [facility] in a previous ? No Recent ER visits or hospitalizations? No Bring blood sugar log or meter with you today? (Please bring them with you for every visit at [facility]) N/A Flu vaccine (Aug-December)? Any concerns that you would like me to mention to the provider today? No documented in this encounter [facility] 01-17-2025 Miscellaneous Notes Voicemail left on nurse line requesting labs and any genetic testing results be faxed to our office. documented in this encounter [facility] 01-17-2025 Telephone encounter Note Voicemail left on nurse line requesting labs and any genetic testing results be faxed to our office. [facility] 12-23-2024 History of Presen t [...] of: LISA Lomeli documented in this encounter [facility] 11-25-2024 History of Presen t illness [...] or undercooked meat, and stay away from [facility]. Patient has been consulted regarding any further do's and don'ts of . Patient voiced understanding and all questions and concerns were answered. Patient will be sent to [facility] for advanced maternal age and has decided to have [facility] with [facility] rather than [facility] No orders of the defined types were placed in this encounter. Follow Up: Patient is to return in 4 weeks for routine OB appointment. Documented by Juanis Esparza MA on behalf of: Mik Borrego DO documented in this encounter [facility] 10-24-2024 History of Presen t illness [...] Diagnosis Date ADHD (attention deficit hyperactivity disorder) ([facility]) Anxiety Insulin resistance PCOS (polycystic ovarian syndrome) [...] or undercooked meat, and stay away from [facility]. Patient has also been advised [...] Larisa Chowdary MA documented in this encounter [facility] 09-16-2024 History of Presen t illness [...] nursing note reviewed. Exam conducted with a analytics director present. Vitals: Estimated body mass index is [...] Mik Borrego DO documented in this encounter [facility] 10-03-2022 Hospital Discharg e instructions Patient [...] water added (diluted fruit juice). Eat bland, rlqs-uo-cebkso foods in small amounts as you are able. These foods include bananas, applesauce, rice, lean meats, toast, and crackers. Avoid fluids that contain a lot of sugar or caffeine, such as energy drinks, sports drinks, and soda. Avoid alcohol. Avoid spicy or fatty foods. General instructions Take bctq-mdz-gnajxxy and prescription medicines only as told by your health care provider. Drink enough fluid to keep your urine pale yellow. Wash your hands often using soap and water. If soap and water are not available, use hand superintendent pressure. Make sure that all people in your [...] eating and drinking to prevent dehydration. Take oruv-ecd-wetbyyd and prescription medicines only as told by [...] 10/09/2006 Document Revised: 01/31/2020 Document Reviewed: 03/19/2019 [employer] Patient Education 2020 [employer] 10/03/2022 13:10:32 Acute Pain, Adult Acute Pain, [...] Follow these instructions at home: Medicines Take zryj-ymo-vlulipr and prescription medicines only as told by [...] pain is severe. ?Do not take other wuon-nzx-xvgdogv pain medicines in addition to prescription pain [...] grains, and fresh fruits and vegetables. ?Take tign-fwi-doqouhp or prescription medicines. ?Limit foods that are [...] or you are no longer ill. Take jjrw-eha-ajhjgbg and prescription medicines only as told by [...] 10/23/2016 Document Revised: 02/24/2020 Document Reviewed: 02/24/2020 [employer] Patient Education 2020 [employer] 10/03/2022 13:10:29 Dysmenorrhea Dysmenorrhea Dysmenorrhea refers to [...] to help relieve pain. General instructions Take tgej-fjh-emvvclb and prescription medicines only as told by [...] 10/09/2006 Document Revised: 09/21/2018 Document Reviewed: 11/11/2017 [employer] Patient Education 2020 [employer]. 10/03/2022 13:10:26 Polycystic Ovarian Syndrome Polycystic Ovarian [...] produces. Follow these instructions at home: Take gjlm-nzc-rjiigmu and prescription medicines only as told by [...] 02/02/2006 Document Revised: 09/21/2018 Document Reviewed: 03/26/2017 [employer] Patient Education 2020 [employer]. 10/03/2022 13:10:25 Ovarian Cyst Ovarian Cyst An [...] cyst. Follow these instructions at home: Take nzit-nso-jgmgpqx and prescription medicines only as told by [...] 10/09/2006 Document Revised: 01/07/2019 Document Reviewed: 03/12/2017 [employer] Patient Education 2020 [employer]. Follow Up Care 10/03/2022 08:07:39 With:WASHINGTON CONNERDONA Address: [address] [place] [address] When: Unknown [facility] [place] 05-12-2022 Hospital Discharg e instructions Patient Education [...] Follow these instructions at home: Medicines Take fkrn-uca-aqupdhf and prescription medicines only as told by [...] to keep your urine pale yellow. ?Take wxjv-ypx-rfxljjn or prescription medicines. ?Eat foods that are [...] and water are not available, use hand superintendent pressure. ?Change your dressing as told by your [...] 10/09/2006 Document Revised: 04/11/2019 Document Reviewed: 04/11/2019 [employer] Patient Education 2020 [employer]. 05/12/2022 14:04:00 Laparoscopic Appendectomy, Adult Laparoscopic Appendectomy, [...] including vitamins, herbs, eye drops, creams, and jhou-euz-ykooggy medicines. Use of steroids (by mouth or [...] provider tells you to take them. Taking sgdh-gzv-vjnsiyn medicines, vitamins, herbs, and supplements. General instructions [...] 05/23/2005 Document Revised: 04/11/2019 Document Reviewed: 04/11/2019 [employer] Patient Education 2020 [employer]. 05/12/2022 14:03:59 Appendicitis, Adult Appendicitis, Adult Appendicitis [...] to care for your incision. Medicines Take bjzp-fuz-bykwuyw and prescription medicines only as told by [...] to keep your urine pale yellow. ?Take ssnu-kvg-ykuyddl or prescription medicines. ?Eat foods that are [...] 10/09/2006 Document Revised: 03/27/2019 Document Reviewed: 03/27/2019 [employer] Patient Education [employer]. Follow Up Care 05/11/2022 22:41:15 With:Raman Russell DO Address: [address] [place] [phone] When: Unknown Comments:Call for followup appointment [facility] 05-12-2022 Evaluation + Plan note Extrac aria [...] Adult Author:Wiliam Diaz Jr., DO Date:05/12/22 Plan [place] [employer] Anesthesiologists (ASA) physical status classification: [...] Date:06/14/2022 10:40:00 AM Scheduled Provider:Helene HAMILTON CNP Location:[facility] Appointment Type:FM Open Diagnostic Tests Pending * Basic Metabolic Panel 05/13/22 * CBC w/ Auto Diff 05/13/22 * PT & PTT 05/13/22 [facility]17[facility]2022 Hospital Discharge instructions Patient Education 03/08/2022 12:47:01 [...] height. This can be done either in [place] or metric measurements. Note that charts are available to help you find your BMI quickly and easily without having to do these calculations yourself. To calculate your BMI in [place] measurements, your health care provider will: [...] medical problems. BMI can be measured using [place] measurements or metric measurements. To interpret your [...] 06/20/2005 Document Revised: 09/21/2018 Document Reviewed: 08/22/2018 [employer] Patient Education 2020 [employer]. 03/08/2022 12:46:57 Health Maintenance, Female Health Maintenance, [...] 04/23/2012 Document Revised: 10/02/2019 Document Reviewed: 10/02/2019 [employer] Patient Education 2020 [employer]. Follow Up Care 02/21/2022 15:20:41 With:Helene HAMILTON CNP Address: [address] [place], [place] [id number]- When:Within 1 Month(s) [facility] [employer] + Plan note Future Appointments Appointment Date:04/05/2022 11:20:00 AM Scheduled Provider:Helene HAMILTON CNP Location:[facility] Appointment Type:FM Open [facility] Evaluation + Plan note Future Appointments Appointment Date:02/17/2025 01:00:00 PM Scheduled Provider: [facility] Type:CV Echo () Future Scheduled Tests Radiology* Echo Transthoracic Complete 02/17/25 [facility] evaluation note* Diagnosis Well woman exam with routine [...] of control unspecified documented in this encounter [facility] Diagnosis Gestational diabetes mellitus (GDM), antepartum, gestational diabetes method of control unspecified Multigravida of advanced maternal age in third trimester Third trimester state, incidental 28 weeks gestation of [facility] Diagnosis Chronic hypertension affecting - Primary Gestational diabetes mellitus (GDM), antepartum, gestational diabetes method of control unspecified documented in this encounter [facility]* Diagnosis Third trimester ([facility]) [...] , antepartum [facility] Diagnosis 34 weeks gestation of ([facility]) Third trimester ([facility]) state, incidental High blood pressure affecting in third trimester, antepartum ([facility]) induced hypertension, antepartum ([facility]) Transient hypertension of , antepartum Gestational diabetes mellitus (GDM), antepartum, gestational diabetes method of control unspecified ([facility]) Multigravida of advanced maternal age in third trimester ([facility]) [facility] Diagnosis 35 weeks gestation of ([facility]) Third trimester ([facility]) state, incidental High blood pressure affecting in third trimester, antepartum ([facility]) Insulin controlled gestational diabetes mellitus (GDM) in third trimester ([facility]) Multigravida of advanced maternal age in third trimester ([facility]) induced hypertension, antepartum ([facility]) Transient hypertension of , antepartum documented in this encounter [facility] Narrative No data available for this section [facility] Hospital Discharge instructions No data available for this section [facility] Primary Care InstructionsNot on filedocumented in this [...] note No data available for this section [facility] Summary Purpose Family History No Family History [...] section and content) DATE CREATED AUTHOR 05/26/2020 [facility] DATE CREATED AUTHOR AUTHOR'S ORGANIZ ATION 01/28/2025 Ramírez Scar [facility] DATE CREATED AUTHOR AUTHOR'S ORGANIZ ATION 02/06/2025 Ramírez Vieques [facility] DATE CREATED AUTHOR AUTHOR'S ORGANIZ ATION 02/26/2025 Florence Scar [facility] DATE CREATED AUTHOR AUTHOR'S ORGANIZ ATION 04/01/2025 [facility] DATE CREATED AUTHOR AUTHOR'S ORGANIZ ATION 05/08/2025 [facility] EPIC Care Team (unrecognized sect ion and content) Personnel Name: Helene HAMILTON CNP Address: [address] [place] [address] Personnel Name: Helene HAMILTON CNP Address: [address] [place] [address] Personnel Name: Helene HAMILTON CNP Address: Address: [address] [place] [address] Personnel Name: Helene HAMILTON CNP Address: Address: [address] [place] [address] Personnel Name: Helene HAMILTON CNP Address: Address: [address] [place] [address] Personnel Name: NONE, XXXX Address: [facility] Personnel Name: NONE, XXXX Address: [place] Personnel Name: NONE, XXXX Address: [facility] Reason for Visit (unrecogniz ed [...] BE BASED ON THE PRIMARY CLINICAL RECORDS. [facility]. provides no warranty or guarantee of the accuracy or completeness of information in this document.
[2025-05-13 08:23] VITALS: BP 139/87; PULSE 86
== END 2025-05-13 08:55 | disposition home or self-care (01) ==
LOC: US 07:57 → FBC 08:00
PROVIDERS: Visit Provider Obstetrics & Gynecology
DX: O24.419 Gestational diabetes mellitus in pregnancy, unspecified control (principal)
CPT/HCPCS: 76818

== ENCOUNTER 2025-05-16 16:50 | Inpatient (IN) | payer BC, SELFPAY ==
--- OUTSIDE RECORDS SUMMARY | 2013-09-18 06:00 | XMS_ITS | Continuity of Care Document ---
Author Organization [facility] Address [address] [place] [address], [address] [place] [address] Phone Care Team Providers Care Ceo & Board Director Name Role Phone Eva Arias MD Unavailable [...] Active Procedures Procedure Date Office Visit - RADIOISOTOPE TECHNOLOGIST Extended Advance Directives Directive Yes / No Effective Date File Name No Information Encounters Encounter Description Practice Location Reason(s) For Visit Diagnoses Date Provider Providers Copied on Encounter Office Visit - RADIOISOTOPE TECHNOLOGIST Extended [facility], [address] [place] [address], [address], [place], [place], [id number], tel:[phone] [facility] triple valve tester consult (chief complaint) Family planningAcne 3 Hugo Velasquez. [address] [place] [address], [address], [place], [id number]. tel:[phone] Referring Provider: Eva Arias MD, [address] [place] [address] [address], [place], [address]. tel:[phone] Family History Family Member Type Diagnosis Age At Onset No Information Payers Payer name Insurance type Covered constitution party ID Authoriza tidon(s) Prime / Durga CI [id number] Social History Type Description Quantity Date Captured [...] For Visit From encounter dated '09/18/2013 10:00'. triple valve tester consult (chief complaint). Description: The symptoms are [...] Date Complaint History Of Prese nt Illness triple valve tester consult The symptoms are reported as being [...] Mental Status Date Cognitive Assessment Orientation - [place] ed to time, place, person, situation. Patient Care Teams Name Effective Dates (start - stop) Status Members No Information
--- OUTSIDE RECORDS SUMMARY | 2024-05-20 04:15 | XMS_ITS ---
Author Organization [facility] Address [address] [facility] [place] [address] Care Team Providers Care Technical Support Associate Name Role Phone Olimpia Cruz Primary Care Provider Steven Shane Unavailable [phone] REASON FOR VISIT MED RECHECK-AC Encounters Encounter Location Date Provider Diagnosis [facility] [address] [place] [address] 2023 Steven Shane Plan Of Treatment No Information Progress Notes * SEDALEDOB:1990 (34 yo F)Acc No.[id number]:05/20/2024 Behavioral Health Patient: LE ALCALA Provider: LARRY Sanders :1990 A ge:33 Y S ex:Female Date:05/20/2024 Address:[address] [place], [place] [phone] Pcp:Olimpia Cruz Subjective: * Chief Complaints: * 1 . MED RECHECK-AC. * Medical History: Objective: * Vitals: Assessment: Plan: * Treatment: * Images: * Electronic signature of LARRY Linder on 05/16/2025 at 01:55 PM EDT Sign off status: Pending * Provider: LARRY Sanders Date: 05/20/2024 Generated for Printi ng/Faxing/eTransmitting on: 05/16/2025 01:55 PM EDT
--- OUTSIDE RECORDS SUMMARY | 2024-06-04 10:45 | XMS_ITS ---
Author Organization [facility] es Address [address] [facility] [address] Care Team Providers Care Research Epidemiologist Name Role Phone Olimpia Cruz Primary Care Provider Diane Perdomo [phone] REASON FOR VISIT DISCUSS ASTHMA FLARE-AC Encounters Encounter Location Date Provider Diagnosis [address] [place] [address] 06/04/2024 Diane Perdomo Plan Of Treatment No Information Progress Notes * LE STACKDOB:1990 (34 yo F)Acc No.[id number]:06/04/2024 Progress Notes Patient: LE ALCALA Appointment Provider: Jose Perdomo NP :1990 A ge:33 Y S ex:Female Date:06/04/2024 Address:[address] [place], [place] [phone] Pcp:Olimpia Cruz Subjective: * Chief Complaints: * 1 . DISCUSS ASTHMA FLARE-AC. * Medical History: Objective: * Vitals: Assessment: Plan: * Treatment: * Images: * Electronic signature of Ryan Perdomo CNP on 05/16/2025 at 01:55 PM EDT Sign off status: Pending * Appointment Provider: Jose Perdomo NP Date: 06/04/2024 Generated for Printi ng/Faxing/eTransmitting on: 05/16/2025 01:55 PM EDT
--- OUTSIDE RECORDS SUMMARY | 2025-05-05 09:10 | XMS_ITS | Encounter Summary ---
Author Organization [facility] Address [address] [place] [address] Care Team Providers Care Speech Language Pathologist Assistant Name Role Phone Unavailable Primary Care Provider Unavailabl e Reason for Visit * Reason Comments Routine Visit Encounter Details Date Type Department Care Team ([facility] Contact Info) Description 05/05/2025 9:10 AM EDT Routine [facility] OB [address] [place] [phone] Mik Borrego, DO [address] [place] [address] 34 weeks gestation of ([facility]); Third trimester ([facility]-HCC); High blood pressure affecting in third trimester, antepartum ([facility]-HCC); induced hypertension, antepartum ([facility]-HCC); Insulin controlled gestational diabetes mellitus (GDM) in third trimester ([facility]-HCC); Multigravida of advanced maternal age in third trimester ([facility]-HCC); Gestational diabetes mellitus (GDM), antepartum, gestational diabetes method of control unspecified ([facility]) Social History Tobacco Use Types Packs/Day Years [...] this encounter Progress Notes * Kimi Buckner, POWER MACHINE OPERATOR - 05/05/2025 9:10 AM EDT Reason for [...] Diagnosis Date Noted Vaginal bleeding affecting early ([facility]) 11/06/2024 headache, antepartum ([facility]) 12/25/2024 Elevated blood pressure affecting , antepartum ([facility]) 01/16/2025 Insulin controlled gestational diabetes mellitus (GDM) in third trimester ([facility]) 04/21/2025 Multigravida of advanced maternal age in third trimester ([facility]) 04/21/2025 Hypertension 04/21/2025 Third trimester ([facility]) 04/21/2025 Resolved Ambulatory Problems Diagnosis Date Noted No Resolved Ambulatory Problems Past Medical History: Diagnosis Date ADHD (attention deficit hyperactivity disorder) Anxiety Gestational diabetes ([facility]) Insulin resistance PCOS (polycystic ovarian syndrome) HISTORY PAST MEDICAL HISTORY SOCIAL HISTORY Past Medical History: Diagnosis Date ADHD (attention deficit hyperactivity disorder) Anxiety Gestational diabetes ([facility]) Hypertension Insulin resistance PCOS (polycystic ovarian [...] nursing note reviewed. Exam conducted with a weigher and grader present. Vitals: Estimated body mass index is 33.85 kg/m?? as calculated from the following: Height as of 05/06/24: 5' 7 . Weight as of this encounter: 216 lb 1.9 oz. BP: 140/86 Patient's last menstrual period was 08/23/2024. ASSESSMENT & PLAN ICD-10-CM 1. 34 weeks gestation of ([facility]) Z3A.34 POCT urinalysis dipstick manually resulted 2. Third trimester ([facility]) Z34.93 POCT urinalysis dipstick manually resulted 3. High blood pressure affecting in third trimester, antepartum ([facility]) O16.3 4. induced hypertension, antepartum ([facility]) O13.9 5. Insulin controlled gestational diabetes mellitus (GDM) in third trimester ([facility]) O24.414 6. Multigravida of advanced maternal age in third trimester ([facility]) O09.523 7. Gestational diabetes mellitus (GDM), antepartum, gestational diabetes method of control unspecified ([facility]) O24.419 Patient presents today for a routine [...] AM EDT Routine [facility] [address] [place] [address] Mik Borrego DO [address] [place] [address] documented as of this encounter Procedures Procedure Name Priority Date/Time Associated Diagnosis Comments POCT URINALYSIS DIPSTICK Routine 05/05/2025 10:56 AM EDT 34 weeks gestation of ([facility]) Third trimester ([facility]) documented in this encounter Results * [...] Visit Diagnoses Diagnosis 34 weeks gestation of ([facility]) Third trimester ([facility]) state, incidental High blood pressure affecting in third trimester, antepartum ([facility]) induced hypertension, antepartum ([facility]) Transient hypertension of , antepartum Gestational diabetes mellitus (GDM), antepartum, gestational diabetes method of control unspecified ([facility]) Multigravida of advanced maternal age in third trimester ([facility]) documented in this encounter
--- OUTSIDE RECORDS SUMMARY | 2025-05-12 09:10 | XMS_ITS | Encounter Summary ---
Author Organization [facility] Address [address] [place] [address] Care Team Providers Care Stripper Opaquer Name Role Phone Unavailable Primary Care Provider Unavailabl e Reason for Visit * Reason Comments Routine Visit Encounter Details Date Type Department Care Team ([facility] Contact Info) Description 05/12/2025 9:10 AM EDT Routine [facility] OB [address] [phone] Mik Borrego, DO [address] [place] [address] 35 weeks gestation of (HHS-HCC); Third trimester [...] to check FSBS. Blood Glucose Monitoring Suppl ([employer] Glucometer) w/Device kit 1 kit, Does not [...] Diagnosis Date Noted Vaginal bleeding affecting early ([facility]) 11/06/2024 headache, antepartum ([facility]) 12/25/2024 Elevated blood pressure affecting , antepartum ([facility]) 01/16/2025 Insulin controlled gestational diabetes mellitus (GDM) in third trimester ([facility]) 04/21/2025 Multigravida of advanced maternal age in third trimester ([facility]) 04/21/2025 Hypertension 04/21/2025 Third trimester ([facility]) 04/21/2025 Resolved Ambulatory Problems Diagnosis Date Noted No Resolved Ambulatory Problems Past Medical History: Diagnosis Date ADHD (attention deficit hyperactivity disorder) Anxiety Gestational diabetes ([facility]) Insulin resistance PCOS (polycystic ovarian syndrome) HISTORY PAST MEDICAL HISTORY SOCIAL HISTORY Past Medical History: Diagnosis Date ADHD (attention deficit hyperactivity disorder) Anxiety Gestational diabetes ([facility]) Hypertension Insulin resistance PCOS (polycystic ovarian syndrome) [...] nursing note reviewed. Exam conducted with a neurology hospitalist present. Vitals: Estimated body mass index is 34.52 kg/m?? as calculated from the following: Height as of 7/15/24: 5' 7 . Weight as of this encounter: 220 lb 6.4 oz. BP: 138/80 Patient's last menstrual period was 08/23/2024. ASSESSMENT & PLAN ICD-10-CM 1. 35 weeks gestation of ([facility]) Z3A.35 POCT urinalysis dipstick manually resulted 2. Third trimester ([facility]) Z34.93 POCT urinalysis dipstick manually resulted 3. High blood pressure affecting in third trimester, antepartum ([facility]) O16.3 4. Insulin controlled gestational diabetes mellitus (GDM) in third trimester ([facility]) O24.414 5. Multigravida of advanced maternal age in third trimester ([facility]) O09.523 6. induced hypertension, antepartum ([facility]) O13.9 Return OB: Patient presents today for [...] [facility] [address] [place] [phone] Mik Borrego, DO [address] [place], [place] [phone] documented as of this encounter Procedures Procedure Name Priority Date/Time Associated Diagnosis Comments POCT URINALYSIS DIPSTICK Routine 05/12/2025 9:24 AM EDT 35 weeks gestation of ([facility]) Third trimester ([facility]) documented in this [...] Visit Diagnoses Diagnosis 35 weeks gestation of ([facility]) Third trimester ([facility]) state, incidental High blood pressure affecting in third trimester, antepartum ([facility]) Insulin controlled gestational diabetes mellitus (GDM) in third trimester ([facility]) Multigravida of advanced maternal age in third trimester ([facility]) induced hypertension, antepartum ([facility]) Transient hypertension of , antepartum documented in this encounter
[2025-05-16] VITALS (23 sets, daily range): BP systolic 125–176; BP diastolic 75–104; PULSE 94–122; TEMP 35.8–36.3
--- OUTSIDE RECORDS SUMMARY | 2025-05-16 13:55 | XMS_ITS | Encounter Summary ---
Author Organization [facility] Address [address] [place] [address] Care Team Providers Care Head Sawyer Automatic Name Role Phone Unavailable Primary Care Provider Unavailabl e Encounter Details Date Type Department Care Team (Late st Contact Info) Description 01/22/2025 Abstract [facility] [address] [place] [address] Mik Borrego, DO [address], [facility] Social History Tobacco Use Types [...] [facility] OB [address] [place] [id number] Mik Borrego, DO [address], [facility] documented as of this encounter Visit Diagnoses Not on filedocumented in this encounter
--- OUTSIDE RECORDS SUMMARY | 2025-05-16 13:55 | XMS_ITS | Clinical Summary ---
Author Organization [employer] [facility] Address [id number] [address] [place] [address] Care Team Providers Care Sped Teacher Name Role Phone Unavailable Primary Care [...] 04/01/2025 Orders Only Maternal- Medicine at [facility] [address] [place] [address] Michelle Ashraf RN Chronic hypertension affecting (Primary Dx); Gestational diabetes mellitus (GDM), antepartum, gestational diabetes method of control unspecified 03/31/2025 10:39 AM EDT - 03/31/2025 11:59 PM EDT Hospital Encounter [facility] US Imaging [address] [place] [address] Chronic hypertension affecting ; Advanced maternal age in multigravida, second trimester; Gestational diabetes mellitus (GDM), antepartum, gestational diabetes method of control unspecified Discharge Disposition: Home 03/31/2025 Travel 03/04/2025 Orders Only Maternal- Medicine at [facility] [address] [place] [address] Oralia Elliott CMA Chronic hypertension affecting (Primary Dx); Advanced maternal age in multigravida, second trimester; Gestational diabetes mellitus (GDM), antepartum, gestational diabetes method of control unspecified 03/03/2025 10:32 AM EDT - 03/03/2025 11:59 PM EDT Hospital Encounter [facility] US Imaging [address] [place] [address] Chronic hypertension affecting ; Advanced maternal age [...] Procedure Name Priority Date/Time Associated Diagnosis Comments [facility] OB FOLLOW-UP, 1 FETUS Routine 03/31/2025 11:47 [...] period is included. Anatomical Region Laterality Modality OB-APPEALS NURSE Ultrasound 03/31/2025 11:2 5 AM EDT Narrative 03/31/2025 1:02 PM EDT NAME: SEDA LUJAN : 1990 SEX: F Accession Number: [id number] ORDERING PHYSICIAN: LORENZA RAGSDALE REFERRING PHYSICIAN: NEHA CAMPBELL Coding ----- --------- Procedures 44875: Follow-up Ultrasound, per fetus Indication ----- --------- Gestational diabetes, Chronic hypertension affecting , Obesity in , AMA- Supervision of elderly History ----- --------- OB History 1. Para 0 [id number] Maternal Assessment ----- --------- Physical Exam Height [...] EFW (oz) 12 oz EFW by: Hadlock ([id number]) Extended Tibia 50.8 mm 30w 2d 75% Santhosh Calender Supervisor 4.3 mm CM 4.6 mm 3% Nicolaides [...] LUJAN : 1990 SEX: F Accession Number: [id number] ORDERING PHYSICIAN: LORENZA RAGSDALE REFERRING PHYSICIAN: NEHA CAMPBELL Coding ----- --------- Procedures 40428: Follow-up Ultrasound, per fetus Indication ----- --------- Gestational diabetes, Chronic hypertension affecting , Obesityin , AMA- Supervision of elderly History ----- --------- OB History 1. Para 0 [id number] Maternal Assessment ----- --------- Physical Exam Height [...] EFW (oz) 12 oz EFW by: Hadlock ([id number]) Extended Tibia 50.8 mm 30w 2d 75% Santhosh Calender Supervisor 4.3 mm CM 4.6 mm 3% Nicolaides [...] byprimary OB provider unless otherwise specified by [facility]. Results forwarded to ordering provider so they can follow up with thepatient as necessary. us Lorenza Ragsdale MD [facility] ORDERABLES Final Re sult from Last 3 Months Insurance [facility]
--- OUTSIDE RECORDS SUMMARY | 2025-05-16 13:55 | XMS_ITS | Encounter Summary ---
Author Organization [facility] Address [address] [place] [address] Care Team Providers Care Dolly Pusher Name Role Phone Unavailable Primary Care Provider Unavailabl e Encounter Details Date Type Department Care Team (Late st Contact Info) Description 05/07/2025 Clinisync Result Encounter [facility] External Department Unsolicited Neha Borrego, DO [address] [place] [address] Social History Tobacco Use Types Packs/Day Years [...] Routine [facility] [address] [place] [phone] Neha Borrego, DO [address] [place] [address] documented as of this encounter Procedures Procedure Name Priority Date/Time Associated Diagnosis Comments US OB BPP W NON-STRESS 05/07/2025 12:17 PM EDT documented in this encounter Results * US OB BPP W NON-STRESS (05/07/2025 12:17 PM EDT) Anatomical Region Laterality Modality Other 05/07/2025 12:1 7 PM EDT Narrative 05/07/2025 12:20 PM EDT [address] [address] Ultrasound Report Signed Patient: JULISSA WEEMS MR#: [id number] : 1990 Acct:[id number] Age/Sex: 34 / F ADM Date: 05/07/25 Loc: US Attending Dr: Neha Borrego D.O. Ordering Physician: Neha Borrego D.O. Date of Service: 05/07/25 Procedure(s): US OB BPP w non-stress Accession Number(s): [id number] cc: Neha Borrego D.O.; Physician,Non-Staff Dileep [address] [address] Patient Name: JULISSA WEEMS MRN: [facility]:[id number] date: 1990 Sex: F Assigned Patient Location: US Current Patient Location: Accession/Order Number: [id number] Exam Date: 05/07/2025 12:16 Report Date: 05/07/2025 [...] Olivares M.D. 05/07/2025 12:17 PM Dictation Location: [place] [address] Electronically authenticated by: [id number] Y Date: 05/07/2025 12:17 Dictated By: Mariam Olivares M.D. Signed By: 05/07/25 1220 DD/ 1217 TD/TT: Sql Consultant: Procedure Note Radiology, Radiologist, MD - 05/07/2025 [place] [address] Ultrasound Report Signed Patient: JULISSA WEEMS RMR#: [id number] : 1990Acct:[id number] Age/Sex: 34 / FADM Date: 05/07/25 Loc: US Attending Dr: Neha Borrego D.O. Ordering Physician: Neha Borrego D.O. Date of Service: 05/07/25 Procedure(s): US OB BPP w non-stress Accession Number(s): [id number] cc: Neha Borrego D.O.; Physician,Non-Staff Dileep The [address] [id number] Patient Name: JULISSA WEEMS MRN: [id number] date: 1990 Sex: F Assigned Patient Location: Current Patient Location: Accession/Order Number: [id number] Exam Date: 05/07/2025 12:16 Report Date: 05/07/2025 [...] Olivares M.D. 05/07/2025 12:17 PM Dictation Location: [place] [address] Electronically authenticated by: [id number] Y Date: 2:17 Dictated By: Mariam Olivares M.D. Signed By:05/07/25 1220 DD/ 1217 TD/TT: Sql Consultant: us Neha Elmo DO [facility] Final Result documented in this encounter Visit Diagnoses Not on filedocumented in this encounter
--- OUTSIDE RECORDS SUMMARY | 2025-05-16 13:55 | XMS_ITS | Encounter Summary ---
Author Organization [facility] Address [address] [place] [address] Care Team Providers Care Cnc Lathe Machine Operator Name Role Phone Unavailable Primary Care Provider Unavailabl e Encounter Details Date Type Department Care Team (Late st Contact Info) Description 01/21/2025 Abstract [facility] OB [address] [place] [address] Mik Borrego, DO [address], [facility] [address] Social History Tobacco Use Types Packs/Day Years [...] Description 05/19/2025 9:40 AM EDT Routine [facility] OB [address] [place] [phone] Mik Borrego, DO [address], [facility] [address] documented as of this encounter Visit Diagnoses Not on filedocumented in this encounter
--- OUTSIDE RECORDS SUMMARY | 2025-05-16 13:55 | XMS_ITS | Encounter Summary ---
Author Organization [facility] Address [address] [place] [address] Care Team Providers Care Pharmacy Informatics Specialist Name Role Phone Unavailable Primary Care Provider Unavailabl e Encounter Details Date Type Department Care Team (Late st Contact Info) Description 02/03/2025 Abstract [facility] OB [address] [place] [address] Mik Borrego, DO [address], [facility] Social History Tobacco Use Types [...] [facility] [address] [place] [address] Mik Borrego, DO [address], [facility] documented as of this encounter Visit Diagnoses Not on filedocumented in this encounter
--- OUTSIDE RECORDS SUMMARY | 2025-05-16 13:55 | XMS_ITS | Encounter Summary ---
Author Organization [facility] Address [address] [place] [address] Care Team Providers Care Caustic Plant Worker Name Role Phone Unavailable Primary Care Provider Unavailabl e Encounter Details Date Type Department Care Team (Late st Contact Info) Description 01/17/2025 Abstract [facility] OB [address] [place] [address] Mik Borrego, DO [address], [id number] Social History Tobacco Use Types Packs/Day Years [...] 9:40 AM EDT Routine [facility] OB [address] [place] [address] Mik Borrego, DO [address], [id number] documented as of this encounter Visit Diagnoses Not on filedocumented in this encounter
--- OUTSIDE RECORDS SUMMARY | 2025-05-16 13:55 | XMS_ITS | Encounter Summary ---
Author Organization [facility] Address [address] [place] [address] Care Team Providers Care Truck Safety Inspector Name Role Phone Unavailable Primary Care Provider Unavailabl e Encounter Details Date Type Department Care Team (Late st Contact Info) Description 02/04/2025 Abstract [facility] OB [address] [place] [address] Mik Borrego, DO [address], [facility] [...] Rout[facility] OB [address] [place] [address] Mik Borrego, DO [address], [facility] documented as of this encounter Visit Diagnoses Not on filedocumented in this encounter
--- OUTSIDE RECORDS SUMMARY | 2025-05-16 13:55 | XMS_ITS | Encounter Summary ---
Author Organization [facility] Address [id number] [address] [place] [address] Care Team Providers Care Preschool Assistant Name Role Phone Unavailable Primary Care Provider Unavailabl e Encounter Details Date Type Department Care Team (Late st Contact Info) Description 12/06/2024 Orders Only Maternal- Medicine at [facility] [address] [place] [address] Ref Prov, [place] [address] Social History Tobacco Use Types Packs/Day Years [...]
--- OUTSIDE RECORDS SUMMARY | 2025-05-16 13:55 | XMS_ITS | Encounter Summary ---
Author Organization [facility] Address [address] [place] [address] Care Team Providers Care Senior C Web Developer Name Role Phone Unavailable Primary Care Provider Unavailabl e Encounter Details Date Type Department Care Team (Late st Contact Info) Description 01/22/2025 Abstract [facility] OB [address] [place] [address] Mik Borrego, DO [address], [facility] [address] [place] [address] Mik Borrego, DO [address], [facility] documented as of this encounter Visit Diagnoses Not on filedocumented in this encounter
--- OUTSIDE RECORDS SUMMARY | 2025-05-16 13:55 | XMS_ITS | Clinical Summary ---
Author Organization [facility] Healthcare Address [address] [place] [address] Care Team Providers Care Stock Crane Operator Name Role Phone Unavailable Primary Care [...] antepartum, gestational diabetes method of control unspecified (HHS-HCC),Al[place]ona aria glucose tolerance test Apply 1 Pad topically Daily Use four times daily to check FSBS. 150 each 3 01/28/20 25 Active Blood Glucose Monitoring Suppl (D-Care Glucometer) w/Device kitIndications: Gestational diabetes mellitus (GDM), antepartum, gestational diabetes method of control unspecified (HHS-HCC),[place] aria glucose tolerance test 1 kit Daily Use four times daily to check FSBS. In the morning prior to breakfast & 1 hour after each meal for a total of 4times daily. 1 kit 01/28/20 25 026 Active Alcohol Swabs (Alcohol Prep Pad) 70 % padsIndications :Gestational diabetes mellitus (GDM), antepartum, gestational diabetes method of control unspecified (HHS-HCC),[place] aria glucose tolerance test Apply 1 Pad topically Daily Use four times daily to check FSBS. 150 each 3 01/30/20 25 Active glucose blood (RELION GLUCOSE TEST STRIPS) test stripIndication s:Gestational diabetes mellitus (GDM), antepartum, gestational diabetes method of control unspecified (HHS-HCC),[place] aria glucose tolerance test Use four times daily to check FSBS as directed. 150 each 12 01/30/20 25 026 Active NIFEdipine XL (Procardia XL) 60 MG 24 hr tabletIndicatio ns:Blood pressure check Take 1 tablet (60 mg) by mouth Daily Do not crush, chew, or split. 30 tablet 3 02/04/20 25 025 Active MAGnesium-Oxide 400 (240 Mg) MG tabletIndicatio ns: headache, antepartum ([facility]) Take 1 tablet by mouth once daily 30 tablet 03/21/20 25 Active insulin syringe 29G X 1/2 0.5 mL miscIndications :Gestational diabetes mellitus (GDM), antepartum, gestational diabetes method of control unspecified ([facility]) Use as instructed 100 each 4 04/08/20 [...] antepartum, gestational diabetes method of control unspecified ([facility]),[place]ona aria glucose tolerance test 1 kit in [...] antepartum, gestational diabetes method of control unspecified ([facility]) 5 units sub q in the am and 5 units sub q in the evening 3 mL 3 04/08/20 25 025 Discontinued Active Problems Problem Noted Date Diagnosed Date Insulin controlled gestation al diabetes mellitus (GDM) in third trimester ([facility]) 04/21/2025 Multigravida of advanced mat ernal age in third trimester ([facility]) 04/21/2025 Hypertension 04/21/2025 Third trimester ([facility]) 04/21/2025 Elevated blood pressure affe cting , antepartum ([facility]) 01/16/2025 headache, antepartum ([facility]) 025 Vaginal bleeding affecting early ([facility]) 11/06/2024 Estimated Date of Delivery Comme nts Yes 06/12/2025 Based on Ultraso und Encounters Date Type Department Care Team Description 05/13/2025 Clinisync Result Encounter [facility] External Department Unsolicited Neha Borrego, 05/12/2025 9:10 AM EDT Routine NOMS [address] [place] [id number] Neha Borrego, DO 35 weeks gestation of ([facility]); Third trimester ([facility]); High blood pressure affecting in third trimester, antepartum ([facility]); Insulin controlled gestational diabetes mellitus (GDM) in third trimester ([facility]); Multigravida of advanced maternal age in third trimester ([facility]); induced hypertension, antepartum ([facility]) 05/12/2025 Abstract [facility] OB [facility] [place] [address] Neha Borrego, 05/12/2025 Bamboo flowsheet [facility]OM[facility] [address] [place] [address] Neha Borrego, DO 05/07/2025 Clinisync Result Encounter NOMS External Department Unsolicited Neha Borrego, DO 05/06/2025 Clinisync Result Encounter NOMS External Department Unsolicited Neha Borrego, DO 05/05/2025 9:10 AM EDT Routine NOMS [address] [place] [address] Neha Borrego, DO 34 weeks gestation of ([facility]); Third trimester ([facility]); High blood pressure affecting in third trimester, antepartum ([facility]); induced hypertension, antepartum ([facility]); Insulin controlled gestational diabetes mellitus (GDM) in third trimester ([facility]); Multigravida of advanced maternal age in third trimester ([facility]); Gestational diabetes mellitus (GDM), antepartum, gestational diabetes method of control unspecified ([facility]) 05/05/2025 Abstract [facility] [address] [place] [address] Neha Borrego, DO 05/05/2025 Bamboo flowsheet [facility]OM[facility] [address] [place] [address] Neha Borrego, DO 04/30/2025 2:00 PM EDT Routine [facility]OM[facility] [address] [place] [address] Lindsey Guajardo PA 33 weeks gestation of ([facility]); Third trimester ([facility]); High blood pressure affecting in third trimester, antepartum ([facility]); induced hypertension, antepartum ([facility]) 04/30/[address] [place] [address] Juanis Esparza MA 04/30/2025 Clinisync Result Encounter NOMS External Department Unsolicited Neha Borrego, DO 04/30/2025 Clinisync Result Encounter NOMS External Department Unsolicited Neha Borrego, DO 04/23/2025 Clinisync Result Encounter NOMS External Department Unsolicited Neha Borrego, DO 04/22/2025 Abstract [facility] [address] [place] [address] Neha Borrego, DO 04/21/2025 3:20 PM EDT Routine [facility] [address] [place] [address] Neha Borrego, DO Third trimester ([facility]); 32 weeks gestation of ([facility]); Insulin controlled gestational diabetes mellitus (GDM) in third trimester ([facility]); Multigravida of advanced maternal age in third trimester ([facility]); Hypertension, unspecified type 04/21/2025 Bamboo flowsheet [facility]OM[facility] [address] [place] [address] Neha Borrego, 04/14/2025 9:00 AM EDT Routine [facility]OM[facility] [address] [place] [address] Neha Borrego, DO Third trimester ([facility]); 31 weeks gestation of ([facility]) 04/14/2025 Bamboo flowsheet NOM[facility] [address] [place] [address] Neha Borrego, 04/09/2025 Telephone [facility] [address] [place] [address] Mima Owusu LPN 04/08/2025 11:10 AM EDT Routine [facility] [address] [place] [address] Neha Borrego, DO Third trimester ([facility]); 30 weeks gestation of ([facility]); Gestational diabetes mellitus (GDM), antepartum, gestational diabetes method of control unspecified ([facility]) 04/08/2025 Bamboo flowsheet [facility] OB [address] [place] [address] [place] [address] Neha Borrego, 04/01/2025 Abstract [facility] OB [address] [place] [address] [place] [address] Juanis Esparza PR 03/24/2025 11:10 AM EDT Routine [facility] OB [address] [place] [address] [place] [address] Neha Borrego, Gestational diabetes mellitus (GDM), antepartum, gestational diabetes method of control unspecified ([facility]); Multigravida of advanced maternal age in third trimester ([facility]); Third trimester ([facility]); 28 weeks gestation of ([facility]) 03/24/2025 Bamboo flowsheet NOM[facility] [address] [place] [address] Neha Borrego, 03/21/2025 Refill [facility] OB [address] [place] [address] [place] [address] Neha Borrego, headache, antepartum ([facility]) 03/04/2025 Abstract [facility] [address] [place] [address] Juanis Esparza PR 02/24/2025 10:20 AM EDT Routine [facility] OB [address] [place] [address] [place] [address] Neha Borrego, Second trimester ([facility]); 24 weeks gestation of ([facility]) 02/24/2025 Bamboo flowsheet [facility] OB [address] [place] [address] [place] [address] Neha Borrego, 02/18/2025 Telephone [facility] OB [address] [place] [address] [place] [address] Larisa Chowdary MA [...] AM EDT Routine [facility] BCP OB [address] [facility] [place] [address] Neha Borrego, DO [address] [facility] [place] [address] Health Maintenance Due Date Last Done Comments Influenza Vaccine (#1) 2025 Cervical Cancer Screening 09/16/2029 HPV/Cotest 09/16/2029 08/05/2020 Pap Smear 09/16/2029 09/16/2024 Procedures Procedure Name Priority Date/Time Associated Diagnosis Comments US OB BPP W NON-STRESS 05/13/2025 9:31 AM EDT POCT URINALYSIS DIPSTICK Routine 05/12/2025 9:24 AM EDT 35 weeks gestation of ([facility]) Third trimester ([facility]) US OB BPP W NON-STRESS 05/07/2025 12:17 PM EDT US OB BPP W NON-STRESS 05/06/2025 9:29 AM EDT POCT URINALYSIS DIPSTICK Routine 05/05/2025 10:56 AM EDT 34 weeks gestation of ([facility]) Third trimester ([facility]) TBH URINE T PROTEIN CREAT RATIO Routine 04/30/2025 4:30 PM EDT ALL URIC ACID Routine 04/30/2025 3:08 PM EDT ALL LDH Routine 04/30/2025 3:08 PM EDT CCF CMP (CMP) (FOR REMOTE [facility] USE) Routine 04/30/2025 3:08 PM EDT ALL CBC WITH AUTO DIFF Routine 04/30/2025 3:08 PM EDT POCT URINALYSIS DIPSTICK Routine 04/30/2025 2:19 PM EDT 33 weeks gestation of ([facility]) Third trimester ([facility]) US OB BPP W NON-STRESS 04/30/2025 7:10 AM EDT US OB GROWTH 04/30/2025 7:10 AM EDT US OB BPP W NON-STRESS 04/23/2025 8:03 AM EDT POCT URINALYSIS DIPSTICK Routine 04/21/2025 3:40 PM EDT Third trimester ([facility]) POCT URINALYSIS DIPSTICK Routine 04/14/2025 9:09 AM EDT Third trimester ([facility]) 31 weeks gestation of ([facility]) POCT URINALYSIS DIPSTICK Routine 04/08/2025 11:35 AM EDT Third trimester ([facility]) POCT URINALYSIS DIPSTICK Routine 03/24/2025 11:50 AM EDT Gestational diabetes mellitus (GDM), antepartum, gestational diabetes method of control unspecified ([facility]) POCT URINALYSIS DIPSTICK Routine 02/24/2025 10:57 AM EDT Second trimester ([facility]) 24 weeks gestation of ([facility]) PAP SMEAR Routine 09/16/2024 12:00 AM EST THINPREP TIS PAP REFLEX HPV MRNA E6/E7 (32688) Routine 08/05/2020 from Last 3 Months or Most Recently Relevant to Health Maintenance Results * US OB BPP W NON-STRESS (05/13/2025 9:31 AM EDT) Only the most recent of5 resultswithin the time period is included. Anatomical Region Laterality Modality Other 05/13/2025 9:31 AM EDT Narrative 05/13/2025 9:[place] [address] Ultrasound Report Signed Patient: LE WEEMS MR#: [id number] : 1990 Acct:[id number] Age/Sex: 34 / F ADM Date: 05/13/25 Loc: US Attending Dr: Neha Borrego D.O. Ordering Physician: Neha Borrego D.O. Date of Service: 05/13/25 Procedure(s): US OB BPP w non-stress Accession Number(s): [id number] cc: Neha Borrego D.O.; Physician,Non-Staff M.DNikos [address] [address] Patient Name: LE WEEMS MRN: [id number] date: 1990 Sex: F Assigned Patient Location: [facility] Current Patient Location: Accession/Order Number: [id number] Exam Date: 05/13/2025 09:30 Report Date: 05/13/2025 09:31 At the request of: NEHA BORREGO DO Procedure: US OB BPP w non-stress Biophysical profile. Reason for exam: Gestational diabetes COMPARISON: 05/07/2025 TECHNIQUE: Transabdominal imaging of the gravid uterus was obtained. FINDINGS: The manager of drilling reports a BPP of 8 out of 8. SARA is normal at 12.7 cm. heart rate 147 bpm. US/US OB BPP w non-stress IMPRESSION: BPP 8 out of 8. Impression dictated by: Timbo Goldstein Jr., D.O. 05/13/2025 9:31 AM Dictation Location: [place] [address] Electronically authenticated by: [id number] Y Date: 05/13/2025 09:31 Dictated By: Timbo Goldstein M.D. Signed By: 05/13/25932 DD/ 0 TD/TT: Dust Control Engineer: Procedure Note Radiology, Radiologist, MD - 05/13/2025 [place] [address] Ultrasound Report Signed Patient: LE WEEMS RMR#: [id number] : 1990Acct:[id number] Age/Sex: 34 / FADM Date: 05/13/25 Loc: US Attending Dr: Neha Borrego D.O. Ordering Physician: eNha Borrego D.O. Date of Service: 05/13/25 Procedure(s): US OB BPP w non-stress Accession Number(s): [id number] cc: Neha Borrego D.O.; Physician,Non-Staff Dileep The [address] [address] Patient Name: LE WEEMS MRN: [id number] date: 1990 Sex: F Assigned Patient Location: [facility] Current Patient Location: Accession/Order Number: [id number] Exam Date: 05/13/2025 09:30 Report Date: 05/13/2025 09:31 At the request of: NEHA BORREGO DO Procedure: US OB BPP w non-stress Biophysical profile. Reason for exam: Gestational diabetes COMPARISON: 05/07/2025 TECHNIQUE: Transabdominal imaging of the gravid uterus was obtained. FINDINGS: The manager of drilling reports a BPP of 8 out of 8. SAAR is normal at12.7 cm. heart rate 147 bpm. US/US OB BPP w non-stress IMPRESSION: BPP 8 out of 8. Impression dictated by: Timbo Goldstein Jr., D.O. 05/13/2025 9:31 AM Dictation Location: [place] [address] Electronically authenticated by: [id number] Y Date: 9:31 Dictated By: Timbo Goldstein M.D. Signed By:05/13/25932 DD/ 0 TD/TT: Dust Control Engineer: Neha Borrego DO [facility] Final Result * (ABNORMAL) [...] - Positive Urine 05/12/2025 9:24 AM EDT Neha Elmo DO POINT OF [...] us Neha Borrego DO [facility] Final Result [facility] * (ABNORMAL) [facility] CMP (CMP) (FOR REMOTE [facility] USE) (04/30/2025 3:08 PM EDT) SODIUM [...] 0.55 - 1.02 mg/dL TBH TBH EGFR-AF ALBANIAN >60 >=60 mL/min/1. 73m 2 TBH TBH EGFR-NON AF ALBANIAN >60 >=60 mL/min/1. 73m 2 TBH BUN [...] DO CLIN[facility] Final Result Performing Organization Address [facility] Co de Phone Number [facility] * ALL URIC ACID (04/30/2025 3:08 PM EDT) URIC ACID 5.7 2.6 - 6.0 mg/dL TB 04/30/2025 3:08 PM EDT 04/30/2025 3:12 PM EDT Narrative [facility]IN[facility] - 04/30/2025 3:45 PM EDT Neha Elmo DO [facility] Final Result Performing Organization Address [facility] de Phone Number [facility] * ALL LDH (04/30/2025 3:08 PM EDT) LACTATE DEHYDROGENASE 147 81 - 234 U/L TB 04/30/2025 3:08 PM EDT 04/30/2025 3:12 PM EDT Narrative [facility] - 04/30/2025 3:44 PM EDT [facility] Elmo DO [facility] Final Result Performing Organization Address [facility] de Phone Number [facility] * (ABNORMAL) ALL CBC WITH AUTO DIFF (04/30/2025 3:08 PM EDT) TB WBC 11.6(H) 4.0 - 11.0 10 3/uL TBH TBH RBC 4.37 4.20 - 5.40 10 6/uL TBH TBH HGB 12.5 12.0 - 16.0 g/dL TB TBH HCT 37.8 36.0 - 48.0 % [...] - 04/30/2025 3:17 PM EDT us Neha Elmo DO [facility] Final Result [facility] * US OB GROWTH (04/30/2025 7:10 AM EDT) Anatomical Region Laterality Modality Other 04/30/2025 7:10 AM EDT Narrative 04/30/2025 7:13 AM EDT The [address] [address] Ultrasound Report Signed Patient: LE WEEMS MR#: [id number] : 1990 Acct:[id number] Age/Sex: 34 / F ADM Date: 04/29/25 Loc: US Attending Dr: Neha Borrego D.O. Ordering Physician: Neha Borrego D.O. Date of Service: 04/29/25 Procedure(s): US OB growth Accession Number(s): [id number] cc: Neha Borrego D.O.; Physician,Non-Staff M.David [place] [address] Patient Name: LE WEEMS MRN: [id number] date: 1990 Sex: F Assigned Patient Location: US Current Patient Location: Accession/Order Number: [id number] Exam Date: 04/30/2025 07:02 Report Date: 04/30/2025 [...] Olivares M.D. 04/30/2025 7:10 AM Dictation Location: [place] [address] Electronically authenticated by: [id number] Y Date: 04/30/2025 07:10 Dictated By: Mariam Olivares M.D. Signed By: 04/30/25712 DD/ 9 TD/TT: Dust Control Engineer: Procedure Note Radiology, Radiologist, MD - 04/30/2025 [place] [address] Ultrasound Report Signed Patient: LE WEEMSMR#: [id number] : 1990Acct:[id number] Age/Sex: 34 / FADM Date: 04/29/25 Loc: US Attending Dr: Neha Borrego D.O. Ordering Physician: Neha Borrego D.O. Date of Service: 04/29/25 Procedure(s): US OB growth Accession Number(s): [id number] cc: Neha Borrego D.O.; Physician,Non-Staff Dileep The [place] [id number] Patient Name: LE WEEMS MRN: [id number] date: 1990 Sex: F Assigned Patient Location: US Current Patient Location: Accession/Order Number: [id number] Exam Date: 04/30/2025 07:02 Report Date: 04/30/2025 [...] Olivares M.D. 04/30/2025 7:10 AM Dictation Location: [place] [address] Electronically authenticated by: [id number] Y Date: 7:10 Dictated By: Mariam Olivares M.D. Signed By:04/30/25 0713 DD/ 0710 TD/TT: Dust Control Engineer: us Neha Elmo DO [facility] Final Result * Pap Smear (09/16/2024 12:00 AM EST) Swab Cervical swab / Unknown us Neha Borrego DO LAB CYTOLOGY ORDERABLES Final Re sult EXTERNAL LAB * THINPREP TIS PAP REFLEX HPV MRNA E6/E7 (75118) (08/05/2020) CLINICAL INFORMATION: None given [facility] LEGACY [...] SEE COMMENT [facility] EXTERNAL LAB Comment: [facility], CT(ASCP) CT screening location: [place] [address]. COMMENT SEE COMMENT [facility] LEG ACY EXTERNAL [...] Ty Pulido MD [facility] Final Result Performing Organization Address [facility] Co de Phone Number [facility] EXTERNAL LAB from Last 3 Months or Most Recently Relevant to Health Maintenance Insurance BS
--- OUTSIDE RECORDS SUMMARY | 2025-05-16 13:55 | XMS_ITS | Encounter Summary ---
Author Organization [facility] Address [address] [place] [address] Care Team Providers Care Seed Potato Arranger Name Role Phone Unavailable Primary Care Provider Unavailabl e Encounter Details Date Type Department Care Team (Late st Contact Info) Description 02/04/2025 Abstract [facility] OB [address] [place] [address] Mik Borrego, DO [address] [place], [facility] Social History Tobacco Use Types Packs/Day [...] [facility] [address] [place] [address] Mik Borrego, DO [address] [place], [facility]11 documented as of this encounter Visit Diagnoses Not on filedocumented in this encounter
--- OUTSIDE RECORDS SUMMARY | 2025-05-16 13:56 | XMS_ITS | Encounter Summary ---
Author Organization [facility] Address [address] [place] [address] Care Team Providers Care Medical Staff Director Name Role Phone Unavailable Primary Care Provider Unavailabl e Encounter Details Date Type Department Care Team (Late st Contact Info) Description 05/13/2025 Clinisync Result Encounter [facility] External Department Unsolicited Neha Borrego, DO [address] [place] [address] Social History Tobacco Use Types Packs/Day Years [...] EDT Routine [facility] [address] [facility] [place] [address] Neha Borrego, DO [address] [place] [address] documented as of this encounter Procedures Procedure Name Priority Date/Time Associated Diagnosis Comments US OB BPP W NON-STRESS 05/13/2025 9:31 AM EDT documented in this encounter Results * US OB BPP W NON-STRESS (05/13/2025 9:31 AM EDT) Anatomical Region Laterality Modality Other 05/13/2025 9:31 AM EDT Narrative 05/13/2025 9:33 AM EDT [address] [address] Ultrasound Report Signed Patient: JULISSA WEEMS MR#: [id number] : 1990 Acct:[id number] Age/Sex: 34 / F ADM Date: 05/13/25 Loc: US Attending Dr: Neha Borrego D.O. Ordering Physician: Neha Borrego D.O. Date of Service: 05/13/25 Procedure(s): US OB BPP w non-stress Accession Number(s): [id number] cc: Neha Borrego D.O.; Physician,Non-Staff [employer] [address] [address] Patient Name: JULISSA WEEMS MRN: [facility]:[id number] date: 1990 Sex: F Assigned Patient Location: [facility] Current Patient Location: Accession/Order Number: [id number] Exam Date: 05/13/2025 09:30 Report Date: 05/13/2025 09:31 At the request of: NEHA BORREGO DO Procedure: US OB BPP w non-stress Biophysical profile. Reason for exam: Gestational diabetes COMPARISON: 05/07/2025 TECHNIQUE: Transabdominal imaging of the gravid uterus was obtained. FINDINGS: The tax associate reports a BPP of 8 out of 8. SARA is normal at 12.7 cm. heart rate 147 bpm. US/US OB BPP w non-stress IMPRESSION: BPP 8 out of 8. Impression dictated by: Timbo Goldstein Jr., D.O. 05/13/2025 9:31 AM Dictation Location: [place] [address] Electronically authenticated by: [id number] Y Date: 05/13/2025 09:31 Dictated By: Timbo Goldstein M.D. Signed By: 05/13/2533 DD/ 0 TD/TT: Network Operations Analyst: Procedure Note Radiology, Radiologist, MD Chandra 05/13/2025 [place] [address] Ultrasound Report Signed Patient: JULISSA WEEMS RMR#: [id number] : 1990Acct:[id number] Age/Sex: 34 / FADM Date: 05/13/25 Loc: US Attending Dr: Neha Borrego D.O. Ordering Physician: Neha Borrego D.O. Date of Service: 05/13/25 Procedure(s): US OB BPP w non-stress Accession Number(s): [id number] cc: Neha Borrego D.O.; Physician,Non-Staff Dileep The [place] [address] Patient Name: JULISSA WEEMS MRN: [id number] date: 1990 Sex: F Assigned Patient Location: [facility] Current Patient Location: Accession/Order Number: [id number] Exam Date: 05/13/2025 09:30 Report Date: 05/13/2025 09:31 At the request of: NEHA BORREGO DO Procedure: US OB BPP w non-stress Biophysical profile. Reason for exam: Gestational diabetes COMPARISON: 05/07/2025 TECHNIQUE: Transabdominal imaging of the gravid uterus was obtained. FINDINGS: The tax associate reports a BPP of 8 out of 8. SARA is normal at12.7 cm. heart rate 147 bpm. US/US OB BPP w non-stress IMPRESSION: BPP 8 out of 8. Impression dictated by: Timbo Goldstein Jr., D.O. 05/13/2025 9:31 AM Dictation Location: [place] [address] Electronically authenticated by: [id number] Y Date: 9:31 Dictated By: Timbo Goldstein M.D. Signed By:05/13/2533 DD/ 0 TD/TT: Network Operations Analyst: us Neha Elmo DO [facility] Final Result documented in this encounter Visit Diagnoses Not on filedocumented in this encounter
--- OUTSIDE RECORDS SUMMARY | 2025-05-16 13:56 | XMS_ITS | Encounter Summary ---
Author Organization [facility] Address [address] [place] [address] Care Team Providers Care Fur Examiner Name Role Phone Unavailable Primary Care Provider Unavailabl e Encounter Details Date Type Department Care Team (Late st Contact Info) Description 05/12/2025 Bamboo flowsheet [facility] [address] [place] [address] Mik Borrego, DO [address], [place] [address] Social History Tobacco Use Types Packs/Day Years [...] Description 05/19/2025 9:40 AM EDT Routine [facility] [address] [place] [address] Mik Borrego, DO [address], [place] [address] documented as of this encounter Visit Diagnoses Not on filedocumented in this encounter
--- OUTSIDE RECORDS SUMMARY | 2025-05-16 13:56 | XMS_ITS | Encounter Summary ---
Author Organization [facility] Address [address] [place] [address] Care Team Providers Care Manager Continuous Improvement Name Role Phone Unavailable Primary Care Provider Unavailabl e Encounter Details Date Type Department Care Team (Late st Contact Info) Description 05/05/2025 Bamboo flowsheet [facility] OB [address] [place] [address] Mik Borrego, DO [address], [place] [address] Social History Tobacco Use Types Packs/Day Years [...] Description 05/19/2025 9:40 AM EDT Routine [facility] OB [address] [place] [address] Mik Borrego, DO [address], [facility]11 documented as of this encounter Visit Diagnoses Not on filedocumented in this encounter
--- OUTSIDE RECORDS SUMMARY | 2025-05-16 13:56 | XMS_ITS | Encounter Summary ---
Author Organization [facility] Address [address] [place] [address] Care Team Providers Care Payroll Specialist Name Role Phone Unavailable Primary Care Provider Unavailabl e Encounter Details Date Type Department Care Team (Late st Contact Info) Description 04/22/2025 Abstract [facility] OB [address] [place] [address] Mik Borrego, DO [address], [facility]11 Social History Tobacco [...] Description 05/19/2025 9:40 AM EDT Routine [facility] OB [address] [place] [address] Mik Borrego, DO [address], [facility]11 documented as of this encounter Visit Diagnoses Not on filedocumented in this encounter
--- OUTSIDE RECORDS SUMMARY | 2025-05-16 13:56 | XMS_ITS | Encounter Summary ---
Author Organization [facility] Address [address] [place] [address] Care Team Providers Care Cardiothoracic Physiotherapist Name Role Phone Unavailable Primary Care Provider Unavailabl e Encounter Details Date Type Department Care Team (Late st Contact Info) Description 11/08/2024 Clinisync Result Encounter [facility] External Department Unsolicited Neha Borrego, DO [address] [place] [address] Social History Tobacco Use Types Packs/Day Years [...] Routine [facility] [address] [place] [phone] Neha Borrego, DO [address] [place] [address] documented as of this encounter Procedures Procedure [...] AM EST Narrative 11/08/2024 11:35 [place] [address] Ultrasound Report Signed Patient: JULISSA WEEMS MR#: [id number] : 1990 Acct:[id number] Age/Sex: 33 / F ADM Date: 11/08/24 Loc: US Attending Dr: Neha Borrego D.O. Ordering Physician: Neha Borrego D.O. Date of Service: 11/08/24 Procedure(s): US OB transvaginal Accession Number(s): [id number] cc: Neha Borrego D.O.; Physician,Non-Staff M.D. The [place] [id number] Patient Name: JULISSA WEEMS MRN: [id number] date: 1990 Sex: F Assigned Patient Location: US Current Patient Location: US Accession/Order Number: [id number] Exam Date: 11/08/2024 10:18 Report Date: 11/08/2024 [...] Signed By: 11/08/24 1135 DD/ 1132 TD/TT: Doll Wigs Hackler: Procedure Note Radiology, Radiologist, MD - 11/08/2024 [place] [address] Ultrasound Report Signed Patient: JULISSA WEEMSMR#: [id number] : 1990Acct:[id number] Age/Sex: 33 / FADM Date: 11/08/24 Loc: US Attending Dr: Neha Borrego D.O. Ordering Physician: Neha Borrego D.O. Date of Service: 11/08/24 Procedure(s): US OB transvaginal Accession Number(s): [id number] cc: Neha Borrego D.O.; Physician,Non-Staff Dileep [facility] [place] [id number] Patient Name: JULISSA WEEMS MRN: [id number] date: 1990 Sex: F Assigned Patient Location: US Current Patient Location: US Accession/Order Number: [id number] Exam Date: 11/08/2024 10:18 Report Date: 11/08/2024 [...] M.D. Signed By:11/08/24 1135 DD/ 1132 TD/TT: Doll Wigs Hackler: Neha Elmo DO [facility] Final Result * HBSAG SCREEN (11/08/2024 10:14 AM EST) Pathologist [facility] HBSAG SCREEN Negative Negative [facility] Comment: Performed at: [address] [id number] Production Material Coordinator: Toni Espinal PhD, Phone: [phone] 11/08/2024 10:1 4 AM EST 11/08/2024 10:16 AM EST Narrative [facility] - 11/09/2024 12:09 PM EST Neha Elmo DO LAB BLOOD ORDERABLES Final Resul t [facility] * RAPID PLASMA REAGIN, QUANT (11/08/2024 10:14 AM EST) Pathologist [facility] RAPID PLASMA REAGIN, QUANT Non Reactive NonRea<1: 1 titer [facility] Comment: Please Note: This test does not meet current guidelines for screening and diagnosis of syphilis. This test is intended for following treatment response in patients being treated for syphilis infection. To screen for syphilis infection, a reflex cascade that includes both RPR and a treponema-specific assay should be utilized, such as Treponema pallidum (Syphilis) Screening [place] (525761) or Rapid Plasma Reagin (RPR) Test With Reflex to Quantitative RPR and Confirmatory Treponema pallidum Antibodies (032205). Performed at: [address] [id number] Production Material Coordinator: Toni Espinal PhD, Phone: [phone] 11/08/2024 10:1 4 AM EST 11/08/2024 10:16 AM EST Narrative [facility] - 11/09/2024 12:09 PM EST [facility] BLOOD ORDERABLES Final Resul t Performing Organization Address [facility] Co de Phone Number [facility] * HCV ANTIBODY RFX TO [...] Narrative [facility] - 11/09/2024 5:07 AM EST [facility] BLOOD ORDERABLES Final Resul t Performing Organization Address City/[facility] Co de Phone Number [facility] * HIV AB/P24 AG WITH REFLEX (11/08/2024 10:14 AM EST) HIV AB/P24 AG SCREEN Non Reactive Non Reactive TB Comment: HIV-1/HIV-2 antibodies and HIV-1 p24 antigen were NOT detected. There is no laboratory evidence of HIV infection. HIV Negative Performed at: [address] [id number] Production Material Coordinator: Toni Espinal PhD, Phone: [phone] 11/08/2024 10:1 4 AM EST 11/08/2024 10:16 AM EST Narrative [facility]IN[facility] - 11/09/2024 5:07 AM EST us Neha Jaino DO LAB BLOOD ORDERABLES Final Resul t Performing Organization Address City/[facility]/ZIP Co de Phone Number [facility] TB * ALL RUBELLA IGG AB (11/08/2024 10:14 AM EST) RUBELLA ANTIBODIES, IGG 1.78 Immune >0.99 index [facility] Comment: Non-immune <0.90 Equivocal 0.90 - 0.99 Immune >0.99 11/08/2024 10:1 4 AM EST 11/08/2024 10:16 AM EST Narrative [facility] - 11/09/2024 5:07 AM EST us Neha Jaino DO [facility] Final Result Performing Organization Address [facility] Co de Phone Number [facility] * ALL TYPE AND SCREEN (11/08/2024 10:14 AM EST) BLOOD TYPE B Positive [facility] ANTIBODY SCREEN NEGATIVE [facility] 11/08/2024 10:1 4 AM EST 11/08/2024 10:16 AM EST Narrative [facility]IN[facility]NC - 11/08/2024 12:[address] [facility] , Neha Elmo DO CL[facility] Final Result Performing Organization Address City/[facility]/[place] Co de Phone Number [facility] documented in this encounter Visit Diagnoses Not on filedocumented in this encounter
--- OUTSIDE RECORDS SUMMARY | 2025-05-16 13:56 | XMS_ITS | Encounter Summary ---
Author Organization [facility] Address [address] [place] [address] Care Team Providers Care Footwear Sales Coordinator Name Role Phone Unavailable Primary Care Provider Unavailabl e Encounter Details Date Type Department Care Team (Late st Contact Info) Description 04/01/2025 Abstract [facility] [address] [address] Juanis Esparza MA Social History Tobacco [...] Description 05/19/2025 9:40 AM EDT Routine NOMS [address] [place] [address] Mik Borrego [address] [place] [address] documented as of this encounter Visit Diagnoses Not on filedocumented in this encounter
--- OUTSIDE RECORDS SUMMARY | 2025-05-16 13:56 | XMS_ITS | Encounter Summary ---
Author Organization [facility] Address [address] [place] [address] Care Team Providers Care Health Care Aide Name Role Phone Unavailable Primary Care Provider Unavailabl e Encounter Details Date Type Department Care Team (Late st Contact Info) Description 09/16/2024 Abstract [facility] OB [address] [place] [place] [address] Mik Borrego, DO [address], [place] [address] Social History Tobacco Use Types Packs/Day Years [...] Description 05/19/2025 9:40 AM EDT Routine [facility] OB [address] [place] [address] Mik Borrego, DO [address], [place] [id number] documented as of this encounter Visit Diagnoses Not on filedocumented in this encounter
--- OUTSIDE RECORDS SUMMARY | 2025-05-16 13:56 | XMS_ITS | Encounter Summary ---
Author Organization [facility] Address [address] [place] [address] Care Team Providers Care Manager Leasing Name Role Phone Unavailable Primary Care Provider Unavailabl e Encounter Details Date Type Department Care Team (Late st Contact Info) Description 05/06/2025 Clinisync Result Encounter NOM[facility] External Department Unsolicited Neha Borrego, DO [address] [place] [address] Social History Tobacco Use Types Packs/Day Years [...] AM EDT Routine [facility] [address] [facility] [place] [place] [phone] Neha Borrego, DO [address] [place] [address] documented as of this encounter Procedures Procedure Name Priority Date/Time Associated Diagnosis Comments US OB BPP W NON-STRESS 05/06/2025 9:29 AM EDT documented in this encounter Results * US OB BPP W NON-STRESS (05/06/2025 9:29 AM EDT) Anatomical Region Laterality Modality Other 05/06/2025 9:29 AM EDT Narrative 05/06/2025 9:32 AM EDT [address] [address] Ultrasound Report Signed Patient: JULISSA WEEMS MR#: [id number] : 1990 Acct:[id number] Age/Sex: 34 / F ADM Date: 05/06/25 Loc: [facility] 250-[address]: Neha Borrego D.O. Ordering Physician: Neha Borrego D.O. Date of Service: 05/06/25 Procedure(s): US OB BPP w non-stress Accession Number(s): [id number] cc: Neha Borrego D.O.; Physician,Non-Staff Dileep [address] [address] Patient Name: JULISSA WEEMS MRN: [facility]:[id number] date: 1990 Sex: F Assigned Patient Location: [facility] Current Patient Location: [facility] Accession/Order Number: [id number] Exam Date: 05/06/2025 09:07 Report Date: 05/06/2025 [...] Olivares M.D. 05/06/2025 9:29 AM Dictation Location: [place] [address] Electronically authenticated by: [id number] Y Date: 05/06/2025 09:29 Dictated By: Mariam Olivares M.D. Signed By: 05/06/25931 DD/ 8 TD/TT: Headlight Adjuster: Procedure Note Radiology, Radiologist, MD - 05/06/2025 [place] [address] Ultrasound Report Signed Patient: JULISSA WEEMS RMR#: [id number] : 1990Acct:[id number] Age/Sex: 34 / FADM Date: 05/06/25 Loc: [facility] 250-[address]: Neha Borrego D.O. Ordering Physician: Neha Borrego D.O. Date of Service: 05/06/25 Procedure(s): US OB BPP w non-stress Accession Number(s): [id number] cc: Neha Borrego D.O.; Physician,Non-Staff Dileep [facility] [place] [id number] Patient Name: JULISSA WEEMS MRN: [id number] date: 1990 Sex: F Assigned Patient Location: [facility] Current Patient Location: [facility] Accession/Order Number: [id number] Exam Date: 05/06/2025 09:07 Report Date: 05/06/2025 [...] Olivares M.D. 05/06/2025 9:29 AM Dictation Location: [place] [address] Electronically authenticated by: [id number] Y Date: 9:29 Dictated By: Mariam Olivares M.D. Signed By:05/06/2532 DD/ 8 TD/TT: Headlight Adjuster: us Neha Elmo DO [facility] Final Result documented in this encounter Visit Diagnoses Not on filedocumented in this encounter
--- OUTSIDE RECORDS SUMMARY | 2025-05-16 13:56 | XMS_ITS | Encounter Summary ---
Author Organization [facility] Address [address] [place] [address] Care Team Providers Care Bottom Turner Name Role Phone Unavailable Primary Care Provider Unavailabl e Encounter Details Date Type Department Care Team (Late st Contact Info) Description 05/12/2025 Abstract [facility] OB [address] [place] [address] Mik Borrego, DO [address], [facility] Social History Tobacco Use Types Packs/Day Years [...] Description 05/19/2025 9:40 AM EDT Routine [facility] OB [address] [place] [address] Mik Borrego, DO [address], [facility] documented as of this encounter Visit Diagnoses Not on filedocumented in this encounter
--- OUTSIDE RECORDS SUMMARY | 2025-05-16 13:56 | XMS_ITS | Encounter Summary ---
Author Organization [facility] Address [address] [place] [address] Care Team Providers Care Signal Circuit Designer Name Role Phone Unavailable Primary Care Provider Unavailabl e Encounter Details Date Type Department Care Team (Late st Contact Info) Description 10/08/2024 Orders Only [facility] OB [address] [place] [address] [place] [phone] Larisa Chowdary MA [address] [place] [address] [place] [address] Social History Tobacco Use Types Packs/Day Years [...] Description 05/19/2025 9:40 AM EDT Routine NOM[facility] [address] [place] [address] Mik Borrego DO [address] [place] [address] Dr [address] [place], [facility] documented as of this encounter Procedures Procedure [...]
--- OUTSIDE RECORDS SUMMARY | 2025-05-16 13:56 | XMS_ITS | Encounter Summary ---
Author Organization [facility] Address [address] [place] [address] Care Team Providers Care Pictures Editor Name Role Phone Unavailable Primary Care Provider Unavailabl e Encounter Details Date Type Department Care Team (Late st Contact Info) Description 02/05/2025 Abstract [facility] OB [address] [place] [address] Mik Borrego, DO [address], [facility] Social History Tobacco Use Types Packs/Day [...] Description 05/19/2025 9:40 AM EDT Routine [facility] OB [address] [place] [address] Mik Borrego, DO [address], [facility]11 documented as of this encounter Visit Diagnoses Not on filedocumented in this encounter
--- OUTSIDE RECORDS SUMMARY | 2025-05-16 13:56 | XMS_ITS | Encounter Summary ---
Author Organization [facility] Address [address] [place] [address] Care Team Providers Care Senior Electronics Engineer Name Role Phone Unavailable Primary Care Provider Unavailabl e Encounter Details Date Type Department Care Team (Late st Contact Info) Description 11/11/2024 Abstract [facility] OB [address] [place] [address] Mik Borrego, DO [address], [facility] Social History Tobacco Use Types Packs/Day [...] Description 05/19/2025 9:40 AM EDT Routine [facility] OB [address] [place] [address] Mik Borrego, DO [address], [facility]11 documented as of this encounter Visit Diagnoses Not on filedocumented in this encounter
--- OUTSIDE RECORDS SUMMARY | 2025-05-16 13:56 | XMS_ITS | Encounter Summary ---
Author Organization [facility] Address [address] [place] [address] Care Team Providers Care Water Attendant Name Role Phone Unavailable Primary Care Provider Unavailabl e Encounter Details Date Type Department Care Team (Late st Contact Info) Description 03/04/2025 Abstract [facility] [address] [place] [address] Juanis Esparza MA Social History Tobacco [...] Description 05/19/2025 9:40 AM EDT Routine NOMS [address] [place] [address] Mik Borrego [address] [place] [address] documented as of this encounter Visit Diagnoses Not on filedocumented in this encounter
--- OUTSIDE RECORDS SUMMARY | 2025-05-16 13:56 | XMS_ITS | Encounter Summary ---
Author Organization [facility] Address [address] [place] [address] Care Team Providers Care Cable Supervisor Name Role Phone Unavailable Primary Care Provider Unavailabl e Encounter Details Date Type Department Care Team (Late st Contact Info) Description 05/05/2025 Abstract [facility] OB [address] [place] [address] Mik Borrego, DO [address], [facility] Social History Tobacco Use Types Packs/Day Years [...] Description 05/19/2025 9:40 AM EDT Routine [facility] OB [address] [place] [address] Mik Borrego, DO [address], [facility] documented as of this encounter Visit Diagnoses Not on filedocumented in this encounter
--- NOTE | 2025-05-16 14:14 | PC.NURSE ---
Pt complaining of being tired at this time. Pt denies pre-e s/s. slight facial and bilateral extremity swelling noted.
[2025-05-16 14:56] LABS: Hematocrit 38.3 % (36.0-48.0); Hemoglobin 13.0 g/dL (12.0-16.0); Immature Granulocytes Abs Auto 0.09 10^3/uL (0.00-0.03); Immature Granulocytes Pct Auto 0.7 % (0.0-0.5); Lymphocytes Absolute Auto 2.1 10^3/uL (1.2-3.8); Mean Corpuscular HGB Conc 33.9 g/dL (29.9-35.2); Mean Corpuscular Hemoglobin 29.0 pg (26.7-34.0); Mean Corpuscular Volume 85.5 fL (81.0-99.0); Platelet Count 199 10^3/uL (150-450); Red Blood Count 4.48 10^6/uL (4.20-5.40); White Blood Count 12.5 10^3/uL (4.0-11.0)
[2025-05-16 15:15] LABS: Alanine Aminotransferase 18 U/L (14-59); Aspartate Amino Transferase 18 U/L (15-37); Blood Urea Nitrogen 9.0 mg/dL (7.0-18.0); Estimated GFR (African America >60 (>=60 mL/min/1.73m^2); Estimated GFR (Non-African Ame >60 (>=60 mL/min/1.73m^2); Uric Acid 6.3 mg/dL (2.6-6.0)
[2025-05-16 15:40] LABS: Protein Creatinine Ratio Urine 0.34; Total Protein Urine Random 31.2 mg/dL (<=11.9)
[2025-05-16 17:54] LABS: Cannabinoid Screen Urine NEGATIVE (NEGATIVE); Methamphetamines Screen Urine NEGATIVE (NEGATIVE); Tricyclic Antidepressant Urine NEGATIVE (NEGATIVE)
--- NOTE | 2025-05-16 18:05 | PC.NURSE ---
1805- Report given to Lex LOPEZ; Care relinquished.
--- NOTE | 2025-05-16 18:29 | PC.NURSE ---
1649-Cervical exam performed . %/-2
--- OUTSIDE RECORDS SUMMARY | 2025-05-16 18:53 | XMS_ITS | CCD ---
Author Organization [facility] Care Team Providers Care Malt House Supervisor Name Role Phone Helene HAMILTON Darwin Primary [...] 05-06-20 Rhabdomyolysis (disorder), Other (See Comments) [facility] (20 sources) Phentermine; Translations: [phentermine] Drug Allergy 09-16-20 Dyspnea (finding), Weal (disorder), Shortness of breath [facility] (20 sources) dulaglutide; Translations: [DULAGLUTIDE] Drug Allergy 05-06-20 [facility] (20 sources) Sulfites; Translations: [SULFITES] Propensity to adverse reactions 05-06-20 [facility] (20 sources) metFORMIN Drug Allergy 09-16-20 [facility] (20 sources) Other Propensity to adverse reactions 11-25-19 [facility] (9 sources) dulaglutide Drug Allergy 12-06-19 [facility] (20 sources) Gelatin; Translations: [GELATIN] Drug Allergy 12-06-19 [facility] (20 sources) metFORMIN Drug Allergy 12-31-19 [facility] (20 sources) Pollen Propensity to adverse reactions 12-31-19 Unknown [facility] (20 sources) Prednisone Allergy to substance 12-31-19 Rash [facility] (20 sources) Propranolol Drug Allergy 12-31-19 [facility] (3 sources) No Known Medication Allergies; Translations: [No Known Medication Allergies] Propensity to adverse reactions (disorder) [facility] Repository Medications Current Medications Medication Drug Class(es) Dates Sig (Normalized) Sig (Original) [id number] 200 actuat albuterol 0.09 mg/actuat metered dose inhaler (20 sources) beta2-Adrenergic Agonist Start: 04-04-2024 albuterol HFA 90 mcg/act inhaler 04/04/2024 Active Start: 10-19-2021 take 1 dose by inhal ation every four hours ProAir HFA 90 mcg/inh inhalation aerosol 2 puff(s), Inhalation, q4hr for wheezing, 1 EA, Refill(s) 11, [facility] #[id number], 170, cm, 07/13/21 9:30:00 EDT, Height/Length Dosing, [...] q6hr for wheezing, 18 gram, Refill(s) 0, [facility] #[id number], 170, cm, 05/17/22 11:42:00 EDT, Height/Length Dosing, [...] antepartum, gestational diabetes method of control unspecified ([facility]) , Elevated glucose tolerance test 1 [...] q24hr, # 90 tab(s), Refills(s) 1, Pharmacy: [facility] #[id number], 170, cm, 05/17/22 11:42:00 EDT, Height/Length Dosing, 95.1, kg, 05/17/22 11:42:00 EDT, Weight Dosing Start Date: 06/20/22 Status: Ordered Quantity: 90.0 Unit: tab(s) Repeat number: 2 Start: 03-08-2022 take 1 tablet by volodymyr th every twenty-four hours Wellbutrin XL 150 mg/24 hours Tab-ER 150 mg = 1 tab(s), Oral, q24hr, # 30 tab(s), Refills(s) 2, Pharmacy: [facility] #[id number], 170, cm, 03/08/22 10:25:00 EDT, Height/Length Dosing, 98.4, kg, 03/08/22 10:25:00 EDT, Weight Dosing Start Date: 03/08/22 Status: Ordered Start: 03-08-2022 take 1 tablet by volodymyr th every twenty-four hours Wellbutrin XL 150 mg/24 hours Tab-ER 150 mg = 1 tab(s), Oral, q24hr, # 30 tab(s), Refills(s) 2, Pharmacy: [facility] #[id number], 170, cm, 03/08/22 10:25:00 EDT, Height/Length Dosing, 98.4, kg, 03/08/22 10:25:00 EDT, Weight Dosing Start Date: 03/08/22 Status: Ordered cetirizine hydrochloride 10 mg oral tablet (20 sources) Histamine-1 Receptor Antagonist cetirizine (ZyrTEC) 10 MG tablet Take by mouth Active insulin isophane, human 100 unt/ml injectable suspension (20 sources) Start: 025 End: 025 inject 5 [IU] by subcutaneous injection in [...] qPM, # 90 tab(s), Refills(s) 3, Pharmacy: [facility] #[id number], 170, cm, 05/17/22 11:42:00 EDT, Height/Length Dosing, 95.1, kg, 05/17/22 11:42:00 EDT, Weight Dosing Start Date: 10/03/22 Status: Ordered Quantity: 90.0 Unit: tab(s) Repeat number: 4 naltrexone hydrochloride 50 mg oral tablet (8 sources) Opioid Antagonist Start: 04-12-2022 take 1 tablet by mouth once daily naltrexone 50 mg oral tablet See Instructions, 1 tablet daily, # 90 tab(s), Refills(s) 0, Pharmacy: [facility] #[id number], 170, cm, 04/12/22 11:02:00 EDT, Height/Length Dosing, [...] pain, # 10 tab(s), Refills(s) 0, Pharmacy: [facility] #[id number], 170, cm, 05/11/22 22:56:00 EDT, Height/Length Dosing, [...] E66.9, # 30 tab(s), Refills(s) 0, Pharmacy: [facility] #[id number], 170, cm, 03/08/22 10:25:00 EDT, Height/Length Dosing, [...] mg, SubCutaneous, qWeek, 1 EA, Refill(s) 5, [facility] #[id number], 170, cm, 05/11/22 22:56:00 EDT, Height/Length Dosing, 89, kg, 05/11/22 22:56:00 EDT, Weight Dosing Start Date: 05/12/22 Status: Ordered Quantity: 1.0 Unit: EA Repeat number: 6 spironolactone 25 mg oral tablet (9 sources) Aldosterone Antagonist Start: 06-22-2021 take 1 tablet by mouth twice daily spironolactone 25 mg Tab 25 mg = 1 tab(s), Oral, BID, # 180 tab(s), Refills(s) 3, Pharmacy: [facility], 170, cm, 04/06/21 9:19:00 EDT, Height/Length Dosing, 90, kg, 04/06/21 9:19:00 EDT, Weight Dosing Start Date: 06/22/21 Status: Ordered Quantity: 180.0 Unit: tab(s) Repeat number: 4 tretinoin 0.0004 mg/mg topical gel (6 sources) Retinoid Start: 02-17-2023 apply 1 [IU] topically once daily at bedtime tretinoin Top 0.04% Gel 1 sonya, Topical, Once a day (at bedtime), 45 gram, Refill(s) 0, [facility] #[id number], 170, cm, 05/17/22 11:42:00 EDT, Height/Length Dosing, 95.1, kg, 05/17/22 11:42:00 EDT, Weight Dosing Start Date: 02/17/23 Status: Ordered Quantity: 45.0 Unit: g Repeat number: 1 Start: 12-02-2022 apply 1 [IU] topical ly once daily at bedtime tretinoin Top 0.1% Crm 1 sonya, Topical, Once a day (at bedtime), 20 gram, Refill(s) 6, [facility] #99131, 170, cm, 05/17/22 11:42:00 EDT, Height/Length Dosing, [...] hours, # 4 tab(s), Refills(s) 1, Pharmacy: [facility], 170, cm, 11/03/20 13:01:00 EST, [...] hours, # 4 tab(s), Refills(s) 1, Pharmacy: [facility], 170, cm, 11/03/20 13:01:00 EST, Height/Length Dosing, 94.7, kg, 11/03/20 13:01:00 EST, Brandon... Start Date: 11/03/20 Status: Ordered Ventolin HFA 90 mcg/inh Aerosol (4 sources) Start: 10-18-2021 take 1 puff(s) by inhalation once for wheezing Ventolin HFA 90 mcg/inh Aerosol 1 puff(s), Inhalation, Once for wheezing, 6.7 gm, Refill(s) 2, [facility] #91212, 170, cm, 07/13/21 9:30:00 EDT, Height/Length Dosing, 88.5, kg, 07/13/21 9:30:00 EDT, Weight Dosing Start Date: 10/18/21 Status: Ordered Ventolin HFA 90 mcg/inh Aerosol-Adpt (3 sources) Start: 10-28-2022 take 2 puff(s) by inhalation every six hours for wheezing Ventolin HFA 90 mcg/inh Aerosol-Adpt 2 puff(s), Inhalation, q6hr for wheezing, 18 gram, Refill(s) 5, [facility] #[id number], 170, cm, 05/17/22 11:42:00 EDT, Height/Length Dosing, [...] Nausea/Vomiting, # 12 tab(s), Refills(s) 0, Pharmacy: [facility] #[id number], 170, cm, 05/17/22 11:42:00 EDT, Height/Length Dosing, [...] Nausea/Vomiting, # 30 tab(s), Refills(s) 1, Pharmacy: [facility] #[id number], 170, cm, 05/11/22 22:56:00 EDT, Height/Length Dosing, 89, kg, 05/11/22 22:56:00 EDT, Weight Dosing Start Date: 05/12/22 Status: Ordered Quantity: 30.0 Unit: tab(s) Repeat number: 2 Start: 05-12-2022 take 1 tablet by volodymyr th every eight hours as needed for nausea Zofran ODT 4 mg Tab-Dis 4 mg = 1 tab(s), Oral, q8hr, PRN Nausea/Vomiting, # 30 tab(s), Refills(s) 1, Pharmacy: [facility] #[id number], 170, cm, 05/11/22 22:56:00 EDT, Height/Length Dosing, 89, kg, 05/11/22 22:56:00 EDT, Weight Dosing Start Date: 05/12/22 Status: Ordered Start: 12-22-2021 take 1 tablet by volodymyr th every eight hours as needed for nausea Zofran ODT 4 mg Tab-Dis 4 mg = 1 tab(s), Oral, q8hr, PRN Nausea/Vomiting, # 12 tab(s), Refills(s) 0, Pharmacy: [facility] #[id number], 170, cm, 12/22/21 7:22:00 EST, Height/Length Dosing, [...] # 2 tab(s), Refills(s) 0, Prophylaxis, Pharmacy: [facility] #[id number], 170, cm, 05/17/22 11:42:00 EDT, Height/Length Dosing, [...] q4hr for wheezing, 1 EA, Refill(s) 11, [facility] #09707, 170, cm, 07/13/21 9:30:00 EDT, Height/Length Dosing, [...] (9 sources) Hyperlipidemia 11-03-2020 Chronic Essential hypertension (19 sources) Hypertensive disorder; Translations: [Essential (primary) hypertension] [...] current use of drug therapy; Translations: [Other terminal manager (current) drug therapy] Onset: 03-08-2022 Episodic Other [...] Test Name Value Interpretation Reference Range Facility ALL BUNon 05-16-2025 Urea nitrogen [Mass/Vol] 9 mg/dL 7.0 - 18.0 mg/dL [facility] ALL CBC WITH AUTO DIFFon BASOPHILS ABSOLUTE AUTO 0 [facility] Basophils/100 WBC (Bld) 0.3 % 0.2 - 2.0 % [facility] Eosinophils/100 WBC (Bld) 0.9 % 0.9 - 7.0 % [facility] Erythrocyte distribution width (RBC) [Ratio] 13.7 % 11.0 - 15.0 % [facility] Hematocrit (Bld) [Volume fraction] 38.3 % 36.0 - 48.0 % [facility] Hemoglobin (Bld) [Mass/Vol] 13 g/dL 12.0 - 16.0 g/dL [facility] IMMATURE GRANULOCYTES ABS AUTO 0.09 High [facility] Immature granulocytes/100 WBC (Bld) 0.7 % High 0.0 - 0.5 % [facility] Interpretation and review of laboratory results Abnormal [facility] LYMPHOCYTES ABSOLUTE AUTO 2.1 [facility] Lymphocytes/100 WBC (Bld) 17.1 % Low 20.5 - 60.0 % [facility] MCH (RBC) [Entitic mass] 29 pg 26.7 - 34.0 pg [facility] MCHC (RBC) [Mass/Vol] 33.9 g/dL 29.9 - 35.2 g/dL [facility] MCV (RBC) [Entitic vol] 85.5 fL 81.0 - 99.0 fL [facility] MONOCYTES ABSOLUTE AUTO 1 High [facility] Monocytes/100 WBC (Bld) 8.2 % 1.7 - 12.0 % [facility] NEUTROPHILS ABSOLUTE AUTO 9.1 High [facility] Neutrophils/100 WBC (Bld) 72.8 % 43.0 - 75.0 % [facility] Platelet mean volume (Bld) [Entitic vol] 12.9 fL 9.5 - 13.5 fL [facility] EO # 0.1 [facility] PLT 199 [facility] RBC 4.48 [facility] WBC 12.5 High Counts include 234 beds at the [facility] ALL TYPE AND SCREENon 2024 ABO and Rh group Nom (Bld) Blood group B Rh(D) positive [facility] ALL URIC ACIDon 05-16-2025 Interpretation and review of laboratory results Abnormal [facility] Urate [Mass/Vol] 6.3 mg/dL High 2.6 - 6.0 mg/dL [facility] 05-16-2025 ALT [Catalytic activity/Vol] 18 U/L 14 - 59 U/L [facility] 05-16-2025 AST [Catalytic activity/Vol] 18 U/L 15 - 37 U/L [facility] No Panel Informationon 05-16 [facility] CREATININEon 05-16-2025 Creatinine [Mass/Vol] 0.56 mg/dL 0.55 - 1.02 mg/dL [facility] GFR/1.73 sq M.predicted CKD-EPI (S/P/Bld) [Vol rate/Area] >60 >=60 mL/min/1.73m 2 [facility] EGFR-NON AF NIGERIAN >60 >=60 mL/min/1.73m 2 [facility] US OB BPP W NON-STRESS on 05-13-2025 [place] [address] Ultrasound Report Signed Patient: JULISSA WEEMS MR#: [id number] : 1990 Acct:[id number] Age/Sex: 34 / F ADM Date: 05/13/25 Loc: US Attending Dr: Mik Borrego D.O. Ordering Physician: Mik Borrego D.O. Date of Service: 05/13/25 Procedure(s): US OB BPP w non-stress Accession Number(s): [id number] cc: Mik Borrego D.O.; Physician,Non-Staff M.David The [address] [address] Patient Name: JULISSA WEEMS MRN: [facility]:[id number] date: 1990 Sex: F Assigned Patient Location: [facility] Current Patient Location: Accession/Order Number: [id number] Exam Date: 05/13/2025 09:30 Report Date: 05/13/2025 09:31 At the request of: MIK BORREGO DO Procedure: US OB BPP w non-stress Biophysical profile. Reason for exam: Gestational diabetes COMPARISON: 05/07/2025 TECHNIQUE: Transabdominal imaging of the gravid uterus was obtained. FINDINGS: The corrosion technician reports a BPP of 8 out of 8. SARA is normal at 12.7 cm. heart rate 147 bpm. US/US OB BPP w non-stress IMPRESSION: BPP 8 out of 8. Impression dictated by: Timbo Goldstein Jr., D.O. 05/13/2025 9:31 AM Dictation Location: [place] [address] Electronically authenticated by: [id number] Y Date: 05/13/2025 09:31 Dictated By: Timbo Goldstein M.D. Signed By: 05/13/2533 DD/ 0 TD/TT: Pensionholder Information Clerk: [facility] Radiology, Radiologist, - 05/13/2025 [place] [address] Ultrasound Report Signed Patient: JULISSA WEEMS MR#: [id number] : 1990 Acct:[id number] Age/Sex: 34 / F ADM Date: 05/13/25 Loc: US Attending Dr: Mik Borrego D.O. Ordering Physician: Mik Borrego D.O. Date of Service: 05/13/25 Procedure(s): US OB BPP w non-stress Accession Number(s): [id number] cc: Mik Borrego D.O.; Physician,Non-Staff Dileep The [address] [id number] Patient Name: JULISSA WEEMS MRN: [facility]:[id number] date: 1990 Sex: F Assigned Patient Location: [facility] Current Patient Location: Accession/Order Number: [id number] Exam Date: 05/13/2025 09:30 Report Date: 05/13/2025 09:31 At the request of: MIK BORREGO DO Procedure: US OB BPP w non-stress Biophysical profile. Reason for exam: Gestational diabetes COMPARISON: 05/07/2025 TECHNIQUE: Transabdominal imaging of the gravid uterus was obtained. FINDINGS: The corrosion technician reports a BPP of 8 out of 8. SARA is normal at 12.7 cm. heart rate 147 bpm. US/US OB BPP w non-stress IMPRESSION: BPP 8 out of 8. Impression dictated by: Timbo Goldstein Jr., D.O. 05/13/2025 9:31 AM Dictation Location: [place] [address] Electronically authenticated by: [id number] Y Date: 05/13/2025 09:31 Dictated By: Timbo Goldstein M.D. Signed By: 05/13/2533 DD/ 0 TD/TT: Pensionholder Information Clerk: [facility] Radiology Study observation (narrative) [facility] US OB BPP W NON-STRESS Ordered By: Radiologist Radiology on 05-13-2025 [facility] Work Phone: Urinalysis macro (dipstick) panel (U)on 05-12-2025 Bilirubin, UA Negative Negative - 4(70) +++ mg/dL [facility] Blood, UA Negative Negative - 50 Albin/mcL [facility] Clarity, UA Cloudy [facility] Color, UA Yellow [facility] Glucose, UA Negative Negative - 2000(110) ++++ mg/dL [facility] Interpretation and review of laboratory results Abnormal [facility] Ketones, UA Negative Negative - 160(16) ++++ mg/dL [facility] Leukocytes, UA Negative Negative - 500+++ Jack/mcL [facility] Nitrite, UA Negative Negative - Positive [facility] pH, UA 7 5 - 9 [facility] Protein, UA Trace Negative - 2000(20) ++++ mg/dL [facility] Comment on above: 30 Spec Grav, UA 1.02 1 - 1.03 [facility] Urobilinogen, UA 1.0 0.2 - 12 mg/dL [facility] US OB BPP W NON-STRESS on 05-07-2025 [place] [address] Ultrasound Report Signed Patient: JULISSA WEEMS MR#: [id number] : 1990 Acct:[id number] Age/Sex: 34 / F ADM Date: 05/07/25 Loc: US Attending Dr: Mik Borrego D.O. Ordering Physician: Mik Borrego D.O. Date of Service: 05/07/25 Procedure(s): US OB BPP w non-stress Accession Number(s): [id number] cc: Mik Borrego D.O.; Physician,Non-Staff M.David The [place] [id number] Patient Name: JULISSA WEEMS MRN: [id number] date: 1990 Sex: F Assigned Patient Location: Current Patient Location: Accession/Order Number: [id number] Exam Date: 05/07/2025 12:16 Report Date: 05/07/2025 [...] Olivares M.D. 05/07/2025 12:17 PM Dictation Location: [place] [address] Electronically authenticated by: [id number] Y Date: 05/07/2025 12:17 Dictated By: Mariam Olivares M.D. Signed By: 05/07/25 1220 DD/ 1217 TD/TT: Pensionholder Information Clerk: [facility] Radiology, Radiologist, MD - 05/07/2025 [place] [address] Ultrasound Report Signed Patient: JULISSA WEEMS MR#: [id number] : 1990 Acct:[id number] Age/Sex: 34 / F ADM Date: 05/07/25 Loc: US Attending Dr: Mik Borrego D.O. Ordering Physician: Mik Borrego D.O. Date of Service: 05/07/25 Procedure(s): US OB BPP w non-stress Accession Number(s): [id number] cc: Mik Borrego D.O.; Physician,Non-Staff Dileep The [address] [address] Patient Name: JULISSA WEEMS MRN: [facility]:[id number] date: 1990 Sex: F Assigned Patient Location: Current Patient Location: Accession/Order Number: [id number] Exam Date: 05/07/2025 12:16 Report Date: 05/07/2025 [...] Olivares M.D. 05/07/2025 12:17 PM Dictation Location: [place] [address] Electronically authenticated by: [id number] Y Date: 05/07/2025 12:17 Dictated By: Mariam Olivares M.D. Signed By: 05/07/25 1220 DD/ 1217 TD/TT: Pensionholder Information Clerk: [facility] Radiology Study observation (narrative) [facility] US OB BPP W NON-STRESS Ordered By: Radiologist Radiology on 05-07-2025 [facility] Work Phone: US OB BPP W NON-STRESS on 05-06-2025 [place] [address] Ultrasound Report Signed Patient: JULISSA WEEMS MR#: [id number] : 1990 Acct:[id number] Age/Sex: 34 / F ADM Date: 05/06/25 Loc: [facility] 250-[address]: Mik Borrego D.O. Ordering Physician: Mik Borrego D.O. Date of Service: 05/06/25 Procedure(s): US OB BPP w non-stress Accession Number(s): [id number] cc: Mik Borrego D.O.; Physician,Non-Staff Dileep [address] [address] Patient Name: JULISSA WEEMS MRN: [id number] date: 1990 Sex: F Assigned Patient Location: [facility] Current Patient Location: [facility] Accession/Order Number: [id number] Exam Date: 05/06/2025 09:07 Report Date: 05/06/2025 [...] Olivares M.D. 05/06/2025 9:29 AM Dictation Location: [place] [address] Electronically authenticated by: [id number] Y Date: 05/06/2025 09:29 Dictated By: Mariam Olivares M.D. Signed By: 05/06/25 0932 DD/ 8 TD/TT: Pensionholder Information Clerk: [facility] Radiology, Radiologist, - 05/06/2025 [place] [address] Ultrasound Report Signed Patient: JULISSA WEEMS MR#: [id number] : 1990 Acct:[id number] Age/Sex: 34 / F ADM Date: 05/06/25 Loc: [facility] 250-[address]: Mik Borrego D.O. Ordering Physician: Mik Borrego D.O. Date of Service: 05/06/25 Procedure(s): US OB BPP w non-stress Accession Number(s): [id number] cc: Mik Borrego D.O.; Physician,Non-Staff Dileep The [place] [id number] Patient Name: JULISSA WEEMS MRN: [id number] date: 1990 Sex: F Assigned Patient Location: [facility] Current Patient Location: [facility] Accession/Order Number: [id number] Exam Date: 05/06/2025 09:07 Report Date: 05/06/2025 [...] Olivares M.D. 05/06/2025 9:29 AM Dictation Location: [place] [address] Electronically authenticated by: [id number] Y Date: 05/06/2025 09:29 Dictated By: Mariam Olivares M.D. Signed By: 05/06/25 0932 DD/ 8 TD/TT: Pensionholder Information Clerk: [facility] Radiology Study observation (narrative) [facility] US OB BPP W NON-STRESS Ordered By: Radiologist Radiology on 05-06-2025 [facility] Work Phone: Urinalysis macro (dipstick) panel (U)on 05-05-2025 Bilirubin, UA Negative Negative - 4(70) +++ mg/dL [facility] Blood, UA Negative Negative - 50 Albin/mcL [facility] Clarity, UA Clear [facility] Color, UA Yellow [facility] Glucose, UA Negative Negative - 1999(110) ++++ mg/dL [facility] Interpretation and review of laboratory results Abnormal [facility] Ketones, UA Positive Negative - 160(16) ++++ mg/dL [facility] Comment on above: 15 Leukocytes, UA Negative Negative - 500+++ Jack/mcL [facility] Nitrite, UA Negative Negative - Positive [facility] pH, UA 7 5 - 9 [facility] Protein, UA Negative Negative - 1999(20) ++++ mg/dL [facility] Spec Grav, UA 1.01 1 - 1.03 [facility] Urobilinogen, UA 0.2 0.2 - 12 mg/dL [facility] No Panel InformationOrdered By: Radiologist Radiology on 04-30-2025 [facility] Work Phone: No Panel Informationon 04-30 Radiology Study observation (narrative) [facility] US OB BPP W NON-STRESS on 04-30-[address] [address] Ultrasound Report Signed Patient: JULISSA WEEMS MR#: [id number] : 1990 Acct:[id number] Age/Sex: 34 / F ADM Date: 04/29/25 Loc: US Attending Dr: Mik Borrego D.O. Ordering Physician: Mik Borrego D.O. Date of Service: 04/29/25 Procedure(s): US OB BPP w non-stress Accession Number(s): [id number] cc: Mik Borrego D.O.; Physician,Non-Staff M.DNikos [address] [address] Patient Name: JULISSA WEEMS MRN: [id number] date: 1990 Sex: F Assigned Patient Location: [facility] Current Patient Location: Accession/Order Number: [id number] Exam Date: 04/30/2025 07:02 Report Date: 04/30/2025 [...] Olivares M.D. 04/30/2025 7:10 AM Dictation Location: [place] [address] Electronically authenticated by: [id number] Y Date: 04/30/2025 07:10 Dictated By: Mariam Olivares M.D. Signed By: 04/30/25 0713 DD/ 0710 TD/TT: Pensionholder Information Clerk: [facility] Radiology, Radiologist, - 04/30/[address] [address] Ultrasound Report Signed Patient: JULISSA WEEMS MR#: [id number] : 1990 Acct:[id number] Age/Sex: 34 / F ADM Date: 04/29/25 Loc: US Attending Dr: Mik Borrego D.O. Ordering Physician: Mik Borrego D.O. Date of Service: 04/29/25 Procedure(s): US OB BPP w non-stress Accession Number(s): [id number] cc: Mik Borrego D.O.; Physician,Non-Staff MHermelindo The [address] [address] Patient Name: JULISSA WEEMS MRN: [id number] date: 1990 Sex: F Assigned Patient Location: [facility] Current Patient Location: Accession/Order Number: [id number] Exam Date: 04/30/2025 07:02 Report Date: 04/30/2025 [...] Olivares M.D. 04/30/2025 7:10 AM Dictation Location: [place] [address] Electronically authenticated by: [id number] Y Date: 04/30/2025 07:10 Dictated By: Mariam Olivares M.D. Signed By: 04/30/25712 DD/ 9 TD/TT: Pensionholder Information Clerk: [facility] OB GROWTHon 04-30-2025 [place] [address] Ultrasound Report Signed Patient: JULISSA WEEMS MR#: [id number] : 1990 Acct:[id number] Age/Sex: 34 / F ADM Date: 04/29/25 Loc: US Attending Dr: Mik Borrego D.O. Ordering Physician: Mik Borrego D.O. Date of Service: 04/29/25 Procedure(s): US OB growth Accession Number(s): [id number] cc: Mik Borrego D.O.; Physician,Non-Staff Dileep [address] [address] Patient Name: JULISSA WEEMS MRN: [id number] date: 1990 Sex: F Assigned Patient Location: Current Patient Location: Accession/Order Number: [id number] Exam Date: 04/30/2025 07:02 Report Date: 04/30/2025 [...] Olivares M.D. 04/30/2025 7:10 AM Dictation Location: [place] [address] Electronically authenticated by: [id number] Y Date: 04/30/2025 07:10 Dictated By: Mariam Olivares M.D. Signed By: 04/30/25 0713 DD/ 0710 TD/TT: Pensionholder Information Clerk: [facility] Radiology, Radiologist, - 04/30/2025 [place] [address] Ultrasound Report Signed Patient: JULISSA WEEMS MR#: [id number] : 1990 Acct:[id number] Age/Sex: 34 / F ADM Date: 04/29/25 Loc: US Attending Dr: Mik Borrego D.O. Ordering Physician: Mik Borrego D.O. Date of Service: 04/29/25 Procedure(s): US OB growth Accession Number(s): [id number] cc: Mik Borrego D.O.; Physician,Non-Staff M.DNikos The [place] [id number] Patient Name: JULISSA WEEMS MRN: [facility]:[id number] date: 1990 Sex: F Assigned Patient Location: US Current Patient Location: Accession/Order Number: [id number] Exam Date: 04/30/2025 07:02 Report Date: 04/30/2025 [...] Olivares M.D. 04/30/2025 7:10 AM Dictation Location: [place] [address] Electronically authenticated by: [id number] Y Date: 04/30/2025 07:10 Dictated By: Mariam Olivares M.D. Signed By: 04/30/25712 DD/ 9 TD/TT: Pensionholder Information Clerk: [facility] Urinalysis macro (dipstick) panel (U)on 04-30-2025 Bilirubin, UA Negative Negative - 4(70) +++ mg/dL [facility] Blood, UA Negative Negative - 50 Albin/mcL [facility] Clarity, UA Clear [facility] Color, UA Yellow [facility] Glucose, UA Negative Negative - 2000(110) ++++ mg/dL [facility] Interpretation and review of laboratory results Abnormal [facility] Ketones, UA Negative Negative - 160(16) ++++ mg/dL [facility] Leukocytes, UA Negative Negative - 500+++ Jack/mcL [facility] Nitrite, UA Negative Negative - Positive [facility] pH, UA 6 5 - 9 [facility] Protein, UA Trace Negative - 2000(20) ++++ mg/dL [facility] Spec Grav, UA 1.01 1 - 1.03 [facility] Urobilinogen, UA 1.0 0.2 - 12 mg/dL [facility] US OB BPP W NON-STRESS on 04-23-[address] [address] Ultrasound Report Signed Patient: JULISSA WEEMS MR#: [id number] : 1990 Acct:[id number] Age/Sex: 34 / F ADM Date: 04/22/25 Loc: US Attending Dr: Mik Borrego D.O. Ordering Physician: Mik Borrego D.O. Date of Service: 04/22/25 Procedure(s): US OB BPP w non-stress Accession Number(s): [id number] cc: Mik Borrego D.O.; Physician,Non-Staff [place] [address] Patient Name: JULISSA WEEMS MRN: [id number] date: 1990 Sex: F Assigned Patient Location: US Current Patient Location: Accession/Order Number: [id number] Exam Date: 04/23/2025 08:01 Report Date: 04/23/2025 [...] Olivares M.D. 04/23/2025 8:03 AM Dictation Location: [place] [address] Electronically authenticated by: [id number] Y Date: 04/23/2025 08:03 Dictated By: Mariam Olivares M.D. Signed By: 04/23/25 0946 DD/ 2 TD/TT: Pensionholder Information Clerk: [facility] Radiology, Radiologist, MD - 04/23/2025 [place] [address] Ultrasound Report Signed Patient: JULISSA WEEMS MR#: [id number] : 1990 Acct:[id number] Age/Sex: 34 / F ADM Date: 04/22/25 Loc: US Attending Dr: Mik Borrego D.O. Ordering Physician: Mik Borrego D.O. Date of Service: 04/22/25 Procedure(s): US OB BPP w non-stress Accession Number(s): [id number] cc: Mik Borrego D.O.; Physician,Non-Staff [place] [facility] [place] [id number] Patient Name: JULISSA WEEMS MRN: [facility]:[id number] date: 1990 Sex: F Assigned Patient Location: US Current Patient Location: Accession/Order Number: [id number] Exam Date: 04/23/2025 08:01 Report Date: 04/23/2025 [...] Olivares M.D. 04/23/2025 8:03 AM Dictation Location: [place] [address] Electronically authenticated by: [id number] Y Date: 04/23/2025 08:03 Dictated By: Mariam Olivares M.D. Signed By: 04/23/25 0946 DD/ 0803 TD/TT: Pensionholder Information Clerk: [facility] Radiology Study observation (narrative) [facility] US OB BPP W NON-STRESS Ordered By: Radiologist Radiology on 04-23-2025 [facility] Work Phone: Urinalysis macro (dipstick) panel (U)on 04-21-2025 Bilirubin, UA Negative Negative - 4(70) +++ mg/dL [facility] Blood, UA Negative Negative - 50 Albin/mcL [facility] Clarity, UA Clear [facility] Color, UA Yellow [facility] Glucose, UA Negative Negative - 1999(110) ++++ mg/dL [facility] Interpretation and review of laboratory results Normal [facility] Ketones, UA Positive Negative - 160(16) ++++ mg/dL [facility] Leukocytes, UA Negative Negative - 500+++ Jack/mcL [facility] Nitrite, UA Negative Negative - Positive [facility] pH, UA 7 5 - 9 [facility] Protein, UA Negative Negative - 2000(20) ++++ mg/dL [facility] Spec Grav, UA 1.015 1 - 1.03 [facility] Urobilinogen, UA 0.2 0.2 - 12 mg/dL [facility] Urinalysis macro (dipstick) panel (U)on 04-14-2025 Bilirubin, UA Negative Negative - 4(70) +++ mg/dL [facility] Blood, UA Negative Negative - 50 Albin/mcL [facility] Clarity, UA Clear [facility] Color, UA Yellow [facility] Glucose, UA Negative Negative - 1999(110) ++++ mg/dL [facility] Interpretation and review of laboratory results Abnormal [facility] Ketones, UA Negative Negative - 160(16) ++++ mg/dL [facility] Leukocytes, UA Negative Negative - 500+++ Jack/mcL [facility] Nitrite, UA Negative Negative - Positive [facility] pH, UA 6.5 5 - 9 [facility] Protein, UA Negative Negative - 1999(20) ++++ mg/dL [facility] Spec Grav, UA 1.005 1 - 1.03 [facility] Urobilinogen, UA 1.0 0.2 - 12 mg/dL [facility] Urinalysis macro (dipstick) panel (U)on 04-08-2025 Bilirubin, UA Negative Negative - 4(70) +++ mg/dL [facility] Blood, UA Negative Negative - 50 Albin/mcL [facility] Clarity, UA Clear [facility] Color, UA Yellow [facility] Glucose, UA Negative Negative - 1999(110) ++++ mg/dL [facility] Interpretation and review of laboratory results Abnormal [facility] Ketones, UA Positive Negative - 160(16) ++++ mg/dL [facility] Comment on above: 40 Leukocytes, UA Trace Negative - 500+++ Jack/mcL [facility] Nitrite, UA Negative Negative - Positive [facility] pH, UA 7 5 - 9 [facility] Protein, UA Positive Negative - 1999(20) ++++ mg/dL [facility] Comment on above: 30 Spec Grav, UA 1.015 1 - 1.03 [facility] Urobilinogen, UA 0.2 0.2 - 12 mg/dL [facility] Urinalysis macro (dipstick) panel (U)on 03-24-2025 Bilirubin, UA Negative Negative - 4(70) +++ mg/dL [facility] Blood, UA Negative Negative - 50 Albin/mcL [facility] Clarity, UA Clear [facility] Color, UA Yellow [facility] Glucose, UA Negative Negative - 1999(110) ++++ mg/dL [facility] Interpretation and review of laboratory results Normal [facility] Ketones, UA Negative Negative - 160(16) ++++ mg/dL [facility] Leukocytes, UA Negative Negative - 500+++ Jack/mcL [facility] Nitrite, UA Negative Negative - Positive [facility] pH, UA 7 5 - 9 [facility] Protein, UA Negative Negative - 1999(20) ++++ mg/dL [facility] Spec Grav, UA 1.01 1 - 1.03 [facility] Urobilinogen, UA 0.2 0.2 - 12 mg/dL [facility] Urinalysis macro (dipstick) panel (U)on 02-24-2025 Bilirubin, UA Negative Negative - 4(70) +++ mg/dL [facility] Blood, UA Negative Negative - 50 Albin/mcL [facility] Clarity, UA Clear [facility] Color, UA Yellow [facility] Glucose, UA Negative Negative - 1999(110) ++++ mg/dL [facility] Interpretation and review of laboratory results Normal [facility] Ketones, UA Negative Negative - 160(16) ++++ mg/dL [facility] Leukocytes, UA Negative Negative - 500+++ Jack/mcL [facility] Nitrite, UA Negative Negative - Positive [facility] pH, UA 6.5 5 - 9 [facility] Protein, UA Negative Negative - 1999(20) ++++ mg/dL [facility] Spec Grav, UA 1.025 1 - 1.03 [facility] Urobilinogen, UA 1.0 0.2 - 12 mg/dL [facility] CHEMISTRYOrdered By: Hien Khan on 02-04-2025 Hrs Francisco 24 1 Invalid Interpretation Code [facility] Chem S U24 ProteinOrdered By: RAFAEL [employer] on 02-04-2025 U24 Total Protein 224 mg/24hr High 28-141 Rem[facility] Comment on above: Performed By: #### 1 [id number] #### [facility] [address] [place] [address] Ur Total Protein 8.8 mg/dL Invalid Interpretation Code [facility] Comment on above: Performed By: #### 1 [id number] #### [facility] [address] [place] [address] U24 Total Volon 02-04-2025 Hrs Francisco 24 Invalid Interpretation Code [facility] Comment on above: Order Comment: Order added by Discern Expert Performed By: #### 2 [id number] #### [facility] [address] [place] [address] U24 Total VolOrdered By: Col loyda Khan on 02-04-2025 Total Volume 2550 mL Invalid Interpretation Code [facility] Chem S Comment on above: Order Comment: Order added by Discern Expert Performed By: #### 2 [id number] #### [facility] [address] [place] [address] BNPon 01-27-2025 Int Ctr BNP Pass Normal [facility] Comment on above: Performed By: #### 1 [id number] #### [facility] [address] [place] [address] Natriuretic peptide B (Bld) [Mass/Vol] pg/mL Low 5-80 [facility] Comment on above: Performed By: #### 1 [id number] #### [facility] [address] [place] [address] CBC w/ Auto Diffon 5 Basophils/100 WBC (Bld) 0.3 % Normal 0.0-2.0 [facility] Comment on above: Performed By: #### 2 [id number] #### [facility] [address] [place] [address] Basophils/Leukocytes Auto (Bld) [Pure # fraction] 0.0 E9/L Normal 0.0-0.2 [facility] Comment on above: Performed By: #### 2 [id number] #### [facility] [address] [place] [address] Eosinophils (Bld) [#/Vol] 0.1 E9/L Normal 0.0-0.5 [facility] Comment on above: Performed By: #### 2 [id number] #### [facility] [address] [place] [address] Eosinophils/100 WBC (Bld) 0.9 % Normal 0.0-8.0 [facility] Comment on above: Performed By: #### 2 [id number] #### [facility] [address] [place] [address] Erythrocyte distribution width (RBC) [Ratio] 13.5 % Normal 10.9-14.2 [facility] Comment on above: Performed By: #### 2 [id number] #### [facility] [address] [place] [address] Hematocrit (Bld) [Volume fraction] 39.2 % Normal 34.0-46.0 [facility] Comment on above: Performed By: #### 2 [id number] #### [facility] [address] [place] [address] Hemoglobin (Bld) [Mass/Vol] 13.2 g/dL Normal 12.0-16.0 [facility] Comment on above: Performed By: #### 2 [id number] #### [facility] [address] [place] [address] Lymphocytes (Bld) [#/Vol] 2.1 E9/L Normal 1.0-4.0 [facility] Comment on above: Performed By: #### 2 [id number] #### [facility] [address] [place] [address] Lymphocytes/100 WBC (Bld) 14.3 % Normal 14.0-50.0 [facility] Comment on above: Performed By: #### 2 [id number] #### [facility] [address] [place] [address] MCH (RBC) [Entitic mass] 29.0 pg Normal 27.0-34.0 [facility] Comment on above: Performed By: #### 2 [id number] #### [facility] [address] [place] [address] MCHC (RBC) [Mass/Vol] 33.7 g/dL Normal 31.4-36.0 [facility] Comment on above: Performed By: #### 2 [id number] #### [facility] [address] [place] [address] MCV (RBC) [Entitic vol] 86.2 fL Normal 80.0-100.0 [facility] Comment on above: Performed By: #### 2 [id number] #### [facility] [address] [place] [address] Monocytes (Bld) [#/Vol] 0.6 E9/L Normal 0.2-1.0 [facility] Comment on above: Performed By: #### 2 [id number] #### [facility] [address] [place] [address] Neutrophils (Bld) [#/Vol] 11.8 E9/L High 2.0-7.5 [facility] Comment on above: Performed By: #### 2 [id number] #### [facility] [address] [place] [address] Neutrophils/100 WBC (Bld) 80.6 % High 36.0-75.0 [facility] Comment on above: Performed By: #### 2 [id number] #### [facility] [address] [place] [address] Platelet 302.0 E9/L Normal 150.0-500.0 [facility] Comment on above: Performed By: #### 2 [id number] #### [facility] [address] [place] [address] Platelet mean volume (Bld) [Entitic vol] 9.4 fL Normal 6.4-10.8 [facility] Comment on above: Performed By: #### 2 [id number] #### [facility] [address] [place] [address] RBC (Bld) [#/Vol] 4.6 E12/L Normal 4.3-5.9 [facility] Comment on above: Performed By: #### 2 [id number] #### [facility] [address] [place] [address] WBC corrected for nucl RBC Auto (Bld) [#/Vol] 14.6 E9/L High 4.0-11.0 [facility] Comment on above: Performed By: #### 2 [id number] #### [facility] [address] [place] [address] CHEMISTRYOrdered By: SYSTEM SYSTEM on 01-27-2025 Albumin [...] [Mass/Vol] pg/mL Low 5 - 80 pg/mL [facility] Kwabena BLANCOon 01-27-2025 Albumin [Mass/Vol] 3.9 g/dL Normal 3.3-5.0 [facility] Comment on above: Performed By: #### 2 [id number] #### [facility] [address] [place] [address] Albumin/Globulin (S) [Mass conc ratio] 1.2 Normal 1.1-2.2 [facility] Comment on above: Performed By: #### 2 [id number] #### [facility] [address] [place] [address] ALP [Catalytic activity/Vol] 46 Int._Unit/L Normal 21-98 [facility] Comment on above: Performed By: #### 2 [id number] #### [facility] [address] [place] [address] ALT No additional P-5'-P [Catalytic activity/Vol] 18 Int._Unit/L Normal 6-46 [facility] Comment on above: Performed By: #### 2 [id number] #### [facility] [address] [place] [address] Anion gap [Moles/Vol] 12 mmol/L Normal 6-16 [facility] Comment on above: Performed By: #### 2 [id number] #### [facility] [address] [place] [address] AST [Catalytic activity/Vol] 19 Int._Unit/L Normal 5-43 [facility] Comment on above: Performed By: #### 2 [id number] #### [facility] [address] [place] [address] Bilirubin [Mass/Vol] 0.4 mg/dL Normal 0.0-1.1 [facility] Comment on above: Performed By: #### 2 [id number] #### [facility] [address] [place] [address] Calcium [Mass/Vol] 9.5 mg/dL Normal 8.9-11.1 [facility] Comment on above: Performed By: #### 2 [id number] #### [facility] [address] [place] [address] Chloride [Moles/Vol] 104 mmol/L Normal 101-111 [facility] Comment on above: Performed By: #### 2 [id number] #### [facility] [address] [place] [address] CO2 [Moles/Vol] 22 mmol/L Normal 21-31 [facility] Comment on above: Performed By: #### 2 [id number] #### [facility] [address] [place] [address] Creatinine [Mass/Vol] 0.5 mg/dL Normal 0.5-1.3 [facility] Comment on above: Performed By: #### 2 [id number] #### [facility] [address] [place] [address] Globulin (S) [Mass/Vol] 3.2 g/dL Normal 1.4-4.0 [facility] Comment on above: Performed By: #### 2 [id number] #### [facility] [address] [place] [address] Glucose [Mass/Vol] 131 mg/dL Normal 55-199 [facility] Comment on above: Performed By: #### 2 [id number] #### [facility] [address] [place] [address] Potassium [Moles/Vol] 3.4 mmol/L Low 3.5-5.3 [facility] Comment on above: Performed By: #### 2 [id number] #### [facility] [address] [place] [address] Protein [Mass/Vol] 7.1 g/dL Normal 6.0-7.8 [facility] Comment on above: Performed By: #### 2 [id number] #### [facility] [address] [place] [address] Sodium [Moles/Vol] 135 mmol/L Normal 135-145 [facility] Comment on above: Performed By: #### 2 [id number] #### [facility] [address] [place] [address] Urea nitrogen [Mass/Vol] 9 mg/dL Normal 5-21 [facility] Comment on above: Performed By: #### 2 [id number] #### [facility] [address] [place] [address] Urea nitrogen/Creatinine [Mass ratio] 18 No Units Normal 10-20 [facility] Comment on above: Performed By: #### 2 [id number] #### [facility] [address] [place] [address] HEMATOLOGYOrdered By: SYSTEM SYSTEM on 01-27-2025 Basophils/100 [...] LDHon 01-27-2025 LDH 158 Int._Unit/L Normal 93-218 [facility] Comment on above: Performed By: #### 2 [id number] #### [facility] [address] [place] [address] Uric Acidon 01-27-2025 Urate [Mass/Vol] 4.6 mg/dL Normal 2.2-7.4 [facility] Comment on above: Performed By: #### 2 [id number] #### [facility] [address] [place] [address] Urinalysis macro (dipstick) panel (U)on 01-27-2025 Bilirubin, UA Negative Negative - 4(70) +++ mg/dL [facility] Blood, UA Negative Negative - 50 Albin/mcL [facility] Clarity, UA Clear [facility] Color, UA Yellow [facility] Glucose, UA Negative Negative - 2000(110) ++++ mg/dL [facility] Interpretation and review of laboratory results Normal [facility] Ketones, UA Negative Negative - 160(16) ++++ mg/dL [facility] Leukocytes, UA Negative Negative - 500+++ Jack/mcL [facility] Nitrite, UA Negative Negative - Positive [facility] pH, UA 6 5 - 9 [facility] Protein, UA Negative Negative - 2000(20) ++++ mg/dL [facility] Spec Grav, UA 1.005 1 - 1.03 [facility] Urobilinogen, UA 0.2 0.2 - 12 mg/dL [facility] eGFRon 01-27-2025 eGFR 124 mL/min/1.73 m2 Normal >=59 [facility] Comment on above: Performed By: #### 1 [id number] #### [facility] [address] [place] [address] GLUCOSE TOLERANCE 3 HOURon 0 01-20-2025 GLUCOSE TOLERANCE 3 HOUR High mg/dL [facility] Comment on above: GLU FAST 92 (<95) Co l: 01/20/25 0948 GLU 1HR 205H (<180) Col: 01/20/25 1050 GLU 2HR 220H (<155) Col: 01/20/25 1150 GLU 3HR 107 (<140) Col: 01/20/25 1250 Interpretation and review of laboratory results Abnormal [facility] Glucose 1h post 50g loadon 0 12-30-2024 Glucose, 1Hr PP 163 [facility] RECURRENT VAGINITIS (HTRX)on 12-25-2024 ATOPOBIUM VAGINAE 0 [facility] ATOPOBIUM VAGINAE Not detected [facility] BVAB 2,3 (BACTERIAL VAGINOSIS ASSOCIATED BACTERIA 2, 3); MOBILUNCUS SPP 0 [facility] BVAB 2,3 (BACTERIAL VAGINOSIS ASSOCIATED BACTERIA 2, 3); MOBILUNCUS SPP Not detected [facility] KACEY ALBICANS, PARAPSILOSIS, TROPICALIS 0 [facility] KACEY ALBICANS, PARAPSILOSIS, TROPICALIS Not detected [facility] KACEY GLABRATA 0 [facility] KACEY GLABRATA Not detected [facility] KACEY KRUSEI 0 [facility] KACEY KRUSEI Not detected [facility] CHLAMYDIA TRACHOMATIS 0 [facility] CHLAMYDIA TRACHOMATIS Not detected N [facility] GARDNERELLA VAGINALIS 0 [facility] GARDNERELLA VAGINALIS Not detected N [facility] MEGASPHAERA (TYPES 1, 2) 0 [facility] MEGASPHAERA (TYPES 1, 2) Not detected [facility] MYCOPLASMA GENITALIUM 0 NOM S [facility] MYCOPLASMA GENITALIUM Not detected N [facility] NEISSERIA GONORRHOEAE 0 NOM S [facility] NEISSERIA GONORRHOEAE Not detected N [facility] TRICHOMONAS VAGINALIS 0 NOM S [facility] TRICHOMONAS VAGINALIS Not detected N [facility] Urinalysis macro (dipstick) panel (U)on 12-23-2024 Bilirubin, UA Negative Negative - 4(70) +++ mg/dL [facility] Blood, UA Negative Negative - 50 Albin/mcL [facility] Clarity, UA Clear [facility] Color, UA Yellow [facility] Glucose, UA Negative Negative - 1999(110) ++++ mg/dL [facility] Interpretation and review of laboratory results Abnormal [facility] Ketones, UA Positive Negative - 160(16) ++++ mg/dL [facility] Comment on above: 40mg/dL Leukocytes, UA Negative Negative - 500+++ Jack/mcL [facility] Nitrite, UA Negative Negative - Positive [facility] pH, UA 5.5 5 - 9 [facility] Protein, UA Negative Negative - 1999(20) ++++ mg/dL [facility] Spec Grav, UA 1.025 1 - 1.03 [facility] Urobilinogen, UA 0.2 0.2 - 12 mg/dL [facility] Urinalysis macro (dipstick) panel (U)on 11-25-2024 Bilirubin, UA Positive Negative - 4(70) +++ mg/dL [facility] Blood, UA Negative Negative - 50 Albin/mcL [facility] Clarity, UA Clear [facility] Color, UA Yellow [facility] Glucose, UA Negative Negative - 1999(110) ++++ mg/dL [facility] Interpretation and review of laboratory results Abnormal [facility] Ketones, UA Positive Negative - 160(16) ++++ mg/dL [facility] Leukocytes, UA Negative Negative - 500+++ Jack/mcL [facility] Nitrite, UA Negative Negative - Positive [facility] pH, UA 6 5 - 9 [facility] Protein, UA Positive Negative - 1999(20) ++++ mg/dL [facility] Spec Grav, UA 1.025 1 - 1.03 [facility] Urobilinogen, UA 0.2 0.2 - 12 mg/dL [facility] HIV 1&2 AB/AG Screen (P24 AG )on 11-11-2024 HIV 1&2 AB/AG Non-Reactive [facility] Hepatitis C(HCV) Ab w/ Refle x to PCRon 11-11-2024 HCV Ab Ql (S) Non-Reactive [facility] No Panel Informationon 11-11 [facility] Rubella IGG immune statuson 11-11-2024 Rubella immune IgG 1.78 [facility] ALL CBC WITH AUTO DIFFon BASOPHILS ABSOLUTE AUTO 0.1 [facility] Basophils/100 WBC (Bld) 0.5 % 0.2 - 2.0 % [facility] Eosinophils/100 WBC (Bld) 1 % 0.9 - 7.0 % [facility] Erythrocyte distribution width (RBC) [Ratio] 12.4 % 11.0 - 15.0 % [facility] IMMATURE GRANULOCYTES ABS AUTO 0.06 High [facility] Immature granulocytes/100 WBC (Bld) 0.5 % 0.0 - 0.5 % [facility] Interpretation and review of laboratory results Abnormal [facility] LYMPHOCYTES ABSOLUTE AUTO 3 [facility] Lymphocytes/100 WBC (Bld) 24.2 % 20.5 - 60.0 % [facility] MCH (RBC) [Entitic mass] 29.2 pg 26.7 - 34.0 pg [facility] MCHC (RBC) [Mass/Vol] 33.5 g/dL 29.9 - 35.2 g/dL [facility] MCV (RBC) [Entitic vol] 87.1 fL 81.0 - 99.0 fL [facility] MONOCYTES ABSOLUTE AUTO 0.8 [facility] Monocytes/100 WBC (Bld) 6.4 % 1.7 - 12.0 % [facility] NEUTROPHILS ABSOLUTE AUTO 8.5 High [facility] Neutrophils/100 WBC (Bld) 67.4 % 43.0 - 75.0 % [facility] Platelet mean volume (Bld) [Entitic vol] 10.1 fL 9.5 - 13.5 fL [facility] TBH EO # 0.1 [facility] TB PLT 357 [facility] RBC 4.8 [facility] WBC 12.6 High [facility] CLINISYNC CBC without diffOrdered By: Lindsey Ramos on 11-08-2024 Platelets (Bld) [#/Vol] 357 10*3/uL [facility] Rbc Mcv (Fl) By Automated Count 87.1 [facility] Drug Screen, Urineon 025 Amphetamine/Methamphet amine Negative [facility] Barbiturates Negative [facility] Benzodiazepines Negative [facility] Cocaine Metabolite Negative [facility] Opiates Negative [facility] Oxycodone Negative [facility] Phencyclidine Negative [facility] Thc Marijuana, Urine Negative [facility] Hemoglobin A1con 11-08-2024 HbA1c (Bld) [Mass fraction] 5.8 % 4.0 - 6.0 % [facility] Hepatitis B surface antigeno n 11-08-2024 Hepatitis B Surface Antigen Negative [facility] Laboratory - Hematology and Cell countson 11-08-2024 Hematocrit (Bld) [Volume fraction] 41.8 % [facility] Hemoglobin (Bld) [Mass/Vol] 14 g/dL [facility] No Panel Informationon 11-08 [facility] Type and screenon 11-08-2024 Abo/Rh(D) Positive [facility] Rh_Intep Negative [facility] HCG ( test) Ql (U)o n 10-24-2024 Interpretation and review of laboratory results Abnormal [facility] Preg Test, Ur Positive Negative [facility] US OB TRANSVAGINALon 025 US OB [...] x 2.5 cm (6 weeks, 5 days). [place] rump length is 0.9 cm (7 weeks, [...] UA Negative Negative - 4(70) +++ mg/dL [facility] Blood, UA Negative Negative - 50 Albin/mcL [facility] Clarity, UA Clear [facility] Color, UA Yellow [facility] Glucose, UA Negative Negative - 1999(110) ++++ mg/dL [facility] Interpretation and review of laboratory results Normal [facility] Ketones, UA Negative Negative - 160(16) ++++ mg/dL [facility] Leukocytes, UA Negative Negative - 500+++ Jack/mcL [facility] Nitrite, UA Negative Negative - Positive [facility] pH, UA 6 5 - 9 [facility] Protein, UA Negative Negative - 1999(20) ++++ mg/dL [facility] Spec Grav, UA 1.015 1 - 1.03 [facility] Urobilinogen, UA 0.2 0.2 - 12 mg/dL [facility] IGP,APTIMA HPV,AGE GDLNon AGE GDLN ACOG TESTING Note . [facility] Comment on above: TESTS RESULT FLAG UN ITS REF RANGE LAB Clinician Provided Cytology Information Source.............Cervix No. of containers..01 ThinPrep Vial Age Aliyah COLMENARES Yumiko... FLAG LEGEND: L-Low Normal,H-High Normal,LL-Alert Low,HH-Alert High <-Panic Low,>-Panic High,A-Abnormal,AA-Critical Abnormal Performed at: 01 =[address] [id number] Nina Julien MD, HPV APTIMA Negative Negative [facility] Comment on above: This nucleic acid am plification test detects fourteen high- risk HPV types (16,18,31,33,35,39,45,51,52,56,58,59,66,68) without differentiation. Performed at: =[address] [id number] Director Of Operations For Therapy: Nina Julien MD, Phone: [phone] Performed at: [address] [id number] Director Of Operations For Therapy: Nina Julien MD, Phone: [phone] IGP, APTIMA HPV, RFX 16/18,45 Note . [facility] Comment on above: TESTS RESULT FLAG UN ITS REF RANGE LAB DIAGNOSIS: 02 NEGATIVE FOR INTRAEPITHELIAL LESION OR MALIGNANCY. THIS SPECIMEN WAS RESCREENED PART OF OUR COMIC ARTIST PROGRAM. Specimen adequacy: 02 Satisfactory for evaluation. Endocervical and/or squamous metaplastic cells (endocervical component) are present. Performed by: 02 Jasmine Collins, [employer]aire[employer] ([facility]) QC reviewed by: 02 Binta Coyne, [employer]aire[employer] ([facility]) . 02 Note: Note 02 The Pap [...] Low,>-Panic High,A-Abnormal,AA-Critical Abnormal Performed at: [address] [address] Nina Julien MD, SWAB-SPATULA CERVIX [facility] BLOOD BANKOrdered By: Jacob guzman on 05-12-2022 ABO/Rh Interp Positive Invalid Interpretation Code [facility] BB Subsection ABSC Gel Interp Negative (05/12/22 5:12 AM) Normal [facility] BB Subsection SEROLOGYOrdered By: Riya kenney on 05-12-2022 HCG.beta subunit (U) [Moles/Vol] Negative Normal [facility] Man Sero URINALYSISOrdered By: Riya Quarles on [...] AM) Normal Negative [facility] UA Auto SS Oliver.plasma/Oliver .RBC (Bld) [Mass ratio] 0-3 /HPF Normal [...] [facility] UA Auto SS Urobilinogen Qn (U) 0.1595148 {Lazaro'U}/dL Normal 0.0 - 1.0 EU/dL [facility] [...] AM) Normal Negative [facility] UA Auto SS Oliver.plasma/Oliver .RBC (Bld) [Mass ratio] 0-3 /HPF Normal [...] [facility] UA Auto SS Urobilinogen Qn (U) 0.1788092 {Lazaro'U}/dL Normal 0.0 - 1.0 EU/dL [facility] UA Auto SS WBC Auto Ql (U) Negative (05/12/22 9:58 AM) Normal Negative [facility] UA Auto SS WBC LM.HPF (Urine sed) [#/Area] 0-5 /HPF Normal 0-5/HPF [facility] UA Auto SS BLOOD BANKOrdered By: Hillary Coppola on 05-11-2022 ABO/Rh Retype Interp Positive Invalid Interpretation Code [facility] BB Subsection CHEMISTRYOrdered By: SYSTEM SYSTEM on [...] rate/Area] mL/min/1.73 m2 Normal >=59mL/min/1 .73 m2 [facility] Chem S GFR/1.73 sq M.predicted among non-blacks MDRD (S/P/Bld) [Vol rate/Area] mL/min/1.73 m2 Normal >=59mL/min/1 .73 m2 [facility] Chem S Globulin (S) [Mass/Vol] 2.8 g/dL [...] Summaryon 05-26-2020 Coding Summary CODING DATE: 05/26/2020 [facility] STATUS: Home PAYOR: Commercial Insurance ADMIT [...] Essie Beyer Date Saved: 05/26/2020 10:38 am Normal [facility] ED Note-Nursingon 05-26-2020 ED Note-Nursing Pt calls and gives verbal permission to copy lab result and mail to her home. 2 identifiers given. [facility] Consent Formson 05-25-2020 Consent Forms [id number] [facility] .QC Respiratory Panel 2.1 (B ioFire)on 05-23-2020 Internal Control-Resp Panel 2.1(BioFire) Pass [facility] Comment on above: Order Comment: Order ed by Discern. [[id number]] Performed By: #### 6 [id number], [id number] #### [facility] (DEFAULT) [address] [place] [address] ED Clinical Summaryon 2019 ED Clinical Summary [facility] ? Urgent Care [address] [place], [place] [id number] Clinical Summary PERSON INFORMATION Name: JULISSA WEEMS Age: 29 Years Sex: FEMALE : 1990 MRN: Acct#: Visit Reason: FEVER, SOB, COUGH Arrival: 05/23/2020 13:31:24 Discharge: 05/23/2020 14:23:00 LOS: 000 00:52 Check In: 05/23/2020 13:31:24 Checkout: 05/23/2020 14:23:00 Address: [address] [place] [address] PCP: Provider, None PROVIDER INFORMATION Provider Role [...] EDUCATION INFORMATION Instructions: Upper Respiratory Infection, Adult, Ujoz-ua-Gqgg Follow-Up: With: Address: When: Jaime Esquivel [facility], [address] [place] [id number] Business (1) Comments: Please follow-up with your primary care doctor or 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 Urgent Care [address] [id number] PATIENT DISCHARGE INSTRUCTIONS Patient Information Name: JULISSA WEEMS Age: 29 Years Date of : 1990 Reason For Visit: FEVER, SOB, COUGH Arrival Time: 05/23/2020 13:31:24 Primary Care Physician: Provider, None Attending Physician: Heath Argueta PA-C Comment: Patient Education With: Address: When: Jaime [facility], [address] [place], [place] [address] Business (1) Comments: Please follow-up with your primary care doctor or Dr. 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 General instructions ? Take nlcu-anq-cuntdgu and prescription medicines only as told by [...] not have soap and water, use hand sand sifter. ? Avoid touching your mouth, face, eyes, [...] get better within 7?10 days. ? Take xuuw-khq-frmihxh and prescription medicines only as told by your doctor. This information is not intended to replace advice given to you by your health care provider. Make sure you discuss any questions you have with your health care provider. Document Released: 03/27/2009 Document Revised: 06/01/2018 Document Reviewed: 06/01/2018 [employer] Interactive Patient Education ? 2019 [employer] Medication Information: The exam and treatment you received today in the [facility] Emergency Department were for an urgent problem and are not intended as complete care. It is important for you to follow up with a doctor, nurse practitioner, or physician?s mortgage assistant for ongoing care. If your symptoms [...] so we can reach you if necessary. [facility] Emergency Department has provided you with a complete list of medications post discharge. Please inform your instructor knitting/provider of your visit and for further instruction on these medications. Any specific questions regarding your chronic medications and dosages should be discussed with your primary care physician(s) and/or pharmacist. New Medications [id number], [address] [place], [place] [id number], [phone] homatropine-HYDROcod one (homatropine-hydroco done 1.5 mg-5 mg/5 [...] for Disease Control and Prevention June 2014 [facility] Patient Handouton 05-23-2020 Patient Handout [...] other clear broths. General instructions ? Take ybbk-unz-ieucadi and prescription medicines only as told by [...] not have soap and water, use hand sand sifter. ? Avoid touching your mouth, face, eyes, [...] get better within 7?10 days. ? Take elng-bph-oxmrfmg and prescription medicines only as told by your doctor. This information is not intended to replace advice given to you by your health care provider. Make sure you discuss any questions you have with your health care provider. Document Released: 03/27/2009 Document Revised: 06/01/2018 Document Reviewed: 06/01/2018 Else[employer] Interactive Patient Education ? 2019 [employer] Normal [facility] Respiratory Panel 2.1 (BioFi re)on 05-23-2020 Adenovirus -BioFire Not Detected Normal Not Detected [facility] Comment on above: Performed By: #### 6 [id number], [id number] #### [facility] (DEFAULT) [address] [place] [address] Bordetella parapertussis -BioFire Not Detected Normal Not Detected [facility] Comment on above: Performed By: #### 6 [id number], [id number] #### [facility] (DEFAULT) [address] [place] [address] Bordetella pertussis -BioFire Not Detected Normal Not Detected [facility] Comment on above: Performed By: #### 6 [id number], [id number] #### [facility] (DEFAULT) [address] [place] [address] Chlamydia pneumoniae -BioFire Not Detected Normal Not Detected [facility] Comment on above: Performed By: #### 6 [id number], [id number] #### [facility] (DEFAULT) [address] [place] [address] Coronavirus 229E (Not COVID-19) -BioFire Not Detected Normal Not Detected [facility] Comment on above: Performed By: #### 6 [id number], [id number] #### [facility] (DEFAULT) [address] [place] [address] Coronavirus HKU1 (Not COVID-19) -BioFire Not Detected Normal Not Detected [facility] Comment on above: Performed By: #### 6 [id number], [id number] #### [facility] (DEFAULT) [address] [place] [address] Coronavirus NL63 (Not COVID-19) -BioFire Not Detected Normal Not Detected [facility] Comment on above: Performed By: #### 6 [id number], [id number] #### [facility] (DEFAULT) [address] [place] [address] Coronavirus OC43 (Not COVID-19) -BioFire Not Detected Normal Not Detected [facility] Comment on above: Performed By: #### 6 [id number], [id number] #### [facility] (DEFAULT) [address] [place] [address] Human Metapneumovirus -BioFire Not Detected Normal Not Detected [facility] Comment on above: Performed By: #### 6 [id number], [id number] #### [facility] (DEFAULT) [address] [place] [address] Human Rhinovirus/Enterovirus -BioFire Detected Abnormal Not Detected [facility] Comment on above: Performed By: #### 6 [id number], [id number] #### [facility] (DEFAULT) [address] [place] [address] Influenza A (no subtype) -BioFire Not Detected Normal Not Detected [facility] Comment on above: Performed By: #### 6 [id number], [id number] #### [facility] (DEFAULT) [address] [place] [address] Influenza A -BioFire Not Detected Normal Not Detected [facility] Comment on above: Performed By: #### 6 [id number], [id number] #### [facility] (DEFAULT) [address] [place] [address] Influenza A H1 -BioFire Not Detected Normal Not Detected [facility] Comment on above: Performed By: #### 6 [id number], [id number] #### [facility] (DEFAULT) [address] [place] [address] Influenza A H1-2009 -BioFire Not Detected Normal Not Detected [facility] Comment on above: Performed By: #### 6 [id number], [id number] #### [facility] (DEFAULT) [address] [place] [address] Influenza A H3 -BioFire Not Detected Normal Not Detected [facility] Comment on above: Performed By: #### 6 [id number], [id number] #### [facility] (DEFAULT) [address] [place] [address] Influenza B -BioFire Not Detected Normal Not Detected [facility] Comment on above: Performed By: #### 6 [id number], [id number] #### [facility] (DEFAULT) [address] [place] [address] Mycoplasma pneumoniae -BioFire Not Detected Normal Not Detected [facility] Comment on above: Performed By: #### 6 [id number], [id number] #### [facility] (DEFAULT) [address] [place] [address] Parainfluenza Virus 1 -BioFire Not Detected Normal Not Detected [facility] Comment on above: Performed By: #### 6 [id number], [id number] #### [facility] (DEFAULT) [address] [place] [address] Parainfluenza Virus 2 -BioFire Not Detected Normal Not Detected [facility] Comment on above: Performed By: #### 6 [id number], [id number] #### [facility] (DEFAULT) [address] [place] [address] Parainfluenza Virus 3 -BioFire Not Detected Normal Not Detected [facility] Comment on above: Performed By: #### 6 [id number], [id number] #### [facility] (DEFAULT) [address] [place] [address] Parainfluenza Virus 4 -BioFire Not Detected Normal Not Detected [facility] Comment on above: Performed By: #### 6 [id number], [id number] #### [facility] (DEFAULT) [address] [place] [address] Respiratory Syncytial Virus -BioFire Not Detected Normal Not Detected [facility] Comment on above: Performed By: #### 6 [id number], [id number] #### [facility] (DEFAULT) [address] [place] [address] SARS-CoV-2 (COVID-19) -BioFire Not Detected Normal Not Detected [facility] Comment on above: Performed By: #### 6 [id number], [id number] #### [facility] (DEFAULT) [address] [place] [address] Urgent Care [place] 020 Urgent Care Record [facility] ? Urgent Care [address] [place] [address] PATIENT DISCHARGE INSTRUCTIONS Patient Information Name: JULISSA [...] legal documents With: Address: When: Jaime Esquivel [facility], [address] [place], [place] [phone] Business (1) Comments: Please follow-up with your primary care doctor or Dr. Esquivel, medical doctor manager flight operations, their office schedule an appointment to be seen in 3 to 5 days for continued care, take only Tylenol for headaches or fevers, drink plenty of water for hydration, notified with your COVID-19 results, and return back to the urgent care center for any worsening symptoms, concerns, or complications. Medication Information: The exam and treatment you received today in the [facility] Urgent Care were for an urgent problem and are not intended as complete care. It is important for you to follow up with a doctor, nurse practitioner, or physician?s mortgage assistant for ongoing care. If your symptoms [...] so we can reach you if necessary. [facility] Urgent Care has provided you with a complete list of medications post discharge. Please inform your instructor knitting/provider of your visit and for further instruction on these medications. Any specific questions regarding your chronic medications and dosages should be discussed with your primary care physician(s) and/or pharmacist. New Medications [id number], [address] [place], [place] [id number], [phone] homatropine-HYDROcod one (homatropine-hydroco done 1.5 mg-5 mg/5 [...] other clear broths. General instructions ? Take ldcn-yuk-asskvsr and prescription medicines only as told by [...] not have soap and water, use hand sand sifter. ? Avoid touching your mouth, face, eyes, [...] get better within 7?10 days. ? Take hcoj-ovh-gelkqpn and prescription medicines only as told by your doctor. This information is not intended to replace advice given to you by your health care provider. Make sure you discuss any questions you have with your health care provider. Document Released: 03/27/2009 Document Revised: 06/01/2018 Document Reviewed: 06/01/2018 [employer] Interactive Patient Education ? 2019 [employer] Viruses or Bacteria What?s got you [...] for Disease Control and Prevention June 2014 [facility] Vital Signs Date Time Vital Sign Value Performing Clinician Facility 05-12-2025 09:19-0400 Body mass index (BMI) [Ratio] 34.52 kg/m2 [email or web address] DO Work Phone: [facility] 05-12-2025 09:19-0400 Body weight 99.97 kg [employer] DO Work Phone: [facility] 05-12-2025 09:19-0400 Diastolic blood pressure 80 mm[Hg] [employer] DO Work Phone: [facility] 05-12-2025 09:19-0400 Systolic blood pressure 138 mm[Hg] [employer] DO Work Phone: [facility] 05-05-2025 09:20-0400 Body mass index (BMI) [Ratio] 33.85 kg/m2 [email or web address] DO Work Phone: [facility] 05-05-2025 09:20-0400 Body weight 98.03 kg Mik [employer] DO Work Phone: [facility] 05-05-2025 09:20-0400 Diastolic blood pressure 86 mm[Hg] Mik El[employer] DO Work Phone: [facility] Comment on above: 130/86- recheck 05-05-2025 09:20-0400 Systolic blood pressure 140 mm[Hg] [employer] DO Work Phone: [facility] Comment on above: 130/86- recheck 04-30-2025 14:13-0400 Body mass index (BMI) [Ratio] 34.27 kg/m2 Lindsey GONZALEZ Work Phone: [facility] 04-30-2025 14:13-0400 Body weight 99.25 kg Lindsey GONZALEZ Work Phone: [facility] 04-30-2025 14:13-0400 Diastolic blood pressure 90 mm[Hg] Lindsey GONZALEZ Work Phone: [facility] 04-30-2025 14:13-0400 Systolic blood pressure 146 mm[Hg] Lindsey Cobb PA Work Phone: [facility] 04-21-2025 15:39-0400 Body mass index (BMI) [Ratio] 33.83 kg/m2 [employer] El[employer] DO Work Phone: [facility] 04-21-2025 15:39-0400 Body weight 97.98 kg Mik Elmo DO Work Phone: [facility] 04-21-2025 15:39-0400 Diastolic blood pressure 80 mm[Hg] Mik Elmo DO Work Phone: [facility] 04-21-2025 15:39-0400 Systolic blood pressure 124 mm[Hg] Mik Elmo DO Work Phone: [facility] 04-14-2025 09:03-0400 Body mass index (BMI) [Ratio] 33.8 kg/m2 Mik El[employer] DO Work Phone: [facility] 04-14-2025 09:03-0400 Body weight 97.89 kg Mik El[employer] DO Work Phone: [facility] 04-14-2025 09:03-0400 Diastolic blood pressure 82 mm[Hg] Mik Elmo DO Work Phone: [facility] 04-14-2025 09:03-0400 Systolic blood pressure 126 mm[Hg] Mik Elmo DO Work Phone: [facility] 04-08-2025 11:38-0400 Body mass index (BMI) [Ratio] 33.36 kg/m2 Mik [employer] DO Work Phone: [facility] 04-08-2025 11:38-0400 Body weight 96.62 kg Mik Elmo DO Work Phone: [facility] 04-08-2025 11:38-0400 Diastolic blood pressure 78 mm[Hg] Mik Elmo DO Work Phone: [facility] 04-08-2025 11:38-0400 Systolic blood pressure 122 mm[Hg] Mik Elmo DO Work Phone: [facility] 03-24-2025 11:35-0400 Body mass index (BMI) [Ratio] 33.52 kg/m2 Mik El[employer] DO Work Phone: [facility] 03-24-2025 11:35-0400 Body weight 97.07 kg Mik Elmo DO Work Phone: [facility] 03-24-2025 11:35-0400 Diastolic blood pressure 80 mm[Hg] Mik Elmo DO Work Phone: [facility] 03-24-2025 11:35-0400 Systolic blood pressure 130 mm[Hg] Mik Elmo DO Work Phone: [facility] 02-24-2025 10:50-0400 Body mass index (BMI) [Ratio] 33.05 kg/m2 Mik El[employer] DO Work Phone: [facility] 02-24-2025 10:50-0400 Body weight 95.71 kg Mik Elmo DO Work Phone: [facility] 02-24-2025 10:50-0400 Diastolic blood pressure 74 mm[Hg] Mik Elmo DO Work Phone: [facility] 02-24-2025 10:50-0400 Systolic blood pressure 122 mm[Hg] Mik Elmo DO Work Phone: [facility] 01-27-2025 08:51-0400 Body mass index (BMI) [Ratio] 33.11 kg/m2 Mik Elmo DO Work Phone: [facility] 01-27-2025 08:51-0400 Body weight 95.89 kg Mik Elmo DO Work Phone: [facility] 01-27-2025 08:51-0400 Diastolic blood pressure 80 mm[Hg] Mik Elmo DO Work Phone: [facility] 01-27-2025 08:51-0400 Systolic blood pressure 136 mm[Hg] Mik Elmo DO Work Phone: [facility] 01-21-2025 09:05-0400 Body height 171.5 cm Bruce Perez MD Work Phone: [facility] 01-21-2025 09:05-0400 Body mass index (BMI) [Ratio] 33.08 kg/m2 Bruce Perez MD Work Phone: [facility] 01-21-2025 09:05-0400 Body weight 97.25 kg Bruce Perez MD Work Phone: [facility] 01-21-2025 09:05-0400 Diastolic blood pressure 74 mm[Hg] Bruce Perez MD Work Phone: [facility] 01-21-2025 09:05-0400 Heart rate 94 /min Bruce Perez MD Work Phone: [facility] 01-21-2025 09:05-0400 Systolic blood pressure 151 mm[Hg] Bruce Perez MD Work Phone: [facility] 12-23-2024 10:42-0500 Body mass index (BMI) [Ratio] 33.17 kg/m2 Lindsey GONZALEZ Work Phone: [facility] 12-23-2024 10:42-0500 Body weight 96.07 kg Lindsey GONZALEZ Work Phone: [facility] 12-23-2024 10:42-0500 Diastolic blood pressure 84 mm[Hg] Lindsey GONZALEZ Work Phone: [facility] 12-23-2024 10:42-0500 Systolic blood pressure 142 mm[Hg] Lindsey GONZALEZ Work Phone: [facility] 11-25-2024 09:59-0500 Body mass index (BMI) [Ratio] 32.28 kg/m2 Mik Elmo DO Work Phone: [facility] 11-25-2024 09:59-0500 Body weight 93.5 kg Mik Elmo DO Work Phone: [facility] 11-25-2024 09:59-0500 Diastolic blood pressure 84 mm[Hg] Mik Elmo DO Work Phone: [facility] 11-25-2024 09:59-0500 Systolic blood pressure 120 mm[Hg] Mik Elmo DO Work Phone: [facility] 10-24-2024 14:22-0500 Body mass index (BMI) [Ratio] 31.64 kg/m2 Nom Nurse [facility] 10-24-2024 14:22-0500 Body weight 91.63 kg [facility] Nurse [facility] 10-24-2024 14:22-0500 Diastolic blood pressure 74 mm[Hg] [facility] Nurse [facility] 10-24-2024 14:22-0500 Systolic blood pressure 120 mm[Hg] Nom Nurse [facility] 09-16-2024 15:18-0500 Body mass index (BMI) [Ratio] 32.08 kg/m2 Mik Elmo DO Work Phone: [facility] 09-16-2024 15:18-0500 Body weight 92.9 kg Mik Elmo DO Work Phone: [facility] 09-16-2024 15:18-0500 Diastolic blood pressure 68 mm[Hg] Mik Elmo DO Work Phone: [facility] 09-16-2024 15:18-0500 Systolic blood pressure 114 mm[Hg] Mik Elmo DO Work Phone: [facility] 05-12-2022 15:32-0400 Blood Pressure Location Kaylinn Dokken [facility] 05-12-2022 15:32-0400 Diastolic blood pressure 70 mm[Hg] Kaylinn Dokken [facility] 05-12-2022 15:32-0400 Heart rate 101 /min Kaylinn Dokken [facility] 05-12-2022 15:32-0400 Mean blood pressure 84 mm[Hg] Kaylinn Dokken [facility] 05-12-2022 15:32-0400 Respiratory rate 24 /min Kaylinn Dokken [facility] 05-12-2022 15:32-0400 SaO2% (BldA) [Mass fraction] 96 % Kaylinn Dokken [facility] 05-12-2022 15:32-0400 Systolic blood pressure 114 mm[Hg] Kaylinn Dokken [facility] 05-12-2022 14:20-0400 Body temperature 98.06 [degF] Kaylinn Dokken [facility] 05-12-2022 14:20-0400 Diastolic blood pressure 69 mm[Hg] Kaylinn Dokken [facility] 05-12-2022 14:20-0400 Heart rate 73 /min Kaylinn Dokken [facility] 05-12-2022 14:20-0400 Respiratory rate 16 /min Kaylinn Dokken [facility] 05-12-2022 14:20-0400 SaO2% (BldA) [Mass fraction] 97 % Kaylinn Dokken [facility] 05-12-2022 14:20-0400 Systolic blood pressure 108 mm[Hg] Kaylinn Dokken [facility] 05-12-2022 13:14-0400 Body temperature 98.24 [degF] Kaylinn Dokken [facility] 05-12-2022 13:14-0400 Diastolic blood pressure 82 mm[Hg] Kaylinn Dokken [facility] 05-12-2022 13:14-0400 Heart rate 87 /min Kaylinn Dokken [facility] 05-12-2022 13:14-0400 Mean blood pressure 98 mm[Hg] Kaylinn Dokken [facility] 05-12-2022 13:14-0400 SaO2% (BldA) [Mass fraction] 95 % Kaylinn Dokken [facility] 05-12-2022 13:14-0400 Systolic blood pressure 129 mm[Hg] Kaylinn Dokken [facility] 05-12-2022 13:05-0400 Body temperature 97.88 [degF] Kaylinn Dokken [facility] 05-12-2022 13:05-0400 Mean blood pressure 96 mm[Hg] Kaylinn Dokken [facility] 05-12-2022 13:05-0400 Respiratory rate 14 /min Kaylinn Dokken [facility] 05-12-2022 13:00-0400 Respiratory rate 13 /min Kaylinn Dokken [facility] 05-12-2022 12:45-0400 Mean blood pressure 95 mm[Hg] Kaylinn Dokken [facility] 05-12-2022 11:56-0400 Body temperature 98.06 [degF] Kaylinn Dokken [facility] 05-12-2022 11:50-0400 Respiratory rate 16 /min Kaylinn Dokken [facility] 05-12-2022 11:45-0400 Respiratory rate 16 /min Kaylinn Dokken [facility] 05-12-2022 09:30-0400 Blood Pressure Location Kaylinn Dokken [facility] 05-12-2022 09:30-0400 Mean blood pressure 93 mm[Hg] Kaylinn Dokken [facility] 05-12-2022 09:28-0400 Blood Pressure Location Kaylinn Dokken [facility] 05-12-2022 09:28-0400 Body temperature 97.7 [degF] Kaylinn Dokken [facility] 05-12-2022 09:00-0400 Hourly Rounding Kaylinn Dokken [facility] 05-12-2022 09:00-0400 Promise to Return William Yoder [facility] 05-12-2022 08:00-0400 Hourly Rounding William Melendezen [facility] 05-12-2022 08:00-0400 Promise to Return William Yoder [facility] 05-11-2022 22:41-0400 Heart rate 112 /min William Melendezen [facility] 03-08-2022 10:17-0400 Blood Pressure Location Helene SPETTEL [facility] 03-08-2022 10:17-0400 Body temperature 99.5 [degF] Helene SPETTEL [facility] 03-08-2022 10:17-0400 Diastolic blood pressure 84 mm[Hg] Helene SPETTEL [facility] 03-08-2022 10:17-0400 Heart rate 84 /min Helene SPETTEL [facility] 03-08-2022 10:17-0400 SaO2% (BldA) [Mass fraction] 97 % Helene SPETTEL [facility] 03-08-2022 10:17-0400 Systolic blood pressure 118 mm[Hg] Helene SPETTEL [facility] Encounters Encounter Date Encounter Type Care Provider Facility Start: 05-16-2025 End: 05-16-2025 Clinisync Result Encounter Mik Elmo DO Work Phone: [facility] Unsolicited Start: 05-16-2025 End: 05-16-2025 Clinisync Result Encounter Mik Elmo DO Work Phone: [facility] Unsolicited Start: 05-13-2025 End: 05-13-2025 Clinisync Result Encounter Mik Elmo DO Work Phone: [facility] Unsolicited Start: 05-13-2025 End: 05-13-2025 Clinisync Result Encounter Mik Elmo DO Work Phone: [facility] Unsolicited Start: 05-12-2025 End: 05-12-2025 Bamboo flowsheet Mik Elmo DO Work Phone: [facility] Start: 05-12-2025 End: 05-12-2025 Bamboo flowsheet Mik Elmo DO Work Phone: [facility] Start: 05-12-2025 End: 05-12-2025 ambulatory MIK ELMO Not Available Start: 05-12-2025 End: 05-12-2025 flow sheet Mik Elmo DO Work Phone: [facility] Comment on above: 35 weeks gestation o f ([facility]); Third trimester ([facility]); High blood pressure affecting in third trimester, antepartum ([facility]); Insulin controlled gestational diabetes mellitus (GDM) in third trimester ([facility] Multigravida of advanced maternal age in third trimester ([facility]); induced hypertension, antepartum ([facility]) Start: 05-07-2025 End: 05-07-2025 Clinisync Result [...] on above: 34 weeks gestation o f ([facility]); Third trimester ([facility]); High blood pressure affecting in third trimester, antepartum ([facility]); induced hypertension, antepartum ([facility]); Insulin controlled gestational diabetes mellitus (GDM) in third trimester ([facility] Multigravida of advanced maternal age in third trimester ([facility]); Gestational diabetes mellitus (GDM), antepartum, gestational diabetes method of control unspecified ([facility]) Start: 04-30-2025 End: 04-30-2025 Clinisync Result Encounter Mik Elmo DO Work Phone: [facility] Unsolicited Start: 04-30-2025 End: 04-30-2025 Clinisync Result Encounter Mik Elmo DO Work Phone: [facility] Unsolicited Start: 04-30-2025 End: 04-30-2025 flow sheet Lindsey GONZALEZ Work Phone: [facility] Comment on above: 33 weeks gestation o f ([facility]); Third trimester ([facility]); High blood pressure affecting in third trimester, antepartum ([facility]); induced hypertension, antepartum ([facility]) Start: 04-30-2025 End: 04-30-2025 ambulatory LINDSEY COBB [...] Comment on above: Third trimester preg lillian ([facility]); 32 weeks gestation of ([facility]); Insulin controlled gestational diabetes mellitus (GDM) in third trimester ([facility]); Multigravida of advanced maternal age in third trimester ([facility]); Hypertension, unspecified type Start: 04-21-2025 End: 04-21-2025 [...] Comment on above: Third trimester preg lillian ([facility]); 31 weeks gestation of ([facility]) Start: 04-14-2025 End: 04-14-2025 ambulatory MIK ELMO Not Available Start: 04-08-2025 End: 04-08-2025 Bamboo flowsheet Mik Elmo DO Work Phone: [facility] Start: 04-08-2025 End: 04-08-2025 Bamboo flowsheet Mik Elmo DO Work Phone: [facility] Start: 04-08-2025 End: 04-08-2025 flow sheet Mik Elmo DO Work Phone: [facility] Comment on above: Third trimester preg lillian ([facility]); 30 weeks gestation of ([facility]); Gestational diabetes mellitus (GDM), antepartum, gestational diabetes method of control unspecified ([facility]) Start: 04-08-2025 End: 04-08-2025 ambulatory MIK ELMO Not Available Start: 04-01-2025 End: 04-01-2025 Orders Only Michelle Ashraf RN [facility] Comment on above: Chronic hypertension affecting (Primary Dx); Gestational diabetes mellitus (GDM), antepartum, gestational diabetes method of control unspecified Start: 03-31-2025 End: 03-31-2025 ambulatory MIK R [facility] Start: 03-24-2025 End: 03-24-2025 Bamboo flowsheet [...] 03-04-2025 End: 03-04-2025 Orders Only Oralia Elliott [employer] [facility] Comment on above: Chronic hypertension affecting (Primary Dx); Advanced maternal age in multigravida, second trimester; Gestational diabetes mellitus (GDM), antepartum, gestational diabetes method of control unspecified Start: 03-03-2025 End: 03-03-2025 ambulatory MIK R ELMO [facility] Start: 02-24-2025 End: 02-24-2025 Bamboo [...] 02-17-2025 End: 02-17-2025 ambulatory Mik R ELMO Facility[place] Start: 02-17-2025 End: 02-17-2025 Patient encounter procedure Mik R ELMO [facility] Start: 02-04-2025 End: 02-04-2025 Telephone encounter Yamila Rayo LPN [facility] Start: 02-04-2025 End: 02-04-2025 ambulatory Mik R ELMO Facility:[facility] Start: 02-04-2025 End: 02-04-2025 Lab Drop off Mik R ELMO [facility] Start: 01-27-2025 End: 01-27-2025 Bamboo flowsheet Mik Elmo DO Work Phone: [facility] Start: 01-27-2025 End: 01-27-2025 Bamboo flowsheet Mik Elmo DO Work Phone: [facility] Start: 01-27-2025 End: 01-27-2025 ambulatory Mik R ELMO Facility:[facility] Start: 01-27-2025 End: 01-27-2025 Patient encounter procedure Mik R ELMO [facility] Start: 01-27-2025 End: 01-27-2025 flow sheet Mik Elmo DO Work Phone: [facility] Comment on above: 20 [...] Telephone encounter Jessy Neil [facility] Comment on above: Chronic hypertension affecting (Primary Dx); Advanced maternal age in multigravida, second trimester; Prediabetes in mother during ; Gestational diabetes mellitus (GDM), antepartum, gestational diabetes method of control unspecified Start: 01-21-2025 End: 01-21-2025 Office consultation new/estab patient 80 min Bruce Perez MD Work Phone: [facility] Comment on above: Advanced maternal ag e in multigravida, second trimester (Primary Dx); Chronic hypertension affecting ; Prediabetes in mother during ; Gestational diabetes mellitus (GDM), antepartum, gestational diabetes method of control unspecified; 19 weeks gestation of Start: 01-21-2025 End: 01-21-2025 ambulatory MIK R ELMO [facility] Start: 01-20-2025 End: 01-20-2025 Clinisync Result Encounter Mik Elmo DO Work Phone: [facility] Unsolicited Start: 01-20-2025 End: 01-20-2025 Clinisync Result Encounter Mik Elmo DO Work Phone: [facility] Unsolicited Start: 01-17-2025 End: 01-17-2025 Chart abstracting Bruce Perez MD Work Phone: [facility] Start: 01-17-2025 End: 01-17-2025 Telephone encounter Lindsey Ramos LPN [facility] Start: 12-30-2024 End: 12-30-2024 ambulatory [...] Perez MD Work Phone: [facility] Start: 11-25-2024 End: 11-25-2024 Bamboo [...] End: 10-03-2022 Patient encounter procedure DONA DELAROSA [facility] Start: 10-03-2022 End: 10-03-2022 Manual pelvic examination DONA DELAROSA [facility] Start: 07-12-2022 End: 07-12-2022 Patient encounter procedure Helene HAMILTON [facility] Start: 06-01-2022 End: 08-30-2022 Patient encounter procedure Helene HAMILTON [facility] Start: 05-11-2022 End: 05-12-2022 Emergency department patient visit William Yoder [facility] Start: 03-08-2022 End: 03-08-2022 Patient encounter procedure Helene HAMILTON [facility] Procedures Date Procedure Procedure Detail Performing Clinician Start: 05-16-2025 Antibody screen Mik F azio DO Work Phone: Start: 05-16-2025 ALL BUN Mik Fazi o DO Work Phone: Start: 05-16-2025 ALL CBC WITH AUTO DIFF Mik Elmo DO Work Phone: Start: 05-16-2025 ALL TYPE AND SCREEN Cor ey Elmo DO Work Phone: Start: 05-16-2025 ALL URIC ACID Mik Pat io DO Work Phone: Start: 05-16-2025 [facility] ALT Mik Fazi o DO Work Phone: Start: 05-16-2025 [facility] AST Mik Fazi o DO Work Phone: Start: 05-16-2025 [facility] CREATININE Mik Fa zio DO Work Phone: Start: 05-13-2025 US OB BPP W NON-STRESS Mik Elmo DO Work Phone: Start: 05-12-2025 Urnls dip stick/tabl et rgnt [...] dip stick/tablet rgnt non-auto w/o micrscp Mik Borrego DO Work Phone: Start: 09-16-2024 IGP,APTIMA HPV,AGE GDLN Mik Borrego DO Work Phone: Start: 09-16-2024 Microscopic observat ion [Identifier] in Cervix by Cyto stain [facility] Nurse Start: 05-12-2022 Laparoscopic appendectomy William Yoder History of appendectomy History of appendectomy( Confirmed ) Helene HAMILTON None (qualifier value) Rachna HAMILTON Plan of Treatment Date Care Activity Detail Author Start: 09-16-2029 Screening for malignant neoplasm of cervix [facility] Start: 09-16-2027 Screening for malignant neoplasm of cervix Pap Smear [employer] Start: 04-01-2026 End: 04-01-2026 US MFM with or without consult US MFM with or without consult Imaging Routine Chronic hypertension affecting Gestational diabetes mellitus (GDM), antepartum, gestational diabetes method of control unspecified Expected: 04/01/2026 (Approximate), Expires: 04/01/2026 [employer] Work Phone: Comment on above: Expected: 04/01/2026 (Approximate), Expi res: 04/01/2026 Start: 03-04-2026 End: 03-04-2026 US MFM with or without consult US MFM with or without consult Imaging Routine Chronic hypertension affecting Advanced maternal age in multigravida, second trimester Gestational diabetes mellitus (GDM), antepartum, gestational diabetes method of control unspecified Expected: 03/04/2026 (Approximate), Expires: 03/04/2026 [employer] Work Phone: Comment on above: Expected: 03/04/2026 (Approximate), Expi res: 03/04/2026 Start: 01-21-2026 Adult BMI Screening Adult BMI Screening [employer] Start: 01-21-2026 Tobacco Screening Tobacco Screening [facility] Start: 08-05-2025 Screening for malignant neoplasm of cervix [facility] Start: 06-23-2025 Influenza vaccination [facility] Start: 05-19-2025 End: 05-19-2025 Patient encounter procedure [facility] Start: 05-12-2025 End: 05-12-2025 Patient encounter procedure 05/12/2025 9:10 AM EDT Routine [facility] [address] [place] [address] Mik Borrego, DO [address] [place] [address] [facility] Start: 05-05-2025 End: 05-05-2025 Patient encounter procedure 05/05/2025 9:10 AM EDT Routine [facility] [address] [place] [phone] Mik Borrego, DO [address] [place] [address] [facility] Start: 04-30-2025 End: 04-30-2026 Alanine aminotransferase [Enzymatic activity/volume] in Serum or Plasma ALT Lab Routine induced hypertension, antepartum ([facility]) Expected: 04/30/2025 (Approximate), Expires: 04/30/2026 [facility] Comment on above: Expected: 04/30/2025 (Approximate), Expi res: 04/30/2026 Start: 04-30-2025 End: 04-30-2026 Aspartate aminotransferase [Enzymatic activity/volume] in Serum or Plasma AST Lab Routine induced hypertension, antepartum ([facility]) Expected: 04/30/2025 (Approximate), Expires: 04/30/2026 [facility] Comment on above: Expected: 04/30/2025 (Approximate), Expi res: 04/30/2026 Start: 04-30-2025 End: 04-30-2026 CBC W Auto Differential panel - Blood CBC and differential Lab Routine induced hypertension, antepartum ([facility]) Expected: 04/30/2025 (Approximate), Expires: 04/30/2026 [facility] Comment on above: Expected: 04/30/2025 (Approximate), Expi res: 04/30/2026 Start: 04-30-2025 End: 04-30-2026 Creatinine [Mass/volume] in Serum or Plasma Creatinine Lab Routine induced hypertension, antepartum ([facility]) Expected: 04/30/2025 (Approximate), Expires: 04/30/2026 [facility] Work Phone: Comment on above: Expected: 04/30/2025 (Approximate), Expi res: 04/30/2026 Start: 04-30-2025 End: 04-30-2026 Lactate dehydrogenase [Enzymatic activity/volume] in Serum or Plasma by Lactate to pyruvate reaction Lactate dehydrogenase Lab Routine induced hypertension, antepartum ([facility]) Expected: 04/30/2025, Expires: 04/30/2026 [facility] Comment on above: Expected: 04/30/2025, Expires: Start: 04-30-2025 End: 04-30-2026 Protein, urine, 24 hour Protein, urine, 24 hour Lab Routine induced hypertension, antepartum ([facility]) Expected: 04/30/2025 (Approximate), Expires: 04/30/2026 [facility] Comment on above: Expected: 04/30/2025 (Approximate), Expi res: 04/30/2026 Start: 04-30-2025 End: 04-30-2026 Pt and ptt Pt and ptt Lab Routine induced hypertension, antepartum ([facility]) Expected: 04/30/2025, Expires: 04/30/2026 [facility] Comment on above: Expected: 04/30/2025, Expires: Start: 04-30-2025 End: 04-30-2026 Urate [Mass/volume] in Serum or Plasma Uric acid Lab Routine induced hypertension, antepartum ([facility]) Expected: 04/30/2025 (Approximate), Expires: 04/30/2026 [facility] Comment on above: Expected: 04/30/2025 (Approximate), Expi res: 04/30/2026 Start: 04-30-2025 End: 04-30-2026 Urea nitrogen [Mass/volume] in Serum or Plasma BUN Lab Routine induced hypertension, antepartum ([facility]) Expected: 04/30/2025, Expires: 04/30/2026 [facility] Comment on above: Expected: 04/30/2025, Expires: Start: 04-29-2025 End: 04-29-2025 Patient encounter procedure 04/29/2025 3:15 PM EDT Appointment [facility] - Ultrasound [address] [place] [address] [facility] Start: 04-28-2025 End: 04-28-2025 Patient encounter procedure 04/28/2025 2:50 PM EDT Routine [facility] [address] [facility] [place] [place] [phone] Mik Borrego, DO [address] [place] [address] [facility] Start: 04-21-2025 End: 04-21-2025 Patient encounter procedure 04/21/2025 3:20 PM EDT Routine [facility] [address] [facility] [place] [phone] Mik Borrego, DO [address] [place] [address] [facility] Start: 04-21-2025 End: 08-21-2025 US for US OB follow up transabdominal approach Imaging Routine Insulin controlled gestational diabetes mellitus (GDM) in third trimester ([facility]) Expected: 04/21/2025, Expires: 08/21/2025 [facility] Work Phone: Comment on above: Expected: 04/21/2025, Expires: Start: 04-14-2025 End: 04-14-2025 Patient encounter procedure [facility] Comment on above: Arrived Start: 04-08-2025 End: 04-08-2025 Patient encounter procedure [facility] Comment on above: Arrived Start: 03-31-2025 End: 03-31-2025 Patient encounter procedure 03/31/2025 11:00 AM EDT Appointment [facility] [address] [place] [phone] [facility] Start: 03-24-2025 End: 09-23-2025 US biophysical profile w non stress test US biophysical profile w non stress test Imaging Routine Gestational diabetes mellitus (GDM), antepartum, gestational diabetes method of control unspecified Multigravida of advanced maternal age in third trimester Expected: 03/24/2025 (Approximate), Expires: 09/23/2025 [facility] Comment on above: Expected: 03/24/2025 (Approximate), Expi res: 09/23/2025 Start: 03-24-2025 End: 07-24-2025 US for US OB follow up transabdominal approach Imaging Routine Gestational diabetes mellitus (GDM), antepartum, gestational diabetes method of control unspecified Multigravida of advanced maternal age in third trimester Expected: 03/24/2025, Expires: 07/24/2025 [facility] Work Phone: Comment on above: Expected: 03/24/2025, Expires: Start: 03-24-2025 End: 03-24-2025 Patient encounter procedure [facility] Comment on above: Arrived Start: 03-03-2025 End: 03-03-2025 Patient encounter procedure 03/03/2025 11:00 AM EDT Appointment [facility] [address] [place] [phone] [facility] Start: 02-24-2025 End: 02-24-2025 Patient encounter procedure [facility] Comment on above: Arrived Start: 02-10-2025 End: 02-10-2025 ambulatory 02/10/2025 1:30 PM EDT Support Visit [facility] [address] [place] [place] [address] Elham Garcia RN [address] [facility], [address] [place] [address], [place] [address] Mansi Boyer, RD [address], [address] [place] [address], [place] [address] [facility] Start: 02-10-2025 End: 02-10-2025 Telemedicine consultation with patient 02/10/2025 10:30 AM EDT Telemedicine [facility] [address] [facility] [place] [phone] Hien Ribera PA-C [address] [facility] [address] [place] [address] [facility] Start: 01-27-2025 End: 01-27-2026 CBC panel - Blood by Automated count CBC Lab Routine Diabetes mellitus screening Expected: 01/27/2025 (Approximate), Expires: 01/27/2026 [facility] Work Phone: Comment on above: Expected: 01/27/2025 (Approximate), Expi res: 01/27/2026 Start: 01-27-2025 End: 01-27-2026 Comprehensive metabolic 2000 panel - Serum or Plasma Comprehensive metabolic panel Lab Routine Second trimester Elevated blood pressure affecting , antepartum induced hypertension, antepartum Antepartum multigravida of advanced maternal age Expected: 01/27/2025 (Approximate), Expires: 01/27/2026 [facility] Comment on above: Expected: 01/27/2025 (Approximate), Expi res: 01/27/2026 Start: 01-27-2025 End: 01-27-2026 ECG 12 lead ECG 12 lead ECG Routine Second trimester Elevated blood pressure affecting , antepartum induced hypertension, antepartum Antepartum multigravida of advanced maternal age Expected: 01/27/2025 (Approximate), Expires: 01/27/2026 [facility] Comment on above: Expected: 01/27/2025 (Approximate), Expi res: 01/27/2026 Start: 01-27-2025 End: 01-27-2027 Echocardiogram 2D complete Echocardiogram 2D complete Echocardiography Routine Second trimester Elevated blood pressure affecting , antepartum induced hypertension, antepartum Antepartum multigravida of advanced maternal age Expected: 01/27/2025 (Approximate), Expires: 01/27/2027 [facility] Comment on above: Expected: 01/27/2025 (Approximate), Expi res: 01/27/2027 Start: 01-27-2025 End: 01-27-2026 Lactate dehydrogenase [Enzymatic activity/volume] in Serum or Plasma by Lactate to pyruvate reaction Lactate dehydrogenase Lab Routine Second trimester Elevated blood pressure affecting , antepartum induced hypertension, antepartum Antepartum multigravida of advanced maternal age Expected: 01/27/2025, Expires: 01/27/2026 [facility] Comment on above: Expected: 01/27/2025, Expires: Start: 01-27-2025 End: 01-27-2026 Measurement of glucose 1 hour after glucose challenge for glucose tolerance test Glucose tolerance, 1 hour Lab Routine Diabetes mellitus screening Expected: 01/27/2025 (Approximate), Expires: 01/27/2026 [facility] Comment on above: Expected: 01/27/2025 (Approximate), Expi res: 01/27/2026 Start: 01-27-2025 End: 01-27-2026 Natriuretic peptide B [Mass/volume] in Blood B-type natriuretic peptide Lab Routine Second trimester Elevated blood pressure affecting , antepartum induced hypertension, antepartum Antepartum multigravida of advanced maternal age Expected: 01/27/2025 (Approximate), Expires: 01/27/2026 [facility] Comment on above: Expected: 01/27/2025 (Approximate), Expi [...] [facility] Work Phone: Comment on above: Expected: 01/21/2025, Expires: Start: 01-21-2025 End: 01-21-2025 Patient encounter procedure 01/21/2025 10:30 AM EDT Office Visit Maternal- Medicine at [facility] [address] [place] [id number] Bruce Perez MD [address] [address] [facility]- Medicine at [facility] Start: 01-21-2025 End: 01-21-2025 Patient encounter procedure 01/21/2025 9:15 AM EDT Appointment [facility] [address] [place] [address] [facility] Start: 01-20-2025 End: 01-20-2025 Patient encounter procedure 01/20/2025 9:20 AM EDT Routine [facility] [address] [place] [phone] Mik oBrrego, [address] [place] [address] [facility] Start: 12-30-2024 End: 12-30-2024 Clinical Support 12/30/2024 9:10 AM EDT Clinical Support [facility] [address] [place] [address] [facility] Start: 12-23-2024 End: 02-22-2025 [...] Start: 10-24-2024 End: 10-24-2025 US Pelvis transvaginal [facility] Work Phone: Comment on above: Expected: 10/24/2024, Expires: Start: 09-16-2024 End: 09-16-2024 Patient encounter procedure 09/16/2024 3:00 PM EST Office Visit [facility] [address] [place] [id number] Mik Borrego, DO [address] [place] [address] Arrived [facility] Comment on above: Arrived Start: 06-23-2024 COVID-19 Vaccine ( season) COVID-19 Vaccine () [facility] Start: 06-23-2024 Influenza vaccination [facility] Start: 06-01-2019 DTaP,Tdap and Td Vaccines (2 - Td or Tdap) DTaP,Tdap and Td Vaccines (2 - Td or Tdap) [facility] Start: 2009 Screening for malignant neoplasm of cervix Pap Smear [facility] Start: 2007 DTaP,Tdap and Td Vaccines (1 - Tdap) DTaP,Tdap and Td Vaccines (1 - Tdap) [facility] Start: 2006 Adult BMI Follow Up Plan Adult BMI Follow Up Plan [facility] Start: 2006 Adult BMI Screening Adult BMI Screening [facility] Start: 2000 Depression Screening Depression Screening [facility] Start: 2000 Tobacco Screening Tobacco Screening [facility] Bacteria identified in Urine by Culture Urine culture Microbiology Routine Missed menses Ordered: 10/24/2024 [facility] Comment on above: Ordered: 10/24/2024 End: 01-21-2026 CBC panel - Blood by Automated count CBC without diff Lab Routine Chronic hypertension affecting 1 Occurrences starting 01/21/2025 until 01/21/2026 [facility] Comment on above: 1 Occurrences starting 01/21/2025 until 01/21/2026 CBC W Auto Different ial panel - Blood CBC and differential Lab Routine Missed menses , unspecified gestational age Ordered: 10/24/2024 [facility] Comment on above: Ordered: 10/24/2024 CBC W Auto Different ial panel - Blood CBC and differential Lab Routine Second trimester Elevated blood pressure affecting , antepartum induced hypertension, antepartum Antepartum multigravida of advanced maternal age Ordered: 01/27/2025 [facility] Comment on above: Ordered: 01/27/2025 CHLAMYDIA TRACHOMATI S (GENITO/STI) CHLAMYDIA TRACHOMATIS (GENITO/STI) Lab Routine STD exposure Vaginal discharge Ordered: 12/23/2024 [facility] Comment on above: Ordered: 12/23/2024 End: 01-21-2026 Comprehensive metabolic 2000 panel - Serum or Plasma Comprehensive metabolic panel Lab Routine Chronic hypertension affecting 1 Occurrences starting 01/21/2025 until 01/21/2026 [facility] Comment on above: 1 Occurrences starting 01/21/2025 until 01/21/2026 Cytology Cervical or vaginal smear or scraping study Pap Smear Pathology and Cytology Routine Well woman exam with routine gynecological exam Ordered: 09/16/2024 [facility] Work Phone: Comment on above: Ordered: 09/16/2024 End: 01-21-2026 ECG 12 lead ECG 12 lead ECG Routine Chronic hypertension affecting 1 Occurrences starting 01/21/2025 until 01/21/2026 [facility] Comment on above: 1 Occurrences starting 01/21/2025 until 01/21/2026 Hemoglobin A1c/Hemoglobin.total in Blood Hemoglobin A1c Lab Routine Missed menses , unspecified gestational age Ordered: 10/24/2024 [facility] Comment on above: Ordered: 10/24/2024 Hepatitis B virus avalos rface Ag [Presence] in Serum or Plasma by Immunoassay Hepatitis B surface antigen Lab Routine Missed menses , unspecified gestational age Ordered: 10/24/2024 [facility] Comment on above: Ordered: 10/24/2024 Hepatitis C virus Ab [Presence] in Serum or Plasma by Immunoassay Hepatitis C antibody Lab Routine Missed menses , unspecified gestational age Ordered: 10/24/2024 [facility] Comment on above: Ordered: 10/24/2024 HIV-1/HIV-2 antigen/antibody combination immunoassay HIV-1 and HIV-2 antibodies Lab Routine Missed menses , unspecified gestational age Ordered: 10/24/2024 [facility] Comment on above: Ordered: 10/24/2024 Human papilloma viru s DNA [Presence] in Unspecified specimen by Probe with amplification HPV DNA probe, amplified Microbiology Routine Well woman exam with routine gynecological exam Ordered: 09/16/2024 [facility] Comment on above: Ordered: 09/16/2024 End: 01-21-2026 Natriuretic peptide B [Mass/volume] in Blood B-type natriuretic peptide Lab Routine Chronic hypertension affecting 1 Occurrences starting 01/21/2025 until 01/21/2026 [employer] Phone: Comment on above: 1 Occurrences starting 01/21/2025 until 01/21/2026 Neisseria gonorrhoea e DNA [Presence] in Unspecified specimen by DANA with probe detection Neisseria gonorrhea DNA probe, direct Lab Routine STD exposure Vaginal discharge Ordered: 12/23/2024 [facility] Comment on above: Ordered: 12/23/2024 End: 01-21-2026 Protein creat ratio Protein creat ratio Lab Routine Chronic hypertension affecting 1 Occurrences starting 01/21/2025 until 01/21/2026 [employer] Comment on above: 1 Occurrences starting 01/21/2025 until 01/21/2026 Protein, urine, 24 hour Protein, urine, 24 hour Lab Routine Second trimester Elevated blood pressure affecting , antepartum induced hypertension, antepartum Antepartum multigravida of advanced maternal age Ordered: 01/27/2025 [facility] Comment on above: Ordered: 01/27/2025 Reagin Ab [Presence] in Serum by RPR RPR Lab Routine Missed menses , unspecified gestational age Ordered: 10/24/2024 [facility] Comment on above: Ordered: 10/24/2024 Rubella antibody, IgG Rubella an tibody, IgG Lab Routine Missed menses , unspecified gestational age Ordered: 10/24/2024 [facility] Comment on above: Ordered: 10/24/2024 SURESWAB(R) ADVANCED VAGINITIS PLUS, TMA SURESWAB(R) ADVANCED VAGINITIS PLUS, TMA Pathology and Cytology Routine STD exposure Vaginal discharge Ordered: 12/23/2024 [facility] Work Phone: Comment on above: Ordered: 12/23/2024 Immunizations Immunization Date Immunization Notes Care Provider Radha neves 08-05-2021 COVID-19, mRNA, LNP- S, PF, 30 mcg/0.3 mL dose Helene SPETTEL [facility] 06-25-2021 COVID-19, mRNA, LNP- S, PF, 30 mcg/0.3 mL dose Helene SPETTEL [facility] 02-08-2019 meningococcal ACWY vaccine, unspecified formulation Helene SPETTEL [facility] 12-14-2009 hepatitis B vaccine, adult dosage Helene SPETTEL [facility] 07-03-2009 hepatitis B vaccine, adult dosage Helene SPETTEL [facility] 06-01-2009 hepatitis B vaccine, adult dosage Helene SPETTEL [facility] 06-01-2009 tetanus toxoid, redu [place]ol[place] diphtheria toxoid, and acellular pertussis vaccine, adsorbed Helene SPETTEL [facility] 05-16-2001 measles, mumps and rubella virus vaccine Helene SPETTEL [facility] NEGATED: Highlighted row has not occurred!03-08-2022 influenza virus vaccine, unspecified formulation Helene SPETTEL [facility] NEGATED: Highlighted row has not occurred!03-16-2021 SARS-CoV-2 (COVID-19) mRNA-1273 vaccine Helene HAMILTON [facility] NEGATED: Highlighted row has not occurred!10-20-2020 influenza virus vaccine, unspecified formulation Helene HAMILTON [facility] Payers Date Payer Category Payer Unknown [id number] 2022 [facility] [id number] 2022 [facility] Managed Care - PPO ANTHEM [id number] 2022 Unknown [id number] 1988 Unknown [id number] 2.16.840.1.422715.3.579. 2.727 1988 Unknown [id number] 2.16.840.1.354041.3.579. 2.727 1988 Unknown [id number] 2.16.840.1.099225.3.579. 2.727 1988 Unknown [id number] 2.16.840.1.736769.3.579. 2.1286 1988 Unknown [id number] 2.16.840.1.638977.3.579. 2.1286 1988 Unknown [id number] 2.16.840.1.401471.3.579. 2.1286 1988 Unknown [id number] 2.16.840.1.856123.3.579. 2.1286 1988 Unknown [id number] 2.16.840.1.761378.3.579. 2.1259 1988 Unknown [id number] 2.16.840.1.167862.3.579. 2.9 1988 Unknown [id number] 2.16.840.1.816260.3.579. 2.1259 1988 Unknown [id number] 2.16.840.1.794597.3.579. 2.1259 1988 Unknown [id number] 2.16.840.1.500274.3.579. 2.1259 1988 Unknown [id number] 2.16.840.1.086449.3.579. 2.1259 1988 Unknown [id number] 2.16.840.1.029724.3.579. 2.1259 1988 Unknown [id number] 2.16.840.1.617501.3.579. 2.9 1988 Unknown [id number] 2.16.840.1.065541.3.579. 2.9 1988 Unknown [id number] 2.16.840.1.759726.3.579. 2.9 1988 Unknown [id number] 2.16.840.1.969056.3.579. 2.9 1988 Unknown [id number] 2.16.840.1.136990.3.579. 2.9 1988 Unknown [id number] 2.16.840.1.479649.3.579. 2.9 1988 Unknown [id number] 2.16.840.1.639727.3.579. 2.9 1988 Unknown [id number] 2.16.840.1.537304.3.579. 2.1259 Social History Date Type Detail Facility Start: 03-08-2022 End: 02-16-2025 Tobacco smoking status Never smoked tobacco (finding) [facility] Start: 01-21-2025 Sex Assigned At Female F [facility] Start: 12-06-2024 Tobacco smoking stat [facility] Tobacco smoking consumption unknown [facility] Start: 1990 Sex assigned at Not on file [facility] Start: 09-19-2024 [facility] Start: 01-10-2019 End: 12-05-2024 Sex Female (finding) [facility] Start: 01-21-2025 Tobacco smoking stat [facility] Ex-smoker [facility] History of tobacco use Current smoker [facility] History of tobacco use Cigarette Smoker P [facility] Start: 01-21-2025 Tobacco use and exposure Smokeless tobacco non-user [facility] Start: 01-21-2025 Alcoholic beverage intake Ex-drinker (finding) [facility] Start: 01-21-2025 History of Social function [facility] Within the past 12 months we worried whether our food would run out before we got money to buy more. Never True [facility] Sexual Orientation [facility] Medical Equipment Procedure Code Equipment Code Equipment Origin al Text Equipment Identifier Dates 1 strip by other route in the morning and 1 strip at noon and 1 strip in the evening and 1 strip before bedtime. [id number] Start: 01-21-2025 Fasting and 1hr postprandial [id number] Start: 01-21-2025 1 strip by In Vi tro route Daily Use in the morning prior to breakfast, 1 hour after each meal for a total of 4times daily. [id number] Start: 01-27-2025 End: 02-26-2025 1 each by In Vit ro route Daily Use to check FSBS four times daily [id number] Start: 01-27-2025 End: 02-26-2025 Use four times d aily to check FSBS as directed. [id number] Start: 01-29-2025 End: 01-29-2026 1 each by In Vit ro route Daily Use to check FSBS four times daily [id number] Start: 01-29-2025 End: 02-28-2025 Use as instructed [id number] Start: 04-08-2025 Functional Status Date Assessment Result Facility 05-11-2022 Functional Status N/A [facility] Clinical Notes 03-08-2022 to 05-12-2025 Pricilla Cortes NP - 05/12/2025 9:10 AM Levi Buckner LPN - 05/05/2025 9:10 AM LISA Kirby - 04/30/2025 2:00 PM Kobe Chowdary MA - 04/21/2025 3:20 PM EDT [...] to check FSBS. Blood Glucose Monitoring Suppl ([employer] Glucometer) w/Device kit 1 kit, Does not [...] Diagnosis Date Noted Vaginal bleeding affecting early ([facility]) 11/06/2024 headache, antepartum ([facility]) 12/25/2024 Elevated blood pressure affecting , antepartum ([facility]) 01/16/2025 Insulin controlled gestational diabetes mellitus (GDM) in third trimester ([facility]) 04/21/2025 Multigravida of advanced maternal age in third trimester ([facility]) 04/21/2025 Hypertension 04/21/2025 Third trimester ([facility]) 04/21/2025 Resolved Ambulatory Problems Diagnosis Date Noted No Resolved Ambulatory Problems Past Medical History: Diagnosis Date ADHD (attention deficit hyperactivity disorder) Anxiety Gestational diabetes ([facility]) Insulin resistance PCOS (polycystic ovarian syndrome) HISTORY PAST MEDICAL HISTORY SOCIAL HISTORY Past Medical History: Diagnosis Date ADHD (attention deficit hyperactivity disorder) Anxiety Gestational diabetes ([facility]) Hypertension Insulin resistance PCOS (polycystic ovarian syndrome) [...] nursing note reviewed. Exam conducted with a clinical services consultant present. Vitals: Estimated body mass index is 34.52 kg/m as calculated from the following: Height as of 05/06/24: 5' 7 . Weight as of this encounter: 220 lb 6.4 oz. BP: 138/80 Patient's last menstrual period was 08/23/2024. ASSESSMENT & PLAN ICD-10-CM 1. 35 weeks gestation of ([facility]) Z3A.35 POCT urinalysis dipstick manually resulted 2. Third trimester ([facility]) Z34.93 POCT urinalysis dipstick manually resulted 3. High blood pressure affecting in third trimester, antepartum ([facility]) O16.3 4. Insulin controlled gestational diabetes mellitus (GDM) in third trimester ([facility]) O24.414 5. Multigravida of advanced maternal age in third trimester ([facility]) O09.523 6. induced hypertension, antepartum ([facility]) O13.9 Return OB: Patient presents today [...] Pricilla Cortes NP documented in this encounter [facility] 05-05-2025 History of Presen t illness Narrative [...] of 4times daily. Blood Glucose Monitoring Suppl ([employer] Gluc Meter) w/Device kit [...] Diagnosis Date Noted Vaginal bleeding affecting early ([facility]) 11/06/2024 headache, antepartum ([facility]) 12/25/2024 Elevated blood pressure affecting , antepartum ([facility]) 01/16/2025 Insulin controlled gestational diabetes mellitus (GDM) in third trimester ([facility]) 04/21/2025 Multigravida of advanced maternal age in third trimester ([facility]) 04/21/2025 Hypertension 04/21/2025 Third trimester ([facility]) 04/21/2025 Resolved Ambulatory Problems Diagnosis Date Noted No Resolved Ambulatory Problems Past Medical History: Diagnosis Date ADHD (attention deficit hyperactivity disorder) Anxiety Gestational diabetes ([facility]) Insulin resistance PCOS (polycystic ovarian syndrome) HISTORY PAST MEDICAL HISTORY SOCIAL HISTORY Past Medical History: Diagnosis Date ADHD (attention deficit hyperactivity disorder) Anxiety Gestational diabetes ([facility]) Hypertension Insulin resistance PCOS (polycystic ovarian [...] nursing note reviewed. Exam conducted with a clinical services consultant present. Vitals: Estimated body mass index is 33.85 kg/m as calculated from the following: Height as of 05/06/24: 5' 7 . Weight as of this encounter: 216 lb 1.9 oz. BP: 140/86 Patient's last menstrual period was 08/23/2024. ASSESSMENT & PLAN ICD-10-CM 1. 34 weeks gestation of ([facility]) Z3A.34 POCT urinalysis dipstick manually resulted 2. Third trimester ([facility]) Z34.93 POCT urinalysis dipstick manually resulted 3. High blood pressure affecting in third trimester, antepartum ([facility]) O16.3 4. induced hypertension, antepartum ([facility]) O13.9 5. Insulin controlled gestational diabetes mellitus (GDM) in third trimester ([facility]) O24.414 6. Multigravida of advanced maternal age in third trimester ([facility]) O09.523 7. Gestational diabetes mellitus (GDM), antepartum, gestational diabetes method of control unspecified ([facility]) O24.419 Patient presents today for a [...] Mik Borrego DO documented in this encounter [facility] 04-30-2025 History of Presen t illness Narrative [...] Diagnosis Date Noted Vaginal bleeding affecting early ([facility]) 11/06/2024 headache, antepartum ([facility]) 12/25/2024 Elevated blood pressure affecting , antepartum ([facility]) 01/16/2025 Insulin controlled gestational diabetes mellitus (GDM) in third trimester ([facility]) 04/21/2025 Multigravida of advanced maternal age in third trimester ([facility]) 04/21/2025 Hypertension 04/21/2025 Third trimester ([facility]) 04/21/2025 Resolved Ambulatory Problems Diagnosis Date Noted No Resolved Ambulatory Problems Past Medical History: Diagnosis Date ADHD (attention deficit hyperactivity disorder) Anxiety Gestational diabetes ([facility]) Insulin resistance PCOS (polycystic ovarian syndrome) HISTORY PAST MEDICAL HISTORY SOCIAL HISTORY Past Medical History: Diagnosis Date ADHD (attention deficit hyperactivity disorder) Anxiety Gestational diabetes ([facility]) Hypertension Insulin resistance PCOS (polycystic ovarian [...] PLAN ICD-10-CM 1. 33 weeks gestation of ([facility]) Z3A.33 POCT urinalysis dipstick manually resulted 2. Third trimester ([facility]) Z34.93 POCT urinalysis dipstick manually resulted 3. High blood pressure affecting in third trimester, antepartum ([facility]) O16.3 Patient presents today for headaches, elevated BP and increased urinary symptoms with decreased output. Patient taking procardia XL at 60mg. Took BP at work today 160/90 with headaches and floaters, called office and came in. BP 146/90. Patient will be sent to OB unit and evaluated for preeclampsia and possible transfer. Patient and agree with plan of care Documented by LISA Lomeil on behalf of: LISA Lomeli documented in this encounter [facility] 04-21-2025 History of Presen t illness Narrative [...] Diagnosis Date Noted Vaginal bleeding affecting early ([facility]) 11/06/2024 headache, antepartum ([facility]) 12/25/2024 Elevated blood pressure affecting , antepartum ([facility]) 01/16/2025 Resolved Ambulatory Problems Diagnosis Date Noted No Resolved Ambulatory Problems Past Medical History: Diagnosis Date ADHD (attention deficit hyperactivity disorder) Anxiety Gestational diabetes ([facility]) Hypertension Insulin resistance PCOS (polycystic ovarian syndrome) HISTORY PAST MEDICAL HISTORY SOCIAL HISTORY Past Medical History: Diagnosis Date ADHD (attention deficit hyperactivity disorder) Anxiety Gestational diabetes ([facility]) Hypertension Insulin resistance PCOS (polycystic ovarian [...] ASSESSMENT & PLAN ICD-10-CM 1. Third trimester ([facility]) Z34.93 2. 32 weeks gestation of ([facility]) Z3A.32 Return OB: Patient presents today [...] Mik Borrego DO documented in this encounter [facility] 04-14-2025 History of Presen t illness [...] Diagnosis Date Noted Vaginal bleeding affecting early ([facility]) 11/06/2024 headache, antepartum ([facility]) 12/25/2024 Elevated blood pressure affecting , antepartum ([facility]) 01/16/2025 Resolved Ambulatory Problems Diagnosis Date Noted No Resolved Ambulatory Problems Past Medical History: Diagnosis Date ADHD (attention deficit hyperactivity disorder) Anxiety Gestational diabetes ([facility]) Hypertension Insulin resistance PCOS (polycystic ovarian syndrome) HISTORY PAST MEDICAL HISTORY SOCIAL HISTORY Past Medical History: Diagnosis Date ADHD (attention deficit hyperactivity disorder) Anxiety Gestational diabetes ([facility]) Hypertension Insulin resistance PCOS (polycystic ovarian [...] nursing note reviewed. Exam conducted with a clinical services consultant present. Vitals: Estimated body mass index is 33.8 kg/m as calculated from the following: Height as of 05/06/24: 5' 7 . Weight as of this encounter: 215 lb 12.8 oz. BP: 126/82 Patient's last menstrual period was 08/23/2024. ASSESSMENT & PLAN ICD-10-CM 1. Third trimester ([facility]) Z34.93 POCT urinalysis dipstick manually resulted 2. 31 weeks gestation of ([facility]) Z3A.31 POCT urinalysis dipstick manually resulted [...] Mik Borrego DO documented in this encounter [facility] 04-08-2025 History of Presen t illness [...] Diagnosis Date Noted Vaginal bleeding affecting early ([facility]) 11/06/2024 headache, antepartum ([facility]) 12/25/2024 Elevated blood pressure affecting , antepartum ([facility]) 01/16/2025 Resolved Ambulatory Problems Diagnosis Date Noted No Resolved Ambulatory Problems Past Medical History: Diagnosis Date ADHD (attention deficit hyperactivity disorder) Anxiety Gestational diabetes ([facility]) Hypertension Insulin resistance PCOS (polycystic ovarian syndrome) HISTORY PAST MEDICAL HISTORY SOCIAL HISTORY Past Medical History: Diagnosis Date ADHD (attention deficit hyperactivity disorder) Anxiety Gestational diabetes ([facility]) Hypertension Insulin resistance PCOS (polycystic ovarian [...] nursing note reviewed. Exam conducted with a clinical services consultant present. Vitals: Estimated body mass index is 33.36 kg/m as calculated from the following: Height as of 05/06/24: 5' 7 . Weight as of this encounter: 213 lb. BP: 122/78 Patient's last menstrual period was 08/23/2024. ASSESSMENT & PLAN ICD-10-CM 1. Third trimester ([facility]) Z34.93 POCT urinalysis dipstick manually resulted 2. 30 weeks gestation of ([facility]) Z3A.30 3. Gestational diabetes mellitus (GDM), antepartum, gestational diabetes method of control unspecified ([facility]) O24.419 insulin NPH, Isophane, (HumuLIN N,NovoLIN [...] Pt voiced understanding- pt to email raphael Bolden weekly. Orders Placed This Encounter Procedures POCT urinalysis dipstick manually resulted Follow Up: Patient is to return to office in 1 week for routine OB appointment. Documented by Mariam Arizmendi LPN on behalf of: Mik Borrego DO documented in this encounter [facility] 03-24-2025 History of Presen t illness [...] Mik Borrego DO documented in this encounter [facility] 02-24-2025 History of Presen t illness [...] by LISA Lomeli documented in this encounter [facility] 02-17-2025 Note Echocardiology Procedure Exam Date/Time Accession # Ordering Echo Transthoracic 02/17/2025 13:32 EDT [id number] Mik BORREGO DO Complete CPT code 03002 11762 Reason for Exam (Echo Transthoracic Complete) Z34.92, O16.9, O13.9, O09.529 Report [facility] [address] [place] [address] Adult Echocardiogram Report Name: JULISSA WEEMS Study Date: 02/17/2025 12:56 PM BP: 131/88 mmHg Patient Location: [facility] Ambulatory(s) [facility] [place] HR: 84 : 1990 Gender: Female Height: 67 in Age: 34 yrs Ethnicity: [facility] Weight: 211 lb Reason For Study: [...] Transcribed by: MEGAN Technologist: [facility] 02-04-2025 Miscellaneous Notes Spoke with patient to reschedule DBE, she took @ [facility] so we will not follow her blood sugars. documented in this encounter [facility] 02-04-2025 Telephone encounter Note Spoke with patient to reschedule DBE, she took @ [facility] so we will not follow [facility] blood sugars[facility] History of Presen t illness [...] to check FSBS. Blood Glucose Monitoring Suppl ([employer]Vault[employer]in Glucometer) w/Device kit 1 kit, Does not [...] Past Surgical History: Procedure Laterality Date APPENDECTOMY 2023 REVIEW OF SYSTEMS Review of Systems: Review [...] nursing note reviewed. Exam conducted with a clinical services consultant present. Vitals: Estimated body mass index is [...] week with increase from 30 mg per [facility]. She reports elevation in B/P at home and feeling of tachycardia. B/P here today 136/80. She will continue to monitor B/P at home and send to us. She reports not measuring her glucose at home and a glucose monitor and test strips are sent in to the pharmacy today. No lower extremity edema today and no protien in urine today. [facility] recommend baseline EKG and BNP, CBC, CMP, uric acid and lactate. 24 hour urine protein and cardiac echo orders will be given today. 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 I have reviewed the pertinent available patient [...] previously recommended threshold of 160/110. Reference: PMID: [id number], 2021. Blood pressures do increase as progresses [...] preeclampsia prevention as is recommended by the [place] [employer] Gyne[employer] Committee Opinion No. 743. [...] times daily, fasting and 1 [facility] recommend obtaining [...] echocardiogram, attempt completion in 4-6 weeks through [facility] serial growth ultrasounds every 4 weeks following completion of level 2 anatomy US, through [facility] Recommend twice weekly testing starting at [...] developing diabetes later on. Follow up in [facility] in 2 weeks DISPOSITION: At this point the patient is in complete care of her manager target. Patient does have ultrasound and office visit [...] procedures Referring and communicating with other health weekend caregiver (not separately reported) Documenting clinical information in the electronic or other health record Independently interpreting results (not separately reported) and communicating results to the patient/family/caregiver Bruce Perez MD Maternal- Medicine [facility] [address] [place] [id number] [facility], the CDC, and other organizations representing maternal and public health professionals recommend that , , and lactating people and those considering receive the COVID-19 vaccination. Vaccination is the best method to reduce maternal and complications of SARS-CoV-2 infection. This document was created with [employer] technology. Though I make every effort to review the dictation as it is transcribed, on occasion the spoken word can be misinterpreted by the technology leading to inappropriate words, phrases, or sentences. This note is addressed to the requesting provider as a consultation for clinical guidance. Specific medical abbreviations are occasionally used and those are generally approved by the [place]?Board of?Obstetrics and?Gynecology?as well as?[place] s abbreviations. The above plan of care was based solely on the diagnoses for which a consultation was requested. ?More frequent testing may be indicated based on her other medical/obstetrical conditions. The management of other or medical conditions is beyond the scope of requested consultation and will continue to be followed by the primary manager target or primary care provider. Note to patient: [...] No Have you been seen here at [facility] in a previous ? No Recent ER visits or hospitalizations? No Bring blood sugar log or meter with you today? (Please bring them with you for every visit at [facility]) N/A Flu vaccine (Aug-December)? Any concerns that you would like me to mention to the provider today? No documented in this encounter [facility] 01-17-2025 Miscellaneous Notes Voicemail left on nurse line requesting labs and any genetic testing results be faxed to our office. documented in this encounter [facility] 01-17-2025 Telephone encounter Note Voicemail left on nurse line requesting labs and any genetic testing results be faxed to our office. [facility] 12-23-2024 History of Presen t illness [...] of: LISA Lomeli documented in this encounter [facility] 11-25-2024 History of Presen t illness [...] or undercooked meat, and stay away from [facility]. Patient has been consulted regarding any further do's and don'ts of . Patient voiced understanding and all questions and concerns were answered. Patient will be sent to [facility] for advanced maternal age and has decided to have US with mfm rather than unity testing No orders of the defined types were placed in this encounter. Follow Up: Patient is to return in 4 weeks for routine OB appointment. Documented by Juanis Esparza MA on behalf of: Mik Borrego DO documented in this encounter [facility] 10-24-2024 History of Presen t illness [...] or undercooked meat, and stay away from [facility]. Patient has also been advised to not [...] Larisa Chowdary MA documented in this encounter [facility] 09-16-2024 History of Presen t illness [...] nursing note reviewed. Exam conducted with a clinical services consultant present. Vitals: Estimated body mass index is [...] Mik Borrego DO documented in this encounter [facility] 10-03-2022 Hospital Discharg e instructions Patient [...] water added (diluted fruit juice). Eat bland, xqoq-tr-mhkolk foods in small amounts as you are able. These foods include bananas, applesauce, rice, lean meats, toast, and crackers. Avoid fluids that contain a lot of sugar or caffeine, such as energy drinks, sports drinks, and soda. Avoid alcohol. Avoid spicy or fatty foods. General instructions Take mobd-las-fqenris and prescription medicines only as told by your health care provider. Drink enough fluid to keep your urine pale yellow. Wash your hands often using soap and water. If soap and water are not available, use hand sand sifter. Make sure that all people in your [...] eating and drinking to prevent dehydration. Take mulk-cpa-ahobyjz and prescription medicines only as told by [...] 10/09/2006 Document Revised: 01/31/2020 Document Reviewed: 03/19/2019 [employer] Patient Education 2020 [employer]. 10/03/2022 13:10:32 Acute Pain, Adult Acute Pain, [...] Follow these instructions at home: Medicines Take grpb-ihd-ddohtjk and prescription medicines only as told by [...] pain is severe. ?Do not take other orbs-buy-xsvkieh pain medicines in addition to prescription pain [...] grains, and fresh fruits and vegetables. ?Take ztzu-liw-mpfhnkg or prescription medicines. ?Limit foods that are [...] or you are no longer ill. Take ywhq-ngf-zbuhcgj and prescription medicines only as told by [...] 10/23/2016 Document Revised: 02/24/2020 Document Reviewed: 02/24/2020 [employer] Patient Education 2020 [employer]. 10/03/2022 13:10:29 Dysmenorrhea Dysmenorrhea Dysmenorrhea refers to [...] to help relieve pain. General instructions Take jchy-jjc-xvfstdk and prescription medicines only as told by [...] 10/09/2006 Document Revised: 09/21/2018 Document Reviewed: 11/11/2017 [employer] Patient Education 2020 [employer]. 10/03/2022 13:10:26 Polycystic Ovarian Syndrome Polycystic Ovarian [...] produces. Follow these instructions at home: Take hzap-ian-eokigst and prescription medicines only as told by [...] 02/02/2006 Document Revised: 09/21/2018 Document Reviewed: 03/26/2017 [employer] Patient Education 2020 [employer]. 10/03/2022 13:10:25 Ovarian Cyst Ovarian Cyst An [...] cyst. Follow these instructions at home: Take qgcu-ghc-otzsfui and prescription medicines only as told by [...] 10/09/2006 Document Revised: 01/07/2019 Document Reviewed: 03/12/2017 [employer] Patient Education 2020 [employer]. Follow Up Care 10/03/2022 08:07:39 With:DONA DELAROSA CNP Address: [facility] [address] [place] [address] When: Unknown [facility] [place] 05-12-2022 Hospital Discharg e instructions Patient Education [...] Follow these instructions at home: Medicines Take ionj-etu-smtyhqq and prescription medicines only as told by [...] to keep your urine pale yellow. ?Take djpv-tut-ivaosqu or prescription medicines. ?Eat foods that are [...] and water are not available, use hand sand sifter. ?Change your dressing as told by your [...] 10/09/2006 Document Revised: 04/11/2019 Document Reviewed: 04/11/2019 [employer] Patient Education 2020 [employer]. 05/12/2022 14:04:00 Laparoscopic Appendectomy, Adult Laparoscopic Appendectomy, [...] including vitamins, herbs, eye drops, creams, and vymx-mou-idsnoqo medicines. Use of steroids (by mouth or [...] provider tells you to take them. Taking agvw-byn-gulyaor medicines, vitamins, herbs, and supplements. General instructions [...] 05/23/2005 Document Revised: 04/11/2019 Document Reviewed: 04/11/2019 [employer] Patient Education 2020 [employer] 05/12/2022 14:03:59 Appendicitis, Adult Appendicitis, Adult Appendicitis [...] to care for your incision. Medicines Take qouf-dxb-xxxrvhc and prescription medicines only as told by [...] to keep your urine pale yellow. ?Take brkj-kak-nnlziay or prescription medicines. ?Eat foods that are [...] 10/09/2006 Document Revised: 03/27/2019 Document Reviewed: 03/27/2019 [employer] Patient Education 2020 [employer]. Follow Up Care 05/11/2022 22:41:15 With:Raman Russell DO Address: [address] [place] [id number] [phone] When: Unknown Comments:Call for followup appointment [facility] 05-12-2022 Evaluation + Plan note Extrac [...] Adult Author:Wiliam Diaz Jr., DO Date:05/12/22 Plan [place] [employer] Anesthesiologists (ASA) physical status classification: [...] Date:06/14/2022 10:40:00 AM Scheduled Provider:Helene HAMILTON CNP Location:[facility] Appointment Type:FM Open Diagnostic Tests Pending * Basic Metabolic Panel 05/13/22 * CBC w/ Auto Diff 05/13/22 * PT & PTT 05/13/22 [facility]05-17-2022 Hospital Discharge instructions Patient Education 03/08/2022 [...] height. This can be done either in [place] ([place] or metric measurements. Note that charts are available to help you find your BMI quickly and easily without having to do these calculations yourself. To calculate your BMI in [place] measurements, your health care provider will: [...] medical problems. BMI can be measured using [place]ian measurements or metric measurements. To interpret your [...] 06/20/2005 Document Revised: 09/21/2018 Document Reviewed: 08/22/2018 [employer] Patient Education 2020 [employer]. 03/08/2022 12:46:57 Health Maintenance, Female Health Maintenance, [...] 04/23/2012 Document Revised: 10/02/2019 Document Reviewed: 10/02/2019 [employer] Patient Education 2020 [employer] Follow Up Care 02/21/2022 15:20:41 With:Helene HAMILTON CNP Address: [address] [phone]- When:Within 1 Month(s) [facility] Primary Care Evaluation + Plan note Future Appointments Appointment Date:04/05/2022 11:20:00 AM Scheduled Provider:Helene HAMILTON CNP Location:[facility] Appointment Type:FM Open [facility] Primary Care Evaluation + Plan note Future Appointments Appointment Date:02/17/2025 01:00:00 PM Scheduled Provider: [facility] Type:CV Echo (FT) Future Scheduled Tests Radiology* Echo Transthoracic Complete 02/17/25 [facility] Evaluation note* Diagnosis Well woman exam with routine gynecological exam Routine gynecological examination documented [facility] Diagnosis Missed menses 7 weeks gestation of , unspecified gestational age Encounter for supervision of normal first in first trimester documented in this encounter [facility]* Diagnosis First trimester state, incidental 11 weeks gestation of documented in this encounter [facility]* Diagnosis Screening, , for anatomic survey Encounter for anatomic survey Second trimester state, incidental 15 weeks gestation of STD exposure Vaginal discharge Leukorrhea, not specified as infective documented in this encounter [facility] HealthcareEvaluation note* Diagnosis Advanced maternal age in [...] advanced maternal age documented in this encounter [facility] HealthcareEvaluation note* Diagnosis Second trimester state, incidental 24 weeks gestation of documented in this encounter [facility] HealthcareEvaluation note* Diagnosis Chronic hypertension affecting - [...] weeks gestation of documented in this encounter [facility] HealthcareEvaluation note* Diagnosis Chronic hypertension affecting - [...] of , antepartum documented in this encounter [facility] HealthcareHospital course Narrative No data available for this section [facility] Primary Care Hospital Discharge instructions No data available for this section [facility] Primary Care InstructionsNot on filedocumented in this encounter [facility] filedocumented in this encounter [facility] on filedocumented in this encounter [facility] filedocumented in this encounter [facility] on filedocumented in this encounter [facility] on filedocumented in this encounter [facility] No data available for this section [facility] Summary Purpose Family History No Family [...] section and content) DATE CREATED AUTHOR 05/26/2020 [facility] DATE CREATED AUTHOR AUTHOR'S ORGANIZ ATION 01/28/2025 [facility] DATE CREATED AUTHOR AUTHOR'S ORGANIZ ATION 02/06/2025 [facility] DATE CREATED AUTHOR AUTHOR'S ORGANIZ ATION 02/26/2025 [facility] DATE CREATED AUTHOR AUTHOR'S ORGANIZ ATION 04/01/2025 [facility] DATE CREATED AUTHOR AUTHOR'S ORGANIZ ATION 05/13/2025 [facility] EPIC Care Team (unrecognized sect ion and content) Personnel Name: Helene HAMILTON CNP Address: [address] [facility] [address] Personnel Name: Helene HAMILTON CNP Address: [address] [facility] [address] Personnel Name: Helene HAMILTON CNP Address: Address: Formerly named [facility] [address]ie Orta [address] Personnel Name: Helene HAMILTON CNP Address: Address: [address] Personnel Name: Helene HAMILTON CNP Address: Address: Formerly named [facility] Audie Orta [address] Personnel Name: NONE, XXXX Address: [facility] Personnel Name: NONE, XXXX Address: [facility] Personnel Name: NONE, XXXX Address: [facility] Reason for Visit (unrecogniz ed section and [...] BE BASED ON THE PRIMARY CLINICAL RECORDS. [facility] [employer] provides no warranty or guarantee of the accuracy or completeness of information in this document.
--- NOTE | 2025-05-16 19:30 | PC.NURSE ---
1900- Pt getting ready to eat dinner at this time. Pt glucose level obtained at this time. Pt self-adm insulin per provider order.
[2025-05-16] MEDS: 0.9 % SODIUM CHLORIDE 1,000 ML 125 ML IV ×2 (20:26→23:30)
[2025-05-16] MEDS: OXYTOCIN/0.9 % SODIUM CHLORIDE 10 UNITS/500 ML PLAST..BAG 6 UNIT IV (20:27)
[2025-05-16] MEDS: AMPICILLIN SODIUM 2,000 MG in 0.9 % SODIUM CHLORIDE 100 ML 200 MG IV (20:30)
[2025-05-16] MEDS: ROPIVACAINE HCL/PF 400 MG/200 ML PREMIX 6 MG EPIDURAL (23:31)
[2025-05-17] VITALS (67 sets, daily range): BP systolic 92–176; BP diastolic 50–105; PULSE 82–139; TEMP 36.4–37.3
[2025-05-17] MEDS: AMPICILLIN SODIUM 1,000 MG in 0.9 % SODIUM CHLORIDE 50 ML 100 MG IV ×2 (00:27→04:09)
[2025-05-17] MEDS: LIDOCAINE HCL 1% 200 MG/20 ML MDV INJ (05:26)
[2025-05-17] MEDS: OXYTOCIN/0.9 % SODIUM CHLORIDE 20 UNITS/1,000 ML PLAST..BAG 125 UNIT IV (05:35)
--- NOTE | 2025-05-17 05:46 | PM.OBPRCVD ---
Procedure Intrapartal events: Severe Preeclampsia Induction method: per pitocin protocol Delivery augmentation: rupture of membranes and pitocin Delivery monitor: external FHT and external uterine Route of delivery: Episiotomy Description: midline L&D Laceration Description: perineal - 2nd degree Delivery repair: Vicryl Estimated blood loss (mL): 300 Anesthesia type: Epidural Disposition: floor Delivery date: 05/17/25 Gender: male presentation: vertex Placental delivery description: Spontaneous cord description: 3 Vessels and Nuchal Cord
[2025-05-17] MEDS: 0.9 % SODIUM CHLORIDE 1,000 ML 25 ML IV (07:52)
[2025-05-17] MEDS: MAGNESIUM-BOLUS FROM THE BAG- 40 GM/1,000 ML IV.SOLN IV (08:18)
[2025-05-17] MEDS: MAGNESIUM SULFATE IN WATER 40 GM/1,000 ML IV.SOLN IV (08:47)
[2025-05-17] MEDS: GLYCERIN/WITCH HAZEL PADS 1 PAD TOPICAL (09:52)
[2025-05-17] MEDS: BENZOCAINE/MENTHOL 85 GRAM SPRAY BOTTLE 1 APPLIC TOPICAL (09:52)
[2025-05-17] MEDS: ACETAMINOPHEN 325 MG TABLET 650 MG PO ×2 (14:46→21:18)
[2025-05-17] MEDS: IBUPROFEN 600 MG TABLET PO ×2 (14:46→21:17)
[2025-05-18 00:15] VITALS: BP 135/73; PULSE 91; TEMP 36.5
[2025-05-18] MEDS: MAGNESIUM SULFATE IN WATER 40 GM/1,000 ML IV.SOLN IV (04:27)
[2025-05-18 04:30] VITALS: BP 135/81; PULSE 93; TEMP 36.6
[2025-05-18 06:28] LABS: Hematocrit 32.7 % (36.0-48.0); Hemoglobin 10.7 g/dL (12.0-16.0); Immature Granulocytes Abs Auto 0.13 10^3/uL (0.00-0.03); Immature Granulocytes Pct Auto 0.9 % (0.0-0.5); Lymphocytes Absolute Auto 2.9 10^3/uL (1.2-3.8); Mean Corpuscular HGB Conc 32.7 g/dL (29.9-35.2); Mean Corpuscular Hemoglobin 27.9 pg (26.7-34.0); Mean Corpuscular Volume 85.4 fL (81.0-99.0); Platelet Count 183 10^3/uL (150-450); Red Blood Count 3.83 10^6/uL (4.20-5.40); White Blood Count 14.0 10^3/uL (4.0-11.0)
[2025-05-18 08:27] VITALS: BP 133/82; PULSE 90
[2025-05-18] MEDS: IBUPROFEN 600 MG TABLET PO ×3 (08:32→20:22)
[2025-05-18] MEDS: MAGNESIUM HYDROXIDE 2,400 MG/10 ML ORAL.SUSP 2400 MG PO (08:32)
[2025-05-18] MEDS: ACETAMINOPHEN 325 MG TABLET 650 MG PO ×3 (08:32→20:21)
[2025-05-18 08:35] VITALS: TEMP 36.8
[2025-05-18] MEDS: GLYCERIN/WITCH HAZEL PADS 1 PAD TOPICAL (08:53)
--- NOTE | 2025-05-18 10:45 | PM.OBPN ---
OB - PN: Subj Subjective Patient comments: no complaints [place] status: doing well [place] feeding status: exclusively Exam Constitutional Vital Signs, click to edit/add: Last Vital Signs Temp 98.2 F 05/18/25 08:35 Pulse 90 05/18/25 08:27 Resp 16 05/18/25 08:35 BP 133/82 05/18/25 08:27 O2 Del Method Room Air 05/18/25 08:37 Common normals: no apparent distress General appearance: cooperative, comfortable and well kempt Orientation/consciousness: Yes awake, Yes oriented to person, Yes oriented to place and Yes oriented to time HENMT Common normals: normocephalic Eye Common normals: EOMs intact bilaterally Neck & C-Spine Common normals: full ROM and no lymphadenopathy General: normal visual inspection Thyroid: thyroid normal Lymph Lymphatic: no lymphadenopathy noted Chest Common normals: inspection of chest normal Respiratory Common normals: normal respiratory effort Effort & inspection: able to speak in complete sentences Auscultation: clear to auscultation bilaterally Cardio Common normals: regular rate and regular rhythm Rate: regular rate Rhythm: regular rhythm GI Common normals: Normal to inspection, nondistended, normoactive bowel sounds present Inspection: normal to inspection Palpation: soft Common normals: no CVA tenderness Back & Pelvis Common normals: no CVA tenderness Thoracic spine/upper back: normal to inspection Extremity Common normals: normal to inspection Neuro Common normals: oriented x3 Sensorium/orientation: awake, alert, oriented to person, oriented to place and oriented to time Psych Common normals: mental status grossly normal, thought process normal, cooperative, affect normal, speech normal, activity/motor behavior normal, denies hallucinations, denies homicidal ideation and denies suicidal ideation Appearance: grossly normal Attitude: calm Activity/motor behavior: appropriate eye contact Results Labs Labs: Short CBC 05/18/25 Range/Units 06:17 WBC 14.0 H (4.0-11.0) 10^3/uL Hgb 10.7 L (12.0-16.0) g/dL Hct 32.7 L (36.0-48.0) % Plt Count 183 (150-450) 10^3/uL Urinary Catheter Management Urinary Catheter Management Urethral: Cath placed during this visit: yes, but has since been removed by the nurse Insertion date: 05/17/25 Insertion time: 01:02 Removal date: 05/17/25 Removal time: 03:45 OB - PN: A/P Plan - Vaginal Delivery day: 1 Plan: routine care Time Spent with Patient Time: Total time spent is greater than 50% in coordination of care (as documented) at patient's floor/unit and/or counseling patient: Total time spent with greater than 50% in coordination of care (as documented) at patient's floor/unit and/or counseling patient: less than 15 minutes
[2025-05-18 15:38] VITALS: TEMP 36.1
[2025-05-18 15:39] VITALS: BP 124/75; PULSE 112
[2025-05-19] VITALS: BP 137/71; PULSE 96
[2025-05-19 00:05] VITALS: TEMP 36.8
[2025-05-19] MEDS: ACETAMINOPHEN 325 MG TABLET 650 MG PO ×2 (02:00→09:18)
[2025-05-19] MEDS: IBUPROFEN 600 MG TABLET PO ×3 (02:01→14:18)
--- NOTE | 2025-05-19 07:20 | W.PC.ACHO ---
Registration Status: ADM IN Primary Language: Preferred Language: Macedonian Report received from Amaury LOPEZ at 0700. Care assumed at this time. Active Medications Generic Name Dose Route Start Last Admin Trade Name Sonja PRN Reason Stop Dose Admin Acetaminophen 650 mg 05/17/25 05:46 05/19/25 02:00 Acetaminophen 325 Mg Tablet PO 650 mg Q6H PRN Administration Mild Pain Al Hydroxide/Mg Hydroxide 2,400 mg 05/17/25 05:46 05/18/25 08:32 Magnesium Hydroxide 2,400 Mg/10 Ml Oral.Susp PO 2,400 mg Q6H PRN Administration Dyspepsia Benzocaine/Menthol 1 applic 05/17/25 05:46 05/17/25 09:52 Benzocaine/Menthol 85 Gram [place] Bottle TOPICAL 1 applic Q2H PRN Administration Pain Calcium Gluconate 1,000 mg 05/17/25 07:00 Calcium Gluconate 1,000 Mg/10 Ml Vial IVP ONCE PRN MAGNESIUM TOXICITY Sodium Chloride 1,000 mls @ 125 mls/hr 05/16/25 17:30 05/18/25 08:20 Sodium Chloride 0.9% 1,000 Ml IV Infused .Q8H WILFREDO Infusion Magnesium Sulfate 40 gm in 1,000 mls @ 50 mls/hr 05/17/25 07:00 05/18/25 08:21 Magnesium Sulf 40 G/1,000 Ml IV Infused Q20H WILFREDO Infusion Ibuprofen 600 mg 05/17/25 05:46 05/19/25 02:01 Ibuprofen 600 Mg Tablet PO 600 mg Q6H PRN Administration Moderate Pain Measles/Mumps/Rubella Vaccine Live 0.5 ml 05/19/25 09:00 Measles,Mumps,Rubella Vacc/Pf 0.5 Ml Vial SQ 05/19/25 09:01 .ONCE ONE Nifedipine 60 mg 05/17/25 09:00 05/18/25 08:29 Nifedipine 30 Mg Tab.Er.24 PO 60 mg DAILY WILFREDO Administration Ondansetron HCl 4 mg 05/16/25 17:05 Ondansetron Pf 4 Mg/2 Ml Vial IV Q6H PRN Nausea And Vomiting Ondansetron HCl 4 mg 05/16/25 17:05 Ondansetron 4 Mg Rapdis Tablet SL Q6H PRN Nausea And Vomiting Senna 17.2 mg 05/17/25 20:00 Sennosides 8.6 Mg Tablet PO QHS PRN Constipation Simethicone 80 mg 05/17/25 05:46 Simethicone 80 Mg Tab.Chew PO QID PRN Abdominal Distention Temazepam 15 mg 05/17/25 05:46 Temazepam 15 Mg Capsule PO QHS PRN Sleep Witch Lilly/Glycerin 1 pad 05/17/25 05:46 05/18/25 08:53 Glycerin/Witch Lilly Pads TOPICAL 1 pad Q2H PRN Administration Pain Respiratory Oxygen Delivery Method Room Air Oxygen Delivery Method Room Air Cardiology Heart Sounds Regular,Strong Heart Sounds Regular Renal Bladder Pattern Continent Bladder Pattern Continent Catheter Urinary Catheter Date of 05/17/25 Insertion [Urethral] Urinary Catheter Time of 01:02 Insertion [Urethral] Date Urinary Catheter Removed 05/17/25 [Urethral] Time Urinary Catheter 03:45 Discontinued [Urethral]
--- NOTE | 2025-05-19 07:44 | PM.OBPN ---
OB - PN: Subj Subjective Patient comments: no complaints and pain well controlled [place] status: doing well Exam Constitutional Vital Signs, click to edit/add: Last Vital Signs Temp 98.2 F 05/19/25 00:05 Pulse 96 H 05/19/25 00:00 Resp 16 05/19/25 00:05 BP 137/71 05/19/25 00:00 O2 Del Method Room Air 05/19/25 00:05 Documenting provider has reviewed patient's vital signs: yes Common normals: no apparent distress Respiratory Common normals: normal respiratory effort and clear to auscultation bilaterally Cardio Common normals: regular rate and regular rhythm GI Common normals: Normal to inspection, nondistended, normoactive bowel sounds present Extremity Common normals: no clubbing, cyanosis or edema and no calf tenderness Urinary Catheter Management Urinary Catheter Management Urethral: Cath placed during this visit: yes, but has since been removed by the nurse Insertion date: 05/17/25 Insertion time: 01:02 Removal date: 05/17/25 Removal time: 03:45 OB - PN: A/P Plan - Vaginal Delivery day: 2 Plan: routine care, discharge home and other (fu 1wk) Time Spent with Patient Time: Total time spent is greater than 50% in coordination of care (as documented) at patient's floor/unit and/or counseling patient: Total time spent with greater than 50% in coordination of care (as documented) at patient's floor/unit and/or counseling patient: less than 15 minutes
[2025-05-19 08:40] VITALS: BP 128/79; PULSE 93
[2025-05-19 09:15] VITALS: TEMP 36.8
[2025-05-19 15:30] VITALS: TEMP 36.8
[2025-05-19 15:38] VITALS: BP 138/71; PULSE 96
== END 2025-05-19 18:40 | disposition home or self-care (01) | DRG 807 ==
LOC: FBCO 18:42 → FBC 18:42
PROVIDERS: Admitting Provider Obstetrics & Gynecology; Visit Provider Obstetrics & Gynecology
DX: O14.14 Severe pre-eclampsia complicating childbirth (principal); Z37.0 Single live birth; O24.424 Gestational diabetes mellitus in childbirth, insulin controlled; O70.1 Second degree perineal laceration during delivery; O69.81X0 Labor and delivery complicated by cord around neck, without compression, not applicable or unspecified; Z3A.00 Weeks of gestation of pregnancy not specified; Z90.49 Acquired absence of other specified parts of digestive tract; Z3A.36 36 weeks gestation of pregnancy
CPT/HCPCS: 36415; 51702; 59025; 59050; 59410; 80307; 82565; 82570; 84156; 84450; 84460; 84520; 84550; 85025; 85384; 85610; 85730; 86850; 86900; 86901; J0290; J0665; J2795; J3010; J3475